=== PATIENT | male | born 1945 | race Caucasian/White ===

== ENCOUNTER 2017-01-09 11:28 | Inpatient (IN) | payer MEDICARE, OTHER ==
--- NOTE | 2017-01-09 12:08 | ED ---
General Adult HPI - General Chief complaint: Shortness of Breath Stated complaint: Diff Breathing Time Seen by Provider: 01/09/17 11:47 Source: patient, RN notes reviewed, old records reviewed Mode of arrival: ambulatory Limitations: no limitations - History of Present Illness Initial comments: 71-year-old male presents with a one-week history of cough and difficulty breathing. Patient states that he initially felt he had a cold, had nasal congestion and mildly productive cough. This is felt to improve. Patient does have history of breast pneumonia and congestive heart failure. Denies fever. Denies chest pain. Cough at this time is primarily dry. Patient does have worsening shortness of breath with activity. Denies lower extremity swelling. Denies any recent changes to his medication. He is currently taking Lasix. - Related Data Home Medications Medication Instructions Recorded Confirmed Aspirin 81 mg PO DAILY 01/04/16 01/09/17 Atorvastatin [Lipitor] 80 mg PO DAILY 01/04/16 01/09/17 Cholecalciferol [Vitamin D3] 2,000 unit PO DAILY 01/04/16 01/09/17 Desloratadine 5 mg PO DAILY 01/04/16 01/09/17 Dulaglutide [Trulicity] 1.5 mg SQ MO 01/04/16 01/09/17 Fenofibrate 160 mg PO AC-SUPPER 01/04/16 01/09/17 Ferrous Sulfate [Iron (65 MG 325 mg PO DAILY 01/04/16 01/09/17 Elemental)] Glimepiride [Amaryl] 0.5 mg PO AC-BRKFST 01/04/16 01/09/17 Krill Oil 500 mg PO DAILY 01/04/16 01/09/17 L.acidoph,Paracasei, B.lactis 1 cap PO DAILY 01/04/16 01/09/17 [Probiotic] Celecoxib [CeleBREX] 200 mg PO DAILY PRN 01/09/17 01/09/17 Insulin Lispro [humaLOG Kwikpen] 10 unit SQ AC-BID 01/09/17 01/09/17 Lisinopril [Zestril] 10 mg PO BID 01/09/17 01/09/17 Multivitamins, Thera [Multivitamin 1 tab PO DAILY 01/09/17 01/09/17 (formulary)] Previous Rx's Medication Instructions Recorded Metoprolol Tartrate [Lopressor] 25 mg PO BID #60 tab 01/07/16 Furosemide [Lasix] 20 mg PO DAILY #30 tab 01/08/16 Allergies Allergy/AdvReac Type Severity Reaction Status Date / Time No Known Allergies Allergy Verified 01/09/17 12:30 Review of Systems ROS Statement: Those systems with pertinent positive or pertinent negative responses have been documented in the HPI. ROS Other: All systems not noted in ROS Statement are negative. Past Medical History Past Medical History: Diabetes Mellitus, Eye Disorder, Hyperlipidemia, Hypertension, Osteoarthritis (OA), Pneumonia Additional Past Medical History / Comment(s): BEGINNINGS OF CATARACTS, HAYFEVER History of Any Multi-Drug Resistant Organisms: None Reported Past Surgical History: Adenoidectomy, Tonsillectomy Additional Past Surgical History / Comment(s): CARPAL TUNNEL, COLONOSCOPY Past Anesthesia/Blood Transfusion Reactions: No Reported Reaction Past Psychological History: No Psychological Hx Reported Smoking Status: Former smoker Past Alcohol Use History: Occasional Past Drug Use History: None Reported - Past Family History Father Family Medical History: Cancer, Diabetes Mellitus Additional Family Medical History / Comment(s): BLADDER CANCER Mother Family Medical History: Congestive Heart Failure (CHF) Additional Family Medical History / Comment(s): AT AGE 68 General Exam Limitations: no limitations Course Vital Signs 01/09/17 01/09/17 01/09/17 11:31 12:36 13:41 Temperature 97.1 F L Pulse Rate 81 71 68 Respiratory 22 20 20 Rate Blood Pressure 197/77 176/85 151/67 O2 Sat by Pulse 89 L 94 L 95 Oximetry EKG Findings - EKG Comments: EKG Findings:: EKG shows normal sinus rhythm, ventricular rate 75, [place] interval 208, QRS duration 96, QTC 464, no signs of ischemia Medical Decision Making - Medical Decision Making 71-year-old male presenting with worsening dyspnea. Patient does admit to orthopnea, sleeps in a reclining chair. Denies PND. On examination patient has bilateral fine rales. Signs of ischemia. Chest x-ray shows mild central venous congestion, right pleural effusion, cardiomegaly. Left from 1 year ago showed an ejection fraction 60%, there was left ventricular hypertrophy. Laboratory studies reveal elevated serum creatinine at 2.04, however this is a patient's baseline. Initial troponin is negative. BNP is 5780. Patient is given aspirin and Lasix in the emergency department. He will be admitted for further diuresis and cardiology evaluation. Diagnosis: Congestive heart failure exacerbation, chronic kidney disease - Lab Data Result diagrams: 01/09/17 12:06 01/09/17 12:06 Lab Results 01/09/17 01/09/17 01/09/17 Range/Units 12:06 12:06 12:06 WBC 6.9 (3.8-10.6) k/uL RBC 3.73 L (4.30-5.90) m/uL Hgb 11.3 L (13.0-17.5) gm/dL Hct 34.9 L (39.0-53.0) % MCV 93.6 (80.0-100.0) fL MCH 30.3 (25.0-35.0) pg MCHC 32.4 (31.0-37.0) g/dL RDW 13.9 (11.5-15.5) % Plt Count 184 (150-450) k/uL Neutrophils % 78 % Lymphocytes % 13 % Monocytes % 5 % Eosinophils % 3 % Basophils % 0 % Neutrophils # 5.4 (1.3-7.7) k/uL Lymphocytes # 0.9 L (1.0-4.8) k/uL Monocytes # 0.4 (0-1.0) k/uL Eosinophils # 0.2 (0-0.7) k/uL Basophils # 0.0 (0-0.2) k/uL PT (9.0-12.0) sec INR (<1.2) APTT (22.0-30.0) sec Sodium 143 (137-145) mmol/L Potassium 4.4 (3.5-5.1) mmol/L Chloride 105 (98-107) mmol/L Carbon Dioxide 24 (22-30) mmol/L Anion Gap 14 mmol/L BUN 47 H (9-20) mg/dL Creatinine 2.04 H (0.66-1.25) mg/dL Est GFR (MDRD) Af Amer 39 (>60 ml/min/1.73 sqM) Est GFR (MDRD) Non-Af 32 (>60 ml/min/1.73 sqM) Glucose 245 H (74-99) mg/dL Plasma Lactic Acid Guy (0.7-2.0) mmol/L Calcium 9.2 (8.4-10.2) mg/dL Magnesium 1.9 (1.6-2.3) mg/dL Total Bilirubin 1.0 (0.2-1.3) mg/dL AST 44 (17-59) U/L ALT 49 (21-72) U/L Alkaline Phosphatase 55 (38-126) U/L Total Creatine Kinase 59 (55-170) U/L CK-MB (CK-2) 1.2 (0.0-2.4) ng/mL CK-MB (CK-2) Rel Index 2.0 Troponin I 0.024 (0.000-0.034) ng/mL NT-Pro-B Natriuret Pep pg/mL Total Protein 7.0 (6.3-8.2) g/dL Albumin 4.0 (3.5-5.0) g/dL 01/09/17 01/09/17 01/09/17 Range/Units 12:06 12:06 12:06 WBC (3.8-10.6) k/uL RBC (4.30-5.90) m/uL Hgb (13.0-17.5) gm/dL Hct (39.0-53.0) % MCV (80.0-100.0) fL MCH (25.0-35.0) pg MCHC (31.0-37.0) g/dL RDW (11.5-15.5) % Plt Count (150-450) k/uL Neutrophils % % Lymphocytes % % Monocytes % % Eosinophils % % Basophils % % Neutrophils # (1.3-7.7) k/uL Lymphocytes # (1.0-4.8) k/uL Monocytes # (0-1.0) k/uL Eosinophils # (0-0.7) k/uL Basophils # (0-0.2) k/uL PT 11.8 (9.0-12.0) sec INR 1.2 H (<1.2) APTT 23.9 (22.0-30.0) sec Sodium (137-145) mmol/L Potassium (3.5-5.1) mmol/L Chloride (98-107) mmol/L Carbon Dioxide (22-30) mmol/L Anion Gap mmol/L BUN (9-20) mg/dL Creatinine (0.66-1.25) mg/dL Est GFR (MDRD) Af Amer (>60 ml/min/1.73 sqM) Est GFR (MDRD) Non-Af (>60 ml/min/1.73 sqM) Glucose (74-99) mg/dL Plasma Lactic Acid Guy 1.7 (0.7-2.0) mmol/L Calcium (8.4-10.2) mg/dL Magnesium (1.6-2.3) mg/dL Total Bilirubin (0.2-1.3) mg/dL AST (17-59) U/L ALT (21-72) U/L Alkaline Phosphatase (38-126) U/L Total Creatine Kinase (55-170) U/L CK-MB (CK-2) (0.0-2.4) ng/mL CK-MB (CK-2) Rel Index Troponin I (0.000-0.034) ng/mL NT-Pro-B Natriuret Pep 5780 pg/mL Total Protein (6.3-8.2) g/dL Albumin (3.5-5.0) g/dL Disposition Clinical Impression: Diastolic congestive heart failure Disposition: ADMITTED IP TO THIS [facility] Condition: Stable Referrals: Jordan Patel III, MD [Primary Care Provider] - 1-2 days Decision to Admit Reason: Admit from EC Decision Date: 01/09/17 Decision Time: 14:06
[2017-01-09 12:19] LABS: Basophils % (A) 0 %; CH 30.5; CHCM 32.8; Eosinophils # (A) 0.2 k/uL (0-0.7); Eosinophils % (A) 3 %; HCT 34.9 % (39.0-53.0); HDW 2.94; HGB 11.3 gm/dL (13.0-17.5); Luc # (Auto) 0.11; Luc % (Auto) 2; Lymphocytes # (A) 0.9 k/uL (1.0-4.8); Lymphocytes % (A) 13 %; MCH 30.3 pg (25.0-35.0); MCHC 32.4 g/dL (31.0-37.0); MCV 93.6 fL (80.0-100.0); Mean Platelet Volume 7.4; Monocytes # (A) 0.4 k/uL (0-1.0); Monocytes % (A) 5 %; Neutrophils # (A) 5.4 k/uL (1.3-7.7); Neutrophils % (A) 78 %; RBC 3.73 m/uL (4.30-5.90); RDW 13.9 % (11.5-15.5); WBC 6.9 k/uL (3.8-10.6); WBC (Perox) 6.97
[2017-01-09 12:35] LABS: INR 1.2 (<1.2); Partial Thromboplastin Time 23.9 sec (22.0-30.0); Prothrombin Time 11.8 sec (9.0-12.0)
[2017-01-09 12:39] LABS: Calcium 9.2 mg/dL (8.4-10.2); Magnesium 1.9 mg/dL (1.6-2.3); Potassium 4.4 mmol/L (3.5-5.1)
--- NOTE | 2017-01-09 12:55 | XR ---
EXAMINATION TYPE: XR chest 2V DATE OF EXAM: 01/09/2017 COMPARISON: 01/04/2016 TECHNIQUE: PA and lateral views submitted. HISTORY: Shortness of breath FINDINGS: Cardiomegaly and nodule in the right upper lobe are stable. Arthropathy of the shoulders. No pneumoth orax. Pleural thickening or tiny effusion suspected. Degenerative change of the spine. IMPRESSION: 1. Tiny right pleural effusion suspected with right upper lobe nodule and cardiomegaly stable in appe arance. There may be some calcification along the pericardium which can be associated with calcific p ericarditis. 2. Correlate for mild central venous congestion.
[2017-01-09 12:56] LABS: Creatine Kinase MB 1.2 ng/mL (0.0-2.4); Troponin I 0.024 ng/mL (0.000-0.034)
[2017-01-09] MEDS ORDERED: FUROSEMIDE 10 MG/ML 4 ML VIAL IV STA (13:09)
[2017-01-09] MEDS ORDERED: ASPIRIN 325 MG TAB PO STA (13:09)
[2017-01-09] MEDS ORDERED: NALOXONE 0.4 MG/ML 1 ML VIAL IV PRN (13:57)
[2017-01-09] MEDS ORDERED: ACETAMINOPHEN TAB 325 MG TAB PO PRN (13:57)
--- NOTE | 2017-01-09 17:07 | P.HPIM ---
History of Present Illness 71-year-old gentleman came in with complaints of short of breath going on about for about a week. Patient started having upper respiratory tract like symptoms since then patient the was having shortness of breath progressively worse for about a week. Patient denied any fever, chills does have cough only brings up minimal phlegm whitish in color, denied any significant orthopnea or paroxysmal nocturnal dyspnea. Although chest x-ray did not show any significant pneumonic process but did show changes consistent with pulmonary edema, patient had normal ejection fraction about any ago at that time I believe he was treated for diastolic dysfunction heart failure uses 40 mg of Lasix at home. He denied any increased swelling in the legs or recent weight gain. Patient denied any chest pain and palpitations. Patient is morbidly obese never tested for sleep apnea in the past Review of Systems REVIEW OF SYSTEMS: CONSTITUTIONAL: No fever, no malaise, no fatigue. HEENT: No recent visual problems or hearing problems. Denied any sore throat. CARDIOVASCULAR: No chest pain, orthopnea, PND, no palpitations, no syncope. PULMONARY: As mentioned in HPI GASTROINTESTINAL: No diarrhea, no nausea, no vomiting, no abdominal pain. Normoactive bowel sounds. NEUROLOGICAL: No headaches, no weakness, no numbness. HEMATOLOGICAL: Denies any bleeding or petechiae. GENITOURINARY: Denies any burning micturition, frequency, or urgency. MUSCULOSKELETAL/RHEUMATOLOGICAL: Denies any joint pain, swelling, or any muscle pain. ENDOCRINE: Denies any polyuria or polydipsia. The rest of the 14-point review of systems is negative. Past Medical History Past Medical History: Diabetes Mellitus, Eye Disorder, Hyperlipidemia, Hypertension, Osteoarthritis (OA), Pneumonia Additional Past Medical History / Comment(s): BEGINNINGS OF CATARACTS, HAYFEVER History of Any Multi-Drug Resistant Organisms: None Reported Past Surgical History: Adenoidectomy, Tonsillectomy Additional Past Surgical History / Comment(s): CARPAL TUNNEL, COLONOSCOPY, egd w /bx"neg" Past Anesthesia/Blood Transfusion Reactions: No Reported Reaction Smoking Status: Former smoker - Past Family History Father Family Medical History: Cancer, Diabetes Mellitus Additional Family Medical History / Comment(s): BLADDER CANCER Mother Family Medical History: Congestive Heart Failure (CHF) Additional Family Medical History / Comment(s): AT AGE 68 Medications and Allergies Home Medications Medication Instructions Recorded Confirmed Type Aspirin 81 mg PO DAILY 01/04/16 01/09/17 History Atorvastatin [Lipitor] 80 mg PO DAILY 01/04/16 01/09/17 History Cholecalciferol [Vitamin D3] 2,000 unit PO DAILY 01/04/16 01/09/17 History Desloratadine 5 mg PO DAILY 01/04/16 01/09/17 History Dulaglutide [Trulicity] 1.5 mg SQ MO 01/04/16 01/09/17 History Fenofibrate 160 mg PO AC-SUPPER 01/04/16 01/09/17 History Ferrous Sulfate [Iron (65 MG 325 mg PO DAILY 01/04/16 01/09/17 History Elemental)] Glimepiride [Amaryl] 0.5 mg PO AC-BRKFST 01/04/16 01/09/17 History Krill Oil 500 mg PO DAILY 01/04/16 01/09/17 History L.acidoph,Paracasei, B.lactis 1 cap PO DAILY 01/04/16 01/09/17 History [Probiotic] Metoprolol Tartrate [Lopressor] 25 mg PO BID #60 tab 01/07/16 01/09/17 Rx Furosemide [Lasix] 20 mg PO DAILY #30 tab 01/08/16 01/09/17 Rx Celecoxib [CeleBREX] 200 mg PO DAILY PRN 01/09/17 01/09/17 History Insulin Lispro [humaLOG Kwikpen] 10 unit SQ AC-BID 01/09/17 01/09/17 History Lisinopril [Zestril] 10 mg PO BID 01/09/17 01/09/17 History Multivitamins, Thera [Multivitamin 1 tab PO DAILY 01/09/17 01/09/17 History (formulary)] Allergies Allergy/AdvReac Type Severity Reaction Status Date / Time No Known Allergies Allergy Verified 01/09/17 12:30 Physical Exam Vitals: Vital Signs Temp Pulse Resp BP Pulse Ox 01/09/17 16:53 98.1 F 68 20 165/79 97 01/09/17 15:42 70 18 158/75 94 L 01/09/17 14:32 68 20 159/77 95 01/09/17 14:30 97.6 F 68 15 159/77 96 01/09/17 13:41 68 20 151/67 95 10/16/17 12:36 71 20 176/85 94 L 01/09/17 11:31 97.1 F L 81 22 197/77 89 L Intake and Output 01/09/17 01/09/17 01/09/17 06:59 14:59 22:59 Output Total 600 Balance -600 Output: Urine 600 Other: Weight 103.419 kg Patient Weight 01/10/17 06:59 Weight 103.419 kg PHYSICAL EXAMINATION: GENERAL: The patient is alert and oriented x3, not in any acute distress. Well developed, well nourished. HEENT: Pupils are round and equally reacting to light. EOMI. No scleral icterus. No conjunctival pallor. Normocephalic, atraumatic. No pharyngeal erythema. No thyromegaly. CARDIOVASCULAR: S1 and S2 present. No murmurs, rubs, or gallops. There may be an S3 arrest and S4 I did not appreciate any JVD although patient has the Contour and patient is sitting upright on the side of the bed PULMONARY: Rhonchorous breath sounds probable crackles bilaterally ABDOMEN: Soft, nontender, nondistended, normoactive bowel sounds. No palpable organomegaly. MUSCULOSKELETAL: No joint swelling or deformity. EXTREMITIES: No cyanosis, clubbing, or pedal edema. NEUROLOGICAL: Gross neurological examination did not reveal any focal deficits. SKIN: No rashes. Results CBC & Chem 7: 01/09/17 12:06 01/09/17 12:06 Labs: Abnormal Lab Results - Last 24 Hours (Table) 01/09/17 01/09/17 01/09/17 Range/Units 12:06 12:06 12:06 RBC 3.73 L (4.30-5.90) m/uL Hgb 11.3 L (13.0-17.5) gm/dL Hct 34.9 L (39.0-53.0) % Lymphocytes # 0.9 L (1.0-4.8) k/uL INR 1.2 H (<1.2) BUN 47 H (9-20) mg/dL Creatinine 2.04 H (0.66-1.25) mg/dL Glucose 245 H (74-99) mg/dL Assessment and Plan Plan: #1 acute hypoxic respiratory failure: Possibility of congestive heart failure exacerbation probably tonic diastolic dysfunction with acute exacerbation patient was started on IV Lasix which will be continued. Lisinopril will be continued as well as his kidney function appears to be chronic #2 chronic kidney disease stage III: Baseline creatinine is around 2 for about any year, patient may have a competent of acute renal dysfunction from can start failure exacerbation expected to improve with Lasix will need to monitor basic metabolic profile closely. Patient may have diabetic nephropathy. #3 type 2 diabetes mellitus: Uncontrolled blood sugars patient will be started on his home insulin regimen titrate depending on his sliding scale needs. #4 moderate obesity: Patient need to be tested for sleep apnea as an outpatient #5 hypertension #6 severe osteoarthritis For above-mentioned chronic medical problems appropriate home medications will be continued, close clinical monitoring repeat BMP tomorrow.
[2017-01-09 19:32] LABS: Creatine Kinase MB 1.2 ng/mL (0.0-2.4); Troponin I 0.034 ng/mL (0.000-0.034)
[2017-01-09] MEDS: FUROSEMIDE 10 MG/ML 4 ML VIAL IV SCH (20:53)
[2017-01-09] MEDS: METOPROLOL TARTRATE 25 MG TAB PO SCH (20:54)
[2017-01-09] MEDS: FENOFIBRATE 160 MG TAB PO SCH (20:54)
[2017-01-09] MEDS: LISINOPRIL 10 MG TAB PO SCH (20:54)
[2017-01-09 20:57] LABS: Glucose,Whole Blood 154 mg/dL (75-99)
[2017-01-09] MEDS: INSULIN LISPRO (humaLOG) 300 UNIT/3 ML VIAL SQ SCH (23:40)
[2017-01-10 00:22] LABS: Creatine Kinase MB 1.3 ng/mL (0.0-2.4); Troponin I 0.034 ng/mL (0.000-0.034)
[2017-01-10 06:10] LABS: Glucose,Whole Blood 125 mg/dL (75-99)
[2017-01-10 06:46] LABS: Basophils % (A) 1 %; CH 30.4; CHCM 32.6; Eosinophils # (A) 0.5 k/uL (0-0.7); Eosinophils % (A) 7 %; HCT 35.5 % (39.0-53.0); HDW 2.92; HGB 11.4 gm/dL (13.0-17.5); Luc % (Auto) 1; Lymphocytes # (A) 1.4 k/uL (1.0-4.8); Lymphocytes % (A) 19 %; MCH 30.2 pg (25.0-35.0); MCHC 32.2 g/dL (31.0-37.0); MCV 93.9 fL (80.0-100.0); Mean Platelet Volume 7.2; Monocytes # (A) 0.4 k/uL (0-1.0); Monocytes % (A) 6 %; Neutrophils # (A) 4.9 k/uL (1.3-7.7); Neutrophils % (A) 67 %; RBC 3.78 m/uL (4.30-5.90); WBC 7.3 k/uL (3.8-10.6); WBC (Perox) 7.25
[2017-01-10 07:08] LABS: Calcium 9.5 mg/dL (8.4-10.2); Potassium 4.1 mmol/L (3.5-5.1); Total Bilirubin 0.9 mg/dL (0.2-1.3); Total Protein 7.2 g/dL (6.3-8.2)
[2017-01-10] MEDS: ASPIRIN 81 MG PO SCH (08:06)
[2017-01-10] MEDS: METOPROLOL TARTRATE 25 MG TAB PO SCH ×2 (08:06→20:50)
[2017-01-10] MEDS: ATORVASTATIN 80 MG TAB PO SCH (08:06)
[2017-01-10] MEDS: LISINOPRIL 10 MG TAB PO SCH ×2 (08:06→20:50)
[2017-01-10] MEDS: FUROSEMIDE 10 MG/ML 4 ML VIAL IV SCH ×2 (08:07→17:02)
[2017-01-10] MEDS: INSULIN LISPRO (humaLOG) 300 UNIT/3 ML VIAL SQ SCH ×2 (08:07→17:02)
--- NOTE | 2017-01-10 10:57 | ECHOF ---
Referral Reason:CHF MEASUREMENTS -------- HEIGHT: 167.6 cm WEIGHT: 99.8 kg BP: 148/76 RVIDd: 3.7 cm (< 3.3) IVSd: 1.3 cm (0.6 - 1.1) LVIDd: 4.7 cm (3.9 - 5.3) LVPWd: 1.3 cm (0.6 - 1.1) IVSs: 2.0 cm LVIDs: 3.2 cm LVPWs: 1.9 cm LA Diam: 4.5 cm (2.7 - 3.8) LAESV Index (A-L): 62.79 ml/m Ao Diam: 3.2 cm (2.0 - 3.7) AV Cusp: 1.9 cm (1.5 - 2.6) MV E Hunter: 1.76 m/s MV DecT: 361 ms MV A Hunter: 1.20 m/s MV E/A Ratio: 1.47 AV maxP.27 mmHg AV meanP.73 mmHg AR PHT: 554 ms RAP: 5.00 mmHg RVSP: 72.43 mmHg FINDINGS -------- Sinus rhythm. This was a technically good study. The left ventricular size is normal. There is mild concentric left ventricular hypertrophy. Overall left ventricular systolic function is normal with, an EF between 55 - 60 %. The right ventricle is mildly enlarged. LA is severely dilated >40 ml/m2 The right atrium is normal in size. There is moderate aortic valve sclerosis. There is mild aortic regurgitation. There is mild aortic stenosis present. Peak/mean gradient across the Aortic Valve is 16.27mmHg / 7.73mmHg. The mitral valve leaflets are moderately thickened. Moderate mitral annular calcification present. Mild mitral regurgitation is present. The peak and mean MV gradients are 16.13mmHg 5.13mmHg as measured by doppler. Mild mitral stenosis. [id number] tricuspid regurgitation present. There is severe pulmonary hypertension. The right ventricular systolic pressure, as measured by Doppler, is 72.43mmHg. The pulmonic valve was not well visualized. The aortic root size is normal. IVC Not well visulized. There is no pericardial effusion. CONCLUSIONS -------- 1. Sinus rhythm. 2. There is mild aortic regurgitation. 3. There is mild aortic stenosis present. 4. Peak/mean gradient across the Aortic Valve is 16.27mmHg / 7.73mmHg. 5. The mitral valve leaflets are moderately thickened. 6. Moderate mitral annular calcification present. 7. Mild mitral regurgitation is present. 8. The peak and mean MV gradients are 16.13mmHg 5.13mmHg as measured by doppler. 9. Mild mitral stenosis. 10. [id number] tricuspid regurgitation present. 11. There is severe pulmonary hypertension. 12. This was a technically good study. 13. The right ventricular systolic pressure, as measured by Doppler, is 72.43mmHg. 14. The pulmonic valve was not well visualized. 15. The aortic root size is normal. 16. IVC Not well visulized. 17. There is no pericardial effusion. 18. The left ventricular size is normal. 19. There is mild concentric left ventricular hypertrophy. 20. Overall left ventricular systolic function is normal with, an EF between 55 - 60 %. 21. The right ventricle is mildly enlarged. 22. LA is severely dilated >40 ml/m2 23. The right atrium is normal in size. 24. There is moderate aortic valve sclerosis. BLANCHARD GRINDER OPERATOR: Vivian Sims RDCS
--- NOTE | 2017-01-10 11:19 | P.CRDCN ---
History of Present Illness Consult date: 01/10/17 Requesting physician: Candido Do Consult reason: congestive heart failure Chief complaint: Shortness of breath History of present illness: This is a 71-year-old gentleman who follows with Dr. Deng in the office, he has a known history of hypertension, diabetes, hyperlipidemia, renal insufficiency, congestive heart failure, he presents to the hospital with symptoms of progressively worsening shortness of breath. Patient states that since last Monday, he initially felt as though he may be developing a pneumonia , he was short of breath and had a nonproductive cough similar to his presentation with pneumonia in the past. Symptoms progressively worsened, patient states he was sleeping in his lazy boy chair because he could not breathe when he would lie flat. He also states that walking out to his mailbox he would become extremely short of breath. He noticed increased swelling in his abdomen, not so much edema in his legs. Patient's last visit to the hospital was in December 2015 at which time he was seen in consultation by Dr. Deng an echocardiogram with Doppler study was performed on that visit which revealed an ejection fraction of 60-65%, moderate concentric LVH. Chest x-ray on admission here revealed mild central venous congestion, tiny right pleural effusion with suspected right upper lobe nodule, cardiomegaly. EKG shows a normal sinus rhythm with no acute changes. Echocardiogram with Doppler study performed here revealed an ejection fraction of 55-60%, Left atrium is severely dilated, mild to moderate tricuspid regurg, severe pulmonary hypertension. White blood cell count 7.3, hemoglobin 11.4, platelet count 223. Sodium 141, potassium 4.1, BUN 45, creatinine 2.1. Magnesium level I.9, troponins 0.024, 0.034, 0.034. BNP level 5780. Blood pressure on arrival here 197/77 with a heart rate in the 80s, 89% on room air. Blood pressure this morning 156/60 with a heart rate in the 60s, temperature 98.8, 94% on 2 L of oxygen. Past Medical History Past Medical History: Diabetes Mellitus, Eye Disorder, Hyperlipidemia, Hypertension, Osteoarthritis (OA), Pneumonia Additional Past Medical History / Comment(s): BEGINNINGS OF CATARACTS, HAYFEVER History of Any Multi-Drug Resistant Organisms: None Reported Past Surgical History: Adenoidectomy, Tonsillectomy Additional Past Surgical History / Comment(s): CARPAL TUNNEL, COLONOSCOPY, egd w /bx"neg" Past Anesthesia/Blood Transfusion Reactions: No Reported Reaction Smoking Status: Former smoker - Past Family History Father Family Medical History: Cancer, Diabetes Mellitus Additional Family Medical History / Comment(s): BLADDER CANCER Mother Family Medical History: Congestive Heart Failure (CHF) Additional Family Medical History / Comment(s): AT AGE 68 Medications and Allergies Home Medications Medication Instructions Recorded Confirmed Type Aspirin 81 mg PO DAILY 01/04/16 01/09/17 History Atorvastatin [Lipitor] 80 mg PO DAILY 01/04/16 01/09/17 History Cholecalciferol [Vitamin D3] 2,000 unit PO DAILY 01/04/16 01/09/17 History Desloratadine 5 mg PO DAILY 01/04/16 01/09/17 History Dulaglutide [Trulicity] 1.5 mg SQ MO 01/04/16 01/09/17 History Fenofibrate 160 mg PO AC-SUPPER 01/04/16 01/09/17 History Ferrous Sulfate [Iron (65 MG 325 mg PO DAILY 01/04/16 01/09/17 History Elemental)] Glimepiride [Amaryl] 0.5 mg PO AC-BRKFST 01/04/16 01/09/17 History Krill Oil 500 mg PO DAILY 01/04/16 01/09/17 History L.acidoph,Paracasei, B.lactis 1 cap PO DAILY 01/04/16 01/09/17 History [Probiotic] Metoprolol Tartrate [Lopressor] 25 mg PO BID #60 tab 01/07/16 01/09/17 Rx Furosemide [Lasix] 20 mg PO DAILY #30 tab 01/08/16 01/09/17 Rx Celecoxib [CeleBREX] 200 mg PO DAILY PRN 01/09/17 01/09/17 History Insulin Lispro [humaLOG Kwikpen] 10 unit SQ AC-BID 01/09/17 01/09/17 History Lisinopril [Zestril] 10 mg PO BID 01/09/17 01/09/17 History Multivitamins, Thera [Multivitamin 1 tab PO DAILY 01/09/17 01/09/17 History (formulary)] Allergies Allergy/AdvReac Type Severity Reaction Status Date / Time No Known Allergies Allergy Verified 01/09/17 12:30 Physical Exam Vitals: Vital Signs Temp Pulse Pulse Pulse Resp BP BP 01/10/17 08:00 98.8 F 66 18 157/66 01/10/17 04:00 96.3 F L 67 18 148/76 01/10/17 00:00 96.9 F L 70 75 18 184/82 01/09/17 20:16 98.5 F 75 75 18 178/85 01/09/17 19:05 98.5 F 71 18 166/75 01/09/17 18:15 72 18 154/73 01/09/17 16:53 98.1 F 68 20 165/79 01/09/17 15:42 70 18 158/75 01/09/17 14:32 68 20 159/77 01/09/17 14:30 97.6 F 68 15 159/77 01/09/17 13:41 68 20 151/67 01/09/17 12:36 71 20 176/85 01/09/17 11:31 97.1 F L 81 22 197/77 Pulse Ox 01/10/17 08:00 94 L 01/10/17 04:00 92 L 01/10/17 00:00 96 01/09/17 20:16 95 01/09/17 19:05 96 01/09/17 18:15 95 01/09/17 16:53 97 01/09/17 15:42 94 L 01/09/17 14:32 95 01/09/17 14:30 96 01/09/17 13:41 95 01/09/17 12:36 94 L 01/09/17 11:31 89 L Intake and Output 01/09/17 01/10/17 01/10/17 22:59 06:59 14:59 Intake Total 200 Output Total 600 1650 Balance -600 -1650 200 Intake: Oral 200 Output: Urine 600 1650 Other: Voiding Method Urinal Urinal # Voids 1 1 Weight 100.1 kg PHYSICAL EXAMINATION: HEENT: Head is atraumatic, normocephalic. Pupils equal, round. Neck is supple. There is elevated jugular venous pressure. HEART EXAMINATION: Heart S1 and S2 systolic murmur is heard. CHEST EXAMINATION: Lungs reveal diminished air entry to bilateral bases ABDOMEN: Firm, mildly distended, . Bowel sounds are heard. No organomegaly noted. EXTREMITIES: 2+ peripheral pulses with trace evidence of peripheral edema and no calf tenderness noted. NEUROLOGIC patient is awake, alert and oriented -3. . Results 01/10/17 06:30 01/10/17 06:30 Cardiac Enzymes 01/09/17 01/09/17 01/09/17 Range/Units 12:06 12:06 18:19 AST 44 (17-59) U/L CK-MB (CK-2) 1.2 1.2 (0.0-2.4) ng/mL Troponin I 0.024 0.034 (0.000-0.034) ng/mL 01/09/17 01/10/17 Range/Units 23:27 06:30 AST 35 (17-59) U/L CK-MB (CK-2) 1.3 (0.0-2.4) ng/mL Troponin I 0.034 (0.000-0.034) ng/mL Coagulation 01/09/17 Range/Units 12:06 PT 11.8 (9.0-12.0) sec APTT 23.9 (22.0-30.0) sec CBC 01/09/17 01/10/17 Range/Units 12:06 06:30 WBC 6.9 7.3 (3.8-10.6) k/uL RBC 3.73 L 3.78 L (4.30-5.90) m/uL Hgb 11.3 L 11.4 L (13.0-17.5) gm/dL Hct 34.9 L 35.5 L (39.0-53.0) % Plt Count 184 223 (150-450) k/uL Comprehensive Metabolic Panel 01/09/17 01/10/17 Range/Units 12:06 06:30 Sodium 143 141 (137-145) mmol/L Potassium 4.4 4.1 (3.5-5.1) mmol/L Chloride 105 102 (98-107) mmol/L Carbon Dioxide 24 23 (22-30) mmol/L BUN 47 H 45 H (9-20) mg/dL Creatinine 2.04 H 2.13 H (0.66-1.25) mg/dL Glucose 245 H 122 H (74-99) mg/dL Calcium 9.2 9.5 (8.4-10.2) mg/dL AST 44 35 (17-59) U/L ALT 49 50 (21-72) U/L Alkaline Phosphatase 55 53 (38-126) U/L Total Protein 7.0 7.2 (6.3-8.2) g/dL Albumin 4.0 4.1 (3.5-5.0) g/dL Current Medications Generic Name Dose Route Start Last Admin Trade Name Freq PRN Reason Stop Dose Admin Acetaminophen 650 mg 01/09/17 13:57 Tylenol Tab PO Q6HR PRN Mild Pain or Fever > 100.5 Aspirin 81 mg 01/10/17 09:00 01/10/17 08:06 Aspirin PO 81 mg DAILY JAIME Administration Atorvastatin Calcium 80 mg 01/10/17 09:00 01/10/17 08:06 Lipitor PO 80 mg DAILY JAIME Administration Fenofibrate 160 mg 01/09/17 17:30 01/09/17 20:54 Lofibra PO 160 mg AC-SUPPER JAIME Administration Ferrous Sulfate 325 mg 01/10/17 12:00 Feosol PO 1200 JAIME Furosemide 40 mg 01/09/17 21:00 01/10/17 08:07 Lasix IV 40 mg Q12HR JAIME Administration Insulin Human Lispro 10 unit 01/09/17 17:30 01/10/17 08:07 Humalog SQ 10 unit AC-BID JAIME Administration Lisinopril 10 mg 01/09/17 21:00 01/10/17 08:06 Zestril PO 10 mg BID JAIME Administration Metoprolol Tartrate 25 mg 01/09/17 21:00 01/10/17 08:06 Lopressor PO 25 mg BID JAIME Administration Naloxone HCl 0.2 mg 01/09/17 13:57 Narcan IV Q2M PRN Opioid Reversal Non-Formulary Medication 1.5 mg 01/09/17 16:30 Dulaglutide [Trulicity] SQ MO JAIME Intake and Output 01/09/17 01/10/17 01/10/17 22:59 06:59 14:59 Intake Total 200 Output Total 600 1650 Balance -600 -1650 200 Intake: Oral 200 Output: Urine 600 1650 Other: Voiding Method Urinal Urinal # Voids 1 1 Weight 100.1 kg 01/10/17 06:30 01/10/17 06:30 EKG Interpretations (text) EKG shows a normal sinus rhythm with no acute changes. Assessment and Plan Plan: Assessment and plan #1 diastolic congestive heart failure acute on chronic, currently on IV Lasix #2 hypertension, blood pressure 150/70. #3 diabetes #4 hyperlipidemia #5 chronic kidney failure Plan Echocardiogram with Doppler study repeated here this admission shows mild to moderate tricuspid regurgitation, severe pulmonary hypertension, ejection fraction 55-60%. We will continue current dose of IV Lasix. Continue lisinopril and metoprolol tartrate. 10 you to monitor intake and output along with daily weights. Further recommendations to follow. DNP note has been reviewed, I agree with a documented findings and plan of care. Patient was seen and examined.
[2017-01-10] MEDS: FERROUS SULFATE 325 MG TAB PO SCH (11:30)
[2017-01-10 11:31] VITALS: BMI 35.6
[2017-01-10 12:01] LABS: Glucose,Whole Blood 83 mg/dL (75-99)
[2017-01-10] MEDS ORDERED: IPRATROPIUM-ALBUTEROL 3 ML NEB INHALATION PRN (14:22)
[2017-01-10 16:31] LABS: Glucose,Whole Blood 167 mg/dL (75-99)
[2017-01-10] MEDS ORDERED: FUROSEMIDE 40 MG TAB PO SCH (17:00)
[2017-01-10] MEDS: FENOFIBRATE 160 MG TAB PO SCH (17:02)
[2017-01-10 21:03] LABS: Glucose,Whole Blood 166 mg/dL (75-99)
--- NOTE | 2017-01-10 23:42 | P.PN ---
Subjective Progress Note Date: 01/10/17 Principal diagnosis: Acute CHF exacerbation 71-year-old gentleman came in with complaints of short of breath going on about for about a week. Patient started having upper respiratory tract like symptoms since then patient the was having shortness of breath progressively worse for about a week. Patient denied any fever, chills does have cough only brings up minimal phlegm whitish in color, denied any significant orthopnea or paroxysmal nocturnal dyspnea. Although chest x-ray did not show any significant pneumonic process but did show changes consistent with pulmonary edema, patient had normal ejection fraction about any ago at that time I believe he was treated for diastolic dysfunction heart failure uses 40 mg of Lasix at home. He denied any increased swelling in the legs or recent weight gain. Patient denied any chest pain and palpitations. Patient is morbidly obese never tested for sleep apnea in the past. 01/10/2017 Patient is being dosed with IV Lasix. Shortness of breath slightly improved. No complaints of chest pain today. No nausea vomiting or abdominal pain. No fever no chills. No acute overnight issues. 2-D echo showed normal ejection fraction and mild to moderate tricuspid regurgitation and severe pulmonary hypertension All other review of systems negative except the above Current medications reviewed Objective - Vital Signs Vital signs: Vital Signs Temp 97.8 F 01/10/17 11:35 Pulse 64 01/10/17 16:00 Resp 18 01/10/17 16:00 BP 141/65 01/10/17 16:00 Pulse Ox 97 01/10/17 16:00 Intake & Output 01/10/17 01/10/17 01/11/17 06:59 18:59 06:59 Intake Total 690 Output Total 1650 1925 900 Balance -1650 -1235 -900 Weight 100.1 kg 100.1 kg Intake: Oral 690 Output: Urine 1650 1925 900 Other: Voiding Method Urinal # Voids 1 1 1 - Exam PHYSICAL EXAMINATION: Patient is lying in the bed comfortably, no acute distress, awake alert and oriented.. HEENT: Normocephalic. Neck is supple. Pupils reactive. Nostrils clear. Oral cavity is moist. Ears reveal no drainage. Neck reveals no JVD, carotid bruits, or thyromegaly. CHEST EXAMINATION: Trachea is central. Symmetrical expansion. Bilateral rhonchi positive. Expiratory wheezing positive. CARDIAC: Normal S1, S2 with no gallops. No murmurs ABDOMEN: Soft. Bowel sounds normal. No organomegaly. No abdominal bruits. Extremities: reveal no edema. No clubbing or cyanosis Neurologically awake, alert, oriented x3 with well-coordinated movements. No focal deficits noted Skin: No rash or skin lesions. Psychiatric: Operative. Nonsuicidal Musculoskeletal: No joint swelling or deformity. Normal range of motion. - Labs CBC & Chem 7: 01/10/17 06:30 01/10/17 06:30 Labs: Abnormal Lab Results - Last 24 Hours (Table) 01/10/17 01/10/17 01/10/17 Range/Units 06:08 06:30 06:30 RBC 3.78 L (4.30-5.90) m/uL Hgb 11.4 L (13.0-17.5) gm/dL Hct 35.5 L (39.0-53.0) % BUN 45 H (9-20) mg/dL Creatinine 2.13 H (0.66-1.25) mg/dL Glucose 122 H (74-99) mg/dL POC Glucose (mg/dL) 125 H (75-99) mg/dL 01/10/17 01/10/17 Range/Units 16:24 21:02 RBC (4.30-5.90) m/uL Hgb (13.0-17.5) gm/dL Hct (39.0-53.0) % BUN (9-20) mg/dL Creatinine (0.66-1.25) mg/dL Glucose (74-99) mg/dL POC Glucose (mg/dL) 167 H 166 H (75-99) mg/dL Microbiology - Last 24 Hours (Table) 01/09/17 12:06 Blood Culture - Preliminary Blood No Growth after 24 hours Assessment and Plan Assessment: #1 acute hypoxic respiratory failure likely due to acute on chronic CHF with diastolic dysfunction. patient was started on IV Lasix which will be continued. #2 chronic kidney disease stage III: Baseline creatinine is around 2 for about any year, patient may have a competent of acute renal dysfunction from can start failure exacerbation expected to improve with Lasix will need to monitor basic metabolic profile closely. Patient may have diabetic nephropathy. #3 type 2 diabetes mellitus: Uncontrolled blood sugars patient will be started on his home insulin regimen titrate depending on his sliding scale needs. #4 moderate obesity: Patient need to be tested for sleep apnea as an outpatient #5 hypertension #6 severe osteoarthritis #7 Severe pulmonary hypertension #8 Mild to moderate tricuspid regurgitation Plan: Patient will be continued on IV diuresis and continue with DuoNeb for bronchospasm. Patient denied any history of COPD. Continue to follow renal function. Cardiology is on board. Further recommendations based on the clinical course. Time with Patient: Greater than 30
[2017-01-11 06:17] LABS: Glucose,Whole Blood 145 mg/dL (75-99)
[2017-01-11 06:41] LABS: Calcium 9.4 mg/dL (8.4-10.2); Potassium 4.5 mmol/L (3.5-5.1)
[2017-01-11] MEDS: INSULIN LISPRO (humaLOG) 300 UNIT/3 ML VIAL SQ SCH ×2 (07:11→17:47)
[2017-01-11] MEDS: ASPIRIN 81 MG PO SCH (09:01)
[2017-01-11] MEDS: ATORVASTATIN 80 MG TAB PO SCH (09:01)
[2017-01-11] MEDS: FUROSEMIDE 10 MG/ML 4 ML VIAL IV SCH ×2 (09:01→15:54)
[2017-01-11] MEDS: LISINOPRIL 10 MG TAB PO SCH ×2 (09:01→19:59)
[2017-01-11] MEDS: METOPROLOL TARTRATE 25 MG TAB PO SCH ×2 (09:01→19:59)
[2017-01-11] MEDS: FERROUS SULFATE 325 MG TAB PO SCH (09:04)
[2017-01-11] MEDS: LORATADINE 10 MG TAB PO SCH (13:39)
--- NOTE | 2017-01-11 16:20 | P.PN ---
Subjective Progress Note Date: 01/11/17 Principal diagnosis: This is a 71-year-old gentleman who follows with Dr. Deng in the office, he has a known history of hypertension, diabetes, hyperlipidemia, renal insufficiency, congestive heart failure, he presents to the hospital with symptoms of progressively worsening shortness of breath. Patient states that since last Monday, he initially felt as though he may be developing a pneumonia , he was short of breath and had a nonproductive cough similar to his presentation with pneumonia in the past. Symptoms progressively worsened, patient states he was sleeping in his lazy boy chair because he could not breathe when he would lie flat. He also states that walking out to his mailbox he would become extremely short of breath. He noticed increased swelling in his abdomen, not so much edema in his legs. Patient's last visit to the hospital was in December 2015 at which time he was seen in consultation by Dr. Deng an echocardiogram with Doppler study was performed on that visit which revealed an ejection fraction of 60-65%, moderate concentric LVH. Chest x-ray on admission here revealed mild central venous congestion, tiny right pleural effusion with suspected right upper lobe nodule, cardiomegaly. EKG shows a normal sinus rhythm with no acute changes. Echocardiogram with Doppler study performed here revealed an ejection fraction of 55-60%, Left atrium is severely dilated, mild to moderate tricuspid regurg, severe pulmonary hypertension. White blood cell count 7.3, hemoglobin 11.4, platelet count 223. Sodium 141, potassium 4.1, BUN 45, creatinine 2.1. Magnesium level I.9, troponins 0.024, 0.034, 0.034. BNP level 5780. Blood pressure on arrival here 197/77 with a heart rate in the 80s, 89% on room air. Blood pressure this morning 156/60 with a heart rate in the 60s, temperature 98.8, 94% on 2 L of oxygen. 01/11/2017 Patient seen and examined this morning, feeling much better overall. Sitting up in the chair at bedside. BUN 49, creatinine 2.2, potassium 4.5. Continues to be on IV Lasix. Objective - Vital Signs Vital signs: Vital Signs Temp 97.2 F L 01/11/17 15:45 Pulse 70 01/11/17 15:45 Resp 16 01/11/17 15:45 BP 127/63 01/11/17 15:45 Pulse Ox 99 01/11/17 15:45 Intake & Output 01/10/17 01/11/17 01/11/17 18:59 06:59 18:59 Intake Total 690 1200 Output Total 1925 2600 450 Balance -1235 -2600 750 Weight 100.1 kg 98.8 kg Intake: Oral 690 1200 Output: Urine 192 2600 450 Other: Voiding Method Urinal Urinal # Voids 1 1 3 - Exam PHYSICAL EXAMINATION: HEENT: Head is atraumatic, normocephalic. Pupils equal, round. Neck is supple. There is elevated jugular venous pressure. HEART EXAMINATION: Heart S1 and S2 systolic murmur is heard. CHEST EXAMINATION: Lungs reveal diminished air entry to bilateral bases ABDOMEN: Firm, mildly distended, . Bowel sounds are heard. No organomegaly noted. EXTREMITIES: 2+ peripheral pulses with trace evidence of peripheral edema and no calf tenderness noted. NEUROLOGIC patient is awake, alert and oriented -3. . - Labs CBC & Chem 7: 01/10/17 06:30 01/11/17 06:12 Labs: Abnormal Lab Results - Last 24 Hours (Table) 01/10/17 01/10/17 01/11/17 Range/Units 16:24 21:02 06:12 BUN 49 H (9-20) mg/dL Creatinine 2.23 H (0.66-1.25) mg/dL Glucose 147 H (74-99) mg/dL POC Glucose (mg/dL) 167 H 166 H (75-99) mg/dL 01/11/17 Range/Units 06:15 BUN (9-20) mg/dL Creatinine (0.66-1.25) mg/dL Glucose (74-99) mg/dL POC Glucose (mg/dL) 145 H (75-99) mg/dL Microbiology - Last 24 Hours (Table) 01/09/17 12:06 Blood Culture - Preliminary Blood No Growth after 48 hours Assessment and Plan Plan: Assessment and plan #1 diastolic congestive heart failure acute on chronic, currently on IV Lasix #2 hypertension, blood pressure 150/70. #3 diabetes #4 hyperlipidemia #5 chronic kidney failure Plan Echocardiogram with Doppler study repeated here this admission shows mild to moderate tricuspid regurgitation, severe pulmonary hypertension, ejection fraction 55-60%. We will continue current dose of IV Lasix. Continue lisinopril and metoprolol tartrate. Continue to monitor intake and output along with daily weights. Further recommendations to follow. DNP note has been reviewed, I agree with a documented findings and plan of care. Patient was seen and examined.
[2017-01-11 16:35] LABS: Glucose,Whole Blood 186 mg/dL (75-99)
[2017-01-11] MEDS: FENOFIBRATE 160 MG TAB PO SCH (17:47)
[2017-01-11 20:54] LABS: Glucose,Whole Blood 179 mg/dL (75-99)
--- NOTE | 2017-01-12 00:06 | P.PN ---
Subjective Progress Note Date: 01/11/17 Principal diagnosis: Acute CHF exacerbation 71-year-old gentleman came in with complaints of short of breath going on about for about a week. Patient started having upper respiratory tract like symptoms since then patient the was having shortness of breath progressively worse for about a week. Patient denied any fever, chills does have cough only brings up minimal phlegm whitish in color, denied any significant orthopnea or paroxysmal nocturnal dyspnea. Although chest x-ray did not show any significant pneumonic process but did show changes consistent with pulmonary edema, patient had normal ejection fraction about any ago at that time I believe he was treated for diastolic dysfunction heart failure uses 40 mg of Lasix at home. He denied any increased swelling in the legs or recent weight gain. Patient denied any chest pain and palpitations. Patient is morbidly obese never tested for sleep apnea in the past. 01/10/2017 Patient is being dosed with IV Lasix. Shortness of breath slightly improved. No complaints of chest pain today. No nausea vomiting or abdominal pain. No fever no chills. No acute overnight issues. 2-D echo showed normal ejection fraction and mild to moderate tricuspid regurgitation and severe pulmonary hypertension 01/11/2017 Patient says that his breathing is slightly improved compared to yesterday. Continues to be on IV Lasix. No nausea vomiting or abdominal pain. Tolerating oral diet. No acute overnight issues. All other review of systems negative except the above Current medications reviewed Objective - Vital Signs Vital signs: Vital Signs Temp 97.4 F L 01/11/17 20:00 Pulse 76 01/11/17 20:00 Resp 16 01/11/17 20:00 BP 116/55 01/11/17 20:00 Pulse Ox 100 01/11/17 20:00 Intake & Output 01/11/17 01/11/17 01/12/17 06:59 18:59 06:59 Intake Total 1200 Output Total 2600 450 600 Balance -2600 750 -600 Weight 98.8 kg Intake: Oral 1200 Output: Urine 2600 450 600 Other: Voiding Method Urinal Urinal Toilet Urinal # Voids 1 3 1 - Exam PHYSICAL EXAMINATION: Patient is lying in the bed comfortably, no acute distress, awake alert and oriented.. HEENT: Normocephalic. Neck is supple. Pupils reactive. Nostrils clear. Oral cavity is moist. Ears reveal no drainage. Neck reveals no JVD, carotid bruits, or thyromegaly. CHEST EXAMINATION: Trachea is central. Symmetrical expansion. Bilateral air entry improved. Decreased breath sounds basally. CARDIAC: Normal S1, S2 with no gallops. No murmurs ABDOMEN: Soft. Bowel sounds normal. No organomegaly. No abdominal bruits. Extremities: reveal no edema. No clubbing or cyanosis Neurologically awake, alert, oriented x3 with well-coordinated movements. No focal deficits noted Skin: No rash or skin lesions. Psychiatric: Operative. Nonsuicidal Musculoskeletal: No joint swelling or deformity. Normal range of motion. - Labs CBC & Chem 7: 01/10/17 06:30 01/11/17 06:12 Labs: Abnormal Lab Results - Last 24 Hours (Table) 01/11/17 01/11/17 01/11/17 Range/Units 06:12 06:15 16:21 BUN 49 H (9-20) mg/dL Creatinine 2.23 H (0.66-1.25) mg/dL Glucose 147 H (74-99) mg/dL POC Glucose (mg/dL) 145 H 186 H (75-99) mg/dL 01/11/17 Range/Units 20:52 BUN (9-20) mg/dL Creatinine (0.66-1.25) mg/dL Glucose (74-99) mg/dL POC Glucose (mg/dL) 179 H (75-99) mg/dL Microbiology - Last 24 Hours (Table) 01/09/17 12:06 Blood Culture - Preliminary Blood No Growth after 48 hours Assessment and Plan Assessment: #1 acute hypoxic respiratory failure likely due to acute on chronic CHF with diastolic dysfunction. patient was started on IV Lasix which will be continued. #2 chronic kidney disease stage III: Baseline creatinine is around 2 for about any year, patient may have a competent of acute renal dysfunction from can start failure exacerbation expected to improve with Lasix will need to monitor basic metabolic profile closely. Patient may have diabetic nephropathy. #3 type 2 diabetes mellitus: Uncontrolled blood sugars patient will be started on his home insulin regimen titrate depending on his sliding scale needs. #4 moderate obesity: Patient need to be tested for sleep apnea as an outpatient #5 hypertension #6 severe osteoarthritis #7 Severe pulmonary hypertension #8 Mild to moderate tricuspid regurgitation Plan: Patient will be continued on IV diuresis and continue with DuoNeb for bronchospasm. Patient denied any history of COPD. Continue to follow renal function. Cardiology is on board. Further recommendations based on the clinical course.
[2017-01-12 05:45] LABS: Glucose,Whole Blood 152 mg/dL (75-99)
[2017-01-12 06:37] LABS: Basophils # (A) 0.1 k/uL (0-0.2); Basophils % (A) 1 %; CH 30.3; CHCM 32.3; Eosinophils # (A) 0.6 k/uL (0-0.7); Eosinophils % (A) 8 %; HCT 38.8 % (39.0-53.0); HDW 2.92; HGB 12.4 gm/dL (13.0-17.5); Hypochromasia Slight; Luc # (Auto) 0.15; Luc % (Auto) 2; Lymphocytes # (A) 1.7 k/uL (1.0-4.8); Lymphocytes % (A) 25 %; MCH 30.1 pg (25.0-35.0); MCHC 31.9 g/dL (31.0-37.0); MCV 94.3 fL (80.0-100.0); Monocytes # (A) 0.6 k/uL (0-1.0); Monocytes % (A) 9 %; Neutrophils # (A) 3.8 k/uL (1.3-7.7); Neutrophils % (A) 55 %; RBC 4.12 m/uL (4.30-5.90); RDW 13.9 % (11.5-15.5); WBC 6.9 k/uL (3.8-10.6); WBC (Perox) 6.87
[2017-01-12] MEDS: INSULIN LISPRO (humaLOG) 300 UNIT/3 ML VIAL SQ SCH ×2 (06:56→17:21)
[2017-01-12 07:31] LABS: Calcium 8.9 mg/dL (8.4-10.2); Potassium 4.2 mmol/L (3.5-5.1)
[2017-01-12] MEDS: METOPROLOL TARTRATE 25 MG TAB PO SCH ×2 (09:06→22:02)
[2017-01-12] MEDS: ATORVASTATIN 80 MG TAB PO SCH (09:06)
[2017-01-12] MEDS: ASPIRIN 81 MG PO SCH (09:06)
[2017-01-12] MEDS: LORATADINE 10 MG TAB PO SCH (09:06)
[2017-01-12 11:52] LABS: Glucose,Whole Blood 75 mg/dL (75-99)
[2017-01-12 11:52] LABS: Glucose,Whole Blood 88 mg/dL (75-99)
[2017-01-12] MEDS: LISINOPRIL 10 MG TAB PO SCH (12:22)
[2017-01-12] MEDS: FUROSEMIDE 10 MG/ML 4 ML VIAL IV SCH (12:22)
[2017-01-12] MEDS: FERROUS SULFATE 325 MG TAB PO SCH (12:25)
--- NOTE | 2017-01-12 14:39 | XR ---
EXAMINATION TYPE: XR chest 2V DATE OF EXAM: 01/12/2017 COMPARISON: 01/09/[address] 01/05/2016. HISTORY: 71-year-old male follow-up CHF TECHNIQUE: Frontal and lateral views FINDINGS: Heart is upper limits of normal in size. There is mild residual interstitial appearance but improved from 01/09/2017. Pulmonary nodule in the peripheral right upper lobe is unchanged compatible with a c alcified pleural plaque seen on CT chest of 01/05/2016. No consolidation or pleural effusion. IMPRESSION: Interval resolution of patient's previous pulmonary vascular congestion. No acute cardiopulmonary pro cess.
--- NOTE | 2017-01-12 14:43 | P.PN ---
Subjective Progress Note Date: 01/12/17 Principal diagnosis: This is a 71-year-old gentleman who follows with Dr. Deng in the office, he has a known history of hypertension, diabetes, hyperlipidemia, renal insufficiency, congestive heart failure, he presents to the hospital with symptoms of progressively worsening shortness of breath. Patient states that since last Monday, he initially felt as though he may be developing a pneumonia , he was short of breath and had a nonproductive cough similar to his presentation with pneumonia in the past. Symptoms progressively worsened, patient states he was sleeping in his lazy boy chair because he could not breathe when he would lie flat. He also states that walking out to his mailbox he would become extremely short of breath. He noticed increased swelling in his abdomen, not so much edema in his legs. Patient's last visit to the hospital was in December 2015 at which time he was seen in consultation by Dr. Deng an echocardiogram with Doppler study was performed on that visit which revealed an ejection fraction of 60-65%, moderate concentric LVH. Chest x-ray on admission here revealed mild central venous congestion, tiny right pleural effusion with suspected right upper lobe nodule, cardiomegaly. EKG shows a normal sinus rhythm with no acute changes. Echocardiogram with Doppler study performed here revealed an ejection fraction of 55-60%, Left atrium is severely dilated, mild to moderate tricuspid regurg, severe pulmonary hypertension. White blood cell count 7.3, hemoglobin 11.4, platelet count 223. Sodium 141, potassium 4.1, BUN 45, creatinine 2.1. Magnesium level I.9, troponins 0.024, 0.034, 0.034. BNP level 5780. Blood pressure on arrival here 197/77 with a heart rate in the 80s, 89% on room air. Blood pressure this morning 156/60 with a heart rate in the 60s, temperature 98.8, 94% on 2 L of oxygen. 01/11/2017 Patient seen and examined this morning, feeling much better overall. Sitting up in the chair at bedside. BUN 49, creatinine 2.2, potassium 4.5. Continues to be on IV Lasix. 01/12/2017 Patient seen and examined this morning, breathing is overall stable. HGB 12.4, BUN 66, creatinine 2.6.we will hold his Lasix and lisinopril today, check lytes BUN and creatinine in the morning, perhaps resumed Lasix by mouth tomorrowdepending on his labs.. Objective - Vital Signs Vital signs: Vital Signs Temp 96.8 F L 01/12/17 08:54 Pulse 68 01/12/17 12:27 Resp 16 01/12/17 12:27 BP 124/58 01/12/17 12:27 Pulse Ox 96 01/12/17 12:27 Intake & Output 01/11/17 01/12/17 01/12/17 18:59 06:59 18:59 Intake Total 1200 240 Output Total 450 1450 600 Balance 750 -1450 -360 Weight 99.5 kg Intake: Oral 1200 240 Output: Urine 450 1450 600 Other: Voiding Method Urinal Toilet Toilet Urinal Urinal # Voids 3 1 0 # Bowel Movements 0 - Exam PHYSICAL EXAMINATION: HEENT: Head is atraumatic, normocephalic. Pupils equal, round. Neck is supple. There is elevated jugular venous pressure. HEART EXAMINATION: Heart S1 and S2 systolic murmur is heard. CHEST EXAMINATION: Lungs reveal diminished air entry to bilateral bases ABDOMEN: Firm, mildly distended, . Bowel sounds are heard. No organomegaly noted. EXTREMITIES: 2+ peripheral pulses with trace evidence of peripheral edema and no calf tenderness noted. NEUROLOGIC patient is awake, alert and oriented -3. . - Labs CBC & Chem 7: 01/12/17 06:02 01/12/17 06:02 Labs: Abnormal Lab Results - Last 24 Hours (Table) 01/11/17 01/11/17 01/12/17 Range/Units 16:21 20:52 05:44 RBC (4.30-5.90) m/uL Hgb (13.0-17.5) gm/dL Hct (39.0-53.0) % BUN (9-20) mg/dL Creatinine (0.66-1.25) mg/dL Glucose (74-99) mg/dL POC Glucose (mg/dL) 186 H 179 H 152 H (75-99) mg/dL 01/12/17 01/12/17 Range/Units 06:02 06:02 RBC 4.12 L (4.30-5.90) m/uL Hgb 12.4 L (13.0-17.5) gm/dL Hct 38.8 L (39.0-53.0) % BUN 66 H (9-20) mg/dL Creatinine 2.62 H (0.66-1.25) mg/dL Glucose 141 H (74-99) mg/dL POC Glucose (mg/dL) (75-99) mg/dL Microbiology - Last 24 Hours (Table) 01/09/17 12:06 Blood Culture - Preliminary Blood No Growth after 72 hours Assessment and Plan Plan: Assessment and plan #1 diastolic congestive heart failure acute on chronic, currently on IV Lasix #2 hypertension, blood pressure 150/70. #3 diabetes #4 hyperlipidemia #5 chronic kidney failure Plan Echocardiogram with Doppler study repeated here this admission shows mild to moderate tricuspid regurgitation, severe pulmonary hypertension, ejection fraction 55-60%. Because of the increased renal function, we will hold the patient's IV Lasix today as well as the DAYA inhibitor, we will check his labs in the morning and depending on the results of those we will resume oral Lasix. DNP note has been reviewed, I agree with a documented findings and plan of care. Patient was seen and examined.
[2017-01-12] MEDS: predniSONE 20 MG TAB PO SCH (15:54)
[2017-01-12 17:04] LABS: Glucose,Whole Blood 178 mg/dL (75-99)
[2017-01-12] MEDS: FENOFIBRATE 160 MG TAB PO SCH (17:21)
[2017-01-12 21:26] LABS: Glucose,Whole Blood 285 mg/dL (75-99)
--- NOTE | 2017-01-12 23:58 | P.PN ---
Subjective Progress Note Date: 01/12/17 Principal diagnosis: Acute CHF exacerbation 71-year-old gentleman came in with complaints of short of breath going on about for about a week. Patient started having upper respiratory tract like symptoms since then patient the was having shortness of breath progressively worse for about a week. Patient denied any fever, chills does have cough only brings up minimal phlegm whitish in color, denied any significant orthopnea or paroxysmal nocturnal dyspnea. Although chest x-ray did not show any significant pneumonic process but did show changes consistent with pulmonary edema, patient had normal ejection fraction about any ago at that time I believe he was treated for diastolic dysfunction heart failure uses 40 mg of Lasix at home. He denied any increased swelling in the legs or recent weight gain. Patient denied any chest pain and palpitations. Patient is morbidly obese never tested for sleep apnea in the past. 01/10/2017 Patient is being dosed with IV Lasix. Shortness of breath slightly improved. No complaints of chest pain today. No nausea vomiting or abdominal pain. No fever no chills. No acute overnight issues. 2-D echo showed normal ejection fraction and mild to moderate tricuspid regurgitation and severe pulmonary hypertension 01/11/2017 Patient says that his breathing is slightly improved compared to yesterday. Continues to be on IV Lasix. No nausea vomiting or abdominal pain. Tolerating oral diet. No acute overnight issues. 01/12/2017 Patient says that his breathing is better. Creatinine level increased to 2.6 today. Lasix will be held and possibly change to by mouth. Patient is complaining of sinusitis with continuous irritating postnasal drip and cough. Patient will be started on antibiotics for acute sinusitis. All other review of systems negative except the above Current medications reviewed Objective - Vital Signs Vital signs: Vital Signs Temp 97.1 F L 01/12/17 15:55 Pulse 68 01/12/17 15:55 Resp 16 01/12/17 15:55 BP 130/65 01/12/17 15:55 Pulse Ox 95 01/12/17 15:55 Intake & Output 01/12/17 01/12/17 01/13/17 06:59 18:59 06:59 Intake Total 480 Output Total 1450 800 Balance -1450 -320 Weight 99.5 kg Intake: Oral 480 Output: Urine 1450 800 Other: Voiding Method Toilet Toilet Urinal Urinal # Voids 1 0 # Bowel Movements 0 - Exam PHYSICAL EXAMINATION: Patient is lying in the bed comfortably, no acute distress, awake alert and oriented.. HEENT: Normocephalic. Neck is supple. Pupils reactive. Nostrils clear. Oral cavity is moist. Ears reveal no drainage. Neck reveals no JVD, carotid bruits, or thyromegaly. CHEST EXAMINATION: Trachea is central. Symmetrical expansion. Bilateral air entry improved. Minimal expiratory wheezing. CARDIAC: Normal S1, S2 with no gallops. No murmurs ABDOMEN: Soft. Bowel sounds normal. No organomegaly. No abdominal bruits. Extremities: reveal no edema. No clubbing or cyanosis Neurologically awake, alert, oriented x3 with well-coordinated movements. No focal deficits noted Skin: No rash or skin lesions. Psychiatric: Operative. Nonsuicidal Musculoskeletal: No joint swelling or deformity. Normal range of motion. - Labs CBC & Chem 7: 01/12/17 06:02 01/12/17 06:02 Labs: Abnormal Lab Results - Last 24 Hours (Table) 01/12/17 01/12/17 01/12/17 Range/Units 05:44 06:02 06:02 RBC 4.12 L (4.30-5.90) m/uL Hgb 12.4 L (13.0-17.5) gm/dL Hct 38.8 L (39.0-53.0) % BUN 66 H (9-20) mg/dL Creatinine 2.62 H (0.66-1.25) mg/dL Glucose 141 H (74-99) mg/dL POC Glucose (mg/dL) 152 H (75-99) mg/dL 01/12/17 01/12/17 Range/Units 16:44 21:20 RBC (4.30-5.90) m/uL Hgb (13.0-17.5) gm/dL Hct (39.0-53.0) % BUN (9-20) mg/dL Creatinine (0.66-1.25) mg/dL Glucose (74-99) mg/dL POC Glucose (mg/dL) 178 H 285 H (75-99) mg/dL Microbiology - Last 24 Hours (Table) 01/09/17 12:06 Blood Culture - Preliminary Blood No Growth after 72 hours Assessment and Plan Assessment: #1 acute hypoxic respiratory failure likely due to acute on chronic CHF with diastolic dysfunction. IV Lasix held due to worsening renal function that level II.6 #2 chronic kidney disease stage III: Baseline creatinine is around 2 for about any year, patient may have a competent of acute renal dysfunction from can start failure exacerbation expected to improve with Lasix will need to monitor basic metabolic profile closely. Patient may have diabetic nephropathy. #3 type 2 diabetes mellitus: Uncontrolled blood sugars patient will be started on his home insulin regimen titrate depending on his sliding scale needs. #4 moderate obesity: Patient need to be tested for sleep apnea as an outpatient #5 hypertension #6 severe osteoarthritis #7 Severe pulmonary hypertension #8 Mild to moderate tricuspid regurgitation Plan: Patient will be continued DuoNeb for bronchospasm. Will add prednisone and ceftriaxone for sinusitis. Patient denied any history of COPD. Continue to follow renal function. Cardiology is on board. Further recommendations based on the clinical course. Time with Patient: Greater than 30
[2017-01-13 06:43] LABS: Glucose,Whole Blood 173 mg/dL (75-99)
[2017-01-13 06:48] LABS: Calcium 9.3 mg/dL (8.4-10.2); Potassium 5.3 mmol/L (3.5-5.1)
[2017-01-13] MEDS: INSULIN LISPRO (humaLOG) 300 UNIT/3 ML VIAL SQ SCH (07:12)
[2017-01-13] MEDS: METOPROLOL TARTRATE 25 MG TAB PO SCH (08:54)
[2017-01-13] MEDS: predniSONE 20 MG TAB PO SCH (08:54)
[2017-01-13] MEDS: ATORVASTATIN 80 MG TAB PO SCH (08:54)
[2017-01-13] MEDS: LORATADINE 10 MG TAB PO SCH (08:55)
[2017-01-13] MEDS: ASPIRIN 81 MG PO SCH (08:55)
[2017-01-13] MEDS: LISINOPRIL 10 MG TAB PO SCH (09:05)
[2017-01-13 10:54] VITALS: RESP 18
[2017-01-13 11:50] LABS: Glucose,Whole Blood 197 mg/dL (75-99)
[2017-01-13] MEDS: FERROUS SULFATE 325 MG TAB PO SCH (12:10)
[2017-01-13] MEDS ORDERED: FUROSEMIDE 40 MG TAB PO SCH (12:15)
--- NOTE | 2017-01-13 13:21 | PN ---
PROGRESS NOTE This patient was admitted with acute respiratory distress. Possible acute bronchitis and congestive cardiac failure secondary to diastolic dysfunction. The patient is feeling better. His breathing is improved. He denies any significant cough. Patient remains afebrile. The patient's chest x-ray shows improvement in the congestive cardiac failure. Patient's creatinine is now down to 2.4. First and second heart sounds are normal. Lungs reveal bilateral scattered wheezes. We will recommend to continue the patient on breathing treatment. We will resume the patient on oral Lasix. MMODL / IJN: [id number] /
--- NOTE | 2017-01-13 14:07 | P.DS ---
Providers Date of admission: 01/09/17 13:57 Expected date of discharge: 01/13/17 Attending physician: Candido Do Consults: 01/09/17 13:58 Consult Physician Urgent Consulting Provider: Venus Hector Consult Reason/Comments: Congestive heart failure exacerbation Do you want consulting provider notified?: Yes Primary care physician: Jordan Wade Jorge [facility] Course: Final Diagnoses: #1 acute hypoxic respiratory failure likely due to acute on chronic CHF with diastolic dysfunction. IV Lasix held due to worsening renal function that level II.6 #2 chronic kidney disease stage III: Baseline creatinine is around 2 for about any year, patient may have a competent of acute renal dysfunction from can start failure exacerbation expected to improve with Lasix will need to monitor basic metabolic profile closely. Patient may have diabetic nephropathy. #3 type 2 diabetes mellitus: Uncontrolled blood sugars patient will be started on his home insulin regimen titrate depending on his sliding scale needs. #4 moderate obesity: Patient need to be tested for sleep apnea as an outpatient #5 hypertension #6 severe osteoarthritis #7 Severe pulmonary hypertension #8 Mild to moderate tricuspid regurgitation #9 acute sinusitis Hospital course: This is a 71-year-old gentleman came in with complaints of short of breath going on about for about a week, acute hypoxic respiratory failure, acute on chronic CHF, acute sinusitis and multiple other medical issues. chest x-ray did not show any significant pneumonic process but did show changes consistent with pulmonary edema. Echo reported normal LV function, mild to moderate tricuspid regurgitation and severe pulmonary hypertension Evaluated by cardiology. Diuresed on IV push Lasix. Maintained on nebulized bronchodilators. Treated with antibiotics for postnasal drip/sinusitis. Significant clinical improvement. Patient will be discharged home in a stable condition with guarded prognosis pending final DC recommendations and clearance from cardiology. The impression and plan of care has been dictated as directed. : I performed a history and examination of this patient, discussed the same with the dictator. I agree with the dictator's note ,documented as a scribe. Any additional findings or plans will be noted. Patient Condition at Discharge: Stable Plan - Discharge Summary New Discharge Prescriptions: New Amoxic-Pot Clav 875-125Mg [Augmentin 875-125] 1 tab PO Q12HR #10 tablet Albuterol Inhaler [Ventolin Hfa Inhaler] 2 puff INHALATION Q6HR PRN #1 inhaler PRN Reason: Shortness Of Breath Furosemide [Lasix] 40 mg PO DAILY #30 tab predniSONE 10 mg PO DIRECTED #30 tab Continue L.acidoph,Paracasei, B.lactis [Probiotic] 1 cap PO DAILY Dulaglutide [Trulicity] 1.5 mg SQ MO Desloratadine 5 mg PO DAILY Atorvastatin [Lipitor] 80 mg PO DAILY Aspirin 81 mg PO DAILY Krill Oil 500 mg PO DAILY Glimepiride [Amaryl] 0.5 mg PO AC-BRKFST Ferrous Sulfate [Iron (65 MG Elemental)] 325 mg PO DAILY Fenofibrate 160 mg PO AC-SUPPER Cholecalciferol [Vitamin D3] 2,000 unit PO DAILY Metoprolol Tartrate [Lopressor] 25 mg PO BID #60 tab Lisinopril [Zestril] 10 mg PO BID Insulin Lispro [humaLOG Kwikpen] 10 unit SQ AC-BID Multivitamins, Thera [Multivitamin (formulary)] 1 tab PO DAILY Celecoxib [CeleBREX] 200 mg PO DAILY PRN PRN Reason: Pain Discontinued Furosemide [Lasix] 20 mg PO DAILY #30 tab Discharge Medication List Aspirin 81 mg PO DAILY 01/04/16 [History] Atorvastatin [Lipitor] 80 mg PO DAILY 01/04/16 [History] Cholecalciferol [Vitamin D3] 2,000 unit PO DAILY 01/04/16 [History] Desloratadine 5 mg PO DAILY 01/04/16 [History] Dulaglutide [Trulicity] 1.5 mg SQ MO 01/04/16 [History] Fenofibrate 160 mg PO AC-SUPPER 01/04/16 [History] Ferrous Sulfate [Iron (65 MG Elemental)] 325 mg PO DAILY 01/04/16 [History] Glimepiride [Amaryl] 0.5 mg PO AC-BRKFST 01/04/16 [History] Krill Oil 500 mg PO DAILY 01/04/16 [History] L.acidoph,Paracasei, B.lactis [Probiotic] 1 cap PO DAILY 01/04/16 [History] Metoprolol Tartrate [Lopressor] 25 mg PO BID #60 tab 01/07/16 [Rx] Celecoxib [CeleBREX] 200 mg PO DAILY PRN 01/09/17 [History] Insulin Lispro [humaLOG Kwikpen] 10 unit SQ AC-BID 01/09/17 [History] Lisinopril [Zestril] 10 mg PO BID 01/09/17 [History] Multivitamins, Thera [Multivitamin (formulary)] 1 tab PO DAILY 01/09/17 [History ] Albuterol Inhaler [Ventolin Hfa Inhaler] 2 puff INHALATION Q6HR PRN #1 inhaler 01/13/17 [Rx] Amoxic-Pot Clav 875-125Mg [Augmentin 875-125] 1 tab PO Q12HR #10 tablet [Rx] Furosemide [Lasix] 40 mg PO DAILY #30 tab 01/13/17 [Rx] predniSONE 10 mg PO DIRECTED #30 tab 01/13/17 [Rx] Follow up Appointment(s)/Referral(s): Maxi Deng MD [STAFF PHYSICIAN] - 4 Weeks Jordan Patel III, MD [Primary Care Provider] - 3 Days Ambulatory/Diagnostic Orders: Complete Blood Count w/diff [LAB.AMB] Time Frame: 3 Days, Location: Determined By Patient Activity/Diet/Wound Care/Special Instructions: Final DC recommendations and clearance from cardiology. Diet: Cardiac,CHF,PERLA, RENAL, Activity: Limited until follow up
[2017-01-13 15:51] VITALS: BP 155/70; PULSE 73; TEMP 96.7
[2017-01-14] MEDS ORDERED: LISINOPRIL 10 MG TAB PO SCH (09:00)
[2017-01-16] MEDS ORDERED: Dulaglutide [Trulicity] 1.5 MG SQ SCH (12:00)
== END 2017-01-13 16:53 | disposition home or self-care (01) | DRG 291 ==
LOC: EC 11:28 → 6SEL 13:57
PROVIDERS: ADMIT Internal Medicine; ATTEND Internal Medicine
DX: I13.0 Hypertensive heart and chronic kidney disease with heart failure and stage 1 through stage 4 chronic kidney disease, or unspecified chronic kidney disease (principal); J96.01 Acute respiratory failure with hypoxia; E11.21 Type 2 diabetes mellitus with diabetic nephropathy; E11.65 Type 2 diabetes mellitus with hyperglycemia; E66.01 Morbid (severe) obesity due to excess calories; I27.20 Pulmonary hypertension, unspecified; I50.33 Acute on chronic diastolic (congestive) heart failure; I07.1 Rheumatic tricuspid insufficiency; E11.22 Type 2 diabetes mellitus with diabetic chronic kidney disease; N18.3 Chronic kidney disease, stage 3 (moderate); M19.90 Unspecified osteoarthritis, unspecified site; J01.90 Acute sinusitis, unspecified; E78.5 Hyperlipidemia, unspecified; Z79.899 Other long term (current) drug therapy; Z79.82 Long term (current) use of aspirin; Z83.3 Family history of diabetes mellitus; Z82.49 Family history of ischemic heart disease and other diseases of the circulatory system; Z87.01 Personal history of pneumonia (recurrent); Z79.4 Long term (current) use of insulin; Z80.52 Family history of malignant neoplasm of bladder; Z87.891 Personal history of nicotine dependence; Z86.69 Personal history of other diseases of the nervous system and sense organs; Z90.49 Acquired absence of other specified parts of digestive tract
CPT/HCPCS: 36415; 71020; 80048; 80053; 82550; 82553; 83605; 83735; 83880; 84484; 85025; 85610; 85730; 87040; 93005; 93306; 96374; 99285

== ENCOUNTER → 2018-07-23 | Day surgery (SDC) | payer MEDICARE, OTHER ==
[2018-07-17 14:40] VITALS: BMI 36.4
[~2018-07-23] MED LIST: BENZOCAINE SPRAY 1 CAN MUCOUS MEM ONE; SODIUM CHLORIDE 0.9% 1,000 ML IV SCH; SODIUM CHLORIDE 0.9% 500 ML 500 ML IV ONE; fentaNYL (PF) 50 MCG/ML 2 ML AMP IV ONE; fentaNYL (PF) 50 MCG/ML 2 ML AMP ONE
[2018-07-23 09:58] LABS: Glucose,Whole Blood 135 mg/dL (75-99)
[2018-07-23 09:59] VITALS: TEMP 96.4
[2018-07-23] MEDS: MIDAZOLAM (PF) 2 MG/2 ML VIAL IV ONE ×2 (10:46→10:56)
[2018-07-23 11:04] VITALS: RESP 14
--- NOTE | 2018-07-23 11:23 | P.TEE ---
Indications for Procedure(s): Assessment the mitral regurgitation Date of Procedure: 07/23/18 Preoperative Diagnosis: Nonrheumatic mitral regurgitation Postoperative Diagnosis: 3+ mitral regurgitation with suggestion of ruptured chordae. Description of Procedure(s): INDICATION: This is a 73-year-old gentleman with history of hypertension was been experiencing exertional shortness of breath. Transthoracic echo Cardec gram was suggestive of mitral regurgitation. A FAUSTINO examination is requested for further evaluation CONSENT:. Informed consent was obtained from patient PROCEDURE:, Patient was brought to the lab in a fasting state. He was prepped a nd draped in the usual fashion. The throat was sprayed with Cetacaine. A lubricated Omni probe was introduced into the oropharynx and was advanced into the esophagus and stomach. Multiple views were obtained. Selectivebubble injection was performed and a collar pulse and continuous-wave Doppler studies were done. Patient tolerated the procedure well. No immediate complications FINDINGS:. The aortic valve is tricuspid and function normally. Mitral valve shows some calcification and thickening. There is eccentric mitral regurgitation projecting anteriorly. The PISA value is measured is about 1.3. The regurgitant jet is hugging the interatrial septum. There appears to be ruptured chordae tendineae involving the posterior mitral leaflet. The left ankle function is preserved. The left atrium is enlarged. The left atrial appendage free of any clot. There is no evidence of PFO. No spontaneous shunt and no evidence of crossing of the bubbles across the interatrial septum, after saline bubble injection. The aorta showed mild to moderate plaque IMPRESSION: #1. 3-4+ eccentric mitral regurgitation with evidence of ruptured chordae tendineae involving the posterior mitral leaflet #2. Left atrial enlargement #3. No clot in the left atrial appendage #4. No PFO #5. Preserved LV function. #6. Mild to moderate plaque in the aorta PLAN:. Patient may be considered for cardiac catheterization and possible mitral valve repair.
[2018-07-23 12:19] LABS: Glucose,Whole Blood 111 mg/dL (75-99)
[2018-07-23 12:50] VITALS: PULSE 64
[2018-07-23 12:55] VITALS: BP 146/72
== END ==
LOC: CATHCVL 09:24
PROVIDERS: ATTEND Internal Medicine Cardiovascular Disease
DX: I34.0 Nonrheumatic mitral (valve) insufficiency (principal); I51.1 Rupture of chordae tendineae, not elsewhere classified; I70.0 Atherosclerosis of aorta; E11.9 Type 2 diabetes mellitus without complications; I27.21 Secondary pulmonary arterial hypertension; Z87.891 Personal history of nicotine dependence; R01.1 Cardiac murmur, unspecified; I13.0 Hypertensive heart and chronic kidney disease with heart failure and stage 1 through stage 4 chronic kidney disease, or unspecified chronic kidney disease; E11.22 Type 2 diabetes mellitus with diabetic chronic kidney disease; N18.9 Chronic kidney disease, unspecified; E66.9 Obesity, unspecified; Z68.36 Body mass index [BMI] 36.0-36.9, adult; I50.32 Chronic diastolic (congestive) heart failure; Z79.4 Long term (current) use of insulin; Z79.82 Long term (current) use of aspirin; Z79.899 Other long term (current) drug therapy
CPT/HCPCS: 93312; 93320; 93325; J3010; J2250

== ENCOUNTER → 2018-09-03 | Outpatient (CLI) | payer MEDICARE ==
[2018-09-03 12:43] LABS: HGB 13.8 gm/dL (13.0-17.5); MCH 29.9 pg (25.0-35.0); MCHC 32.2 g/dL (31.0-37.0); MCV 92.8 fL (80.0-100.0); Mean Platelet Volume 6.8; Platelet Count 189 k/uL (150-450); RBC 4.64 m/uL (4.30-5.90); RDW 13.6 % (11.5-15.5); WBC 6.5 k/uL (3.8-10.6)
[2018-09-03 13:01] LABS: Potassium 5.2 mmol/L (3.5-5.1)
== END | disposition home or self-care (01) ==
LOC: LABPAT 11:37
PROVIDERS: ATTEND Internal Medicine Cardiovascular Disease
DX: Z01.812 Encounter for preprocedural laboratory examination (principal); I34.0 Nonrheumatic mitral (valve) insufficiency
CPT/HCPCS: 36415; 80051; 82565; 84520; 85027

== ENCOUNTER → 2018-09-10 | Day surgery (SDC) | payer MEDICARE ==
[2018-09-04 13:58] VITALS: BMI 35.9
[~2018-09-10] MED LIST changes: -BENZOCAINE SPRAY 1 CAN MUCOUS MEM ONE; +HEPARIN SODIUM 1,000 UN/ML (10ML VL) ONE; +LIDOCAINE 1% INJ 10MG/ML (20 ML MDV) ONE; -SODIUM CHLORIDE 0.9% 500 ML 500 ML IV ONE; +VERAPAMIL 2.5 MG/ML 2 ML AMP ONE; -fentaNYL (PF) 50 MCG/ML 2 ML AMP IV ONE; -fentaNYL (PF) 50 MCG/ML 2 ML AMP ONE
== END ==
LOC: CATHCVL 08:59
PROVIDERS: ATTEND Internal Medicine Interventional Cardiology
DX: Z53.9 Procedure and treatment not carried out, unspecified reason (principal)

== ENCOUNTER 2018-09-24 05:48 | Day surgery (SDC) | payer MEDICARE ==
[2018-09-18 11:48] VITALS: BMI 35.9
[2018-09-24] MEDS ORDERED: ALPRAZolam 0.25 MG TAB PO PRN (06:02)
[2018-09-24] MEDS ORDERED: ALPRAZolam 0.5 MG TAB PO PRN (06:02)
[2018-09-24] MEDS ORDERED: NITROGLYCERIN SL TABS 0.4 MG TAB SUBLINGUAL PRN ×2 (06:02→08:31)
[2018-09-24] MEDS ORDERED: SODIUM CHLORIDE 0.9% 1,000 ML in EMPTY BAG 1 BAG IV ONE (06:02)
[2018-09-24] MEDS ORDERED: SODIUM CHLORIDE 0.9% 1,000 ML IV ONE (06:12)
[2018-09-24 06:27] VITALS: RESP 16
[2018-09-24 06:37] LABS: Basophils # (A) 0.1 k/uL (0-0.2); Basophils % (A) 1 %; Eosinophils # (A) 0.5 k/uL (0-0.7); Eosinophils % (A) 6 %; HCT 40.7 % (39.0-53.0); HGB 13.4 gm/dL (13.0-17.5); Lymphocytes # (A) 1.7 k/uL (1.0-4.8); Lymphocytes % (A) 21 %; MCH 29.9 pg (25.0-35.0); MCHC 32.9 g/dL (31.0-37.0); MCV 91.1 fL (80.0-100.0); Mean Platelet Volume 6.9; Monocytes # (A) 0.6 k/uL (0-1.0); Monocytes % (A) 8 %; Neutrophils # (A) 4.8 k/uL (1.3-7.7); Neutrophils % (A) 62 %; Platelet Count 210 k/uL (150-450); RBC 4.47 m/uL (4.30-5.90); RDW 14.5 % (11.5-15.5); WBC 7.8 k/uL (3.8-10.6)
[2018-09-24 06:42] LABS: Glucose,Whole Blood 115 mg/dL (75-99)
[2018-09-24 06:55] LABS: Calcium 9.6 mg/dL (8.4-10.2); Potassium 5.3 mmol/L (3.5-5.1)
[2018-09-24] MEDS ORDERED: ASPIRIN 325 MG TAB PO ONE (07:00)
[2018-09-24] MEDS ORDERED: ATORVASTATIN 80 MG TAB PO ONE (07:00)
[2018-09-24] MEDS ORDERED: LIDOCAINE 1% INJ 10MG/ML (20 ML MDV) SQ ONE (07:46)
[2018-09-24] MEDS ORDERED: MIDAZOLAM (PF) 2 MG/2 ML VIAL IV ONE (07:46)
[2018-09-24] MEDS ORDERED: BIVALIRUDIN BOLUS 250 MG/50 ML IV ONE (07:51)
[2018-09-24] MEDS ORDERED: BIVALIRUDIN 250 MG in SODIUM CHLORIDE 0.9% 35 ML IV ONE (07:51)
[2018-09-24] MEDS ORDERED: TICAGRELOR 90 MG TAB PO ONE (07:55)
[2018-09-24] MEDS ORDERED: IOPAMIDOL-370 125ML BTL INJ ONE (08:21)
[2018-09-24] MEDS ORDERED: RX INFO: IV CONTRAST WAS GIVEN 1 EACH MISC MISCELLANE PRN (08:31)
[2018-09-24] MEDS ORDERED: MAG HYDROX/AL HYDROX/SIMETH 30 ML CUP PO PRN (08:31)
[2018-09-24] MEDS ORDERED: ATROPINE SULFATE 0.1 MG/ML 10ML SYRINGE IV PRN (08:31)
[2018-09-24] MEDS ORDERED: ZOLPIDEM 5 MG TAB PO PRN (08:31)
[2018-09-24] MEDS ORDERED: SODIUM CHLORIDE 0.9% 1,000 ML IV SCH ×2 (08:45→09:00)
[2018-09-24] MEDS ORDERED: NON-FORMULARY DRUG (Zinc [Zinc] 50 MG) PO SCH (09:00)
[2018-09-24] MEDS ORDERED: NON-FORMULARY DRUG (Ubidecarenone [Co Q-10] 100 MG) PO SCH (09:00)
[2018-09-24] MEDS ORDERED: NON-FORMULARY DRUG (Krill Oil [Krill Oil] 500 MG) PO SCH (09:00)
--- NOTE | 2018-09-24 09:21 | PTCA ---
PERCUTANEOUSTRANS CORORONARY ANGIOGRAPHY DATE OF SERVICE: 09/24/2018 PERFORMING PHYSICIAN: Zachariah Galindo MD, Program Management Professional. PROCEDURE PERFORMED: Successful stenting of the proximal left anterior descending artery using 3.5 x 15 mm Xience drug-eluting stent which was post dilated using 3.75 mm noncompliant balloon with an excellent angiographic results with reduction of stenosis from 80% to 0%. INDICATION: This is a pleasant 73-year-old gentleman with diabetes, hypertension, dyslipidemia, who follows with Dr. Deng in the office. He underwent recently was experiencing exertional shortness of breath and chest pain and underwent a heart catheterization which revealed calcified lesion in one involving the proximal left anterior descending artery. Because of that, heart catheterization was advised. The heart catheterization revealed severe disease involving the proximal left anterior descending artery and he was brought today to undergo an intervention on the LAD. APPROACH: Right common femoral artery. COMPLICATION: None. LEVEL OF SEDATION: Moderate, sedation length of 37 minutes. PROCEDURE DESCRIPTION: After obtaining an informed consent, the patient was brought to the cardiac custodial laborer. The right common femoral artery was cannulated using micropuncture technique The micropuncture wire passed easily. Then I placed a 6-Barbadian sheath in the right common femoral artery. After that, anticoagulation was initiated using Angiomax. I did engage the left main using the . A run-through wire was used to wire the LAD. After that I did balloon angioplasty of the LAD using a 3.0 x 12 mm balloon. I attempted advancing the stent but the stent will not cross the lesion. I did balloon angioplasty again at the side using 3.0 x 12 mm NC balloon and in spite of that, I was unable to get the stent. At that point, I decided to use a GuideLiner. With a GuideLiner, I was able to get the stent. The proximal LAD with stent was positioned under fluoroscopy guidance and deployed under 16 atmospheres for 20 seconds. I post- dilated the stent with 3.75 x 8 mm and NC balloon, was inflated under 18 atmospheres for 5 seconds. The following angiogram showed excellent angiographic results and the procedure was completed without any complication. POSTPROCEDURE MANAGEMENT: 1. Dual anti-platelet therapy. 2. Risk factors modifications. 3. Close cholesterol control. 4. Follow up with the patient.. MMODL / IJN: [id number] /
[2018-09-24] MEDS: SODIUM CHLORIDE 0.9% 1,000 ML IV SCH ×2 (10:26→15:53)
[2018-09-24] MEDS ORDERED: MELOXICAM 7.5 MG TAB PO PRN (11:23)
[2018-09-24 11:26] LABS: Glucose,Whole Blood 115 mg/dL (75-99)
[2018-09-24] MEDS ORDERED: GLIMEPIRIDE 4 MG TAB PO ONE (11:30)
[2018-09-24] MEDS ORDERED: FUROSEMIDE 40 MG TAB PO ONE (11:30)
[2018-09-24] MEDS ORDERED: CHOLECALCIFEROL 1,000 UNIT TAB PO ONE (11:30)
[2018-09-24] MEDS ORDERED: LACTOBACILLUS ACIDOPH & BULGAR 1 EACH PACKET PO ONE (11:30)
[2018-09-24] MEDS: FERROUS SULFATE 325 MG TAB PO ONE ×2 (12:13→15:08)
[2018-09-24] MEDS: LORATADINE 10 MG TAB PO ONE ×2 (12:13→15:08)
[2018-09-24] MEDS: MULTIVITAMINS, THERA 1 EACH TAB PO ONE ×2 (12:13→15:08)
[2018-09-24] MEDS ORDERED: NON-FORMULARY DRUG (Dulaglutide [Trulicity] 1.5 MG) SQ SCH (14:00)
[2018-09-24 17:01] LABS: Glucose,Whole Blood 115 mg/dL (75-99)
[2018-09-24] MEDS: INSULIN ASPART (NovoLOG) 100 UNIT/ML VIAL SQ SCH ×2 (17:01→21:11)
[2018-09-24] MEDS ORDERED: INSULIN LISPRO 10 UNIT SQ PRN (17:30)
[2018-09-24] MEDS ORDERED: FENOFIBRATE 160 MG TAB PO SCH (17:30)
[2018-09-24] MEDS: METOPROLOL TARTRATE 25 MG TAB PO SCH (20:23)
[2018-09-24 21:02] LABS: Glucose,Whole Blood 116 mg/dL (75-99)
[2018-09-25] MEDS: SODIUM CHLORIDE 0.9% 1,000 ML IV SCH ×2 (00:30→08:07)
[2018-09-25 06:22] LABS: Glucose,Whole Blood 86 mg/dL (75-99)
[2018-09-25] MEDS: INSULIN ASPART (NovoLOG) 100 UNIT/ML VIAL SQ SCH (06:41)
[2018-09-25 07:17] LABS: Anisocytosis Slight; Basophils # (A) 0.1 k/uL (0-0.2); Basophils % (A) 1 %; Eosinophils # (A) 0.4 k/uL (0-0.7); Eosinophils % (A) 6 %; HCT 40.5 % (39.0-53.0); Lymphocytes # (A) 1.1 k/uL (1.0-4.8); Lymphocytes % (A) 18 %; MCH 29.7 pg (25.0-35.0); MCHC 32.1 g/dL (31.0-37.0); MCV 92.5 fL (80.0-100.0); Mean Platelet Volume 7.5; Monocytes # (A) 0.4 k/uL (0-1.0); Monocytes % (A) 7 %; Neutrophils # (A) 4.2 k/uL (1.3-7.7); Neutrophils % (A) 68 %; Platelet Count 188 k/uL (150-450); RBC 4.38 m/uL (4.30-5.90); RDW 16.2 % (11.5-15.5); WBC 6.3 k/uL (3.8-10.6)
[2018-09-25 07:25] LABS: Potassium 4.6 mmol/L (3.5-5.1)
[2018-09-25] MEDS ORDERED: GLIMEPIRIDE 4 MG TAB PO SCH (07:30)
[2018-09-25 07:39] VITALS: BP 156/69; PULSE 66; TEMP 98.2
[2018-09-25] MEDS: METOPROLOL TARTRATE 25 MG TAB PO SCH (08:10)
[2018-09-25] MEDS ORDERED: NON-FORMULARY DRUG (Celecoxib 200 MG) PO PRN (09:00)
[2018-09-25] MEDS ORDERED: FUROSEMIDE 40 MG TAB PO SCH (09:00)
[2018-09-25] MEDS ORDERED: CHOLECALCIFEROL 1,000 UNIT TAB PO SCH (09:00)
[2018-09-25] MEDS ORDERED: FERROUS SULFATE 325 MG TAB PO SCH (09:00)
[2018-09-25] MEDS ORDERED: TICAGRELOR 90 MG TAB PO SCH (09:00)
[2018-09-25] MEDS ORDERED: ASPIRIN 81 MG PO SCH (09:00)
[2018-09-25] MEDS ORDERED: LACTOBACILLUS ACIDOPH & BULGAR 1 EACH PACKET PO SCH (09:00)
[2018-09-25] MEDS ORDERED: MULTIVITAMINS, THERA 1 EACH TAB PO SCH (09:00)
[2018-09-25] MEDS ORDERED: LISINOPRIL 20 MG TAB PO SCH (09:00)
[2018-09-25] MEDS ORDERED: LORATADINE 10 MG TAB PO SCH (09:00)
[2018-09-25] MEDS ORDERED: ATORVASTATIN 80 MG TAB PO SCH (09:00)
--- NOTE | 2018-09-25 09:21 | DS ---
DISCHARGE SUMMARY DATE OF ADMISSION: 09/24/2018 DATE OF DISCHARGE: 09/25/2018 BRIEF HISTORY: This is a 73-year-old gentleman who underwent yesterday successful balloon angioplasty and stenting of the proximal left anterior descending artery with an excellent angiographic results and without any complication. The procedure was performed from the right groin approach. On follow up with him today, he is asymptomatic. The right groin is soft and nontender and without any bruises. The patient is going to be discharged today on dual antiplatelet therapy and he will follow up with Dr. Deng, his primary lumber estimator, in a week. MMODL / GORDYN: [id number] /
== END 2018-09-25 09:30 | disposition home or self-care (01) ==
LOC: CATHCVL 05:48 → 3SCARD 14:07 → CATHCVL 09-25 09:30
PROVIDERS: ATTEND Internal Medicine Interventional Cardiology
DX: I25.10 Atherosclerotic heart disease of native coronary artery without angina pectoris (principal); I25.84 Coronary atherosclerosis due to calcified coronary lesion; I13.0 Hypertensive heart and chronic kidney disease with heart failure and stage 1 through stage 4 chronic kidney disease, or unspecified chronic kidney disease; N18.9 Chronic kidney disease, unspecified; I50.32 Chronic diastolic (congestive) heart failure; E11.22 Type 2 diabetes mellitus with diabetic chronic kidney disease; Z72.0 Tobacco use; Z79.4 Long term (current) use of insulin; I70.0 Atherosclerosis of aorta; E78.5 Hyperlipidemia, unspecified; R01.1 Cardiac murmur, unspecified; E66.9 Obesity, unspecified; Z68.34 Body mass index [BMI] 34.0-34.9, adult; Z79.82 Long term (current) use of aspirin; Z79.899 Other long term (current) drug therapy
CPT/HCPCS: 80048 ×2; 85025 ×2; C9600; C1887 ×2; C1725 ×3; C1769 ×3; C1894; C1874; J2001; J0583; Q9967; J2250

== ENCOUNTER 2018-10-28 10:47 | Inpatient (IN) | payer MEDICARE ==
[2018-10-28] MEDS ORDERED: ACETAMINOPHEN TAB 325 MG TAB PO PRN (10:58)
[2018-10-28] MEDS ORDERED: MD COMMUNICATION TO PHARMACY 1 EACH MISC PO ONE (11:03)
[2018-10-28 11:43] LABS: Glucose,Whole Blood 106 mg/dL (75-99)
[2018-10-28 11:59] LABS: Basophils % (A) 1 %; Eosinophils # (A) 0.3 k/uL (0-0.7); Eosinophils % (A) 4 %; HCT 39.4 % (39.0-53.0); HGB 12.9 gm/dL (13.0-17.5); Lymphocytes # (A) 1.3 k/uL (1.0-4.8); Lymphocytes % (A) 18 %; MCH 30.5 pg (25.0-35.0); MCHC 32.6 g/dL (31.0-37.0); MCV 93.5 fL (80.0-100.0); Mean Platelet Volume 6.9; Monocytes # (A) 0.5 k/uL (0-1.0); Monocytes % (A) 7 %; Neutrophils # (A) 4.7 k/uL (1.3-7.7); Neutrophils % (A) 67 %; Platelet Count 199 k/uL (150-450); RBC 4.22 m/uL (4.30-5.90); RDW 14.7 % (11.5-15.5)
[2018-10-28] MEDS ORDERED: LORATADINE 10 MG TAB PO PRN (12:01)
[2018-10-28 12:02] LABS: Partial Thromboplastin Time 24.9 sec (22.0-30.0); Prothrombin Time 10.7 sec (9.0-12.0)
[2018-10-28 12:04] LABS: Albumin 4.4 g/dL (3.5-5.0); Calcium 10.1 mg/dL (8.4-10.2); Potassium 4.8 mmol/L (3.5-5.1); Total Bilirubin 0.6 mg/dL (0.2-1.3); Total Protein 7.3 g/dL (6.3-8.2)
[2018-10-28] MEDS ORDERED: TIROFIBAN BOLUS 12.5MG/250 ML BAG IV ONE (12:30)
--- NOTE | 2018-10-28 12:34 | P.CONS ---
History of Present Illness - Reason for Consult Type 2 diabetes mellitus, chronic diastolic dysfunction heart failure - History of Present Illness Patient is a pleasant gentleman is being admitted for mitral valve replacement patient is recent cardiac catheterizations and stenting in month of August patient is on dual antiplatelet therapy LP which is being transient to tirofiban IV so that the patient can receive valve replacement on Monday. 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 Does have type 2 diabetes mellitus as well. I do not have any basic labs available these are being ordered at this time and once medications are verified will resume those with educations whichever is appro priate patient does have severe pulmonary hypertension as well. Patient doesn't have any swelling or elevation of JVD at this time. Review of Systems REVIEW OF SYSTEMS: CONSTITUTIONAL: No fever, no malaise, no fatigue. HEENT: No recent visual problems or hearing problems. Denied any sore throat. CARDIOVASCULAR: No chest pain, orthopnea, PND, no palpitations, no syncope. PULMONARY: No shortness of breath, no cough, no hemoptysis. GASTROINTESTINAL: No diarrhea, no nausea, no vomiting, no abdominal pain. NEUROLOGICAL: No headaches, no weakness, no numbness. HEMATOLOGICAL: Denies any bleeding or petechiae. GENITOURINARY: Denies any burning micturition, frequency, or urgency. MUSCULOSKELETAL/RHEUMATOLOGICAL: Denies any joint pain, swelling, or any muscle pain. ENDOCRINE: Denies any polyuria or polydipsia. The rest of the 14-point review of systems is negative. Past Medical History Past Medical History: Diabetes Mellitus, Eye Disorder, Hyperlipidemia, Hypertension Additional Past Medical History / Comment(s): SOB w/exertion,CATARACTS History of Any Multi-Drug Resistant Organisms: None Reported Past Surgical History: Adenoidectomy, Heart Catheterization, Tonsillectomy Additional Past Surgical History / Comment(s): FAUSTINO,COLONOSCOPY, heart cath 09/11/18 Past Anesthesia/Blood Transfusion Reactions: No Reported Reaction Additional Past Anesthesia/Blood Transfusion Reaction / Comm: no hx blood transfusion Past Psychological History: No Psychological Hx Reported Smoking Status: Former smoker Past Alcohol Use History: Rare Additional Past Alcohol Use History / Comment(s): SMOKED FOR 50 YEARS, QUIT 2007 Past Drug Use History: None Reported - Past Family History Father Family Medical History: Cancer, Diabetes Mellitus Additional Family Medical History / Comment(s): BLADDER CANCER Mother Family Medical History: Congestive Heart Failure (CHF) Additional Family Medical History / Comment(s): AT AGE 68 Medications and Allergies Home Medications Medication Instructions Recorded Confirmed Type Aspirin 81 mg PO DAILY 01/04/16 10/28/18 History Atorvastatin [Lipitor] 80 mg PO DAILY 01/04/16 10/28/18 History Cholecalciferol [Vitamin D3 (25 2,000 unit PO DAILY 01/04/16 10/28/18 History Mcg = 1000 Iu)] Desloratadine 5 mg PO DAILY 01/04/16 10/28/18 History Dulaglutide [Trulicity] 1.5 mg SQ MO 01/04/16 10/28/18 History Fenofibrate 160 mg PO AC-SUPPER 01/04/16 10/28/18 History Ferrous Sulfate [Iron (65 MG 325 mg PO DAILY 01/04/16 10/28/18 History Elemental)] Krill Oil 500 mg PO DAILY 01/04/16 10/28/18 History L.acidoph,Paracasei, B.lactis 1 cap PO DAILY 01/04/16 10/28/18 History [Probiotic] Metoprolol Tartrate [Lopressor] 25 mg PO BID #60 tab 01/07/16 10/28/18 Rx Celecoxib [CeleBREX] 200 mg PO DAILY PRN 01/09/17 10/28/18 History Insulin Lispro [humaLOG Kwikpen] 10 unit SQ AC-BID@0800,1600 PRN 01/09/17 10/28/18 History Multivitamins, Thera [Multivitamin 1 tab PO DAILY 01/09/17 10/28/18 History (formulary)] Furosemide [Lasix] 40 mg PO DAILY #30 tab 01/13/17 10/28/18 Rx Lisinopril [Prinivil] 20 mg PO DAILY 07/17/18 10/28/18 History Zinc 50 mg PO DAILY 07/17/18 10/28/18 History Ubidecarenone [Co Q-10] 100 mg PO DAILY 09/18/18 10/28/18 History Glimepiride [Amaryl] 1 mg PO AC-BRKFST 10/28/18 10/28/18 History Allergies Allergy/AdvReac Type Severity Reaction Status Date / Time No Known Allergies Allergy Verified 10/28/18 12:13 Physical Exam Vitals: Intake and Output 10/27/18 10/28/18 10/28/18 22:59 06:59 14:59 Other: Weight 101.4 kg PHYSICAL EXAMINATION: GENERAL: The patient is alert and oriented x3, not in any acute distress. Well developed, well nourished. HEENT: Pupils are round and equally reacting to light. EOMI. No scleral icterus. No conjunctival pallor. Normocephalic, atraumatic. No pharyngeal erythema. No thyromegaly. CARDIOVASCULAR: S1 and S2 present. No murmurs, rubs, or gallops. PULMONARY: Chest is clear to auscultation, no wheezing or crackles. ABDOMEN: Soft, nontender, nondistended, normoactive bowel sounds. No palpable organomegaly. MUSCULOSKELETAL: No joint swelling or deformity. EXTREMITIES: No cyanosis, clubbing, or pedal edema. NEUROLOGICAL: Gross neurological examination did not reveal any focal deficits. SKIN: No rashes. Results CBC & Chem 7: 10/28/18 11:27 10/28/18 11:27 Labs: Abnormal Lab Results - Last 24 Hours (Table) 10/28/18 10/28/18 10/28/18 Range/Units 11:27 11:27 11:41 RBC 4.22 L (4.30-5.90) m/uL Hgb 12.9 L (13.0-17.5) gm/dL BUN 47 H (9-20) mg/dL Creatinine 2.11 H (0.66-1.25) mg/dL Glucose 100 H (74-99) mg/dL POC Glucose (mg/dL) 106 H (75-99) mg/dL Alkaline Phosphatase 35 L (38-126) U/L Triglycerides 208 H (<150) mg/dL HDL Cholesterol 27 L (40-60) mg/dL Assessment and Plan Plan: -Severe mitral regurgitation: Patient will undergo mitral valve replacement valve replacement on Monday Mini patient's antiplatelet therapy will be transitioned to tirofiban because of his recent stent. And this will be stopped shortly before surgery and antiplatelet therapy will be resumed after surgery. -Carotid disease with recent myocardial infarction and stenting -Severe pulmonary hypertension -Chronic diastolic dysfunction without any acute exacerbation patient is euvolemic will be resumed on his home dose of Lasix -Chronic kidney disease stage III creatinine at his baseline baseline is 2.11 -Hyperlipidemia -Gastroesophageal reflux disease -Type 2 diabetes mellitus with diabetic nephropathy: Patient will be resumed on home regimen titration of insulin and diabetic medications depending on his blood sugars here DVT prophylaxis: As per primary service
--- NOTE | 2018-10-28 12:43 | P.GSHP ---
History of Present Illness H&P Date: 10/28/18 Chief Complaint: Mitral valve regurgitation This is a 73-year-old gentleman who follows on an outpatient basis with Dr. Patel for primary care and Dr. Deng for cardiology. He has a previous medical history of nonrheumatic mitral valve regurgitation, coronary artery dise ase with recent drug-eluting stent placed to the LAD on 09/24/2018, chronic diastolic heart failure, hypertension, hyperlipidemia, type 2 diabetes mellitus with peripheral neuropathy, chronic kidney disease with creatinine around 2 for the last several years, obstructive sleep apnea without home CPAP use, pulmonary hypertension, obesity, osteoarthritis, and previous pipe tobacco use. He has been following with Dr. Deng for quite some time for chronic heart failure. He has experienced exertional dyspnea for a while, and recently it has been getting progressively worse. He denies any other symptoms of chest pain, orthopnea, paroxysmal nocturnal dyspnea, lightheadedness/dizziness, or any sick contacts. Earlier this year he had a transthoracic echocardiogram in the cardiology office which demonstrated significant mitral regurgitation. He was recommended to have a transesophageal echocardiogram which was completed 07/23/2018 which demonstrated preserved left ventricular function with left atrial enlargement, calcified mitral valve with an eccentric jet projecting anteriorly, questionable ruptured chordae involving the posterior leaflet, in 3- 4+ mitral regurgitation. Subsequently he was recommended to undergo heart catheterization which was completed 09/11/2018 demonstrating calcified right and left systems with 70% stenosis in the proximal left anterior descending coronary artery and noncritical stenosis in the proximal circumflex coronary artery 40- 50%. He was discharged to home to follow-up with Dr. Deng to further discuss his options. He returned to [facility] on 09/24/2018 to receive a drug-eluting stent to his left anterior descending artery, to be discharged on dual antiplatelet therapy. He continued to have exertional dyspnea and was referred to Dr. Lozada from cardiothoracic surgery by Dr. Deng for evaluation for surgical repair or replacement of his mitral valve. He was seen in the office by Dr. Lozada and was recommended to undergo mitral valve repair, possible replacement. The usual perioperative course was discussed in detail with the patient and his , risks and benefits were reviewed, all questions were answered, and the patient did consent to surgery. He did obtain dental clearance and was scheduled for surgery 10/31/2018. Due to his recent drug-eluting stent placement, stopping antiplatelet therapy could be detrimental to the patient, so Plavix was stopped 7 days prior to surgery and the patient is being admitted 72 hours prior to surgery for IV antiplatelet medication under the care of Dr. Lozada with consultations placed to cardiology and primary care. - Review of Systems Comment: Review of systems was completed and was negative except as noted. - EENT Ears, nose, mouth and throat: Reports post-nasal drip - Cardiovascular Cardiovascular: Reports dyspnea on exertion, Reports shortness of breath Past Medical History Past Medical History: Coronary Artery Disease (CAD), Diabetes Mellitus, Eye Disorder, Hyperlipidemia, Hypertension, Osteoarthritis (OA) Additional Past Medical History / Comment(s): SOB w/exertion,CATARACTS, sleep apnea without home CPAP use History of Any Multi-Drug Resistant Organisms: None Reported Past Surgical History: Adenoidectomy, Heart Catheterization, Heart Catheterization With Stent, Tonsillectomy Additional Past Surgical History / Comment(s): FAUSTINO,COLONOSCOPY, heart cath 09/11/18, heart catheterization 09/24/2018 with drug-eluting stent placed to the LAD Past Anesthesia/Blood Transfusion Reactions: No Reported Reaction Additional Past Anesthesia/Blood Transfusion Reaction / Comment(s): no hx blood transfusion Past Psychological History: No Psychological Hx Reported Smoking Status: Former smoker Past Alcohol Use History: Rare Additional Past Alcohol Use History / Comment(s): SMOKED FOR 50 YEARS, QUIT 2007 Past Drug Use History: None Reported - Past Family History Father Family Medical History: Cancer, Diabetes Mellitus Additional Family Medical History / Comment(s): BLADDER CANCER Mother Family Medical History: Congestive Heart Failure (CHF) Additional Family Medical History / Comment(s): AT AGE 68 Medications and Allergies Home Medications Medication Instructions Recorded Confirmed Type Aspirin 81 mg PO DAILY 01/04/16 09/24/18 History Atorvastatin [Lipitor] 80 mg PO DAILY 01/04/16 09/24/18 History Cholecalciferol [Vitamin D3 (25 2,000 unit PO DAILY 01/04/16 09/24/18 History Mcg = 1000 Iu)] Desloratadine 5 mg PO DAILY 01/04/16 09/24/18 History Dulaglutide [Trulicity] 1.5 mg SQ MO 01/04/16 09/24/18 History Fenofibrate 160 mg PO AC-SUPPER 01/04/16 09/24/18 History Ferrous Sulfate [Iron (65 MG 325 mg PO DAILY 01/04/16 09/24/18 History Elemental)] Krill Oil 500 mg PO DAILY 01/04/16 09/24/18 History L.acidoph,Paracasei, B.lactis 1 cap PO DAILY 01/04/16 09/24/18 History [Probiotic] Metoprolol Tartrate [Lopressor] 25 mg PO BID #60 tab 01/07/16 09/24/18 Rx Celecoxib [CeleBREX] 200 mg PO DAILY PRN 01/09/17 09/24/18 History Insulin Lispro [humaLOG Kwikpen] 10 unit SQ AC-BID PRN 01/09/17 09/24/18 History Multivitamins, Thera [Multivitamin 1 tab PO DAILY 01/09/17 09/24/18 History (formulary)] Furosemide [Lasix] 40 mg PO DAILY #30 tab 01/13/17 09/24/18 Rx Lisinopril [Prinivil] 20 mg PO DAILY 07/17/18 09/24/18 History Zinc 50 mg PO DAILY 07/17/18 09/24/18 History Ubidecarenone [Co Q-10] 100 mg PO DAILY 09/18/18 09/24/18 History Glimepiride [Amaryl] 1 mg PO AC-BRKFST 10/28/18 10/28/18 History Allergies Allergy/AdvReac Type Severity Reaction Status Date / Time No Known Allergies Allergy Verified 10/28/18 12:13 Surgical - Exam - General well developed, well nourished, no distress, no pain, obese - Eyes normal ocular movement - ENT no hearing loss, poor alf - Neck no masses, no bruits, trachea midline - Respiratory Lungs sounds essentially clear bilaterally. Respirations even, nonlabored. Currently on room air with oxygen saturation 93%. No chest wall deformities. No clubbing or cyanosis. - Cardiovascular S1, S2 present. Regular rate and rhythm, sinus rhythm on telemetry. Palpable peripheral pulses bilaterally. No edema present. No calf pain or tenderness noted. - Abdomen Abdomen: soft, non tender, bowel sounds - Genitourinary Deferred - Rectum Deferred - Integumentary no rash, no growths - Neurologic normal coordination, normal sensation - Musculoskeletal normal gait, normal posture - Psychiatric oriented to time, oriented to person, oriented to place, speech is normal, memory intact Results - Labs 10/28/18 11:27 10/28/18 11:27 Abnormal Lab Results - Last 24 Hours (Table) 10/28/18 10/28/18 10/28/18 Range/Units 11:27 11:27 11:41 RBC 4.22 L (4.30-5.90) m/uL Hgb 12.9 L (13.0-17.5) gm/dL BUN 47 H (9-20) mg/dL Creatinine 2.11 H (0.66-1.25) mg/dL Glucose 100 H (74-99) mg/dL POC Glucose (mg/dL) 106 H (75-99) mg/dL Alkaline Phosphatase 35 L (38-126) U/L Triglycerides 208 H (<150) mg/dL HDL Cholesterol 27 L (40-60) mg/dL Diabetes panel 10/28/18 Range/Units 11:27 Sodium 141 (137-145) mmol/L Potassium 4.8 (3.5-5.1) mmol/L Chloride 104 (98-107) mmol/L Carbon Dioxide 27 (22-30) mmol/L BUN 47 H (9-20) mg/dL Creatinine 2.11 H (0.66-1.25) mg/dL Glucose 100 H (74-99) mg/dL Calcium 10.1 (8.4-10.2) mg/dL AST 32 (17-59) U/L ALT 30 (21-72) U/L Alkaline Phosphatase 35 L (38-126) U/L Total Protein 7.3 (6.3-8.2) g/dL Albumin 4.4 (3.5-5.0) g/dL Triglycerides 208 H (<150) mg/dL HDL Cholesterol 27 L (40-60) mg/dL Calcium panel 10/28/18 Range/Units 11:27 Calcium 10.1 (8.4-10.2) mg/dL Albumin 4.4 (3.5-5.0) g/dL Pituitary panel 10/28/18 Range/Units 11:27 Sodium 141 (137-145) mmol/L Potassium 4.8 (3.5-5.1) mmol/L Chloride 104 (98-107) mmol/L Carbon Dioxide 27 (22-30) mmol/L BUN 47 H (9-20) mg/dL Creatinine 2.11 H (0.66-1.25) mg/dL Glucose 100 H (74-99) mg/dL Calcium 10.1 (8.4-10.2) mg/dL Adrenal panel 10/28/18 Range/Units 11:27 Sodium 141 (137-145) mmol/L Potassium 4.8 (3.5-5.1) mmol/L Chloride 104 (98-107) mmol/L Carbon Dioxide 27 (22-30) mmol/L BUN 47 H (9-20) mg/dL Creatinine 2.11 H (0.66-1.25) mg/dL Glucose 100 H (74-99) mg/dL Calcium 10.1 (8.4-10.2) mg/dL Total Bilirubin 0.6 (0.2-1.3) mg/dL AST 32 (17-59) U/L ALT 30 (21-72) U/L Alkaline Phosphatase 35 L (38-126) U/L Total Protein 7.3 (6.3-8.2) g/dL Albumin 4.4 (3.5-5.0) g/dL Assessment and Plan Assessment: 1. Severe nonrheumatic mitral valve regurgitation 2. Coronary artery disease with recent drug-eluting stent to the LAD on 09/24/2018 3. Chronic diastolic heart failure 4. Hypertension 5. Hyperlipidemia 6. Type 2 diabetes mellitus with peripheral neuropathy 7. Chronic kidney disease with creatinine baseline around 2 8. Obstructive sleep apnea without home CPAP use 9. Pulmonary hypertension 10. Obesity 11. Osteoarthritis 12. Previous pipe tobacco dependence Plan: The patient was seen and examined at the bedside. Previous chart reviewed. Heart catheterization films and echocardiogram films reviewed. Our plan is for mitral valve repair, possible replacement with ligation of the left atrial appendage and intraoperative transesophageal echocardiogram on 10/31/2018. We will begin IV Aggrastat for antiplatelet therapy to prevent in-stent stenosis of his recently placed drug-eluting stent, continue to hold Plavix. Continue to maximize medical therapy with aspirin, statin, beta sun therapy. Home medications reviewed with the patient and his and appropriately ordered. Consultations placed to primary care and cardiology. Will obtain preoperative testing and consulted pulmonology. Incentive spirometry was ordered and should be encouraged. Increase activity, encourage ambulation in the hallway. Will monitor labs and diagnostics. STS risk score will be calculated and discussed with the patient. More recommendations to follow based on patient's clinical course. Time with Patient: Greater than 30
[2018-10-28] MEDS: INSULIN ASPART (NovoLOG) 100 UNIT/ML VIAL SQ SCH ×3 (13:42→21:00)
--- NOTE | 2018-10-28 13:50 | XR ---
EXAMINATION TYPE: XR chest 2V DATE OF EXAM: 10/28/2018 HISTORY: PreOp Cardiac Surgery. REFERENCE: Previous study dated 01/12/2017. FINDINGS: The heart is enlarged. The lungs are clear. Pleural spaces are clear. IMPRESSION: CARDIOMEGALY.
[2018-10-28] MEDS: PENICILLIN V POTASSIUM 250 MG TAB PO SCH ×3 (14:36→22:05)
[2018-10-28] MEDS: FUROSEMIDE 40 MG TAB PO SCH (14:36)
[2018-10-28] MEDS: TIROFIBAN 12.5MG-250ML NS 250 ML IV SCH (14:39)
[2018-10-28 15:51] LABS: Appearance,Urine Clear (Clear); Bilirubin,Urine Negative (Negative); Blood,Urine Negative (Negative); Color,Urine Yellow; Glucose,Urine (UA) Negative (Negative); Ketones,Urine Negative (Negative); Leukocyte Esterase,Urine Negative (Negative); Nitrite,Urine Negative (Negative); Protein,Urine Negative (Negative); Specific Gravity,Urine 1.014 (1.001-1.035); Urobilinogen,Urine <2.0 mg/dL (<2.0)
[2018-10-28 16:44] LABS: Glucose,Whole Blood 109 mg/dL (75-99)
[2018-10-28] MEDS: FENOFIBRATE 160 MG TAB PO SCH (17:30)
[2018-10-28 20:31] LABS: Glucose,Whole Blood 227 mg/dL (75-99)
[2018-10-28] MEDS: METOPROLOL TARTRATE 25 MG TAB PO SCH (20:59)
[2018-10-28] MEDS: ATORVASTATIN 80 MG TAB PO SCH (20:59)
[2018-10-28] MEDS: MUPIROCIN 2% OINT 22 GM TUBE NASAL SCH (21:03)
--- NOTE | 2018-10-28 21:18 | P.CRDCN ---
History of Present Illness History of present illness: Patient interviewed and examined. Admitted and the CT surgery for mitral valve repair by Dr. Lozada Patient has been complaining of shortness of breath with average exertion despi te cautery stenting to the LAD in the recent months Is transesophageal echo showed severe mitral regurgitation which is eccentric I reviewed the FAUSTINO images with . The patient subsequently and recommended that he proceed with mitral valve surgery and bridging with Tirofiban No orthopnea no PND no chest discomfort upon my examination Shortness of breath with exertion Plavix stopped recently and being admitted [place] to 2 hours prior to surgery for Tirofiban therapy for bridging Past history of mitral valve regurgitation Cautery stenting to a 70% LAD recently Hypertension Central obesity Diabetes Dyslipidemia Sleep apnea refuses to use a CPAP mask Past history of smoking Medications reviewed and include aspirin and atorvastatin diabetes medications fenofibrate metoprolol insulin Lasix lisinopril No known drug allergies Review of systems No fever chills or rigors A cough from her expectoration No nausea vomiting or diarrhea No hematuria dysuria No strokes or seizures No skin lesions at this time Labs are reviewed potassium is 4.8 BUN 47 and creatinine 2.1 normal liver f unction, elevated triglycerides, HDL 27 hemoglobin 12.9, LDL 79 On examination blood pressure 136/72 me what his mercury afebrile 97.9F, pulse rate in the 70s normal respirations no orthopnea Breath sounds are clear no rhonchi no crackles Pansystolic murmur over the apex Abdomen soft nontender No lower extremity edema No JVD Impression Severe mitral valve regurgitation awaiting mitral valve surgery Single-vessel coronary artery disease, LAD, status post stenting Central obesity Chronic kidney disease creatinine 2.1 Septal sleep apnea not using CPAP mask Hypertension Type 2 diabetes Suggest Plavix is on hold. IV Tirofiban is being administered for the next 72 hours and then [place] surgery be performed. Following which Plavix will be resumed Continue other cardiac medications at this time Past Medical History Past Medical History: Coronary Artery Disease (CAD), Diabetes Mellitus, Eye Disorder, Hyperlipidemia, Hypertension, Osteoarthritis (OA) Additional Past Medical History / Comment(s): SOB w/exertion,CATARACTS, sleep apnea without home CPAP use History of Any Multi-Drug Resistant Organisms: None Reported Past Surgical History: Adenoidectomy, Heart Catheterization, Heart Catheterization With Stent, Tonsillectomy Additional Past Surgical History / Comment(s): FAUSTINO,COLONOSCOPY, heart cath 09/11/18, heart catheterization 09/24/2018 with drug-eluting stent placed to the LAD Past Anesthesia/Blood Transfusion Reactions: No Reported Reaction Additional Past Anesthesia/Blood Transfusion Reaction / Comment(s): no hx blood transfusion Date of Last Stent Placement:: September 2018 Past Psychological History: No Psychological Hx Reported Smoking Status: Former smoker Past Alcohol Use History: Rare Additional Past Alcohol Use History / Comment(s): SMOKED FOR 50 YEARS, QUIT 2007 Past Drug Use History: None Reported - Past Family History Father Family Medical History: Cancer, Diabetes Mellitus Additional Family Medical History / Comment(s): BLADDER CANCER Mother Family Medical History: Congestive Heart Failure (CHF) Additional Family Medical History / Comment(s): AT AGE 68 Medications and Allergies Home Medications Medication Instructions Recorded Confirmed Type Aspirin 81 mg PO DAILY 01/04/16 10/28/18 History Atorvastatin [Lipitor] 80 mg PO DAILY 01/04/16 10/28/18 History Cholecalciferol [Vitamin D3 (25 2,000 unit PO DAILY 01/04/16 10/28/18 History Mcg = 1000 Iu)] Desloratadine 5 mg PO DAILY 01/04/16 10/28/18 History Dulaglutide [Trulicity] 1.5 mg SQ MO 01/04/16 10/28/18 History Fenofibrate 160 mg PO AC-SUPPER 01/04/16 10/28/18 History Ferrous Sulfate [Iron (65 MG 325 mg PO DAILY 01/04/16 10/28/18 History Elemental)] Krill Oil 500 mg PO DAILY 01/04/16 10/28/18 History L.acidoph,Paracasei, B.lactis 1 cap PO DAILY 01/04/16 10/28/18 History [Probiotic] Metoprolol Tartrate [Lopressor] 25 mg PO BID #60 tab 01/07/16 10/28/18 Rx Celecoxib [CeleBREX] 200 mg PO DAILY PRN 01/09/17 10/28/18 History Insulin Lispro [humaLOG Kwikpen] 10 unit SQ AC-BID@0800,1600 PRN 01/09/17 10/28/18 History Multivitamins, Thera [Multivitamin 1 tab PO DAILY 01/09/17 10/28/18 History (formulary)] Furosemide [Lasix] 40 mg PO DAILY #30 tab 01/13/17 10/28/18 Rx Lisinopril [Prinivil] 20 mg PO DAILY 07/17/18 10/28/18 History Zinc 50 mg PO DAILY 07/17/18 10/28/18 History Ubidecarenone [Co Q-10] 100 mg PO DAILY 09/18/18 10/28/18 History Glimepiride [Amaryl] 1 mg PO AC-BRKFST 10/28/18 10/28/18 History Allergies Allergy/AdvReac Type Severity Reaction Status Date / Time No Known Allergies Allergy Verified 10/28/18 12:13 Physical Exam Vitals: Vital Signs Temp Pulse Resp BP Pulse Ox 10/28/18 15:55 98 F 66 18 151/76 92 L 10/28/18 12:00 97.9 F 71 18 136/72 93 L Intake and Output 10/28/18 10/28/18 10/28/18 06:59 14:59 22:59 Intake Total 240 Output Total 250 Balance 240 -250 Intake: Oral 240 Output: Urine 250 Other: Weight 101.4 kg Results 10/28/18 11:27 10/28/18 11:27 Cardiac Enzymes 10/28/18 Range/Units 11:27 AST 32 (17-59) U/L Coagulation 10/28/18 Range/Units 11:27 PT 10.7 (9.0-12.0) sec APTT 24.9 (22.0-30.0) sec Lipids 10/28/18 Range/Units 11:27 Triglycerides 208 H (<150) mg/dL Cholesterol 148 (<200) mg/dL HDL Cholesterol 27 L (40-60) mg/dL CBC 10/28/18 Range/Units 11:27 WBC 7.0 (3.8-10.6) k/uL RBC 4.22 L (4.30-5.90) m/uL Hgb 12.9 L (13.0-17.5) gm/dL Hct 39.4 (39.0-53.0) % Plt Count 199 (150-450) k/uL Comprehensive Metabolic Panel 10/28/18 Range/Units 11:27 Sodium 141 (137-145) mmol/L Potassium 4.8 (3.5-5.1) mmol/L Chloride 104 (98-107) mmol/L Carbon Dioxide 27 (22-30) mmol/L BUN 47 H (9-20) mg/dL Creatinine 2.11 H (0.66-1.25) mg/dL Glucose 100 H (74-99) mg/dL Calcium 10.1 (8.4-10.2) mg/dL AST 32 (17-59) U/L ALT 30 (21-72) U/L Alkaline Phosphatase 35 L (38-126) U/L Total Protein 7.3 (6.3-8.2) g/dL Albumin 4.4 (3.5-5.0) g/dL Current Medications Generic Name Dose Route Start Last Admin Trade Name Freq PRN Reason Stop Dose Admin Acetaminophen 650 mg 10/28/18 10:58 Tylenol Tab PO Q6HR PRN Mild Pain or Fever > 100.5 Aspirin 81 mg 10/29/18 09:00 Aspirin PO DAILY [facility] Atorvastatin Calcium 80 mg 10/28/18 21:00 10/28/18 20:59 Lipitor PO 80 mg HS JAIME Administration Cholecalciferol 2,000 unit 10/29/18 09:00 Vitamin D3 (25 Mcg = 1000 Iu) PO DAILY [facility] Fenofibrate 160 mg 10/28/18 17:30 10/28/18 17:30 Lofibra PO 160 mg AC-SUPPER JAIME Administration Ferrous Sulfate 325 mg 10/29/18 09:00 Feosol PO DAILY [facility] Furosemide 40 mg 10/28/18 12:15 10/28/18 14:36 Lasix PO 40 mg DAILY JAIME Administration Glimepiride 4 mg 10/29/18 07:30 Amaryl PO AC-BRKFST [facility] Tirofiban/Sodium Chloride 250 mls @ 9.126 mls/hr 10/28/18 12:30 10/28/18 14:39 Aggrastat 12.5 Mg/250 Ml Ns IV 10/30/18 20:00 9.126 mls/hr .Q24H JAIME Administration 0.075 MCG/KG/MIN Insulin Aspart 0 unit 10/28/18 12:30 10/28/18 21:00 Novolog SQ 3 unit ACHS JAIME Administration Protocol Lisinopril 20 mg 10/29/18 09:00 Zestril PO DAILY JAIME Loratadine 10 mg 10/28/18 12:01 Claritin PO DAILY PRN Allergy Symptoms Metoprolol Tartrate 25 mg 10/28/18 21:00 10/28/18 20:59 Lopressor PO 25 mg BID [facility] Administration Multivitamins 1 each 10/29/18 09:00 Theragran PO DAILY [facility] Mupirocin 1 applic 10/28/18 21:00 10/28/18 21:03 Bactroban Oint NASAL 11/02/18 21:01 1 applic BID [facility] Administration Pantoprazole Sodium 40 mg 10/29/18 07:30 Protonix PO AC-BRKFST [facility] Penicillin V Potassium 500 mg 10/28/18 13:00 10/28/18 17:30 Pen Vee K PO 500 mg QID [facility] Administration Sodium Chloride 10 ml 10/28/18 11:15 10/28/18 21:06 Saline Flush IV 10 ml BID [facility] Administration Intake and Output 10/28/18 10/28/18 10/28/18 06:59 14:59 22:59 Intake Total 240 Output Total 250 Balance 240 -250 Intake: Oral 240 Output: Urine 250 Other: Weight 101.4 kg Patient Weight 10/29/18 06:59 Weight 101.4 kg 10/28/18 11:27 10/28/18 11:27
[2018-10-29 06:20] LABS: Basophils # (A) 0.1 k/uL (0-0.2); Basophils % (A) 1 %; Eosinophils # (A) 0.3 k/uL (0-0.7); Eosinophils % (A) 5 %; HCT 40.6 % (39.0-53.0); HGB 13.2 gm/dL (13.0-17.5); Lymphocytes # (A) 1.4 k/uL (1.0-4.8); Lymphocytes % (A) 24 %; MCH 30.5 pg (25.0-35.0); MCHC 32.4 g/dL (31.0-37.0); MCV 93.9 fL (80.0-100.0); Mean Platelet Volume 6.8; Monocytes # (A) 0.6 k/uL (0-1.0); Monocytes % (A) 9 %; Neutrophils # (A) 3.6 k/uL (1.3-7.7); Neutrophils % (A) 58 %; Platelet Count 221 k/uL (150-450); RBC 4.33 m/uL (4.30-5.90); RDW 14.8 % (11.5-15.5); WBC 6.1 k/uL (3.8-10.6)
[2018-10-29 06:21] LABS: Glucose,Whole Blood 87 mg/dL (75-99)
[2018-10-29 06:26] LABS: Calcium 9.8 mg/dL (8.4-10.2); Potassium 4.7 mmol/L (3.5-5.1)
[2018-10-29] MEDS: PANTOPRAZOLE 40 MG TABLET PO SCH (06:42)
[2018-10-29] MEDS: GLIMEPIRIDE 4 MG TAB PO SCH (06:42)
[2018-10-29] MEDS: INSULIN ASPART (NovoLOG) 100 UNIT/ML VIAL SQ SCH ×4 (07:46→21:22)
--- NOTE | 2018-10-29 08:00 | P.PN ---
Subjective Progress Note Date: 10/29/18 Principal diagnosis: Severe mitral valve regurgitation. Previous medical history of coronary artery disease with recent drug-eluting stent placed to the LAD on 09/24/2018, chronic diastolic heart failure, hypertension, hyperlipidemia, type 2 diabetes mellitus with peripheral neuropathy, chronic kidney disease with baseline creatinine around 2, obstructive sleep apnea without home CPAP use, pulmonary hypertension, obesity, osteoarthritis, previous pipe tobacco use. Preoperative tooth abscess with extraction and antibiotic administration, cleared for surgery by dentist. The patient is currently sitting up in the recliner on the cardiac stepdown unit in no acute distress eating breakfast. Denies any chest pain or shortness of breath. Patient he has ambulated in the hallway. No new concerns at this time. Objective - Vital Signs Vital signs: Vital Signs Temp 98.2 F 10/29/18 04:00 Pulse 61 10/29/18 04:00 Resp 16 10/29/18 04:00 BP 151/69 10/29/18 04:00 Pulse Ox 96 10/29/18 04:00 Intake & Output 10/28/18 10/29/18 10/29/18 18:59 06:59 18:59 Intake Total 240 480 Output Total 250 250 Balance -10 230 Weight 101.4 kg 98.4 kg Intake: Oral 240 480 Output: Urine 250 250 Other: Voiding Method Toilet # Voids 200 # Bowel Movements 1 - Constitutional General appearance: Present: cooperative, no acute distress, obese - Respiratory Details: Lungs sounds essentially clear bilaterally. Respirations even, nonlabored. Currently on room air with oxygen saturation 96%. Only able to achieve 1000 mL on his incentive spirometry. Strong cough. - Cardiovascular Details: S1, S2 present but distant. Regular rate and rhythm, sinus rhythm on telemetry. Palpable peripheral pulses bilaterally. No edema present. No calf pain or tenderness noted. - Gastrointestinal Gastrointestinal Comment(s): Abdomen soft, nontender, nondistended. Active bowel sounds present 4 quadrants. Tolerating diet. Positive bowel movement this morning. - Genitourinary Genitourinary Comment(s): Continues to void clear, yellow urine per urinal. - Integumentary Integumentary Comment(s): Skin is warm and dry with evidence of good perfusion. - Neurologic Neurologic: Present: CNII-XII intact - Musculoskeletal Musculoskeletal: Present: gait normal, strength equal bilaterally - Psychiatric Psychiatric: Present: A&O x's 3, appropriate affect, intact judgment & insight - Allied health notes Allied health notes reviewed: nursing - Labs CBC & Chem 7: 10/29/18 06:01 10/29/18 06:01 Labs: Abnormal Lab Results - Last 24 Hours (Table) 10/28/18 10/28/18 10/28/18 Range/Units 11:27 11:27 11:41 RBC 4.22 L (4.30-5.90) m/uL Hgb 12.9 L (13.0-17.5) gm/dL BUN 47 H (9-20) mg/dL Creatinine 2.11 H (0.66-1.25) mg/dL Glucose 100 H (74-99) mg/dL POC Glucose (mg/dL) 106 H (75-99) mg/dL Alkaline Phosphatase 35 L (38-126) U/L Triglycerides 208 H (<150) mg/dL HDL Cholesterol 27 L (40-60) mg/dL 10/28/18 10/28/18 10/29/18 Range/Units 16:39 20:29 06:01 RBC (4.30-5.90) m/uL Hgb (13.0-17.5) gm/dL BUN 51 H (9-20) mg/dL Creatinine 2.17 H (0.66-1.25) mg/dL Glucose (74-99) mg/dL POC Glucose (mg/dL) 109 H 227 H (75-99) mg/dL Alkaline Phosphatase (38-126) U/L Triglycerides (<150) mg/dL HDL Cholesterol (40-60) mg/dL Microbiology - Last 24 Hours (Table) 10/28/18 15:30 Urine Culture - Preliminary Urine,Clean Catch 10/28/18 12:00 Nasal Screen MRSA/MSSA - Preliminary Nasal Swab - Imaging and Cardiology Chest x-ray: report reviewed, image reviewed Assessment and Plan Assessment: 1. Severe nonrheumatic mitral valve regurgitation 2. Coronary artery disease with recent drug-eluting stent to the LAD on 09/24/2018 3. Chronic diastolic heart failure 4. Hypertension 5. Hyperlipidemia 6. Type 2 diabetes mellitus with peripheral neuropathy 7. Chronic kidney disease with creatinine baseline around 2 8. Obstructive sleep apnea without home CPAP use 9. Pulmonary hypertension 10. Obesity 11. Osteoarthritis 12. Previous pipe tobacco dependence 13. Preoperative tooth abscess with extraction and antibiotics Plan: 1. Continue aspirin, statin, beta sun therapy. Will discontinue DAYA inhibitor 48 hours prior to surgery to prevent postoperative hypotension. 2. Continue IV Aggrastat for antiplatelet therapy to prevent in-stent stenosis of his recently placed drug-eluting stent. Will discontinue the night before surgery to allow clearance to reduce risk of bleeding intra and postoperatively. 3. Preoperative testing ordered including carotid dopplers and pulmonary function testing. 4. Encourage incentive spirometry use. 5. Increase activity, ambulate in hallway. 6. Will monitor daily labs. 7. STS risk score will be calculated once testing is completed and discussed with the patient. 8. Will meet with patient and family this morning to review preoperative teaching and answer any questions. 9. Our plan is for mitral valve repair, possible replacement with ligation of the left atrial appendage and intraoperative transesophageal echocardiogram on 10/31/[address] Lozada. 10. Appreciate consultants recommendations. 11. More recommendations to follow. Time with Patient: Greater than 30
[2018-10-29] MEDS ORDERED: NON FORMULARY DRUG (Zinc [Zinc] 50 MG) PO SCH (09:00)
[2018-10-29] MEDS ORDERED: LISINOPRIL 20 MG TAB PO SCH (09:00)
[2018-10-29] MEDS: METOPROLOL TARTRATE 25 MG TAB PO SCH ×2 (09:19→21:22)
[2018-10-29] MEDS: FUROSEMIDE 40 MG TAB PO SCH (09:19)
[2018-10-29] MEDS: PENICILLIN V POTASSIUM 250 MG TAB PO SCH ×4 (09:19→21:22)
[2018-10-29] MEDS: MUPIROCIN 2% OINT 22 GM TUBE NASAL SCH ×2 (09:19→21:22)
[2018-10-29] MEDS: MULTIVITAMINS, THERA 1 EACH TAB PO SCH (09:19)
[2018-10-29] MEDS: CHOLECALCIFEROL 1,000 UNIT TAB PO SCH (09:19)
[2018-10-29] MEDS: FERROUS SULFATE 325 MG TAB PO SCH (09:19)
[2018-10-29] MEDS: ASPIRIN 81 MG PO SCH (09:20)
--- NOTE | 2018-10-29 09:21 | P.PN ---
Subjective Progress Note Date: 10/29/18 Principal diagnosis: Severe mitral regurgitation This is a 73-year-old gentleman with CAD and prior stenting of the LAD, severe mitral regurgitation, was admitted to the hospital to undergo mitral valve repair in the next few days. On follow-up with her today, he is doing overall good. He denies any chest pain or chest discomfort or shortness of breath at this point. Objective - Vital Signs Vital signs: Vital Signs Temp 97.6 F 10/29/18 09:14 Pulse 62 10/29/18 09:14 Resp 18 10/29/18 09:14 BP 129/59 10/29/18 09:14 Pulse Ox 97 10/29/18 09:14 Intake & Output 10/28/18 10/29/18 10/29/18 18:59 06:59 18:59 Intake Total 240 480 360 Output Total 250 250 550 Balance -10 230 -190 Weight 101.4 kg 98.4 kg Intake: Oral 240 480 360 Output: Urine 250 250 550 Other: Voiding Method Toilet # Voids 200 # Bowel Movements 1 - Constitutional General appearance: Present: no acute distress - Respiratory Respiratory: bilateral: CTA - Cardiovascular Rhythm: regular Heart sounds: normal: S1, S2 Abnormal Heart Sounds: Present: systolic murmur - Labs CBC & Chem 7: 10/29/18 06:01 10/29/18 06:01 Labs: Abnormal Lab Results - Last 24 Hours (Table) 10/28/18 10/28/18 10/28/18 Range/Units 11:27 11:27 11:41 RBC 4.22 L (4.30-5.90) m/uL Hgb 12.9 L (13.0-17.5) gm/dL BUN 47 H (9-20) mg/dL Creatinine 2.11 H (0.66-1.25) mg/dL Glucose 100 H (74-99) mg/dL POC Glucose (mg/dL) 106 H (75-99) mg/dL Alkaline Phosphatase 35 L (38-126) U/L Triglycerides 208 H (<150) mg/dL HDL Cholesterol 27 L (40-60) mg/dL 10/28/18 10/28/18 10/29/18 Range/Units 16:39 20:29 06:01 RBC (4.30-5.90) m/uL Hgb (13.0-17.5) gm/dL BUN 51 H (9-20) mg/dL Creatinine 2.17 H (0.66-1.25) mg/dL Glucose (74-99) mg/dL POC Glucose (mg/dL) 109 H 227 H (75-99) mg/dL Alkaline Phosphatase (38-126) U/L Triglycerides (<150) mg/dL HDL Cholesterol (40-60) mg/dL Microbiology - Last 24 Hours (Table) 10/28/18 15:30 Urine Culture - Preliminary Urine,Clean Catch 10/28/18 12:00 Nasal Screen MRSA/MSSA - Preliminary Nasal Swab Assessment and Plan Assessment: Assessment #1 CAD and status post LAD stenting #2 severe mitral regurgitation #3 multiple comorbid conditions including hypertension and dyslipidemia Plan #1 continue the current medical regimen #2 the patient is going to undergo mitral valve repair in the next few days
--- NOTE | 2018-10-29 09:51 | US ---
EXAMINATION TYPE: US carotid duplex BILAT DATE OF EXAM: 10/29/2018 COMPARISON: CT chest January 05, 2016 CLINICAL HISTORY: preop open heart; CAD; diabetic, prior pipe smoker x 35 years EXAM MEASUREMENTS: RIGHT: Peak Systolic Velocity (PSV) cm/sec ----- Right CCA: 54.9 ----- Right ICA: 110.2 ----- Right ECA: 64.6 ICA/CCA ratio: 2.0 RIGHT: End Diastole cm/sec ----- Right CCA: 9.5 ----- Right ICA: 18.2 ----- Right ECA: 0.0 LEFT: Peak Systolic Velocity (PSV) cm/sec ----- Left CCA: 42.8 ----- Left ICA: 80.9 ----- Left ECA: 64.9 ICA/CCA ratio: 1.9 LEFT: End Diastole cm/sec ----- Left CCA: 8.7 ----- Left ICA: 21.9 ----- Left ECA: 0.0 VERTEBRALS (direction of flow): Right Vertebral: Antegrade Left Vertebral: Antegrade Rhythm: Normal Platt scale images show mild to moderate eccentric plaque bilaterally centered near bilateral carotid bulbs. Velocity measurements and ratios remain within normal limits bilaterally. IMPRESSION: Mild to moderate atherosclerotic changes without hemodynamically significant stenosis in either internal carotid artery. Criteria for Assigning % of Stenosis / Diameter reduction (Estimation based on the indirect measurements of the internal carotid artery velocities (ICA PSV). 1. Normal (no stenosis)=ICA PSV < 125 cm/s: ratio < 2.0: ICA EDV<40 cm/s. 2. Less than 50% stenosis=ICA PSV < 125 cm/s: ratio < 2.0: ICA EDV<40 cm/s. 3. 50 to 69% stenosis=ICA PSV of 125 to 230 cm/s: ration 2.0 ? 4.0: ICA EDV 40-100 cm/s. 4. Greater than 70% stenosis to near occlusion= ICA PSV > 230 cm/s: ratio > 4.0: ICA EDV > 100 cm/s. 5. Near occlusion= ICA PSV velocities may be low or undetectable: variable ratio and ICA EDV. 6. Total occlusion=unable to detect flow.
--- NOTE | 2018-10-29 11:32 | P.PN ---
Subjective Patient is admitted for mitral valve replacement patient is clinically doing well at this time patient is on the IV antiplatelet therapy with the tirofiban. His insight review of systems a progress note Constitutional: Denied any fatigue denied any fever. Cardio vascular: denied any chest pain, palpitations Gastrointestinal denied any nausea vomiting Pulmonary: Denied any shortness of breath cough Neurologic denied any new focal deficits All inpatient medications were reviewed and appropriate changes in these medications as dictated in the interval history and assessment and plan. Objective - Vital Signs Vital signs: Vital Signs Temp 97.7 F 10/29/18 11:08 Pulse 62 10/29/18 11:08 Resp 18 10/29/18 11:08 BP 119/67 10/29/18 11:08 Pulse Ox 98 10/29/18 11:08 Intake & Output 10/28/18 10/29/18 10/29/18 18:59 06:59 18:59 Intake Total 240 480 360 Output Total 250 250 550 Balance -10 230 -190 Weight 101.4 kg 98.4 kg Intake: Oral 240 480 360 Output: Urine 250 250 550 Other: Voiding Method Toilet # Voids 200 # Bowel Movements 1 - Exam PHYSICAL EXAMINATION: GENERAL: The patient is alert and oriented x3, not in any acute distress. Well developed, well nourished. HEENT: Pupils are round and equally reacting to light. EOMI. No scleral icterus. No conjunctival pallor. Normocephalic, atraumatic. No pharyngeal erythema. No thyromegaly. CARDIOVASCULAR: S1 and S2 present. No murmurs, rubs, or gallops. PULMONARY: Chest is clear to auscultation, no wheezing or crackles. ABDOMEN: Soft, nontender, nondistended, normoactive bowel sounds. No palpable organomegaly. MUSCULOSKELETAL: No joint swelling or deformity. EXTREMITIES: No cyanosis, clubbing, or pedal edema. NEUROLOGICAL: Gross neurological examination did not reveal any focal deficits. SKIN: No rashes. - Labs CBC & Chem 7: 10/29/18 06:01 10/29/18 06:01 Labs: Abnormal Lab Results - Last 24 Hours (Table) 10/28/18 10/28/18 10/28/18 Range/Units 11:27 11:27 11:27 RBC 4.22 L (4.30-5.90) m/uL Hgb 12.9 L (13.0-17.5) gm/dL BUN 47 H (9-20) mg/dL Creatinine 2.11 H (0.66-1.25) mg/dL Glucose 100 H (74-99) mg/dL POC Glucose (mg/dL) (75-99) mg/dL Hemoglobin A1c 7.0 H (4.0-6.0) % Alkaline Phosphatase 35 L (38-126) U/L Triglycerides 208 H (<150) mg/dL HDL Cholesterol 27 L (40-60) mg/dL 10/28/18 10/28/18 10/28/18 Range/Units 11:41 16:39 20:29 RBC (4.30-5.90) m/uL Hgb (13.0-17.5) gm/dL BUN (9-20) mg/dL Creatinine (0.66-1.25) mg/dL Glucose (74-99) mg/dL POC Glucose (mg/dL) 106 H 109 H 227 H (75-99) mg/dL Hemoglobin A1c (4.0-6.0) % Alkaline Phosphatase (38-126) U/L Triglycerides (<150) mg/dL HDL Cholesterol (40-60) mg/dL 10/29/18 Range/Units 06:01 RBC (4.30-5.90) m/uL Hgb (13.0-17.5) gm/dL BUN 51 H (9-20) mg/dL Creatinine 2.17 H (0.66-1.25) mg/dL Glucose (74-99) mg/dL POC Glucose (mg/dL) (75-99) mg/dL Hemoglobin A1c (4.0-6.0) % Alkaline Phosphatase (38-126) U/L Triglycerides (<150) mg/dL HDL Cholesterol (40-60) mg/dL Microbiology - Last 24 Hours (Table) 10/28/18 15:30 Urine Culture - Preliminary Urine,Clean Catch 10/28/18 12:00 Nasal Screen MRSA/MSSA - Preliminary Nasal Swab Assessment and Plan Plan: -Severe mitral regurgitation: Patient will undergo mitral valve replacement valve replacement on Monday , patient's antiplatelet therapy will be transitioned to tirofiban because of his recent stent. And this will be stopped shortly before surgery and antiplatelet therapy will be resumed after surgery. -Carotid disease with recent myocardial infarction and stenting -Severe pulmonary hypertension -Chronic diastolic dysfunction without any acute exacerbation patient is euvolemic will be resumed on his home dose of Lasix -Chronic kidney disease stage III creatinine at his baseline baseline is 2.11 -Hyperlipidemia -Gastroesophageal reflux disease -Type 2 diabetes mellitus with diabetic nephropathy: Patient will be resumed on home regimen titration of insulin and diabetic medications depending on his blood sugars here DVT prophylaxis: As per primary service
[2018-10-29 11:35] LABS: Hepatitis A Antibody IgM Non-Reactive (Non-Reactive); Hepatitis B Core IgM Non-Reactive (Non-Reactive); Hepatitis B Surface Antigen Non-Reactive (Non-Reactive); Hepatitis C IgG Antibody Non-Reactive (Non-Reactive)
[2018-10-29 11:50] LABS: Glucose,Whole Blood 101 mg/dL (75-99)
[2018-10-29] MEDS: TIROFIBAN 12.5MG-250ML NS 250 ML IV SCH (12:06)
--- NOTE | 2018-10-29 12:33 | CONS ---
CONSULTATION PULMONARY/CRITICAL CARE CONSULTATION: DATE OF CONSULTATION: October 29, 2018 This is a 73-year-old male who apparently is scheduled for either mitral valve repair or mitral valve replacement on Monday of this week. The patient was admitted to the hospital on the 28 of October. He apparently came in having had a cardiac catheterization and stenting in August. He apparently has been on dual antiplatelet therapy and the patient is going to get either valve repair or replacement on Monday of this week. The surgeon is Dr. Lozada. We were asked to see the patient in anticipation of the surgery and so that we could be aware of any potential pulmonary issues and determine whether not the patient's operative risk is excessive. It appears not to be the case. The patient did smoke a pipe for many years. Did not inhale. Did not smoke cigarettes. Does not use any oxygen at home. Does not take any breathing treatments at home. The patient does have a history of the mitral regurgitation, diabetes mellitus, hyperlipidemia, hypertension, and cataracts. Other medical problems are not noted. Currently, he is resting comfortably. His and daughter are in the room. He is not wearing any supplemental oxygen. Not getting any IV fluids. His primary care physician is Dr. Patel. His surgeon is Dr. Lozada. PAST MEDICAL HISTORY: Past medical history includes diabetes mellitus, cataracts, hypertension, hyperlipidemia, valvular heart disease. SURGICAL HISTORY: Surgical history includes adenoidectomy, heart catheterization, tonsillectomy. He does have a history of CAD and recently had a catheterization and stent placement. The patient has also had a transesophageal echocardiogram, colonoscopy and a recent heart catheterization September 11, 2018. SOCIAL HISTORY: Positive for previous tobacco use. He was a pipe smoker. Did not inhale. Denies any tobacco use in any other form. Denies any significant alcohol use. No illicit drug use. He quit smoking his pipe 11 years ago. FAMILY HISTORY: Family history is positive for diabetes mellitus, bladder cancer, congestive heart failure. HOME MEDICATIONS: Home medications included aspirin, Lipitor, vitamin D3, loratadine/desloratadine, Trulicity, fenofibrate, iron, Krill oil, Probiotic, metoprolol, Celebrex, insulin, multivitamins Lasix, Prinivil, Zinc, coenzyme Q, and Amaryl. ALLERGIES: Allergies are denied. REVIEW OF SYSTEMS: CONSTITUTIONAL: Negative. NEUROLOGIC: Negative. HEENT: Negative. CARDIOVASCULAR: Negative. PULMONARY: Negative. GI: Negative. : Negative. RHEUMATOLOGIC: Negative. IMMUNOLOGIC: Negative. ENDOCRINOLOGIC: Negative. DERMATOLOGIC: Negative. PHYSICAL EXAMINATION: VITAL SIGNS: Current vital signs I reviewed. Temperature 97.7, heart rate 62, respiratory rate 18, blood pressure 119/67, mean 84, room air saturation 98%. Appears in no acute distress. HEENT: Examination is grossly unremarkable. Mucous membranes are moist. No oral lesions. NECK: Supple. Full range of motion. No adenopathy or thyromegaly. Neck veins are flat. CARDIOVASCULAR: Examination reveals regular rhythm and rate. Soft murmur noted. No S3, S4. S1, S2 normal. Heart sounds are distant. LUNGS: Reveal clear breath sounds. No wheezes, rhonchi, or crackles. Breath sounds equal bilaterally. ABDOMEN: Obese. Bowel sounds are heard. EXTREMITIES: Are intact. No cyanosis, clubbing, or edema. SKIN: Without rash. NEUROLOGIC: Examination is nonfocal. LABS: Labs are reviewed. CBC is completely normal. Sodium 140, potassium 4.7, chloride 102, CO2 of 29. Anion gap is 9. BUN and creatinine were 51 and 2.17. Urine is negative. Nasal screen for Staph is currently pending. The bedside spirometry is pending. Chest x-ray looks relatively normal. Costophrenic angles are clean. The cardiac silhouette borderline enlarged. Lung horan look clear. The rest of the data is normal. MEDICATIONS: Medications are reviewed. ASSESSMENT: 1. Valvular heart disease in the form of mitral regurgitation, with anticipated mitral valve repair/replacement on October 31. 2. History of recent cardiac cath with stent placement in August of this year. 3. History of diabetes mellitus. 4. History of cataracts. 5. History of hyperlipidemia. 6. History of hypertension. 7. Pulmonary hypertension. PLAN: The patient looks pretty stable. We will go ahead and do bedside spirometry. I doubt that he has significant pulmonary disease. He did smoke a pipe for many years. Quit 11 years back. Never inhaled a pipe. Denies any other forms of tobacco. We will continue to follow. Prognosis is generally thought to be good. MMODL / IJN: [id number] /
[2018-10-29 17:18] LABS: Glucose,Whole Blood 156 mg/dL (75-99)
[2018-10-29] MEDS: FENOFIBRATE 160 MG TAB PO SCH (17:40)
[2018-10-29 20:41] LABS: Glucose,Whole Blood 171 mg/dL (75-99)
[2018-10-29] MEDS: ATORVASTATIN 80 MG TAB PO SCH (21:22)
[2018-10-30 05:50] LABS: Glucose,Whole Blood 75 mg/dL (75-99)
[2018-10-30 06:17] LABS: Glucose,Whole Blood 93 mg/dL (75-99)
[2018-10-30] MEDS: INSULIN ASPART (NovoLOG) 100 UNIT/ML VIAL SQ SCH ×4 (06:30→21:11)
[2018-10-30 06:36] LABS: HCT 42.1 % (39.0-53.0); HGB 13.7 gm/dL (13.0-17.5); MCH 30.5 pg (25.0-35.0); MCHC 32.6 g/dL (31.0-37.0); MCV 93.4 fL (80.0-100.0); Mean Platelet Volume 6.7; Platelet Count 246 k/uL (150-450); RBC 4.51 m/uL (4.30-5.90); RDW 14.6 % (11.5-15.5); WBC 6.2 k/uL (3.8-10.6)
[2018-10-30] MEDS: GLIMEPIRIDE 4 MG TAB PO SCH (06:38)
[2018-10-30] MEDS: PANTOPRAZOLE 40 MG TABLET PO SCH (06:38)
[2018-10-30 06:53] LABS: Calcium 9.6 mg/dL (8.4-10.2); Magnesium 2.2 mg/dL (1.6-2.3); Potassium 4.5 mmol/L (3.5-5.1)
--- NOTE | 2018-10-30 08:30 | P.PN ---
Subjective Progress Note Date: 10/30/18 Principal diagnosis: Severe mitral valve regurgitation. Previous medical history of coronary artery disease with recent drug-eluting stent placed to the LAD on 09/24/2018, chronic diastolic heart failure, hypertension, hyperlipidemia, type 2 diabetes mellitus with peripheral neuropathy and preoperative hemoglobin A1c 7%, chronic kidney disease with baseline creatinine around 2, moderate COPD with preoperative FEV1 54% of predicted, obstructive sleep apnea without home CPAP use, pulmonary hypertension, obesity, osteoarthritis, previous pipe tobacco use. Preoperative tooth abscess with extraction and antibiotic administration, cleared for surgery by dentist. The patient is currently sitting up in the recliner on the cardiac stepdown unit in no acute distress eating breakfast. Denies any chest pain or shortness of breath. Patient he has ambulated in the hallway. No new concerns at this time. Family meeting yesterday with patient, his , and one of his daughters to discuss the usual perioperative course of open heart surgery, risks and benefits were discussed, all questions were answered. Objective - Vital Signs Vital signs: Vital Signs Temp 98 F 10/30/18 04:00 Pulse 76 10/30/18 04:00 Resp 16 10/30/18 04:00 BP 151/77 10/30/18 04:00 Pulse Ox 96 10/30/18 04:00 Intake & Output 10/29/18 10/30/18 10/30/18 18:59 06:59 18:59 Intake Total 1440 720 Output Total 1300 1600 Balance 140 -880 Weight 97.3 kg Intake: Oral 1440 240 Other 480 Output: Urine 1300 1600 Other: Voiding Method Toilet - Constitutional General appearance: Present: cooperative, no acute distress, obese - Respiratory Details: Lungs sounds essentially clear bilaterally. Respirations even, nonlabored. Currently on room air with oxygen saturation 96%. Only able to achieve 1000 mL on his incentive spirometry. Strong cough. - Cardiovascular Details: S1, S2 present but distant. Regular rate and rhythm, sinus rhythm on telemetry. Palpable peripheral pulses bilaterally. No edema present. No calf pain or te nderness noted. - Gastrointestinal Gastrointestinal Comment(s): Abdomen soft, nontender, nondistended. Active bowel sounds present 4 quadrants. Tolerating diet. Positive bowel movement /. - Genitourinary Genitourinary Comment(s): Continues to void clear, yellow urine per urinal. - Integumentary Integumentary Comment(s): Skin is warm and dry with evidence of good perfusion. - Neurologic Neurologic: Present: CNII-XII intact - Musculoskeletal Musculoskeletal: Present: gait normal, strength equal bilaterally - Psychiatric Psychiatric: Present: A&O x's 3, appropriate affect, intact judgment & insight - Allied health notes Allied health notes reviewed: nursing - Labs CBC & Chem 7: 10/30/18 05:53 10/30/18 05:53 Labs: Abnormal Lab Results - Last 24 Hours (Table) 10/28/18 10/29/18 10/29/18 Range/Units 11:27 11:40 16:48 BUN (9-20) mg/dL Creatinine (0.66-1.25) mg/dL Glucose (74-99) mg/dL POC Glucose (mg/dL) 101 H 156 H (75-99) mg/dL Hemoglobin A1c 7.0 H (4.0-6.0) % 10/29/18 10/30/18 Range/Units 20:39 05:53 BUN 52 H (9-20) mg/dL Creatinine 2.05 H (0.66-1.25) mg/dL Glucose 72 L (74-99) mg/dL POC Glucose (mg/dL) 171 H (75-99) mg/dL Hemoglobin A1c (4.0-6.0) % Microbiology - Last 24 Hours (Table) 10/28/18 15:30 Urine Culture - Final Urine,Clean Catch 10/28/18 12:00 Nasal Screen MRSA/MSSA - Final Nasal Swab Assessment and Plan Assessment: 1. Severe nonrheumatic mitral valve regurgitation 2. Coronary artery disease with recent drug-eluting stent to the LAD on 2018 3. Chronic diastolic heart failure 4. Hypertension 5. Hyperlipidemia 6. Type 2 diabetes mellitus with peripheral neuropathy and hemoglobin A1c 7% 7. Chronic kidney disease with creatinine baseline around 2 8. Moderate COPD with preoperative FEV1 54% of predicted 9. Obstructive sleep apnea without home CPAP use 10. Pulmonary hypertension 11. Obesity 12. Osteoarthritis 13. Previous pipe tobacco dependence 14. Preoperative tooth abscess with extraction and antibiotics Plan: 1. Continue aspirin, statin, beta sun therapy. Discontinue DAYA inhibitor 4 8 hours prior to surgery to prevent postoperative hypotension. 2. Continue IV Aggrastat for antiplatelet therapy to prevent in-stent stenosis of his recently placed drug-eluting stent. Will discontinue the night before surgery to allow clearance to reduce risk of bleeding intra and postoperatively. 3. Encourage incentive spirometry use. 4. Increase activity, ambulate in hallway. 5. Will monitor daily labs. 6. STS risk score calculated and discussed with the patient. 7. Our plan is for mitral valve repair, possible replacement with ligation of the left atrial appendage and intraoperative transesophageal echocardiogram tomorrow by Dr. Lozada. 8. Appreciate consultants recommendations. 9. More recommendations to follow. Time with Patient: Greater than 30
[2018-10-30] MEDS: METOPROLOL TARTRATE 25 MG TAB PO SCH ×2 (08:33→21:13)
[2018-10-30] MEDS: ASPIRIN 81 MG PO SCH (08:33)
[2018-10-30] MEDS: MULTIVITAMINS, THERA 1 EACH TAB PO SCH (08:33)
[2018-10-30] MEDS: CHOLECALCIFEROL 1,000 UNIT TAB PO SCH (08:33)
[2018-10-30] MEDS: FERROUS SULFATE 325 MG TAB PO SCH (08:33)
[2018-10-30] MEDS: FUROSEMIDE 40 MG TAB PO SCH (08:33)
[2018-10-30] MEDS ORDERED: MD COMMUNICATION TO PHARMACY 1 EACH MISC PO ONE (08:34)
[2018-10-30] MEDS: MUPIROCIN 2% OINT 22 GM TUBE NASAL SCH ×2 (08:37→21:14)
[2018-10-30] MEDS: PENICILLIN V POTASSIUM 250 MG TAB PO SCH ×5 (08:37→23:14)
--- NOTE | 2018-10-30 10:42 | P.PN ---
Subjective Progress Note Date: 10/30/18 Principal diagnosis: Severe mitral regurgitation This is a 73-year-old gentleman with CAD and prior stenting of the LAD, severe mitral regurgitation, was admitted to the hospital to undergo mitral valve repair in the next few days. On follow-up with the patient today, 10/30/2018, he remains asymptomatic from a cardiovascular standpoint overview. The plan is to proceed with the mitral valve repair tomorrow. Objective - Vital Signs Vital signs: Vital Signs Temp 98 F 10/30/18 04:00 Pulse 65 10/30/18 08:00 Resp 16 10/30/18 08:00 BP 137/71 10/30/18 08:00 Pulse Ox 92 L 10/30/18 08:00 Intake & Output 10/29/18 10/30/18 10/30/18 18:59 06:59 18:59 Intake Total 1440 720 960 Output Total 1300 1600 Balance 140 -880 960 Weight 97.3 kg Intake: Oral 1440 240 960 Other 480 Output: Urine 1300 1600 Other: Voiding Method Toilet - Constitutional General appearance: Present: no acute distress - Respiratory Respiratory: bilateral: CTA - Cardiovascular Rhythm: regular Heart sounds: normal: S1, S2 Abnormal Heart Sounds: Present: systolic murmur - Labs CBC & Chem 7: 10/30/18 05:53 10/30/18 05:53 Labs: Abnormal Lab Results - Last 24 Hours (Table) 10/28/18 10/29/18 10/29/18 Range/Units 11:27 11:40 16:48 BUN (9-20) mg/dL Creatinine (0.66-1.25) mg/dL Glucose (74-99) mg/dL POC Glucose (mg/dL) 101 H 156 H (75-99) mg/dL Hemoglobin A1c 7.0 H (4.0-6.0) % Crossmatch 10/29/18 10/30/18 10/30/18 Range/Units 20:39 05:53 05:53 BUN 52 H (9-20) mg/dL Creatinine 2.05 H (0.66-1.25) mg/dL Glucose 72 L (74-99) mg/dL POC Glucose (mg/dL) 171 H (75-99) mg/dL Hemoglobin A1c (4.0-6.0) % Crossmatch See Detail Microbiology - Last 24 Hours (Table) 10/28/18 15:30 Urine Culture - Final Urine,Clean Catch 10/28/18 12:00 Nasal Screen MRSA/MSSA - Final Nasal Swab Assessment and Plan Assessment: Assessment #1 CAD and status post LAD stenting #2 severe mitral regurgitation #3 multiple comorbid conditions including hypertension and dyslipidemia Plan #1 continue the current medical regimen #2 the patient is going to undergo mitral valve repair in the next few days
--- NOTE | 2018-10-30 11:20 | P.PN ---
Subjective Progress Note Date: 10/30/18 Principal diagnosis: Coronary artery disease This a very pleasant 73-year-old gentleman who has a history of coronary artery disease with a recent stent placement to the LAD on 09/24/2018, chronic diastolic congestive heart failure, hypertension, hyperlipidemia, diabetes mellitus type 2 with peripheral neuropathy, chronic kidney disease, obstructive sleep apnea not utilizing CPAP in the outpatient setting, pulmonary hypertension, obesity, osteoarthritis, significant pipe smoking however denied any inhalation with the pipe. His FEV1 value is 54% of predicted. He was also found to have severe mitral valve regurgitation and has been seen by cardiothoracic surgery. The plan is for mitral valve repair/replacement to be performed on 10/31/[address] Lozada. He is seen again today in follow-up on the selective care unit. He is currently sitting up in a chair at the bedside. Awake and alert in no acute distress. No shortness of breath, cough or congestion. No chest pain or palpitations. Maintaining good O2 saturations in the 90s on room air. He's been afebrile. Hemodynamically stable. Urine culture reveals no growth. White count 6.2. Hemoglobin 13.7. Creatinine 2.05. He has been practicing with the incentive spirometer. Objective - Vital Signs Vital signs: Vital Signs Temp 98 F 10/30/18 04:00 Pulse 65 10/30/18 08:00 Resp 16 10/30/18 08:00 BP 137/71 10/30/18 08:00 Pulse Ox 92 L 10/30/18 08:00 Intake & Output 10/29/18 10/30/18 10/30/18 18:59 06:59 18:59 Intake Total 1440 720 960 Output Total 1300 1600 Balance 140 -880 960 Weight 97.3 kg Intake: Oral 1440 240 960 Other 480 Output: Urine 1300 1600 Other: Voiding Method Toilet - Exam GENERAL EXAM: Alert, active, comfortable in no apparent distress. On room air. HEAD: Normocephalic. EYES: Normal reaction of pupils, equal size. NOSE: Clear with pink turbinates. THROAT: No erythema or exudates. NECK: No masses, no JVD. CHEST: No chest wall deformity. LUNGS: Equal air entry with no crackles, wheeze, rhonchi or dullness. CVS: S1 and S2 normal with an audible murmur, regular rhythm. ABDOMEN: No hepatosplenomegaly, normal bowel sounds, no guarding or rigidity. SPINE: No scoliosis or deformity SKIN: No rashes CENTRAL NERVOUS SYSTEM: No focal deficits, tone is normal in all 4 extremities. EXTREMITIES: There is no peripheral edema. No clubbing, no cyanosis. Peripheral pulses are intact. - Labs CBC & Chem 7: 10/30/18 05:53 10/30/18 05:53 Labs: Abnormal Lab Results - Last 24 Hours (Table) 10/29/18 10/29/18 10/29/18 Range/Units 11:40 16:48 20:39 BUN (9-20) mg/dL Creatinine (0.66-1.25) mg/dL Glucose (74-99) mg/dL POC Glucose (mg/dL) 101 H 156 H 171 H (75-99) mg/dL Crossmatch 10/30/18 10/30/18 Range/Units 05:53 05:53 BUN 52 H (9-20) mg/dL Creatinine 2.05 H (0.66-1.25) mg/dL Glucose 72 L (74-99) mg/dL POC Glucose (mg/dL) (75-99) mg/dL Crossmatch See Detail Microbiology - Last 24 Hours (Table) 10/28/18 15:30 Urine Culture - Final Urine,Clean Catch 10/28/18 12:00 Nasal Screen MRSA/MSSA - Final Nasal Swab Assessment and Plan Assessment: Impression: #1 Severe mitral valve regurgitation with plan is for mitral valve repair/replacement on 10/31/2018. #2 Coronary artery disease with recent stent placement to the LAD on 09/24/2018 and placed on Plavix. His Plavix has been placed on hold and he is on IV Aggrastat. #3 Chronic diastolic congestive heart failure. #4 Diabetes mellitus, type II. #5 Diabetic peripheral neuropathy. #6 Obesity. #7 Obstructive sleep apnea not on home CPAP. #8 Pulmonary hypertension. #9 History of significant pipe smoking without inhalation. FEV1 value of 54% predicted. #10 Hypertension. #11 Hyperlipidemia. #12 Osteoarthritis. Plan: The patient was seen and evaluated by Dr. Celis. He is currently stable from the pulmonary standpoint. He is again educated regarding the importance of the use of the incentive spirometer and cough and deep breathing exercises. The plan is for mitral valve repair/replacement tomorrow. We'll follow him in the immediate postoperative setting and hope to extubate the patient within 6 hours. We'll continue to follow. I, the cosigning physician, performed a history & physical examination of the patient. Lungs sounds are clear. Maintaining good O2 saturations in the 90s on room air. I discussed the assessment and plan of care with my nurse practitioner, Valerie Kaur. I attest to the above note as dictated by her.
[2018-10-30 11:55] LABS: Glucose,Whole Blood 103 mg/dL (75-99)
--- NOTE | 2018-10-30 14:28 | P.PN ---
Subjective Progress Note Date: 10/30/18 Principal diagnosis: This is a 73-year-old male was admitted to have mitral valve replacement and is being closely monitored. Patient is sitting up in the recliner talking to family on the phone in no acute distress. Patient has been up and walking around the room with no difficulties. Cardiology is following. Patient is to undergo surgery in the morning. Patient is currently on IV Aggrastat. Patient denies any shortness of breath, chest pain, or palpitations at this time. Patient denies any nausea or vomiting. Patient is afebrile. Patient states he is just waiting for his heart surgery tomorrow. Guarded prognosis. Objective - Vital Signs Vital signs: Vital Signs Temp 98 F 10/30/18 04:00 Pulse 60 10/30/18 12:00 Resp 16 10/30/18 12:00 BP 126/57 10/30/18 12:00 Pulse Ox 94 L 10/30/18 12:00 Intake & Output 10/29/18 10/30/18 10/30/18 18:59 06:59 18:59 Intake Total 3477 381 7524 Output Total 1300 1600 800 Balance 140 -880 400 Weight 97.3 kg Intake: Oral 0590 595 0733 Other 480 Output: Urine 1300 1600 800 Other: Voiding Method Toilet - Exam Gen: This is a 73-year-old male sitting up in the chair in no acute distress talking on the phone. Vital signs are stable. Blood pressure is 137/71, pulse is 65, respirations are 16, temp is 98F, oxygen saturation is 92% on room air. HEENT: Head is atraumatic, normocephalic. Pupils equal, round. Sclerae is anicteric. NECK: Supple. No JVD. No lymphadenopathy. No thyromegaly. LUNGS: Clear to auscultation. No wheezes or rhonchi. No intercostal retractions. HEART: Regular rate and rhythm. No murmur. ABDOMEN: Soft. Bowel sounds are present. No masses. No tenderness. EXTREMITIES: No pedal edema. No calf tenderness. NEUROLOGICAL: Patient is awake, alert and oriented x3. Cranial nerves 2 through 12 are grossly intact. - Labs CBC & Chem 7: 10/30/18 05:53 10/30/18 05:53 Labs: Abnormal Lab Results - Last 24 Hours (Table) 10/29/18 10/29/18 10/30/18 Range/Units 16:48 20:39 05:53 BUN (9-20) mg/dL Creatinine (0.66-1.25) mg/dL Glucose (74-99) mg/dL POC Glucose (mg/dL) 156 H 171 H (75-99) mg/dL Crossmatch See Detail 10/30/18 10/30/18 Range/Units 05:53 11:34 BUN 52 H (9-20) mg/dL Creatinine 2.05 H (0.66-1.25) mg/dL Glucose 72 L (74-99) mg/dL POC Glucose (mg/dL) 103 H (75-99) mg/dL Crossmatch Microbiology - Last 24 Hours (Table) 10/28/18 15:30 Urine Culture - Final Urine,Clean Catch 10/28/18 12:00 Nasal Screen MRSA/MSSA - Final Nasal Swab Assessment and Plan Assessment: Severe mitral regurgitation: Patient is to undergo mitral valve replacement tomorrow morning. Patient is currently on IV Aggrastat for antiplatelet therapy due to recent stent placement in September 2018. Will be stopped this evening for surgery in the morning and resumed after surgery per cardiology recommendations. Carotid disease with recent myocardial infarction and stent placement Severe pulmonary hypertension Chronic diastolic dysfunction without any acute exacerbation. Patient is euvolemic and will continue on his oral dose of Lasix Chronic kidney disease stage III creatinine is baseline was 2.11. Current creatinine is 2.05. We'll continue to monitor closely Hyperlipidemia Gastroesophageal reflux disease Diabetes mellitus type 2 with diabetic nephropathy: Patient will be resumed on home medications. Will titrate insulin and diabetic medications depending on blood sugar readings DVT prophylaxis: As per primary service Recommendations and discussion Recommend continue current medication management and symptomatically treatment. Patient is to undergo mitral valve replacement in the morning. Cardiology is following closely. Will await report. Guarded prognosis. Further recommendations to follow.
[2018-10-30 16:58] LABS: Glucose,Whole Blood 180 mg/dL (75-99)
[2018-10-30] MEDS: FENOFIBRATE 160 MG TAB PO SCH (17:41)
[2018-10-30] MEDS ORDERED: LIDOCAINE 1% 20 ML VIAL (10MG/ML) FOR IV START INTRADERMA PRN (20:22)
[2018-10-30] MEDS ORDERED: MIDAZOLAM 2 MG/2 ML VIAL IV PRN (20:22)
[2018-10-30] MEDS ORDERED: LACTATED RINGERS 1,000 ML IV SCH (20:22)
[2018-10-30 20:53] LABS: Glucose,Whole Blood 95 mg/dL (75-99)
[2018-10-30] MEDS: ATORVASTATIN 80 MG TAB PO SCH (21:13)
[2018-10-31] MEDS ORDERED: PROPOFOL 1,000 MG in EMPTY BAG 1 BAG IV ONE (05:00)
[2018-10-31] MEDS ORDERED: TRANEXAMIC ACID 2,000 MG in SODIUM CHLORIDE 0.9% 80 ML IV ONE (05:00)
[2018-10-31] MEDS ORDERED: DEXTROSE 5% IN WATER 1,000 ML with POTASSIUM CHLORIDE 110 MEQ, MAGNESIUM SULFATE 16 MEQ... IV ONE ×5 (05:00)
[2018-10-31] MEDS ORDERED: INSULIN REGULAR 100 UNIT in SODIUM CHLORIDE 0.9% 100 ML IV ONE (05:00)
[2018-10-31] MEDS ORDERED: LACTATED RINGERS 1,000 ML IV ONE (05:00)
[2018-10-31] MEDS ORDERED: ALBUMIN HUMAN 5% 500 ML in EMPTY BAG 1 BAG IVPB ONE ×6 (05:00)
[2018-10-31] MEDS ORDERED: NITROGLYCERIN-D5W PMX 25 MG/250 ML BTL IV ONE (05:00)
[2018-10-31] MEDS ORDERED: HEPARIN SODIUM 1,000 UN/ML (10ML VL) IV ONE (05:00)
[2018-10-31] MEDS ORDERED: CALCIUM CHLORIDE 100 MG/ML 10 ML SYRINGE IVP ONE (05:00)
[2018-10-31] MEDS ORDERED: CLEVIDIPINE BUTYRATE 25 MG in EMPTY BAG 1 BAG IV ONE (05:00)
[2018-10-31] MEDS ORDERED: PHENYLEPHRINE 40 MG in SODIUM CHLORIDE 0.9% 250 ML IV ONE (05:00)
[2018-10-31] MEDS ORDERED: CHLORHEXIDINE GLUCONATE 15 ML CUP MUCOUS MEM ONE (05:00)
[2018-10-31] MEDS ORDERED: METOPROLOL TARTRATE 12.5 MG TAB PO ONE (05:00)
[2018-10-31] MEDS ORDERED: DEXTROSE 5% IN WATER 1,000 ML with POTASSIUM CHLORIDE 25 MEQ, SODIUM CHLORIDE 2.5MEQ/ML... IV ONE ×6 (05:00)
[2018-10-31] MEDS ORDERED: ceFAZolin 2 GM in SODIUM CHLORIDE 0.9% 30 ML IVPB ONE (05:00)
[2018-10-31] MEDS ORDERED: ALBUMIN HUMAN 25% 50 ML in EMPTY BAG 1 BAG IVPB ONE (05:00)
[2018-10-31] MEDS ORDERED: MAGNESIUM SULFATE SYG 4.06 MEQ/ML SYRINGE IV ONE (05:00)
[2018-10-31] MEDS ORDERED: PHENYLEPHRINE 10 MG/ML VIAL IV ONE (05:00)
[2018-10-31] MEDS ORDERED: PROTAMINE SULFATE 10 MG/ML 25 ML VIAL IV ONE ×2 (05:00→08:01)
[2018-10-31] MEDS ORDERED: MANNITOL 25% 12.5 GM/50 ML VIAL IV ONE ×2 (05:00)
[2018-10-31] MEDS ORDERED: SODIUM BICARB 8.4% 50 ML SYR (1 MEQ/ML) IV ONE (05:00)
[2018-10-31] MEDS ORDERED: NOREPINEPHRINE 4 MG in SODIUM CHLORIDE 0.9% 250 ML IV ONE (05:00)
[2018-10-31] MEDS ORDERED: ceFAZolin 2,000 MG in SODIUM CHLORIDE 0.9% 30 ML IVPB ONE (05:00)
[2018-10-31] MEDS ORDERED: HEPARIN SODIUM,PORCINE 5,000 UNIT in SODIUM CHLORIDE 0.9% 500 ML 500 ML IV ONE (05:00)
[2018-10-31] MEDS ORDERED: ASPIRIN 325 MG TAB PO ONE (05:00)
[2018-10-31] MEDS ORDERED: NITROGLYCERIN-D5W PMX 50 MG in DEXTROSE/WATER 1 250ML.BAG IV ONE (05:00)
[2018-10-31] MEDS ORDERED: PROTAMINE SULFATE 250 MG in EMPTY BAG 1 BAG IV ONE (05:00)
[2018-10-31] MEDS: ASPIRIN 81 MG PO SCH (05:41)
[2018-10-31 06:25] LABS: Glucose,Whole Blood 161 mg/dL (75-99)
[2018-10-31] MEDS ORDERED: MIDAZOLAM 2 MG/2 ML VIAL ONE (08:01)
[2018-10-31] MEDS ORDERED: SODIUM CHLORIDE 0.9% IRRIG 1,000 ML BTL IRRIGATION ONE (08:01)
[2018-10-31] MEDS ORDERED: ceFAZolin 1,000 MG VIAL ONE (08:01)
[2018-10-31] MEDS ORDERED: HEPARIN SODIUM,PORCINE 10,000 UNIT/ML 1 ML VIAL ONE (08:01)
[2018-10-31] MEDS ORDERED: ALBUMIN HUMAN 5% (25gm) 500 ML VIAL IVPB ONE (08:01)
[2018-10-31] MEDS ORDERED: MAGNESIUM SULFATE 4 MEQ/ML 10ML VIAL ONE (08:01)
[2018-10-31] MEDS ORDERED: fentaNYL (PF) 50 MCG/ML 2 ML AMP ONE (08:01)
[2018-10-31] MEDS ORDERED: VECURONIUM 10 MG VIAL IV ONE (08:01)
[2018-10-31] MEDS ORDERED: CALCIUM CHLORIDE 100 MG/ML 10 ML SYRINGE ONE (08:01)
[2018-10-31] MEDS ORDERED: MILRINONE 1 MG/ML 20 ML VIAL IV ONE (08:01)
[2018-10-31] MEDS ORDERED: fentaNYL (PF) 50 MCG/ML 50 ML VIAL ONE (08:01)
[2018-10-31] MEDS ORDERED: SODIUM CHLORIDE 0.9% 250 ML BAG ONE (08:01)
[2018-10-31] MEDS ORDERED: TRANEXAMIC ACID 1,000 MG/10 ML VIAL ONE (08:01)
[2018-10-31] MEDS ORDERED: LIDOCAINE 2% SYG (PF) 100 MG/5 ML ONE (08:01)
[2018-10-31] MEDS ORDERED: ePHEDrine SULFATE/0.9% NACL/PF 50 MG/5 ML SYRINGE IV ONE (08:01)
[2018-10-31] MEDS ORDERED: ELECTROLYTE-R (PH 7.4) 1,000 ML IV.SOLN IV ONE (08:01)
[2018-10-31] MEDS ORDERED: PROPOFOL 10 MG/ML 20 ML VIAL IV ONE (08:01)
[2018-10-31] MEDS ORDERED: SODIUM CHLORIDE 0.9% 500 ML 500 ML with HEPARIN SODIUM,PORCINE 5,000 UNIT IV ONE ×2 (09:40)
[2018-10-31 09:50] LABS: ABG Base Excess 0.9 mmol/L; ABG Glucose Whole Blood 99 mg/dL (75-99); ABG HCO3 25 mmol/L (21-25); ABG Hematocrit 34 % (34.0-46.0); ABG Ionized Calcium 4.4 mg/dL (4.5-5.3); ABG Lactic Acid Whole Blood 1.6 mmol/L (0.5-1.6); ABG PCO2 38 mmHg (35-45); ABG PH 7.43 (7.35-7.45); ABG PO2 196 mmHg (83-108); ABG Potassium Whole Blood 3.8 mmol/L (3.4-4.5); ABG Sodium Whole Blood 140 mmol/L (135-146); ABG TCO2 26 mmol/L (19-24)
[2018-10-31 10:18] LABS: ABG Base Excess -1.1 mmol/L; ABG Glucose Whole Blood 196 mg/dL (75-99); ABG HCO3 25 mmol/L (21-25); ABG Ionized Calcium 3.9 mg/dL (4.5-5.3); ABG Lactic Acid Whole Blood 1.4 mmol/L (0.5-1.6); ABG PCO2 44 mmHg (35-45); ABG PH 7.35 (7.35-7.45); ABG Potassium Whole Blood 4.7 mmol/L (3.4-4.5); ABG Sodium Whole Blood 135 mmol/L (135-146); ABG TCO2 26 mmol/L (19-24)
[2018-10-31 10:52] LABS: ABG Base Excess -0.4 mmol/L; ABG Glucose Whole Blood 196 mg/dL (75-99); ABG HCO3 26 mmol/L (21-25); ABG Hematocrit 25 % (34.0-46.0); ABG Lactic Acid Whole Blood 1.1 mmol/L (0.5-1.6); ABG PCO2 49 mmHg (35-45); ABG PH 7.33 (7.35-7.45); ABG PO2 260 mmHg (83-108); ABG Potassium Whole Blood 4.2 mmol/L (3.4-4.5); ABG Sodium Whole Blood 136 mmol/L (135-146); ABG TCO2 27 mmol/L (19-24)
[2018-10-31 11:28] LABS: ABG Base Excess -0.5 mmol/L; ABG Glucose Whole Blood 177 mg/dL (75-99); ABG HCO3 25 mmol/L (21-25); ABG Hematocrit 26 % (34.0-46.0); ABG Ionized Calcium 4.1 mg/dL (4.5-5.3); ABG Lactic Acid Whole Blood 1.4 mmol/L (0.5-1.6); ABG PCO2 46 mmHg (35-45); ABG PH 7.35 (7.35-7.45); ABG PO2 329 mmHg (83-108); ABG Sodium Whole Blood 138 mmol/L (135-146); ABG TCO2 27 mmol/L (19-24)
--- NOTE | 2018-10-31 11:58 | P.VSCSTY ---
Greater Saphenous Vein Mapping This is bilateral lower extremity greater saphenous vein mapping. 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 Vein size groin right : 8.7 x 7.5 groin left: 8.0 x 6.4 High thigh right: 3.9 x 3.6 high thigh left: 5.5 x 3.6 Mid thigh right: 3.4 x 3.1 mid thigh left: 3.8 x 2.8 Above-knee right: 3.4 x 3.1 above- knee left: 4.1 x 3.8 Below knee right: 2.5 x 2.3 below-knee left: 3.1 x 3.3 Mid calf right: 2.6 x 2.1 mid calf left: 2.5 x 1.6 Ankle right: 3.1 x 2.8 ankle left: 3.1 x 2.7 Impression: Usable bilateral greater saphenous vein. Caution: Watch for duplicate system mid calf and below on the right and high and mid thigh on the right.
[2018-10-31 13:28] LABS: ABG Hematocrit 24 % (34.0-46.0); ABG PO2 >420 mmHg (83-108)
[2018-10-31 13:34] LABS: ABG Base Excess 0.8 mmol/L; ABG Glucose Whole Blood 93 mg/dL (75-99); ABG HCO3 26 mmol/L (21-25); ABG Hematocrit 36 % (34.0-46.0); ABG Ionized Calcium 4.5 mg/dL (4.5-5.3); ABG Lactic Acid Whole Blood 1.4 mmol/L (0.5-1.6); ABG Oxygen Saturation 99.1 % (94-97); ABG PCO2 42 mmHg (35-45); ABG PO2 120 mmHg (83-108); ABG Sodium Whole Blood 141 mmol/L (135-146); ABG TCO2 27 mmol/L (19-24)
[2018-10-31 13:35] LABS: ABG Base Excess -0.7 mmol/L; ABG Glucose Whole Blood 154 mg/dL (75-99); ABG HCO3 24 mmol/L (21-25); ABG Hematocrit 30 % (34.0-46.0); ABG Ionized Calcium 4.1 mg/dL (4.5-5.3); ABG Lactic Acid Whole Blood 1.8 mmol/L (0.5-1.6); ABG Oxygen Saturation 99.8 % (94-97); ABG PCO2 41 mmHg (35-45); ABG PH 7.38 (7.35-7.45); ABG PO2 214 mmHg (83-108); ABG Potassium Whole Blood 3.8 mmol/L (3.4-4.5); ABG Sodium Whole Blood 139 mmol/L (135-146); ABG TCO2 26 mmol/L (19-24)
[2018-10-31 13:44] LABS: Glucose,Whole Blood 129 mg/dL (75-99)
[2018-10-31] MEDS ORDERED: Potassium Replacement Protocol 1 EACH MISC MISCELLANE PRN (13:49)
[2018-10-31] MEDS ORDERED: METOCLOPRAMIDE 5 MG/ML 2 ML VIAL IVP PRN (13:49)
[2018-10-31] MEDS ORDERED: DEXTROSE 5% IN WATER 100 ML with AMIODARONE 150 MG IV PRN (13:49)
[2018-10-31] MEDS ORDERED: CALCIUM GLUCONATE 2 GM in SODIUM CHLORIDE 0.9% 100 ML IVPB PRN (13:49)
[2018-10-31] MEDS ORDERED: AMIODARONE 300 MG in DEXTROSE 5% IN WATER 250 ML IV PRN ×2 (13:49)
[2018-10-31] MEDS ORDERED: PROPOFOL 1,000 MG in EMPTY BAG 1 BAG IV SCH (13:49)
[2018-10-31] MEDS ORDERED: CLEVIDIPINE BUTYRATE 25 MG in EMPTY BAG 1 BAG IV SCH (13:49)
[2018-10-31] MEDS ORDERED: ONDANSETRON 4 MG/2 ML VIAL IVP PRN (13:49)
[2018-10-31] MEDS ORDERED: Magnesium Replacement Protocol 1 EACH MISC MISCELLANE PRN (13:49)
[2018-10-31] MEDS ORDERED: BENZOCAINE/MENTHOL LOZENG 1 EACH LOZENGE MUCOUS MEM PRN (13:49)
[2018-10-31] MEDS ORDERED: Phosphorus Replacement Protoco 1 EACH MISC MISCELLANE PRN (13:49)
[2018-10-31] MEDS ORDERED: AMIODARONE 360 MG in DEXTROSE 5% IN WATER 200 ML IV PRN ×2 (13:49)
[2018-10-31] MEDS: MILRINONE-D5W PMX 20 MG in DEXTROSE/WATER 1 100ML.BAG IV SCH (14:00)
[2018-10-31] MEDS: ALBUMIN HUMAN 5% 250 ML in EMPTY BAG 1 BAG IVPB PRN ×2 (14:00→19:33)
--- NOTE | 2018-10-31 14:13 | XR ---
EXAMINATION TYPE: XR chest 1V portable DATE OF EXAM: 10/31/2018 COMPARISON: 10/28/2018 HISTORY: Status post cardiac surgery TECHNIQUE: Single frontal view of the chest is obtained. FINDINGS: Right internal jugular [place] catheter, mediastinal drain, left thoracostomy tube, ente richard tube, endotracheal tube and then inserted in the interim. Epicardial pacing leads are also seen. The fenestrated portion of the enteric tube is poorly visualized although the enteric tube appears in optimal position. Attention on follow-up exams. Left thoracostomy tube is stable in position with pleural reaction seen at the right lung apex but no sizable pneumothorax. Scattered bilateral subsegmental linear atelectasis. [place] catheter has it s distal tip in the right main pulmonary artery. Enteric tube terminates approximately 2.7 cm from th e tommy, appropriately placed. Median sternotomy wires are seen. IMPRESSION: Postsurgical changes with lines and tubes as detailed above.
[2018-10-31] MEDS ORDERED: NOREPINEPHRINE 4 MG in SODIUM CHLORIDE 0.9% 250 ML IV SCH (14:15)
[2018-10-31 14:16] LABS: Basophils % (A) 1 %; Eosinophils # (A) 0.1 k/uL (0-0.7); Eosinophils % (A) 1 %; HCT 27.8 % (39.0-53.0); Lymphocytes # (A) 0.9 k/uL (1.0-4.8); Lymphocytes % (A) 10 %; MCH 31.7 pg (25.0-35.0); MCHC 33.6 g/dL (31.0-37.0); MCV 94.4 fL (80.0-100.0); Mean Platelet Volume 7.8; Monocytes # (A) 0.6 k/uL (0-1.0); Monocytes % (A) 7 %; Neutrophils # (A) 7.3 k/uL (1.3-7.7); Neutrophils % (A) 81 %; Platelet Count 151 k/uL (150-450); RBC 2.94 m/uL (4.30-5.90); RDW 15.2 % (11.5-15.5); WBC 8.9 k/uL (3.8-10.6)
[2018-10-31 14:18] LABS: ABG Base Excess -0.6 mmol/L; ABG HCO3 26 mmol/L (21-25); ABG Oxygen Saturation 99.2 % (94-97); ABG PCO2 54 mmHg (35-45); ABG PH 7.29 (7.35-7.45); ABG PO2 163 mmHg (83-108); ABG TCO2 28 mmol/L (19-24)
[2018-10-31 14:19] LABS: Allen Test Performed? no
[2018-10-31 14:21] LABS: Ionized Calcium 4.5 mg/dL (4.5-5.3)
[2018-10-31 14:24] LABS: HGB 9.3 gm/dL (13.0-17.5)
[2018-10-31 14:28] LABS: INR 1.2 (<1.2); Partial Thromboplastin Time 26.2 sec (22.0-30.0); Prothrombin Time 12.2 sec (9.0-12.0)
[2018-10-31 14:29] LABS: ALT 27 U/L (21-72); AST 58 U/L (17-59); African American GFR (CKD) 43 (>60 ml/min/1.73 sqM); Albumin 3.4 g/dL (3.5-5.0); Alkaline Phosphatase <20 U/L (38-126); Anion Gap 10 mmol/L; Blood Urea Nitrogen 43 mg/dL (9-20); Calcium 7.7 mg/dL (8.4-10.2); Carbon Dioxide 25 mmol/L (22-30); Chloride 106 mmol/L (98-107); Glucose 122 mg/dL (74-99); Magnesium 2.8 mg/dL (1.6-2.3); Non-African American GFR(CKD) 37 (>60 ml/min/1.73 sqM); Sodium 141 mmol/L (137-145); Total Bilirubin 0.7 mg/dL (0.2-1.3); Total Protein 5.3 g/dL (6.3-8.2)
[2018-10-31 14:44] LABS: Potassium 3.9 mmol/L (3.5-5.1)
--- NOTE | 2018-10-31 14:50 | OP ---
OPERATIVE REPORT DATE OF THE OPERATION: 10/31/2018 ATTENDING SURGEON: Dr. Elgin Lozada. PHONE ENGINEER: Dr. Derek Darby PREOPERATIVE DIAGNOSIS: Severe eccentric mitral regurgitation, severely calcified mitral anulus. POSTOPERATIVE DIAGNOSIS: Torn chordae to P1 posterior leaflet. PROCEDURE: Complex mitral valve repair with resection of torn chordae to P1, posterior leaflet plication of P1 and P2, small resection P1-P2 leaflet, plication of both anterior mitral trigones, clip ligation of the left atrial appendage with a 35 mm AtriClip and intraoperative FAUSTINO. ANESTHESIA: General. BLOOD LOSS: 500 mL. SUMMARY: The patient brought to the operating room, placed in supine position. Following of a general endotracheal anesthetic placement via [place] catheter, arterial line, adequate IV access and a [place] catheter, patient carefully prepped and draped in normal sterile fashion using chlorhexidine paint and sterile towels. A midline incision in the chest made, sternum divided, pericardium was opened. Heart size was mildly enlarged. The aorta was soft. The patient was heparinized with an AST of greater than 40. The aorta and 2 single stage venous cannulas were placed, antegrade and retrograde cardioplegic catheters positioned in the ascending aorta and the coronary sinus. Patient was placed on bypass, cross-clamp, heart arrested with 1 L of antegrade followed by 500 mL of retrograde cardioplegia. Retrograde cardioplegia was delivered 3 to 500 mL at end of each 20 minute interval. Base of the left atrial appendage was measured. A #35 mm AtriClip was opened, secured at the base, officially obliterating the left atrial appendage. At this point, the left atrium was entered at the junction of the right superior pulmonary vein and once into the left atrium. A handheld retractor was placed. The mitral valve was identified. There was noted to be a small calcific mass on A3 of the anterior leaflet. This was carefully excised. Next, there was noted to be a torn chordae at the junction of P1 and P2 of the posterior leaflet. This torn chordae was excised and at this point, the plication was performed between P1 and P2 using 5-0 Prolene horizontal mattress sutures followed by a 5-0 Prolene running suture. At this point, due to the severe amount of mitral annular calcification, we were not able to do any type of a ring annuloplasty and therefore at this point, it was important to at least plicate the trigones using 4-0 Prolene pledgetted sutures. Both trigones were plicated. At this point, it was tested with a handle selene and tested reasonably well. Next, the atrium was closed in a double layered closure of 4 Prolene vertical mattress followed by an [id number] stitch on both sides. The patient was placed head down, complete de-airing maneuver was performed 3 times. One liter of warm blood retrograde cardioplegia was run. Cross-clamp was removed. Once beating out of sinus rhythm, patient was given a load of Primacor, Levophed and brought off bypass, came off bypass uneventfully with good hemodynamics, protamine delivered, patient decannulated, ventricular pacing wires were placed. Mediastinal left pleural chest tubes were placed. At this point, the sternum was closed with a combination of sternal wires and [place] cable closure devices as a [id number]. Skin and subcutaneous tissue fascia closed in 3 layers. No complications. Patient tolerated the procedure well. Postoperative FAUSTINO showed postoperative PA pressures were normal at 38/16 and they were approximately 70 systolic preoperatively. The CVP was 5 and the PE showed only mild trace to mild central MR, which was to be expected due to the inability to place a ring. The skin and subcutaneous tissue fascia closed in 3 layers. No complications. The patient tolerated the procedure well. Patient was taken to the cardiovascular intensive care unit in stable condition. LAWRENCE / AMARA: [id number] /
--- NOTE | 2018-10-31 15:16 | P.PN ---
Subjective Progress Note Date: 10/31/18 Principal diagnosis: Coronary artery disease This a very pleasant 73-year-old gentleman who has a history of coronary artery disease with a recent stent placement to the LAD on 09/24/2018, chronic diastolic congestive heart failure, hypertension, hyperlipidemia, diabetes mellitus type 2 with peripheral neuropathy, chronic kidney disease, obstructive sleep apnea not utilizing CPAP in the outpatient setting, pulmonary hypertension, obesity, osteoarthritis, significant pipe smoking however denied any inhalation with the pipe. His FEV1 value is 54% of predicted. He was also found to have severe mitral valve regurgitation and has been seen by cardiothoracic surgery. The plan is for mitral valve repair/replacement to be performed on 10/31/[address] Lozada. He is seen again today in follow-up on the selective care unit. He is currently sitting up in a chair at the bedside. Awake and alert in no acute distress. No shortness of breath, cough or congestion. No chest pain or palpitations. Maintaining good O2 saturations in the 90s on room air. He's been afebrile. Hemodynamically stable. Urine culture reveals no growth. White count 6.2. Hemoglobin 13.7. Creatinine 2.05. He has been practicing with the incentive spirometer. The patient is seen today 10/31/2018 in the intensive care unit. He has just returned from a complex mitral valve repair for severe eccentric mitral regurgitation and severely calcified mitral annulus. He is intubated on the m [place] ventilator. Currently on SIMV mode at a rate of 12, tidal volume 450, FiO2 100% pressure support of 5 and a PEEP of 5. Initial arterial blood gases revealed a PaO2 of 163, pCO2 of 54 and a pH of 7.29. White count 8.9. Hemoglobin 9.3. INR 1.2. Sodium 141. Potassium 3.9. BUN 43. Creatinine 1.78. Cardiac output 5.9. Cardiac index 2.9. He is on milrinone at 0.3, insulin at 2.5 units per hour, lactated Ringer's at 50 MLS per hour. Clevidipine 1 mg per hour. Current blood pressure 120/48, pulmonary artery pressures 46/24. Chest x-ray reveals scattered bilateral subsegmental linear atelectasis. Mediastinal and left chest tubes are in place. Endotracheal and gastric tubes in place. Epicardial pacing leads in place. Objective - Vital Signs Vital signs: Vital Signs Temp 97.1 F L 10/31/18 06:51 Pulse 66 10/31/18 06:51 Resp 18 10/31/18 06:51 BP 169/73 10/31/18 06:51 Pulse Ox 97 10/31/18 06:51 Intake & Output 10/30/18 10/31/18 10/31/18 18:59 06:59 18:59 Intake Total 1560 504 2 Output Total 1300 1400 900 Balance 260 -896 -898 Weight 97 kg Intake: IV 2 Intake, IV Titration 300 Amount Lactated Ringers 1,000 ml 300 @ 20 mls/hr IV .Q24H JAIME Rx#:[id number] Oral 1560 204 Output: Urine 1300 1400 400 Estimated Blood Loss 500 Other: Voiding Method Toilet # Voids 4 - Exam GENERAL EXAM: Intubated, on the mechanical ventilator appears comfortable in no apparent distress. HEAD: Normocephalic. EYES: Sluggish reaction of pupils, equal size. NOSE: Clear with pink turbinates. THROAT: Oral endotracheal and gastric tube secured in place. No erythema or exudates. NECK: No masses, no JVD. CHEST: Sternal dressing dry and intact. Mediastinal and left chest tubes in place. LUNGS: Equal air entry with no crackles, wheeze, rhonchi or dullness. CVS: S1 and S2 normal with no audible murmur, regular rhythm. ABDOMEN: No hepatosplenomegaly, normal bowel sounds, no guarding or rigidity. SPINE: No scoliosis or deformity SKIN: No rashes CENTRAL NERVOUS SYSTEM: No focal deficits, tone is normal in all 4 extremities. EXTREMITIES: Bilateral Zi wraps to the lower extremities. There is no peripheral edema. No clubbing, no cyanosis. Peripheral pulses are intact. - Labs CBC & Chem 7: 10/31/18 13:40 10/31/18 13:40 Labs: Abnormal Lab Results - Last 24 Hours (Table) 10/30/18 10/30/18 10/31/18 Range/Units 05:53 16:35 06:09 RBC (4.30-5.90) m/uL Hgb (13.0-17.5) gm/dL Hct (39.0-53.0) % Lymphocytes # (1.0-4.8) k/uL PT (9.0-12.0) sec INR (<1.2) ABG pH (7.35-7.45) ABG pCO2 (35-45) mmHg ABG pO2 (83-108) mmHg ABG HCO3 (21-25) mmol/L ABG Total CO2 (19-24) mmol/L ABG O2 Saturation (94-97) % ABG Hematocrit (34.0-46.0) % ABG Potassium (3.4-4.5) mmol/L ABG Ionized Calcium (4.5-5.3) mg/dL ABG Glucose (75-99) mg/dL ABG Lactic Acid (0.5-1.6) mmol/L Hemoglobin (13.0-17.5) gm/dL BUN (9-20) mg/dL Creatinine (0.66-1.25) mg/dL Glucose (74-99) mg/dL POC Glucose (mg/dL) 180 H 161 H (75-99) mg/dL Calcium (8.4-10.2) mg/dL Magnesium (1.6-2.3) mg/dL Alkaline Phosphatase (38-126) U/L Total Protein (6.3-8.2) g/dL Albumin (3.5-5.0) g/dL Arterial Blood Potassium (3.4-4.5) mmol/L Arterial Blood Glucose (75-99) mg/dL Crossmatch See Detail 10/31/18 10/31/18 10/31/18 Range/Units 09:15 09:52 10:20 RBC (4.30-5.90) m/uL Hgb (13.0-17.5) gm/dL Hct (39.0-53.0) % Lymphocytes # (1.0-4.8) k/uL PT (9.0-12.0) sec INR (<1.2) ABG pH (7.35-7.45) ABG pCO2 (35-45) mmHg ABG pO2 214 H 196 H >420 H (83-108) mmHg ABG HCO3 (21-25) mmol/L ABG Total CO2 26 H 26 H 26 H (19-24) mmol/L ABG O2 Saturation 99.8 H 100.0 H 100.0 H (94-97) % ABG Hematocrit 30 L 24 L (34.0-46.0) % ABG Potassium 4.7 H (3.4-4.5) mmol/L ABG Ionized Calcium 4.1 L 4.4 L 3.9 L (4.5-5.3) mg/dL ABG Glucose 154 H 196 H (75-99) mg/dL ABG Lactic Acid 1.8 H (0.5-1.6) mmol/L Hemoglobin 9.8 L 11.0 L 7.9 L (13.0-17.5) gm/dL BUN (9-20) mg/dL Creatinine (0.66-1.25) mg/dL Glucose (74-99) mg/dL POC Glucose (mg/dL) (75-99) mg/dL Calcium (8.4-10.2) mg/dL Magnesium (1.6-2.3) mg/dL Alkaline Phosphatase (38-126) U/L Total Protein (6.3-8.2) g/dL Albumin (3.5-5.0) g/dL Arterial Blood Potassium 4.7 H (3.4-4.5) mmol/L Arterial Blood Glucose 154 H 196 H (75-99) mg/dL Crossmatch 10/31/18 10/31/18 10/31/18 Range/Units 10:54 11:30 12:54 RBC (4.30-5.90) m/uL Hgb (13.0-17.5) gm/dL Hct (39.0-53.0) % Lymphocytes # (1.0-4.8) k/uL PT (9.0-12.0) sec INR (<1.2) ABG pH 7.33 L (7.35-7.45) ABG pCO2 49 H 46 H (35-45) mmHg ABG pO2 260 H 329 H 120 H (83-108) mmHg ABG HCO3 26 H 26 H (21-25) mmol/L ABG Total CO2 27 H 27 H 27 H (19-24) mmol/L ABG O2 Saturation 100.0 H 100.0 H 99.1 H (94-97) % ABG Hematocrit 25 L 26 L (34.0-46.0) % ABG Potassium (3.4-4.5) mmol/L ABG Ionized Calcium 4.0 L 4.1 L (4.5-5.3) mg/dL ABG Glucose 196 H 177 H (75-99) mg/dL ABG Lactic Acid (0.5-1.6) mmol/L Hemoglobin 8.3 L 8.5 L 11.7 L (13.0-17.5) gm/dL BUN (9-20) mg/dL Creatinine (0.66-1.25) mg/dL Glucose (74-99) mg/dL POC Glucose (mg/dL) (75-99) mg/dL Calcium (8.4-10.2) mg/dL Magnesium (1.6-2.3) mg/dL Alkaline Phosphatase (38-126) U/L Total Protein (6.3-8.2) g/dL Albumin (3.5-5.0) g/dL Arterial Blood Potassium (3.4-4.5) mmol/L Arterial Blood Glucose 196 H 177 H (75-99) mg/dL Crossmatch 10/31/18 10/31/18 10/31/18 Range/Units 13:40 13:40 13:40 RBC 2.94 L (4.30-5.90) m/uL Hgb 9.3 L D (13.0-17.5) gm/dL Hct 27.8 L (39.0-53.0) % Lymphocytes # 0.9 L (1.0-4.8) k/uL PT 12.2 H (9.0-12.0) sec INR 1.2 H (<1.2) ABG pH (7.35-7.45) ABG pCO2 (35-45) mmHg ABG pO2 (83-108) mmHg ABG HCO3 (21-25) mmol/L ABG Total CO2 (19-24) mmol/L ABG O2 Saturation (94-97) % ABG Hematocrit (34.0-46.0) % ABG Potassium (3.4-4.5) mmol/L ABG Ionized Calcium (4.5-5.3) mg/dL ABG Glucose (75-99) mg/dL ABG Lactic Acid (0.5-1.6) mmol/L Hemoglobin (13.0-17.5) gm/dL BUN 43 H (9-20) mg/dL Creatinine 1.78 H (0.66-1.25) mg/dL Glucose 122 H (74-99) mg/dL POC Glucose (mg/dL) (75-99) mg/dL Calcium 7.7 L (8.4-10.2) mg/dL Magnesium 2.8 H (1.6-2.3) mg/dL Alkaline Phosphatase <20 L (38-126) U/L Total Protein 5.3 L (6.3-8.2) g/dL Albumin 3.4 L (3.5-5.0) g/dL Arterial Blood Potassium (3.4-4.5) mmol/L Arterial Blood Glucose (75-99) mg/dL Crossmatch 10/31/18 10/31/18 Range/Units 13:43 14:16 RBC (4.30-5.90) m/uL Hgb (13.0-17.5) gm/dL Hct (39.0-53.0) % Lymphocytes # (1.0-4.8) k/uL PT (9.0-12.0) sec INR (<1.2) ABG pH 7.29 L (7.35-7.45) ABG pCO2 54 H (35-45) mmHg ABG pO2 163 H (83-108) mmHg ABG HCO3 26 H (21-25) mmol/L ABG Total CO2 28 H (19-24) mmol/L ABG O2 Saturation 99.2 H (94-97) % ABG Hematocrit (34.0-46.0) % ABG Potassium (3.4-4.5) mmol/L ABG Ionized Calcium (4.5-5.3) mg/dL ABG Glucose (75-99) mg/dL ABG Lactic Acid (0.5-1.6) mmol/L Hemoglobin (13.0-17.5) gm/dL BUN (9-20) mg/dL Creatinine (0.66-1.25) mg/dL Glucose (74-99) mg/dL POC Glucose (mg/dL) 129 H (75-99) mg/dL Calcium (8.4-10.2) mg/dL Magnesium (1.6-2.3) mg/dL Alkaline Phosphatase (38-126) U/L Total Protein (6.3-8.2) g/dL Albumin (3.5-5.0) g/dL Arterial Blood Potassium (3.4-4.5) mmol/L Arterial Blood Glucose (75-99) mg/dL Crossmatch Assessment and Plan Assessment: Impression: #1 Severe mitral valve regurgitation with severely calcified mitral annulus, torn chordae to P1 posterior leaflet. He is status post complex mitral valve repair with resection of torn chordae to P1, posterior leaflet plication of P1 and P2, small resection P1-P2 leaflet, plication of both anterior mitral trigones, clip ligation of left atrial appendage. Post operative day #0. #2 Coronary artery disease with recent stent placement to the LAD on 09/24/2018. His Plavix has been placed on hold, to be resumed tonight. #3 Chronic diastolic congestive heart failure. #4 Diabetes mellitus, type II. #5 Diabetic peripheral neuropathy. #6 Obesity. #7 Obstructive sleep apnea not on home CPAP. #8 Pulmonary hypertension. #9 History of significant pipe smoking without inhalation. FEV1 value of 54% predicted. #10 Hypertension. #11 Hyperlipidemia. #12 Osteoarthritis. Plan: The patient was seen and evaluated by Dr. Celis. Chest x-ray, ABGs and labs all reviewed. We'll change the vent to assist control mode and increase the rate to 16, decrease FiO2 to 60%. Plan to extubate the patient within 6 hours if doing well. We'll continue to follow and make further recommendations based on his clinical status. Critical care time 38 minutes. I, the cosigning physician, performed a history & physical examination of the patient. Lungs sounds are clear. Maintaining good O2 saturations in the 90s on 60% FiO2. I discussed the assessment and plan of care with my nurse practitioner, Valerie Kaur. I attest to the above note as dictated by her. Time with Patient: Greater than 30
[2018-10-31 15:26] LABS: Glucose,Whole Blood 129 mg/dL (75-99)
[2018-10-31] MEDS ORDERED: IPRATROPIUM-ALBUTEROL 3 ML NEB INHALATION SCH (16:00)
[2018-10-31 16:07] LABS: Glucose,Whole Blood 137 mg/dL (75-99)
[2018-10-31 16:53] LABS: Glucose,Whole Blood 156 mg/dL (75-99)
[2018-10-31 16:56] LABS: Basophils % (A) 0 %; Eosinophils % (A) 1 %; HCT 24.2 % (39.0-53.0); Lymphocytes # (A) 0.3 k/uL (1.0-4.8); Lymphocytes % (A) 5 %; MCH 28.9 pg (25.0-35.0); MCV 93.2 fL (80.0-100.0); Mean Platelet Volume 9.1; Monocytes # (A) 0.5 k/uL (0-1.0); Monocytes % (A) 8 %; Neutrophils # (A) 5.3 k/uL (1.3-7.7); Neutrophils % (A) 85 %; Platelet Count 124 k/uL (150-450); RDW 14.5 % (11.5-15.5); WBC 6.2 k/uL (3.8-10.6)
[2018-10-31 17:08] LABS: HGB 7.5 gm/dL (13.0-17.5)
[2018-10-31] MEDS: CHOLECALCIFEROL 1,000 UNIT TAB PO SCH (17:15)
[2018-10-31] MEDS: FERROUS SULFATE 325 MG TAB PO SCH (17:15)
[2018-10-31] MEDS: TIROFIBAN 12.5MG-250ML NS 250 ML IV SCH (17:15)
[2018-10-31] MEDS: MULTIVITAMINS, THERA 1 EACH TAB PO SCH (17:15)
[2018-10-31] MEDS: LACTATED RINGERS 1,000 ML IV SCH (17:16)
[2018-10-31] MEDS: NITROGLYCERIN-D5W PMX 50 MG in DEXTROSE/WATER 1 250ML.BAG IV SCH (17:17)
[2018-10-31] MEDS: ACETAMINOPHEN IV (For NPO) 1,000 MG in EMPTY BAG 1 BAG IVPB SCH ×2 (17:18→23:08)
[2018-10-31] MEDS: POTASSIUM CHLORIDE 10 MEQ in WATER FOR INJECTION 1 100ML.BAG IVPB SCH ×2 (17:34→19:29)
[2018-10-31] MEDS ORDERED: DEXMEDETOMIDINE/0.9% NACL(PMX) 400 MCG in EMPTY BAG 1 BAG IV SCH (18:00)
[2018-10-31 18:10] LABS: Glucose,Whole Blood 168 mg/dL (75-99)
[2018-10-31 18:57] LABS: Glucose,Whole Blood 153 mg/dL (75-99)
[2018-10-31] MEDS: IPRATROPIUM-ALBUTEROL 3 ML NEB INHALATION SCH ×2 (19:11→19:32)
[2018-10-31 19:41] LABS: Glucose,Whole Blood 159 mg/dL (75-99)
[2018-10-31 19:59] LABS: Basophils % (A) 0 %; Eosinophils # (A) 0.1 k/uL (0-0.7); Eosinophils % (A) 1 %; HCT 22.4 % (39.0-53.0); HGB 7.7 gm/dL (13.0-17.5); Lymphocytes # (A) 0.4 k/uL (1.0-4.8); Lymphocytes % (A) 5 %; MCHC 34.3 g/dL (31.0-37.0); MCV 93.4 fL (80.0-100.0); Mean Platelet Volume 7.9; Monocytes # (A) 0.6 k/uL (0-1.0); Monocytes % (A) 7 %; Neutrophils # (A) 7.1 k/uL (1.3-7.7); Neutrophils % (A) 87 %; Platelet Count 210 k/uL (150-450); RDW 14.7 % (11.5-15.5); WBC 8.2 k/uL (3.8-10.6)
[2018-10-31 20:33] LABS: ABG Base Excess -0.9 mmol/L; ABG HCO3 24 mmol/L (21-25); ABG Oxygen Saturation 97.6 % (94-97); ABG PCO2 41 mmHg (35-45); ABG PH 7.38 (7.35-7.45); ABG PO2 92 mmHg (83-108); ABG TCO2 25 mmol/L (19-24)
[2018-10-31 20:43] LABS: Allen Test Performed? no
[2018-10-31 21:24] LABS: Glucose,Whole Blood 175 mg/dL (75-99)
[2018-10-31] MEDS: INSULIN REGULAR 100 UNIT in SODIUM CHLORIDE 0.9% 100 ML IV SCH (21:25)
[2018-10-31] MEDS: CLOPIDOGREL 75 MG TAB PO SCH (21:35)
[2018-10-31] MEDS: HEPARIN SODIUM,PORCINE 5,000 UNIT/ML 1 ML VIAL SQ SCH (21:58)
[2018-10-31 22:43] LABS: Glucose,Whole Blood 199 mg/dL (75-99)
[2018-10-31 23:23] LABS: Glucose,Whole Blood 198 mg/dL (75-99)
--- NOTE | 2018-10-31 23:58 | PN ---
PROGRESS NOTE DATE OF SERVICE: 10/31/2018 This 73-year-old gentleman who was admitted with significant mitral regurgitation, underwent mitral valve repair with resection by Dr. Lozada. The patient is postop the patient mechanically ventilated as expected and the patient is also on insulin 6.5, with sugars in the 120s. Patient being closely monitored in ICU. EXAM: The patient is sedated. Pulse 85, blood pressure 130/50, respirations 20, temperature 97.5, pulse ox 94% on mechanical vent settings are noted. HEENT: Conjunctivae normal. NECK: No JVD. RESPIRATORY: Breath sounds diminished in the bases. A few rhonchi. Abdomen soft. Nervous system: The patient mechanically sedated. LABS: WBC 8.2, hemoglobin 7.7, ABGs noted. Accu-Cheks noted. ASSESSMENT: 1. Severe mitral regurgitation, status post mitral valve repair. 2. History of recent coronary artery disease/stent. 3. Severe pulmonary hypertension. 4. History of chronic diastolic dysfunction with congestive heart failure. 5. Chronic kidney disease stage 3. 6. Hyperlipidemia. 7. History of gastroesophageal reflux disease. 8. Diabetes mellitus type 2. RECOMMENDATIONS AND DISCUSSION: In this 73 -year-old gentleman who presented with multiple medical problems. At this time, I recommend to continue current management and continue mechanical ventilation. Otherwise continue with insulin drip. Monitor blood sugars closely. Rest of the recommendations per cardiothoracic surgery. Further recommendations to follow. MMKARLAL / AMARA: [id number] /
[2018-11-01 00:18] LABS: Glucose,Whole Blood 197 mg/dL (75-99)
[2018-11-01] MEDS ORDERED: HYDROcodone/APAP 5-325MG 1 EACH TAB PO PRN (01:00)
[2018-11-01] MEDS: MILRINONE-D5W PMX 20 MG in DEXTROSE/WATER 1 100ML.BAG IV SCH ×2 (01:12→11:08)
[2018-11-01 01:13] LABS: Glucose,Whole Blood 183 mg/dL (75-99)
[2018-11-01] MEDS: HYDROcodone/APAP 5-325MG 1 EACH TAB PO PRN ×2 (01:29→11:09)
[2018-11-01 02:40] LABS: Glucose,Whole Blood 165 mg/dL (75-99)
[2018-11-01 03:34] LABS: Glucose,Whole Blood 154 mg/dL (75-99)
[2018-11-01 04:04] LABS: ABG Base Excess -2.4 mmol/L; ABG HCO3 23 mmol/L (21-25); ABG Oxygen Saturation 85.6 % (94-97); ABG PCO2 42 mmHg (35-45); ABG PH 7.35 (7.35-7.45); ABG TCO2 24 mmol/L (19-24)
[2018-11-01 04:06] LABS: Glucose,Whole Blood 156 mg/dL (75-99)
[2018-11-01 04:08] LABS: ABG PO2 52 mmHg (83-108); Allen Test Performed? no
[2018-11-01] MEDS ORDERED: FUROSEMIDE 10 MG/ML 10 ML VIAL IV STA ×2 (04:11→16:21)
[2018-11-01 04:15] LABS: Basophils % (A) 0 %; Eosinophils % (A) 0 %; HCT 22.9 % (39.0-53.0); HGB 7.3 gm/dL (13.0-17.5); Lymphocytes # (A) 0.8 k/uL (1.0-4.8); Lymphocytes % (A) 7 %; MCH 29.7 pg (25.0-35.0); MCHC 31.6 g/dL (31.0-37.0); MCV 93.9 fL (80.0-100.0); Mean Platelet Volume 8.9; Monocytes # (A) 0.9 k/uL (0-1.0); Monocytes % (A) 8 %; Neutrophils # (A) 8.9 k/uL (1.3-7.7); Neutrophils % (A) 83 %; Platelet Count 193 k/uL (150-450); RBC 2.44 m/uL (4.30-5.90); RDW 14.8 % (11.5-15.5); WBC 10.8 k/uL (3.8-10.6)
--- NOTE | 2018-11-01 04:18 | XR ---
EXAM: XR Chest, 1 View CLINICAL HISTORY: SOB TECHNIQUE: Frontal view of the chest. COMPARISON: 10/31/2018 FINDINGS: Lungs: Left basilar atelectasis and/or infiltrates, more conspicuous on this study than the prior. Pleural space: No definitive pleural effusion. No pneumothorax. Heart: Cardiomegaly with findings suggestive of pulmonary vascular congestion/pulmonary edema, interval worsening since prior study, although this may be accentuated secondary to hypoventilation. Mediastinum: Widened mediastinum, more conspicuous on this study than the prior, likely representing pulmonary vascular congestion. Bones/joints: Sternotomy wires noted. Tubes, lines and devices: Interval extubation. Interval removal of NG tube. Remaining support devices are unchanged. IMPRESSION: 1. Interval extubation. Interval removal of NG tube. Remaining support devices are unchanged. 2. Cardiomegaly with findings suggestive of pulmonary vascular congestion/pulmonary edema, interval worsening since prior study, although this may be accentuated secondary to hypoventilation. 3. Left basilar atelectasis and/or infiltrates, more conspicuous on this study than the prior.
[2018-11-01 04:26] LABS: Ionized Calcium 4.6 mg/dL (4.5-5.3)
[2018-11-01 04:38] LABS: Albumin 3.7 g/dL (3.5-5.0); Calcium 8.2 mg/dL (8.4-10.2); Magnesium 2.6 mg/dL (1.6-2.3); Potassium 4.7 mmol/L (3.5-5.1); Total Bilirubin 0.4 mg/dL (0.2-1.3); Total Protein 5.6 g/dL (6.3-8.2)
[2018-11-01 04:48] LABS: Glucose,Whole Blood 170 mg/dL (75-99)
[2018-11-01 05:26] LABS: Glucose,Whole Blood 174 mg/dL (75-99)
[2018-11-01 06:20] LABS: Glucose,Whole Blood 171 mg/dL (75-99)
[2018-11-01] MEDS: IPRATROPIUM-ALBUTEROL 3 ML NEB INHALATION SCH ×4 (07:32→19:45)
--- NOTE | 2018-11-01 07:45 | PN ---
PROGRESS NOTE This is a pulmonary/critical care progress note. DATE OF SERVICE: November 01, 2018 This is a patient who is 73 years of age. He is postop day #1 status post mitral valve repair for mitral valve regurgitation. The patient was brought back from the operating room yesterday to the ICU. He was extubated beyond the 6-hour time limit. He was just not awake enough the time for extubation. Subsequent to that and shortly thereafter he was extubated successfully. The patient's surgery was done by Dr. Lozada. Early this morning, I was called because of low saturations and poor urine output. Chest x-ray apparently showed worsening pulmonary edema. Initially, he was trialed on high-flow oxygen and then a non-rebreather. Finally, I placed the patient on BiPAP at 12 and 5 and 100%. We were able to wean him down a bit to 50%. Dr. Lozada was called. Lasix 60 mg IV push was given. His initial blood gases on the non-rebreather were pO2 of 50, pCO2 of 42, pH 7.35. This is purely an oxygenation issue. He was on lactated Ringer's at 50 mL an hour, Primacor 0.3 mcg/kg per minute, nitroglycerin at 10 mcg/minute and insulin at 7.5 units an hour. Since placed on BiPAP, his saturations have been much more improved and he has been much more comfortable with a much lower respiratory rate. The patient's chest x-ray was evaluated. I did examine the patient this morning. PHYSICAL EXAMINATION: VITAL SIGNS: Current vital signs are reviewed. His temperature is 98 degrees, heart rate 75, respiratory rate between 19 and 22 breaths per minute, blood pressure 132/52, saturations are 97% on BiPAP. His PA pressure is 47/21. His central venous pressure is 12. Appears in no acute distress. Looks much more comfortable than what was mentioned to me over the phone. HEENT: Examination is grossly unremarkable. BiPAP mask in place. NECK: Supple. Full range of motion. No adenopathy or thyromegaly. Neck veins are flat. CARDIOVASCULAR: Examination reveals regular rhythm and rate. Heart rate mid 70s. Heart sounds are distant. No murmur noted. LUNGS: Reveal coarse rhonchi. No wheezes or crackles. ABDOMEN: Obese. Bowel sounds are heard. EXTREMITIES: Are intact. No significant edema. SKIN: Without rash. NEUROLOGIC: Examination is brief but nonfocal. LABS: Labs are reviewed. White count 10.8, hemoglobin 7.3, hematocrit 22.9, platelet count 193,000. No repeat blood gases were done. Sodium, potassium, chloride, CO2 all normal. Anion gap normal. BUN and creatinine were 45 and 2.29. Total protein 5.6. Alkaline phosphatase is 25. Chest x-ray shows a pattern of fluid overload and cardiomegaly with bilateral effusions and some infiltrate or atelectasis particularly in the left base. Microbiology studies are all negative. MEDICATIONS: Medications are reviewed. ASSESSMENT: 1. Postoperative day #1 status post mitral valve repair for severe mitral regurgitation. 2. Coronary artery disease with recent stent placement to the LAD on September 24. 3. Chronic diastolic congestive heart failure. 4. Diabetes mellitus, type 2. 5. Diabetic neuropathy. 6. Obesity. 7. Sleep apnea syndrome, not on home CPAP. 8. Pulmonary hypertension. 9. History of significant pipe smoking without inhalation. FEV1 54% of predicted. 10.Hypertension. 11.Hyperlipidemia. 12.Degenerative joint disease. PLAN: The patient is doing much better. Dr. Lozada has been informed. He has been placed on BiPAP at 12 and 5. He was initially started at 100%. It has been weaned down to 50%. Oxygenation is much improved. He remains on lactated Ringer's at 50 mL an hour. Primacor 0.3 mcg/kg per minute, nitroglycerin at 10 mcg/minute and insulin 7.5 units an hour. We will continue to watch very closely. Urine output has been disappointing. Hopefully with the BiPAP and preload reduction, the patient will do better in that regard. Additional recommendations and suggestions are forthcoming. Prognosis is guarded. CRITICAL CARE TIME is 34 minutes. MMODL / IJN: [id number] /
[2018-11-01 08:13] LABS: Glucose,Whole Blood 157 mg/dL (75-99)
[2018-11-01 08:13] LABS: Glucose,Whole Blood 153 mg/dL (75-99)
[2018-11-01] MEDS: PANTOPRAZOLE 40 MG/10 ML VIAL IVP SCH (08:21)
[2018-11-01] MEDS: CLOPIDOGREL 75 MG TAB PO SCH (08:22)
[2018-11-01] MEDS: HEPARIN SODIUM,PORCINE 5,000 UNIT/ML 1 ML VIAL SQ SCH ×2 (08:22→15:12)
[2018-11-01] MEDS: CHOLECALCIFEROL 1,000 UNIT TAB PO SCH (08:22)
[2018-11-01] MEDS: ASPIRIN 325 MG TAB PO SCH (08:22)
[2018-11-01] MEDS: METOPROLOL TARTRATE 12.5 MG TAB PO SCH ×2 (08:22→20:28)
[2018-11-01] MEDS: MULTIVITAMINS, THERA 1 EACH TAB PO SCH (08:22)
[2018-11-01] MEDS: FERROUS SULFATE 325 MG TAB PO SCH (08:23)
--- NOTE | 2018-11-01 08:41 | P.PN ---
Subjective Progress Note Date: 11/01/18 Principal diagnosis: Severe eccentric mitral valve regurgitation, severely calcified mitral annulus, torn chordae to P1 posterior leaflet, past medical history significant for radha nary artery disease with recent drug-eluting stent placed to his left anterior descending coronary artery on 09/24/2018, chronic diastolic heart failure, hypertension, hyperlipidemia, type 2 diabetes mellitus with peripheral neuropathy, chronic kidney disease with creatinine baseline around 2, obstr uctive sleep apnea without home CPAP use, pulmonary hypertension, obesity, osteoarthritis, remote history of tobacco dependence. POD #1 complex mitral valve repair with resection of torn chordae to P1, posterior leaflet plication of P1 and P2, small resection P1P2 leaflet, plication of both anterior mitral trigones, clip ligation of the left atrial appendage with a 35 mm Atriclip an intraoperative transesophageal echocardiogram. Postoperative acute blood loss anemia, an expected outcome due to cardiopulmonary bypass and hemodilution. The patient is currently laying in bed in the intensive care unit. He is in no acute distress. He currently denies any complaints of pain or shortness of breath. Around 4 AM this morning the patient did have some shortness of breath, the patient was placed on a nonrebreather oxygen support. ABGs were drawn which showed a pH of 7.35, pCO2 42, pO2 52, HCO3 23, oxygen saturation 85.6, and a base excess of -2.4. Subsequently the patient was placed on a BiPAP support with settings of 12/5, rate of 12, FiO2 50%. Currently his oxygen saturations are 97%. He is achieving 500 mL on his incentive spirometry. Right IJ Cordis and Jud-Laurel catheter remain in place, current cardiac output 5.1, cardiac index 2.5, PA pressures 44/20, CVP 10 mmHg. Mediastinal and left pleural chest tube remain in place to low continuous wall suction -20 cm H2O. No air leak is present. Draining thin serosanguineous drainage with 340 mL output in the last 8 hours. He is alert and oriented 3 and is moving all 4 extremities appropriately. Primacor drip remains infusing at 0.3 mcg/kg/m, nitroglycerin drip remains at 10 mcg/m. Objective - Vital Signs Vital signs: Vital Signs Temp 98.2 F 11/01/18 04:00 Pulse 76 11/01/18 07:36 Resp 20 11/01/18 07:00 BP 106/53 11/01/18 06:30 Pulse Ox 98 11/01/18 07:00 Intake & Output 10/31/18 11/01/18 11/01/18 18:59 06:59 18:59 Intake Total 1241 1413.330 51.323 Output Total 1715 1345 Balance -474 68.330 51.323 Weight 109.3 kg Intake: IV 597 1197 ACETAMINOPHEN IV (For NPO 100 100 ) 1,000 mg In Empty Bag 1 bag @ 400 mls/hr IVPB Q6HR [facility] Rx#:[id number] CO/CI 100 180 Lactated Ringers 1,000 ml 250 650 @ 50 mls/hr IV .Q20H [facility] Rx#:[id number] Potassium Chloride 10 meq 100 In Water For Injection 1 100ml.bag @ 100 mls/hr IVPB Q1H [facility] Rx#: [id number] ceFAZolin 2 gm In Sodium 150 Chloride 0.9% 50 ml @ 100 mls/hr IVPB Q8H [facility] Rx#: [id number] pressure bag 45 117 Intake, IV Titration 216.330 51.323 Amount Clevidipine Butyrate 25 13.067 mg In Empty Bag 1 bag @ 1 MG/HR 2 mls/hr IV .Q24H [facility] Rx#:[id number] Insulin Regular 100 unit 53.749 9.873 In Sodium Chloride 0.9% 100 ml @ Per Protocol IV .Q0M [facility] Rx#:[id number] Milrinone-D5w Pmx 20 mg 97.776 In Dextrose/Water 1 100ml .bag @ Per Protocol IV . Q0M [facility]IME Rx#:[id number] Nitroglycerin-D5w Pmx 50 41.45 mg In Dextrose/Water 1 250ml.bag @ 10 MCG/MIN 3 mls/hr IV .Q24H [facility] Rx#: [id number] Norepinephrine 4 mg In 51.738 Sodium Chloride 0.9% 250 ml @ 0.02 MCG/KG/MIN 7. 391 mls/hr IV .Q24H [facility]IME Rx#:[id number] Blood Product 644 Ffp 24 Pher Acda Unit 200 [id number] Ffp 24 Pher Acda Unit 208 [id number] Platelet Pheresis Acda2 236 Unit [id number] Output: Chest Tube Drainage 560 750 Chest Tube Left Pleural/ 560 750 Mediastinal Urine 655 595 Estimated Blood Loss 500 Other: Voiding Method Indwelling Catheter Indwelling Catheter ABP, PAP, CO, CI - Last Documented Arterial Blood Pressure 122/40 Pulmonary Artery Pressure 38/18 Cardiac Output 5.1 Cardiac Index 2.5 - Constitutional General appearance: Present: cooperative, no acute distress, obese - Respiratory Details: Lungs sounds essentially diminished throughout. Respirations are symmetrical and nonlabored with BiPAP support. Oxygen saturation currently 97% on current BiPAP settings. Achieving 500 mL on his incentive spirometry. Mediastinal and left pleural chest tubes remain in place to low continuous wall suction -20 cm H2O. No air leak is present. Draining thin serosanguineous drainage. 1.3 L output since surgery, 340 mL output in the last 8 hours. - Cardiovascular Details: Regular rhythm and rate. S1 and S2 present, negative for S3, gallop or murmur. Sternum is stable. Bedside telemetry showing normal sinus rhythm heart rate 73. Ventricular epicardial pacemaker wires in place and connected to back up to bedside pacemaker generator with a VVI 50. Heart hugger is in place and he is demonstrating appropriate use. Knee-high GUERRERO hose and sequential compression devices in place to his bilateral lower extremities. Right IJ Cordis in place with Jud-Laurel catheter. Left radial arterial line in place and functioning. - Gastrointestinal Gastrointestinal Comment(s): Abdomen is soft, nontender and nondistended. Hypoactive bowel sounds present in all 4 abdominal quadrants. No guarding or rigidity. No organomegaly appreciated. Tolerating oral intake. - Genitourinary Genitourinary Comment(s): Burrell catheter for accurate I&O. Draining clear yellow urine. 415 mL output in the last 8 hours. - Integumentary Integumentary Comment(s): Skin is warm and dry. No clubbing or cyanosis is present. Midline sternal incision is clean, dry and approximated. No drainage or redness is present. Exofin dressing is clean, dry and intact. Gauze dressing is clean, dry and intact. - Neurologic Neurologic: Present: CNII-XII intact - Musculoskeletal Musculoskeletal: Present: gait normal, generalized weakness, strength equal bilaterally - Psychiatric Psychiatric: Present: A&O x's 3, appropriate affect, intact judgment & insight - Allied health notes Allied health notes reviewed: nursing - Labs CBC & Chem 7: 11/01/18 03:58 11/01/18 03:58 Labs: Abnormal Lab Results - Last 24 Hours (Table) 10/30/18 10/31/18 10/31/18 Range/Units 05:53 09:15 09:52 WBC (3.8-10.6) k/uL RBC (4.30-5.90) m/uL Hgb (13.0-17.5) gm/dL Hct (39.0-53.0) % Plt Count (150-450) k/uL Neutrophils # (1.3-7.7) k/uL Lymphocytes # (1.0-4.8) k/uL PT (9.0-12.0) sec INR (<1.2) ABG pH (7.35-7.45) ABG pCO2 (35-45) mmHg ABG pO2 214 H 196 H (83-108) mmHg ABG HCO3 (21-25) mmol/L ABG Total CO2 26 H 26 H (19-24) mmol/L ABG O2 Saturation 99.8 H 100.0 H (94-97) % ABG Hematocrit 30 L (34.0-46.0) % ABG Potassium (3.4-4.5) mmol/L ABG Ionized Calcium 4.1 L 4.4 L (4.5-5.3) mg/dL ABG Glucose 154 H (75-99) mg/dL ABG Lactic Acid 1.8 H (0.5-1.6) mmol/L Hemoglobin 9.8 L 11.0 L (13.0-17.5) gm/dL BUN (9-20) mg/dL Creatinine (0.66-1.25) mg/dL Glucose (74-99) mg/dL POC Glucose (mg/dL) (75-99) mg/dL Calcium (8.4-10.2) mg/dL Magnesium (1.6-2.3) mg/dL AST (17-59) U/L Alkaline Phosphatase (38-126) U/L Total Protein (6.3-8.2) g/dL Albumin (3.5-5.0) g/dL Arterial Blood Potassium (3.4-4.5) mmol/L Arterial Blood Glucose 154 H (75-99) mg/dL Crossmatch See Detail 10/31/18 10/31/18 10/31/18 Range/Units 10:20 10:54 11:30 WBC (3.8-10.6) k/uL RBC (4.30-5.90) m/uL Hgb (13.0-17.5) gm/dL Hct (39.0-53.0) % Plt Count (150-450) k/uL Neutrophils # (1.3-7.7) k/uL Lymphocytes # (1.0-4.8) k/uL PT (9.0-12.0) sec INR (<1.2) ABG pH 7.33 L (7.35-7.45) ABG pCO2 49 H 46 H (35-45) mmHg ABG pO2 >420 H 260 H 329 H (83-108) mmHg ABG HCO3 26 H (21-25) mmol/L ABG Total CO2 26 H 27 H 27 H (19-24) mmol/L ABG O2 Saturation 100.0 H 100.0 H 100.0 H (94-97) % ABG Hematocrit 24 L 25 L 26 L (34.0-46.0) % ABG Potassium 4.7 H (3.4-4.5) mmol/L ABG Ionized Calcium 3.9 L 4.0 L 4.1 L (4.5-5.3) mg/dL ABG Glucose 196 H 196 H 177 H (75-99) mg/dL ABG Lactic Acid (0.5-1.6) mmol/L Hemoglobin 7.9 L 8.3 L 8.5 L (13.0-17.5) gm/dL BUN (9-20) mg/dL Creatinine (0.66-1.25) mg/dL Glucose (74-99) mg/dL POC Glucose (mg/dL) (75-99) mg/dL Calcium (8.4-10.2) mg/dL Magnesium (1.6-2.3) mg/dL AST (17-59) U/L Alkaline Phosphatase (38-126) U/L Total Protein (6.3-8.2) g/dL Albumin (3.5-5.0) g/dL Arterial Blood Potassium 4.7 H (3.4-4.5) mmol/L Arterial Blood Glucose 196 H 196 H 177 H (75-99) mg/dL Crossmatch 10/31/18 10/31/18 10/31/18 Range/Units 12:54 13:40 13:40 WBC (3.8-10.6) k/uL RBC 2.94 L (4.30-5.90) m/uL Hgb 9.3 L D (13.0-17.5) gm/dL Hct 27.8 L (39.0-53.0) % Plt Count (150-450) k/uL Neutrophils # (1.3-7.7) k/uL Lymphocytes # 0.9 L (1.0-4.8) k/uL PT (9.0-12.0) sec INR (<1.2) ABG pH (7.35-7.45) ABG pCO2 (35-45) mmHg ABG pO2 120 H (83-108) mmHg ABG HCO3 26 H (21-25) mmol/L ABG Total CO2 27 H (19-24) mmol/L ABG O2 Saturation 99.1 H (94-97) % ABG Hematocrit (34.0-46.0) % ABG Potassium (3.4-4.5) mmol/L ABG Ionized Calcium (4.5-5.3) mg/dL ABG Glucose (75-99) mg/dL ABG Lactic Acid (0.5-1.6) mmol/L Hemoglobin 11.7 L (13.0-17.5) gm/dL BUN 43 H (9-20) mg/dL Creatinine 1.78 H (0.66-1.25) mg/dL Glucose 122 H (74-99) mg/dL POC Glucose (mg/dL) (75-99) mg/dL Calcium 7.7 L (8.4-10.2) mg/dL Magnesium 2.8 H (1.6-2.3) mg/dL AST (17-59) U/L Alkaline Phosphatase <20 L (38-126) U/L Total Protein 5.3 L (6.3-8.2) g/dL Albumin 3.4 L (3.5-5.0) g/dL Arterial Blood Potassium (3.4-4.5) mmol/L Arterial Blood Glucose (75-99) mg/dL Crossmatch 10/31/18 10/31/18 10/31/18 Range/Units 13:40 13:43 14:16 WBC (3.8-10.6) k/uL RBC (4.30-5.90) m/uL Hgb (13.0-17.5) gm/dL Hct (39.0-53.0) % Plt Count (150-450) k/uL Neutrophils # (1.3-7.7) k/uL Lymphocytes # (1.0-4.8) k/uL PT 12.2 H (9.0-12.0) sec INR 1.2 H (<1.2) ABG pH 7.29 L (7.35-7.45) ABG pCO2 54 H (35-45) mmHg ABG pO2 163 H (83-108) mmHg ABG HCO3 26 H (21-25) mmol/L ABG Total CO2 28 H (19-24) mmol/L ABG O2 Saturation 99.2 H (94-97) % ABG Hematocrit (34.0-46.0) % ABG Potassium (3.4-4.5) mmol/L ABG Ionized Calcium (4.5-5.3) mg/dL ABG Glucose (75-99) mg/dL ABG Lactic Acid (0.5-1.6) mmol/L Hemoglobin (13.0-17.5) gm/dL BUN (9-20) mg/dL Creatinine (0.66-1.25) mg/dL Glucose (74-99) mg/dL POC Glucose (mg/dL) 129 H (75-99) mg/dL Calcium (8.4-10.2) mg/dL Magnesium (1.6-2.3) mg/dL AST (17-59) U/L Alkaline Phosphatase (38-126) U/L Total Protein (6.3-8.2) g/dL Albumin (3.5-5.0) g/dL Arterial Blood Potassium (3.4-4.5) mmol/L Arterial Blood Glucose (75-99) mg/dL Crossmatch 10/31/18 10/31/18 10/31/18 Range/Units 15:12 16:04 16:42 WBC (3.8-10.6) k/uL RBC 2.60 L (4.30-5.90) m/uL Hgb 7.5 L D (13.0-17.5) gm/dL Hct 24.2 L (39.0-53.0) % Plt Count 124 L (150-450) k/uL Neutrophils # (1.3-7.7) k/uL Lymphocytes # 0.3 L (1.0-4.8) k/uL PT (9.0-12.0) sec INR (<1.2) ABG pH (7.35-7.45) ABG pCO2 (35-45) mmHg ABG pO2 (83-108) mmHg ABG HCO3 (21-25) mmol/L ABG Total CO2 (19-24) mmol/L ABG O2 Saturation (94-97) % ABG Hematocrit (34.0-46.0) % ABG Potassium (3.4-4.5) mmol/L ABG Ionized Calcium (4.5-5.3) mg/dL ABG Glucose (75-99) mg/dL ABG Lactic Acid (0.5-1.6) mmol/L Hemoglobin (13.0-17.5) gm/dL BUN (9-20) mg/dL Creatinine (0.66-1.25) mg/dL Glucose (74-99) mg/dL POC Glucose (mg/dL) 129 H 137 H (75-99) mg/dL Calcium (8.4-10.2) mg/dL Magnesium (1.6-2.3) mg/dL AST (17-59) U/L Alkaline Phosphatase (38-126) U/L Total Protein (6.3-8.2) g/dL Albumin (3.5-5.0) g/dL Arterial Blood Potassium (3.4-4.5) mmol/L Arterial Blood Glucose (75-99) mg/dL Crossmatch 10/31/18 10/31/18 10/31/18 Range/Units 16:46 17:58 18:54 WBC (3.8-10.6) k/uL RBC (4.30-5.90) m/uL Hgb (13.0-17.5) gm/dL Hct (39.0-53.0) % Plt Count (150-450) k/uL Neutrophils # (1.3-7.7) k/uL Lymphocytes # (1.0-4.8) k/uL PT (9.0-12.0) sec INR (<1.2) ABG pH (7.35-7.45) ABG pCO2 (35-45) mmHg ABG pO2 (83-108) mmHg ABG HCO3 (21-25) mmol/L ABG Total CO2 (19-24) mmol/L ABG O2 Saturation (94-97) % ABG Hematocrit (34.0-46.0) % ABG Potassium (3.4-4.5) mmol/L ABG Ionized Calcium (4.5-5.3) mg/dL ABG Glucose (75-99) mg/dL ABG Lactic Acid (0.5-1.6) mmol/L Hemoglobin (13.0-17.5) gm/dL BUN (9-20) mg/dL Creatinine (0.66-1.25) mg/dL Glucose (74-99) mg/dL POC Glucose (mg/dL) 156 H 168 H 153 H (75-99) mg/dL Calcium (8.4-10.2) mg/dL Magnesium (1.6-2.3) mg/dL AST (17-59) U/L Alkaline Phosphatase (38-126) U/L Total Protein (6.3-8.2) g/dL Albumin (3.5-5.0) g/dL Arterial Blood Potassium (3.4-4.5) mmol/L Arterial Blood Glucose (75-99) mg/dL Crossmatch 10/31/18 10/31/18 10/31/18 Range/Units 19:39 19:40 20:33 WBC (3.8-10.6) k/uL RBC 2.40 L (4.30-5.90) m/uL Hgb 7.7 L (13.0-17.5) gm/dL Hct 22.4 L (39.0-53.0) % Plt Count (150-450) k/uL Neutrophils # (1.3-7.7) k/uL Lymphocytes # 0.4 L (1.0-4.8) k/uL PT (9.0-12.0) sec INR (<1.2) ABG pH (7.35-7.45) ABG pCO2 (35-45) mmHg ABG pO2 (83-108) mmHg ABG HCO3 (21-25) mmol/L ABG Total CO2 25 H (19-24) mmol/L ABG O2 Saturation 97.6 H (94-97) % ABG Hematocrit (34.0-46.0) % ABG Potassium (3.4-4.5) mmol/L ABG Ionized Calcium (4.5-5.3) mg/dL ABG Glucose (75-99) mg/dL ABG Lactic Acid (0.5-1.6) mmol/L Hemoglobin (13.0-17.5) gm/dL BUN (9-20) mg/dL Creatinine (0.66-1.25) mg/dL Glucose (74-99) mg/dL POC Glucose (mg/dL) 159 H (75-99) mg/dL Calcium (8.4-10.2) mg/dL Magnesium (1.6-2.3) mg/dL AST (17-59) U/L Alkaline Phosphatase (38-126) U/L Total Protein (6.3-8.2) g/dL Albumin (3.5-5.0) g/dL Arterial Blood Potassium (3.4-4.5) mmol/L Arterial Blood Glucose (75-99) mg/dL Crossmatch 10/31/18 10/31/18 10/31/18 Range/Units 21:21 22:39 23:21 WBC (3.8-10.6) k/uL RBC (4.30-5.90) m/uL Hgb (13.0-17.5) gm/dL Hct (39.0-53.0) % Plt Count (150-450) k/uL Neutrophils # (1.3-7.7) k/uL Lymphocytes # (1.0-4.8) k/uL PT (9.0-12.0) sec INR (<1.2) ABG pH (7.35-7.45) ABG pCO2 (35-45) mmHg ABG pO2 (83-108) mmHg ABG HCO3 (21-25) mmol/L ABG Total CO2 (19-24) mmol/L ABG O2 Saturation (94-97) % ABG Hematocrit (34.0-46.0) % ABG Potassium (3.4-4.5) mmol/L ABG Ionized Calcium (4.5-5.3) mg/dL ABG Glucose (75-99) mg/dL ABG Lactic Acid (0.5-1.6) mmol/L Hemoglobin (13.0-17.5) gm/dL BUN (9-20) mg/dL Creatinine (0.66-1.25) mg/dL Glucose (74-99) mg/dL POC Glucose (mg/dL) 175 H 199 H 198 H (75-99) mg/dL Calcium (8.4-10.2) mg/dL Magnesium (1.6-2.3) mg/dL AST (17-59) U/L Alkaline Phosphatase (38-126) U/L Total Protein (6.3-8.2) g/dL Albumin (3.5-5.0) g/dL Arterial Blood Potassium (3.4-4.5) mmol/L Arterial Blood Glucose (75-99) mg/dL Crossmatch 11/01/18 11/01/18 11/01/18 Range/Units 00:04 01:11 02:26 WBC (3.8-10.6) k/uL RBC (4.30-5.90) m/uL Hgb (13.0-17.5) gm/dL Hct (39.0-53.0) % Plt Count (150-450) k/uL Neutrophils # (1.3-7.7) k/uL Lymphocytes # (1.0-4.8) k/uL PT (9.0-12.0) sec INR (<1.2) ABG pH (7.35-7.45) ABG pCO2 (35-45) mmHg ABG pO2 (83-108) mmHg ABG HCO3 (21-25) mmol/L ABG Total CO2 (19-24) mmol/L ABG O2 Saturation (94-97) % ABG Hematocrit (34.0-46.0) % ABG Potassium (3.4-4.5) mmol/L ABG Ionized Calcium (4.5-5.3) mg/dL ABG Glucose (75-99) mg/dL ABG Lactic Acid (0.5-1.6) mmol/L Hemoglobin (13.0-17.5) gm/dL BUN (9-20) mg/dL Creatinine (0.66-1.25) mg/dL Glucose (74-99) mg/dL POC Glucose (mg/dL) 197 H 183 H 165 H (75-99) mg/dL Calcium (8.4-10.2) mg/dL Magnesium (1.6-2.3) mg/dL AST (17-59) U/L Alkaline Phosphatase (38-126) U/L Total Protein (6.3-8.2) g/dL Albumin (3.5-5.0) g/dL Arterial Blood Potassium (3.4-4.5) mmol/L Arterial Blood Glucose (75-99) mg/dL Crossmatch 11/01/18 11/01/18 11/01/18 Range/Units 03:20 03:51 03:58 WBC 10.8 H (3.8-10.6) k/uL RBC 2.44 L (4.30-5.90) m/uL Hgb 7.3 L (13.0-17.5) gm/dL Hct 22.9 L (39.0-53.0) % Plt Count (150-450) k/uL Neutrophils # 8.9 H (1.3-7.7) k/uL Lymphocytes # 0.8 L (1.0-4.8) k/uL PT (9.0-12.0) sec INR (<1.2) ABG pH (7.35-7.45) ABG pCO2 (35-45) mmHg ABG pO2 (83-108) mmHg ABG HCO3 (21-25) mmol/L ABG Total CO2 (19-24) mmol/L ABG O2 Saturation (94-97) % ABG Hematocrit (34.0-46.0) % ABG Potassium (3.4-4.5) mmol/L ABG Ionized Calcium (4.5-5.3) mg/dL ABG Glucose (75-99) mg/dL ABG Lactic Acid (0.5-1.6) mmol/L Hemoglobin (13.0-17.5) gm/dL BUN (9-20) mg/dL Creatinine (0.66-1.25) mg/dL Glucose (74-99) mg/dL POC Glucose (mg/dL) 154 H 156 H (75-99) mg/dL Calcium (8.4-10.2) mg/dL Magnesium (1.6-2.3) mg/dL AST (17-59) U/L Alkaline Phosphatase (38-126) U/L Total Protein (6.3-8.2) g/dL Albumin (3.5-5.0) g/dL Arterial Blood Potassium (3.4-4.5) mmol/L Arterial Blood Glucose (75-99) mg/dL Crossmatch 11/01/18 11/01/18 11/01/18 Range/Units 03:58 04:01 04:44 WBC (3.8-10.6) k/uL RBC (4.30-5.90) m/uL Hgb (13.0-17.5) gm/dL Hct (39.0-53.0) % Plt Count (150-450) k/uL Neutrophils # (1.3-7.7) k/uL Lymphocytes # (1.0-4.8) k/uL PT (9.0-12.0) sec INR (<1.2) ABG pH (7.35-7.45) ABG pCO2 (35-45) mmHg ABG pO2 52 L* (83-108) mmHg ABG HCO3 (21-25) mmol/L ABG Total CO2 (19-24) mmol/L ABG O2 Saturation 85.6 L (94-97) % ABG Hematocrit (34.0-46.0) % ABG Potassium (3.4-4.5) mmol/L ABG Ionized Calcium (4.5-5.3) mg/dL ABG Glucose (75-99) mg/dL ABG Lactic Acid (0.5-1.6) mmol/L Hemoglobin (13.0-17.5) gm/dL BUN 45 H (9-20) mg/dL Creatinine 2.29 H (0.66-1.25) mg/dL Glucose 144 H (74-99) mg/dL POC Glucose (mg/dL) 170 H (75-99) mg/dL Calcium 8.2 L (8.4-10.2) mg/dL Magnesium 2.6 H (1.6-2.3) mg/dL AST 91 H (17-59) U/L Alkaline Phosphatase 25 L (38-126) U/L Total Protein 5.6 L (6.3-8.2) g/dL Albumin (3.5-5.0) g/dL Arterial Blood Potassium (3.4-4.5) mmol/L Arterial Blood Glucose (75-99) mg/dL Crossmatch 11/01/18 11/01/18 Range/Units 05:12 06:19 WBC (3.8-10.6) k/uL RBC (4.30-5.90) m/uL Hgb (13.0-17.5) gm/dL Hct (39.0-53.0) % Plt Count (150-450) k/uL Neutrophils # (1.3-7.7) k/uL Lymphocytes # (1.0-4.8) k/uL PT (9.0-12.0) sec INR (<1.2) ABG pH (7.35-7.45) ABG pCO2 (35-45) mmHg ABG pO2 (83-108) mmHg ABG HCO3 (21-25) mmol/L ABG Total CO2 (19-24) mmol/L ABG O2 Saturation (94-97) % ABG Hematocrit (34.0-46.0) % ABG Potassium (3.4-4.5) mmol/L ABG Ionized Calcium (4.5-5.3) mg/dL ABG Glucose (75-99) mg/dL ABG Lactic Acid (0.5-1.6) mmol/L Hemoglobin (13.0-17.5) gm/dL BUN (9-20) mg/dL Creatinine (0.66-1.25) mg/dL Glucose (74-99) mg/dL POC Glucose (mg/dL) 174 H 171 H (75-99) mg/dL Calcium (8.4-10.2) mg/dL Magnesium (1.6-2.3) mg/dL AST (17-59) U/L Alkaline Phosphatase (38-126) U/L Total Protein (6.3-8.2) g/dL Albumin (3.5-5.0) g/dL Arterial Blood Potassium (3.4-4.5) mmol/L Arterial Blood Glucose (75-99) mg/dL Crossmatch - Imaging and Cardiology Chest x-ray: report reviewed, image reviewed Assessment and Plan Assessment: 1. Severe eccentric mitral valve regurgitation, severely calcified mitral annulus, performed chordee to P1 posterior leaflet, status post mitral valve repair 2. Coronary artery disease with recent drug-eluting stent to the LAD on 09/24/2018 3. Chronic diastolic heart failure 4. Hypertension 5. Hyperlipidemia 6. Type 2 diabetes mellitus with peripheral neuropathy 7. Chronic kidney disease with creatinine baseline around 2 8. Obstructive sleep apnea without home CPAP use 9. Pulmonary hypertension 10. Obesity 11. Osteoarthritis 12. Remote history of tobacco dependence Plan: 1. Continue aspirin, statin, Plavix, and beta sun. Will increase beta sun as tolerated. 2. Continue Primacor at 0.3 mcg/kg/m, keep nitroglycerin drip at 10 mcg/m. 3. Wean O2/BiPAP as tolerated. BiPAP management per Dr. Celis's recommendations. Encourage incentive spirometry use 10 times every hour while awake. 4. Increase activity, ambulate as tolerated. PT/OT/cardiac rehab consulted. 5. Will monitor daily labs and chest x-rays. Electrolyte replacement per protocol. No transfusion at this point. 6. Bronchodilators per pulmonology management. 7. Pain control with current medication regimen. Avoid Toradol due to his renal function. 8. Insulin management per primary care service. 9. Keep Jud-Laurel catheter in while on Primacor drip. 10. Continue chest tubes, left radial arterial line and Burrell catheter. 11. The patient's home dose of ferrous sulfate has been restarted. 13. Avoid nephrotoxic medications. 14. Encourage continue cessation of tobacco. 15. More recommendations to follow based on patient's clinical course. Time with Patient: Greater than 30
[2018-11-01 08:59] LABS: Glucose,Whole Blood 142 mg/dL (75-99)
[2018-11-01] MEDS ORDERED: ATORVASTATIN 40 MG TAB PO SCH (09:00)
[2018-11-01] MEDS ORDERED: BISACODYL 10 MG SUPP RECTAL PRN (09:00)
[2018-11-01] MEDS ORDERED: MAGNESIUM HYDROXIDE 2,400 MG/10 ML CUP PO PRN (09:00)
[2018-11-01] MEDS ORDERED: CLOPIDOGREL 75 MG TAB PO SCH (09:00)
--- NOTE | 2018-11-01 09:17 | P.PN ---
Subjective Progress Note Date: 11/01/18 Principal diagnosis: Severe mitral regurgitation This is a 73-year-old gentleman with CAD and prior stenting of the LAD, severe mitral regurgitation, underwent mitral valve repair yesterday. On follow-up with him today, he seems to be hemodynamically stable. He has been maintaining normal sinus mechanism. Apparently the repair was very complex. Objective - Vital Signs Vital signs: Vital Signs Temp 98 F 11/01/18 08:00 Pulse 83 11/01/18 08:30 Resp 24 11/01/18 08:30 BP 98/48 11/01/18 08:30 Pulse Ox 94 L 11/01/18 08:30 Intake & Output 10/31/18 11/01/18 11/01/18 18:59 06:59 18:59 Intake Total 1241 1413.330 214.752 Output Total 1715 1345 180 Balance -474 68.330 34.752 Weight 109.3 kg Intake: IV 597 1197 158 ACETAMINOPHEN IV (For NPO 100 100 ) 1,000 mg In Empty Bag 1 bag @ 400 mls/hr IVPB Q6HR [facility] Rx#:[id number] CO/CI 100 180 40 Lactated Ringers 1,000 ml 250 650 100 @ 20 mls/hr IV .Q24H [facility] Rx#:[id number] Potassium Chloride 10 meq 100 In Water For Injection 1 100ml.bag @ 100 mls/hr IVPB Q1H [facility] Rx#: [id number] ceFAZolin 2 gm In Sodium 150 Chloride 0.9% 50 ml @ 100 mls/hr IVPB Q8H [facility] Rx#: [id number] pressure bag 45 117 18 Intake, IV Titration 216.330 56.752 Amount Clevidipine Butyrate 25 13.067 mg In Empty Bag 1 bag @ 1 MG/HR 2 mls/hr IV .Q24H [facility] Rx#:[id number] Insulin Regular 100 unit 53.749 15.302 In Sodium Chloride 0.9% 100 ml @ Per Protocol IV .Q0M [facility] Rx#:[id number] Milrinone-D5w Pmx 20 mg 97.776 In Dextrose/Water 1 100ml .bag @ Per Protocol IV . Q0M [facility] Rx#:[id number] Nitroglycerin-D5w Pmx 50 41.45 mg In Dextrose/Water 1 250ml.bag @ 10 MCG/MIN 3 mls/hr IV .Q24H [facility] Rx#: [id number] Norepinephrine 4 mg In 51.738 Sodium Chloride 0.9% 250 ml @ 0.02 MCG/KG/MIN 7. 391 mls/hr IV .Q24H [facility] Rx#:[id number] Blood Product 644 Ffp 24 Pher Acda Unit 200 [id number] Ffp 24 Pher Acda Unit 208 [id number] Platelet Pheresis Acda2 236 Unit [id number] Output: Chest Tube Drainage 560 750 110 Chest Tube Left Pleural/ 560 750 110 Mediastinal Urine 655 595 70 Estimated Blood Loss 500 Other: Voiding Method Indwelling Catheter Indwelling Catheter Indwelling Catheter ABP, PAP, CO, CI - Last Documented Arterial Blood Pressure 117/42 Pulmonary Artery Pressure 49/19 Cardiac Output 9.2 Cardiac Index 4.5 - Labs CBC & Chem 7: 11/01/18 03:58 11/01/18 03:58 Labs: Abnormal Lab Results - Last 24 Hours (Table) 10/30/18 10/31/18 10/31/18 Range/Units 05:53 09:15 09:52 WBC (3.8-10.6) k/uL RBC (4.30-5.90) m/uL Hgb (13.0-17.5) gm/dL Hct (39.0-53.0) % Plt Count (150-450) k/uL Neutrophils # (1.3-7.7) k/uL Lymphocytes # (1.0-4.8) k/uL PT (9.0-12.0) sec INR (<1.2) ABG pH (7.35-7.45) ABG pCO2 (35-45) mmHg ABG pO2 214 H 196 H (83-108) mmHg ABG HCO3 (21-25) mmol/L ABG Total CO2 26 H 26 H (19-24) mmol/L ABG O2 Saturation 99.8 H 100.0 H (94-97) % ABG Hematocrit 30 L (34.0-46.0) % ABG Potassium (3.4-4.5) mmol/L ABG Ionized Calcium 4.1 L 4.4 L (4.5-5.3) mg/dL ABG Glucose 154 H (75-99) mg/dL ABG Lactic Acid 1.8 H (0.5-1.6) mmol/L Hemoglobin 9.8 L 11.0 L (13.0-17.5) gm/dL BUN (9-20) mg/dL Creatinine (0.66-1.25) mg/dL Glucose (74-99) mg/dL POC Glucose (mg/dL) (75-99) mg/dL Calcium (8.4-10.2) mg/dL Magnesium (1.6-2.3) mg/dL AST (17-59) U/L Alkaline Phosphatase (38-126) U/L Total Protein (6.3-8.2) g/dL Albumin (3.5-5.0) g/dL Arterial Blood Potassium (3.4-4.5) mmol/L Arterial Blood Glucose 154 H (75-99) mg/dL Crossmatch See Detail 10/31/18 10/31/18 10/31/18 Range/Units 10:20 10:54 11:30 WBC (3.8-10.6) k/uL RBC (4.30-5.90) m/uL Hgb (13.0-17.5) gm/dL Hct (39.0-53.0) % Plt Count (150-450) k/uL Neutrophils # (1.3-7.7) k/uL Lymphocytes # (1.0-4.8) k/uL PT (9.0-12.0) sec INR (<1.2) ABG pH 7.33 L (7.35-7.45) ABG pCO2 49 H 46 H (35-45) mmHg ABG pO2 >420 H 260 H 329 H (83-108) mmHg ABG HCO3 26 H (21-25) mmol/L ABG Total CO2 26 H 27 H 27 H (19-24) mmol/L ABG O2 Saturation 100.0 H 100.0 H 100.0 H (94-97) % ABG Hematocrit 24 L 25 L 26 L (34.0-46.0) % ABG Potassium 4.7 H (3.4-4.5) mmol/L ABG Ionized Calcium 3.9 L 4.0 L 4.1 L (4.5-5.3) mg/dL ABG Glucose 196 H 196 H 177 H (75-99) mg/dL ABG Lactic Acid (0.5-1.6) mmol/L Hemoglobin 7.9 L 8.3 L 8.5 L (13.0-17.5) gm/dL BUN (9-20) mg/dL Creatinine (0.66-1.25) mg/dL Glucose (74-99) mg/dL POC Glucose (mg/dL) (75-99) mg/dL Calcium (8.4-10.2) mg/dL Magnesium (1.6-2.3) mg/dL AST (17-59) U/L Alkaline Phosphatase (38-126) U/L Total Protein (6.3-8.2) g/dL Albumin (3.5-5.0) g/dL Arterial Blood Potassium 4.7 H (3.4-4.5) mmol/L Arterial Blood Glucose 196 H 196 H 177 H (75-99) mg/dL Crossmatch 10/31/18 10/31/18 10/31/18 Range/Units 12:54 13:40 13:40 WBC (3.8-10.6) k/uL RBC 2.94 L (4.30-5.90) m/uL Hgb 9.3 L D (13.0-17.5) gm/dL Hct 27.8 L (39.0-53.0) % Plt Count (150-450) k/uL Neutrophils # (1.3-7.7) k/uL Lymphocytes # 0.9 L (1.0-4.8) k/uL PT (9.0-12.0) sec INR (<1.2) ABG pH (7.35-7.45) ABG pCO2 (35-45) mmHg ABG pO2 120 H (83-108) mmHg ABG HCO3 26 H (21-25) mmol/L ABG Total CO2 27 H (19-24) mmol/L ABG O2 Saturation 99.1 H (94-97) % ABG Hematocrit (34.0-46.0) % ABG Potassium (3.4-4.5) mmol/L ABG Ionized Calcium (4.5-5.3) mg/dL ABG Glucose (75-99) mg/dL ABG Lactic Acid (0.5-1.6) mmol/L Hemoglobin 11.7 L (13.0-17.5) gm/dL BUN 43 H (9-20) mg/dL Creatinine 1.78 H (0.66-1.25) mg/dL Glucose 122 H (74-99) mg/dL POC Glucose (mg/dL) (75-99) mg/dL Calcium 7.7 L (8.4-10.2) mg/dL Magnesium 2.8 H (1.6-2.3) mg/dL AST (17-59) U/L Alkaline Phosphatase <20 L (38-126) U/L Total Protein 5.3 L (6.3-8.2) g/dL Albumin 3.4 L (3.5-5.0) g/dL Arterial Blood Potassium (3.4-4.5) mmol/L Arterial Blood Glucose (75-99) mg/dL Crossmatch 10/31/18 10/31/18 10/31/18 Range/Units 13:40 13:43 14:16 WBC (3.8-10.6) k/uL RBC (4.30-5.90) m/uL Hgb (13.0-17.5) gm/dL Hct (39.0-53.0) % Plt Count (150-450) k/uL Neutrophils # (1.3-7.7) k/uL Lymphocytes # (1.0-4.8) k/uL PT 12.2 H (9.0-12.0) sec INR 1.2 H (<1.2) ABG pH 7.29 L (7.35-7.45) ABG pCO2 54 H (35-45) mmHg ABG pO2 163 H (83-108) mmHg ABG HCO3 26 H (21-25) mmol/L ABG Total CO2 28 H (19-24) mmol/L ABG O2 Saturation 99.2 H (94-97) % ABG Hematocrit (34.0-46.0) % ABG Potassium (3.4-4.5) mmol/L ABG Ionized Calcium (4.5-5.3) mg/dL ABG Glucose (75-99) mg/dL ABG Lactic Acid (0.5-1.6) mmol/L Hemoglobin (13.0-17.5) gm/dL BUN (9-20) mg/dL Creatinine (0.66-1.25) mg/dL Glucose (74-99) mg/dL POC Glucose (mg/dL) 129 H (75-99) mg/dL Calcium (8.4-10.2) mg/dL Magnesium (1.6-2.3) mg/dL AST (17-59) U/L Alkaline Phosphatase (38-126) U/L Total Protein (6.3-8.2) g/dL Albumin (3.5-5.0) g/dL Arterial Blood Potassium (3.4-4.5) mmol/L Arterial Blood Glucose (75-99) mg/dL Crossmatch 10/31/18 10/31/18 10/31/18 Range/Units 15:12 16:04 16:42 WBC (3.8-10.6) k/uL RBC 2.60 L (4.30-5.90) m/uL Hgb 7.5 L D (13.0-17.5) gm/dL Hct 24.2 L (39.0-53.0) % Plt Count 124 L (150-450) k/uL Neutrophils # (1.3-7.7) k/uL Lymphocytes # 0.3 L (1.0-4.8) k/uL PT (9.0-12.0) sec INR (<1.2) ABG pH (7.35-7.45) ABG pCO2 (35-45) mmHg ABG pO2 (83-108) mmHg ABG HCO3 (21-25) mmol/L ABG Total CO2 (19-24) mmol/L ABG O2 Saturation (94-97) % ABG Hematocrit (34.0-46.0) % ABG Potassium (3.4-4.5) mmol/L ABG Ionized Calcium (4.5-5.3) mg/dL ABG Glucose (75-99) mg/dL ABG Lactic Acid (0.5-1.6) mmol/L Hemoglobin (13.0-17.5) gm/dL BUN (9-20) mg/dL Creatinine (0.66-1.25) mg/dL Glucose (74-99) mg/dL POC Glucose (mg/dL) 129 H 137 H (75-99) mg/dL Calcium (8.4-10.2) mg/dL Magnesium (1.6-2.3) mg/dL AST (17-59) U/L Alkaline Phosphatase (38-126) U/L Total Protein (6.3-8.2) g/dL Albumin (3.5-5.0) g/dL Arterial Blood Potassium (3.4-4.5) mmol/L Arterial Blood Glucose (75-99) mg/dL Crossmatch 10/31/18 10/31/18 10/31/18 Range/Units 16:46 17:58 18:54 WBC (3.8-10.6) k/uL RBC (4.30-5.90) m/uL Hgb (13.0-17.5) gm/dL Hct (39.0-53.0) % Plt Count (150-450) k/uL Neutrophils # (1.3-7.7) k/uL Lymphocytes # (1.0-4.8) k/uL PT (9.0-12.0) sec INR (<1.2) ABG pH (7.35-7.45) ABG pCO2 (35-45) mmHg ABG pO2 (83-108) mmHg ABG HCO3 (21-25) mmol/L ABG Total CO2 (19-24) mmol/L ABG O2 Saturation (94-97) % ABG Hematocrit (34.0-46.0) % ABG Potassium (3.4-4.5) mmol/L ABG Ionized Calcium (4.5-5.3) mg/dL ABG Glucose (75-99) mg/dL ABG Lactic Acid (0.5-1.6) mmol/L Hemoglobin (13.0-17.5) gm/dL BUN (9-20) mg/dL Creatinine (0.66-1.25) mg/dL Glucose (74-99) mg/dL POC Glucose (mg/dL) 156 H 168 H 153 H (75-99) mg/dL Calcium (8.4-10.2) mg/dL Magnesium (1.6-2.3) mg/dL AST (17-59) U/L Alkaline Phosphatase (38-126) U/L Total Protein (6.3-8.2) g/dL Albumin (3.5-5.0) g/dL Arterial Blood Potassium (3.4-4.5) mmol/L Arterial Blood Glucose (75-99) mg/dL Crossmatch 10/31/18 10/31/18 10/31/18 Range/Units 19:39 19:40 20:33 WBC (3.8-10.6) k/uL RBC 2.40 L (4.30-5.90) m/uL Hgb 7.7 L (13.0-17.5) gm/dL Hct 22.4 L (39.0-53.0) % Plt Count (150-450) k/uL Neutrophils # (1.3-7.7) k/uL Lymphocytes # 0.4 L (1.0-4.8) k/uL PT (9.0-12.0) sec INR (<1.2) ABG pH (7.35-7.45) ABG pCO2 (35-45) mmHg ABG pO2 (83-108) mmHg ABG HCO3 (21-25) mmol/L ABG Total CO2 25 H (19-24) mmol/L ABG O2 Saturation 97.6 H (94-97) % ABG Hematocrit (34.0-46.0) % ABG Potassium (3.4-4.5) mmol/L ABG Ionized Calcium (4.5-5.3) mg/dL ABG Glucose (75-99) mg/dL ABG Lactic Acid (0.5-1.6) mmol/L Hemoglobin (13.0-17.5) gm/dL BUN (9-20) mg/dL Creatinine (0.66-1.25) mg/dL Glucose (74-99) mg/dL POC Glucose (mg/dL) 159 H (75-99) mg/dL Calcium (8.4-10.2) mg/dL Magnesium (1.6-2.3) mg/dL AST (17-59) U/L Alkaline Phosphatase (38-126) U/L Total Protein (6.3-8.2) g/dL Albumin (3.5-5.0) g/dL Arterial Blood Potassium (3.4-4.5) mmol/L Arterial Blood Glucose (75-99) mg/dL Crossmatch 10/31/18 10/31/18 10/31/18 Range/Units 21:21 22:39 23:21 WBC (3.8-10.6) k/uL RBC (4.30-5.90) m/uL Hgb (13.0-17.5) gm/dL Hct (39.0-53.0) % Plt Count (150-450) k/uL Neutrophils # (1.3-7.7) k/uL Lymphocytes # (1.0-4.8) k/uL PT (9.0-12.0) sec INR (<1.2) ABG pH (7.35-7.45) ABG pCO2 (35-45) mmHg ABG pO2 (83-108) mmHg ABG HCO3 (21-25) mmol/L ABG Total CO2 (19-24) mmol/L ABG O2 Saturation (94-97) % ABG Hematocrit (34.0-46.0) % ABG Potassium (3.4-4.5) mmol/L ABG Ionized Calcium (4.5-5.3) mg/dL ABG Glucose (75-99) mg/dL ABG Lactic Acid (0.5-1.6) mmol/L Hemoglobin (13.0-17.5) gm/dL BUN (9-20) mg/dL Creatinine (0.66-1.25) mg/dL Glucose (74-99) mg/dL POC Glucose (mg/dL) 175 H 199 H 198 H (75-99) mg/dL Calcium (8.4-10.2) mg/dL Magnesium (1.6-2.3) mg/dL AST (17-59) U/L Alkaline Phosphatase (38-126) U/L Total Protein (6.3-8.2) g/dL Albumin (3.5-5.0) g/dL Arterial Blood Potassium (3.4-4.5) mmol/L Arterial Blood Glucose (75-99) mg/dL Crossmatch 11/01/18 11/01/18 11/01/18 Range/Units 00:04 01:11 02:26 WBC (3.8-10.6) k/uL RBC (4.30-5.90) m/uL Hgb (13.0-17.5) gm/dL Hct (39.0-53.0) % Plt Count (150-450) k/uL Neutrophils # (1.3-7.7) k/uL Lymphocytes # (1.0-4.8) k/uL PT (9.0-12.0) sec INR (<1.2) ABG pH (7.35-7.45) ABG pCO2 (35-45) mmHg ABG pO2 (83-108) mmHg ABG HCO3 (21-25) mmol/L ABG Total CO2 (19-24) mmol/L ABG O2 Saturation (94-97) % ABG Hematocrit (34.0-46.0) % ABG Potassium (3.4-4.5) mmol/L ABG Ionized Calcium (4.5-5.3) mg/dL ABG Glucose (75-99) mg/dL ABG Lactic Acid (0.5-1.6) mmol/L Hemoglobin (13.0-17.5) gm/dL BUN (9-20) mg/dL Creatinine (0.66-1.25) mg/dL Glucose (74-99) mg/dL POC Glucose (mg/dL) 197 H 183 H 165 H (75-99) mg/dL Calcium (8.4-10.2) mg/dL Magnesium (1.6-2.3) mg/dL AST (17-59) U/L Alkaline Phosphatase (38-126) U/L Total Protein (6.3-8.2) g/dL Albumin (3.5-5.0) g/dL Arterial Blood Potassium (3.4-4.5) mmol/L Arterial Blood Glucose (75-99) mg/dL Crossmatch 11/01/18 11/01/18 11/01/18 Range/Units 03:20 03:51 03:58 WBC 10.8 H (3.8-10.6) k/uL RBC 2.44 L (4.30-5.90) m/uL Hgb 7.3 L (13.0-17.5) gm/dL Hct 22.9 L (39.0-53.0) % Plt Count (150-450) k/uL Neutrophils # 8.9 H (1.3-7.7) k/uL Lymphocytes # 0.8 L (1.0-4.8) k/uL PT (9.0-12.0) sec INR (<1.2) ABG pH (7.35-7.45) ABG pCO2 (35-45) mmHg ABG pO2 (83-108) mmHg ABG HCO3 (21-25) mmol/L ABG Total CO2 (19-24) mmol/L ABG O2 Saturation (94-97) % ABG Hematocrit (34.0-46.0) % ABG Potassium (3.4-4.5) mmol/L ABG Ionized Calcium (4.5-5.3) mg/dL ABG Glucose (75-99) mg/dL ABG Lactic Acid (0.5-1.6) mmol/L Hemoglobin (13.0-17.5) gm/dL BUN (9-20) mg/dL Creatinine (0.66-1.25) mg/dL Glucose (74-99) mg/dL POC Glucose (mg/dL) 154 H 156 H (75-99) mg/dL Calcium (8.4-10.2) mg/dL Magnesium (1.6-2.3) mg/dL AST (17-59) U/L Alkaline Phosphatase (38-126) U/L Total Protein (6.3-8.2) g/dL Albumin (3.5-5.0) g/dL Arterial Blood Potassium (3.4-4.5) mmol/L Arterial Blood Glucose (75-99) mg/dL Crossmatch 11/01/18 11/01/18 11/01/18 Range/Units 03:58 04:01 04:44 WBC (3.8-10.6) k/uL RBC (4.30-5.90) m/uL Hgb (13.0-17.5) gm/dL Hct (39.0-53.0) % Plt Count (150-450) k/uL Neutrophils # (1.3-7.7) k/uL Lymphocytes # (1.0-4.8) k/uL PT (9.0-12.0) sec INR (<1.2) ABG pH (7.35-7.45) ABG pCO2 (35-45) mmHg ABG pO2 52 L* (83-108) mmHg ABG HCO3 (21-25) mmol/L ABG Total CO2 (19-24) mmol/L ABG O2 Saturation 85.6 L (94-97) % ABG Hematocrit (34.0-46.0) % ABG Potassium (3.4-4.5) mmol/L ABG Ionized Calcium (4.5-5.3) mg/dL ABG Glucose (75-99) mg/dL ABG Lactic Acid (0.5-1.6) mmol/L Hemoglobin (13.0-17.5) gm/dL BUN 45 H (9-20) mg/dL Creatinine 2.29 H (0.66-1.25) mg/dL Glucose 144 H (74-99) mg/dL POC Glucose (mg/dL) 170 H (75-99) mg/dL Calcium 8.2 L (8.4-10.2) mg/dL Magnesium 2.6 H (1.6-2.3) mg/dL AST 91 H (17-59) U/L Alkaline Phosphatase 25 L (38-126) U/L Total Protein 5.6 L (6.3-8.2) g/dL Albumin (3.5-5.0) g/dL Arterial Blood Potassium (3.4-4.5) mmol/L Arterial Blood Glucose (75-99) mg/dL Crossmatch 11/01/18 11/01/18 11/01/18 Range/Units 05:12 06:19 07:13 WBC (3.8-10.6) k/uL RBC (4.30-5.90) m/uL Hgb (13.0-17.5) gm/dL Hct (39.0-53.0) % Plt Count (150-450) k/uL Neutrophils # (1.3-7.7) k/uL Lymphocytes # (1.0-4.8) k/uL PT (9.0-12.0) sec INR (<1.2) ABG pH (7.35-7.45) ABG pCO2 (35-45) mmHg ABG pO2 (83-108) mmHg ABG HCO3 (21-25) mmol/L ABG Total CO2 (19-24) mmol/L ABG O2 Saturation (94-97) % ABG Hematocrit (34.0-46.0) % ABG Potassium (3.4-4.5) mmol/L ABG Ionized Calcium (4.5-5.3) mg/dL ABG Glucose (75-99) mg/dL ABG Lactic Acid (0.5-1.6) mmol/L Hemoglobin (13.0-17.5) gm/dL BUN (9-20) mg/dL Creatinine (0.66-1.25) mg/dL Glucose (74-99) mg/dL POC Glucose (mg/dL) 174 H 171 H 157 H (75-99) mg/dL Calcium (8.4-10.2) mg/dL Magnesium (1.6-2.3) mg/dL AST (17-59) U/L Alkaline Phosphatase (38-126) U/L Total Protein (6.3-8.2) g/dL Albumin (3.5-5.0) g/dL Arterial Blood Potassium (3.4-4.5) mmol/L Arterial Blood Glucose (75-99) mg/dL Crossmatch 11/01/18 11/01/18 Range/Units 08:11 08:57 WBC (3.8-10.6) k/uL RBC (4.30-5.90) m/uL Hgb (13.0-17.5) gm/dL Hct (39.0-53.0) % Plt Count (150-450) k/uL Neutrophils # (1.3-7.7) k/uL Lymphocytes # (1.0-4.8) k/uL PT (9.0-12.0) sec INR (<1.2) ABG pH (7.35-7.45) ABG pCO2 (35-45) mmHg ABG pO2 (83-108) mmHg ABG HCO3 (21-25) mmol/L ABG Total CO2 (19-24) mmol/L ABG O2 Saturation (94-97) % ABG Hematocrit (34.0-46.0) % ABG Potassium (3.4-4.5) mmol/L ABG Ionized Calcium (4.5-5.3) mg/dL ABG Glucose (75-99) mg/dL ABG Lactic Acid (0.5-1.6) mmol/L Hemoglobin (13.0-17.5) gm/dL BUN (9-20) mg/dL Creatinine (0.66-1.25) mg/dL Glucose (74-99) mg/dL POC Glucose (mg/dL) 153 H 142 H (75-99) mg/dL Calcium (8.4-10.2) mg/dL Magnesium (1.6-2.3) mg/dL AST (17-59) U/L Alkaline Phosphatase (38-126) U/L Total Protein (6.3-8.2) g/dL Albumin (3.5-5.0) g/dL Arterial Blood Potassium (3.4-4.5) mmol/L Arterial Blood Glucose (75-99) mg/dL Crossmatch Assessment and Plan Assessment: Assessment #1 CAD and status post LAD stenting #2 severe mitral regurgitation and status post repair #3 multiple comorbid conditions including hypertension and dyslipidemia Plan #1 continue the current medical regimen #2 follow-up with the patient
[2018-11-01 10:15] LABS: Glucose,Whole Blood 141 mg/dL (75-99)
[2018-11-01 11:31] LABS: Glucose,Whole Blood 149 mg/dL (75-99)
[2018-11-01] MEDS: ALBUMIN HUMAN 5% 250 ML in EMPTY BAG 1 BAG IVPB PRN ×2 (11:40→12:10)
[2018-11-01 13:15] LABS: Glucose,Whole Blood 159 mg/dL (75-99)
--- NOTE | 2018-11-01 13:43 | CDI ---
Documentation Clarification Form Date: 11/01/2018 1:11:09 PM From: Ute Gabriel RN CCDS Admit Date: 10/28/2018 10:47:00 AM Patient Name: Deep Anderson Visit Number: [id number] Discharge Date: ATTENTION: The Clinical Documentation Specialists (CDI) and [facility] Coding Staff appreciate your assistance in clarifying documentation. Please respond to the clarification below the line at the bottom and electronically sign. The CDI & [facility] Coding staff will review the response and follow-up if needed. Please note: Queries are made part of the Legal Health Record. If you have any questions, please contact the author of this message via ITS. Dr. Sergey Celis Per your Progress note 11/01/2018 Early this morning I was called because of low saturations and poor urine output. History/Risk Factors:73 year old male presents [facility] for elective Mitral Valve Repair. Medical History Sleep Apnea syndrome, not on home CPAP, FEV1 54% of predicted. Diastolic CHF, CAD, HTN, DM, OA Tobacco use: Pipe smoker quit 2007 Clinical Indicators: Per Progress Note 11/01/2018 This is purely an oxygenation issue. CXR pulmonary edema Vital signs: 133/66 81 16 99% on Bipap Pulse oximetry: 6L high flow oxygen resp 27, Spo2 94% - Non Rebreather 15L resp 25, Spo2 86% - Bipap fio2 100% rr 19 , Spo2 99% Lung/Breathing assessment: Coarse Rhonchi ABG/CBG: pH 7.35 pO2 52 pCO2 42 on Bipap Treatment: Lasix 60mg ivp High Flow oxygen, Non rebreather and Bipap In your professional opinion, can you please clarify if these findings signify one of the following conditions? * Acute Respiratory Failure (further specify (if known)): With hypercapnia? (pCO2 >50 and pH <7.35) With hypoxia? (pO2 <60 mm Hg or SpO2 <91% on room air) * Other Diagnosis, please specify * Unable to determine (Last Revision: June 2017) MTDD
[2018-11-01 14:00] LABS: Glucose,Whole Blood 147 mg/dL (75-99)
[2018-11-01] MEDS ORDERED: NOREPINEPHRINE 4 MG in SODIUM CHLORIDE 0.9% 250 ML IV SCH (14:00)
[2018-11-01 15:06] LABS: Glucose,Whole Blood 123 mg/dL (75-99)
[2018-11-01] MEDS: LACTATED RINGERS 1,000 ML IV SCH (15:07)
[2018-11-01] MEDS: INSULIN REGULAR 100 UNIT in SODIUM CHLORIDE 0.9% 100 ML IV SCH (15:08)
[2018-11-01] MEDS: NITROGLYCERIN-D5W PMX 50 MG in DEXTROSE/WATER 1 250ML.BAG IV SCH (15:10)
--- NOTE | 2018-11-01 15:32 | P.PN ---
Subjective Progress Note Date: 11/01/18 Principal diagnosis: This is a 73-year-old male was admitted to have mitral valve replacement and is being closely monitored. Patient is sitting up in the recliner talking to family on the phone in no acute distress. Patient has been up and walking around the room with no difficulties. Cardiology is following. Patient is to undergo surgery in the morning. Patient is currently on IV Aggrastat. Patient denies any shortness of breath, chest pain, or palpitations at this time. Patient denies any nausea or vomiting. Patient is afebrile. Patient states he is just waiting for his heart surgery tomorrow. Guarded prognosis. This is a 73-year-old male who is currently in the ICU on postop day #1 who underwent mitral valve repair with resection with Dr. Lozada. Patient was extubated and is currently on a BiPAP. Patient is tolerating well. Patient is being closely monitored. Family is at the bedside. Patient is currently still on an insulin drip at 7.5 units per hour and is being closely monitored. Patient still has a chest tube on the left side with a total of 210 mL output over the last 8 hours. Patient still has an indwelling Burrell catheter and monitoring output as well. Dr. Celis is following the patient closely. Objective - Vital Signs Vital signs: Vital Signs Temp 98.3 F 11/01/18 12:00 Pulse 70 11/01/18 14:30 Resp 16 11/01/18 14:30 BP 102/51 11/01/18 14:30 Pulse Ox 96 11/01/18 14:30 Intake & Output 10/31/18 11/01/18 11/01/18 18:59 06:59 18:59 Intake Total 1241 3562.810 8950.300 Output Total 1715 1345 388 Balance -474 68.330 1036.300 Weight 109.3 kg 109.3 kg Intake: IV 597 1197 1074 ACETAMINOPHEN IV (For NPO 100 100 ) 1,000 mg In Empty Bag 1 bag @ 400 mls/hr IVPB Q6HR JAIME Rx#:[id number] Albumin Human 5% 250 ml 500 In Empty Bag 1 bag @ 250 mls/hr IVPB Q1HR PRN Rx#: [id number] CO/CI 100 180 120 Lactated Ringers 1,000 ml 250 650 200 @ 20 mls/hr IV .Q24H JAIME Rx#:[id number] Potassium Chloride 10 meq 100 In Water For Injection 1 100ml.bag @ 100 mls/hr IVPB Q1H JAIME Rx#: [id number] ceFAZolin 2 gm In Sodium 150 200 Chloride 0.9% 50 ml @ 100 mls/hr IVPB Q8H JAIME Rx#: [id number] pressure bag 45 117 54 Intake, IV Titration 216.330 200.300 Amount Clevidipine Butyrate 25 13.067 mg In Empty Bag 1 bag @ 1 MG/HR 2 mls/hr IV .Q24H JAIME Rx#:[id number] Insulin Regular 100 unit 53.749 47.251 In Sodium Chloride 0.9% 100 ml @ Per Protocol IV .Q0M JAIME Rx#:[id number] Milrinone-D5w Pmx 20 mg 97.776 111.599 In Dextrose/Water 1 100ml .bag @ Per Protocol IV . Q0M JAIME Rx#:[id number] Nitroglycerin-D5w Pmx 50 41.45 mg In Dextrose/Water 1 250ml.bag @ 10 MCG/MIN 3 mls/hr IV .Q24H JAIME Rx#: [id number] Norepinephrine 4 mg In 51.738 Sodium Chloride 0.9% 250 ml @ 0.02 MCG/KG/MIN 7. 391 mls/hr IV .Q24H JAIME Rx#:[id number] Oral 150 Blood Product 644 Ffp 24 Pher Acda Unit 200 [id number] Ffp 24 Pher Acda Unit 208 [id number] Platelet Pheresis Acda2 236 Unit [id number] Output: Chest Tube Drainage 560 750 210 Chest Tube Left Pleural/ 560 750 210 Mediastinal Urine 655 595 178 Estimated Blood Loss 500 Other: Voiding Method Indwelling Catheter Indwelling Catheter Indwelling Catheter ABP, PAP, CO, CI - Last Documented Arterial Blood Pressure 126/45 Pulmonary Artery Pressure 51/22 Cardiac Output 7.6 Cardiac Index 3.7 - Exam Gen: This is a 73-year-old male sitting up in bed in no acute distress. Vital signs are stable. Blood pressure is 102/48, pulse is 82, respirations are 24, temp is 98F, oxygen saturation is 95% on BiPAP. HEENT: Head is atraumatic, normocephalic. Pupils equal, round. Sclerae is anict mike. Bipap mask noted NECK: Supple. No JVD. No lymphadenopathy. No thyromegaly. LUNGS: Lung sounds diminished at the bases with a few scattered rhonchi noted. No intercostal retractions. HEART: S1 and S2 are muffled ABDOMEN: Soft. Bowel sounds are present. No masses. No tenderness. EXTREMITIES: No pedal edema. No calf tenderness. NEUROLOGICAL: Patient is lethargic but awake, alert and oriented x3. Cranial nerves 2 through 12 are grossly intact. - Labs CBC & Chem 7: 11/01/18 03:58 11/01/18 03:58 Labs: Abnormal Lab Results - Last 24 Hours (Table) 10/30/18 10/31/18 10/31/18 Range/Units 05:53 15:12 16:04 WBC (3.8-10.6) k/uL RBC (4.30-5.90) m/uL Hgb (13.0-17.5) gm/dL Hct (39.0-53.0) % Plt Count (150-450) k/uL Neutrophils # (1.3-7.7) k/uL Lymphocytes # (1.0-4.8) k/uL ABG pO2 (83-108) mmHg ABG Total CO2 (19-24) mmol/L ABG O2 Saturation (94-97) % BUN (9-20) mg/dL Creatinine (0.66-1.25) mg/dL Glucose (74-99) mg/dL POC Glucose (mg/dL) 129 H 137 H (75-99) mg/dL Calcium (8.4-10.2) mg/dL Magnesium (1.6-2.3) mg/dL AST (17-59) U/L Alkaline Phosphatase (38-126) U/L Total Protein (6.3-8.2) g/dL Crossmatch See Detail 10/31/18 10/31/18 10/31/18 Range/Units 16:42 16:46 17:58 WBC (3.8-10.6) k/uL RBC 2.60 L (4.30-5.90) m/uL Hgb 7.5 L D (13.0-17.5) gm/dL Hct 24.2 L (39.0-53.0) % Plt Count 124 L (150-450) k/uL Neutrophils # (1.3-7.7) k/uL Lymphocytes # 0.3 L (1.0-4.8) k/uL ABG pO2 (83-108) mmHg ABG Total CO2 (19-24) mmol/L ABG O2 Saturation (94-97) % BUN (9-20) mg/dL Creatinine (0.66-1.25) mg/dL Glucose (74-99) mg/dL POC Glucose (mg/dL) 156 H 168 H (75-99) mg/dL Calcium (8.4-10.2) mg/dL Magnesium (1.6-2.3) mg/dL AST (17-59) U/L Alkaline Phosphatase (38-126) U/L Total Protein (6.3-8.2) g/dL Crossmatch 10/31/18 10/31/18 10/31/18 Range/Units 18:54 19:39 19:40 WBC (3.8-10.6) k/uL RBC 2.40 L (4.30-5.90) m/uL Hgb 7.7 L (13.0-17.5) gm/dL Hct 22.4 L (39.0-53.0) % Plt Count (150-450) k/uL Neutrophils # (1.3-7.7) k/uL Lymphocytes # 0.4 L (1.0-4.8) k/uL ABG pO2 (83-108) mmHg ABG Total CO2 (19-24) mmol/L ABG O2 Saturation (94-97) % BUN (9-20) mg/dL Creatinine (0.66-1.25) mg/dL Glucose (74-99) mg/dL POC Glucose (mg/dL) 153 H 159 H (75-99) mg/dL Calcium (8.4-10.2) mg/dL Magnesium (1.6-2.3) mg/dL AST (17-59) U/L Alkaline Phosphatase (38-126) U/L Total Protein (6.3-8.2) g/dL Crossmatch 10/31/18 10/31/18 10/31/18 Range/Units 20:33 21:21 22:39 WBC (3.8-10.6) k/uL RBC (4.30-5.90) m/uL Hgb (13.0-17.5) gm/dL Hct (39.0-53.0) % Plt Count (150-450) k/uL Neutrophils # (1.3-7.7) k/uL Lymphocytes # (1.0-4.8) k/uL ABG pO2 (83-108) mmHg ABG Total CO2 25 H (19-24) mmol/L ABG O2 Saturation 97.6 H (94-97) % BUN (9-20) mg/dL Creatinine (0.66-1.25) mg/dL Glucose (74-99) mg/dL POC Glucose (mg/dL) 175 H 199 H (75-99) mg/dL Calcium (8.4-10.2) mg/dL Magnesium (1.6-2.3) mg/dL AST (17-59) U/L Alkaline Phosphatase (38-126) U/L Total Protein (6.3-8.2) g/dL Crossmatch 10/31/18 11/01/18 11/01/18 Range/Units 23:21 00:04 01:11 WBC (3.8-10.6) k/uL RBC (4.30-5.90) m/uL Hgb (13.0-17.5) gm/dL Hct (39.0-53.0) % Plt Count (150-450) k/uL Neutrophils # (1.3-7.7) k/uL Lymphocytes # (1.0-4.8) k/uL ABG pO2 (83-108) mmHg ABG Total CO2 (19-24) mmol/L ABG O2 Saturation (94-97) % BUN (9-20) mg/dL Creatinine (0.66-1.25) mg/dL Glucose (74-99) mg/dL POC Glucose (mg/dL) 198 H 197 H 183 H (75-99) mg/dL Calcium (8.4-10.2) mg/dL Magnesium (1.6-2.3) mg/dL AST (17-59) U/L Alkaline Phosphatase (38-126) U/L Total Protein (6.3-8.2) g/dL Crossmatch 11/01/18 11/01/18 11/01/18 Range/Units 02:26 03:20 03:51 WBC (3.8-10.6) k/uL RBC (4.30-5.90) m/uL Hgb (13.0-17.5) gm/dL Hct (39.0-53.0) % Plt Count (150-450) k/uL Neutrophils # (1.3-7.7) k/uL Lymphocytes # (1.0-4.8) k/uL ABG pO2 (83-108) mmHg ABG Total CO2 (19-24) mmol/L ABG O2 Saturation (94-97) % BUN (9-20) mg/dL Creatinine (0.66-1.25) mg/dL Glucose (74-99) mg/dL POC Glucose (mg/dL) 165 H 154 H 156 H (75-99) mg/dL Calcium (8.4-10.2) mg/dL Magnesium (1.6-2.3) mg/dL AST (17-59) U/L Alkaline Phosphatase (38-126) U/L Total Protein (6.3-8.2) g/dL Crossmatch 11/01/18 11/01/18 11/01/18 Range/Units 03:58 03:58 04:01 WBC 10.8 H (3.8-10.6) k/uL RBC 2.44 L (4.30-5.90) m/uL Hgb 7.3 L (13.0-17.5) gm/dL Hct 22.9 L (39.0-53.0) % Plt Count (150-450) k/uL Neutrophils # 8.9 H (1.3-7.7) k/uL Lymphocytes # 0.8 L (1.0-4.8) k/uL ABG pO2 52 L* (83-108) mmHg ABG Total CO2 (19-24) mmol/L ABG O2 Saturation 85.6 L (94-97) % BUN 45 H (9-20) mg/dL Creatinine 2.29 H (0.66-1.25) mg/dL Glucose 144 H (74-99) mg/dL POC Glucose (mg/dL) (75-99) mg/dL Calcium 8.2 L (8.4-10.2) mg/dL Magnesium 2.6 H (1.6-2.3) mg/dL AST 91 H (17-59) U/L Alkaline Phosphatase 25 L (38-126) U/L Total Protein 5.6 L (6.3-8.2) g/dL Crossmatch 11/01/18 11/01/18 11/01/18 Range/Units 04:44 05:12 06:19 WBC (3.8-10.6) k/uL RBC (4.30-5.90) m/uL Hgb (13.0-17.5) gm/dL Hct (39.0-53.0) % Plt Count (150-450) k/uL Neutrophils # (1.3-7.7) k/uL Lymphocytes # (1.0-4.8) k/uL ABG pO2 (83-108) mmHg ABG Total CO2 (19-24) mmol/L ABG O2 Saturation (94-97) % BUN (9-20) mg/dL Creatinine (0.66-1.25) mg/dL Glucose (74-99) mg/dL POC Glucose (mg/dL) 170 H 174 H 171 H (75-99) mg/dL Calcium (8.4-10.2) mg/dL Magnesium (1.6-2.3) mg/dL AST (17-59) U/L Alkaline Phosphatase (38-126) U/L Total Protein (6.3-8.2) g/dL Crossmatch 11/01/18 11/01/18 11/01/18 Range/Units 07:13 08:11 08:57 WBC (3.8-10.6) k/uL RBC (4.30-5.90) m/uL Hgb (13.0-17.5) gm/dL Hct (39.0-53.0) % Plt Count (150-450) k/uL Neutrophils # (1.3-7.7) k/uL Lymphocytes # (1.0-4.8) k/uL ABG pO2 (83-108) mmHg ABG Total CO2 (19-24) mmol/L ABG O2 Saturation (94-97) % BUN (9-20) mg/dL Creatinine (0.66-1.25) mg/dL Glucose (74-99) mg/dL POC Glucose (mg/dL) 157 H 153 H 142 H (75-99) mg/dL Calcium (8.4-10.2) mg/dL Magnesium (1.6-2.3) mg/dL AST (17-59) U/L Alkaline Phosphatase (38-126) U/L Total Protein (6.3-8.2) g/dL Crossmatch 11/01/18 11/01/18 11/01/18 Range/Units 10:12 11:28 13:12 WBC (3.8-10.6) k/uL RBC (4.30-5.90) m/uL Hgb (13.0-17.5) gm/dL Hct (39.0-53.0) % Plt Count (150-450) k/uL Neutrophils # (1.3-7.7) k/uL Lymphocytes # (1.0-4.8) k/uL ABG pO2 (83-108) mmHg ABG Total CO2 (19-24) mmol/L ABG O2 Saturation (94-97) % BUN (9-20) mg/dL Creatinine (0.66-1.25) mg/dL Glucose (74-99) mg/dL POC Glucose (mg/dL) 141 H 149 H 159 H (75-99) mg/dL Calcium (8.4-10.2) mg/dL Magnesium (1.6-2.3) mg/dL AST (17-59) U/L Alkaline Phosphatase (38-126) U/L Total Protein (6.3-8.2) g/dL Crossmatch 11/01/18 Range/Units 13:58 WBC (3.8-10.6) k/uL RBC (4.30-5.90) m/uL Hgb (13.0-17.5) gm/dL Hct (39.0-53.0) % Plt Count (150-450) k/uL Neutrophils # (1.3-7.7) k/uL Lymphocytes # (1.0-4.8) k/uL ABG pO2 (83-108) mmHg ABG Total CO2 (19-24) mmol/L ABG O2 Saturation (94-97) % BUN (9-20) mg/dL Creatinine (0.66-1.25) mg/dL Glucose (74-99) mg/dL POC Glucose (mg/dL) 147 H (75-99) mg/dL Calcium (8.4-10.2) mg/dL Magnesium (1.6-2.3) mg/dL AST (17-59) U/L Alkaline Phosphatase (38-126) U/L Total Protein (6.3-8.2) g/dL Crossmatch Assessment and Plan Assessment: Severe mitral regurgitation: Patient underwent mitral valve replacement yesterday. Carotid disease with recent myocardial infarction and stent placement Severe pulmonary hypertension Chronic diastolic dysfunction without any acute exacerbation. Chronic kidney disease stage III creatinine is baseline was 2.11. Current creatinine is 1.78. We'll continue to monitor closely Hyperlipidemia Gastroesophageal reflux disease Diabetes mellitus type 2 with diabetic nephropathy: Patient will be resumed on home medications. Will titrate insulin and diabetic medications depending on blood sugar readings. Patient is currently on insulin drip at 7.5 mL/hour DVT prophylaxis: Patient is on heparin subq every 8 hours Recommendations and discussion Recommend continue current medication management and symptomatic treatment. Patient is currently still in the ICU. cardiothoracic surgery is following closely. Guarded prognosis. Further recommendations to follow.
[2018-11-01 16:03] LABS: Glucose,Whole Blood 123 mg/dL (75-99)
[2018-11-01] MEDS: FUROSEMIDE 100 MG in SODIUM CHLORIDE 0.9% 90 ML IV SCH ×2 (16:49→20:48)
[2018-11-01 17:14] LABS: Glucose,Whole Blood 124 mg/dL (75-99)
[2018-11-01 17:58] LABS: Glucose,Whole Blood 123 mg/dL (75-99)
--- NOTE | 2018-11-01 18:06 | PN ---
PROGRESS NOTE DATE OF SERVICE: 11/01/2018 This 73-year-old gentleman who was admitted with severe mild regurgitation underwent mitral valve repair. The patient extubated. Patient is on BiPAP at this time. Patient had some hypotension this morning. Patient is on Levophed. The most recent chest x- ray which was reviewed by me showed cardiomegaly and some atelectasis. The patient is on insulin drip also. Sugars again are between 149 and 147. PAST MEDICAL HISTORY: Reviewed. REVIEW OF SYSTEMS: CARDIOVASCULAR: No angina or palpitations. RESPIRATORY: As mentioned earlier. GASTROINTESTINAL: No nausea or vomiting. no dysuria. CURRENT MEDICATIONS: 1. Tylenol 1000 mg p.r.n. 2. Albumin. 3. DuoNeb q.i.d. and p.r.n. 4. Amiodarone drip. 5. Aspirin 320 mg p.o. daily. 6. Lipitor 40 mg p.o. daily. 7. Cepacol daily. 8. Dulcolax 10 mg p.r.n. 9. Calcium gluconate. 10.Plavix 75 mg p.o. daily. 11.Iron sulfate. 12.Heparin. 13.Lactated Ringer's. 14.Milk of Magnesia. 15.Lopressor. 16.Replacement protocol. PHYSICAL EXAM: Patient is alert, oriented x2. Pulse 70, blood pressure 102/51, respirations 16, temperature normal, pulse ox 96% on BiPAP 50% FiO2. HEENT: Conjunctivae normal. NECK: No JVD. CARDIOVASCULAR: S1, S2 muffled. RESPIRATORY: Breath sounds diminished in the bases. Bilateral scattered rhonchi and expiratory wheezing. ABDOMEN: Soft. Nontender. NERVOUS SYSTEM: No focal deficits. LAB STUDIES: WBC 10.8, hemoglobin 7.3. ABGs pH of 7.35, creatinine is 2.29. Hepatitis B is negative. ASSESSMENT: 1. Severe mitral regurgitation, status post mitral valve repair. 2. History of recent coronary artery disease/stent. 3. Severe pulmonary hypertension. 4. History of chronic diastolic dysfunction congestive heart failure. 5. Chronic kidney stage 3. 6. Hyperlipidemia. 7. History of gastroesophageal reflux disease. 8. Diabetes mellitus type 2. 9. Atelectasis. RECOMMENDATIONS AND DISCUSSION: In this 73-year-old gentleman who presented with multiple medical history, we will monitor the patient closely, continue the current medications, management and symptomatic treatment. Otherwise, I recommend continue with insulin drip and monitor blood sugars closely. Once the patient is p.o., three shot protocol may be the assumed. Otherwise we will recommend incentive spirometry. The rest of the medications, we will monitor fluid and electrolytes balance closely. Patient received Lasix. Closely follow with Cardiology, Cardiothoracic surgery and Pulmonology. Further recommendations to follow. MMODL / IJN: [id number] /
[2018-11-01 18:56] LABS: Glucose,Whole Blood 121 mg/dL (75-99)
[2018-11-01 20:16] LABS: Glucose,Whole Blood 105 mg/dL (75-99)
[2018-11-01] MEDS: SENNOSIDES-DOCUSATE SODIUM 1 EACH TAB PO SCH (20:29)
[2018-11-01 21:20] LABS: Glucose,Whole Blood 122 mg/dL (75-99)
[2018-11-01 22:07] LABS: Glucose,Whole Blood 126 mg/dL (75-99)
[2018-11-01 23:05] LABS: Glucose,Whole Blood 151 mg/dL (75-99)
[2018-11-01] MEDS: IPRATROPIUM-ALBUTEROL 3 ML NEB INHALATION PRN (23:22)
[2018-11-02 00:05] LABS: Glucose,Whole Blood 144 mg/dL (75-99)
[2018-11-02] MEDS: ACETAMINOPHEN TAB 500 MG TAB PO PRN (00:34)
[2018-11-02] MEDS: HEPARIN SODIUM,PORCINE 5,000 UNIT/ML 1 ML VIAL SQ SCH ×4 (00:34→23:18)
[2018-11-02] MEDS: FUROSEMIDE 100 MG in SODIUM CHLORIDE 0.9% 90 ML IV SCH ×5 (02:02→22:10)
[2018-11-02 02:14] LABS: Glucose,Whole Blood 137 mg/dL (75-99)
[2018-11-02] MEDS: IPRATROPIUM-ALBUTEROL 3 ML NEB INHALATION PRN ×2 (03:16→23:21)
--- NOTE | 2018-11-02 03:24 | XR ---
EXAM: XR Chest, 1 View CLINICAL HISTORY: ITS.REASON XR Reason: Post Operative Cardiac Surgery TECHNIQUE: Frontal view of the chest. COMPARISON: 11/01/18 IMPRESSION: Cardiomegaly. Bilateral pleural effusions. Bibasilar atelectasis. Unchanged lines and tubes.
[2018-11-02 03:27] LABS: Glucose,Whole Blood 111 mg/dL (75-99)
[2018-11-02 03:31] LABS: Ionized Calcium 4.5 mg/dL (4.5-5.3)
[2018-11-02 03:38] LABS: Albumin 3.6 g/dL (3.5-5.0); Calcium 8.1 mg/dL (8.4-10.2); Potassium 4.8 mmol/L (3.5-5.1); Total Bilirubin 0.7 mg/dL (0.2-1.3); Total Protein 5.6 g/dL (6.3-8.2)
[2018-11-02 03:47] LABS: Basophils % (A) 0 %; Eosinophils # (A) 0.1 k/uL (0-0.7); Eosinophils % (A) 1 %; Lymphocytes # (A) 0.7 k/uL (1.0-4.8); Lymphocytes % (A) 8 %; MCHC 32.9 g/dL (31.0-37.0); MCV 94.2 fL (80.0-100.0); Mean Platelet Volume 9.2; Monocytes # (A) 0.6 k/uL (0-1.0); Monocytes % (A) 7 %; Neutrophils # (A) 6.7 k/uL (1.3-7.7); Neutrophils % (A) 82 %; Platelet Count 144 k/uL (150-450); RBC 1.99 m/uL (4.30-5.90); RDW 15.7 % (11.5-15.5); WBC 8.1 k/uL (3.8-10.6)
[2018-11-02 03:50] LABS: HCT 18.8 % (39.0-53.0); HGB 6.2 gm/dL (13.0-17.5)
[2018-11-02 04:07] LABS: Glucose,Whole Blood 101 mg/dL (75-99)
[2018-11-02 06:04] LABS: Glucose,Whole Blood 139 mg/dL (75-99)
[2018-11-02 07:11] LABS: Glucose,Whole Blood 151 mg/dL (75-99)
--- NOTE | 2018-11-02 07:14 | CDI ---
Documentation Clarification Form Date: 11/01/2018 1:11:09 PM From: Ute Gabriel RN CCDS Admit Date: 10/28/2018 10:47:00 AM Patient Name: Deep Anderson Visit Number: [id number] Discharge Date: ATTENTION: The Clinical Documentation Specialists (CDI) and [facility] Coding Staff appreciate your assistance in clarifying documentation. Please respond to the clarification below the line at the bottom and electronically sign. The CDI & [facility] Coding staff will review the response and follow-up if needed. Please note: Queries are made part of the Legal Health Record. If you have any questions, please contact the author of this message via ITS. Dr. Sergey Celis Per your Progress note 11/01/2018 Early this morning I was called because of low saturations and poor urine output. History/Risk Factors:73 year old male presents [facility] for elective Mitral Valve Repair. Medical History Sleep Apnea syndrome, not on home CPAP, FEV1 54% of predicted. Diastolic CHF, CAD, HTN, DM, OA Tobacco use: Pipe smoker quit 2007 Clinical Indicators: Per Progress Note 11/01/2018 This is purely an oxygenation issue. CXR pulmonary edema Vital signs: 133/66 81 16 99% on Bipap Pulse oximetry: 6L high flow oxygen resp 27, Spo2 94% - Non Rebreather 15L resp 25, Spo2 86% - Bipap fio2 100% rr 19 , Spo2 99% Lung/Breathing assessment: Coarse Rhonchi ABG/CBG: pH 7.35 pO2 52 pCO2 42 on Bipap Treatment: Lasix 60mg ivp High Flow oxygen, Non rebreather and Bipap In your professional opinion, can you please clarify if these findings signify one of the following conditions? * Acute Respiratory Failure (further specify (if known)): With hypercapnia? (pCO2 >50 and pH <7.35) With hypoxia? (pO2 <60 mm Hg or SpO2 <91% on room air) * Other Diagnosis, please specify * Unable to determine (Last Revision: June 2017) MTDD
--- NOTE | 2018-11-02 07:40 | PN ---
PROGRESS NOTE This is a pulmonary/critical care progress note. DATE OF SERVICE: November 02, 2018 This is a 73-year-old male who is postop day #2, status post mitral valve repair for severe mitral regurgitation. He also has a history of CAD and had a recent stent placement to the LAD on September 24. In addition, he has a history of chronic diastolic heart failure, diabetes mellitus, type 2 with diabetic neuropathy, obesity, sleep apnea syndrome, pulmonary hypertension, obstructive lung disease, hypertension, and hyperlipidemia. He also has a history of DJD. Anyway, the patient is doing fair. He is currently on BiPAP at 12 and 5 and 35%. He is getting lactated Ringer's at 40 mL an hour. He is getting insulin at 1 unit an hour and Lasix drip of 20 mg an hour. His urine output has been about 60 mL/hour. This morning, chest x-ray does show fluid overload with cardiomegaly. It is basically unchanged in my opinion. The patient does complain of shortness of breath. To me, he looks about the same today as he did yesterday. His major complaint is that of shortness of breath. PHYSICAL EXAMINATION: VITAL SIGNS: His vital signs are reviewed. Temperature is 98.4, heart rate 73, respiratory rate mid 20s, blood pressure 118/59, mean 78, saturations are 97% on the BiPAP. Appears in mildly dyspneic. No acute distress. No audible wheezing. HEENT: Examination is grossly unremarkable. Mucous membranes are moist. He has got the BiPAP mask in place. NECK: Supple. Full range of motion. No adenopathy, thyromegaly or neck vein distention. CARDIOVASCULAR: Examination reveals distant heart sounds. Heart rate mid 70s. S1, S2 normal. No distinct murmur noted. LUNGS: Reveal coarse rhonchi throughout. Bibasilar crackles. Breath sounds are diminished. ABDOMEN: Soft. Bowel sounds are heard. EXTREMITIES: Are intact. Minimal edema. SKIN: Without rash. NEUROLOGIC: Examination is brief but nonfocal. LABORATORY DATA: Current laboratory data includes a white count of 8.1, hemoglobin 6.2, hematocrit 18.8, and platelet count 144,000. Sodium 140, potassium 4.8, chloride 108, CO2 is 25. Anion gap is 7. BUN and creatinine were 55 and 3.28. The rest of his labs are reviewed. X-RAY: Chest x-ray shows fluid overload and cardiomegaly. MICROBIOLOGIC STUDIES: Microbiologic studies are negative. MEDICATIONS: Medications are reviewed. ASSESSMENT: 1. Postoperative day #2, status post mitral valve repair for severe mitral regurgitation. 2. Ongoing respiratory difficulty because of fluid overload with worsening renal function and acute on chronic renal failure. 3. Coronary artery disease with recent stent placement to the LAD on September 24. 4. Chronic diastolic heart failure. 5. Diabetes mellitus, type 2. 6. Diabetic neuropathy. 7. Obesity. 8. Sleep apnea syndrome. 9. Pulmonary hypertension. 10.Obstructive lung disease. 11.Hypertension. 12.Hyperlipidemia. 13.Degenerative joint disease. PLAN: Overall, the patient remains about the same. He is currently on BiPAP at 12 and 5 and 35%. He is getting LR at 40 mL an hours, which I asked the nurses to turn down; insulin at 1 unit/hour and Lasix 20 mg an hour. Urine output has been 50 to 60 mL an hour. Chest x-ray shows cardiomegaly with fluid overload. Renal function is worsening. The patient may benefit from slow continuous ultrafiltration to remove fluid. Nephrology should be consulted if not already consulted. We will continue to follow closely. The nurses know to get a stat blood gas should his situation deteriorate. Currently, he is stable on BiPAP. Will continue to follow. MMODL / IJN: [id number] /
[2018-11-02] MEDS: IPRATROPIUM-ALBUTEROL 3 ML NEB INHALATION SCH ×4 (07:41→19:45)
[2018-11-02 08:22] LABS: Glucose,Whole Blood 124 mg/dL (75-99)
[2018-11-02] MEDS: INSULIN REGULAR 100 UNIT in SODIUM CHLORIDE 0.9% 100 ML IV SCH (08:30)
--- NOTE | 2018-11-02 08:31 | P.PN ---
Subjective Progress Note Date: 11/02/18 Principal diagnosis: Severe mitral regurgitation This is a 73-year-old gentleman with CAD and prior stenting of the LAD, severe mitral regurgitation, underwent mitral valve repair the day before yesterday. On follow-up with the patient today, November 022018, overall he is not doing well. All history he did not make urine throughout the night. He was given Lasix IV without any urine output subsequently he was started on Lasix drip. Beside that the hemoglobin is around 6 and he is in process of receiving one unit of packed RBC. Hemodynamically overall he seems to be stable. The chest x-ray showed findings consistent with CHF as well as bilateral pleural effusion. Objective - Vital Signs Vital signs: Vital Signs Temp 37.9 F L 11/02/18 08:00 Pulse 73 11/02/18 08:00 Resp 29 H 11/02/18 08:00 BP 120/50 11/02/18 08:00 Pulse Ox 94 L 11/02/18 08:00 Intake & Output 11/01/18 11/02/18 11/02/18 18:59 06:59 18:59 Intake Total 0215.638 5492.274 72.393 Output Total 619 880 225 Balance 1061.300 262.274 -152.607 Weight 109.3 kg 105.1 kg Intake: IV 1330 789 58 Albumin Human 5% 250 ml 500 In Empty Bag 1 bag @ 250 mls/hr IVPB Q1HR PRN Rx#: [id number] CO/CI 140 90 Furosemide 100 mg In 40 220 Sodium Chloride 0.9% 90 ml @ 20 MG/HR 20 mls/hr IV .Q5H JAIME Rx#:[id number] Lactated Ringers 1,000 ml 560 380 40 @ 20 mls/hr IV .Q24H JAIME Rx#:[id number] pressure bag 90 99 18 Intake, IV Titration 200.300 353.274 14.393 Amount Furosemide 100 mg In 266.667 Sodium Chloride 0.9% 90 ml @ 20 MG/HR 20 mls/hr IV .Q5H JAIME Rx#:[id number] Insulin Regular 100 unit 47.251 86.607 14.393 In Sodium Chloride 0.9% 100 ml @ Per Protocol IV .Q0M JAIME Rx#:[id number] Milrinone-D5w Pmx 20 mg 111.599 In Dextrose/Water 1 100ml .bag @ Per Protocol IV . Q0M JAIME Rx#:[id number] Nitroglycerin-D5w Pmx 50 41.45 mg In Dextrose/Water 1 250ml.bag @ 10 MCG/MIN 3 mls/hr IV .Q24H JAIME Rx#: [id number] Oral 150 Output: Chest Tube Drainage 285 130 25 Chest Tube Left Pleural/ 285 130 25 Mediastinal Urine 334 750 200 Other: Voiding Method Indwelling Catheter Indwelling Catheter ABP, PAP, CO, CI - Last Documented Arterial Blood Pressure 151/50 Pulmonary Artery Pressure 59/25 Cardiac Output 5.3 Cardiac Index 2.6 - Labs CBC & Chem 7: 11/02/18 03:31 11/02/18 03:13 Labs: Abnormal Lab Results - Last 24 Hours (Table) 11/01/18 11/01/18 11/01/18 Range/Units 08:57 10:12 11:28 RBC (4.30-5.90) m/uL Hgb (13.0-17.5) gm/dL Hct (39.0-53.0) % RDW (11.5-15.5) % Plt Count (150-450) k/uL Lymphocytes # (1.0-4.8) k/uL Chloride (98-107) mmol/L BUN (9-20) mg/dL Creatinine (0.66-1.25) mg/dL Glucose (74-99) mg/dL POC Glucose (mg/dL) 142 H 141 H 149 H (75-99) mg/dL Calcium (8.4-10.2) mg/dL AST (17-59) U/L ALT (21-72) U/L Alkaline Phosphatase (38-126) U/L Total Protein (6.3-8.2) g/dL 11/01/18 11/01/18 11/01/18 Range/Units 13:12 13:58 15:02 RBC (4.30-5.90) m/uL Hgb (13.0-17.5) gm/dL Hct (39.0-53.0) % RDW (11.5-15.5) % Plt Count (150-450) k/uL Lymphocytes # (1.0-4.8) k/uL Chloride (98-107) mmol/L BUN (9-20) mg/dL Creatinine (0.66-1.25) mg/dL Glucose (74-99) mg/dL POC Glucose (mg/dL) 159 H 147 H 123 H (75-99) mg/dL Calcium (8.4-10.2) mg/dL AST (17-59) U/L ALT (21-72) U/L Alkaline Phosphatase (38-126) U/L Total Protein (6.3-8.2) g/dL 11/01/18 11/01/18 11/01/18 Range/Units 15:59 17:10 17:55 RBC (4.30-5.90) m/uL Hgb (13.0-17.5) gm/dL Hct (39.0-53.0) % RDW (11.5-15.5) % Plt Count (150-450) k/uL Lymphocytes # (1.0-4.8) k/uL Chloride (98-107) mmol/L BUN (9-20) mg/dL Creatinine (0.66-1.25) mg/dL Glucose (74-99) mg/dL POC Glucose (mg/dL) 123 H 124 H 123 H (75-99) mg/dL Calcium (8.4-10.2) mg/dL AST (17-59) U/L ALT (21-72) U/L Alkaline Phosphatase (38-126) U/L Total Protein (6.3-8.2) g/dL 11/01/18 11/01/18 11/01/18 Range/Units 18:54 20:12 21:17 RBC (4.30-5.90) m/uL Hgb (13.0-17.5) gm/dL Hct (39.0-53.0) % RDW (11.5-15.5) % Plt Count (150-450) k/uL Lymphocytes # (1.0-4.8) k/uL Chloride (98-107) mmol/L BUN (9-20) mg/dL Creatinine (0.66-1.25) mg/dL Glucose (74-99) mg/dL POC Glucose (mg/dL) 121 H 105 H 122 H (75-99) mg/dL Calcium (8.4-10.2) mg/dL AST (17-59) U/L ALT (21-72) U/L Alkaline Phosphatase (38-126) U/L Total Protein (6.3-8.2) g/dL 11/01/18 11/01/18 11/02/18 Range/Units 22:03 23:01 00:01 RBC (4.30-5.90) m/uL Hgb (13.0-17.5) gm/dL Hct (39.0-53.0) % RDW (11.5-15.5) % Plt Count (150-450) k/uL Lymphocytes # (1.0-4.8) k/uL Chloride (98-107) mmol/L BUN (9-20) mg/dL Creatinine (0.66-1.25) mg/dL Glucose (74-99) mg/dL POC Glucose (mg/dL) 126 H 151 H 144 H (75-99) mg/dL Calcium (8.4-10.2) mg/dL AST (17-59) U/L ALT (21-72) U/L Alkaline Phosphatase (38-126) U/L Total Protein (6.3-8.2) g/dL 11/02/18 11/02/18 11/02/18 Range/Units 02:05 03:13 03:13 RBC (4.30-5.90) m/uL Hgb (13.0-17.5) gm/dL Hct (39.0-53.0) % RDW (11.5-15.5) % Plt Count (150-450) k/uL Lymphocytes # (1.0-4.8) k/uL Chloride 108 H (98-107) mmol/L BUN 55 H (9-20) mg/dL Creatinine 3.28 H (0.66-1.25) mg/dL Glucose 103 H (74-99) mg/dL POC Glucose (mg/dL) 137 H 111 H (75-99) mg/dL Calcium 8.1 L (8.4-10.2) mg/dL AST 630 H (17-59) U/L ALT 258 H (21-72) U/L Alkaline Phosphatase 24 L (38-126) U/L Total Protein 5.6 L (6.3-8.2) g/dL 11/02/18 11/02/18 11/02/18 Range/Units 03:31 03:52 06:01 RBC 1.99 L (4.30-5.90) m/uL Hgb 6.2 L* (13.0-17.5) gm/dL Hct 18.8 L* (39.0-53.0) % RDW 15.7 H (11.5-15.5) % Plt Count 144 L (150-450) k/uL Lymphocytes # 0.7 L (1.0-4.8) k/uL Chloride (98-107) mmol/L BUN (9-20) mg/dL Creatinine (0.66-1.25) mg/dL Glucose (74-99) mg/dL POC Glucose (mg/dL) 101 H 139 H (75-99) mg/dL Calcium (8.4-10.2) mg/dL AST (17-59) U/L ALT (21-72) U/L Alkaline Phosphatase (38-126) U/L Total Protein (6.3-8.2) g/dL 11/02/18 11/02/18 Range/Units 07:09 08:18 RBC (4.30-5.90) m/uL Hgb (13.0-17.5) gm/dL Hct (39.0-53.0) % RDW (11.5-15.5) % Plt Count (150-450) k/uL Lymphocytes # (1.0-4.8) k/uL Chloride (98-107) mmol/L BUN (9-20) mg/dL Creatinine (0.66-1.25) mg/dL Glucose (74-99) mg/dL POC Glucose (mg/dL) 151 H 124 H (75-99) mg/dL Calcium (8.4-10.2) mg/dL AST (17-59) U/L ALT (21-72) U/L Alkaline Phosphatase (38-126) U/L Total Protein (6.3-8.2) g/dL Assessment and Plan Assessment: Assessment #1 CAD and status post LAD stenting #2 severe mitral regurgitation and status post repair #3 multiple comorbid conditions including hypertension and dyslipidemia Plan #1 continue the current medical regimen #2 follow-up with the patient
[2018-11-02] MEDS: CLEVIDIPINE BUTYRATE 25 MG in EMPTY BAG 1 BAG IV SCH ×5 (08:56→22:09)
--- NOTE | 2018-11-02 09:25 | P.PN ---
Subjective Progress Note Date: 11/02/18 Principal diagnosis: Severe eccentric mitral valve regurgitation, severely calcified mitral annulus, torn chordae to P1 posterior leaflet, past medical history significant for radha nary artery disease with recent drug-eluting stent placed to his left anterior descending coronary artery on 09/24/2018, chronic diastolic heart congestive failure, hypertension, hyperlipidemia, type 2 diabetes mellitus with peripheral neuropathy, chronic kidney disease with creatinine baseline around 2, obstructive sleep apnea without home CPAP use, pulmonary hypertension, obesity, osteoarthritis, remote history of tobacco dependence. POD #2 complex mitral valve repair with resection of torn chordae to P1, posterior leaflet plication of P1 and P2, small resection P1P2 leaflet, plication of both anterior mitral trigones, clip ligation of the left atrial appendage with a 35 mm Atriclip an intraoperative transesophageal echocardiogram. Postoperative acute blood loss anemia, an expected outcome due to cardiopulmonary bypass and hemodilution. Postoperative transaminitis with elevation of his AST and ALT, an unexpected outcome. The patient is currently laying in bed in the intensive care unit. He is in no acute distress. He currently denies any complaints of pain or shortness of br eath. The patient seems more alert this morning. He remains afebrile, hemodynamically stable and is currently on no inotropic or pressor support. Cleviprex remains at 4 mg per hour due to some hypertension. His hemoglobin this morning is 6.2 and will be transfused 1 unit of packed red blood cells. Lasix drip is at 20 mg per hour and his output has been 50-100 mL per hour. He is complaining of generalized weakness, although is moving all 4 extremities appropriately. Right IJ cordis and [place] catheter remain in place with current cardiac output 5.3, cardiac index 2.6, PA pressures 58/31, CVP 21 mmHg. Oxygen saturation are 93% on BiPAP support. Current BiPAP settings are 12/5, rate 12, 50% FiO2. He is giving a poor effort on his incentive spirometry and is only achieving about 200-250 mL. Objective - Vital Signs Vital signs: Vital Signs Temp 37.9 F L 11/02/18 08:00 Pulse 73 11/02/18 08:00 Resp 29 H 11/02/18 08:00 BP 120/50 11/02/18 08:00 Pulse Ox 94 L 11/02/18 08:00 Intake & Output 11/01/18 11/02/18 11/02/18 18:59 06:59 18:59 Intake Total 8298.612 5108.274 72.393 Output Total 619 880 225 Balance 1061.300 262.274 -152.607 Weight 109.3 kg 105.1 kg Intake: IV 1330 789 58 Albumin Human 5% 250 ml 500 In Empty Bag 1 bag @ 250 mls/hr IVPB Q1HR PRN Rx#: [id number] CO/CI 140 90 Furosemide 100 mg In 40 220 Sodium Chloride 0.9% 90 ml @ 20 MG/HR 20 mls/hr IV .Q5H [facility]IME Rx#:[id number] Lactated Ringers 1,000 ml 560 380 40 @ 20 mls/hr IV .Q24H JAIME Rx#:[id number] pressure bag 90 99 18 Intake, IV Titration 200.300 353.274 14.393 Amount Furosemide 100 mg In 266.667 Sodium Chloride 0.9% 90 ml @ 20 MG/HR 20 mls/hr IV .Q5H [facility]IME Rx#:[id number] Insulin Regular 100 unit 47.251 86.607 14.393 In Sodium Chloride 0.9% 100 ml @ Per Protocol IV .Q0M [facility]IME Rx#:[id number] Milrinone-D5w Pmx 20 mg 111.599 In Dextrose/Water 1 100ml .bag @ Per Protocol IV . Q0M JAIME Rx#:[id number] Nitroglycerin-D5w Pmx 50 41.45 mg In Dextrose/Water 1 250ml.bag @ 10 MCG/MIN 3 mls/hr IV .Q24H JAIME Rx#: [id number] Oral 150 Output: Chest Tube Drainage 285 130 25 Chest Tube Left Pleural/ 285 130 25 Mediastinal Urine 334 750 200 Other: Voiding Method Indwelling Catheter Indwelling Catheter ABP, PAP, CO, CI - Last Documented Arterial Blood Pressure 151/50 Pulmonary Artery Pressure 59/25 Cardiac Output 7.5 Cardiac Index 3.6 - Constitutional General appearance: Present: cooperative, no acute distress, obese - Respiratory Details: Lung sounds diminished throughout, scattered crackles to his bilateral bases. Respirations are symmetrical and nonlabored with BiPAP support. Oxygen saturation is 93% on current BiPAP settings. Mediastinal and left pleural chest tube remain in place to low continuous wall suction -20 cm H2O. No air leak is present. Draining thin serosanguineous drainage. 90 mL output in the last 8 hours, 450 mL output in the last 24 hours. Achieving 200-250 mL on his incentive spirometry. - Cardiovascular Details: Regular rhythm and rate. S1 and S2 present, negative for S3, gallop or murmur. Sternum is stable. Bedside telemetry showing normal sinus rhythm heart rate 71. Right IJ Cordis with [place] catheter in place. Left radial arterial line in place and functioning. Knee-high GUERRERO hose and sequential compression devices in place was bilateral lower extremities. +1 generalized edema. Heart hugger is in place and is showing appropriate use. Ventricular epicardial pacemaker wire in place and connected to a backup pacemaker generator with a VVI 50. - Gastrointestinal Gastrointestinal Comment(s): Abdomen is soft, nontender and nondistended. Hypoactive bowel sounds present in all 4 abdominal quadrants. No guarding or rigidity. No organomegaly appreciated. Tolerating oral intake. - Genitourinary Genitourinary Comment(s): Burrell catheter for accurate I&O. Draining clear yellow urine. 555 mL output in the last 8 hours. Lasix drip remains at 20 mg per hour. - Integumentary Integumentary Comment(s): Warm and dry. No clubbing or cyanosis is present. Midline sternal incision is clean, dry and approximated. No drainage or redness is present. Exofin dressing is clean, dry and intact. Gauze dressing is clean and dry. - Neurologic Neurologic: Present: CNII-XII intact - Musculoskeletal Musculoskeletal: Present: gait normal, generalized weakness, strength equal bilaterally - Psychiatric Psychiatric Comment(s): Flat affect Psychiatric: Present: A&O x's 3, intact judgment & insight - Allied health notes Allied health notes reviewed: nursing - Labs CBC & Chem 7: 11/02/18 03:31 11/02/18 03:13 Labs: Abnormal Lab Results - Last 24 Hours (Table) 11/01/18 11/01/18 11/01/18 Range/Units 10:12 11:28 13:12 RBC (4.30-5.90) m/uL Hgb (13.0-17.5) gm/dL Hct (39.0-53.0) % RDW (11.5-15.5) % Plt Count (150-450) k/uL Lymphocytes # (1.0-4.8) k/uL Chloride (98-107) mmol/L BUN (9-20) mg/dL Creatinine (0.66-1.25) mg/dL Glucose (74-99) mg/dL POC Glucose (mg/dL) 141 H 149 H 159 H (75-99) mg/dL Calcium (8.4-10.2) mg/dL AST (17-59) U/L ALT (21-72) U/L Alkaline Phosphatase (38-126) U/L Total Protein (6.3-8.2) g/dL 11/01/18 11/01/18 11/01/18 Range/Units 13:58 15:02 15:59 RBC (4.30-5.90) m/uL Hgb (13.0-17.5) gm/dL Hct (39.0-53.0) % RDW (11.5-15.5) % Plt Count (150-450) k/uL Lymphocytes # (1.0-4.8) k/uL Chloride (98-107) mmol/L BUN (9-20) mg/dL Creatinine (0.66-1.25) mg/dL Glucose (74-99) mg/dL POC Glucose (mg/dL) 147 H 123 H 123 H (75-99) mg/dL Calcium (8.4-10.2) mg/dL AST (17-59) U/L ALT (21-72) U/L Alkaline Phosphatase (38-126) U/L Total Protein (6.3-8.2) g/dL 11/01/18 11/01/18 11/01/18 Range/Units 17:10 17:55 18:54 RBC (4.30-5.90) m/uL Hgb (13.0-17.5) gm/dL Hct (39.0-53.0) % RDW (11.5-15.5) % Plt Count (150-450) k/uL Lymphocytes # (1.0-4.8) k/uL Chloride (98-107) mmol/L BUN (9-20) mg/dL Creatinine (0.66-1.25) mg/dL Glucose (74-99) mg/dL POC Glucose (mg/dL) 124 H 123 H 121 H (75-99) mg/dL Calcium (8.4-10.2) mg/dL AST (17-59) U/L ALT (21-72) U/L Alkaline Phosphatase (38-126) U/L Total Protein (6.3-8.2) g/dL 11/01/18 11/01/18 11/01/18 Range/Units 20:12 21:17 22:03 RBC (4.30-5.90) m/uL Hgb (13.0-17.5) gm/dL Hct (39.0-53.0) % RDW (11.5-15.5) % Plt Count (150-450) k/uL Lymphocytes # (1.0-4.8) k/uL Chloride (98-107) mmol/L BUN (9-20) mg/dL Creatinine (0.66-1.25) mg/dL Glucose (74-99) mg/dL POC Glucose (mg/dL) 105 H 122 H 126 H (75-99) mg/dL Calcium (8.4-10.2) mg/dL AST (17-59) U/L ALT (21-72) U/L Alkaline Phosphatase (38-126) U/L Total Protein (6.3-8.2) g/dL 11/01/18 11/02/18 11/02/18 Range/Units 23:01 00:01 02:05 RBC (4.30-5.90) m/uL Hgb (13.0-17.5) gm/dL Hct (39.0-53.0) % RDW (11.5-15.5) % Plt Count (150-450) k/uL Lymphocytes # (1.0-4.8) k/uL Chloride (98-107) mmol/L BUN (9-20) mg/dL Creatinine (0.66-1.25) mg/dL Glucose (74-99) mg/dL POC Glucose (mg/dL) 151 H 144 H 137 H (75-99) mg/dL Calcium (8.4-10.2) mg/dL AST (17-59) U/L ALT (21-72) U/L Alkaline Phosphatase (38-126) U/L Total Protein (6.3-8.2) g/dL 11/02/18 11/02/18 11/02/18 Range/Units 03:13 03:13 03:31 RBC 1.99 L (4.30-5.90) m/uL Hgb 6.2 L* (13.0-17.5) gm/dL Hct 18.8 L* (39.0-53.0) % RDW 15.7 H (11.5-15.5) % Plt Count 144 L (150-450) k/uL Lymphocytes # 0.7 L (1.0-4.8) k/uL Chloride 108 H (98-107) mmol/L BUN 55 H (9-20) mg/dL Creatinine 3.28 H (0.66-1.25) mg/dL Glucose 103 H (74-99) mg/dL POC Glucose (mg/dL) 111 H (75-99) mg/dL Calcium 8.1 L (8.4-10.2) mg/dL AST 630 H (17-59) U/L ALT 258 H (21-72) U/L Alkaline Phosphatase 24 L (38-126) U/L Total Protein 5.6 L (6.3-8.2) g/dL 11/02/18 11/02/18 11/02/18 Range/Units 03:52 06:01 07:09 RBC (4.30-5.90) m/uL Hgb (13.0-17.5) gm/dL Hct (39.0-53.0) % RDW (11.5-15.5) % Plt Count (150-450) k/uL Lymphocytes # (1.0-4.8) k/uL Chloride (98-107) mmol/L BUN (9-20) mg/dL Creatinine (0.66-1.25) mg/dL Glucose (74-99) mg/dL POC Glucose (mg/dL) 101 H 139 H 151 H (75-99) mg/dL Calcium (8.4-10.2) mg/dL AST (17-59) U/L ALT (21-72) U/L Alkaline Phosphatase (38-126) U/L Total Protein (6.3-8.2) g/dL 11/02/18 Range/Units 08:18 RBC (4.30-5.90) m/uL Hgb (13.0-17.5) gm/dL Hct (39.0-53.0) % RDW (11.5-15.5) % Plt Count (150-450) k/uL Lymphocytes # (1.0-4.8) k/uL Chloride (98-107) mmol/L BUN (9-20) mg/dL Creatinine (0.66-1.25) mg/dL Glucose (74-99) mg/dL POC Glucose (mg/dL) 124 H (75-99) mg/dL Calcium (8.4-10.2) mg/dL AST (17-59) U/L ALT (21-72) U/L Alkaline Phosphatase (38-126) U/L Total Protein (6.3-8.2) g/dL - Imaging and Cardiology Chest x-ray: report reviewed, image reviewed Assessment and Plan Assessment: 1. Severe eccentric mitral valve regurgitation, severely calcified mitral annulus, performed chordee to P1 posterior leaflet, status post mitral valve repair 2. Coronary artery disease with recent drug-eluting stent to the LAD on 09/24/2018 3. Chronic diastolic heart failure 4. Hypertension 5. Hyperlipidemia 6. Type 2 diabetes mellitus with peripheral neuropathy 7. Chronic kidney disease with creatinine baseline around 2 8. Obstructive sleep apnea without home CPAP use 9. Pulmonary hypertension 10. Obesity 11. Osteoarthritis 12. Remote history of tobacco dependence 13. Postoperative acute blood loss anemia, an expected outcome 14. Postoperative transaminitis with elevation of his AST and ALT, an unexpected outcome Plan: 1. Continue aspirin, Plavix, and beta sun. Will increase his metoprolol tartrate 25 mg by mouth twice a day. 2. Primacor, nitroglycerin, and norepinephrine drips have been discontinued. 3. Wean O2/BiPAP as tolerated. BiPAP management per Dr. Celis's recommendations. Encourage incentive spirometry use 10 times every hour while awake. 4. Increase activity, ambulate as tolerated. PT/OT/cardiac rehab following. 5. Will monitor daily labs and chest x-rays. Electrolyte replacement per protocol. Transfuse 1 unit of packed red blood cells today for hemoglobin of 6.2. 6. Bronchodilators per pulmonology management. 7. Pain control with current medication regimen. Avoid Toradol due to his renal function. 8. Insulin management per primary care service. 9. Discontinue [place] catheter, keep right IJ Cordis in place to continuous CVP monitoring. 10. Continue chest tubes, left radial arterial line and Burrell catheter. 11. Continue Lasix drip at 20 mg per hour, we will also add Zaroxolyn 5 mg by mouth daily. 13. Avoid nephrotoxic medications. 14. Encourage continued cessation of tobacco. 15. Discontinue Lipitor due to his elevation of his AST and ALT, start the Lipitor once his liver enzymes have normalized. 16. Continue Cleviprex drip and keep his systolic pressure in between 130 and 1 40 mmHg systolic pressure. 17. More recommendations to follow based on patient's clinical course. Time with Patient: Greater than 30
[2018-11-02] MEDS: PANTOPRAZOLE 40 MG/10 ML VIAL IVP SCH (09:32)
[2018-11-02] MEDS: ASPIRIN 325 MG TAB PO SCH (09:32)
[2018-11-02] MEDS: CLOPIDOGREL 75 MG TAB PO SCH (09:32)
[2018-11-02] MEDS: METOLAZONE 5 MG TAB PO SCH (09:33)
[2018-11-02] MEDS: FERROUS SULFATE 325 MG TAB PO SCH (09:33)
[2018-11-02] MEDS: METOPROLOL TARTRATE 25 MG TAB PO SCH ×2 (09:33→22:11)
[2018-11-02] MEDS: MULTIVITAMINS, THERA 1 EACH TAB PO SCH (09:34)
[2018-11-02] MEDS: CHOLECALCIFEROL 1,000 UNIT TAB PO SCH (09:34)
[2018-11-02] MEDS: LACTATED RINGERS 1,000 ML IV SCH (09:40)
[2018-11-02 09:45] LABS: Glucose,Whole Blood 101 mg/dL (75-99)
[2018-11-02 10:32] LABS: Glucose,Whole Blood 109 mg/dL (75-99)
[2018-11-02 11:04] LABS: Glucose,Whole Blood 120 mg/dL (75-99)
[2018-11-02 12:12] LABS: Glucose,Whole Blood 154 mg/dL (75-99)
[2018-11-02 13:20] LABS: ABG Base Excess -2.5 mmol/L; ABG HCO3 21 mmol/L (21-25); ABG Oxygen Saturation 97.8 % (94-97); ABG PCO2 31 mmHg (35-45); ABG PH 7.46 (7.35-7.45); ABG PO2 90 mmHg (83-108); ABG TCO2 22 mmol/L (19-24); Allen Test Performed? Yes
[2018-11-02 13:39] LABS: Glucose,Whole Blood 168 mg/dL (75-99)
[2018-11-02 14:32] LABS: Glucose,Whole Blood 149 mg/dL (75-99)
[2018-11-02 16:07] LABS: Glucose,Whole Blood 107 mg/dL (75-99)
[2018-11-02 18:13] LABS: Glucose,Whole Blood 115 mg/dL (75-99)
[2018-11-02 18:13] LABS: Glucose,Whole Blood 100 mg/dL (75-99)
[2018-11-02 18:13] LABS: Glucose,Whole Blood 129 mg/dL (75-99)
[2018-11-02 18:34] LABS: HCT 22.8 % (39.0-53.0); MCH 31.4 pg (25.0-35.0); MCV 92.2 fL (80.0-100.0); Platelet Count 158 k/uL (150-450); Poikilocytosis Slight; RBC 2.48 m/uL (4.30-5.90); RDW 15.7 % (11.5-15.5); WBC 9.4 k/uL (3.8-10.6)
[2018-11-02 18:53] LABS: HGB 7.8 gm/dL (13.0-17.5)
[2018-11-02 19:24] LABS: Glucose,Whole Blood 104 mg/dL (75-99)
[2018-11-02 20:17] LABS: Glucose,Whole Blood 133 mg/dL (75-99)
[2018-11-02 21:00] LABS: Glucose,Whole Blood 152 mg/dL (75-99)
[2018-11-02] MEDS: SENNOSIDES-DOCUSATE SODIUM 1 EACH TAB PO SCH (22:11)
[2018-11-02 22:28] LABS: Glucose,Whole Blood 166 mg/dL (75-99)
[2018-11-02 23:05] LABS: Glucose,Whole Blood 170 mg/dL (75-99)
--- NOTE | 2018-11-02 23:37 | P.PN ---
Subjective Progress Note Date: 11/02/18 Principal diagnosis: This is a 73-year-old male was admitted to have mitral valve replacement and is being closely monitored. Patient is sitting up in the recliner talking to family on the phone in no acute distress. Patient has been up and walking around the room with no difficulties. Cardiology is following. Patient is to undergo surgery in the morning. Patient is currently on IV Aggrastat. Patient denies any shortness of breath, chest pain, or palpitations at this time. Patient denies any nausea or vomiting. Patient is afebrile. Patient states he is just waiting for his heart surgery tomorrow. Guarded prognosis. This is a 73-year-old male who is currently in the ICU on postop day #1 who underwent mitral valve repair with resection with Dr. Lozada. Patient was extubated and is currently on a BiPAP. Patient is tolerating well. Patient is being closely monitored. Family is at the bedside. Patient is currently still on an insulin drip at 7.5 units per hour and is being closely monitored. Patient still has a chest tube on the left side with a total of 210 mL output over the last 8 hours. Patient still has an indwelling Burrell catheter and monitoring output as well. Dr. Celis is following the patient closely. 11/02/2018 Today patient is still currently in the ICU and post op day #2 for the mitral valve repair with resection and is being closely monitored. Patient is currently still on a Bipap with settings of 12/5, 50% Fi02. Patient is hemodynamically stable after receiving 1 unit of PRBC earlier this morning. Patient denies any new shortness of breath, chest pain, or palpitations. Patient is tolerating the Bipap. Patient has poor incentive spirometer use and achieving 200. Patient is very lethargic but easily arousable. Patient will be working with PT/OT once respiratory status has stabilized. Patient is currently on a lasix drip and u rine output has slightly improved. Patient is also on Cleviprex for blood pressure control. Prognosis is extremely guarded. Will continue to monitor closely. Objective - Vital Signs Vital signs: Vital Signs Temp 99.3 F 11/02/18 16:00 Pulse 71 11/02/18 19:57 Resp 25 H 11/02/18 19:00 BP 101/60 11/02/18 16:00 Pulse Ox 94 L 11/02/18 19:00 Intake & Output 11/02/18 11/02/18 11/03/18 06:59 18:59 06:59 Intake Total 2306.452 1467.599 207.852 Output Total 880 1230 120 Balance 262.274 -193.401 87.852 Weight 105.1 kg Intake: IV 789 366 23 CO/CI 90 30 Furosemide 100 mg In 220 Sodium Chloride 0.9% 90 ml @ 20 MG/HR 20 mls/hr IV .Q5H [facility] Rx#:[id number] Lactated Ringers 1,000 ml 380 240 20 @ 20 mls/hr IV .Q24H [facility] Rx#:[id number] pressure bag 99 96 3 Intake, IV Titration 353.274 360.599 184.852 Amount Clevidipine Butyrate 25 100.000 83.0 mg In Empty Bag 1 bag @ 1 MG/HR 2 mls/hr IV .Q24H [facility] Rx#:[id number] Furosemide 100 mg In 266.667 200 100 Sodium Chloride 0.9% 90 ml @ 20 MG/HR 20 mls/hr IV .Q5H [facility] Rx#:[id number] Insulin Regular 100 unit 86.607 60.599 1.852 In Sodium Chloride 0.9% 100 ml @ Per Protocol IV .Q0M [facility] Rx#:[id number] Blood Product 310 Rc As-1 Unit 310 [id number] Output: Chest Tube Drainage 130 110 10 Chest Tube Left Pleural/ 130 110 10 Mediastinal Urine 750 1120 110 Other: Voiding Method Indwelling Catheter Indwelling Catheter ABP, PAP, CO, CI - Last Documented Arterial Blood Pressure 139/46 Pulmonary Artery Pressure 52/22 Cardiac Output 7.5 Cardiac Index 3.6 - Exam Gen: This is a 73-year-old male sitting up in bed in no acute distress. Vital signs are stable. Blood pressure is 104/87, pulse is 75, respirations are 20, oxygen saturation is 95% on BiPAP. HEENT: Head is atraumatic, normocephalic. Pupils equal, round. Sclerae is anicteric. Bipap mask noted NECK: Supple. No JVD. No lymphadenopathy. No thyromegaly. LUNGS: Lung sounds diminished at the bases with a few scattered rhonchi noted. No intercostal retractions. HEART: S1 and S2 are muffled ABDOMEN: Soft. Bowel sounds are present. No masses. No tenderness. EXTREMITIES: No pedal edema. No calf tenderness. NEUROLOGICAL: Patient is lethargic but awake, alert and oriented x3. Cranial ner ves 2 through 12 are grossly intact. - Labs CBC & Chem 7: 11/02/18 18:22 11/02/18 03:13 Labs: Abnormal Lab Results - Last 24 Hours (Table) 11/01/18 11/02/18 11/02/18 Range/Units 23:01 00:01 02:05 RBC (4.30-5.90) m/uL Hgb (13.0-17.5) gm/dL Hct (39.0-53.0) % RDW (11.5-15.5) % Plt Count (150-450) k/uL Lymphocytes # (1.0-4.8) k/uL ABG pH (7.35-7.45) ABG pCO2 (35-45) mmHg ABG O2 Saturation (94-97) % Chloride (98-107) mmol/L BUN (9-20) mg/dL Creatinine (0.66-1.25) mg/dL Glucose (74-99) mg/dL POC Glucose (mg/dL) 151 H 144 H 137 H (75-99) mg/dL Calcium (8.4-10.2) mg/dL AST (17-59) U/L ALT (21-72) U/L Alkaline Phosphatase (38-126) U/L Total Protein (6.3-8.2) g/dL Crossmatch 11/02/18 11/02/18 11/02/18 Range/Units 03:13 03:13 03:31 RBC 1.99 L (4.30-5.90) m/uL Hgb 6.2 L* (13.0-17.5) gm/dL Hct 18.8 L* (39.0-53.0) % RDW 15.7 H (11.5-15.5) % Plt Count 144 L (150-450) k/uL Lymphocytes # 0.7 L (1.0-4.8) k/uL ABG pH (7.35-7.45) ABG pCO2 (35-45) mmHg ABG O2 Saturation (94-97) % Chloride 108 H (98-107) mmol/L BUN 55 H (9-20) mg/dL Creatinine 3.28 H (0.66-1.25) mg/dL Glucose 103 H (74-99) mg/dL POC Glucose (mg/dL) 111 H (75-99) mg/dL Calcium 8.1 L (8.4-10.2) mg/dL AST 630 H (17-59) U/L ALT 258 H (21-72) U/L Alkaline Phosphatase 24 L (38-126) U/L Total Protein 5.6 L (6.3-8.2) g/dL Crossmatch 11/02/18 11/02/18 11/02/18 Range/Units 03:52 06:01 07:09 RBC (4.30-5.90) m/uL Hgb (13.0-17.5) gm/dL Hct (39.0-53.0) % RDW (11.5-15.5) % Plt Count (150-450) k/uL Lymphocytes # (1.0-4.8) k/uL ABG pH (7.35-7.45) ABG pCO2 (35-45) mmHg ABG O2 Saturation (94-97) % Chloride (98-107) mmol/L BUN (9-20) mg/dL Creatinine (0.66-1.25) mg/dL Glucose (74-99) mg/dL POC Glucose (mg/dL) 101 H 139 H 151 H (75-99) mg/dL Calcium (8.4-10.2) mg/dL AST (17-59) U/L ALT (21-72) U/L Alkaline Phosphatase (38-126) U/L Total Protein (6.3-8.2) g/dL Crossmatch 11/02/18 11/02/18 11/02/18 Range/Units 08:15 08:18 09:18 RBC (4.30-5.90) m/uL Hgb (13.0-17.5) gm/dL Hct (39.0-53.0) % RDW (11.5-15.5) % Plt Count (150-450) k/uL Lymphocytes # (1.0-4.8) k/uL ABG pH (7.35-7.45) ABG pCO2 (35-45) mmHg ABG O2 Saturation (94-97) % Chloride (98-107) mmol/L BUN (9-20) mg/dL Creatinine (0.66-1.25) mg/dL Glucose (74-99) mg/dL POC Glucose (mg/dL) 124 H 101 H (75-99) mg/dL Calcium (8.4-10.2) mg/dL AST (17-59) U/L ALT (21-72) U/L Alkaline Phosphatase (38-126) U/L Total Protein (6.3-8.2) g/dL Crossmatch See Detail 11/02/18 11/02/18 11/02/18 Range/Units 10:30 11:01 12:10 RBC (4.30-5.90) m/uL Hgb (13.0-17.5) gm/dL Hct (39.0-53.0) % RDW (11.5-15.5) % Plt Count (150-450) k/uL Lymphocytes # (1.0-4.8) k/uL ABG pH (7.35-7.45) ABG pCO2 (35-45) mmHg ABG O2 Saturation (94-97) % Chloride (98-107) mmol/L BUN (9-20) mg/dL Creatinine (0.66-1.25) mg/dL Glucose (74-99) mg/dL POC Glucose (mg/dL) 109 H 120 H 154 H (75-99) mg/dL Calcium (8.4-10.2) mg/dL AST (17-59) U/L ALT (21-72) U/L Alkaline Phosphatase (38-126) U/L Total Protein (6.3-8.2) g/dL Crossmatch 11/02/18 11/02/18 11/02/18 Range/Units 13:12 13:17 14:26 RBC (4.30-5.90) m/uL Hgb (13.0-17.5) gm/dL Hct (39.0-53.0) % RDW (11.5-15.5) % Plt Count (150-450) k/uL Lymphocytes # (1.0-4.8) k/uL ABG pH 7.46 H (7.35-7.45) ABG pCO2 31 L (35-45) mmHg ABG O2 Saturation 97.8 H (94-97) % Chloride (98-107) mmol/L BUN (9-20) mg/dL Creatinine (0.66-1.25) mg/dL Glucose (74-99) mg/dL POC Glucose (mg/dL) 168 H 149 H (75-99) mg/dL Calcium (8.4-10.2) mg/dL AST (17-59) U/L ALT (21-72) U/L Alkaline Phosphatase (38-126) U/L Total Protein (6.3-8.2) g/dL Crossmatch 11/02/18 11/02/18 11/02/18 Range/Units 16:02 17:23 17:37 RBC (4.30-5.90) m/uL Hgb (13.0-17.5) gm/dL Hct (39.0-53.0) % RDW (11.5-15.5) % Plt Count (150-450) k/uL Lymphocytes # (1.0-4.8) k/uL ABG pH (7.35-7.45) ABG pCO2 (35-45) mmHg ABG O2 Saturation (94-97) % Chloride (98-107) mmol/L BUN (9-20) mg/dL Creatinine (0.66-1.25) mg/dL Glucose (74-99) mg/dL POC Glucose (mg/dL) 107 H 129 H 115 H (75-99) mg/dL Calcium (8.4-10.2) mg/dL AST (17-59) U/L ALT (21-72) U/L Alkaline Phosphatase (38-126) U/L Total Protein (6.3-8.2) g/dL Crossmatch 11/02/18 11/02/18 11/02/18 Range/Units 18:10 18:22 19:09 RBC 2.48 L (4.30-5.90) m/uL Hgb 7.8 L D (13.0-17.5) gm/dL Hct 22.8 L (39.0-53.0) % RDW 15.7 H (11.5-15.5) % Plt Count (150-450) k/uL Lymphocytes # (1.0-4.8) k/uL ABG pH (7.35-7.45) ABG pCO2 (35-45) mmHg ABG O2 Saturation (94-97) % Chloride (98-107) mmol/L BUN (9-20) mg/dL Creatinine (0.66-1.25) mg/dL Glucose (74-99) mg/dL POC Glucose (mg/dL) 100 H 104 H (75-99) mg/dL Calcium (8.4-10.2) mg/dL AST (17-59) U/L ALT (21-72) U/L Alkaline Phosphatase (38-126) U/L Total Protein (6.3-8.2) g/dL Crossmatch 11/02/18 11/02/18 11/02/18 Range/Units 20:13 20:57 22:01 RBC (4.30-5.90) m/uL Hgb (13.0-17.5) gm/dL Hct (39.0-53.0) % RDW (11.5-15.5) % Plt Count (150-450) k/uL Lymphocytes # (1.0-4.8) k/uL ABG pH (7.35-7.45) ABG pCO2 (35-45) mmHg ABG O2 Saturation (94-97) % Chloride (98-107) mmol/L BUN (9-20) mg/dL Creatinine (0.66-1.25) mg/dL Glucose (74-99) mg/dL POC Glucose (mg/dL) 133 H 152 H 166 H (75-99) mg/dL Calcium (8.4-10.2) mg/dL AST (17-59) U/L ALT (21-72) U/L Alkaline Phosphatase (38-126) U/L Total Protein (6.3-8.2) g/dL Crossmatch Assessment and Plan Assessment: Severe mitral regurgitation: Patient underwent mitral valve replacement. Carotid disease with recent myocardial infarction and stent placement Severe pulmonary hypertension Chronic diastolic dysfunction without any acute exacerbation. Chronic kidney disease stage III creatinine is baseline was 2.11. We'll continue to monitor closely Hyperlipidemia Gastroesophageal reflux disease Diabetes mellitus type 2 with diabetic nephropathy: Patient will be resumed on home medications. Will titrate insulin and diabetic medications depending on blood sugar readings. Patient is currently on insulin drip at 5 mL/hour DVT prophylaxis: Patient is on heparin subq every 8 hours Recommendations and discussion Recommend continue current medication management and symptomatic treatment. Patient is currently still in the ICU. Will continue to monitor labs and vital signs closely. Cardiology, pulmonary, and cardiothoracic surgery are following closely. Continue to encourage incentive spirometer use every hour while awake. Guarded prognosis. Further recommendations to follow.
[2018-11-03 00:02] LABS: Glucose,Whole Blood 167 mg/dL (75-99)
[2018-11-03] MEDS: CLEVIDIPINE BUTYRATE 25 MG in EMPTY BAG 1 BAG IV SCH ×4 (00:57→10:28)
[2018-11-03 01:54] LABS: Glucose,Whole Blood 165 mg/dL (75-99)
[2018-11-03 02:06] LABS: Glucose,Whole Blood 158 mg/dL (75-99)
[2018-11-03] MEDS: FUROSEMIDE 100 MG in SODIUM CHLORIDE 0.9% 90 ML IV SCH ×4 (03:15→21:12)
[2018-11-03] MEDS: IPRATROPIUM-ALBUTEROL 3 ML NEB INHALATION PRN (03:17)
[2018-11-03 04:23] LABS: Anisocytosis Slight; Basophils % (A) 0 %; Eosinophils # (A) 0.1 k/uL (0-0.7); Eosinophils % (A) 1 %; HCT 23.5 % (39.0-53.0); Lymphocytes # (A) 0.9 k/uL (1.0-4.8); Lymphocytes % (A) 9 %; MCH 31.2 pg (25.0-35.0); MCHC 34.1 g/dL (31.0-37.0); MCV 91.3 fL (80.0-100.0); Monocytes # (A) 0.4 k/uL (0-1.0); Monocytes % (A) 4 %; Neutrophils # (A) 7.8 k/uL (1.3-7.7); Neutrophils % (A) 85 %; Platelet Count 165 k/uL (150-450); Poikilocytosis Slight; RBC 2.58 m/uL (4.30-5.90); RDW 16.6 % (11.5-15.5); WBC 9.2 k/uL (3.8-10.6)
[2018-11-03 04:33] LABS: Albumin 3.7 g/dL (3.5-5.0); Calcium 8.3 mg/dL (8.4-10.2); Potassium 3.8 mmol/L (3.5-5.1); Total Bilirubin 1.1 mg/dL (0.2-1.3); Total Protein 5.9 g/dL (6.3-8.2)
[2018-11-03] MEDS: INSULIN REGULAR 100 UNIT in SODIUM CHLORIDE 0.9% 100 ML IV SCH (04:45)
[2018-11-03 04:48] LABS: Glucose,Whole Blood 140 mg/dL (75-99)
[2018-11-03 05:25] LABS: Glucose,Whole Blood 137 mg/dL (75-99)
[2018-11-03 06:07] LABS: Glucose,Whole Blood 127 mg/dL (75-99)
[2018-11-03 06:59] LABS: Glucose,Whole Blood 117 mg/dL (75-99)
[2018-11-03] MEDS: IPRATROPIUM-ALBUTEROL 3 ML NEB INHALATION SCH ×4 (07:23→19:09)
--- NOTE | 2018-11-03 07:37 | P.PN ---
Subjective Progress Note Date: 11/03/18 Principal diagnosis: Severe mitral regurgitation This is a 73-year-old gentleman with CAD and prior stenting of the LAD, severe mitral regurgitation, underwent mitral valve repair. On follow-up with the patient today, 11/03/2018, overall the patient clinically seems to be better. The chest x-ray seems to be slightly better. He still on Lasix drip but unfortunately the creatinine has been trending up. I suggested a nephrology consult to see the patient. The blood pressure still elevated and we are going to start the patient on hydralazine at 10 mg by mouth 3 times a day. He has been maintaining normal sinus mechanism. Objective - Vital Signs Vital signs: Vital Signs Temp 99.2 F 11/03/18 00:00 Pulse 78 11/03/18 07:24 Resp 20 11/03/18 07:00 BP 101/60 11/02/18 16:00 Pulse Ox 96 11/03/18 07:00 Intake & Output 11/02/18 11/03/18 11/03/18 18:59 06:59 18:59 Intake Total 1036.599 755.548 29.574 Output Total 1230 2306 183 Balance -193.401 -1550.452 -153.426 Weight 102 kg Intake: IV 366 276 23 CO/CI 30 Lactated Ringers 1,000 ml 240 240 20 @ 20 mls/hr IV .Q24H [facility] Rx#:[id number] pressure bag 96 36 3 Intake, IV Titration 360.599 479.548 6.574 Amount Clevidipine Butyrate 25 100.000 227.633 4.133 mg In Empty Bag 1 bag @ 1 MG/HR 2 mls/hr IV .Q24H [facility] Rx#:[id number] Furosemide 100 mg In 200 200 Sodium Chloride 0.9% 90 ml @ 20 MG/HR 20 mls/hr IV .Q5H [facility] Rx#:[id number] Insulin Regular 100 unit 60.599 51.915 2.441 In Sodium Chloride 0.9% 100 ml @ Per Protocol IV .Q0M [facility] Rx#:[id number] Blood Product 310 Rc As-1 Unit 310 [id number] Output: Chest Tube Drainage 110 96 8 Chest Tube Left Pleural/ 110 96 8 Mediastinal Urine 1120 2210 175 Other: Voiding Method Indwelling Catheter Indwelling Catheter ABP, PAP, CO, CI - Last Documented Arterial Blood Pressure 153/54 Pulmonary Artery Pressure 52/22 Cardiac Output 7.5 Cardiac Index 3.6 - Constitutional General appearance: Present: no acute distress - Respiratory Respiratory: bilateral: diminished - Cardiovascular Rhythm: regular Heart sounds: normal: S1, S2 - Labs CBC & Chem 7: 11/03/18 04:08 11/03/18 04:08 Labs: Abnormal Lab Results - Last 24 Hours (Table) 11/02/18 11/02/18 11/02/18 Range/Units 08:15 08:18 09:18 RBC (4.30-5.90) m/uL Hgb (13.0-17.5) gm/dL Hct (39.0-53.0) % RDW (11.5-15.5) % Neutrophils # (1.3-7.7) k/uL Lymphocytes # (1.0-4.8) k/uL ABG pH (7.35-7.45) ABG pCO2 (35-45) mmHg ABG O2 Saturation (94-97) % BUN (9-20) mg/dL Creatinine (0.66-1.25) mg/dL Glucose (74-99) mg/dL POC Glucose (mg/dL) 124 H 101 H (75-99) mg/dL Calcium (8.4-10.2) mg/dL AST (17-59) U/L ALT (21-72) U/L Alkaline Phosphatase (38-126) U/L Total Protein (6.3-8.2) g/dL Crossmatch See Detail 11/02/18 11/02/18 11/02/18 Range/Units 10:30 11:01 12:10 RBC (4.30-5.90) m/uL Hgb (13.0-17.5) gm/dL Hct (39.0-53.0) % RDW (11.5-15.5) % Neutrophils # (1.3-7.7) k/uL Lymphocytes # (1.0-4.8) k/uL ABG pH (7.35-7.45) ABG pCO2 (35-45) mmHg ABG O2 Saturation (94-97) % BUN (9-20) mg/dL Creatinine (0.66-1.25) mg/dL Glucose (74-99) mg/dL POC Glucose (mg/dL) 109 H 120 H 154 H (75-99) mg/dL Calcium (8.4-10.2) mg/dL AST (17-59) U/L ALT (21-72) U/L Alkaline Phosphatase (38-126) U/L Total Protein (6.3-8.2) g/dL Crossmatch 11/02/18 11/02/18 11/02/18 Range/Units 13:12 13:17 14:26 RBC (4.30-5.90) m/uL Hgb (13.0-17.5) gm/dL Hct (39.0-53.0) % RDW (11.5-15.5) % Neutrophils # (1.3-7.7) k/uL Lymphocytes # (1.0-4.8) k/uL ABG pH 7.46 H (7.35-7.45) ABG pCO2 31 L (35-45) mmHg ABG O2 Saturation 97.8 H (94-97) % BUN (9-20) mg/dL Creatinine (0.66-1.25) mg/dL Glucose (74-99) mg/dL POC Glucose (mg/dL) 168 H 149 H (75-99) mg/dL Calcium (8.4-10.2) mg/dL AST (17-59) U/L ALT (21-72) U/L Alkaline Phosphatase (38-126) U/L Total Protein (6.3-8.2) g/dL Crossmatch 11/02/18 11/02/18 11/02/18 Range/Units 16:02 17:23 17:37 RBC (4.30-5.90) m/uL Hgb (13.0-17.5) gm/dL Hct (39.0-53.0) % RDW (11.5-15.5) % Neutrophils # (1.3-7.7) k/uL Lymphocytes # (1.0-4.8) k/uL ABG pH (7.35-7.45) ABG pCO2 (35-45) mmHg ABG O2 Saturation (94-97) % BUN (9-20) mg/dL Creatinine (0.66-1.25) mg/dL Glucose (74-99) mg/dL POC Glucose (mg/dL) 107 H 129 H 115 H (75-99) mg/dL Calcium (8.4-10.2) mg/dL AST (17-59) U/L ALT (21-72) U/L Alkaline Phosphatase (38-126) U/L Total Protein (6.3-8.2) g/dL Crossmatch 11/02/18 11/02/18 11/02/18 Range/Units 18:10 18:22 19:09 RBC 2.48 L (4.30-5.90) m/uL Hgb 7.8 L D (13.0-17.5) gm/dL Hct 22.8 L (39.0-53.0) % RDW 15.7 H (11.5-15.5) % Neutrophils # (1.3-7.7) k/uL Lymphocytes # (1.0-4.8) k/uL ABG pH (7.35-7.45) ABG pCO2 (35-45) mmHg ABG O2 Saturation (94-97) % BUN (9-20) mg/dL Creatinine (0.66-1.25) mg/dL Glucose (74-99) mg/dL POC Glucose (mg/dL) 100 H 104 H (75-99) mg/dL Calcium (8.4-10.2) mg/dL AST (17-59) U/L ALT (21-72) U/L Alkaline Phosphatase (38-126) U/L Total Protein (6.3-8.2) g/dL Crossmatch 11/02/18 11/02/18 11/02/18 Range/Units 20:13 20:57 22:01 RBC (4.30-5.90) m/uL Hgb (13.0-17.5) gm/dL Hct (39.0-53.0) % RDW (11.5-15.5) % Neutrophils # (1.3-7.7) k/uL Lymphocytes # (1.0-4.8) k/uL ABG pH (7.35-7.45) ABG pCO2 (35-45) mmHg ABG O2 Saturation (94-97) % BUN (9-20) mg/dL Creatinine (0.66-1.25) mg/dL Glucose (74-99) mg/dL POC Glucose (mg/dL) 133 H 152 H 166 H (75-99) mg/dL Calcium (8.4-10.2) mg/dL AST (17-59) U/L ALT (21-72) U/L Alkaline Phosphatase (38-126) U/L Total Protein (6.3-8.2) g/dL Crossmatch 11/02/18 11/02/18 11/03/18 Range/Units 23:02 23:58 01:04 RBC (4.30-5.90) m/uL Hgb (13.0-17.5) gm/dL Hct (39.0-53.0) % RDW (11.5-15.5) % Neutrophils # (1.3-7.7) k/uL Lymphocytes # (1.0-4.8) k/uL ABG pH (7.35-7.45) ABG pCO2 (35-45) mmHg ABG O2 Saturation (94-97) % BUN (9-20) mg/dL Creatinine (0.66-1.25) mg/dL Glucose (74-99) mg/dL POC Glucose (mg/dL) 170 H 167 H 165 H (75-99) mg/dL Calcium (8.4-10.2) mg/dL AST (17-59) U/L ALT (21-72) U/L Alkaline Phosphatase (38-126) U/L Total Protein (6.3-8.2) g/dL Crossmatch 11/03/18 11/03/18 11/03/18 Range/Units 02:01 03:58 04:08 RBC 2.58 L (4.30-5.90) m/uL Hgb 8.0 L (13.0-17.5) gm/dL Hct 23.5 L (39.0-53.0) % RDW 16.6 H (11.5-15.5) % Neutrophils # 7.8 H (1.3-7.7) k/uL Lymphocytes # 0.9 L (1.0-4.8) k/uL ABG pH (7.35-7.45) ABG pCO2 (35-45) mmHg ABG O2 Saturation (94-97) % BUN (9-20) mg/dL Creatinine (0.66-1.25) mg/dL Glucose (74-99) mg/dL POC Glucose (mg/dL) 158 H 140 H (75-99) mg/dL Calcium (8.4-10.2) mg/dL AST (17-59) U/L ALT (21-72) U/L Alkaline Phosphatase (38-126) U/L Total Protein (6.3-8.2) g/dL Crossmatch 11/03/18 11/03/18 11/03/18 Range/Units 04:08 04:59 06:04 RBC (4.30-5.90) m/uL Hgb (13.0-17.5) gm/dL Hct (39.0-53.0) % RDW (11.5-15.5) % Neutrophils # (1.3-7.7) k/uL Lymphocytes # (1.0-4.8) k/uL ABG pH (7.35-7.45) ABG pCO2 (35-45) mmHg ABG O2 Saturation (94-97) % BUN 76 H (9-20) mg/dL Creatinine 3.60 H (0.66-1.25) mg/dL Glucose 132 H (74-99) mg/dL POC Glucose (mg/dL) 137 H 127 H (75-99) mg/dL Calcium 8.3 L (8.4-10.2) mg/dL AST 3549 H (17-59) U/L ALT 1277 H (21-72) U/L Alkaline Phosphatase 37 L (38-126) U/L Total Protein 5.9 L (6.3-8.2) g/dL Crossmatch 11/03/18 Range/Units 06:56 RBC (4.30-5.90) m/uL Hgb (13.0-17.5) gm/dL Hct (39.0-53.0) % RDW (11.5-15.5) % Neutrophils # (1.3-7.7) k/uL Lymphocytes # (1.0-4.8) k/uL ABG pH (7.35-7.45) ABG pCO2 (35-45) mmHg ABG O2 Saturation (94-97) % BUN (9-20) mg/dL Creatinine (0.66-1.25) mg/dL Glucose (74-99) mg/dL POC Glucose (mg/dL) 117 H (75-99) mg/dL Calcium (8.4-10.2) mg/dL AST (17-59) U/L ALT (21-72) U/L Alkaline Phosphatase (38-126) U/L Total Protein (6.3-8.2) g/dL Crossmatch Assessment and Plan Assessment: Assessment #1 CAD and status post LAD stenting #2 severe mitral regurgitation and status post repair #3 multiple comorbid conditions including hypertension and dyslipidemia Plan #1 monitor the liver function test #2 start the patient on hydralazine at 10 mg by mouth 3 times a day #3 monitor the kidney function and electrolytes #4 follow-up with the patient
--- NOTE | 2018-11-03 07:43 | P.PN ---
Subjective Progress Note Date: 11/03/18 Principal diagnosis: Coronary artery disease This a very pleasant 73-year-old gentleman who has a history of coronary artery disease with a recent stent placement to the LAD on 09/24/2018, chronic diastolic congestive heart failure, hypertension, hyperlipidemia, diabetes mellitus type 2 with peripheral neuropathy, chronic kidney disease, obstructive sleep apnea not utilizing CPAP in the outpatient setting, pulmonary hypertension, obesity, osteoarthritis, significant pipe smoking however denied any inhalation with the pipe. His FEV1 value is 54% of predicted. He was also found to have severe mitral valve regurgitation and has been seen by cardiothoracic surgery. The plan is for mitral valve repair/replacement to be performed on 10/31/[address] Lozada. He is seen again today in follow-up on the selective care unit. He is currently sitting up in a chair at the bedside. Awake and alert in no acute distress. No shortness of breath, cough or congestion. No chest pain or palpitations. Maintaining good O2 saturations in the 90s on room air. He's been afebrile. Hemodynamically stable. Urine culture reveals no growth. White count 6.2. Hemoglobin 13.7. Creatinine 2.05. He has been practicing with the incentive spirometer. The patient is seen today 11/03/2017 in follow-up in the intensive care unit. He is postoperative day #3 for mitral valve repair. He has had ongoing issues with hypoxemia. He is currently on BiPAP 12/5 and 50% FiO2. He is on a Lasix drip at 20 mg per hour, lactated Ringer's at 20 ML's per hour, clevidipine at 4 mg per hour and a insulin drip at 5 units per hour. Chest x-ray shows cardiomegaly some mild improvement in the bilateral pleural effusions and bibasilar atelectasis. White count 9.2. Hemoglobin 8.0. Creatinine 3.60. AST 3549, ALT 1277, alk phos 37. Objective - Vital Signs Vital signs: Vital Signs Temp 99.2 F 11/03/18 00:00 Pulse 78 11/03/18 07:24 Resp 20 11/03/18 07:00 BP 101/60 11/02/18 16:00 Pulse Ox 96 11/03/18 07:00 Intake & Output 11/02/18 11/03/18 11/03/18 18:59 06:59 18:59 Intake Total 1036.599 755.548 29.574 Output Total 1230 2306 183 Balance -193.401 -1550.452 -153.426 Weight 102 kg Intake: IV 366 276 23 CO/CI 30 Lactated Ringers 1,000 ml 240 240 20 @ 20 mls/hr IV .Q24H [facility] Rx#:[id number] pressure bag 96 36 3 Intake, IV Titration 360.599 479.548 6.574 Amount Clevidipine Butyrate 25 100.000 227.633 4.133 mg In Empty Bag 1 bag @ 1 MG/HR 2 mls/hr IV .Q24H [facility] Rx#:[id number] Furosemide 100 mg In 200 200 Sodium Chloride 0.9% 90 ml @ 20 MG/HR 20 mls/hr IV .Q5H [facility] Rx#:[id number] Insulin Regular 100 unit 60.599 51.915 2.441 In Sodium Chloride 0.9% 100 ml @ Per Protocol IV .Q0M [facility] Rx#:[id number] Blood Product 310 Rc As-1 Unit 310 [id number] Output: Chest Tube Drainage 110 96 8 Chest Tube Left Pleural/ 110 96 8 Mediastinal Urine 1120 2210 175 Other: Voiding Method Indwelling Catheter Indwelling Catheter ABP, PAP, CO, CI - Last Documented Arterial Blood Pressure 153/54 Pulmonary Artery Pressure 52/22 Cardiac Output 7.5 Cardiac Index 3.6 - Exam GENERAL EXAM: Pleasant 73-year-old gentleman. Remains on BiPAP 12/5 and 50% FiO2. Currently comfortable in no apparent distress. HEAD: Normocephalic. EYES: Sluggish reaction of pupils, equal size. NOSE: Clear with pink turbinates. THROAT: Oral endotracheal and gastric tube secured in place. No erythema or exudates. NECK: No masses, no JVD. CHEST: Sternal dressing dry and intact. Mediastinal and left chest tubes in place. LUNGS: Equal air entry with crackles in the posterior bases. CVS: S1 and S2 normal with no audible murmur, regular rhythm. ABDOMEN: No hepatosplenomegaly, normal bowel sounds, no guarding or rigidity. SPINE: No scoliosis or deformity SKIN: No rashes CENTRAL NERVOUS SYSTEM: No focal deficits, tone is normal in all 4 extremities. EXTREMITIES: Sequential compression devices in place. There is trace peripheral edema. No clubbing, no cyanosis. Peripheral pulses are intact. - Labs CBC & Chem 7: 11/03/18 04:08 11/03/18 04:08 Labs: Abnormal Lab Results - Last 24 Hours (Table) 11/02/18 11/02/18 11/02/18 Range/Units 08:15 08:18 09:18 RBC (4.30-5.90) m/uL Hgb (13.0-17.5) gm/dL Hct (39.0-53.0) % RDW (11.5-15.5) % Neutrophils # (1.3-7.7) k/uL Lymphocytes # (1.0-4.8) k/uL ABG pH (7.35-7.45) ABG pCO2 (35-45) mmHg ABG O2 Saturation (94-97) % BUN (9-20) mg/dL Creatinine (0.66-1.25) mg/dL Glucose (74-99) mg/dL POC Glucose (mg/dL) 124 H 101 H (75-99) mg/dL Calcium (8.4-10.2) mg/dL AST (17-59) U/L ALT (21-72) U/L Alkaline Phosphatase (38-126) U/L Total Protein (6.3-8.2) g/dL Crossmatch See Detail 11/02/18 11/02/18 11/02/18 Range/Units 10:30 11:01 12:10 RBC (4.30-5.90) m/uL Hgb (13.0-17.5) gm/dL Hct (39.0-53.0) % RDW (11.5-15.5) % Neutrophils # (1.3-7.7) k/uL Lymphocytes # (1.0-4.8) k/uL ABG pH (7.35-7.45) ABG pCO2 (35-45) mmHg ABG O2 Saturation (94-97) % BUN (9-20) mg/dL Creatinine (0.66-1.25) mg/dL Glucose (74-99) mg/dL POC Glucose (mg/dL) 109 H 120 H 154 H (75-99) mg/dL Calcium (8.4-10.2) mg/dL AST (17-59) U/L ALT (21-72) U/L Alkaline Phosphatase (38-126) U/L Total Protein (6.3-8.2) g/dL Crossmatch 11/02/18 11/02/18 11/02/18 Range/Units 13:12 13:17 14:26 RBC (4.30-5.90) m/uL Hgb (13.0-17.5) gm/dL Hct (39.0-53.0) % RDW (11.5-15.5) % Neutrophils # (1.3-7.7) k/uL Lymphocytes # (1.0-4.8) k/uL ABG pH 7.46 H (7.35-7.45) ABG pCO2 31 L (35-45) mmHg ABG O2 Saturation 97.8 H (94-97) % BUN (9-20) mg/dL Creatinine (0.66-1.25) mg/dL Glucose (74-99) mg/dL POC Glucose (mg/dL) 168 H 149 H (75-99) mg/dL Calcium (8.4-10.2) mg/dL AST (17-59) U/L ALT (21-72) U/L Alkaline Phosphatase (38-126) U/L Total Protein (6.3-8.2) g/dL Crossmatch 11/02/18 11/02/18 11/02/18 Range/Units 16:02 17:23 17:37 RBC (4.30-5.90) m/uL Hgb (13.0-17.5) gm/dL Hct (39.0-53.0) % RDW (11.5-15.5) % Neutrophils # (1.3-7.7) k/uL Lymphocytes # (1.0-4.8) k/uL ABG pH (7.35-7.45) ABG pCO2 (35-45) mmHg ABG O2 Saturation (94-97) % BUN (9-20) mg/dL Creatinine (0.66-1.25) mg/dL Glucose (74-99) mg/dL POC Glucose (mg/dL) 107 H 129 H 115 H (75-99) mg/dL Calcium (8.4-10.2) mg/dL AST (17-59) U/L ALT (21-72) U/L Alkaline Phosphatase (38-126) U/L Total Protein (6.3-8.2) g/dL Crossmatch 11/02/18 11/02/18 11/02/18 Range/Units 18:10 18:22 19:09 RBC 2.48 L (4.30-5.90) m/uL Hgb 7.8 L D (13.0-17.5) gm/dL Hct 22.8 L (39.0-53.0) % RDW 15.7 H (11.5-15.5) % Neutrophils # (1.3-7.7) k/uL Lymphocytes # (1.0-4.8) k/uL ABG pH (7.35-7.45) ABG pCO2 (35-45) mmHg ABG O2 Saturation (94-97) % BUN (9-20) mg/dL Creatinine (0.66-1.25) mg/dL Glucose (74-99) mg/dL POC Glucose (mg/dL) 100 H 104 H (75-99) mg/dL Calcium (8.4-10.2) mg/dL AST (17-59) U/L ALT (21-72) U/L Alkaline Phosphatase (38-126) U/L Total Protein (6.3-8.2) g/dL Crossmatch 11/02/18 11/02/18 11/02/18 Range/Units 20:13 20:57 22:01 RBC (4.30-5.90) m/uL Hgb (13.0-17.5) gm/dL Hct (39.0-53.0) % RDW (11.5-15.5) % Neutrophils # (1.3-7.7) k/uL Lymphocytes # (1.0-4.8) k/uL ABG pH (7.35-7.45) ABG pCO2 (35-45) mmHg ABG O2 Saturation (94-97) % BUN (9-20) mg/dL Creatinine (0.66-1.25) mg/dL Glucose (74-99) mg/dL POC Glucose (mg/dL) 133 H 152 H 166 H (75-99) mg/dL Calcium (8.4-10.2) mg/dL AST (17-59) U/L ALT (21-72) U/L Alkaline Phosphatase (38-126) U/L Total Protein (6.3-8.2) g/dL Crossmatch 11/02/18 11/02/18 11/03/18 Range/Units 23:02 23:58 01:04 RBC (4.30-5.90) m/uL Hgb (13.0-17.5) gm/dL Hct (39.0-53.0) % RDW (11.5-15.5) % Neutrophils # (1.3-7.7) k/uL Lymphocytes # (1.0-4.8) k/uL ABG pH (7.35-7.45) ABG pCO2 (35-45) mmHg ABG O2 Saturation (94-97) % BUN (9-20) mg/dL Creatinine (0.66-1.25) mg/dL Glucose (74-99) mg/dL POC Glucose (mg/dL) 170 H 167 H 165 H (75-99) mg/dL Calcium (8.4-10.2) mg/dL AST (17-59) U/L ALT (21-72) U/L Alkaline Phosphatase (38-126) U/L Total Protein (6.3-8.2) g/dL Crossmatch 11/03/18 11/03/18 11/03/18 Range/Units 02:01 03:58 04:08 RBC 2.58 L (4.30-5.90) m/uL Hgb 8.0 L (13.0-17.5) gm/dL Hct 23.5 L (39.0-53.0) % RDW 16.6 H (11.5-15.5) % Neutrophils # 7.8 H (1.3-7.7) k/uL Lymphocytes # 0.9 L (1.0-4.8) k/uL ABG pH (7.35-7.45) ABG pCO2 (35-45) mmHg ABG O2 Saturation (94-97) % BUN (9-20) mg/dL Creatinine (0.66-1.25) mg/dL Glucose (74-99) mg/dL POC Glucose (mg/dL) 158 H 140 H (75-99) mg/dL Calcium (8.4-10.2) mg/dL AST (17-59) U/L ALT (21-72) U/L Alkaline Phosphatase (38-126) U/L Total Protein (6.3-8.2) g/dL Crossmatch 11/03/18 11/03/18 11/03/18 Range/Units 04:08 04:59 06:04 RBC (4.30-5.90) m/uL Hgb (13.0-17.5) gm/dL Hct (39.0-53.0) % RDW (11.5-15.5) % Neutrophils # (1.3-7.7) k/uL Lymphocytes # (1.0-4.8) k/uL ABG pH (7.35-7.45) ABG pCO2 (35-45) mmHg ABG O2 Saturation (94-97) % BUN 76 H (9-20) mg/dL Creatinine 3.60 H (0.66-1.25) mg/dL Glucose 132 H (74-99) mg/dL POC Glucose (mg/dL) 137 H 127 H (75-99) mg/dL Calcium 8.3 L (8.4-10.2) mg/dL AST 3549 H (17-59) U/L ALT 1277 H (21-72) U/L Alkaline Phosphatase 37 L (38-126) U/L Total Protein 5.9 L (6.3-8.2) g/dL Crossmatch 11/03/18 Range/Units 06:56 RBC (4.30-5.90) m/uL Hgb (13.0-17.5) gm/dL Hct (39.0-53.0) % RDW (11.5-15.5) % Neutrophils # (1.3-7.7) k/uL Lymphocytes # (1.0-4.8) k/uL ABG pH (7.35-7.45) ABG pCO2 (35-45) mmHg ABG O2 Saturation (94-97) % BUN (9-20) mg/dL Creatinine (0.66-1.25) mg/dL Glucose (74-99) mg/dL POC Glucose (mg/dL) 117 H (75-99) mg/dL Calcium (8.4-10.2) mg/dL AST (17-59) U/L ALT (21-72) U/L Alkaline Phosphatase (38-126) U/L Total Protein (6.3-8.2) g/dL Crossmatch Assessment and Plan Assessment: Impression: #1 Severe mitral valve regurgitation with severely calcified mitral annulus, torn chordae to P1 posterior leaflet. He is status post complex mitral valve repair with resection of torn chordae to P1, posterior leaflet plication of P1 and P2, small resection P1-P2 leaflet, plication of both anterior mitral trigones, clip ligation of left atrial appendage. Post operative day #3. #2 Coronary artery disease with recent stent placement to the LAD on 09/24/2018. #3 Acute hypoxic respiratory failure secondary to an acute exacerbation of chronic diastolic congestive heart failure. And a Lasix drip at 20 mg per hour. #4 Diabetes mellitus, type II. #5 Diabetic peripheral neuropathy. #6 Obesity. #7 Obstructive sleep apnea not on home CPAP. #8 Pulmonary hypertension. #9 History of significant pipe smoking without inhalation. FEV1 value of 54% predicted. #10 Hypertension. #11 Hyperlipidemia. #12 Osteoarthritis. #13 Elevated liver function testing. #14 Acute renal failure current creatinine 3.60. Plan: The patient was seen and evaluated by Dr. Celis. Chest x-ray, labs all reviewed. Continue current medications. Continue to utilize BiPAP as needed. Increase his activity as tolerated. Increase the use of the incentive spirometer and cough and deep breathing exercises. Continue bronchodilators. We'll continue to follow and make further recommendations based on his clinical status. Critical care time 35 minutes. I, the cosigning physician, performed a history & physical examination of the patient. Lungs sounds crackles in the posterior bases. Maintaining good O2 saturations in the 90s on 50% FiO2 and BiPAP 12/5. I discussed the assessment and plan of care with my nurse practitioner, Valerie Kaur. I attest to the above note as dictated by her. Time with Patient: Greater than 30
--- NOTE | 2018-11-03 07:48 | XR ---
EXAMINATION TYPE: XR chest 1V portable DATE OF EXAM: 11/03/2018 COMPARISON: 11/02/2018 HISTORY: Postoperative TECHNIQUE: Single frontal view of the chest is obtained. FINDINGS: Heart is enlarged and is postsurgical changes. Bilateral subsegmental consolidation. Sizab le pneumothorax. IMPRESSION: 1. Postsurgical changes with improving bilateral infiltrate or atelectasis and small effusion. Improv ing interstitium suggestive reducing venous congestion
[2018-11-03 08:01] LABS: Glucose,Whole Blood 119 mg/dL (75-99)
[2018-11-03] MEDS: ASPIRIN 325 MG TAB PO SCH (09:00)
[2018-11-03] MEDS: HEPARIN SODIUM,PORCINE 5,000 UNIT/ML 1 ML VIAL SQ SCH ×3 (09:00→23:24)
[2018-11-03] MEDS: hydrALAZINE HCL 10 MG TAB PO SCH ×3 (09:00→22:14)
[2018-11-03] MEDS: PANTOPRAZOLE 40 MG TABLET PO SCH (09:01)
[2018-11-03] MEDS: CHOLECALCIFEROL 1,000 UNIT TAB PO SCH (09:01)
[2018-11-03] MEDS: CLOPIDOGREL 75 MG TAB PO SCH (09:01)
[2018-11-03] MEDS: METOPROLOL TARTRATE 25 MG TAB PO SCH ×2 (09:01→20:31)
[2018-11-03] MEDS: MULTIVITAMINS, THERA 1 EACH TAB PO SCH (09:01)
[2018-11-03] MEDS: FERROUS SULFATE 325 MG TAB PO SCH (09:02)
[2018-11-03] MEDS: METOLAZONE 5 MG TAB PO SCH (09:02)
[2018-11-03] MEDS: SODIUM CHLORIDE 0.9% 500 ML 500 ML IV SCH (09:02)
[2018-11-03 09:15] LABS: Glucose,Whole Blood 149 mg/dL (75-99)
[2018-11-03 10:15] LABS: Glucose,Whole Blood 175 mg/dL (75-99)
--- NOTE | 2018-11-03 10:42 | P.PN ---
Subjective Progress Note Date: 11/03/18 Principal diagnosis: Severe eccentric mitral valve regurgitation, severely calcified mitral annulus, torn chordae to P1 posterior leaflet, past medical history significant for radha nary artery disease with recent drug-eluting stent placed to his left anterior descending coronary artery on 09/24/2018, chronic diastolic heart congestive failure, hypertension, hyperlipidemia, type 2 diabetes mellitus with peripheral neuropathy, chronic kidney disease with creatinine baseline around 2, obstructive sleep apnea without home CPAP use, pulmonary hypertension, obesity, osteoarthritis, remote history of tobacco dependence. POD #3 complex mitral valve repair with resection of torn chordae to P1, posterior leaflet plication of P1 and P2, small resection P1P2 leaflet, plication of both anterior mitral trigones, clip ligation of the left atrial appendage with a 35 mm Atriclip an intraoperative transesophageal echocardiogram. Postoperative acute blood loss anemia, an expected outcome due to cardiopulmonary bypass and hemodilution. Postoperative transaminitis with elevation of his AST and ALT, an unexpected outcome. The patient is currently laying in bed in the intensive care unit. He is in no acute distress. He currently denies any complaints of pain or shortness of br eath. The patient seems more alert this morning and is oriented 3. He remains afebrile, hemodynamically stable and is currently on no inotropic or pressor support. Cleviprex is at 2 mg per hour due to some hypertension. His hemoglobin this morning is 8.0 and was transfused 1 unit of packed red blood cells yesterday. Lasix drip remains at 20 mg per hour and his output has been 1.4 L in the last 8 hours. He is complaining of generalized weakness, and is moving all 4 extremities appropriately. Right IJ cordis remain in place with continuous CVP monitoring, current CVP pressures 14. Oxygen saturation are 97% on 10 L high flow nasal cannula oxygen. He is giving a good effort on his chago ntive spirometry and is achieving about 500 mL. mediastinal and left pleural chest tubes remain in place to low continuous wall suction -20 cm H2O draining thin serosanguineous drainage and no air leak is present. His chest tubes drained 50 mL output in the last 8 hours, 200 mL output in the last 24 hours. Objective - Vital Signs Vital signs: Vital Signs Temp 99.4 F 11/03/18 08:00 Pulse 68 11/03/18 10:00 Resp 22 11/03/18 10:00 BP 135/64 11/03/18 09:00 Pulse Ox 96 11/03/18 10:00 Intake & Output 11/02/18 11/03/18 11/03/18 18:59 06:59 18:59 Intake Total 1036.599 755.548 214.201 Output Total 1230 2306 1108 Balance -193.401 -1550.452 -893.799 Weight 102 kg Intake: IV 366 276 92 CO/CI 30 Lactated Ringers 1,000 ml 240 240 80 @ 20 mls/hr IV .Q24H JAIME Rx#:[id number] pressure bag 96 36 12 Intake, IV Titration 360.599 479.548 122.201 Amount Clevidipine Butyrate 25 100.000 227.633 17.266 mg In Empty Bag 1 bag @ 1 MG/HR 2 mls/hr IV .Q24H JAIME Rx#:[id number] Furosemide 100 mg In 200 200 94.667 Sodium Chloride 0.9% 90 ml @ 20 MG/HR 20 mls/hr IV .Q5H JAIME Rx#:[id number] Insulin Regular 100 unit 60.599 51.915 10.268 In Sodium Chloride 0.9% 100 ml @ Per Protocol IV .Q0M JAIME Rx#:[id number] Blood Product 310 Rc As-1 Unit 310 [id number] Output: Chest Tube Drainage 110 96 13 Chest Tube Left Pleural/ 110 96 13 Mediastinal Urine 1120 2210 1095 Other: Voiding Method Indwelling Catheter Indwelling Catheter Indwelling Catheter ABP, PAP, CO, CI - Last Documented Arterial Blood Pressure 121/46 Pulmonary Artery Pressure 52/22 Cardiac Output 7.5 Cardiac Index 3.6 - Constitutional General appearance: Present: cooperative, no acute distress, obese - Respiratory Details: Lung sounds with few scattered crackles to his bilateral bases, lung sounds are also diminished to his bilateral bases. Respirations are symmetrical and nonlabored. Oxygen saturation are 97% on 10 L high flow nasal cannula. The tubing 500 mL on his incentive spirometry. Left pleural and mediastinal chest tubes in place to low continuous wall suction -20 cm H2O. No air leak is present. Draining thin so sinus drainage. - Cardiovascular Details: Regular rhythm and rate. S1 and S2 present, negative for S3, gallop or murmur. Sternum is stable. Bedside telemetry showing normal sinus rhythm heart rate 74. Ventricular epicardial pacemaker wires in place and grounded. Heart hugger is in place and he is demonstrating appropriate use. Knee-high GUERRERO hose and sequential compression devices are in place to his bilateral lower extremities. +1 generalized edema. Lasix drip remains at 20 mg per hour. - Gastrointestinal Gastrointestinal Comment(s): Abdomen is soft, nontender and nondistended. Active bowel sounds present in all 4 abdominal quadrants. No guarding or rigidity. No megaly appreciated. Tolerating minimal oral intake. - Genitourinary Genitourinary Comment(s): Burrell catheter for accurate I&O. Draining clear yellow urine. 1.4 L output in the last 8 hours. Lasix drip remains at 20 mg per hour. - Integumentary Integumentary Comment(s): Skin is warm and dry. No clubbing or cyanosis is present. Midline sternal in cision is clean, dry and approximated. No drainage or redness is present. Gauze dressing is clean, dry and intact. No rash or abnormal pigmentation is present. - Neurologic Neurologic Comment(s): No focal deficits. Neurologic: Present: CNII-XII intact - Psychiatric Psychiatric Comment(s): Intermittent episodes of confusion. Psychiatric: Present: A&O x's 3, appropriate affect, intact judgment & insight - Allied health notes Allied health notes reviewed: nursing - Labs CBC & Chem 7: 11/03/18 04:08 11/03/18 04:08 Labs: Abnormal Lab Results - Last 24 Hours (Table) 11/02/18 11/02/18 11/02/18 Range/Units 08:15 10:30 11:01 RBC (4.30-5.90) m/uL Hgb (13.0-17.5) gm/dL Hct (39.0-53.0) % RDW (11.5-15.5) % Neutrophils # (1.3-7.7) k/uL Lymphocytes # (1.0-4.8) k/uL ABG pH (7.35-7.45) ABG pCO2 (35-45) mmHg ABG O2 Saturation (94-97) % BUN (9-20) mg/dL Creatinine (0.66-1.25) mg/dL Glucose (74-99) mg/dL POC Glucose (mg/dL) 109 H 120 H (75-99) mg/dL Calcium (8.4-10.2) mg/dL AST (17-59) U/L ALT (21-72) U/L Alkaline Phosphatase (38-126) U/L Total Protein (6.3-8.2) g/dL Crossmatch See Detail 11/02/18 11/02/18 11/02/18 Range/Units 12:10 13:12 13:17 RBC (4.30-5.90) m/uL Hgb (13.0-17.5) gm/dL Hct (39.0-53.0) % RDW (11.5-15.5) % Neutrophils # (1.3-7.7) k/uL Lymphocytes # (1.0-4.8) k/uL ABG pH 7.46 H (7.35-7.45) ABG pCO2 31 L (35-45) mmHg ABG O2 Saturation 97.8 H (94-97) % BUN (9-20) mg/dL Creatinine (0.66-1.25) mg/dL Glucose (74-99) mg/dL POC Glucose (mg/dL) 154 H 168 H (75-99) mg/dL Calcium (8.4-10.2) mg/dL AST (17-59) U/L ALT (21-72) U/L Alkaline Phosphatase (38-126) U/L Total Protein (6.3-8.2) g/dL Crossmatch 11/02/18 11/02/18 11/02/18 Range/Units 14:26 16:02 17:23 RBC (4.30-5.90) m/uL Hgb (13.0-17.5) gm/dL Hct (39.0-53.0) % RDW (11.5-15.5) % Neutrophils # (1.3-7.7) k/uL Lymphocytes # (1.0-4.8) k/uL ABG pH (7.35-7.45) ABG pCO2 (35-45) mmHg ABG O2 Saturation (94-97) % BUN (9-20) mg/dL Creatinine (0.66-1.25) mg/dL Glucose (74-99) mg/dL POC Glucose (mg/dL) 149 H 107 H 129 H (75-99) mg/dL Calcium (8.4-10.2) mg/dL AST (17-59) U/L ALT (21-72) U/L Alkaline Phosphatase (38-126) U/L Total Protein (6.3-8.2) g/dL Crossmatch 11/02/18 11/02/18 11/02/18 Range/Units 17:37 18:10 18:22 RBC 2.48 L (4.30-5.90) m/uL Hgb 7.8 L D (13.0-17.5) gm/dL Hct 22.8 L (39.0-53.0) % RDW 15.7 H (11.5-15.5) % Neutrophils # (1.3-7.7) k/uL Lymphocytes # (1.0-4.8) k/uL ABG pH (7.35-7.45) ABG pCO2 (35-45) mmHg ABG O2 Saturation (94-97) % BUN (9-20) mg/dL Creatinine (0.66-1.25) mg/dL Glucose (74-99) mg/dL POC Glucose (mg/dL) 115 H 100 H (75-99) mg/dL Calcium (8.4-10.2) mg/dL AST (17-59) U/L ALT (21-72) U/L Alkaline Phosphatase (38-126) U/L Total Protein (6.3-8.2) g/dL Crossmatch 11/02/18 11/02/18 11/02/18 Range/Units 19:09 20:13 20:57 RBC (4.30-5.90) m/uL Hgb (13.0-17.5) gm/dL Hct (39.0-53.0) % RDW (11.5-15.5) % Neutrophils # (1.3-7.7) k/uL Lymphocytes # (1.0-4.8) k/uL ABG pH (7.35-7.45) ABG pCO2 (35-45) mmHg ABG O2 Saturation (94-97) % BUN (9-20) mg/dL Creatinine (0.66-1.25) mg/dL Glucose (74-99) mg/dL POC Glucose (mg/dL) 104 H 133 H 152 H (75-99) mg/dL Calcium (8.4-10.2) mg/dL AST (17-59) U/L ALT (21-72) U/L Alkaline Phosphatase (38-126) U/L Total Protein (6.3-8.2) g/dL Crossmatch 11/02/18 11/02/18 11/02/18 Range/Units 22:01 23:02 23:58 RBC (4.30-5.90) m/uL Hgb (13.0-17.5) gm/dL Hct (39.0-53.0) % RDW (11.5-15.5) % Neutrophils # (1.3-7.7) k/uL Lymphocytes # (1.0-4.8) k/uL ABG pH (7.35-7.45) ABG pCO2 (35-45) mmHg ABG O2 Saturation (94-97) % BUN (9-20) mg/dL Creatinine (0.66-1.25) mg/dL Glucose (74-99) mg/dL POC Glucose (mg/dL) 166 H 170 H 167 H (75-99) mg/dL Calcium (8.4-10.2) mg/dL AST (17-59) U/L ALT (21-72) U/L Alkaline Phosphatase (38-126) U/L Total Protein (6.3-8.2) g/dL Crossmatch 11/03/18 11/03/18 11/03/18 Range/Units 01:04 02:01 03:58 RBC (4.30-5.90) m/uL Hgb (13.0-17.5) gm/dL Hct (39.0-53.0) % RDW (11.5-15.5) % Neutrophils # (1.3-7.7) k/uL Lymphocytes # (1.0-4.8) k/uL ABG pH (7.35-7.45) ABG pCO2 (35-45) mmHg ABG O2 Saturation (94-97) % BUN (9-20) mg/dL Creatinine (0.66-1.25) mg/dL Glucose (74-99) mg/dL POC Glucose (mg/dL) 165 H 158 H 140 H (75-99) mg/dL Calcium (8.4-10.2) mg/dL AST (17-59) U/L ALT (21-72) U/L Alkaline Phosphatase (38-126) U/L Total Protein (6.3-8.2) g/dL Crossmatch 11/03/18 11/03/18 11/03/18 Range/Units 04:08 04:08 04:59 RBC 2.58 L (4.30-5.90) m/uL Hgb 8.0 L (13.0-17.5) gm/dL Hct 23.5 L (39.0-53.0) % RDW 16.6 H (11.5-15.5) % Neutrophils # 7.8 H (1.3-7.7) k/uL Lymphocytes # 0.9 L (1.0-4.8) k/uL ABG pH (7.35-7.45) ABG pCO2 (35-45) mmHg ABG O2 Saturation (94-97) % BUN 76 H (9-20) mg/dL Creatinine 3.60 H (0.66-1.25) mg/dL Glucose 132 H (74-99) mg/dL POC Glucose (mg/dL) 137 H (75-99) mg/dL Calcium 8.3 L (8.4-10.2) mg/dL AST 3549 H (17-59) U/L ALT 1277 H (21-72) U/L Alkaline Phosphatase 37 L (38-126) U/L Total Protein 5.9 L (6.3-8.2) g/dL Crossmatch 11/03/18 11/03/18 11/03/18 Range/Units 06:04 06:56 07:57 RBC (4.30-5.90) m/uL Hgb (13.0-17.5) gm/dL Hct (39.0-53.0) % RDW (11.5-15.5) % Neutrophils # (1.3-7.7) k/uL Lymphocytes # (1.0-4.8) k/uL ABG pH (7.35-7.45) ABG pCO2 (35-45) mmHg ABG O2 Saturation (94-97) % BUN (9-20) mg/dL Creatinine (0.66-1.25) mg/dL Glucose (74-99) mg/dL POC Glucose (mg/dL) 127 H 117 H 119 H (75-99) mg/dL Calcium (8.4-10.2) mg/dL AST (17-59) U/L ALT (21-72) U/L Alkaline Phosphatase (38-126) U/L Total Protein (6.3-8.2) g/dL Crossmatch 11/03/18 11/03/18 Range/Units 09:12 10:10 RBC (4.30-5.90) m/uL Hgb (13.0-17.5) gm/dL Hct (39.0-53.0) % RDW (11.5-15.5) % Neutrophils # (1.3-7.7) k/uL Lymphocytes # (1.0-4.8) k/uL ABG pH (7.35-7.45) ABG pCO2 (35-45) mmHg ABG O2 Saturation (94-97) % BUN (9-20) mg/dL Creatinine (0.66-1.25) mg/dL Glucose (74-99) mg/dL POC Glucose (mg/dL) 149 H 175 H (75-99) mg/dL Calcium (8.4-10.2) mg/dL AST (17-59) U/L ALT (21-72) U/L Alkaline Phosphatase (38-126) U/L Total Protein (6.3-8.2) g/dL Crossmatch - Imaging and Cardiology Chest x-ray: report reviewed, image reviewed Assessment and Plan Assessment: 1. Severe eccentric mitral valve regurgitation, severely calcified mitral annulus, performed chordee to P1 posterior leaflet, status post mitral valve repair 2. Coronary artery disease with recent drug-eluting stent to the LAD on 09/24/2018 3. Chronic diastolic heart failure 4. Hypertension 5. Hyperlipidemia 6. Type 2 diabetes mellitus with peripheral neuropathy 7. Chronic kidney disease with creatinine baseline around 2 8. Obstructive sleep apnea without home CPAP use 9. Pulmonary hypertension 10. Obesity 11. Osteoarthritis 12. Remote history of tobacco dependence 13. Postoperative acute blood loss anemia, an expected outcome 14. Postoperative transaminitis with elevation of his AST and ALT, an unexpected outcome Plan: 1. Continue aspirin, Plavix, and beta sun. Will increase his beta sun as tolerated.. 2. We will start the patient on hydralazine 10 mg by mouth 3 times a day, wean Cleviprex drip as tolerated. 3. Wean O2/BiPAP as tolerated. BiPAP management per Dr. Celis's recomm endations. Encourage incentive spirometry use 10 times every hour while awake. 4. Increase activity, ambulate as tolerated. PT/OT/cardiac rehab following. 5. Will monitor daily labs and chest x-rays. Electrolyte replacement per protocol. 6. Bronchodilators per pulmonology management. 7. Pain control with current medication regimen. Avoid Toradol due to his renal function. 8. Insulin management per primary care service. 9. Discontinue mediastinal and left pleural chest tubes. 10. Continue left radial arterial line and Burrell catheter. 11. Continue Lasix drip at 20 mg per hour, and Zaroxolyn 5 mg by mouth daily. 13. Avoid nephrotoxic medications. 14. Encourage continued cessation of tobacco. 15. Continue to hold Lipitor due to his elevation of his AST and ALT, start the Lipitor once his liver enzymes have normalized. 16. Remove ventricular epicardial pacemaker wires, bedrest for 1 hour post pacemaker wire removal. 17. More recommendations to follow based on patient's clinical course. Epicardial pacemaker wires removed without incident at 8:15 AM today. He will be on bedrest for 1 hour post pacemaker wire removal. Mediastinal left pleural chest tubes removed without incident at 10:20 AM. 4 x 4 gauze and impregnated Vaseline gauze to cover and secured with tape. Time with Patient: Greater than 30
[2018-11-03 11:23] LABS: Glucose,Whole Blood 148 mg/dL (75-99)
[2018-11-03 12:21] LABS: Glucose,Whole Blood 129 mg/dL (75-99)
[2018-11-03 13:22] LABS: Glucose,Whole Blood 107 mg/dL (75-99)
[2018-11-03 14:12] LABS: Glucose,Whole Blood 76 mg/dL (75-99)
[2018-11-03 14:12] LABS: Glucose,Whole Blood 74 mg/dL (75-99)
[2018-11-03] MEDS: ASCORBIC ACID 500 MG TAB PO SCH (14:16)
[2018-11-03 15:10] LABS: Glucose,Whole Blood 117 mg/dL (75-99)
[2018-11-03 15:39] LABS: Calcium 8.4 mg/dL (8.4-10.2); Potassium 4.2 mmol/L (3.5-5.1)
[2018-11-03 16:40] LABS: Glucose,Whole Blood 130 mg/dL (75-99)
[2018-11-03 17:13] LABS: Glucose,Whole Blood 150 mg/dL (75-99)
[2018-11-03 18:24] LABS: Glucose,Whole Blood 135 mg/dL (75-99)
[2018-11-03 19:15] LABS: Glucose,Whole Blood 167 mg/dL (75-99)
--- NOTE | 2018-11-03 20:23 | PN ---
PROGRESS NOTE DATE OF SERVICE: 11/03/2018. This 73-year-old gentleman who was admitted after mitral valve replacement is being closely monitored. No chest pain. No palpitations. No fever. EXAM: Alert and oriented times three. Pulse is 69, blood pressure 119/49, respiration 14, temperature normal, pulse ox 98% on room air. HEENT: Conjunctivae normal. NECK: No JVD. CARDIOVASCULAR: S1, S2 muffled. RESPIRATIONS: Breath sounds diminished in the bases. A few scattered rhonchi and crackles. ABDOMEN are soft. NERVOUS SYSTEM: No focal deficits. LABS: Creatinine is 3.45. The previous creatinine was 3.28. PAST MEDICAL HISTORY: Reviewed. REVIEW OF SYSTEMS: CARDIOVASCULAR: No angina or palpitations. RESPIRATORY: As mentioned earlier. no dysuria. NERVOUS SYSTEM: No numbness or weakness. CURRENT MEDICATIONS: Reviewed and include: 1. Tylenol 1000 mg q.6h p.r.n. 2. DuoNeb q.i.d. and p.r.n. 3. Amiodarone drip. 4. Vitamin C. 5. Aspirin. 6. Cepacol. 7. Dulcolax. 8. Calcium gluconate. 9. Plavix. 10.Clevidipine. 11.Lasix. 12.Milk of magnesia. 13.Zaroxolyn. 14.Lopressor. 15.P.r.n. medications reviewed and dose also reviewed. ASSESSMENT: 1. Status post mitral valve repair for severe mitral regurgitation. 2. History of recent coronary artery disease/stent. 3. Severe pulmonary hypertension. 4. Acute on chronic renal failure. 5. Chronic renal failure stage 3 baseline. 6. History of chronic diastolic dysfunction, congestive heart failure. 7. Hyperlipidemia. 8. History of gastroesophageal reflux disease. 9. Diabetes type 2. 10.Atelectasis. RECOMMENDATIONS AND DISCUSSION: Recommend to continue current medications, continue to monitor. Symptomatic treatment. Otherwise, the patient is also on amiodarone drip at this time. We will continue with Lasix. Monitor fluid and electrolytes balance closely. The most recent chest x-ray done today which was reviewed by me showed postsurgical changes. We will continue to monitor the renal function. Avoid nephrotoxic medications. If renal function continues to worsen, I would also recommend nephrology evaluation also. Continue to monitor. MMODL / IJN: [id number] /
[2018-11-03] MEDS: SENNOSIDES-DOCUSATE SODIUM 1 EACH TAB PO SCH (20:31)
[2018-11-03 20:38] LABS: Glucose,Whole Blood 172 mg/dL (75-99)
[2018-11-03] MEDS: INSULIN ASPART (NovoLOG) 100 UNIT/ML VIAL SQ SCH (20:41)
[2018-11-03] MEDS: INSULIN DETEMIR (LEVEMIR) 100 UNIT/ML SYR SQ SCH (22:00)
[2018-11-03 23:55] LABS: Glucose,Whole Blood 139 mg/dL (75-99)
[2018-11-04 02:00] LABS: Glucose,Whole Blood 128 mg/dL (75-99)
[2018-11-04] MEDS: INSULIN ASPART (NovoLOG) 100 UNIT/ML VIAL SQ SCH ×8 (02:47→20:17)
[2018-11-04 03:03] LABS: HCT 24.9 % (39.0-53.0); HGB 8.4 gm/dL (13.0-17.5); MCHC 33.7 g/dL (31.0-37.0); MCV 92.1 fL (80.0-100.0); Mean Platelet Volume 8.4; Platelet Count 178 k/uL (150-450); RBC 2.71 m/uL (4.30-5.90); RDW 15.4 % (11.5-15.5); WBC 9.2 k/uL (3.8-10.6)
[2018-11-04 03:26] LABS: Albumin 3.6 g/dL (3.5-5.0); Calcium 8.6 mg/dL (8.4-10.2); Potassium 4.2 mmol/L (3.5-5.1); Total Bilirubin 1.2 mg/dL (0.2-1.3)
[2018-11-04] MEDS: FUROSEMIDE 100 MG in SODIUM CHLORIDE 0.9% 90 ML IV SCH (06:28)
[2018-11-04 06:51] LABS: Glucose,Whole Blood 179 mg/dL (75-99)
[2018-11-04] MEDS: IPRATROPIUM-ALBUTEROL 3 ML NEB INHALATION SCH ×4 (07:29→19:58)
--- NOTE | 2018-11-04 07:43 | XR ---
EXAMINATION TYPE: XR chest 1V portable DATE OF EXAM: 11/04/2018 COMPARISON: 11/03/2018 INDICATION: Postoperative mitral valve repair TECHNIQUE: Single frontal view of the chest is obtained. FINDINGS: The heart size is enlarged. The pulmonary vasculature is normal. Mild infiltrate is on the left. No pneumothorax is evident. Sternotomy wires are present from cardiac valve surgery Left-sided chest tube is been removed. IMPRESSION: 1. Moderate cardiomegaly. 2. Mild scattered infiltrates, likely atelectasis, on the left.
--- NOTE | 2018-11-04 07:44 | P.PN ---
Subjective Progress Note Date: 11/04/18 Principal diagnosis: Coronary artery disease This a very pleasant 73-year-old gentleman who has a history of coronary artery disease with a recent stent placement to the LAD on 09/24/2018, chronic diastolic congestive heart failure, hypertension, hyperlipidemia, diabetes mellitus type 2 with peripheral neuropathy, chronic kidney disease, obstructive sleep apnea not utilizing CPAP in the outpatient setting, pulmonary hypertension, obesity, osteoarthritis, significant pipe smoking however denied any inhalation with the pipe. His FEV1 value is 54% of predicted. He was also found to have severe mitral valve regurgitation and has been seen by cardiothoracic surgery. The plan is for mitral valve repair/replacement to be performed on 10/31/[address] Lozada. He is seen again today in follow-up on the selective care unit. He is currently sitting up in a chair at the bedside. Awake and alert in no acute distress. No shortness of breath, cough or congestion. No chest pain or palpitations. Maintaining good O2 saturations in the 90s on room air. He's been afebrile. Hemodynamically stable. Urine culture reveals no growth. White count 6.2. Hemoglobin 13.7. Creatinine 2.05. He has been practicing with the incentive spirometer. The patient is seen today 11/03/2017 in follow-up in the intensive care unit. He is postoperative day #3 for mitral valve repair. He has had ongoing issues with hypoxemia. He is currently on BiPAP 12/5 and 50% FiO2. He is on a Lasix drip at 20 mg per hour, lactated Ringer's at 20 ML's per hour, clevidipine at 4 mg per hour and a insulin drip at 5 units per hour. Chest x-ray shows cardiomegaly some mild improvement in the bilateral pleural effusions and bibasilar atelectasis. White count 9.2. Hemoglobin 8.0. Creatinine 3.60. AST 3549, ALT 1277, alk phos 37. The patient is seen today 11/04/2018 in follow-up in the intensive care unit. He is postoperative day #4 for mitral valve repair. He is currently sitting up at the bedside. Awake and alert in no acute distress. He did not utilize the BiPAP last night. He is currently on 2 L high flow nasal cannula to maintain O2 saturations in the 90s. He is 0.9 normal saline at 20 ML's per hour. He remains on a Lasix drip at 10 mg per hour. He remains on amiodarone at 1 mg/m. His rate is well controlled. White count 9.2. Hemoglobin 8.4. Creatinine 3.03. AST 1270. ALT 1022. He is working with the incentive spirometer. Remains on bronchodilators. Currently on a insulin drip at 9 units per hour. Glucose 179. Objective - Vital Signs Vital signs: Vital Signs Temp 98.8 F 11/04/18 04:00 Pulse 72 11/04/18 07:00 Resp 16 11/04/18 07:00 BP 113/60 11/03/18 13:00 Pulse Ox 97 11/04/18 07:00 Intake & Output 11/03/18 11/04/18 11/04/18 18:59 06:59 18:59 Intake Total 709.252 465.941 Output Total 2608 1905 Balance -1898.748 -1439.059 Weight 102.2 kg Intake: IV 232 279 Lactated Ringers 1,000 ml 190 @ 20 mls/hr IV .Q24H [facility]IME Rx#:[id number] Sodium Chloride 0.9% 500 240 ml 500 ml @ 20 mls/hr IV .Q24H [facility]IME Rx#:[id number] pressure bag 42 39 Intake, IV Titration 327.252 186.941 Amount Clevidipine Butyrate 25 45.466 mg In Empty Bag 1 bag @ 1 MG/HR 2 mls/hr IV .Q24H [facility]IME Rx#:[id number] Furosemide 100 mg In 189.334 162.000 Sodium Chloride 0.9% 90 ml @ 10 MG/HR 10 mls/hr IV .Q10H [facility]IME Rx#: [id number] Insulin Regular 100 unit 52.452 4.941 In Sodium Chloride 0.9% 100 ml @ Per Protocol IV .Q0M [facility]IME Rx#:[id number] Sodium Chloride 0.9% 500 40 20 ml 500 ml @ 20 mls/hr IV .Q24H [facility]IME Rx#:[id number] Oral 150 Output: Chest Tube Drainage 13 Chest Tube Left Pleural/ 13 Mediastinal Urine 2595 1905 Other: Voiding Method Indwelling Catheter Indwelling Catheter ABP, PAP, CO, CI - Last Documented Arterial Blood Pressure 136/51 Pulmonary Artery Pressure 52/22 Cardiac Output 7.5 Cardiac Index 3.6 - Exam GENERAL EXAM: Pleasant 73-year-old gentleman. Improving. On 2 L high flow nasal cannula. Currently comfortable in no apparent distress. HEAD: Normocephalic. EYES: Normal reaction of pupils, equal size. NOSE: Clear with pink turbinates. THROAT: No erythema or exudates. NECK: No masses, no JVD. CHEST: Sternal dressing dry and intact. LUNGS: Equal air entry with crackles in the posterior bases. CVS: S1 and S2 normal with no audible murmur, regular rhythm. ABDOMEN: No hepatosplenomegaly, normal bowel sounds, no guarding or rigidity. SPINE: No scoliosis or deformity SKIN: No rashes CENTRAL NERVOUS SYSTEM: No focal deficits, tone is normal in all 4 extremities. EXTREMITIES: Sequential compression devices in place. There is trace peripheral edema. No clubbing, no cyanosis. Peripheral pulses are intact. - Labs CBC & Chem 7: 11/04/18 02:50 11/04/18 02:50 Labs: Abnormal Lab Results - Last 24 Hours (Table) 11/03/18 11/03/18 11/03/18 Range/Units 07:57 09:12 10:10 RBC (4.30-5.90) m/uL Hgb (13.0-17.5) gm/dL Hct (39.0-53.0) % Chloride (98-107) mmol/L Carbon Dioxide (22-30) mmol/L BUN (9-20) mg/dL Creatinine (0.66-1.25) mg/dL Glucose (74-99) mg/dL POC Glucose (mg/dL) 119 H 149 H 175 H (75-99) mg/dL AST (17-59) U/L ALT (21-72) U/L Total Protein (6.3-8.2) g/dL 11/03/18 11/03/18 11/03/18 Range/Units 11:08 12:06 12:56 RBC (4.30-5.90) m/uL Hgb (13.0-17.5) gm/dL Hct (39.0-53.0) % Chloride (98-107) mmol/L Carbon Dioxide (22-30) mmol/L BUN (9-20) mg/dL Creatinine (0.66-1.25) mg/dL Glucose (74-99) mg/dL POC Glucose (mg/dL) 148 H 129 H 107 H (75-99) mg/dL AST (17-59) U/L ALT (21-72) U/L Total Protein (6.3-8.2) g/dL 11/03/18 11/03/18 11/03/18 Range/Units 14:08 15:07 15:16 RBC (4.30-5.90) m/uL Hgb (13.0-17.5) gm/dL Hct (39.0-53.0) % Chloride (98-107) mmol/L Carbon Dioxide 31 H (22-30) mmol/L BUN 84 H (9-20) mg/dL Creatinine 3.45 H (0.66-1.25) mg/dL Glucose 116 H (74-99) mg/dL POC Glucose (mg/dL) 74 L 117 H (75-99) mg/dL AST (17-59) U/L ALT (21-72) U/L Total Protein (6.3-8.2) g/dL 11/03/18 11/03/18 11/03/18 Range/Units 16:25 17:10 18:19 RBC (4.30-5.90) m/uL Hgb (13.0-17.5) gm/dL Hct (39.0-53.0) % Chloride (98-107) mmol/L Carbon Dioxide (22-30) mmol/L BUN (9-20) mg/dL Creatinine (0.66-1.25) mg/dL Glucose (74-99) mg/dL POC Glucose (mg/dL) 130 H 150 H 135 H (75-99) mg/dL AST (17-59) U/L ALT (21-72) U/L Total Protein (6.3-8.2) g/dL 11/03/18 11/03/18 11/03/18 Range/Units 19:00 20:35 23:29 RBC (4.30-5.90) m/uL Hgb (13.0-17.5) gm/dL Hct (39.0-53.0) % Chloride (98-107) mmol/L Carbon Dioxide (22-30) mmol/L BUN (9-20) mg/dL Creatinine (0.66-1.25) mg/dL Glucose (74-99) mg/dL POC Glucose (mg/dL) 167 H 172 H 139 H (75-99) mg/dL AST (17-59) U/L ALT (21-72) U/L Total Protein (6.3-8.2) g/dL 11/04/18 11/04/18 11/04/18 Range/Units 01:56 02:50 02:50 RBC 2.71 L (4.30-5.90) m/uL Hgb 8.4 L (13.0-17.5) gm/dL Hct 24.9 L (39.0-53.0) % Chloride 94 L (98-107) mmol/L Carbon Dioxide 35 H (22-30) mmol/L BUN 94 H (9-20) mg/dL Creatinine 3.03 H (0.66-1.25) mg/dL Glucose 155 H (74-99) mg/dL POC Glucose (mg/dL) 128 H (75-99) mg/dL AST 1270 H (17-59) U/L ALT 1022 H (21-72) U/L Total Protein 6.0 L (6.3-8.2) g/dL 11/04/18 Range/Units 06:48 RBC (4.30-5.90) m/uL Hgb (13.0-17.5) gm/dL Hct (39.0-53.0) % Chloride (98-107) mmol/L Carbon Dioxide (22-30) mmol/L BUN (9-20) mg/dL Creatinine (0.66-1.25) mg/dL Glucose (74-99) mg/dL POC Glucose (mg/dL) 179 H (75-99) mg/dL AST (17-59) U/L ALT (21-72) U/L Total Protein (6.3-8.2) g/dL Assessment and Plan Assessment: Impression: #1 Severe mitral valve regurgitation with severely calcified mitral annulus, torn chordae to P1 posterior leaflet. He is status post complex mitral valve repair with resection of torn chordae to P1, posterior leaflet plication of P1 a nd P2, small resection P1-P2 leaflet, plication of both anterior mitral trigones, clip ligation of left atrial appendage. Post operative day #4. #2 Coronary artery disease with recent stent placement to the LAD on 09/24/2018. #3 Acute hypoxic respiratory failure secondary to an acute exacerbation of chronic diastolic congestive heart failure. On a Lasix drip at 10 mg per hour. #4 Diabetes mellitus, type II. #5 Diabetic peripheral neuropathy. #6 Obesity. #7 Obstructive sleep apnea not on home CPAP. #8 Pulmonary hypertension. #9 History of significant pipe smoking without inhalation. FEV1 value of 54% predicted. #10 Hypertension. #11 Hyperlipidemia. #12 Osteoarthritis. #13 Elevated liver function testing. #14 Acute renal failure current creatinine 3.60. Plan: The patient was seen and evaluated by Dr. Celis. Chest x-ray, labs all reviewed. Increase his activity as tolerated. Increase the use of the incentive spirometer and cough and deep breathing exercises. Continue bronchodilators. We'll continue to follow and make further recommendations based on his clinical status. Critical care time 36 minutes. I, the cosigning physician, performed a history & physical examination of the patient. Lungs sounds crackles in the posterior bases. Maintaining good O2 saturations in the 90s on 2 L high flow nasal cannula. I discussed the assessment and plan of care with my nurse practitioner, Valerie Kaur. I attest to the above note as dictated by her.
--- NOTE | 2018-11-04 08:07 | P.PN ---
Subjective Progress Note Date: 11/04/18 Principal diagnosis: Severe mitral regurgitation This is a 73-year-old gentleman with CAD and prior stenting of the LAD, severe mitral regurgitation, underwent mitral valve repair. On follow-up with the patient today, November 042018, the patient seems to be clinically better. Beside that the liver function test and renal function are better. He did have an episode of atrial fibrillation yesterday and he was started on amiodarone. The chest x-ray is looking better as well. Beside that he is on dual antiplatelet therapy. Objective - Vital Signs Vital signs: Vital Signs Temp 98.8 F 11/04/18 04:00 Pulse 72 11/04/18 07:41 Resp 16 11/04/18 07:00 BP 113/60 11/03/18 13:00 Pulse Ox 94 L 11/04/18 07:30 Intake & Output 11/03/18 11/04/18 11/04/18 18:59 06:59 18:59 Intake Total 709.252 465.941 Output Total 2608 1905 Balance -1898.748 -1439.059 Weight 102.2 kg Intake: IV 232 279 Lactated Ringers 1,000 ml 190 @ 20 mls/hr IV .Q24H [facility] Rx#:[id number] Sodium Chloride 0.9% 500 240 ml 500 ml @ 20 mls/hr IV .Q24H [facility] Rx#:[id number] pressure bag 42 39 Intake, IV Titration 327.252 186.941 Amount Clevidipine Butyrate 25 45.466 mg In Empty Bag 1 bag @ 1 MG/HR 2 mls/hr IV .Q24H [facility] Rx#:[id number] Furosemide 100 mg In 189.334 162.000 Sodium Chloride 0.9% 90 ml @ 10 MG/HR 10 mls/hr IV .Q10H [facility] Rx#: [id number] Insulin Regular 100 unit 52.452 4.941 In Sodium Chloride 0.9% 100 ml @ Per Protocol IV .Q0M [facility] Rx#:[id number] Sodium Chloride 0.9% 500 40 20 ml 500 ml @ 20 mls/hr IV .Q24H [facility] Rx#:[id number] Oral 150 Output: Chest Tube Drainage 13 Chest Tube Left Pleural/ 13 Mediastinal Urine 2595 1905 Other: Voiding Method Indwelling Catheter Indwelling Catheter ABP, PAP, CO, CI - Last Documented Arterial Blood Pressure 136/51 Pulmonary Artery Pressure 52/22 Cardiac Output 7.5 Cardiac Index 3.6 - Constitutional General appearance: Present: no acute distress - Labs CBC & Chem 7: 11/04/18 02:50 11/04/18 02:50 Labs: Abnormal Lab Results - Last 24 Hours (Table) 11/03/18 11/03/18 11/03/18 Range/Units 09:12 10:10 11:08 RBC (4.30-5.90) m/uL Hgb (13.0-17.5) gm/dL Hct (39.0-53.0) % Chloride (98-107) mmol/L Carbon Dioxide (22-30) mmol/L BUN (9-20) mg/dL Creatinine (0.66-1.25) mg/dL Glucose (74-99) mg/dL POC Glucose (mg/dL) 149 H 175 H 148 H (75-99) mg/dL AST (17-59) U/L ALT (21-72) U/L Total Protein (6.3-8.2) g/dL 11/03/18 11/03/18 11/03/18 Range/Units 12:06 12:56 14:08 RBC (4.30-5.90) m/uL Hgb (13.0-17.5) gm/dL Hct (39.0-53.0) % Chloride (98-107) mmol/L Carbon Dioxide (22-30) mmol/L BUN (9-20) mg/dL Creatinine (0.66-1.25) mg/dL Glucose (74-99) mg/dL POC Glucose (mg/dL) 129 H 107 H 74 L (75-99) mg/dL AST (17-59) U/L ALT (21-72) U/L Total Protein (6.3-8.2) g/dL 11/03/18 11/03/18 11/03/18 Range/Units 15:07 15:16 16:25 RBC (4.30-5.90) m/uL Hgb (13.0-17.5) gm/dL Hct (39.0-53.0) % Chloride (98-107) mmol/L Carbon Dioxide 31 H (22-30) mmol/L BUN 84 H (9-20) mg/dL Creatinine 3.45 H (0.66-1.25) mg/dL Glucose 116 H (74-99) mg/dL POC Glucose (mg/dL) 117 H 130 H (75-99) mg/dL AST (17-59) U/L ALT (21-72) U/L Total Protein (6.3-8.2) g/dL 11/03/18 11/03/18 11/03/18 Range/Units 17:10 18:19 19:00 RBC (4.30-5.90) m/uL Hgb (13.0-17.5) gm/dL Hct (39.0-53.0) % Chloride (98-107) mmol/L Carbon Dioxide (22-30) mmol/L BUN (9-20) mg/dL Creatinine (0.66-1.25) mg/dL Glucose (74-99) mg/dL POC Glucose (mg/dL) 150 H 135 H 167 H (75-99) mg/dL AST (17-59) U/L ALT (21-72) U/L Total Protein (6.3-8.2) g/dL 11/03/18 11/03/18 11/04/18 Range/Units 20:35 23:29 01:56 RBC (4.30-5.90) m/uL Hgb (13.0-17.5) gm/dL Hct (39.0-53.0) % Chloride (98-107) mmol/L Carbon Dioxide (22-30) mmol/L BUN (9-20) mg/dL Creatinine (0.66-1.25) mg/dL Glucose (74-99) mg/dL POC Glucose (mg/dL) 172 H 139 H 128 H (75-99) mg/dL AST (17-59) U/L ALT (21-72) U/L Total Protein (6.3-8.2) g/dL 11/04/18 11/04/18 11/04/18 Range/Units 02:50 02:50 06:48 RBC 2.71 L (4.30-5.90) m/uL Hgb 8.4 L (13.0-17.5) gm/dL Hct 24.9 L (39.0-53.0) % Chloride 94 L (98-107) mmol/L Carbon Dioxide 35 H (22-30) mmol/L BUN 94 H (9-20) mg/dL Creatinine 3.03 H (0.66-1.25) mg/dL Glucose 155 H (74-99) mg/dL POC Glucose (mg/dL) 179 H (75-99) mg/dL AST 1270 H (17-59) U/L ALT 1022 H (21-72) U/L Total Protein 6.0 L (6.3-8.2) g/dL Assessment and Plan Assessment: Assessment #1 CAD and status post LAD stenting #2 severe mitral regurgitation and status post repair #3 multiple comorbid conditions including hypertension and dyslipidemia Plan #1 continue the current medical regimen #2 continue monitor the kidney function and liver function #3 follow-up with the patient
[2018-11-04] MEDS: FUROSEMIDE 10 MG/ML 4 ML VIAL IV SCH ×2 (08:50→20:15)
[2018-11-04] MEDS: PANTOPRAZOLE 40 MG TABLET PO SCH (08:50)
[2018-11-04] MEDS: ASPIRIN 325 MG TAB PO SCH (08:50)
[2018-11-04] MEDS: CLOPIDOGREL 75 MG TAB PO SCH (08:50)
[2018-11-04] MEDS: METOPROLOL TARTRATE 25 MG TAB PO SCH ×2 (08:50→20:15)
[2018-11-04] MEDS: AMIODARONE 200 MG TAB PO SCH ×2 (08:50→20:13)
[2018-11-04] MEDS: MULTIVITAMINS, THERA 1 EACH TAB PO SCH (08:50)
[2018-11-04] MEDS: HEPARIN SODIUM,PORCINE 5,000 UNIT/ML 1 ML VIAL SQ SCH ×2 (08:50→17:18)
[2018-11-04] MEDS: hydrALAZINE HCL 10 MG TAB PO SCH ×3 (08:51→22:30)
[2018-11-04] MEDS: FERROUS SULFATE 325 MG TAB PO SCH (08:51)
[2018-11-04] MEDS ORDERED: METOLAZONE 2.5 MG TAB PO SCH (09:00)
--- NOTE | 2018-11-04 09:08 | P.PN ---
Subjective Progress Note Date: 11/04/18 Principal diagnosis: Severe eccentric mitral valve regurgitation, severely calcified mitral annulus, torn chordae to P1 posterior leaflet, past medical history significant for radha nary artery disease with recent drug-eluting stent placed to his left anterior descending coronary artery on 09/24/2018, chronic diastolic heart congestive failure, hypertension, hyperlipidemia, type 2 diabetes mellitus with peripheral neuropathy, chronic kidney disease with creatinine baseline around 2, obstructive sleep apnea without home CPAP use, pulmonary hypertension, obesity, osteoarthritis, remote history of tobacco dependence. POD #4 complex mitral valve repair with resection of torn chordae to P1, posterior leaflet plication of P1 and P2, small resection P1P2 leaflet, plication of both anterior mitral trigones, clip ligation of the left atrial appendage with a 35 mm Atriclip an intraoperative transesophageal echocardiogram. Postoperative acute blood loss anemia, an expected outcome due to cardiopulmonary bypass and hemodilution. Postoperative transaminitis with elevation of his AST and ALT, an unexpected outcome. The patient is currently sitting in a bedside chair in the intensive care unit. He is in no acute distress. He currently denies any complaints of pain or sh ortness of breath. The patient is much more alert this morning and is oriented 3. He remains afebrile, hemodynamically stable and is currently on no inotropic or pressor support. Cleviprex drip has been discontinued. The patient went into atrial fibrillation early this morning and was started on an amiodarone drip per protocol and is currently in normal sinus rhythm heart rate [address] elevation. Lasix drip was decreased to 10 mg per hour yesterday and he has had 1.3 L urine output in the last 8 hours. He remains with generalized weakness, and is moving all 4 extremities appropriately. Oxygen saturation are 96% on 2 L nasal cannula oxygen. He is giving a good effort on his incentive spirometry and is achieving about 500 mL. Mediastinal and left pleural chest tubes were discontinued yesterday along with his ventricular epicardial pacemaker wires. Clinically the patient looks much better today. His AST and ALT are trending down. Objective - Vital Signs Vital signs: Vital Signs Temp 98.5 F 11/04/18 08:00 Pulse 75 11/04/18 08:00 Resp 18 11/04/18 08:00 BP 113/60 11/03/18 13:00 Pulse Ox 93 L 08/11/19 08:00 Intake & Output 11/03/18 11/04/18 11/04/18 18:59 06:59 18:59 Intake Total 709.252 465.941 45.833 Output Total 2608 1905 75 Balance -1898.748 -1439.059 -29.167 Weight 102.2 kg Intake: IV 232 279 23 Lactated Ringers 1,000 ml 190 @ 20 mls/hr IV .Q24H [facility] Rx#:[id number] Sodium Chloride 0.9% 500 240 20 ml 500 ml @ 20 mls/hr IV .Q24H [facility] Rx#:[id number] pressure bag 42 39 3 Intake, IV Titration 327.252 186.941 22.833 Amount Clevidipine Butyrate 25 45.466 mg In Empty Bag 1 bag @ 1 MG/HR 2 mls/hr IV .Q24H [facility] Rx#:[id number] Furosemide 100 mg In 189.334 162.000 22.833 Sodium Chloride 0.9% 90 ml @ 10 MG/HR 10 mls/hr IV .Q10H [facility] Rx#: [id number] Insulin Regular 100 unit 52.452 4.941 In Sodium Chloride 0.9% 100 ml @ Per Protocol IV .Q0M [facility] Rx#:[id number] Sodium Chloride 0.9% 500 40 20 ml 500 ml @ 20 mls/hr IV .Q24H [facility] Rx#:[id number] Oral 150 Output: Chest Tube Drainage 13 Chest Tube Left Pleural/ 13 Mediastinal Urine 2595 1905 75 Other: Voiding Method Indwelling Catheter Indwelling Catheter ABP, PAP, CO, CI - Last Documented Arterial Blood Pressure 128/41 Pulmonary Artery Pressure 52/22 Cardiac Output 7.5 Cardiac Index 3.6 - Constitutional General appearance: Present: cooperative, morbidly obese, no acute distress - Respiratory Details: Lung sounds essentially clear to his bilateral upper lobes, few scattered crackles to his bilateral bases. Respirations are symmetrical and nonlabored. Oxygen saturation is 96% on 2 L nasal cannula. Achieving 500 mL on his incentive spirometry. - Cardiovascular Details: Regular rhythm and rate. S1 and S2 present, negative for S3, gallop or murmur. Sternum is stable. Bedside telemetry showing normal sinus rhythm with global ST elevation heart rate 72. Heart hugger is in place and he is demonstrating appropriate use with instruction. Knee-high GUERRERO hose and sequential compression devices in place to his bilateral lower extremities. +1 generalized edema. - Gastrointestinal Gastrointestinal Comment(s): Abdomen is soft, nontender and nondistended. Active bowel sounds present in all 4 abdominal quadrants. Passing flatus. No guarding or rigidity. No organomeg jean pierre appreciated. Tolerating oral intake. - Genitourinary Genitourinary Comment(s): Burrell catheter for accurate I&O. Draining clear yellow urine. 1.3 L output in the last 8 hours. - Integumentary Integumentary Comment(s): Skin is warm and dry. No clubbing or cyanosis is present. Midline sternal incision is clean, dry and approximated. No drainage redness is present. Exofin dressing is clean, dry and in place. No rash or abnormal pigmentation is present. - Neurologic Neurologic Comment(s): No focal deficits. Neurologic: Present: CNII-XII intact - Musculoskeletal Musculoskeletal: Present: gait normal, generalized weakness, strength equal bilaterally - Psychiatric Psychiatric: Present: A&O x's 3, appropriate affect, intact judgment & insight - Allied health notes Allied health notes reviewed: nursing - Labs CBC & Chem 7: 11/04/18 02:50 11/04/18 02:50 Labs: Abnormal Lab Results - Last 24 Hours (Table) 11/03/18 11/03/18 11/03/18 Range/Units 09:12 10:10 11:08 RBC (4.30-5.90) m/uL Hgb (13.0-17.5) gm/dL Hct (39.0-53.0) % Chloride (98-107) mmol/L Carbon Dioxide (22-30) mmol/L BUN (9-20) mg/dL Creatinine (0.66-1.25) mg/dL Glucose (74-99) mg/dL POC Glucose (mg/dL) 149 H 175 H 148 H (75-99) mg/dL AST (17-59) U/L ALT (21-72) U/L Total Protein (6.3-8.2) g/dL 11/03/18 11/03/18 11/03/18 Range/Units 12:06 12:56 14:08 RBC (4.30-5.90) m/uL Hgb (13.0-17.5) gm/dL Hct (39.0-53.0) % Chloride (98-107) mmol/L Carbon Dioxide (22-30) mmol/L BUN (9-20) mg/dL Creatinine (0.66-1.25) mg/dL Glucose (74-99) mg/dL POC Glucose (mg/dL) 129 H 107 H 74 L (75-99) mg/dL AST (17-59) U/L ALT (21-72) U/L Total Protein (6.3-8.2) g/dL 11/03/18 11/03/18 11/03/18 Range/Units 15:07 15:16 16:25 RBC (4.30-5.90) m/uL Hgb (13.0-17.5) gm/dL Hct (39.0-53.0) % Chloride (98-107) mmol/L Carbon Dioxide 31 H (22-30) mmol/L BUN 84 H (9-20) mg/dL Creatinine 3.45 H (0.66-1.25) mg/dL Glucose 116 H (74-99) mg/dL POC Glucose (mg/dL) 117 H 130 H (75-99) mg/dL AST (17-59) U/L ALT (21-72) U/L Total Protein (6.3-8.2) g/dL 11/03/18 11/03/18 11/03/18 Range/Units 17:10 18:19 19:00 RBC (4.30-5.90) m/uL Hgb (13.0-17.5) gm/dL Hct (39.0-53.0) % Chloride (98-107) mmol/L Carbon Dioxide (22-30) mmol/L BUN (9-20) mg/dL Creatinine (0.66-1.25) mg/dL Glucose (74-99) mg/dL POC Glucose (mg/dL) 150 H 135 H 167 H (75-99) mg/dL AST (17-59) U/L ALT (21-72) U/L Total Protein (6.3-8.2) g/dL 11/03/18 11/03/18 11/04/18 Range/Units 20:35 23:29 01:56 RBC (4.30-5.90) m/uL Hgb (13.0-17.5) gm/dL Hct (39.0-53.0) % Chloride (98-107) mmol/L Carbon Dioxide (22-30) mmol/L BUN (9-20) mg/dL Creatinine (0.66-1.25) mg/dL Glucose (74-99) mg/dL POC Glucose (mg/dL) 172 H 139 H 128 H (75-99) mg/dL AST (17-59) U/L ALT (21-72) U/L Total Protein (6.3-8.2) g/dL 11/04/18 11/04/18 11/04/18 Range/Units 02:50 02:50 06:48 RBC 2.71 L (4.30-5.90) m/uL Hgb 8.4 L (13.0-17.5) gm/dL Hct 24.9 L (39.0-53.0) % Chloride 94 L (98-107) mmol/L Carbon Dioxide 35 H (22-30) mmol/L BUN 94 H (9-20) mg/dL Creatinine 3.03 H (0.66-1.25) mg/dL Glucose 155 H (74-99) mg/dL POC Glucose (mg/dL) 179 H (75-99) mg/dL AST 1270 H (17-59) U/L ALT 1022 H (21-72) U/L Total Protein 6.0 L (6.3-8.2) g/dL - Imaging and Cardiology Chest x-ray: report reviewed, image reviewed Assessment and Plan Assessment: 1. Severe eccentric mitral valve regurgitation, severely calcified mitral annulus, performed chordee to P1 posterior leaflet, status post mitral valve repair 2. Coronary artery disease with recent drug-eluting stent to the LAD on 09/24/2018 3. Chronic diastolic heart failure 4. Hypertension 5. Hyperlipidemia 6. Type 2 diabetes mellitus with peripheral neuropathy 7. Chronic kidney disease with creatinine baseline around 2 8. Obstructive sleep apnea without home CPAP use 9. Pulmonary hypertension 10. Obesity 11. Osteoarthritis 12. Remote history of tobacco dependence 13. Postoperative acute blood loss anemia, an expected outcome 14. Postoperative transaminitis with elevation of his AST and ALT, an unexpected outcome Plan: 1. Continue aspirin, Plavix, and beta sun. Will increase his beta sun as tolerated.. 2. Continue hydralazine 10 mg by mouth 3 times a day for afterload reduction. 3. Wean O2/BiPAP as tolerated. Encourage incentive spirometry use 10 times every hour while awake. 4. Increase activity, ambulate as tolerated. PT/OT/cardiac rehab following. 5. Will monitor daily labs and chest x-rays. Electrolyte replacement per daniel col. 6. Bronchodilators per pulmonology management. 7. Pain control with current medication regimen. Avoid Toradol due to his renal function. 8. Insulin management per primary care service. 9. Discontinue right IJ Cordis and left radial arterial line. 10. Continue Burrell catheter for accurate I&O. 11. Discontinue Lasix drip and start the patient on Lasix 40 mg IV every 12 hours and decrease Zaroxolyn to 2.5 mg by mouth daily. 13. Avoid nephrotoxic medications. 14. Encourage continued cessation of tobacco. 15. Continue to hold Lipitor due to his elevation of his AST and ALT, start the Lipitor once his liver enzymes have normalized. 16. Discontinue the amiodarone drip and start amiodarone 400 mg by mouth twice a day for atrial fibrillation prophylaxis. 17. More recommendations to follow based on patient's clinical course. Time with Patient: Greater than 30
[2018-11-04] MEDS: SODIUM CHLORIDE 0.9% 500 ML 500 ML IV SCH (09:09)
[2018-11-04] MEDS: CHOLECALCIFEROL 1,000 UNIT TAB PO SCH (09:09)
[2018-11-04] MEDS: ASCORBIC ACID 500 MG TAB PO SCH (11:51)
[2018-11-04 12:10] LABS: Glucose,Whole Blood 291 mg/dL (75-99)
[2018-11-04 12:10] LABS: Glucose,Whole Blood 327 mg/dL (75-99)
[2018-11-04 16:53] LABS: Glucose,Whole Blood 181 mg/dL (75-99)
[2018-11-04 20:09] LABS: Glucose,Whole Blood 185 mg/dL (75-99)
[2018-11-04] MEDS: SENNOSIDES-DOCUSATE SODIUM 1 EACH TAB PO SCH (20:14)
[2018-11-04] MEDS: INSULIN DETEMIR (LEVEMIR) 100 UNIT/ML SYR SQ SCH (20:32)
--- NOTE | 2018-11-04 20:35 | PN ---
PROGRESS NOTE DATE OF SERVICE: 11/04/2018. This 73-year-old gentleman who was admitted after mitral valve replacement is being closely monitored at this time. The blood sugar has been elevated. The patient is taking 10 units regular at home. The sugar has been 291 at this time. AST and ALT were also elevated. Creatinine is 3.03, which shows slight improvement yesterday from 3.45. The patient is closely monitored at this time. The p.o. intake appears to be poor. The patient is on clear liquids. The patient closely monitored in ICU. PAST MEDICAL HISTORY: Reviewed. REVIEW OF SYSTEMS: CARDIOVASCULAR SYSTEM: No angina. RESPIRATORY: As mentioned earlier. GI: As mentioned earlier. : No dysuria. NERVOUS SYSTEM: No numbness or weakness. CURRENT MEDICATIONS: Reviewed and include: 1. Tylenol 1000 mg q.6h p.r.n. 2. DuoNeb q.i.d. and p.r.n. 3. Cordarone 400 mg p.o. b.i.d. 4. Vitamin C 500 mg daily. 5. Aspirin 325 mg. 6. Dulcolax 10 mg p.r.n. 7. Calcium 2 g. 8. Plavix 75 mg daily. 9. Iron sulfate 320 mg daily. 10.Lasix 40 mg p.o. b.i.d. 11.Heparin subcu q.8h. 12.Apresoline 10 mg p.o. daily. 13.Levemir 5 units subcu q.h.s. 14.Zaroxolyn 2.5 mg daily. 15.Lopressor 25 mg p.o. b.i.d. 16.Replacement protocol. 17.Multivitamins. 18.Zofran 4 mg q.6 p.r.n. 19.Protonix 40 mg. 20.Senna 2 tabs q.h.s. PHYSICAL EXAM: Patient is alert, oriented x3. The pulse is 67, blood pressure 109/61, respiration 23, temperature normal, pulse ox 98% on 2 L. HEENT: Conjunctivae normal. Oral mucosa moist. NECK: No jugular venous distention. No carotid bruit. No lymph node enlargement. CARDIOVASCULAR SYSTEM: S1, S2. RESPIRATORY: Breath sounds diminished in the bases. A few scattered rhonchi and crackles. Expiratory wheezing also present. ABDOMEN: Soft, nontender. No mass palpable. LEGS: No edema. NERVOUS SYSTEM: Minimal facial puffiness. Neck is nontender. No focal deficits. LAB STUDIES: WBC 9.2, hemoglobin is 8.4, otherwise creatinine 3.03. ASSESSMENT: 1. Status post mitral valve repair for severe mitral regurgitation. 2. History of recent coronary artery disease, stent. 3. Severe pulmonary hypertension. 4. Acute on chronic renal failure. 5. Elevated LFTs, possibly drug induced. 6. Chronic renal failure stage III baseline. 7. History of chronic diastolic dysfunction, congestive heart failure. 8. Hyperlipidemia. 9. History of gastroesophageal reflux disease. 10.Diabetes mellitus type 2. 11.Atelectasis. RECOMMENDATIONS: Continue current management, monitoring and symptomatic treatment. I recommended 10 units of regular insulin. I would also recommend 10 units with meals and 10 units a.c. and at bedtime, hold if Accu-Cheks less than 120. Otherwise, avoid nephrotoxic medications. Monitor LFTs closely. Most recent chest x-ray done today, which was personally reviewed by me, showed rather stable findings with some atelectasis and cardiomegaly. Other labs are noted. We will continue to monitor. Further recommendations to follow. See orders for details. MMODL / IJN: [id number] /
[2018-11-05] MEDS: HEPARIN SODIUM,PORCINE 5,000 UNIT/ML 1 ML VIAL SQ SCH ×4 (00:16→23:39)
[2018-11-05] MEDS: ACETAMINOPHEN TAB 500 MG TAB PO PRN ×2 (00:21→09:21)
[2018-11-05 02:06] LABS: Glucose,Whole Blood 64 mg/dL (75-99)
[2018-11-05 02:41] LABS: Glucose,Whole Blood 110 mg/dL (75-99)
[2018-11-05] MEDS: INSULIN ASPART (NovoLOG) 100 UNIT/ML VIAL SQ SCH ×8 (04:57→21:20)
[2018-11-05 05:01] LABS: Albumin 3.6 g/dL (3.5-5.0); Calcium 8.7 mg/dL (8.4-10.2); Potassium 3.7 mmol/L (3.5-5.1); Total Protein 6.1 g/dL (6.3-8.2)
[2018-11-05 05:05] LABS: HGB 8.7 gm/dL (13.0-17.5); MCH 30.9 pg (25.0-35.0); MCHC 33.5 g/dL (31.0-37.0); MCV 92.2 fL (80.0-100.0); Mean Platelet Volume 7.3; Platelet Count 224 k/uL (150-450); RBC 2.82 m/uL (4.30-5.90); WBC 9.2 k/uL (3.8-10.6)
--- NOTE | 2018-11-05 07:08 | XR ---
EXAMINATION TYPE: XR chest 2V DATE OF EXAM: 11/05/2018 COMPARISON: November 04, 2018 HISTORY: Shortness of breath TECHNIQUE: Frontal and lateral views of the chest are obtained. FINDINGS: Scattered senescent parenchymal changes noted. Hyperinflation compatible with COPD. Continued atelectasis or infiltrate left lower lobe improving aeration noted. Continued cardiomegaly without overt failure. Mediastinal structures are stable and grossly unremarkable. No evidence for hilar prominence. Degenerative changes dorsal spine. IMPRESSION: 1. Continued atelectasis or infiltrate left lower lobe improving aeration noted. Continued cardiomegaly without overt failure.
[2018-11-05 07:13] LABS: Glucose,Whole Blood 110 mg/dL (75-99)
--- NOTE | 2018-11-05 07:23 | P.PN ---
Subjective Progress Note Date: 11/05/18 Principal diagnosis: Severe mitral regurgitation This is a 73-year-old gentleman with CAD and prior stenting of the LAD, severe mitral regurgitation, underwent mitral valve repair. On follow-up with the patient today, 11/05/2018, the patient is doing overall better. Hemodynamically he is stable. He has been maintaining normal sinus mechanism. The liver function tests has been trending down. The hemoglobin is stable. The creatinine is trending down as well. He is on dual antiplatelet therapy. We are holding the statin at this point in view of the abnormal liver function tests. The chest x-ray was reviewed and seems to be better as well. Objective - Vital Signs Vital signs: Vital Signs Temp 98 F 11/05/18 04:00 Pulse 66 11/05/18 05:00 Resp 12 11/05/18 05:00 BP 114/54 11/05/18 05:00 Pulse Ox 95 11/05/18 05:00 Intake & Output 11/04/18 11/05/18 11/05/18 18:59 06:59 18:59 Intake Total 137.833 465 Output Total 1805 1325 Balance -1667.167 -860 Weight 98.7 kg Intake: IV 115 Sodium Chloride 0.9% 500 100 ml 500 ml @ 20 mls/hr IV .Q24H JAIME Rx#:[id number] pressure bag 15 Intake, IV Titration 22.833 Amount Furosemide 100 mg In 22.833 Sodium Chloride 0.9% 90 ml @ 10 MG/HR 10 mls/hr IV .Q10H JAIME Rx#: [id number] Oral 465 Output: Urine 1805 1325 Other: Voiding Method Indwelling Catheter Indwelling Catheter ABP, PAP, CO, CI - Last Documented Arterial Blood Pressure 144/49 Pulmonary Artery Pressure 52/22 Cardiac Output 7.5 Cardiac Index 3.6 - Constitutional General appearance: Present: no acute distress - Respiratory Respiratory: bilateral: diminished - Cardiovascular Rhythm: regular Heart sounds: normal: S1, S2 - Labs CBC & Chem 7: 11/05/18 04:21 11/05/18 04:21 Labs: Abnormal Lab Results - Last 24 Hours (Table) 11/04/18 11/04/18 11/04/18 Range/Units 02:50 12:06 12:07 RBC (4.30-5.90) m/uL Hgb (13.0-17.5) gm/dL Hct (39.0-53.0) % Chloride (98-107) mmol/L Carbon Dioxide (22-30) mmol/L BUN (9-20) mg/dL Creatinine (0.66-1.25) mg/dL POC Glucose (mg/dL) 327 H 291 H (75-99) mg/dL Magnesium 2.6 H (1.6-2.3) mg/dL AST (17-59) U/L ALT (21-72) U/L Total Protein (6.3-8.2) g/dL 11/04/18 11/04/18 11/05/18 Range/Units 16:49 20:05 02:01 RBC (4.30-5.90) m/uL Hgb (13.0-17.5) gm/dL Hct (39.0-53.0) % Chloride (98-107) mmol/L Carbon Dioxide (22-30) mmol/L BUN (9-20) mg/dL Creatinine (0.66-1.25) mg/dL POC Glucose (mg/dL) 181 H 185 H 64 L (75-99) mg/dL Magnesium (1.6-2.3) mg/dL AST (17-59) U/L ALT (21-72) U/L Total Protein (6.3-8.2) g/dL 11/05/18 11/05/18 11/05/18 Range/Units 02:38 04:21 04:21 RBC 2.82 L (4.30-5.90) m/uL Hgb 8.7 L (13.0-17.5) gm/dL Hct 26.0 L (39.0-53.0) % Chloride 89 L (98-107) mmol/L Carbon Dioxide 40 H (22-30) mmol/L BUN 116 H* (9-20) mg/dL Creatinine 2.75 H (0.66-1.25) mg/dL POC Glucose (mg/dL) 110 H (75-99) mg/dL Magnesium (1.6-2.3) mg/dL AST 602 H (17-59) U/L ALT 795 H (21-72) U/L Total Protein 6.1 L (6.3-8.2) g/dL 11/05/18 Range/Units 07:00 RBC (4.30-5.90) m/uL Hgb (13.0-17.5) gm/dL Hct (39.0-53.0) % Chloride (98-107) mmol/L Carbon Dioxide (22-30) mmol/L BUN (9-20) mg/dL Creatinine (0.66-1.25) mg/dL POC Glucose (mg/dL) 110 H (75-99) mg/dL Magnesium (1.6-2.3) mg/dL AST (17-59) U/L ALT (21-72) U/L Total Protein (6.3-8.2) g/dL Assessment and Plan Assessment: Assessment #1 CAD and status post LAD stenting #2 severe mitral regurgitation and status post repair #3 multiple comorbid conditions including hypertension and dyslipidemia Plan #1 continue the current medical regimen #2 continue monitor the kidney function and liver function #3 follow-up with the patient
[2018-11-05] MEDS: IPRATROPIUM-ALBUTEROL 3 ML NEB INHALATION SCH ×4 (07:29→21:16)
[2018-11-05] MEDS ORDERED: POTASSIUM CHLORIDE ER 20 MEQ TAB.ER PO STA (07:45)
[2018-11-05] MEDS: AMIODARONE 200 MG TAB PO SCH ×2 (07:56→20:32)
[2018-11-05] MEDS: CLOPIDOGREL 75 MG TAB PO SCH (07:59)
[2018-11-05] MEDS: ASPIRIN 325 MG TAB PO SCH (07:59)
[2018-11-05] MEDS: CHOLECALCIFEROL 1,000 UNIT TAB PO SCH (07:59)
[2018-11-05] MEDS ORDERED: BISACODYL 10 MG SUPP RECTAL STA (08:00)
[2018-11-05] MEDS: FERROUS SULFATE 325 MG TAB PO SCH (08:00)
[2018-11-05] MEDS ORDERED: DEXTROSE 5% IN WATER 100 ML with AMIODARONE 150 MG IV ONE (08:15)
[2018-11-05] MEDS: METOPROLOL TARTRATE 50 MG TAB PO SCH ×2 (08:24→20:32)
[2018-11-05] MEDS: PANTOPRAZOLE 40 MG TABLET PO SCH (08:24)
[2018-11-05] MEDS: MULTIVITAMINS, THERA 1 EACH TAB PO SCH (08:24)
--- NOTE | 2018-11-05 11:01 | P.CONS ---
History of Present Illness - Chief Complaint Cardiac debility - History of Present Illness I had the opportunity to see patient for inpatient rehab consultation with regard to cardiac debility. He was admitted to [facility] on October 28 with mitral valve regurg. On October 31 under went mitral valve replacement with amputation left atrial appendage. Seen in ICU by Ernestina Blas. Chest x-rays followed and note cardiomegaly. PT and OT prescribed. Previous functional history: 73-year-old right-handed white male who is lives and 2 floor home with . Both retired. They share the cooking, laundry, driving. does most of the driving. Independent with standing shower and gait without device. Denies tobacco and very rare drink. Dr. Mcgovern is regular doctor. Family history mother with CHF and father with cancer. Review of Systems Review of systems: ENT: Denies sneezes or discharge. Eyes: Denies discharge or photophobia. Cardiac: Sternal discomfort. Pulmonary: Moderate shortness of breath. Gastrointestinal: Denies nausea, emesis, constipation, diarrhea. Genitourinary: Denies discharge or frequency. Musculoskeletal: Denies muscle or bone aches. Neurologic: At least moderate generalized weakness. Endocrine: Denies shakes or sweats. Oncology: Denies cancers. Dermatologic: Denies rash, itching, pruritus. ALLERGY/immunology: Denies sneezes, rashes. Past Medical History Past Medical History: Coronary Artery Disease (CAD), Diabetes Mellitus, Eye Disorder, Hyperlipidemia, Hypertension, Osteoarthritis (OA) Additional Past Medical History / Comment(s): SOB w/exertion,CATARACTS, sleep apnea without home CPAP use History of Any Multi-Drug Resistant Organisms: None Reported Past Surgical History: Adenoidectomy, Heart Catheterization, Heart Catheterization With Stent, Tonsillectomy Additional Past Surgical History / Comment(s): FAUSTINO,COLONOSCOPY, heart cath 09/11/18, heart catheterization 09/24/2018 with drug-eluting stent placed to the LAD Past Anesthesia/Blood Transfusion Reactions: No Reported Reaction Additional Past Anesthesia/Blood Transfusion Reaction / Comm: no hx blood transfusion Date of Last Stent Placement:: September 2018 Past Psychological History: No Psychological Hx Reported Smoking Status: Former smoker Past Alcohol Use History: Rare Additional Past Alcohol Use History / Comment(s): SMOKED FOR 50 YEARS, QUIT 2007 Past Drug Use History: None Reported - Past Family History Father Family Medical History: Cancer, Diabetes Mellitus Additional Family Medical History / Comment(s): BLADDER CANCER Mother Family Medical History: Congestive Heart Failure (CHF) Additional Family Medical History / Comment(s): AT AGE 68 Medications and Allergies Home Medications Medication Instructions Recorded Confirmed Type Aspirin 81 mg PO DAILY 01/04/16 10/28/18 History Atorvastatin [Lipitor] 80 mg PO DAILY 01/04/16 10/28/18 History Cholecalciferol [Vitamin D3 (25 2,000 unit PO DAILY 01/04/16 10/28/18 History Mcg = 1000 Iu)] Desloratadine 5 mg PO DAILY 01/04/16 10/28/18 History Dulaglutide [Trulicity] 1.5 mg SQ MO 01/04/16 10/28/18 History Fenofibrate 160 mg PO AC-SUPPER 01/04/16 10/28/18 History Ferrous Sulfate [Iron (65 MG 325 mg PO DAILY 01/04/16 10/28/18 History Elemental)] Krill Oil 500 mg PO DAILY 01/04/16 10/28/18 History L.acidoph,Paracasei, B.lactis 1 cap PO DAILY 01/04/16 10/28/18 History [Probiotic] Metoprolol Tartrate [Lopressor] 25 mg PO BID #60 tab 01/07/16 10/28/18 Rx Celecoxib [CeleBREX] 200 mg PO DAILY PRN 01/09/17 10/28/18 History Insulin Lispro [humaLOG Kwikpen] 10 unit SQ AC-BID@0800,1600 PRN 01/09/17 10/28/18 History Multivitamins, Thera [Multivitamin 1 tab PO DAILY 01/09/17 10/28/18 History (formulary)] Furosemide [Lasix] 40 mg PO DAILY #30 tab 01/13/17 10/28/18 Rx Lisinopril [Prinivil] 20 mg PO DAILY 07/17/18 10/28/18 History Zinc 50 mg PO DAILY 07/17/18 10/28/18 History Ubidecarenone [Co Q-10] 100 mg PO DAILY 09/18/18 10/28/18 History Glimepiride [Amaryl] 1 mg PO AC-BRKFST 10/28/18 10/28/18 History Allergies Allergy/AdvReac Type Severity Reaction Status Date / Time No Known Allergies Allergy Verified 10/28/18 12:13 Physical Exam Vitals: Vital Signs Temp Pulse Pulse Resp BP BP Pulse Ox 11/05/18 10:00 62 20 91/54 98 11/05/18 09:30 96 22 115/65 97 11/05/18 09:00 109 H 21 115/65 96 11/05/18 08:30 104 H 21 111/80 94 L 11/05/18 08:00 97.9 F 106 H 22 111/80 96 11/05/18 07:45 98 120/72 11/05/18 07:42 110 H 11/05/18 07:27 105 H 98 11/05/18 07:00 71 13 124/64 95 11/05/18 06:00 65 15 119/63 98 11/05/18 05:00 66 12 114/54 95 11/05/18 04:00 98 F 64 16 119/62 98 11/05/18 03:00 67 8 L 115/63 97 11/05/18 02:00 66 17 112/60 99 11/05/18 01:01 68 17 122/57 96 11/05/18 00:00 97.7 F 68 22 119/57 98 11/04/18 23:08 67 17 98 11/04/18 23:00 67 24 125/62 94 L 11/04/18 22:00 66 16 134/65 96 11/04/18 21:00 74 18 126/66 97 11/04/18 20:13 73 11/04/18 20:00 98.5 F 71 22 115/60 98 11/04/18 19:58 71 11/04/18 19:00 69 16 115/60 97 11/04/18 18:00 71 13 125/67 96 11/04/18 17:00 69 17 107/60 99 11/04/18 16:00 69 17 119/62 97 11/04/18 15:42 68 11/04/18 15:28 67 11/04/18 15:00 67 23 109/61 98 11/04/18 14:00 66 18 109/61 11/04/18 13:00 65 21 122/62 99 11/04/18 12:00 99.1 F 66 21 111/56 97 08/11/19 11:18 68 11/04/18 11:05 65 11/04/18 11:00 64 20 106/55 99 Intake and Output 11/04/18 11/05/18 11/05/18 22:59 06:59 14:59 Intake Total 200 265 100 Output Total 1275 925 350 Balance -1075 -660 -250 Intake: Intake, IV Titration 100 Amount Dextrose 5% in Water 100 100 ml @ 618 mls/hr IV .Q10M ONE with Amiodarone 150 mg Rx#:[id number] Oral 200 265 Output: Urine 1275 925 350 Other: Voiding Method Indwelling Catheter Indwelling Catheter Weight 98.7 kg ABP, PAP, CO, CI - Last 8 Hours Cardiac Output 7.5 Cardiac Output 7.5 Cardiac Output 7.5 Cardiac Output 7.5 Cardiac Output 7.5 Cardiac Output 7.5 Cardiac Output 7.5 Cardiac Output 7.5 Cardiac Index 3.6 Cardiac Index 3.6 Cardiac Index 3.6 Cardiac Index 3.6 Cardiac Index 3.6 Cardiac Index 3.6 Cardiac Index 3.6 Cardiac Index 3.6 Skin: Mildly atrophic, intact. General: Obese build and comfortable appearance. Head: Normocephalic, atraumatic. Eyes: Symmetric. Pupils equal round. Ears: Symmetric. Hearing within normal limits. Mouth: Clear. Neck: Supple. Carotid without bruit. Cardiac: Regular rate and rhythm, distant. Sternal dressing. Wearing harness. Lungs: Clear anteriorly and posteriorly. Abdomen: Soft active nontender. Overweight. Extremities: Normal tone. Neurological: Mental status: Alert, cooperative, pleasant. Fatigued affect. Cranial nerves: Symmetric facial tone and trapezius. Motor: Normal strength and isolation all 4 limbs but at best antigravity. Sensation: Intact throughout. DTRs: Symmetric and equal throughout. Mobility: Appears would require two-person assistance for transfer currently. Results CBC & Chem 7: 11/05/18 04:21 11/05/18 04:21 Labs: Abnormal Lab Results - Last 24 Hours (Table) 11/04/18 11/04/18 11/04/18 Range/Units 12:06 12:07 16:49 RBC (4.30-5.90) m/uL Hgb (13.0-17.5) gm/dL Hct (39.0-53.0) % Chloride (98-107) mmol/L Carbon Dioxide (22-30) mmol/L BUN (9-20) mg/dL Creatinine (0.66-1.25) mg/dL POC Glucose (mg/dL) 327 H 291 H 181 H (75-99) mg/dL AST (17-59) U/L ALT (21-72) U/L Total Protein (6.3-8.2) g/dL 11/04/18 11/05/18 11/05/18 Range/Units 20:05 02:01 02:38 RBC (4.30-5.90) m/uL Hgb (13.0-17.5) gm/dL Hct (39.0-53.0) % Chloride (98-107) mmol/L Carbon Dioxide (22-30) mmol/L BUN (9-20) mg/dL Creatinine (0.66-1.25) mg/dL POC Glucose (mg/dL) 185 H 64 L 110 H (75-99) mg/dL AST (17-59) U/L ALT (21-72) U/L Total Protein (6.3-8.2) g/dL 11/05/18 11/05/18 11/05/18 Range/Units 04:21 04:21 07:00 RBC 2.82 L (4.30-5.90) m/uL Hgb 8.7 L (13.0-17.5) gm/dL Hct 26.0 L (39.0-53.0) % Chloride 89 L (98-107) mmol/L Carbon Dioxide 40 H (22-30) mmol/L BUN 116 H* (9-20) mg/dL Creatinine 2.75 H (0.66-1.25) mg/dL POC Glucose (mg/dL) 110 H (75-99) mg/dL AST 602 H (17-59) U/L ALT 795 H (21-72) U/L Total Protein 6.1 L (6.3-8.2) g/dL Assessment and Plan (1) Mitral valve insufficiency Current Visit: Yes Status: Acute Code(s): I34.0 - NONRHEUMATIC MITRAL (VALVE) INSUFFICIENCY SNOMED Code(s): 86669273 (2) Diastolic CHF, acute on chronic Current Visit: No Status: Acute Code(s): I50.33 - ACUTE ON CHRONIC DIASTOLIC (CONGESTIVE) HEART FAILURE SNOMED Code(s): 648929722 Plan: Impression: 1. Cardiac debility. 2. Status post MVR. 3. Acute on chronic CHF. 4. Hypertension. 5. Coronary disease. 6. Osteoarthritis. 7. Diabetes. 8. Morbid obesity. Constant plan: At this time PT and OT prescribed. Endurance appears to be quite limited currently. We'll continue to follow with yourself though.
[2018-11-05] MEDS: hydrALAZINE HCL 10 MG TAB PO SCH ×3 (11:22→20:33)
[2018-11-05 11:52] LABS: Glucose,Whole Blood 197 mg/dL (75-99)
[2018-11-05] MEDS: ASCORBIC ACID 500 MG TAB PO SCH (12:10)
--- NOTE | 2018-11-05 14:52 | P.PN ---
Subjective Progress Note Date: 11/05/18 This a very pleasant 73-year-old gentleman who has a history of coronary artery disease with a recent stent placement to the LAD on 09/24/2018, chronic diastolic congestive heart failure, hypertension, hyperlipidemia, diabetes mellitus type 2 with peripheral neuropathy, chronic kidney disease, obstructive sleep apnea not utilizing CPAP in the outpatient setting, pulmonary hypertension, obesity, osteoarthritis, significant pipe smoking however denied any inhalation with the pipe. His FEV1 value is 54% of predicted. He was also found to have severe mitral valve regurgitation and has been seen by c ardiothoracic surgery. The plan is for mitral valve repair/replacement to be performed on 10/31/[address] Lozada. He is seen again today in follow-up on the selective care unit. He is currently sitting up in a chair at the bedside. Awake and alert in no acute distress. No shortness of breath, cough or congestion. No chest pain or palpitations. Maintaining good O2 saturations in the 90s on room air. He's been afebrile. Hemodynamically stable. Urine culture reveals no growth. White count 6.2. Hemoglobin 13.7. Creatinine 2.05. He has been practicing with the incentive spirometer. The patient is seen today 11/03/2017 in follow-up in the intensive care unit. He is postoperative day #3 for mitral valve repair. He has had ongoing issues with hypoxemia. He is currently on BiPAP 12/5 and 50% FiO2. He is on a Lasix drip at 20 mg per hour, lactated Ringer's at 20 ML's per hour, clevidipine at 4 mg per hour and a insulin drip at 5 units per hour. Chest x-ray shows cardiomegaly some mild improvement in the bilateral pleural effusions and bibasilar atelectasis. White count 9.2. Hemoglobin 8.0. Creatinine 3.60. AST 3549, ALT 1277, alk phos 37. The patient is seen today 11/04/2018 in follow-up in the intensive care unit. He is postoperative day #4 for mitral valve repair. He is currently sitting up at the bedside. Awake and alert in no acute distress. He did not utilize the BiPAP last night. He is currently on 2 L high flow nasal cannula to maintain O2 saturations in the 90s. He is 0.9 normal saline at 20 ML's per hour. He remains on a Lasix drip at 10 mg per hour. He remains on amiodarone at 1 mg/m. His rate is well controlled. White count 9.2. Hemoglobin 8.4. Creatinine 3.03. AST 1270. ALT 1022. He is working with the incentive spirometer. Remains on bronchodilators. Currently on a insulin drip at 9 units per hour. Glucose 179. On 11/05/2018 I'm seeing this patient for a follow-up. The patient is postop day #5. The patient underwent a mitral valve repair. The patient is doing extremely well. Postop he had to be placed on Lasix if and the patient has been diuresed aggressively. Postop he also went into atrial fibrillation and he was treated with amiodarone and he was also on metoprolol 50 mg by mouth twice a day. His current rhythm is back to sinus. No anticoagulation is being utilized for now. He remains on subcu heparin for DVT prophylaxis. Overall is doing well. Sternum stable clean and intact. He is still pulling on a 500 mL on incentive spirometer. Pain is improved. The patient had a chest x-ray earlier today and the patient was found to have cardiomegaly. Some limited atelectatic changes are present in the lung bases bilaterally. No fever. No chills. No nausea or vomiting. He is weak. He has done minimal amount of activity. He was able to walk probably 15-20 feet with assistance. ICU. Morbidly done today. He is IV Lasix has been discontinued as there has been steady increase in the BUN and the creatinine. The VNA is up to 116 and the creatinine is up to 2.7. The liver function tests also continued to improve. AST is 602 and the ALT is down to 795. Oral intake is still suboptimal. The patient is receiving normal saline at the rate of 20 mL an hour. He was dynamically stable. Adequate urine output. Her net fluid balance was negative of 2.6 L over the past 24 hours. Objective - Vital Signs Vital signs: Vital Signs Temp 97.9 F 11/05/18 08:00 Pulse 62 11/05/18 13:00 Resp 17 11/05/18 13:00 BP 96/57 11/05/18 13:00 Pulse Ox 97 11/05/18 13:00 Intake & Output 11/04/18 11/05/18 11/05/18 18:59 06:59 18:59 Intake Total 137.833 465 100 Output Total 1805 1475 350 Balance -1667.167 -1010 -250 Weight 98.7 kg Intake: IV 115 0 Sodium Chloride 0.9% 500 100 ml 500 ml @ 20 mls/hr IV .Q24H [facility] Rx#:[id number] pressure bag 15 0 Intake, IV Titration 22.833 100 Amount Dextrose 5% in Water 100 100 ml @ 618 mls/hr IV .Q10M ONE with Amiodarone 150 mg Rx#:[id number] Furosemide 100 mg In 22.833 Sodium Chloride 0.9% 90 ml @ 10 MG/HR 10 mls/hr IV .Q10H [facility] Rx#: [id number] Oral 465 Output: Urine 1805 1475 350 Other: Voiding Method Indwelling Catheter Indwelling Catheter Indwelling Catheter ABP, PAP, CO, CI - Last Documented Arterial Blood Pressure 144/49 Pulmonary Artery Pressure 52/22 Cardiac Output 7.5 Cardiac Index 3.6 - Exam GENERAL EXAM: Pleasant 73-year-old gentleman. Improving. On 2 L high flow nasal cannula. Currently comfortable in no apparent distress. HEAD: Normocephalic. EYES: Normal reaction of pupils, equal size. NOSE: Clear with pink turbinates. THROAT: No erythema or exudates. NECK: No masses, no JVD. CHEST: Sternal dressing dry and intact. LUNGS: Equal air entry with crackles in the posterior bases. CVS: S1 and S2 normal with no audible murmur, regular rhythm. ABDOMEN: No hepatosplenomegaly, normal bowel sounds, no guarding or rigidity. SPINE: No scoliosis or deformity SKIN: No rashes CENTRAL NERVOUS SYSTEM: No focal deficits, tone is normal in all 4 extremities. EXTREMITIES: Sequential compression devices in place. There is trace peripheral edema. No clubbing, no cyanosis. Peripheral pulses are intact. - Labs CBC & Chem 7: 11/05/18 04:21 11/05/18 12:33 Labs: Abnormal Lab Results - Last 24 Hours (Table) 11/04/18 11/04/18 11/05/18 Range/Units 16:49 20:05 02:01 RBC (4.30-5.90) m/uL Hgb (13.0-17.5) gm/dL Hct (39.0-53.0) % Chloride (98-107) mmol/L Carbon Dioxide (22-30) mmol/L BUN (9-20) mg/dL Creatinine (0.66-1.25) mg/dL POC Glucose (mg/dL) 181 H 185 H 64 L (75-99) mg/dL AST (17-59) U/L ALT (21-72) U/L Total Protein (6.3-8.2) g/dL 11/05/18 11/05/18 11/05/18 Range/Units 02:38 04:21 04:21 RBC 2.82 L (4.30-5.90) m/uL Hgb 8.7 L (13.0-17.5) gm/dL Hct 26.0 L (39.0-53.0) % Chloride 89 L (98-107) mmol/L Carbon Dioxide 40 H (22-30) mmol/L BUN 116 H* (9-20) mg/dL Creatinine 2.75 H (0.66-1.25) mg/dL POC Glucose (mg/dL) 110 H (75-99) mg/dL AST 602 H (17-59) U/L ALT 795 H (21-72) U/L Total Protein 6.1 L (6.3-8.2) g/dL 11/05/18 11/05/18 Range/Units 07:00 11:48 RBC (4.30-5.90) m/uL Hgb (13.0-17.5) gm/dL Hct (39.0-53.0) % Chloride (98-107) mmol/L Carbon Dioxide (22-30) mmol/L BUN (9-20) mg/dL Creatinine (0.66-1.25) mg/dL POC Glucose (mg/dL) 110 H 197 H (75-99) mg/dL AST (17-59) U/L ALT (21-72) U/L Total Protein (6.3-8.2) g/dL Assessment and Plan Plan: #1 Severe mitral valve regurgitation with severely calcified mitral annulus, torn chordae to P1 posterior leaflet. He is status post complex mitral valve repair with resection of torn chordae to P1, posterior leaflet plication of P1 and P2, small resection P1-P2 leaflet, plication of both anterior mitral trigones, clip ligation of left atrial appendage. Post operative day #5. #2 Coronary artery disease with recent stent placement to the LAD on 09/24/2018. #3 Acute hypoxic respiratory failure secondary to an acute exacerbation of chronic diastolic congestive heart failure. The patient was given BiPAP support and later on high flow oxygen and currently is down to 2 L of oxygen by nasal cannula. Chest x-ray showing some limited atelectatic changes in lung bases. No significant respiratory distress. The patient is quite debilitated and weak. He is using incentive spirometer. Sternum stable clean and intact. All chest tubes have been removed. #4 Diabetes mellitus, type II. #5 Diabetic peripheral neuropathy. #6 Obesity. #7 Obstructive sleep apnea not on home CPAP. #8 Pulmonary hypertension. #9 History of significant pipe smoking without inhalation. FEV1 value of 54% predicted. #10 Hypertension. #11 Hyperlipidemia. #12 Osteoarthritis. #13 Elevated liver function testing, , likely secondary to shock liver and the patient's LFTs are also improving #14 Acute renal failure , , improving and the patient's creatinine is down to 2.7 Plan Agree on withholding Lasix for now. Monitor creatinine. Monitor LFTs. Continue using incentive spirometer. Asked the patient to ambulate in the hallway today. Sternum stable clean and intact. He continues to CPAP/BiPAP overnight. No need to use this morning. Avoid nephrotoxic agents. Continue amiodarone. Cardiac rhythm is sinus. We'll continue to follow.
[2018-11-05] MEDS: SODIUM CHLORIDE 0.9% 500 ML 500 ML IV SCH (15:01)
--- NOTE | 2018-11-05 16:08 | P.PN ---
Subjective Progress Note Date: 11/05/18 Principal diagnosis: This is a 73-year-old male was admitted to have mitral valve replacement and is being closely monitored. Patient is sitting up in the recliner talking to family on the phone in no acute distress. Patient has been up and walking around the room with no difficulties. Cardiology is following. Patient is to undergo surgery in the morning. Patient is currently on IV Aggrastat. Patient denies any shortness of breath, chest pain, or palpitations at this time. Patient denies any nausea or vomiting. Patient is afebrile. Patient states he is just waiting for his heart surgery tomorrow. Guarded prognosis. This is a 73-year-old male who is currently in the ICU on postop day #1 who underwent mitral valve repair with resection with Dr. Lozada. Patient was extubated and is currently on a BiPAP. Patient is tolerating well. Patient is being closely monitored. Family is at the bedside. Patient is currently still on an insulin drip at 7.5 units per hour and is being closely monitored. Patient still has a chest tube on the left side with a total of 210 mL output over the last 8 hours. Patient still has an indwelling Burrell catheter and monitoring output as well. Dr. Celis is following the patient closely. 11/02/2018 Today patient is still currently in the ICU and post op day #2 for the mitral valve repair with resection and is being closely monitored. Patient is currently still on a Bipap with settings of 12/5, 50% Fi02. Patient is hemodynamically stable after receiving 1 unit of PRBC earlier this morning. Patient denies any new shortness of breath, chest pain, or palpitations. Patient is tolerating the Bipap. Patient has poor incentive spirometer use and achieving 200. Patient is very lethargic but easily arousable. Patient will be working with PT/OT once respiratory status has stabilized. Patient is currently on a lasix drip and u rine output has slightly improved. Patient is also on Cleviprex for blood pressure control. Prognosis is extremely guarded. Will continue to monitor closely. 11/05/2018 Patient is currently sitting up in the recliner eating lunch in no acute distress. Patient is currently still in the ICU postop day #5 and is being closely monitored status post mitral valve replacement. Patient is off the BiPA P and currently on 2 L via nasal cannula and oxygenating well. Patient has a poor response with his incentive spirometer of approximately 4-500 Max. Discussed with the patient at length about attempting incentive spirometer at least 10 times per hour while awake. at the bedside. Patient is a poor oral intake stating that he doesn't have much of an appetite. Patient is attempting to eat with each meal. Blood sugars are being monitored closely and we'll continue to treat accordingly. Patient denies any chest pain, palpitations and states that his shortness of breath has improved but still gets winded while walking. Patient walked to the hallway and back as well as to the bathroom with PT/OT. Patient denies any nausea or vomiting at this time. Patient is afebrile. Patient's liver functions were elevated but are trending down. Creatinine is slowly improving as well. Current creatinine is 2.75 down from 3.03. IV Lasix drip was discontinued. Patient is urinating well with good output. Patient states he has not had a bowel movement yet but was given a laxative. Patient denies any abdominal discomfort at this time. Guarded prognosis. Objective - Vital Signs Vital signs: Vital Signs Temp 97.9 F 11/05/18 08:00 Pulse 62 11/05/18 15:00 Resp 15 11/05/18 15:00 BP 119/62 11/05/18 15:00 Pulse Ox 98 11/05/18 15:00 Intake & Output 11/04/18 11/05/18 11/05/18 18:59 06:59 18:59 Intake Total 137.833 465 100 Output Total 1805 1475 350 Balance -1667.167 -1010 -250 Weight 98.7 kg Intake: IV 115 0 Sodium Chloride 0.9% 500 100 0 ml 500 ml @ 20 mls/hr IV .Q24H [facility] Rx#:[id number] pressure bag 15 0 Intake, IV Titration 22.833 100 Amount Dextrose 5% in Water 100 100 ml @ 618 mls/hr IV .Q10M ONE with Amiodarone 150 mg Rx#:[id number] Furosemide 100 mg In 22.833 Sodium Chloride 0.9% 90 ml @ 10 MG/HR 10 mls/hr IV .Q10H [facility] Rx#: [id number] Oral 465 Output: Urine 1805 1475 350 Other: Voiding Method Indwelling Catheter Indwelling Catheter Indwelling Catheter ABP, PAP, CO, CI - Last Documented Arterial Blood Pressure 144/49 Pulmonary Artery Pressure 52/22 Cardiac Output 7.5 Cardiac Index 3.6 - Exam Gen: This is a 73-year-old male sitting up in recliner in no acute distress. Vital signs are stable. Blood pressure is 111/80, pulse is 104, respirations are 21, oxygen saturation is 94% on 2 L via nasal cannula. Temp is 97.9F. HEENT: Head is atraumatic, normocephalic. Pupils equal, round. Sclerae is anicteric. Mild facial puffiness noted but has improved from postop day #1 NECK: Supple. No JVD. No lymphadenopathy. No thyromegaly. LUNGS: Lung sounds diminished at the bases with a few scattered rhonchi and crackles noted. Mild expiratory wheezing noted. No intercostal retractions. HEART: S1 and S2 are muffled ABDOMEN: Soft. Bowel sounds are present. No masses. No tenderness. EXTREMITIES: No pedal edema. No calf tenderness. NEUROLOGICAL: Patient is awake, alert and oriented x3. Cranial nerves 2 through 12 are grossly intact. - Labs CBC & Chem 7: 11/05/18 04:21 11/05/18 12:33 Labs: Abnormal Lab Results - Last 24 Hours (Table) 11/04/18 11/04/18 11/05/18 Range/Units 16:49 20:05 02:01 RBC (4.30-5.90) m/uL Hgb (13.0-17.5) gm/dL Hct (39.0-53.0) % Chloride (98-107) mmol/L Carbon Dioxide (22-30) mmol/L BUN (9-20) mg/dL Creatinine (0.66-1.25) mg/dL POC Glucose (mg/dL) 181 H 185 H 64 L (75-99) mg/dL AST (17-59) U/L ALT (21-72) U/L Total Protein (6.3-8.2) g/dL 11/05/18 11/05/18 11/05/18 Range/Units 02:38 04:21 04:21 RBC 2.82 L (4.30-5.90) m/uL Hgb 8.7 L (13.0-17.5) gm/dL Hct 26.0 L (39.0-53.0) % Chloride 89 L (98-107) mmol/L Carbon Dioxide 40 H (22-30) mmol/L BUN 116 H* (9-20) mg/dL Creatinine 2.75 H (0.66-1.25) mg/dL POC Glucose (mg/dL) 110 H (75-99) mg/dL AST 602 H (17-59) U/L ALT 795 H (21-72) U/L Total Protein 6.1 L (6.3-8.2) g/dL 11/05/18 11/05/18 Range/Units 07:00 11:48 RBC (4.30-5.90) m/uL Hgb (13.0-17.5) gm/dL Hct (39.0-53.0) % Chloride (98-107) mmol/L Carbon Dioxide (22-30) mmol/L BUN (9-20) mg/dL Creatinine (0.66-1.25) mg/dL POC Glucose (mg/dL) 110 H 197 H (75-99) mg/dL AST (17-59) U/L ALT (21-72) U/L Total Protein (6.3-8.2) g/dL Assessment and Plan Assessment: Severe mitral regurgitation: Patient underwent mitral valve replacement. Postop day #5 Carotid disease with recent myocardial infarction and stent placement Severe pulmonary hypertension Chronic diastolic dysfunction, congestive heart failure Chronic kidney disease stage III creatinine is baseline was 2.11. We'll continue to monitor closely Acute on chronic renal failure Elevated LFTs, possibly drug-induced Hyperlipidemia Gastroesophageal reflux disease Diabetes mellitus type 2 with diabetic nephropathy: Patient will be resumed on home medications. Will titrate insulin and diabetic medications depending on blood sugar readings. DVT prophylaxis: Patient is on heparin subq every 8 hours Atelectasis Recommendations and discussion Recommend continue current medications, management, and symptomatic treatment. Patient is currently still in the ICU. Will continue to monitor labs and vital signs closely. Cardiology, pulmonary, and cardiothoracic surgery are following closely. PT/OT/cardiac rehab following the patient. Will continue to monitor blood sugars closely and treat accordingly. Patient will receive 10 units of regular insulin with meals and will hold 10 units at bedtime. Continue before meals at bedtime glucose monitoring and treat accordingly. Continue to encourage incentive spirometer use every hour while awake. Guarded prognosis. Further recommendations to follow.
[2018-11-05 17:05] LABS: Glucose,Whole Blood 114 mg/dL (75-99)
[2018-11-05] MEDS: SENNOSIDES-DOCUSATE SODIUM 1 EACH TAB PO SCH (20:33)
[2018-11-05 21:17] LABS: Glucose,Whole Blood 252 mg/dL (75-99)
[2018-11-05] MEDS: INSULIN DETEMIR (LEVEMIR) 100 UNIT/ML SYR SQ SCH (21:31)
[2018-11-06 02:50] LABS: Glucose,Whole Blood 137 mg/dL (75-99)
[2018-11-06 05:43] LABS: HCT 27.3 % (39.0-53.0); HGB 9.1 gm/dL (13.0-17.5); MCHC 33.3 g/dL (31.0-37.0); MCV 93.2 fL (80.0-100.0); Mean Platelet Volume 7.3; Platelet Count 292 k/uL (150-450); RBC 2.93 m/uL (4.30-5.90); RDW 14.9 % (11.5-15.5); WBC 10.1 k/uL (3.8-10.6)
[2018-11-06] MEDS: INSULIN ASPART (NovoLOG) 100 UNIT/ML VIAL SQ SCH ×8 (05:56→20:35)
[2018-11-06 05:57] LABS: Albumin 3.9 g/dL (3.5-5.0); Potassium 4.2 mmol/L (3.5-5.1); Total Bilirubin 1.1 mg/dL (0.2-1.3); Total Protein 6.6 g/dL (6.3-8.2)
--- NOTE | 2018-11-06 07:30 | P.PN ---
Subjective Progress Note Date: 11/06/18 Principal diagnosis: Severe mitral regurgitation This is a 73-year-old gentleman with CAD and prior stenting of the LAD, severe mitral regurgitation, underwent mitral valve repair. On follow-up with the patient today, November [id number], this is postoperative day #3. Overall, the patient is doing better clinically. He has been hemodynamics are stable. He has been maintaining normal sinus mechanism. The liver function tests have been trending down. The hemoglobin is stable. The creatinine this morning is 2.44 which is almost his baseline. He continues to be on dual antiplatelet therapy along with metoprolol. We are holding statin in view of the abnormal liver function tests. Beside that he continues to be on amiodarone by mouth. Objective - Vital Signs Vital signs: Vital Signs Temp 97.9 F 11/06/18 04:00 Pulse 67 11/06/18 06:00 Resp 19 11/06/18 06:00 BP 134/65 11/06/18 06:00 Pulse Ox 97 11/06/18 06:00 Intake & Output 11/05/18 11/06/18 11/06/18 18:59 06:59 18:59 Intake Total 100 0 Output Total 600 1050 0 Balance -500 -1050 0 Weight 96 kg Intake: IV 0 0 Sodium Chloride 0.9% 500 0 ml 500 ml @ 20 mls/hr IV .Q24H [facility] Rx#:[id number] pressure bag 0 0 Intake, IV Titration 100 Amount Dextrose 5% in Water 100 100 ml @ 618 mls/hr IV .Q10M ONE with Amiodarone 150 mg Rx#:[id number] Output: Urine 600 1050 0 Other: Voiding Method Indwelling Catheter Urinal # Bowel Movements 1 ABP, PAP, CO, CI - Last Documented Arterial Blood Pressure 144/49 Pulmonary Artery Pressure 52/22 Cardiac Output 7.5 Cardiac Index 3.6 - Constitutional General appearance: Present: no acute distress - Labs CBC & Chem 7: 11/06/18 04:41 11/06/18 04:41 Labs: Abnormal Lab Results - Last 24 Hours (Table) 11/05/18 11/05/18 11/05/18 Range/Units 11:48 17:03 20:50 RBC (4.30-5.90) m/uL Hgb (13.0-17.5) gm/dL Hct (39.0-53.0) % Chloride (98-107) mmol/L Carbon Dioxide (22-30) mmol/L BUN (9-20) mg/dL Creatinine (0.66-1.25) mg/dL Glucose (74-99) mg/dL POC Glucose (mg/dL) 197 H 114 H 252 H (75-99) mg/dL AST (17-59) U/L ALT (21-72) U/L 11/06/18 11/06/18 11/06/18 Range/Units 02:13 04:41 04:41 RBC 2.93 L (4.30-5.90) m/uL Hgb 9.1 L (13.0-17.5) gm/dL Hct 27.3 L (39.0-53.0) % Chloride 90 L (98-107) mmol/L Carbon Dioxide 40 H (22-30) mmol/L BUN 119 H* (9-20) mg/dL Creatinine 2.44 H (0.66-1.25) mg/dL Glucose 100 H (74-99) mg/dL POC Glucose (mg/dL) 137 H (75-99) mg/dL AST 272 H (17-59) U/L ALT 627 H (21-72) U/L Assessment and Plan Assessment: Assessment #1 CAD and status post LAD stenting #2 severe mitral regurgitation and status post repair #3 multiple comorbid conditions including hypertension and dyslipidemia Plan #1 continue the current medical regimen #2 continue monitor the kidney function and liver function #3 follow-up with the patient #4 the patient to be able to be transferred out of the ICU.
[2018-11-06 07:31] LABS: Glucose,Whole Blood 135 mg/dL (75-99)
[2018-11-06] MEDS: IPRATROPIUM-ALBUTEROL 3 ML NEB INHALATION SCH ×4 (07:57→19:50)
--- NOTE | 2018-11-06 08:29 | P.PN ---
Subjective Progress Note Date: 11/06/18 This a very pleasant 73-year-old gentleman who has a history of coronary artery disease with a recent stent placement to the LAD on 09/24/2018, chronic diastolic congestive heart failure, hypertension, hyperlipidemia, diabetes mellitus type 2 with peripheral neuropathy, chronic kidney disease, obstructive sleep apnea not utilizing CPAP in the outpatient setting, pulmonary hypertension, obesity, osteoarthritis, significant pipe smoking however denied any inhalation with the pipe. His FEV1 value is 54% of predicted. He was also found to have severe mitral valve regurgitation and has been seen by c ardiothoracic surgery. The plan is for mitral valve repair/replacement to be performed on 10/31/[address] Lozada. He is seen again today in follow-up on the selective care unit. He is currently sitting up in a chair at the bedside. Awake and alert in no acute distress. No shortness of breath, cough or congestion. No chest pain or palpitations. Maintaining good O2 saturations in the 90s on room air. He's been afebrile. Hemodynamically stable. Urine culture reveals no growth. White count 6.2. Hemoglobin 13.7. Creatinine 2.05. He has been practicing with the incentive spirometer. The patient is seen today 11/03/2017 in follow-up in the intensive care unit. He is postoperative day #3 for mitral valve repair. He has had ongoing issues with hypoxemia. He is currently on BiPAP 12/5 and 50% FiO2. He is on a Lasix drip at 20 mg per hour, lactated Ringer's at 20 ML's per hour, clevidipine at 4 mg per hour and a insulin drip at 5 units per hour. Chest x-ray shows cardiomegaly some mild improvement in the bilateral pleural effusions and bibasilar atelectasis. White count 9.2. Hemoglobin 8.0. Creatinine 3.60. AST 3549, ALT 1277, alk phos 37. The patient is seen today 11/04/2018 in follow-up in the intensive care unit. He is postoperative day #4 for mitral valve repair. He is currently sitting up at the bedside. Awake and alert in no acute distress. He did not utilize the BiPAP last night. He is currently on 2 L high flow nasal cannula to maintain O2 saturations in the 90s. He is 0.9 normal saline at 20 ML's per hour. He remains on a Lasix drip at 10 mg per hour. He remains on amiodarone at 1 mg/m. His rate is well controlled. White count 9.2. Hemoglobin 8.4. Creatinine 3.03. AST 1270. ALT 1022. He is working with the incentive spirometer. Remains on bronchodilators. Currently on a insulin drip at 9 units per hour. Glucose 179. On 11/05/2018 I'm seeing this patient for a follow-up. The patient is postop day #5. The patient underwent a mitral valve repair. The patient is doing extremely well. Postop he had to be placed on Lasix if and the patient has been diuresed aggressively. Postop he also went into atrial fibrillation and he was treated with amiodarone and he was also on metoprolol 50 mg by mouth twice a day. His current rhythm is back to sinus. No anticoagulation is being utilized for now. He remains on subcu heparin for DVT prophylaxis. Overall is doing well. Sternum stable clean and intact. He is still pulling on a 500 mL on incentive spirometer. Pain is improved. The patient had a chest x-ray earlier today and the patient was found to have cardiomegaly. Some limited atelectatic changes are present in the lung bases bilaterally. No fever. No chills. No nausea or vomiting. He is weak. He has done minimal amount of activity. He was able to walk probably 15-20 feet with assistance. ICU. Morbidly done today. He is IV Lasix has been discontinued as there has been steady increase in the BUN and the creatinine. The VNA is up to 116 and the creatinine is up to 2.7. The liver function tests also continued to improve. AST is 602 and the ALT is down to 795. Oral intake is still suboptimal. The patient is receiving normal saline at the rate of 20 mL an hour. He was dynamically stable. Adequate urine output. Her net fluid balance was negative of 2.6 L over the past 24 hours. On 11/06/2018, the patient is doing well and the patient is postop day #6. Chest x-ray from today shows some atelectatic changes in the left lung base along with some elevation of left hemidiaphragm. Otherwise there is some background cardiomegaly. The patient is doing well. His been in a negative f luid balance in the net fluid balance over the past 24 hours has been -1.5 L. The patient has been taken off the diuretics. Today's creatinine is down to 2.4 with a BUN of 119. Serum bicarb is at 40. No significant hyperkalemia. The liver function tests are also improving. The patient is on 2 L of oxygen by nasal cannula and the pulse ox is 97%. He is using incentive spirometer. Sternum stable clean and intact. He has been no other significant events overnight. He remains on a dual antiplatelet therapy. He is also on metoprolol for rate control. His hemoglobin is stable. Objective - Vital Signs Vital signs: Vital Signs Temp 97.9 F 11/06/18 04:00 Pulse 78 11/06/18 08:10 Resp 18 11/06/18 07:00 BP 142/68 11/06/18 07:00 Pulse Ox 97 11/06/18 07:58 Intake & Output 11/05/18 11/06/18 11/06/18 18:59 06:59 18:59 Intake Total 100 0 Output Total 600 1050 0 Balance -500 -1050 0 Weight 96 kg Intake: IV 0 0 Sodium Chloride 0.9% 500 0 ml 500 ml @ 20 mls/hr IV .Q24H [facility] Rx#:[id number] pressure bag 0 0 Intake, IV Titration 100 Amount Dextrose 5% in Water 100 100 ml @ 618 mls/hr IV .Q10M ONE with Amiodarone 150 mg Rx#:[id number] Output: Urine 600 1050 0 Other: Voiding Method Indwelling Catheter Urinal # Bowel Movements 1 ABP, PAP, CO, CI - Last Documented Arterial Blood Pressure 144/49 Pulmonary Artery Pressure 52/22 Cardiac Output 7.5 Cardiac Index 3.6 - Exam GENERAL EXAM: Pleasant 73-year-old gentleman. Improving. On 2 L high flow nasal cannula. Currently comfortable in no apparent distress. HEAD: Normocephalic. EYES: Normal reaction of pupils, equal size. NOSE: Clear with pink turbinates. THROAT: No erythema or exudates. NECK: No masses, no JVD. CHEST: Sternal dressing dry and intact. LUNGS: Equal air entry with crackles in the posterior bases. CVS: S1 and S2 normal with no audible murmur, regular rhythm. ABDOMEN: No hepatosplenomegaly, normal bowel sounds, no guarding or rigidity. SPINE: No scoliosis or deformity SKIN: No rashes CENTRAL NERVOUS SYSTEM: No focal deficits, tone is normal in all 4 extremities. EXTREMITIES: Sequential compression devices in place. There is trace peripheral edema. No clubbing, no cyanosis. Peripheral pulses are intact. - Labs CBC & Chem 7: 11/06/18 04:41 11/06/18 04:41 Labs: Abnormal Lab Results - Last 24 Hours (Table) 11/05/18 11/05/18 11/05/18 Range/Units 11:48 17:03 20:50 RBC (4.30-5.90) m/uL Hgb (13.0-17.5) gm/dL Hct (39.0-53.0) % Chloride (98-107) mmol/L Carbon Dioxide (22-30) mmol/L BUN (9-20) mg/dL Creatinine (0.66-1.25) mg/dL Glucose (74-99) mg/dL POC Glucose (mg/dL) 197 H 114 H 252 H (75-99) mg/dL AST (17-59) U/L ALT (21-72) U/L 11/06/18 11/06/18 11/06/18 Range/Units 02:13 04:41 04:41 RBC 2.93 L (4.30-5.90) m/uL Hgb 9.1 L (13.0-17.5) gm/dL Hct 27.3 L (39.0-53.0) % Chloride 90 L (98-107) mmol/L Carbon Dioxide 40 H (22-30) mmol/L BUN 119 H* (9-20) mg/dL Creatinine 2.44 H (0.66-1.25) mg/dL Glucose 100 H (74-99) mg/dL POC Glucose (mg/dL) 137 H (75-99) mg/dL AST 272 H (17-59) U/L ALT 627 H (21-72) U/L 11/06/18 Range/Units 07:06 RBC (4.30-5.90) m/uL Hgb (13.0-17.5) gm/dL Hct (39.0-53.0) % Chloride (98-107) mmol/L Carbon Dioxide (22-30) mmol/L BUN (9-20) mg/dL Creatinine (0.66-1.25) mg/dL Glucose (74-99) mg/dL POC Glucose (mg/dL) 135 H (75-99) mg/dL AST (17-59) U/L ALT (21-72) U/L Assessment and Plan Plan: #1 Severe mitral valve regurgitation with severely calcified mitral annulus, torn chordae to P1 posterior leaflet. He is status post complex mitral valve repair with resection of torn chordae to P1, posterior leaflet plication of P1 and P2, small resection P1-P2 leaflet, plication of both anterior mitral trigones, clip ligation of left atrial appendage. Post operative day #6. #2 Coronary artery disease with recent stent placement to the LAD on 09/24/2018. #3 Acute hypoxic respiratory failure secondary to an acute exacerbation of chronic diastolic congestive heart failure. The patient was given BiPAP support and later on high flow oxygen and currently is down to 2 L of oxygen by nasal cannula. Chest x-ray showing some limited atelectatic changes in lung bases. No significant respiratory distress. The patient is quite debilitated and weak. He is using incentive spirometer. Sternum stable clean and intact. All chest tubes have been removed. #4 Diabetes mellitus, type II. #5 Diabetic peripheral neuropathy. #6 Obesity. #7 Obstructive sleep apnea not on home CPAP. #8 Pulmonary hypertension. #9 History of significant pipe smoking without inhalation. FEV1 value of 54% predicted. #10 Hypertension. #11 Hyperlipidemia. #12 Osteoarthritis. #13 Elevated liver function testing, , likely secondary to shock liver and the patient's LFTs are also improving and the patient remains on oral amiodarone and liver functions continued to improve. #14 Acute renal failure , , improving and the patient's creatinine is down to 2.4, the patient is currently off diuretics and the patient is producing adequate amount of urine output. Plan Keep Lasix on hold. Monitor LFTs. Encourage ambulation. Incentive spirometer. Chest x-ray was reviewed. Keep the oxygen at 2 L. May transfer out of the intensive care unit at a later stage. These to work on his incentive spirometer more aggressively. He has not reached 1000 on his IS yet.
[2018-11-06] MEDS: HEPARIN SODIUM,PORCINE 5,000 UNIT/ML 1 ML VIAL SQ SCH ×3 (08:42→23:33)
[2018-11-06] MEDS: METOPROLOL TARTRATE 50 MG TAB PO SCH ×2 (08:42→20:35)
[2018-11-06] MEDS: CLOPIDOGREL 75 MG TAB PO SCH (08:43)
[2018-11-06] MEDS: MULTIVITAMINS, THERA 1 EACH TAB PO SCH (08:43)
[2018-11-06] MEDS: FERROUS SULFATE 325 MG TAB PO SCH (08:43)
[2018-11-06] MEDS: ASPIRIN 325 MG TAB PO SCH (08:43)
[2018-11-06] MEDS: PANTOPRAZOLE 40 MG TABLET PO SCH (08:43)
[2018-11-06] MEDS: CHOLECALCIFEROL 1,000 UNIT TAB PO SCH (08:43)
[2018-11-06] MEDS: AMIODARONE 200 MG TAB PO SCH ×2 (08:43→20:35)
[2018-11-06] MEDS: hydrALAZINE HCL 10 MG TAB PO SCH ×3 (08:44→21:44)
[2018-11-06] MEDS: SODIUM CHLORIDE 0.9% 500 ML 500 ML IV SCH (08:44)
--- NOTE | 2018-11-06 09:47 | P.PN ---
Subjective Progress Note Date: 11/06/18 Principal diagnosis: Severe eccentric mitral valve regurgitation, severely calcified mitral annulus, torn chordae to P1 posterior leaflet, past medical history significant for radha nary artery disease with recent drug-eluting stent placed to his left anterior descending coronary artery on 09/24/2018, chronic diastolic heart congestive failure, hypertension, hyperlipidemia, type 2 diabetes mellitus with peripheral neuropathy, chronic kidney disease with creatinine baseline around 2, obstructive sleep apnea without home CPAP use, pulmonary hypertension, obesity, osteoarthritis, remote history of tobacco dependence. POD #6 complex mitral valve repair with resection of torn chordae to P1, posterior leaflet plication of P1 and P2, small resection P1P2 leaflet, plication of both anterior mitral trigones, clip ligation of the left atrial appendage with a 35 mm Atriclip an intraoperative transesophageal echocardiogram. Postoperative acute blood loss anemia, an expected outcome due to cardiopulmonary bypass and hemodilution. Postoperative transaminitis with elevation of his AST and ALT, an unexpected outcome. The patient is currently sitting in a bedside chair in the intensive care unit. He is in no acute distress. He denies any complaints of pain or shortness of breath. The patient continues to be much more alert. He hemodynamically stable is currently on no inotropic or pressor support. Bedside telemetry is currently showing normal sinus rhythm heart rate [address] elevation, no further episodes of atrial fibrillation. He remains with generalized weakness, and is moving all 4 extremities appropriately. Oxygen saturation are 97% on 2 L nasal c annula oxygen. He is giving a good effort on his incentive spirometry and is achieving about 750 mL. Clinically the patient looks much better each day. His AST and ALT continue to trend down and this mornings AST is 272, and the ALT is 627. The patient has been ambulating in the intensive care unit hallway with minimal assistance from nursing staff and is walking the length of the ICU hallway. Dr. Martinez was consulted yesterday for possible inpatient rehab upon discharge. Objective - Vital Signs Vital signs: Vital Signs Temp 97.9 F 11/06/18 04:00 Pulse 73 11/06/18 09:00 Resp 14 11/06/18 09:00 BP 124/63 11/06/18 09:00 Pulse Ox 96 11/06/18 09:00 Intake & Output 11/05/18 11/06/18 11/06/18 18:59 06:59 18:59 Intake Total 100 0 Output Total 600 1050 275 Balance -500 -1050 -275 Weight 96 kg Intake: IV 0 0 Sodium Chloride 0.9% 500 0 ml 500 ml @ 20 mls/hr IV .Q24H [facility] Rx#:[id number] pressure bag 0 0 Intake, IV Titration 100 Amount Dextrose 5% in Water 100 100 ml @ 618 mls/hr IV .Q10M ONE with Amiodarone 150 mg Rx#:[id number] Output: Urine 600 1050 275 Other: Voiding Method Indwelling Catheter Urinal # Bowel Movements 1 ABP, PAP, CO, CI - Last Documented Arterial Blood Pressure 144/49 Pulmonary Artery Pressure 52/22 Cardiac Output 7.5 Cardiac Index 3.6 - Constitutional General appearance: Present: cooperative, no acute distress, obese - Respiratory Details: Lungs sounds essentially clear to his bilateral upper lobes, diminished bilateral bases. Respirations are symmetrical and nonlabored. Oxygen saturation is 97% on 2 L nasal cannula. Achieving 750 mL on his incentive spirometry. - Cardiovascular Details: Regular rhythm and rate. S1 and S2 present, negative for S3, gallop or murmur. Bedside telemetry showing normal sinus rhythm heart rate [address] elevation. Sternum is stable. Heart hugger is in place and he is demonstrating appropriate use. Knee-high GUERRERO hose and sequential compression devices in place to his bilateral lower extremities. No edema present. - Gastrointestinal Gastrointestinal Comment(s): Abdomen is soft, nontender and nondistended. Active bowel sounds present all 4 abdominal quadrants. No guarding or rigidity. No organomegaly appreciated. Bowel movement yesterday 11/05/2017. - Genitourinary Genitourinary Comment(s): Voiding clear yellow urine. - Integumentary Integumentary Comment(s): Skin is warm and dry. No clubbing or cyanosis is present. No rash or abnormal pigmentation is present. Midline sternal incision is clean, dry and approximated. No drainage or redness at present. Exofin dressing is clean, dry and in place. - Neurologic Neurologic Comment(s): No focal deficits. Neurologic: Present: CNII-XII intact - Musculoskeletal Musculoskeletal: Present: gait normal, generalized weakness, strength equal bilaterally - Psychiatric Psychiatric Comment(s): Flat affect Psychiatric: Present: A&O x's 3, intact judgment & insight - Allied health notes Allied health notes reviewed: nursing - Labs CBC & Chem 7: 11/06/18 04:41 11/06/18 04:41 Labs: Abnormal Lab Results - Last 24 Hours (Table) 11/05/18 11/05/18 11/05/18 Range/Units 11:48 17:03 20:50 RBC (4.30-5.90) m/uL Hgb (13.0-17.5) gm/dL Hct (39.0-53.0) % Chloride (98-107) mmol/L Carbon Dioxide (22-30) mmol/L BUN (9-20) mg/dL Creatinine (0.66-1.25) mg/dL Glucose (74-99) mg/dL POC Glucose (mg/dL) 197 H 114 H 252 H (75-99) mg/dL AST (17-59) U/L ALT (21-72) U/L 11/06/18 11/06/18 11/06/18 Range/Units 02:13 04:41 04:41 RBC 2.93 L (4.30-5.90) m/uL Hgb 9.1 L (13.0-17.5) gm/dL Hct 27.3 L (39.0-53.0) % Chloride 90 L (98-107) mmol/L Carbon Dioxide 40 H (22-30) mmol/L BUN 119 H* (9-20) mg/dL Creatinine 2.44 H (0.66-1.25) mg/dL Glucose 100 H (74-99) mg/dL POC Glucose (mg/dL) 137 H (75-99) mg/dL AST 272 H (17-59) U/L ALT 627 H (21-72) U/L 11/06/18 Range/Units 07:06 RBC (4.30-5.90) m/uL Hgb (13.0-17.5) gm/dL Hct (39.0-53.0) % Chloride (98-107) mmol/L Carbon Dioxide (22-30) mmol/L BUN (9-20) mg/dL Creatinine (0.66-1.25) mg/dL Glucose (74-99) mg/dL POC Glucose (mg/dL) 135 H (75-99) mg/dL AST (17-59) U/L ALT (21-72) U/L - Imaging and Cardiology Chest x-ray: report reviewed, image reviewed Assessment and Plan Assessment: 1. Severe eccentric mitral valve regurgitation, severely calcified mitral annulus, performed chordee to P1 posterior leaflet, status post mitral valve repair 2. Coronary artery disease with recent drug-eluting stent to the LAD on 09/24/2018 3. Chronic diastolic heart failure 4. Hypertension 5. Hyperlipidemia 6. Type 2 diabetes mellitus with peripheral neuropathy 7. Chronic kidney disease with creatinine baseline around 2 8. Obstructive sleep apnea without home CPAP use 9. Pulmonary hypertension 10. Obesity 11. Osteoarthritis 12. Remote history of tobacco dependence 13. Postoperative acute blood loss anemia, an expected outcome 14. Postoperative transaminitis with elevation of his AST and ALT, an unexpected outcome Plan: 1. Continue aspirin, Plavix, and beta sun. Will increase his beta sun as tolerated. 2. Continue hydralazine 10 mg by mouth 3 times a day for afterload reduction. 3. Wean O2 as tolerated. Encourage incentive spirometry use 10 times every hour while awake. 4. Increase activity, ambulate as tolerated. PT/OT/cardiac rehab following. 5. Will monitor daily labs and chest x-rays. Electrolyte replacement per protocol. 6. Bronchodilators per pulmonology management. 7. Pain control with current medication regimen. Avoid Toradol due to his renal function. 8. Insulin management per primary care service. 9. Continue accurate I&O and daily weights . 10. Dr. Martinez's consult noted and appreciated. Anticipate the need for inpatient rehab upon discharge. 11. Avoid nephrotoxic medications. 12. Encourage continued cessation of tobacco. 13. Continue to hold Lipitor due to his elevation of his AST and ALT, start the Lipitor once his liver enzymes have normalized. liver enzymes trending down. 14. Continue amiodarone 400 mg by mouth twice a day for atrial fibrillation prophylaxis. 15. Transferred to 3 S. cardiac stepdown unit today for further rehabilitation needs. 16. More recommendations to follow based on patient's clinical course. Time with Patient: Greater than 30
--- NOTE | 2018-11-06 09:50 | XR ---
EXAMINATION TYPE: XR chest 2V DATE OF EXAM: 11/06/2018 COMPARISON: 11/05/2018 HISTORY: Postop TECHNIQUE: Frontal and lateral views of the chest are obtained. FINDINGS: Sternotomy wires and surgical clips overlying mediastinum. Postsurgical changes of mini ma ze procedure. Redemonstration of cardiomegaly. Pulmonary vasculature appears within normal limits. Pe rsistent strandy opacities at the left lung base. No pneumothorax. Trace pleural effusion. Osseous st ructures are grossly intact. IMPRESSION: Similar left basilar atelectasis or infiltrate.
[2018-11-06 12:03] LABS: Glucose,Whole Blood 257 mg/dL (75-99)
[2018-11-06] MEDS: ASCORBIC ACID 500 MG TAB PO SCH (12:11)
[2018-11-06 16:02] LABS: Glucose,Whole Blood 176 mg/dL (75-99)
[2018-11-06 20:27] LABS: Glucose,Whole Blood 161 mg/dL (75-99)
[2018-11-06] MEDS: SENNOSIDES-DOCUSATE SODIUM 1 EACH TAB PO SCH (20:35)
[2018-11-06] MEDS: INSULIN DETEMIR (LEVEMIR) 100 UNIT/ML SYR SQ SCH (20:36)
--- NOTE | 2018-11-06 22:08 | P.PN ---
Subjective Progress Note Date: 11/06/18 Principal diagnosis: This is a 73-year-old male was admitted to have mitral valve replacement and is being closely monitored. Patient is sitting up in the recliner talking to family on the phone in no acute distress. Patient has been up and walking around the room with no difficulties. Cardiology is following. Patient is to undergo surgery in the morning. Patient is currently on IV Aggrastat. Patient denies any shortness of breath, chest pain, or palpitations at this time. Patient denies any nausea or vomiting. Patient is afebrile. Patient states he is just waiting for his heart surgery tomorrow. Guarded prognosis. This is a 73-year-old male who is currently in the ICU on postop day #1 who underwent mitral valve repair with resection with Dr. Lozada. Patient was extubated and is currently on a BiPAP. Patient is tolerating well. Patient is being closely monitored. Family is at the bedside. Patient is currently still on an insulin drip at 7.5 units per hour and is being closely monitored. Patient still has a chest tube on the left side with a total of 210 mL output over the last 8 hours. Patient still has an indwelling Burrell catheter and monitoring output as well. Dr. Celis is following the patient closely. 11/02/2018 Today patient is still currently in the ICU and post op day #2 for the mitral valve repair with resection and is being closely monitored. Patient is currently still on a Bipap with settings of 12/5, 50% Fi02. Patient is hemodynamically stable after receiving 1 unit of PRBC earlier this morning. Patient denies any new shortness of breath, chest pain, or palpitations. Patient is tolerating the Bipap. Patient has poor incentive spirometer use and achieving 200. Patient is very lethargic but easily arousable. Patient will be working with PT/OT once respiratory status has stabilized. Patient is currently on a lasix drip and u rine output has slightly improved. Patient is also on Cleviprex for blood pressure control. Prognosis is extremely guarded. Will continue to monitor closely. 11/05/2018 Patient is currently sitting up in the recliner eating lunch in no acute distress. Patient is currently still in the ICU postop day #5 and is being closely monitored status post mitral valve replacement. Patient is off the BiPA P and currently on 2 L via nasal cannula and oxygenating well. Patient has a poor response with his incentive spirometer of approximately 4-500 Max. Discussed with the patient at length about attempting incentive spirometer at least 10 times per hour while awake. at the bedside. Patient is a poor oral intake stating that he doesn't have much of an appetite. Patient is attempting to eat with each meal. Blood sugars are being monitored closely and we'll continue to treat accordingly. Patient denies any chest pain, palpitations and states that his shortness of breath has improved but still gets winded while walking. Patient walked to the hallway and back as well as to the bathroom with PT/OT. Patient denies any nausea or vomiting at this time. Patient is afebrile. Patient's liver functions were elevated but are trending down. Creatinine is slowly improving as well. Current creatinine is 2.75 down from 3.03. IV Lasix drip was discontinued. Patient is urinating well with good output. Patient states he has not had a bowel movement yet but was given a laxative. Patient denies any abdominal discomfort at this time. Guarded prognosis. 11/06/2018 Patient remains in the ICU this morning and is sitting up in the recliner in no acute distress. Patient is overall looking and feeling much better. Patient states that he has been working on his incentive spirometer when prompted and is achieving 750 at times. Patient states that his shortness of breath has improved. Patient still states that he gets a little fatigued with walking but is improving. PT/OT/cardiac rehab are following. Patient is being closely monitored by pulmonary, cardiothoracic, and cardiology. Patient states that he is eating more and denies any nausea or vomiting. Patient had a bowel movement yesterday. Patient denies any abdominal pain at this time. Patient's blood sugars have been monitored closely and treated accordingly. Patient is able to move out of the ICU at this time. Patient remains afebrile. Current creatinine is 2.4 and trending down. Patient is still off lasix drip at this time. Guarded prognosis. Objective - Vital Signs Vital signs: Vital Signs Temp 98.4 F 11/06/18 20:00 Pulse 68 11/06/18 21:00 Resp 17 11/06/18 21:00 BP 138/73 11/06/18 21:00 Pulse Ox 99 11/06/18 21:00 Intake & Output 11/06/18 11/06/18 11/07/18 06:59 18:59 06:59 Intake Total 0 0 0 Output Total 4553 037 121 Balance -1892 -949 -997 Weight 96 kg Intake: IV 0 0 0 pressure bag 0 0 0 Output: Urine 2188 895 546 Other: Voiding Method Urinal Urinal # Bowel Movements 1 ABP, PAP, CO, CI - Last Documented Arterial Blood Pressure 144/49 Pulmonary Artery Pressure 52/22 Cardiac Output 7.5 Cardiac Index 3.6 - Exam Gen: This is a 73-year-old male sitting up in recliner in no acute distress. Vital signs are stable. Blood pressure is 124/63, pulse is 73, respirations are 14, oxygen saturation is 96% on 2 L via nasal cannula. Temp is 97.9F. HEENT: Head is atraumatic, normocephalic. Pupils equal, round. Sclerae is anicteric. NECK: Supple. No JVD. No lymphadenopathy. No thyromegaly. LUNGS: Lung sounds diminished at the bases with a few scattered rhonchi and crackles noted. Mild expiratory wheezing noted. No intercostal retractions. HEART: S1 and S2 are muffled ABDOMEN: Soft. Bowel sounds are present. No masses. No tenderness. EXTREMITIES: No pedal edema. No calf tenderness. NEUROLOGICAL: Patient is awake, alert and oriented x3. Cranial nerves 2 through 12 are grossly intact. - Labs CBC & Chem 7: 11/06/18 04:41 11/06/18 04:41 Labs: Abnormal Lab Results - Last 24 Hours (Table) 11/06/18 11/06/18 11/06/18 Range/Units 02:13 04:41 04:41 RBC 2.93 L (4.30-5.90) m/uL Hgb 9.1 L (13.0-17.5) gm/dL Hct 27.3 L (39.0-53.0) % Chloride 90 L (98-107) mmol/L Carbon Dioxide 40 H (22-30) mmol/L BUN 119 H* (9-20) mg/dL Creatinine 2.44 H (0.66-1.25) mg/dL Glucose 100 H (74-99) mg/dL POC Glucose (mg/dL) 137 H (75-99) mg/dL AST 272 H (17-59) U/L ALT 627 H (21-72) U/L 11/06/18 11/06/18 11/06/18 Range/Units 07:06 11:59 15:58 RBC (4.30-5.90) m/uL Hgb (13.0-17.5) gm/dL Hct (39.0-53.0) % Chloride (98-107) mmol/L Carbon Dioxide (22-30) mmol/L BUN (9-20) mg/dL Creatinine (0.66-1.25) mg/dL Glucose (74-99) mg/dL POC Glucose (mg/dL) 135 H 257 H 176 H (75-99) mg/dL AST (17-59) U/L ALT (21-72) U/L 11/06/18 Range/Units 20:24 RBC (4.30-5.90) m/uL Hgb (13.0-17.5) gm/dL Hct (39.0-53.0) % Chloride (98-107) mmol/L Carbon Dioxide (22-30) mmol/L BUN (9-20) mg/dL Creatinine (0.66-1.25) mg/dL Glucose (74-99) mg/dL POC Glucose (mg/dL) 161 H (75-99) mg/dL AST (17-59) U/L ALT (21-72) U/L Assessment and Plan Assessment: Severe mitral regurgitation: Patient underwent mitral valve replacement. Carotid disease with recent myocardial infarction and stent placement Severe pulmonary hypertension Chronic diastolic dysfunction, congestive heart failure Chronic kidney disease stage III creatinine is baseline was 2.11. We'll continue to monitor closely Acute on chronic renal failure Elevated LFTs, possibly drug-induced; trending down Hyperlipidemia Gastroesophageal reflux disease Diabetes mellitus type 2 with diabetic nephropathy: Patient will be resumed on home medications. Will titrate insulin and diabetic medications depending on blood sugar readings. DVT prophylaxis: Patient is on heparin subq every 8 hours Atelectasis Recommendations and discussion Recommend continue current medications, management, and symptomatic treatment. Patient is currently still in the ICU but stable for transfer per cardiothoracic surgery to [address] [place] [id number]. Will continue to monitor labs and vital signs closely. Cardiology, pulmonary, and cardiothoracic surgery are following closely. PT/OT/cardiac rehab following the patient. Will continue to monitor blood sugars closely and treat accordingly. Continue to encourage incentive spirometer use every hour while awake. Guarded prognosis. Further recommendations to follow.
[2018-11-07] MEDS: INSULIN ASPART (NovoLOG) 100 UNIT/ML VIAL SQ SCH ×8 (02:24→21:01)
[2018-11-07 02:31] LABS: Glucose,Whole Blood 134 mg/dL (75-99)
[2018-11-07 05:07] LABS: Anisocytosis Slight; HCT 27.5 % (39.0-53.0); HGB 8.9 gm/dL (13.0-17.5); Hypochromasia Slight; MCH 30.7 pg (25.0-35.0); MCHC 32.3 g/dL (31.0-37.0); MCV 94.8 fL (80.0-100.0); Mean Platelet Volume 7.5; Platelet Count 323 k/uL (150-450); RDW 16.3 % (11.5-15.5); WBC 12.7 k/uL (3.8-10.6)
[2018-11-07 05:19] LABS: Albumin 3.8 g/dL (3.5-5.0); Calcium 8.8 mg/dL (8.4-10.2); Potassium 4.5 mmol/L (3.5-5.1); Total Bilirubin 1.1 mg/dL (0.2-1.3); Total Protein 6.8 g/dL (6.3-8.2)
--- NOTE | 2018-11-07 07:27 | P.PN ---
Subjective Progress Note Date: 11/07/18 Principal diagnosis: Severe mitral regurgitation This is a 73-year-old gentleman with CAD and prior stenting of the LAD, severe mitral regurgitation, underwent mitral valve repair. On follow-up with the patient today, 11/07/2018, the patient is doing good from a perivascular standpoint overview. Clinically is looking good. Hemodynamically he is stable as well. Urine output is good. Chest x-ray seems to be the same as before. He continues to be on dual antiplatelet therapy. Beside that the liver function tests has been trending down. The creatinine is better as well. The hemoglobin continues to be stable. Objective - Vital Signs Vital signs: Vital Signs Temp 97.8 F 11/07/18 04:00 Pulse 68 11/07/18 06:00 Resp 18 11/07/18 06:00 BP 135/69 11/07/18 06:00 Pulse Ox 98 11/07/18 06:00 Intake & Output 11/06/18 11/07/18 11/07/18 18:59 06:59 18:59 Intake Total 0 0 Output Total 625 825 150 Balance -625 -825 -150 Weight 95.8 kg Intake: IV 0 0 pressure bag 0 0 Output: Urine 625 825 150 Other: Voiding Method Urinal Urinal # Bowel Movements 1 ABP, PAP, CO, CI - Last Documented Arterial Blood Pressure 144/49 Pulmonary Artery Pressure 52/22 Cardiac Output 7.5 Cardiac Index 3.6 - Constitutional General appearance: Present: no acute distress - Respiratory Respiratory: bilateral: CTA - Cardiovascular Rhythm: regular - Labs CBC & Chem 7: 11/07/18 04:14 11/07/18 04:14 Labs: Abnormal Lab Results - Last 24 Hours (Table) 11/06/18 11/06/18 11/06/18 Range/Units 07:06 11:59 15:58 WBC (3.8-10.6) k/uL RBC (4.30-5.90) m/uL Hgb (13.0-17.5) gm/dL Hct (39.0-53.0) % RDW (11.5-15.5) % Sodium (137-145) mmol/L Chloride (98-107) mmol/L Carbon Dioxide (22-30) mmol/L BUN (9-20) mg/dL Creatinine (0.66-1.25) mg/dL Glucose (74-99) mg/dL POC Glucose (mg/dL) 135 H 257 H 176 H (75-99) mg/dL AST (17-59) U/L ALT (21-72) U/L 11/06/18 11/07/18 11/07/18 Range/Units 20:24 02:17 04:14 WBC 12.7 H (3.8-10.6) k/uL RBC 2.90 L (4.30-5.90) m/uL Hgb 8.9 L (13.0-17.5) gm/dL Hct 27.5 L (39.0-53.0) % RDW 16.3 H (11.5-15.5) % Sodium (137-145) mmol/L Chloride (98-107) mmol/L Carbon Dioxide (22-30) mmol/L BUN (9-20) mg/dL Creatinine (0.66-1.25) mg/dL Glucose (74-99) mg/dL POC Glucose (mg/dL) 161 H 134 H (75-99) mg/dL AST (17-59) U/L ALT (21-72) U/L 11/07/18 Range/Units 04:14 WBC (3.8-10.6) k/uL RBC (4.30-5.90) m/uL Hgb (13.0-17.5) gm/dL Hct (39.0-53.0) % RDW (11.5-15.5) % Sodium 136 L (137-145) mmol/L Chloride 92 L (98-107) mmol/L Carbon Dioxide 39 H (22-30) mmol/L BUN 112 H* (9-20) mg/dL Creatinine 2.13 H (0.66-1.25) mg/dL Glucose 122 H (74-99) mg/dL POC Glucose (mg/dL) (75-99) mg/dL AST 149 H (17-59) U/L ALT 456 H (21-72) U/L Assessment and Plan Assessment: Assessment #1 CAD and status post LAD stenting #2 severe mitral regurgitation and status post repair #3 multiple comorbid conditions including hypertension and dyslipidemia Plan #1 continue the current medical regimen #2 continue monitor the kidney function and liver function #3 follow-up with the patient #4 the patient to be able to be transferred out of the ICU.
[2018-11-07 07:36] LABS: Glucose,Whole Blood 132 mg/dL (75-99)
--- NOTE | 2018-11-07 08:03 | P.PN ---
Subjective Progress Note Date: 11/07/18 Principal diagnosis: Severe eccentric mitral valve regurgitation, severely calcified mitral annulus, torn chordae to P1 posterior leaflet. Previous medical history of coronary art marcel disease with recent drug-eluting stent placed to the LAD on 09/24/2018, chronic diastolic heart failure, hypertension, hyperlipidemia, type 2 diabetes mellitus with peripheral neuropathy and preoperative hemoglobin A1c 7%, chronic kidney disease with baseline creatinine around 2, moderate COPD with preoperative FEV1 54% of predicted, obstructive sleep apnea without home CPAP use, pulmonary hypertension, obesity, osteoarthritis, previous pipe tobacco use. Preoperative tooth abscess with extraction and antibiotic administration, cleared for surgery by dentist. POD #7 complex mitral valve repair with resection of torn chordae to P1, posterior leaflet plication of P1 and P2, small resection P1P2 leaflet, plication of both anterior mitral trigones, clip ligation of the left atrial appendage with a 35 mm AtriClip and intraoperative transesophageal echocardiogram. Postoperative acute blood loss anemia, expected outcome secondary to cardiopulmonary bypass and hemodilution Postoperative transaminitis, unexpected Postoperative atrial fibrillation, unexpected The patient is currently sitting up in the recliner eating breakfast in the intensive care unit in no acute distress. Does complain of post surgical type pain with deep breathing and coughing, denies shortness of breath. Normal sinus rhythm and hemodynamically stable. He has been able to ambulate in the hallway with assistance. Liver enzymes are trending down, kidney function is improving. Transfer orders were placed yesterday for 3 S. cardiac stepdown unit, no bed availability. Patient will need rehabilitation at discharge, and Dr. Martinez was consulted. Objective - Vital Signs Vital signs: Vital Signs Temp 97.8 F 11/07/18 04:00 Pulse 68 11/07/18 06:00 Resp 18 11/07/18 06:00 BP 135/69 11/07/18 06:00 Pulse Ox 98 11/07/18 06:00 Intake & Output 11/06/18 11/07/18 11/07/18 18:59 06:59 18:59 Intake Total 0 0 Output Total 625 825 150 Balance -507 -820 -150 Weight 95.8 kg Intake: IV 0 0 pressure bag 0 0 Output: Urine 625 825 150 Other: Voiding Method Urinal Urinal # Bowel Movements 1 ABP, PAP, CO, CI - Last Documented Arterial Blood Pressure 144/49 Pulmonary Artery Pressure 52/22 Cardiac Output 7.5 Cardiac Index 3.6 - Constitutional General appearance: Present: cooperative, no acute distress, obese - Respiratory Details: Lungs sounds diminished bilaterally with coarse breath sounds in the bases. Respirations even, nonlabored. Currently on 2 L nasal cannula with oxygen saturation 98%. Able to achieve 500-750 mL on his incentive spirometry. Strong nonproductive cough. - Cardiovascular Details: S1, S2 present. Regular rate and rhythm, sinus rhythm on telemetry. Sternum stable. Palpable peripheral pulses bilaterally. No edema present. No calf pain or tenderness noted. Heart hugger in place with patient demonstrating appropriate use. Antiembolism stockings, SCDs present. - Gastrointestinal Gastrointestinal Comment(s): Abdomen soft, nontender, nondistended, obese. Active bowel sounds present 4 quadrants. Tolerating diet. Positive bowel movement yesterday. - Genitourinary Genitourinary Comment(s): Continues to void clear, yellow urine. - Integumentary Integumentary Comment(s): Skin is warm and dry with evidence of good perfusion. Anterior chest incision well approximated and covered with dry intact dressing. - Neurologic Neurologic: Present: CNII-XII intact - Musculoskeletal Musculoskeletal: Present: gait normal, generalized weakness, strength equal bilaterally - Psychiatric Psychiatric: Present: A&O x's 3, appropriate affect, intact judgment & insight - Allied health notes Allied health notes reviewed: nursing - Labs CBC & Chem 7: 11/07/18 04:14 11/07/18 04:14 Labs: Abnormal Lab Results - Last 24 Hours (Table) 11/06/18 11/06/18 11/06/18 Range/Units 11:59 15:58 20:24 WBC (3.8-10.6) k/uL RBC (4.30-5.90) m/uL Hgb (13.0-17.5) gm/dL Hct (39.0-53.0) % RDW (11.5-15.5) % Sodium (137-145) mmol/L Chloride (98-107) mmol/L Carbon Dioxide (22-30) mmol/L BUN (9-20) mg/dL Creatinine (0.66-1.25) mg/dL Glucose (74-99) mg/dL POC Glucose (mg/dL) 257 H 176 H 161 H (75-99) mg/dL AST (17-59) U/L ALT (21-72) U/L 11/07/18 11/07/18 11/07/18 Range/Units 02:17 04:14 04:14 WBC 12.7 H (3.8-10.6) k/uL RBC 2.90 L (4.30-5.90) m/uL Hgb 8.9 L (13.0-17.5) gm/dL Hct 27.5 L (39.0-53.0) % RDW 16.3 H (11.5-15.5) % Sodium 136 L (137-145) mmol/L Chloride 92 L (98-107) mmol/L Carbon Dioxide 39 H (22-30) mmol/L BUN 112 H* (9-20) mg/dL Creatinine 2.13 H (0.66-1.25) mg/dL Glucose 122 H (74-99) mg/dL POC Glucose (mg/dL) 134 H (75-99) mg/dL AST 149 H (17-59) U/L ALT 456 H (21-72) U/L 11/07/18 Range/Units 06:46 WBC (3.8-10.6) k/uL RBC (4.30-5.90) m/uL Hgb (13.0-17.5) gm/dL Hct (39.0-53.0) % RDW (11.5-15.5) % Sodium (137-145) mmol/L Chloride (98-107) mmol/L Carbon Dioxide (22-30) mmol/L BUN (9-20) mg/dL Creatinine (0.66-1.25) mg/dL Glucose (74-99) mg/dL POC Glucose (mg/dL) 132 H (75-99) mg/dL AST (17-59) U/L ALT (21-72) U/L - Imaging and Cardiology Chest x-ray: image reviewed Assessment and Plan Assessment: 1. Severe eccentric mitral valve regurgitation with severely calcified mitral annulus and torn chordae to P1 posterior leaflet, status post complex mitral valve repair 2. Coronary artery disease with recent drug-eluting stent to the LAD on 09/24/2018 3. Chronic diastolic heart failure 4. Hypertension 5. Hyperlipidemia 6. Type 2 diabetes mellitus with peripheral neuropathy and hemoglobin A1c 7% 7. Chronic kidney disease with creatinine baseline around 2 8. Moderate COPD with preoperative FEV1 54% of predicted 9. Obstructive sleep apnea without home CPAP use 10. Pulmonary hypertension 11. Obesity 12. Osteoarthritis 13. Previous pipe tobacco dependence 14. Preoperative tooth abscess with extraction and antibiotics 15. Postoperative acute blood loss anemia 16. Postoperative transaminitis 17. Postoperative atrial fibrillation Plan: 1. Continue aspirin, Plavix, beta sun therapy. Will increase beta sun therapy as tolerated. Continue to hold statin is secondary to transaminitis, we will reinitiate once liver enzymes have normalized. 2. Continue amiodarone for A. fib prophylaxis. No anticoagulation at this point. 3. Continue hydralazine for afterload reduction. 4. Will monitor daily labs, chest x-rays. No transfusion. Electrolyte replacement per protocol. 5. Pain control with current medication regimen. No Toradol secondary to kidney function. 6. Wean O2 as tolerated. Encourage incentive spirometry use 10 times every hour while awake. Bronchodilators per pulmonology. 7. Insulin/diabetic management per primary care service. 8. Increase activity, ambulate in hallway. PT/OT/cardiac rehab following. 9. Transfer orders placed yesterday for 3 S. cardiac stepdown unit. May transfer when bed available. 10. Discharge planning in progress. Anticipate discharge to inpatient rehab in the next 24-48 hours. 11. More recommendations to follow. Time with Patient: Greater than 30
[2018-11-07] MEDS: IPRATROPIUM-ALBUTEROL 3 ML NEB INHALATION SCH ×4 (08:18→19:18)
[2018-11-07] MEDS: PANTOPRAZOLE 40 MG TABLET PO SCH (08:37)
[2018-11-07] MEDS: CHOLECALCIFEROL 1,000 UNIT TAB PO SCH (08:38)
[2018-11-07] MEDS: HEPARIN SODIUM,PORCINE 5,000 UNIT/ML 1 ML VIAL SQ SCH ×3 (08:38→23:34)
[2018-11-07] MEDS: CLOPIDOGREL 75 MG TAB PO SCH (08:40)
[2018-11-07] MEDS: ASPIRIN 325 MG TAB PO SCH (08:40)
[2018-11-07] MEDS: AMIODARONE 200 MG TAB PO SCH ×2 (08:40→21:01)
[2018-11-07] MEDS: SODIUM CHLORIDE 0.9% 500 ML 500 ML IV SCH (08:40)
[2018-11-07] MEDS: MULTIVITAMINS, THERA 1 EACH TAB PO SCH (08:41)
[2018-11-07] MEDS: hydrALAZINE HCL 10 MG TAB PO SCH ×3 (08:41→23:24)
[2018-11-07] MEDS: METOPROLOL TARTRATE 50 MG TAB PO SCH ×2 (08:41→21:01)
[2018-11-07] MEDS: FERROUS SULFATE 325 MG TAB PO SCH (08:41)
--- NOTE | 2018-11-07 08:55 | XR ---
EXAMINATION TYPE: XR chest 1V portable DATE OF EXAM: 11/07/2018 COMPARISON: 11/06/2018 HISTORY: Postoperative mitral valve repair. TECHNIQUE: Single frontal view of the chest is obtained. FINDINGS: Sternotomy wires and surgical clips overlying the mediastinum. Post surgical changes of mi ni maze procedure. Redemonstration of cardiomegaly. Pulmonary vasculature appears within normal limit s. Right lung is clear. No pneumothorax. Persistent strandy opacities at the left lung base, similar to prior. Osseous structures are grossly intact. IMPRESSION: Overall, no significant change when compared to prior exam. Stable left basilar atelecta sis/scarring or infiltrate.
[2018-11-07 11:47] LABS: Glucose,Whole Blood 294 mg/dL (75-99)
[2018-11-07] MEDS: ASCORBIC ACID 500 MG TAB PO SCH (12:17)
[2018-11-07 15:49] LABS: Glucose,Whole Blood 117 mg/dL (75-99)
--- NOTE | 2018-11-07 16:18 | P.PN ---
Subjective Progress Note Date: 11/07/18 Principal diagnosis: This is a 73-year-old male was admitted to have mitral valve replacement and is being closely monitored. Patient is sitting up in the recliner talking to family on the phone in no acute distress. Patient has been up and walking around the room with no difficulties. Cardiology is following. Patient is to undergo surgery in the morning. Patient is currently on IV Aggrastat. Patient denies any shortness of breath, chest pain, or palpitations at this time. Patient denies any nausea or vomiting. Patient is afebrile. Patient states he is just waiting for his heart surgery tomorrow. Guarded prognosis. This is a 73-year-old male who is currently in the ICU on postop day #1 who underwent mitral valve repair with resection with Dr. Lozada. Patient was extubated and is currently on a BiPAP. Patient is tolerating well. Patient is being closely monitored. Family is at the bedside. Patient is currently still on an insulin drip at 7.5 units per hour and is being closely monitored. Patient still has a chest tube on the left side with a total of 210 mL output over the last 8 hours. Patient still has an indwelling Burrell catheter and monitoring output as well. Dr. Celis is following the patient closely. 11/02/2018 Today patient is still currently in the ICU and post op day #2 for the mitral valve repair with resection and is being closely monitored. Patient is currently still on a Bipap with settings of 12/5, 50% Fi02. Patient is hemodynamically stable after receiving 1 unit of PRBC earlier this morning. Patient denies any new shortness of breath, chest pain, or palpitations. Patient is tolerating the Bipap. Patient has poor incentive spirometer use and achieving 200. Patient is very lethargic but easily arousable. Patient will be working with PT/OT once respiratory status has stabilized. Patient is currently on a lasix drip and u rine output has slightly improved. Patient is also on Cleviprex for blood pressure control. Prognosis is extremely guarded. Will continue to monitor closely. 11/05/2018 Patient is currently sitting up in the recliner eating lunch in no acute distress. Patient is currently still in the ICU postop day #5 and is being closely monitored status post mitral valve replacement. Patient is off the BiPA P and currently on 2 L via nasal cannula and oxygenating well. Patient has a poor response with his incentive spirometer of approximately 4-500 Max. Discussed with the patient at length about attempting incentive spirometer at least 10 times per hour while awake. at the bedside. Patient is a poor oral intake stating that he doesn't have much of an appetite. Patient is attempting to eat with each meal. Blood sugars are being monitored closely and we'll continue to treat accordingly. Patient denies any chest pain, palpitations and states that his shortness of breath has improved but still gets winded while walking. Patient walked to the hallway and back as well as to the bathroom with PT/OT. Patient denies any nausea or vomiting at this time. Patient is afebrile. Patient's liver functions were elevated but are trending down. Creatinine is slowly improving as well. Current creatinine is 2.75 down from 3.03. IV Lasix drip was discontinued. Patient is urinating well with good output. Patient states he has not had a bowel movement yet but was given a laxative. Patient denies any abdominal discomfort at this time. Guarded prognosis. 11/06/2018 Patient remains in the ICU this morning and is sitting up in the recliner in no acute distress. Patient is overall looking and feeling much better. Patient states that he has been working on his incentive spirometer when prompted and is achieving 750 at times. Patient states that his shortness of breath has improved. Patient still states that he gets a little fatigued with walking but is improving. PT/OT/cardiac rehab are following. Patient is being closely monitored by pulmonary, cardiothoracic, and cardiology. Patient states that he is eating more and denies any nausea or vomiting. Patient had a bowel movement yesterday. Patient denies any abdominal pain at this time. Patient's blood sugars have been monitored closely and treated accordingly. Patient is able to move out of the ICU at this time. Patient remains afebrile. Current creatinine is 2.4 and trending down. Patient is still off lasix drip at this time. Guarded prognosis. 11/07/2018 Patient is sitting up in the recliner still currently in the ICU awaiting a bed assignment on 3 S. in no acute distress. Patient denies any chest pain, shortness of breath, or palpitations at this time. Patient does have some minor chest discomfort due to surgery but is manageable. Patient has a working on his incentive spirometer. Patient denies any nausea or vomiting and is tolerating diet. Patient is urinating well. SCDs are present. Patient does have some mild pedal edema that is improving. Patient remains afebrile. Patient is tentatively going to [facility] in the morning for inpatient rehab. LFTs are trending down. Creatinine today is 2.13. Blood sugars are being monitored closely. Guarded prognosis. Objective - Vital Signs Vital signs: Vital Signs Temp 97.8 F 11/07/18 04:00 Pulse 62 11/07/18 15:46 Resp 21 11/07/18 15:00 BP 128/57 11/07/18 15:00 Pulse Ox 97 11/07/18 15:00 Intake & Output 11/06/18 11/07/18 11/07/18 18:59 06:59 18:59 Intake Total 0 0 240 Output Total 625 825 550 Balance -625 -825 -310 Weight 95.8 kg 95.8 kg Intake: IV 0 0 pressure bag 0 0 Oral 240 Output: Urine 625 825 550 Other: Voiding Method Urinal Urinal Urinal # Bowel Movements 1 ABP, PAP, CO, CI - Last Documented Arterial Blood Pressure 144/49 Pulmonary Artery Pressure 52/22 Cardiac Output 7.5 Cardiac Index 3.6 - Exam Gen: This is a 73-year-old male sitting up in recliner in no acute distress. Vital signs are stable. HEENT: Head is atraumatic, normocephalic. Pupils equal, round. Sclerae is anicteric. NECK: Supple. No JVD. No lymphadenopathy. No thyromegaly. LUNGS: Lung sounds diminished at the bases with a few scattered rhonchi and crackles noted. Mild expiratory wheezing noted. No intercostal retractions. HEART: S1 and S2 are muffled ABDOMEN: Soft. Bowel sounds are present. No masses. No tenderness. EXTREMITIES: Mild pedal edema. No calf tenderness. NEUROLOGICAL: Patient is awake, alert and oriented x3. Cranial nerves 2 through 12 are grossly intact. Patient has been walking with PT/OT and tolerating well. - Labs CBC & Chem 7: 11/07/18 04:14 11/07/18 04:14 Labs: Abnormal Lab Results - Last 24 Hours (Table) 11/06/18 11/07/18 11/07/18 Range/Units 20:24 02:17 04:14 WBC 12.7 H (3.8-10.6) k/uL RBC 2.90 L (4.30-5.90) m/uL Hgb 8.9 L (13.0-17.5) gm/dL Hct 27.5 L (39.0-53.0) % RDW 16.3 H (11.5-15.5) % Sodium (137-145) mmol/L Chloride (98-107) mmol/L Carbon Dioxide (22-30) mmol/L BUN (9-20) mg/dL Creatinine (0.66-1.25) mg/dL Glucose (74-99) mg/dL POC Glucose (mg/dL) 161 H 134 H (75-99) mg/dL AST (17-59) U/L ALT (21-72) U/L 11/07/18 11/07/18 11/07/18 Range/Units 04:14 06:46 11:43 WBC (3.8-10.6) k/uL RBC (4.30-5.90) m/uL Hgb (13.0-17.5) gm/dL Hct (39.0-53.0) % RDW (11.5-15.5) % Sodium 136 L (137-145) mmol/L Chloride 92 L (98-107) mmol/L Carbon Dioxide 39 H (22-30) mmol/L BUN 112 H* (9-20) mg/dL Creatinine 2.13 H (0.66-1.25) mg/dL Glucose 122 H (74-99) mg/dL POC Glucose (mg/dL) 132 H 294 H (75-99) mg/dL AST 149 H (17-59) U/L ALT 456 H (21-72) U/L 11/07/18 Range/Units 14:47 WBC (3.8-10.6) k/uL RBC (4.30-5.90) m/uL Hgb (13.0-17.5) gm/dL Hct (39.0-53.0) % RDW (11.5-15.5) % Sodium (137-145) mmol/L Chloride (98-107) mmol/L Carbon Dioxide (22-30) mmol/L BUN (9-20) mg/dL Creatinine (0.66-1.25) mg/dL Glucose (74-99) mg/dL POC Glucose (mg/dL) 117 H (75-99) mg/dL AST (17-59) U/L ALT (21-72) U/L Assessment and Plan Assessment: Severe mitral regurgitation: Patient underwent mitral valve replacement. Carotid disease with recent myocardial infarction and stent placement Severe pulmonary hypertension Chronic diastolic dysfunction, congestive heart failure Chronic kidney disease stage III creatinine is baseline was 2.11. We'll continue to monitor closely creatinine today is 2.13 Acute on chronic renal failure Elevated LFTs, possibly drug-induced; trending down Hyperlipidemia Gastroesophageal reflux disease Diabetes mellitus type 2 with diabetic nephropathy: Patient will be resumed on home medications. Will titrate insulin and diabetic medications depending on blood sugar readings. DVT prophylaxis: Patient is on heparin subq every 8 hours Atelectasis Recommendations and discussion Recommend continue current medications, management, and symptomatic treatment. Patient is currently still in the ICU but stable for transfer per cardiothoracic surgery to [address] [place] [id number]. There was no bed available at the time on [address] [place] [id number]. Patient will tentatively be going to [facility] in the morning for inpatient rehab. Will continue to monitor labs and vital signs closely. Cardiology, pulmonary, and cardiothoracic surgery are following closely. PT/OT/cardiac rehab following the patient. Will continue to monitor blood sugars closely and treat accordingly. Continue to encourage incentive spirometer use every hour while awake. Guarded prognosis. Further recommendations to follow. Possible discharge to inpatient rehab in the a.m.
--- NOTE | 2018-11-07 16:29 | P.PN ---
Subjective Progress Note Date: 11/07/18 This a very pleasant 73-year-old gentleman who has a history of coronary artery disease with a recent stent placement to the LAD on 09/24/2018, chronic diastolic congestive heart failure, hypertension, hyperlipidemia, diabetes mellitus type 2 with peripheral neuropathy, chronic kidney disease, obstructive sleep apnea not utilizing CPAP in the outpatient setting, pulmonary hypertension, obesity, osteoarthritis, significant pipe smoking however denied any inhalation with the pipe. His FEV1 value is 54% of predicted. He was also found to have severe mitral valve regurgitation and has been seen by c ardiothoracic surgery. The plan is for mitral valve repair/replacement to be performed on 10/31/[address] Lozada. He is seen again today in follow-up on the selective care unit. He is currently sitting up in a chair at the bedside. Awake and alert in no acute distress. No shortness of breath, cough or congestion. No chest pain or palpitations. Maintaining good O2 saturations in the 90s on room air. He's been afebrile. Hemodynamically stable. Urine culture reveals no growth. White count 6.2. Hemoglobin 13.7. Creatinine 2.05. He has been practicing with the incentive spirometer. The patient is seen today 11/03/2017 in follow-up in the intensive care unit. He is postoperative day #3 for mitral valve repair. He has had ongoing issues with hypoxemia. He is currently on BiPAP 12/5 and 50% FiO2. He is on a Lasix drip at 20 mg per hour, lactated Ringer's at 20 ML's per hour, clevidipine at 4 mg per hour and a insulin drip at 5 units per hour. Chest x-ray shows cardiomegaly some mild improvement in the bilateral pleural effusions and bibasilar atelectasis. White count 9.2. Hemoglobin 8.0. Creatinine 3.60. AST 3549, ALT 1277, alk phos 37. The patient is seen today 11/04/2018 in follow-up in the intensive care unit. He is postoperative day #4 for mitral valve repair. He is currently sitting up at the bedside. Awake and alert in no acute distress. He did not utilize the BiPAP last night. He is currently on 2 L high flow nasal cannula to maintain O2 saturations in the 90s. He is 0.9 normal saline at 20 ML's per hour. He remains on a Lasix drip at 10 mg per hour. He remains on amiodarone at 1 mg/m. His rate is well controlled. White count 9.2. Hemoglobin 8.4. Creatinine 3.03. AST 1270. ALT 1022. He is working with the incentive spirometer. Remains on bronchodilators. Currently on a insulin drip at 9 units per hour. Glucose 179. On 11/05/2018 I'm seeing this patient for a follow-up. The patient is postop day #5. The patient underwent a mitral valve repair. The patient is doing extremely well. Postop he had to be placed on Lasix if and the patient has been diuresed aggressively. Postop he also went into atrial fibrillation and he was treated with amiodarone and he was also on metoprolol 50 mg by mouth twice a day. His current rhythm is back to sinus. No anticoagulation is being utilized for now. He remains on subcu heparin for DVT prophylaxis. Overall is doing well. Sternum stable clean and intact. He is still pulling on a 500 mL on incentive spirometer. Pain is improved. The patient had a chest x-ray earlier today and the patient was found to have cardiomegaly. Some limited atelectatic changes are present in the lung bases bilaterally. No fever. No chills. No nausea or vomiting. He is weak. He has done minimal amount of activity. He was able to walk probably 15-20 feet with assistance. ICU. Morbidly done today. He is IV Lasix has been discontinued as there has been steady increase in the BUN and the creatinine. The VNA is up to 116 and the creatinine is up to 2.7. The liver function tests also continued to improve. AST is 602 and the ALT is down to 795. Oral intake is still suboptimal. The patient is receiving normal saline at the rate of 20 mL an hour. He was dynamically stable. Adequate urine output. Her net fluid balance was negative of 2.6 L over the past 24 hours. On 11/06/2018, the patient is doing well and the patient is postop day #6. Chest x-ray from today shows some atelectatic changes in the left lung base along with some elevation of left hemidiaphragm. Otherwise there is some background cardiomegaly. The patient is doing well. His been in a negative f luid balance in the net fluid balance over the past 24 hours has been -1.5 L. The patient has been taken off the diuretics. Today's creatinine is down to 2.4 with a BUN of 119. Serum bicarb is at 40. No significant hyperkalemia. The liver function tests are also improving. The patient is on 2 L of oxygen by nasal cannula and the pulse ox is 97%. He is using incentive spirometer. Sternum stable clean and intact. He has been no other significant events overnight. He remains on a dual antiplatelet therapy. He is also on metoprolol for rate control. His hemoglobin is stable. On 11/07/2018 patient is postop day #7. Chest x-ray shows improvement in aeration of the left lung base. The patient is still on oxygen at 2 L per minute nasal cannula. No chest pain. Sternum stable clean and intact. There is ongoing improvement in liver function tests and the renal function. LFTs continued to improve. Creatinine is down to 2.1Patient is producing adequate amount of urine output and the patient is emanating. Cardiac rhythm is still sinus. No other significant events overnight. No hemodynamic instability. The patient ate breakfast today. The patient is being very constantly. We're looking for rehabilitation discharged on this patient within next 24-48 hours. Objective - Vital Signs Vital signs: Vital Signs Temp 97.8 F 11/07/18 04:00 Pulse 62 11/07/18 15:46 Resp 21 11/07/18 15:00 BP 128/57 11/07/18 15:00 Pulse Ox 97 11/07/18 15:00 Intake & Output 11/06/18 11/07/18 11/07/18 18:59 06:59 18:59 Intake Total 0 0 240 Output Total 625 825 550 Balance -625 -825 -310 Weight 95.8 kg 95.8 kg Intake: IV 0 0 pressure bag 0 0 Oral 240 Output: Urine 625 825 550 Other: Voiding Method Urinal Urinal Urinal # Bowel Movements 1 ABP, PAP, CO, CI - Last Documented Arterial Blood Pressure 144/49 Pulmonary Artery Pressure 52/22 Cardiac Output 7.5 Cardiac Index 3.6 - Exam GENERAL EXAM: Pleasant 73-year-old gentleman. Improving. On 2 L high flow nasal cannula. Currently comfortable in no apparent distress. HEAD: Normocephalic. EYES: Normal reaction of pupils, equal size. NOSE: Clear with pink turbinates. THROAT: No erythema or exudates. NECK: No masses, no JVD. CHEST: Sternal dressing dry and intact. LUNGS: Equal air entry with crackles in the posterior bases. CVS: S1 and S2 normal with no audible murmur, regular rhythm. ABDOMEN: No hepatosplenomegaly, normal bowel sounds, no guarding or rigidity. SPINE: No scoliosis or deformity SKIN: No rashes CENTRAL NERVOUS SYSTEM: No focal deficits, tone is normal in all 4 extremities. EXTREMITIES: Sequential compression devices in place. There is trace peripheral edema. No clubbing, no cyanosis. Peripheral pulses are intact. - Labs CBC & Chem 7: 11/07/18 04:14 11/07/18 04:14 Labs: Abnormal Lab Results - Last 24 Hours (Table) 11/06/18 11/07/18 11/07/18 Range/Units 20:24 02:17 04:14 WBC 12.7 H (3.8-10.6) k/uL RBC 2.90 L (4.30-5.90) m/uL Hgb 8.9 L (13.0-17.5) gm/dL Hct 27.5 L (39.0-53.0) % RDW 16.3 H (11.5-15.5) % Sodium (137-145) mmol/L Chloride (98-107) mmol/L Carbon Dioxide (22-30) mmol/L BUN (9-20) mg/dL Creatinine (0.66-1.25) mg/dL Glucose (74-99) mg/dL POC Glucose (mg/dL) 161 H 134 H (75-99) mg/dL AST (17-59) U/L ALT (21-72) U/L 11/07/18 11/07/18 11/07/18 Range/Units 04:14 06:46 11:43 WBC (3.8-10.6) k/uL RBC (4.30-5.90) m/uL Hgb (13.0-17.5) gm/dL Hct (39.0-53.0) % RDW (11.5-15.5) % Sodium 136 L (137-145) mmol/L Chloride 92 L (98-107) mmol/L Carbon Dioxide 39 H (22-30) mmol/L BUN 112 H* (9-20) mg/dL Creatinine 2.13 H (0.66-1.25) mg/dL Glucose 122 H (74-99) mg/dL POC Glucose (mg/dL) 132 H 294 H (75-99) mg/dL AST 149 H (17-59) U/L ALT 456 H (21-72) U/L 11/07/18 Range/Units 14:47 WBC (3.8-10.6) k/uL RBC (4.30-5.90) m/uL Hgb (13.0-17.5) gm/dL Hct (39.0-53.0) % RDW (11.5-15.5) % Sodium (137-145) mmol/L Chloride (98-107) mmol/L Carbon Dioxide (22-30) mmol/L BUN (9-20) mg/dL Creatinine (0.66-1.25) mg/dL Glucose (74-99) mg/dL POC Glucose (mg/dL) 117 H (75-99) mg/dL AST (17-59) U/L ALT (21-72) U/L Assessment and Plan Plan: #1 Severe mitral valve regurgitation with severely calcified mitral annulus, torn chordae to P1 posterior leaflet. He is status post complex mitral valve repair with resection of torn chordae to P1, posterior leaflet plication of P1 and P2, small resection P1-P2 leaflet, plication of both anterior mitral trigones, clip ligation of left atrial appendage. Post operative day #7. #2 Coronary artery disease with recent stent placement to the LAD on 09/24/2018. #3 Acute hypoxic respiratory failure secondary to an acute exacerbation of chronic diastolic congestive heart failure. The patient was given BiPAP support and later on high flow oxygen and currently is down to 2 L of oxygen by nasal cannula. Chest x-ray showing some limited atelectatic changes in lung bases. No significant respiratory distress. The patient is quite debilitated and weak. He is using incentive spirometer. Sternum stable clean and intact. All chest tubes have been removed. #4 Diabetes mellitus, type II. #5 Diabetic peripheral neuropathy. #6 Obesity. #7 Obstructive sleep apnea not on home CPAP. #8 Pulmonary hypertension. #9 History of significant pipe smoking without inhalation. FEV1 value of 54% predicted. #10 Hypertension. #11 Hyperlipidemia. #12 Osteoarthritis. #13 Elevated liver function testing, , likely secondary to shock liver and the patient's LFTs are also improving and the patient remains on oral amiodarone and liver functions continued to improve. #14 Acute renal failure , improving and the creatinine is down to 2.1 Plan The patient is a senior well. Continue same management. Renal function contin ues to improve. LFTs continued to improve. He is ambulating. He will need rehabilitation. Is postop day #7. He will likely go to rehab at [facility].
[2018-11-07 17:03] LABS: Glucose,Whole Blood 82 mg/dL (75-99)
[2018-11-07 20:39] LABS: Glucose,Whole Blood 246 mg/dL (75-99)
[2018-11-07] MEDS: INSULIN DETEMIR (LEVEMIR) 100 UNIT/ML SYR SQ SCH (21:01)
[2018-11-07] MEDS: SENNOSIDES-DOCUSATE SODIUM 1 EACH TAB PO SCH (21:01)
[2018-11-07] MEDS: ACETAMINOPHEN TAB 500 MG TAB PO PRN (23:23)
[2018-11-08 02:05] LABS: Glucose,Whole Blood 248 mg/dL (75-99)
[2018-11-08] MEDS: INSULIN ASPART (NovoLOG) 100 UNIT/ML VIAL SQ SCH ×8 (02:24→21:55)
[2018-11-08] MEDS: ACETAMINOPHEN TAB 500 MG TAB PO PRN ×4 (05:31→22:16)
[2018-11-08 06:01] LABS: Anisocytosis Slight; HCT 26.6 % (39.0-53.0); HGB 8.7 gm/dL (13.0-17.5); Hypochromasia Slight; MCH 30.9 pg (25.0-35.0); MCHC 32.6 g/dL (31.0-37.0); MCV 94.7 fL (80.0-100.0); Mean Platelet Volume 7.6; Platelet Count 285 k/uL (150-450); RBC 2.81 m/uL (4.30-5.90); RDW 16.5 % (11.5-15.5); WBC 10.4 k/uL (3.8-10.6)
[2018-11-08 06:08] LABS: Albumin 3.7 g/dL (3.5-5.0); Calcium 8.9 mg/dL (8.4-10.2); Potassium 4.6 mmol/L (3.5-5.1); Total Bilirubin 0.8 mg/dL (0.2-1.3); Total Protein 6.7 g/dL (6.3-8.2)
--- NOTE | 2018-11-08 06:57 | P.PN ---
Subjective Progress Note Date: 11/08/18 Principal diagnosis: Severe mitral regurgitation This is a 73-year-old gentleman with CAD and prior stenting of the LAD, severe mitral regurgitation, underwent mitral valve repair. On follow-up with the patient today, November 082018, the patient is doing good from a cardiovascular standpoint of view. He is stable clinically. Hemodynamically he is stable. He is on the bradycardic side. I would suggest decrease the dose of amiodarone to 200 mg by mouth twice a day. He is on metoprolol as well. He might be going to be discharged into a rehab facility later on today. Objective - Vital Signs Vital signs: Vital Signs Temp 97.4 F L 11/08/18 04:00 Pulse 59 L 11/08/18 04:00 Resp 22 11/08/18 04:00 BP 135/68 11/08/18 04:00 Pulse Ox 97 11/08/18 04:00 Intake & Output 11/07/18 11/07/18 11/08/18 06:59 18:59 06:59 Intake Total 0 240 Output Total 825 550 350 Balance -825 -310 -350 Weight 95.8 kg 95.8 kg 95.7 kg Intake: IV 0 pressure bag 0 Oral 240 Output: Urine 825 550 350 Other: Voiding Method Urinal Urinal Urinal ABP, PAP, CO, CI - Last Documented Arterial Blood Pressure 144/49 Pulmonary Artery Pressure 52/22 Cardiac Output 7.5 Cardiac Index 3.6 - Constitutional General appearance: Present: no acute distress - Respiratory Respiratory: bilateral: CTA - Cardiovascular Rhythm: regular Heart sounds: normal: S1, S2 - Labs CBC & Chem 7: 11/08/18 05:34 11/08/18 05:34 Labs: Abnormal Lab Results - Last 24 Hours (Table) 11/07/18 11/07/18 11/07/18 Range/Units 06:46 11:43 14:47 RBC (4.30-5.90) m/uL Hgb (13.0-17.5) gm/dL Hct (39.0-53.0) % RDW (11.5-15.5) % Sodium (137-145) mmol/L Chloride (98-107) mmol/L Carbon Dioxide (22-30) mmol/L BUN (9-20) mg/dL Creatinine (0.66-1.25) mg/dL Glucose (74-99) mg/dL POC Glucose (mg/dL) 132 H 294 H 117 H (75-99) mg/dL AST (17-59) U/L ALT (21-72) U/L 11/07/18 11/08/18 11/08/18 Range/Units 20:35 02:03 05:34 RBC 2.81 L (4.30-5.90) m/uL Hgb 8.7 L (13.0-17.5) gm/dL Hct 26.6 L (39.0-53.0) % RDW 16.5 H (11.5-15.5) % Sodium (137-145) mmol/L Chloride (98-107) mmol/L Carbon Dioxide (22-30) mmol/L BUN (9-20) mg/dL Creatinine (0.66-1.25) mg/dL Glucose (74-99) mg/dL POC Glucose (mg/dL) 246 H 248 H (75-99) mg/dL AST (17-59) U/L ALT (21-72) U/L 11/08/18 Range/Units 05:34 RBC (4.30-5.90) m/uL Hgb (13.0-17.5) gm/dL Hct (39.0-53.0) % RDW (11.5-15.5) % Sodium 136 L (137-145) mmol/L Chloride 94 L (98-107) mmol/L Carbon Dioxide 37 H (22-30) mmol/L BUN 108 H* (9-20) mg/dL Creatinine 2.15 H (0.66-1.25) mg/dL Glucose 147 H (74-99) mg/dL POC Glucose (mg/dL) (75-99) mg/dL AST 99 H (17-59) U/L ALT 329 H (21-72) U/L Assessment and Plan Assessment: Assessment #1 CAD and status post LAD stenting #2 severe mitral regurgitation and status post repair #3 multiple comorbid conditions including hypertension and dyslipidemia Plan #1 continue the current medical regimen #2 I will suggest decrease the dose of amiodarone in view of the bradycardia
[2018-11-08 07:05] LABS: Glucose,Whole Blood 145 mg/dL (75-99)
[2018-11-08] MEDS: IPRATROPIUM-ALBUTEROL 3 ML NEB INHALATION SCH ×4 (07:08→19:15)
--- NOTE | 2018-11-08 08:07 | XR ---
EXAMINATION TYPE: XR chest 2V DATE OF EXAM: 11/08/2018 COMPARISON: 11/07/2018 HISTORY: Postcardiac surgery TECHNIQUE: Frontal and lateral views of the chest are obtained. FINDINGS: Sternotomy wires and surgical clips overlying mediastinum. Postsurgical changes in the kne es procedure. Redemonstration of cardiomegaly. Pulmonary vessels which are appears within normal limi ts. Right lung is clear. Improving aeration in left basilar strandy opacities. No pneumothorax. IMPRESSION: Improving aeration in left basilar linear opacities.
--- NOTE | 2018-11-08 09:17 | P.PN ---
Subjective Progress Note Date: 11/08/18 Principal diagnosis: Severe eccentric mitral valve regurgitation, severely calcified mitral annulus, torn chordae to P1 posterior leaflet. Previous medical history of coronary art marcel disease with recent drug-eluting stent placed to the LAD on 09/24/2018, chronic diastolic heart failure, hypertension, hyperlipidemia, type 2 diabetes mellitus with peripheral neuropathy and preoperative hemoglobin A1c 7%, chronic kidney disease with baseline creatinine around 2, moderate COPD with preoperative FEV1 54% of predicted, obstructive sleep apnea without home CPAP use, pulmonary hypertension, obesity, osteoarthritis, previous pipe tobacco use. Preoperative tooth abscess with extraction and antibiotic administration, cleared for surgery by dentist. POD #8 complex mitral valve repair with resection of torn chordae to P1, posterior leaflet plication of P1 and P2, small resection P1P2 leaflet, plication of both anterior mitral trigones, clip ligation of the left atrial appendage with a 35 mm AtriClip and intraoperative transesophageal echocardiogram. Postoperative acute blood loss anemia, expected outcome secondary to cardiopulmonary bypass and hemodilution Postoperative transaminitis, unexpected Postoperative atrial fibrillation, unexpected The patient is currently sitting up in the recliner eating breakfast in the intensive care unit in no acute distress. Continues to complain of minimal post surgical type pain which is controlled on current medication regimen, denies shortness of breath. Normal sinus rhythm to sinus bradycardia and hemodynamically stable. He has been able to ambulate in the hallway with assistance. Had first shower yesterday. Liver enzymes are trending down, kidney function is improving. Transfer orders were placed for 3 S. cardiac stepdown unit, no bed availability. Patient will need rehabilitation at discharge, and Dr. Martinez was consulted. Objective - Vital Signs Vital signs: Vital Signs Temp 97.4 F L 11/08/18 04:00 Pulse 62 11/08/18 07:18 Resp 22 11/08/18 04:00 BP 135/68 11/08/18 04:00 Pulse Ox 97 11/08/18 04:00 Intake & Output 11/07/18 11/08/18 11/08/18 18:59 06:59 18:59 Intake Total 240 Output Total 550 350 300 Balance -310 -350 -300 Weight 95.8 kg 95.7 kg Intake: Oral 240 Output: Urine 550 350 300 Other: Voiding Method Urinal Urinal ABP, PAP, CO, CI - Last Documented Arterial Blood Pressure 144/49 Pulmonary Artery Pressure 52/22 Cardiac Output 7.5 Cardiac Index 3.6 - Constitutional General appearance: Present: cooperative, obese - Respiratory Details: Lungs sounds diminished bilaterally. Respirations even, nonlabored. Currently on room air with oxygen saturation 92%, was on 2 L nasal cannula with oxygen saturation in the high 90s overnight. Able to achieve 750 mL on his incentive spirometry. Strong nonproductive cough. - Cardiovascular Details: S1, S2 present. Regular rate and rhythm, sinus rhythm on telemetry. Sternum stable. Palpable peripheral pulses bilaterally. No edema present. No calf pain or tenderness noted. Heart hugger in place with patient demonstrating appropriate use. Antiembolism stockings, SCDs present. - Gastrointestinal Gastrointestinal Comment(s): Abdomen soft, nontender, nondistended, obese. Active bowel sounds present 4 quadrants. Tolerating diet. Positive bowel movement 11/06. - Genitourinary Genitourinary Comment(s): Continues to void clear, yellow urine. - Integumentary Integumentary Comment(s): Skin is warm and dry with evidence of good perfusion. Anterior chest incision well approximated and covered with dry intact dressing. - Neurologic Neurologic: Present: CNII-XII intact - Musculoskeletal Musculoskeletal: Present: gait normal, generalized weakness, strength equal bilaterally - Psychiatric Psychiatric: Present: A&O x's 3, appropriate affect, intact judgment & insight - Allied health notes Allied health notes reviewed: nursing - Labs CBC & Chem 7: 11/08/18 05:34 11/08/18 05:34 Labs: Abnormal Lab Results - Last 24 Hours (Table) 11/07/18 11/07/18 11/07/18 Range/Units 11:43 14:47 20:35 RBC (4.30-5.90) m/uL Hgb (13.0-17.5) gm/dL Hct (39.0-53.0) % RDW (11.5-15.5) % Sodium (137-145) mmol/L Chloride (98-107) mmol/L Carbon Dioxide (22-30) mmol/L BUN (9-20) mg/dL Creatinine (0.66-1.25) mg/dL Glucose (74-99) mg/dL POC Glucose (mg/dL) 294 H 117 H 246 H (75-99) mg/dL AST (17-59) U/L ALT (21-72) U/L 11/08/18 11/08/18 11/08/18 Range/Units 02:03 05:34 05:34 RBC 2.81 L (4.30-5.90) m/uL Hgb 8.7 L (13.0-17.5) gm/dL Hct 26.6 L (39.0-53.0) % RDW 16.5 H (11.5-15.5) % Sodium 136 L (137-145) mmol/L Chloride 94 L (98-107) mmol/L Carbon Dioxide 37 H (22-30) mmol/L BUN 108 H* (9-20) mg/dL Creatinine 2.15 H (0.66-1.25) mg/dL Glucose 147 H (74-99) mg/dL POC Glucose (mg/dL) 248 H (75-99) mg/dL AST 99 H (17-59) U/L ALT 329 H (21-72) U/L 11/08/18 Range/Units 07:01 RBC (4.30-5.90) m/uL Hgb (13.0-17.5) gm/dL Hct (39.0-53.0) % RDW (11.5-15.5) % Sodium (137-145) mmol/L Chloride (98-107) mmol/L Carbon Dioxide (22-30) mmol/L BUN (9-20) mg/dL Creatinine (0.66-1.25) mg/dL Glucose (74-99) mg/dL POC Glucose (mg/dL) 145 H (75-99) mg/dL AST (17-59) U/L ALT (21-72) U/L - Imaging and Cardiology Chest x-ray: report reviewed, image reviewed Assessment and Plan Assessment: 1. Severe eccentric mitral valve regurgitation with severely calcified mitral annulus and torn chordae to P1 posterior leaflet, status post complex mitral valve repair 2. Coronary artery disease with recent drug-eluting stent to the LAD on 09/24/2018 3. Chronic diastolic heart failure 4. Hypertension 5. Hyperlipidemia 6. Type 2 diabetes mellitus with peripheral neuropathy and hemoglobin A1c 7% 7. Chronic kidney disease with creatinine baseline around 2 8. Moderate COPD with preoperative FEV1 54% of predicted 9. Obstructive sleep apnea without home CPAP use 10. Pulmonary hypertension 11. Obesity 12. Osteoarthritis 13. Previous pipe tobacco dependence 14. Preoperative tooth abscess with extraction and antibiotics 15. Postoperative acute blood loss anemia 16. Postoperative transaminitis 17. Postoperative atrial fibrillation Plan: 1. Continue aspirin, Plavix, beta sun therapy. Will increase beta sun therapy as tolerated. Continue to hold statin is secondary to transaminitis, we will reinitiate once liver enzymes have normalized. 2. Continue amiodarone for A. fib prophylaxis, decrease to 200 mg twice daily. No anticoagulation at this point. 3. Continue hydralazine for afterload reduction. 4. Will monitor daily labs, chest x-rays. No transfusion. Electrolyte replacement per protocol. 5. Pain control with current medication regimen. No Toradol secondary to kidney function. 6. Encourage incentive spirometry use 10 times every hour while awake. Bronchodilators per pulmonology. 7. Insulin/diabetic management per primary care service. 8. Increase activity, ambulate in hallway. PT/OT/cardiac rehab following. 9. Transfer orders placed for 3 S. cardiac stepdown unit. May transfer when bed available. 10. Discharge planning in progress. Anticipate discharge to inpatient rehab in the next 24-48 hours, waiting on insurance authorization. 11. More recommendations to follow. Time with Patient: Greater than 30
[2018-11-08] MEDS: HEPARIN SODIUM,PORCINE 5,000 UNIT/ML 1 ML VIAL SQ SCH ×3 (09:24→22:44)
[2018-11-08] MEDS: CHOLECALCIFEROL 1,000 UNIT TAB PO SCH (09:25)
[2018-11-08] MEDS: AMIODARONE 200 MG TAB PO SCH ×2 (09:25→20:05)
[2018-11-08] MEDS: CLOPIDOGREL 75 MG TAB PO SCH (09:25)
[2018-11-08] MEDS: ASPIRIN 325 MG TAB PO SCH (09:25)
[2018-11-08] MEDS: FERROUS SULFATE 325 MG TAB PO SCH (09:26)
[2018-11-08] MEDS: METOPROLOL TARTRATE 50 MG TAB PO SCH ×2 (09:26→20:05)
[2018-11-08] MEDS: PANTOPRAZOLE 40 MG TABLET PO SCH (09:26)
[2018-11-08] MEDS: MULTIVITAMINS, THERA 1 EACH TAB PO SCH (09:26)
[2018-11-08] MEDS: hydrALAZINE HCL 10 MG TAB PO SCH ×3 (09:26→22:16)
--- NOTE | 2018-11-08 10:57 | P.PN ---
Subjective Progress Note Date: 11/08/18 Principal diagnosis: Coronary artery disease The patient is seen today 11/08/2018 in follow-up in the intensive care unit. He is postoperative day #8 for a complex mitral valve repair. He is currently sitting up in a chair at the bedside. He is on room air. Chest x-ray reveals improved aeration in the left basilar linear opacities. No pneumothorax. Continues to work well with the incentive spirometer. He's been up ambulating with assistance. He's been hemodynamically stable. White count 10.4. Hemoglobin 8.7. Creatinine 2.15. AST 99. ALT 329. Objective - Vital Signs Vital signs: Vital Signs Temp 97.8 F 11/08/18 08:00 Pulse 62 11/08/18 08:00 Resp 16 11/08/18 08:00 BP 126/63 11/08/18 08:00 Pulse Ox 96 11/08/18 08:00 Intake & Output 11/07/18 11/08/18 11/08/18 18:59 06:59 18:59 Intake Total 240 Output Total 550 350 300 Balance -310 -350 -300 Weight 95.8 kg 95.7 kg Intake: Oral 240 Output: Urine 550 350 300 Other: Voiding Method Urinal Urinal Urinal ABP, PAP, CO, CI - Last Documented Arterial Blood Pressure 144/49 Pulmonary Artery Pressure 52/22 Cardiac Output 7.5 Cardiac Index 3.6 - Exam GENERAL EXAM: Pleasant 73-year-old gentleman. Currently comfortable in no apparent distress. On room air. HEAD: Normocephalic. EYES: Normal reaction of pupils, equal size. NOSE: Clear with pink turbinates. THROAT: No erythema or exudates. NECK: No masses, no JVD. CHEST: Sternal dressing dry and intact. Heart Hugger in place. LUNGS: Equal air entry with crackles in the posterior bases. CVS: S1 and S2 normal with no audible murmur, regular rhythm. ABDOMEN: No hepatosplenomegaly, normal bowel sounds, no guarding or rigidity. SPINE: No scoliosis or deformity SKIN: No rashes CENTRAL NERVOUS SYSTEM: No focal deficits, tone is normal in all 4 extremities. EXTREMITIES: There is trace peripheral edema. No clubbing, no cyanosis. Peripheral pulses are intact. - Labs CBC & Chem 7: 11/08/18 05:34 11/08/18 05:34 Labs: Abnormal Lab Results - Last 24 Hours (Table) 11/07/18 11/07/18 11/07/18 Range/Units 11:43 14:47 20:35 RBC (4.30-5.90) m/uL Hgb (13.0-17.5) gm/dL Hct (39.0-53.0) % RDW (11.5-15.5) % Sodium (137-145) mmol/L Chloride (98-107) mmol/L Carbon Dioxide (22-30) mmol/L BUN (9-20) mg/dL Creatinine (0.66-1.25) mg/dL Glucose (74-99) mg/dL POC Glucose (mg/dL) 294 H 117 H 246 H (75-99) mg/dL AST (17-59) U/L ALT (21-72) U/L 11/08/18 11/08/18 11/08/18 Range/Units 02:03 05:34 05:34 RBC 2.81 L (4.30-5.90) m/uL Hgb 8.7 L (13.0-17.5) gm/dL Hct 26.6 L (39.0-53.0) % RDW 16.5 H (11.5-15.5) % Sodium 136 L (137-145) mmol/L Chloride 94 L (98-107) mmol/L Carbon Dioxide 37 H (22-30) mmol/L BUN 108 H* (9-20) mg/dL Creatinine 2.15 H (0.66-1.25) mg/dL Glucose 147 H (74-99) mg/dL POC Glucose (mg/dL) 248 H (75-99) mg/dL AST 99 H (17-59) U/L ALT 329 H (21-72) U/L 11/08/18 Range/Units 07:01 RBC (4.30-5.90) m/uL Hgb (13.0-17.5) gm/dL Hct (39.0-53.0) % RDW (11.5-15.5) % Sodium (137-145) mmol/L Chloride (98-107) mmol/L Carbon Dioxide (22-30) mmol/L BUN (9-20) mg/dL Creatinine (0.66-1.25) mg/dL Glucose (74-99) mg/dL POC Glucose (mg/dL) 145 H (75-99) mg/dL AST (17-59) U/L ALT (21-72) U/L Assessment and Plan Assessment: Impression: #1 Severe mitral valve regurgitation with severely calcified mitral annulus, torn chordae to P1 posterior leaflet. He is status post complex mitral valve repair with resection of torn chordae to P1, posterior leaflet plication of P1 and P2, small resection P1-P2 leaflet, plication of both anterior mitral trigones, clip ligation of left atrial appendage. Post operative day #8. #2 Coronary artery disease with recent stent placement to the LAD on 09/24/2018. #3 Acute hypoxic respiratory failure secondary to an acute exacerbation of trust officer alexander diastolic congestive heart failure. Covered chest x-ray shows improvement. #4 Diabetes mellitus, type II. #5 Diabetic peripheral neuropathy. #6 Obesity. #7 Obstructive sleep apnea not on home CPAP. #8 Pulmonary hypertension. #9 History of significant pipe smoking without inhalation. FEV1 value of 54% predicted. #10 Hypertension. #11 Hyperlipidemia. #12 Osteoarthritis. #13 Elevated liver function testing. #14 Acute renal failure current creatinine 2.15. Plan: The patient was seen and evaluated by Dr. Howard. Chest x-ray, labs all reviewed. He is doing very well from the pulmonary critical care standpoint. To be transferred out today and possible plan for inpatient rehabilitation by tomorrow. Increase the use of the incentive spirometer and cough and deep breathing exercises. Continue bronchodilators. Increase his activity as tolerated. We'll continue to follow and make further recommendations based on his clinical status. I, the cosigning physician, performed a history & physical examination of the patient. Lungs sounds crackles in the posterior bases. Maintaining good O2 saturations in the 90s on room air. I discussed the assessment and plan of care with my nurse practitioner, Valerie Kaur. I attest to the above note as dictated by her.
[2018-11-08 12:06] LABS: Glucose,Whole Blood 199 mg/dL (75-99)
[2018-11-08] MEDS: ASCORBIC ACID 500 MG TAB PO SCH (13:07)
--- NOTE | 2018-11-08 14:26 | P.PN ---
Subjective Progress Note Date: 11/08/18 Principal diagnosis: This is a 73-year-old male was admitted to have mitral valve replacement and is being closely monitored. Patient is sitting up in the recliner talking to family on the phone in no acute distress. Patient has been up and walking around the room with no difficulties. Cardiology is following. Patient is to undergo surgery in the morning. Patient is currently on IV Aggrastat. Patient denies any shortness of breath, chest pain, or palpitations at this time. Patient denies any nausea or vomiting. Patient is afebrile. Patient states he is just waiting for his heart surgery tomorrow. Guarded prognosis. This is a 73-year-old male who is currently in the ICU on postop day #1 who underwent mitral valve repair with resection with Dr. Lozada. Patient was extubated and is currently on a BiPAP. Patient is tolerating well. Patient is being closely monitored. Family is at the bedside. Patient is currently still on an insulin drip at 7.5 units per hour and is being closely monitored. Patient still has a chest tube on the left side with a total of 210 mL output over the last 8 hours. Patient still has an indwelling Burrell catheter and monitoring output as well. Dr. Celis is following the patient closely. 11/02/2018 Today patient is still currently in the ICU and post op day #2 for the mitral valve repair with resection and is being closely monitored. Patient is currently still on a Bipap with settings of 12/5, 50% Fi02. Patient is hemodynamically stable after receiving 1 unit of PRBC earlier this morning. Patient denies any new shortness of breath, chest pain, or palpitations. Patient is tolerating the Bipap. Patient has poor incentive spirometer use and achieving 200. Patient is very lethargic but easily arousable. Patient will be working with PT/OT once respiratory status has stabilized. Patient is currently on a lasix drip and u rine output has slightly improved. Patient is also on Cleviprex for blood pressure control. Prognosis is extremely guarded. Will continue to monitor closely. 11/05/2018 Patient is currently sitting up in the recliner eating lunch in no acute distress. Patient is currently still in the ICU postop day #5 and is being closely monitored status post mitral valve replacement. Patient is off the BiPA P and currently on 2 L via nasal cannula and oxygenating well. Patient has a poor response with his incentive spirometer of approximately 4-500 Max. Discussed with the patient at length about attempting incentive spirometer at least 10 times per hour while awake. at the bedside. Patient is a poor oral intake stating that he doesn't have much of an appetite. Patient is attempting to eat with each meal. Blood sugars are being monitored closely and we'll continue to treat accordingly. Patient denies any chest pain, palpitations and states that his shortness of breath has improved but still gets winded while walking. Patient walked to the hallway and back as well as to the bathroom with PT/OT. Patient denies any nausea or vomiting at this time. Patient is afebrile. Patient's liver functions were elevated but are trending down. Creatinine is slowly improving as well. Current creatinine is 2.75 down from 3.03. IV Lasix drip was discontinued. Patient is urinating well with good output. Patient states he has not had a bowel movement yet but was given a laxative. Patient denies any abdominal discomfort at this time. Guarded prognosis. 11/06/2018 Patient remains in the ICU this morning and is sitting up in the recliner in no acute distress. Patient is overall looking and feeling much better. Patient states that he has been working on his incentive spirometer when prompted and is achieving 750 at times. Patient states that his shortness of breath has improved. Patient still states that he gets a little fatigued with walking but is improving. PT/OT/cardiac rehab are following. Patient is being closely monitored by pulmonary, cardiothoracic, and cardiology. Patient states that he is eating more and denies any nausea or vomiting. Patient had a bowel movement yesterday. Patient denies any abdominal pain at this time. Patient's blood sugars have been monitored closely and treated accordingly. Patient is able to move out of the ICU at this time. Patient remains afebrile. Current creatinine is 2.4 and trending down. Patient is still off lasix drip at this time. Guarded prognosis. 11/07/2018 Patient is sitting up in the recliner still currently in the ICU awaiting a bed assignment on 3 S. in no acute distress. Patient denies any chest pain, shortness of breath, or palpitations at this time. Patient does have some minor chest discomfort due to surgery but is manageable. Patient has a working on his incentive spirometer. Patient denies any nausea or vomiting and is tolerating diet. Patient is urinating well. SCDs are present. Patient does have some mild pedal edema that is improving. Patient remains afebrile. Patient is tentatively going to [facility] in the morning for inpatient rehab. LFTs are trending down. Creatinine today is 2.13. Blood sugars are being monitored closely. Guarded prognosis. 11/08/2018 Patient is sitting up in recliner and moving to 3 S. as there is a bed there now while awaiting insurance authorization for inpatient rehab at [facility]. Patient denies any chest pain or palpitations at this time. Patient has been continuing to use his incentive spirometer and is achieving 750 at this time. Patient is on room air and states that he has some mild shortness of breath but only with exertion. Patient's creatinine is 2.15 today and trending down. His liver functions are improving as well. Will continue to monitor labs and vital signs closely. Cardio vascular surgery, pulmonary, and cardiology are following closely. Patient's amiodarone was decreased to 200 mg twice daily. Blood sugars have been slightly elevated today and we will increase the Levemir to 10 units twice daily and continue to monitor. Patient denies any nausea or vomiting and has been tolerating diet. Patient is afebrile. Guarded prognosis Objective - Vital Signs Vital signs: Vital Signs Temp 98 F 11/08/18 11:45 Pulse 60 11/08/18 13:41 Resp 16 11/08/18 12:00 BP 124/62 11/08/18 11:45 Pulse Ox 94 L 11/08/18 11:45 Intake & Output 11/07/18 11/08/18 11/08/18 18:59 06:59 18:59 Intake Total 240 Output Total 550 350 300 Balance -310 -350 -300 Weight 95.8 kg 95.7 kg Intake: Oral 240 Output: Urine 550 350 300 Other: Voiding Method Urinal Urinal Urinal ABP, PAP, CO, CI - Last Documented Arterial Blood Pressure 144/49 Pulmonary Artery Pressure 52/22 Cardiac Output 7.5 Cardiac Index 3.6 - Exam Gen: This is a 73-year-old male sitting up in recliner in no acute distress. Vital signs are stable. Oxygen saturation is 94% on room air. HEENT: Head is atraumatic, normocephalic. Pupils equal, round. Sclerae is anicteric. NECK: Supple. No JVD. No lymphadenopathy. No thyromegaly. LUNGS: Lung sounds diminished at the bases with a few scattered crackles noted. minimal expiratory wheezing noted. No intercostal retractions. HEART: S1 and S2 are muffled ABDOMEN: Soft. Bowel sounds are present. No masses. No tenderness. EXTREMITIES: Mild pedal edema. No calf tenderness. NEUROLOGICAL: Patient is awake, alert and oriented x3. Cranial nerves 2 through 12 are grossly intact. Patient has been walking with PT/OT and tolerating well. - Labs CBC & Chem 7: 11/08/18 05:34 11/08/18 05:34 Labs: Abnormal Lab Results - Last 24 Hours (Table) 11/07/18 11/07/18 11/08/18 Range/Units 14:47 20:35 02:03 RBC (4.30-5.90) m/uL Hgb (13.0-17.5) gm/dL Hct (39.0-53.0) % RDW (11.5-15.5) % Sodium (137-145) mmol/L Chloride (98-107) mmol/L Carbon Dioxide (22-30) mmol/L BUN (9-20) mg/dL Creatinine (0.66-1.25) mg/dL Glucose (74-99) mg/dL POC Glucose (mg/dL) 117 H 246 H 248 H (75-99) mg/dL AST (17-59) U/L ALT (21-72) U/L 11/08/18 11/08/18 11/08/18 Range/Units 05:34 05:34 07:01 RBC 2.81 L (4.30-5.90) m/uL Hgb 8.7 L (13.0-17.5) gm/dL Hct 26.6 L (39.0-53.0) % RDW 16.5 H (11.5-15.5) % Sodium 136 L (137-145) mmol/L Chloride 94 L (98-107) mmol/L Carbon Dioxide 37 H (22-30) mmol/L BUN 108 H* (9-20) mg/dL Creatinine 2.15 H (0.66-1.25) mg/dL Glucose 147 H (74-99) mg/dL POC Glucose (mg/dL) 145 H (75-99) mg/dL AST 99 H (17-59) U/L ALT 329 H (21-72) U/L 11/08/18 Range/Units 11:38 RBC (4.30-5.90) m/uL Hgb (13.0-17.5) gm/dL Hct (39.0-53.0) % RDW (11.5-15.5) % Sodium (137-145) mmol/L Chloride (98-107) mmol/L Carbon Dioxide (22-30) mmol/L BUN (9-20) mg/dL Creatinine (0.66-1.25) mg/dL Glucose (74-99) mg/dL POC Glucose (mg/dL) 199 H (75-99) mg/dL AST (17-59) U/L ALT (21-72) U/L Assessment and Plan Assessment: Severe mitral regurgitation: Patient underwent mitral valve replacement. Carotid disease with recent myocardial infarction and stent placement Severe pulmonary hypertension Chronic diastolic dysfunction, congestive heart failure Chronic kidney disease stage III creatinine is baseline was 2.11. We'll continue to monitor closely creatinine today is 2.15 Acute on chronic renal failure Elevated LFTs, possibly drug-induced; trending down Hyperlipidemia Gastroesophageal reflux disease Diabetes mellitus type 2 with diabetic nephropathy: Patient will be resumed on home medications. Will titrate insulin and diabetic medications depending on blood sugar readings. Blood sugar readings have been slightly elevated today. Will increase Levemir to 10 units twice daily and continue to monitor. DVT prophylaxis: Patient is on heparin subq every 8 hours Atelectasis Recommendations and discussion Recommend continue current medications, management, and symptomatic treatment. Patient is being transferred to [facility] today awaiting prior authorization from his insurance for inpatient rehab at [facility]. Will continue to monitor labs and vital signs closely. Cardiology, pulmonary, and cardiothoracic surgery are following closely. PT/OT/cardiac rehab following the patient. Will continue to monitor blood sugars closely and treat accordingly. Continue to encourage incentive spirometer use every hour while awake. Guarded prognosis. Further recommendations to follow. Possible discharge to inpatient rehab in 24- 48 hours.
[2018-11-08 16:06] LABS: Glucose,Whole Blood 189 mg/dL (75-99)
[2018-11-08 17:03] LABS: Glucose,Whole Blood 179 mg/dL (75-99)
[2018-11-08] MEDS: SENNOSIDES-DOCUSATE SODIUM 1 EACH TAB PO SCH (20:05)
[2018-11-08 21:23] LABS: Glucose,Whole Blood 107 mg/dL (75-99)
[2018-11-08] MEDS: INSULIN DETEMIR (LEVEMIR) 100 UNIT/ML SYR SQ SCH (22:47)
[2018-11-09 02:19] LABS: Glucose,Whole Blood 148 mg/dL (75-99)
[2018-11-09] MEDS: INSULIN ASPART (NovoLOG) 100 UNIT/ML VIAL SQ SCH ×8 (02:47→20:53)
[2018-11-09] MEDS: ACETAMINOPHEN TAB 500 MG TAB PO PRN ×3 (04:51→22:04)
[2018-11-09 06:59] LABS: Glucose,Whole Blood 215 mg/dL (75-99)
[2018-11-09] MEDS: MULTIVITAMINS, THERA 1 EACH TAB PO SCH (08:03)
[2018-11-09] MEDS: CLOPIDOGREL 75 MG TAB PO SCH (08:03)
[2018-11-09] MEDS: CHOLECALCIFEROL 1,000 UNIT TAB PO SCH (08:03)
[2018-11-09] MEDS: ASPIRIN 325 MG TAB PO SCH (08:03)
[2018-11-09] MEDS: hydrALAZINE HCL 10 MG TAB PO SCH ×2 (08:03→20:37)
[2018-11-09] MEDS: PANTOPRAZOLE 40 MG TABLET PO SCH (08:03)
[2018-11-09] MEDS: FERROUS SULFATE 325 MG TAB PO SCH (08:03)
[2018-11-09] MEDS: METOPROLOL TARTRATE 50 MG TAB PO SCH ×2 (08:03→20:37)
[2018-11-09] MEDS: AMIODARONE 200 MG TAB PO SCH ×2 (08:03→20:37)
[2018-11-09] MEDS: HEPARIN SODIUM,PORCINE 5,000 UNIT/ML 1 ML VIAL SQ SCH ×2 (08:04→16:52)
[2018-11-09] MEDS: IPRATROPIUM-ALBUTEROL 3 ML NEB INHALATION SCH ×4 (08:50→20:06)
[2018-11-09] MEDS ORDERED: FUROSEMIDE 10 MG/ML 2 ML VIAL IV STA (09:19)
--- NOTE | 2018-11-09 09:34 | XR ---
EXAMINATION TYPE: XR chest 2V DATE OF EXAM: 11/09/2018 COMPARISON: 11/08/2018 HISTORY: Postcardiac surgery. TECHNIQUE: Frontal and lateral views of the chest are obtained. FINDINGS: Sternotomy wires and surgical clips overlying the mediastinum. Postsurgical changes of min i maze procedure. Redemonstration of left basilar opacities, similar to prior. Right lung is clear. U pper lungs are clear. No pneumothorax. Cardiac silhouette stable in size. Osseous structures are philly sly intact. IMPRESSION: Overall, no significant change when compared to prior exam.
--- NOTE | 2018-11-09 09:36 | P.PN ---
Subjective Progress Note Date: 11/09/18 Principal diagnosis: Severe eccentric mitral valve regurgitation, severely calcified mitral annulus, torn chordae to P1 posterior leaflet. Previous medical history of coronary art marcel disease with recent drug-eluting stent placed to the LAD on 09/24/2018, chronic diastolic heart failure, hypertension, hyperlipidemia, type 2 diabetes mellitus with peripheral neuropathy and preoperative hemoglobin A1c 7%, chronic kidney disease with baseline creatinine around 2, moderate COPD with preoperative FEV1 54% of predicted, obstructive sleep apnea without home CPAP use, pulmonary hypertension, obesity, osteoarthritis, previous pipe tobacco use. Preoperative tooth abscess with extraction and antibiotic administration, cleared for surgery by dentist. POD #9 complex mitral valve repair with resection of torn chordae to P1, posterior leaflet plication of P1 and P2, small resection P1P2 leaflet, plication of both anterior mitral trigones, clip ligation of the left atrial appendage with a 35 mm AtriClip and intraoperative transesophageal echocardiogram. Postoperative acute blood loss anemia, expected outcome secondary to cardiopulmonary bypass and hemodilution Postoperative transaminitis, unexpected Postoperative atrial fibrillation, unexpected The patient is currently sitting up in the recliner eating breakfast on the cardiac stepdown unit in no acute distress. Continues to complain of minimal post surgical type pain which is controlled on current medication regimen, complains of shortness of breath with activity, only walked in the hallway twice yesterday, refusing to walk in the hallway with nursing staff. Normal sinus rhythm and hemodynamically stable. Liver enzymes continue to trend down, kidney function continues to improve. Patient will need rehabilitation at discharge, inpatient rehab will not have a bed until next Monday and patient may not qu alify for aggressive physical therapy if he continues to refuse to ambulate in the hallway, insurance authorization started for subacute rehab. Objective - Vital Signs Vital signs: Vital Signs Temp 97.5 F L 11/09/18 08:00 Pulse 64 11/09/18 09:02 Resp 18 11/09/18 08:00 BP 130/84 11/09/18 08:00 Pulse Ox 97 11/09/18 08:00 Intake & Output 11/08/18 11/09/18 11/09/18 18:59 06:59 18:59 Intake Total 240 Output Total 500 550 Balance -260 -550 Weight 94.5 kg Intake: Oral 240 Output: Urine 500 550 Other: Voiding Method Urinal Urinal # Voids 1 ABP, PAP, CO, CI - Last Documented Arterial Blood Pressure 144/49 Pulmonary Artery Pressure 52/22 Cardiac Output 7.5 Cardiac Index 3.6 - Constitutional General appearance: Present: no acute distress, obese - Respiratory Details: Lungs sounds diminished bilaterally. Respirations even, nonlabored. Currently on room air with oxygen saturation 96%. Still only able to achieve 750 mL on his incentive spirometry. Strong nonproductive cough. - Cardiovascular Details: S1, S2 present. Regular rate and rhythm, sinus rhythm on telemetry. Sternum stable. Palpable peripheral pulses bilaterally. No edema present. No calf pain or tenderness noted. Heart hugger in place with patient demonstrating appropriate use. Antiembolism stockings, SCDs present. - Gastrointestinal Gastrointestinal Comment(s): Abdomen soft, nontender, nondistended, obese. Active bowel sounds present 4 quadrants. Tolerating diet. Positive bowel movement. - Genitourinary Genitourinary Comment(s): Continues to void clear, yellow urine. - Integumentary Integumentary Comment(s): Skin is warm and dry with evidence of good perfusion. Anterior chest incision well approximated and covered with dry intact dressing. - Neurologic Neurologic: Present: CNII-XII intact - Musculoskeletal Musculoskeletal: Present: gait normal, strength equal bilaterally - Psychiatric Psychiatric: Present: A&O x's 3, appropriate affect - Allied health notes Allied health notes reviewed: nursing - Labs CBC & Chem 7: 11/08/18 05:34 11/08/18 05:34 Labs: Abnormal Lab Results - Last 24 Hours (Table) 11/08/18 11/08/18 11/08/18 Range/Units 11:38 15:57 16:51 POC Glucose (mg/dL) 199 H 189 H 179 H (75-99) mg/dL 11/08/18 11/09/18 11/09/18 Range/Units 21:22 02:18 06:57 POC Glucose (mg/dL) 107 H 148 H 215 H (75-99) mg/dL - Imaging and Cardiology Chest x-ray: image reviewed Assessment and Plan Assessment: 1. Severe eccentric mitral valve regurgitation with severely calcified mitral annulus and torn chordae to P1 posterior leaflet, status post complex mitral valve repair 2. Coronary artery disease with recent drug-eluting stent to the LAD on 09/24/2018 3. Chronic diastolic heart failure 4. Hypertension 5. Hyperlipidemia 6. Type 2 diabetes mellitus with peripheral neuropathy and hemoglobin A1c 7% 7. Chronic kidney disease with creatinine baseline around 2 8. Moderate COPD with preoperative FEV1 54% of predicted 9. Obstructive sleep apnea without home CPAP use 10. Pulmonary hypertension 11. Obesity 12. Osteoarthritis 13. Previous pipe tobacco dependence 14. Preoperative tooth abscess with extraction and antibiotics 15. Postoperative acute blood loss anemia 16. Postoperative transaminitis 17. Postoperative atrial fibrillation Plan: 1. Continue aspirin, Plavix, beta sun therapy. Will increase beta sun therapy as tolerated. Continue to hold statin is secondary to transaminitis, we will reinitiate once liver enzymes have normalized. 2. Continue amiodarone for A. fib prophylaxis, 200 mg twice daily, decrease to 200 mg daily 11/15/2018. No anticoagulation. 3. Continue hydralazine for afterload reduction. Increased to 20 mg twice daily today 4. Will monitor daily labs, chest x-rays. No transfusion. Electrolyte replacement per protocol. 5. Pain control with current medication regimen. No Toradol secondary to kidney function. 6. Encourage incentive spirometry use 10 times every hour while awake. Bronchodilators per pulmonology. 7. Insulin/diabetic management per primary care service. 8. Increase activity, ambulate in hallway. PT/OT/cardiac rehab following. Patient needs much encouragement for ambulation. 9. Discharge planning in progress. Anticipate discharge to subacute rehab today, waiting on insurance authorization. 10. More recommendations to follow. Time with Patient: Greater than 30
[2018-11-09 09:45] LABS: Anisocytosis Slight; Hypochromasia Slight; MCH 30.8 pg (25.0-35.0); MCV 96.2 fL (80.0-100.0); Macrocytosis Slight; Mean Platelet Volume 7.9; Platelet Count 294 k/uL (150-450); Poikilocytosis Slight; RBC 2.91 m/uL (4.30-5.90); RDW 16.8 % (11.5-15.5); WBC 10.2 k/uL (3.8-10.6)
[2018-11-09 09:56] LABS: Albumin 3.9 g/dL (3.5-5.0); Calcium 8.8 mg/dL (8.4-10.2); Potassium 4.7 mmol/L (3.5-5.1); Total Bilirubin 1.1 mg/dL (0.2-1.3)
[2018-11-09] MEDS: ASCORBIC ACID 500 MG TAB PO SCH (11:21)
[2018-11-09] MEDS ORDERED: FUROSEMIDE 40 MG TAB PO STA (11:25)
[2018-11-09 11:38] LABS: Glucose,Whole Blood 204 mg/dL (75-99)
--- NOTE | 2018-11-09 13:22 | P.PN ---
Subjective Progress Note Date: 11/09/18 Principal diagnosis: Severe mitral regurgitation This is a 73-year-old gentleman with CAD and prior stenting of the LAD, severe mitral regurgitation, underwent mitral valve repair. On follow-up with the patient today, November 092018, the patient is doing good from a cardiovascular standpoint of view. He is stable clinically. Hemodynamically he is stable. Objective - Vital Signs Vital signs: Vital Signs Temp 98 F 11/09/18 11:36 Pulse 64 11/09/18 12:22 Resp 18 11/09/18 11:36 BP 117/53 11/09/18 11:36 Pulse Ox 94 L 11/09/18 11:36 Intake & Output 11/08/18 11/09/18 11/09/18 18:59 06:59 18:59 Intake Total 240 Output Total 500 550 Balance -260 -550 Weight 94.5 kg Intake: Oral 240 Output: Urine 500 550 Other: Voiding Method Urinal Urinal Urinal # Voids 1 ABP, PAP, CO, CI - Last Documented Arterial Blood Pressure 144/49 Pulmonary Artery Pressure 52/22 Cardiac Output 7.5 Cardiac Index 3.6 - Constitutional General appearance: Present: no acute distress - Respiratory Respiratory: bilateral: diminished - Cardiovascular Rhythm: regular - Labs CBC & Chem 7: 11/09/18 09:12 11/09/18 09:12 Labs: Abnormal Lab Results - Last 24 Hours (Table) 11/08/18 11/08/18 11/08/18 Range/Units 15:57 16:51 21:22 RBC (4.30-5.90) m/uL Hgb (13.0-17.5) gm/dL Hct (39.0-53.0) % RDW (11.5-15.5) % Sodium (137-145) mmol/L Chloride (98-107) mmol/L Carbon Dioxide (22-30) mmol/L BUN (9-20) mg/dL Creatinine (0.66-1.25) mg/dL Glucose (74-99) mg/dL POC Glucose (mg/dL) 189 H 179 H 107 H (75-99) mg/dL AST (17-59) U/L ALT (21-72) U/L 11/09/18 11/09/18 11/09/18 Range/Units 02:18 06:57 09:12 RBC 2.91 L (4.30-5.90) m/uL Hgb 9.0 L (13.0-17.5) gm/dL Hct 28.0 L (39.0-53.0) % RDW 16.8 H (11.5-15.5) % Sodium (137-145) mmol/L Chloride (98-107) mmol/L Carbon Dioxide (22-30) mmol/L BUN (9-20) mg/dL Creatinine (0.66-1.25) mg/dL Glucose (74-99) mg/dL POC Glucose (mg/dL) 148 H 215 H (75-99) mg/dL AST (17-59) U/L ALT (21-72) U/L 11/09/18 11/09/18 Range/Units 09:12 11:37 RBC (4.30-5.90) m/uL Hgb (13.0-17.5) gm/dL Hct (39.0-53.0) % RDW (11.5-15.5) % Sodium 135 L (137-145) mmol/L Chloride 95 L (98-107) mmol/L Carbon Dioxide 33 H (22-30) mmol/L BUN 101 H* (9-20) mg/dL Creatinine 2.27 H (0.66-1.25) mg/dL Glucose 260 H (74-99) mg/dL POC Glucose (mg/dL) 204 H (75-99) mg/dL AST 81 H (17-59) U/L ALT 265 H (21-72) U/L Assessment and Plan Assessment: Assessment #1 CAD and status post LAD stenting #2 severe mitral regurgitation and status post repair #3 multiple comorbid conditions including hypertension and dyslipidemia Plan #1 continue the current medical regimen #2 discharged to rehab facility in the next 24 hours
[2018-11-09 13:23] VITALS: BMI 33.6
--- NOTE | 2018-11-09 15:36 | P.PN ---
Subjective Progress Note Date: 11/09/18 Principal diagnosis: Coronary artery disease The patient is seen today 11/09/2017 in follow-up on the selective care unit. He is currently sitting up in a chair at the bedside. Awake and alert in no acute distress. Maintaining good O2 saturations in the 90s on room air. He s till needs increased encouragement regarding activity and the continued use with the incentive spirometer. His x-ray shows some continued left basilar opacities similar to previous. Right lung is clear. No pneumothorax. White count 10.2. Hemoglobin 9.0. Sodium 135. Potassium 4.7. BUN 11. Creatinine 2.27. AST 81. ALT 265. Objective - Vital Signs Vital signs: Vital Signs Temp 98 F 11/09/18 11:36 Pulse 64 11/09/18 12:22 Resp 18 11/09/18 11:36 BP 117/53 11/09/18 11:36 Pulse Ox 94 L 11/09/18 11:36 Intake & Output 11/08/18 11/09/18 11/09/18 18:59 06:59 18:59 Intake Total 240 Output Total 500 550 575 Balance -260 -550 -575 Weight 94.5 kg 94.5 kg Intake: Oral 240 Output: Urine 500 550 575 Other: Voiding Method Urinal Urinal Urinal # Voids 1 ABP, PAP, CO, CI - Last Documented Arterial Blood Pressure 144/49 Pulmonary Artery Pressure 52/22 Cardiac Output 7.5 Cardiac Index 3.6 - Exam GENERAL EXAM: Pleasant 73-year-old gentleman. Up in a chair at the bedside. In no apparent distress. On room air. HEAD: Normocephalic. EYES: Normal reaction of pupils, equal size. NOSE: Clear with pink turbinates. THROAT: No erythema or exudates. NECK: No masses, no JVD. CHEST: Sternal dressing dry and intact. Heart Hugger in place. LUNGS: Equal air entry with crackles in the left posterior base. CVS: S1 and S2 normal with no audible murmur, regular rhythm. ABDOMEN: No hepatosplenomegaly, normal bowel sounds, no guarding or rigidity. SPINE: No scoliosis or deformity SKIN: No rashes CENTRAL NERVOUS SYSTEM: No focal deficits, tone is normal in all 4 extremities. EXTREMITIES: There is trace peripheral edema. No clubbing, no cyanosis. Peripheral pulses are intact. - Labs CBC & Chem 7: 11/09/18 09:12 11/09/18 09:12 Labs: Abnormal Lab Results - Last 24 Hours (Table) 11/08/18 11/08/18 11/08/18 Range/Units 15:57 16:51 21:22 RBC (4.30-5.90) m/uL Hgb (13.0-17.5) gm/dL Hct (39.0-53.0) % RDW (11.5-15.5) % Sodium (137-145) mmol/L Chloride (98-107) mmol/L Carbon Dioxide (22-30) mmol/L BUN (9-20) mg/dL Creatinine (0.66-1.25) mg/dL Glucose (74-99) mg/dL POC Glucose (mg/dL) 189 H 179 H 107 H (75-99) mg/dL AST (17-59) U/L ALT (21-72) U/L 11/09/18 11/09/18 11/09/18 Range/Units 02:18 06:57 09:12 RBC 2.91 L (4.30-5.90) m/uL Hgb 9.0 L (13.0-17.5) gm/dL Hct 28.0 L (39.0-53.0) % RDW 16.8 H (11.5-15.5) % Sodium (137-145) mmol/L Chloride (98-107) mmol/L Carbon Dioxide (22-30) mmol/L BUN (9-20) mg/dL Creatinine (0.66-1.25) mg/dL Glucose (74-99) mg/dL POC Glucose (mg/dL) 148 H 215 H (75-99) mg/dL AST (17-59) U/L ALT (21-72) U/L 11/09/18 11/09/18 Range/Units 09:12 11:37 RBC (4.30-5.90) m/uL Hgb (13.0-17.5) gm/dL Hct (39.0-53.0) % RDW (11.5-15.5) % Sodium 135 L (137-145) mmol/L Chloride 95 L (98-107) mmol/L Carbon Dioxide 33 H (22-30) mmol/L BUN 101 H* (9-20) mg/dL Creatinine 2.27 H (0.66-1.25) mg/dL Glucose 260 H (74-99) mg/dL POC Glucose (mg/dL) 204 H (75-99) mg/dL AST 81 H (17-59) U/L ALT 265 H (21-72) U/L Assessment and Plan Assessment: Impression: #1 Severe mitral valve regurgitation with severely calcified mitral annulus, torn chordae to P1 posterior leaflet. He is status post complex mitral valve repair with resection of torn chordae to P1, posterior leaflet plication of P1 and P2, small resection P1-P2 leaflet, plication of both anterior mitral trigones, clip ligation of left atrial appendage. #2 Coronary artery disease with recent stent placement to the LAD on 09/24/2018. #3 Acute hypoxic respiratory failure secondary to an acute exacerbation of chronic diastolic congestive heart failure. Covered chest x-ray shows improvement. #4 Diabetes mellitus, type II. #5 Diabetic peripheral neuropathy. #6 Obesity. #7 Obstructive sleep apnea not on home CPAP. #8 Pulmonary hypertension. #9 History of significant pipe smoking without inhalation. FEV1 value of 54% predicted. #10 Hypertension. #11 Hyperlipidemia. #12 Osteoarthritis. #13 Elevated liver function testing. #14 Acute renal failure current creatinine 2.15. Plan: The patient was seen and evaluated by Dr. Howard. Chest x-ray, labs all reviewed. Increase the use of the incentive spirometer and cough and deep breathing exercises. Continue bronchodilators. Increase his activity as to lerated. The plan is for possible transfer to subacute rehabilitation today. I, the cosigning physician, performed a history & physical examination of the patient. Lungs sounds crackles in the left posterior base. Maintaining good O2 saturations in the 90s on room air. I discussed the assessment and plan of care with my nurse practitioner, Valerie Kaur. I attest to the above note as dictated by her.
--- NOTE | 2018-11-09 16:41 | P.PN ---
Subjective Progress Note Date: 11/09/18 Principal diagnosis: This is a 73-year-old male was admitted to have mitral valve replacement and is being closely monitored. Patient is sitting up in the recliner talking to family on the phone in no acute distress. Patient has been up and walking around the room with no difficulties. Cardiology is following. Patient is to undergo surgery in the morning. Patient is currently on IV Aggrastat. Patient denies any shortness of breath, chest pain, or palpitations at this time. Patient denies any nausea or vomiting. Patient is afebrile. Patient states he is just waiting for his heart surgery tomorrow. Guarded prognosis. This is a 73-year-old male who is currently in the ICU on postop day #1 who underwent mitral valve repair with resection with Dr. Lozada. Patient was extubated and is currently on a BiPAP. Patient is tolerating well. Patient is being closely monitored. Family is at the bedside. Patient is currently still on an insulin drip at 7.5 units per hour and is being closely monitored. Patient still has a chest tube on the left side with a total of 210 mL output over the last 8 hours. Patient still has an indwelling Burrell catheter and monitoring output as well. Dr. Celis is following the patient closely. 11/02/2018 Today patient is still currently in the ICU and post op day #2 for the mitral valve repair with resection and is being closely monitored. Patient is currently still on a Bipap with settings of 12/5, 50% Fi02. Patient is hemodynamically stable after receiving 1 unit of PRBC earlier this morning. Patient denies any new shortness of breath, chest pain, or palpitations. Patient is tolerating the Bipap. Patient has poor incentive spirometer use and achieving 200. Patient is very lethargic but easily arousable. Patient will be working with PT/OT once respiratory status has stabilized. Patient is currently on a lasix drip and u rine output has slightly improved. Patient is also on Cleviprex for blood pressure control. Prognosis is extremely guarded. Will continue to monitor closely. 11/05/2018 Patient is currently sitting up in the recliner eating lunch in no acute distress. Patient is currently still in the ICU postop day #5 and is being closely monitored status post mitral valve replacement. Patient is off the BiPA P and currently on 2 L via nasal cannula and oxygenating well. Patient has a poor response with his incentive spirometer of approximately 4-500 Max. Discussed with the patient at length about attempting incentive spirometer at least 10 times per hour while awake. at the bedside. Patient is a poor oral intake stating that he doesn't have much of an appetite. Patient is attempting to eat with each meal. Blood sugars are being monitored closely and we'll continue to treat accordingly. Patient denies any chest pain, palpitations and states that his shortness of breath has improved but still gets winded while walking. Patient walked to the hallway and back as well as to the bathroom with PT/OT. Patient denies any nausea or vomiting at this time. Patient is afebrile. Patient's liver functions were elevated but are trending down. Creatinine is slowly improving as well. Current creatinine is 2.75 down from 3.03. IV Lasix drip was discontinued. Patient is urinating well with good output. Patient states he has not had a bowel movement yet but was given a laxative. Patient denies any abdominal discomfort at this time. Guarded prognosis. 11/06/2018 Patient remains in the ICU this morning and is sitting up in the recliner in no acute distress. Patient is overall looking and feeling much better. Patient states that he has been working on his incentive spirometer when prompted and is achieving 750 at times. Patient states that his shortness of breath has improved. Patient still states that he gets a little fatigued with walking but is improving. PT/OT/cardiac rehab are following. Patient is being closely monitored by pulmonary, cardiothoracic, and cardiology. Patient states that he is eating more and denies any nausea or vomiting. Patient had a bowel movement yesterday. Patient denies any abdominal pain at this time. Patient's blood sugars have been monitored closely and treated accordingly. Patient is able to move out of the ICU at this time. Patient remains afebrile. Current creatinine is 2.4 and trending down. Patient is still off lasix drip at this time. Guarded prognosis. 11/07/2018 Patient is sitting up in the recliner still currently in the ICU awaiting a bed assignment on 3 S. in no acute distress. Patient denies any chest pain, shortness of breath, or palpitations at this time. Patient does have some minor chest discomfort due to surgery but is manageable. Patient has a working on his incentive spirometer. Patient denies any nausea or vomiting and is tolerating diet. Patient is urinating well. SCDs are present. Patient does have some mild pedal edema that is improving. Patient remains afebrile. Patient is tentatively going to [facility] in the morning for inpatient rehab. LFTs are trending down. Creatinine today is 2.13. Blood sugars are being monitored closely. Guarded prognosis. 11/08/2018 Patient is sitting up in recliner and moving to 3 S. as there is a bed there now while awaiting insurance authorization for inpatient rehab at [facility]. Patient denies any chest pain or palpitations at this time. Patient has been continuing to use his incentive spirometer and is achieving 750 at this time. Patient is on room air and states that he has some mild shortness of breath but only with exertion. Patient's creatinine is 2.15 today and trending down. His liver functions are improving as well. Will continue to monitor labs and vital signs closely. Cardio vascular surgery, pulmonary, and cardiology are following closely. Patient's amiodarone was decreased to 200 mg twice daily. Blood sugars have been slightly elevated today and we will increase the Levemir to 10 units twice daily and continue to monitor. Patient denies any nausea or vomiting and has been tolerating diet. Patient is afebrile. Guarded prognosis 11/09/2018 Patient is sitting up in bed in no acute distress. Patient is currently awaiting authorization from his insurance for inpatient rehab. Per social work [facility] may not have authorization until Monday of next week. Social work and case management are working on placement at the medical [facility] [place]. Patient is still using his incentive spirometer more so when prompted to. Patient also needs encouragement with walking. Patient states that he just wants to go home but understands that rehab is needed. Patient is afebrile. Patient denies any chest pain, shortness of breath, or palpitations. Patient states that he is tired today. Patient's LFTs continued to trend down. Current creatinine is 2.27. We will continue to monitor. Blood sugars have been fluctuating as well. Will monitor closely. Guarded prognosis. Objective - Vital Signs Vital signs: Vital Signs Temp 98 F 11/09/18 16:00 Pulse 62 11/09/18 16:00 Resp 18 11/09/18 16:00 BP 109/57 11/09/18 16:00 Pulse Ox 96 11/09/18 16:00 Intake & Output 11/08/18 11/09/18 11/09/18 18:59 06:59 18:59 Intake Total 240 Output Total 500 550 575 Balance -260 -550 -575 Weight 94.5 kg 94.5 kg Intake: Oral 240 Output: Urine 500 550 575 Other: Voiding Method Urinal Urinal Urinal # Voids 1 ABP, PAP, CO, CI - Last Documented Arterial Blood Pressure 144/49 Pulmonary Artery Pressure 52/22 Cardiac Output 7.5 Cardiac Index 3.6 - Exam Gen: This is a 73-year-old male sitting up in recliner in no acute distress. Vital signs are stable. Oxygen saturation is 96% on room air. HEENT: Head is atraumatic, normocephalic. Pupils equal, round. Sclerae is anicteric. NECK: Supple. No JVD. No lymphadenopathy. No thyromegaly. LUNGS: Lung sounds diminished at the bases with a few scattered crackles noted. minimal expiratory wheezing noted. No intercostal retractions. HEART: S1 and S2 are muffled ABDOMEN: Soft. Bowel sounds are present. No masses. No tenderness. EXTREMITIES: Mild pedal edema with improvement since yesterday. No calf tenderness. NEUROLOGICAL: Patient is awake, alert and oriented x3. Cranial nerves 2 through 12 are grossly intact. Patient has been walking with PT/OT and tolerating well. - Labs CBC & Chem 7: 11/09/18 09:12 11/09/18 09:12 Labs: Abnormal Lab Results - Last 24 Hours (Table) 11/08/18 11/08/18 11/09/18 Range/Units 16:51 21:22 02:18 RBC (4.30-5.90) m/uL Hgb (13.0-17.5) gm/dL Hct (39.0-53.0) % RDW (11.5-15.5) % Sodium (137-145) mmol/L Chloride (98-107) mmol/L Carbon Dioxide (22-30) mmol/L BUN (9-20) mg/dL Creatinine (0.66-1.25) mg/dL Glucose (74-99) mg/dL POC Glucose (mg/dL) 179 H 107 H 148 H (75-99) mg/dL AST (17-59) U/L ALT (21-72) U/L 11/09/18 11/09/18 11/09/18 Range/Units 06:57 09:12 09:12 RBC 2.91 L (4.30-5.90) m/uL Hgb 9.0 L (13.0-17.5) gm/dL Hct 28.0 L (39.0-53.0) % RDW 16.8 H (11.5-15.5) % Sodium 135 L (137-145) mmol/L Chloride 95 L (98-107) mmol/L Carbon Dioxide 33 H (22-30) mmol/L BUN 101 H* (9-20) mg/dL Creatinine 2.27 H (0.66-1.25) mg/dL Glucose 260 H (74-99) mg/dL POC Glucose (mg/dL) 215 H (75-99) mg/dL AST 81 H (17-59) U/L ALT 265 H (21-72) U/L 11/09/18 Range/Units 11:37 RBC (4.30-5.90) m/uL Hgb (13.0-17.5) gm/dL Hct (39.0-53.0) % RDW (11.5-15.5) % Sodium (137-145) mmol/L Chloride (98-107) mmol/L Carbon Dioxide (22-30) mmol/L BUN (9-20) mg/dL Creatinine (0.66-1.25) mg/dL Glucose (74-99) mg/dL POC Glucose (mg/dL) 204 H (75-99) mg/dL AST (17-59) U/L ALT (21-72) U/L Assessment and Plan Assessment: Severe mitral regurgitation: Patient underwent mitral valve replacement. Carotid disease with recent myocardial infarction and stent placement Severe pulmonary hypertension Chronic diastolic dysfunction, congestive heart failure Chronic kidney disease stage III creatinine is baseline was 2.11. We'll continue to monitor closely creatinine today is 2.15 Acute on chronic renal failure Elevated LFTs, possibly drug-induced; trending down Hyperlipidemia Gastroesophageal reflux disease Diabetes mellitus type 2 with diabetic nephropathy: Patient will be resumed on home medications. Will titrate insulin and diabetic medications depending on blood sugar readings. Blood sugar readings have been slightly elevated today. Will increase Levemir to 10 units twice daily and continue to monitor. DVT prophylaxis: Patient is on heparin subq every 8 hours Atelectasis Recommendations and discussion Recommend continue current medications, management, and symptomatic treatment. Patient is currently still waiting on authorization from insurance to [facility] [place] as [facility] may not be available until Monday of next week. Will continue to monitor labs and vital signs closely. Cardiology, pulmonary, and cardiothoracic surgery are following closely. PT/OT/cardiac rehab following the patient. Will continue to monitor blood sugars closely and treat accordingly. Continue to encourage incentive spirometer use every hour while awake. Continue to encourage walking. Guarded prognosis. Further recommendations to follow. Possible discharge to [facility] of in 24- 48 hours.
[2018-11-09 17:14] LABS: Glucose,Whole Blood 88 mg/dL (75-99)
[2018-11-09 20:37] LABS: Glucose,Whole Blood 258 mg/dL (75-99)
[2018-11-09] MEDS: SENNOSIDES-DOCUSATE SODIUM 1 EACH TAB PO SCH (20:37)
[2018-11-09] MEDS: INSULIN DETEMIR (LEVEMIR) 100 UNIT/ML SYR SQ SCH (20:53)
[2018-11-10] MEDS: HEPARIN SODIUM,PORCINE 5,000 UNIT/ML 1 ML VIAL SQ SCH ×2 (00:58→08:52)
[2018-11-10 02:54] LABS: Glucose,Whole Blood 171 mg/dL (75-99)
[2018-11-10] MEDS: INSULIN ASPART (NovoLOG) 100 UNIT/ML VIAL SQ SCH ×5 (03:06→12:41)
[2018-11-10 06:19] LABS: Glucose,Whole Blood 219 mg/dL (75-99)
--- NOTE | 2018-11-10 07:03 | XR ---
EXAMINATION TYPE: XR chest 2V DATE OF EXAM: 11/10/2018 HISTORY: post cardiac surgery. REFERENCE: Previous study dated 11/09/2018. FINDINGS: There has been a midline sternotomy. The heart is enlarged. There is minimal left basilar airspace disease. The right lung is clear. Pleur al spaces are clear. IMPRESSION: MINIMAL RESIDUAL LEFT BASILAR ATELECTASIS.
[2018-11-10] MEDS ORDERED: FUROSEMIDE 40 MG TAB PO STA (08:20)
[2018-11-10] MEDS: IPRATROPIUM-ALBUTEROL 3 ML NEB INHALATION SCH ×2 (08:30→11:57)
--- NOTE | 2018-11-10 08:31 | P.DS ---
Providers Date of admission: 10/28/18 10:47 Expected date of discharge: 11/10/18 Attending physician: Elgin Loazda Consults: 10/28/18 11:01 Consult Physician Routine Consulting Provider: Maxi Deng Consult Reason/Comments: cardiology managment Do you want consulting provider notified?: Yes Consult Physician Routine Consulting Provider: Reshma Merrill Consult Reason/Comments: medical managment, Jorge patient Do you want consulting provider notified?: Yes 10/29/18 06:13 Consult Physician Routine Consulting Provider: Sergey Celis Consult Reason/Comments: preop cardiac surgery Do you want consulting provider notified?: Yes, Notify in am 10/30/18 08:35 Consult to Anesthesia Routine Consulting Provider: Anesthesia,Services Consult Reason/Comments: Cardiac Surgery Pre-Op 11/05/18 10:11 Consult Physician Routine Consulting Provider: Eddi Martinez Consult Reason/Comments: Assess for inpatient rehab Do you want consulting provider notified?: Yes Primary care physician: Jordan Patel Hospital Course: FINAL DIAGNOSIS: 1. Severe eccentric mitral valve regurgitation, severely calcified mitral annulus, torn chordae to P1 posterior leaflet 2. History of coronary artery disease with recent drug-eluting stent placed to the LAD on 09/24/2018 3. Chronic diastolic heart failure 4. Hypertension 5. Hyperlipidemia 6. Type 2 diabetes mellitus with peripheral neuropathy and preoperative hemoglobin A1c 7% 7. Chronic kidney disease with baseline creatinine around 2 8. Moderate COPD with preoperative FEV1 54% of predicted 9. Obstructive sleep apnea without home CPAP use 10. Pulmonary hypertension 11. Obesity 12. Osteoarthritis 13. Previous pipe tobacco use 14. Postoperative acute blood loss anemia 15. Postoperative transaminitis 16. Postoperative atrial fibrillation PRINCIPAL PROCEDURE: 1. Complex mitral valve repair with resection of torn chordae to P1, posterior leaflet plication of P1 and P2, small resection of P1P2 leaflet, plication of both anterior mitral trigones 2. Clip ligation of the left atrial appendage with a 35 mm AtriClip 3. Intraoperative transesophageal echocardiogram HISTORY OF PRESENT ILLNESS: This is a 73-year-old gentleman who follows on an outpatient basis with Dr. Patel for primary care and Dr. Deng for cardiology. He had been experiencing exertional dyspnea for quite a while, and had had been getting progressively worse. He denied any other symptoms of chest pain, orthopnea, paroxysmal nocturnal dyspnea, or lightheadedness/dizziness. Earlier this year he had a transthoracic echocardiogram in the cardiology office which demonstrated significant mitral regurgitation. He was recommended to have a transesophageal echocardiogram which was completed 07/23/2018 and which de monstrated preserved left ventricular function with left atrial enlargement, calcified mitral valve with an eccentric jet projecting anteriorly, questionable ruptured chordae involving the posterior leaflet, and 3-4+ mitral regurgitation. Subsequently he was recommended to undergo heart catheterization, which was completed in August 2018 demonstrating calcified right and left systems with 70% stenosis in the proximal left anterior descending coronary artery and noncritical stenosis in the proximal circumflex coronary artery of 40-50%. He was discharged to home to follow-up with Dr. Deng to further discuss his options. He returned to [facility] labou[facility] on 09/24/2018 and received a drug-eluting stent to his left anterior descending artery, to be discharged home on dual antiplatelet therapy. He continued to have exertional dyspnea and was referred to Dr. Lozada from cardiovascular surgery by Dr. Deng for evaluation for surgical repair or replacement of his mitral valve. He was seen in the office by Dr. Lozada was recommended to undergo mitral valve repair with possible replacement. The usual perioperative course was discussed in detail with the patient and his family, all risks and benefits were explained, all questions were answered, and consent was obtained to proceed with surgery. He did obtain dental clearance and was scheduled for surgery 10/31/2018. Due to his recent drug-eluting stent, stopping antiplatelet therapy altogether would have been detrimental, so Plavix was stopped 7 days prior to surgery and the patient was admitted for IV antiplatelet medication 72 hours prior to surgery. HOSPITAL COURSE: The patient was taken to the preoperative area on 10/31/2018, prepared in the usual fashion, and subsequently taken to the operating room where Dr. Lozada performed complex mitral valve repair with resection of torn chordae to P1, posterior leaflet plication of P1 and P2, small resection of P1P2 leaflet, plication of both anterior mitral trigones, clip ligation of the left atrial appendage with a 35 mm AtriClip, and intraoperative transesophageal echocardiogram. Upon completion of surgery the patient was transferred to the cardiovascular intensive care unit where he was recovered, monitored hemodynamically, and where he progressed to cardiac rehabilitation phase 1. He was extubated, and all lines, tubes, and drips were discontinued when appropriate. He did develop acute blood loss anemia and was treated with blood transfusion. In addition he developed transaminitis which continues to resolve, as well as postoperative atrial fibrillation which was successfully treated with amiodarone therapy. He was transferred to 3 S. cardiac stepdown unit for further monitoring and rehabilitation once a bed became available. His oxygen w as titrated down, he continued to work with physical and occupational therapy, he was tolerating oral diet, his pain was controlled, and he was ready to be discharged to rehab on postoperative day #8, however he needed to wait for insurance authorization, so he remained in the hospital until authorization was obtained. He received written and verbal instruction regarding his medications, activity restrictions, signs and symptoms requiring physician notification, and follow-up appointments. Statins were not prescribed on discharge and were contraindicated secondary to transaminitis, they should be restarted once patient's liver enzymes normalize. COMPLICATIONS: The patient experienced postoperative complications of acute blood loss anemia, transaminitis, and atrial fibrillation, all of which were treated accordingly. Patient Condition at Discharge: Stable Plan - Discharge Summary Discharge Rx Participant: Yes New Discharge Prescriptions: New hydrALAZINE HCL [Apresoline] 20 mg PO BID tab Aspirin 325 mg PO DAILY tab Amiodarone [Cordarone] 200 mg PO BID tab Ipratropium-Albuterol Nebulize [Duoneb 0.5 mg-3 mg/3 ml Soln] 3 ml INHALATION RT-QID ampul.neb Ipratropium-Albuterol Nebulize [Duoneb 0.5 mg-3 mg/3 ml Soln] 3 ml INHALATION RT-Q2H PRN ampul.neb PRN Reason: Shortness Of Breath Or Wheezing Heparin Sodium,Porcine [Heparin Sodium] 5,000 unit SQ Q8HR vial Insulin Detemir (Levemir) [Levemir] 10 unit SQ HS syr Metoprolol Tartrate [Lopressor] 50 mg PO BID tab INSULIN ASPART (NovoLOG) [NovoLOG (formulary)] 10 unit SQ AC-TID vial INSULIN ASPART (NovoLOG) [NovoLOG (formulary)] 0 unit SQ [id number] vial Clopidogrel [Plavix] 75 mg PO DAILY tab Pantoprazole [Protonix] 40 mg PO DAILY tablet. Sennosidetracey-Docusate Sodium [Senokot-S] 2 each PO HS PRN tab PRN Reason: Constipation Acetaminophen Tab [Tylenol] 1,000 mg PO Q6HR PRN tab PRN Reason: Fever And/ Or Pain Ascorbic Acid [Vitamin C] 500 mg PO DAILY@1200 tab Continue Mini,Poppyi, B.lactis [Probiotic] 1 cap PO DAILY Ferrous Sulfate [Iron (65 MG Elemental)] 325 mg PO DAILY Cholecalciferol [Vitamin D3 (25 Mcg = 1000 Iu)] 2,000 unit PO DAILY Multivitamins, Thera [Multivitamin (formulary)] 1 tab PO DAILY Furosemide [Lasix] 40 mg PO DAILY #30 tab Zinc 50 mg PO DAILY Discontinued Dulaglutide [Trulicity] 1.5 mg SQ MO Desloratadine 5 mg PO DAILY Atorvastatin [Lipitor] 80 mg PO DAILY Aspirin 81 mg PO DAILY Krill Oil 500 mg PO DAILY Fenofibrate 160 mg PO AC-SUPPER Metoprolol Tartrate [Lopressor] 25 mg PO BID #60 tab Insulin Lispro [humaLOG Kwikpen] 10 unit SQ AC-BID@0800,1600 PRN PRN Reason: Blood Sugar - High Celecoxib [CeleBREX] 200 mg PO DAILY PRN PRN Reason: Pain Lisinopril [Prinivil] 20 mg PO DAILY Ubidecarenone [Co Q-10] 100 mg PO DAILY Glimepiride [Amaryl] 1 mg PO AC-BRKFST Discharge Medication List Cholecalciferol [Vitamin D3 (25 Mcg = 1000 Iu)] 2,000 unit PO DAILY 01/04/16 [History] Ferrous Sulfate [Iron (65 MG Elemental)] 325 mg PO DAILY 01/04/16 [History] Mini,Paracasei, B.lactis [Probiotic] 1 cap PO DAILY 01/04/16 [History] Multivitamins, Thera [Multivitamin (formulary)] 1 tab PO DAILY 01/09/17 [History] Furosemide [Lasix] 40 mg PO DAILY #30 tab 01/13/17 [Rx] Zinc 50 mg PO DAILY 07/17/18 [History] Acetaminophen Tab [Tylenol] 1,000 mg PO Q6HR PRN tab 11/10/18 [Rx] Amiodarone [Cordarone] 200 mg PO BID tab 11/10/18 [Rx] Ascorbic Acid [Vitamin C] 500 mg PO DAILY@1200 tab 11/10/18 [Rx] Aspirin 325 mg PO DAILY tab 11/10/18 [Rx] Clopidogrel [Plavix] 75 mg PO DAILY tab 11/10/18 [Rx] Heparin Sodium,Porcine [Heparin Sodium] 5,000 unit SQ Q8HR vial 11/10/18 [Rx] INSULIN ASPART (NovoLOG) [NovoLOG (formulary)] 0 unit SQ [id number] vial 11/10/18 [Rx] INSULIN ASPART (NovoLOG) [NovoLOG (formulary)] 10 unit SQ AC-TID vial 11/10/18 [Rx] Insulin Detemir (Levemir) [Levemir] 10 unit SQ HS syr 11/10/18 [Rx] Ipratropium-Albuterol Nebulize [Duoneb 0.5 mg-3 mg/3 ml Soln] 3 ml INHALATION RT-Q2H PRN ampul.neb 11/10/18 [Rx] Ipratropium-Albuterol Nebulize [Duoneb 0.5 mg-3 mg/3 ml Soln] 3 ml INHALATION RT-QID ampul.neb 11/10/18 [Rx] Metoprolol Tartrate [Lopressor] 50 mg PO BID tab 11/10/18 [Rx] Pantoprazole [Protonix] 40 mg PO DAILY tablet. 11/10/18 [Rx] Sennosides-Docusate Sodium [Senokot-S] 2 each PO HS PRN tab 11/10/18 [Rx] hydrALAZINE HCL [Apresoline] 20 mg PO BID tab 11/10/18 [Rx] Follow up Appointment(s)/Referral(s): Elgin Lozada MD [STAFF PHYSICIAN] - 11/28/18 3:15 pm Maxi Deng MD [STAFF PHYSICIAN] - 1 Week (Follow-up Dr. Deng/Marlen Zepeda/Cary Cummings once discharged from rehab) Jordan Patel III, MD [Primary Care Provider] - 1 Week (please make follow up appointment upon discharge from rehab) Sergey Celis DO [Doctor of Osteopathic Medicine] - 1 Week (please make follow up upon discharge from rehab) Activity/Diet/Wound Care/Special Instructions: DISCHARGE INSTRUCTIONS: 1. No driving for 4 weeks, or until physician gives their ok. 2. The patient should sleep in their own bed, no medical bed needed. 3. Stairs are not an issue. If the bedroom is upstairs, it is advised that the patient go up at night and down in the morning for the first week. Go slowly, using handrail and take 1 step at a time. 4. GUERRERO hose are to be worn for 30 days or until physician discontinues. 5. Heart hugger is to be worn 100% of the time until physician discontinues.(except when showering) 6. No lifting, pushing, or pulling more than 10 pounds for 12 weeks. The physician will advise of any restriction changes. 7. The patient is expected to continue the prescribed walking program. 8. Continue pain control per as needed orders. 9. Continue with incentive spirometry and splinting/heart hugger until otherwise directed by the physician. 10. Must shower daily using liquid antibacterial soap and a separate white washcloth for each individual incision. 11. Routine sternal incision care. No powders, lotions, ointments on incisions. 12. Please call surgeon/STOKER INSTALLER for temp greater than 101 F or purulent drainage from incisions. 13. All prescriptions given by surgeon for 30 days. Refills need to be filled through [facility]/primary care physician. 14. A Red armband has been placed on the patient. It should be worn for 30 days post surgery and will be removed by the cardiac surgeons. If an ER visit is necessary, please make sure the number on the Red armband is called. REHAB/HOME HEALTH SERVICES TO PROVIDE: RN SKILLED HOME CARE SERVICES FOR POST-OP SURGICAL PATIENTS WITH THE FOLLOWING: Coronary Artery Bypass Surgery (CABG), Mitral Valve Replacement/Repair ( MVR), Aortic Valve Replacement/Repair (AVR) RN TO CONTINUE EDUCATION FROM ``ROAD TO A HEALTH HEART PATIENT EDUCATION MANUAL (GIVEN TO PATIENT IN THE HOSPITAL) MEDICATION RECONCILIATION WITH EDUCATION NEEDED ON FIRST HOME VISIT EMPHASIZE IMPORTANCE OF WEARING BREAST SUPPORT/HEART HUGGER ENCOURAGE USE OF INCENTIVE SPIROMETER 10 X EVERY HOUR WHILE AWAKE ENCOURAGE UTILIZATION OF LOWER EXTREMITY COMPRESSION STOCKINGS/GUERRERO HOSE and ELEVATE LEGS ABOVE LEVEL OF HEART WHILE AT REST. ENCOURAGE AMBULATION 3-5x/day INCREASING TOLERATES, WHILE AVOID EXTREMES IN TEMPERATURE FREQUENCY: RN TO OPEN THE PATIENT WITHIN 24 HOURS OF DISCHARGE FROM REHAB WITH TELEHEALTH INSTALLED AT [facility] [place], RN TO VISIT 2-3 X A WEEK FOR 4 WEEKS ESTABLISHED BY PATIENT NEEDS. LABORATORY: CBC, CMP TO BE DRAWN PER REHAB PROTOCOL, (RAN STAT) FAX RESULTS TO [phone]. TELEHEALTH PARAMETERS: WEIGHT: NOTIFY MD OF WEIGHT GAIN OF 2 LBS IN 24 HOURS OR 5 LBS IN ONE WEEK HR: NOTIFY MD OF HR <55 BPM OR HR>100 BPM BP: NOTIFY MD IF BP <90/55 OR BP>140/100 O2 SAT: NOTIFY MD IF PO2<93% ON ROOM AIR SEND TELEHEALTH REPORT TO CORPORATE STRATEGIST AND CARDIOVASCULAR SURGEON THE FIRST WEEK OF CARE AND THEN BI-WEEKLY. PLEASE ADDITIONALLY COMMUNICATE ANY ABNORMALS AND NEW FINDINGS TO THE SURGEONS OFFICE.
[2018-11-10 08:33] VITALS: RESP 20
[2018-11-10 08:42] VITALS: PULSE 62
[2018-11-10] MEDS: ACETAMINOPHEN TAB 500 MG TAB PO PRN (08:48)
[2018-11-10] MEDS: MULTIVITAMINS, THERA 1 EACH TAB PO SCH (08:49)
[2018-11-10] MEDS: PANTOPRAZOLE 40 MG TABLET PO SCH (08:49)
[2018-11-10] MEDS: AMIODARONE 200 MG TAB PO SCH (08:49)
[2018-11-10] MEDS: METOPROLOL TARTRATE 50 MG TAB PO SCH (08:49)
[2018-11-10] MEDS: CHOLECALCIFEROL 1,000 UNIT TAB PO SCH (08:49)
[2018-11-10] MEDS: ASPIRIN 325 MG TAB PO SCH (08:49)
[2018-11-10] MEDS: ASCORBIC ACID 500 MG TAB PO SCH (08:53)
[2018-11-10] MEDS: FERROUS SULFATE 325 MG TAB PO SCH (08:55)
[2018-11-10] MEDS: CLOPIDOGREL 75 MG TAB PO SCH (08:55)
--- NOTE | 2018-11-10 10:55 | P.PN ---
Subjective 73-year-old male was admitted to have mitral valve replacement and is being closely monitored. Patient is sitting up in the recliner talking to family on the phone in no acute distress. Patient has been up and walking around the room with no difficulties. Cardiology is following. Patient is to undergo surgery in the morning. Patient is currently on IV Aggrastat. Patient denies any shortness of breath, chest pain, or palpitations at this time. Patient denies any nausea or vomiting. Patient is afebrile. Patient states he is just waiting for his heart surgery tomorrow. Guarded prognosis. This is a 73-year-old male who is currently in the ICU on postop day #1 who underwent mitral valve repair with resection with Dr. Lozada. Patient was extubated and is currently on a BiPAP. Patient is tolerating well. Patient is being closely monitored. Family is at the bedside. Patient is currently still on an insulin drip at 7.5 units per hour and is being closely monitored. Patient still has a chest tube on the left side with a total of 210 mL output over the last 8 hours. Patient still has an indwelling Burrell catheter and monitoring output as well. Dr. Celis is following the patient closely. 11/02/2018 Today patient is still currently in the ICU and post op day #2 for the mitral valve repair with resection and is being closely monitored. Patient is currently still on a Bipap with settings of 12/5, 50% Fi02. Patient is hemodynamically stable after receiving 1 unit of PRBC earlier this morning. Patient denies any new shortness of breath, chest pain, or palpitations. Patient is tolerating the Bipap. Patient has poor incentive spirometer use and achieving 200. Patient is very lethargic but easily arousable. Patient will be working with PT/OT once respiratory status has stabilized. Patient is currently on a lasix drip and urine output has slightly improved. Patient is also on Cleviprex for blood pressure control. Prognosis is extremely guarded. Will continue to monitor closely. 11/05/2018 Patient is currently sitting up in the recliner eating lunch in no acute distress. Patient is currently still in the ICU postop day #5 and is being closely monitored status post mitral valve replacement. Patient is off the Bi PAP and currently on 2 L via nasal cannula and oxygenating well. Patient has a poor response with his incentive spirometer of approximately 4-500 Max. Discussed with the patient at length about attempting incentive spirometer at least 10 times per hour while awake. at the bedside. Patient is a poor oral intake stating that he doesn't have much of an appetite. Patient is attempting to eat with each meal. Blood sugars are being monitored closely and we'll continue to treat accordingly. Patient denies any chest pain, palpitations and states that his shortness of breath has improved but still gets winded while walking. Patient walked to the hallway and back as well as to the bathroom with PT/OT. Patient denies any nausea or vomiting at this time. Patient is afebrile. Patient's liver functions were elevated but are trending down. Creatinine is slowly improving as well. Current creatinine is 2.75 down from 3.03. IV Lasix drip was discontinued. Patient is urinating well with good output. Patient states he has not had a bowel movement yet but was given a laxative. Patient denies any abdominal discomfort at this time. Guarded prognosis. 11/06/2018 Patient remains in the ICU this morning and is sitting up in the recliner in no acute distress. Patient is overall looking and feeling much better. Patient states that he has been working on his incentive spirometer when prompted and is achieving 750 at times. Patient states that his shortness of breath has improved. Patient still states that he gets a little fatigued with walking but is improving. PT/OT/cardiac rehab are following. Patient is being closely monitored by pulmonary, cardiothoracic, and cardiology. Patient states that he is eating more and denies any nausea or vomiting. Patient had a bowel movement yesterday. Patient denies any abdominal pain at this time. Patient's blood sugars have been monitored closely and treated accordingly. Patient is able to move out of the ICU at this time. Patient remains afebrile. Current creatinine is 2.4 and trending down. Patient is still off lasix drip at this time. Guarded prognosis. 11/07/2018 Patient is sitting up in the recliner still currently in the ICU awaiting a bed assignment on 3 S. in no acute distress. Patient denies any chest pain, shortness of breath, or palpitations at this time. Patient does have some minor chest discomfort due to surgery but is manageable. Patient has a working on his incentive spirometer. Patient denies any nausea or vomiting and is tolerating diet. Patient is urinating well. SCDs are present. Patient does have some mild pedal edema that is improving. Patient remains afebrile. Patient is tentatively going to [facility] in the morning for inpatient rehab. LFTs are trending down. Creatinine today is 2.13. Blood sugars are being monitored closely. Guarded prognosis. 11/08/2018 Patient is sitting up in recliner and moving to 3 S. as there is a bed there now while awaiting insurance authorization for inpatient rehab at [facility]. Patient denies any chest pain or palpitations at this time. Patient has been continuing to use his incentive spirometer and is achieving 750 at this time. Patient is on room air and states that he has some mild shortness of breath but only with exertion. Patient's creatinine is 2.15 today and trending down. His liver functions are improving as well. Will continue to monitor labs and vital signs closely. Cardio vascular surgery, pulmonary, and cardiology are following closely. Patient's amiodarone was decreased to 200 mg twice daily. Blood sugars have been slightly elevated today and we will increase the Levemir to 10 units twice daily and continue to monitor. Patient denies any nausea or vomiting and has been tolerating diet. Patient is afebrile. Guarded prognosis 11/09/2018 Patient is sitting up in bed in no acute distress. Patient is currently awaiting authorization from his insurance for inpatient rehab. Per social work [facility] may not have authorization until Monday of next week. Social work and case management are working on placement at the medical [facility]. Patient is still using his incentive spirometer more so when prompted to. Patient also needs encouragement with walking. Patient states that he just wants to go home but understands that rehab is needed. Patient is afebrile. Patient denies any chest pain, shortness of breath, or palpitations. Patient states that he is tired today. Patient's LFTs continued to trend down. Current creatinine is 2.27. We will continue to monitor. Blood sugars have been fluctuating as well. Will monitor closely. Guarded prognosis. 11/10/2018 Patient is being discharged today to subacute rehabilitation Constitutional: Denied any fatigue denied any fever. Cardio vascular: denied any chest pain, palpitations Gastrointestinal denied any nausea vomiting Pulmonary: Denied any shortness of breath cough Neurologic denied any new focal deficits All inpatient medications were reviewed and appropriate changes in these medicat ions as dictated in the interval history and assessment and plan. Objective - Vital Signs Vital signs: Vital Signs Temp 98.2 F 11/10/18 08:00 Pulse 62 11/10/18 08:41 Resp 20 11/10/18 08:00 BP 128/59 11/10/18 08:00 Pulse Ox 99 11/10/18 08:00 Intake & Output 11/09/18 11/10/18 11/10/18 18:59 06:59 18:59 Output Total 575 750 Balance -575 -750 Weight 94.5 kg 95 kg Output: Urine 575 750 Other: Voiding Method Urinal Urinal # Voids 2 ABP, PAP, CO, CI - Last Documented Arterial Blood Pressure 144/49 Pulmonary Artery Pressure 52/22 Cardiac Output 7.5 Cardiac Index 3.6 - Exam Gen: This is a 73-year-old male sitting up in recliner in no acute distress. Vital signs are stable. Oxygen saturation is 96% on room air. HEENT: Head is atraumatic, normocephalic. Pupils equal, round. Sclerae is anicteric. NECK: Supple. No JVD. No lymphadenopathy. No thyromegaly. LUNGS: Lung sounds diminished at the bases with a few scattered crackles noted. minimal expiratory wheezing noted. No intercostal retractions. HEART: S1 and S2 are muffled ABDOMEN: Soft. Bowel sounds are present. No masses. No tenderness. EXTREMITIES: Mild pedal edema with improvement since yesterday. No calf tenderness. NEUROLOGICAL: Patient is awake, alert and oriented x3. Cranial nerves 2 through 12 are grossly intact. Patient has been walking with PT/OT and tolerating well. - Labs CBC & Chem 7: 11/09/18 09:12 11/09/18 09:12 Labs: Abnormal Lab Results - Last 24 Hours (Table) 11/02/18 11/09/18 11/09/18 Range/Units 08:15 09:12 11:37 Sodium 135 L (137-145) mmol/L Chloride 95 L (98-107) mmol/L Carbon Dioxide 33 H (22-30) mmol/L BUN 101 H* (9-20) mg/dL Creatinine 2.27 H (0.66-1.25) mg/dL Glucose 260 H (74-99) mg/dL POC Glucose (mg/dL) 204 H (75-99) mg/dL AST 81 H (17-59) U/L ALT 265 H (21-72) U/L Crossmatch See Detail 11/09/18 11/10/18 11/10/18 Range/Units 20:36 02:52 06:18 Sodium (137-145) mmol/L Chloride (98-107) mmol/L Carbon Dioxide (22-30) mmol/L BUN (9-20) mg/dL Creatinine (0.66-1.25) mg/dL Glucose (74-99) mg/dL POC Glucose (mg/dL) 258 H 171 H 219 H (75-99) mg/dL AST (17-59) U/L ALT (21-72) U/L Crossmatch Assessment and Plan Plan: Severe mitral regurgitation: Patient underwent mitral valve replacement. Carotid disease with recent myocardial infarction and stent placement Severe pulmonary hypertension Chronic diastolic dysfunction, congestive heart failure Chronic kidney disease stage III creatinine is baseline was 2.11. We'll continue to monitor closely creatinine today is 2.15 Acute on chronic renal failure Elevated LFTs, possibly drug-induced; trending down Hyperlipidemia Gastroesophageal reflux disease Diabetes mellitus type 2 with diabetic nephropathy: DVT prophylaxis: Patient is on heparin subq every 8 hours AtelectasisO stop related to incentive spirometry and patient will be discharge d.
[2018-11-10 11:24] VITALS: BP 110/66; TEMP 97.8
[2018-11-10] MEDS: hydrALAZINE HCL 10 MG TAB PO SCH (11:38)
--- NOTE | 2018-11-10 12:26 | P.PN ---
Subjective Progress Note Date: 11/10/18 This a very pleasant 73-year-old gentleman who has a history of coronary artery disease with a recent stent placement to the LAD on 09/24/2018, chronic diastolic congestive heart failure, hypertension, hyperlipidemia, diabetes mellitus type 2 with peripheral neuropathy, chronic kidney disease, obstructive sleep apnea not utilizing CPAP in the outpatient setting, pulmonary hypertension, obesity, osteoarthritis, significant pipe smoking however denied any inhalation with the pipe. His FEV1 value is 54% of predicted. He was also found to have severe mitral valve regurgitation and has been seen by c ardiothoracic surgery. The underwent mitral valve repair to be performed on 10/31/[address] Lozada. On 11/10/2018 the patient is postop day #9. He is on room air oxygen. He is ambulating. Incentive spirometer still being utilized although the numbers are still low at 1000. He is weak. He is in need for rehabilitation. Cardiac rhythm is sinus. LFTs improved. No nausea. No vomiting. No abdominal pain. Chest tubes have been removed. No other significant events overnight. The pat ient will be taken to rehab today. Objective - Vital Signs Vital signs: Vital Signs Temp 97.8 F 11/10/18 11:23 Pulse 62 11/10/18 11:23 Resp 20 11/10/18 11:23 BP 110/66 11/10/18 11:23 Pulse Ox 98 11/10/18 11:23 Intake & Output 11/09/18 11/10/18 11/10/18 18:59 06:59 18:59 Output Total 575 750 200 Balance -575 -750 -200 Weight 94.5 kg 95 kg Output: Urine 575 750 200 Other: Voiding Method Urinal Urinal # Voids 2 ABP, PAP, CO, CI - Last Documented Arterial Blood Pressure 144/49 Pulmonary Artery Pressure 52/22 Cardiac Output 7.5 Cardiac Index 3.6 - Exam GENERAL EXAM: Pleasant 73-year-old gentleman. Up in a chair at the bedside. In no apparent distress. On room air. HEAD: Normocephalic. EYES: Normal reaction of pupils, equal size. NOSE: Clear with pink turbinates. THROAT: No erythema or exudates. NECK: No masses, no JVD. CHEST: Sternal dressing dry and intact. Heart Hugger in place. LUNGS: Equal air entry with crackles in the left posterior base. CVS: S1 and S2 normal with no audible murmur, regular rhythm. ABDOMEN: No hepatosplenomegaly, normal bowel sounds, no guarding or rigidity. SPINE: No scoliosis or deformity SKIN: No rashes CENTRAL NERVOUS SYSTEM: No focal deficits, tone is normal in all 4 extremities. EXTREMITIES: There is trace peripheral edema. No clubbing, no cyanosis. Periph eral pulses are intact. - Labs CBC & Chem 7: 11/09/18 09:12 11/09/18 09:12 Labs: Abnormal Lab Results - Last 24 Hours (Table) 11/02/18 11/09/18 11/10/18 Range/Units 08:15 20:36 02:52 POC Glucose (mg/dL) 258 H 171 H (75-99) mg/dL Crossmatch See Detail 11/10/18 Range/Units 06:18 POC Glucose (mg/dL) 219 H (75-99) mg/dL Crossmatch Assessment and Plan Plan: #1 Severe mitral valve regurgitation with severely calcified mitral annulus, torn chordae to P1 posterior leaflet. He is status post complex mitral valve repair with resection of torn chordae to P1, posterior leaflet plication of P1 and P2, small resection P1-P2 leaflet, plication of both anterior mitral trigones, clip ligation of left atrial appendage. The patient is postop day #9 #2 Coronary artery disease with recent stent placement to the LAD on 09/24/2018. #3 Acute hypoxic respiratory failure secondary to an acute exacerbation of chronic diastolic congestive heart failure. Covered chest x-ray shows improvement. #4 Diabetes mellitus, type II. #5 Diabetic peripheral neuropathy. #6 Obesity. #7 Obstructive sleep apnea not on home CPAP. #8 Pulmonary hypertension. #9 History of significant pipe smoking without inhalation. FEV1 value of 54% predicted. #10 Hypertension. #11 Hyperlipidemia. #12 Osteoarthritis. #13 Elevated liver function testing. The LFTs have been constantly improving #14 Acute renal failure current creatinine being stable at 2.2 and a BUN is improving Plan We'll going to discharge this patient to rehabilitation. He is going to use incentive spirometer. 40 mg of Lasix. He will be on aspirin. He will be on metoprolol 25 mg by mouth twice a day for blood sugar control with a combination of Amaryl and lispro insulin and trulicity
[2018-11-10 12:36] LABS: Glucose,Whole Blood 196 mg/dL (75-99)
--- NOTE | 2018-11-13 10:38 | CDI ---
Documentation Clarification Form Date: 11/13/2018 10:36:00 AM From: Akiko Bass Phone: If you have a question regarding this query, please contact Kat Read at [phone] between 8am and 5pm. Admit Date: 10/28/2018 10:47:00 AM Patient Name: Deep Anderson Visit Number: [id number] Discharge Date: 11/10/2018 1:07:00 PM ATTENTION: The Clinical Documentation Specialists (CDI) and [facility] Coding Staff appreciate your assistance in clarifying documentation. Please respond to the clarification below the line at the bottom and electronically sign. The CDI & [facility] Coding staff will review the response and follow-up if needed. Please note: Queries are made part of the Legal Health Record. If you have any questions, please contact the author of this message via ITS. Dr. Pk Leon Postoperative atrial Fibrillation is documented in the discharge summary and in your progress notes from 11/07 - 11/09 History/Risk Factors: Mitral valve regurgitation with repair, hypertension, CAD and diastolic CHF. Clinical Indicators: Short of breath with activity Telemetry: 11/06 A-fib, 11/07 1st degree heart block, ST segment elevation Treatment: IV amiodarone In your professional opinion, can you please clarify the type of Atrial Fibrillation, if known? Chronic/Permanent Paroxysmal Persistent Other, please specify Unable to determine parox ysmal MTDD
== END 2018-11-10 13:07 | disposition home health service (06) | DRG 219 ==
LOC: 3SCARD 10:47 → 2SICU 10-31 08:09 → 3SCARD 11-08 11:09
PROVIDERS: ADMIT Thoracic Surgery (Cardiothoracic Vascular Surgery); ATTEND Thoracic Surgery (Cardiothoracic Vascular Surgery)
PROC: B54DZZZ Ultrasonography of Bilateral Lower Extremity Veins (ICD-10-PCS; 2018-10-29)
PROC: 02L70CK Occlusion of Left Atrial Appendage with Extraluminal Device, Open Approach (ICD-10-PCS; 2018-10-31)
PROC: B24BZZ4 Ultrasonography of Heart with Aorta, Transesophageal (ICD-10-PCS; 2018-10-31)
PROC: 30233K1 Transfusion of Nonautologous Frozen Plasma into Peripheral Vein, Percutaneous Approach (ICD-10-PCS; 2018-10-31)
PROC: 02QG0ZZ Repair Mitral Valve, Open Approach (ICD-10-PCS; principal; 2018-10-31 08:30)
PROC: 5A1221Z Performance of Cardiac Output, Continuous (ICD-10-PCS; 2018-10-31 08:30)
PROC: 30233N1 Transfusion of Nonautologous Red Blood Cells into Peripheral Vein, Percutaneous Approach (ICD-10-PCS; 2018-11-02)
DX: I34.0 Nonrheumatic mitral (valve) insufficiency (principal); I50.33 Acute on chronic diastolic (congestive) heart failure; I51.1 Rupture of chordae tendineae, not elsewhere classified; J96.01 Acute respiratory failure with hypoxia; I13.0 Hypertensive heart and chronic kidney disease with heart failure and stage 1 through stage 4 chronic kidney disease, or unspecified chronic kidney disease; J98.11 Atelectasis; N17.9 Acute kidney failure, unspecified; I48.1 Persistent atrial fibrillation; D62 Acute posthemorrhagic anemia; I95.9 Hypotension, unspecified; E11.22 Type 2 diabetes mellitus with diabetic chronic kidney disease; E11.42 Type 2 diabetes mellitus with diabetic polyneuropathy; I27.20 Pulmonary hypertension, unspecified; J44.9 Chronic obstructive pulmonary disease, unspecified; E66.01 Morbid (severe) obesity due to excess calories; N18.3 Chronic kidney disease, stage 3 (moderate); R00.1 Bradycardia, unspecified; E78.5 Hyperlipidemia, unspecified; G47.33 Obstructive sleep apnea (adult) (pediatric); R74.0 Nonspecific elevation of levels of transaminase and lactic acid dehydrogenase [LDH]; I25.10 Atherosclerotic heart disease of native coronary artery without angina pectoris; I25.2 Old myocardial infarction; K21.9 Gastro-esophageal reflux disease without esophagitis; M19.90 Unspecified osteoarthritis, unspecified site; R94.5 Abnormal results of liver function studies; H26.9 Unspecified cataract; T50.995A Adverse effect of other drugs, medicaments and biological substances, initial encounter; Z79.1 Long term (current) use of non-steroidal anti-inflammatories (NSAID); Z79.4 Long term (current) use of insulin; Z79.82 Long term (current) use of aspirin; Z79.899 Other long term (current) drug therapy; Z95.5 Presence of coronary angioplasty implant and graft; Z68.33 Body mass index [BMI] 33.0-33.9, adult; Z87.891 Personal history of nicotine dependence; Z80.52 Family history of malignant neoplasm of bladder; Z82.49 Family history of ischemic heart disease and other diseases of the circulatory system; Z83.3 Family history of diabetes mellitus
CPT/HCPCS: 71045; 71046; 80048; 80053; 80061; 80074; 81003; 82330; 82805; 83036; 83735; 84132; 84443; 85025; 85027; 85520; 85610; 85730; 86850; 86891; 86900; 86901; 86920; 87070; 87086; 88305; 88311; 93880; 93970; 94002; 94150; 94640; 94660; 94760

== ENCOUNTER 2018-11-15 10:28 | Inpatient (IN) | payer MEDICARE ==
--- NOTE | 2018-11-15 11:02 | ED ---
Recheck HPI - General Chief Complaint: Recheck/Abnormal Lab/Rx Stated Complaint: Abnormal labs Time Seen by Provider: 11/15/18 10:35 Source: patient, EMS Mode of arrival: EMS Limitations: no limitations - History of Present Illness Initial Comments: 73yo male with extensive past medical history with recent mitral valve replacement performed 10/31/2018 presents to emergency department as sent from home for abnormal laboratory studies. Patient states he had outpatient laboratory studies drawn yesterday by his home care nurse. The patient states that today he received a phone call stating his kidney function was decreasing and he was to present to the emergency department. Patient has no current complaints he states he has had the same pain since the surgery. Denies any new chest pain denies any new shortness of breath. Patient denies fevers. Patient does leg swelling or calf pain. Patient was in a subacute rehab for 1 day however then was transferred home care due to personal preferences. Family however is now concerned that patient is not safe at home that be placed in a rehab facility. Surgeon is aware of patient presenting to ER. I spoke with homecare nurse. - Related Data Home Medications Medication Instructions Recorded Confirmed Cholecalciferol [Vitamin D3 (25 2,000 unit PO DAILY 01/04/16 11/15/18 Mcg = 1000 Iu)] Ferrous Sulfate [Iron (65 MG 325 mg PO DAILY 01/04/16 11/15/18 Elemental)] L.acidoph,Paracasei, B.lactis 1 cap PO DAILY 01/04/16 11/15/18 [Probiotic] Multivitamins, Thera [Multivitamin 1 tab PO DAILY 01/09/17 11/15/18 (formulary)] Zinc 50 mg PO DAILY 07/17/18 11/15/18 Previous Rx's Medication Instructions Recorded Acetaminophen Tab [Tylenol Tab] 1,000 mg PO Q6HR #120 tablet 11/11/18 Albuterol Inhaler [Ventolin Hfa 1 - 2 puff INHALATION RT-Q6H PRN 11/11/18 Inhaler] #1 inhaler Amiodarone [Cordarone] 200 mg PO DAILY #15 tab 11/11/18 Aspirin 325 mg PO DAILY #30 tab 11/11/18 Clopidogrel [Plavix] 75 mg PO DAILY #30 tablet 11/11/18 Furosemide [Lasix] 40 mg PO DAILY #30 tab 11/11/18 Insulin Detemir [Levemir Flextouch] 10 units SQ HS 30 Days #3 pen 11/11/18 Insulin Lispro [humaLOG Kwikpen] 10 unit SQ AC-TID 30 Days #3 11/11/18 insuln.pen Metoprolol Tartrate [Lopressor] 50 mg PO BID #60 tab 11/11/18 Pantoprazole Sodium [Protonix] 40 mg PO DAILY #30 tablet. 11/11/18 Sennosides-Docusate Sodium 2 tab PO HS PRN #14 tablet 11/11/18 [Senokot-S] Allergies Allergy/AdvReac Type Severity Reaction Status Date / Time No Known Allergies Allergy Verified 11/15/18 11:05 Review of Systems ROS Statement: Those systems with pertinent positive or pertinent negative responses have been documented in the HPI. ROS Other: All systems not noted in ROS Statement are negative. Past Medical History Past Medical History: Coronary Artery Disease (CAD), Diabetes Mellitus, Eye Disorder, Hyperlipidemia, Hypertension, Osteoarthritis (OA) Additional Past Medical History / Comment(s): SOB w/exertion,CATARACTS, sleep apnea without home CPAP use History of Any Multi-Drug Resistant Organisms: None Reported Past Surgical History: Adenoidectomy, Heart Catheterization, Heart Cathet erization With Stent, Tonsillectomy Additional Past Surgical History / Comment(s): FAUSTINO,COLONOSCOPY, heart cath 09/11/18, heart catheterization 09/24/2018 with drug-eluting stent placed to the LAD Past Anesthesia/Blood Transfusion Reactions: No Reported Reaction Additional Past Anesthesia/Blood Transfusion Reaction / Comment(s): no hx blood transfusion Date of Last Stent Placement:: September 2018 Past Psychological History: No Psychological Hx Reported Smoking Status: Former smoker Past Alcohol Use History: Rare Past Drug Use History: None Reported - Past Family History Father Family Medical History: Cancer, Diabetes Mellitus Additional Family Medical History / Comment(s): BLADDER CANCER Mother Family Medical History: Congestive Heart Failure (CHF) Additional Family Medical History / Comment(s): AT AGE 68 General Exam - General Exam Comments Initial Comments: General: The patient is awake and alert, brace in place over anterior chest Eye: +3 mm pupils are equal, round and reactive to light, extra-ocular movements are intact. No nystagmus. There is normal conjunctiva bilaterally. No signs of icterus. Ears, nose, mouth and throat: There are moist mucous membranes and no oral lesions. Neck: The neck is supple, there is no tenderness or JVD. Cardiovascular: There is a regular rate and rhythm. No murmur, rub or gallop is appreciated. Respiratory: Lungs are clear to auscultation, respirations are non-labored, breath sounds are equal. No wheezes, stridor, rales, or rhonchi. Gastrointestinal: Soft, non-distended, non-tender abdomen without masses or organomegaly noted. There is no rebound or guarding present. Bowel sounds are unremarkable. Bruising over abdomen noted. Musculoskeletal: Normal ROM, no tenderness. Strength 5/5. Sensation intact. Radial and DP Pulses equal bilaterally 2+. Neurological: A&O x 3. CN II-XII intact grossly, There are no obvious motor or sensory deficits. Coordination appears grossly intact. Speech is normal. Skin: Skin is warm and dry and no rashes or lesions are noted. No calf pain to palpation, compression hose in place b/l. Psychiatric: Cooperative, appropriate mood & affect, normal judgment. Limitations: no limitations Course Vital Signs 11/15/18 11/15/18 10:32 12:29 Temperature 97.8 F Pulse Rate 67 Respiratory 20 Rate Blood Pressure 109/60 112/62 O2 Sat by Pulse 94 L Oximetry Medical Decision Making - Medical Decision Making 73-year-old male presenting for abnormal lab value. Patient states she has been urinating. Patient has struggled with chronic kidney disease the past. Patient's surgeon was contacted with a critical creatinine value after lab draw yesterday. Concern for acute kidney injury and patient was transferred to emergency department for evaluation. I spoke with Dr. Lozada's COREY-Deep, who states that patient is ready for admission, with basic labs and nephrology on consult. No further orders, patient has no focal complaints. Patient case was discussed with my attending Dr. Marrero, who is agreeable with admission, no further orders/instruction. - Lab Data Result diagrams: 11/15/18 12:10 11/15/18 12:10 Lab Results 11/15/18 11/15/18 Range/Units 12:10 12:10 WBC 10.3 (3.8-10.6) k/uL RBC 2.84 L (4.30-5.90) m/uL Hgb 8.5 L (13.0-17.5) gm/dL Hct 27.2 L (39.0-53.0) % MCV 95.7 (80.0-100.0) fL MCH 29.8 (25.0-35.0) pg MCHC 31.2 (31.0-37.0) g/dL RDW 16.9 H (11.5-15.5) % Plt Count 360 (150-450) k/uL Neutrophils % 80 % Lymphocytes % 9 % Monocytes % 6 % Eosinophils % 3 % Basophils % 0 % Neutrophils # 8.2 H (1.3-7.7) k/uL Lymphocytes # 0.9 L (1.0-4.8) k/uL Monocytes # 0.6 (0-1.0) k/uL Eosinophils # 0.3 (0-0.7) k/uL Basophils # 0.0 (0-0.2) k/uL Hypochromasia Moderate Anisocytosis Slight Macrocytosis Slight Sodium 135 L (137-145) mmol/L Potassium 4.7 (3.5-5.1) mmol/L Chloride 102 (98-107) mmol/L Carbon Dioxide 21 L (22-30) mmol/L Anion Gap 12 mmol/L BUN 163 H* (9-20) mg/dL Creatinine 4.04 H (0.66-1.25) mg/dL Est GFR (CKD-EPI)AfAm 16 (>60 ml/min/1.73 sqM) Est GFR (CKD-EPI)NonAf 14 (>60 ml/min/1.73 sqM) Glucose 165 H (74-99) mg/dL Calcium 9.0 (8.4-10.2) mg/dL Total Bilirubin 0.7 (0.2-1.3) mg/dL AST 42 (17-59) U/L ALT 106 H (21-72) U/L Alkaline Phosphatase 70 (38-126) U/L Total Protein 6.5 (6.3-8.2) g/dL Albumin 3.5 (3.5-5.0) g/dL Disposition Clinical Impression: MIGUEL ANGEL (acute kidney injury), Post-operative state, Elevated BUN, Elevated serum creatinine Disposition: ADMITTED IP TO THIS HOSP Condition: Serious Is patient prescribed a controlled substance at d/c from ED?: No Time of Disposition: 11:56 Decision to Admit Reason: Admit from EC Decision Date: 11/15/18 Decision Time: 11:56
[2018-11-15] MEDS ORDERED: MORPHINE SULFATE 4 MG/ML SYRINGE IV PRN (11:53)
[2018-11-15] MEDS ORDERED: NALOXONE 0.4 MG/ML 1 ML VIAL IV PRN (11:53)
[2018-11-15 12:23] LABS: Anisocytosis Slight; Basophils % (A) 0 %; Eosinophils # (A) 0.3 k/uL (0-0.7); Eosinophils % (A) 3 %; HCT 27.2 % (39.0-53.0); HGB 8.5 gm/dL (13.0-17.5); Hypochromasia Moderate; Lymphocytes # (A) 0.9 k/uL (1.0-4.8); Lymphocytes % (A) 9 %; MCH 29.8 pg (25.0-35.0); MCHC 31.2 g/dL (31.0-37.0); MCV 95.7 fL (80.0-100.0); Macrocytosis Slight; Mean Platelet Volume 7.3; Monocytes # (A) 0.6 k/uL (0-1.0); Monocytes % (A) 6 %; Neutrophils # (A) 8.2 k/uL (1.3-7.7); Neutrophils % (A) 80 %; Platelet Count 360 k/uL (150-450); RBC 2.84 m/uL (4.30-5.90); RDW 16.9 % (11.5-15.5); WBC 10.3 k/uL (3.8-10.6)
[2018-11-15] MEDS: SODIUM CHLORIDE 0.9% 1,000 ML IV SCH ×2 (12:25→23:52)
[2018-11-15 12:31] LABS: Albumin 3.5 g/dL (3.5-5.0); Potassium 4.7 mmol/L (3.5-5.1); Total Bilirubin 0.7 mg/dL (0.2-1.3); Total Protein 6.5 g/dL (6.3-8.2)
[2018-11-15] MEDS ORDERED: SENNOSIDES-DOCUSATE SODIUM 1 EACH TAB PO PRN (13:15)
--- NOTE | 2018-11-15 13:47 | XR ---
EXAMINATION TYPE: XR chest 2V DATE OF EXAM: 11/15/2018 COMPARISON: Chest x-ray from 5 days ago. HISTORY: CHF and shortness of breath. TECHNIQUE: Frontal and lateral views of the chest are obtained. FINDINGS: Overlying sternal wires with cardiac closure device are redemonstrated. There is persistent cardiomegaly. Right lung remains clear. There is persistent patchy left basilar opacity silhouetting left hemidiaphragm. Osseous structures are intact. IMPRESSION: Cardiomegaly with left basilar acute infiltrate and atelectasis and small left pleural effusion. Some progression in findings from most recent chest x-ray noted.
--- NOTE | 2018-11-15 14:15 | P.HPIM ---
History of Present Illness Patient is a pleasant 73-year-old male had a recent mitral 1 repair of the seventh on October 31 does have chronic diastolic dysfunction was on Lasix at home and chronic kidney disease stage IV with baseline creatinine around 2.5. Julia goncalves had lab work up done as an outpatient which showed highly elevated BUN/creatinine creatinine going up to 4.500 and be in up to 1 ET patient has some symptoms of shortness of breath since his discharge which is exertional without any cough or sputum production patient doesn't have leukocytosis no fever no other symptoms. His Rezulin being admitted for acute renal failure. Patient was started on IV fluids. Nephrology will be canceled it. Review of Systems REVIEW OF SYSTEMS: CONSTITUTIONAL: No fever, no malaise, no fatigue. HEENT: No recent visual problems or hearing problems. Denied any sore throat. CARDIOVASCULAR: No chest pain, orthopnea, PND, no palpitations, no syncope. PULMONARY: no cough, no hemoptysis. GASTROINTESTINAL: No diarrhea, no nausea, no vomiting, no abdominal pain. NEUROLOGICAL: No headaches, no weakness, no numbness. HEMATOLOGICAL: Denies any bleeding or petechiae. GENITOURINARY: Denies any burning micturition, frequency, or urgency. MUSCULOSKELETAL/RHEUMATOLOGICAL: Denies any joint pain, swelling, or any muscle pain. ENDOCRINE: Denies any polyuria or polydipsia. The rest of the 14-point review of systems is negative. Past Medical History Past Medical History: Coronary Artery Disease (CAD), Diabetes Mellitus, Eye Disorder, Hyperlipidemia, Hypertension, Osteoarthritis (OA) Additional Past Medical History / Comment(s): SOB w/exertion,CATARACTS, sleep apnea without home CPAP use History of Any Multi-Drug Resistant Organisms: None Reported Past Surgical History: Adenoidectomy, Heart Catheterization, Heart Catheterization With Stent, Tonsillectomy Additional Past Surgical History / Comment(s): FAUSTINO,COLONOSCOPY, heart cath 09/11/18, heart catheterization 09/24/2018 with drug-eluting stent placed to the LAD Past Anesthesia/Blood Transfusion Reactions: No Reported Reaction Additional Past Anesthesia/Blood Transfusion Reaction / Comment(s): no hx blood transfusion Date of Last Stent Placement:: September 2018 Past Psychological History: No Psychological Hx Reported Smoking Status: Former smoker Past Alcohol Use History: Rare Past Drug Use History: None Reported - Past Family History Father Family Medical History: Cancer, Diabetes Mellitus Additional Family Medical History / Comment(s): BLADDER CANCER Mother Family Medical History: Congestive Heart Failure (CHF) Additional Family Medical History / Comment(s): AT AGE 68 Medications and Allergies Home Medications Medication Instructions Recorded Confirmed Type Cholecalciferol [Vitamin D3 (25 2,000 unit PO DAILY 01/04/16 11/15/18 History Mcg = 1000 Iu)] Ferrous Sulfate [Iron (65 MG 325 mg PO DAILY 01/04/16 11/15/18 History Elemental)] L.acidoph,Paracasei, B.lactis 1 cap PO DAILY 01/04/16 11/15/18 History [Probiotic] Multivitamins, Thera [Multivitamin 1 tab PO DAILY 01/09/17 11/15/18 History (formulary)] Zinc 50 mg PO DAILY 07/17/18 11/15/18 History Acetaminophen Tab [Tylenol Tab] 1,000 mg PO Q6HR #120 tablet 11/11/18 11/15/18 Rx Albuterol Inhaler [Ventolin Hfa 1 - 2 puff INHALATION RT-Q6H PRN 11/11/18 Rx Inhaler] #1 inhaler Amiodarone [Cordarone] 200 mg PO DAILY #15 tab 11/11/18 11/15/18 Rx Aspirin 325 mg PO DAILY #30 tab 11/11/18 11/15/18 Rx Clopidogrel [Plavix] 75 mg PO DAILY #30 tablet 11/11/18 11/15/18 Rx Furosemide [Lasix] 40 mg PO DAILY #30 tab 11/11/18 11/15/18 Rx Insulin Detemir [Levemir Flextouch] 10 units SQ HS 30 Days #3 pen 11/11/18 11/15/18 Rx Insulin Lispro [humaLOG Kwikpen] 10 unit SQ AC-TID 30 Days #3 11/11/18 11/15/18 Rx insuln.pen Metoprolol Tartrate [Lopressor] 50 mg PO BID #60 tab 11/11/18 11/15/18 Rx Pantoprazole Sodium [Protonix] 40 mg PO DAILY #30 tablet. 11/11/18 11/15/18 Rx Sennosides-Docusate Sodium 2 tab PO HS PRN #14 tablet 11/11/18 11/15/18 Rx [Senokot-S] Allergies Allergy/AdvReac Type Severity Reaction Status Date / Time No Known Allergies Allergy Verified 11/15/18 11:05 Physical Exam Vitals: Vital Signs Temp Pulse Resp BP Pulse Ox 11/15/18 13:04 65 18 102/50 96 11/15/18 12:29 112/62 11/15/18 10:32 97.8 F 67 20 109/60 94 L Intake and Output 11/14/18 11/15/18 11/15/18 22:59 06:59 14:59 Other: Weight 93.44 kg PHYSICAL EXAMINATION: GENERAL: The patient is alert and oriented x3, not in any acute distress. Well developed, well nourished. HEENT: Pupils are round and equally reacting to light. EOMI. No scleral icterus. No conjunctival pallor. Normocephalic, atraumatic. No pharyngeal erythema. No thyromegaly. CARDIOVASCULAR: S1 and S2 present. No murmurs, rubs, or gallops. PULMONARY: Chest is clear to auscultation, no wheezing or crackles. ABDOMEN: Soft, nontender, nondistended, normoactive bowel sounds. No palpable organomegaly. MUSCULOSKELETAL: No joint swelling or deformity. EXTREMITIES: No cyanosis, clubbing, or pedal edema. NEUROLOGICAL: Gross neurological examination did not reveal any focal deficits. SKIN: No rashes. Results CBC & Chem 7: 11/15/18 12:10 11/15/18 12:10 Labs: Abnormal Lab Results - Last 24 Hours (Table) 11/15/18 11/15/18 Range/Units 12:10 12:10 RBC 2.84 L (4.30-5.90) m/uL Hgb 8.5 L (13.0-17.5) gm/dL Hct 27.2 L (39.0-53.0) % RDW 16.9 H (11.5-15.5) % Neutrophils # 8.2 H (1.3-7.7) k/uL Lymphocytes # 0.9 L (1.0-4.8) k/uL Sodium 135 L (137-145) mmol/L Carbon Dioxide 21 L (22-30) mmol/L BUN 163 H* (9-20) mg/dL Creatinine 4.04 H (0.66-1.25) mg/dL Glucose 165 H (74-99) mg/dL ALT 106 H (21-72) U/L Thrombosis Risk Factor Assmnt - Choose All That Apply Any of the Below Risk Factors Present?: Yes Each Factor Represents 1 point: Obesity (BMI >25) Other Risk Factors: Yes Each Risk Factor Represents 2 Points: Age 61-74 years Other congenital or acquired thrombophilia - If yes, enter type in comment: No Thrombosis Risk Factor Assessment Total Risk Factor Score: 3 Thrombosis Risk Factor Assessment Level: Moderate Risk Assessment and Plan Plan: -Acute renal failure: Probably due to excessive diuretic therapy which will be held and patient was started on IV fluids and consult neurology. We'll also obtain urine and exudative urine random creatinine. -Shortness of breath and secondary to mild left-sided pleural effusion and atelectasis no evidence of and pneumonia clinically will not require any antibiotics. Left-sided effusion is probably postoperative changes from his recent carotid thoracic surgery -, Mitral valve regurgitation with recent mitral valve. -Carotid disease with recent stent placement LAD and patient is a 9 dual antiplatelet therapy which will be continued -Type 2 diabetes mellitus patient will be resumed on her his home regimen and the titrate insulin 8 depending on his blood sugars -Diabetic peripheral neuropathy -Obesity -Obstructive sleep apnea uses CPAP machine -Pulmonary hypertension -Hypertension: Patient is presently hypotensive -Hyperlipidemia -Chronic kidney disease stage IV baseline creatinine around 2.2. Secondary to diabetic nephropathy
[2018-11-15 17:00] LABS: Glucose,Whole Blood 213 mg/dL (75-99)
--- NOTE | 2018-11-15 17:50 | P.GSCN ---
History of Present Illness Consult date: 11/15/18 Reason for Consult: Known to cardiothoracic surgery service, recent mitral valve repair Requesting physician: Candido oD History of present illness: This is a 73-year-old gentleman who is followed by Dr. Patel on an outpatient basis. The patient has a past medical history significant for severe eccentric mitral valve regurgitation with severely calcified mitral annulus status post complex mitral valve repair on 10/31/2018, coronary artery disease with recent drug-eluting stent placed to the left anterior descending coronary artery in September 2018, chronic diastolic heart failure, hypertension, hyperlipidemia, type 2 diabetes mellitus with peripheral neuropathy and a preoperative hemoglobin A1c of 7%, chronic kidney disease with a baseline creatinine around 2, moderate chronic obstructive pulmonary disease with a preoperative FEV1 of 54% of predicted value, obstructive sleep apnea without home CPAP use, pulmonary hypertension, obesity, previous tobacco dependence and postoperative transaminitis and paroxysmal atrial fibrillation. On 11/10/2018 the patient was discharged to [facility] on for further rehabilitation needs and was subsequently discharged home on 11/11/2018 due to the patient's personal preference. The patient reports that he has been having increased shortness of breath since his discharge, increased swelling to his bilateral lower extremities and complaints of generalized weakness. He denies any fever, chills, nausea, vomiting, constipation or diarrhea. Yesterday the patient had labs drawn by the home care nurse, upon review of his laboratory results this sho piña is a BUN was 157 and creatinine was 4.1. After review of his labs he was encouraged to come to the emergency department at [facility] for further evaluation and treatment. Review of Systems A 14 point review of systems was completed and was negative except as mentioned in the HPI. Past Medical History Past Medical History: Atrial Fibrillation, Coronary Artery Disease (CAD), Heart Failure (S nice lady), COPD, Diabetes Mellitus, Eye Disorder, Hyperlipidemia, Hypertension, Osteoarthritis (OA), Renal Disease, Sleep Apnea/CPAP/BIPAP Additional Past Medical History / Comment(s): SOB w/exertion,CATARACTS, sleep apnea without home CPAP use History of Any Multi-Drug Resistant Organisms: None Reported Past Surgical History: Adenoidectomy, Heart Catheterization, Heart Catheterization With Stent, Tonsillectomy Additional Past Surgical History / Comment(s): FAUSTINO,COLONOSCOPY, heart cath 09/11/18, heart catheterization 09/24/2018 with drug-eluting stent placed to the LAD mitral valve repair on 10/31/2018. Past Anesthesia/Blood Transfusion Reactions: No Reported Reaction Additional Past Anesthesia/Blood Transfusion Reaction / Comm: no hx blood transfusion Date of Last Stent Placement:: September 2018 Past Psychological History: No Psychological Hx Reported Smoking Status: Former smoker Past Alcohol Use History: Rare Past Drug Use History: None Reported - Past Family History Father Family Medical History: Cancer, Diabetes Mellitus Additional Family Medical History / Comment(s): BLADDER CANCER Mother Family Medical History: Congestive Heart Failure (CHF) Additional Family Medical History / Comment(s): AT AGE 68 Medications and Allergies Home Medications Medication Instructions Recorded Confirmed Type Cholecalciferol [Vitamin D3 (25 2,000 unit PO DAILY 01/04/16 11/15/18 History Mcg = 1000 Iu)] Ferrous Sulfate [Iron (65 MG 325 mg PO DAILY 01/04/16 11/15/18 History Elemental)] L.acidoph,Paracasei, B.lactis 1 cap PO DAILY 01/04/16 11/15/18 History [Probiotic] Multivitamins, Thera [Multivitamin 1 tab PO DAILY 01/09/17 11/15/18 History (formulary)] Zinc 50 mg PO DAILY 07/17/18 11/15/18 History Acetaminophen Tab [Tylenol Tab] 1,000 mg PO Q6HR #120 tablet 11/11/18 11/15/18 Rx Albuterol Inhaler [Ventolin Hfa 1 - 2 puff INHALATION RT-Q6H PRN 11/11/18 11/15/18 Rx Inhaler] #1 inhaler Amiodarone [Cordarone] 200 mg PO DAILY #15 tab 11/11/18 11/15/18 Rx Aspirin 325 mg PO DAILY #30 tab 11/11/18 11/15/18 Rx Clopidogrel [Plavix] 75 mg PO DAILY #30 tablet 11/11/18 11/15/18 Rx Furosemide [Lasix] 40 mg PO DAILY #30 tab 11/11/18 11/15/18 Rx Insulin Detemir [Levemir Flextouch] 10 units SQ HS 30 Days #3 pen 11/11/18 11/15/18 Rx Insulin Lispro [humaLOG Kwikpen] 10 unit SQ AC-TID 30 Days #3 11/11/18 11/15/18 Rx insuln.pen Metoprolol Tartrate [Lopressor] 50 mg PO BID #60 tab 11/11/18 11/15/18 Rx Pantoprazole Sodium [Protonix] 40 mg PO DAILY #30 tablet. 11/11/18 11/15/18 Rx Sennosides-Docusate Sodium 2 tab PO HS PRN #14 tablet 11/11/18 11/15/18 Rx [Senokot-S] Allergies Allergy/AdvReac Type Severity Reaction Status Date / Time No Known Allergies Allergy Verified 11/15/18 11:05 Surgical - Exam Vital Signs Temp Pulse Resp BP Pulse Ox 97.8 F 67 20 109/60 94 L 11/15/18 10:32 11/15/18 10:32 11/15/18 10:32 11/15/18 10:32 11/15/18 10:32 - General well developed, well nourished, no distress, no pain, chronically ill, obese - Eyes PERRL, normal ocular movement - ENT normal pinna, normal nares, normal mucosa, no hearing loss, no congestion - Neck Neck is supple, no lymphadenopathy. no masses, no bruits, trachea midline, no venous distension - Respiratory Lung sounds with few scattered crackles to his bilateral bases left greater than right. Respirations are symmetrical and nonlabored. - Cardiovascular Regular rhythm and rate. S1 and S2 present, negative for S3, gallop or murmur. +2 edema to his bilateral lower extremities. Knee-high sequential compression devices in place to his bilateral lower extremities. - Abdomen Abdomen is soft, nontender and nondistended. Hypoactive bowel sounds present on for abdominal quadrants. No guarding or rigidity. No organomegaly. - Genitourinary Deferred - Rectum Deferred - Integumentary Skin is warm and dry. No clubbing or cyanosis is present. Midline sternal incision is clean, dry and approximated. No drainage or redness present. Exofin dressing is clean, dry and in place. no rash, no growths, no abnormal pigmentation - Neurologic normal coordination, normal sensation - Musculoskeletal Generalized weakness. normal gait, normal posture - Psychiatric oriented to time, oriented to person, oriented to place, speech is normal, memory intact Results - Labs 11/15/18 12:10 11/15/18 12:10 Abnormal Lab Results - Last 24 Hours (Table) 11/15/18 11/15/18 11/15/18 Range/Units 12:10 12:10 16:43 RBC 2.84 L (4.30-5.90) m/uL Hgb 8.5 L (13.0-17.5) gm/dL Hct 27.2 L (39.0-53.0) % RDW 16.9 H (11.5-15.5) % Neutrophils # 8.2 H (1.3-7.7) k/uL Lymphocytes # 0.9 L (1.0-4.8) k/uL Sodium 135 L (137-145) mmol/L Carbon Dioxide 21 L (22-30) mmol/L BUN 163 H* (9-20) mg/dL Creatinine 4.04 H (0.66-1.25) mg/dL Glucose 165 H (74-99) mg/dL POC Glucose (mg/dL) 213 H (75-99) mg/dL ALT 106 H (21-72) U/L Diabetes panel 11/15/18 Range/Units 12:10 Sodium 135 L (137-145) mmol/L Potassium 4.7 (3.5-5.1) mmol/L Chloride 102 (98-107) mmol/L Carbon Dioxide 21 L (22-30) mmol/L BUN 163 H* (9-20) mg/dL Creatinine 4.04 H (0.66-1.25) mg/dL Glucose 165 H (74-99) mg/dL Calcium 9.0 (8.4-10.2) mg/dL AST 42 (17-59) U/L ALT 106 H (21-72) U/L Alkaline Phosphatase 70 (38-126) U/L Total Protein 6.5 (6.3-8.2) g/dL Albumin 3.5 (3.5-5.0) g/dL Calcium panel 11/15/18 Range/Units 12:10 Calcium 9.0 (8.4-10.2) mg/dL Albumin 3.5 (3.5-5.0) g/dL Pituitary panel 11/15/18 Range/Units 12:10 Sodium 135 L (137-145) mmol/L Potassium 4.7 (3.5-5.1) mmol/L Chloride 102 (98-107) mmol/L Carbon Dioxide 21 L (22-30) mmol/L BUN 163 H* (9-20) mg/dL Creatinine 4.04 H (0.66-1.25) mg/dL Glucose 165 H (74-99) mg/dL Calcium 9.0 (8.4-10.2) mg/dL Adrenal panel 11/15/18 Range/Units 12:10 Sodium 135 L (137-145) mmol/L Potassium 4.7 (3.5-5.1) mmol/L Chloride 102 (98-107) mmol/L Carbon Dioxide 21 L (22-30) mmol/L BUN 163 H* (9-20) mg/dL Creatinine 4.04 H (0.66-1.25) mg/dL Glucose 165 H (74-99) mg/dL Calcium 9.0 (8.4-10.2) mg/dL Total Bilirubin 0.7 (0.2-1.3) mg/dL AST 42 (17-59) U/L ALT 106 H (21-72) U/L Alkaline Phosphatase 70 (38-126) U/L Total Protein 6.5 (6.3-8.2) g/dL Albumin 3.5 (3.5-5.0) g/dL - Imaging Chest x-ray: report reviewed, image reviewed Assessment and Plan Assessment: 1. Acute renal failure with an admission creatinine of 4.04, BUN 163 2. Shortness of breath 3. History of severe eccentric mitral valve regurgitation, severely calcified mitral annulus, torn chordae to the P1 posterior leaflet, status post complex mitral valve repair on 10/31/2018 3. History of coronary artery disease with recent drug-eluting stent placed to his left anterior descending coronary artery on 09/24/2018 4. Chronic diastolic heart failure 5. Hypertension 6. Hyperlipidemia 7. Diabetes mellitus type 2, with peripheral neuropathy and a recent hemoglobin A1c of 7% 8. Chronic kidney disease with a baseline creatinine of around 2 9. Moderate chronic obstructive pulmonary disease with a recent FEV1 54% of predicted value 10. Obstructive sleep apnea without home CPAP use 11. Pulmonary hypertension 12. Obesity 13. Osteoarthritis 14. History of tobacco dependence, previous pipe 15. History of paroxysmal atrial fibrillation 16. History of transaminitis Plan: The patient was seen and examined in the emergency department by Dr. Derek Darby. Discharge diagnostics were reviewed. Recommendations for nephrology would be consulted for his elevated BUN and creatinine. Consult drug abuse social worker for anticipation for subacute rehab or inpatient rehab upon discharge. GI and DVT prophylaxis. Encourage use of his incentive spirometry every hour while awake. Routine incision care and reinforce postoperative discharge instructions for open heart care. Consult physical and occupational therapy as well as cardiac rehab. Shower daily. Strict I's and O's. Encourage use of his heart hugger, and maintain no lifting pushing or pulling anything greater than 10 pounds or jug about for 12 full weeks. Out of bed for all meals. Thank you Dr. Do for this consult and we look forward to working with you in the care of this patient. Time with Patient: Greater than 30
[2018-11-15] MEDS: INSULIN ASPART (NovoLOG) 100 UNIT/ML VIAL SQ SCH (18:08)
[2018-11-15 20:11] LABS: Glucose,Whole Blood 242 mg/dL (75-99)
[2018-11-15] MEDS: INSULIN DETEMIR (LEVEMIR) 100 UNIT/ML SYR SQ SCH (20:22)
[2018-11-15] MEDS: METOPROLOL TARTRATE 50 MG TAB PO SCH (20:22)
[2018-11-16 01:51] LABS: Appearance,Urine Clear (Clear); Bilirubin,Urine Negative (Negative); Blood,Urine Negative (Negative); Color,Urine Yellow; Glucose,Urine (UA) Negative (Negative); Ketones,Urine Negative (Negative); Leukocyte Esterase,Urine Negative (Negative); Nitrite,Urine Negative (Negative); Protein,Urine Negative (Negative); Specific Gravity,Urine 1.016 (1.001-1.035); Urobilinogen,Urine <2.0 mg/dL (<2.0)
[2018-11-16] MEDS: ACETAMINOPHEN TAB 500 MG TAB PO PRN (03:21)
[2018-11-16 07:22] LABS: Glucose,Whole Blood 180 mg/dL (75-99)
[2018-11-16 07:42] LABS: Anisocytosis Slight; Basophils % (A) 0 %; Eosinophils # (A) 0.4 k/uL (0-0.7); Eosinophils % (A) 5 %; HCT 24.2 % (39.0-53.0); Hypochromasia Slight; Lymphocytes # (A) 0.6 k/uL (1.0-4.8); Lymphocytes % (A) 8 %; MCH 30.9 pg (25.0-35.0); MCV 93.7 fL (80.0-100.0); Macrocytosis Slight; Monocytes # (A) 0.5 k/uL (0-1.0); Monocytes % (A) 6 %; Neutrophils # (A) 6.3 k/uL (1.3-7.7); Neutrophils % (A) 80 %; Platelet Count 377 k/uL (150-450); Poikilocytosis Slight; RBC 2.59 m/uL (4.30-5.90); RDW 18.1 % (11.5-15.5); WBC 7.9 k/uL (3.8-10.6)
--- NOTE | 2018-11-16 08:33 | XR ---
EXAMINATION TYPE: XR chest 2V DATE OF EXAM: 11/16/2018 COMPARISON: November 15, 2018 HISTORY: Shortness of breath TECHNIQUE: Frontal and lateral views of the chest are obtained. FINDINGS: Scattered senescent parenchymal changes noted. Hyperinflation compatible with COPD. Strandy density left lower lobe may reflect atelectasis. Continued cardiomegaly. Sternotomy wires med iastinal clips noted. Mediastinal structures are stable and grossly unremarkable. No evidence for hilar prominence. Degenerative changes dorsal spine. IMPRESSION: 1. Strandy density left lower lobe may reflect atelectasis. Continued cardiomegaly. Sternotomy wires mediastinal clips noted.
[2018-11-16 08:50] LABS: Albumin 3.4 g/dL (3.5-5.0); Total Bilirubin 0.7 mg/dL (0.2-1.3); Total Protein 6.4 g/dL (6.3-8.2)
[2018-11-16] MEDS: ALBUTEROL NEBULIZED 2.5 MG/3 ML INHALATION PRN ×3 (08:50→21:02)
[2018-11-16] MEDS: CLOPIDOGREL 75 MG TAB PO SCH (09:00)
[2018-11-16] MEDS ORDERED: ASPIRIN 325 MG TAB PO SCH (09:00)
[2018-11-16] MEDS: METOPROLOL TARTRATE 50 MG TAB PO SCH ×2 (09:00→20:08)
[2018-11-16] MEDS: CHOLECALCIFEROL 1,000 UNIT TAB PO SCH (09:00)
[2018-11-16] MEDS: ASPIRIN 81 MG PO SCH (09:00)
[2018-11-16] MEDS: INSULIN ASPART (NovoLOG) 100 UNIT/ML VIAL SQ SCH ×3 (09:00→17:37)
[2018-11-16] MEDS: AMIODARONE 200 MG TAB PO SCH (09:00)
[2018-11-16] MEDS: FERROUS SULFATE 325 MG TAB PO SCH (09:00)
[2018-11-16] MEDS: LACTOBACILLUS ACIDOPH & BULGAR 1 EACH PACKET PO SCH (09:00)
[2018-11-16] MEDS ORDERED: INSULIN REGULAR 100 UNIT/ML VIAL IV ONE (12:02)
[2018-11-16] MEDS ORDERED: DEXTROSE 50% SYRINGE 50 ML IVP STA (12:02)
[2018-11-16] MEDS ORDERED: SODIUM BICARB 8.4% 50 ML SYR (1 MEQ/ML) IV STA (12:02)
--- NOTE | 2018-11-16 12:06 | P.NPCON ---
History of Present Illness - Reason for Consult acute renal failure, chronic renal failure - History of Present Illness Reason for consultation: Acute kidney injury on chronic kidney disease History of present illness: Patient is a 73-year-old male seen in renal consultation for acute kidney injury on chronic kidney disease. Patient has chronic kidney disease stage III with baseline creatinine in the range of 1.8-2.2. Creatinine was 4.04 on admission and is 3.18 today. He is maintained on IV fluids. Admits to good urine output. No hematuria or dysuria. No vomiting or diarrhea. He did take a couple of doses of Aleve but hasn't taken any the last few days. Patient's potassium level is 6.0 this morning. He's been working with physical therapy. Oral intake has been fair. Patient has history of severe mitral valve regurgitation and underwent mitral valve repair on 10/31/2018. He also has history of coronary artery disease with a stent to the LAD. Patient had blood work an outpatient and was placed about the hospital due to worsening renal failure. He is also been feeling progressively weaker. Patient was taking Lasix at home. Patient has history of diabetes mellitus. Blood sugars are controlled. He is acidotic with a bicarbonate level of 19. Blood pressures controlled. No significant hypotension. No melena or hematochezia. He is not on any IV steroids. Vital signs are stable. General: The patient appeared well nourished and normally developed. HEENT: Head exam is unremarkable. Neck is without jugular venous distension. LUNGS: Lungs are clear to auscultation and percussion. Breath sounds decreased. HEART: Rate and Rhythm are regular. First and second heart sounds normal. No murmurs, rubs or gallops. ABDOMEN: Abdominal exam reveals normal bowel sounds. Non-tender and non- distended. No evidence of peritonitis. EXTREMITITES: No clubbing, cyanosis, or edema. Past Medical History Past Medical History: Atrial Fibrillation, Coronary Artery Disease (CAD), Heart Failure (S nice lady), COPD, Diabetes Mellitus, Eye Disorder, Hyperlipidemia, Hypertension, Osteoarthritis (OA), Renal Disease, Sleep Apnea/CPAP/BIPAP Additional Past Medical History / Comment(s): SOB w/exertion,CATARACTS, sleep apnea without home CPAP use History of Any Multi-Drug Resistant Organisms: None Reported Past Surgical History: Adenoidectomy, Heart Catheterization, Heart Catheterization With Stent, Tonsillectomy Additional Past Surgical History / Comment(s): FAUSTINO,COLONOSCOPY, heart cath 09/11/18, heart catheterization 09/24/2018 with drug-eluting stent placed to the LAD mitral valve repair on 10/31/2018. Past Anesthesia/Blood Transfusion Reactions: No Reported Reaction Additional Past Anesthesia/Blood Transfusion Reaction / Comment(s): no hx blood transfusion Date of Last Stent Placement:: September 2018 Past Psychological History: No Psychological Hx Reported Smoking Status: Former smoker Past Alcohol Use History: Rare Past Drug Use History: None Reported - Past Family History Father Family Medical History: Cancer, Diabetes Mellitus Additional Family Medical History / Comment(s): BLADDER CANCER Mother Family Medical History: Congestive Heart Failure (CHF) Additional Family Medical History / Comment(s): AT AGE 68 Medications and Allergies Home Medications Medication Instructions Recorded Confirmed Type Cholecalciferol [Vitamin D3 (25 2,000 unit PO DAILY 01/04/16 11/15/18 History Mcg = 1000 Iu)] Ferrous Sulfate [Iron (65 MG 325 mg PO DAILY 01/04/16 11/15/18 History Elemental)] L.acidoph,Paracasei, B.lactis 1 cap PO DAILY 01/04/16 11/15/18 History [Probiotic] Multivitamins, Thera [Multivitamin 1 tab PO DAILY 01/09/17 11/15/18 History (formulary)] Zinc 50 mg PO DAILY 07/17/18 11/15/18 History Acetaminophen Tab [Tylenol Tab] 1,000 mg PO Q6HR #120 tablet 11/11/18 11/15/18 Rx Albuterol Inhaler [Ventolin Hfa 1 - 2 puff INHALATION RT-Q6H PRN 11/11/18 11/15/18 Rx Inhaler] #1 inhaler Amiodarone [Cordarone] 200 mg PO DAILY #15 tab 11/11/18 11/15/18 Rx Aspirin 325 mg PO DAILY #30 tab 11/11/18 11/15/18 Rx Clopidogrel [Plavix] 75 mg PO DAILY #30 tablet 11/11/18 11/15/18 Rx Furosemide [Lasix] 40 mg PO DAILY #30 tab 11/11/18 11/15/18 Rx Insulin Detemir [Levemir Flextouch] 10 units SQ HS 30 Days #3 pen 11/11/18 11/15/18 Rx Insulin Lispro [humaLOG Kwikpen] 10 unit SQ AC-TID 30 Days #3 11/11/18 11/15/18 Rx insuln.pen Metoprolol Tartrate [Lopressor] 50 mg PO BID #60 tab 11/11/18 11/15/18 Rx Pantoprazole Sodium [Protonix] 40 mg PO DAILY #30 tablet. 11/11/18 11/15/18 Rx Sennosides-Docusate Sodium 2 tab PO HS PRN #14 tablet 11/11/18 11/15/18 Rx [Senokot-S] Allergies Allergy/AdvReac Type Severity Reaction Status Date / Time No Known Allergies Allergy Verified 11/15/18 11:05 Physical Exam Vitals: Vital Signs Temp Pulse Pulse Resp BP BP Pulse Ox 11/16/18 11:20 65 16 110/57 97 11/16/18 09:02 76 11/16/18 08:50 72 11/16/18 08:05 97.5 F L 55 L 18 110/63 97 11/16/18 04:00 68 18 11/16/18 03:54 97.2 F L 68 18 120/59 98 11/15/18 23:51 70 18 11/15/18 23:48 97.5 F L 70 18 127/81 100 11/15/18 20:00 97.7 F 70 18 138/63 99 11/15/18 14:40 98.2 F 60 16 118/57 99 11/15/18 13:04 65 18 102/50 96 11/15/18 12:29 112/62 Intake and Output 11/15/18 11/16/18 11/16/18 22:59 06:59 14:59 Intake Total 240 240 Output Total 500 Balance -260 240 Intake: Oral 240 240 Output: Urine 500 Other: Voiding Method Urinal Urinal Urinal Diaper Diaper Diaper # Voids 2 1 Weight 98.6 kg Results - Lab Results Most recent lab results Calcium 9.0 mg/dL (8.4-10.2) 11/16/18 07:23 11/16/18 07:25 11/16/18 07:23 Assessment and Plan Plan: Assessment: 1. Acute kidney injury mostly prerenal secondary to intravascular volume depletion secondary to diuretics and poor oral intake. Creatinine was 4.04 on admission and is 3.18 today. UA is benign. Rule out urinary retention. 2. Chronic kidney disease stage III secondary to nephrosclerosis with baseline creatinine in the range of 1.8-2.2. 3. Severe mitral regurgitation status post mitral valve repair on 10/31/2018. 4. Hyperkalemia secondary to acute kidney injury and metabolic acidosis. 5. Insulin-dependent diabetes mellitus. 6. Anemia of chronic disease. Rule out iron deficiency. Plan: Low potassium diet. 10 units of IV insulin with an amp of D50 now. 2 A of sodium bicarbonate IV push. Add oral sodium bicarbonate. Check bladder scan to make sure no underlying urinary retention. Check renal ultrasound. Maintain normal saline at 75 mL an hour. Check potassium level at 3 PM. Avoid nephrotoxins. No urgent need for renal replacement therapy at this time. Check iron studies. Thank you for the consultation. I will continue to follow the patient with you during his hospital stay.
[2018-11-16 12:07] LABS: Glucose,Whole Blood 191 mg/dL (75-99)
[2018-11-16] MEDS ORDERED: DEXTROSE 10 % IN WATER 250 ML IV STA (12:12)
--- NOTE | 2018-11-16 13:00 | ECHOF ---
Referral Reason:Limited echo to rule out pericardial effusion MEASUREMENTS -------- HEIGHT: 167.6 cm WEIGHT: 98.4 kg BP: 110/63 RAP: 5.00 mmHg RVSP: 26.68 mmHg FINDINGS -------- Sinus rhythm. This was a technically adequate study. Limited Study Overall left ventricular systolic function is normal with, an EF between 60 - 65 %. Mild tricuspid regurgitation present. Right ventricular systolic pressure is normal at < 35 mmHg. There is a small pericardial effusion located near the left ventricle. CONCLUSIONS -------- 1. Sinus rhythm. 2. This was a technically adequate study. 3. Limited Study 4. Overall left ventricular systolic function is normal with, an EF between 60 - 65 %. 5. Mild tricuspid regurgitation present. 6. Right ventricular systolic pressure is normal at < 35 mmHg. 7. There is a small pericardial effusion located near the left ventricle. CUSTOMER SECURITY CLERK: Vivian Sims RDCS
[2018-11-16] MEDS: SODIUM BICARBONATE TAB 650 MG TAB PO SCH ×2 (13:33→21:34)
--- NOTE | 2018-11-16 13:37 | US ---
EXAMINATION TYPE: US kidneys/renal and bladder DATE OF EXAM: 11/16/2018 COMPARISON: NONE CLINICAL HISTORY: lissette. lissette, patient had open heart, sitting in recliner for exam EXAM MEASUREMENTS: Right Kidney: 9.1 x 4.7 x 7.1 cm Left Kidney: 10.0 x 4.2 x 5.1 cm Right Kidney: No hydronephrosis or masses seen Left Kidney: No hydronephrosis or masses seen Bladder: not distention There is no evidence for hydronephrosis at this point in time. No nephrolithiasis is seen. No mikhail s are identified. The urinary bladder is anechoic. Bilateral ureteral jets are seen. IMPRESSION: Negative study
--- NOTE | 2018-11-16 15:51 | P.PN ---
Subjective Progress Note Date: 11/16/18 Principal diagnosis: History of severe concentric mitral valve regurgitation with severely calcified mitral annulus status post complex mitral valve repair on 10/31/[address] Lozada, coronary artery disease with recent drug-eluting stent placed to the left anterior descending coronary artery in September 2018, chronic diastolic heart failure, hypertension, hyperlipidemia, type 2 diabetes mellitus with peripheral neuropathy and a preoperative hemoglobin A1c of 7%, chronic kidney disease with a baseline creatinine around 2, moderate chronic obstructive pulmonary disease with a preoperative FEV1 of 54% of predicted value, obstructive sleep apnea without home CPAP use, pulmonary hypertension, obesity, previous tobacco dependence and postoperative transaminitis and paroxysmal atrial fibrillation. The patient is sitting up to the bedside chair on the 3 S. cardiac stepdown unit. He is in no acute distress. The patient reports he feels somewhat improved today although states that his shortness of breath he feels is about the same as when he was admitted. He remains hemodynamically stable and is afebrile. Tolerating oral intake. 0.9% normal saline infusing at 75 mL an hour for gentle hydration. Laboratory results this morning showed a BUN of 153 and creatinine of 3.18 which is trending down. The patient underwent a limited 2-D echocardiogram today which showed an overall left ventricular systolic function to be normal with an ejection fraction between 60 and 65% with a small pericardial effusion located near the left ventricle. Objective - Vital Signs Vital signs: Vital Signs Temp 96.7 F L 11/16/18 14:21 Pulse 64 11/16/18 14:21 Resp 18 11/16/18 14:21 BP 136/67 11/16/18 14:21 Pulse Ox 93 L 11/16/18 15:36 Intake & Output 11/15/18 11/16/18 11/16/18 18:59 06:59 18:59 Intake Total 480 240 Output Total 500 Balance -20 240 Weight 93.44 kg 98.6 kg 98.6 kg Intake: Oral 480 240 Output: Urine 500 Other: Voiding Method Urinal Urinal Urinal Diaper Diaper Diaper # Voids 2 1 - Constitutional General appearance: Present: cooperative, morbidly obese, no acute distress - Respiratory Details: Lung sounds are clear to auscultation, diminished to his bilateral bases. Respirations are symmetrical and nonlabored. - Cardiovascular Details: Regular rhythm and rate. S1 and S2 present, negative for S3, gallop or murmur. +1 edema to his bilateral lower extremities. Knee-high GUERRERO hose and sequential compression devices in place to his bilateral lower extremities. Heart hugger is in place and he is demonstrating appropriate use. Sternum is stable. - Gastrointestinal Gastrointestinal Comment(s): Abdomen soft, nontender and nondistended. No guarding or rigidity. Active bowel sounds present all 4 abdominal quadrants. Bowel movement yesterday 11/15/2017. - Genitourinary Genitourinary Comment(s): Voiding clear shona urine. - Integumentary Integumentary Comment(s): Skin is warm and dry. No clubbing or cyanosis is present. Midline sternal incision is clean, dry and approximated. No drainage or redness is present. Dressing is clean, dry and intact. - Neurologic Neurologic Comment(s): No focal deficit. Neurologic: Present: CNII-XII intact - Musculoskeletal Musculoskeletal: Present: gait normal, generalized weakness, strength equal bilaterally - Psychiatric Psychiatric: Present: A&O x's 3, appropriate affect, intact judgment & insight - Allied health notes Allied health notes reviewed: nursing - Labs CBC & Chem 7: 11/16/18 07:25 11/16/18 14:37 Labs: Abnormal Lab Results - Last 24 Hours (Table) 11/15/18 11/15/18 11/16/18 Range/Units 16:43 20:10 06:55 RBC (4.30-5.90) m/uL Hgb (13.0-17.5) gm/dL Hct (39.0-53.0) % RDW (11.5-15.5) % Lymphocytes # (1.0-4.8) k/uL Potassium (3.5-5.1) mmol/L Chloride (98-107) mmol/L Carbon Dioxide (22-30) mmol/L BUN (9-20) mg/dL Creatinine (0.66-1.25) mg/dL Glucose (74-99) mg/dL POC Glucose (mg/dL) 213 H 242 H 180 H (75-99) mg/dL ALT (21-72) U/L Albumin (3.5-5.0) g/dL 11/16/18 11/16/18 11/16/18 Range/Units 07:23 07:25 12:01 RBC 2.59 L (4.30-5.90) m/uL Hgb 8.0 L (13.0-17.5) gm/dL Hct 24.2 L (39.0-53.0) % RDW 18.1 H (11.5-15.5) % Lymphocytes # 0.6 L (1.0-4.8) k/uL Potassium 6.0 H (3.5-5.1) mmol/L Chloride 109 H (98-107) mmol/L Carbon Dioxide 19 L (22-30) mmol/L BUN 153 H* (9-20) mg/dL Creatinine 3.18 H (0.66-1.25) mg/dL Glucose 168 H (74-99) mg/dL POC Glucose (mg/dL) 191 H (75-99) mg/dL ALT 141 H (21-72) U/L Albumin 3.4 L (3.5-5.0) g/dL 11/16/18 Range/Units 14:37 RBC (4.30-5.90) m/uL Hgb (13.0-17.5) gm/dL Hct (39.0-53.0) % RDW (11.5-15.5) % Lymphocytes # (1.0-4.8) k/uL Potassium 5.3 H (3.5-5.1) mmol/L Chloride (98-107) mmol/L Carbon Dioxide (22-30) mmol/L BUN (9-20) mg/dL Creatinine (0.66-1.25) mg/dL Glucose (74-99) mg/dL POC Glucose (mg/dL) (75-99) mg/dL ALT (21-72) U/L Albumin (3.5-5.0) g/dL - Imaging and Cardiology Chest x-ray: report reviewed, image reviewed US - abdomen: report reviewed 2-D echocardiogram results reviewed. Assessment and Plan Assessment: 1. Acute kidney injury with an admission creatinine of 4.04, BUN 163 2. Shortness of breath 3. History of severe eccentric mitral valve regurgitation, severely calcified mitral annulus, torn chordae to the P1 posterior leaflet, status post complex mitral valve repair on 10/31/2018 3. History of coronary artery disease with recent drug-eluting stent placed to his left anterior descending coronary artery on 09/24/2018 4. Chronic diastolic heart failure 5. Hypertension 6. Hyperlipidemia 7. Diabetes mellitus type 2, with peripheral neuropathy and a recent hemoglobin A1c of 7% 8. Chronic kidney disease stage III with a baseline creatinine of around 2 9. Moderate chronic obstructive pulmonary disease with a recent FEV1 54% of predicted value 10. Obstructive sleep apnea without home CPAP use 11. Pulmonary hypertension 12. Obesity 13. Osteoarthritis 14. History of tobacco dependence, previous pipe 15. History of paroxysmal atrial fibrillation 16. History of transaminitis Plan: 1. Continue to optimize with medical management, continue aspirin, Plavix, and beta sun. The patient will be started on a statin once his liver enzymes have normalized. 2. Avoid nephrotoxic agents. 3. We will order a limited 2-D echocardiogram to rule out pericardial effusion. 4. Increase activity as tolerated. PT/OT and cardiac rehab following patient. 5. BUN and creatinine management per nephrology recommendations. Dr. Teixeira's consult noted appreciated. 6. Encourage use of his incentive spirometry every hour while awake. 7. Continue to reinforce open heart discharge instructions. Shower daily, no lifting pushing and pulling anything greater than 10 pounds or jug of milk for 12 weeks. Continue to encourage use of his heart hugger. 8. workers compensation examiner has been consulted, anticipate need for inpatient or subacute rehab upon discharge. 9. GI and DVT prophylaxis. 10. More recommendations to follow based on patient's clinical course. Time with Patient: Greater than 30
[2018-11-16 17:05] LABS: Glucose,Whole Blood 143 mg/dL (75-99)
[2018-11-16 17:13] LABS: Iron Saturation 15.46 (15.00-50.00)
[2018-11-16] MEDS: SODIUM CHLORIDE 0.9% 1,000 ML IV SCH (17:37)
[2018-11-16 21:16] LABS: Glucose,Whole Blood 125 mg/dL (75-99)
[2018-11-16] MEDS: INSULIN DETEMIR (LEVEMIR) 100 UNIT/ML SYR SQ SCH (21:31)
[2018-11-17] MEDS: ACETAMINOPHEN TAB 500 MG TAB PO PRN ×2 (00:26→23:44)
[2018-11-17 06:21] LABS: Glucose,Whole Blood 153 mg/dL (75-99)
[2018-11-17] MEDS: INSULIN ASPART (NovoLOG) 100 UNIT/ML VIAL SQ SCH ×5 (06:58→21:50)
[2018-11-17 07:28] LABS: Calcium 9.1 mg/dL (8.4-10.2); Magnesium 2.6 mg/dL (1.6-2.3); Potassium 5.5 mmol/L (3.5-5.1)
[2018-11-17] MEDS ORDERED: INSULIN REGULAR 100 UNIT/ML VIAL IV ONE (09:11)
[2018-11-17] MEDS ORDERED: DEXTROSE 50% SYRINGE 50 ML IVP STA (09:11)
--- NOTE | 2018-11-17 09:13 | P.PN ---
Subjective Patient is seen in follow-up for acute kidney injury on chronic kidney disease. Patient has chronic kidney disease stage III. Baseline creatinine in the range of 1.8-2.2. Creatinine was 4.04 on admission and is down to 2.06 today. Potassium level is 5.5 today. Admits to good urine output. No vomiting or diarrhea. Vital signs are stable. General: The patient appeared well nourished and normally developed. HEENT: Head exam is unremarkable. Neck is without jugular venous distension. LUNGS: Lungs are clear to auscultation and percussion. Breath sounds decreased. HEART: Rate and Rhythm are regular. First and second heart sounds normal. No murmurs, rubs or gallops. ABDOMEN: Abdominal exam reveals normal bowel sounds. Non-tender and non- distended. No evidence of peritonitis. EXTREMITITES: No clubbing, cyanosis, or edema. Objective - Vital Signs Vital signs: Vital Signs Temp 97 F L 11/17/18 04:00 Pulse 60 11/17/18 04:00 Resp 16 11/17/18 04:00 BP 135/65 11/17/18 04:00 Pulse Ox 97 11/17/18 04:00 Intake & Output 11/16/18 11/17/18 11/17/18 18:59 06:59 18:59 Intake Total 240 260 Output Total 1325 400 Balance 240 -1325 -140 Weight 98.6 kg 96.6 kg Intake: Oral 240 260 Output: Urine 1325 400 Other: Voiding Method Urinal Diaper # Voids 1 # Bowel Movements 1 - Labs CBC & Chem 7: 11/16/18 07:25 11/17/18 05:56 Labs: Abnormal Lab Results - Last 24 Hours (Table) 11/15/18 11/16/18 11/16/18 Range/Units 12:10 12:01 14:37 Potassium 5.3 H (3.5-5.1) mmol/L Chloride (98-107) mmol/L BUN (9-20) mg/dL Creatinine (0.66-1.25) mg/dL Glucose (74-99) mg/dL POC Glucose (mg/dL) 191 H (75-99) mg/dL Magnesium (1.6-2.3) mg/dL Iron 47 L (65-175) ug/dL Ferritin 739.1 H (22.0-322.0) ng/mL 11/16/18 11/16/18 11/17/18 Range/Units 16:52 21:14 05:56 Potassium 5.5 H (3.5-5.1) mmol/L Chloride 111 H (98-107) mmol/L BUN 117 H* (9-20) mg/dL Creatinine 2.06 H (0.66-1.25) mg/dL Glucose 149 H (74-99) mg/dL POC Glucose (mg/dL) 143 H 125 H (75-99) mg/dL Magnesium 2.6 H (1.6-2.3) mg/dL Iron (65-175) ug/dL Ferritin (22.0-322.0) ng/mL 11/17/18 Range/Units 06:20 Potassium (3.5-5.1) mmol/L Chloride (98-107) mmol/L BUN (9-20) mg/dL Creatinine (0.66-1.25) mg/dL Glucose (74-99) mg/dL POC Glucose (mg/dL) 153 H (75-99) mg/dL Magnesium (1.6-2.3) mg/dL Iron (65-175) ug/dL Ferritin (22.0-322.0) ng/mL Assessment and Plan Plan: Assessment: 1. Acute kidney injury mostly prerenal secondary to intravascular volume depletion secondary to diuretics and poor oral intake. Creatinine was 4.04 on a dmission and is 2.06 today. UA is benign. No evidence of urinary retention. No evidence of hydronephrosis and kidney ultrasound. 2. Chronic kidney disease stage III secondary to nephrosclerosis with baseline creatinine in the range of 1.8-2.2. 3. Severe mitral regurgitation status post mitral valve repair on 10/31/2018. 4. Hyperkalemia secondary to acute kidney injury and metabolic acidosis. Improved with medical management. 5. Insulin-dependent diabetes mellitus. 6. Anemia of chronic disease. Iron deficiency noted. 7. Metabolic acidosis secondary to acute kidney injury. Maintained on oral sodium bicarbonate. Better. 8. History of coronary artery disease. Plan: Maintain normal saline at 75 mL an hour. Low potassium diet. 10 units of IV insulin with an amp of D50 now. Repeat electrolytes in the morning.
[2018-11-17] MEDS ORDERED: DEXTROSE 10 % IN WATER 250 ML IV ONE (09:14)
[2018-11-17] MEDS: CHOLECALCIFEROL 1,000 UNIT TAB PO SCH (09:22)
[2018-11-17] MEDS: SODIUM BICARBONATE TAB 650 MG TAB PO SCH ×2 (09:22→21:45)
[2018-11-17] MEDS: AMIODARONE 200 MG TAB PO SCH (09:22)
[2018-11-17] MEDS: ALBUTEROL NEBULIZED 2.5 MG/3 ML INHALATION PRN ×2 (09:22→13:52)
--- NOTE | 2018-11-17 09:22 | XR ---
EXAMINATION TYPE: XR chest 1V portable DATE OF EXAM: 11/17/2018 COMPARISON: 11/16/2018 INDICATION: Postoperative mitral valve repair TECHNIQUE: Single frontal view of the chest is obtained. FINDINGS: The heart size is moderately prominent. The pulmonary vasculature is normal. Left lower lobe infiltrate may be present. There is poor visualization left diaphragm. Sternotomy wir es are present from cardiac valve surgery. IMPRESSION: 1. There may be a developing left lower lobe infiltrate. Continued follow-up is recommended. 2. Moderate cardiomegaly.
[2018-11-17] MEDS: ASPIRIN 81 MG PO SCH (09:23)
[2018-11-17] MEDS: LACTOBACILLUS ACIDOPH & BULGAR 1 EACH PACKET PO SCH (09:23)
[2018-11-17] MEDS: FERROUS SULFATE 325 MG TAB PO SCH (09:23)
[2018-11-17] MEDS: CLOPIDOGREL 75 MG TAB PO SCH (09:23)
[2018-11-17] MEDS: METOPROLOL TARTRATE 50 MG TAB PO SCH ×2 (09:23→21:45)
[2018-11-17] MEDS: SODIUM CHLORIDE 0.9% 1,000 ML IV SCH ×2 (09:25→18:15)
--- NOTE | 2018-11-17 10:37 | P.PN ---
Subjective Progress Note Date: 11/17/18 Principal diagnosis: History of severe concentric mitral valve regurgitation with severely calcified mitral annulus status post complex mitral valve repair on 10/31/[address] Lozada, coronary artery disease with recent drug-eluting stent placed to the left anterior descending coronary artery in September 2018, chronic diastolic heart failure, hypertension, hyperlipidemia, type 2 diabetes mellitus with peripheral neuropathy and a preoperative hemoglobin A1c of 7%, chronic kidney disease with a baseline creatinine around 2, moderate chronic obstructive pulmonary disease with a preoperative FEV1 of 54% of predicted value, obstructive sleep apnea without home CPAP use, pulmonary hypertension, obesity, previous tobacco dependence and postoperative transaminitis and paroxysmal atrial fibrillation. The patient is sitting up to the bedside chair on the 3 S. cardiac stepdown unit. He is in no acute distress. The patient denies any complaints of pain although reports that he is having some episodes of shortness of breath with activity. He remains hemodynamically stable and is afebrile. Tolerating oral intake. 0.9% normal saline infusing at 75 mL an hour for gentle hydration. Laboratory results this morning showed a BUN of 117 and creatinine of 2.06 which is trending down. The patient underwent a limited 2-D ecyesterdayhich showed an overall left ventricular systolic function to be normal with an ejection fraction between 60 and 65% with a small pericardial effusion located near the left ventricle. the patient reports that he ambulated in the unit hallway yesterday 2-3 times with minimal assistance from nursing staff and physical therapy. Objective - Vital Signs Vital signs: Vital Signs Temp 97.6 F 11/17/18 08:00 Pulse 74 11/17/18 09:36 Resp 16 11/17/18 08:00 BP 133/60 11/17/18 08:00 Pulse Ox 95 11/17/18 09:23 Intake & Output 11/16/18 11/17/18 11/17/18 18:59 06:59 18:59 Intake Total 240 260 Output Total 1325 400 Balance 240 -1325 -140 Weight 98.6 kg 96.6 kg Intake: Oral 240 260 Output: Urine 1325 400 Other: Voiding Method Urinal Diaper # Voids 1 # Bowel Movements 1 - Constitutional General appearance: Present: cooperative, no acute distress, obese - Respiratory Details: Lung sounds with few scattered crackles to his bilateral bases. Respirations are symmetrical and nonlabored. Oxygen saturation is are 95% on 2 L nasal cannula. Achieving 750 mL on his incentive spirometry. - Cardiovascular Details: Regular rhythm and rate. S1 and S2 present, negative for S3, gallop or murmur. Sternum is stable. Heart hugger is in place and he is demonstrating appropriate use. Knee-high GUERRERO hose and sequential compression devices in place to his bilateral lower extremities. Remote telemetry showing normal sinus rhythm heart rate 63. +1 edema to his bilateral lower extremities. - Gastrointestinal Gastrointestinal Comment(s): Abdomen is soft, nontender and nondistended. Active bowel sounds present in all 4 abdominal quadrants. NO GUARDING OR RIGIDITY. NO ORGANOMEGALY. TOLERATING ORAL INTAKE. - Genitourinary Genitourinary Comment(s): Voiding clear yellow urine. - Integumentary Integumentary Comment(s): Skin is warm and dry. No clubbing or cyanosis is present. No rash or abnormal pigmentation is present. Midline sternal incision is clean, dry and approximated. No drainage or redness is present. - Neurologic Neurologic Comment(s): No focal deficits. Neurologic: Present: CNII-XII intact - Musculoskeletal Musculoskeletal: Present: gait normal, generalized weakness, strength equal bilaterally - Psychiatric Psychiatric: Present: A&O x's 3, appropriate affect, intact judgment & insight - Allied health notes Allied health notes reviewed: nursing - Labs CBC & Chem 7: 11/16/18 07:25 11/17/18 05:56 Labs: Abnormal Lab Results - Last 24 Hours (Table) 11/15/18 11/16/18 11/16/18 Range/Units 12:10 12:01 14:37 Potassium 5.3 H (3.5-5.1) mmol/L Chloride (98-107) mmol/L BUN (9-20) mg/dL Creatinine (0.66-1.25) mg/dL Glucose (74-99) mg/dL POC Glucose (mg/dL) 191 H (75-99) mg/dL Magnesium (1.6-2.3) mg/dL Iron 47 L (65-175) ug/dL Ferritin 739.1 H (22.0-322.0) ng/mL 11/16/18 11/16/18 11/17/18 Range/Units 16:52 21:14 05:56 Potassium 5.5 H (3.5-5.1) mmol/L Chloride 111 H (98-107) mmol/L BUN 117 H* (9-20) mg/dL Creatinine 2.06 H (0.66-1.25) mg/dL Glucose 149 H (74-99) mg/dL POC Glucose (mg/dL) 143 H 125 H (75-99) mg/dL Magnesium 2.6 H (1.6-2.3) mg/dL Iron (65-175) ug/dL Ferritin (22.0-322.0) ng/mL 11/17/18 Range/Units 06:20 Potassium (3.5-5.1) mmol/L Chloride (98-107) mmol/L BUN (9-20) mg/dL Creatinine (0.66-1.25) mg/dL Glucose (74-99) mg/dL POC Glucose (mg/dL) 153 H (75-99) mg/dL Magnesium (1.6-2.3) mg/dL Iron (65-175) ug/dL Ferritin (22.0-322.0) ng/mL - Imaging and Cardiology Chest x-ray: report reviewed, image reviewed Assessment and Plan Assessment: 1. Acute kidney injury with an admission creatinine of 4.04, BUN 163 2. Shortness of breath 3. History of severe eccentric mitral valve regurgitation, severely calcified mitral annulus, torn chordae to the P1 posterior leaflet, status post complex mitral valve repair on 10/31/2018 3. History of coronary artery disease with recent drug-eluting stent placed to his left anterior descending coronary artery on 09/24/2018 4. Chronic diastolic heart failure 5. Hypertension 6. Hyperlipidemia 7. Diabetes mellitus type 2, with peripheral neuropathy and a recent hemoglobin A1c of 7% 8. Chronic kidney disease stage III with a baseline creatinine of around 2 9. Moderate chronic obstructive pulmonary disease with a recent FEV1 54% of predicted value 10. Obstructive sleep apnea without home CPAP use 11. Pulmonary hypertension 12. Obesity 13. Osteoarthritis 14. History of tobacco dependence, previous pipe 15. History of paroxysmal atrial fibrillation 16. History of transaminitis Plan: 1. Continue to optimize with medical management, continue aspirin, Plavix, and beta sun. The patient will be started on a statin once his liver enzymes have normalized. 2. Avoid nephrotoxic agents. 3. Continue 0.9% normal saline at 75 mL per hour per nephrology's recommendations. 4. Increase activity as tolerated. PT/OT and cardiac rehab following. 5. BUN and creatinine management per nephrology recommendations. 6. Encourage use of his incentive spirometry every hour while awake. 7. Continue to reinforce open heart discharge instructions. Shower daily, no lifting pushing and pulling anything greater than 10 pounds or jug of milk for 12 weeks. Continue to encourage use of his heart hugger. 8. cardroom worker is following, anticipate need for inpatient or subacute rehab upon discharge. Dr. Martinez has been consulted for possible placement inpatient rehab. 9. GI and DVT prophylaxis. 10. More recommendations to follow based on patient's clinical course. Time with Patient: Greater than 30
[2018-11-17 11:39] LABS: Glucose,Whole Blood 336 mg/dL (75-99)
[2018-11-17 17:01] LABS: Glucose,Whole Blood 80 mg/dL (75-99)
[2018-11-17 21:03] LABS: Glucose,Whole Blood 145 mg/dL (75-99)
[2018-11-17] MEDS: INSULIN DETEMIR (LEVEMIR) 100 UNIT/ML SYR SQ SCH (21:46)
[2018-11-18] MEDS: SODIUM CHLORIDE 0.9% 1,000 ML IV SCH (04:38)
[2018-11-18 06:41] LABS: Anisocytosis Slight; HCT 27.3 % (39.0-53.0); HGB 8.4 gm/dL (13.0-17.5); Hypochromasia Marked; MCH 30.1 pg (25.0-35.0); MCHC 30.6 g/dL (31.0-37.0); MCV 98.3 fL (80.0-100.0); Macrocytosis Slight; Mean Platelet Volume 7.1; Platelet Count 329 k/uL (150-450); RBC 2.78 m/uL (4.30-5.90); RDW 17.5 % (11.5-15.5)
[2018-11-18] MEDS: INSULIN ASPART (NovoLOG) 100 UNIT/ML VIAL SQ SCH ×7 (06:46→21:48)
[2018-11-18 06:50] LABS: Glucose,Whole Blood 129 mg/dL (75-99)
--- NOTE | 2018-11-18 07:05 | XR ---
EXAMINATION TYPE: XR chest 1V portable DATE OF EXAM: 11/18/2018 CLINICAL HISTORY: Difficulty breathing progress study. TECHNIQUE: Single AP portable frontal view of the chest is obtained. COMPARISON: Chest x-ray from one day earlier FINDINGS: Overlying sternal wires and mediastinal clips with cardiac closure device are all redemons trated. There is persistent cardiomegaly. There is persistent retrocardiac opacity silhouetting left hemidiaphragm. Right lung remains clear. Osseous structures are intact. IMPRESSION: Overall stable findings, cardiomegaly with persistent left basilar acute infiltrate and/ or atelectasis are all redemonstrated.
[2018-11-18 07:15] LABS: Calcium 8.9 mg/dL (8.4-10.2); Magnesium 2.3 mg/dL (1.6-2.3); Potassium 5.6 mmol/L (3.5-5.1)
[2018-11-18] MEDS: ALBUTEROL NEBULIZED 2.5 MG/3 ML INHALATION PRN ×2 (07:52→15:05)
[2018-11-18] MEDS: AMIODARONE 200 MG TAB PO SCH (08:58)
[2018-11-18] MEDS: CHOLECALCIFEROL 1,000 UNIT TAB PO SCH (08:58)
[2018-11-18] MEDS: CLOPIDOGREL 75 MG TAB PO SCH (08:58)
[2018-11-18] MEDS: METOPROLOL TARTRATE 50 MG TAB PO SCH ×2 (08:58→21:48)
[2018-11-18] MEDS: SODIUM BICARBONATE TAB 650 MG TAB PO SCH ×2 (08:58→21:48)
[2018-11-18] MEDS: ASPIRIN 81 MG PO SCH (08:58)
[2018-11-18] MEDS: LACTOBACILLUS ACIDOPH & BULGAR 1 EACH PACKET PO SCH (08:58)
[2018-11-18] MEDS: FERROUS SULFATE 325 MG TAB PO SCH (08:58)
[2018-11-18] MEDS ORDERED: FUROSEMIDE 10 MG/ML 4 ML VIAL IV STA (09:56)
--- NOTE | 2018-11-18 10:30 | P.PN ---
Subjective Patient is seen in follow-up for acute kidney injury on chronic kidney disease. Patient has chronic kidney disease stage III with baseline creatinine in the range of 1.8-2.2. Creatinine was 4.04 on admission and is down to 1.68 today. Potassium level is 5.6 today. Admits to good urine output. No vomiting or diarrhea. Does have edema in lower extremities. Vital signs are stable. General: The patient appeared well nourished and normally developed. HEENT: Head exam is unremarkable. Neck is without jugular venous distension. LUNGS: Lungs are clear to auscultation and percussion. Breath sounds decreased. HEART: Rate and Rhythm are regular. First and second heart sounds normal. No murmurs, rubs or gallops. ABDOMEN: Abdominal exam reveals normal bowel sounds. Non-tender and non- distended. No evidence of peritonitis. EXTREMITITES: 1+ edema. Objective - Vital Signs Vital signs: Vital Signs Temp 98.1 F 11/18/18 08:00 Pulse 66 11/18/18 08:05 Resp 16 11/18/18 08:00 BP 132/62 11/18/18 08:00 Pulse Ox 98 11/18/18 08:00 Intake & Output 11/17/18 11/18/18 11/18/18 18:59 06:59 18:59 Intake Total 626 875 240 Output Total 1650 700 400 Balance -1024 175 -160 Weight 99.6 kg Intake: Intake, IV Titration 375 Amount Sodium Chloride 0.9% 1, 375 000 ml @ 75 mls/hr IV . [id number] JAIME Rx#:[id number] Oral 626 500 240 Output: Urine 1650 700 400 Other: # Bowel Movements 1 - Labs CBC & Chem 7: 11/18/18 06:10 11/18/18 06:10 Labs: Abnormal Lab Results - Last 24 Hours (Table) 11/17/18 11/17/18 11/18/18 Range/Units 11:37 21:02 06:10 RBC (4.30-5.90) m/uL Hgb (13.0-17.5) gm/dL Hct (39.0-53.0) % MCHC (31.0-37.0) g/dL RDW (11.5-15.5) % Potassium 5.6 H (3.5-5.1) mmol/L Chloride 112 H (98-107) mmol/L BUN 84 H (9-20) mg/dL Creatinine 1.68 H (0.66-1.25) mg/dL Glucose 120 H (74-99) mg/dL POC Glucose (mg/dL) 336 H 145 H (75-99) mg/dL AST 64 H (17-59) U/L ALT 99 H (21-72) U/L 11/18/18 11/18/18 Range/Units 06:10 06:45 RBC 2.78 L (4.30-5.90) m/uL Hgb 8.4 L (13.0-17.5) gm/dL Hct 27.3 L (39.0-53.0) % MCHC 30.6 L (31.0-37.0) g/dL RDW 17.5 H (11.5-15.5) % Potassium (3.5-5.1) mmol/L Chloride (98-107) mmol/L BUN (9-20) mg/dL Creatinine (0.66-1.25) mg/dL Glucose (74-99) mg/dL POC Glucose (mg/dL) 129 H (75-99) mg/dL AST (17-59) U/L ALT (21-72) U/L Assessment and Plan Plan: Assessment: 1. Acute kidney injury mostly prerenal secondary to intravascular volume depletion secondary to diuretics and poor oral intake. Creatinine was 4.04 on admission and is 1.68 today. UA is benign. No evidence of urinary retention. No evidence of hydronephrosis and kidney ultrasound. 2. Chronic kidney disease stage III secondary to nephrosclerosis with baseline creatinine in the range of 1.8-2.2. 3. Severe mitral regurgitation status post mitral valve repair on 10/31/2018. 4. Hyperkalemia secondary to acute kidney injury and metabolic acidosis. 5. Insulin-dependent diabetes mellitus. 6. Anemia of chronic disease. Iron deficiency noted. 7. Metabolic acidosis secondary to acute kidney injury. Maintained on oral sodium bicarbonate. Better. 8. History of coronary artery disease. 9. Lower extremity edema. Plan: Hep-Lock IV fluids. Lasix 40 mg IV once today. Low potassium diet. IV iron 3 doses. First dose today. Check potassium level this evening.
[2018-11-18] MEDS: SODIUM FERRIC GLUCONAT-SUCROSE 125 MG in SODIUM CHLORIDE 0.9% 100 ML IVPB SCH (11:00)
[2018-11-18 11:43] LABS: Glucose,Whole Blood 223 mg/dL (75-99)
[2018-11-18] MEDS: ACETAMINOPHEN TAB 500 MG TAB PO PRN ×2 (12:03→19:03)
--- NOTE | 2018-11-18 12:03 | P.PN ---
Subjective Progress Note Date: 11/16/18 Principal diagnosis: Acute kidney injury possible ATN Patient is a pleasant 73-year-old male had a recent mitral 1 repair of the seventh on October 31 does have chronic diastolic dysfunction was on Lasix at home and chronic kidney disease stage IV with baseline creatinine around 2.5. Patient had lab work up done as an outpatient which showed highly elevated BUN/creatinine creatinine going up to 4.500 and be in up to 1 ET patient has some symptoms of shortness of breath since his discharge which is exertional without any cough or sputum production patient doesn't have leukocytosis no fever no other symptoms. His Rezulin being admitted for acute renal failure. Patient was started on IV fluids. Nephrology will be canceled it. 11/16/2018 Patient currently denied any complaints of chest pain or worsening shortness of breath. Patient is able to sit in a chair comfortably. Tolerating oral diet. Laboratory data showed BUN 153 and creatinine 3.18 which is trending down. 2-D echo cardiac exam showed normal ejection fraction at 60-60% with small pericardial effusion located near the left ventricle. Nephrology has seen the patient. No intervention for renal replacement therapy needed this time. Patient has been afebrile. Current medications reviewed. Objective - Vital Signs Vital signs: Vital Signs Temp 97.5 F L 11/16/18 08:05 Pulse 65 11/16/18 11:20 Resp 16 11/16/18 11:20 BP 110/57 11/16/18 11:20 Pulse Ox 97 11/16/18 11:20 Intake & Output 11/15/18 11/16/18 11/16/18 18:59 06:59 18:59 Intake Total 480 240 Output Total 500 Balance -20 240 Weight 93.44 kg 98.6 kg Intake: Oral 480 240 Output: Urine 500 Other: Voiding Method Urinal Urinal Urinal Diaper Diaper Diaper # Voids 2 1 - Exam PHYSICAL EXAMINATION: GENERAL: The patient is alert and oriented x3, not in any acute distress. Well developed, well nourished. HEENT: Pupils are round and equally reacting to light. EOMI. No scleral icterus. No conjunctival pallor. Normocephalic, atraumatic. No pharyngeal erythema. No thyromegaly. CARDIOVASCULAR: S1 and S2 present. No murmurs, rubs, or gallops. PULMONARY: Chest is clear to auscultation, no wheezing or crackles. ABDOMEN: Soft, nontender, nondistended, normoactive bowel sounds. No palpable organomegaly. MUSCULOSKELETAL: No joint swelling or deformity. EXTREMITIES: No cyanosis, clubbing, pedal edema. NEUROLOGICAL: Gross neurological examination did not reveal any focal deficits. SKIN: No rashes. - Labs CBC & Chem 7: 11/18/18 06:10 11/18/18 06:10 Labs: Abnormal Lab Results - Last 24 Hours (Table) 11/15/18 11/15/18 11/16/18 Range/Units 16:43 20:10 06:55 RBC (4.30-5.90) m/uL Hgb (13.0-17.5) gm/dL Hct (39.0-53.0) % RDW (11.5-15.5) % Lymphocytes # (1.0-4.8) k/uL Potassium (3.5-5.1) mmol/L Chloride (98-107) mmol/L Carbon Dioxide (22-30) mmol/L BUN (9-20) mg/dL Creatinine (0.66-1.25) mg/dL Glucose (74-99) mg/dL POC Glucose (mg/dL) 213 H 242 H 180 H (75-99) mg/dL ALT (21-72) U/L Albumin (3.5-5.0) g/dL 11/16/18 11/16/18 11/16/18 Range/Units 07:23 07:25 12:01 RBC 2.59 L (4.30-5.90) m/uL Hgb 8.0 L (13.0-17.5) gm/dL Hct 24.2 L (39.0-53.0) % RDW 18.1 H (11.5-15.5) % Lymphocytes # 0.6 L (1.0-4.8) k/uL Potassium 6.0 H (3.5-5.1) mmol/L Chloride 109 H (98-107) mmol/L Carbon Dioxide 19 L (22-30) mmol/L BUN 153 H* (9-20) mg/dL Creatinine 3.18 H (0.66-1.25) mg/dL Glucose 168 H (74-99) mg/dL POC Glucose (mg/dL) 191 H (75-99) mg/dL ALT 141 H (21-72) U/L Albumin 3.4 L (3.5-5.0) g/dL Assessment and Plan Assessment: -Acute renal failure: Possible ATN. Probably due to excessive diuretic therapy which will be held and patient was started on IV fluids. Nephrology is following. -Shortness of breath and secondary to mild left-sided pleural effusion and atelectasis no evidence of and pneumonia clinically will not require any antibiotics. Left-sided effusion is probably postoperative changes from his recent carotid thoracic surgery -, Mitral valve regurgitation with recent mitral valve repair. -Carotid disease with recent stent placement LAD and patient is a 9 dual antiplatelet therapy which will be continued -Type 2 diabetes mellitus patient will be resumed on her his home regimen and the titrate insulin 8 depending on his blood sugars -Diabetic peripheral neuropathy -Obesity -Obstructive sleep apnea uses CPAP machine -Pulmonary hypertension -Hypertension: Patient is presently hypotensive -Hyperlipidemia -Chronic kidney disease stage IV baseline creatinine around 2.2. Secondary to diabetic nephropathy Time with Patient: Greater than 30
--- NOTE | 2018-11-18 12:05 | P.PN ---
Subjective Progress Note Date: 11/17/18 Principal diagnosis: Acute kidney injury possible ATN Patient is a pleasant 73-year-old male had a recent mitral 1 repair of the seventh on October 31 does have chronic diastolic dysfunction was on Lasix at home and chronic kidney disease stage IV with baseline creatinine around 2.5. Patient had lab work up done as an outpatient which showed highly elevated BUN/creatinine creatinine going up to 4.500 and be in up to 1 ET patient has some symptoms of shortness of breath since his discharge which is exertional without any cough or sputum production patient doesn't have leukocytosis no fever no other symptoms. His Rezulin being admitted for acute renal failure. Patient was started on IV fluids. Nephrology will be canceled it. 11/16/2018 Patient currently denied any complaints of chest pain or worsening shortness of breath. Patient is able to sit in a chair comfortably. Tolerating oral diet. Laboratory data showed BUN 153 and creatinine 3.18 which is trending down. 2-D echo cardiac exam showed normal ejection fraction at 60-60% with small pericardial effusion located near the left ventricle. Nephrology has seen the patient. No intervention for renal replacement therapy needed this time. Patient has been afebrile. 11/17/2018 Patient is currently sitting in a chair comfortably. No complaints of chest pain or shortness of breath. No nausea vomiting or abdominal pain. Tolerating oral diet. Creatinine level improved to 2.06 from 4.04 on admission. Potassium 5.5 today. Denied any complains of nausea vomiting or diarrhea. Patient will be continued on PT OT. Nephrology and CT surgery is on board. Current medications reviewed. Objective - Vital Signs Vital signs: Vital Signs Temp 98.4 F 11/17/18 12:00 Pulse 58 L 11/17/18 12:00 Resp 18 11/17/18 12:00 BP 129/63 11/17/18 12:00 Pulse Ox 96 11/17/18 12:00 Intake & Output 11/16/18 11/17/18 11/17/18 18:59 06:59 18:59 Intake Total 240 260 Output Total 1325 400 Balance 240 -1325 -140 Weight 98.6 kg 96.6 kg Intake: Oral 240 260 Output: Urine 1325 400 Other: Voiding Method Urinal Diaper # Voids 1 # Bowel Movements 1 - Exam PHYSICAL EXAMINATION: GENERAL: The patient is alert and oriented x3, not in any acute distress. Well developed, well nourished. HEENT: Pupils are round and equally reacting to light. EOMI. No scleral icterus. No conjunctival pallor. Normocephalic, atraumatic. No pharyngeal erythema. No thyromegaly. CARDIOVASCULAR: S1 and S2 present. No murmurs, rubs, or gallops. PULMONARY: Chest is clear to auscultation, no wheezing or crackles. ABDOMEN: Soft, nontender, nondistended, normoactive bowel sounds. No palpable organomegaly. MUSCULOSKELETAL: No joint swelling or deformity. EXTREMITIES: No cyanosis, clubbing, pedal edema. NEUROLOGICAL: Gross neurological examination did not reveal any focal deficits. SKIN: No rashes. - Labs CBC & Chem 7: 11/18/18 06:10 11/18/18 06:10 Labs: Abnormal Lab Results - Last 24 Hours (Table) 11/15/18 11/16/18 11/16/18 Range/Units 12:10 14:37 16:52 Potassium 5.3 H (3.5-5.1) mmol/L Chloride (98-107) mmol/L BUN (9-20) mg/dL Creatinine (0.66-1.25) mg/dL Glucose (74-99) mg/dL POC Glucose (mg/dL) 143 H (75-99) mg/dL Magnesium (1.6-2.3) mg/dL Iron 47 L (65-175) ug/dL Ferritin 739.1 H (22.0-322.0) ng/mL 11/16/18 11/17/18 11/17/18 Range/Units 21:14 05:56 06:20 Potassium 5.5 H (3.5-5.1) mmol/L Chloride 111 H (98-107) mmol/L BUN 117 H* (9-20) mg/dL Creatinine 2.06 H (0.66-1.25) mg/dL Glucose 149 H (74-99) mg/dL POC Glucose (mg/dL) 125 H 153 H (75-99) mg/dL Magnesium 2.6 H (1.6-2.3) mg/dL Iron (65-175) ug/dL Ferritin (22.0-322.0) ng/mL 11/17/18 Range/Units 11:37 Potassium (3.5-5.1) mmol/L Chloride (98-107) mmol/L BUN (9-20) mg/dL Creatinine (0.66-1.25) mg/dL Glucose (74-99) mg/dL POC Glucose (mg/dL) 336 H (75-99) mg/dL Magnesium (1.6-2.3) mg/dL Iron (65-175) ug/dL Ferritin (22.0-322.0) ng/mL Assessment and Plan Assessment: -Acute renal failure: Probably due to excessive diuretic therapy which will be held and patient was started on IV fluids and consult neurology. We'll also obtain urine and exudative urine random creatinine. -Shortness of breath and secondary to mild left-sided pleural effusion and atelectasis no evidence of and pneumonia clinically will not require any antibiotics. Left-sided effusion is probably postoperative changes from his recent carotid thoracic surgery -, Mitral valve regurgitation with recent mitral valve. -Carotid disease with recent stent placement LAD and patient is a 9 dual antiplatelet therapy which will be continued -Type 2 diabetes mellitus patient will be resumed on her his home regimen and the titrate insulin 8 depending on his blood sugars -Diabetic peripheral neuropathy -Obesity -Obstructive sleep apnea uses CPAP machine -Pulmonary hypertension -Hypertension: Patient is presently hypotensive -Hyperlipidemia -Chronic kidney disease stage IV baseline creatinine around 2.2. Secondary to diabetic nephropathy 1. Acute kidney injury mostly prerenal secondary to intravascular volume depletion secondary to diuretics and poor oral intake. Creatinine was 4.04 on admission and is 2.06 today. UA is benign. No evidence of urinary retention. No evidence of hydronephrosis and kidney ultrasound. 2. Chronic kidney disease stage III secondary to nephrosclerosis with baseline creatinine in the range of 1.8-2.2. 3. Severe mitral regurgitation status post mitral valve repair on 10/31/2018. 4. Hyperkalemia secondary to acute kidney injury and metabolic acidosis. Improved with medical management. 5. Insulin-dependent diabetes mellitus. 6. Anemia of chronic disease. Iron deficiency noted. 7. Metabolic acidosis secondary to acute kidney injury. Maintained on oral sodium bicarbonate. Better. 8. History of coronary artery disease. Plan: Maintain normal saline at 75 mL an hour. Low potassium diet. 10 units of IV insulin with an amp of D50 now. Repeat electrolytes in the morning. Time with Patient: Greater than 30
--- NOTE | 2018-11-18 12:29 | P.PN ---
Subjective Progress Note Date: 11/18/18 Principal diagnosis: History of severe concentric mitral valve regurgitation with severely calcified mitral annulus status post complex mitral valve repair on 10/31/[address] Lozada, coronary artery disease with recent drug-eluting stent placed to the left anterior descending coronary artery in September 2018, chronic diastolic heart failure, hypertension, hyperlipidemia, type 2 diabetes mellitus with peripheral neuropathy and a preoperative hemoglobin A1c of 7%, chronic kidney disease with a baseline creatinine around 2, moderate chronic obstructive pulmonary disease with a preoperative FEV1 of 54% of predicted value, obstructive sleep apnea without home CPAP use, pulmonary hypertension, obesity, previous tobacco dependence and postoperative transaminitis and paroxysmal atrial fibrillation. The patient is sitting up to the bedside chair on the 3 S. cardiac stepdown unit. He is in no acute distress. The patient denies any complaints of pain or shortness of breath. He reports that he feels much better today and feels like he is ambulating father in the hallway when walking. 0.9% normal saline infusing at 75 mL an hour for gentle hydration infusing. Laboratory results this morning showed a BUN of 84 and creatinine of 1.68 which continues to down. Oxygen saturation is 98% on room air and he is achieving 1000 mL on his incentive spirometry. Objective - Vital Signs Vital signs: Vital Signs Temp 98.1 F 11/18/18 11:07 Pulse 60 11/18/18 11:07 Resp 16 11/18/18 11:07 BP 140/67 11/18/18 11:07 Pulse Ox 98 11/18/18 11:07 Intake & Output 11/17/18 11/18/18 11/18/18 18:59 06:59 18:59 Intake Total 626 875 240 Output Total 1650 700 400 Balance -1024 175 -160 Weight 99.6 kg Intake: Intake, IV Titration 375 Amount Sodium Chloride 0.9% 1, 375 000 ml @ 75 mls/hr IV . [id number] JAIME Rx#:[id number] Oral 626 500 240 Output: Urine 1650 700 400 Other: # Bowel Movements 1 - Constitutional General appearance: Present: cooperative, no acute distress, obese - Respiratory Details: Lungs sounds essentially clear throughout, diminished bilateral bases. Respirations are symmetrical and nonlabored. Oxygen saturation 98% on room air. Achieving 1000 mL on his incentive spirometry. - Cardiovascular Details: Regular rhythm and rate. S1 and S2 present, negative for S3, gallop or murmur. Remote telemetry showing normal sinus rhythm heart rate 66. Heart hugger is in place and he is demonstrating appropriate use. Knee-high GUERRERO hose and sequential compression devices in place to his bilateral lower extremities. - Gastrointestinal Gastrointestinal Comment(s): Abdomen is soft, nontender and nondistended. Active bowel sounds present also abdominal quadrants. No guarding or rigidity. No organomegaly. - Genitourinary Genitourinary Comment(s): Voiding clear shona urine. - Integumentary Integumentary Comment(s): Skin is warm and dry. No clubbing or cyanosis is present. No rash or abnormal pigmentation is present. Midline sternal incision is clean, dry and approximated. No drainage or redness is present. Gauze dressing is clean, dry and intact. - Neurologic Neurologic: Present: CNII-XII intact - Musculoskeletal Musculoskeletal: Present: gait normal, generalized weakness, strength equal bilaterally - Psychiatric Psychiatric: Present: A&O x's 3, appropriate affect, intact judgment & insight - Allied health notes Allied health notes reviewed: nursing - Labs CBC & Chem 7: 11/18/18 06:10 11/18/18 06:10 Labs: Abnormal Lab Results - Last 24 Hours (Table) 11/17/18 11/18/18 11/18/18 Range/Units 21:02 06:10 06:10 RBC 2.78 L (4.30-5.90) m/uL Hgb 8.4 L (13.0-17.5) gm/dL Hct 27.3 L (39.0-53.0) % MCHC 30.6 L (31.0-37.0) g/dL RDW 17.5 H (11.5-15.5) % Potassium 5.6 H (3.5-5.1) mmol/L Chloride 112 H (98-107) mmol/L BUN 84 H (9-20) mg/dL Creatinine 1.68 H (0.66-1.25) mg/dL Glucose 120 H (74-99) mg/dL POC Glucose (mg/dL) 145 H (75-99) mg/dL AST 64 H (17-59) U/L ALT 99 H (21-72) U/L 11/18/18 11/18/18 Range/Units 06:45 11:41 RBC (4.30-5.90) m/uL Hgb (13.0-17.5) gm/dL Hct (39.0-53.0) % MCHC (31.0-37.0) g/dL RDW (11.5-15.5) % Potassium (3.5-5.1) mmol/L Chloride (98-107) mmol/L BUN (9-20) mg/dL Creatinine (0.66-1.25) mg/dL Glucose (74-99) mg/dL POC Glucose (mg/dL) 129 H 223 H (75-99) mg/dL AST (17-59) U/L ALT (21-72) U/L - Imaging and Cardiology Chest x-ray: report reviewed, image reviewed Assessment and Plan Assessment: 1. Acute kidney injury with an admission creatinine of 4.04, BUN 163 2. Shortness of breath 3. History of severe eccentric mitral valve regurgitation, severely calcified mitral annulus, torn chordae to the P1 posterior leaflet, status post complex mitral valve repair on 10/31/2018 3. History of coronary artery disease with recent drug-eluting stent placed to his left anterior descending coronary artery on 09/24/2018 4. Chronic diastolic heart failure 5. Hypertension 6. Hyperlipidemia 7. Diabetes mellitus type 2, with peripheral neuropathy and a recent hemoglobin A1c of 7% 8. Chronic kidney disease stage III with a baseline creatinine of around 2 9. Moderate chronic obstructive pulmonary disease with a recent FEV1 54% of predicted value 10. Obstructive sleep apnea without home CPAP use 11. Pulmonary hypertension 12. Obesity 13. Osteoarthritis 14. History of tobacco dependence, previous pipe 15. History of paroxysmal atrial fibrillation 16. History of transaminitis Plan: 1. Continue to optimize with medical management, continue aspirin, Plavix, and beta sun. The patient will be started on a statin once his liver enzymes have normalized. 2. Avoid nephrotoxic agents. 3. Discontinue 0.9% normal saline per nephrology's recommendations. 4. Increase activity as tolerated. PT/OT and cardiac rehab following. 5. BUN and creatinine management per nephrology recommendations. 6. Encourage use of his incentive spirometry every hour while awake. 7. Continue to reinforce open heart discharge instructions. Shower daily, no lifting pushing and pulling anything greater than 10 pounds or jug of milk for 12 weeks. Continue to encourage use of his heart hugger. 8. tie up worker is following, anticipate need for inpatient or subacute rehab upon discharge. Dr. Martinez has been consulted for possible placement inpatient rehab. 9. GI and DVT prophylaxis. 10. Lasix 40 mg IV 1 now. 11. More recommendations to follow based on patient's clinical course. Time with Patient: Greater than 30
[2018-11-18 17:01] LABS: Glucose,Whole Blood 162 mg/dL (75-99)
[2018-11-18] MEDS ORDERED: INSULIN REGULAR 100 UNIT/ML VIAL IV ONE (19:32)
[2018-11-18] MEDS ORDERED: DEXTROSE 50% SYRINGE 50 ML IVP STA (19:32)
[2018-11-18] MEDS ORDERED: DEXTROSE 10 % IN WATER 250 ML IV ONE (19:39)
[2018-11-18 20:48] LABS: Glucose,Whole Blood 194 mg/dL (75-99)
[2018-11-18] MEDS: INSULIN DETEMIR (LEVEMIR) 100 UNIT/ML SYR SQ SCH (21:47)
[2018-11-19 02:12] LABS: Glucose,Whole Blood 98 mg/dL (75-99)
[2018-11-19 06:39] LABS: Glucose,Whole Blood 133 mg/dL (75-99)
--- NOTE | 2018-11-19 06:43 | P.CONS ---
History of Present Illness - Chief Complaint Cardiac debility - History of Present Illness I had the opportunity to see patient for inpatient rehab consultation with regard to cardiac debility. He is known to me from recent stay, MVR. Admitted this time November 15 with acute on chronic renal failure for which is seen by Dr. Teixeira. Chest x-rays followed note cardiomegaly and left base atelectasis. PT reports minimal assistance for transfers and gait 104 feet. OT reports minimal assistance for upper dressing, maximal assistance for lower dressing, bathing, toileting and two-person assistance functional mobility and transfers. Previous functional history as elicited from patient: 73-year-old right-handed white male who is [facility] to floor home with . Retired. Describes independent manner share the cooking, laundry, driving. Patient has been with standing shower and gait without device. Dr. Patel his regular doctor. Denies tobacco or alcohol. Review of Systems Review of systems: ENT: Denies sneezes or discharge. Eyes: Denies discharge or photophobia. Cardiac: Denies chest pain or palpitation. Pulmonary: Mild shortness of breath. Gastrointestinal: Denies nausea, emesis, constipation, diarrhea. Genitourinary: Denies discharge or frequency. Musculoskeletal: Denies muscle or bone aches. Neurologic: At least mild generalized weakness. Endocrine: Denies shakes or sweats. Oncology: Denies cancers. Dermatologic: Denies rash, itching, pruritus. ALLERGY/immunology: Denies sneezes, rashes. Past Medical History Past Medical History: Atrial Fibrillation, Coronary Artery Disease (CAD), Heart Failure (S nice lady), COPD, Diabetes Mellitus, Eye Disorder, Hyperlipidemia, Hypertension, Osteoarthritis (OA), Renal Disease, Sleep Apnea/CPAP/BIPAP Additional Past Medical History / Comment(s): SOB w/exertion,CATARACTS, sleep apnea without home CPAP use History of Any Multi-Drug Resistant Organisms: None Reported Past Surgical History: Adenoidectomy, Heart Catheterization, Heart Catheterization With Stent, Tonsillectomy Additional Past Surgical History / Comment(s): FAUSTINO,COLONOSCOPY, heart cath 09/11/18, heart catheterization 09/24/2018 with drug-eluting stent placed to the LAD mitral valve repair on 10/31/2018. Past Anesthesia/Blood Transfusion Reactions: No Reported Reaction Additional Past Anesthesia/Blood Transfusion Reaction / Comm: no hx blood tr ansfusion Date of Last Stent Placement:: September 2018 Past Psychological History: No Psychological Hx Reported Smoking Status: Former smoker Past Alcohol Use History: Rare Past Drug Use History: None Reported - Past Family History Father Family Medical History: Cancer, Diabetes Mellitus Additional Family Medical History / Comment(s): BLADDER CANCER Mother Family Medical History: Congestive Heart Failure (CHF) Additional Family Medical History / Comment(s): AT AGE 68 Medications and Allergies Home Medications Medication Instructions Recorded Confirmed Type Cholecalciferol [Vitamin D3 (25 2,000 unit PO DAILY 01/04/16 11/15/18 History Mcg = 1000 Iu)] Ferrous Sulfate [Iron (65 MG 325 mg PO DAILY 01/04/16 11/15/18 History Elemental)] L.acidoph,Paracasei, B.lactis 1 cap PO DAILY 01/04/16 11/15/18 History [Probiotic] Multivitamins, Thera [Multivitamin 1 tab PO DAILY 01/09/17 11/15/18 History (formulary)] Zinc 50 mg PO DAILY 07/17/18 11/15/18 History Acetaminophen Tab [Tylenol Tab] 1,000 mg PO Q6HR #120 tablet 11/11/18 11/15/18 Rx Albuterol Inhaler [Ventolin Hfa 1 - 2 puff INHALATION RT-Q6H PRN 11/11/18 11/15/18 Rx Inhaler] #1 inhaler Amiodarone [Cordarone] 200 mg PO DAILY #15 tab 11/11/18 11/15/18 Rx Aspirin 325 mg PO DAILY #30 tab 11/11/18 11/15/18 Rx Clopidogrel [Plavix] 75 mg PO DAILY #30 tablet 11/11/18 11/15/18 Rx Furosemide [Lasix] 40 mg PO DAILY #30 tab 11/11/18 11/15/18 Rx Insulin Detemir [Levemir Flextouch] 10 units SQ HS 30 Days #3 pen 11/11/18 11/15/18 Rx Insulin Lispro [humaLOG Kwikpen] 10 unit SQ AC-TID 30 Days #3 11/11/18 11/15/18 Rx insuln.pen Metoprolol Tartrate [Lopressor] 50 mg PO BID #60 tab 11/11/18 11/15/18 Rx Pantoprazole Sodium [Protonix] 40 mg PO DAILY #30 tablet. 11/11/18 11/15/18 Rx Sennosides-Docusate Sodium 2 tab PO HS PRN #14 tablet 11/11/18 11/15/18 Rx [Senokot-S] Allergies Allergy/AdvReac Type Severity Reaction Status Date / Time No Known Allergies Allergy Verified 11/15/18 11:05 Physical Exam Vitals: Vital Signs Temp Pulse Pulse Resp BP Pulse Ox 11/18/18 20:00 98.5 F 63 19 145/68 95 11/18/18 16:00 97.8 F 94 18 130/64 96 11/18/18 15:18 65 11/18/18 15:05 60 11/18/18 11:07 98.1 F 60 16 140/67 98 11/18/18 08:05 66 11/18/18 08:00 98.1 F 70 16 132/62 98 11/18/18 07:52 62 94 L Intake and Output 11/18/18 11/18/18 11/19/18 14:59 22:59 06:59 Intake Total 240 260 Output Total 400 200 250 Balance -160 60 -250 Intake: Oral 240 260 Output: Urine 400 200 250 Other: Voiding Method Urinal Diaper # Voids 1 # Bowel Movements 1 Weight 100.2 kg Skin: Good color, texture, turgor. General: Overweight build and comfortable appearance. Head: Normocephalic, atraumatic. Eyes: Symmetric. Pupils equal round. Ears: Symmetric. Hearing within normal limits. Mouth: Clear. Neck: Supple. Carotid without bruit. Cardiac: Regular rate and rhythm. Lungs: Clear anteriorly and posteriorly. Abdomen: Soft active nontender, overweight. Extremities: Normal tone. Neurological: Mental status: Alert, cooperative, pleasant. Cranial nerves: Symmetric facial tone and trapezius. Motor: Normal strength and isolation all 4 limbs. Sensation: Intact throughout. DTRs: Symmetric and equal throughout. Mobility: Sits with physical assistance. Results CBC & Chem 7: 11/18/18 06:10 11/18/18 15:57 Labs: Abnormal Lab Results - Last 24 Hours (Table) 11/18/18 11/18/18 11/18/18 Range/Units 06:10 06:10 06:45 RBC 2.78 L (4.30-5.90) m/uL Hgb 8.4 L (13.0-17.5) gm/dL Hct 27.3 L (39.0-53.0) % MCHC 30.6 L (31.0-37.0) g/dL RDW 17.5 H (11.5-15.5) % Potassium 5.6 H (3.5-5.1) mmol/L Chloride 112 H (98-107) mmol/L BUN 84 H (9-20) mg/dL Creatinine 1.68 H (0.66-1.25) mg/dL Glucose 120 H (74-99) mg/dL POC Glucose (mg/dL) 129 H (75-99) mg/dL AST 64 H (17-59) U/L ALT 99 H (21-72) U/L 11/18/18 11/18/18 11/18/18 Range/Units 11:41 15:57 17:00 RBC (4.30-5.90) m/uL Hgb (13.0-17.5) gm/dL Hct (39.0-53.0) % MCHC (31.0-37.0) g/dL RDW (11.5-15.5) % Potassium 5.6 H (3.5-5.1) mmol/L Chloride (98-107) mmol/L BUN (9-20) mg/dL Creatinine (0.66-1.25) mg/dL Glucose (74-99) mg/dL POC Glucose (mg/dL) 223 H 162 H (75-99) mg/dL AST (17-59) U/L ALT (21-72) U/L 11/18/18 Range/Units 20:42 RBC (4.30-5.90) m/uL Hgb (13.0-17.5) gm/dL Hct (39.0-53.0) % MCHC (31.0-37.0) g/dL RDW (11.5-15.5) % Potassium (3.5-5.1) mmol/L Chloride (98-107) mmol/L BUN (9-20) mg/dL Creatinine (0.66-1.25) mg/dL Glucose (74-99) mg/dL POC Glucose (mg/dL) 194 H (75-99) mg/dL AST (17-59) U/L ALT (21-72) U/L Assessment and Plan (1) MIGUEL ANGEL (acute kidney injury) Current Visit: Yes Status: Acute Code(s): N17.9 - ACUTE KIDNEY FAILURE, UNSPECIFIED SNOMED Code(s): 03748064 (2) Diastolic CHF, acute on chronic Current Visit: No Status: Acute Code(s): I50.33 - ACUTE ON CHRONIC DIASTOLIC (CONGESTIVE) HEART FAILURE SNOMED Code(s): 757613481 Plan: Impression: 1. Medical debility. 2. Acute on chronic renal failure. 3. Acute on chronic CHF. 4. Recent MVR, postoperative phase. 5. Overweight. 6. Diabetes. 7. Hypertension. 8. Sleep apnea. 9. Coronary disease. 10. Active fibrillation. Comments and plan: PT and OT are ongoing. Safety concerns noted. We'll review my notes for recent referral. Have again discussed possible inpatient rehab.
[2018-11-19] MEDS: ACETAMINOPHEN TAB 500 MG TAB PO PRN ×2 (06:57→21:21)
[2018-11-19] MEDS: INSULIN ASPART (NovoLOG) 100 UNIT/ML VIAL SQ SCH ×7 (06:58→21:09)
[2018-11-19 07:35] LABS: Anisocytosis Slight; HCT 29.6 % (39.0-53.0); HGB 8.9 gm/dL (13.0-17.5); Hypochromasia Marked; MCHC 29.9 g/dL (31.0-37.0); MCV 100.3 fL (80.0-100.0); Macrocytosis Slight; Platelet Count 354 k/uL (150-450); RBC 2.95 m/uL (4.30-5.90); RDW 16.9 % (11.5-15.5); WBC 7.4 k/uL (3.8-10.6)
[2018-11-19 07:37] LABS: Calcium 9.5 mg/dL (8.4-10.2); Potassium 5.5 mmol/L (3.5-5.1)
--- NOTE | 2018-11-19 08:21 | XR ---
EXAMINATION TYPE: XR chest 2V DATE OF EXAM: 11/19/2018 COMPARISON: 11/18/2018 HISTORY: Postop mitral valve repair TECHNIQUE: Two-view chest FINDINGS: Heart size is moderately prominent, stable. Pulmonary vasculature is normal. A left lower l obe infiltrate is resolving. Small left pleural effusion may remain present. Sternotomy wires are pre sent from prior cardiac valve surgery. IMPRESSION: 1. Moderate cardiomegaly. 2. Resolving left lower lobe infiltrate. 3. Small residual left pleural effusion.
[2018-11-19] MEDS: ASPIRIN 81 MG PO SCH (08:31)
[2018-11-19] MEDS: CHOLECALCIFEROL 1,000 UNIT TAB PO SCH (08:31)
[2018-11-19] MEDS: AMIODARONE 200 MG TAB PO SCH (08:32)
[2018-11-19] MEDS: CLOPIDOGREL 75 MG TAB PO SCH (08:32)
[2018-11-19] MEDS: SODIUM BICARBONATE TAB 650 MG TAB PO SCH ×2 (08:32→21:21)
[2018-11-19] MEDS: LACTOBACILLUS ACIDOPH & BULGAR 1 EACH PACKET PO SCH (08:32)
[2018-11-19] MEDS: FERROUS SULFATE 325 MG TAB PO SCH (08:32)
[2018-11-19] MEDS: METOPROLOL TARTRATE 50 MG TAB PO SCH ×2 (08:32→21:21)
[2018-11-19] MEDS ORDERED: FUROSEMIDE 10 MG/ML 4 ML VIAL IV STA (08:46)
[2018-11-19] MEDS: SODIUM FERRIC GLUCONAT-SUCROSE 125 MG in SODIUM CHLORIDE 0.9% 100 ML IVPB SCH (08:55)
[2018-11-19 12:01] LABS: Glucose,Whole Blood 88 mg/dL (75-99)
--- NOTE | 2018-11-19 12:10 | PN ---
PROGRESS NOTE The patient is seen for followup for acute kidney injury. His renal function has improved with creatinine down to about 1.5 from 4.0 mg/dL. The patient also have evidence of volume overload. He did get a dose of Lasix yesterday. He will be getting another dose today. His potassium remains on the higher side staying at 5.5 to 5.6 mEq/L. Blood sugar is not significantly elevated. Patient is not on any other medications to potentiate hyperkalemia. Continue with the sodium bicarb as well. There are plans for possible discharge to rehab today. PHYSICAL EXAMINATION: On examination, blood pressure this morning was 152/64, heart rate 70 per minute. Patient is afebrile. EXAMINATION OF THE HEART: S1, S2. EXAMINATION OF THE LUNGS: Bilateral breath sounds are heard. Decreased breath sounds at bases. Abdomen is soft, obese. Examination of the lower extremities shows edema 2+ bilaterally. PRINTER MAINTAINER exam is grossly intact. LABS: Labs show sodium 142, potassium 5.5, chloride 111, BUN 63, serum creatinine 1.5, hemoglobin 8.9 g/dL. ASSESSMENT: 1. Acute kidney injury, nonoliguric, currently improved. Component of volume depletion initially. Currently patient is hypervolemic and he is being gently diuresed. 2. Chronic kidney disease stage 3 secondary to nephrosclerosis with baseline creatinine 1.5 to 1.8 mg/dL. 3. Severe mitral regurgitation, status post mitral valve repair on 10/31/2018. 4. Hyperkalemia associated with underlying renal failure as well as metabolic acidosis. Maintained on sodium bicarb control. Controlled blood sugars and I will also maintain the patient on loop diuretics which will help with the hyperkalemia. No evidence of ongoing gastrointestinal bleed. Continue off of DAYA inhibitors and nonsteroidal anti-inflammatory agents and maintain patient on low-potassium diet. 5. Status post mitral valve repair. PLAN: IV Lasix x1 and then maintain patient on 40 p.o. daily, which can be increased to b.i.d. depending on volume status and renal function in the rehab. Continue with low- potassium diet and repeat labs in a.m. We will continue to follow the patient in rehab once he is discharged. MMODL / IJN: [id number] /
--- NOTE | 2018-11-19 13:27 | P.PN ---
Subjective Progress Note Date: 11/19/18 Principal diagnosis: History of severe concentric mitral valve regurgitation with severely calcified mitral annulus status post complex mitral valve repair on 10/31/[address] Lozada, coronary artery disease with recent drug-eluting stent placed to the left anterior descending coronary artery in September 2018, chronic diastolic heart failure, hypertension, hyperlipidemia, type 2 diabetes mellitus with peripheral neuropathy and a preoperative hemoglobin A1c of 7%, chronic kidney disease with a baseline creatinine around 2, moderate chronic obstructive pulmonary disease with a preoperative FEV1 of 54% of predicted value, obstructive sleep apnea without home CPAP use, pulmonary hypertension, obesity, previous tobacco dependence and postoperative transaminitis and paroxysmal atrial fibrillation. The patient is sitting up to the bedside chair on the 3 S. cardiac stepdown unit. He is in no acute distress. The patient denies any complaints of pain and reports that he does have some shortness of breath with activity. He reports that he feels much better each day. BUN and creatinine are back to his baseline. Oxygen saturation is 98% on room air and he is achieving 1938-8070 mL on his incentive spirometry. The patient states that Dr. Martinez evaluated him this morning for possible admission to inpatient rehab. Objective - Vital Signs Vital signs: Vital Signs Temp 98.5 F 11/19/18 04:00 Pulse 61 11/19/18 04:00 Resp 18 11/19/18 04:00 BP 145/60 11/19/18 04:00 Pulse Ox 98 11/19/18 04:00 Intake & Output 11/18/18 11/19/18 11/19/18 18:59 06:59 18:59 Intake Total 500 Output Total 400 800 Balance 100 -800 Weight 100.2 kg Intake: Oral 500 Output: Urine 400 800 Other: Voiding Method Urinal Diaper # Voids 3 1 # Bowel Movements 1 - Constitutional General appearance: Present: cooperative, no acute distress, obese - Respiratory Details: Lung sounds essentially clear to his bilateral upper lobes, few scattered crac kles to bilateral bases. Respirations are symmetrical and nonlabored. Oxygen saturation is 98% on room air. Achieving 7320-3345 mL on his incentive spirometry. - Cardiovascular Details: Regular rhythm and rate. S1 and S2 present, negative for S3, gallop or murmur. Remote telemetry showing normal sinus rhythm heart rate 78. +1 edema to his bilateral lower extremities. - Gastrointestinal Gastrointestinal Comment(s): Abdomen is soft, nontender nondistended. Obese. No guarding or rigidity. Active bowel sounds present all 4 abdominal quadrants. No organomegaly appreciated. Tolerating oral intake. - Genitourinary Genitourinary Comment(s): Voiding clear shona urine. - Integumentary Integumentary Comment(s): Skin is warm and dry. No clubbing or cyanosis is present. Midline sternal incision is clean, dry and approximated. No drainage or redness is present. No rash or abnormal pigmentation is present. - Neurologic Neurologic Comment(s): No focal deficits. Neurologic: Present: CNII-XII intact - Musculoskeletal Musculoskeletal: Present: gait normal, generalized weakness, strength equal bilaterally - Psychiatric Psychiatric: Present: A&O x's 3, appropriate affect, intact judgment & insight - Allied health notes Allied health notes reviewed: nursing - Labs CBC & Chem 7: 11/19/18 06:05 11/19/18 06:05 Labs: Abnormal Lab Results - Last 24 Hours (Table) 11/18/18 11/18/18 11/18/18 Range/Units 11:41 15:57 17:00 RBC (4.30-5.90) m/uL Hgb (13.0-17.5) gm/dL Hct (39.0-53.0) % MCV (80.0-100.0) fL MCHC (31.0-37.0) g/dL RDW (11.5-15.5) % Potassium 5.6 H (3.5-5.1) mmol/L Chloride (98-107) mmol/L BUN (9-20) mg/dL Creatinine (0.66-1.25) mg/dL POC Glucose (mg/dL) 223 H 162 H (75-99) mg/dL 11/18/18 11/19/18 11/19/18 Range/Units 20:42 06:05 06:05 RBC 2.95 L (4.30-5.90) m/uL Hgb 8.9 L (13.0-17.5) gm/dL Hct 29.6 L (39.0-53.0) % MCV 100.3 H (80.0-100.0) fL MCHC 29.9 L (31.0-37.0) g/dL RDW 16.9 H (11.5-15.5) % Potassium 5.5 H (3.5-5.1) mmol/L Chloride 111 H (98-107) mmol/L BUN 63 H (9-20) mg/dL Creatinine 1.50 H (0.66-1.25) mg/dL POC Glucose (mg/dL) 194 H (75-99) mg/dL 11/19/18 Range/Units 06:37 RBC (4.30-5.90) m/uL Hgb (13.0-17.5) gm/dL Hct (39.0-53.0) % MCV (80.0-100.0) fL MCHC (31.0-37.0) g/dL RDW (11.5-15.5) % Potassium (3.5-5.1) mmol/L Chloride (98-107) mmol/L BUN (9-20) mg/dL Creatinine (0.66-1.25) mg/dL POC Glucose (mg/dL) 133 H (75-99) mg/dL - Imaging and Cardiology Chest x-ray: report reviewed, image reviewed Assessment and Plan Assessment: 1. Acute kidney injury with an admission creatinine of 4.04, BUN 163 2. Shortness of breath 3. History of severe eccentric mitral valve regurgitation, severely calcified mitral annulus, torn chordae to the P1 posterior leaflet, status post complex mitral valve repair on 10/31/2018 3. History of coronary artery disease with recent drug-eluting stent placed to his left anterior descending coronary artery on 09/24/2018 4. Chronic diastolic heart failure 5. Hypertension 6. Hyperlipidemia 7. Diabetes mellitus type 2, with peripheral neuropathy and a recent hemoglobin A1c of 7% 8. Chronic kidney disease stage III with a baseline creatinine of around 2 9. Moderate chronic obstructive pulmonary disease with a recent FEV1 54% of predicted value 10. Obstructive sleep apnea without home CPAP use 11. Pulmonary hypertension 12. Obesity 13. Osteoarthritis 14. History of tobacco dependence, previous pipe 15. History of paroxysmal atrial fibrillation 16. History of transaminitis Plan: 1. Continue to optimize with medical management, continue aspirin, Plavix, and beta sun. The patient will be started on a statin once his liver enzymes have normalized. 2. Avoid nephrotoxic agents. 3. Lasix 40 mg IV 1 now. 4. Increase activity as tolerated. PT/OT and cardiac rehab following. 5. BUN and creatinine management per nephrology recommendations. BUN 63 and creatinine 1.50 which more of his baseline. 6. Encourage use of his incentive spirometry every hour while awake. 7. Continue to reinforce open heart discharge instructions. Shower daily, no lifting pushing and pulling anything greater than 10 pounds or jug of milk for 12 weeks. Continue to encourage use of his heart hugger. 8. tool worker is following, anticipate need for inpatient or subacute rehab upon discharge. Dr. Martinez has been consulted for possible placement inpatient rehab. May discharge when okay with primary care service. 9. GI and DVT prophylaxis. 10. More recommendations to follow based on patient's clinical course. Time with Patient: Greater than 30
[2018-11-19 16:55] LABS: Glucose,Whole Blood 82 mg/dL (75-99)
[2018-11-19 21:01] LABS: Glucose,Whole Blood 100 mg/dL (75-99)
[2018-11-19] MEDS: INSULIN DETEMIR (LEVEMIR) 100 UNIT/ML SYR SQ SCH (21:21)
--- NOTE | 2018-11-19 22:01 | P.PN ---
Subjective Progress Note Date: 11/18/18 Principal diagnosis: Acute kidney injury possible ATN Patient is a pleasant 73-year-old male had a recent mitral 1 repair of the seventh on October 31 does have chronic diastolic dysfunction was on Lasix at home and chronic kidney disease stage IV with baseline creatinine around 2.5. Patient had lab work up done as an outpatient which showed highly elevated BUN/creatinine creatinine going up to 4.500 and be in up to 1 ET patient has some symptoms of shortness of breath since his discharge which is exertional without any cough or sputum production patient doesn't have leukocytosis no fever no other symptoms. His Rezulin being admitted for acute renal failure. Patient was started on IV fluids. Nephrology will be canceled it. 11/16/2018 Patient currently denied any complaints of chest pain or worsening shortness of breath. Patient is able to sit in a chair comfortably. Tolerating oral diet. Laboratory data showed BUN 153 and creatinine 3.18 which is trending down. 2-D echo cardiac exam showed normal ejection fraction at 60-60% with small pericardial effusion located near the left ventricle. Nephrology has seen the patient. No intervention for renal replacement therapy needed this time. Patient has been afebrile. 11/17/2018 Patient is currently sitting in a chair comfortably. No complaints of chest pain or shortness of breath. No nausea vomiting or abdominal pain. Tolerating oral diet. Creatinine level improved to 2.06 from 4.04 on admission. Potassium 5.5 today. Denied any complains of nausea vomiting or diarrhea. Patient will be continued on PT OT. Nephrology and CT surgery is on board. 11/18/2018 Patient says that his breathing is better. Still feels weak and shortness of breath. Renal function improved with creatinine level I.68 today. Potassium 5.6 Denied any complaints of chest pain. No nausea vomiting or diarrhea. Still having significant bilateral lower extremities edema but improved. CT surgery and nephrology is following. Current medications reviewed. Objective - Vital Signs Vital signs: Vital Signs Temp 98.1 F 11/18/18 11:07 Pulse 60 11/18/18 11:07 Resp 16 11/18/18 11:07 BP 140/67 11/18/18 11:07 Pulse Ox 98 11/18/18 11:07 Intake & Output 11/17/18 11/18/18 11/18/18 18:59 06:59 18:59 Intake Total 626 875 240 Output Total 1650 700 400 Balance -1024 175 -160 Weight 99.6 kg Intake: Intake, IV Titration 375 Amount Sodium Chloride 0.9% 1, 375 000 ml @ 75 mls/hr IV . [id number] [facility] Rx#:[id number] Oral 626 500 240 Output: Urine 1650 700 400 Other: # Bowel Movements 1 - Exam PHYSICAL EXAMINATION: GENERAL: The patient is alert and oriented x3, not in any acute distress. Well developed, well nourished. HEENT: Pupils are round and equally reacting to light. EOMI. No scleral icterus. No conjunctival pallor. Normocephalic, atraumatic. No pharyngeal erythema. No thyromegaly. CARDIOVASCULAR: S1 and S2 present. No murmurs, rubs, or gallops. PULMONARY: Chest is clear to auscultation, no wheezing or crackles. ABDOMEN: Soft, nontender, nondistended, normoactive bowel sounds. No palpable organomegaly. MUSCULOSKELETAL: No joint swelling or deformity. EXTREMITIES: No cyanosis, clubbing, pedal edema. NEUROLOGICAL: Gross neurological examination did not reveal any focal deficits. SKIN: No rashes. - Labs CBC & Chem 7: 11/19/18 06:05 11/19/18 06:05 Labs: Abnormal Lab Results - Last 24 Hours (Table) 11/17/18 11/18/18 11/18/18 Range/Units 21:02 06:10 06:10 RBC 2.78 L (4.30-5.90) m/uL Hgb 8.4 L (13.0-17.5) gm/dL Hct 27.3 L (39.0-53.0) % MCHC 30.6 L (31.0-37.0) g/dL RDW 17.5 H (11.5-15.5) % Potassium 5.6 H (3.5-5.1) mmol/L Chloride 112 H (98-107) mmol/L BUN 84 H (9-20) mg/dL Creatinine 1.68 H (0.66-1.25) mg/dL Glucose 120 H (74-99) mg/dL POC Glucose (mg/dL) 145 H (75-99) mg/dL AST 64 H (17-59) U/L ALT 99 H (21-72) U/L 11/18/18 11/18/18 Range/Units 06:45 11:41 RBC (4.30-5.90) m/uL Hgb (13.0-17.5) gm/dL Hct (39.0-53.0) % MCHC (31.0-37.0) g/dL RDW (11.5-15.5) % Potassium (3.5-5.1) mmol/L Chloride (98-107) mmol/L BUN (9-20) mg/dL Creatinine (0.66-1.25) mg/dL Glucose (74-99) mg/dL POC Glucose (mg/dL) 129 H 223 H (75-99) mg/dL AST (17-59) U/L ALT (21-72) U/L Assessment and Plan Assessment: -Acute renal failure: Probably due to excessive diuretic therapy which will be held and patient was started on IV fluids and consult neurology. We'll also obtain urine and exudative urine random creatinine. -Shortness of breath and secondary to mild left-sided pleural effusion and atelectasis no evidence of and pneumonia clinically will not require any antibiotics. Left-sided effusion is probably postoperative changes from his recent carotid thoracic surgery -, Mitral valve regurgitation with recent mitral valve. -Carotid disease with recent stent placement LAD and patient is a 9 dual an tiplatelet therapy which will be continued -Type 2 diabetes mellitus patient will be resumed on her his home regimen and the titrate insulin 8 depending on his blood sugars -Diabetic peripheral neuropathy -Obesity -Obstructive sleep apnea uses CPAP machine -Pulmonary hypertension -Hypertension: Patient is presently hypotensive -Hyperlipidemia -Chronic kidney disease stage IV baseline creatinine around 2.2. Secondary to diabetic nephropathy Time with Patient: Greater than 30
--- NOTE | 2018-11-19 22:02 | P.PN ---
Subjective Progress Note Date: 11/19/18 Principal diagnosis: Acute kidney injury possible ATN Patient is a pleasant 73-year-old male had a recent mitral 1 repair of the seventh on October 31 does have chronic diastolic dysfunction was on Lasix at home and chronic kidney disease stage IV with baseline creatinine around 2.5. Patient had lab work up done as an outpatient which showed highly elevated BUN/creatinine creatinine going up to 4.500 and be in up to 1 ET patient has some symptoms of shortness of breath since his discharge which is exertional without any cough or sputum production patient doesn't have leukocytosis no fever no other symptoms. His Rezulin being admitted for acute renal failure. Patient was started on IV fluids. Nephrology will be canceled it. 11/16/2018 Patient currently denied any complaints of chest pain or worsening shortness of breath. Patient is able to sit in a chair comfortably. Tolerating oral diet. Laboratory data showed BUN 153 and creatinine 3.18 which is trending down. 2-D echo cardiac exam showed normal ejection fraction at 60-60% with small pericardial effusion located near the left ventricle. Nephrology has seen the patient. No intervention for renal replacement therapy needed this time. Patient has been afebrile. 11/17/2018 Patient is currently sitting in a chair comfortably. No complaints of chest pain or shortness of breath. No nausea vomiting or abdominal pain. Tolerating oral diet. Creatinine level improved to 2.06 from 4.04 on admission. Potassium 5.5 today. Denied any complains of nausea vomiting or diarrhea. Patient will be continued on PT OT. Nephrology and CT surgery is on board. 11/18/2018 Patient says that his breathing is better. Still feels weak and shortness of breath. Renal function improved with creatinine level I.68 today. Potassium 5.6 Denied any complaints of chest pain. No nausea vomiting or diarrhea. Still having significant bilateral lower extremities edema but improved. CT surgery and nephrology is following. 11/19/2018 Patient denied any complaints of chest pain or worsening shortness of breath. Shortness of breath actually improved today. Renal function improved with creatinine 1.5. Patient says that he feels better today. Currently being evaluated for rehab transfer. Patient has been afebrile. No chest pain. No other acute overnight issues. Current medications reviewed. Objective - Vital Signs Vital signs: Vital Signs Temp 97.9 F 11/19/18 16:00 Pulse 65 11/19/18 16:00 Resp 20 11/19/18 16:00 BP 154/70 11/19/18 16:00 Pulse Ox 98 11/19/18 16:00 Intake & Output 11/19/18 11/19/18 11/20/18 06:59 18:59 06:59 Intake Total 922 Output Total 800 575 Balance -800 347 Weight 100.2 kg Intake: Intake, IV Titration 100 Amount Sodium Ferric Gluconat- 100 Sucrose 125 mg In Sodium Chloride 0.9% 100 ml @ 100 mls/hr IVPB DAILY [facility] Rx#:[id number] Oral 822 Output: Urine 800 575 Other: Voiding Method Urinal Diaper # Voids 1 # Bowel Movements 1 - Exam PHYSICAL EXAMINATION: GENERAL: The patient is alert and oriented x3, not in any acute distress. Well developed, well nourished. HEENT: Pupils are round and equally reacting to light. EOMI. No scleral icterus. No conjunctival pallor. Normocephalic, atraumatic. No pharyngeal erythema. No thyromegaly. CARDIOVASCULAR: S1 and S2 present. No murmurs, rubs, or gallops. PULMONARY: Chest is clear to auscultation, no wheezing or crackles. ABDOMEN: Soft, nontender, nondistended, normoactive bowel sounds. No palpable organomegaly. MUSCULOSKELETAL: No joint swelling or deformity. EXTREMITIES: No cyanosis, clubbing, pedal edema. NEUROLOGICAL: Gross neurological examination did not reveal any focal deficits. SKIN: No rashes. - Labs CBC & Chem 7: 11/19/18 06:05 11/19/18 06:05 Labs: Abnormal Lab Results - Last 24 Hours (Table) 11/19/18 11/19/18 11/19/18 Range/Units 06:05 06:05 06:37 RBC 2.95 L (4.30-5.90) m/uL Hgb 8.9 L (13.0-17.5) gm/dL Hct 29.6 L (39.0-53.0) % MCV 100.3 H (80.0-100.0) fL MCHC 29.9 L (31.0-37.0) g/dL RDW 16.9 H (11.5-15.5) % Potassium 5.5 H (3.5-5.1) mmol/L Chloride 111 H (98-107) mmol/L BUN 63 H (9-20) mg/dL Creatinine 1.50 H (0.66-1.25) mg/dL POC Glucose (mg/dL) 133 H (75-99) mg/dL 11/19/18 Range/Units 21:00 RBC (4.30-5.90) m/uL Hgb (13.0-17.5) gm/dL Hct (39.0-53.0) % MCV (80.0-100.0) fL MCHC (31.0-37.0) g/dL RDW (11.5-15.5) % Potassium (3.5-5.1) mmol/L Chloride (98-107) mmol/L BUN (9-20) mg/dL Creatinine (0.66-1.25) mg/dL POC Glucose (mg/dL) 100 H (75-99) mg/dL Assessment and Plan Assessment: -Acute renal failure: Probably due to excessive diuretic therapy which will be held and patient was started on IV fluids and nephrology is following. -Shortness of breath and secondary to mild left-sided pleural effusion and atelectasis no evidence of and pneumonia clinically will not require any antibiotics. Left-sided effusion is probably postoperative changes from his recent carotid thoracic surgery -, Mitral valve regurgitation with recent mitral valve. -Carotid disease with recent stent placement LAD and patient is a 9 dual antiplatelet therapy which will be continued -Type 2 diabetes mellitus patient will be resumed on her his home regimen and the titrate insulin 8 depending on his blood sugars -Diabetic peripheral neuropathy -Obesity -Obstructive sleep apnea uses CPAP machine -Pulmonary hypertension -Hypertension: Patient is presently hypotensive -Hyperlipidemia -Chronic kidney disease stage IV baseline creatinine around 2.2. Secondary to diabetic nephropathy Time with Patient: Greater than 30
[2018-11-20 01:27] LABS: Glucose,Whole Blood 115 mg/dL (75-99)
[2018-11-20] MEDS: ACETAMINOPHEN TAB 500 MG TAB PO PRN ×2 (05:16→19:58)
[2018-11-20 06:46] LABS: Glucose,Whole Blood 121 mg/dL (75-99)
[2018-11-20] MEDS: ALBUTEROL NEBULIZED 2.5 MG/3 ML INHALATION PRN (06:59)
[2018-11-20] MEDS: INSULIN ASPART (NovoLOG) 100 UNIT/ML VIAL SQ SCH ×7 (07:01→22:22)
--- NOTE | 2018-11-20 08:18 | XR ---
EXAMINATION TYPE: XR chest 1V portable DATE OF EXAM: 11/20/2018 CLINICAL HISTORY: Difficulty breathing progress study. Postoperative mitral valve repair. TECHNIQUE: Single AP portable upright view of the chest is obtained. COMPARISON: Chest x-ray from one day earlier and older studies. FINDINGS: Overlying sternal wires and cardiac closure device are redemonstrated. Overlying EKG leads are again seen. There is persistent cardiomegaly with increasing central vascular congestion and per sistent left basilar opacity silhouetting left hemidiaphragm. No pneumothorax is evident bilaterally. Osseous structures are intact. IMPRESSION: Findings suggest worsening CHF exacerbation fluid overload status there is cardiomegaly w ith increasing central vascular congestion bilaterally. There is persistent left basilar acute infilt rate and/or atelectasis noted.
[2018-11-20] MEDS: LACTOBACILLUS ACIDOPH & BULGAR 1 EACH PACKET PO SCH (09:15)
[2018-11-20] MEDS: SODIUM BICARBONATE TAB 650 MG TAB PO SCH ×2 (09:17→22:21)
[2018-11-20] MEDS: AMIODARONE 200 MG TAB PO SCH (09:17)
[2018-11-20] MEDS: METOPROLOL TARTRATE 50 MG TAB PO SCH ×2 (09:17→22:21)
[2018-11-20] MEDS: CHOLECALCIFEROL 1,000 UNIT TAB PO SCH (09:17)
[2018-11-20] MEDS: CLOPIDOGREL 75 MG TAB PO SCH (09:17)
[2018-11-20 09:18] LABS: Anisocytosis Slight; HCT 26.7 % (39.0-53.0); HGB 8.5 gm/dL (13.0-17.5); Hypochromasia Moderate; MCV 96.9 fL (80.0-100.0); Macrocytosis Slight; Platelet Count 268 k/uL (150-450); Poikilocytosis Slight; RBC 2.76 m/uL (4.30-5.90); RDW 18.2 % (11.5-15.5); WBC 6.2 k/uL (3.8-10.6)
[2018-11-20] MEDS: ASPIRIN 81 MG PO SCH (09:18)
[2018-11-20] MEDS: FERROUS SULFATE 325 MG TAB PO SCH (09:18)
[2018-11-20] MEDS: SODIUM FERRIC GLUCONAT-SUCROSE 125 MG in SODIUM CHLORIDE 0.9% 100 ML IVPB SCH (09:18)
[2018-11-20 09:28] LABS: Albumin 3.3 g/dL (3.5-5.0); Calcium 8.9 mg/dL (8.4-10.2); Total Bilirubin 1.2 mg/dL (0.2-1.3); Total Protein 6.5 g/dL (6.3-8.2)
[2018-11-20 09:38] LABS: Potassium 5.3 mmol/L (3.5-5.1)
[2018-11-20] MEDS ORDERED: FUROSEMIDE 10 MG/ML 4 ML VIAL IV STA (10:10)
[2018-11-20 10:58] VITALS: BMI 35.6
--- NOTE | 2018-11-20 11:39 | P.PN ---
Subjective Progress Note Date: 11/20/18 Principal diagnosis: History of severe concentric mitral valve regurgitation with severely calcified mitral annulus status post complex mitral valve repair on 10/31/[address] Lozada, coronary artery disease with recent drug-eluting stent placed to the left anterior descending coronary artery in September 2018, chronic diastolic heart failure, hypertension, hyperlipidemia, type 2 diabetes mellitus with peripheral neuropathy and a preoperative hemoglobin A1c of 7%, chronic kidney disease with a baseline creatinine around 2, moderate chronic obstructive pulmonary disease with a preoperative FEV1 of 54% of predicted value, obstructive sleep apnea without home CPAP use, pulmonary hypertension, obesity, previous tobacco dependence and postoperative transaminitis and paroxysmal atrial fibrillation. The patient is sitting up to the bedside chair on the 3 S. cardiac stepdown unit. He is in no acute distress. The patient denies any complaints of pain and reports that he continues to have some shortness of breath with activity. He ambulated in the cardiac stepdown hallway with minimal assistance this morning around 100 feet. He is tolerating oral intake. He was given Lasix 40 mg IV 1 yesterday and responded well. IV fluids have been discontinued per nephrology's recommendations. The patient is waiting a bed at either subacute or inpatient rehab. He is achieving 1250 mL on his incentive spirometry and his oxygen saturations are 98% on room air. Labs this morning show a BUN of 55 and creatinine of 1.40. Objective - Vital Signs Vital signs: Vital Signs Temp 97.7 F 11/20/18 08:35 Pulse 67 11/20/18 08:35 Resp 18 11/20/18 08:35 BP 115/56 11/20/18 08:35 Pulse Ox 98 11/20/18 08:35 Intake & Output 11/19/18 11/20/18 11/20/18 18:59 06:59 18:59 Intake Total 922 Output Total 575 500 Balance 347 -500 Weight 100.3 kg 100.3 kg Intake: Intake, IV Titration 100 Amount Sodium Ferric Gluconat- 100 Sucrose 125 mg In Sodium Chloride 0.9% 100 ml @ 100 mls/hr IVPB DAILY [facility] Rx#:[id number] Oral 822 Output: Urine 575 500 Other: Voiding Method Urinal Diaper # Voids 4 - Constitutional General appearance: Present: cooperative, no acute distress, obese - Respiratory Details: Lung sounds essentially clear to his bilateral upper lobes, few scattered crackles to bilateral bases. Respirations are symmetrical and nonlabored. Oxygen saturation is 98% on room air. Achieving 1250 mL on his incentive spirometry. - Cardiovascular Details: Regular rhythm and rate. S1 and S2 present, negative for S3, gallop or murmur. Remote telemetry showing normal sinus rhythm heart rate 68. +1 edema to his bilateral lower extremities. Thigh high sequential compression devices in place was bilateral lower extremities. - Gastrointestinal Gastrointestinal Comment(s): Abdomen is soft, nontender and nondistended. Active bowel sounds present all 4 abdominal quadrants. No guarding or rigidity. No organomegaly. Tolerating oral intake. - Genitourinary Genitourinary Comment(s): Voiding clear shona urine. - Integumentary Integumentary Comment(s): Skin is warm and dry. No clubbing or cyanosis is present. Midline sternal incision is clean, dry and approximated. No drainage or redness is present. No rash or abnormal pigmentation is present. - Neurologic Neurologic Comment(s): No focal deficits. Neurologic: Present: CNII-XII intact - Musculoskeletal Musculoskeletal: Present: gait normal, generalized weakness, strength equal bilaterally - Psychiatric Psychiatric: Present: A&O x's 3, appropriate affect, intact judgment & insight - Allied health notes Allied health notes reviewed: nursing - Labs CBC & Chem 7: 11/20/18 08:27 11/20/18 08:27 Labs: Abnormal Lab Results - Last 24 Hours (Table) 11/19/18 11/20/18 11/20/18 Range/Units 21:00 01:18 06:14 RBC (4.30-5.90) m/uL Hgb (13.0-17.5) gm/dL Hct (39.0-53.0) % RDW (11.5-15.5) % Potassium (3.5-5.1) mmol/L Chloride (98-107) mmol/L Carbon Dioxide (22-30) mmol/L BUN (9-20) mg/dL Creatinine (0.66-1.25) mg/dL Glucose (74-99) mg/dL POC Glucose (mg/dL) 100 H 115 H 121 H (75-99) mg/dL AST (17-59) U/L ALT (21-72) U/L Albumin (3.5-5.0) g/dL 11/20/18 11/20/18 Range/Units 08:27 08:27 RBC 2.76 L (4.30-5.90) m/uL Hgb 8.5 L (13.0-17.5) gm/dL Hct 26.7 L (39.0-53.0) % RDW 18.2 H (11.5-15.5) % Potassium 5.3 H (3.5-5.1) mmol/L Chloride 111 H (98-107) mmol/L Carbon Dioxide 19 L (22-30) mmol/L BUN 55 H (9-20) mg/dL Creatinine 1.40 H (0.66-1.25) mg/dL Glucose 175 H (74-99) mg/dL POC Glucose (mg/dL) (75-99) mg/dL AST 76 H (17-59) U/L ALT 83 H (21-72) U/L Albumin 3.3 L (3.5-5.0) g/dL - Imaging and Cardiology Chest x-ray: report reviewed, image reviewed Assessment and Plan Assessment: 1. Acute kidney injury with an admission creatinine of 4.04, BUN 163 2. Shortness of breath 3. History of severe eccentric mitral valve regurgitation, severely calcified mitral annulus, torn chordae to the P1 posterior leaflet, status post complex mitral valve repair on 10/31/2018 3. History of coronary artery disease with recent drug-eluting stent placed to his left anterior descending coronary artery on 09/24/2018 4. Chronic diastolic heart failure 5. Hypertension 6. Hyperlipidemia 7. Diabetes mellitus type 2, with peripheral neuropathy and a recent hemoglobin A1c of 7% 8. Chronic kidney disease stage III with a baseline creatinine of around 2 9. Moderate chronic obstructive pulmonary disease with a recent FEV1 54% of predicted value 10. Obstructive sleep apnea without home CPAP use 11. Pulmonary hypertension 12. Obesity 13. Osteoarthritis 14. History of tobacco dependence, previous pipe 15. History of paroxysmal atrial fibrillation 16. History of transaminitis Plan: 1. Continue to optimize with medical management, continue aspirin, Plavix, and beta sun. The patient will be started on a statin once his liver enzymes have normalized. 2. Avoid nephrotoxic agents. 3. Lasix 40 mg IV [address] Garcia's recommendations. 4. Increase activity as tolerated. PT/OT and cardiac rehab following. Out of bed for all meals. 5. BUN and creatinine management per nephrology recommendations. BUN 55 and creatinine 1.40 today. 6. Encourage use of his incentive spirometry every hour while awake. 7. Continue to reinforce open heart discharge instructions. Shower daily, no lifting pushing and pulling anything greater than 10 pounds or jug of milk for 12 weeks. Continue to encourage use of his heart hugger. 8. [employer] is following, anticipate need for inpatient or subacute rehab upon discharge. Awaiting on insurance authorization. 9. GI and DVT prophylaxis. 10. More recommendations to follow based on patient's clinical course. Time with Patient: Greater than 30
[2018-11-20 12:26] LABS: Glucose,Whole Blood 192 mg/dL (75-99)
[2018-11-20 17:05] LABS: Glucose,Whole Blood 105 mg/dL (75-99)
--- NOTE | 2018-11-20 17:51 | PN ---
PROGRESS NOTE Patient is seen for followup for acute kidney injury and volume overload. He has been receiving IV Lasix for the past 3 days. Volume status has improved somewhat. Lower extremity edema is slightly better. The patient is being considered for discharge to rehab. PHYSICAL EXAMINATION: This morning blood pressure was 117/57, heart rate 60 per minute patient is afebrile. Examination of the heart S1, S2. Examination of the lungs, bilateral breath sounds are heard. Abdomen is soft, nontender, nondistended. Examination lower extremities shows edema 2+ bilaterally. [employer] exam grossly intact. LABS: Show sodium 139, potassium 5.3, chloride 111, CO2 is 19, BUN 55, serum creatinine 1.4, hemoglobin 8.5 g/dL. ASSESSMENT: 1. Acute kidney injury, acute tubular necrosis, currently improved. 2. Hyperkalemia associated with renal failure, currently improved. The patient is maintained on loop diuretics and we will continue with the Lasix. 3. Volume overload, slowly improving. 4. Chronic kidney disease stage 3 secondary to nephrosclerosis. Baseline creatinine about 1.5 mg/dL. 5. Severe mitral regurg status post mitral valve repair. PLAN: Continue with IV Lasix as long as patient is in the hospital. He will be discharged on p.o. diuretics. MMODL / IJN: [id number] /
[2018-11-20 20:41] LABS: Glucose,Whole Blood 137 mg/dL (75-99)
[2018-11-20] MEDS: INSULIN DETEMIR (LEVEMIR) 100 UNIT/ML SYR SQ SCH (22:25)
--- NOTE | 2018-11-20 23:19 | P.PN ---
Subjective Progress Note Date: 11/20/18 Principal diagnosis: Acute kidney injury possible ATN Patient is a pleasant 73-year-old male had a recent mitral 1 repair of the seventh on October 31 does have chronic diastolic dysfunction was on Lasix at home and chronic kidney disease stage IV with baseline creatinine around 2.5. Patient had lab work up done as an outpatient which showed highly elevated BUN/creatinine creatinine going up to 4.500 and be in up to 1 ET patient has some symptoms of shortness of breath since his discharge which is exertional without any cough or sputum production patient doesn't have leukocytosis no fever no other symptoms. His Rezulin being admitted for acute renal failure. Patient was started on IV fluids. Nephrology will be canceled it. 11/16/2018 Patient currently denied any complaints of chest pain or worsening shortness of breath. Patient is able to sit in a chair comfortably. Tolerating oral diet. Laboratory data showed BUN 153 and creatinine 3.18 which is trending down. 2-D echo cardiac exam showed normal ejection fraction at 60-60% with small pericardial effusion located near the left ventricle. Nephrology has seen the patient. No intervention for renal replacement therapy needed this time. Patient has been afebrile. 11/17/2018 Patient is currently sitting in a chair comfortably. No complaints of chest pain or shortness of breath. No nausea vomiting or abdominal pain. Tolerating oral diet. Creatinine level improved to 2.06 from 4.04 on admission. Potassium 5.5 today. Denied any complains of nausea vomiting or diarrhea. Patient will be continued on PT OT. Nephrology and CT surgery is on board. 11/18/2018 Patient says that his breathing is better. Still feels weak and shortness of breath. Renal function improved with creatinine level I.68 today. Potassium 5.6 Denied any complaints of chest pain. No nausea vomiting or diarrhea. Still having significant bilateral lower extremities edema but improved. CT surgery and nephrology is following. 11/19/2018 Patient denied any complaints of chest pain or worsening shortness of breath. Shortness of breath actually improved today. Renal function improved with creatinine 1.5. Patient says that he feels better today. Currently being evaluated for rehab transfer. Patient has been afebrile. No chest pain. No other acute overnight issues. 11/20/2018 Patient denied any complains of chest pain or worsening shortness of breath. Leg swelling is still present. Patient was given extra dose of IV Lasix. Otherwise renal function is stable. Nephrology is on board. Continued on PT OT and awaiting for rehab transfer. Tolerating oral diet. No nausea vomiting or abdominal pain or diarrhea. All other review of systems negative except level. Current medications reviewed. Objective - Vital Signs Vital signs: Vital Signs Temp 98.0 F 11/20/18 20:00 Pulse 64 11/20/18 20:00 Resp 19 11/20/18 20:00 BP 149/70 11/20/18 20:00 Pulse Ox 95 11/20/18 20:00 Intake & Output 11/20/18 11/20/18 11/21/18 06:59 18:59 06:59 Intake Total 960 Output Total 500 Balance -500 960 Weight 100.3 kg 100.3 kg Intake: Oral 960 Output: Urine 500 Other: Voiding Method Urinal Urinal Diaper Diaper # Voids 4 2 1 - Exam PHYSICAL EXAMINATION: GENERAL: The patient is alert and oriented x3, not in any acute distress. Well developed, well nourished. HEENT: Pupils are round and equally reacting to light. EOMI. No scleral icterus. No conjunctival pallor. Normocephalic, atraumatic. No pharyngeal erythema. No thyromegaly. CARDIOVASCULAR: S1 and S2 present. No murmurs, rubs, or gallops. PULMONARY: Chest is clear to auscultation, no wheezing or crackles. ABDOMEN: Soft, nontender, nondistended, normoactive bowel sounds. No palpable organomegaly. MUSCULOSKELETAL: No joint swelling or deformity. EXTREMITIES: No cyanosis, clubbing, pedal edema. NEUROLOGICAL: Gross neurological examination did not reveal any focal deficits. SKIN: No rashes. - Labs CBC & Chem 7: 11/20/18 08:27 11/20/18 08:27 Labs: Abnormal Lab Results - Last 24 Hours (Table) 11/20/18 11/20/18 11/20/18 Range/Units 01:18 06:14 08:27 RBC 2.76 L (4.30-5.90) m/uL Hgb 8.5 L (13.0-17.5) gm/dL Hct 26.7 L (39.0-53.0) % RDW 18.2 H (11.5-15.5) % Potassium (3.5-5.1) mmol/L Chloride (98-107) mmol/L Carbon Dioxide (22-30) mmol/L BUN (9-20) mg/dL Creatinine (0.66-1.25) mg/dL Glucose (74-99) mg/dL POC Glucose (mg/dL) 115 H 121 H (75-99) mg/dL AST (17-59) U/L ALT (21-72) U/L Albumin (3.5-5.0) g/dL 11/20/18 11/20/18 11/20/18 Range/Units 08: 11:53 16:55 RBC (4.30-5.90) m/uL Hgb (13.0-17.5) gm/dL Hct (39.0-53.0) % RDW (11.5-15.5) % Potassium 5.3 H (3.5-5.1) mmol/L Chloride 111 H (98-107) mmol/L Carbon Dioxide 19 L (22-30) mmol/L BUN 55 H (9-20) mg/dL Creatinine 1.40 H (0.66-1.25) mg/dL Glucose 175 H (74-99) mg/dL POC Glucose (mg/dL) 192 H 105 H (75-99) mg/dL AST 76 H (17-59) U/L ALT 83 H (21-72) U/L Albumin 3.3 L (3.5-5.0) g/dL 11/20/18 Range/Units 20:39 RBC (4.30-5.90) m/uL Hgb (13.0-17.5) gm/dL Hct (39.0-53.0) % RDW (11.5-15.5) % Potassium (3.5-5.1) mmol/L Chloride (98-107) mmol/L Carbon Dioxide (22-30) mmol/L BUN (9-20) mg/dL Creatinine (0.66-1.25) mg/dL Glucose (74-99) mg/dL POC Glucose (mg/dL) 137 H (75-99) mg/dL AST (17-59) U/L ALT (21-72) U/L Albumin (3.5-5.0) g/dL Assessment and Plan Assessment: -Acute renal failure: Probably due to excessive diuretic therapy which will be held and patient was started on IV fluids. DC'd IV fluids. Currently tolerating oral diet. and nephrology is following. Renal function is back to baseline. Patient was given 1 dose of IV Lasix. -Shortness of breath and secondary to mild left-sided pleural effusion and atelectasis no evidence of and pneumonia clinically will not require any antibiotics. Left-sided effusion is probably postoperative changes from his recent carotid thoracic surgery -, Mitral valve regurgitation with recent mitral valve. -Carotid disease with recent stent placement LAD and patient is on dual antiplatelet therapy which will be continued -Type 2 diabetes mellitus patient will be resumed on her his home regimen and the titrate insulin 8 depending on his blood sugars -Diabetic peripheral neuropathy -Obesity -Obstructive sleep apnea uses CPAP machine -Pulmonary hypertension -Hypertension: Patient is presently hypotensive -Hyperlipidemia -Chronic kidney disease stage IV baseline creatinine around 2.2. Secondary to diabetic nephropathy Time with Patient: Greater than 30
[2018-11-21] MEDS: ACETAMINOPHEN TAB 500 MG TAB PO PRN ×2 (06:00→12:03)
[2018-11-21 06:27] LABS: Glucose,Whole Blood 122 mg/dL (75-99)
[2018-11-21] MEDS: INSULIN ASPART (NovoLOG) 100 UNIT/ML VIAL SQ SCH ×4 (06:56→12:29)
[2018-11-21 07:31] LABS: Anisocytosis Slight; HCT 29.2 % (39.0-53.0); HGB 9.2 gm/dL (13.0-17.5); Hypochromasia Marked; MCH 30.8 pg (25.0-35.0); MCHC 31.3 g/dL (31.0-37.0); MCV 98.3 fL (80.0-100.0); Macrocytosis Slight; Mean Platelet Volume 7.2; Platelet Count 340 k/uL (150-450); Poikilocytosis Slight; RBC 2.98 m/uL (4.30-5.90); RDW 18.7 % (11.5-15.5); WBC 6.7 k/uL (3.8-10.6)
[2018-11-21 07:46] LABS: Albumin 3.5 g/dL (3.5-5.0); Calcium 9.2 mg/dL (8.4-10.2); Potassium 5.1 mmol/L (3.5-5.1); Total Protein 6.7 g/dL (6.3-8.2)
--- NOTE | 2018-11-21 08:16 | XR ---
EXAMINATION TYPE: XR chest 1V portable DATE OF EXAM: 11/21/2018 Comparison: 11/20/2018 Clinical History: 73-year-old male Postoperative mitral valve repair Findings: Median sternotomy wires. Heart remains moderately enlarged. Diffuse interstitial prominence shows imp rovement from prior. Residual patchy retrocardiac density. Impression: Stable moderate cardiomegaly. Improving pulmonary vascular congestion. Residual patchy retrocardiac o pacity.
[2018-11-21 08:31] VITALS: PULSE 65; RESP 18
[2018-11-21] MEDS: ASPIRIN 81 MG PO SCH (09:09)
[2018-11-21] MEDS: FERROUS SULFATE 325 MG TAB PO SCH (09:09)
[2018-11-21] MEDS: LACTOBACILLUS ACIDOPH & BULGAR 1 EACH PACKET PO SCH (09:09)
[2018-11-21] MEDS: SODIUM BICARBONATE TAB 650 MG TAB PO SCH (09:09)
[2018-11-21] MEDS: SODIUM FERRIC GLUCONAT-SUCROSE 125 MG in SODIUM CHLORIDE 0.9% 100 ML IVPB SCH (09:09)
[2018-11-21] MEDS: METOPROLOL TARTRATE 50 MG TAB PO SCH (09:10)
[2018-11-21] MEDS: AMIODARONE 200 MG TAB PO SCH (09:10)
[2018-11-21] MEDS: CHOLECALCIFEROL 1,000 UNIT TAB PO SCH (09:10)
[2018-11-21] MEDS: CLOPIDOGREL 75 MG TAB PO SCH (09:10)
--- NOTE | 2018-11-21 09:16 | P.PN ---
Subjective Progress Note Date: 11/21/18 Principal diagnosis: Acute kidney injury. Previous medical history of severe concentric mitral valve regurgitation with severely calcified mitral annulus status post complex mitral valve repair on 10/31/2018 with postoperative transaminitis and paroxysmal atrial fibrillation, coronary artery disease with recent drug-eluting stent to the left anterior descending coronary artery in September 2018, chronic diastolic heart failure, hypertension, hyperlipidemia, type 2 diabetes mellitus with peripheral neuropathy and hemoglobin A1c of 7%, chronic kidney disease with a baseline creatinine around 2, moderate chronic obstructive pulmonary disease with FEV1 of 54% of predicted, obstructive sleep apnea without home CPAP use, pulmonary hypertension, obesity, and previous tobacco dependence. The patient is currently sitting up in a recliner eating breakfast in no acute distress on the cardiac stepdown unit. He denies pain. Does still complain of mild shortness of breath with activity. He has ambulated in the hallway. Insurance denied approval for inpatient rehab despite [id number] phone call, they did authorize subacute rehab and discharge planning is in progress. The patient is currently in normal sinus rhythm with stable vital signs. No new concerns. Objective - Vital Signs Vital signs: Vital Signs Temp 97.4 F L 11/21/18 07:35 Pulse 65 11/21/18 07:35 Resp 18 11/21/18 07:35 BP 142/95 11/21/18 07:35 Pulse Ox 99 11/21/18 07:35 Intake & Output 11/20/18 11/21/18 11/21/18 18:59 06:59 18:59 Intake Total 960 600 Output Total 1100 Balance 960 -1100 600 Weight 100.3 kg 100.3 kg Intake: Oral 960 600 Output: Urine 1100 Other: Voiding Method Urinal Diaper # Voids 2 3 - Constitutional General appearance: Present: cooperative, no acute distress, obese - Respiratory Details: Lungs sounds diminished bilaterally. Respirations even, nonlabored. Currently on room air with oxygen saturation 99%. Able to achieve 1000 mL on his chago ntive spirometry. Strong cough. - Cardiovascular Details: S1, S2 present. Regular rate and rhythm, sinus rhythm on telemetry. Sternum stable. Palpable peripheral pulses bilaterally. Bilateral lower extremity 2+ pitting edema present. No calf pain or tenderness noted. Antiembolism stockings present. Heart hugger in place with patient demonstrating appropriate use. - Gastrointestinal Gastrointestinal Comment(s): Abdomen soft, nontender, nondistended. Active bowel sounds present 4 quadrants. Tolerating diet. - Genitourinary Genitourinary Comment(s): Continues to void clear, yellow urine. - Integumentary Integumentary Comment(s): Skin is warm and dry with evidence of good perfusion. Anterior chest incision well approximated and covered with Dermabond dressing. No drainage present. - Neurologic Neurologic: Present: CNII-XII intact - Musculoskeletal Musculoskeletal: Present: gait normal, generalized weakness, strength equal bilaterally - Psychiatric Psychiatric: Present: A&O x's 3, appropriate affect - Allied health notes Allied health notes reviewed: nursing - Labs CBC & Chem 7: 11/21/18 07:06 11/21/18 07:06 Labs: Abnormal Lab Results - Last 24 Hours (Table) 11/20/18 11/20/18 11/20/18 Range/Units 08:27 08:27 11:53 RBC 2.76 L (4.30-5.90) m/uL Hgb 8.5 L (13.0-17.5) gm/dL Hct 26.7 L (39.0-53.0) % RDW 18.2 H (11.5-15.5) % Potassium 5.3 H (3.5-5.1) mmol/L Chloride 111 H (98-107) mmol/L Carbon Dioxide 19 L (22-30) mmol/L BUN 55 H (9-20) mg/dL Creatinine 1.40 H (0.66-1.25) mg/dL Glucose 175 H (74-99) mg/dL POC Glucose (mg/dL) 192 H (75-99) mg/dL AST 76 H (17-59) U/L ALT 83 H (21-72) U/L Albumin 3.3 L (3.5-5.0) g/dL 11/20/18 11/20/18 11/21/18 Range/Units 16:55 20:39 06:21 RBC (4.30-5.90) m/uL Hgb (13.0-17.5) gm/dL Hct (39.0-53.0) % RDW (11.5-15.5) % Potassium (3.5-5.1) mmol/L Chloride (98-107) mmol/L Carbon Dioxide (22-30) mmol/L BUN (9-20) mg/dL Creatinine (0.66-1.25) mg/dL Glucose (74-99) mg/dL POC Glucose (mg/dL) 105 H 137 H 122 H (75-99) mg/dL AST (17-59) U/L ALT (21-72) U/L Albumin (3.5-5.0) g/dL 11/21/18 11/21/18 Range/Units 07:06 07:06 RBC 2.98 L (4.30-5.90) m/uL Hgb 9.2 L (13.0-17.5) gm/dL Hct 29.2 L (39.0-53.0) % RDW 18.7 H (11.5-15.5) % Potassium (3.5-5.1) mmol/L Chloride 108 H (98-107) mmol/L Carbon Dioxide (22-30) mmol/L BUN 49 H (9-20) mg/dL Creatinine 1.54 H (0.66-1.25) mg/dL Glucose 111 H (74-99) mg/dL POC Glucose (mg/dL) (75-99) mg/dL AST 63 H (17-59) U/L ALT 85 H (21-72) U/L Albumin (3.5-5.0) g/dL - Imaging and Cardiology Chest x-ray: report reviewed, image reviewed Assessment and Plan Assessment: 1. Acute on chronic kidney disease. 2. History of severe mitral valve regurgitation with severely calcified mitral annulus, status post complex mitral valve repair 10/31/2018 3. Postoperative transaminitis 4. Postoperative paroxysmal atrial fibrillation, currently in sinus rhythm 5. Coronary artery disease with drug-eluting stent to the LAD in September 2018 6. Chronic diastolic heart failure 7. Hypertension 8. Hyperlipidemia 9. Type 2 diabetes mellitus with peripheral neuropathy, hemoglobin A1c 7% 10. Moderate COPD with FEV1 of 54% of predicted 11. Obstructive sleep apnea without home CPAP use 12. Pulmonary hypertension 13. Previous tobacco dependence Plan: 1. Continue aspirin, Plavix, and beta sun. The patient should be re- started on statin once liver enzymes have normalized. 2. Continue amiodarone for A. fib prophylaxis. 3. Avoid nephrotoxic agents, Lasix per Dr. Garcia's recommendations. 4. Increase activity as tolerated. PT/OT/cardiac rehab following. Out of bed for all meals. 5. Encourage use of his incentive spirometry every hour while awake. 6. Continue to reinforce open heart discharge instructions. Shower daily, no lifting pushing and pulling anything greater than 10 pounds for 12 weeks. Continue to encourage use of his heart hugger. 7. GI and DVT prophylaxis. 8. Discharge planning in progress. Anticipate discharge to subacute rehab today. Cardiac surgery discharge instructions placed on discharge plan as well as follow-up appointments. 9. More recommendations to follow. Time with Patient: Greater than 30
[2018-11-21 11:47] VITALS: BP 131/60; TEMP 97.9
[2018-11-21 12:19] LABS: Glucose,Whole Blood 309 mg/dL (75-99)
--- NOTE | 2018-11-21 15:16 | P.DS ---
Providers Date of admission: 11/17/18 13:29 Expected date of discharge: 11/21/18 Attending physician: Bakari Murphy MD Consults: 11/15/18 11:53 Consult Physician Routine Consulting Provider: Robson Teixeira Consult Reason/Comments: MIGUEL ANGEL, request per surgery Do you want consulting provider notified?: Yes Consult Physician Stat Consulting Provider: Elgin Lozada Consult Reason/Comments: MIGUEL ANGEL in post operative patient Do you want consulting provider notified?: Already Contacted 11/17/18 10:37 Consult Physician Routine Consulting Provider: Eddi Martinez Consult Reason/Comments: Evaluate for placement to inpatient rehab Do you want consulting provider notified?: Yes Primary care physician: Jordan Patel Hospital Course: Discharge diagnosis -Acute renal failure: Probably due to excessive diuretic therapy . patient was started on IV fluids. DC'd IV fluids. Currently tolerating oral diet. and nephrology is following. Renal function is back to baseline. Patient was given 1 dose of IV Lasix. Pulmonary congestion is improving.. Patient will be continued on her Lasix upon discharge. - Metabolic acidosis secondary to acute kidney injury. Improved now. -Shortness of breath and secondary to mild left-sided pleural effusion and atelectasis no evidence of and pneumonia clinically will not require any antibiotics. Left-sided effusion is probably postoperative changes from his recent carotid thoracic surgery -, Mitral valve regurgitation with recent mitral valve. -Carotid disease with recent stent placement LAD and patient is on dual antiplatelet therapy which will be continued -Type 2 diabetes mellitus patient will be resumed on her his home regimen and the titrate insulin 8 depending on his blood sugars -Diabetic peripheral neuropathy -Obesity -Obstructive sleep apnea uses CPAP machine -Pulmonary hypertension -Hypertension: Patient is presently hypotensive -Hyperlipidemia -Chronic kidney disease stage IV baseline creatinine around1.5. Secondary to diabetic nephropathy Hospital course Patient is a pleasant 73-year-old male had a recent mitral 1 repair of the seventh on October 31 does have chronic diastolic dysfunction was on Lasix at home and chronic kidney disease stage IV with baseline creatinine around 2.5. Patient had lab work up done as an outpatient which showed highly elevated BUN/creatinine creatinine going up to 4.500 and be in up to 1 ET patient has some symptoms of shortness of breath since his discharge which is exertional without any cough or sputum production patient doesn't have leukocytosis no fever no other symptoms. His Rezulin being admitted for acute renal failure. Patient was started on IV fluids. Nephrology will be canceled it. 11/16/2018 Patient currently denied any complaints of chest pain or worsening shortness of breath. Patient is able to sit in a chair comfortably. Tolerating oral diet. Laboratory data showed BUN 153 and creatinine 3.18 which is trending down. 2-D echo cardiac exam showed normal ejection fraction at 60-60% with small pericardial effusion located near the left ventricle. Nephrology has seen the patient. No intervention for renal replacement therapy needed this time. Patient has been afebrile. 11/17/2018 Patient is currently sitting in a chair comfortably. No complaints of chest pain or shortness of breath. No nausea vomiting or abdominal pain. Tolerating oral diet. Creatinine level improved to 2.06 from 4.04 on admission. Potassium 5.5 today. Denied any complains of nausea vomiting or diarrhea. Patient will be continued on PT OT. Nephrology and CT surgery is on board. 11/18/2018 Patient says that his breathing is better. Still feels weak and shortness of breath. Renal function improved with creatinine level I.68 today. Potassium 5.6 Denied any complaints of chest pain. No nausea vomiting or diarrhea. Still having significant bilateral lower extremities edema but improved. CT surgery and nephrology is following. 11/19/2018 Patient denied any complaints of chest pain or worsening shortness of breath. Shortness of breath actually improved today. Renal function improved with creatinine 1.5. Patient says that he feels better today. Currently being evaluated for rehab transfer. Patient has been afebrile. No chest pain. No other acute overnight issues. 11/20/2018 Patient denied any complains of chest pain or worsening shortness of breath. Leg swelling is still present. Patient was given extra dose of IV Lasix. Otherwise renal function is stable. Nephrology is on board. Continued on PT OT and awaiting for rehab transfer. Tolerating oral diet. No nausea vomiting or abdominal pain or diarrhea. 11/21/2018 Patient says that his breathing is better today. No complaints of chest pain. Leg swelling is improving. No nausea vomiting or diarrhea. Nephrology is following. Creatinine level came down to 1.54 today. Patient is being discharged to rehab. Continue with oral Lasix and monitor renal function closely. Vital Signs 11/21/18 11/21/18 11/21/18 07:35 08:48 11:45 Temperature 97.4 F L 97.9 F Pulse Rate [ 65 65 65 Board Operator ] Respiratory 18 18 18 Rate Blood Pressure 142/95 131/60 [Left Arm] O2 Sat by Pulse 99 97 Oximetry PHYSICAL EXAMINATION: Patient is lying in the bed comfortably, no acute distress, awake alert and oriented.. HEENT: Normocephalic. Neck is supple. Pupils reactive. Nostrils clear. Oral cavity is moist. Ears reveal no drainage. Neck reveals no JVD, carotid bruits, or thyromegaly. CHEST EXAMINATION: Trachea is central. Surgical site wound healing well. Symmetrical expansion. Lung horan clear to auscultation and percussion. CARDIAC: Normal S1, S2 with no gallops. No murmurs ABDOMEN: Soft. Bowel sounds normal. No organomegaly. No abdominal bruits. Extremities: Bilateral lower extremities 2+ edema. Legs are wrapped for now. No clubbing or cyanosis Neurologically awake, alert, oriented x3 with well-coordinated movements. No focal deficits noted Skin: No rash or skin lesions. Psychiatric: Coperative. Nonsuicidal Musculoskeletal: No joint swelling or deformity. Normal range of motion. Patient Condition at Discharge: Serious Plan - Discharge Summary Discharge Rx Participant: No New Discharge Prescriptions: New Aspirin 81 mg PO DAILY chew Continue L.acidoph,Paracasei, B.lactis [Probiotic] 1 cap PO DAILY Ferrous Sulfate [Iron (65 MG Elemental)] 325 mg PO DAILY Cholecalciferol [Vitamin D3 (25 Mcg = 1000 Iu)] 2,000 unit PO DAILY Multivitamins, Thera [Multivitamin (formulary)] 1 tab PO DAILY Zinc 50 mg PO DAILY Albuterol Inhaler [Ventolin Hfa Inhaler] 1 - 2 puff INHALATION RT-Q6H PRN #1 inhaler PRN Reason: Shortness Of Breath Or Wheezing Furosemide [Lasix] 40 mg PO DAILY #30 tab Amiodarone [Cordarone] 200 mg PO DAILY #15 tab Insulin Lispro [humaLOG Kwikpen] 10 unit SQ AC-TID 30 Days #3 insuln.pen Insulin Detemir [Levemir Flextouch] 10 units SQ HS 30 Days #3 pen Metoprolol Tartrate [Lopressor] 50 mg PO BID #60 tab Clopidogrel [Plavix] 75 mg PO DAILY #30 tablet Sennosides-Docusate Sodium [Senokot-S] 2 tab PO HS PRN #14 tablet PRN Reason: Constipation Acetaminophen Tab [Tylenol] 1,000 mg PO Q6HR #120 tablet Discontinued Aspirin 325 mg PO DAILY #30 tab Pantoprazole Sodium [Protonix] 40 mg PO DAILY #30 tablet.dr Discharge Medication List Cholecalciferol [Vitamin D3 (25 Mcg = 1000 Iu)] 2,000 unit PO DAILY 01/04/16 [History] Ferrous Sulfate [Iron (65 MG Elemental)] 325 mg PO DAILY 01/04/16 [History] L.acidoph,Paracasei, B.lactis [Probiotic] 1 cap PO DAILY 01/04/16 [History] Multivitamins, Thera [Multivitamin (formulary)] 1 tab PO DAILY 01/09/17 [History] Zinc 50 mg PO DAILY 07/17/18 [History] Acetaminophen Tab [Tylenol] 1,000 mg PO Q6HR #120 tablet 11/11/18 [Rx] Albuterol Inhaler [Ventolin Hfa Inhaler] 1 - 2 puff INHALATION RT-Q6H PRN #1 inhaler 11/11/18 [Rx] Amiodarone [Cordarone] 200 mg PO DAILY #15 tab 11/11/18 [Rx] Clopidogrel [Plavix] 75 mg PO DAILY #30 tablet 11/11/18 [Rx] Furosemide [Lasix] 40 mg PO DAILY #30 tab 11/11/18 [Rx] Insulin Detemir [Levemir Flextouch] 10 units SQ HS 30 Days #3 pen 11/11/18 [Rx] Insulin Lispro [humaLOG Kwikpen] 10 unit SQ AC-TID 30 Days #3 insuln.pen 11/11/18 [Rx] Metoprolol Tartrate [Lopressor] 50 mg PO BID #60 tab 11/11/18 [Rx] Sennosides-Docusate Sodium [Senokot-S] 2 tab PO HS PRN #14 tablet 11/11/18 [Rx] Aspirin 81 mg PO DAILY chew 11/21/18 [Rx] Follow up Appointment(s)/Referral(s): Maxi Deng MD [STAFF PHYSICIAN] - 11/30/18 3:30 pm (Follow-up is with Marlen Zepeda NP) Jordan Patel III, MD [Primary Care Provider] - 1-2 days Sergey Celis DO [Doctor of Osteopathic Medicine] - 11/30/18 2:00 pm Elgin Lozada MD [STAFF PHYSICIAN] - 11/28/18 3:15 pm Activity/Diet/Wound Care/Special Instructions: CARDIAC SURGERY DISCHARGE INSTRUCTIONS: 1. No driving for 4 weeks, or until physician gives their ok. 2. The patient should sleep in their own bed, no medical bed needed. 3. Stairs are not an issue. If the bedroom is upstairs, it is advised that the patient go up at night and down in the morning for the first week. Go slowly, using handrail and take 1 step at a time. 4. GUERRERO hose are to be worn for 30 days or until physician discontinues. 5. Heart hugger is to be worn 100% of the time until physician discontinues .(except when showering) 6. No lifting, pushing, or pulling more than 10 pounds for 12 weeks. The physician will advise of any restriction changes. 7. The patient is expected to continue the prescribed walking program. 8. Continue pain control per as needed orders. 9. Continue with incentive spirometry and splinting/heart hugger until otherwise directed by the physician. 10. Must shower daily using liquid antibacterial soap and a separate white washcloth for each individual incision. 11. Routine sternal incision care. No powders, lotions, ointments on incisions. 12. Please call surgeon/RAILWAY SWITCH OPERATOR for temp greater than 101 F or purulent drainage from incisions. 13. All prescriptions given by surgeon for 30 days. Refills need to be filled through order entry specialist/primary care physician. 14. A Red armband has been placed on the patient. It should be worn for 30 days post surgery and will be removed by the cardiac surgeons. If an ER visit is necessary, please make sure the number on the Red armband is called. REHAB/HOME HEALTH SERVICES TO PROVIDE: RN SKILLED HOME CARE SERVICES FOR POST-OP SURGICAL PATIENTS WITH THE FOLLOWING: Coronary Artery Bypass Surgery (CABG), Mitral Valve Replacement/Repair ( MVR), Aortic Valve Replacement/Repair (AVR) RN TO CONTINUE EDUCATION FROM ``ROAD TO A HEALTH HEART PATIENT EDUCATION MANUAL (GIVEN TO PATIENT IN THE HOSPITAL) MEDICATION RECONCILIATION WITH EDUCATION NEEDED ON FIRST HOME VISIT EMPHASIZE IMPORTANCE OF WEARING BREAST SUPPORT/HEART HUGGER ENCOURAGE USE OF INCENTIVE SPIROMETER 10 X EVERY HOUR WHILE AWAKE ENCOURAGE UTILIZATION OF LOWER EXTREMITY COMPRESSION STOCKINGS/GUERRERO HOSE and ELEVATE LEGS ABOVE LEVEL OF HEART WHILE AT REST. ENCOURAGE AMBULATION 3-5x/day INCREASING TOLERATES, WHILE AVOID EXTREMES IN TEMPERATURE FREQUENCY: RN TO OPEN THE PATIENT WITHIN 24 HOURS OF DISCHARGE FROM REHAB WITH TELEHEALTH INSTALLED AT [facility] – [place], [place], RN TO VISIT 2-3 X A WEEK FOR 4 WEEKS ESTABLISHED BY PATIENT NEEDS. LABORATORY: CBC, CMP TO BE DRAWN PER REHAB PROTOCOL, (RAN STAT) FAX RESULTS TO [phone]. TELEHEALTH PARAMETERS: WEIGHT: NOTIFY MD OF WEIGHT GAIN OF 2 LBS IN 24 HOURS OR 5 LBS IN ONE WEEK HR: NOTIFY MD OF HR <55 BPM OR HR>100 BPM BP: NOTIFY MD IF BP <90/55 OR BP>140/100 O2 SAT: NOTIFY MD IF PO2<93% ON ROOM AIR SEND TELEHEALTH REPORT TO ASSOCIATE CHEMIST AND CARDIOVASCULAR SURGEON THE FIRST WEEK OF CARE AND THEN BI-WEEKLY. PLEASE ADDITIONALLY COMMUNICATE ANY ABNORMALS AND NEW FINDINGS TO THE SURGEONS OFFICE. Discharge Disposition: TRANSFER TO SNF/ECF
== END 2018-11-21 16:20 | DRG 682 ==
LOC: EC 10:28 → 3SCARD 12:25 → OBSVTOIN 11-17 13:29
PROVIDERS: ADMIT Internal Medicine; ATTEND Internal Medicine
DX: N17.0 Acute kidney failure with tubular necrosis (principal); I50.33 Acute on chronic diastolic (congestive) heart failure; E87.2 Acidosis; I13.0 Hypertensive heart and chronic kidney disease with heart failure and stage 1 through stage 4 chronic kidney disease, or unspecified chronic kidney disease; I31.3 Pericardial effusion (noninflammatory); J98.11 Atelectasis; T50.2X5A Adverse effect of carbonic-anhydrase inhibitors, benzothiadiazides and other diuretics, initial encounter; D63.8 Anemia in other chronic diseases classified elsewhere; E11.22 Type 2 diabetes mellitus with diabetic chronic kidney disease; E11.42 Type 2 diabetes mellitus with diabetic polyneuropathy; E61.1 Iron deficiency; E66.9 Obesity, unspecified; Z68.35 Body mass index [BMI] 35.0-35.9, adult; E78.5 Hyperlipidemia, unspecified; E86.9 Volume depletion, unspecified; E87.5 Hyperkalemia; G47.33 Obstructive sleep apnea (adult) (pediatric); Z99.89 Dependence on other enabling machines and devices; I25.10 Atherosclerotic heart disease of native coronary artery without angina pectoris; I27.20 Pulmonary hypertension, unspecified; I34.0 Nonrheumatic mitral (valve) insufficiency; I48.0 Paroxysmal atrial fibrillation; J44.9 Chronic obstructive pulmonary disease, unspecified; M19.90 Unspecified osteoarthritis, unspecified site; N18.4 Chronic kidney disease, stage 4 (severe); Z79.02 Long term (current) use of antithrombotics/antiplatelets; Z79.4 Long term (current) use of insulin; Z79.82 Long term (current) use of aspirin; Z79.899 Other long term (current) drug therapy; Z80.52 Family history of malignant neoplasm of bladder; Z82.49 Family history of ischemic heart disease and other diseases of the circulatory system; Z83.3 Family history of diabetes mellitus; Z87.891 Personal history of nicotine dependence; Z95.5 Presence of coronary angioplasty implant and graft; I95.9 Hypotension, unspecified; H26.9 Unspecified cataract
CPT/HCPCS: 36415; 71045; 71046; 76770; 80048; 80053; 81003; 82570; 82728; 83540; 83550; 83735; 84132; 84300; 84450; 84460; 85025; 85027; 87205; 93308; 94640; 94760; 96374; 99284

== ENCOUNTER 2018-11-29 12:51 | Inpatient (IN) | payer MEDICARE ==
[2018-11-29] MEDS ORDERED: ACETAMINOPHEN TAB 500 MG TAB PO STA (13:45)
--- NOTE | 2018-11-29 14:05 | ED ---
Weakness HPI - General Chief complaint: Weakness Stated complaint: Leg swelling, Weakness, fever Time Seen by Provider: 11/29/18 13:28 Source: patient, family Mode of arrival: wheelchair Limitations: no limitations - History of Present Illness Initial comments: The patient is a 73-year-old male with an extensive past medical history who presents to the emergency department from Dr. Teixeira's office. The patient recently had a mitral valve replacement done on October [address] Lozada. He has had a complicated course since his surgery was performed. He was discharged from the hospital on the and has been residing at [facility]. Reports that at home he has had increasing lower extremity edema. His lower extremities have been open and weeping. He denies any pustular drainage. He had an appointment today to see Dr. Teixeira in office. When the patient presented they found him to be weak with a fever. Because of the symptoms, the patient was transported to the emergency room for further evaluation. He denies a cough or shortness of breath. He does admit to increased frequency of urination. Denies any abdominal pain. No back or flank pain. No diarrhea, constipation, melanotic stools or hematochezia. He denies headaches. There are no other alleviating, precipitating or modifying factors - Related Data Home Medications Medication Instructions Recorded Confirmed Cholecalciferol [Vitamin D3 (25 2,000 unit PO DAILY@169901/04/16 11/29/18 Mcg = 1000 Iu)] Ferrous Sulfate [Iron (65 MG 325 mg PO DAILY@169901/04/16 11/29/18 Elemental)] L.acidoph,Paracasei, B.lactis 1 cap PO DAILY@169901/04/16 11/29/18 [Probiotic] Multivitamins, Thera [Multivitamin 1 tab PO DAILY@169901/09/17 11/29/18 (formulary)] Zinc 50 mg PO DAILY@169907/17/18 11/29/18 Acetaminophen-Codeine 300-30mg 1 - 2 tab PO Q6H PRN 11/29/18 11/29/18 [Tylenol w/codeine #3] Aspirin 81 mg PO DAILY@0 11/29/18 11/29/18 Bisacodyl [Dulcolax] 10 mg RECTAL DAILY PRN 11/29/18 11/29/18 Furosemide [Lasix] 40 mg PO BID@0600,1700 11/29/18 11/29/18 Magnesium Hydroxide [Milk of 2,400 mg PO DAILY PRN 11/29/18 11/29/18 Magnesia] Metoprolol Tartrate [Lopressor] 50 mg PO BID@0800,1700 11/29/18 11/29/18 Na Phos,M-B/Na Phos,Di-Ba [Fleet 133 ml RECTAL DAILY PRN 11/29/18 11/29/18 Adult] Previous Rx's Medication Instructions Recorded Acetaminophen Tab [Tylenol] 1,000 mg PO Q6HR #120 tablet 11/11/18 Albuterol Inhaler [Ventolin Hfa 1 - 2 puff INHALATION RT-Q6H PRN 11/11/18 Inhaler] #1 inhaler Amiodarone [Cordarone] 200 mg PO DAILY #15 tab 11/11/18 Clopidogrel [Plavix] 75 mg PO DAILY #30 tablet 11/11/18 Insulin Detemir [Levemir Flextouch] 10 units SQ HS 30 Days #3 pen 11/11/18 Insulin Lispro [humaLOG Kwikpen] 10 unit SQ AC-TID 30 Days #3 11/11/18 insuln.pen Sennosides-Docusate Sodium 2 tab PO HS PRN #14 tablet 11/11/18 [Senokot-S] Allergies Allergy/AdvReac Type Severity Reaction Status Date / Time No Known Allergies Allergy Verified 11/29/18 15:04 Review of Systems ROS Statement: Those systems with pertinent positive or pertinent negative responses have been documented in the HPI. ROS Other: All systems not noted in ROS Statement are negative. Past Medical History Past Medical History: Atrial Fibrillation, Coronary Artery Disease (CAD), Heart Failure, COPD, Diabetes Mellitus, Eye Disorder, Hyperlipidemia, Hypertension, Osteoarthritis (OA), Renal Disease, Sleep Apnea/CPAP/BIPAP Additional Past Medical History / Comment(s): SOB w/exertion,CATARACTS, sleep apnea without home CPAP use History of Any Multi-Drug Resistant Organisms: None Reported Past Surgical History: Adenoidectomy, Heart Catheterization, Heart Catheterization With Stent, Tonsillectomy Additional Past Surgical History / Comment(s): FAUSTINO,COLONOSCOPY, heart cath 09/11/18, heart catheterization 09/24/2018 with drug-eluting stent placed to the LAD mitral valve repair on 10/31/2018. Past Anesthesia/Blood Transfusion Reactions: No Reported Reaction Additional Past Anesthesia/Blood Transfusion Reaction / Comment(s): no hx blood transfusion Date of Last Stent Placement:: September 2018 Past Psychological History: No Psychological Hx Reported Smoking Status: Former smoker Past Alcohol Use History: Rare Past Drug Use History: None Reported - Past Family History Father Family Medical History: Cancer, Diabetes Mellitus Additional Family Medical History / Comment(s): BLADDER CANCER Mother Family Medical History: Congestive Heart Failure (CHF) Additional Family Medical History / Comment(s): AT AGE 68 General Exam Limitations: no limitations General appearance: alert, in no apparent distress Head exam: Present: atraumatic, normocephalic, normal inspection Eye exam: Present: normal appearance, PERRL, EOMI. Absent: scleral icterus, conjunctival injection, periorbital swelling ENT exam: Present: normal exam, mucous membranes moist Neck exam: Present: normal inspection. Absent: tenderness, meningismus, lymphadenopathy Respiratory exam: Present: wheezes (bilateral lung bases). Absent: respiratory distress, rales, rhonchi, stridor Cardiovascular Exam: Present: regular rate, normal rhythm, normal heart sounds. Absent: systolic murmur, diastolic murmur, rubs, gallop, clicks GI/Abdominal exam: Present: soft, normal bowel sounds. Absent: distended, tenderness, guarding, rebound, rigid Extremities exam: Present: full ROM, normal capillary refill, pedal edema (weeping bilateral lower extremities. marked pedal edema. warmth and erythema present. 2+ DP and PT pulses). Absent: tenderness, joint swelling, calf tenderness Back exam: Present: normal inspection Neurological exam: Present: alert, oriented X3, CN II-XII intact Psychiatric exam: Present: normal affect, normal mood Skin exam: Present: warm, dry, intact, normal color. Absent: rash Course Vital Signs 11/29/18 11/29/18 11/29/18 12:53 16:31 20:00 Temperature 102.8 F H 99.2 F Pulse Rate 77 64 Pulse Rate [ 72 Pulse Oximetery ] Respiratory 20 18 16 Rate Blood Pressure 120/55 125/60 Blood Pressure [Left Arm] O2 Sat by Pulse 92 L 97 Oximetry 11/29/18 11/30/18 21:09 00:00 Temperature 101.2 F H 98.5 F Pulse Rate Pulse Rate [ 72 72 Pulse Oximetery ] Respiratory 16 16 Rate Blood Pressure Blood Pressure 145/75 130/61 [Left Arm] O2 Sat by Pulse 98 98 Oximetry EKG Findings - EKG Comments: EKG Findings:: EKG demonstrates a sinus rhythm with a ventricular rate of 74. There is a first-degree AV block. CT interval of 238. QRS 102. QTC of 401. His Q-wave present in lead 3. There is inverted T-wave in 1, aVL, V5 and V6. This is compared to patient's previous EKG from November 07. Q-wave is present however T-wave inversions are new. Medical Decision Making - Medical Decision Making Upon arrival the patient is placed into room 6. He is hooked up to continuous pulse ox and cardiac monitoring. Vitals are obtained and the patient is febrile with a 102.8 temperature. The patient is given antipyretics for fever control. We did obtain IV access. Laboratory studies were conducted. He also has a chest x-ray performed. Laboratory studies were conducted. White blood cell count is 11.7. Hemoglobin of 8.2 which is at the patient's baseline. Patient's creatinine is 1.9. Lactic acid of 2.1. AST and ALTs are elevated at 117 and 90. Troponin is 0.040. BNP 11,500 C-reactive protein is 327. A chest x-ray was performed which demonstrates a new left basilar opacity which may represent atelectasis or confluent pulmonary edema. Pneumonia less likely. Mild pulmonary vascular congestion enlarged cardiac mediastinal silhouette suggesting decompensated congestive heart failure. venous duplex of the patient's bilateral lower extremities reveals no evidence of DVT. I did inform the patient of the findings. I did recommend admission to the hospital for which he did agree. I did call discuss the case with Dr. whyte who accepted admission of the patient. I will place Dr. Lozada, Dr. Teixeira and Dr. Burrlel on consult. Patient was given and Vanco for antibiotic coverage. He did remain in stable condition is awaiting a bed on the floor - Lab Data Result diagrams: 12/03/18 04:28 12/03/18 04:28 Lab Results 11/29/18 11/29/18 11/29/18 Range/Units 13:55 13:55 13:55 WBC 11.7 H (3.8-10.6) k/uL RBC 2.64 L (4.30-5.90) m/uL Hgb 8.2 L (13.0-17.5) gm/dL Hct 26.3 L (39.0-53.0) % MCV 99.7 (80.0-100.0) fL MCH 31.1 (25.0-35.0) pg MCHC 31.2 (31.0-37.0) g/dL RDW 18.5 H (11.5-15.5) % Plt Count 192 (150-450) k/uL Neutrophils % 89 % Lymphocytes % 4 % Monocytes % 5 % Eosinophils % 1 % Basophils % 0 % Neutrophils # 10.4 H (1.3-7.7) k/uL Lymphocytes # 0.5 L (1.0-4.8) k/uL Monocytes # 0.6 (0-1.0) k/uL Eosinophils # 0.1 (0-0.7) k/uL Basophils # 0.0 (0-0.2) k/uL Hypochromasia Moderate Anisocytosis Slight Macrocytosis Moderate PT (9.0-12.0) sec INR (<1.2) APTT (22.0-30.0) sec Sodium 135 L (137-145) mmol/L Potassium 5.1 (3.5-5.1) mmol/L Chloride 102 (98-107) mmol/L Carbon Dioxide 26 (22-30) mmol/L Anion Gap 7 mmol/L BUN 44 H (9-20) mg/dL Creatinine 1.91 H (0.66-1.25) mg/dL Est GFR (CKD-EPI)AfAm 39 (>60 ml/min/1.73 sqM) Est GFR (CKD-EPI)NonAf 34 (>60 ml/min/1.73 sqM) Glucose 164 H (74-99) mg/dL Lactic Ac Sepsis Rflx Plasma Lactic Acid Guy 2.1 H* (0.7-2.0) mmol/L Calcium 8.9 (8.4-10.2) mg/dL Magnesium 1.7 (1.6-2.3) mg/dL Iron (65-175) ug/dL TIBC (228-460) ug/dL Iron Saturation (15.00-50.00) Ferritin (22.0-322.0) ng/mL Total Bilirubin 1.1 (0.2-1.3) mg/dL AST 117 H (17-59) U/L ALT 90 H (21-72) U/L Alkaline Phosphatase 150 H (38-126) U/L Creatine Kinase 51 L (55-170) U/L Troponin I (0.000-0.034) ng/mL C-Reactive Protein 327.4 H (<10.0) mg/L NT-Pro-B Natriuret Pep pg/mL Total Protein 6.5 (6.3-8.2) g/dL Albumin 3.6 (3.5-5.0) g/dL TSH 3.960 (0.465-4.680) mIU/L Urine Color Urine Appearance (Clear) Urine pH (5.0-8.0) Ur Specific Rutledge (1.001-1.035) Urine Protein (Negative) Urine Glucose (UA) (Negative) Urine Ketones (Negative) Urine Blood (Negative) Urine Nitrite (Negative) Urine Bilirubin (Negative) Urine Urobilinogen (<2.0) mg/dL Ur Leukocyte Esterase (Negative) 11/29/18 11/29/18 11/29/18 Range/Units 13:55 13:55 13:55 WBC (3.8-10.6) k/uL RBC (4.30-5.90) m/uL Hgb (13.0-17.5) gm/dL Hct (39.0-53.0) % MCV (80.0-100.0) fL MCH (25.0-35.0) pg MCHC (31.0-37.0) g/dL RDW (11.5-15.5) % Plt Count (150-450) k/uL Neutrophils % % Lymphocytes % % Monocytes % % Eosinophils % % Basophils % % Neutrophils # (1.3-7.7) k/uL Lymphocytes # (1.0-4.8) k/uL Monocytes # (0-1.0) k/uL Eosinophils # (0-0.7) k/uL Basophils # (0-0.2) k/uL Hypochromasia Anisocytosis Macrocytosis PT 12.2 H (9.0-12.0) sec INR 1.2 H (<1.2) APTT 26.7 (22.0-30.0) sec Sodium (137-145) mmol/L Potassium (3.5-5.1) mmol/L Chloride (98-107) mmol/L Carbon Dioxide (22-30) mmol/L Anion Gap mmol/L BUN (9-20) mg/dL Creatinine (0.66-1.25) mg/dL Est GFR (CKD-EPI)AfAm (>60 ml/min/1.73 sqM) Est GFR (CKD-EPI)NonAf (>60 ml/min/1.73 sqM) Glucose (74-99) mg/dL Lactic Ac Sepsis Rflx Plasma Lactic Acid Guy (0.7-2.0) mmol/L Calcium (8.4-10.2) mg/dL Magnesium (1.6-2.3) mg/dL Iron (65-175) ug/dL TIBC (228-460) ug/dL Iron Saturation (15.00-50.00) Ferritin (22.0-322.0) ng/mL Total Bilirubin (0.2-1.3) mg/dL AST (17-59) U/L ALT (21-72) U/L Alkaline Phosphatase (38-126) U/L Creatine Kinase (55-170) U/L Troponin I 0.040 H* (0.000-0.034) ng/mL C-Reactive Protein (<10.0) mg/L NT-Pro-B Natriuret Pep 13703 pg/mL Total Protein (6.3-8.2) g/dL Albumin (3.5-5.0) g/dL TSH (0.465-4.680) mIU/L Urine Color Urine Appearance (Clear) Urine pH (5.0-8.0) Ur Specific Rutledge (1.001-1.035) Urine Protein (Negative) Urine Glucose (UA) (Negative) Urine Ketones (Negative) Urine Blood (Negative) Urine Nitrite (Negative) Urine Bilirubin (Negative) Urine Urobilinogen (<2.0) mg/dL Ur Leukocyte Esterase (Negative) 11/29/18 11/29/18 11/29/18 Range/Units 13:55 14:05 14:30 WBC (3.8-10.6) k/uL RBC (4.30-5.90) m/uL Hgb (13.0-17.5) gm/dL Hct (39.0-53.0) % MCV (80.0-100.0) fL MCH (25.0-35.0) pg MCHC (31.0-37.0) g/dL RDW (11.5-15.5) % Plt Count (150-450) k/uL Neutrophils % % Lymphocytes % % Monocytes % % Eosinophils % % Basophils % % Neutrophils # (1.3-7.7) k/uL Lymphocytes # (1.0-4.8) k/uL Monocytes # (0-1.0) k/uL Eosinophils # (0-0.7) k/uL Basophils # (0-0.2) k/uL Hypochromasia Anisocytosis Macrocytosis PT (9.0-12.0) sec INR (<1.2) APTT (22.0-30.0) sec Sodium (137-145) mmol/L Potassium (3.5-5.1) mmol/L Chloride (98-107) mmol/L Carbon Dioxide (22-30) mmol/L Anion Gap mmol/L BUN (9-20) mg/dL Creatinine (0.66-1.25) mg/dL Est GFR (CKD-EPI)AfAm (>60 ml/min/1.73 sqM) Est GFR (CKD-EPI)NonAf (>60 ml/min/1.73 sqM) Glucose (74-99) mg/dL Lactic Ac Sepsis Rflx Y Plasma Lactic Acid Guy (0.7-2.0) mmol/L Calcium (8.4-10.2) mg/dL Magnesium (1.6-2.3) mg/dL Iron 18 L (65-175) ug/dL TIBC 298 (228-460) ug/dL Iron Saturation 6.04 L (15.00-50.00) Ferritin 1042.1 H (22.0-322.0) ng/mL Total Bilirubin (0.2-1.3) mg/dL AST (17-59) U/L ALT (21-72) U/L Alkaline Phosphatase (38-126) U/L Creatine Kinase (55-170) U/L Troponin I (0.000-0.034) ng/mL C-Reactive Protein (<10.0) mg/L NT-Pro-B Natriuret Pep pg/mL Total Protein (6.3-8.2) g/dL Albumin (3.5-5.0) g/dL TSH (0.465-4.680) mIU/L Urine Color Yellow Urine Appearance Clear (Clear) Urine pH 5.0 (5.0-8.0) Ur Specific [place]ledge 1.018 (1.001-1.035) Urine Protein Trace H (Negative) Urine Glucose (UA) Negative (Negative) Urine Ketones Negative (Negative) Urine Blood Negative (Negative) Urine Nitrite Negative (Negative) Urine Bilirubin Negative (Negative) Urine Urobilinogen <2.0 (<2.0) mg/dL Ur Leukocyte Esterase Negative (Negative) Disposition Clinical Impression: Congestive heart failure, Post-operative state, Elevated serum creatinine, Fever, Bilateral lower leg cellulitis Disposition: ADMITTED IP TO THIS [facility] Condition: Serious Is patient prescribed a controlled substance at d/c from ED?: No Decision to Admit Reason: Admit from EC Decision Date: 11/29/18 Decision Time: 16:44
[2018-11-29 14:13] LABS: Anisocytosis Slight; Basophils % (A) 0 %; Eosinophils # (A) 0.1 k/uL (0-0.7); Eosinophils % (A) 1 %; HCT 26.3 % (39.0-53.0); HGB 8.2 gm/dL (13.0-17.5); Hypochromasia Moderate; Lymphocytes # (A) 0.5 k/uL (1.0-4.8); Lymphocytes % (A) 4 %; MCH 31.1 pg (25.0-35.0); MCHC 31.2 g/dL (31.0-37.0); MCV 99.7 fL (80.0-100.0); Macrocytosis Moderate; Mean Platelet Volume 7.8; Monocytes # (A) 0.6 k/uL (0-1.0); Monocytes % (A) 5 %; Neutrophils # (A) 10.4 k/uL (1.3-7.7); Neutrophils % (A) 89 %; Platelet Count 192 k/uL (150-450); RBC 2.64 m/uL (4.30-5.90); RDW 18.5 % (11.5-15.5); WBC 11.7 k/uL (3.8-10.6)
[2018-11-29 14:24] LABS: Appearance,Urine Clear (Clear); Bilirubin,Urine Negative (Negative); Blood,Urine Negative (Negative); Color,Urine Yellow; Glucose,Urine (UA) Negative (Negative); Ketones,Urine Negative (Negative); Leukocyte Esterase,Urine Negative (Negative); Nitrite,Urine Negative (Negative); Protein,Urine Trace (Negative); Specific Gravity,Urine 1.018 (1.001-1.035); Urobilinogen,Urine <2.0 mg/dL (<2.0)
--- NOTE | 2018-11-29 14:27 | XR ---
EXAMINATION TYPE: XR chest 2V DATE OF EXAM: 11/29/2018 COMPARISON: 11/21/2018 HISTORY: Lower extremity swelling and chest pain TECHNIQUE: Frontal and lateral views of the chest are obtained. FINDINGS: There is an enlarged cardiac mediastinal silhouette. Very mild pulmonary vascular congesti on and left basilar airspace disease. No sizable pneumothorax or pleural effusion. Cardiomediastinal silhouette displays post CABG changes. No acute osseous pathology. IMPRESSION: New left basilar opacity may represent atelectasis or confluent pulmonary edema. Pneumon ia is less likely. Mild pulmonary vascular congestion and enlarged cardiomediastinal silhouette sugge st decompensated congestive heart failure.
[2018-11-29 14:31] LABS: INR 1.2 (<1.2); Partial Thromboplastin Time 26.7 sec (22.0-30.0); Prothrombin Time 12.2 sec (9.0-12.0)
[2018-11-29 14:32] LABS: Albumin 3.6 g/dL (3.5-5.0); Calcium 8.9 mg/dL (8.4-10.2); Magnesium 1.7 mg/dL (1.6-2.3); Potassium 5.1 mmol/L (3.5-5.1); Total Bilirubin 1.1 mg/dL (0.2-1.3); Total Protein 6.5 g/dL (6.3-8.2)
[2018-11-29 15:52] LABS: C Reactive Protein 327.4 mg/L (<10.0)
[2018-11-29] MEDS ORDERED: VANCOMYCIN 1,000 MG in SODIUM CHLORIDE 0.9% 250 ML IVPB STA (16:35)
[2018-11-29] MEDS ORDERED: VANCOMYCIN IV PER PHARMACY 1 EACH MISC MISCELLANE PRN (16:39)
[2018-11-29] MEDS ORDERED: PIPERACILLIN-TAZOBACTAM 3.375 GM in SODIUM CHLORIDE 0.9% 100 ML IVPB STA (16:40)
[2018-11-29] MEDS ORDERED: NALOXONE 0.4 MG/ML 1 ML VIAL IV PRN (16:44)
[2018-11-29] MEDS ORDERED: IBUPROFEN 400 MG TAB PO PRN (16:44)
[2018-11-29] MEDS ORDERED: VANCOMYCIN 2,000 MG in SODIUM CHLORIDE 0.9% 500 ML 500 ML IVPB ONE (16:45)
[2018-11-29] MEDS: METOPROLOL TARTRATE 50 MG TAB PO SCH (17:47)
[2018-11-29] MEDS: INSULIN ASPART (NovoLOG) 100 UNIT/ML VIAL SQ SCH (17:48)
--- NOTE | 2018-11-29 17:48 | US ---
EXAMINATION TYPE: US venous doppler duplex LE DATE OF EXAM: 11/29/2018 5:29 PM COMPARISON: NONE CLINICAL HISTORY: Pain. Open heart on October 31 2018. No hx of blood clots. Swelling. SIDE PERFORMED: Bilateral TECHNIQUE: The lower extremity deep venous system is examined utilizing real time linear array sonog maurilio with graded compression, doppler sonography and color-flow sonography. VESSELS IMAGED: External Iliac Vein (EIV) Common Femoral Vein Deep Femoral Vein Greater Saphenous Vein * Femoral Vein Popliteal Vein Small Saphenous Vein * Proximal Calf Veins (* superficial vessels) Suboptimal visualization due to edema and patient position Right Leg: Negative for DVT Left Leg: Negative for DVT IMPRESSION: No evidence of deep venous thrombosis in both legs.
[2018-11-29] MEDS: ACETAMINOPHEN TAB 325 MG TAB PO PRN (20:51)
[2018-11-29 20:58] LABS: Glucose,Whole Blood 164 mg/dL (75-99)
[2018-11-29] MEDS ORDERED: SENNOSIDES-DOCUSATE SODIUM 1 EACH TAB PO PRN (21:45)
[2018-11-29] MEDS: INSULIN DETEMIR (LEVEMIR) 100 UNIT/ML SYR SQ SCH (22:07)
[2018-11-29] MEDS: FUROSEMIDE 10 MG/ML 4 ML VIAL IV SCH (22:07)
--- NOTE | 2018-11-29 22:52 | CT ---
EXAM: CT Head Without Intravenous Contrast CLINICAL HISTORY: weakness TECHNIQUE: Axial computed tomography images of the head/brain without intravenous contrast. CTDI is 49.1 mGy and DLP is 1168.4 mGy-cm. This CT exam was performed using one or more of the following dose reduction techniques: automated exposure control, adjustment of the mA and/or kV according to patient size, and/or use of iterative reconstruction technique. COMPARISON: No relevant prior studies available. FINDINGS: No intracranial hemorrhage, abnormal intra- or extra-axial collections or parenchymal lesions are seen. There are involutional changes with prominence of the sulci, basal cisterns and ventricles. Scattered white matter hypoattenuations are present, likely from small vessel disease. The bautista-white differentiation is preserved. No evidence of mass effect, midline shift, or edema. The osseous structures are unremarkable. The visualized portions of the paranasal sinuses are clear. IMPRESSION: 1. No acute intracranial process. 2. Involutional changes with small vessel disease.
--- NOTE | 2018-11-30 00:33 | HP ---
HISTORY AND PHYSICAL DATE OF SERVICE: 11/29/2018 CHIEF COMPLAINT: Weakness, fever, oozing from the legs. HISTORY OF PRESENT ILLNESS: This 73-year-old gentleman with a past medical history of multiple medical problems including recent cardiac surgery including mitral valve replacement, history of recent myocardial infarction, stent placement, pulmonary hypertension, history of chronic CHF, history of chronic kidney disease, hyperlipidemia, GERD, being followed by Dr. Patel in the outpatient setting was being managed in [facility] at this time because of significant weakness. The patient was apparently doing good but for the last couple of days patient developed increasing swelling and as well as blistering of the leg associated with fever. The patient also developed significant weakness as well as increasing patient unable to move the legs and the patient came to [facility] and was admitted for further evaluation and treatment. There is no history of headache, loss of consciousness, chest pain, palpitations, hematochezia or melena at this time. PAST MEDICAL HISTORY: History of past medical history of atrial fibrillation, history of CAD, history of CHF, COPD, diabetes type 2, hypertension, hyperlipidemia, history of DJD, sleep apnea, history of CAD/stent. MEDICATIONS: Prior to admission include home medications are: 1. Singular 50 mg p.o. daily. 2. Senokot-S 2 tablets p.o. q.h.s. p.r.n. 3. Fleets 133 daily p.r.n. 4. Multivitamins. 5. Lopressor 50 mg p.o. b.i.d. 6. Milk of magnesia 2.4 p.o. daily. 7. Probiotic 1 capsule p.o. daily. 8. Humalog 10 units subcu a.c. t.i.d. 9. Levemir 10 units subcu q.h.s. 10.Lasix 40 mg p.o. b.i.d. 11.Iron 320 mg p.o. daily. 12.Plavix 75 mg p.o. daily. 13.Vitamin D3 2000 daily. 14.Dulcolax 10 mg daily p.r.n. 15.Aspirin 81 mg p.o. daily. 16.Cordarone 200 mg p.o. daily. 17.Ventolin HFA 1-2 puffs q.6h p.r.n. 18.Tylenol No.3 1-2 q.6h p.r.n. 19.Tylenol 1000 mg q.6h p.r.n. ALLERGIES: None. FAMILY HISTORY: History of diabetes mellitus, bladder cancer. SOCIAL HISTORY: Previous history of smoking. No history of alcohol intake. REVIEW OF SYSTEMS: ENT diminished vision. No diminished hearing. CARDIOVASCULAR system as mentioned earlier. GASTROINTESTINAL: As mentioned earlier. : No dysuria or hematuria. CENTRAL NERVOUS SYSTEM: No numbness or weakness. ALLERGY/IMMUNOLOGY: No asthma or hayfever. MUSCULOSKELETAL as mentioned earlier. HEMATOLOGY/ONCOLOGY: No history of anemia. ENDOCRINE: As mentioned earlier. CONSTITUTIONAL: As mentioned earlier. DERMATOLOGY as mentioned earlier. RHEUMATOLOGY: Negative. PSYCHIATRY as mentioned. PHYSICAL EXAMINATION: Alert and oriented x2. Pulse 72. Blood pressure is 140/70, respiration 16, temperature 101.2, pulse ox 98% on 2 L. HEENT: Conjunctivae normal. Oral mucosa moist. NECK is no jugular venous distention. No carotid bruit. No lymph node enlargement. Facial puffiness present. CARDIOVASCULAR SYSTEM: Ejection systolic murmur. No S3, no S4. RESPIRATION: Breath sounds diminished in the bases. A few scattered rhonchi and crackles. ABDOMEN: Soft, obese. Abdominal wall edema present. LEGS: Bilateral leg edema. Significant blisters weeping also present. NERVOUS SYSTEM: Higher functions as mentioned earlier. Moves all four limbs. Diffuse weakness present, especially in the lower limbs grade 4/5. SKIN as mentioned earlier. JOINTS: No active deforming arthropathy. Lymphatics: No lymph nodes palpable in the neck, axillae or groin. LABS: WBC 7.2, hemoglobin is 8.2 and sodium 135. Troponin 0.0040. AST and ALT noted. Plasma lactic acid 2.1. ASSESSMENT: 1. Acute bilateral leg cellulitis with sepsis present on admission. 2. Diffuse generalized weakness with possible myopathy. 3. Increased WBC. 4. Anemia of chronic disease. 5. Hyponatremia. 6. Increased creatinine with chronic kidney disease stage III. 7. Elevated AST/ALT possibly hepatitis. 8. Troponin 0.043, indeterminate. 9. Congestive heart failure with chronic diastolic dysfunction, recent mitral valve replacement for mitral regurgitation. 10.History of coronary artery disease/stent. 11.History of pulmonary hypertension. 12.Hyperlipidemia. 13.History of gastroesophageal reflux disease. 14.Diabetes mellitus type 2 with diabetic nephropathy. 15.Gait dysfunction. 16.Change in mental status, acute metabolic encephalopathy multifactorial. 17.History of sleep apnea. 18.History of degenerative joint disease. RECOMMENDATIONS AND DISCUSSION: In this 73-year-old gentleman who presented with multiple complex medical issues, at this time, I recommend to continue the current medications, management and symptomatic treatment. We will obtain cultures and also we will initiate broad-spectrum IV antibiotics. Infectious Disease and Nephrology will be consulted. Other than that, symptomatic treatment will be provided. PT/OT evaluation. Monitor blood sugars closely. Resume the home medications. Overall prognosis extremely guarded because of multiple complex medical issues. Further recommendations to follow. We will also provide diuretics also. Cardiology also will be consulted. Further recommendations to follow. A copy of this dictation being forwarded to Dr. Patel who is the primary physician. LAWRENCE / AMARA: [id number] /
[2018-11-30] MEDS: PIPERACILLIN-TAZOBACTAM 3.375 GM in SODIUM CHLORIDE 0.9% 100 ML IVPB SCH ×3 (02:00→16:15)
[2018-11-30 03:31] LABS: Anisocytosis Slight; Basophils # (A) 0.1 k/uL (0-0.2); Basophils % (A) 1 %; Eosinophils # (A) 0.2 k/uL (0-0.7); Eosinophils % (A) 2 %; HCT 23.8 % (39.0-53.0); HGB 7.6 gm/dL (13.0-17.5); Hypochromasia Slight; Lymphocytes # (A) 0.5 k/uL (1.0-4.8); Lymphocytes % (A) 5 %; MCH 31.4 pg (25.0-35.0); MCHC 31.9 g/dL (31.0-37.0); MCV 98.3 fL (80.0-100.0); Macrocytosis Slight; Mean Platelet Volume 8.1; Monocytes # (A) 0.5 k/uL (0-1.0); Monocytes % (A) 5 %; Neutrophils # (A) 9.3 k/uL (1.3-7.7); Neutrophils % (A) 86 %; Platelet Count 172 k/uL (150-450); RBC 2.42 m/uL (4.30-5.90); RDW 18.2 % (11.5-15.5); WBC 10.8 k/uL (3.8-10.6)
[2018-11-30 03:34] LABS: Calcium 8.6 mg/dL (8.4-10.2); Potassium 5.1 mmol/L (3.5-5.1)
[2018-11-30] MEDS: FUROSEMIDE 10 MG/ML 4 ML VIAL IV SCH (06:13)
[2018-11-30 06:47] LABS: Glucose,Whole Blood 183 mg/dL (75-99)
[2018-11-30] MEDS: INSULIN ASPART (NovoLOG) 100 UNIT/ML VIAL SQ SCH ×3 (07:00→17:46)
[2018-11-30] MEDS ORDERED: MAGNESIUM HYDROXIDE 2,400 MG/10 ML CUP PO PRN (09:00)
[2018-11-30] MEDS: Acetaminophen-Codeine 300-30mg TAB PO PRN ×2 (09:03→20:58)
[2018-11-30] MEDS: AMIODARONE 200 MG TAB PO SCH (09:03)
[2018-11-30] MEDS: METOPROLOL TARTRATE 50 MG TAB PO SCH (09:03)
[2018-11-30] MEDS: CLOPIDOGREL 75 MG TAB PO SCH (09:03)
--- NOTE | 2018-11-30 10:33 | P.CRDCN ---
History of Present Illness Consult date: 11/30/18 Requesting physician: Bakari E Sheet Consult reason: congestive heart failure Chief complaint: Bilateral leg swelling, ulcerations, fever History of present illness: This is a 73-year-old gentleman with history of severe concentric mitral valve regurgitation with severely calcified mitral annulus, status post mitral valve repair on October 31 with postoperative transaminitis and paroxysmal atrial fibrillation, he has known history of coronary artery disease with prior stenting of the LAD in September, chronic diastolic congestive heart failure, hypertension, hyperlipidemia, diabetes, peripheral neuropathy, chronic kidney disease, COPD, sleep apnea, pulmonary hypertension, and prior nicotine dependence. He was discharged to rehab at [facility], has noticed increase in swelling in his bilateral lower extremities with associated open ulcerated areas which were weeping. He also noticed himself to be getting more short of breath than his usual and quite weak. He did go to see cardiothoracic surgery who recommended that he see Dr. Teixeira, that appointment was made for yesterday. After being seen and evaluated by Dr. Teixeira he was referred to come to the hospital for admission. Chest x-ray showed new left basilar [place] which may represent atelectasis or pulmonary edema. Pneumonia is less likely. Mild pulmonary vascular congestion and enlarged cardiomediastinal silhouette. EKG shows normal sinus rhythm with first-degree AV block and nonspecific ST-T wave changes. Venous duplex study does not reveal evidence of a DVT in either leg. CAT scan of the brain was performed which did not reveal any acute intracranial process. Blood pressure on arrival here 120/50 with a heart rate in the 70s, temperature on arrival 102.8, 92% on room air. Blood cultures are pending, wound culture pending, urine culture pending. Operatory data, white blood cell count 11.7, hemoglobin 8.2, 7.6 this morning, platelet count 172, sodium 136, potassium 5.1, BUN 47, creatinine 1.8. Lactic acid 2.1, AST 117, ALT 90, alk phos 150, BNP 11,500, troponins 0.040, 0.035, 0.029. Patient was seen and examined this morning sitting up in the chair at bedside, he does state that he is starting to feel better than his presentation here, but continues to feel significantly weak. Still complains of some shortness of breath. He has bilateral leg wraps on, according to the daughter his swelling is significantly less although the patient continues to have at least 3+ bilateral pitting edema this morning. Past Medical History Past Medical History: Atrial Fibrillation, Coronary Artery Disease (CAD), Heart Failure, COPD, Diabetes Mellitus, Eye Disorder, Hyperlipidemia, Hypertension, Osteoarthritis (OA), Renal Disease, Sleep Apnea/CPAP/BIPAP Additional Past Medical History / Comment(s): SOB w/exertion,CATARACTS, sleep ap [place] without home CPAP use History of Any Multi-Drug Resistant Organisms: None Reported Past Surgical History: Adenoidectomy, Heart Catheterization, Heart Catheterization With Stent, Tonsillectomy Additional Past Surgical History / Comment(s): FAUSTINO,COLONOSCOPY, heart cath 09/11/18, heart catheterization 09/24/2018 with drug-eluting stent placed to the LAD mitral valve repair on 10/31/2018. Past Anesthesia/Blood Transfusion Reactions: No Reported Reaction Additional Past Anesthesia/Blood Transfusion Reaction / Comment(s): no hx blood transfusion Date of Last Stent Placement:: September 2018 Past Psychological History: No Psychological Hx Reported Smoking Status: Former smoker Past Alcohol Use History: Rare Past Drug Use History: None Reported - Past Family History Father Family Medical History: Cancer, Diabetes Mellitus Additional Family Medical History / Comment(s): BLADDER CANCER Mother Family Medical History: Congestive Heart Failure (CHF) Additional Family Medical History / Comment(s): AT AGE 68 Medications and Allergies Home Medications Medication Instructions Recorded Confirmed Type Cholecalciferol [Vitamin D3 (25 2,000 unit PO DAILY@169901/04/16 11/29/18 History Mcg = 1000 Iu)] Ferrous Sulfate [Iron (65 MG 325 mg PO DAILY@169901/04/16 11/29/18 History Elemental)] L.acidoph,Paracasei, B.lactis 1 cap PO DAILY@0 01/04/16 11/29/18 History [Probiotic] Multivitamins, Thera [Multivitamin 1 tab PO DAILY@169901/09/17 11/29/18 History (formulary)] Zinc 50 mg PO DAILY@1700 07/17/18 11/29/18 History Acetaminophen Tab [Tylenol] 1,000 mg PO Q6HR #120 tablet 11/11/18 11/29/18 Rx Albuterol Inhaler [Ventolin Hfa 1 - 2 puff INHALATION RT-Q6H PRN 11/11/18 11/29/18 Rx Inhaler] #1 inhaler Amiodarone [Cordarone] 200 mg PO DAILY #15 tab 11/11/18 11/29/18 Rx Clopidogrel [Plavix] 75 mg PO DAILY #30 tablet 11/11/18 11/29/18 Rx Insulin Detemir [Levemir Flextouch] 10 units SQ HS 30 Days #3 pen 11/11/18 Rx Insulin Lispro [humaLOG Kwikpen] 10 unit SQ AC-TID 30 Days #3 11/11/18 11/29/18 Rx insuln.pen Sennosides-Docusate Sodium 2 tab PO HS PRN #14 tablet 11/11/18 11/29/18 Rx [Senokot-S] Acetaminophen-Codeine 300-30mg 1 - 2 tab PO Q6H PRN 11/29/18 11/29/18 History [Tylenol w/codeine #3] Aspirin 81 mg PO DAILY@1700 11/29/18 11/29/18 History Bisacodyl [Dulcolax] 10 mg RECTAL DAILY PRN 11/29/18 11/29/18 History Furosemide [Lasix] 40 mg PO BID@0600,1700 11/29/18 11/29/18 History Magnesium Hydroxide [Milk of 2,400 mg PO DAILY PRN 11/29/18 11/29/18 History Magnesia] Metoprolol Tartrate [Lopressor] 50 mg PO BID@0800,1700 11/29/18 11/29/18 History Na Phos,M-B/Na Phos,Di-Ba [Fleet 133 ml RECTAL DAILY PRN 11/29/18 11/29/18 History Adult] Allergies Allergy/AdvReac Type Severity Reaction Status Date / Time No Known Allergies Allergy Verified 11/29/18 15:04 Physical Exam Vitals: Vital Signs Temp Pulse Pulse Resp BP BP BP 11/30/18 08:01 98.7 F 66 14 112/53 11/30/18 05:16 97.7 F 11/30/18 04:00 99 F 76 18 109/57 11/30/18 00:00 98.5 F 72 16 130/61 11/29/18 21:09 101.2 F H 72 16 145/75 11/29/18 20:00 72 16 11/29/18 16:31 99.2 F 64 18 125/60 11/29/18 12:53 102.8 F H 77 20 120/55 Pulse Ox 11/30/18 08:01 99 11/30/18 05:16 11/30/18 04:00 96 11/30/18 00:00 98 11/29/18 21:09 98 11/29/18 20:00 11/29/18 16:31 97 11/29/18 12:53 92 L Intake and Output 11/29/18 11/30/18 11/30/18 22:59 06:59 14:59 Intake Total 150 120 Balance 150 120 Intake: Oral 150 120 Other: Voiding Method Urinal Urinal Diaper Diaper # Voids 1 Weight 105 kg PHYSICAL EXAMINATION: GENERAL: 73-year-old gentleman in no acute distress at the time of my examination HEENT: Head is atraumatic, normocephalic. Pupils equal, round. Sclera anicteric. Conjunctiva are clear. Mucous membranes of the mouth are moist. Neck is supple. There is no elevated jugular venous pressure. No carotid bruit is heard. HEART EXAMINATION: Heart S1 and S2 systolic murmur is heard CHEST EXAMINATION: Lungs reveal rales bilaterally with diminished air entry to the bases ABDOMEN: Soft, obese nontender. Bowel sounds are heard. No organomegaly noted. EXTREMITIES: 2+ peripheral pulses with 2-3+ evidence of peripheral edema, bilateral Zi wraps in place. NEUROLOGIC patient is awake, alert and oriented 3 . . Results 11/30/18 03:01 11/30/18 03:01 Cardiac Enzymes 11/29/18 11/29/18 11/29/18 Range/Units 13:55 13:55 20:58 AST 117 H (17-59) U/L Troponin I 0.040 H* 0.035 H* (0.000-0.034) ng/mL 11/30/18 Range/Units 03:01 AST (17-59) U/L Troponin I 0.029 (0.000-0.034) ng/mL Coagulation 11/29/18 Range/Units 13:55 PT 12.2 H (9.0-12.0) sec APTT 26.7 (22.0-30.0) sec CBC 11/29/18 11/30/18 Range/Units 13:55 03:01 WBC 11.7 H 10.8 H (3.8-10.6) k/uL RBC 2.64 L 2.42 L (4.30-5.90) m/uL Hgb 8.2 L 7.6 L (13.0-17.5) gm/dL Hct 26.3 L 23.8 L (39.0-53.0) % Plt Count 192 172 (150-450) k/uL Comprehensive Metabolic Panel 11/29/18 11/30/18 Range/Units 13:55 03:01 Sodium 135 L 136 L (137-145) mmol/L Potassium 5.1 5.1 (3.5-5.1) mmol/L Chloride 102 104 (98-107) mmol/L Carbon Dioxide 26 23 (22-30) mmol/L BUN 44 H 47 H (9-20) mg/dL Creatinine 1.91 H 1.80 H (0.66-1.25) mg/dL Glucose 164 H 197 H (74-99) mg/dL Calcium 8.9 8.6 (8.4-10.2) mg/dL AST 117 H (17-59) U/L ALT 90 H (21-72) U/L Alkaline Phosphatase 150 H (38-126) U/L Total Protein 6.5 (6.3-8.2) g/dL Albumin 3.6 (3.5-5.0) g/dL Current Medications Generic Name Dose Route Start Last Admin Trade Name Freq PRN Reason Stop Dose Admin Acetaminophen 650 mg 11/29/18 16:44 11/29/18 20:51 Tylenol Tab PO 650 mg Q6HR PRN Administration Mild Pain or Fever > 100.5 Acetaminophen/Codeine Phosphate 1 - 2 each 11/29/18 21:45 11/30/18 09:03 Tylenol #3 PO 2 each Q6H PRN Administration Pain Albuterol Sulfate 2.5 mg 11/29/18 21:45 Ventolin Nebulized INHALATION RT-Q6H PRN Shortness Of Breath Or Wheezing Amiodarone HCl 200 mg 11/30/18 09:00 11/30/18 09:03 Cordarone PO 200 mg DAILY JAIME Administration Lipase/Protease/Amylase 1 each 11/30/18 17:00 Fabricio Palafox 5,000 Unit Capsule PO DAILY@1700 [facility] Aspirin 81 mg 11/30/18 17:00 Aspirin PO DAILY@1700 [facility] Bisacodyl 10 mg 11/29/18 21:45 Dulcolax RECTAL DAILY PRN Constipation Cholecalciferol 2,000 unit 11/30/18 17:00 Vitamin D3 (25 Mcg = 1000 Iu) PO DAILY@1700 [facility] Clopidogrel Bisulfate 75 mg 11/30/18 09:00 11/30/18 09:03 Plavix PO 75 mg DAILY [facility] Administration Ferrous Sulfate 325 mg 11/30/18 17:00 Feosol PO DAILY@1700 [facility] Furosemide 40 mg 11/29/18 22:00 11/30/18 06:13 Lasix IV 40 mg Q8H [facility] Administration Piperacillin Sod/Tazobactam 100 mls @ 25 mls/hr 11/30/18 00:00 11/30/18 09:02 Sod 3.375 gm/ Sodium Chloride IVPB 25 mls/hr Q8HR [facility] Administration Vancomycin HCl 1,750 mg/ 500 mls @ 167 mls/hr 11/30/18 18:00 Sodium Chloride IVPB Q24H [facility] Ibuprofen 400 mg 11/29/18 16:44 11/30/18 02:01 Motrin PO 400 mg Q6HR PRN Administration Mild Pain or Fever > 100.5 Insulin Aspart 10 unit 11/29/18 17:30 11/30/18 07:00 Novolog SQ 10 unit AC-TID [facility] Administration Insulin Detemir 10 unit 11/29/18 21:00 11/29/18 22:07 Levemir SQ 10 unit HS [facility] Administration Magnesium Hydroxide 2,400 mg 11/30/18 09:00 Milk Of Magnesia PO DAILY PRN Constipation Metoprolol Tartrate 50 mg 11/29/18 17:00 11/30/18 09:03 Lopressor PO 50 mg BID@0800,1700 [facility] Administration Multivitamins 1 each 11/30/18 17:00 Theragran PO DAILY@1700 [facility] Naloxone HCl 0.2 mg 11/29/18 16:44 Narcan IV Q2M PRN Opioid Reversal Senna/Docusate Sodium 2 each 11/29/18 21:45 Senokot-S PO HS PRN Constipation Silver Sulfadiazine 1 applic 11/30/18 09:00 11/30/18 09:11 Silvadene Cream TOPICAL Not Given DAILY JAIME Intake and Output 11/29/18 11/30/18 11/30/18 22:59 06:59 14:59 Intake Total 150 120 Balance 150 120 Intake: Oral 150 120 Other: Voiding Method Urinal Urinal Diaper Diaper # Voids 1 Weight 105 kg 11/30/18 03:01 11/30/18 03:01 EKG Interpretations (text) EKG shows a sinus rhythm with first-degree AV block and nonspecific ST-T wave changes Assessment and Plan Plan: Assessment and plan #1 acute bilateral leg swelling with associated cellulitis and sepsis, fever, elevated white blood cell count, elevated lactic acid #2 diastolic congestive heart failure acute on chronic #3 generalized weakness #4 coronary artery disease with recent stenting in September of this year #5 anemia #6 elevated liver enzymes, likely secondary To congestion #7 acute on chronic kidney disease #8 hyperlipidemia #9 diabetes #10 sleep apnea #11 abnormal troponin with no significant rise and fall pattern, likely secondary to abnormal renal function and sepsis. Plan We will request a repeat echocardiogram with Doppler study be performed. Contin ue IV Lasix, continue beta sun, amiodarone, baby aspirin, Plavix, discontinue Motrin, patient is currently not on an ZI inhibitor because of abnormal renal function. The monitor the intake and output along with daily weights and daily lytes BUN and creatinine. Blood cultures urine cultures and wound cultures are pending, patient has been initiated on antibiotics. DNP note has been reviewed, I agree with a documented findings and plan of care. Patient was seen and examined.
[2018-11-30 11:46] LABS: Glucose,Whole Blood 165 mg/dL (75-99)
--- NOTE | 2018-11-30 11:51 | P.NPCON ---
History of Present Illness - Reason for Consult acute renal failure, chronic renal failure - History of Present Illness Reason for consultation: Acute kidney injury on chronic kidney disease. History of present illness: Patient is a 73-year-old male seen in renal consultation for acute kidney injury on chronic kidney disease. Patient had a stent placed to the LAD on 09/24/2018. He then underwent mitral valve repair on 10/31/2018. During that admission he had developed acute blood loss anemia and required blood transfusions. During that admission his creatinine was in the range of 1.8-2.2. He was then admitted on 11/15/2018 due to acute kidney injury with creatinine of 4.1. Renal function had improved with IV hydration. On 11/19/2018 his creatinine was 1.5. Patient was discharged tomorrow. Yesterday he was seen in the office and was noted to be extremely weak and also had a temperature of 102F. He was subsequently sent to the hospital. He is noted to have severe edema and is currently maintained on IV Lasix. Urine output is good. No hematuria or dysuria. Denies vomiting. Oral intake is poor. Ultrasound from last month revealed normal-sized kidneys without any evidence of hydronephrosis. UA has been benign. Vital signs are stable. General: The patient appeared well nourished and normally developed. HEENT: Head exam is unremarkable. Neck is without jugular venous distension. LUNGS: Lungs are clear to auscultation and percussion. Breath sounds decreased. HEART: Rate and Rhythm are regular. First and second heart sounds normal. No murmurs, rubs or gallops. ABDOMEN: Abdominal exam reveals normal bowel sounds. Non-tender and non- distended. EXTREMITITES: 2+ edema. Graft. No obvious drainage. Past Medical History Past Medical History: Atrial Fibrillation, Coronary Artery Disease (CAD), Heart Failure, COPD, Diabetes Mellitus, Eye Disorder, Hyperlipidemia, Hypertension, Osteoarthritis (OA), Renal Disease, Sleep Apnea/CPAP/BIPAP Additional Past Medical History / Comment(s): SOB w/exertion,CATARACTS, sleep apnea without home CPAP use History of Any Multi-Drug Resistant Organisms: None Reported Past Surgical History: Adenoidectomy, Heart Catheterization, Heart Catheterization With Stent, Tonsillectomy Additional Past Surgical History / Comment(s): FAUSTINO,COLONOSCOPY, heart cath 09/11/18, heart catheterization 09/24/2018 with drug-eluting stent placed to the LAD mitral valve repair on 10/31/2018. Past Anesthesia/Blood Transfusion Reactions: No Reported Reaction Additional Past Anesthesia/Blood Transfusion Reaction / Comment(s): no hx blood transfusion Date of Last Stent Placement:: September 2018 Past Psychological History: No Psychological Hx Reported Smoking Status: Former smoker Past Alcohol Use History: Rare Past Drug Use History: None Reported - Past Family History Father Family Medical History: Cancer, Diabetes Mellitus Additional Family Medical History / Comment(s): BLADDER CANCER Mother Family Medical History: Congestive Heart Failure (CHF) Additional Family Medical History / Comment(s): AT AGE 68 Medications and Allergies Home Medications Medication Instructions Recorded Confirmed Type Cholecalciferol [Vitamin D3 (25 2,000 unit PO DAILY@1700 01/04/16 11/29/18 History Mcg = 1000 Iu)] Ferrous Sulfate [Iron (65 MG 325 mg PO DAILY@1700 01/04/16 11/29/18 History Elemental)] L.acidoph,Paracasei, B.lactis 1 cap PO DAILY@1700 01/04/16 11/29/18 History [Probiotic] Multivitamins, Thera [Multivitamin 1 tab PO DAILY@1700 01/09/17 11/29/18 History (formulary)] Zinc 50 mg PO DAILY@1700 07/17/18 11/29/18 History Acetaminophen Tab [Tylenol] 1,000 mg PO Q6HR #120 tablet 11/11/18 11/29/18 Rx Albuterol Inhaler [Ventolin Hfa 1 - 2 puff INHALATION RT-Q6H PRN 11/11/18 11/29/18 Rx Inhaler] #1 inhaler Amiodarone [Cordarone] 200 mg PO DAILY #15 tab 11/11/18 11/29/18 Rx Clopidogrel [Plavix] 75 mg PO DAILY #30 tablet 11/11/18 11/29/18 Rx Insulin Detemir [Levemir Flextouch] 10 units SQ HS 30 Days #3 pen 11/11/18 11/29/18 Rx Insulin Lispro [humaLOG Kwikpen] 10 unit SQ AC-TID 30 Days #3 11/11/18 11/29/18 Rx insuln.pen Sennosides-Docusate Sodium 2 tab PO HS PRN #14 tablet 11/11/18 11/29/18 Rx [Senokot-S] Acetaminophen-Codeine 300-30mg 1 - 2 tab PO Q6H PRN 11/29/18 11/29/18 History [Tylenol w/codeine #3] Aspirin 81 mg PO DAILY@1700 11/29/18 11/29/18 History Bisacodyl [Dulcolax] 10 mg RECTAL DAILY PRN 11/29/18 11/29/18 History Furosemide [Lasix] 40 mg PO BID@0600,1700 11/29/18 11/29/18 History Magnesium Hydroxide [Milk of 2,400 mg PO DAILY PRN 11/29/18 11/29/18 History Magnesia] Metoprolol Tartrate [Lopressor] 50 mg PO BID@0800,1700 11/29/18 11/29/18 History Na Phos,M-B/Na Phos,Di-Ba [Fleet 133 ml RECTAL DAILY PRN 11/29/18 11/29/18 History Adult] Allergies Allergy/AdvReac Type Severity Reaction Status Date / Time No Known Allergies Allergy Verified 11/29/18 15:04 Physical Exam Vitals: Vital Signs Temp Pulse Pulse Resp BP BP BP 11/30/18 08:01 98.7 F 66 14 112/53 11/30/18 05:16 97.7 F 11/30/18 04:00 99 F 76 18 109/57 11/30/18 00:00 98.5 F 72 16 130/61 11/29/18 21:09 101.2 F H 72 16 145/75 11/29/18 20:00 72 16 11/29/18 16:31 99.2 F 64 18 125/60 11/29/18 12:53 102.8 F H 77 20 120/55 Pulse Ox 11/30/18 08:01 99 11/30/18 05:16 11/30/18 04:00 96 11/30/18 00:00 98 11/29/18 21:09 98 11/29/18 20:00 11/29/18 16:31 97 11/29/18 12:53 92 L Intake and Output 11/29/18 11/30/18 11/30/18 22:59 06:59 14:59 Intake Total 150 120 Balance 150 120 Intake: Oral 150 120 Other: Voiding Method Urinal Urinal Diaper Diaper # Voids 1 Weight 105 kg 105 kg Results - Lab Results Most recent lab results Calcium 8.6 mg/dL (8.4-10.2) 11/30/18 03:01 Magnesium 1.7 mg/dL (1.6-2.3) 11/29/18 13:55 11/30/18 03:01 11/30/18 03:01 Assessment and Plan Plan: Assessment: 1. Acute kidney injury mostly prerenal secondary to cardiorenal syndrome. Creatinine was 1.9 on admission and is 1.8 today. UA is quite benign. No evidence of hydronephrosis on ultrasound from last month. 2. Chronic kidney disease stage III. Baseline creatinine near 1.5. 3. Volume overload. 4. Coronary artery disease status post stenting. 5. 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 6. Insulin-dependent diabetes mellitus. 7. Lower extremity cellulitis maintained on IV antibiotics. 8. Anemia of chronic kidney disease. Rule out iron deficiency. Plan: Maintain Lasix 40 mg IV 3 times daily. Follow-up cultures. Check iron studies. Add Aranesp. Repeat electrolytes in the morning. Thank you for the consultation. I will continue to follow the patient with you during his hospital stay.
[2018-11-30] MEDS ORDERED: SODIUM CHLORIDE 0.9% 500 ML 500 ML IV ONE (12:41)
--- NOTE | 2018-11-30 12:42 | ECHOF ---
Referral Reason:chf MEASUREMENTS -------- HEIGHT: 167.6 cm WEIGHT: 104.8 kg BP: 112/53 IVSd: 1.2 cm (0.6 - 1.1) LVIDd: 5.3 cm (3.9 - 5.3) LVPWd: 1.4 cm (0.6 - 1.1) IVSs: 2.2 cm LVIDs: 3.2 cm LVPWs: 2.0 cm Ao Diam: 2.9 cm (2.0 - 3.7) AV Cusp: 1.7 cm (1.5 - 2.6) LA Diam: 5.2 cm (2.7 - 3.8) MV E Hunter: 1.65 m/s MV DecT: 355 ms MV A Hunter: 0.91 m/s MV E/A Ratio: 1.81 RAP: 5.00 mmHg RVSP: 52.41 mmHg FINDINGS -------- Resting bradycardia (HR<60bpm). This was a technically adequate study. limited study due to patient sitting up The left ventricular size is normal. There is mild concentric left ventricular hypertrophy. Overa ll left ventricular systolic function is low-normal with, an EF between 50 - 55 %. There is mild aortic valve sclerosis without stenosis. Severe mitral annular calcification present. Moderate mitral regurgitation is present. Mild-to-mo derate mitral stenosis , with a MVA of 2.1cm (by PHT) MV repair Moderate tricuspid regurgitation present. There is moderate to severe pulmonary hypertension. The right ventricular systolic pressure, as measured by Doppler, is 52.41mmHg. CONCLUSIONS -------- 1. Resting bradycardia (HR<60bpm). 2. This was a technically adequate study. 3. limited study due to patient sitting up 4. The left ventricular size is normal. 5. There is mild concentric left ventricular hypertrophy. 6. Overall left ventricular systolic function is low-normal with, an EF between 50 - 55 %. 7. There is mild aortic valve sclerosis without stenosis. 8. Severe mitral annular calcification present. 9. Moderate mitral regurgitation is present. 10. [id number] mitral stenosis. 11. , with a MVA of 2.1cm (by PHT) 12. MV repair 13. Moderate tricuspid regurgitation present. 14. There is moderate to severe pulmonary hypertension. 15. The right ventricular systolic pressure, as measured by Doppler, is 52.41mmHg. HEALTHCARE SCIENCE SPECIALIST: Regla Floyd RDCS
[2018-11-30 14:17] LABS: Glucose,Whole Blood 113 mg/dL (75-99)
[2018-11-30] MEDS: MULTIVITAMINS, THERA 1 EACH TAB PO SCH ×2 (16:05→17:53)
[2018-11-30] MEDS: LIPASE 5,000/PROTEASE 17,000/AMYLASE 24,000 PO SCH ×2 (16:05→17:53)
[2018-11-30] MEDS: FERROUS SULFATE 325 MG TAB PO SCH ×2 (16:05→17:53)
[2018-11-30] MEDS: ASPIRIN 81 MG PO SCH ×2 (16:05→17:53)
[2018-11-30] MEDS: CHOLECALCIFEROL 1,000 UNIT TAB PO SCH ×2 (16:05→17:53)
[2018-11-30] MEDS: DARBEPOETIN ALFA 40 MCG/0.4 ML SYRINGE SQ SCH (16:15)
--- NOTE | 2018-11-30 16:21 | P.PN ---
Subjective Progress Note Date: 11/30/18 Principal diagnosis: This is a 73-year-old male with a past medical history of multiple medical problems with recent cardiac surgery including mitral valve replacement, stent placement, myocardial infarction, pulmonary hypertension and was recently admitted for an increase in weakness with swelling and blistering of the lower legs with fever and is being closely monitored. Patient is sitting up in the chair with legs elevated sleeping but easily arousable. Family is at the bedside. Bilateral lower extremities are wrapped with Zi wraps and elevated at this time. Extremely guarded prognosis REVIEW OF SYSTEMS: ENT: diminished vision, denies diminished hearing. CARDIOVASCULAR: denies chest pain or palpitations RESPIRATORY: denies labored breathing, GI: No nausea, vomiting or diarrhea. : No dysuria or retention. NERVOUS SYSTEM: No numbness, reports weakness. CONSTITUTIONAL: reports lethargy and weakness DERMATOLOGY: reports swelling and drainage of the lower extremities Active Medications Acetaminophen (Tylenol Tab) 650 mg PO Q6HR PRN PRN Reason: Mild Pain or Fever > 100.5 Last Admin: 11/29/18 20:51 Dose: 650 mg Documented by: Acetaminophen/Codeine Phosphate (Tylenol #3) 1 - 2 each PO Q6H PRN PRN Reason: Pain Last Admin: 11/30/18 09:03 Dose: 2 each Documented by: Albuterol Sulfate (Ventolin Nebulized) 2.5 mg INHALATION RT-Q6H PRN PRN Reason: Shortness Of Breath Or Wheezing Amiodarone HCl (Cordarone) 200 mg PO DAILY [facility] Last Admin: 11/30/18 09:03 Dose: 200 mg Documented by: Lipase/Protease/Amylase (Zenpep Dr 5,000 Unit Capsule) 1 each PO DAILY@1700 [facility] Last Admin: 11/30/18 16:05 Dose: Not Given Documented by: Aspirin (Aspirin) 81 mg PO DAILY@1700 [facility] Last Admin: 11/30/18 16:05 Dose: Not Given Documented by: Bisacodyl (Dulcolax) 10 mg RECTAL DAILY PRN PRN Reason: Constipation Cholecalciferol (Vitamin D3 (25 Mcg = 1000 Iu)) 2,000 unit PO DAILY@1700 [facility] Last Admin: 11/30/18 16:05 Dose: Not Given Documented by: Clopidogrel Bisulfate (Plavix) 75 mg PO DAILY [facility] Last Admin: 11/30/18 09:03 Dose: 75 mg Documented by: Darbepoetin Ruddy (Aranesp) 40 mcg SQ Q7D [facility] Ferrous Sulfate (Feosol) 325 mg PO DAILY@1700 [facility] Last Admin: 11/30/18 16:05 Dose: Not Given Documented by: Piperacillin Sod/Tazobactam (Sod 3.375 gm/ Sodium Chloride) 100 mls @ 25 mls/hr IVPB Q8HR [facility] Last Admin: 11/30/18 09:02 Dose: 25 mls/hr Documented by: Vancomycin HCl 1,750 mg/ (Sodium Chloride) 500 mls @ 167 mls/hr IVPB Q24H [facility] Insulin Aspart (Novolog) 10 unit SQ AC-TID [facility] Last Admin: 11/30/18 11:49 Dose: 10 unit Documented by: Insulin Detemir (Levemir) 10 unit SQ HS [facility] Last Admin: 11/29/18 22:07 Dose: 10 unit Documented by: Magnesium Hydroxide (Milk Of Magnesia) 2,400 mg PO DAILY PRN PRN Reason: Constipation Multivitamins (Theragran) 1 each PO DAILY@1700 [facility] Last Admin: 11/30/18 16:05 Dose: Not Given Documented by: Naloxone HCl (Narcan) 0.2 mg IV Q2M PRN PRN Reason: Opioid Reversal Senna/Docusate Sodium (Senokot-S) 2 each PO HS PRN PRN Reason: Constipation Silver Sulfadiazine (Silvadene Cream) 1 applic TOPICAL DAILY [facility] Last Admin: 11/30/18 09:11 Dose: Not Given Documented by: Objective - Vital Signs Vital signs: Vital Signs Temp 97.2 F L 11/30/18 14:10 Pulse 59 L 11/30/18 15:45 Resp 16 11/30/18 15:45 BP 102/53 11/30/18 15:45 Pulse Ox 95 11/30/18 15:45 Intake & Output 11/29/18 11/30/18 11/30/18 18:59 06:59 18:59 Intake Total 150 145 Output Total 750 Balance 150 -605 Weight 102.058 kg 105 kg 105 kg Intake: IV 25 0.9 25 Oral 150 120 Output: Urine 750 Other: Voiding Method Urinal Indwelling Catheter Diaper # Voids 1 - Exam Gen: This is a 73-year-old male sitting up in the chair with legs elevated in no acute distress. Patient is sleeping but arousable. Vital signs are stable. Temp is 98.7 oral, pulse is 66, respirations are 14, blood pressure is 112/53, oxygen saturation is 99% on 2 L nasal cannula HEENT: Head is atraumatic, normocephalic. Pupils equal, round. Sclerae is anicteric. NECK: Supple. No JVD. No lymphadenopathy. No thyromegaly. LUNGS: Diminished breath sounds at the bases. No wheezes or rhonchi. No intercostal retractions. HEART: S1 and S2 are muffled ABDOMEN: Soft. Bowel sounds are present. No masses. No tenderness. EXTREMITIES: Mild pedal edema. Bilateral lower extremity swelling with oozing noted of the left lower region. Zi wrap is intact. No calf tenderness. NEUROLOGICAL: Patient is sleeping but arousable, alert and oriented x3. Cranial nerves 2 through 12 are grossly intact. - Labs CBC & Chem 7: 11/30/18 03:01 11/30/18 03:01 Labs: Abnormal Lab Results - Last 24 Hours (Table) 11/29/18 11/29/18 11/29/18 Range/Units 13:55 20:57 20:58 WBC (3.8-10.6) k/uL RBC (4.30-5.90) m/uL Hgb (13.0-17.5) gm/dL Hct (39.0-53.0) % RDW (11.5-15.5) % Neutrophils # (1.3-7.7) k/uL Lymphocytes # (1.0-4.8) k/uL Sodium (137-145) mmol/L BUN (9-20) mg/dL Creatinine (0.66-1.25) mg/dL Glucose (74-99) mg/dL POC Glucose (mg/dL) 164 H (75-99) mg/dL Troponin I 0.035 H* (0.000-0.034) ng/mL C-Reactive Protein 327.4 H (<10.0) mg/L 11/30/18 11/30/18 11/30/18 Range/Units 03:01 03:01 06:45 WBC 10.8 H (3.8-10.6) k/uL RBC 2.42 L (4.30-5.90) m/uL Hgb 7.6 L (13.0-17.5) gm/dL Hct 23.8 L (39.0-53.0) % RDW 18.2 H (11.5-15.5) % Neutrophils # 9.3 H (1.3-7.7) k/uL Lymphocytes # 0.5 L (1.0-4.8) k/uL Sodium 136 L (137-145) mmol/L BUN 47 H (9-20) mg/dL Creatinine 1.80 H (0.66-1.25) mg/dL Glucose 197 H (74-99) mg/dL POC Glucose (mg/dL) 183 H (75-99) mg/dL Troponin I (0.000-0.034) ng/mL C-Reactive Protein (<10.0) mg/L 11/30/18 11/30/18 Range/Units 11:44 14:15 WBC (3.8-10.6) k/uL RBC (4.30-5.90) m/uL Hgb (13.0-17.5) gm/dL Hct (39.0-53.0) % RDW (11.5-15.5) % Neutrophils # (1.3-7.7) k/uL Lymphocytes # (1.0-4.8) k/uL Sodium (137-145) mmol/L BUN (9-20) mg/dL Creatinine (0.66-1.25) mg/dL Glucose (74-99) mg/dL POC Glucose (mg/dL) 165 H 113 H (75-99) mg/dL Troponin I (0.000-0.034) ng/mL C-Reactive Protein (<10.0) mg/L Microbiology - Last 24 Hours (Table) 11/29/18 22:30 Gram Stain - Preliminary Ankle - Left Wound Culture - Preliminary 11/29/18 22:30 Urine Culture - Preliminary Urine,Clean Catch Assessment and Plan Assessment: Acute bilateral leg cellulitis with sepsis, present on admission Diffuse generalized weakness with possible myopathy Increased WBC Anemia of chronic disease Hyponatremia Increased creatinine with chronic kidney disease stage III Elevated AST, ALT, possibly hepatitis Troponin 0.043, indeterminate Congestive heart failure with chronic diastolic dysfunction, recent mitral valve replacement for mitral regurgitation History of coronary artery disease/stent History pulmonary hypertension Hyperlipidemia History of gastroesophageal reflux disease Diabetes mellitus type 2 with diabetic nephropathy Gait dysfunction Change in mental status, acute metabolic encephalopathy, multi-factorial History of sleep apnea history of degenerative joint disease Full code Recommendations and discussion: Recommend to continue current medications, management, and symptomatically treatment. Will continue to monitor vital signs and labs closely Patient will continue on broad-spectrum IV antibiotics and infectious diseases consulted. Nephrology is following. PT/OT is following. Cardiology was consulted. After talking with nursing staff this morning patient will be moved to the ICU for patel se monitoring due to repeated low blood pressure readings. Due to multiple complex medical issues overall prognosis is extremely guarded. Further recommendations to follow.
[2018-11-30 17:16] LABS: Glucose,Whole Blood 104 mg/dL (75-99)
--- NOTE | 2018-11-30 17:24 | P.GSCN ---
History of Present Illness Consult date: 11/30/18 Reason for Consult: Known to cardiothoracic surgery service, recent mitral valve repair. Requesting physician: Alba Steele History of present illness: This is a 73-year-old gentleman who is followed by Dr. Patel on an outpatient basis. His past medical history significant for severe eccentric mitral valve regurgitation with severely calcified mitral valve annulus, status post complex mitral valve repair on 10/31/2018, coronary artery disease with recent drug- eluting stent placed to the left anterior descending coronary artery September 2018, chronic diastolic heart failure, hypertension, hyperlipidemia, type 2 diabetes mellitus with peripheral neuropathy, chronic kidney disease with a baseline creatinine around 2.0, moderate chronic obstructive pulmonary disease, obstructive sleep apnea without home CPAP use, hypertension, obesity, previous tobacco dependence and postoperative transaminitis and paroxysmal atrial fibrillation. Recently, the patient has been at [facility] for further rehabilitation needs due to significant weakness postoperative mitral valve repair. The patient reports that he has been doing quite well at rehab until the last couple of days, as he developed significant weakness to his bilateral lower extremities and +2 to +3 edema to his bilateral lower extremities with blistering and a fever. He denies any complaints of cough, shortness of breath, headache, constipation, or diarrhea. Due to the above-mentioned symptoms the patient presented to the emergency department here at [facility] for further evaluation and treatment. A consult was placed to Dr. Lozada from cardiothoracic surgery as the patient is known to our service due to his recent mitral valve repair surgery. Review of Systems A 14 point review of systems was completed and was negative except as mentioned in the HPI. Past Medical History Past Medical History: Atrial Fibrillation, Coronary Artery Disease (CAD), Heart Failure, COPD, Diabetes Mellitus, Eye Disorder, Hyperlipidemia, Hypertension, Liver Disease (Elevation in his AST and ALT), Osteoarthritis (OA), Renal Disease, Sleep Apnea/CPAP/BIPAP Additional Past Medical History / Comment(s): SOB w/exertion,CATARACTS, sleep apnea without home CPAP use History of Any Multi-Drug Resistant Organisms: None Reported Past Surgical History: Adenoidectomy, Heart Catheterization, Heart Catheteri zation With Stent, Tonsillectomy Additional Past Surgical History / Comment(s): FAUSTINO,COLONOSCOPY, heart cath 09/11/18, heart catheterization 09/24/2018 with drug-eluting stent placed to the LAD, mitral valve repair on 10/31/2018. Past Anesthesia/Blood Transfusion Reactions: No Reported Reaction Additional Past Anesthesia/Blood Transfusion Reaction / Comm: no hx blood transfusion Date of Last Stent Placement:: September 2018 Past Psychological History: No Psychological Hx Reported Smoking Status: Former smoker Past Alcohol Use History: None Reported, Rare Past Drug Use History: None Reported - Past Family History Father Family Medical History: Cancer, Diabetes Mellitus Additional Family Medical History / Comment(s): BLADDER CANCER Mother Family Medical History: Congestive Heart Failure (CHF) Additional Family Medical History / Comment(s): AT AGE 68 Medications and Allergies Home Medications Medication Instructions Recorded Confirmed Type Cholecalciferol [Vitamin D3 (25 2,000 unit PO DAILY@1700 01/04/16 11/29/18 History Mcg = 1000 Iu)] Ferrous Sulfate [Iron (65 MG 325 mg PO DAILY@1700 01/04/16 11/29/18 History Elemental)] L.acidoph,Paracasei, B.lactis 1 cap PO DAILY@1700 01/04/16 11/29/18 History [Probiotic] Multivitamins, Thera [Multivitamin 1 tab PO DAILY@1700 01/09/17 11/29/18 History (formulary)] Zinc 50 mg PO DAILY@1700 07/17/18 11/29/18 History Acetaminophen Tab [Tylenol] 1,000 mg PO Q6HR #120 tablet 11/11/18 11/29/18 Rx Albuterol Inhaler [Ventolin Hfa 1 - 2 puff INHALATION RT-Q6H PRN 11/11/18 11/29/18 Rx Inhaler] #1 inhaler Amiodarone [Cordarone] 200 mg PO DAILY #15 tab 11/11/18 11/29/18 Rx Clopidogrel [Plavix] 75 mg PO DAILY #30 tablet 11/11/18 11/29/18 Rx Insulin Detemir [Levemir Flextouch] 10 units SQ HS 30 Days #3 pen 11/11/1811/29 Rx Insulin Lispro [humaLOG Kwikpen] 10 unit SQ AC-TID 30 Days #3 11/11/18 11/29/18 Rx insuln.pen Sennosides-Docusate Sodium 2 tab PO HS PRN #14 tablet 11/11/18 11/29/18 Rx [Senokot-S] Acetaminophen-Codeine 300-30mg 1 - 2 tab PO Q6H PRN 11/29/18 11/29/18 History [Tylenol w/codeine #3] Aspirin 81 mg PO DAILY@1700 11/29/18 11/29/18 History Bisacodyl [Dulcolax] 10 mg RECTAL DAILY PRN 11/29/18 11/29/18 History Furosemide [Lasix] 40 mg PO BID@0600,1700 11/29/18 11/29/18 History Magnesium Hydroxide [Milk of 2,400 mg PO DAILY PRN 11/29/18 11/29/18 History Magnesia] Metoprolol Tartrate [Lopressor] 50 mg PO BID@0800,1700 11/29/18 11/29/18 History Na Phos,M-B/Na Phos,Di-Ba [Fleet 133 ml RECTAL DAILY PRN 11/29/18 11/29/18 History Adult] Allergies Allergy/AdvReac Type Severity Reaction Status Date / Time No Known Allergies Allergy Verified 11/29/18 15:04 Surgical - Exam Vital Signs Temp Pulse Resp BP Pulse Ox 102.8 F H 77 20 120/55 92 L 11/29/18 12:53 11/29/18 12:53 11/29/18 12:53 11/29/18 12:53 11/29/18 12:53 - General well developed, well nourished, no distress, obese - Eyes PERRL, normal ocular movement - ENT normal pinna, normal nares, normal mucosa, no hearing loss, no congestion - Neck Neck is supple, no lymphadenopathy. no masses, no bruits, trachea midline, no venous distension - Respiratory Lungs sounds essentially clear throughout, diminished to his bilateral bases left greater than right. Respirations are symmetrical and nonlabored. No wheezes, rhonchi or crackles. - Cardiovascular Regular rhythm and rate. S1 and S2 present, negative for S3, gallop or murmur. Sternum is stable. Heart hugger is in place and he is demonstrating appropriate use. - Abdomen Abdomen is soft, nontender and nondistended. Active bowel sounds present all 4 abdominal quadrants. No guarding or rigidity. No organomegaly appreciated. - Genitourinary Deferred - Rectum Deferred - Integumentary Skin is warm and dry. No clubbing or cyanosis is present. +2 edema to his bilateral lower extremities with scattered blistered areas. Midline sternal incision is clean, dry and approximated. No drainage or redness is present. - Neurologic normal coordination, normal sensation - Musculoskeletal Generalized weakness normal gait, normal posture - Psychiatric oriented to time, oriented to person, oriented to place, speech is normal, memory intact Results - Labs 11/30/18 03:01 11/30/18 03:01 Abnormal Lab Results - Last 24 Hours (Table) 11/29/18 11/29/18 11/29/18 Range/Units 13:55 13:55 13:55 WBC 11.7 H (3.8-10.6) k/uL RBC 2.64 L (4.30-5.90) m/uL Hgb 8.2 L (13.0-17.5) gm/dL Hct 26.3 L (39.0-53.0) % RDW 18.5 H (11.5-15.5) % Neutrophils # 10.4 H (1.3-7.7) k/uL Lymphocytes # 0.5 L (1.0-4.8) k/uL PT (9.0-12.0) sec INR (<1.2) Sodium 135 L (137-145) mmol/L BUN 44 H (9-20) mg/dL Creatinine 1.91 H (0.66-1.25) mg/dL Glucose 164 H (74-99) mg/dL POC Glucose (mg/dL) (75-99) mg/dL Plasma Lactic Acid Guy 2.1 H* (0.7-2.0) mmol/L AST 117 H (17-59) U/L ALT 90 H (21-72) U/L Alkaline Phosphatase 150 H (38-126) U/L Creatine Kinase 51 L (55-170) U/L Troponin I (0.000-0.034) ng/mL C-Reactive Protein 327.4 H (<10.0) mg/L Urine Protein (Negative) 11/29/18 11/29/18 11/29/18 Range/Units 13:55 13:55 14:05 WBC (3.8-10.6) k/uL RBC (4.30-5.90) m/uL Hgb (13.0-17.5) gm/dL Hct (39.0-53.0) % RDW (11.5-15.5) % Neutrophils # (1.3-7.7) k/uL Lymphocytes # (1.0-4.8) k/uL PT 12.2 H (9.0-12.0) sec INR 1.2 H (<1.2) Sodium (137-145) mmol/L BUN (9-20) mg/dL Creatinine (0.66-1.25) mg/dL Glucose (74-99) mg/dL POC Glucose (mg/dL) (75-99) mg/dL Plasma Lactic Acid Guy (0.7-2.0) mmol/L AST (17-59) U/L ALT (21-72) U/L Alkaline Phosphatase (38-126) U/L Creatine Kinase (55-170) U/L Troponin I 0.040 H* (0.000-0.034) ng/mL C-Reactive Protein (<10.0) mg/L Urine Protein Trace H (Negative) 11/29/18 11/29/18 11/30/18 Range/Units 20:57 20:58 03:01 WBC 10.8 H (3.8-10.6) k/uL RBC 2.42 L (4.30-5.90) m/uL Hgb 7.6 L (13.0-17.5) gm/dL Hct 23.8 L (39.0-53.0) % RDW 18.2 H (11.5-15.5) % Neutrophils # 9.3 H (1.3-7.7) k/uL Lymphocytes # 0.5 L (1.0-4.8) k/uL PT (9.0-12.0) sec INR (<1.2) Sodium (137-145) mmol/L BUN (9-20) mg/dL Creatinine (0.66-1.25) mg/dL Glucose (74-99) mg/dL POC Glucose (mg/dL) 164 H (75-99) mg/dL Plasma Lactic Acid Guy (0.7-2.0) mmol/L AST (17-59) U/L ALT (21-72) U/L Alkaline Phosphatase (38-126) U/L Creatine Kinase (55-170) U/L Troponin I 0.035 H* (0.000-0.034) ng/mL C-Reactive Protein (<10.0) mg/L Urine Protein (Negative) 11/30/18 11/30/18 Range/Units 03:01 06:45 WBC (3.8-10.6) k/uL RBC (4.30-5.90) m/uL Hgb (13.0-17.5) gm/dL Hct (39.0-53.0) % RDW (11.5-15.5) % Neutrophils # (1.3-7.7) k/uL Lymphocytes # (1.0-4.8) k/uL PT (9.0-12.0) sec INR (<1.2) Sodium 136 L (137-145) mmol/L BUN 47 H (9-20) mg/dL Creatinine 1.80 H (0.66-1.25) mg/dL Glucose 197 H (74-99) mg/dL POC Glucose (mg/dL) 183 H (75-99) mg/dL Plasma Lactic Acid Guy (0.7-2.0) mmol/L AST (17-59) U/L ALT (21-72) U/L Alkaline Phosphatase (38-126) U/L Creatine Kinase (55-170) U/L Troponin I (0.000-0.034) ng/mL C-Reactive Protein (<10.0) mg/L Urine Protein (Negative) Microbiology - Last 24 Hours (Table) 11/29/18 22:30 Urine Culture - Preliminary Urine,Clean Catch 11/29/18 22:30 Wound Culture - Preliminary Ankle - Left Diabetes panel 11/29/18 11/30/18 Range/Units 13:55 03:01 Sodium 135 L 136 L (137-145) mmol/L Potassium 5.1 5.1 (3.5-5.1) mmol/L Chloride 102 104 (98-107) mmol/L Carbon Dioxide 26 23 (22-30) mmol/L BUN 44 H 47 H (9-20) mg/dL Creatinine 1.91 H 1.80 H (0.66-1.25) mg/dL Glucose 164 H 197 H (74-99) mg/dL Calcium 8.9 8.6 (8.4-10.2) mg/dL AST 117 H (17-59) U/L ALT 90 H (21-72) U/L Alkaline Phosphatase 150 H (38-126) U/L Total Protein 6.5 (6.3-8.2) g/dL Albumin 3.6 (3.5-5.0) g/dL Thyroid panel 11/29/18 Range/Units 13:55 TSH 3.960 (0.465-4.680) mIU/L Calcium panel 11/29/18 11/30/18 Range/Units 13:55 03:01 Calcium 8.9 8.6 (8.4-10.2) mg/dL Albumin 3.6 (3.5-5.0) g/dL Pituitary panel 11/29/18 11/30/18 Range/Units 13:55 03:01 Sodium 135 L 136 L (137-145) mmol/L Potassium 5.1 5.1 (3.5-5.1) mmol/L Chloride 102 104 (98-107) mmol/L Carbon Dioxide 26 23 (22-30) mmol/L BUN 44 H 47 H (9-20) mg/dL Creatinine 1.91 H 1.80 H (0.66-1.25) mg/dL Glucose 164 H 197 H (74-99) mg/dL Calcium 8.9 8.6 (8.4-10.2) mg/dL TSH 3.960 (0.465-4.680) mIU/L Adrenal panel 11/29/18 11/30/18 Range/Units 13:55 03:01 Sodium 135 L 136 L (137-145) mmol/L Potassium 5.1 5.1 (3.5-5.1) mmol/L Chloride 102 104 (98-107) mmol/L Carbon Dioxide 26 23 (22-30) mmol/L BUN 44 H 47 H (9-20) mg/dL Creatinine 1.91 H 1.80 H (0.66-1.25) mg/dL Glucose 164 H 197 H (74-99) mg/dL Calcium 8.9 8.6 (8.4-10.2) mg/dL Total Bilirubin 1.1 (0.2-1.3) mg/dL AST 117 H (17-59) U/L ALT 90 H (21-72) U/L Alkaline Phosphatase 150 H (38-126) U/L Total Protein 6.5 (6.3-8.2) g/dL Albumin 3.6 (3.5-5.0) g/dL - Imaging Chest x-ray: report reviewed, image reviewed Assessment and Plan Assessment: 1. Chronic kidney disease stage III with a baseline creatinine of 1.5-2.0 2. Acute lower extremity cellulitis, fever, elevated WBC cell count. 3. History of severe eccentric mitral valve regurgitation, severely calcified mitral annulus, torn chordae to the P1 posterior leaflet, status post complex mitral valve repair on 10/31/2018 3. History of coronary artery disease with recent drug-eluting stent placed to his left anterior descending coronary artery on 09/24/2018 4. Chronic diastolic heart failure 5. Hypertension 6. Hyperlipidemia 7. Diabetes mellitus type 2, with peripheral neuropathy 8. Anemia of chronic kidney disease 9. Moderate chronic obstructive pulmonary disease 10. Obstructive sleep apnea without home CPAP use 11. Pulmonary hypertension 12. Obesity 13. Osteoarthritis 14. History of tobacco dependence, previous pipe 15. History of paroxysmal atrial fibrillation 16. History of transaminitis Plan: The patient was seen and examined. His chart diagnostics reviewed. Patient was also seen and examined by Dr. González Gaytan from cardiothoracic surgery. Continue aggressive diuresis managed by nephrology. Currently on Lasix 40 mg IV every 8 hours. Antibiotic management per infectious disease recommendations. Wound care apply Silvadene to his blistered areas to his bilateral lower extremities daily and when necessary. Wrap his bilateral lower extremities from toes to just below the knee daily and when necessary. When the patient is not ambulating or sitting up for meals he should have his legs elevated 6 to 8 inches higher than the level of his heart. Continue GI and DVT prophylaxis. Consult physical and occupational therapy for further rehabilitation needs. Continue with postoperative open heart discharge orders with no lifting pushing or pulling anything greater than 10 pounds or jug about for 12 full weeks. Continue to shower daily. Continue to encourage use of his incentive spirometry every hour while awake. More recommendations to follow based on patient's clinical course. Avoid nephrotoxic agents. Thank you for this consult and we look forward to working with you in the care of this patient. Time with Patient: Greater than 30
[2018-11-30] MEDS: VANCOMYCIN 1,750 MG in SODIUM CHLORIDE 0.9% 500 ML 500 ML IVPB SCH (17:46)
[2018-11-30] MEDS: SODIUM CHLORIDE 0.9% 1,000 ML IV SCH (17:54)
[2018-11-30] MEDS ORDERED: VANCOMYCIN 1,750 MG in SODIUM CHLORIDE 0.9% 500 ML 500 ML IVPB SCH (18:00)
--- NOTE | 2018-11-30 19:10 | P.CNPUL ---
History of Present Illness Consult date: 11/30/18 Chief complaint: Lower extremity edema, hypotension History of present illness: 73-year-old male patient with previous history of mitral valve repair with a very slow recovery and ultimately was discharged to rehabilitation. Posterior the patient was admitted for an acute kidney injury from which she recovered and the kidney function went back to its baseline. The patient was discharged back to [facility] where he underwent further rehabilitation and ultimately was discharged home where he states 2 days and he came back to the hospital because of worsening lower extremities edema and ulceration and fever. The patient was initially was admitted to the medical floor he was given diuretics. He was having significant amount of pitting edema lower extremities bilaterally. Troponins were minimally elevated. His hemoglobin was at 8.2. His creatinine was at 1.8. The patient subsequently became hypotensive. He had a transient hypotension and got moved to the intensive care unit. Currently he is afebrile although on admission had a temperature of 102.8. He was seen by infectious disease. Lower extremity edema and ulceration was noted. He was placed on a combination of antibiotics. He was given a bolus of 500 mL and currently his blood pressure is normalized without the use of any pressors. No altered mentation. No significant cough or sputum production. No chest pain. He is known to have coronary artery disease with previous stenting of the LAD, diastolic heart failure, hypertension and hyperlipidemia and diabetes mellitus and peripheral neuropathy. He also suffers from staged 3 chronic kidney disease, COPD and obstructive sleep apnea and he has a component of secondary pulmonary hypertension related to his valvular heart disease. Currently is on a combination of vancomycin and Zosyn. Diuretics have been discontinued. He is also receiving normal saline at rate of 25 mL an hour. Tolerating his diet. Review of Systems Constitutional: Reports fatigue, Reports poor appetite, Reports weakness, Reports weight gain Eyes: denies as per HPI, denies blurred vision, denies bulging eye, denies decreased vision, denies diplopia, denies discharge, denies dry eye, denies irritation, denies itching, denies pain, denies photophobia, denies loss of peripheral vision, denies loss of vision, denies tunnel vision/blind spots Ears: deny: decreased hearing, ear discharge, earache, tinnitus Ears, nose, mouth and throat: Denies headache, Denies sore throat Cardiovascular: Reports decreased exercise tolerance, Reports dyspnea on exertion, Reports leg edema, Reports shortness of breath Respiratory: Reports dyspnea, Reports home oxygen, Reports snoring Gastrointestinal: Reports as per HPI Genitourinary: Reports as per HPI Musculoskeletal: Reports muscle weakness Musculoskeletal: bilateral: ankle swelling, absent: ankle pain, ankle stiffness Integumentary: Reports wounds, Denies pruritus, Denies rash Neurological: Reports weakness Psychiatric: Reports as per HPI Endocrine: Reports as per HPI Hematologic/Lymphatic: Reports as per HPI Allergic/Immunologic: Reports as per HPI Past Medical History Past Medical History: Atrial Fibrillation, Coronary Artery Disease (CAD), Cancer, Heart Failure, COPD, Diabetes Mellitus, Eye Disorder, Hyperlipidemia, Hy pertension, Osteoarthritis (OA), Renal Disease, Sleep Apnea/CPAP/BIPAP Additional Past Medical History / Comment(s): Severe mitral valve regurgitation post mitral valve repair, paroxysmal atrial fibrillation, coronary artery disease with previous stenting of the LAD, diastolic heart failure, hypertension, hyperlipidemia, diabetes mellitus, peripheral neuropathy, chronic stage III kidney disease, COPD, obstructive sleep apnea, secondary pulmonary hypertension, cataracts, osteoarthritis and history of bladder cancer History of Any Multi-Drug Resistant Organisms: None Reported Past Surgical History: Adenoidectomy, Heart Catheterization, Heart Catheterization With Stent, Tonsillectomy Additional Past Surgical History / Comment(s): FAUSTINO,COLONOSCOPY, heart cath 09/11/18, heart catheterization 09/24/2018 with drug-eluting stent placed to the LAD, mitral valve repair on 10/31/2018. Past Anesthesia/Blood Transfusion Reactions: No Reported Reaction Additional Past Anesthesia/Blood Transfusion Reaction / Comment(s): no hx blood transfusion Date of Last Stent Placement:: September 2018 Past Psychological History: No Psychological Hx Reported Smoking Status: Former smoker Past Alcohol Use History: None Reported, Rare Past Drug Use History: None Reported - Past Family History Father Family Medical History: Cancer, Diabetes Mellitus Additional Family Medical History / Comment(s): BLADDER CANCER Mother Family Medical History: Congestive Heart Failure (CHF) Additional Family Medical History / Comment(s): AT AGE 68 Medications and Allergies Home Medications Medication Instructions Recorded Confirmed Type Cholecalciferol [Vitamin D3 (25 2,000 unit PO DAILY@169901/04/16 11/29/18 History Mcg = 1000 Iu)] Ferrous Sulfate [Iron (65 MG 325 mg PO DAILY@169901/04/16 11/29/18 History Elemental)] L.acidoph,Paracasei, B.lactis 1 cap PO DAILY@1700 01/04/16 11/29/18 History [Probiotic] Multivitamins, Thera [Multivitamin 1 tab PO DAILY@1700 01/09/17 11/29/18 History (formulary)] Zinc 50 mg PO DAILY@1700 07/17/18 11/29/18 History Acetaminophen Tab [Tylenol] 1,000 mg PO Q6HR #120 tablet 11/11/18 11/29/18 Rx Albuterol Inhaler [Ventolin Hfa 1 - 2 puff INHALATION RT-Q6H PRN 11/11/18 11/29/18 Rx Inhaler] #1 inhaler Amiodarone [Cordarone] 200 mg PO DAILY #15 tab 11/11/18 11/29/18 Rx Clopidogrel [Plavix] 75 mg PO DAILY #30 tablet 11/11/18 11/29/18 Rx Insulin Detemir [Levemir Flextouch] 10 units SQ HS 30 Days #3 pen 11/11/18 11/29/18 Rx Insulin Lispro [humaLOG Kwikpen] 10 unit SQ AC-TID 30 Days #3 11/11/18 11/29/18 Rx insuln.pen Sennosides-Docusate Sodium 2 tab PO HS PRN #14 tablet 11/11/18 11/29/18 Rx [Senokot-S] Acetaminophen-Codeine 300-30mg 1 - 2 tab PO Q6H PRN 11/29/18 11/29/18 History [Tylenol w/codeine #3] Aspirin 81 mg PO DAILY@1700 11/29/18 11/29/18 History Bisacodyl [Dulcolax] 10 mg RECTAL DAILY PRN 11/29/18 11/29/18 History Furosemide [Lasix] 40 mg PO BID@0600,1700 11/29/18 11/29/18 History Magnesium Hydroxide [Milk of 2,400 mg PO DAILY PRN 11/29/18 11/29/18 History Magnesia] Metoprolol Tartrate [Lopressor] 50 mg PO BID@0800,1700 11/29/18 11/29/18 History Na Phos,M-B/Na Phos,Di-Ba [Fleet 133 ml RECTAL DAILY PRN 11/29/18 11/29/18 History Adult] Allergies Allergy/AdvReac Type Severity Reaction Status Date / Time No Known Allergies Allergy Verified 11/29/18 15:04 Physical Exam Vitals: Vital Signs Temp Pulse Pulse Resp BP BP BP 11/30/18 18:30 65 14 107/59 11/30/18 18:00 61 16 95/55 11/30/18 17:30 61 23 102/55 11/30/18 17:00 59 L 20 103/59 11/30/18 16:45 58 L 19 99/53 11/30/18 16:30 59 L 18 105/61 11/30/18 16:15 60 14 88/55 11/30/18 16:00 97.4 F L 59 L 15 97/55 11/30/18 15:45 59 L 16 102/53 11/30/18 15:30 60 11 L 98/53 11/30/18 15:15 59 L 12 90/57 11/30/18 15:00 56 L 18 97/54 11/30/18 14:45 55 L 18 97/57 11/30/18 14:30 55 L 18 95/56 11/30/18 14:10 97.2 F L 56 L 26 H 95/56 11/30/18 13:03 91/56 11/30/18 12:48 98.7 F 54 L 14 83/42 11/30/18 12:45 78/46 11/30/18 08:20 66 14 11/30/18 08:01 98.7 F 66 14 112/53 11/30/18 05:16 97.7 F 11/30/18 04:00 99 F 76 18 109/57 11/30/18 00:00 98.5 F 72 16 130/61 11/29/18 21:09 101.2 F H 72 16 145/75 11/29/18 20:00 72 16 Pulse Ox 11/30/18 18:30 98 11/30/18 18:00 98 11/30/18 17:30 98 11/30/18 17:00 99 11/30/18 16:45 98 11/30/18 16:30 100 11/30/18 16:15 99 11/30/18 16:00 93 L 11/30/18 15:45 95 09/06/19 15:30 97 11/30/18 15:15 95 11/30/18 15:00 97 11/30/18 14:45 98 11/30/18 14:30 99 11/30/18 14:10 96 11/30/18 13:03 11/30/18 12:48 100 11/30/18 12:45 11/30/18 08:20 11/30/18 08:01 99 11/30/18 05:16 11/30/18 04:00 96 11/30/18 00:00 98 11/29/18 21:09 98 11/29/18 20:00 Intake and Output 11/30/18 11/30/18 11/30/18 06:59 14:59 22:59 Intake Total 145 50 Output Total 750 115 Balance -605 -65 Intake: IV 25 50 0.9 25 50 Oral 120 Output: Urine 750 115 Other: Voiding Method Urinal Urinal Indwelling Catheter Diaper Diaper # Voids 1 Weight 105 kg 105 kg Obese, comfortable likely distress BMI of 37.4 Head exam was generally normal. There was no scleral icterus or corneal arcus. Mucous membranes were moist. Neck was supple and without jugular venous distension, thyromegaly, or carotid bruits. Carotids were easily palpable bilaterally. There was no adenopathy. Lungs sounds are diminished bilaterally especially lung bases. Sternal stable clean and intact. Cardiac exam revealed the PMI to be normally situated and sized. The rhythm was regular and no extrasystoles were noted during several minutes of auscultation. The first and second heart sounds were normal and physiologic splitting of the second heart sound was noted. There were no murmurs, rubs, clicks, or gallops. Abdominal exam revealed normal bowel sounds. The abdomen was soft, non-tender, and without masses, organomegaly, or appreciable enlargement of the abdominal aorta. Extremities are currently wrapped. Pictures taken earlier and photos were reviewed regarding the ulceration lower extremities. Patient also has +1-2 pitting edema Neurologically awake and alert and there is no focal neurological deficit of the cranial nerves are intact. Results - Laboratory Findings CBC and BMP: 11/30/18 03:01 11/30/18 03:01 PT/INR, D-dimer PT 12.2 sec (9.0-12.0) H 11/29/18 13:55 INR 1.2 (<1.2) H 11/29/18 13:55 Abnormal lab findings: Abnormal Labs 11/29/18 11/29/18 11/29/18 13:55 13:55 13:55 WBC 11.7 H RBC 2.64 L Hgb 8.2 L Hct 26.3 L RDW 18.5 H Neutrophils # 10.4 H Lymphocytes # 0.5 L PT INR Sodium 135 L BUN 44 H Creatinine 1.91 H Glucose 164 H POC Glucose (mg/dL) Plasma Lactic Acid Guy 2.1 H* AST 117 H ALT 90 H Alkaline Phosphatase 150 H Creatine Kinase 51 L Troponin I C-Reactive Protein 327.4 H Urine Protein 11/29/18 11/29/18 11/29/18 13:55 13:55 14:05 WBC RBC Hgb Hct RDW Neutrophils # Lymphocytes # PT 12.2 H INR 1.2 H Sodium BUN Creatinine Glucose POC Glucose (mg/dL) Plasma Lactic Acid Guy AST ALT Alkaline Phosphatase Creatine Kinase Troponin I 0.040 H* C-Reactive Protein Urine Protein Trace H 11/29/18 11/29/18 11/30/18 20:57 20:58 03:01 WBC 10.8 H RBC 2.42 L Hgb 7.6 L Hct 23.8 L RDW 18.2 H Neutrophils # 9.3 H Lymphocytes # 0.5 L PT INR Sodium BUN Creatinine Glucose POC Glucose (mg/dL) 164 H Plasma Lactic Acid Guy AST ALT Alkaline Phosphatase Creatine Kinase Troponin I 0.035 H* C-Reactive Protein Urine Protein 11/30/18 11/30/18 11/30/18 03:01 06:45 11:44 WBC RBC Hgb Hct RDW Neutrophils # Lymphocytes # PT INR Sodium 136 L BUN 47 H Creatinine 1.80 H Glucose 197 H POC Glucose (mg/dL) 183 H 165 H Plasma Lactic Acid Guy AST ALT Alkaline Phosphatase Creatine Kinase Troponin I C-Reactive Protein Urine Protein 11/30/18 11/30/18 14:15 17:14 WBC RBC Hgb Hct RDW Neutrophils # Lymphocytes # PT INR Sodium BUN Creatinine Glucose POC Glucose (mg/dL) 113 H 104 H Plasma Lactic Acid Guy AST ALT Alkaline Phosphatase Creatine Kinase Troponin I C-Reactive Protein Urine Protein - Diagnostic Findings Chest x-ray: image reviewed Assessment and Plan Plan: 1 lower extremity edema with some limited ulceration without clear indication of infection/cellulitis. Currently on accommodation Zosyn and vancomycin. The patient was diuresed also with improvement of the lower extremity edema and currently the legs are wraps 2 hypotension recovered and the patient was given a bolus of 500 mL of normal saline. This is likely secondary to medications/diuresis 3 Severe mitral valve regurgitation with severely calcified mitral annulus, torn chordae to P1 posterior leaflet. He is status post complex mitral valve repair with resection of torn chordae to P1, posterior leaflet plication of P1 and P2, small resection P1-P2 leaflet, plication of both anterior mitral trigones, clip ligation of left atrial appendage. 4 chronic diastolic heart failure 5 Coronary artery disease with recent stent placement to the LAD on 09/24/2018. 6 chronic kidney disease stage III 7 hypertension 8 hyperlipidemia 9 diabetes mellitus 10 obstructive sleep apnea. 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 FEV1 value of 54% predicted. Plan Agree on the current management. We will monitor the blood pressure in the ICU for 24 hours. Continue antibiotics. Local wound care. Outpatient indication be resumed. We'll continue to follow.
[2018-11-30 19:39] LABS: Iron Saturation 6.04 (15.00-50.00)
[2018-11-30 20:39] LABS: Glucose,Whole Blood 180 mg/dL (75-99)
[2018-11-30] MEDS: INSULIN DETEMIR (LEVEMIR) 100 UNIT/ML SYR SQ SCH (20:44)
--- NOTE | 2018-11-30 23:24 | P.CONS ---
History of Present Illness - Reason for Consult Consult date: 11/30/18 - Chief Complaint Lower extremity edema - History of Present Illness 73-year-old male presents to Hospital from the [facility] care facility where he has been recovering status post his extensive mitral valve repair for his mitral stenosis. There was also repair of the ruptured chordae tendon 9. Prior to the finding of severe mitral stenosis he did have coronary disease and a percutaneous intervention occurred with stenting of a drug-eluting type. Afterward the open heart procedure occurred. Due to his weakness has been recovering at the [facility] care [facility] when it was noticed that he had the rapid worsening of the lower extremities with the increasing amount of edema the tissue started to blister he developed a fever and was transferred to our facility. Due to the lower actually wounds and concerns to infection especially in the face of his recent surgical interventions. Consultation was requested. Patient is feeling slightly better he has identities less short of breath the lower extremities are feeling somewhat better they are less uncomfortable Review of Systems HEENT:Denies headache or acute visual change. Denies sinus or mouth discomforts. Denies neck stiffness or pain. Denies significant oral cavity pain. Denies difficulty on swallowing. Lungs: Denies shortness of breath is not having cough production or hemoptysis Cardiovascular: He is wearing his Heart Hugger is not having much discomfort with his chest with deep cough he does have some minimal discomfort he is not having much dyspnea. Gastrointestinal:Denies nausea, vomiting, diarrhea, constipation, hematemesis, melena, hematochezia. No no significant change of bowel habit noticed. Musculoskeletal: As per the HPI the significant lower extremity edema and blistering Skin: Blistering lower extremities Neuro: Denies headache or visual change. Denies any new onset weakness or difficulty with ambulation. Denies falls or seizures. Psychiatric:Denies anxiety or depression. Endocrine: Fatigue and weight gain has occurred Past Medical History Past Medical History: Atrial Fibrillation, Coronary Artery Disease (CAD), Cancer, Heart Failure, COPD, Diabetes Mellitus, Eye Disorder, Hyperlipidemia, Hypertension, Osteoarthritis (OA), Renal Disease, Sleep Apnea/CPAP/BIPAP Additional Past Medical History / Comment(s): Severe mitral valve regurgitation post mitral valve repair, paroxysmal atrial fibrillation, coronary artery disease with previous stenting of the LAD, diastolic heart failure, hypertension, hyperlipidemia, diabetes mellitus, peripheral neuropathy, chronic stage III kidney disease, COPD, obstructive sleep apnea, secondary pulmonary hypertension, cataracts, osteoarthritis and history of bladder cancer History of Any Multi-Drug Resistant Organisms: None Reported Past Surgical History: Adenoidectomy, Heart Catheterization, Heart Catheterization With Stent, Tonsillectomy Additional Past Surgical History / Comment(s): FAUSTINO,COLONOSCOPY, heart cath 09/11/18, heart catheterization 09/24/2018 with drug-eluting stent placed to the LAD, mitral valve repair on 10/31/2018. Past Anesthesia/Blood Transfusion Reactions: No Reported Reaction Additional Past Anesthesia/Blood Transfusion Reaction / Comm: no hx blood transfusion Date of Last Stent Placement:: September 2018 Past Psychological History: No Psychological Hx Reported Smoking Status: Former smoker Past Alcohol Use History: None Reported, Rare Past Drug Use History: None Reported - Past Family History Father Family Medical History: Cancer, Diabetes Mellitus Additional Family Medical History / Comment(s): BLADDER CANCER Mother Family Medical History: Congestive Heart Failure (CHF) Additional Family Medical History / Comment(s): AT AGE 68 Medications and Allergies Home Medications and Allergies Comment(s): Current Medications Acetaminophen (Tylenol Tab) 650 mg PO Q6HR PRN PRN Reason: Mild Pain or Fever > 100.5 Last Admin: 11/29/18 20:51 Dose: 650 mg Documented by: Acetaminophen/Codeine Phosphate (Tylenol #3) 1 - 2 each PO Q6H PRN PRN Reason: Pain Last Admin: 11/30/18 20:58 Dose: 2 each Documented by: Albuterol Sulfate (Ventolin Nebulized) 2.5 mg INHALATION RT-Q6H PRN PRN Reason: Shortness Of Breath Or Wheezing Amiodarone HCl (Cordarone) 200 mg PO DAILY [facility] Last Admin: 11/30/18 09:03 Dose: 200 mg Documented by: Lipase/Protease/Amylase (Zenpep Dr 5,000 Unit Capsule) 1 each PO DAILY@1700 [facility] Last Admin: 11/30/18 17:53 Dose: 1 each Documented by: Aspirin (Aspirin) 81 mg PO DAILY@1700 [facility] Last Admin: 11/30/18 17:53 Dose: 81 mg Documented by: Bisacodyl (Dulcolax) 10 mg RECTAL DAILY PRN PRN Reason: Constipation Cholecalciferol (Vitamin D3 (25 Mcg = 1000 Iu)) 2,000 unit PO DAILY@1700 [facility] Last Admin: 11/30/18 17:53 Dose: 2,000 unit Documented by: Clopidogrel Bisulfate (Plavix) 75 mg PO DAILY [facility] Last Admin: 11/30/18 09:03 Dose: 75 mg Documented by: Darbepoetin Ruddy (Aranesp) 40 mcg SQ Q7D [facility] Last Admin: 11/30/18 16:15 Dose: 40 mcg Documented by: Ferrous Sulfate (Feosol) 325 mg PO DAILY@1700 [facility] Last Admin: 11/30/18 17:53 Dose: 325 mg Documented by: Piperacillin Sod/Tazobactam (Sod 3.375 gm/ Sodium Chloride) 100 mls @ 25 mls/hr IVPB Q8HR [facility] Last Admin: 11/30/18 16:15 Dose: 25 mls/hr Documented by: Vancomycin HCl 1,750 mg/ (Sodium Chloride) 500 mls @ 167 mls/hr IVPB Q24H [facility] Last Admin: 11/30/18 17:46 Dose: 167 mls/hr Documented by: Sodium Chloride (Saline 0.9%) 1,000 mls @ 25 mls/hr IV .Q24H [facility] Last Admin: 11/30/18 17:54 Dose: 25 mls/hr Documented by: Insulin Aspart (Novolog) 10 unit SQ AC-TID [facility] Last Admin: 11/30/18 17:46 Dose: Not Given Documented by: Insulin Detemir (Levemir) 10 unit SQ HS [facility] Last Admin: 11/30/18 20:44 Dose: 10 unit Documented by: Magnesium Hydroxide (Milk Of Magnesia) 2,400 mg PO DAILY PRN PRN Reason: Constipation Multivitamins (Theragran) 1 each PO DAILY@1700 [facility] Last Admin: 11/30/18 17:53 Dose: 1 each Documented by: Naloxone HCl (Narcan) 0.2 mg IV Q2M PRN PRN Reason: Opioid Reversal Pantoprazole Sodium (Protonix) 40 mg PO AC-BRKFST [facility] Senna/Docusate Sodium (Senokot-S) 2 each PO HS PRN PRN Reason: Constipation Silver Sulfadiazine (Silvadene Cream) 1 applic TOPICAL DAILY [facility] Last Admin: 11/30/18 09:11 Dose: Not Given Documented by: Home Medications Medication Instructions Recorded Confirmed Type Cholecalciferol [Vitamin D3 (25 2,000 unit PO DAILY@1700 01/04/16 09/05/19 History Mcg = 1000 Iu)] Ferrous Sulfate [Iron (65 MG 325 mg PO DAILY@169901/04/16 11/29/18 History Elemental)] L.acidoph,Paracasei, B.lactis 1 cap PO DAILY@169901/04/16 11/29/18 History [Probiotic] Multivitamins, Thera [Multivitamin 1 tab PO DAILY@169901/09/17 11/29/18 History (formulary)] Zinc 50 mg PO DAILY@169907/17/18 11/29/18 History Acetaminophen Tab [Tylenol] 1,000 mg PO Q6HR #120 tablet 11/11/18 11/29/18 Rx Albuterol Inhaler [Ventolin Hfa 1 - 2 puff INHALATION RT-Q6H PRN 11/11/18 11/29/18 Rx Inhaler] #1 inhaler Amiodarone [Cordarone] 200 mg PO DAILY #15 tab 11/11/18 11/29/18 Rx Clopidogrel [Plavix] 75 mg PO DAILY #30 tablet 11/11/18 11/29/18 Rx Insulin Detemir [Levemir Flextouch] 10 units SQ HS 30 Days #3 pen 11/11/18 11/29/18 Rx Insulin Lispro [humaLOG Kwikpen] 10 unit SQ AC-TID 30 Days #3 11/11/18 11/29/18 Rx insuln.pen Sennosides-Docusate Sodium 2 tab PO HS PRN #14 tablet 11/11/18 11/29/18 Rx [Senokot-S] Acetaminophen-Codeine 300-30mg 1 - 2 tab PO Q6H PRN 11/29/18 11/29/18 History [Tylenol w/codeine #3] Aspirin 81 mg PO DAILY@169911/29/18 11/29/18 History Bisacodyl [Dulcolax] 10 mg RECTAL DAILY PRN 11/29/18 11/29/18 History Furosemide [Lasix] 40 mg PO BID@0600,1700 11/29/18 11/29/18 History Magnesium Hydroxide [Milk of 2,400 mg PO DAILY PRN 11/29/18 11/29/18 History Magnesia] Metoprolol Tartrate [Lopressor] 50 mg PO BID@0800,1700 11/29/18 11/29/18 History Na Phos,M-B/Na Phos,Di-Ba [Fleet 133 ml RECTAL DAILY PRN 11/29/18 11/29/18 History Adult] Allergies Allergy/AdvReac Type Severity Reaction Status Date / Time No Known Allergies Allergy Verified 11/29/18 15:04 Physical Exam Vitals: Vital Signs Temp Pulse Pulse Resp BP BP BP 11/30/18 20:30 98.0 F 63 12 106/53 11/30/18 20:00 64 26 H 112/52 11/30/18 19:00 64 16 116/59 11/30/18 18:30 65 14 107/59 11/30/18 18:00 61 16 95/55 11/30/18 17:30 61 23 102/55 11/30/18 17:00 59 L 20 103/59 11/30/18 16:45 58 L 19 99/53 11/30/18 16:30 59 L 18 105/61 11/30/18 16:15 60 14 88/55 11/30/18 16:00 97.4 F L 59 L 15 97/55 11/30/18 15:45 59 L 16 102/53 11/30/18 15:30 60 11 L 98/53 11/30/18 15:15 59 L 12 90/57 11/30/18 15:00 56 L 18 97/54 11/30/18 14:45 55 L 18 97/57 11/30/18 14:30 55 L 18 95/56 11/30/18 14:10 97.2 F L 56 L 26 H 95/56 11/30/18 13:03 91/56 11/30/18 12:48 98.7 F 54 L 14 83/42 11/30/18 12:45 78/46 11/30/18 08:20 66 14 11/30/18 08:01 98.7 F 66 14 112/53 11/30/18 05:16 97.7 F 11/30/18 04:00 99 F 76 18 109/57 11/30/18 00:00 98.5 F 72 16 130/61 Pulse Ox 11/30/18 20:30 99 11/30/18 20:00 99 11/30/18 19:00 96 11/30/18 18:30 98 11/30/18 18:00 98 11/30/18 17:30 98 11/30/18 17:00 99 11/30/18 16:45 98 11/30/18 16:30 100 11/30/18 16:15 99 11/30/18 16:00 93 L 11/30/18 15:45 95 11/30/18 15:30 97 11/30/18 15:15 95 11/30/18 15:00 97 11/30/18 14:45 98 11/30/18 14:30 99 11/30/18 14:10 96 11/30/18 13:03 11/30/18 12:48 100 11/30/18 12:45 11/30/18 08:20 11/30/18 08:01 99 11/30/18 05:16 11/30/18 04:00 96 11/30/18 00:00 98 Intake and Output 11/30/18 11/30/18 12/01/18 14:59 22:59 06:59 Intake Total 145 810 Output Total 750 335 Balance -605 475 Intake: IV 25 750 0.9 25 50 Piperacillin-Tazobactam 3 100 .375 gm In Sodium Chloride 0.9% 100 ml @ 25 mls/hr IVPB Q8HR [facility] Rx# :[id number] Sodium Chloride 0.9% 1, 100 000 ml @ 25 mls/hr IV . Q24H [facility] Rx#:[id number] Vancomycin 1,750 mg In 500 Sodium Chloride 0.9% 500 ml 500 ml @ 167 mls/hr IVPB Q36H [facility] Rx#: [id number] Oral 120 60 Output: Urine 750 335 Other: Voiding Method Urinal Indwelling Catheter Diaper Weight 105 kg HEENT: Anicteric conjunctiva are pink and moist nasal mucosa grossly intact without significant lesions, there is no thrush. Poor dentition Neck: The neck is supple without significant lymphadenopathy or thyromegaly. Lungs: Symmetrical bilateral air entry basilar crackles are heard. Extremities no bronchial sounds Heart: Irregular audible S1 and S2 2/6 systolic murmur left sternal border PMI nondisplaced Abdomen: Positive bowel sounds soft and nontender without palpable masses or organomegaly. There was no guarding or rebound. Extremities: The upper extremities have excellent pulses they are symmetric, no significant petechiae or telangiectasia. No splinter hemorrhages were noted. The lower extremities revealed to the bilateral significant lower extremity edema is more evidence of blistering to the left leg into the right. There is evidence of the erythema the left leg is also mildly tender there is no purulent drainage at this time. Neuro: Awake alert oriented to person place and time. There are no acute new gross focal sensory motor deficits. Results CBC & Chem 7: 11/30/18 03:01 11/30/18 03:01 Labs: Abnormal Lab Results - Last 24 Hours (Table) 11/29/18 11/30/18 11/30/18 Range/Units 13:55 03:01 03:01 WBC 10.8 H (3.8-10.6) k/uL RBC 2.42 L (4.30-5.90) m/uL Hgb 7.6 L (13.0-17.5) gm/dL Hct 23.8 L (39.0-53.0) % RDW 18.2 H (11.5-15.5) % Neutrophils # 9.3 H (1.3-7.7) k/uL Lymphocytes # 0.5 L (1.0-4.8) k/uL Sodium 136 L (137-145) mmol/L BUN 47 H (9-20) mg/dL Creatinine 1.80 H (0.66-1.25) mg/dL Glucose 197 H (74-99) mg/dL POC Glucose (mg/dL) (75-99) mg/dL Iron 18 L (65-175) ug/dL Iron Saturation 6.04 L (15.00-50.00) Ferritin 1042.1 H (22.0-322.0) ng/mL 11/30/18 11/30/18 11/30/18 Range/Units 06:45 11:44 14:15 WBC (3.8-10.6) k/uL RBC (4.30-5.90) m/uL Hgb (13.0-17.5) gm/dL Hct (39.0-53.0) % RDW (11.5-15.5) % Neutrophils # (1.3-7.7) k/uL Lymphocytes # (1.0-4.8) k/uL Sodium (137-145) mmol/L BUN (9-20) mg/dL Creatinine (0.66-1.25) mg/dL Glucose (74-99) mg/dL POC Glucose (mg/dL) 183 H 165 H 113 H (75-99) mg/dL Iron (65-175) ug/dL Iron Saturation (15.00-50.00) Ferritin (22.0-322.0) ng/mL 11/30/18 11/30/18 Range/Units 17:14 20:37 WBC (3.8-10.6) k/uL RBC (4.30-5.90) m/uL Hgb (13.0-17.5) gm/dL Hct (39.0-53.0) % RDW (11.5-15.5) % Neutrophils # (1.3-7.7) k/uL Lymphocytes # (1.0-4.8) k/uL Sodium (137-145) mmol/L BUN (9-20) mg/dL Creatinine (0.66-1.25) mg/dL Glucose (74-99) mg/dL POC Glucose (mg/dL) 104 H 180 H (75-99) mg/dL Iron (65-175) ug/dL Iron Saturation (15.00-50.00) Ferritin (22.0-322.0) ng/mL Microbiology - Last 24 Hours (Table) 11/29/18 22:30 Gram Stain - Preliminary Ankle - Left Wound Culture - Preliminary Gram Neg Bacilli Gram Neg Bacilli#2 11/29/18 13:55 Blood Culture - Preliminary Blood No Growth after 24 hours 11/29/18 22:30 Urine Culture - Preliminary Urine,Clean Catch Laboratory Results WBC 10.8 k/uL (3.8-10.6) H 11/30/18 03:01 RBC 2.42 m/uL (4.30-5.90) L 11/30/18 03:01 Hgb 7.6 gm/dL (13.0-17.5) L 11/30/18 03:01 Hct 23.8 % (39.0-53.0) L 11/30/18 03:01 MCV 98.3 fL (80.0-100.0) 11/30/18 03:01 MCH 31.4 pg (25.0-35.0) 11/30/18 03:01 MCHC 31.9 g/dL (31.0-37.0) 11/30/18 03:01 RDW 18.2 % (11.5-15.5) H 11/30/18 03:01 Plt Count 172 k/uL (150-450) 11/30/18 03:01 Neutrophils % 86 % 11/30/18 03:01 Lymphocytes % 5 % 11/30/18 03:01 Monocytes % 5 % 11/30/18 03:01 Eosinophils % 2 % 11/30/18 03:01 Basophils % 1 % 11/30/18 03:01 Neutrophils # 9.3 k/uL (1.3-7.7) H 11/30/18 03:01 Lymphocytes # 0.5 k/uL (1.0-4.8) L 11/30/18 03:01 Monocytes # 0.5 k/uL (0-1.0) 11/30/18 03:01 Eosinophils # 0.2 k/uL (0-0.7) 11/30/18 03:01 Basophils # 0.1 k/uL (0-0.2) 11/30/18 03:01 Hypochromasia Slight 11/30/18 03:01 Anisocytosis Slight 11/30/18 03:01 Macrocytosis Slight 11/30/18 03:01 PT 12.2 sec (9.0-12.0) H 11/29/18 13:55 INR 1.2 (<1.2) H 11/29/18 13:55 APTT 26.7 sec (22.0-30.0) 11/29/18 13:55 Sodium 136 mmol/L (137-145) L 11/30/18 03:01 Potassium 5.1 mmol/L (3.5-5.1) 11/30/18 03:01 Chloride 104 mmol/L (98-107) 11/30/18 03:01 Carbon Dioxide 23 mmol/L (22-30) 11/30/18 03:01 Anion Gap 9 mmol/L 11/30/18 03:01 BUN 47 mg/dL (9-20) H 11/30/18 03:01 Creatinine 1.80 mg/dL (0.66-1.25) H 11/30/18 03:01 Est GFR (CKD-EPI)AfAm 42 (>60 ml/min/1.73 sqM) 11/30/18 03:01 Est GFR (CKD-EPI)NonAf 36 (>60 ml/min/1.73 sqM) 11/30/18 03:01 Glucose 197 mg/dL (74-99) H 11/30/18 03:01 POC Glucose (mg/dL) 180 mg/dL (75-99) H 11/30/18 20:37 POC Glu [place] ID Spencer Clement 11/30/18 20:37 Lactic Ac Sepsis Rflx Y 11/29/18 14:30 Plasma Lactic Acid Guy 1.7 mmol/L (0.7-2.0) 11/30/18 14:15 Calcium 8.6 mg/dL (8.4-10.2) 11/30/18 03:01 Magnesium 1.7 mg/dL (1.6-2.3) 11/29/18 13:55 Iron 18 ug/dL (65-175) L 11/29/18 13:55 TIBC 298 ug/dL (228-460) 11/29/18 13:55 Iron Saturation 6.04 (15.00-50.00) L 11/29/18 13:55 Ferritin 1042.1 ng/mL (22.0-322.0) H 11/29/18 13:55 Total Bilirubin 1.1 mg/dL (0.2-1.3) 11/29/18 13:55 AST 117 U/L (17-59) H 11/29/18 13:55 ALT 90 U/L (21-72) H 11/29/18 13:55 Alkaline Phosphatase 150 U/L (38-126) H 11/29/18 13:55 Creatine Kinase 51 U/L (55-170) L 11/29/18 13:55 Troponin I 0.029 ng/mL (0.000-0.034) 11/30/18 03:01 C-Reactive Protein 327.4 mg/L (<10.0) H 11/29/18 13:55 NT-Pro-B Natriuret Pep 41105 pg/mL 11/29/18 13:55 Total Protein 6.5 g/dL (6.3-8.2) 11/29/18 13:55 Albumin 3.6 g/dL (3.5-5.0) 11/29/18 13:55 TSH 3.960 mIU/L (0.465-4.680) 11/29/18 13:55 Urine Color Yellow 11/29/18 14:05 Urine Appearance Clear (Clear) 11/29/18 14:05 Urine pH 5.0 (5.0-8.0) 11/29/18 14:05 Ur Specific [place] 1.018 (1.001-1.035) 11/29/18 14:05 Urine Protein Trace (Negative) H 11/29/18 14:05 Urine Glucose (UA) Negative (Negative) 11/29/18 14:05 Urine Ketones Negative (Negative) 11/29/18 14:05 Urine Blood Negative (Negative) 11/29/18 14:05 Urine Nitrite Negative (Negative) 11/29/18 14:05 Urine Bilirubin Negative (Negative) 11/29/18 14:05 Urine Urobilinogen <2.0 mg/dL (<2.0) 11/29/18 14:05 Ur Leukocyte Esterase Negative (Negative) 11/29/18 14:05 Microbiology 11/29/18 22:30 Ankle - Left Gram Stain - Preliminary 11/29/18 22:30 Ankle - Left Wound Culture - Preliminary Gram Neg Bacilli Gram Neg Bacilli#2 11/29/18 13:55 Blood Blood Culture - Preliminary No Growth after 24 hours 11/29/18 22:30 Urine,Clean Catch Urine Culture - Preliminary Assessment and Plan (1) Fever Current Visit: Yes Status: Acute Code(s): R50.9 - FEVER, UNSPECIFIED SNOMED Code(s): 981706537 (2) MIGUEL ANGEL (acute kidney injury) Current Visit: No Status: Acute Code(s): N17.9 - ACUTE KIDNEY FAILURE, UNSPECIFIED SNOMED Code(s): 82280900 (3) CAD (coronary artery disease) Current Visit: Yes Status: Acute Code(s): I25.10 - ATHSCL HEART DISEASE OF [place] CORONARY ARTERY W/O ANG PCTRS SNOMED Code(s): 64464593 (4) Cellulitis of both lower extremities Narrative/Plan: 73-year-old male presents to Hospital from the [facility] care facility where he is receiving care after his open heart procedure for repair of his severe mitral valve stenosis which was done by the mitral valve repair as well as cordite and any repair. In September he had undergone his percutaneous intervention with stenting in drug-eluting stents. The patient had the significant increasing amount of edema to the lower extremity such that he developed multiple blisters left greater than right. Silvadene and wraps are applied to help with the edema and help with the tissue. Antibiotic therapy with Zosyn and vancomycin has been initiated given his significant level of illness at the time of his presentation. Cultures are process and will de-escalate antibiotics as cultures become available. Elevation of the limbs well at rest is very important in conjunction with the current wraps her be applied. Is 100 and 2. a fever has resolved. His acute renal failure seems to be improving and his leukocytosis will be monitored. Current Visit: Yes Status: Acute Code(s): L03.115 - CELLULITIS OF RIGHT LOWER LIMB; L03.116 - CELLULITIS OF LEFT LOWER LIMB SNOMED Code(s): 015012276
[2018-12-01] MEDS: PIPERACILLIN-TAZOBACTAM 3.375 GM in SODIUM CHLORIDE 0.9% 100 ML IVPB SCH ×3 (01:48→16:06)
[2018-12-01 06:17] LABS: Anisocytosis Slight; Basophils % (A) 0 %; Eosinophils # (A) 0.4 k/uL (0-0.7); Eosinophils % (A) 5 %; HCT 23.9 % (39.0-53.0); HGB 7.5 gm/dL (13.0-17.5); Hypochromasia Marked; Lymphocytes # (A) 0.5 k/uL (1.0-4.8); Lymphocytes % (A) 6 %; MCH 31.1 pg (25.0-35.0); MCHC 31.2 g/dL (31.0-37.0); MCV 99.6 fL (80.0-100.0); Macrocytosis Slight; Mean Platelet Volume 7.2; Monocytes # (A) 0.4 k/uL (0-1.0); Monocytes % (A) 5 %; Neutrophils # (A) 6.4 k/uL (1.3-7.7); Neutrophils % (A) 82 %; Platelet Count 169 k/uL (150-450); RDW 17.3 % (11.5-15.5); WBC 7.7 k/uL (3.8-10.6)
[2018-12-01 06:22] LABS: Calcium 8.4 mg/dL (8.4-10.2); Potassium 4.7 mmol/L (3.5-5.1)
[2018-12-01 06:53] LABS: Glucose,Whole Blood 107 mg/dL (75-99)
[2018-12-01] MEDS: INSULIN ASPART (NovoLOG) 100 UNIT/ML VIAL SQ SCH ×3 (08:24→17:06)
[2018-12-01] MEDS: PANTOPRAZOLE 40 MG TABLET PO SCH (08:25)
[2018-12-01] MEDS: CLOPIDOGREL 75 MG TAB PO SCH (08:25)
[2018-12-01] MEDS: AMIODARONE 200 MG TAB PO SCH (08:25)
--- NOTE | 2018-12-01 09:06 | P.PN ---
Subjective Patient is seen in follow-up for acute kidney injury on chronic kidney disease. Patient has chronic kidney disease stage III with baseline creatinine near 1.5. Renal function is stable. Patient became hypotensive yesterday and was transferred to the intensive care unit. He received 2 L of normal saline bolus. Diuretics are held. No active chest pain or shortness of breath. He is nonoliguric. Vital signs are stable. General: The patient appeared well nourished and normally developed. HEENT: Head exam is unremarkable. Neck is without jugular venous distension. LUNGS: Lungs are clear to auscultation and percussion. Breath sounds decreased. HEART: Rate and Rhythm are regular. First and second heart sounds normal. No murmurs, rubs or gallops. ABDOMEN: Abdominal exam reveals normal bowel sounds. Non-tender and non- distended. No evidence of peritonitis. EXTREMITITES: 1+ edema. Wrapped. No obvious drainage. Objective - Vital Signs Vital signs: Vital Signs Temp 98.1 F 12/01/18 08:00 Pulse 80 12/01/18 08:30 Resp 23 12/01/18 08:30 BP 136/68 12/01/18 08:30 Pulse Ox 97 12/01/18 08:30 Intake & Output 11/30/18 12/01/18 12/01/18 18:59 06:59 18:59 Intake Total 220 885 100 Output Total 905 880 210 Balance -685 5 -110 Weight 105 kg Intake: IV 100 825 0.9 75 Piperacillin-Tazobactam 3 200 .375 gm In Sodium Chloride 0.9% 100 ml @ 25 mls/hr IVPB Q8HR [facility] Rx# :[id number] Sodium Chloride 0.9% 1, 25 125 000 ml @ 25 mls/hr IV . Q24H [facility] Rx#:[id number] Vancomycin 1,750 mg In 500 Sodium Chloride 0.9% 500 ml 500 ml @ 167 mls/hr IVPB Q36H [facility] Rx#: [id number] Intake, IV Titration 100 Amount Piperacillin-Tazobactam 3 100 .375 gm In Sodium Chloride 0.9% 100 ml @ 25 mls/hr IVPB Q8HR [facility] Rx# :[id number] Oral 120 60 Output: Urine 905 880 210 Other: Voiding Method Indwelling Catheter Indwelling Catheter - Labs CBC & Chem 7: 12/01/18 05:31 12/01/18 05:31 Labs: Abnormal Lab Results - Last 24 Hours (Table) 11/29/18 11/30/18 11/30/18 Range/Units 13:55 11:44 14:15 RBC (4.30-5.90) m/uL Hgb (13.0-17.5) gm/dL Hct (39.0-53.0) % RDW (11.5-15.5) % Lymphocytes # (1.0-4.8) k/uL BUN (9-20) mg/dL Creatinine (0.66-1.25) mg/dL Glucose (74-99) mg/dL POC Glucose (mg/dL) 165 H 113 H (75-99) mg/dL Iron 18 L (65-175) ug/dL Iron Saturation 6.04 L (15.00-50.00) Ferritin 1042.1 H (22.0-322.0) ng/mL 11/30/18 11/30/18 12/01/18 Range/Units 17:14 20:37 05:31 RBC 2.40 L (4.30-5.90) m/uL Hgb 7.5 L (13.0-17.5) gm/dL Hct 23.9 L (39.0-53.0) % RDW 17.3 H (11.5-15.5) % Lymphocytes # 0.5 L (1.0-4.8) k/uL BUN (9-20) mg/dL Creatinine (0.66-1.25) mg/dL Glucose (74-99) mg/dL POC Glucose (mg/dL) 104 H 180 H (75-99) mg/dL Iron (65-175) ug/dL Iron Saturation (15.00-50.00) Ferritin (22.0-322.0) ng/mL 12/01/18 12/01/18 Range/Units 05:31 06:51 RBC (4.30-5.90) m/uL Hgb (13.0-17.5) gm/dL Hct (39.0-53.0) % RDW (11.5-15.5) % Lymphocytes # (1.0-4.8) k/uL BUN 57 H (9-20) mg/dL Creatinine 1.82 H (0.66-1.25) mg/dL Glucose 112 H (74-99) mg/dL POC Glucose (mg/dL) 107 H (75-99) mg/dL Iron (65-175) ug/dL Iron Saturation (15.00-50.00) Ferritin (22.0-322.0) ng/mL Microbiology - Last 24 Hours (Table) 11/29/18 22:30 Urine Culture - Final Urine,Clean Catch 11/29/18 22:30 Gram Stain - Preliminary Ankle - Left Wound Culture - Preliminary Gram Neg Bacilli Gram Neg Bacilli#2 11/29/18 13:55 Blood Culture - Preliminary Blood No Growth after 24 hours Assessment and Plan Plan: Assessment: 1. Acute kidney injury mostly prerenal secondary to cardiorenal syndrome. Creatinine was 1.9 on admission and is stable at 1.82 today. UA is quite benign. No evidence of hydronephrosis on ultrasound from last month. 2. Chronic kidney disease stage III. Baseline creatinine near 1.5. 3. Volume overload. 4. Coronary artery disease status post stenting. 5. 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 6. Insulin-dependent diabetes mellitus. 7. Lower extremity cellulitis maintained on IV antibiotics. Wound culture positive for gram-negative bacilli. 8. Anemia of chronic kidney disease. Iron deficiency noted. Maintained on Aranesp. Plan: Resume Lasix 40 mg IV once daily. IV iron 3 doses. First dose today. Follow-up morning chest x-ray. Continue to monitor renal function and urine output.
[2018-12-01] MEDS: FUROSEMIDE 10 MG/ML 4 ML VIAL IV SCH (09:26)
[2018-12-01] MEDS: ACETAMINOPHEN TAB 325 MG TAB PO PRN (09:26)
[2018-12-01] MEDS: SODIUM FERRIC GLUCONAT-SUCROSE 125 MG in SODIUM CHLORIDE 0.9% 100 ML IVPB SCH (10:11)
--- NOTE | 2018-12-01 10:20 | XR ---
EXAMINATION TYPE: XR chest 1V DATE OF EXAM: 12/01/2018 COMPARISON: 11/29/2018 INDICATION: CHF TECHNIQUE: Single frontal view of the chest is obtained. FINDINGS: The heart size is moderately prominent grade sternotomy wires are present from prior CABG. The pulmonary vasculature is normal. The lungs are clear. IMPRESSION: 1. No acute pulmonary process. To moderate cardiomegaly
[2018-12-01 11:45] LABS: Glucose,Whole Blood 235 mg/dL (75-99)
--- NOTE | 2018-12-01 13:08 | P.PN ---
Subjective Progress Note Date: 12/01/18 73-year-old male patient with previous history of mitral valve repair with a very slow recovery and ultimately was discharged to rehabilitation. Posterior the patient was admitted for an acute kidney injury from which she recovered and the kidney function went back to its baseline. The patient was discharged back to [facility] where he underwent further rehabilitation and ultimately was discharged home where he states 2 days and he came back to the hospital because of worsening lower extremities edema and ulceration and fever. The patient was initially was admitted to the medical floor he was given diuretics. He was having significant amount of pitting edema lower extremities bilaterally. Tr oponins were minimally elevated. His hemoglobin was at 8.2. His creatinine was at 1.8. The patient subsequently became hypotensive. He had a transient hypotension and got moved to the intensive care unit. Currently he is afebrile although on admission had a temperature of 102.8. He was seen by infectious disease. Lower extremity edema and ulceration was noted. He was placed on a combination of antibiotics. He was given a bolus of 500 mL and currently his blood pressure is normalized without the use of any pressors. No altered mentation. No significant cough or sputum production. No chest pain. He is known to have coronary artery disease with previous stenting of the LAD, diastol ic heart failure, hypertension and hyperlipidemia and diabetes mellitus and peripheral neuropathy. He also suffers from staged 3 chronic kidney disease, COPD and obstructive sleep apnea and he has a component of secondary pulmonary hypertension related to his valvular heart disease. Currently is on a combination of vancomycin and Zosyn. Diuretics have been discontinued. He is also receiving normal saline at rate of 25 mL an hour. Tolerating his diet. On today's evaluation of 12/01/2018, I'm seeing this patient for a follow-up. The patient doing better than yesterday. No issues with blood pressure. The patient did not require any pressors. After being given a bolus of 500 mL, the blood pressure normalizes. The patient has ulceration of the lower extremities bilaterally. Cultures showed gram-negative bacillus and final cultures are still pending for now. Meanwhile he is covered with a combination of Zosyn and vancomycin. He is using incentive spirometer. Sternum stable clean and intact. Cardiac rhythm is sinus. No nausea. No vomiting. No emesis. He does have some increased swelling lower extremities bilaterally. He has chronic stage III kidney disease in the patient's creatinine has remained stable at 1.8. His repeat echocardiogram showed moderate degree of mitral regurgitation with pulmonary hypertension. No other significant events otherwise for now. He is awake and alert and following commands and answering questions appropriately. He is receiving daily Lasix 40 mg IV push every 24 hours. Objective - Vital Signs Vital signs: Vital Signs Temp 97.9 F 12/01/18 12:00 Pulse 78 12/01/18 12:00 Resp 14 12/01/18 12:00 BP 133/60 12/01/18 12:00 Pulse Ox 95 12/01/18 12:00 Intake & Output 11/30/18 12/01/18 12/01/18 18:59 06:59 18:59 Intake Total 220 885 200 Output Total 463 585 4857 Balance -685 5 -860 Weight 105 kg 118.7 kg Intake: IV 100 825 0.9 75 Piperacillin-Tazobactam 3 200 .375 gm In Sodium Chloride 0.9% 100 ml @ 25 mls/hr IVPB Q8HR [facility] Rx# :[id number] Sodium Chloride 0.9% 1, 25 125 000 ml @ 25 mls/hr IV . Q24H [facility] Rx#:[id number] Vancomycin 1,750 mg In 500 Sodium Chloride 0.9% 500 ml 500 ml @ 167 mls/hr IVPB Q36H [facility]IME Rx#: [id number] Intake, IV Titration 200 Amount Piperacillin-Tazobactam 3 100 .375 gm In Sodium Chloride 0.9% 100 ml @ 25 mls/hr IVPB Q8HR [facility]IME Rx# :[id number] Sodium Ferric Gluconat- 100 Sucrose 125 mg In Sodium Chloride 0.9% 100 ml @ 100 mls/hr IVPB DAILY JAIME Rx#:[id number] Oral 120 60 Output: Urine 752 [id number] Other: Voiding Method Indwelling Catheter Indwelling Catheter Indwelling Catheter - Exam Obese, comfortable likely distress BMI of 37.4 Head exam was generally normal. There was no scleral icterus or corneal arcus. Mucous membranes were moist. Neck was supple and without jugular venous distension, thyromegaly, or carotid bruits. Carotids were easily palpable bilaterally. There was no adenopathy. Lungs sounds are diminished bilaterally especially lung bases. Sternal stable clean and intact. Cardiac exam revealed the PMI to be normally situated and sized. The rhythm was regular and no extrasystoles were noted during several minutes of auscultation. The first and second heart sounds were normal and physiologic splitting of the second heart sound was noted. There were no murmurs, rubs, clicks, or gallops. Abdominal exam revealed normal bowel sounds. The abdomen was soft, non-tender, and without masses, organomegaly, or appreciable enlargement of the abdominal aorta. Extremities are currently wrapped. Pictures taken earlier and photos were reviewed regarding the ulceration lower extremities. Patient also has +1-2 pitting edema Neurologically awake and alert and there is no focal neurological deficit of the cranial nerves are intact. - Labs CBC & Chem 7: 12/01/18 05:31 12/01/18 05:31 Labs: Abnormal Lab Results - Last 24 Hours (Table) 11/29/18 11/30/18 11/30/18 Range/Units 13:55 14:15 17:14 RBC (4.30-5.90) m/uL Hgb (13.0-17.5) gm/dL Hct (39.0-53.0) % RDW (11.5-15.5) % Lymphocytes # (1.0-4.8) k/uL BUN (9-20) mg/dL Creatinine (0.66-1.25) mg/dL Glucose (74-99) mg/dL POC Glucose (mg/dL) 113 H 104 H (75-99) mg/dL Iron 18 L (65-175) ug/dL Iron Saturation 6.04 L (15.00-50.00) Ferritin 1042.1 H (22.0-322.0) ng/mL 11/30/18 12/01/18 12/01/18 Range/Units 20:37 05:31 05:31 RBC 2.40 L (4.30-5.90) m/uL Hgb 7.5 L (13.0-17.5) gm/dL Hct 23.9 L (39.0-53.0) % RDW 17.3 H (11.5-15.5) % Lymphocytes # 0.5 L (1.0-4.8) k/uL BUN 57 H (9-20) mg/dL Creatinine 1.82 H (0.66-1.25) mg/dL Glucose 112 H (74-99) mg/dL POC Glucose (mg/dL) 180 H (75-99) mg/dL Iron (65-175) ug/dL Iron Saturation (15.00-50.00) Ferritin (22.0-322.0) ng/mL 12/01/18 12/01/18 Range/Units 06:51 11:44 RBC (4.30-5.90) m/uL Hgb (13.0-17.5) gm/dL Hct (39.0-53.0) % RDW (11.5-15.5) % Lymphocytes # (1.0-4.8) k/uL BUN (9-20) mg/dL Creatinine (0.66-1.25) mg/dL Glucose (74-99) mg/dL POC Glucose (mg/dL) 107 H 235 H (75-99) mg/dL Iron (65-175) ug/dL Iron Saturation (15.00-50.00) Ferritin (22.0-322.0) ng/mL Microbiology - Last 24 Hours (Table) 11/29/18 22:30 Urine Culture - Final Urine,Clean Catch 11/29/18 22:30 Gram Stain - Preliminary Ankle - Left Wound Culture - Preliminary Gram Neg Bacilli Gram Neg Bacilli#2 11/29/18 13:55 Blood Culture - Preliminary Blood No Growth after 24 hours Assessment and Plan Plan: 1 lower extremity edema with some limited ulceration without clear indication of infection/cellulitis. Currently on accommodation Zosyn and vancomycin. The patient was diuresed also with improvement of the lower extremity edema and currently the legs are wraps. The preliminary cultures from the wound showing gram-negative bacillus. He is still on accommodation Zosyn and vancomycin. ID is on the case. Legs of still wrapped 2 hypotension recovered and the patient was given a bolus of 500 mL of normal saline. This is likely secondary to medications/diuresis monitor the patient's blood pressures been stable without any patient with blood pressure over the past 12 hours. 3 Severe mitral valve regurgitation with severely calcified mitral annulus, torn chordae to P1 posterior leaflet. He is status post complex mitral valve repair with resection of torn chordae to P1, posterior leaflet plication of P1 and P2, small resection P1-P2 leaflet, plication of both anterior mitral trigones, clip ligation of left atrial appendage. The most recent echocardiogram during this current hospitalization showed moderate degree of regurgitation with secondary pulmonary hypertension. The patient is currently on Lasix 40 mg IV push 24 hours. 4 chronic diastolic heart failure 5 Coronary artery disease with recent stent placement to the LAD on 09/24/2018. 6 chronic kidney disease stage III, creatinine is stable 7 hypertension 8 hyperlipidemia 9 diabetes mellitus 10 obstructive sleep apnea. 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 FEV1 value of 54% p redicted. Plan Agree on the current management. Continue same treatment. Continue gentle diuresis. The patient is hemodynamically stable. Awaiting final cultures from the lower extremity wounds. Local wound care. Cardiology is on the case. We'll continue to follow.
--- NOTE | 2018-12-01 13:31 | PN ---
PROGRESS NOTE This patient was admitted to the hospital with bilateral leg swelling and possible cellulitis. The patient became hypotensive, but he improved with the fluid challenge. He is feeling better. His vital signs remained stable. Blood pressure is 133/60 mmHg. Patient is afebrile. First and second heart sounds are heard. Lungs are clinically clear to auscultation and percussion. Wound culture is growing gram-negative bacilli. The patient continues to have some leg swelling. Chest x-ray does not show any evidence of significant failure. Patient's creatinine is now 1.82 and urine output is improved. We will continue the current medications. MMODL / IJN: [id number] /
--- NOTE | 2018-12-01 15:36 | P.PN ---
Subjective Progress Note Date: 12/01/18 Principal diagnosis: Cellulitis of both lower extremities, fever, acute kidney injury. History of severe concentric mitral valve regurgitation with severely calcified mitral annulus status post complex mitral valve repair on 10/31/[address] Lozada, coronary artery disease with recent drug-eluting stent placed to the left anterior descending coronary artery in September 2018, chronic diastolic heart failure, hypertension, hyperlipidemia, type 2 diabetes mellitus with peripheral neuropathy and a preoperative hemoglobin A1c of 7%, chronic kidney disease with a baseline creatinine around 2, moderate chronic obstructive pulmonary disease with a preoperative FEV1 of 54% of predicted value, obstructive sleep apnea without home CPAP use, pulmonary hypertension, obesity, previous tobacco dependence and postoperative transaminitis and paroxysmal atrial fibrillation. The patient is laying in bed in the intensive care unit. He is in no acute distress. He currently denies any complaints of pain and reports that his shortness of breath has improved since yesterday. The patient was transferred to the intensive care unit yesterday after experiencing some hypotension after receiving a dose of Lasix. He was fluid resuscitated and his Lasix was discontinued. The patient did not require any pressor support. He remains afebrile within the last 24 hours and his T-max temperature is 98.2F. He continues on Zosyn and vancomycin being managed by infectious disease. He does have some swelling to his bilateral lower extremities which has improved in the last 24 hours. He remains with Zi wraps in place from toes to just below the knee to his bilateral lower extremities. Bedside telemetry is showing normal sinus rhythm heart rate 75. His current blood pressure is 136/68. He had a repeat limited 2-D echocardiogram completed yesterday which showed an overall left ventricular systolic function to be low normal with an ejection fraction between 50 and 55% and moderate mitral valve regurgitation. He remains on 2 L nasal cannula with oxygen saturation is 95%. Objective - Vital Signs Vital signs: Vital Signs Temp 97.9 F 12/01/18 12:00 Pulse 75 12/01/18 15:00 Resp 23 12/01/18 15:00 BP 132/61 12/01/18 15:00 Pulse Ox 94 L 12/01/18 15:00 Intake & Output 11/30/18 12/01/18 12/01/18 18:59 06:59 18:59 Intake Total 220 885 200 Output Total 120 443 6115 Balance -685 5 -1640 Weight 105 kg 118.7 kg Intake: IV 100 825 0.9 75 Piperacillin-Tazobactam 3 200 .375 gm In Sodium Chloride 0.9% 100 ml @ 25 mls/hr IVPB Q8HR [facility] Rx# :[id number] Sodium Chloride 0.9% 1, 25 125 000 ml @ 25 mls/hr IV . Q24H [facility] Rx#:[id number] Vancomycin 1,750 mg In 500 Sodium Chloride 0.9% 500 ml 500 ml @ 167 mls/hr IVPB Q36H [facility] Rx#: [id number] Intake, IV Titration 200 Amount Piperacillin-Tazobactam 3 100 .375 gm In Sodium Chloride 0.9% 100 ml @ 25 mls/hr IVPB Q8HR [facility] Rx# :[id number] Sodium Ferric Gluconat- 100 Sucrose 125 mg In Sodium Chloride 0.9% 100 ml @ 100 mls/hr IVPB DAILY [facility] Rx#:[id number] Oral 120 60 Output: Urine 336 [id number] [id number] Other: Voiding Method Indwelling Catheter Indwelling Catheter Indwelling Catheter - Constitutional General appearance: Present: cooperative, no acute distress, obese - Respiratory Details: lungs sounds essentially clear to his bilateral upper lobes, diminished to his bilateral bases. Respirations are symmetrical and nonlabored. - Cardiovascular Details: Regular rhythm and rate. S1 and S2 present, negative for S3, gallop or murmur. Sternum is stable. Heart hugger is in place and he is demonstrating appropriate use. Zi wraps are in place to his bilateral lower extremities from toes to just below the knee. - Gastrointestinal Gastrointestinal Comment(s): Abdomen soft, nontender and nondistended. Active bowel sounds present in all 4 abdominal quadrants. No guarding or rigidity. No organomegaly appreciated. - Genitourinary Genitourinary Comment(s): Urine output is adequate. - Integumentary Integumentary Comment(s): Skin is warm and dry. No clubbing or cyanosis is present. +2 edema to his bilateral lower extremities. Midline sternal incision is clean, dry and approximated. No drainage or redness is present. - Neurologic Neurologic: Present: CNII-XII intact - Musculoskeletal Musculoskeletal: Present: gait normal, generalized weakness, strength equal b ilaterally - Psychiatric Psychiatric: Present: A&O x's 3, appropriate affect, intact judgment & insight - Allied health notes Allied health notes reviewed: nursing - Labs CBC & Chem 7: 12/01/18 05:31 12/01/18 05:31 Labs: Abnormal Lab Results - Last 24 Hours (Table) 11/29/18 11/30/18 11/30/18 Range/Units 13:55 17:14 20:37 RBC (4.30-5.90) m/uL Hgb (13.0-17.5) gm/dL Hct (39.0-53.0) % RDW (11.5-15.5) % Lymphocytes # (1.0-4.8) k/uL BUN (9-20) mg/dL Creatinine (0.66-1.25) mg/dL Glucose (74-99) mg/dL POC Glucose (mg/dL) 104 H 180 H (75-99) mg/dL Iron 18 L (65-175) ug/dL Iron Saturation 6.04 L (15.00-50.00) Ferritin 1042.1 H (22.0-322.0) ng/mL 12/01/18 12/01/18 12/01/18 Range/Units 05:31 05:31 06:51 RBC 2.40 L (4.30-5.90) m/uL Hgb 7.5 L (13.0-17.5) gm/dL Hct 23.9 L (39.0-53.0) % RDW 17.3 H (11.5-15.5) % Lymphocytes # 0.5 L (1.0-4.8) k/uL BUN 57 H (9-20) mg/dL Creatinine 1.82 H (0.66-1.25) mg/dL Glucose 112 H (74-99) mg/dL POC Glucose (mg/dL) 107 H (75-99) mg/dL Iron (65-175) ug/dL Iron Saturation (15.00-50.00) Ferritin (22.0-322.0) ng/mL 12/01/18 Range/Units 11:44 RBC (4.30-5.90) m/uL Hgb (13.0-17.5) gm/dL Hct (39.0-53.0) % RDW (11.5-15.5) % Lymphocytes # (1.0-4.8) k/uL BUN (9-20) mg/dL Creatinine (0.66-1.25) mg/dL Glucose (74-99) mg/dL POC Glucose (mg/dL) 235 H (75-99) mg/dL Iron (65-175) ug/dL Iron Saturation (15.00-50.00) Ferritin (22.0-322.0) ng/mL Microbiology - Last 24 Hours (Table) 11/29/18 22:30 Urine Culture - Final Urine,Clean Catch 11/29/18 22:30 Gram Stain - Preliminary Ankle - Left Wound Culture - Preliminary Gram Neg Bacilli Gram Neg Bacilli#2 11/29/18 13:55 Blood Culture - Preliminary Blood No Growth after 24 hours - Imaging and Cardiology Chest x-ray: report reviewed, image reviewed Assessment and Plan Assessment: 1. Chronic kidney disease stage III with a baseline creatinine of 1.5-2.0 2. Acute lower extremity cellulitis, fever, elevated WBC cell count. 3. History of severe eccentric mitral valve regurgitation, severely calcified mitral annulus, torn chordae to the P1 posterior leaflet, status post complex mitral valve repair on 10/31/2018 3. History of coronary artery disease with recent drug-eluting stent placed to his left anterior descending coronary artery on 09/24/2018 4. Chronic diastolic heart failure 5. Hypertension 6. Hyperlipidemia 7. Diabetes mellitus type 2, with peripheral neuropathy 8. Anemia of chronic kidney disease 9. Moderate chronic obstructive pulmonary disease 10. Obstructive sleep apnea without home CPAP use 11. Pulmonary hypertension 12. Obesity 13. Osteoarthritis 14. History of tobacco dependence, previous pipe 15. History of paroxysmal atrial fibrillation 16. History of transaminitis Plan: 1. Continue to optimize with medical management, continue aspirin, Plavix, and beta sun. The patient will be started on a statin once his liver enzymes have normalized. 2. Avoid nephrotoxic agents. 3. Diuresis management per nephrology. 4. Increase activity as tolerated. PT/OT and cardiac rehab following. 5. Antibiotic management per infectious disease. Wound care recommendations per infectious disease. 6. Encourage use of his incentive spirometry every hour while awake. 7. Continue to reinforce open heart discharge instructions. Shower daily, no lifting pushing and pulling anything greater than 10 pounds or jug of milk for 12 weeks. Continue to encourage use of his heart hugger. 8. May transfer back to cardiac stepdown unit when bed available per the cardiothoracic surgery standpoint. 9. GI and DVT prophylaxis. 10. When the patient is not ambulating or sitting up for meals he is to have his legs elevated higher than the level of his heart 6-8 inches. 11. More recommendations follow based on patient's clinical course. Time with Patient: Greater than 30
[2018-12-01] MEDS: ASPIRIN 81 MG PO SCH (16:14)
[2018-12-01] MEDS: LIPASE 5,000/PROTEASE 17,000/AMYLASE 24,000 PO SCH (16:14)
[2018-12-01] MEDS: FERROUS SULFATE 325 MG TAB PO SCH (16:14)
[2018-12-01] MEDS: MULTIVITAMINS, THERA 1 EACH TAB PO SCH (16:15)
[2018-12-01] MEDS: CHOLECALCIFEROL 1,000 UNIT TAB PO SCH (16:17)
[2018-12-01 16:41] LABS: Glucose,Whole Blood 113 mg/dL (75-99)
[2018-12-01] MEDS: VANCOMYCIN 1,750 MG in SODIUM CHLORIDE 0.9% 500 ML 500 ML IVPB SCH (17:37)
[2018-12-01] MEDS: SODIUM CHLORIDE 0.9% 1,000 ML IV SCH (17:38)
[2018-12-01] MEDS: Acetaminophen-Codeine 300-30mg TAB PO PRN ×2 (18:43→18:45)
--- NOTE | 2018-12-01 20:33 | PN ---
PROGRESS NOTE DATE OF SERVICE: 12/01/2018 This 73-year-old gentleman with a past medical history of multiple medical problems admitted with acute bilateral leg cellulitis possible sepsis. Patient also had diffuse generalized weakness also with possible myopathy. Yesterday, the patient developed hypotension which is improved with IV normal saline, possibly secondary to hypovolemia. The patient also had severe mitral regurgitation and recently had a surgery also. Patient has being closely monitored in ICU at this time. The most recent chest x-ray which was personally reviewed by me showed cardiomegaly and some atelectasis also. PAST MEDICAL HISTORY: Reviewed. REVIEW OF SYSTEMS: Cardiovascular as mentioned. Respiratory as mentioned earlier. GI no nausea or vomiting. : No dysuria. CENTRAL NERVOUS SYSTEM: No numbness or weakness. CURRENT MEDICATIONS: Reviewed and include: 1. Tylenol 650 q.6h p.r.n. 2. Tylenol #3. 3. Ventolin 2.5 q.6h. 4. Cordarone 200 mg p.o. daily. 5. Zenpep daily. 6. Aspirin 81 mg p.o. daily. 7. Dulcolax 10 mg p.r.n. 8. Vitamin D3. 9. Plavix 75 mg p.o. daily. 11.Iron sulfate. 12.Lasix 40 mg IV daily. 13.NovoLog scale. 14.Levemir 10 units subcu q.h.s. 15.Multivitamins. 16.Narcan. 17.Protonix 40 mg. 18.Zosyn 3.375 IV q.8. 19.Senokot-S. 20.Silvadene cream. 21.Vancomycin 1.75 mg q.24 hours. PHYSICAL EXAM: Patient is alert, oriented x2. Pulse 75. Blood pressure 132/61, respiration 22, temperature normal, pulse ox 94% on 2 L. HEENT: Conjunctivae normal. Oral mucosa moist. NECK is no jugular venous distention. No carotid bruit. No lymph node enlargement. CARDIOVASCULAR SYSTEM: Normal S1, S2. RESPIRATORY: Breath sounds diminished in the bases. Bilateral scattered rhonchi and crackles. Expiratory wheezing also present. ABDOMEN: Soft, obese, nontender. No mass palpable. LEGS: Bilateral leg edema. NERVOUS SYSTEM: Higher functions as mentioned earlier. Moves all 4 limbs. No focal motor or sensory deficits. LYMPHATICS: No lymph nodes palpable in the neck, axilla or groin. SKIN: No ulcers, rashes or bleeding. JOINTS: No active deforming arthropathy. LABS: WBC 7.7, hemoglobin 7.5, sodium 137, potassium 4.7, creatinine is 1.82, glucose 107, 235. ASSESSMENT: 1. Acute bilateral leg cellulitis with sepsis, present on admission. 2. Diffuse generalized weakness, possible myopathy, present on admission. 3. Hypotension, possibly secondary to hypovolemia. 4. Increased WBC. 5. Anemia of chronic disease. 6. Change in mental status, metabolic encephalopathy, acute, multifactorial. 7. Hyponatremia. 8. Increased creatinine with chronic kidney disease stage III. 9. Elevated AST and ALT with possible hepatitis. 10.Troponin 0.043, indeterminate. 11.Congestive heart failure with chronic diastolic dysfunction. 12.Recent mitral replacement for mitral regurgitation. 13.History of coronary artery disease stent. 14.History of pulmonary hypertension. 15.Dyslipidemia. 16.History of gastroesophageal reflux disease. 17.Diabetes mellitus type 2 with diabetic nephropathy. 18.Gait dysfunction. 19.Change in mental status, acute metabolic encephalopathy, multifactorial. 20.History of obstructive sleep apnea. 21.History of degenerative joint disease. 22.FULL CODE. RECOMMENDATIONS AND DISCUSSION: In this 73-year-old gentleman who presented with multiple complex medical issues, we will monitor the patient closely. Continue the current medications, management and symptomatic treatment. Otherwise, at this time, continue the broad-spectrum IV antibiotics. Creatinine is 1.82 at this time. We will continue with a small dose of diuretics. Otherwise, chest x-ray reviewed as mentioned earlier. Guarded prognosis because of multiple complex medical issues. Further recommendations to follow. The creatinine was 1.8 today, which is rather stable. Hemoglobin 7.5. We will continue to monitor. Repeat labs will be ordered. Otherwise, CRP is still elevated as mentioned earlier. We will continue to monitor with empiric antibiotics. Further recommendations to follow. MMODL / IJN: [id number] / [facility]
[2018-12-01 20:37] LABS: Glucose,Whole Blood 160 mg/dL (75-99)
[2018-12-01] MEDS: INSULIN DETEMIR (LEVEMIR) 100 UNIT/ML SYR SQ SCH (22:42)
[2018-12-02] MEDS: PIPERACILLIN-TAZOBACTAM 3.375 GM in SODIUM CHLORIDE 0.9% 100 ML IVPB SCH ×3 (00:58→17:21)
[2018-12-02] MEDS: Acetaminophen-Codeine 300-30mg TAB PO PRN ×2 (01:05→08:24)
[2018-12-02 06:13] LABS: Anisocytosis Slight; Basophils # (A) 0.1 k/uL (0-0.2); Basophils % (A) 2 %; Eosinophils # (A) 0.3 k/uL (0-0.7); Eosinophils % (A) 3 %; HCT 22.5 % (39.0-53.0); Hypochromasia Marked; Lymphocytes # (A) 0.4 k/uL (1.0-4.8); Lymphocytes % (A) 6 %; MCH 30.2 pg (25.0-35.0); MCHC 30.9 g/dL (31.0-37.0); MCV 97.8 fL (80.0-100.0); Macrocytosis Slight; Mean Platelet Volume 7.5; Monocytes # (A) 0.6 k/uL (0-1.0); Monocytes % (A) 7 %; Neutrophils # (A) 6.2 k/uL (1.3-7.7); Neutrophils % (A) 81 %; Platelet Count 192 k/uL (150-450); RDW 17.3 % (11.5-15.5); WBC 7.6 k/uL (3.8-10.6)
[2018-12-02 06:26] LABS: Calcium 8.3 mg/dL (8.4-10.2); Potassium 4.3 mmol/L (3.5-5.1)
[2018-12-02 06:54] LABS: Glucose,Whole Blood 129 mg/dL (75-99)
[2018-12-02] MEDS: INSULIN ASPART (NovoLOG) 100 UNIT/ML VIAL SQ SCH ×3 (06:57→18:20)
[2018-12-02] MEDS: PANTOPRAZOLE 40 MG TABLET PO SCH (06:57)
[2018-12-02] MEDS: FUROSEMIDE 10 MG/ML 4 ML VIAL IV SCH ×3 (07:30→21:08)
--- NOTE | 2018-12-02 07:32 | XR ---
EXAMINATION TYPE: XR chest 1V portable DATE OF EXAM: 12/02/2018 COMPARISON: 12/01/2018 HISTORY: Congestive heart failure TECHNIQUE: Single frontal view of the chest is obtained. FINDINGS: There is a large cardiomediastinal silhouette with retrocardiac airspace disease with at l east small left pleural effusion. Left midlung airspace disease is also seen. Post CABG changes the c hest are noted. Diffuse osseous demineralization. Degenerative changes of the spine and shoulders are mild. Pulmonary vessels are prominent. No discrete interstitial edema. IMPRESSION: Retrocardiac airspace disease with at least a small left pleural effusion. Additional at electasis or pneumonia are considerations. Minimal pulmonary vascular prominence without discrete int erstitial edema.
[2018-12-02] MEDS: ALBUTEROL NEBULIZED 2.5 MG/3 ML INHALATION PRN (07:49)
[2018-12-02] MEDS: CLOPIDOGREL 75 MG TAB PO SCH (08:24)
[2018-12-02] MEDS: AMIODARONE 200 MG TAB PO SCH (08:24)
[2018-12-02] MEDS: METOPROLOL TARTRATE 50 MG TAB PO SCH ×2 (08:24→21:08)
[2018-12-02] MEDS ORDERED: MORPHINE SULFATE 2 MG/ML SYRINGE IVP PRN (09:41)
--- NOTE | 2018-12-02 09:57 | P.PN ---
Subjective Patient is seen in follow-up for acute kidney injury on chronic kidney disease. Patient has chronic kidney disease stage III with baseline creatinine near 1.5. Renal function is improved. Hypotension has resolved. On lasix 40 mg IV bid. Vital signs are stable. General: The patient appeared well nourished and normally developed. HEENT: Head exam is unremarkable. Neck is without jugular venous distension. LUNGS: Lungs are clear to auscultation and percussion. Breath sounds decreased. HEART: Rate and Rhythm are regular. First and second heart sounds normal. No murmurs, rubs or gallops. ABDOMEN: Abdominal exam reveals normal bowel sounds. Non-tender and non- distended. No evidence of peritonitis. EXTREMITITES: 1+ edema. Erythema noted. No obvious drainage. Objective - Vital Signs Vital signs: Vital Signs Temp 98.1 F 12/02/18 08:00 Pulse 91 12/02/18 08:05 Resp 17 12/02/18 08:00 BP 162/77 12/02/18 08:00 Pulse Ox 97 12/02/18 08:00 Intake & Output 12/01/18 12/02/18 12/02/18 18:59 06:59 18:59 Intake Total 800 340 222 Output Total 2295 1285 Balance -1495 -945 222 Weight 108 kg Intake: IV 100 160 Piperacillin-Tazobactam 3 100 100 .375 gm In Sodium Chloride 0.9% 100 ml @ 25 mls/hr IVPB Q8HR [facility] Rx# :[id number] Sodium Chloride 0.9% 1, 60 000 ml @ 25 mls/hr IV . Q24H [facility] Rx#:[id number] Intake, IV Titration 700 Amount Piperacillin-Tazobactam 3 100 .375 gm In Sodium Chloride 0.9% 100 ml @ 25 mls/hr IVPB Q8HR [facility] Rx# :[id number] Sodium Ferric Gluconat- 100 Sucrose 125 mg In Sodium Chloride 0.9% 100 ml @ 100 mls/hr IVPB DAILY [facility] Rx#:[id number] Vancomycin 1,750 mg In 500 Sodium Chloride 0.9% 500 ml 500 ml @ 167 mls/hr IVPB Q24H [facility] Rx#: [id number] Oral 180 222 Output: Urine 2295 1285 Other: Voiding Method Indwelling Catheter Indwelling Catheter - Labs CBC & Chem 7: 12/02/18 05:06 12/02/18 05:06 Labs: Abnormal Lab Results - Last 24 Hours (Table) 12/01/18 12/01/18 12/01/18 Range/Units 11:44 16:39 20:36 RBC (4.30-5.90) m/uL Hgb (13.0-17.5) gm/dL Hct (39.0-53.0) % MCHC (31.0-37.0) g/dL RDW (11.5-15.5) % Lymphocytes # (1.0-4.8) k/uL Sodium (137-145) mmol/L BUN (9-20) mg/dL Creatinine (0.66-1.25) mg/dL Glucose (74-99) mg/dL POC Glucose (mg/dL) 235 H 113 H 160 H (75-99) mg/dL Calcium (8.4-10.2) mg/dL 12/02/18 12/02/18 12/02/18 Range/Units 05:06 05:06 06:53 RBC 2.30 L (4.30-5.90) m/uL Hgb 7.0 L (13.0-17.5) gm/dL Hct 22.5 L (39.0-53.0) % MCHC 30.9 L (31.0-37.0) g/dL RDW 17.3 H (11.5-15.5) % Lymphocytes # 0.4 L (1.0-4.8) k/uL Sodium 136 L (137-145) mmol/L BUN 52 H (9-20) mg/dL Creatinine 1.47 H (0.66-1.25) mg/dL Glucose 108 H (74-99) mg/dL POC Glucose (mg/dL) 129 H (75-99) mg/dL Calcium 8.3 L (8.4-10.2) mg/dL Microbiology - Last 24 Hours (Table) 11/29/18 22:30 Gram Stain - Preliminary Ankle - Left Wound Culture - Preliminary Pseudomonas aeruginosa Gram Neg Bacilli 11/29/18 13:55 Blood Culture - Preliminary Blood No Growth after 48 hours Assessment and Plan Plan: Assessment: 1. Acute kidney injury mostly prerenal secondary to cardiorenal syndrome. Renal function is better. Creatinine 1.47 today. UA is quite benign. No evidence of hydronephrosis on ultrasound from last month. 2. Chronic kidney disease stage III. Baseline creatinine near 1.5. 3. Volume overload. Currently on IV Lasix. 4. Coronary artery disease status post stenting. 5. 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 6. Insulin-dependent diabetes mellitus. 7. Lower extremity cellulitis maintained on IV antibiotics. Wound culture positive for Pseudomonas. 8. Anemia of chronic kidney disease. Iron deficiency noted. Maintained on Ar anesp. Plan: Maintain IV Lasix 40 mg twice daily. IV iron 3 doses. Second dose today. Continue to monitor renal function and urine output.
[2018-12-02] MEDS: SODIUM FERRIC GLUCONAT-SUCROSE 125 MG in SODIUM CHLORIDE 0.9% 100 ML IVPB SCH (11:28)
--- NOTE | 2018-12-02 11:49 | P.PN ---
Subjective Progress Note Date: 12/02/18 73-year-old male patient with previous history of mitral valve repair with a very slow recovery and ultimately was discharged to rehabilitation. Posterior the patient was admitted for an acute kidney injury from which she recovered and the kidney function went back to its baseline. The patient was discharged back to [facility] where he underwent further rehabilitation and ultimately was discharged home where he states 2 days and he came back to the hospital because of worsening lower extremities edema and ulceration and fever. The patient was initially was admitted to the medical floor he was given diuretics. He was having significant amount of pitting edema lower extremities bilaterally. Tr oponins were minimally elevated. His hemoglobin was at 8.2. His creatinine was at 1.8. The patient subsequently became hypotensive. He had a transient hypotension and got moved to the intensive care unit. Currently he is afebrile although on admission had a temperature of 102.8. He was seen by infectious disease. Lower extremity edema and ulceration was noted. He was placed on a combination of antibiotics. He was given a bolus of 500 mL and currently his blood pressure is normalized without the use of any pressors. No altered mentation. No significant cough or sputum production. No chest pain. He is known to have coronary artery disease with previous stenting of the LAD, diastol ic heart failure, hypertension and hyperlipidemia and diabetes mellitus and peripheral neuropathy. He also suffers from staged 3 chronic kidney disease, COPD and obstructive sleep apnea and he has a component of secondary pulmonary hypertension related to his valvular heart disease. Currently is on a combination of vancomycin and Zosyn. Diuretics have been discontinued. He is also receiving normal saline at rate of 25 mL an hour. Tolerating his diet. On today's evaluation of 12/01/2018, I'm seeing this patient for a follow-up. The patient doing better than yesterday. No issues with blood pressure. The patient did not require any pressors. After being given a bolus of 500 mL, the blood pressure normalizes. The patient has ulceration of the lower extremities bilaterally. Cultures showed gram-negative bacillus and final cultures are still pending for now. Meanwhile he is covered with a combination of Zosyn and vancomycin. He is using incentive spirometer. Sternum stable clean and intact. Cardiac rhythm is sinus. No nausea. No vomiting. No emesis. He does have some increased swelling lower extremities bilaterally. He has chronic stage III kidney disease in the patient's creatinine has remained stable at 1.8. His repeat echocardiogram showed moderate degree of mitral regurgitation with pulmonary hypertension. No other significant events otherwise for now. He is awake and alert and following commands and answering questions appropriately. He is receiving daily Lasix 40 mg IV push every 24 hours. On 12/02/2018, the patient is hemodynamic is stable. In fact his blood pressure has normalized and it's higher on today's evaluation. His lower extremity edema is improved. The wounds were noted. The patient has vesicle formations due to lower extremity edema and there was large vesicle on the lateral aspect of the left ankle. There is another ulcer over the anterior aspect of the left lower extremity chest some purulent base. Cultures from that is showing gram- negative/pseudomonas. Currently on Zosyn. Vancomycin is also on board. He is receiving Lasix once a day. His chest x-ray today is showing edema and cardiomegaly. No fever. No chills. Still on oxygen at 4 L per minute nasal cannula. Denies having any chest pain. Sternum stable clean and intact. Is complaining of chronic pain and neuropathy and lower extremity and his mobility is limited. No cough no sputum production. No hemoptysis. No other complaints otherwise for now. Objective - Vital Signs Vital signs: Vital Signs Temp 98.1 F 12/02/18 08:00 Pulse 64 12/02/18 11:00 Resp 16 12/02/18 11:00 BP 112/52 12/02/18 11:00 Pulse Ox 97 12/02/18 11:00 Intake & Output 12/01/18 12/02/18 12/02/18 18:59 06:59 18:59 Intake Total 800 340 322 Output Total 3134 6806 700 Balance -1495 -945 -378 Weight 108 kg Intake: IV 100 160 100 Piperacillin-Tazobactam 3 100 100 100 .375 gm In Sodium Chloride 0.9% 100 ml @ 25 mls/hr IVPB Q8HR [facility] Rx# :[id number] Sodium Chloride 0.9% 1, 60 000 ml @ 25 mls/hr IV . Q24H [facility] Rx#:[id number] Intake, IV Titration 700 Amount Piperacillin-Tazobactam 3 100 .375 gm In Sodium Chloride 0.9% 100 ml @ 25 mls/hr IVPB Q8HR [facility] Rx# :[id number] Sodium Ferric Gluconat- 100 Sucrose 125 mg In Sodium Chloride 0.9% 100 ml @ 100 mls/hr IVPB DAILY [facility] Rx#:[id number] Vancomycin 1,750 mg In 500 Sodium Chloride 0.9% 500 ml 500 ml @ 167 mls/hr IVPB Q24H [facility] Rx#: [id number] Oral 180 222 Output: Urine 2295 1285 700 Other: Voiding Method Indwelling Catheter Indwelling Catheter Indwelling Catheter - Exam Obese, comfortable likely distress BMI of 37.4 Head exam was generally normal. There was no scleral icterus or corneal arcus. Mucous membranes were moist. Neck was supple and without jugular venous distension, thyromegaly, or carotid bruits. Carotids were easily palpable bilaterally. There was no adenopathy. Lungs sounds are diminished bilaterally especially lung bases. Sternal stable clean and intact. Cardiac exam revealed the PMI to be normally situated and sized. The rhythm was regular and no extrasystoles were noted during several minutes of auscultation. The first and second heart sounds were normal and physiologic splitting of the second heart sound was noted. There were no murmurs, rubs, clicks, or gallops. Abdominal exam revealed normal bowel sounds. The abdomen was soft, non-tender, and without masses, organomegaly, or appreciable enlargement of the abdominal aorta. Extremities are currently wrapped. Pictures taken earlier and photos were reviewed regarding the ulceration lower extremities. Patient also has +1-2 pitting edema Neurologically awake and alert and there is no focal neurological deficit of the cranial nerves are intact. - Labs CBC & Chem 7: 12/02/18 05:06 12/02/18 05:06 Labs: Abnormal Lab Results - Last 24 Hours (Table) 12/01/18 12/01/18 12/02/18 Range/Units 16:39 20:36 05:06 RBC 2.30 L (4.30-5.90) m/uL Hgb 7.0 L (13.0-17.5) gm/dL Hct 22.5 L (39.0-53.0) % MCHC 30.9 L (31.0-37.0) g/dL RDW 17.3 H (11.5-15.5) % Lymphocytes # 0.4 L (1.0-4.8) k/uL Sodium (137-145) mmol/L BUN (9-20) mg/dL Creatinine (0.66-1.25) mg/dL Glucose (74-99) mg/dL POC Glucose (mg/dL) 113 H 160 H (75-99) mg/dL Calcium (8.4-10.2) mg/dL 12/02/18 12/02/18 Range/Units 05:06 06:53 RBC (4.30-5.90) m/uL Hgb (13.0-17.5) gm/dL Hct (39.0-53.0) % MCHC (31.0-37.0) g/dL RDW (11.5-15.5) % Lymphocytes # (1.0-4.8) k/uL Sodium 136 L (137-145) mmol/L BUN 52 H (9-20) mg/dL Creatinine 1.47 H (0.66-1.25) mg/dL Glucose 108 H (74-99) mg/dL POC Glucose (mg/dL) 129 H (75-99) mg/dL Calcium 8.3 L (8.4-10.2) mg/dL Microbiology - Last 24 Hours (Table) 11/29/18 22:30 Gram Stain - Preliminary Ankle - Left Wound Culture - Preliminary Pseudomonas aeruginosa Gram Neg Bacilli 11/29/18 13:55 Blood Culture - Preliminary Blood No Growth after 48 hours Assessment and Plan Plan: 1 lower extremity edema with some limited ulceration without clear indication of infection/cellulitis. There may be an infection with gram-negative/pseudomonal infection and the patient is currently on IV Zosyn. Vancomycin will be discontinued. The patient is having Silvadene applies to the lower extremities. The legs are wrapped and the patient is being diuresed with adequate response in lower oximetry edema. He is on Lasix 40 mg by IV 2 hypotension recovered, and the patient is hypertensive on today's evaluation 3 Severe mitral valve regurgitation with severely calcified mitral annulus, torn chordae to P1 posterior leaflet. He is status post complex mitral valve repair with resection of torn chordae to P1, posterior leaflet plication of P1 and P2, small resection P1-P2 leaflet, plication of both anterior mitral trigones, clip ligation of left atrial appendage. The most recent echocardiogram during this current hospitalization showed moderate degree of regurgitation with secondary pulmonary hypertension. The patient is currently on Lasix 40 mg IV push 24 hours. 4 chronic diastolic heart failure 5 Coronary artery disease with recent stent placement to the LAD on 09/24/2018. 6 chronic kidney disease stage III, creatinine is stable 7 hypertension 8 hyperlipidemia 9 diabetes mellitus 10 obstructive sleep apnea. 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 FEV1 value of 54% predicted. 16 iron deficiency anemia Plan Please related to 40 mg every 12 hours. Discontinue the vancomycin. Continue IV Zosyn. Local wound care. Increased mobility. Physical therapy. Sitting IV iron regarding his iron deficiency anemia with a hemoglobin of 7. We'll continue to follow.
--- NOTE | 2018-12-02 11:52 | P.PN ---
Subjective Progress Note Date: 12/02/18 Principal diagnosis: Cellulitis of both lower extremities with positive wound culture showing Pseudomonas aeruginosa and gram-negative bacilli, fever, acute kidney injury. History of severe concentric mitral valve regurgitation with severely calcified mitral annulus status post complex mitral valve repair on 10/31/[address] Lozada, coronary artery disease with recent drug-eluting stent placed to the left anterior descending coronary artery in September 2018, chronic diastolic heart failure, hypertension, hyperlipidemia, type 2 diabetes mellitus with peripheral neuropathy and a preoperative hemoglobin A1c of 7%, chronic kidney disease with a baseline creatinine around 2, moderate chronic obstructive pulmonary disease with a preoperative FEV1 of 54% of predicted value, obstructive sleep apnea without home CPAP use, pulmonary hypertension, obesity, previous tobacco dependence and postoperative transaminitis and paroxysmal atrial fibrillation. The patient is laying in bed in the intensive care unit. He is in no acute distress. He is complaining of pain to his bilateral lower extremities and reports he is having episodes of shortness of breath. The edema to his bilateral lower extremities has improved. Reinforced with the patient the importance of keeping his legs elevated higher than the level of his heart when not ambulating or sitting up for meals. He remains hemodynamically stable and is currently on no inotropic or pressor support. He remains afebrile within the last 24 hours and his T-max temperature is 98.5F. He continues on Zosyn and his vancomycin has been discontinued. He remains with Zi wraps in place from toes to just below the knee to his bilateral lower extremities. Bedside telemetry is showing normal sinus rhythm heart rate 96. He remains on 2 L nasal cannula with oxygen saturation is 94%. The patient is also complaining about a nosebleed. Objective - Vital Signs Vital signs: Vital Signs Temp 98.1 F 12/02/18 08:00 Pulse 64 12/02/18 11:00 Resp 16 12/02/18 11:00 BP 112/52 12/02/18 11:00 Pulse Ox 97 12/02/18 11:00 Intake & Output 12/01/18 12/02/18 12/02/18 18:59 06:59 18:59 Intake Total 800 340 322 Output Total 3489 7514 700 Balance -1495 -945 -378 Weight 108 kg Intake: IV 100 160 100 Piperacillin-Tazobactam 3 100 100 100 .375 gm In Sodium Chloride 0.9% 100 ml @ 25 mls/hr IVPB Q8HR [facility] Rx# :[id number] Sodium Chloride 0.9% 1, 60 000 ml @ 25 mls/hr IV . Q24H [facility] Rx#:[id number] Intake, IV Titration 700 Amount Piperacillin-Tazobactam 3 100 .375 gm In Sodium Chloride 0.9% 100 ml @ 25 mls/hr IVPB Q8HR [facility] Rx# :[id number] Sodium Ferric Gluconat- 100 Sucrose 125 mg In Sodium Chloride 0.9% 100 ml @ 100 mls/hr IVPB DAILY [facility] Rx#:[id number] Vancomycin 1,750 mg In 500 Sodium Chloride 0.9% 500 ml 500 ml @ 167 mls/hr IVPB Q24H [facility] Rx#: [id number] Oral 180 222 Output: Urine 2295 1285 700 Other: Voiding Method Indwelling Catheter Indwelling Catheter Indwelling Catheter - Constitutional General appearance: Present: cooperative, no acute distress, obese - Respiratory Details: Lungs sounds essentially clear to his bilateral upper lobes, diminished to his bilateral bases. No wheezes, rhonchi or crackles present. Respirations are symmetrical and nonlabored. Oxygen saturation 94% on 2 L nasal cannula. - Cardiovascular Details: Regular rhythm and rate. S1 and S2 present, negative for S3, gallop or murmur. +1 edema to his bilateral feet. - Gastrointestinal Gastrointestinal Comment(s): Abdomen is soft, nontender and nondistended. Active bowel sounds present in all 4 abdominal quadrants. No guarding or rigidity. No organomegaly appreciated. - Genitourinary Genitourinary Comment(s): Burrell catheter for accurate I&O. Draining clear yellow urine. - Integumentary Integumentary Comment(s): Skin is warm and dry. No clubbing or cyanosis is present. Scattered blistering to his bilateral lower extremities. Some scattered erythema to his bilateral lower extremities. Scant serous drainage from his blister to his left foot. - Neurologic Neurologic: Present: CNII-XII intact - Musculoskeletal Musculoskeletal: Present: gait normal, generalized weakness, strength equal bilaterally - Psychiatric Psychiatric: Present: A&O x's 3, appropriate affect, intact judgment & insight - Allied health notes Allied health notes reviewed: nursing - Labs CBC & Chem 7: 12/02/18 05:06 12/02/18 05:06 Labs: Abnormal Lab Results - Last 24 Hours (Table) 12/01/18 12/01/18 12/01/18 Range/Units 11:44 16:39 20:36 RBC (4.30-5.90) m/uL Hgb (13.0-17.5) gm/dL Hct (39.0-53.0) % MCHC (31.0-37.0) g/dL RDW (11.5-15.5) % Lymphocytes # (1.0-4.8) k/uL Sodium (137-145) mmol/L BUN (9-20) mg/dL Creatinine (0.66-1.25) mg/dL Glucose (74-99) mg/dL POC Glucose (mg/dL) 235 H 113 H 160 H (75-99) mg/dL Calcium (8.4-10.2) mg/dL 12/02/18 12/02/18 12/02/18 Range/Units 05:06 05:06 06:53 RBC 2.30 L (4.30-5.90) m/uL Hgb 7.0 L (13.0-17.5) gm/dL Hct 22.5 L (39.0-53.0) % MCHC 30.9 L (31.0-37.0) g/dL RDW 17.3 H (11.5-15.5) % Lymphocytes # 0.4 L (1.0-4.8) k/uL Sodium 136 L (137-145) mmol/L BUN 52 H (9-20) mg/dL Creatinine 1.47 H (0.66-1.25) mg/dL Glucose 108 H (74-99) mg/dL POC Glucose (mg/dL) 129 H (75-99) mg/dL Calcium 8.3 L (8.4-10.2) mg/dL Microbiology - Last 24 Hours (Table) 11/29/18 22:30 Gram Stain - Preliminary Ankle - Left Wound Culture - Preliminary Pseudomonas aeruginosa Gram Neg Bacilli 11/29/18 13:55 Blood Culture - Preliminary Blood No Growth after 48 hours - Imaging and Cardiology Chest x-ray: report reviewed, image reviewed Assessment and Plan Assessment: 1. Chronic kidney disease stage III with a baseline creatinine of 1.5-2.0 2. Acute lower extremity cellulitis, fever, elevated WBC cell count, wound culture positive for pseudomonas aeruginosa and gram-negative bacilli 3. History of severe eccentric mitral valve regurgitation, severely calcified mitral annulus, torn chordae to the P1 posterior leaflet, status post complex mitral valve repair on 10/31/2018 3. History of coronary artery disease with recent drug-eluting stent placed to his left anterior descending coronary artery on 09/24/2018 4. Chronic diastolic heart failure 5. Hypertension 6. Hyperlipidemia 7. Diabetes mellitus type 2, with peripheral neuropathy 8. Anemia of chronic kidney disease 9. Moderate chronic obstructive pulmonary disease 10. Obstructive sleep apnea without home CPAP use 11. Pulmonary hypertension 12. Obesity 13. Osteoarthritis 14. History of tobacco dependence, previous pipe 15. History of paroxysmal atrial fibrillation 16. History of transaminitis Plan: 1. Continue to optimize with medical management, continue aspirin, Plavix, and beta sun. His metoprolol tartrate 50 mg by mouth twice a day was restarted today. The patient will be started on a statin once his liver enzymes have normalized. 2. Avoid nephrotoxic agents. 3. Diuresis management per nephrology. Lasix was increased to 40 mg IV every 12 hours. 4. Increase activity as tolerated. PT/OT following. 5. Antibiotic management per infectious disease. Wound care recommendations per infectious disease. 6. Encourage use of his incentive spirometry every hour while awake. 7. Continue to reinforce open heart discharge instructions. Shower daily, no lifting pushing and pulling anything greater than 10 pounds or jug of milk for 12 weeks. Continue to encourage use of his heart hugger. 8. May transfer back to cardiac stepdown unit when bed available per the cardiothoracic surgery standpoint. 9. GI and DVT prophylaxis. 10. When the patient is not ambulating or sitting up for meals he is to have his legs elevated higher than the level of his heart 6-8 inches. 11. More recommendations follow based on patient's clinical course. Time with Patient: Greater than 30
[2018-12-02 11:59] LABS: Glucose,Whole Blood 142 mg/dL (75-99)
--- NOTE | 2018-12-02 14:54 | PN ---
PROGRESS NOTE This patient is admitted with bilateral leg edema and cellulitis. Patient is status post mitral valve replacement. The patient remains hemodynamically stable. Heart rate is 65 per minute, blood pressure is 124/68 mmHg. First and second heart sounds are normal. Lungs are fairly clear to auscultation and percussion. Patient's creatinine is 1.47. A chest x-ray does not show any significant failure. Patient will be continued on the current IV Lasix. He still continues to have a 2+ edema. If the patient's renal functions remain stable we can add Aldactone 25 mg daily from tomorrow. MMODL / IJN: [id number] /
[2018-12-02] MEDS: HYDROmorphone 1 MG/ML 1 ML SYRINGE IVP PRN (14:56)
[2018-12-02 17:06] LABS: Glucose,Whole Blood 91 mg/dL (75-99)
[2018-12-02] MEDS: ASPIRIN 81 MG PO SCH (17:22)
[2018-12-02] MEDS: ACETAMINOPHEN TAB 325 MG TAB PO PRN (17:22)
[2018-12-02] MEDS: LIPASE 5,000/PROTEASE 17,000/AMYLASE 24,000 PO SCH (17:22)
[2018-12-02] MEDS: CHOLECALCIFEROL 1,000 UNIT TAB PO SCH (17:22)
[2018-12-02] MEDS: MULTIVITAMINS, THERA 1 EACH TAB PO SCH (17:22)
[2018-12-02] MEDS: FERROUS SULFATE 325 MG TAB PO SCH (17:22)
[2018-12-02] MEDS: SODIUM CHLORIDE 0.9% 1,000 ML IV SCH (17:27)
[2018-12-02 21:10] LABS: Glucose,Whole Blood 178 mg/dL (75-99)
[2018-12-02] MEDS: INSULIN DETEMIR (LEVEMIR) 100 UNIT/ML SYR SQ SCH (21:53)
--- NOTE | 2018-12-03 00:03 | PN ---
PROGRESS NOTE DATE OF SERVICE: 12/02/2018. This 73-year-old gentleman was admitted to the hospital with acute bilateral leg cellulitis and sepsis also complaining of generalized weakness and myopathy. Patient also hypotensive. Patient also had some fluid overload also. Patient being closely monitored at this time. The multiple consultants are following the patient closely. The patient being closely monitored in ICU. Please note patient recently had a mitral valve replacement. PAST MEDICAL HISTORY: Reviewed. REVIEW OF SYSTEMS: Cardiovascular system: As mentioned earlier. RESPIRATORY: As mentioned earlier. GI no nausea or vomiting. no dysuria. NERVOUS SYSTEM: No numbness or weakness. CURRENT MEDICATIONS: Reviewed and include: 1. Tylenol 650 q.6h. 2. Tylenol #3. 3. Ventolin. 4. Cordarone 200 mg p.o. daily. 5. Zenpep. 6. Aspirin 81 mg. 7. Dulcolax 10 mg daily p.r.n. 8. Vitamin D3. 9. Plavix 75 mg p.o. 10.Iron supplement. 11.Iron sulfate. 12.Lasix 40 mg IV b.i.d. 13.Dilaudid. 14.NovoLog. 15.Levemir. 16.Milk of magnesia. 17.Lopressor. 18.Multivitamins. 19.Narcan. 20.Protonix. 21.Zosyn 3.375 IV q.8h. 22.Senokot-S. PHYSICAL EXAMINATION: Alert and oriented times three. Pulse 68, blood pressure is 140/52, respiration 13, temperature 100.2. Pulse ox 100 percent on 2 L. HEENT is conjunctivae normal. NECK: No jugular venous distention. CARDIOVASCULAR: S1, S2 muffled. RESPIRATIONS: Breath sounds diminished in the bases. Bilateral scattered rhonchi and crackles. ABDOMEN is soft, nontender. LEGS: Bilateral leg edema. No swelling. NERVOUS SYSTEM: No focal deficits. LAB STUDIES: WBC 7.7, hemoglobin 7, sodium 136. ASSESSMENT: 1. Pseudomonas aeruginosa as well as gram-negative bacilli. 2. Acute bilateral leg cellulitis with sepsis present on admission. 3. Diffuse generalized weakness, possible myopathy, present on admission. 4. Hypotension possibly secondary to hypovolemia. 5. Increased WBC. 6. Anemia of chronic disease. 7. Change in mental status, acute metabolic encephalopathy, multifactorial. 8. Hyponatremia. 9. Increased creatinine with chronic kidney stage III. 10.Elevated AST/ALT with possible hepatitis. 11.Troponin 0.043, indeterminate. 12.Congestive heart failure with chronic diastolic dysfunction. 13.Recent mitral valve replacement for mitral regurgitation. 14.History of coronary artery disease/stent. 15.History of pulmonary hypertension. 16.Dyslipidemia. 17.History of gastroesophageal reflux disease. 18.Diabetes mellitus type 2 with diabetic nephropathy. 19.Gait dysfunction. 20.Change in mental status acute metabolic encephalopathy, multifactorial. 21.History of obstructive sleep apnea. 22.History of degenerative joint disease. 23.FULL CODE. 24. RECOMMENDATIONS AND DISCUSSION: Recommend to continue current medications, continue to monitor, symptomatic treatment. Otherwise, at this time, I recommend continue with antibiotics. Cultures are showing wound culture showing Pseudomonas aeruginosa, gram-negative bacilli. The patient is on IV Zosyn currently. We will continue to monitor closely. Follow with Infectious Disease and multiple consultants. Further recommendations to follow. MMKARLAL / GORDYN: [id number] /
[2018-12-03] MEDS: PIPERACILLIN-TAZOBACTAM 3.375 GM in SODIUM CHLORIDE 0.9% 100 ML IVPB SCH ×3 (00:08→17:07)
[2018-12-03] MEDS: HYDROmorphone 1 MG/ML 1 ML SYRINGE IVP PRN ×4 (04:23→22:36)
[2018-12-03 05:37] LABS: Anisocytosis Slight; Basophils # (A) 0.3 k/uL (0-0.2); Basophils % (A) 2 %; Eosinophils # (A) 0.2 k/uL (0-0.7); Eosinophils % (A) 1 %; HCT 25.3 % (39.0-53.0); HGB 7.7 gm/dL (13.0-17.5); Hypochromasia Marked; Lymphocytes # (A) 0.3 k/uL (1.0-4.8); Lymphocytes % (A) 2 %; MCH 30.5 pg (25.0-35.0); MCHC 30.6 g/dL (31.0-37.0); MCV 99.8 fL (80.0-100.0); Macrocytosis Slight; Mean Platelet Volume 7.7; Monocytes # (A) 0.9 k/uL (0-1.0); Monocytes % (A) 8 %; Neutrophils # (A) 9.5 k/uL (1.3-7.7); Neutrophils % (A) 85 %; Platelet Count 242 k/uL (150-450); RBC 2.54 m/uL (4.30-5.90); RDW 17.9 % (11.5-15.5); WBC 11.2 k/uL (3.8-10.6)
[2018-12-03 05:55] LABS: Calcium 8.6 mg/dL (8.4-10.2); Potassium 4.7 mmol/L (3.5-5.1)
[2018-12-03 07:01] LABS: Glucose,Whole Blood 163 mg/dL (75-99)
[2018-12-03] MEDS: PANTOPRAZOLE 40 MG TABLET PO SCH (07:11)
[2018-12-03 07:56] LABS: Glucose,Whole Blood 193 mg/dL (75-99)
[2018-12-03] MEDS: Acetaminophen-Codeine 300-30mg TAB PO PRN ×2 (08:00→20:09)
[2018-12-03] MEDS: INSULIN ASPART (NovoLOG) 100 UNIT/ML VIAL SQ SCH ×3 (08:01→20:47)
[2018-12-03] MEDS: FUROSEMIDE 10 MG/ML 4 ML VIAL IV SCH ×2 (08:01→20:09)
[2018-12-03] MEDS: AMIODARONE 200 MG TAB PO SCH (08:02)
[2018-12-03] MEDS: METOPROLOL TARTRATE 50 MG TAB PO SCH ×2 (08:02→20:09)
[2018-12-03] MEDS: CLOPIDOGREL 75 MG TAB PO SCH (08:02)
[2018-12-03] MEDS: ALBUTEROL NEBULIZED 2.5 MG/3 ML INHALATION PRN (08:48)
--- NOTE | 2018-12-03 08:50 | XR ---
EXAMINATION TYPE: XR chest 1V portable DATE OF EXAM: 12/03/2018 HISTORY: Shortness of breath. COMPARISON: December 02, 2018 TECHNIQUE: Single view of the chest is submitted. FINDINGS: Demonstrated are scattered senescent parenchymal change. There is a pulmonary venous congestion and small left-sided pleural effusion. Median sternotomy chavira es are noted. Mitral valve replacement changes identified. The heart continues to be enlarged. Hilar and mediastinal structures are within normal limits. Degenerative changes are seen of the dorsal spine. IMPRESSION: 1. Stable chest
--- NOTE | 2018-12-03 09:31 | P.PN ---
Subjective Progress Note Date: 12/03/18 Principal diagnosis: Cellulitis of both lower extremities with positive wound culture showing Pseudomonas aeruginosa and gram-negative bacilli, fever, acute kidney injury. History of severe concentric mitral valve regurgitation with severely calcified mitral annulus status post complex mitral valve repair on 10/31/[address] Lozada, coronary artery disease with recent drug-eluting stent placed to the left anterior descending coronary artery in September 2018, chronic diastolic heart failure, hypertension, hyperlipidemia, type 2 diabetes mellitus with peripheral neuropathy and a preoperative hemoglobin A1c of 7%, chronic kidney disease with a baseline creatinine around 2, moderate chronic obstructive pulmonary disease with a preoperative FEV1 of 54% of predicted value, obstructive sleep apnea without home CPAP use, pulmonary hypertension, obesity, previous tobacco dependence and postoperative transaminitis and paroxysmal atrial fibrillation. The patient is sitting up to the bedside chair in intensive care unit. He is in no acute distress. He is complaining of pain to his bilateral lower extremities and reports he is having episodes of shortness of breath with activity. The edema to his bilateral lower extremities is +2 this morning, Zi wraps from toes to just below the knee remain in place to his bilateral lower extremities. Reinforced with the patient the importance of keeping his legs elevated higher than the level of his heart when not ambulating or sitting up for meals. He remains hemodynamically stable and is currently on no inotropic or pressor support. T-max temperature is 100.3F in the last 24 hours. He continues on Zosyn as his wound culture from his left ankle showed positive for pseudomonas aeruginosa and Enterobacter Cloacae. Bedside telemetry is showing normal sinus rhythm heart rate 78, he was restarted on his metoprolol tartrate 50 mg by mouth twice a day yesterday. He remains on 2 L nasal cannula with oxygen saturation is 94%. Objective - Vital Signs Vital signs: Vital Signs Temp 98.9 F 12/03/18 04:00 Pulse 78 12/03/18 07:00 Resp 16 12/03/18 07:00 BP 131/66 12/03/18 07:00 Pulse Ox 94 L 12/03/18 07:00 Intake & Output 12/02/18 12/03/18 12/03/18 18:59 06:59 18:59 Intake Total 522 Output Total 1540 1280 Balance -1018 -1280 Weight 105.5 kg Intake: IV 200 Piperacillin-Tazobactam 3 200 .375 gm In Sodium Chloride 0.9% 100 ml @ 25 mls/hr IVPB Q8HR [facility] Rx# :[id number] Intake, IV Titration 100 Amount Sodium Ferric Gluconat- 100 Sucrose 125 mg In Sodium Chloride 0.9% 100 ml @ 100 mls/hr IVPB DAILY [facility] Rx#:[id number] Oral 222 Output: Urine 1540 1280 Other: Voiding Method Indwelling Catheter Indwelling Catheter - Constitutional General appearance: Present: cooperative, no acute distress, obese - Respiratory Details: Lung sounds with few scattered crackles to his bilateral bases left greater than right. Respirations are symmetrical and nonlabored. Oxygen saturation are 94% on 2 L nasal cannula. No wheezes or rhonchi. - Cardiovascular Details: Regular rhythm and rate. S1 and S2 present, negative for S3, gallop or murmur. Sternum is stable. Bedside telemetry showing normal sinus rhythm heart rate 78. - Gastrointestinal Gastrointestinal Comment(s): Abdomen is soft, nontender and nondistended. Active bowel sounds present in all 4 abdominal quadrants. No guarding or rigidity. No organomegaly present. - Genitourinary Genitourinary Comment(s): Burrell catheter for accurate I&O. Draining clear yellow urine. - Integumentary Integumentary Comment(s): Skin is warm and dry. No clubbing or cyanosis is present. No rash present. Scattered blistering to his lateral lower extremities. Scattered erythema to h is bilateral lower extremities. Bilateral lower extremities from his toes to just below his knees. +2 edema to his bilateral lower extremities. - Neurologic Neurologic: Present: CNII-XII intact - Musculoskeletal Musculoskeletal: Present: generalized weakness, strength equal bilaterally - Psychiatric Psychiatric Comment(s): Flat affect. Psychiatric: Present: A&O x's 3, intact judgment & insight - Allied health notes Allied health notes reviewed: nursing - Labs CBC & Chem 7: 12/03/18 04:28 12/03/18 04:28 Labs: Abnormal Lab Results - Last 24 Hours (Table) 12/02/18 12/02/18 12/03/18 Range/Units 11:46 21:07 04:28 WBC 11.2 H (3.8-10.6) k/uL RBC 2.54 L (4.30-5.90) m/uL Hgb 7.7 L (13.0-17.5) gm/dL Hct 25.3 L (39.0-53.0) % MCHC 30.6 L (31.0-37.0) g/dL RDW 17.9 H (11.5-15.5) % Neutrophils # 9.5 H (1.3-7.7) k/uL Lymphocytes # 0.3 L (1.0-4.8) k/uL Basophils # 0.3 H (0-0.2) k/uL Sodium (137-145) mmol/L BUN (9-20) mg/dL Creatinine (0.66-1.25) mg/dL Glucose (74-99) mg/dL POC Glucose (mg/dL) 142 H 178 H (75-99) mg/dL 12/03/18 12/03/18 12/03/18 Range/Units 04:28 06:59 07:54 WBC (3.8-10.6) k/uL RBC (4.30-5.90) m/uL Hgb (13.0-17.5) gm/dL Hct (39.0-53.0) % MCHC (31.0-37.0) g/dL RDW (11.5-15.5) % Neutrophils # (1.3-7.7) k/uL Lymphocytes # (1.0-4.8) k/uL Basophils # (0-0.2) k/uL Sodium 135 L (137-145) mmol/L BUN 64 H (9-20) mg/dL Creatinine 1.46 H (0.66-1.25) mg/dL Glucose 140 H (74-99) mg/dL POC Glucose (mg/dL) 163 H 193 H (75-99) mg/dL Microbiology - Last 24 Hours (Table) 11/29/18 22:30 Gram Stain - Final Ankle - Left Wound Culture - Final Pseudomonas aeruginosa Enterobacter cloacae 11/29/18 13:55 Blood Culture - Preliminary Blood No Growth after 72 hours - Imaging and Cardiology Chest x-ray: report reviewed, image reviewed Assessment and Plan Assessment: 1. Chronic kidney disease stage III with a baseline creatinine of 1.5-2.0 2. Acute lower extremity cellulitis, fever, elevated WBC cell count, wound culture positive for pseudomonas aeruginosa and Enterobacter cloacae 3. History of severe eccentric mitral valve regurgitation, severely calcified mitral annulus, torn chordae to the P1 posterior leaflet, status post complex mitral valve repair on 10/31/2018 3. History of coronary artery disease with recent drug-eluting stent placed to his left anterior descending coronary artery on 09/24/2018 4. Chronic diastolic heart failure 5. Hypertension 6. Hyperlipidemia 7. Diabetes mellitus type 2, with peripheral neuropathy 8. Anemia of chronic kidney disease 9. Moderate chronic obstructive pulmonary disease 10. Obstructive sleep apnea without home CPAP use 11. Pulmonary hypertension 12. Obesity 13. Osteoarthritis 14. History of tobacco dependence, previous pipe 15. History of paroxysmal atrial fibrillation 16. History of transaminitis Plan: 1. Continue to optimize with medical management, continue aspirin, Plavix, and beta sun. 2. Avoid nephrotoxic agents. 3. Diuresis management per nephrology. Lasix was increased to 40 mg IV every 12 hours yeasterday. 4. Increase activity as tolerated. PT/OT following. 5. Antibiotic management per infectious disease. Wound care recommendations per infectious disease. Vancomycin was discontinued yesterday. 6. Encourage use of his incentive spirometry every hour while awake. 7. Continue to reinforce open heart discharge instructions. Shower daily, no lifting pushing and pulling anything greater than 10 pounds or jug of milk for 12 weeks. Continue to encourage use of his heart hugger. 8. May transfer back to cardiac stepdown unit when bed available per the cardiothoracic surgery standpoint. 9. GI and DVT prophylaxis. 10. When the patient is not ambulating or sitting up for meals he is to have his legs elevated higher than the level of his heart 6-8 inches. 11. More recommendations follow based on patient's clinical course. Time with Patient: Greater than 30
[2018-12-03] MEDS: SODIUM FERRIC GLUCONAT-SUCROSE 125 MG in SODIUM CHLORIDE 0.9% 100 ML IVPB SCH (09:46)
--- NOTE | 2018-12-03 11:48 | P.PN ---
Subjective Progress Note Date: 12/03/18 Principal diagnosis: Cellulitis of both lower extremities secondary to pseudomonas aeruginosa and acute kidney injury. 73-year-old male patient with previous history of mitral valve repair with a very slow recovery and ultimately was discharged to rehabilitation. Posterior the patient was admitted for an acute kidney injury from which she recovered and the kidney function went back to its baseline. The patient was discharged back to [facility] where he underwent further rehabilitation and ultimately was discharged home where he states 2 days and he came back to the hospital because of worsening lower extremities edema and ulceration and fever. The patient was initially was admitted to the medical floor he was given diuretics. He was having significant amount of pitting edema lower extremities bilaterally. Troponins were minimally elevated. His hemoglobin was at 8.2. His creatinine was at 1.8. The patient subsequently became hypotensive. He had a transient hypotension and got moved to the intensive care unit. Currently he is afebrile although on admission had a temperature of 102.8. He was seen by infectious disease. Lower extremity edema and ulceration was noted. He was placed on a combination of antibiotics. He was given a bolus of 500 mL and currently his blood pressure is normalized without the use of any pressors. No altered mentation. No significant cough or sputum production. No chest pain. He is known to have coronary artery disease with previous stenting of the LAD, diastolic heart failure, hypertension and hyperlipidemia and diabetes mellitus and peripheral neuropathy. He also suffers from staged 3 chronic kidney disease, COPD and obstructive sleep apnea and he has a component of secondary pulmonary hypertension related to his valvular heart disease. Currently is on a combination of vancomycin and Zosyn. Diuretics have been discontinued. He is also receiving normal saline at rate of 25 mL an hour. Tolerating his diet. On today's evaluation of 12/01/2018, I'm seeing this patient for a follow-up. The patient doing better than yesterday. No issues with blood pressure. The patient did not require any pressors. After being given a bolus of 500 mL, the blood pressure normalizes. The patient has ulceration of the lower extremities bilaterally. Cultures showed gram-negative bacillus and final cultures are still pending for now. Meanwhile he is covered with a combination of Zosyn and vancomycin. He is using incentive spirometer. Sternum stable clean and intact. Cardiac rhythm is sinus. No nausea. No vomiting. No emesis. He does have some increased swelling lower extremities bilaterally. He has chronic stage III kidney disease in the patient's creatinine has remained stable at 1.8. His repe at echocardiogram showed moderate degree of mitral regurgitation with pulmonary hypertension. No other significant events otherwise for now. He is awake and alert and following commands and answering questions appropriately. He is receiving daily Lasix 40 mg IV push every 24 hours. On 12/02/2018, the patient is hemodynamic is stable. In fact his blood pressure has normalized and it's higher on today's evaluation. His lower extremity edema is improved. The wounds were noted. The patient has vesicle formations due to lower extremity edema and there was large vesicle on the lateral aspect of the left ankle. There is another ulcer over the anterior aspect of the left lower extremity chest some purulent base. Cultures from that is showing gram- negative/pseudomonas. Currently on Zosyn. Vancomycin is also on board. He is receiving Lasix once a day. His chest x-ray today is showing edema and cardiomegaly. No fever. No chills. Still on oxygen at 4 L per minute nasal cannula. Denies having any chest pain. Sternum stable clean and intact. Is complaining of chronic pain and neuropathy and lower extremity and his mobility is limited. No cough no sputum production. No hemoptysis. No other complaints otherwise for now. Patient was reevaluated today on 12/03/2018, remains in the intensive care unit, he is hemodynamically stable, responding fairly well to antibiotics for his ongoing cellulitis. He is hemodynamically stable, his lower extremity edema is improved. Both lower extremities are wrapped with Zi wrapping and sterile dressing. Being followed by infectious disease on the case. Microbiology from left ankle is showing pseudomonas aeruginosa and Enterobacter cloacae. Labs were reviewed relatively normal electrolytes, normal CBC hemoglobin is 7.7 BUN is 64 creatinine is 1.46. Improving, his creatinine was 1.91 on admission. Objective - Vital Signs Vital signs: Vital Signs Temp 99.1 F 12/03/18 08:00 Pulse 80 12/03/18 08:53 Resp 19 12/03/18 08:00 BP 169/94 12/03/18 08:00 Pulse Ox 94 L 12/03/18 08:00 Intake & Output 12/02/18 12/03/18 12/03/18 18:59 06:59 18:59 Intake Total 522 200 Output Total 1540 1280 150 Balance -1018 -1280 50 Weight 105.5 kg 105.5 kg Intake: IV 200 200 Piperacillin-Tazobactam 3 200 100 .375 gm In Sodium Chloride 0.9% 100 ml @ 25 mls/hr IVPB Q8HR [facility] Rx# :[id number] Sodium Ferric Gluconat- 100 Sucrose 125 mg In Sodium Chloride 0.9% 100 ml @ 100 mls/hr IVPB DAILY [facility] Rx#:[id number] Intake, IV Titration 100 Amount Sodium Ferric Gluconat- 100 Sucrose 125 mg In Sodium Chloride 0.9% 100 ml @ 100 mls/hr IVPB DAILY [facility] Rx#:[id number] Oral 222 Output: Urine 1540 1280 150 Other: Voiding Method Indwelling Catheter Indwelling Catheter Indwelling Catheter - Exam Physical Exam: Revealed 73-year-old white male in no distress. Head: Atraumatic, normocephalic. HEENT:[Neck is supple.] [No neck masses.] [No thyromegaly.] [No JVD.] Chest: [Clear throughout, no crackles, no rhonchi, no wheezes.] Cardiac Exam: [Normal S1 and S2, no S3 gallop, no murmur.] Abdomen: [Soft, nontender, no megaly, no rebound, no guarding, normal bowel sounds.] Extremities: Lower extremities are currently wrapped, being closely followed by Dr. Burrell..] Neurological Exam: Alert and oriented 3. [No focal neurologic deficit.] Psychiatric: Normal mood, affect and normal mental status examination. Lymphatics: No palpable adenopathy noted. - Labs CBC & Chem 7: 12/03/18 04:28 12/03/18 04:28 Labs: Abnormal Lab Results - Last 24 Hours (Table) 12/02/18 12/02/18 12/03/18 Range/Units 11:46 21:07 04:28 WBC 11.2 H (3.8-10.6) k/uL RBC 2.54 L (4.30-5.90) m/uL Hgb 7.7 L (13.0-17.5) gm/dL Hct 25.3 L (39.0-53.0) % MCHC 30.6 L (31.0-37.0) g/dL RDW 17.9 H (11.5-15.5) % Neutrophils # 9.5 H (1.3-7.7) k/uL Lymphocytes # 0.3 L (1.0-4.8) k/uL Basophils # 0.3 H (0-0.2) k/uL Sodium (137-145) mmol/L BUN (9-20) mg/dL Creatinine (0.66-1.25) mg/dL Glucose (74-99) mg/dL POC Glucose (mg/dL) 142 H 178 H (75-99) mg/dL 12/03/18 12/03/18 12/03/18 Range/Units 04:28 06:59 07:54 WBC (3.8-10.6) k/uL RBC (4.30-5.90) m/uL Hgb (13.0-17.5) gm/dL Hct (39.0-53.0) % MCHC (31.0-37.0) g/dL RDW (11.5-15.5) % Neutrophils # (1.3-7.7) k/uL Lymphocytes # (1.0-4.8) k/uL Basophils # (0-0.2) k/uL Sodium 135 L (137-145) mmol/L BUN 64 H (9-20) mg/dL Creatinine 1.46 H (0.66-1.25) mg/dL Glucose 140 H (74-99) mg/dL POC Glucose (mg/dL) 163 H 193 H (75-99) mg/dL Microbiology - Last 24 Hours (Table) 11/29/18 22:30 Gram Stain - Final Ankle - Left Wound Culture - Final Pseudomonas aeruginosa Enterobacter cloacae 11/29/18 13:55 Blood Culture - Preliminary Blood No Growth after 72 hours Assessment and Plan Assessment: Impression: 1 acute cellulitis of lower extremities secondary to Pseudomonas and En terobacter cloaca. 2 hypotension secondary to sepsis, resolved. 3 chronic diastolic congestive heart failure 4 coronary artery disease with recent stent placement to LAD on 09/24/2018 5 acute on chronic kidney disease, improving over the last 5 days. Patient has chronic kidney disease stage III. 6 multiple comorbidities including hypertension, diabetes, hyperlipidemia, obstructive sleep apnea syndrome, paroxysmal atrial fibrillation, diabetic peripheral neuropathy, secondary pulmonary hypertension secondary to valvular heart disease, degenerative joint disease, iron deficiency anemia, and severe COPD FEV1 is in the range of 54%. 7Severe mitral valve regurgitation with severely calcified mitral annulus, torn chordae to P1 posterior leaflet. He is status post complex mitral valve repair with resection of torn chordae to P1, posterior leaflet plication of P1 and P2, small resection P1-P2 leaflet, plication of both anterior mitral trigones, clip ligation of left atrial appendage. On 10/31/2018. Recommendation: Continue antibiotics as per infectious disease, avoid nephrotoxic agents, Continue to optimize medical management including aspirin and Plavix beta blockers, continue diuretics Lasix 40 mg every 12 hours, increase activity as tolerated, encourage incentive spirometry, transfer patient out of the ICU to a monitor bed on selective, continue GI and DVT prophylaxis, will follow. Time with Patient: Less than 30
[2018-12-03 11:56] LABS: Glucose,Whole Blood 201 mg/dL (75-99)
[2018-12-03 16:39] LABS: Glucose,Whole Blood 86 mg/dL (75-99)
[2018-12-03] MEDS: FERROUS SULFATE 325 MG TAB PO SCH (17:07)
[2018-12-03] MEDS: ASPIRIN 81 MG PO SCH (17:07)
[2018-12-03] MEDS: CHOLECALCIFEROL 1,000 UNIT TAB PO SCH (17:07)
[2018-12-03] MEDS: LIPASE 5,000/PROTEASE 17,000/AMYLASE 24,000 PO SCH (17:07)
[2018-12-03] MEDS: MULTIVITAMINS, THERA 1 EACH TAB PO SCH (17:07)
[2018-12-03 20:27] LABS: Glucose,Whole Blood 182 mg/dL (75-99)
--- NOTE | 2018-12-03 20:40 | PN ---
PROGRESS NOTE This patient was admitted with bilateral leg edema and cellulitis, status post mitral valve repair. Patient's condition remains essentially unchanged. He remains hemodynamically stable. Patient is receiving antibiotics for cellulitis. The patient's blood pressure is 169/94 mmHg, heart rate 80 per minute. First and second heart sounds are heard. Lungs are clinically clear to auscultation and percussion. Patient's creatinine is 1.46, BUN is 64, and hemoglobin is 7.7. Patient remains stable cardiac- car. We will continue the current medications. MMODL / IJN: [id number] /
[2018-12-03] MEDS: ESCITALOPRAM 10 MG TAB PO SCH (21:23)
[2018-12-03] MEDS: INSULIN DETEMIR (LEVEMIR) 100 UNIT/ML SYR SQ SCH (21:23)
--- NOTE | 2018-12-03 21:57 | P.PN ---
Subjective Progress Note Date: 12/03/18 73-year-old male presents to Hospital from the extended care facility where he has been recovering status post his extensive mitral valve repair for his mitral stenosis. There was also repair of the ruptured chordae tendon 9. Prior to the finding of severe mitral stenosis he did have coronary disease and a percutaneous intervention occurred with stenting of a drug-eluting type. Afterward the open heart procedure occurred. Due to his weakness has been recovering at the extended care facility when it was noticed that he had the rapid worsening of the lower extremities with the increasing amount of edema the tissue started to blister he developed a fever and was transferred to our facil ity. Due to the lower actually wounds and concerns to infection especially in the face of his recent surgical interventions. Consultation was requested. Patient is feeling slightly better he has identities less short of breath the lower extremities are feeling somewhat better they are less uncomfortable 12/03/2018 the patient is feeling somewhat better. Cultures of the leg cultures have been finalized and Pseudomonas and Enterobacter isolated. Patient will likely be going to rehabilitation and does have IV access. Objective - Vital Signs Vital signs: Vital Signs Temp 98.4 F 12/03/18 16:00 Pulse 93 12/03/18 19:23 Resp 16 12/03/18 16:00 BP 144/62 12/03/18 16:00 Pulse Ox 98 12/03/18 16:00 Intake & Output 12/03/18 12/03/18 12/04/18 06:59 18:59 06:59 Intake Total 200 Output Total 1280 1550 Balance -1280 -1350 Weight 105.5 kg 105.5 kg Intake: IV 200 Piperacillin-Tazobactam 3 100 .375 gm In Sodium Chloride 0.9% 100 ml @ 25 mls/hr IVPB Q8HR [facility] Rx# :[id number] Sodium Ferric Gluconat- 100 Sucrose 125 mg In Sodium Chloride 0.9% 100 ml @ 100 mls/hr IVPB DAILY [facility] Rx#:[id number] Output: Urine 1280 1550 Other: Voiding Method Indwelling Catheter Indwelling Catheter - Exam HEENT: Anicteric conjunctiva are pink and moist nasal mucosa grossly intact without significant lesions, there is no thrush. Poor dentition Neck: The neck is supple without significant lymphadenopathy or thyromegaly. Lungs: Symmetrical bilateral air entry basilar crackles are heard. Extremities no bronchial sounds Heart: Irregular audible S1 and S2 2/6 systolic murmur left sternal border PMI nondisplaced Abdomen: Positive bowel sounds soft and nontender without palpable masses or organomegaly. There was no guarding or rebound. Extremities: The upper extremities have excellent pulses they are symmetric, no significant petechiae or telangiectasia. No splinter hemorrhages were noted. The lower extremities the improved bilateral lower extremity edema is more evidence of blistering to the left leg into the right. There is evidence of the improved erythema the left leg is also mildly tender there is no purulent drainage at this time. Neuro: Awake alert oriented to person place and time. There are no acute new gross focal sensory motor deficits. - Labs CBC & Chem 7: 12/03/18 04:28 12/03/18 04:28 Labs: Abnormal Lab Results - Last 24 Hours (Table) 12/03/18 12/03/18 12/03/18 Range/Units 04:28 04:28 06:59 WBC 11.2 H (3.8-10.6) k/uL RBC 2.54 L (4.30-5.90) m/uL Hgb 7.7 L (13.0-17.5) gm/dL Hct 25.3 L (39.0-53.0) % MCHC 30.6 L (31.0-37.0) g/dL RDW 17.9 H (11.5-15.5) % Neutrophils # 9.5 H (1.3-7.7) k/uL Lymphocytes # 0.3 L (1.0-4.8) k/uL Basophils # 0.3 H (0-0.2) k/uL Sodium 135 L (137-145) mmol/L BUN 64 H (9-20) mg/dL Creatinine 1.46 H (0.66-1.25) mg/dL Glucose 140 H (74-99) mg/dL POC Glucose (mg/dL) 163 H (75-99) mg/dL 12/03/18 12/03/18 12/03/18 Range/Units 07:54 11:52 20:24 WBC (3.8-10.6) k/uL RBC (4.30-5.90) m/uL Hgb (13.0-17.5) gm/dL Hct (39.0-53.0) % MCHC (31.0-37.0) g/dL RDW (11.5-15.5) % Neutrophils # (1.3-7.7) k/uL Lymphocytes # (1.0-4.8) k/uL Basophils # (0-0.2) k/uL Sodium (137-145) mmol/L BUN (9-20) mg/dL Creatinine (0.66-1.25) mg/dL Glucose (74-99) mg/dL POC Glucose (mg/dL) 193 H 201 H 182 H (75-99) mg/dL Microbiology - Last 24 Hours (Table) 11/29/18 13:55 Blood Culture - Preliminary Blood No Growth after 96 hours 11/29/18 22:30 Gram Stain - Final Ankle - Left Wound Culture - Final Pseudomonas aeruginosa Enterobacter cloacae Laboratory Results WBC 11.2 k/uL (3.8-10.6) H 12/03/18 04:28 RBC 2.54 m/uL (4.30-5.90) L 12/03/18 04:28 Hgb 7.7 gm/dL (13.0-17.5) L 12/03/18 04:28 Hct 25.3 % (39.0-53.0) L 12/03/18 04:28 MCV 99.8 fL (80.0-100.0) 12/03/18 04:28 MCH 30.5 pg (25.0-35.0) 12/03/18 04:28 MCHC 30.6 g/dL (31.0-37.0) L 12/03/18 04:28 RDW 17.9 % (11.5-15.5) H 12/03/18 04:28 Plt Count 242 k/uL (150-450) 12/03/18 04:28 Neutrophils % 85 % 12/03/18 04:28 Lymphocytes % 2 % 12/03/18 04:28 Monocytes % 8 % 12/03/18 04:28 Eosinophils % 1 % 12/03/18 04:28 Basophils % 2 % 12/03/18 04:28 Neutrophils # 9.5 k/uL (1.3-7.7) H 12/03/18 04:28 Lymphocytes # 0.3 k/uL (1.0-4.8) L 12/03/18 04:28 Monocytes # 0.9 k/uL (0-1.0) 12/03/18 04:28 Eosinophils # 0.2 k/uL (0-0.7) 12/03/18 04:28 Basophils # 0.3 k/uL (0-0.2) H 12/03/18 04:28 Hypochromasia Marked 12/03/18 04:28 Anisocytosis Slight 12/03/18 04:28 Macrocytosis Slight 12/03/18 04:28 PT 12.2 sec (9.0-12.0) H 11/29/18 13:55 INR 1.2 (<1.2) H 11/29/18 13:55 APTT 26.7 sec (22.0-30.0) 11/29/18 13:55 Sodium 135 mmol/L (137-145) L 12/03/18 04:28 Potassium 4.7 mmol/L (3.5-5.1) 12/03/18 04:28 Chloride 99 mmol/L (98-107) 12/03/18 04:28 Carbon Dioxide 28 mmol/L (22-30) 12/03/18 04:28 Anion Gap 8 mmol/L 12/03/18 04:28 BUN 64 mg/dL (9-20) H 12/03/18 04:28 Creatinine 1.46 mg/dL (0.66-1.25) H 12/03/18 04:28 Est GFR (CKD-EPI)AfAm 54 (>60 ml/min/1.73 sqM) 12/03/18 04:28 Est GFR (CKD-EPI)NonAf 47 (>60 ml/min/1.73 sqM) 12/03/18 04:28 Glucose 140 mg/dL (74-99) H 12/03/18 04:28 POC Glucose (mg/dL) 182 mg/dL (75-99) H 12/03/18 20:24 POC Glu P 3 [employer] ID Grisel Ramirez 12/03/18 20:24 Lactic Ac Sepsis Rflx Y 11/29/18 14:30 Plasma Lactic Acid Guy 1.7 mmol/L (0.7-2.0) 11/30/18 14:15 Calcium 8.6 mg/dL (8.4-10.2) 12/03/18 04:28 Magnesium 2.0 mg/dL (1.6-2.3) 12/01/18 05:31 Iron 18 ug/dL (65-175) L 11/29/18 13:55 TIBC 298 ug/dL (228-460) 11/29/18 13:55 Iron Saturation 6.04 (15.00-50.00) L 11/29/18 13:55 Ferritin 1042.1 ng/mL (22.0-322.0) H 11/29/18 13:55 Total Bilirubin 1.1 mg/dL (0.2-1.3) 11/29/18 13:55 AST 117 U/L (17-59) H 11/29/18 13:55 ALT 90 U/L (21-72) H 11/29/18 13:55 Alkaline Phosphatase 150 U/L (38-126) H 11/29/18 13:55 Creatine Kinase 51 U/L (55-170) L 11/29/18 13:55 Troponin I 0.029 ng/mL (0.000-0.034) 11/30/18 03:01 C-Reactive Protein 327.4 mg/L (<10.0) H 11/29/18 13:55 NT-Pro-B Natriuret Pep 08846 pg/mL 11/29/18 13:55 Total Protein 6.5 g/dL (6.3-8.2) 11/29/18 13:55 Albumin 3.6 g/dL (3.5-5.0) 11/29/18 13:55 TSH 3.960 mIU/L (0.465-4.680) 11/29/18 13:55 Urine Color Yellow 11/29/18 14:05 Urine Appearance Clear (Clear) 11/29/18 14:05 Urine pH 5.0 (5.0-8.0) 11/29/18 14:05 Ur Specific [place] 1.018 (1.001-1.035) 11/29/18 14:05 Urine Protein Trace (Negative) H 11/29/18 14:05 Urine Glucose (UA) Negative (Negative) 11/29/18 14:05 Urine Ketones Negative (Negative) 11/29/18 14:05 Urine Blood Negative (Negative) 11/29/18 14:05 Urine Nitrite Negative (Negative) 11/29/18 14:05 Urine Bilirubin Negative (Negative) 11/29/18 14:05 Urine Urobilinogen <2.0 mg/dL (<2.0) 11/29/18 14:05 Ur Leukocyte Esterase Negative (Negative) 11/29/18 14:05 Microbiology 11/29/18 13:55 Blood Blood Culture - Preliminary No Growth after 96 hours 11/29/18 22:30 Ankle - Left Gram Stain - Final 11/29/18 22:30 Ankle - Left Wound Culture - Final Pseudomonas aeruginosa Enterobacter cloacae 11/29/18 22:30 Urine,Clean Catch Urine Culture - Final Assessment and Plan (1) Fever Current Visit: Yes Status: Acute Code(s): R50.9 - FEVER, UNSPECIFIED SNOMED Code(s): 738216276 (2) MIGUEL ANGEL (acute kidney injury) Current Visit: No Status: Acute Code(s): N17.9 - ACUTE KIDNEY FAILURE, UNSPECIFIED SNOMED Code(s): 55412460 (3) CAD (coronary artery disease) Current Visit: Yes Status: Acute Code(s): I25.10 - ATHSCL HEART DISEASE OF [place] CORONARY ARTERY W/O ANG PCTRS SNOMED Code(s): 52079304 (4) Cellulitis of both lower extremities Narrative/Plan: 73-year-old male presents to Hospital from the [facility] where he is receiving care after his open heart procedure for repair of his severe mitral valve stenosis which was done by the mitral valve repair as well as cordite and any repair. In September he had undergone his percutaneous intervention with stenting in drug-eluting stents. The patient had the significant increasing amount of edema to the lower extremity such that he developed multiple blisters left greater than right. Silvadene and wraps are applied to help with the edema and help with the tissue. Antibiotic therapy with Zosyn and vancomycin has been initiated given his significant level of illness at the time of his presentation. Cultures are process and will de-escalate antibiotics as cultures become available. Elevation of the limbs well at rest is very important in conjunction with the current wraps her be applied. The temperature maximum was 100.2 now the fever has resolved. His acute renal failure seems to be improving and his leukocytosis will be monitored. 12/03/2018 patient is feeling better has eaten his meal today without great difficulties. His appetite somewhat poor. Wound culture is finalized pseudomonas as well as Enterobacter although they are susceptible to fluoroquinolones the patient is on amiodarone which does not allow the utilization of quinolone therapy. We'll be able to streamline antibiotic therapy to cefepime 2 gm IVPB q12 hours when transferring to [facility] Current Visit: Yes Status: Acute Code(s): L03.115 - CELLULITIS OF RIGHT LOWER LIMB; L03.116 - CELLULITIS OF LEFT LOWER LIMB SNOMED Code(s): 233576676
--- NOTE | 2018-12-03 23:39 | P.PN ---
Subjective Progress Note Date: 12/03/18 Principal diagnosis: This is a 73-year-old male with a past medical history of multiple medical problems with recent cardiac surgery including mitral valve replacement, stent placement, myocardial infarction, pulmonary hypertension and was recently admitted for an increase in weakness with swelling and blistering of the lower legs with fever and is being closely monitored. Patient is sitting up in the chair with legs elevated sleeping but easily arousable. Family is at the bedside. Bilateral lower extremities are wrapped with Zi wraps and elevated at this time. Extremely guarded prognosis 12/03/2018 Patient is sitting up in the chair sleeping but arousable. Patient states that he is very lethargic and continues to nod off while talking. Patient is currently in the ICU and is being closely monitored. Patient lower extremities are down and not currently being elevated. Patient states that he does when he is lying in bed. Zi wraps dry and intact with obvious swelling of the bilateral lower extremities. Heart hugger is in place. patient denies any chest pain or palpitations but does state that he is short of breath with just about any movement to or from the chair. Patient has poor appetite but denies any nausea or vomiting. Patient has a low grade temp this morning of 99.1F and is being closely monitored. ID is following as well as many other consultants. Prognosis is guarded. REVIEW OF SYSTEMS: ENT: diminished vision, denies diminished hearing. CARDIOVASCULAR: denies chest pain or palpitations RESPIRATORY: denies labored breathing, reports shortness of breath with exertion GI: No nausea, vomiting or diarrhea. reports poor appetite : No dysuria or retention. NERVOUS SYSTEM: No numbness, reports weakness, reports inability to get up and walk CONSTITUTIONAL: reports lethargy and weakness DERMATOLOGY: reports swelling and drainage of the lower extremities with discomfort Active Medications Acetaminophen (Tylenol Tab) 650 mg PO Q6HR PRN PRN Reason: Mild Pain or Fever > 100.5 Last Admin: 12/02/18 17:22 Dose: 650 mg Documented by: Acetaminophen/Codeine Phosphate (Tylenol #3) 1 - 2 each PO Q6H PRN PRN Reason: Pain Last Admin: 12/03/18 20:09 Dose: 2 each Documented by: Albuterol Sulfate (Ventolin Nebulized) 2.5 mg INHALATION RT-Q6H PRN PRN Reason: Shortness Of Breath Or Wheezing Last Admin: 12/03/18 08:48 Dose: 2.5 mg Documented by: Amiodarone HCl (Cordarone) 200 mg PO DAILY [facility] Last Admin: 12/03/18 08:02 Dose: 200 mg Documented by: Lipase/Protease/Amylase (Zenpep Dr 5,000 Unit Capsule) 1 each PO DAILY@1700 [facility] Last Admin: 12/03/18 17:07 Dose: 1 each Documented by: Aspirin (Aspirin) 81 mg PO DAILY@1700 [facility] Last Admin: 12/03/18 17:07 Dose: 81 mg Documented by: Bisacodyl (Dulcolax) 10 mg RECTAL DAILY PRN PRN Reason: Constipation Cholecalciferol (Vitamin D3 (25 Mcg = 1000 Iu)) 2,000 unit PO DAILY@1700 [facility] Last Admin: 12/03/18 17:07 Dose: 2,000 unit Documented by: Clopidogrel Bisulfate (Plavix) 75 mg PO DAILY [facility] Last Admin: 12/03/18 08:02 Dose: 75 mg Documented by: Darbepoetin Ruddy (Aranesp) 40 mcg SQ Q7D [facility] Last Admin: 11/30/18 16:15 Dose: 40 mcg Documented by: Escitalopram Oxalate (Lexapro) 10 mg PO HS [facility] Last Admin: 12/03/18 21:23 Dose: 10 mg Documented by: Ferrous Sulfate (Feosol) 325 mg PO DAILY@1700 [facility] Last Admin: 12/03/18 17:07 Dose: 325 mg Documented by: Furosemide (Lasix) 40 mg IV Q12HR [facility] Last Admin: 12/03/18 20:09 Dose: 40 mg Documented by: Hydromorphone HCl (Dilaudid) 0.125 mg IVP Q6HR PRN PRN Reason: Moderate to Severe Pain Last Admin: 12/03/18 16:47 Dose: 0.125 mg Documented by: Piperacillin Sod/Tazobactam (Sod 3.375 gm/ Sodium Chloride) 100 mls @ 25 mls/hr IVPB Q8HR [facility] Last Admin: 12/03/18 17:07 Dose: 25 mls/hr Documented by: Ferric Sodium Gluconate 125 mg (/ Sodium Chloride) 110 mls @ 100 mls/hr IVPB DAILY [facility] Stop: 12/04/18 10:01 Last Admin: 12/03/18 09:46 Dose: 100 mls/hr Documented by: Insulin Aspart (Novolog) 0 unit SQ ACHS [facility]; Protocol Last Admin: 12/03/18 20:47 Dose: 3 unit Documented by: Insulin Detemir (Levemir) 10 unit SQ HS [facility] Last Admin: 12/03/18 21:23 Dose: 10 unit Documented by: Magnesium Hydroxide (Milk Of Magnesia) 2,400 mg PO DAILY PRN PRN Reason: Constipation Metoprolol Tartrate (Lopressor) 50 mg PO BID [facility] Last Admin: 12/03/18 20:09 Dose: 50 mg Documented by: Morphine Sulfate (Morphine Sulfate (Inj)) 1 mg IVP ONCE PRN PRN Reason: Pain Scale 9 To 10 Last Admin: 12/02/18 10:07 Dose: 1 mg Documented by: Multivitamins (Theragran) 1 each PO DAILY@1700 [facility] Last Admin: 12/03/18 17:07 Dose: 1 each Documented by: Naloxone HCl (Narcan) 0.2 mg IV Q2M PRN PRN Reason: Opioid Reversal Pantoprazole Sodium (Protonix) 40 mg PO AC-BRKFST [facility] Last Admin: 12/03/18 07:11 Dose: 40 mg Documented by: Senna/Docusate Sodium (Senokot-S) 2 each PO HS PRN PRN Reason: Constipation Silver Sulfadiazine (Silvadene Cream) 1 applic TOPICAL DAILY [facility] Last Admin: 12/03/18 12:43 Dose: 1 applic Documented by: Objective - Vital Signs Vital signs: Vital Signs Temp 98 F 12/03/18 20:00 Pulse 68 12/03/18 21:00 Resp 16 12/03/18 21:00 BP 136/65 12/03/18 21:00 Pulse Ox 94 L 12/03/18 20:00 Intake & Output 12/03/18 12/03/18 12/04/18 06:59 18:59 06:59 Intake Total 200 Output Total 1280 1550 Balance -1280 -1350 Weight 105.5 kg 105.5 kg Intake: IV 200 Piperacillin-Tazobactam 3 100 .375 gm In Sodium Chloride 0.9% 100 ml @ 25 mls/hr IVPB Q8HR [facility] Rx# :[id number] Sodium Ferric Gluconat- 100 Sucrose 125 mg In Sodium Chloride 0.9% 100 ml @ 100 mls/hr IVPB DAILY [facility] Rx#:[id number] Output: Urine 1280 1550 Other: Voiding Method Indwelling Catheter Indwelling Catheter Indwelling Catheter - Exam Gen: This is a 73-year-old male sitting up in the chair in no acute distress. Patient is sleeping but arousable. Vital signs are stable. Temp is 99.1F oral, pulse is 82, respirations are 19, blood pressure is 169/94, oxygen satur ation is 94% on 4 L nasal cannula HEENT: Head is atraumatic, normocephalic. Pupils equal, round. Sclerae is anicteric. NECK: Supple. No JVD. No lymphadenopathy. No thyromegaly. LUNGS: Diminished breath sounds at the bases. No wheezes or rhonchi. No intercostal retractions. HEART: S1 and S2 are muffled ABDOMEN: Soft. Obese. Bowel sounds are present. No masses. No tenderness. EXTREMITIES: Mild pedal edema. Bilateral lower extremity swelling. Zi wrap is intact. No calf tenderness. NEUROLOGICAL: Patient is sleeping but arousable, alert and oriented x3. Cranial nerves 2 through 12 are grossly intact. - Labs CBC & Chem 7: 12/03/18 04:28 12/03/18 04:28 Labs: Abnormal Lab Results - Last 24 Hours (Table) 12/03/18 12/03/18 12/03/18 Range/Units 04:28 04:28 06:59 WBC 11.2 H (3.8-10.6) k/uL RBC 2.54 L (4.30-5.90) m/uL Hgb 7.7 L (13.0-17.5) gm/dL Hct 25.3 L (39.0-53.0) % MCHC 30.6 L (31.0-37.0) g/dL RDW 17.9 H (11.5-15.5) % Neutrophils # 9.5 H (1.3-7.7) k/uL Lymphocytes # 0.3 L (1.0-4.8) k/uL Basophils # 0.3 H (0-0.2) k/uL Sodium 135 L (137-145) mmol/L BUN 64 H (9-20) mg/dL Creatinine 1.46 H (0.66-1.25) mg/dL Glucose 140 H (74-99) mg/dL POC Glucose (mg/dL) 163 H (75-99) mg/dL 12/03/18 12/03/18 12/03/18 Range/Units 07:54 11:52 20:24 WBC (3.8-10.6) k/uL RBC (4.30-5.90) m/uL Hgb (13.0-17.5) gm/dL Hct (39.0-53.0) % MCHC (31.0-37.0) g/dL RDW (11.5-15.5) % Neutrophils # (1.3-7.7) k/uL Lymphocytes # (1.0-4.8) k/uL Basophils # (0-0.2) k/uL Sodium (137-145) mmol/L BUN (9-20) mg/dL Creatinine (0.66-1.25) mg/dL Glucose (74-99) mg/dL POC Glucose (mg/dL) 193 H 201 H 182 H (75-99) mg/dL Microbiology - Last 24 Hours (Table) 11/29/18 13:55 Blood Culture - Preliminary Blood No Growth after 96 hours Assessment and Plan Assessment: Acute bilateral leg cellulitis with sepsis, present on admission pseudomonas aeruginosa as well as gram-negative bacilli; infectious disease if following. Diffuse generalized weakness with possible myopathy, present on admission hypotension possible secondary to hypovolemia Increased WBC Anemia of chronic disease Hyponatremia Change in mental status, acute metabolic encephalopathy, multifactorial Increased creatinine with chronic kidney disease stage III Elevated AST, ALT, possibly hepatitis Troponin 0.043, indeterminate Congestive heart failure with chronic diastolic dysfunction, recent mitral valve replacement for mitral regurgitation History of coronary artery disease/stent History pulmonary hypertension Hyperlipidemia History of gastroesophageal reflux disease Diabetes mellitus type 2 with diabetic nephropathy Gait dysfunction History of obstructive sleep apnea history of degenerative joint disease Full code Recommendations and discussion: Recommend to continue current medications, management, and symptomatically treatment. Will continue to monitor vital signs and labs closely Patient will continue on broad-spectrum IV antibiotics and infectious disease is following. Nephrology is following. PT/OT is following. Cardiology following. Due to multiple complex medical issues overall prognosis is extremely guarded. Further recommendations to follow.
[2018-12-04] MEDS: PIPERACILLIN-TAZOBACTAM 3.375 GM in SODIUM CHLORIDE 0.9% 100 ML IVPB SCH (00:04)
[2018-12-04 04:42] LABS: Anisocytosis Slight; Basophils # (A) 0.1 k/uL (0-0.2); Basophils % (A) 1 %; Eosinophils # (A) 0.2 k/uL (0-0.7); Eosinophils % (A) 2 %; HCT 23.6 % (39.0-53.0); HGB 7.2 gm/dL (13.0-17.5); Hypochromasia Marked; Lymphocytes # (A) 0.5 k/uL (1.0-4.8); Lymphocytes % (A) 5 %; MCH 29.7 pg (25.0-35.0); MCHC 30.6 g/dL (31.0-37.0); Macrocytosis Slight; Mean Platelet Volume 6.9; Monocytes # (A) 0.9 k/uL (0-1.0); Monocytes % (A) 8 %; Neutrophils # (A) 9.5 k/uL (1.3-7.7); Neutrophils % (A) 84 %; Platelet Count 277 k/uL (150-450); RBC 2.44 m/uL (4.30-5.90); RDW 17.7 % (11.5-15.5); WBC 11.4 k/uL (3.8-10.6)
[2018-12-04 04:56] LABS: Calcium 8.7 mg/dL (8.4-10.2); Potassium 4.3 mmol/L (3.5-5.1)
[2018-12-04] MEDS: Acetaminophen-Codeine 300-30mg TAB PO PRN ×3 (05:34→18:56)
[2018-12-04 06:52] LABS: Glucose,Whole Blood 153 mg/dL (75-99)
[2018-12-04] MEDS: INSULIN ASPART (NovoLOG) 100 UNIT/ML VIAL SQ SCH ×4 (06:54→20:47)
[2018-12-04] MEDS: PANTOPRAZOLE 40 MG TABLET PO SCH (06:54)
--- NOTE | 2018-12-04 08:09 | XR ---
EXAMINATION TYPE: XR chest 1V portable DATE OF EXAM: 12/04/2018 CLINICAL HISTORY: Difficulty breathing progress study. TECHNIQUE: Single AP portable upright view of the chest is obtained. COMPARISON: Chest x-ray from one day earlier and older studies. FINDINGS: Overlying sternal wires as well as superior cardiac closure device are redemonstrated. The re is persistent cardiomegaly. There is chronic parenchymal change with persistent left basilar opaci ty. Right lung remains clear. Osseous structures are intact. IMPRESSION: Overall stable findings, cardiomegaly and chronic parenchymal changes with small left p leural effusion and associated left basilar atelectasis and/or infiltrate all are redemonstrated.
[2018-12-04] MEDS: SODIUM FERRIC GLUCONAT-SUCROSE 125 MG in SODIUM CHLORIDE 0.9% 100 ML IVPB SCH (08:37)
[2018-12-04] MEDS: AMIODARONE 200 MG TAB PO SCH (08:46)
[2018-12-04] MEDS: CLOPIDOGREL 75 MG TAB PO SCH (08:46)
[2018-12-04] MEDS: FUROSEMIDE 10 MG/ML 4 ML VIAL IV SCH ×2 (08:46→20:48)
[2018-12-04] MEDS ORDERED: CEFEPIME 2 GM in SODIUM CHLORIDE 0.9% 100 ML IVPB SCH (09:15)
--- NOTE | 2018-12-04 10:10 | P.PN ---
Subjective Progress Note Date: 12/04/18 Principal diagnosis: Cellulitis of both lower extremities with positive wound culture showing Pseudomonas aeruginosa and gram-negative bacilli, fever, acute kidney injury. History of severe concentric mitral valve regurgitation with severely calcified mitral annulus status post complex mitral valve repair on 10/31/[address] Lozada, coronary artery disease with recent drug-eluting stent placed to the left anterior descending coronary artery in September 2018, chronic diastolic heart failure, hypertension, hyperlipidemia, type 2 diabetes mellitus with peripheral neuropathy and a preoperative hemoglobin A1c of 7%, chronic kidney disease with a baseline creatinine around 2, moderate chronic obstructive pulmonary disease with a preoperative FEV1 of 54% of predicted value, obstructive sleep apnea without home CPAP use, pulmonary hypertension, obesity, previous tobacco dependence and postoperative transaminitis and paroxysmal atrial fibrillation. The patient is sitting up to the bedside chair in intensive care unit with his bilateral lower extrmities elevated. He is in no acute distress. He continues to complain of pain to his bilateral lower extremities and reports he is having episodes of shortness of breath with activity. His edema to his bilateral lower extremities has improved in the last 24 hours and he remains with Zi wraps in place to his bilateral lower extremities from his toes to just below his knees. Reinforced with the patient the importance of keeping his legs elevated higher than the level of his heart when not ambulating or sitting up for meals. The dressings were removed from his bilateral lower extremities and he continues to have a large blister to his medial malleolus measuring 6.0 x 5.0 cm and it is fluid-filled. He also has a fluid-filled blister to his right medial malleolus measuring 3 x 3 cm. He remains hemodynamically stable and is currently on no inotropic or pressor support. He remains afebrile in the last 24 hours. He continues on Zosyn as his wound culture from his left ankle showed positive for pseudomonas aeruginosa and Enterobacter Cloacae. Bedside telemetry is showing normal sinus rhythm heart rate 60. Oxygen saturation is 96% on 2 L nasal cannula. Objective - Vital Signs Vital signs: Vital Signs Temp 98.0 F 12/04/18 08:00 Pulse 60 12/04/18 09:00 Resp 19 12/04/18 09:00 BP 107/54 12/04/18 09:00 Pulse Ox 96 12/04/18 09:00 Intake & Output 12/03/18 12/04/1819 18:59 06:59 18:59 Intake Total 200 100 225 Output Total 1550 1150 150 Balance -1350 -1050 75 Weight 105.5 kg 104.5 kg Intake: IV 200 100 100 Piperacillin-Tazobactam 3 100 100 .375 gm In Sodium Chloride 0.9% 100 ml @ 25 mls/hr IVPB Q8HR [facility] Rx# :[id number] Sodium Ferric Gluconat- 100 100 Sucrose 125 mg In Sodium Chloride 0.9% 100 ml @ 100 mls/hr IVPB DAILY [facility] Rx#:[id number] Oral 125 Output: Urine 1550 1150 150 Other: Voiding Method Indwelling Catheter Indwelling Catheter - Constitutional General appearance: Present: cooperative, no acute distress, obese - Respiratory Details: Lungs sounds essentially clear throughout, diminished to his bilateral bases. Respirations are symmetrical and nonlabored. No crackles, rhonchi or wheezes oxygen saturation is 96% on 2 L nasal cannula.. - Cardiovascular Details: Regular rhythm and rate. S1 and S2 present, negative for S3, gallop or murmur. Sternum is stable. - Gastrointestinal Gastrointestinal Comment(s): Abdomen is soft, nontender and nondistended. Active bowel sounds present in all 4 abdominal quadrants. No guarding or rigidity. No organomegaly appreciated. - Genitourinary Genitourinary Comment(s): Burrell catheter for accurate I&O. Draining clear yellow urine. - Integumentary Integumentary Comment(s): Skin is warm and dry. No clubbing or cyanosis is present. Scattered blistered areas to his bilateral lower extremities. Scattered erythema to his bilateral lower extremities. Blistered areas are weeping serous drainage. - Neurologic Neurologic Comment(s): No focal deficits. Neurologic: Present: CNII-XII intact - Musculoskeletal Musculoskeletal: Present: gait normal, generalized weakness, strength equal bilaterally - Psychiatric Psychiatric Comment(s): Flat affect Psychiatric: Present: A&O x's 3, intact judgment & insight - Allied health notes Allied health notes reviewed: nursing - Labs CBC & Chem 7: 12/04/18 04:15 12/04/18 04:15 Labs: Abnormal Lab Results - Last 24 Hours (Table) 12/03/18 12/03/18 12/04/18 Range/Units 11:52 20:24 04:15 WBC 11.4 H (3.8-10.6) k/uL RBC 2.44 L (4.30-5.90) m/uL Hgb 7.2 L (13.0-17.5) gm/dL Hct 23.6 L (39.0-53.0) % MCHC 30.6 L (31.0-37.0) g/dL RDW 17.7 H (11.5-15.5) % Neutrophils # 9.5 H (1.3-7.7) k/uL Lymphocytes # 0.5 L (1.0-4.8) k/uL Sodium (137-145) mmol/L BUN (9-20) mg/dL Creatinine (0.66-1.25) mg/dL Glucose (74-99) mg/dL POC Glucose (mg/dL) 201 H 182 H (75-99) mg/dL 12/04/18 12/04/18 Range/Units 04:15 06:49 WBC (3.8-10.6) k/uL RBC (4.30-5.90) m/uL Hgb (13.0-17.5) gm/dL Hct (39.0-53.0) % MCHC (31.0-37.0) g/dL RDW (11.5-15.5) % Neutrophils # (1.3-7.7) k/uL Lymphocytes # (1.0-4.8) k/uL Sodium 134 L (137-145) mmol/L BUN 71 H (9-20) mg/dL Creatinine 1.48 H (0.66-1.25) mg/dL Glucose 130 H (74-99) mg/dL POC Glucose (mg/dL) 153 H (75-99) mg/dL Microbiology - Last 24 Hours (Table) 11/29/18 13:55 Blood Culture - Preliminary Blood No Growth after 96 hours - Imaging and Cardiology Chest x-ray: report reviewed, image reviewed Assessment and Plan Assessment: 1. Chronic kidney disease stage III with a baseline creatinine of 1.5-2.0 2. Acute lower extremity cellulitis, fever, elevated WBC cell count, wound culture positive for pseudomonas aeruginosa and Enterobacter cloacae 3. History of severe eccentric mitral valve regurgitation, severely calcified mitral annulus, torn chordae to the P1 posterior leaflet, status post complex mitral valve repair on 10/31/2018 3. History of coronary artery disease with recent drug-eluting stent placed to his left anterior descending coronary artery on 09/24/2018 4. Chronic diastolic heart failure 5. Hypertension 6. Hyperlipidemia 7. Diabetes mellitus type 2, with peripheral neuropathy 8. Anemia of chronic kidney disease 9. Moderate chronic obstructive pulmonary disease 10. Obstructive sleep apnea without home CPAP use 11. Pulmonary hypertension 12. Obesity 13. Osteoarthritis 14. History of tobacco dependence, previous pipe 15. History of paroxysmal atrial fibrillation 16. History of transaminitis Plan: 1. Continue to optimize with medical management, continue aspirin, Plavix, and beta sun. 2. Avoid nephrotoxic agents. 3. Diuresis management per nephrology. Currently on Lasix 40 mg IV every 12 hours . 4. Increase activity as tolerated. PT/OT following. 5. Antibiotic management per infectious disease. Wound care recommendations per infectious disease. 6. Encourage use of his incentive spirometry every hour while awake. 7. Continue to reinforce open heart discharge instructions. Shower daily, no lifting pushing and pulling anything greater than 10 pounds or jug of milk for 12 weeks. Continue to encourage use of his heart hugger. 8. May transfer back to cardiac stepdown unit when bed available per the cardiothoracic surgery standpoint. 9. GI and DVT prophylaxis. 10. When the patient is not ambulating or sitting up for meals he is to have his legs elevated higher than the level of his heart 6-8 inches. 11. More recommendations follow based on patient's clinical course. Time with Patient: Greater than 30
[2018-12-04] MEDS: HYDROmorphone 1 MG/ML 1 ML SYRINGE IVP PRN (10:17)
[2018-12-04] MEDS: METOPROLOL TARTRATE 50 MG TAB PO SCH ×2 (11:34→20:48)
--- NOTE | 2018-12-04 11:56 | P.PN ---
Subjective Progress Note Date: 12/04/18 Principal diagnosis: Cellulitis of both lower extremities secondary to pseudomonas aeruginosa and acute kidney injury. 73-year-old male patient with previous history of mitral valve repair with a very slow recovery and ultimately was discharged to rehabilitation. Posterior the patient was admitted for an acute kidney injury from which she recovered and the kidney function went back to its baseline. The patient was discharged back to [facility] where he underwent further rehabilitation and ultimately was discharged home where he states 2 days and he came back to the hospital because of worsening lower extremities edema and ulceration and fever. The patient was initially was admitted to the medical floor he was given diuretics. He was having significant amount of pitting edema lower extremities bilaterally. Troponins were minimally elevated. His hemoglobin was at 8.2. His creatinine was at 1.8. The patient subsequently became hypotensive. He had a transient hypotension and got moved to the intensive care unit. Currently he is afebrile although on admission had a temperature of 102.8. He was seen by infectious disease. Lower extremity edema and ulceration was noted. He was placed on a combination of antibiotics. He was given a bolus of 500 mL and currently his blood pressure is normalized without the use of any pressors. No altered mentation. No significant cough or sputum production. No chest pain. He is known to have coronary artery disease with previous stenting of the LAD, diastolic heart failure, hypertension and hyperlipidemia and diabetes mellitus and peripheral neuropathy. He also suffers from staged 3 chronic kidney disease, COPD and obstructive sleep apnea and he has a component of secondary pulmonary hypertension related to his valvular heart disease. Currently is on a combination of vancomycin and Zosyn. Diuretics have been discontinued. He is also receiving normal saline at rate of 25 mL an hour. Tolerating his diet. On today's evaluation of 12/01/2018, I'm seeing this patient for a follow-up. The patient doing better than yesterday. No issues with blood pressure. The patient did not require any pressors. After being given a bolus of 500 mL, the blood pressure normalizes. The patient has ulceration of the lower extremities bilaterally. Cultures showed gram-negative bacillus and final cultures are still pending for now. Meanwhile he is covered with a combination of Zosyn and vancomycin. He is using incentive spirometer. Sternum stable clean and intact. Cardiac rhythm is sinus. No nausea. No vomiting. No emesis. He does have some increased swelling lower extremities bilaterally. He has chronic stage III kidney disease in the patient's creatinine has remained stable at 1.8. His repe at echocardiogram showed moderate degree of mitral regurgitation with pulmonary hypertension. No other significant events otherwise for now. He is awake and alert and following commands and answering questions appropriately. He is receiving daily Lasix 40 mg IV push every 24 hours. On 12/02/2018, the patient is hemodynamic is stable. In fact his blood pressure has normalized and it's higher on today's evaluation. His lower extremity edema is improved. The wounds were noted. The patient has vesicle formations due to lower extremity edema and there was large vesicle on the lateral aspect of the left ankle. There is another ulcer over the anterior aspect of the left lower extremity chest some purulent base. Cultures from that is showing gram- negative/pseudomonas. Currently on Zosyn. Vancomycin is also on board. He is receiving Lasix once a day. His chest x-ray today is showing edema and cardiomegaly. No fever. No chills. Still on oxygen at 4 L per minute nasal cannula. Denies having any chest pain. Sternum stable clean and intact. Is complaining of chronic pain and neuropathy and lower extremity and his mobility is limited. No cough no sputum production. No hemoptysis. No other complaints otherwise for now. Patient was reevaluated today on 12/03/2018, remains in the intensive care unit, he is hemodynamically stable, responding fairly well to antibiotics for his ongoing cellulitis. He is hemodynamically stable, his lower extremity edema is improved. Both lower extremities are wrapped with Zi wrapping and sterile dressing. Being followed by infectious disease on the case. Microbiology from left ankle is showing pseudomonas aeruginosa and Enterobacter cloacae. Labs were reviewed relatively normal electrolytes, normal CBC hemoglobin is 7.7 BUN is 64 creatinine is 1.46. Improving, his creatinine was 1.91 on admission. Reevaluated today on 12/04/2018, patient remains in the intensive care unit, remains on antibiotics, and he is hemodynamically stable. Denies presently any shortness of breath, the swelling in his lower extremities has significantly improved. Legs are being elevated most of the day. Continues to have large blisters to the medial malleolus and it is fluid-filled. He also had fluid- filled blister to the right medial malleolus. Patient remains on antibiotics in the form of Zosyn his cultures were positive for Pseudomonas and Enterobacter. Oxygen-car the patient is on 2 L nasal cannula. Objective - Vital Signs Vital signs: Vital Signs Temp 98.0 F 12/04/18 08:00 Pulse 60 12/04/18 09:00 Resp 19 12/04/18 09:00 BP 107/54 12/04/18 09:00 Pulse Ox 96 12/04/18 09:00 Intake & Output 12/03/18 12/04/18 12/04/18 18:59 06:59 18:59 Intake Total 200 100 325 Output Total 1550 1150 475 Balance -1350 -1050 -150 Weight 105.5 kg 104.5 kg Intake: IV 200 100 100 Piperacillin-Tazobactam 3 100 100 .375 gm In Sodium Chloride 0.9% 100 ml @ 25 mls/hr IVPB Q8HR [facility] Rx# :[id number] Sodium Ferric Gluconat- 100 100 Sucrose 125 mg In Sodium Chloride 0.9% 100 ml @ 100 mls/hr IVPB DAILY [facility] Rx#:[id number] Intake, IV Titration 100 Amount Cefepime 2 gm In Sodium 100 Chloride 0.9% 100 ml @ 200 mls/hr IVPB Q12HR [facility] Rx#:[id number] Oral 125 Output: Urine 1550 1150 475 Other: Voiding Method Indwelling Catheter Indwelling Catheter Indwelling Catheter - Exam Physical Exam: Revealed 73-year-old white male in no distress. Head: Atraumatic, normocephalic. HEENT:[Neck is supple.] [No neck masses.] [No thyromegaly.] [No JVD.] Chest: [Clear throughout, no crackles, no rhonchi, no wheezes.] Cardiac Exam: [Normal S1 and S2, no S3 gallop, no murmur.] Abdomen: [Soft, nontender, no megaly, no rebound, no guarding, normal bowel sounds.] Extremities: Ulcerations and blisters noted in both lower extremities, 1+ bipedal edema. Neurological Exam: Alert and oriented 3. [No focal neurologic deficit.] Psychiatric: Normal mood, blunt affect and normal mental status examination. Lymphatics: No palpable adenopathy noted. - Labs CBC & Chem 7: 12/04/18 04:15 12/04/18 04:15 Labs: Abnormal Lab Results - Last 24 Hours (Table) 12/03/18 12/03/18 12/04/18 Range/Units 11:52 20:24 04:15 WBC 11.4 H (3.8-10.6) k/uL RBC 2.44 L (4.30-5.90) m/uL Hgb 7.2 L (13.0-17.5) gm/dL Hct 23.6 L (39.0-53.0) % MCHC 30.6 L (31.0-37.0) g/dL RDW 17.7 H (11.5-15.5) % Neutrophils # 9.5 H (1.3-7.7) k/uL Lymphocytes # 0.5 L (1.0-4.8) k/uL Sodium (137-145) mmol/L BUN (9-20) mg/dL Creatinine (0.66-1.25) mg/dL Glucose (74-99) mg/dL POC Glucose (mg/dL) 201 H 182 H (75-99) mg/dL 12/04/18 12/04/18 Range/Units 04:15 06:49 WBC (3.8-10.6) k/uL RBC (4.30-5.90) m/uL Hgb (13.0-17.5) gm/dL Hct (39.0-53.0) % MCHC (31.0-37.0) g/dL RDW (11.5-15.5) % Neutrophils # (1.3-7.7) k/uL Lymphocytes # (1.0-4.8) k/uL Sodium 134 L (137-145) mmol/L BUN 71 H (9-20) mg/dL Creatinine 1.48 H (0.66-1.25) mg/dL Glucose 130 H (74-99) mg/dL POC Glucose (mg/dL) 153 H (75-99) mg/dL Microbiology - Last 24 Hours (Table) 11/29/18 13:55 Blood Culture - Preliminary Blood No Growth after 96 hours Assessment and Plan Assessment: Impression: 1 acute cellulitis of lower extremities secondary to Pseudomonas and Enterobacter cloaca. 2 hypotension secondary to sepsis, resolved. 3 chronic diastolic congestive heart failure 4 coronary artery disease with recent stent placement to LAD on 09/24/2018 5 acute on chronic kidney disease, improving over the last 5 days. Patient has chronic kidney disease stage III. 6 multiple comorbidities including hypertension, diabetes, hyperlipidemia, obstructive sleep apnea syndrome, paroxysmal atrial fibrillation, diabetic peripheral neuropathy, secondary pulmonary hypertension secondary to valvular heart disease, degenerative joint disease, iron deficiency anemia, and severe COPD FEV1 is in the range of 54%. 7Severe mitral valve regurgitation with severely calcified mitral annulus, torn chordae to P1 posterior leaflet. He is status post complex mitral valve repair with resection of torn chordae to P1, posterior leaflet plication of P1 and P2, small resection P1-P2 leaflet, plication of both anterior mitral trigones, clip ligation of left atrial appendage. On 10/31/2018. Recommendation: Continue antibiotics and present supportive care measures, patient is presently an overflow in the ICU, will transfer to a monitor bed as soon as a bed becomes available. Continue to optimize medical management including aspirin and Plavix beta blockers, continue diuretics Lasix 40 mg every 12 hours, increase activity as tolerated, encourage incentive spirometRY. continue GI and DVT prophylaxis, will follow. Time with Patient: Less than 30
[2018-12-04 12:23] LABS: Glucose,Whole Blood 223 mg/dL (75-99)
[2018-12-04] MEDS: HYDROmorphone 0.5 MG/0.5 ML SYRINGE IVP PRN ×2 (13:34→18:57)
[2018-12-04] MEDS: GABAPENTIN 100 MG CAP PO SCH ×2 (14:40→20:48)
--- NOTE | 2018-12-04 16:49 | P.PN ---
Subjective Progress Note Date: 12/04/18 Principal diagnosis: This is a 73-year-old male with a past medical history of multiple medical problems with recent cardiac surgery including mitral valve replacement, stent placement, myocardial infarction, pulmonary hypertension and was recently admitted for an increase in weakness with swelling and blistering of the lower legs with fever and is being closely monitored. Patient is sitting up in the chair with legs elevated sleeping but easily arousable. Family is at the bedside. Bilateral lower extremities are wrapped with Zi wraps and elevated at this time. Extremely guarded prognosis 12/03/2018 Patient is sitting up in the chair sleeping but arousable. Patient states that he is very lethargic and continues to nod off while talking. Patient is currently in the ICU and is being closely monitored. Patient lower extremities are down and not currently being elevated. Patient states that he does when he is lying in bed. Zi wraps dry and intact with obvious swelling of the bilateral lower extremities. Heart hugger is in place. patient denies any chest pain or palpitations but does state that he is short of breath with just about any movement to or from the chair. Patient has poor appetite but denies any nausea or vomiting. Patient has a low grade temp this morning of 99.1F and is being closely monitored. ID is following as well as many other consultants. Prognosis is guarded. 12/04/2018 Patient is sitting up in the chair with bilateral legs elevated in no acute distress. Patient states that he is having worsening discomfort in the bilateral lower extremities especially his feet. Discussed with the patient in detail about keeping the legs elevated to help minimize the swelling and discomfort. Zi wraps along with Silvadene cream were being applied by nursing staff at the time of the visit. Multiple ulcerations lower extremities bilaterally are present with slight improvement to the ulcerations of the shins with some scabbing noted. Infectious disease is following closely for antibiotic coverage as well as wound care therapy. Patient states he is not eating much but has been attempting to eat more to build up his strength. Patient states that he still having some shortness of breath with exertion. Discussed with the patient at length about the importance of using incentive spirometer at the bedside at least 10 times per hour while awake. Patient denies any chest pain or palpitations at this time. Patient states that he sti ll very fatigued and feels exhausted. Multiple medical consultations are following closely. Guarded prognosis. REVIEW OF SYSTEMS: ENT: diminished vision, denies diminished hearing. CARDIOVASCULAR: denies chest pain or palpitations RESPIRATORY: denies labored breathing, reports shortness of breath with exertion GI: No nausea, vomiting or diarrhea. reports poor appetite : No dysuria or retention. NERVOUS SYSTEM: No numbness, reports weakness, reports inability to get up and walk CONSTITUTIONAL: reports lethargy and weakness DERMATOLOGY: reports swelling and drainage of the lower extremities with pain of bilateral feet Active Medications Acetaminophen (Tylenol Tab) 650 mg PO Q6HR PRN PRN Reason: Mild Pain or Fever > 100.5 Last Admin: 12/02/18 17:22 Dose: 650 mg Documented by: Acetaminophen/Codeine Phosphate (Tylenol #3) 1 - 2 each PO Q6H PRN PRN Reason: Pain Last Admin: 12/04/18 11:25 Dose: 2 each Documented by: Albuterol Sulfate (Ventolin Nebulized) 2.5 mg INHALATION RT-Q6H PRN PRN Reason: Shortness Of Breath Or Wheezing Last Admin: 12/03/18 08:48 Dose: 2.5 mg Documented by: Amiodarone HCl (Cordarone) 200 mg PO DAILY [facility] Last Admin: 12/04/18 08:46 Dose: 200 mg Documented by: Lipase/Protease/Amylase (Zenpep Dr 5,000 Unit Capsule) 1 each PO DAILY@1700 [facility] Last Admin: 12/03/18 17:07 Dose: 1 each Documented by: Aspirin (Aspirin) 81 mg PO DAILY@1700 [facility] Last Admin: 12/03/18 17:07 Dose: 81 mg Documented by: Bisacodyl (Dulcolax) 10 mg RECTAL DAILY PRN PRN Reason: Constipation Cholecalciferol (Vitamin D3 (25 Mcg = 1000 Iu)) 2,000 unit PO DAILY@1700 [facility] Last Admin: 12/03/18 17:07 Dose: 2,000 unit Documented by: Clopidogrel Bisulfate (Plavix) 75 mg PO DAILY [facility] Last Admin: 12/04/18 08:46 Dose: 75 mg Documented by: Darbepoetin Ruddy (Aranesp) 40 mcg SQ Q7D [facility] Last Admin: 11/30/18 16:15 Dose: 40 mcg Documented by: Escitalopram Oxalate (Lexapro) 10 mg PO HS [facility] Last Admin: 12/03/18 21:23 Dose: 10 mg Documented by: Ferrous Sulfate (Feosol) 325 mg PO DAILY@1700 [facility] Last Admin: 12/03/18 17:07 Dose: 325 mg Documented by: Furosemide (Lasix) 40 mg IV Q12HR [facility] Last Admin: 12/04/18 08:46 Dose: 40 mg Documented by: Gabapentin (Neurontin) 100 mg PO BID [facility] Last Admin: 12/04/18 14:40 Dose: 100 mg Documented by: Hydromorphone HCl (Dilaudid) 0.125 mg IVP Q4H PRN PRN Reason: Moderate to Severe Pain Last Admin: 12/04/18 13:34 Dose: 0.125 mg Documented by: Cefepime HCl 2 gm/ Sodium (Chloride) 100 mls @ 200 mls/hr IVPB Q24HR [facility] Insulin Aspart (Novolog) 0 unit SQ [facility]; Protocol Last Admin: 12/04/18 12:26 Dose: 4 unit Documented by: Insulin Detemir (Levemir) 10 unit SQ [facility] Last Admin: 12/03/18 21:23 Dose: 10 unit Documented by: Magnesium Hydroxide (Milk Of Magnesia) 2,400 mg PO DAILY PRN PRN Reason: Constipation Metoprolol Tartrate (Lopressor) 50 mg PO BID [facility] Last Admin: 12/04/18 11:34 Dose: 50 mg Documented by: Morphine Sulfate (Morphine Sulfate (Inj)) 1 mg IVP ONCE PRN PRN Reason: Pain Scale 9 To 10 Last Admin: 12/02/18 10:07 Dose: 1 mg Documented by: Multivitamins (Theragran) 1 each PO DAILY@1700 [facility] Last Admin: 12/03/18 17:07 Dose: 1 each Documented by: Naloxone HCl (Narcan) 0.2 mg IV Q2M PRN PRN Reason: Opioid Reversal Pantoprazole Sodium (Protonix) 40 mg PO AC-BRKFST [facility] Last Admin: 12/04/18 06:54 Dose: 40 mg Documented by: Senna/Docusate Sodium (Senokot-S) 2 each PO HS PRN PRN Reason: Constipation Silver Sulfadiazine (Silvadene Cream) 1 applic TOPICAL DAILY [facility] Last Admin: 12/04/18 10:02 Dose: 1 applic Documented by: Objective - Vital Signs Vital signs: Vital Signs Temp 97.9 F 12/04/18 12:00 Pulse 57 L 12/04/18 16:00 Resp 13 12/04/18 16:00 BP 117/56 12/04/18 16:00 Pulse Ox 97 12/04/18 16:00 Intake & Output 12/03/18 12/04/18 12/04/18 18:59 06:59 18:59 Intake Total 200 100 325 Output Total 1550 1150 595 Balance -1350 -1050 -270 Weight 105.5 kg 104.5 kg Intake: IV 200 100 100 Piperacillin-Tazobactam 3 100 100 .375 gm In Sodium Chloride 0.9% 100 ml @ 25 mls/hr IVPB Q8HR [facility] Rx# :[id number] Sodium Ferric Gluconat- 100 100 Sucrose 125 mg In Sodium Chloride 0.9% 100 ml @ 100 mls/hr IVPB DAILY [facility] Rx#:[id number] Intake, IV Titration 100 Amount Cefepime 2 gm In Sodium 100 Chloride 0.9% 100 ml @ 200 mls/hr IVPB Q12HR [facility] Rx#:[id number] Oral 125 Output: Urine 1550 1150 595 Other: Voiding Method Indwelling Catheter Indwelling Catheter Indwelling Catheter - Exam Gen: This is a 73-year-old male sitting up in the chair in no acute distress. Vital signs are stable. Temp is 98.0 F oral, pulse is 58, respirations are 12, blood pressure is 121/58, oxygen saturation is 96 % on 2 L nasal cannula HEENT: Head is atraumatic, normocephalic. Pupils equal, round. Sclerae is anicteric. NECK: Supple. No JVD. No lymphadenopathy. No thyromegaly. LUNGS: Diminished breath sounds at the bases. No wheezes or rhonchi. No intercostal retractions. HEART: S1 and S2 are muffled ABDOMEN: Soft. Obese. Bowel sounds are present. No masses. No tenderness. EXTREMITIES: Mild pedal edema. Bilateral lower extremity swelling. Zi wrap is intact. No calf tenderness. NEUROLOGICAL: Patient is awake and lethargic, alert and oriented x3. Cranial nerves 2 through 12 are grossly intact. - Labs CBC & Chem 7: 12/04/18 04:15 12/04/18 04:15 Labs: Abnormal Lab Results - Last 24 Hours (Table) 09/12/1312/04/18 12/04/18 Range/Units 20:24 04:15 04:15 WBC 11.4 H (3.8-10.6) k/uL RBC 2.44 L (4.30-5.90) m/uL Hgb 7.2 L (13.0-17.5) gm/dL Hct 23.6 L (39.0-53.0) % MCHC 30.6 L (31.0-37.0) g/dL RDW 17.7 H (11.5-15.5) % Neutrophils # 9.5 H (1.3-7.7) k/uL Lymphocytes # 0.5 L (1.0-4.8) k/uL Sodium 134 L (137-145) mmol/L BUN 71 H (9-20) mg/dL Creatinine 1.48 H (0.66-1.25) mg/dL Glucose 130 H (74-99) mg/dL POC Glucose (mg/dL) 182 H (75-99) mg/dL 12/04/18 12/04/18 Range/Units 06:49 11:57 WBC (3.8-10.6) k/uL RBC (4.30-5.90) m/uL Hgb (13.0-17.5) gm/dL Hct (39.0-53.0) % MCHC (31.0-37.0) g/dL RDW (11.5-15.5) % Neutrophils # (1.3-7.7) k/uL Lymphocytes # (1.0-4.8) k/uL Sodium (137-145) mmol/L BUN (9-20) mg/dL Creatinine (0.66-1.25) mg/dL Glucose (74-99) mg/dL POC Glucose (mg/dL) 153 H 223 H (75-99) mg/dL Microbiology - Last 24 Hours (Table) 11/29/18 13:55 Blood Culture - Preliminary Blood No Growth after 120 hours Assessment and Plan Assessment: Acute bilateral leg cellulitis with sepsis, present on admission pseudomonas aeruginosa as well as gram-negative bacilli; infectious disease if following. Diffuse generalized weakness with possible myopathy, present on admission hypotension possible secondary to hypovolemia Increased WBC Anemia of chronic disease Hyponatremia Change in mental status, acute metabolic encephalopathy, multifactorial Increased creatinine with chronic kidney disease stage III Elevated AST, ALT, possibly hepatitis Troponin 0.043, indeterminate Congestive heart failure with chronic diastolic dysfunction, recent mitral valve replacement for mitral regurgitation History of coronary artery disease/stent History pulmonary hypertension Hyperlipidemia History of gastroesophageal reflux disease Diabetes mellitus type 2 with diabetic nephropathy Gait dysfunction History of obstructive sleep apnea history of degenerative joint disease Full code Recommendations and discussion: Recommend to continue current medications, management, and symptomatically treatment. Patient is awaiting a bed on [facility] to be transferred from the ICU at this time. Encouraged patient to use the incentive spirometer at least 10 times every hour while awake. Discussed with the patient and family about pain management and patient states that he has used Neurontin in the past with some relief. Will order gabapentin 100 mg twice a day and monitor closely. Will continue to monitor vital signs and labs closely Patient will continue on broad-spectrum IV antibiotics and infectious disease is following. Nephrology is following. PT/OT is following. Cardiology following. Due to multiple c omplex medical issues overall prognosis is extremely guarded. Further recommendations to follow.
[2018-12-04] MEDS: CHOLECALCIFEROL 1,000 UNIT TAB PO SCH (17:18)
[2018-12-04] MEDS: FERROUS SULFATE 325 MG TAB PO SCH (17:18)
[2018-12-04] MEDS: ASPIRIN 81 MG PO SCH (17:18)
[2018-12-04] MEDS: MULTIVITAMINS, THERA 1 EACH TAB PO SCH (17:18)
[2018-12-04 17:19] LABS: Glucose,Whole Blood 194 mg/dL (75-99)
[2018-12-04] MEDS: LIPASE 5,000/PROTEASE 17,000/AMYLASE 24,000 PO SCH (17:20)
[2018-12-04 20:45] LABS: Glucose,Whole Blood 221 mg/dL (75-99)
[2018-12-04] MEDS: INSULIN DETEMIR (LEVEMIR) 100 UNIT/ML SYR SQ SCH (20:47)
[2018-12-04] MEDS: ESCITALOPRAM 10 MG TAB PO SCH (20:49)
--- NOTE | 2018-12-04 21:07 | PN ---
PROGRESS NOTE This patient is admitted with acute infection and cellulitis in both the legs. The patient cardiac-car remains stable. He continues to have some pain in the legs. Heart rate is 60 per minute, blood pressure is 125/63 mmHg. First and second heart sounds are heard. Lungs are clinically clear to auscultation and percussion. We will continue the current medications. We will now follow the patient p.r.n. whenever services are needed. MMODL / IJN: [id number] /
--- NOTE | 2018-12-04 22:22 | P.PN ---
Subjective Progress Note Date: 12/04/18 73-year-old male presents to Hospital from the extended care facility where he has been recovering status post his extensive mitral valve repair for his mitral stenosis. There was also repair of the ruptured chordae tendon 9. Prior to the finding of severe mitral stenosis he did have coronary disease and a percutaneous intervention occurred with stenting of a drug-eluting type. Afterward the open heart procedure occurred. Due to his weakness has been recovering at the extended care facility when it was noticed that he had the rapid worsening of the lower extremities with the increasing amount of edema the tissue started to blister he developed a fever and was transferred to our facil ity. Due to the lower actually wounds and concerns to infection especially in the face of his recent surgical interventions. Consultation was requested. Patient is feeling slightly better he has identities less short of breath the lower extremities are feeling somewhat better they are less uncomfortable 12/03/2018 the patient is feeling somewhat better. Cultures of the leg cultures have been finalized and Pseudomonas and Enterobacter isolated. Patient will likely be going to rehabilitation and does have IV access. December 04 2018 patient still very weak being evaluated for rehab, patient is short of breath and does not feel well. Objective - Vital Signs Vital signs: Vital Signs Temp 98.2 F 12/04/18 20:00 Pulse 55 L 12/04/18 20:00 Resp 12 12/04/18 20:00 BP 117/56 12/04/18 20:00 Pulse Ox 98 12/04/18 20:00 Intake & Output 12/04/18 12/04/18 12/05/18 06:59 18:59 06:59 Intake Total 100 325 Output Total 1150 595 Balance -1050 -270 Weight 104.5 kg Intake: IV 100 100 Piperacillin-Tazobactam 3 100 .375 gm In Sodium Chloride 0.9% 100 ml @ 25 mls/hr IVPB Q8HR [facility] Rx# :[id number] Sodium Ferric Gluconat- 100 Sucrose 125 mg In Sodium Chloride 0.9% 100 ml @ 100 mls/hr IVPB DAILY [facility] Rx#:[id number] Intake, IV Titration 100 Amount Cefepime 2 gm In Sodium 100 Chloride 0.9% 100 ml @ 200 mls/hr IVPB Q12HR [facility] Rx#:[id number] Oral 125 Output: Urine 1150 595 Other: Voiding Method Indwelling Catheter Indwelling Catheter Indwelling Catheter - Exam HEENT: Anicteric conjunctiva are pink and moist nasal mucosa grossly intact without significant lesions, there is no thrush. Poor dentition Neck: The neck is supple without significant lymphadenopathy or thyromegaly. Lungs: Symmetrical bilateral air entry basilar crackles are heard. Extremities no bronchial sounds Heart: Irregular audible S1 and S2 2/6 systolic murmur left sternal border PMI nondisplaced Abdomen: Positive bowel sounds soft and nontender without palpable masses or organomegaly. There was no guarding or rebound. Extremities: The upper extremities have excellent pulses they are symmetric, no significant petechiae or telangiectasia. No splinter hemorrhages were noted. The lower extremities the improved bilateral lower extremity edema is more evidence of blistering to the left leg into the right. There is evidence of the improved erythema the left leg is also mildly tender there is no purulent drainage at this time. Neuro: Awake alert oriented to person place and time. There are no acute new gross focal sensory motor deficits. - Labs CBC & Chem 7: 12/04/18 04:15 12/04/18 04:15 Labs: Abnormal Lab Results - Last 24 Hours (Table) 12/04/18 12/04/18 12/04/18 Range/Units 04:15 04:15 06:49 WBC 11.4 H (3.8-10.6) k/uL RBC 2.44 L (4.30-5.90) m/uL Hgb 7.2 L (13.0-17.5) gm/dL Hct 23.6 L (39.0-53.0) % MCHC 30.6 L (31.0-37.0) g/dL RDW 17.7 H (11.5-15.5) % Neutrophils # 9.5 H (1.3-7.7) k/uL Lymphocytes # 0.5 L (1.0-4.8) k/uL Sodium 134 L (137-145) mmol/L BUN 71 H (9-20) mg/dL Creatinine 1.48 H (0.66-1.25) mg/dL Glucose 130 H (74-99) mg/dL POC Glucose (mg/dL) 153 H (75-99) mg/dL 12/04/18 12/04/18 12/04/18 Range/Units 11:57 17:16 20:42 WBC (3.8-10.6) k/uL RBC (4.30-5.90) m/uL Hgb (13.0-17.5) gm/dL Hct (39.0-53.0) % MCHC (31.0-37.0) g/dL RDW (11.5-15.5) % Neutrophils # (1.3-7.7) k/uL Lymphocytes # (1.0-4.8) k/uL Sodium (137-145) mmol/L BUN (9-20) mg/dL Creatinine (0.66-1.25) mg/dL Glucose (74-99) mg/dL POC Glucose (mg/dL) 223 H 194 H 221 H (75-99) mg/dL Microbiology - Last 24 Hours (Table) 11/29/18 13:55 Blood Culture - Preliminary Blood No Growth after 120 hours Laboratory Results WBC 11.4 k/uL (3.8-10.6) H 12/04/18 04:15 RBC 2.44 m/uL (4.30-5.90) L 12/04/18 04:15 Hgb 7.2 gm/dL (13.0-17.5) L 12/04/18 04:15 Hct 23.6 % (39.0-53.0) L 12/04/18 04:15 MCV 97.0 fL (80.0-100.0) 12/04/18 04:15 MCH 29.7 pg (25.0-35.0) 12/04/18 04:15 MCHC 30.6 g/dL (31.0-37.0) L 12/04/18 04:15 RDW 17.7 % (11.5-15.5) H 12/04/18 04:15 Plt Count 277 k/uL (150-450) 12/04/18 04:15 Neutrophils % 84 % 12/04/18 04:15 Lymphocytes % 5 % 12/04/18 04:15 Monocytes % 8 % 12/04/18 04:15 Eosinophils % 2 % 12/04/18 04:15 Basophils % 1 % 12/04/18 04:15 Neutrophils # 9.5 k/uL (1.3-7.7) H 12/04/18 04:15 Lymphocytes # 0.5 k/uL (1.0-4.8) L 12/04/18 04:15 Monocytes # 0.9 k/uL (0-1.0) 12/04/18 04:15 Eosinophils # 0.2 k/uL (0-0.7) 12/04/18 04:15 Basophils # 0.1 k/uL (0-0.2) 12/04/18 04:15 Hypochromasia Marked 12/04/18 04:15 Anisocytosis Slight 12/04/18 04:15 Macrocytosis Slight 12/04/18 04:15 PT 12.2 sec (9.0-12.0) H 11/29/18 13:55 INR 1.2 (<1.2) H 11/29/18 13:55 APTT 26.7 sec (22.0-30.0) 11/29/18 13:55 Sodium 134 mmol/L (137-145) L 12/04/18 04:15 Potassium 4.3 mmol/L (3.5-5.1) 12/04/18 04:15 Chloride 98 mmol/L (98-107) 12/04/18 04:15 Carbon Dioxide 28 mmol/L (22-30) 12/04/18 04:15 Anion Gap 8 mmol/L 12/04/18 04:15 BUN 71 mg/dL (9-20) H 12/04/18 04:15 Creatinine 1.48 mg/dL (0.66-1.25) H 12/04/18 04:15 Est GFR (CKD-EPI)AfAm 53 (>60 ml/min/1.73 sqM) 12/04/18 04:15 Est GFR (CKD-EPI)NonAf 46 (>60 ml/min/1.73 sqM) 12/04/18 04:15 Glucose 130 mg/dL (74-99) H 12/04/18 04:15 POC Glucose (mg/dL) 221 mg/dL (75-99) H 12/04/18 20:42 POC Glu Ham Stripper ID Grisel Ramirez 12/04/18 20:42 Lactic Ac Sepsis Rflx Y 11/29/18 14:30 Plasma Lactic Acid Guy 1.7 mmol/L (0.7-2.0) 11/30/18 14:15 Calcium 8.7 mg/dL (8.4-10.2) 12/04/18 04:15 Magnesium 2.0 mg/dL (1.6-2.3) 12/01/18 05:31 Iron 18 ug/dL (65-175) L 11/29/18 13:55 TIBC 298 ug/dL (228-460) 11/29/18 13:55 Iron Saturation 6.04 (15.00-50.00) L 11/29/18 13:55 Ferritin 1042.1 ng/mL (22.0-322.0) H 11/29/18 13:55 Total Bilirubin 1.1 mg/dL (0.2-1.3) 11/29/18 13:55 AST 117 U/L (17-59) H 11/29/18 13:55 ALT 90 U/L (21-72) H 11/29/18 13:55 Alkaline Phosphatase 150 U/L (38-126) H 11/29/18 13:55 Creatine Kinase 51 U/L (55-170) L 11/29/18 13:55 Troponin I 0.029 ng/mL (0.000-0.034) 11/30/18 03:01 C-Reactive Protein 327.4 mg/L (<10.0) H 11/29/18 13:55 NT-Pro-B Natriuret Pep 36025 pg/mL 11/29/18 13:55 Total Protein 6.5 g/dL (6.3-8.2) 11/29/18 13:55 Albumin 3.6 g/dL (3.5-5.0) 11/29/18 13:55 TSH 3.960 mIU/L (0.465-4.680) 11/29/18 13:55 Urine Color Yellow 11/29/18 14:05 Urine Appearance Clear (Clear) 11/29/18 14:05 Urine pH 5.0 (5.0-8.0) 11/29/18 14:05 Ur Specific [place] 1.018 (1.001-1.035) 11/29/18 14:05 Urine Protein Trace (Negative) H 11/29/18 14:05 Urine Glucose (UA) Negative (Negative) 11/29/18 14:05 Urine Ketones Negative (Negative) 11/29/18 14:05 Urine Blood Negative (Negative) 11/29/18 14:05 Urine Nitrite Negative (Negative) 11/29/18 14:05 Urine Bilirubin Negative (Negative) 11/29/18 14:05 Urine Urobilinogen <2.0 mg/dL (<2.0) 11/29/18 14:05 Ur Leukocyte Esterase Negative (Negative) 11/29/18 14:05 Microbiology 11/29/18 13:55 Blood Blood Culture - Preliminary No Growth after 120 hours 11/29/18 22:30 Ankle - Left Gram Stain - Final 11/29/18 22:30 Ankle - Left Wound Culture - Final Pseudomonas aeruginosa Enterobacter cloacae 11/29/18 22:30 Urine,Clean Catch Urine Culture - Final Assessment and Plan (1) Fever Current Visit: Yes Status: Acute Code(s): R50.9 - FEVER, UNSPECIFIED SNOMED Code(s): 882714279 (2) MIGUEL ANGEL (acute kidney injury) Current Visit: No Status: Acute Code(s): N17.9 - ACUTE KIDNEY FAILURE, UNSPECIFIED SNOMED Code(s): 25754892 (3) CAD (coronary artery disease) Current Visit: Yes Status: Acute Code(s): I25.10 - ATHSCL HEART DISEASE OF [place] CORONARY ARTERY W/O ANG PCTRS SNOMED Code(s): 93458157 (4) Cellulitis of both lower extremities Narrative/Plan: 73-year-old male presents to Hospital from the [facility] care facility where he is receiving care after his open heart procedure for repair of his severe mitral valve stenosis which was done by the mitral valve repair as well as cordite and any repair. In September he had undergone his percutaneous intervention with stenting in drug-eluting stents. The patient had the significant increasing amount of edema to the lower extremity such that he developed multiple blisters left greater than right. Silvadene and wraps are applied to help with the edema and help with the tissue. Antibiotic therapy with Zosyn and vancomycin has been initiated given his significant level of illness at the time of his presentation. Cultures are process and will de-escalate antibiotics as cultures become available. Elevation of the limbs well at rest is very important in conjunction with the current wraps her be applied. The temperature maximum was 100.2 now the fever has resolved. His acute renal failure seems to be improving and his leukocytosis will be monitored. 12/03/2018 patient is feeling better has eaten his meal today without great difficulties. His appetite somewhat poor. Wound culture is finalized pseudomonas as well as Enterobacter although they are susceptible to fluoroquinolones the patient is on amiodarone which does not allow the utili zation of quinolone therapy. We'll be able to streamline antibiotic therapy to cefepime 2 gm IVPB q12 hours when transferring to [facility] 12/04/2018 patient week and is really quite miserable. Physical therapy is working with him to try to improve his status. We transferred to rehab. He can receive his intravenous antibiotic therapy of cefepime there. Continue with the local wraps and elevation to the lower extremities which has allowed some improvement of the edema blistering is starting to improve. Current Visit: Yes Status: Acute Code(s): L03.115 - CELLULITIS OF RIGHT LOWER LIMB; L03.116 - CELLULITIS OF LEFT LOWER LIMB SNOMED Code(s): 052296725
[2018-12-05] MEDS: HYDROmorphone 0.5 MG/0.5 ML SYRINGE IVP PRN ×4 (02:27→17:21)
[2018-12-05] MEDS: Acetaminophen-Codeine 300-30mg TAB PO PRN ×3 (02:28→21:08)
[2018-12-05 05:12] LABS: Anisocytosis Slight; Basophils # (A) 0.2 k/uL (0-0.2); Basophils % (A) 2 %; Eosinophils # (A) 0.3 k/uL (0-0.7); Eosinophils % (A) 3 %; HCT 23.5 % (39.0-53.0); Hypochromasia Marked; Lymphocytes # (A) 0.6 k/uL (1.0-4.8); Lymphocytes % (A) 6 %; MCH 29.6 pg (25.0-35.0); MCHC 29.9 g/dL (31.0-37.0); MCV 98.7 fL (80.0-100.0); Macrocytosis Slight; Mean Platelet Volume 6.9; Monocytes # (A) 0.5 k/uL (0-1.0); Monocytes % (A) 5 %; Neutrophils # (A) 8.2 k/uL (1.3-7.7); Neutrophils % (A) 82 %; Platelet Count 312 k/uL (150-450); RBC 2.38 m/uL (4.30-5.90); WBC 9.9 k/uL (3.8-10.6)
[2018-12-05 05:23] LABS: Calcium 8.9 mg/dL (8.4-10.2); Potassium 4.3 mmol/L (3.5-5.1)
[2018-12-05] MEDS: INSULIN ASPART (NovoLOG) 100 UNIT/ML VIAL SQ SCH ×4 (06:49→20:58)
[2018-12-05 06:51] LABS: Glucose,Whole Blood 116 mg/dL (75-99)
[2018-12-05] MEDS: PANTOPRAZOLE 40 MG TABLET PO SCH (07:03)
[2018-12-05] MEDS: ALBUTEROL NEBULIZED 2.5 MG/3 ML INHALATION PRN (07:59)
[2018-12-05] MEDS: AMIODARONE 200 MG TAB PO SCH (08:53)
[2018-12-05] MEDS: GABAPENTIN 100 MG CAP PO SCH ×2 (08:53→20:57)
[2018-12-05] MEDS: FUROSEMIDE 10 MG/ML 4 ML VIAL IV SCH (08:53)
[2018-12-05] MEDS: CLOPIDOGREL 75 MG TAB PO SCH (08:53)
[2018-12-05] MEDS: HEPARIN SODIUM,PORCINE 5,000 UNIT/ML 1 ML VIAL SQ SCH ×3 (08:53→23:29)
[2018-12-05] MEDS: CEFEPIME 2 GM in SODIUM CHLORIDE 0.9% 100 ML IVPB SCH (08:53)
[2018-12-05] MEDS: METOPROLOL TARTRATE 50 MG TAB PO SCH ×2 (08:55→20:58)
--- NOTE | 2018-12-05 10:52 | P.PN ---
Subjective Progress Note Date: 12/05/18 Principal diagnosis: Cellulitis of both lower extremities with positive wound culture showing Pseudomonas aeruginosa and Enterobacter cloacae, fever, acute kidney injury. Previous medical history of severe concentric mitral valve regurgitation with severely calcified mitral annulus status post complex mitral valve repair on 10/31/[address] Lozada, coronary artery disease with recent drug- eluting stent placed to the left anterior descending coronary artery in September 2018, chronic diastolic heart failure, hypertension, hyperlipidemia, type 2 diabetes mellitus with peripheral neuropathy and a preoperative hemoglobin A1c of 7%, chronic kidney disease with a baseline creatinine around 2, moderate chronic obstructive pulmonary disease with FEV1 of 54% of predicted value, obstructive sleep apnea without home CPAP use, pulmonary hypertension, obesity, previous tobacco dependence and postoperative transaminitis and paroxysmal atrial fibrillation. The patient is currently sitting up in a recliner in the intensive care unit in no acute distress. Continues to complain of pain to his bilateral lower extremities as well as shortness of breath with activity, however he does state he has not been ambulating very much due to the pain in his legs. Bilateral lower extremity edema still present but decreasing daily with compression wraps. Remains in normal sinus rhythm, hemodynamically stable, excellent urine output with IV Lasix. Remains on cefepime per infectious disease. No new concerns. Objective - Vital Signs Vital signs: Vital Signs Temp 98 F 12/05/18 04:00 Pulse 56 L 12/05/18 08:10 Resp 12 12/05/18 04:00 BP 111/70 12/05/18 04:00 Pulse Ox 94 L 12/05/18 04:00 Intake & Output 12/04/18 12/05/18 12/05/18 18:59 06:59 18:59 Intake Total 325 Output Total 595 745 Balance -270 -745 Intake: IV 100 Sodium Ferric Gluconat- 100 Sucrose 125 mg In Sodium Chloride 0.9% 100 ml @ 100 mls/hr IVPB DAILY JAIME Rx#:[id number] Intake, IV Titration 100 Amount Cefepime 2 gm In Sodium 100 Chloride 0.9% 100 ml @ 200 mls/hr IVPB Q12HR JAIME Rx#:[id number] Oral 125 Output: Urine 595 745 Other: Voiding Method Indwelling Catheter Indwelling Catheter - Constitutional General appearance: Present: cooperative, no acute distress, obese - Respiratory Details: Lungs sounds diminished bilaterally, coarse breath sounds left base. Respirations even, nonlabored. Currently on 2 L nasal cannula with oxygen saturation 95%. Only able to achieve 750 mL on his incentive spirometry. - Cardiovascular Details: S1, S2 present. Slow but regular rate and rhythm, sinus bradycardia with heart rate in the high 50s on telemetry. Sternum stable. Palpable peripheral pulses bilaterally. 2+ pitting edema to bilateral lower extremities. Zi wraps present to bilateral lower extremities. Bilateral lower extremity SCDs present, not currently on the patient. - Gastrointestinal Gastrointestinal Comment(s): Abdomen soft, nontender, nondistended. Active bowel sounds 4 quadrants. Tolerating diet. - Genitourinary Genitourinary Comment(s): Burrell present to dependent drainage, output 745 mL overnight. - Integumentary Integumentary Comment(s): Skin is warm and dry. Anterior chest incision well healed. Scattered blistered areas to his bilateral lower extremities. Scattered erythema to his bilateral lower extremities. Blistered areas are weeping serous drainage. - Neurologic Neurologic: Present: CNII-XII intact - Musculoskeletal Musculoskeletal: Present: generalized weakness, strength equal bilaterally - Psychiatric Psychiatric: Present: A&O x's 3 - Allied health notes Allied health notes reviewed: nursing - Labs CBC & Chem 7: 12/05/18 04:40 12/05/18 04:40 Labs: Abnormal Lab Results - Last 24 Hours (Table) 12/04/18 12/04/18 12/04/18 Range/Units 11:57 17:16 20:42 RBC (4.30-5.90) m/uL Hgb (13.0-17.5) gm/dL Hct (39.0-53.0) % MCHC (31.0-37.0) g/dL RDW (11.5-15.5) % Neutrophils # (1.3-7.7) k/uL Lymphocytes # (1.0-4.8) k/uL Sodium (137-145) mmol/L BUN (9-20) mg/dL Creatinine (0.66-1.25) mg/dL Glucose (74-99) mg/dL POC Glucose (mg/dL) 223 H 194 H 221 H (75-99) mg/dL 12/05/18 12/05/18 12/05/18 Range/Units 04:40 04:40 06:48 RBC 2.38 L (4.30-5.90) m/uL Hgb 7.0 L (13.0-17.5) gm/dL Hct 23.5 L (39.0-53.0) % MCHC 29.9 L (31.0-37.0) g/dL RDW 18.0 H (11.5-15.5) % Neutrophils # 8.2 H (1.3-7.7) k/uL Lymphocytes # 0.6 L (1.0-4.8) k/uL Sodium 134 L (137-145) mmol/L BUN 84 H (9-20) mg/dL Creatinine 1.45 H (0.66-1.25) mg/dL Glucose 105 H (74-99) mg/dL POC Glucose (mg/dL) 116 H (75-99) mg/dL Microbiology - Last 24 Hours (Table) 11/29/18 13:55 Blood Culture - Preliminary Blood No Growth after 120 hours Assessment and Plan Assessment: 1. Acute lower extremity cellulitis, fever, elevated WBC cell count, wound culture positive for pseudomonas aeruginosa and Enterobacter cloacae 2. History of severe eccentric mitral valve regurgitation, severely calcified mitral annulus, torn chordae to the P1 posterior leaflet, status post complex mitral valve repair on 10/31/2018 3. History of coronary artery disease with recent drug-eluting stent placed to his left anterior descending coronary artery on 09/24/2018 4. Chronic diastolic heart failure 5. Hypertension 6. Hyperlipidemia 7. Chronic kidney disease stage III with a baseline creatinine of 1.5-2.0 8. Diabetes mellitus type 2, with peripheral neuropathy 9. Anemia of chronic kidney disease 10. Moderate chronic obstructive pulmonary disease 11. Obstructive sleep apnea without home CPAP use 12. Pulmonary hypertension 13. Obesity 14. Osteoarthritis 15. History of tobacco dependence, previous pipe 16. History of paroxysmal atrial fibrillation 17. History of transaminitis Plan: 1. Continue to optimize with medical therapy with aspirin, Plavix, and beta sun. Continue amiodarone per cardiology. 2. Avoid nephrotoxic agents. 3. Diuresis management per nephrology. Currently on Lasix 40 mg IV every 12 hours yeasterday. 4. Increase activity as tolerated. PT/OT following. 5. Antibiotic management per infectious disease. Wound care recommendations per infectious disease. 6. Encourage use of his incentive spirometry every hour while awake. 7. Continue to reinforce open heart discharge instructions. Shower daily, no lifting pushing and pulling anything greater than 10 pounds or jug of milk for 12 weeks. Continue to encourage use of his heart hugger. 8. May transfer to cardiac stepdown unit when bed available from our standpoint. 9. GI, DVT prophylaxis. 10. When the patient is not ambulating or sitting up for meals he is to have his legs elevated higher than the level of his heart 6-8 inches. 11. More recommendations follow based on patient's clinical course. Time with Patient: Greater than 30
[2018-12-05 11:21] LABS: Glucose,Whole Blood 187 mg/dL (75-99)
--- NOTE | 2018-12-05 11:44 | P.PN ---
Subjective Progress Note Date: 12/05/18 Principal diagnosis: Cellulitis of both lower extremities secondary to pseudomonas aeruginosa and acute kidney injury. 73-year-old male patient with previous history of mitral valve repair with a very slow recovery and ultimately was discharged to rehabilitation. Posterior the patient was admitted for an acute kidney injury from which she recovered and the kidney function went back to its baseline. The patient was discharged back to [facility] where he underwent further rehabilitation and ultimately was discharged home where he states 2 days and he came back to the hospital because of worsening lower extremities edema and ulceration and fever. The patient was initially was admitted to the medical floor he was given diuretics. He was having significant amount of pitting edema lower extremities bilaterally. Troponins were minimally elevated. His hemoglobin was at 8.2. His creatinine was at 1.8. The patient subsequently became hypotensive. He had a transient hypotension and got moved to the intensive care unit. Currently he is afebrile although on admission had a temperature of 102.8. He was seen by infectious disease. Lower extremity edema and ulceration was noted. He was placed on a combination of antibiotics. He was given a bolus of 500 mL and currently his blood pressure is normalized without the use of any pressors. No altered mentation. No significant cough or sputum production. No chest pain. He is known to have coronary artery disease with previous stenting of the LAD, diastolic heart failure, hypertension and hyperlipidemia and diabetes mellitus and peripheral neuropathy. He also suffers from staged 3 chronic kidney disease, COPD and obstructive sleep apnea and he has a component of secondary pulmonary hypertension related to his valvular heart disease. Currently is on a combination of vancomycin and Zosyn. Diuretics have been discontinued. He is also receiving normal saline at rate of 25 mL an hour. Tolerating his diet. On today's evaluation of 12/01/2018, I'm seeing this patient for a follow-up. The patient doing better than yesterday. No issues with blood pressure. The patient did not require any pressors. After being given a bolus of 500 mL, the blood pressure normalizes. The patient has ulceration of the lower extremities bilaterally. Cultures showed gram-negative bacillus and final cultures are still pending for now. Meanwhile he is covered with a combination of Zosyn and vancomycin. He is using incentive spirometer. Sternum stable clean and intact. Cardiac rhythm is sinus. No nausea. No vomiting. No emesis. He does have some increased swelling lower extremities bilaterally. He has chronic stage III kidney disease in the patient's creatinine has remained stable at 1.8. His repe at echocardiogram showed moderate degree of mitral regurgitation with pulmonary hypertension. No other significant events otherwise for now. He is awake and alert and following commands and answering questions appropriately. He is receiving daily Lasix 40 mg IV push every 24 hours. On 12/02/2018, the patient is hemodynamic is stable. In fact his blood pressure has normalized and it's higher on today's evaluation. His lower extremity edema is improved. The wounds were noted. The patient has vesicle formations due to lower extremity edema and there was large vesicle on the lateral aspect of the left ankle. There is another ulcer over the anterior aspect of the left lower extremity chest some purulent base. Cultures from that is showing gram- negative/pseudomonas. Currently on Zosyn. Vancomycin is also on board. He is receiving Lasix once a day. His chest x-ray today is showing edema and cardiomegaly. No fever. No chills. Still on oxygen at 4 L per minute nasal cannula. Denies having any chest pain. Sternum stable clean and intact. Is complaining of chronic pain and neuropathy and lower extremity and his mobility is limited. No cough no sputum production. No hemoptysis. No other complaints otherwise for now. Patient was reevaluated today on 12/03/2018, remains in the intensive care unit, he is hemodynamically stable, responding fairly well to antibiotics for his ongoing cellulitis. He is hemodynamically stable, his lower extremity edema is improved. Both lower extremities are wrapped with Zi wrapping and sterile dressing. Being followed by infectious disease on the case. Microbiology from left ankle is showing pseudomonas aeruginosa and Enterobacter cloacae. Labs were reviewed relatively normal electrolytes, normal CBC hemoglobin is 7.7 BUN is 64 creatinine is 1.46. Improving, his creatinine was 1.91 on admission. Reevaluated today on 12/04/2018, patient remains in the intensive care unit, remains on antibiotics, and he is hemodynamically stable. Denies presently any shortness of breath, the swelling in his lower extremities has significantly improved. Legs are being elevated most of the day. Continues to have large blisters to the medial malleolus and it is fluid-filled. He also had fluid- filled blister to the right medial malleolus. Patient remains on antibiotics in the form of Zosyn his cultures were positive for Pseudomonas and Enterobacter. Oxygen-car the patient is on 2 L nasal cannula. Reevaluated today on 12/05/2018, patient remains in the ICU, antibiotics, diuretics, his cellulitis is being addressed by infectious disease on the case, patient continues to have pain and lower extremities. Pulmonary-car is doing okay, on few liters nasal cannula, does not have any shortness of breath, hence I plan to transfer the patient to a regular medical floor with remote telemetry. Labs were reviewed CBC is normal hemoglobin is 7 however elects lites are normal BUN is 84 creatinine 1.45. Hence will cut down the Lasix to 40 mg daily instead of twice a day. Objective - Vital Signs Vital signs: Vital Signs Temp 98.2 F 12/05/18 08:00 Pulse 56 L 12/05/18 08:10 Resp 12 12/05/18 08:00 BP 114/60 12/05/18 08:00 Pulse Ox 95 12/05/18 08:00 Intake & Output 12/04/18 12/05/18 12/05/18 18:59 06:59 18:59 Intake Total 325 Output Total 595 745 Balance -270 -745 Intake: IV 100 Sodium Ferric Gluconat- 100 Sucrose 125 mg In Sodium Chloride 0.9% 100 ml @ 100 mls/hr IVPB DAILY JAIME Rx#:[id number] Intake, IV Titration 100 Amount Cefepime 2 gm In Sodium 100 Chloride 0.9% 100 ml @ 200 mls/hr IVPB Q12HR JAIME Rx#:[id number] Oral 125 Output: Urine 595 745 Other: Voiding Method Indwelling Catheter Indwelling Catheter Indwelling Catheter - Exam Physical Exam: Revealed 73-year-old white male in no distress. Head: Atraumatic, normocephalic. HEENT:[Neck is supple.] [No neck masses.] [No thyromegaly.] [No JVD.] Chest: [Clear throughout, no crackles, no rhonchi, no wheezes.] Cardiac Exam: [Normal S1 and S2, no S3 gallop, no murmur.] Abdomen: [Soft, nontender, no megaly, no rebound, no guarding, normal bowel sounds.] Extremities: Lower extremities are wrapped with Zi bandage in sterile dressing, not examined today.. Neurological Exam: Alert and oriented 3. [No focal neurologic deficit.] Psychiatric: Normal mood, blunt affect and normal mental status examination. Lymphatics: No palpable adenopathy noted. - Labs CBC & Chem 7: 12/05/18 04:40 12/05/18 04:40 Labs: Abnormal Lab Results - Last 24 Hours (Table) 12/04/18 12/04/18 12/04/18 Range/Units 11:57 17:16 20:42 RBC (4.30-5.90) m/uL Hgb (13.0-17.5) gm/dL Hct (39.0-53.0) % MCHC (31.0-37.0) g/dL RDW (11.5-15.5) % Neutrophils # (1.3-7.7) k/uL Lymphocytes # (1.0-4.8) k/uL Sodium (137-145) mmol/L BUN (9-20) mg/dL Creatinine (0.66-1.25) mg/dL Glucose (74-99) mg/dL POC Glucose (mg/dL) 223 H 194 H 221 H (75-99) mg/dL 12/05/18 12/05/18 12/05/18 Range/Units 04:40 04:40 06:48 RBC 2.38 L (4.30-5.90) m/uL Hgb 7.0 L (13.0-17.5) gm/dL Hct 23.5 L (39.0-53.0) % MCHC 29.9 L (31.0-37.0) g/dL RDW 18.0 H (11.5-15.5) % Neutrophils # 8.2 H (1.3-7.7) k/uL Lymphocytes # 0.6 L (1.0-4.8) k/uL Sodium 134 L (137-145) mmol/L BUN 84 H (9-20) mg/dL Creatinine 1.45 H (0.66-1.25) mg/dL Glucose 105 H (74-99) mg/dL POC Glucose (mg/dL) 116 H (75-99) mg/dL 12/05/18 Range/Units 11:17 RBC (4.30-5.90) m/uL Hgb (13.0-17.5) gm/dL Hct (39.0-53.0) % MCHC (31.0-37.0) g/dL RDW (11.5-15.5) % Neutrophils # (1.3-7.7) k/uL Lymphocytes # (1.0-4.8) k/uL Sodium (137-145) mmol/L BUN (9-20) mg/dL Creatinine (0.66-1.25) mg/dL Glucose (74-99) mg/dL POC Glucose (mg/dL) 187 H (75-99) mg/dL Microbiology - Last 24 Hours (Table) 11/29/18 13:55 Blood Culture - Preliminary Blood No Growth after 120 hours Assessment and Plan Assessment: Impression: 1 acute cellulitis of lower extremities secondary to Pseudomonas and Enterobacter cloaca. 2 hypotension secondary to sepsis, resolved. 3 chronic diastolic congestive heart failure 4 coronary artery disease with recent stent placement to LAD on 09/24/2018 5 acute on chronic kidney disease, improving over the last 5 days. Patient has chronic kidney disease stage III. 6 multiple comorbidities including hypertension, diabetes, hyperlipidemia, obstructive sleep apnea syndrome, paroxysmal atrial fibrillation, diabetic peripheral neuropathy, secondary pulmonary hypertension secondary to valvular heart disease, degenerative joint disease, iron deficiency anemia, and severe COPD FEV1 is in the range of 54%. 7Severe mitral valve regurgitation with severely calcified mitral annulus, torn chordae to P1 posterior leaflet. He is status post complex mitral valve repair with resection of torn chordae to P1, posterior leaflet plication of P1 and P2, small resection P1-P2 leaflet, plication of both anterior mitral trigones, clip ligation of left atrial appendage. On 10/31/2018. Recommendation: Continue antibiotics and present supportive care measures, transfer the patient to a regular medical floor with remote telemetry, cut down Lasix to 40 mg daily instead of twice a day. Continue to optimize medical management including aspirin and Plavix beta blockers, continue diuretics Lasix 40 mg daily instead of twice a day, continue incentive spirometry, continue GI and DVT prophylaxis. Time with Patient: Less than 30
--- NOTE | 2018-12-05 14:32 | P.PN ---
Subjective Progress Note Date: 12/05/18 Principal diagnosis: This is a 73-year-old male with a past medical history of multiple medical problems with recent cardiac surgery including mitral valve replacement, stent placement, myocardial infarction, pulmonary hypertension and was recently admitted for an increase in weakness with swelling and blistering of the lower legs with fever and is being closely monitored. Patient is sitting up in the chair with legs elevated sleeping but easily arousable. Family is at the bedside. Bilateral lower extremities are wrapped with Zi wraps and elevated at this time. Extremely guarded prognosis 12/03/2018 Patient is sitting up in the chair sleeping but arousable. Patient states that he is very lethargic and continues to nod off while talking. Patient is currently in the ICU and is being closely monitored. Patient lower extremities are down and not currently being elevated. Patient states that he does when he is lying in bed. Zi wraps dry and intact with obvious swelling of the bilateral lower extremities. Heart hugger is in place. patient denies any chest pain or palpitations but does state that he is short of breath with just about any movement to or from the chair. Patient has poor appetite but denies any nausea or vomiting. Patient has a low grade temp this morning of 99.1F and is being closely monitored. ID is following as well as many other consultants. Prognosis is guarded. 12/04/2018 Patient is sitting up in the chair with bilateral legs elevated in no acute distress. Patient states that he is having worsening discomfort in the bilateral lower extremities especially his feet. Discussed with the patient in detail about keeping the legs elevated to help minimize the swelling and discomfort. Zi wraps along with Silvadene cream were being applied by nursing staff at the time of the visit. Multiple ulcerations lower extremities bilaterally are present with slight improvement to the ulcerations of the shins with some scabbing noted. Infectious disease is following closely for antibiotic coverage as well as wound care therapy. Patient states he is not eating much but has been attempting to eat more to build up his strength. Patient states that he still having some shortness of breath with exertion. Discussed with the patient at length about the importance of using incentive spirometer at the bedside at least 10 times per hour while awake. Patient denies any chest pain or palpitations at this time. Patient states that he sti ll very fatigued and feels exhausted. Multiple medical consultations are following closely. Guarded prognosis. 12/05/2018 Patient is sitting up in the chair in no acute distress with bilateral legs elevated with daughter at the bedside. Patient denies any shortness of breath, chest pain, or palpitations at this time. Patient denies any nausea or vomiting and is tolerating foods. Patient is a very picky eater and family at the bedside is bringing in protein shakes along with yogurts and other foods to encourage his increase in oral intake. Patient continues to have bilateral lower extremity pain along with bilateral foot pain that he states is not al lowing him to be able to get up and walk and is frustrated. A change in pain medications has been addressed. Discussed with the patient about avoiding sleepiness due to pain medication usage but attempting to find the right dose to help with pain control. Discussed with the patient at length about using the incentive spirometer at least 10 times per hour while awake especially due to the inability to get up and walk at this time. Spoke to the daughter about encouraging him to stay awake during the day by opening the window shades and staying out of bed. Patient has been afebrile. Patient is awaiting a transfer out of the ICU when a bed becomes available. Guarded prognosis. REVIEW OF SYSTEMS: ENT: diminished vision, denies diminished hearing. CARDIOVASCULAR: denies chest pain or palpitations RESPIRATORY: denies labored breathing, reports shortness of breath with exertion but has improved GI: No nausea, vomiting or diarrhea. reports poor appetite : No dysuria or retention. NERVOUS SYSTEM: No numbness, reports weakness, reports inability to get up and walk due to bilateral feet pain CONSTITUTIONAL: reports lethargy and weakness, reports slight improvement DERMATOLOGY: reports swelling and drainage of the lower extremities with pain of bilateral feet Active Medications Acetaminophen (Tylenol Tab) 650 mg PO Q6HR PRN PRN Reason: Mild Pain or Fever > 100.5 Last Admin: 12/02/18 17:22 Dose: 650 mg Documented by: Acetaminophen/Codeine Phosphate (Tylenol #3) 1 - 2 each PO Q6H PRN PRN Reason: Pain Last Admin: 12/05/18 08:54 Dose: 2 each Documented by: Hydrocodone Bitart/Acetaminophen (Melcher [place] 5-325) 0.5 each PO Q6HR PRN PRN Reason: Pain Albuterol Sulfate (Ventolin Nebulized) 2.5 mg INHALATION RT-Q6H PRN PRN Reason: Shortness Of Breath Or Wheezing Last Admin: 12/05/18 07:59 Dose: 2.5 mg Documented by: Amiodarone HCl (Cordarone) 200 mg PO DAILY [facility] Last Admin: 12/05/18 08:53 Dose: 200 mg Documented by: Lipase/Protease/Amylase (Fabricio Dr 5,000 Unit Capsule) 1 each PO DAILY@1700 [facility] [place] Last Admin: 12/04/18 17:20 Dose: 1 each Documented by: Aspirin (Aspirin) 81 mg PO DAILY@1700 [facility] [place] Last Admin: 12/04/18 17:18 Dose: 81 mg Documented by: Bisacodyl (Dulcolax) 10 mg RECTAL DAILY PRN PRN Reason: Constipation Cholecalciferol (Vitamin D3 (25 Mcg = 1000 Iu)) 2,000 unit PO DAILY@1700 [facility] [place] Last Admin: 12/04/18 17:18 Dose: 2,000 unit Documented by: Clopidogrel Bisulfate (Plavix) 75 mg PO DAILY [facility] [place] Last Admin: 12/05/18 08:53 Dose: 75 mg Documented by: Darbepoetin Ruddy (Aranesp) 40 mcg SQ Q7D [facility] [place] Last Admin: 11/30/18 16:15 Dose: 40 mcg Documented by: Escitalopram Oxalate (Lexapro) 10 mg PO HS [facility] [place] Last Admin: 12/04/18 20:49 Dose: 10 mg Documented by: Ferrous Sulfate (Feosol) 325 mg PO DAILY@1700 [facility] [place] Last Admin: 12/04/18 17:18 Dose: 325 mg Documented by: Furosemide (Lasix) 40 mg IV DAILY [facility] Gabapentin (Neurontin) 100 mg PO BID [facility] [place] Last Admin: 12/05/18 08:53 Dose: 100 mg Documented by: Heparin Sodium (Porcine) (Heparin) 5,000 unit SQ Q8HR [facility] Last Admin: 12/05/18 08:53 Dose: 5,000 unit Documented by: Hydromorphone HCl (Dilaudid) 0.125 mg IVP Q4H PRN PRN Reason: Moderate to Severe Pain Last Admin: 12/05/18 10:56 Dose: 0.125 mg Documented by: Cefepime HCl 2 gm/ Sodium (Chloride) 100 mls @ 200 mls/hr IVPB Q24HR [facility] [place] Last Admin: 12/05/18 08:53 Dose: 200 mls/hr Documented by: Insulin Aspart (Novolog) 0 unit SQ [facility]; Protocol Last Admin: 12/05/18 11:58 Dose: 3 unit Documented by: Insulin Detemir (Levemir) 10 unit SQ [facility] Last Admin: 12/04/18 20:47 Dose: 10 unit Documented by: Magnesium Hydroxide (Milk Of Magnesia) 2,400 mg PO DAILY PRN PRN Reason: Constipation Metoprolol Tartrate (Lopressor) 50 mg PO BID [facility] Last Admin: 12/05/18 08:55 Dose: 50 mg Documented by: Morphine Sulfate (Morphine Sulfate (Inj)) 1 mg IVP ONCE PRN PRN Reason: Pain Scale 9 To 10 Last Admin: 12/02/18 10:07 Dose: 1 mg Documented by: Multivitamins (Theragran) 1 each PO DAILY@1700 [facility] Last Admin: 12/04/18 17:18 Dose: 1 each Documented by: Naloxone HCl (Narcan) 0.2 mg IV Q2M PRN PRN Reason: Opioid Reversal Pantoprazole Sodium (Protonix) 40 mg PO AC-BRKFST [facility] [place] Last Admin: 12/05/18 07:03 Dose: 40 mg Documented by: Senna/Docusate Sodium (Senokot-S) 2 each PO [facility] Silver Sulfadiazine (Silvadene Cream) 1 applic TOPICAL DAILY [facility] [place] Last Admin: 12/04/18 10:02 Dose: 1 applic Documented by: Objective - Vital Signs Vital signs: Vital Signs Temp 98.2 F 12/05/18 08:00 Pulse 56 L 12/05/18 08:10 Resp 12 12/05/18 08:00 BP 114/60 12/05/18 08:00 Pulse Ox 95 12/05/18 08:00 Intake & Output 12/04/18 12/05/18 12/05/18 18:59 06:59 18:59 Intake Total 325 350 Output Total 571 344 870 Balance -126 -054 -405 Intake: IV 100 Sodium Ferric Gluconat- 100 Sucrose 125 mg In Sodium Chloride 0.9% 100 ml @ 100 mls/hr IVPB DAILY [facility] [place] Rx#:[id number] Intake, IV Titration 100 100 Amount Cefepime 2 gm In Sodium 100 Chloride 0.9% 100 ml @ 200 mls/hr IVPB Q12HR [facility] Rx#:[id number] Cefepime 2 gm In Sodium 100 Chloride 0.9% 100 ml @ 200 mls/hr IVPB Q24HR [facility] Rx#:[id number] Oral 125 250 Output: Urine 595 745 870 Other: Voiding Method Indwelling Catheter Indwelling Catheter Indwelling Catheter - Exam Gen: This is a 73-year-old male sitting up in the chair in no acute distress. Vital signs are stable. Temp is 98.2 F oral, pulse is 57, respirations are 12, blood pressure is 114/60, oxygen saturation is 95 % on 2 L nasal cannula HEENT: Head is atraumatic, normocephalic. Pupils equal, round. Sclerae is anicteric. NECK: Supple. No JVD. No lymphadenopathy. No thyromegaly. LUNGS: Diminished breath sounds at the bases. No wheezes or rhonchi. No intercostal retractions. HEART: S1 and S2 are muffled ABDOMEN: Soft. Obese. Bowel sounds are present. No masses. No tenderness. EXTREMITIES: Mild pedal edema. Slightly improved. Bilateral lower extremity swelling. Zi wrap is intact. No calf tenderness. NEUROLOGICAL: Patient is awake, alert and oriented x3. Cranial nerves 2 through 12 are grossly intact. - Labs CBC & Chem 7: 12/05/18 04:40 12/05/18 04:40 Labs: Abnormal Lab Results - Last 24 Hours (Table) 12/04/18 12/04/18 12/05/18 Range/Units 17:16 20:42 04:40 RBC 2.38 L (4.30-5.90) m/uL Hgb 7.0 L (13.0-17.5) gm/dL Hct 23.5 L (39.0-53.0) % MCHC 29.9 L (31.0-37.0) g/dL RDW 18.0 H (11.5-15.5) % Neutrophils # 8.2 H (1.3-7.7) k/uL Lymphocytes # 0.6 L (1.0-4.8) k/uL Sodium (137-145) mmol/L BUN (9-20) mg/dL Creatinine (0.66-1.25) mg/dL Glucose (74-99) mg/dL POC Glucose (mg/dL) 194 H 221 H (75-99) mg/dL 12/05/18 12/05/18 12/05/18 Range/Units 04:40 06:48 11:17 RBC (4.30-5.90) m/uL Hgb (13.0-17.5) gm/dL Hct (39.0-53.0) % MCHC (31.0-37.0) g/dL RDW (11.5-15.5) % Neutrophils # (1.3-7.7) k/uL Lymphocytes # (1.0-4.8) k/uL Sodium 134 L (137-145) mmol/L BUN 84 H (9-20) mg/dL Creatinine 1.45 H (0.66-1.25) mg/dL Glucose 105 H (74-99) mg/dL POC Glucose (mg/dL) 116 H 187 H (75-99) mg/dL Microbiology - Last 24 Hours (Table) 11/29/18 13:55 Blood Culture - Preliminary Blood No Growth after 120 hours Assessment and Plan Assessment: Acute bilateral leg cellulitis with sepsis, present on admission pseudomonas aeruginosa as well as gram-negative bacilli; infectious disease if following. Diffuse generalized weakness with possible myopathy, present on admission hypotension possible secondary to hypovolemia Increased WBC Anemia of chronic disease Hyponatremia Change in mental status, acute metabolic encephalopathy, multifactorial Increased creatinine with chronic kidney disease stage III Elevated AST, ALT, possibly hepatitis Troponin 0.043, indeterminate Congestive heart failure with chronic diastolic dysfunction, recent mitral valve replacement for mitral regurgitation History of coronary artery disease/stent History pulmonary hypertension Hyperlipidemia History of gastroesophageal reflux disease Diabetes mellitus type 2 with diabetic nephropathy Gait dysfunction History of obstructive sleep apnea history of degenerative joint disease Full code Recommendations and discussion: Recommend to continue current medications, management, and symptomatic treatment. Patient is awaiting a bed on selective to be transferred from the ICU at this time. Continue to encourage the patient to use the incentive spirometer at least 10 times every hour while awake. Discussed with the patient and family about pain management and a small dose of Melcher [place] has been added as needed. Will continue to monitor vital signs and labs closely Patient will continue on broad-spectrum IV antibiotics in the form of cefepime and infectious disease is following. Nephrology is following. PT/OT is following. Cardiology following. Due to multiple complex medical issues overall prognosis is extremely guarded. Further recommendations to follow.
[2018-12-05] MEDS: HYDROcodone/APAP 5-325MG 1 EACH TAB PO PRN (16:08)
[2018-12-05] MEDS: FERROUS SULFATE 325 MG TAB PO SCH (17:14)
[2018-12-05] MEDS: ASPIRIN 81 MG PO SCH (17:14)
[2018-12-05] MEDS: CHOLECALCIFEROL 1,000 UNIT TAB PO SCH (17:14)
[2018-12-05 17:18] LABS: Glucose,Whole Blood 178 mg/dL (75-99)
[2018-12-05] MEDS: LIPASE 5,000/PROTEASE 17,000/AMYLASE 24,000 PO SCH (18:00)
[2018-12-05] MEDS: MULTIVITAMINS, THERA 1 EACH TAB PO SCH (18:01)
[2018-12-05 20:42] LABS: Glucose,Whole Blood 224 mg/dL (75-99)
[2018-12-05] MEDS: INSULIN DETEMIR (LEVEMIR) 100 UNIT/ML SYR SQ SCH (20:58)
[2018-12-05] MEDS: SENNOSIDES-DOCUSATE SODIUM 1 EACH TAB PO SCH (20:58)
[2018-12-05] MEDS: ESCITALOPRAM 10 MG TAB PO SCH (20:58)
--- NOTE | 2018-12-05 22:10 | PN ---
PROGRESS NOTE Patient is seen for followup for acute kidney injury and severe volume overload. He is currently maintained on IV Lasix once a day. Patient continues to have significant pain in his lower extremities. He continues to have edema, and his legs are wrapped. On examination today, blood pressure was 114/60, heart rate 57 per minute. Patient is afebrile. EXAMINATION OF THE HEART: S1 and S2. EXAMINATION OF LUNGS: Bilateral breath sounds are heard. ABDOMEN: Soft, non-tender. Examination of lower extremities shows bilateral extremities to be wrapped. They are edematous and tender. BIOLOGY TEACHER exam is grossly intact. Labs show hemoglobin 7.0 g/dL, sodium 134, BUN 84, serum creatinine 1.45. ASSESSMENT: 1. Acute kidney injury; renal function is currently stable; mainly secondary to cardiorenal syndrome. 2. Chronic kidney disease, stage III, baseline creatinine around 1.5. Renal function is at baseline. 3. Severe volume overload, maintained on IV Lasix. 4. Coronary artery disease, status post coronary stenting. 5. Status post mitral valve repair. 6. Lower extremity cellulitis, maintained on IV antibiotics. 7. Anemia of chronic disease with iron deficiency, maintained on Aranesp, status post IV iron. PLAN: Continue with IV Lasix. I will increase it again to b.i.d. Patient continues to have significant edema, and as his renal function is stable, he will benefit from continued diuresis. MMODL / IJN: [id number] /
[2018-12-06] MEDS: PIPERACILLIN-TAZOBACTAM 3.375 GM in SODIUM CHLORIDE 0.9% 100 ML IVPB SCH (07:18)
[2018-12-06] MEDS: INSULIN ASPART (NovoLOG) 100 UNIT/ML VIAL SQ SCH ×5 (07:19→20:58)
[2018-12-06] MEDS: FUROSEMIDE 10 MG/ML 4 ML VIAL IV SCH (07:27)
[2018-12-06] MEDS: AMIODARONE 200 MG TAB PO SCH (07:27)
[2018-12-06] MEDS: CLOPIDOGREL 75 MG TAB PO SCH (07:27)
[2018-12-06] MEDS: GABAPENTIN 100 MG CAP PO SCH ×2 (07:27→20:57)
[2018-12-06] MEDS: METOPROLOL TARTRATE 50 MG TAB PO SCH ×2 (07:27→20:57)
[2018-12-06] MEDS: PANTOPRAZOLE 40 MG TABLET PO SCH (07:27)
[2018-12-06 07:28] LABS: Glucose,Whole Blood 173 mg/dL (75-99)
[2018-12-06] MEDS: HEPARIN SODIUM,PORCINE 5,000 UNIT/ML 1 ML VIAL SQ SCH ×3 (07:28→23:18)
[2018-12-06 08:09] LABS: Anisocytosis Slight; HCT 22.6 % (39.0-53.0); HGB 7.2 gm/dL (13.0-17.5); Hypochromasia Marked; MCH 30.7 pg (25.0-35.0); MCHC 31.8 g/dL (31.0-37.0); MCV 96.7 fL (80.0-100.0); Macrocytosis Slight; Mean Platelet Volume 7.2; Platelet Count 344 k/uL (150-450); RBC 2.34 m/uL (4.30-5.90); RDW 18.3 % (11.5-15.5); WBC 13.5 k/uL (3.8-10.6)
--- NOTE | 2018-12-06 08:28 | P.PN ---
Subjective Progress Note Date: 12/06/18 Principal diagnosis: Cellulitis of both lower extremities with positive wound culture showing Pseudomonas aeruginosa and Enterobacter cloacae, fever, acute kidney injury. Previous medical history of severe concentric mitral valve regurgitation with severely calcified mitral annulus status post complex mitral valve repair on 10/31/[address] Lozada, coronary artery disease with recent drug- eluting stent placed to the left anterior descending coronary artery in September 2018, chronic diastolic heart failure, hypertension, hyperlipidemia, type 2 diabetes mellitus with peripheral neuropathy and a preoperative hemoglobin A1c of 7%, chronic kidney disease with a baseline creatinine around 2, moderate chronic obstructive pulmonary disease with FEV1 of 54% of predicted value, obstructive sleep apnea without home CPAP use, pulmonary hypertension, obesity, previous tobacco dependence and postoperative transaminitis and paroxysmal atrial fibrillation. The patient is currently sitting up in a recliner in no acute distress. Was transferred to yesterday. Continues to complain of pain to his bilateral lower extremities as well as shortness of breath with activity, he is refusing to walk or even get into a wheelchair to go down for 2V CXR. Bilateral lower extremity edema still present but significantly decreased since admission. Remains in normal sinus rhythm, hemodynamically stable, excellent urine output with IV Lasix. Remains on cefepime per infectious disease. No new concerns. Objective - Vital Signs Vital signs: Vital Signs Temp 98.1 F 12/06/18 07:00 Pulse 54 L 12/06/18 07:00 Resp 14 12/06/18 07:00 BP 153/73 12/06/18 07:00 Pulse Ox 99 12/06/18 07:00 Intake & Output 12/05/18 12/06/18 12/06/18 18:59 06:59 18:59 Intake Total 350 600 Output Total 870 650 Balance -520 -50 Intake: Intake, IV Titration 100 Amount Cefepime 2 gm In Sodium 100 Chloride 0.9% 100 ml @ 200 mls/hr IVPB Q24HR [facility] Rx#:[id number] Oral 250 600 Output: Urine 870 650 Other: Voiding Method Indwelling Catheter Indwelling Catheter - Constitutional Constitutional Comment(s): Uncooperative with care General appearance: Present: no acute distress, obese - Respiratory Details: Lungs sounds diminished bilaterally. Respirations even, nonlabored. Currently on 2 L nasal cannula with oxygen saturation 98%. Only able to achieve 750 mL on his incentive spirometry. - Cardiovascular Details: S1, S2 present. Slow but regular rate and rhythm, sinus bradycardia with heart rate in the high 50s on telemetry. Sternum stable. Palpable peripheral pulses bilaterally. 2+ pitting edema to bilateral lower extremities. Zi wraps present to bilateral lower extremities. Bilateral lower extremity SCDs present. - Gastrointestinal Gastrointestinal Comment(s): Abdomen soft, nontender, nondistended. Active bowel sounds 4 quadrants. Tolerating diet minimally.No bowel movement since admission. - Genitourinary Genitourinary Comment(s): Burrell present draining clear yellow urine, output 650 mL overnight. - Integumentary Integumentary Comment(s): Skin is warm and dry. Anterior chest incision well healed. Scattered blistered areas to his bilateral lower extremities with scabbing. Scattered erythema to his bilateral lower extremities. Lateral malleolus with large fluid filled blister which was drained of serous fluid yesterday with dressing change. - Neurologic Neurologic: Present: CNII-XII intact - Musculoskeletal Musculoskeletal: Present: generalized weakness, strength equal bilaterally - Psychiatric Psychiatric: Present: A&O x's 3 - Allied health notes Allied health notes reviewed: nursing - Labs CBC & Chem 7: 12/05/18 04:40 12/05/18 04:40 Labs: Abnormal Lab Results - Last 24 Hours (Table) 12/05/18 12/05/18 12/05/18 Range/Units 11:17 17:04 20:30 POC Glucose (mg/dL) 187 H 178 H 224 H (75-99) mg/dL 12/06/18 Range/Units 07:17 POC Glucose (mg/dL) 173 H (75-99) mg/dL Microbiology - Last 24 Hours (Table) 11/29/18 13:55 Blood Culture - Final Blood No Growth after 144 hours - Imaging and Cardiology Chest x-ray: pending Assessment and Plan Assessment: 1. Acute lower extremity cellulitis, fever, elevated WBC cell count, wound cult ure positive for pseudomonas aeruginosa and Enterobacter cloacae 2. History of severe eccentric mitral valve regurgitation, severely calcified mitral annulus, torn chordae to the P1 posterior leaflet, status post complex mitral valve repair on 10/31/2018 3. History of coronary artery disease with recent drug-eluting stent placed to his left anterior descending coronary artery on 09/24/2018 4. Chronic diastolic heart failure 5. Hypertension 6. Hyperlipidemia 7. Chronic kidney disease stage III with a baseline creatinine of 1.5-2.0 8. Diabetes mellitus type 2, with peripheral neuropathy 9. Anemia of chronic kidney disease 10. Moderate chronic obstructive pulmonary disease 11. Obstructive sleep apnea without home CPAP use 12. Pulmonary hypertension 13. Obesity 14. Osteoarthritis 15. History of tobacco dependence, previous pipe 16. History of paroxysmal atrial fibrillation 17. History of transaminitis Plan: 1. Continue to optimize with medical therapy with aspirin, Plavix, and beta sun. Continue amiodarone per cardiology. Will restart statin once liver enzymes return to normal 2. Avoid nephrotoxic agents. 3. Diuresis management per nephrology. Currently on Lasix 40 mg IV daily. 4. Increase activity as tolerated. PT/OT following. Patient needs maximum encouragement. 5. Antibiotic management per infectious disease. Wound care recommendations per infectious disease. 6. Wean O2 as tolerated. Encourage use of his incentive spirometry every hour while awake. 7. Continue to reinforce open heart discharge instructions. Shower daily, no lifting pushing and pulling anything greater than 10 pounds or jug of milk for 12 weeks. Continue to encourage use of his heart hugger. 8. Pain control per primary care services. 9. GI, DVT prophylaxis. 10. When the patient is not ambulating or sitting up for meals he is to have his legs elevated higher than the level of his heart 6-8 inches. 11. More recommendations follow based on patient's clinical course. Time with Patient: Greater than 30
[2018-12-06 08:35] LABS: Albumin 2.9 g/dL (3.5-5.0); Magnesium 2.4 mg/dL (1.6-2.3); Potassium 4.7 mmol/L (3.5-5.1); Total Protein 5.9 g/dL (6.3-8.2)
[2018-12-06] MEDS: CEFEPIME 2 GM in SODIUM CHLORIDE 0.9% 100 ML IVPB SCH (09:16)
[2018-12-06] MEDS: Acetaminophen-Codeine 300-30mg TAB PO PRN ×2 (09:17→21:03)
[2018-12-06] MEDS: HYDROcodone/APAP 5-325MG 1 EACH TAB PO PRN (10:08)
[2018-12-06 12:14] LABS: Glucose,Whole Blood 201 mg/dL (75-99)
--- NOTE | 2018-12-06 13:08 | P.PN ---
Subjective Progress Note Date: 12/06/18 Principal diagnosis: This is a 73-year-old male with a past medical history of multiple medical problems with recent cardiac surgery including mitral valve replacement, stent placement, myocardial infarction, pulmonary hypertension and was recently admitted for an increase in weakness with swelling and blistering of the lower legs with fever and is being closely monitored. Patient is sitting up in the chair with legs elevated sleeping but easily arousable. Family is at the bedside. Bilateral lower extremities are wrapped with Zi wraps and elevated at this time. Extremely guarded prognosis 12/03/2018 Patient is sitting up in the chair sleeping but arousable. Patient states that he is very lethargic and continues to nod off while talking. Patient is currently in the ICU and is being closely monitored. Patient lower extremities are down and not currently being elevated. Patient states that he does when he is lying in bed. Zi wraps dry and intact with obvious swelling of the bilateral lower extremities. Heart hugger is in place. patient denies any chest pain or palpitations but does state that he is short of breath with just about any movement to or from the chair. Patient has poor appetite but denies any nausea or vomiting. Patient has a low grade temp this morning of 99.1F and is being closely monitored. ID is following as well as many other consultants. Prognosis is guarded. 12/04/2018 Patient is sitting up in the chair with bilateral legs elevated in no acute distress. Patient states that he is having worsening discomfort in the bilateral lower extremities especially his feet. Discussed with the patient in detail about keeping the legs elevated to help minimize the swelling and discomfort. Zi wraps along with Silvadene cream were being applied by nursing staff at the time of the visit. Multiple ulcerations lower extremities bilaterally are present with slight improvement to the ulcerations of the shins with some scabbing noted. Infectious disease is following closely for antibiotic coverage as well as wound care therapy. Patient states he is not eating much but has been attempting to eat more to build up his strength. Patient states that he still having some shortness of breath with exertion. Discussed with the patient at length about the importance of using incentive spirometer at the bedside at least 10 times per hour while awake. Patient denies any chest pain or palpitations at this time. Patient states that he sti ll very fatigued and feels exhausted. Multiple medical consultations are following closely. Guarded prognosis. 12/05/2018 Patient is sitting up in the chair in no acute distress with bilateral legs elevated with daughter at the bedside. Patient denies any shortness of breath, chest pain, or palpitations at this time. Patient denies any nausea or vomiting and is tolerating foods. Patient is a very picky eater and family at the bedside is bringing in protein shakes along with yogurts and other foods to encourage his increase in oral intake. Patient continues to have bilateral lower extremity pain along with bilateral foot pain that he states is not al lowing him to be able to get up and walk and is frustrated. A change in pain medications has been addressed. Discussed with the patient about avoiding sleepiness due to pain medication usage but attempting to find the right dose to help with pain control. Discussed with the patient at length about using the incentive spirometer at least 10 times per hour while awake especially due to the inability to get up and walk at this time. Spoke to the daughter about encouraging him to stay awake during the day by opening the window shades and staying out of bed. Patient has been afebrile. Patient is awaiting a transfer out of the ICU when a bed becomes available. Guarded prognosis. 12/06/2018 Patient is sitting up in the chair in no acute distress and continues to state that he is having a lot of pain and discomfort in his bilateral lower extremities especially his feet. Patient was moved out of the ICU and is being monitored closely. Per nursing staff the patient has been sitting in his chair all night and most of the day and nods off and on all day out of sleep. Patient was refusing to work with PT/OT due to the discomfort of lower extremities. Discussed with the patient at length today about getting up and working with PT OT as this is a very important part of his treatment plan and overall prognosis. Patient does have pain medications ordered and is taking. Spoke with nursing staff today about cautiously giving narcotics as he continues to be quite lethargic all day. No family is at the bedside today. Discussed with the patient at length today about continuing to use his incentive spirometer and patient stated that he is using the incentive spirometer when he can reach it as it was on the other side of the table this morning. Maximum was 750 today on the incentive spirometer. Patient continues to need intense encouragement to do much of anything. Guarded prognosis. Objective - Vital Signs Vital signs: Vital Signs Temp 98.1 F 12/06/18 07:00 Pulse 54 L 12/06/18 07:00 Resp 14 12/06/18 07:00 BP 153/73 12/06/18 07:00 Pulse Ox 99 12/06/18 07:00 Intake & Output 12/05/18 12/06/18 12/06/18 18:59 06:59 18:59 Intake Total 350 600 Output Total 870 650 Balance -520 -50 Intake: Intake, IV Titration 100 Amount Cefepime 2 gm In Sodium 100 Chloride 0.9% 100 ml @ 200 mls/hr IVPB Q24HR [facility] Rx#:[id number] Oral 250 600 Output: Urine 870 650 Other: Voiding Method Indwelling Catheter Indwelling Catheter Indwelling Catheter - Exam Gen: This is a 73-year-old male sitting up in the chair in no acute distress. Vital signs are stable. Temp is 98.1 F oral, pulse is 54, respirations are 14, blood pressure is 153/73, oxygen saturation is 99 % on 2 L nasal cannula HEENT: Head is atraumatic, normocephalic. Pupils equal, round. Sclerae is anict mike. NECK: Supple. No JVD. No lymphadenopathy. No thyromegaly. LUNGS: Diminished breath sounds at the bases. No wheezes or rhonchi. No intercostal retractions. HEART: S1 and S2 are muffled ABDOMEN: Soft. Obese. Bowel sounds are present. No masses. No tenderness. EXTREMITIES: Mild pedal edema. Slightly improved. Bilateral lower extremity swelling. Zi wrap is intact. No calf tenderness. Bilateral lower extremity tenderness upon palpation. NEUROLOGICAL: Patient is awake, alert and oriented x3. Cranial nerves 2 through 12 are grossly intact. SKIN: Blistering and ulcers noted to bilateral lower extremities and bilateral feet with redness and swelling noted of the surrounding tissue - Labs CBC & Chem 7: 12/06/18 07:32 12/06/18 07:32 Labs: Abnormal Lab Results - Last 24 Hours (Table) 12/05/18 12/05/18 12/06/18 Range/Units 17:04 20:30 07:17 WBC (3.8-10.6) k/uL RBC (4.30-5.90) m/uL Hgb (13.0-17.5) gm/dL Hct (39.0-53.0) % RDW (11.5-15.5) % Sodium (137-145) mmol/L Chloride (98-107) mmol/L Carbon Dioxide (22-30) mmol/L BUN (9-20) mg/dL Creatinine (0.66-1.25) mg/dL Glucose (74-99) mg/dL POC Glucose (mg/dL) 178 H 224 H 173 H (75-99) mg/dL Magnesium (1.6-2.3) mg/dL Alkaline Phosphatase (38-126) U/L Total Protein (6.3-8.2) g/dL Albumin (3.5-5.0) g/dL 12/06/18 12/06/18 12/06/18 Range/Units 07:32 07:32 12:01 WBC 13.5 H (3.8-10.6) k/uL RBC 2.34 L (4.30-5.90) m/uL Hgb 7.2 L (13.0-17.5) gm/dL Hct 22.6 L (39.0-53.0) % RDW 18.3 H (11.5-15.5) % Sodium 135 L (137-145) mmol/L Chloride 97 L (98-107) mmol/L Carbon Dioxide 32 H (22-30) mmol/L BUN 86 H (9-20) mg/dL Creatinine 1.27 H (0.66-1.25) mg/dL Glucose 162 H (74-99) mg/dL POC Glucose (mg/dL) 201 H (75-99) mg/dL Magnesium 2.4 H (1.6-2.3) mg/dL Alkaline Phosphatase 183 H (38-126) U/L Total Protein 5.9 L (6.3-8.2) g/dL Albumin 2.9 L (3.5-5.0) g/dL Microbiology - Last 24 Hours (Table) 11/29/18 13:55 Blood Culture - Final Blood No Growth after 144 hours Assessment and Plan Assessment: Acute bilateral leg cellulitis with sepsis, present on admission pseudomonas aeruginosa as well as gram-negative bacilli; infectious disease if following. Patient is currently on IV cefepime Diffuse generalized weakness with possible myopathy, present on admission hypotension possible secondary to hypovolemia Increased WBC Anemia of chronic disease Hyponatremia Change in mental status, acute metabolic encephalopathy, multifactorial Increased creatinine with chronic kidney disease stage III; current creatinine is 1.27 Elevated AST, ALT, possibly hepatitis, improved Troponin 0.043, indeterminate Congestive heart failure with chronic diastolic dysfunction, recent mitral valve replacement for mitral regurgitation History of coronary artery disease/stent History pulmonary hypertension Hyperlipidemia History of gastroesophageal reflux disease Diabetes mellitus type 2 with diabetic nephropathy Gait dysfunction History of obstructive sleep apnea history of degenerative joint disease Full code Recommendations and discussion: Recommend to continue current medications, management, and symptomatic treatment. Continue to encourage the patient to use the incentive spirometer at least 10 times every hour while awake. Discussed with the patient about PT/OT and encouraged patient to continue to work with them for strength and mobility. Will continue to monitor vital signs and labs closely Patient will continue on broad-spectrum IV antibiotics in the form of cefepime and infectious disease is following. Nephrology is following. IV Lasix was increased to twice daily per nephrology recommendations. PT/OT is following. Cardiology following. Once stabilized patient will be returning to [facility]. Due to multiple complex medical issues overall prognosis is extremely guarded. Further recommendations to follow.
--- NOTE | 2018-12-06 13:48 | CDI ---
Documentation Clarification Form Date: 12/06/2018 1:25:09 PM From: Ute Gabriel RN CCDS Admit Date: 11/29/2018 4:45:00 PM Patient Name: Deep Anderson Visit Number: [id number] Discharge Date: ATTENTION: The Clinical Documentation Specialists (CDI) and [facility] Coding Staff appreciate your assistance in clarifying documentation. Please respond to the clarification below the line at the bottom and electronically sign. The CDI & [facility] Coding staff will review the response and follow-up if needed. Please note: Queries are made part of the Legal Health Record. If you have any questions, please contact the author of this message via ITS. Dr. Reshma Merrill Conflicting documentation has been found in the medical record: Cardiology consult Diastolic congestive heart failure acute on chronic Your Progress Notes Congestive Heart Failure with chronic diastolic dysfunction History/Risk Factors: 73 year old male presents to the ED for increasing swelling and blistering of the leg with a fever. Medical history recent Cardiac surgery including mitral valve replacement Clinical Indicators: [place] bnp [id number], Per Cardiology Consult We will request repeat Echocardiogram with Doppler study be performed. Echo 11/30/2018 Overall left ventricular systolic function is low normal with , an EF between 50-55% Treatment: Amiodarone Hcl, Lasix iv 40mg tid , changed to bid and now daily. Lopressor In your opinion, what is the most clinically appropriate diagnosis for this patient? * Acute on Chronic Diastolic CHF * Chronic Diastolic CHF * Other explanation of clinical findings * Unable to determine (no explanation for clinical findings) (Last Revision: June 2017) Acute on Chronic Diastolic CHF MTDD
--- NOTE | 2018-12-06 14:18 | XR ---
EXAMINATION TYPE: XR chest 1V portable DATE OF EXAM: 12/06/2018 HISTORY: Shortness of breath. COMPARISON: 12/04/2018 TECHNIQUE: Single view of the chest is submitted. FINDINGS: Demonstrated are scattered senescent parenchymal change. There is no evidence for focal infiltrate. Persistent cardiomegaly with small left-sided pleural effusion with probable underlying atelectasis. Improved pulmonary venous congestion. Hilar and mediastinal structures are within normal limits. Degenerative changes are seen of the dorsal spine. IMPRESSION: 1. Persistent cardiomegaly with small left-sided pleural effusion with probable underlying atelectas is. Improved pulmonary venous congestion.
[2018-12-06 16:53] LABS: Glucose,Whole Blood 207 mg/dL (75-99)
[2018-12-06] MEDS: ASPIRIN 81 MG PO SCH (17:01)
[2018-12-06] MEDS: CHOLECALCIFEROL 1,000 UNIT TAB PO SCH (17:01)
[2018-12-06] MEDS: MULTIVITAMINS, THERA 1 EACH TAB PO SCH (17:01)
[2018-12-06] MEDS: FERROUS SULFATE 325 MG TAB PO SCH (17:01)
[2018-12-06] MEDS: LIPASE 5,000/PROTEASE 17,000/AMYLASE 24,000 PO SCH (17:01)
[2018-12-06] MEDS: ALBUTEROL NEBULIZED 2.5 MG/3 ML INHALATION PRN (19:07)
[2018-12-06] MEDS: INSULIN DETEMIR (LEVEMIR) 100 UNIT/ML SYR SQ SCH (20:57)
[2018-12-06] MEDS: SENNOSIDES-DOCUSATE SODIUM 1 EACH TAB PO SCH (20:57)
[2018-12-06] MEDS: ESCITALOPRAM 10 MG TAB PO SCH (20:57)
[2018-12-06] MEDS: ATORVASTATIN 40 MG TAB PO SCH (20:57)
[2018-12-06 20:58] LABS: Glucose,Whole Blood 235 mg/dL (75-99)
[2018-12-07] MEDS: Acetaminophen-Codeine 300-30mg TAB PO PRN (04:28)
[2018-12-07 07:06] LABS: Glucose,Whole Blood 192 mg/dL (75-99)
[2018-12-07] MEDS: INSULIN ASPART (NovoLOG) 100 UNIT/ML VIAL SQ SCH ×4 (07:53→22:04)
[2018-12-07] MEDS: CLOPIDOGREL 75 MG TAB PO SCH (08:00)
[2018-12-07] MEDS: GABAPENTIN 100 MG CAP PO SCH ×2 (08:00→22:07)
[2018-12-07] MEDS: PANTOPRAZOLE 40 MG TABLET PO SCH (08:00)
[2018-12-07] MEDS: CEFEPIME 2 GM in SODIUM CHLORIDE 0.9% 100 ML IVPB SCH (08:01)
[2018-12-07] MEDS: HEPARIN SODIUM,PORCINE 5,000 UNIT/ML 1 ML VIAL SQ SCH ×3 (08:01→23:14)
[2018-12-07 08:12] LABS: Anisocytosis Slight; HCT 23.8 % (39.0-53.0); HGB 7.4 gm/dL (13.0-17.5); Hypochromasia Marked; MCH 30.1 pg (25.0-35.0); MCV 97.2 fL (80.0-100.0); Macrocytosis Slight; Mean Platelet Volume 6.8; Platelet Count 368 k/uL (150-450); RBC 2.45 m/uL (4.30-5.90); RDW 18.6 % (11.5-15.5); WBC 15.9 k/uL (3.8-10.6)
[2018-12-07 08:26] LABS: Calcium 8.8 mg/dL (8.4-10.2); Potassium 4.8 mmol/L (3.5-5.1)
--- NOTE | 2018-12-07 09:43 | P.PN ---
Subjective Progress Note Date: 12/07/18 Principal diagnosis: Cellulitis of both lower extremities with positive wound culture showing Pseudomonas aeruginosa and Enterobacter cloacae, fever, acute kidney injury. Previous medical history of severe concentric mitral valve regurgitation with severely calcified mitral annulus status post complex mitral valve repair on 10/31/[address] Lozada, coronary artery disease with recent drug- eluting stent placed to the left anterior descending coronary artery in September 2018, chronic diastolic heart failure, hypertension, hyperlipidemia, type 2 diabetes mellitus with peripheral neuropathy and a preoperative hemoglobin A1c of 7%, chronic kidney disease with a baseline creatinine around 2, moderate chronic obstructive pulmonary disease with FEV1 of 54% of predicted value, obstructive sleep apnea without home CPAP use, pulmonary hypertension, obesity, previous tobacco dependence and postoperative transaminitis and paroxysmal atrial fibrillation. The patient is currently sitting up in a recliner in no acute distress. Continues to complain of pain to his bilateral lower extremities as well as shortness of breath with activity, he is refusing to walk/stand, participate with physical or occupational therapy. He was sleeping upon assessment, continued to complain of pain to his lower extremities throughout dressing change, and fell back asleep once dressing change was completed. Trace bilateral lower extremity edema still present, zi wraps working well for compression. Remains in normal sinus rhythm, hemodynamically stable, excellent urine output with IV Lasix. Remains on cefepime per infectious disease. Patient also complained yesterday of hallucinations, and today that his legs feel like they are jumping on the inside. Objective - Vital Signs Vital signs: Vital Signs Temp 98.0 F 12/07/18 07:00 Pulse 57 L 12/07/18 07:00 Resp 18 12/07/18 07:00 BP 135/78 12/07/18 07:00 Pulse Ox 97 12/07/18 07:00 Intake & Output 12/06/18 12/07/18 12/07/18 18:59 06:59 18:59 Intake Total 300 300 600 Output Total 1000 Balance 300 -700 600 Intake: Intake, IV Titration 100 Amount Cefepime 2 gm In Sodium 100 Chloride 0.9% 100 ml @ 200 mls/hr IVPB Q24HR [facility] Rx#:[id number] Oral 200 300 600 Output: Urine 1000 Other: Voiding Method Indwelling Catheter Indwelling Catheter - Constitutional Constitutional Comment(s): Uncooperative with care General appearance: Present: no acute distress, obese - Respiratory Details: Lungs sounds diminished bilaterally. Respirations even, nonlabored. Currently on 2 L nasal cannula with oxygen saturation 99%. Only able to achieve 750 mL on his incentive spirometry. - Cardiovascular Details: S1, S2 present. Slow but regular rate and rhythm, sinus bradycardia with heart rate in the high 50s on telemetry. Sternum stable. Palpable peripheral pulses bilaterally. Trace edema to bilateral lower extremities. Zi wraps present to bilateral lower extremities. Bilateral lower extremity SCDs present. - Gastrointestinal Gastrointestinal Comment(s): Abdomen soft, nontender, nondistended. Active bowel sounds 4 quadrants. Tolerating diet minimally. No bowel movement since admission. - Genitourinary Genitourinary Comment(s): Burrell present draining clear yellow urine, output 1000 mL overnight. - Integumentary Integumentary Comment(s): Skin is warm and dry. Anterior chest incision well healed. Scattered blistered areas to his bilateral lower extremities with scabbing, healing well. Lateral malleolus blister healing, no drainage this morning. - Neurologic Neurologic: Present: CNII-XII intact - Musculoskeletal Musculoskeletal: Present: generalized weakness, strength equal bilaterally - Psychiatric Psychiatric: Present: A&O x's 3 - Allied health notes Allied health notes reviewed: nursing - Labs CBC & Chem 7: 12/07/18 07:11 12/07/18 07:11 Labs: Abnormal Lab Results - Last 24 Hours (Table) 12/06/18 12/06/18 12/06/18 Range/Units 12:01 16:40 20:47 WBC (3.8-10.6) k/uL RBC (4.30-5.90) m/uL Hgb (13.0-17.5) gm/dL Hct (39.0-53.0) % RDW (11.5-15.5) % Sodium (137-145) mmol/L Chloride (98-107) mmol/L Carbon Dioxide (22-30) mmol/L BUN (9-20) mg/dL Glucose (74-99) mg/dL POC Glucose (mg/dL) 201 H 207 H 235 H (75-99) mg/dL 12/07/18 12/07/18 12/07/18 Range/Units 06:54 07:11 07:11 WBC 15.9 H (3.8-10.6) k/uL RBC 2.45 L (4.30-5.90) m/uL Hgb 7.4 L (13.0-17.5) gm/dL Hct 23.8 L (39.0-53.0) % RDW 18.6 H (11.5-15.5) % Sodium 135 L (137-145) mmol/L Chloride 97 L (98-107) mmol/L Carbon Dioxide 34 H (22-30) mmol/L BUN 84 H (9-20) mg/dL Glucose 165 H (74-99) mg/dL POC Glucose (mg/dL) 192 H (75-99) mg/dL Assessment and Plan Assessment: 1. Acute lower extremity cellulitis, fever, leukocytosis, wound culture positive for pseudomonas aeruginosa and Enterobacter cloacae 2. History of severe eccentric mitral valve regurgitation, severely calcified mitral annulus, torn chordae to the P1 posterior leaflet, status post complex mitral valve repair on 10/31/2018 3. History of coronary artery disease with recent drug-eluting stent placed to his left anterior descending coronary artery on 09/24/2018 4. Chronic diastolic heart failure 5. Hypertension 6. Hyperlipidemia 7. Chronic kidney disease stage III with a baseline creatinine of 1.5-2.0 8. Diabetes mellitus type 2, with peripheral neuropathy 9. Anemia of chronic kidney disease 10. Moderate chronic obstructive pulmonary disease 11. Obstructive sleep apnea without home CPAP use 12. Pulmonary hypertension 13. Obesity 14. Osteoarthritis 15. History of tobacco dependence, previous pipe 16. History of paroxysmal atrial fibrillation, remains in sinus rhythm 17. History of transaminitis, resolved Plan: 1. Continue to optimize with medical therapy with aspirin, Plavix, and beta sun. Continue amiodarone per cardiology. Statin restarted yesterday 2. Avoid nephrotoxic agents. 3. Diuresis management per nephrology. Currently on Lasix 40 mg IV daily. 4. Increase activity as tolerated. PT/OT following. Patient needs maximum encouragement, need to increase activity discussed again with patient, he continues to state his leg pain isn't controlled enough to stand although he falls asleep easily during conversation. 5. Antibiotic management per infectious disease. Wound care recommendations per infectious disease. 6. Wean O2 as tolerated. Encourage use of his incentive spirometry every hour while awake. 7. Continue to reinforce open heart discharge instructions. Shower daily, no lifting pushing and pulling anything greater than 10 pounds or jug of milk for 12 weeks. Continue to encourage use of his heart hugger. 8. Pain control per primary care services. 9. GI, DVT prophylaxis. 10. When the patient is not ambulating or sitting up for meals he is to have his legs elevated higher than the level of his heart 6-8 inches. 11. Medical management per primary care service. May discharge back to [facility] from cardiothoracic standpoint when OK with other services, may need train starter care if patient continues to refuse to participate with PT/OT Time with Patient: Greater than 30
[2018-12-07] MEDS: METOPROLOL TARTRATE 50 MG TAB PO SCH ×2 (10:48→22:07)
[2018-12-07] MEDS: AMIODARONE 200 MG TAB PO SCH (10:48)
[2018-12-07] MEDS: FUROSEMIDE 10 MG/ML 4 ML VIAL IV SCH (10:49)
[2018-12-07 11:59] LABS: Glucose,Whole Blood 202 mg/dL (75-99)
[2018-12-07] MEDS: ACETAMINOPHEN TAB 325 MG TAB PO PRN (15:44)
[2018-12-07] MEDS: DARBEPOETIN ALFA 40 MCG/0.4 ML SYRINGE SQ SCH (15:49)
--- NOTE | 2018-12-07 16:07 | P.PN ---
Subjective Progress Note Date: 12/07/18 Principal diagnosis: This is a 73-year-old male with a past medical history of multiple medical problems with recent cardiac surgery including mitral valve replacement, stent placement, myocardial infarction, pulmonary hypertension and was recently admitted for an increase in weakness with swelling and blistering of the lower legs with fever and is being closely monitored. Patient is sitting up in the chair with legs elevated sleeping but easily arousable. Family is at the bedside. Bilateral lower extremities are wrapped with Zi wraps and elevated at this time. Extremely guarded prognosis 12/03/2018 Patient is sitting up in the chair sleeping but arousable. Patient states that he is very lethargic and continues to nod off while talking. Patient is currently in the ICU and is being closely monitored. Patient lower extremities are down and not currently being elevated. Patient states that he does when he is lying in bed. Zi wraps dry and intact with obvious swelling of the bilateral lower extremities. Heart hugger is in place. patient denies any chest pain or palpitations but does state that he is short of breath with just about any movement to or from the chair. Patient has poor appetite but denies any nausea or vomiting. Patient has a low grade temp this morning of 99.1F and is being closely monitored. ID is following as well as many other consultants. Prognosis is guarded. 12/04/2018 Patient is sitting up in the chair with bilateral legs elevated in no acute distress. Patient states that he is having worsening discomfort in the bilateral lower extremities especially his feet. Discussed with the patient in detail about keeping the legs elevated to help minimize the swelling and discomfort. Zi wraps along with Silvadene cream were being applied by nursing staff at the time of the visit. Multiple ulcerations lower extremities bilaterally are present with slight improvement to the ulcerations of the shins with some scabbing noted. Infectious disease is following closely for antibiotic coverage as well as wound care therapy. Patient states he is not eating much but has been attempting to eat more to build up his strength. Patient states that he still having some shortness of breath with exertion. Discussed with the patient at length about the importance of using incentive spirometer at the bedside at least 10 times per hour while awake. Patient denies any chest pain or palpitations at this time. Patient states that he sti ll very fatigued and feels exhausted. Multiple medical consultations are following closely. Guarded prognosis. 12/05/2018 Patient is sitting up in the chair in no acute distress with bilateral legs elevated with daughter at the bedside. Patient denies any shortness of breath, chest pain, or palpitations at this time. Patient denies any nausea or vomiting and is tolerating foods. Patient is a very picky eater and family at the bedside is bringing in protein shakes along with yogurts and other foods to encourage his increase in oral intake. Patient continues to have bilateral lower extremity pain along with bilateral foot pain that he states is not al lowing him to be able to get up and walk and is frustrated. A change in pain medications has been addressed. Discussed with the patient about avoiding sleepiness due to pain medication usage but attempting to find the right dose to help with pain control. Discussed with the patient at length about using the incentive spirometer at least 10 times per hour while awake especially due to the inability to get up and walk at this time. Spoke to the daughter about encouraging him to stay awake during the day by opening the window shades and staying out of bed. Patient has been afebrile. Patient is awaiting a transfer out of the ICU when a bed becomes available. Guarded prognosis. 12/06/2018 Patient is sitting up in the chair in no acute distress and continues to state that he is having a lot of pain and discomfort in his bilateral lower extremities especially his feet. Patient was moved out of the ICU and is being monitored closely. Per nursing staff the patient has been sitting in his chair all night and most of the day and nods off and on all day out of sleep. Patient was refusing to work with PT/OT due to the discomfort of lower extremities. Discussed with the patient at length today about getting up and working with PT OT as this is a very important part of his treatment plan and overall prognosis. Patient does have pain medications ordered and is taking. Spoke with nursing staff today about cautiously giving narcotics as he continues to be quite lethargic all day. No family is at the bedside today. Discussed with the patient at length today about continuing to use his incentive spirometer and patient stated that he is using the incentive spirometer when he can reach it as it was on the other side of the table this morning. Maximum was 750 today on the incentive spirometer. Patient continues to need intense encouragement to do much of anything. Guarded prognosis. 12/07/2018 Patient is lying in bed with bilateral legs elevated up on pillows, SCDs present along with Zi wraps to minimize swelling. Patient continues to state that he has a lot of pain and discomfort in his legs and feet. Patient remains lethargic but easily arousable. Per nursing staff and the patient, patient was up today with physical therapy from the chair to the bed. Continued encouragement of physical therapy as well as incentive spirometer use. Chest x- ray yesterday shows improved pulmonary venous congestion with persistent cardiomegaly with small left-sided pleural effusion with probable underlying atelectasis. Spoke with the nursing staff about continuing to encourage incentive spirometer use and getting up with physical therapy. Multiple medical consultations are following. Guarded prognosis. Objective - Vital Signs Vital signs: Vital Signs Temp 98.0 F 12/07/18 14:37 Pulse 58 L 12/07/18 14:37 Resp 16 12/07/18 14:37 BP 155/68 12/07/18 14:37 Pulse Ox 98 12/07/18 14:37 Intake & Output 12/06/18 12/07/18 12/07/18 18:59 06:59 18:59 Intake Total 300 300 837 Output Total 1000 1600 Balance 300 700 -763 Intake: Intake, IV Titration 100 Amount Cefepime 2 gm In Sodium 100 Chloride 0.9% 100 ml @ 200 mls/hr IVPB Q24HR [facility] Rx#:[id number] Oral 200 300 837 Output: Urine 1000 1600 Other: Voiding Method Indwelling Catheter Indwelling Catheter Indwelling Catheter - Exam Gen: This is a 73-year-old male sitting up in the chair in no acute distress. Vital signs are stable. Temp is 98.0 F oral, pulse is 58, respirations are 16, blood pressure is 155/68, oxygen saturation is 98 % on 2 L nasal cannula HEENT: Head is atraumatic, normocephalic. Pupils equal, round. Sclerae is anicteric. NECK: Supple. No JVD. No lymphadenopathy. No thyromegaly. LUNGS: Diminished breath sounds at the bases. No wheezes or rhonchi. No intercostal retractions. HEART: S1 and S2 are muffled ABDOMEN: Soft. Obese. Bowel sounds are present. No masses. No tenderness. EXTREMITIES: Mild pedal edema. Slightly improved. Bilateral lower extremity swelling. Zi wrap is intact. No calf tenderness. Bilateral lower extremity tenderness upon palpation. NEUROLOGICAL: Patient is lethargic but arousable, alert and oriented x3. Cranial nerves 2 through 12 are grossly intact. SKIN: Blistering and ulcers noted to bilateral lower extremities and bilateral feet with redness and swelling noted of the surrounding tissue, swelling has improved slightly - Labs CBC & Chem 7: 12/07/18 07:11 12/07/18 07:11 Labs: Abnormal Lab Results - Last 24 Hours (Table) 12/06/18 12/06/18 12/07/18 Range/Units 16:40 20:47 06:54 WBC (3.8-10.6) k/uL RBC (4.30-5.90) m/uL Hgb (13.0-17.5) gm/dL Hct (39.0-53.0) % RDW (11.5-15.5) % Sodium (137-145) mmol/L Chloride (98-107) mmol/L Carbon Dioxide (22-30) mmol/L BUN (9-20) mg/dL Glucose (74-99) mg/dL POC Glucose (mg/dL) 207 H 235 H 192 H (75-99) mg/dL 12/07/18 12/07/18 12/07/18 Range/Units 07:11 07:11 11:47 WBC 15.9 H (3.8-10.6) k/uL RBC 2.45 L (4.30-5.90) m/uL Hgb 7.4 L (13.0-17.5) gm/dL Hct 23.8 L (39.0-53.0) % RDW 18.6 H (11.5-15.5) % Sodium 135 L (137-145) mmol/L Chloride 97 L (98-107) mmol/L Carbon Dioxide 34 H (22-30) mmol/L BUN 84 H (9-20) mg/dL Glucose 165 H (74-99) mg/dL POC Glucose (mg/dL) 202 H (75-99) mg/dL Assessment and Plan Assessment: Acute bilateral leg cellulitis with sepsis, present on admission pseudomonas aeruginosa as well as gram-negative bacilli; infectious disease if following. Patient is currently on IV cefepime Diffuse generalized weakness with possible myopathy, present on admission hypotension possible secondary to hypovolemia Increased WBC Anemia of chronic disease Hyponatremia Change in mental status, acute metabolic encephalopathy, multifactorial Increased creatinine with chronic kidney disease stage III; current creatinine is 1.13 Elevated AST, ALT, possibly hepatitis, improved Troponin 0.043, indeterminate Congestive heart failure with acute on chronic diastolic dysfunction, recent mitral valve replacement for mitral regurgitation History of coronary artery disease/stent History pulmonary hypertension Hyperlipidemia History of gastroesophageal reflux disease Diabetes mellitus type 2 with diabetic nephropathy Gait dysfunction History of obstructive sleep apnea history of degenerative joint disease Full code Recommendations and discussion: Recommend to continue current medications, management, and symptomatic treatment. Continue to encourage the patient to use the incentive spirometer at least 10 times every hour while awake. Discussed with the patient about PT/OT and encouraged patient to continue to work with them for strength and mobility. Will continue to monitor vital signs and labs closely. Once stabilized patient will be returning to [facility]. Due to multiple complex medical issues overall prognosis is extremely guarded. Further recommendations to follow.
[2018-12-07 17:03] LABS: Glucose,Whole Blood 129 mg/dL (75-99)
[2018-12-07] MEDS: FERROUS SULFATE 325 MG TAB PO SCH (17:42)
[2018-12-07] MEDS: ASPIRIN 81 MG PO SCH (17:42)
[2018-12-07] MEDS: MULTIVITAMINS, THERA 1 EACH TAB PO SCH (17:42)
[2018-12-07] MEDS: LIPASE 5,000/PROTEASE 17,000/AMYLASE 24,000 PO SCH (17:42)
[2018-12-07] MEDS: CHOLECALCIFEROL 1,000 UNIT TAB PO SCH (17:46)
--- NOTE | 2018-12-07 18:56 | PN ---
PROGRESS NOTE Patient is seen for followup for acute kidney injury and chronic kidney disease. His renal function continues to improve. Patient is maintained on IV Lasix. He was severely volume-overloaded and is being treated for bilateral lower extremity cellulitis. Lasix is currently at 40 mg IV daily. On examination today, blood pressure was 135/78 this morning. Heart rate of 61 per minute. Patient is afebrile. EXAMINATION OF THE HEART: S1 and S2. EXAMINATION OF LUNGS: Bilateral breath sounds are heard. Decreased breath sounds at bases. ABDOMEN: Soft, obese, non-tender. Examination of lower extremities shows bilateral extremities to be wrapped. Apparently the edema has significantly improved and his ulcers on his legs are also healing. CELL SUPPORT OPERATOR exam is grossly intact. Labs show sodium 135, potassium 4.8, BUN 84, serum creatinine 1.13. ASSESSMENT: 1. Acute kidney injury, cardiorenal and secondary to cellulitis, currently improved. Patient has good urine output. Creatinine is down to 1.13. Continue with the current dose of Lasix until patient is discharged. Then he can be switched over to 40 mg b.i.d. for few days, then 40 mg daily following that. 2. Bilateral lower extremity cellulitis, maintained on antibiotics, currently improving. 3. Status post mitral valve repair. 4. Coronary artery disease, status post coronary stenting. 5. Chronic kidney disease, stage III, with previous creatinine around 1.5. However, his creatinine has improved further down to 1.13 now. PLAN: Continue with the IV Lasix until discharge. MMODL / IJN: [id number] /
[2018-12-07 21:22] LABS: Glucose,Whole Blood 221 mg/dL (75-99)
[2018-12-07] MEDS: INSULIN DETEMIR (LEVEMIR) 100 UNIT/ML SYR SQ SCH (22:06)
[2018-12-07] MEDS: ATORVASTATIN 40 MG TAB PO SCH (22:07)
[2018-12-07] MEDS: SENNOSIDES-DOCUSATE SODIUM 1 EACH TAB PO SCH (22:07)
[2018-12-07] MEDS: ESCITALOPRAM 10 MG TAB PO SCH (22:08)
--- NOTE | 2018-12-07 22:43 | P.PN ---
Subjective Progress Note Date: 12/07/18 73-year-old male presents to Hospital from the extended care facility where he has been recovering status post his extensive mitral valve repair for his mitral stenosis. There was also repair of the ruptured chordae tendon 9. Prior to the finding of severe mitral stenosis he did have coronary disease and a percutaneous intervention occurred with stenting of a drug-eluting type. Afterward the open heart procedure occurred. Due to his weakness has been recovering at the extended care facility when it was noticed that he had the rapid worsening of the lower extremities with the increasing amount of edema the tissue started to blister he developed a fever and was transferred to our facil ity. Due to the lower actually wounds and concerns to infection especially in the face of his recent surgical interventions. Consultation was requested. Patient is feeling slightly better he has identities less short of breath the lower extremities are feeling somewhat better they are less uncomfortable 12/03/2018 the patient is feeling somewhat better. Cultures of the leg cultures have been finalized and Pseudomonas and Enterobacter isolated. Patient will likely be going to rehabilitation and does have IV access. December 04 2018 patient still very weak being evaluated for rehab, patient is short of breath and does not feel well. 12/07/2018 feeling better less SOB legs improved with wraps. Objective - Vital Signs Vital signs: Vital Signs Temp 98.7 F 12/07/18 20:09 Pulse 64 12/07/18 20:09 Resp 20 12/07/18 20:09 BP 150/73 12/07/18 20:09 Pulse Ox 96 12/07/18 20:09 Intake & Output 12/07/18 12/07/18 12/08/18 06:59 18:59 06:59 Intake Total 300 1277 Output Total 1000 1600 Balance -700 -323 Weight 104.5 kg Intake: Oral 300 1277 Output: Urine 1000 1600 Other: Voiding Method Indwelling Catheter Indwelling Catheter - Exam HEENT: Anicteric conjunctiva are pink and moist nasal mucosa grossly intact without significant lesions, there is no thrush. Poor dentition Neck: The neck is supple without significant lymphadenopathy or thyromegaly. Lungs: Symmetrical bilateral air entry basilar crackles are heard. Extremities no bronchial sounds Heart: Irregular audible S1 and S2 2/6 systolic murmur left sternal border PMI nondisplaced Abdomen: Positive bowel sounds soft and nontender without palpable masses or organomegaly. There was no guarding or rebound. Extremities: The upper extremities have excellent pulses they are symmetric, no significant petechiae or telangiectasia. No splinter hemorrhages were noted. The lower extremities the improved bilateral lower extremity edema is more evidence of blistering to the left leg into the right. There is evidence of the improved erythema the left leg is also mildly tender there is no purulent drainage at this time. Neuro: Awake alert oriented to person place and time. There are no acute new gross focal sensory motor deficits. - Labs CBC & Chem 7: 12/07/18 07:11 12/07/18 07:11 Labs: Abnormal Lab Results - Last 24 Hours (Table) 12/07/18 12/07/18 12/07/18 Range/Units 06:54 07:11 07:11 WBC 15.9 H (3.8-10.6) k/uL RBC 2.45 L (4.30-5.90) m/uL Hgb 7.4 L (13.0-17.5) gm/dL Hct 23.8 L (39.0-53.0) % RDW 18.6 H (11.5-15.5) % Sodium 135 L (137-145) mmol/L Chloride 97 L (98-107) mmol/L Carbon Dioxide 34 H (22-30) mmol/L BUN 84 H (9-20) mg/dL Glucose 165 H (74-99) mg/dL POC Glucose (mg/dL) 192 H (75-99) mg/dL 12/07/18 12/07/18 12/07/18 Range/Units 11:47 16:50 21:11 WBC (3.8-10.6) k/uL RBC (4.30-5.90) m/uL Hgb (13.0-17.5) gm/dL Hct (39.0-53.0) % RDW (11.5-15.5) % Sodium (137-145) mmol/L Chloride (98-107) mmol/L Carbon Dioxide (22-30) mmol/L BUN (9-20) mg/dL Glucose (74-99) mg/dL POC Glucose (mg/dL) 202 H 129 H 221 H (75-99) mg/dL Laboratory Results WBC 15.9 k/uL (3.8-10.6) H 12/07/18 07:11 RBC 2.45 m/uL (4.30-5.90) L 12/07/18 07:11 Hgb 7.4 gm/dL (13.0-17.5) L 12/07/18 07:11 Hct 23.8 % (39.0-53.0) L 12/07/18 07:11 MCV 97.2 fL (80.0-100.0) 12/07/18 07:11 MCH 30.1 pg (25.0-35.0) 12/07/18 07:11 MCHC 31.0 g/dL (31.0-37.0) 12/07/18 07:11 RDW 18.6 % (11.5-15.5) H 12/07/18 07:11 Plt Count 368 k/uL (150-450) 12/07/18 07:11 Neutrophils % 82 % 12/05/18 04:40 Lymphocytes % 6 % 12/05/18 04:40 Monocytes % 5 % 12/05/18 04:40 Eosinophils % 3 % 12/05/18 04:40 Basophils % 2 % 12/05/18 04:40 Neutrophils # 8.2 k/uL (1.3-7.7) H 12/05/18 04:40 Lymphocytes # 0.6 k/uL (1.0-4.8) L 12/05/18 04:40 Monocytes # 0.5 k/uL (0-1.0) 12/05/18 04:40 Eosinophils # 0.3 k/uL (0-0.7) 12/05/18 04:40 Basophils # 0.2 k/uL (0-0.2) 12/05/18 04:40 Hypochromasia Marked 12/07/18 07:11 Anisocytosis Slight 12/07/18 07:11 Macrocytosis Slight 12/07/18 07:11 PT 12.2 sec (9.0-12.0) H 11/29/18 13:55 INR 1.2 (<1.2) H 11/29/18 13:55 APTT 26.7 sec (22.0-30.0) 11/29/18 13:55 Sodium 135 mmol/L (137-145) L 12/07/18 07:11 Potassium 4.8 mmol/L (3.5-5.1) 12/07/18 07:11 Chloride 97 mmol/L (98-107) L 12/07/18 07:11 Carbon Dioxide 34 mmol/L (22-30) H 12/07/18 07:11 Anion Gap 4 mmol/L 12/07/18 07:11 BUN 84 mg/dL (9-20) H 12/07/18 07:11 Creatinine 1.13 mg/dL (0.66-1.25) 12/07/18 07:11 Est GFR (CKD-EPI)AfAm 74 (>60 ml/min/1.73 sqM) 12/07/18 07:11 Est GFR (CKD-EPI)NonAf 64 (>60 ml/min/1.73 sqM) 12/07/18 07:11 Glucose 165 mg/dL (74-99) H 12/07/18 07:11 POC Glucose (mg/dL) 221 mg/dL (75-99) H 12/07/18 21:11 POC Glu Draw Frame Tender ID Osman, Kacy 12/07/18 21:11 Lactic Ac Sepsis Rflx Y 11/29/18 14:30 Plasma Lactic Acid Guy 1.7 mmol/L (0.7-2.0) 11/30/18 14:15 Calcium 8.8 mg/dL (8.4-10.2) 12/07/18 07:11 Magnesium 2.4 mg/dL (1.6-2.3) H 12/06/18 07:32 Iron 18 ug/dL (65-175) L 11/29/18 13:55 TIBC 298 ug/dL (228-460) 11/29/18 13:55 Iron Saturation 6.04 (15.00-50.00) L 11/29/18 13:55 Ferritin 1042.1 ng/mL (22.0-322.0) H 11/29/18 13:55 Total Bilirubin 1.0 mg/dL (0.2-1.3) 12/06/18 07:32 AST 43 U/L (17-59) 12/06/18 07:32 ALT 49 U/L (21-72) 12/06/18 07:32 Alkaline Phosphatase 183 U/L (38-126) H 12/06/18 07:32 Creatine Kinase 51 U/L (55-170) L 11/29/18 13:55 Troponin I 0.029 ng/mL (0.000-0.034) 11/30/18 03:01 C-Reactive Protein 327.4 mg/L (<10.0) H 11/29/18 13:55 NT-Pro-B Natriuret Pep 61021 pg/mL 11/29/18 13:55 Total Protein 5.9 g/dL (6.3-8.2) L 12/06/18 07:32 Albumin 2.9 g/dL (3.5-5.0) L 12/06/18 07:32 TSH 3.960 mIU/L (0.465-4.680) 11/29/18 13:55 Urine Color Yellow 11/29/18 14:05 Urine Appearance Clear (Clear) 11/29/18 14:05 Urine pH 5.0 (5.0-8.0) 11/29/18 14:05 Ur Specific Counce 1.018 (1.001-1.035) 11/29/18 14:05 Urine Protein Trace (Negative) H 11/29/18 14:05 Urine Glucose (UA) Negative (Negative) 11/29/18 14:05 Urine Ketones Negative (Negative) 11/29/18 14:05 Urine Blood Negative (Negative) 11/29/18 14:05 Urine Nitrite Negative (Negative) 11/29/18 14:05 Urine Bilirubin Negative (Negative) 11/29/18 14:05 Urine Urobilinogen <2.0 mg/dL (<2.0) 11/29/18 14:05 Ur Leukocyte Esterase Negative (Negative) 11/29/18 14:05 Microbiology 11/29/18 13:55 Blood Blood Culture - Final No Growth after 144 hours 11/29/18 22:30 Ankle - Left Gram Stain - Final 11/29/18 22:30 Ankle - Left Wound Culture - Final Pseudomonas aeruginosa Enterobacter cloacae 11/29/18 22:30 Urine,Clean Catch Urine Culture - Final Assessment and Plan (1) Fever Current Visit: Yes Status: Acute Code(s): R50.9 - FEVER, UNSPECIFIED SNOMED Code(s): 219584400 (2) MIGUEL ANGEL (acute kidney injury) Current Visit: No Status: Acute Code(s): N17.9 - ACUTE KIDNEY FAILURE, UNSPECIFIED SNOMED Code(s): 43954443 (3) CAD (coronary artery disease) Current Visit: Yes Status: Acute Code(s): I25.10 - ATHSCL HEART DISEASE OF [place] CORONARY ARTERY W/O ANG PCTRS SNOMED Code(s): 27806953 (4) Cellulitis of both lower extremities Narrative/Plan: 73-year-old male presents to Hospital from the [facility] care facility where he is receiving care after his open heart procedure for repair of his severe mitral valve stenosis which was done by the mitral valve repair as well as cordite and any repair. In September he had undergone his percutaneous intervention with stenting in drug-eluting stents. The patient had the significant increasing amount of edema to the lower extremity such that he developed multiple blisters left greater than right. Silvadene and wraps are applied to help with the edema and help with the tissue. Antibiotic therapy with Zosyn and vancomycin has been initiated given his significant level of illness at the time of his presentation. Cultures are process and will de-escalate antibiotics as cultures become available. Elevation of the limbs well at rest is very important in conjunction with the current wraps her be applied. The temperature maximum was 100.2 now the fever has resolved. His acute renal failure seems to be improving and his leukocytosis will be monitored. 12/03/2018 patient is feeling better has eaten his meal today without great difficulties. His appetite somewhat poor. Wound culture is finalized pseudomonas as well as Enterobacter although they are susceptible to fluoroquinolones the patient is on amiodarone which does not allow the utilization of quinolone therapy. We'll be able to streamline antibiotic therapy to cefepime 2 gm IVPB q12 hours when transferring to [facility] 12/04/2018 patient week and is really quite miserable. Physical therapy is working with him to try to improve his status. We transferred to rehab. He can receive his intravenous antibiotic therapy of cefepime there. Continue with the local wraps and elevation to the lower extremities which has allowed some impr ovement of the edema blistering is starting to improve. 12/07/2108 some improvement noted doing well with cefepime will continue for a few more days Current Visit: Yes Status: Acute Code(s): L03.115 - CELLULITIS OF RIGHT LOWER LIMB; L03.116 - CELLULITIS OF LEFT LOWER LIMB SNOMED Code(s): 244392692
[2018-12-08 07:21] LABS: Glucose,Whole Blood 199 mg/dL (75-99)
[2018-12-08] MEDS: INSULIN ASPART (NovoLOG) 100 UNIT/ML VIAL SQ SCH ×4 (08:39→21:13)
[2018-12-08] MEDS: FUROSEMIDE 10 MG/ML 4 ML VIAL IV SCH ×2 (08:45→08:46)
[2018-12-08] MEDS: HEPARIN SODIUM,PORCINE 5,000 UNIT/ML 1 ML VIAL SQ SCH ×2 (08:50→17:42)
[2018-12-08] MEDS: GABAPENTIN 100 MG CAP PO SCH ×2 (08:51→21:13)
[2018-12-08] MEDS: AMIODARONE 200 MG TAB PO SCH (08:51)
[2018-12-08] MEDS: CEFEPIME 2 GM in SODIUM CHLORIDE 0.9% 100 ML IVPB SCH (08:51)
[2018-12-08] MEDS: METOPROLOL TARTRATE 50 MG TAB PO SCH ×2 (08:51→21:13)
[2018-12-08] MEDS: PANTOPRAZOLE 40 MG TABLET PO SCH (08:51)
[2018-12-08] MEDS: CLOPIDOGREL 75 MG TAB PO SCH (08:51)
--- NOTE | 2018-12-08 09:11 | P.PN ---
Subjective Progress Note Date: 12/08/18 Principal diagnosis: Cellulitis of both lower extremities with positive wound culture showing Pseudomonas aeruginosa and Enterobacter cloacae, fever, acute kidney injury. Previous medical history of severe concentric mitral valve regurgitation with severely calcified mitral annulus status post complex mitral valve repair on 10/31/[address] Lozada, coronary artery disease with recent drug- eluting stent placed to the left anterior descending coronary artery in September 2018, chronic diastolic heart failure, hypertension, hyperlipidemia, type 2 diabetes mellitus with peripheral neuropathy and a preoperative hemoglobin A1c of 7%, chronic kidney disease with a baseline creatinine around 2, moderate chronic obstructive pulmonary disease with FEV1 of 54% of predicted value, obstructive sleep apnea without home CPAP use, pulmonary hypertension, obesity, previous tobacco dependence and postoperative transaminitis and paroxysmal atrial fibrillation. The patient is currently laying in bed in no acute distress. Continues to complain of pain to his bilateral lower extremities as well as shortness of breath with activity, he is refusing to walk/stand, participate with physical or occupational therapy, although he did allow therapy to put him back in bed yesterday, required 4 people as patient didn't assist at all. He was sleeping upon assessment, continued to complain of pain to his lower extremities throughout dressing change, was slightly confused thinking it was nighttime, and fell back asleep once dressing change was completed. Trace bilateral lower ext remity edema still present, zi wraps working well for compression. Remains in normal sinus rhythm, hemodynamically stable, excellent urine output with IV Lasix. Remains on cefepime per infectious disease. Objective - Vital Signs Vital signs: Vital Signs Temp 99.5 F 12/08/18 07:00 Pulse 70 12/08/18 07:00 Resp 12 12/08/18 07:00 BP 184/78 12/08/18 07:00 Pulse Ox 95 12/08/18 07:00 Intake & Output 12/07/18 12/08/18 12/08/18 18:59 06:59 18:59 Intake Total 1277 Output Total 1600 1200 Balance -323 -1200 Weight 104.5 kg 103.5 kg Intake: Oral 1277 Output: Urine 1600 1200 Other: Voiding Method Indwelling Catheter Indwelling Catheter - Constitutional General appearance: Present: no acute distress, obese - Respiratory Details: Lungs sounds diminished bilaterally. Respirations even, nonlabored. Currently on 2 L nasal cannula with oxygen saturation 96%. Only able to achieve 500-750 mL on his incentive spirometry. - Cardiovascular Details: S1, S2 present. Slow but regular rate and rhythm, sinus bradycardia on telemetry. Sternum stable. Palpable peripheral pulses bilaterally. Trace edema to bilateral lower extremities. Zi wraps present to bilateral lower extremities. Bilateral lower extremity SCDs present. - Gastrointestinal Gastrointestinal Comment(s): Abdomen soft, nontender, nondistended. Active bowel sounds 4 quadrants. Tolerating diet minimally. Positive bowel movement this morning. - Genitourinary Genitourinary Comment(s): Burrell present draining clear yellow urine, output 1200 mL overnight. - Integumentary Integumentary Comment(s): Skin is warm and dry. Anterior chest incision well healed. Scattered blistered areas to his bilateral lower extremities with scabbing, healing well. Lateral malleolus blister healing, no drainage this morning. - Neurologic Neurologic: Present: CNII-XII intact - Musculoskeletal Musculoskeletal: Present: generalized weakness, strength equal bilaterally - Psychiatric Psychiatric Comment(s): Sleepy but does arouse and carry on a conversation, was confused as to time of day this morning. Appears somewhat depressed. - Allied health notes Allied health notes reviewed: nursing - Labs CBC & Chem 7: 12/07/18 07:11 12/07/18 07:11 Labs: Abnormal Lab Results - Last 24 Hours (Table) 12/07/18 12/07/18 12/07/18 Range/Units 11:47 16:50 21:11 POC Glucose (mg/dL) 202 H 129 H 221 H (75-99) mg/dL 12/08/18 Range/Units 07:09 POC Glucose (mg/dL) 199 H (75-99) mg/dL Assessment and Plan Assessment: 1. Acute lower extremity cellulitis, fever, leukocytosis, wound culture positive for pseudomonas aeruginosa and Enterobacter cloacae 2. History of severe eccentric mitral valve regurgitation, severely calcified mitral annulus, torn chordae to the P1 posterior leaflet, status post complex mitral valve repair on 10/31/2018 3. History of coronary artery disease with recent drug-eluting stent placed to his left anterior descending coronary artery on 09/24/2018 4. Chronic diastolic heart failure 5. Hypertension 6. Hyperlipidemia 7. Chronic kidney disease stage III with a baseline creatinine of 1.5-2.0 8. Diabetes mellitus type 2, with peripheral neuropathy 9. Anemia of chronic kidney disease 10. Moderate chronic obstructive pulmonary disease 11. Obstructive sleep apnea without home CPAP use 12. Pulmonary hypertension 13. Obesity 14. Osteoarthritis 15. History of tobacco dependence, previous pipe 16. History of paroxysmal atrial fibrillation, remains in sinus rhythm 17. History of transaminitis, resolved Plan: 1. Continue to optimize with medical therapy with aspirin, Plavix, statin, and beta sun. Continue amiodarone per cardiology. 2. Avoid nephrotoxic agents. 3. Diuresis management per nephrology. Currently on Lasix 40 mg IV daily. Per nephrology, patient should be discharged on oral lasix twice daily for a few days then decreased to daily. 4. Increase activity as tolerated. PT/OT following. Patient needs maximum encouragement, need to increase activity discussed again with patient, he continues to state his leg pain isn't controlled enough to stand although he falls asleep easily during conversation. 5. Antibiotic management per infectious disease. Wound care recommendations per infectious disease. 6. Wean O2 as tolerated. Encourage use of his incentive spirometry every hour while awake. 7. Continue to reinforce open heart discharge instructions. Shower daily, no lifting pushing and pulling anything greater than 10 pounds or jug of milk for 12 weeks. 8. Pain control per primary care services. 9. GI/DVT prophylaxis. 10. When the patient is not ambulating or sitting up for meals he is to have his legs elevated higher than the level of his heart 6-8 inches. 11. Medical management per primary care service. May discharge back to [facility] from cardiothoracic standpoint when OK with other services, may need skilled nursing care if patient continues to refuse to participate with PT/OT Time with Patient: Greater than 30
[2018-12-08 11:27] LABS: Glucose,Whole Blood 280 mg/dL (75-99)
[2018-12-08] MEDS ORDERED: hydrALAZINE HCL 20 MG/ML 1 ML VIAL IVP STA (11:30)
[2018-12-08] MEDS: ACETAMINOPHEN TAB 325 MG TAB PO PRN (11:44)
[2018-12-08 12:25] LABS: Anisocytosis Slight; Basophils # (A) 0.1 k/uL (0-0.2); Basophils % (A) 1 %; Eosinophils # (A) 0.1 k/uL (0-0.7); Eosinophils % (A) 1 %; HCT 24.8 % (39.0-53.0); HGB 7.6 gm/dL (13.0-17.5); Hypochromasia Marked; Lymphocytes # (A) 0.5 k/uL (1.0-4.8); Lymphocytes % (A) 2 %; MCH 30.1 pg (25.0-35.0); MCHC 30.7 g/dL (31.0-37.0); Macrocytosis Slight; Mean Platelet Volume 7.1; Monocytes # (A) 0.5 k/uL (0-1.0); Monocytes % (A) 2 %; Neutrophils # (A) 17.9 k/uL (1.3-7.7); Neutrophils % (A) 94 %; Platelet Count 394 k/uL (150-450); Poikilocytosis Slight; RBC 2.53 m/uL (4.30-5.90); RDW 18.8 % (11.5-15.5); WBC 19.1 k/uL (3.8-10.6)
[2018-12-08 12:31] LABS: Calcium 8.7 mg/dL (8.4-10.2); Potassium 4.6 mmol/L (3.5-5.1)
--- NOTE | 2018-12-08 16:34 | PN ---
PROGRESS NOTE DATE OF SERVICE: 12/08/2018. This 73-year-old gentleman who was admitted with acute bilateral leg cellulitis and sepsis also had Pseudomonas aeruginosa as well as Enterobacter cloacae grown from the culture. The patient is on IV antibiotics. Patient is complaining of severe pain. Also the patient is mildly confused. Patient is on multiple medications. Multiple consultants are following the patient closely. PAST MEDICAL HISTORY: Reviewed. REVIEW OF SYSTEMS: CARDIOVASCULAR SYSTEM: No angina. RESPIRATORY SYSTEM: As mentioned earlier. GI: As mentioned earlier. : No dysuria. NERVOUS SYSTEM: No numbness or weakness. CURRENT MEDICATIONS: Current medications are reviewed and include: 1. Tylenol 650 q.6 p.r.n. 2. Tylenol No. 3. 3. Ventolin 2.5 q.6. 4. Cordarone 200 mg p.o. daily. 5. Zenpep. 6. Aspirin 81 mg. 7. Lipitor 40 mg. 8. Cefepime 2 grams IV daily. 9. Vitamin D3. 10.Plavix 75 mg p.o. daily. 11.Lexapro 10 mg q.h.s. 12.Iron sulfate 325 mg p.o. daily. 13.Lasix 40 mg IV daily. 14.Neurontin 100 mg p.o. b.i.d. 15.Heparin 5000 subcu q.i.d. 16.Dilaudid p.r.n. 17.Levemir 10 units subcu q.h.s. 18.Milk of magnesia. 19.Lopressor 50 mg p.o. b.i.d. 20.Multivitamins. 21.Narcan. 22.Protonix. 23.Senokot-S. 24.Silvadene cream. PHYSICAL EXAM: Patient is alert and oriented x3. Pulse 73, blood pressure 185/76, respiration 15, temperature 100.1, pulse ox 96% on 2 L. HEENT: Conjunctivae normal. Oral mucosa moist. NECK is no jugular venous distention. No carotid bruit. No lymph node enlargement. CARDIOVASCULAR: S1, S2 muffled. RESPIRATORY: Breath sounds diminished in the bases. A few scattered rhonchi. No crackles. ABDOMEN: Soft, nontender. LEGS: Bilateral leg cellulitis and edema present improving. NERVOUS SYSTEM: Diffusely weak. LABS: WBC 19.1, hemoglobin 7.6, sodium 135. ASSESSMENT: 1. Acute bilateral leg cellulitis with sepsis present on admission with Pseudomonas aeruginosa as well as Enterobacter cloacae. 2. Change in mental status, acute metabolic encephalopathy multifactorial acute on chronic. 3. Diffuse generalized weakness, possible myopathy, present on admission. 4. Hypotension possibly secondary to hypovolemia, present on admission. 5. Increased WBC. 6. Anemia of chronic disease. 7. Hyponatremia. 8. Increased creatinine, chronic kidney disease stage 3. 9. Elevated AST, ALT possibly acute hepatitis, improved. 10.Troponin 0.043, indeterminate. 11.Congestive heart failure with chronic diastolic dysfunction. 12.Recent mitral replacement for mitral regurgitation. 13.History of coronary artery disease, stent. 14.History of pulmonary hypertension. 15.Hyperlipidemia. 16.History of gastroesophageal reflux disease. 17.Diabetes mellitus type 2 with diabetic nephropathy. 18.Gait dysfunction. 19.History of sleep apnea. 20.History of degenerative joint disease. 21.FULL CODE. RECOMMENDATIONS AND DISCUSSION: Recommend to continue current medications, continue with monitoring and symptomatic treatment. Continue with antibiotics. Otherwise, closely follow with Infectious Disease. Currently patient is on cefepime. Otherwise we will continue to monitor. Prognosis guarded. Further recommendations to follow. Blood cultures negative so far. Prognosis guarded. Will discuss with the family. MMODL / IJN: [id number] /
[2018-12-08 17:10] LABS: Glucose,Whole Blood 313 mg/dL (75-99)
[2018-12-08] MEDS: FERROUS SULFATE 325 MG TAB PO SCH (17:43)
[2018-12-08] MEDS: ASPIRIN 81 MG PO SCH (17:43)
[2018-12-08] MEDS: LIPASE 5,000/PROTEASE 17,000/AMYLASE 24,000 PO SCH (17:43)
[2018-12-08] MEDS: MULTIVITAMINS, THERA 1 EACH TAB PO SCH (17:43)
[2018-12-08] MEDS: CHOLECALCIFEROL 1,000 UNIT TAB PO SCH (17:43)
[2018-12-08] MEDS: Acetaminophen-Codeine 300-30mg TAB PO PRN (18:26)
[2018-12-08 21:02] LABS: Glucose,Whole Blood 303 mg/dL (75-99)
[2018-12-08] MEDS: ATORVASTATIN 40 MG TAB PO SCH (21:12)
[2018-12-08] MEDS: ESCITALOPRAM 10 MG TAB PO SCH (21:12)
[2018-12-08] MEDS: INSULIN DETEMIR (LEVEMIR) 100 UNIT/ML SYR SQ SCH (21:13)
[2018-12-08] MEDS: SENNOSIDES-DOCUSATE SODIUM 1 EACH TAB PO SCH (21:14)
[2018-12-09] MEDS: HEPARIN SODIUM,PORCINE 5,000 UNIT/ML 1 ML VIAL SQ SCH ×4 (01:07→23:00)
--- NOTE | 2018-12-09 06:59 | XR ---
EXAMINATION TYPE: XR chest 1V portable DATE OF EXAM: 12/09/2018 HISTORY: effusion. REFERENCE: Previous study dated 12/06/2018. FINDINGS: There has been a midline sternotomy. The heart is enlarged. There is blunting of the left CP angle. I could not exclude a small effusion. There is mild vascular congestion without ramon interstitial change. IMPRESSION: 1. CARDIOMEGALY. 2. PERSISTENT LEFT PLEURAL EFFUSION.
[2018-12-09 07:04] LABS: Glucose,Whole Blood 137 mg/dL (75-99)
[2018-12-09 07:51] LABS: Anisocytosis Slight; HCT 23.3 % (39.0-53.0); HGB 7.2 gm/dL (13.0-17.5); Hypochromasia Moderate; MCHC 31.1 g/dL (31.0-37.0); MCV 96.3 fL (80.0-100.0); Macrocytosis Slight; Mean Platelet Volume 7.3; Platelet Count 386 k/uL (150-450); Poikilocytosis Slight; RBC 2.42 m/uL (4.30-5.90); RDW 18.8 % (11.5-15.5); WBC 15.8 k/uL (3.8-10.6)
[2018-12-09] MEDS: ALBUTEROL NEBULIZED 2.5 MG/3 ML INHALATION PRN (08:06)
[2018-12-09 08:17] LABS: Calcium 8.9 mg/dL (8.4-10.2); Potassium 4.5 mmol/L (3.5-5.1)
[2018-12-09] MEDS: INSULIN ASPART (NovoLOG) 100 UNIT/ML VIAL SQ SCH ×4 (08:48→22:58)
[2018-12-09] MEDS: Acetaminophen-Codeine 300-30mg TAB PO PRN ×2 (09:00→18:34)
[2018-12-09] MEDS: CEFEPIME 2 GM in SODIUM CHLORIDE 0.9% 100 ML IVPB SCH (09:00)
[2018-12-09] MEDS: CLOPIDOGREL 75 MG TAB PO SCH (09:01)
[2018-12-09] MEDS: AMIODARONE 200 MG TAB PO SCH (09:01)
[2018-12-09] MEDS: METOPROLOL TARTRATE 50 MG TAB PO SCH ×2 (09:01→22:55)
[2018-12-09] MEDS: PANTOPRAZOLE 40 MG TABLET PO SCH (09:01)
[2018-12-09] MEDS: GABAPENTIN 100 MG CAP PO SCH ×2 (09:01→22:56)
--- NOTE | 2018-12-09 09:03 | P.PN ---
Subjective Progress Note Date: 12/09/18 Principal diagnosis: Cellulitis of both lower extremities with positive wound culture showing Pseudomonas aeruginosa and Enterobacter cloacae, fever, acute kidney injury. Previous medical history of severe concentric mitral valve regurgitation with severely calcified mitral annulus status post complex mitral valve repair on 10/31/[address] Lozada, coronary artery disease with recent drug- eluting stent placed to the left anterior descending coronary artery in September 2018, chronic diastolic heart failure, hypertension, hyperlipidemia, type 2 diabetes mellitus with peripheral neuropathy and a preoperative hemoglobin A1c of 7%, chronic kidney disease with a baseline creatinine around 2, moderate chronic obstructive pulmonary disease with FEV1 of 54% of predicted value, obstructive sleep apnea without home CPAP use, pulmonary hypertension, obesity, previous tobacco dependence and postoperative transaminitis and paroxysmal atrial fibrillation. The patient is currently laying in bed in no acute distress. More alert and oriented today, only had 2 doses of pain medication yesterday. Continues to complain of pain to his bilateral lower extremities as well as shortness of breath with activity, he is refusing to walk/stand, participate with physical or occupational therapy. No lower extremity edema present, zi wraps working well for compression, sores healing nicely. Remains in normal sinus rhythm, hemodynamically stable, excellent urine output with IV Lasix. Remains on cefepime per infectious disease. Objective - Vital Signs Vital signs: Vital Signs Temp 98.1 F 12/09/18 00:52 Pulse 100 12/09/18 08:14 Resp 16 12/09/18 00:52 BP 145/76 12/09/18 00:52 Pulse Ox 98 12/09/18 08:06 Intake & Output 12/08/18 12/09/18 12/09/18 18:59 06:59 18:59 Intake Total 480 Output Total 1300 1600 Balance -820 -1600 Intake: Oral 480 Output: Urine 1300 1600 Other: Voiding Method Indwelling Catheter Indwelling Catheter # Bowel Movements 1 - Constitutional General appearance: Present: no acute distress, obese - Respiratory Details: Lungs sounds diminished bilaterally. Respirations even, nonlabored. Currently on 4 L nasal cannula with oxygen saturation 98%. Only able to achieve 500-750 mL on his incentive spirometry with poor effort. - Cardiovascular Details: S1, S2 present. Regular rate and rhythm, sinus rhythm on telemetry. Sternum stable. Palpable peripheral pulses bilaterally. No lower extremity edema present. Zi wraps present to bilateral lower extremities. Bilateral lower extremity SCDs present. - Gastrointestinal Gastrointestinal Comment(s): Abdomen soft, nontender, nondistended. Active bowel sounds 4 quadrants. Tolerating diet minimally. Positive bowel movement yesterday. - Genitourinary Genitourinary Comment(s): Burrell present draining clear yellow urine, output 1600 mL overnight. - Integumentary Integumentary Comment(s): Skin is warm and dry. Anterior chest incision well healed. Scattered blistered areas to his bilateral lower extremities with scabbing, healing well. Lateral malleolus blister healing, no drainage this morning. - Neurologic Neurologic: Present: CNII-XII intact - Musculoskeletal Musculoskeletal Comment(s): Attempting to elevate legs. Musculoskeletal: Present: generalized weakness, strength equal bilaterally - Psychiatric Psychiatric Comment(s): More alert and cooperative today. Psychiatric: Present: A&O x's 3 - Allied health notes Allied health notes reviewed: nursing - Labs CBC & Chem 7: 12/09/18 07:02 12/09/18 07:02 Labs: Abnormal Lab Results - Last 24 Hours (Table) 12/08/18 12/08/18 12/08/18 Range/Units 11:15 11:55 11:55 WBC 19.1 H (3.8-10.6) k/uL RBC 2.53 L (4.30-5.90) m/uL Hgb 7.6 L (13.0-17.5) gm/dL Hct 24.8 L (39.0-53.0) % MCHC 30.7 L (31.0-37.0) g/dL RDW 18.8 H (11.5-15.5) % Neutrophils # 17.9 H (1.3-7.7) k/uL Lymphocytes # 0.5 L (1.0-4.8) k/uL Sodium 135 L (137-145) mmol/L Chloride 97 L (98-107) mmol/L Carbon Dioxide 32 H (22-30) mmol/L BUN 81 H (9-20) mg/dL Glucose 281 H (74-99) mg/dL POC Glucose (mg/dL) 280 H (75-99) mg/dL 12/08/18 12/08/18 12/09/18 Range/Units 16:58 20:49 06:52 WBC (3.8-10.6) k/uL RBC (4.30-5.90) m/uL Hgb (13.0-17.5) gm/dL Hct (39.0-53.0) % MCHC (31.0-37.0) g/dL RDW (11.5-15.5) % Neutrophils # (1.3-7.7) k/uL Lymphocytes # (1.0-4.8) k/uL Sodium (137-145) mmol/L Chloride (98-107) mmol/L Carbon Dioxide (22-30) mmol/L BUN (9-20) mg/dL Glucose (74-99) mg/dL POC Glucose (mg/dL) 313 H 303 H 137 H (75-99) mg/dL 12/09/18 12/09/18 Range/Units 07:02 07:02 WBC 15.8 H (3.8-10.6) k/uL RBC 2.42 L (4.30-5.90) m/uL Hgb 7.2 L (13.0-17.5) gm/dL Hct 23.3 L (39.0-53.0) % MCHC (31.0-37.0) g/dL RDW 18.8 H (11.5-15.5) % Neutrophils # (1.3-7.7) k/uL Lymphocytes # (1.0-4.8) k/uL Sodium (137-145) mmol/L Chloride (98-107) mmol/L Carbon Dioxide 38 H (22-30) mmol/L BUN 69 H (9-20) mg/dL Glucose 127 H (74-99) mg/dL POC Glucose (mg/dL) (75-99) mg/dL - Imaging and Cardiology Chest x-ray: report reviewed, image reviewed Assessment and Plan Assessment: 1. Acute lower extremity cellulitis, fever, leukocytosis, wound culture positive for pseudomonas aeruginosa and Enterobacter cloacae 2. History of severe eccentric mitral valve regurgitation, severely calcified mitral annulus, torn chordae to the P1 posterior leaflet, status post complex mitral valve repair on 10/31/2018 3. History of coronary artery disease with recent drug-eluting stent placed to his left anterior descending coronary artery on 09/24/2018 4. Chronic diastolic heart failure 5. Hypertension 6. Hyperlipidemia 7. Chronic kidney disease stage III with a baseline creatinine of 1.5-2.0 8. Diabetes mellitus type 2, with peripheral neuropathy 9. Anemia of chronic kidney disease 10. Moderate chronic obstructive pulmonary disease 11. Obstructive sleep apnea without home CPAP use 12. Pulmonary hypertension 13. Obesity 14. Osteoarthritis 15. History of tobacco dependence, previous pipe 16. History of paroxysmal atrial fibrillation, remains in sinus rhythm 17. History of transaminitis, resolved Plan: 1. Continue to optimize with medical therapy with aspirin, Plavix, statin, and beta sun. Amiodarone per cardiology. 2. Avoid nephrotoxic agents. 3. Diuresis management per nephrology. Currently on Lasix 40 mg IV daily. Per nephrology, patient should be discharged on oral lasix twice daily for a few days then decreased to daily. 4. Increase activity as tolerated. PT/OT following. Patient needs maximum encouragement, need to increase activity discussed again with patient, he continues to state his leg pain isn't controlled enough to stand although he falls asleep easily during conversation. 5. Antibiotic management per infectious disease. Wound care recommendations p er infectious disease. 6. Wean O2 as tolerated. Encourage use of his incentive spirometry every hour while awake. 7. Continue to reinforce open heart discharge instructions. Shower daily, no lifting pushing and pulling anything greater than 10 pounds or jug of milk for 12 weeks. 8. Pain control per primary care services. Recommend increasing Neurontin as pain appears neuropathic. Diabetes needs better control, blood sugars still climbing into the 200-300s. 9. GI/DVT prophylaxis. 10. When the patient is not ambulating or sitting up for meals he is to have his legs elevated higher than the level of his heart 6-8 inches. 11. Medical management per primary care service. May discharge back to [facility] from cardiothoracic standpoint when OK with other services, may need care home care if patient continues to refuse to participate with PT/OT Time with Patient: Greater than 30
[2018-12-09] MEDS: FUROSEMIDE 10 MG/ML 4 ML VIAL IV SCH (09:08)
--- NOTE | 2018-12-09 09:14 | P.PN ---
Subjective Progress Note Date: 12/09/18 Principal diagnosis: This is a 73-year-old male is seen with cardiorenal syndrome, acute kidney injury, significant edema and on Lasix. This morning he continues to feel worse, says his shortness of breath is worse. He seems to be depressed , although the nursing staff tells me he is eating fair amounts. Patient is known with COPD, check to see. On CPAP retention history of remote smoking and paroxysmal atrial fibrillation He has significant edema Objective - Vital Signs Vital signs: Vital Signs Temp 98.5 F 12/09/18 09:05 Pulse 70 12/09/18 09:05 Resp 18 12/09/18 09:05 BP 156/76 12/09/18 09:05 Pulse Ox 97 12/09/18 09:05 Intake & Output 12/08/18 12/09/18 12/09/18 18:59 06:59 18:59 Intake Total 480 480 Output Total 1300 1600 Balance -820 -1600 480 Intake: Oral 480 480 Output: Urine 1300 1600 Other: Voiding Method Indwelling Catheter Indwelling Catheter # Bowel Movements 1 On examination is awake alert but somewhat difficult to communicate with HEENT exam no JVP neck is supple no facial asymmetry Lungs are to auscultation, although there air entry is less than optimal no crackles or wheezing was heard Heart sounds are unremarkable seen to be normal sinus rhythm Abdomen soft nontender slightly protuberant but extreme exam was 1-2+ edema Neurologically difficult to communicate with. He answers with monosyllables. - Labs CBC & Chem 7: 12/09/18 07:02 12/09/18 07:02 Labs: Abnormal Lab Results - Last 24 Hours (Table) 12/08/18 12/08/18 12/08/18 Range/Units 11:15 11:55 11:55 WBC 19.1 H (3.8-10.6) k/uL RBC 2.53 L (4.30-5.90) m/uL Hgb 7.6 L (13.0-17.5) gm/dL Hct 24.8 L (39.0-53.0) % MCHC 30.7 L (31.0-37.0) g/dL RDW 18.8 H (11.5-15.5) % Neutrophils # 17.9 H (1.3-7.7) k/uL Lymphocytes # 0.5 L (1.0-4.8) k/uL Sodium 135 L (137-145) mmol/L Chloride 97 L (98-107) mmol/L Carbon Dioxide 32 H (22-30) mmol/L BUN 81 H (9-20) mg/dL Glucose 281 H (74-99) mg/dL POC Glucose (mg/dL) 280 H (75-99) mg/dL 12/08/18 12/08/18 12/09/18 Range/Units 16:58 20:49 06:52 WBC (3.8-10.6) k/uL RBC (4.30-5.90) m/uL Hgb (13.0-17.5) gm/dL Hct (39.0-53.0) % MCHC (31.0-37.0) g/dL RDW (11.5-15.5) % Neutrophils # (1.3-7.7) k/uL Lymphocytes # (1.0-4.8) k/uL Sodium (137-145) mmol/L Chloride (98-107) mmol/L Carbon Dioxide (22-30) mmol/L BUN (9-20) mg/dL Glucose (74-99) mg/dL POC Glucose (mg/dL) 313 H 303 H 137 H (75-99) mg/dL 12/09/18 12/09/18 Range/Units 07:02 07:02 WBC 15.8 H (3.8-10.6) k/uL RBC 2.42 L (4.30-5.90) m/uL Hgb 7.2 L (13.0-17.5) gm/dL Hct 23.3 L (39.0-53.0) % MCHC (31.0-37.0) g/dL RDW 18.8 H (11.5-15.5) % Neutrophils # (1.3-7.7) k/uL Lymphocytes # (1.0-4.8) k/uL Sodium (137-145) mmol/L Chloride (98-107) mmol/L Carbon Dioxide 38 H (22-30) mmol/L BUN 69 H (9-20) mg/dL Glucose 127 H (74-99) mg/dL POC Glucose (mg/dL) (75-99) mg/dL Assessment and Plan Assessment: Impression 1. Metabolic alkalosis from diuretics. On Lasix 40 mg IV daily, he had 2900 mL of urine output. 2. Acute kidney injury creatinine is down to normal. Creatinine down to 1.03 this morning 3. Significant edema improving. 4. Diabetes mellitus type 2 5. ASHD,with recent drug-eluting stent placed to his left anterior descending coronary artery on 09/24/2018 6. Paroxysmal atrial fibrillation Recommendation 1. Added Diamox 250 3 times a day for 3 days and then reassess
[2018-12-09 11:19] LABS: Glucose,Whole Blood 213 mg/dL (75-99)
[2018-12-09 17:21] LABS: Glucose,Whole Blood 203 mg/dL (75-99)
[2018-12-09] MEDS: MULTIVITAMINS, THERA 1 EACH TAB PO SCH (18:20)
[2018-12-09] MEDS: CHOLECALCIFEROL 1,000 UNIT TAB PO SCH (18:20)
[2018-12-09] MEDS: FERROUS SULFATE 325 MG TAB PO SCH (18:20)
[2018-12-09] MEDS: ASPIRIN 81 MG PO SCH (18:20)
[2018-12-09] MEDS: LIPASE 5,000/PROTEASE 17,000/AMYLASE 24,000 PO SCH (18:20)
[2018-12-09] MEDS: acetaZOLAMIDE 250 MG TAB PO SCH ×2 (18:25→23:09)
--- NOTE | 2018-12-09 20:34 | PN ---
PROGRESS NOTE DATE OF SERVICE: 12/09/2018 This 73-year-old gentleman who was admitted with multiple medical problems including bilateral leg cellulitis with sepsis, also had Pseudomonas aeruginosa, Enterobacter plaque grown from the culture. The patient is on IV antibiotics. Patient also complaining of severe pain. Patient also had change in mental status, metabolic encephalopathy. Sensorium is fluctuating at this time. Patient also had renal failure. The patient also had bilateral shadows and evidence of CHF also. Blood sugar is also being monitored. White count is elevated to 15.8. Hemoglobin 7.2. Multiple consultants are following the patient closely. PAST MEDICAL HISTORY: Reviewed. REVIEW OF SYSTEMS: CARDIOVASCULAR SYSTEM: No angina or palpitations. RESPIRATIONS: As mentioned earlier. GASTROINTESTINAL: As mentioned earlier. no dysuria. NERVOUS SYSTEM: No numbness or weakness. CURRENT MEDICATIONS: Reviewed and include: 1. Tylenol 650 q.6h p.r.n. 2. Tylenol No.3. 3. [place] 5 mg q.6h p.r.n. 4. Diamox 250 mg t.i.d. 5. Ventolin. 6. Cordarone 200 mg. 7. Zenpep. 8. Aspirin 81 mg. 9. Lipitor 40 mg q.h.s. 10.Dulcolax. 11.Cefepime 2 g. 12.Plavix. 13.Iron supplements. 14.Iron sulfate. 15.Lasix 40 mg IV daily. 16.Neurontin. 17.Heparin. 18.Milk of magnesia. 19.Narcan. 20.Protonix. 21.Senokot-S. 22.Silvadene cream. PHYSICAL EXAM: Patient is alert, oriented x2. Pulse 63, blood pressure 160/70, respiration 20, temperature 97.8, pulse ox 98% on room air. HEENT: Conjunctivae normal. Oral mucosa moist. NECK is no jugular venous distention. No carotid bruit. No lymph node enlargement. Cardiovascular system: S1, S2 muffled. Ejection systolic murmur. RESPIRATORY: Breath sounds diminished in the bases. Bilateral scattered rhonchi and crackles. Expiratory wheezing also present. ABDOMEN: Soft, nontender. No mass palpable. LEGS: No edema. No swelling. NERVOUS SYSTEM: Higher functions as mentioned earlier. Moves all four limbs. No focal motor or sensory deficits. LYMPHATICS: No lymph nodes palpable in the neck, axillae or groin. SKIN as mentioned earlier. JOINTS: No active deforming arthropathy. LABS: WBC 15.8, hemoglobin 7.2, sodium 138, potassium 4.5. Other labs are noted. ASSESSMENT: 1. Acute bilateral leg cellulitis with sepsis present on admission with Pseudomonas aeruginosa as well as Enterobacter cloacae. 2. Change in mental status with acute metabolic encephalopathy with multifactorial acute on chronic. 3. Diffuse generalized weakness, possible myopathy, present on admission. 4. Hypotension, possibly secondary to hypovolemia, present on admission. 5. Increased WBC. 6. Anemia of chronic disease. 7. Hyponatremia. 8. Increased creatinine with chronic kidney disease stage III. 9. Elevated AST, ALT, possibly acute hepatitis, improved. 10.Troponin 0.043, indeterminate. 11.Congestive heart failure with acute on chronic diastolic dysfunction. 12.History of mitral repair for mitral regurgitation. 13.History of coronary artery disease/ stent. 14.History of pulmonary hypertension. 15.Hyperlipidemia. 16.History of gastroesophageal reflux disease. 17.Diabetes mellitus type 2 with diabetic nephropathy. 18.Gait dysfunction. 19.History of sleep apnea. 20.History of degenerative joint disease. 21.FULL CODE. RECOMMENDATIONS AND DISCUSSION: Recommend to continue current medications. Continue to monitor. Symptomatic treatment. Otherwise, at this time, I recommend continue with cautious diuresis. Pain management. PT/OT evaluation. Increase ambulation. Had a detailed discussion with the family. The patient is currently NO CODE. Further recommendations to follow. MMODL / IJN: [id number] /
[2018-12-09 21:15] LABS: Glucose,Whole Blood 208 mg/dL (75-99)
[2018-12-09] MEDS: ATORVASTATIN 40 MG TAB PO SCH (22:54)
[2018-12-09] MEDS: ESCITALOPRAM 10 MG TAB PO SCH (22:55)
[2018-12-09] MEDS: SENNOSIDES-DOCUSATE SODIUM 1 EACH TAB PO SCH (22:56)
[2018-12-09] MEDS: INSULIN DETEMIR (LEVEMIR) 100 UNIT/ML SYR SQ SCH (22:57)
[2018-12-09 23:00] LABS: Glucose,Whole Blood 243 mg/dL (75-99)
[2018-12-10] MEDS: Acetaminophen-Codeine 300-30mg TAB PO PRN ×3 (01:06→16:09)
[2018-12-10 07:26] LABS: Glucose,Whole Blood 149 mg/dL (75-99)
[2018-12-10] MEDS: ALBUTEROL NEBULIZED 2.5 MG/3 ML INHALATION PRN ×2 (08:00→13:24)
[2018-12-10] MEDS: INSULIN ASPART (NovoLOG) 100 UNIT/ML VIAL SQ SCH ×4 (09:04→20:59)
[2018-12-10] MEDS: CEFEPIME 2 GM in SODIUM CHLORIDE 0.9% 100 ML IVPB SCH (09:04)
[2018-12-10] MEDS: HEPARIN SODIUM,PORCINE 5,000 UNIT/ML 1 ML VIAL SQ SCH ×2 (09:05→16:11)
[2018-12-10] MEDS: FUROSEMIDE 10 MG/ML 4 ML VIAL IV SCH (09:05)
[2018-12-10] MEDS: AMIODARONE 200 MG TAB PO SCH (09:11)
[2018-12-10] MEDS: acetaZOLAMIDE 250 MG TAB PO SCH ×3 (09:11→21:03)
[2018-12-10] MEDS: PANTOPRAZOLE 40 MG TABLET PO SCH (09:11)
[2018-12-10] MEDS: CLOPIDOGREL 75 MG TAB PO SCH (09:11)
[2018-12-10] MEDS: METOPROLOL TARTRATE 50 MG TAB PO SCH ×2 (09:11→21:00)
[2018-12-10] MEDS: GABAPENTIN 100 MG CAP PO SCH ×2 (09:11→20:59)
--- NOTE | 2018-12-10 09:34 | P.PN ---
Subjective Progress Note Date: 12/10/18 Principal diagnosis: Cellulitis of both lower extremities with positive wound culture showing Pseudomonas aeruginosa and Enterobacter cloacae, fever, acute kidney injury. Previous medical history of severe concentric mitral valve regurgitation with severely calcified mitral annulus status post complex mitral valve repair on 10/31/[address] Lozada, coronary artery disease with recent drug- eluting stent placed to the left anterior descending coronary artery in September 2018, chronic diastolic heart failure, hypertension, hyperlipidemia, type 2 diabetes mellitus with peripheral neuropathy and a preoperative hemoglobin A1c of 7%, chronic kidney disease with a baseline creatinine around 2, moderate chronic obstructive pulmonary disease with FEV1 of 54% of predicted value, obstructive sleep apnea without home CPAP use, pulmonary hypertension, obesity, previous tobacco dependence and postoperative transaminitis and paroxysmal atrial fibrillation. The patient is currently laying in bed in no acute distress. Alert and oriented today. Does state that pain to his bilateral lower extremities is slightly better. Still complains of shortness of breath with activity. No lower extremity edema present, zi wraps working well for compression, sores healing nicely. Remains in normal sinus rhythm, hemodynamically stable, excellent urine output with IV Lasix. Remains on cefepime per infectious disease. Patient is more participatory in his care, assisted with dressing changes by lifting his own legs. Objective - Vital Signs Vital signs: Vital Signs Temp 98.1 F 12/10/18 07:35 Pulse 58 L 12/10/18 07:35 Resp 20 12/10/18 07:35 BP 147/77 12/10/18 07:35 Pulse Ox 99 12/10/18 07:35 Intake & Output 12/09/18 12/10/18 12/10/18 18:59 06:59 18:59 Intake Total 480 358 Output Total 1300 1600 Balance -820 -1242 Intake: Oral 480 358 Output: Urine 1300 1600 Uretheral (Burrell) 475 Other: Voiding Method Indwelling Catheter - Constitutional General appearance: Present: no acute distress, obese - Respiratory Details: Lungs sounds diminished bilaterally. Respirations even, nonlabored. Currently on 2 L nasal cannula with oxygen saturation 99%. Only able to achieve 500-750 mL on his incentive spirometry with poor effort. - Cardiovascular Details: S1, S2 present. Regular rate and rhythm, sinus rhythm on telemetry. Sternum stable. Palpable peripheral pulses bilaterally. No lower extremity edema present. Zi wraps present to bilateral lower extremities. Bilateral lower extremity SCDs present. - Gastrointestinal Gastrointestinal Comment(s): Abdomen soft, nontender, nondistended. Active bowel sounds 4 quadrants. Tolerating diet minimally. Positive bowel movement 12/09. - Genitourinary Genitourinary Comment(s): Burrell present draining clear yellow urine, output 975 mL overnight. - Integumentary Integumentary Comment(s): Skin is warm and dry. Anterior chest incision well healed. Scattered blistered areas to his bilateral lower extremities with scabbing, healing well. Lateral malleolus blister healing, no drainage this morning. - Neurologic Neurologic: Present: CNII-XII intact - Musculoskeletal Musculoskeletal: Present: generalized weakness, strength equal bilaterally - Psychiatric Psychiatric Comment(s): Cooperative with treatment today. Psychiatric: Present: A&O x's 3 - Allied health notes Allied health notes reviewed: nursing - Labs CBC & Chem 7: 12/09/18 07:02 12/09/18 07:02 Labs: Abnormal Lab Results - Last 24 Hours (Table) 12/09/18 12/09/18 12/09/18 Range/Units 07:02 11:08 17:10 Carbon Dioxide 38 H (22-30) mmol/L BUN 69 H (9-20) mg/dL Glucose 127 H (74-99) mg/dL POC Glucose (mg/dL) 213 H 203 H (75-99) mg/dL 12/09/18 12/09/18 12/10/18 Range/Units 21:03 22:48 07:13 Carbon Dioxide (22-30) mmol/L BUN (9-20) mg/dL Glucose (74-99) mg/dL POC Glucose (mg/dL) 208 H 243 H 149 H (75-99) mg/dL Microbiology - Last 24 Hours (Table) 12/08/18 11:55 Blood Culture - Preliminary Blood No Growth after 24 hours Assessment and Plan Assessment: 1. Acute lower extremity cellulitis, fever, leukocytosis, wound culture positive for pseudomonas aeruginosa and Enterobacter cloacae 2. History of severe eccentric mitral valve regurgitation, severely calcified mitral annulus, torn chordae to the P1 posterior leaflet, status post complex mitral valve repair on 10/31/2018 3. History of coronary artery disease with recent drug-eluting stent placed to his left anterior descending coronary artery on 09/24/2018 4. Chronic diastolic heart failure 5. Hypertension 6. Hyperlipidemia 7. Chronic kidney disease stage III with a baseline creatinine of 1.5-2.0 8. Diabetes mellitus type 2, with peripheral neuropathy 9. Anemia of chronic kidney disease 10. Moderate chronic obstructive pulmonary disease 11. Obstructive sleep apnea without home CPAP use 12. Pulmonary hypertension 13. Obesity 14. Osteoarthritis 15. History of tobacco dependence, previous pipe 16. History of paroxysmal atrial fibrillation, remains in sinus rhythm 17. History of transaminitis, resolved Plan: 1. Continue to optimize with medical therapy with aspirin, Plavix, statin, and beta sun. Amiodarone per cardiology. 2. Avoid nephrotoxic agents. 3. Diuresis management per nephrology. Currently on Lasix 40 mg IV daily. Per nephrology, patient should be discharged on oral lasix twice daily for a few days then decreased to daily. Diamox initiated yesterday by nephrology. 4. Increase activity as tolerated. PT/OT following. Patient needs maximum encouragement, need to increase activity, discussed again with patient, en courage the patient is lifting his legs for dressing changes. 5. Antibiotic management per infectious disease. Wound care recommendations per infectious disease. 6. Wean O2 as tolerated. Encourage use of his incentive spirometry every hour while awake. 7. Continue to reinforce open heart discharge instructions. Shower daily, no lifting pushing and pulling anything greater than 10 pounds or jug of milk for 12 weeks. 8. Pain control per primary care services. Recommend increasing Neurontin as pain appears neuropathic. Diabetes needs better control, blood sugars still climbing into the 200s. 9. GI/DVT prophylaxis. 10. When the patient is not ambulating or sitting up for meals he is to have his legs elevated higher than the level of his heart 6-8 inches. 11. Medical management per primary care service. May discharge back to [facility] from cardiothoracic standpoint when OK with other services, may need assisted care. Time with Patient: Greater than 30
[2018-12-10 12:39] LABS: Glucose,Whole Blood 182 mg/dL (75-99)
[2018-12-10 13:00] VITALS: BMI 36.8
--- NOTE | 2018-12-10 13:12 | P.PN ---
Subjective Patient is seen in follow-up for acute kidney injury on chronic kidney disease. Patient has chronic kidney disease stage III with baseline creatinine near 1.1- 1.5. Renal function is improved. Hypotension has resolved. On lasix 40 mg IV once daily. Nonoliguric. Vital signs are stable. General: The patient appeared well nourished and normally developed. HEENT: Head exam is unremarkable. Neck is without jugular venous distension. LUNGS: Lungs are clear to auscultation and percussion. Breath sounds decreased. HEART: Rate and Rhythm are regular. First and second heart sounds normal. No murmurs, rubs or gallops. ABDOMEN: Abdominal exam reveals normal bowel sounds. Non-tender and non- distended. No evidence of peritonitis. EXTREMITITES: 1+ edema. No obvious drainage. Objective - Vital Signs Vital signs: Vital Signs Temp 98.1 F 12/10/18 07:35 Pulse 65 12/10/18 09:03 Resp 18 12/10/18 09:32 BP 147/77 12/10/18 07:35 Pulse Ox 96 12/10/18 09:32 Intake & Output 12/09/18 12/10/18 12/10/18 18:59 06:59 18:59 Intake Total 480 358 325 Output Total 1300 1600 1320 Balance -820 -1242 -995 Weight 103.5 kg Intake: Oral 480 358 325 Output: Urine 1300 1600 1320 Uretheral (Burrell) 475 1320 Other: Voiding Method Indwelling Catheter Indwelling Catheter - Labs CBC & Chem 7: 12/09/18 07:02 12/09/18 07:02 Labs: Abnormal Lab Results - Last 24 Hours (Table) 12/09/18 12/09/18 12/09/18 Range/Units 17:10 21:03 22:48 POC Glucose (mg/dL) 203 H 208 H 243 H (75-99) mg/dL 12/10/18 12/10/18 Range/Units 07:13 12:27 POC Glucose (mg/dL) 149 H 182 H (75-99) mg/dL Microbiology - Last 24 Hours (Table) 12/08/18 11:55 Blood Culture - Preliminary Blood No Growth after 24 hours Assessment and Plan Plan: Assessment: 1. Acute kidney injury mostly prerenal secondary to cardiorenal syndrome. Renal function is better. Creatinine 1.03 today. UA is quite benign. No evidence of hydronephrosis on ultrasound from last month. 2. Chronic kidney disease stage III. Baseline creatinine near 1.1-1.5. 3. Volume overload. Currently on IV Lasix. Proofed. 4. Coronary artery disease status post stenting. 5. 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 6. Insulin-dependent diabetes mellitus. 7. Lower extremity cellulitis maintained on IV antibiotics. Wound culture positive for Pseudomonas and Enterobacter. 8. Anemia of chronic kidney disease. Iron deficiency noted. Maintained on Aranesp. His posterior doses of IV iron. 9. Metabolic alkalosis secondary to diuresis. Maintained on Diamox right now. Plan: Maintain IV Lasix 40 mg daily along with Diamox. Continue to monitor renal function and urine output. Repeat electrolytes in the morning.
--- NOTE | 2018-12-10 15:54 | P.PN ---
Subjective Progress Note Date: 12/10/18 Principal diagnosis: This is a 73-year-old male with a past medical history of multiple medical problems with recent cardiac surgery including mitral valve replacement, stent placement, myocardial infarction, pulmonary hypertension and was recently admitted for an increase in weakness with swelling and blistering of the lower legs with fever and is being closely monitored. Patient is sitting up in the chair with legs elevated sleeping but easily arousable. Family is at the bedside. Bilateral lower extremities are wrapped with Zi wraps and elevated at this time. Extremely guarded prognosis 12/03/2018 Patient is sitting up in the chair sleeping but arousable. Patient states that he is very lethargic and continues to nod off while talking. Patient is currently in the ICU and is being closely monitored. Patient lower extremities are down and not currently being elevated. Patient states that he does when he is lying in bed. Zi wraps dry and intact with obvious swelling of the bilateral lower extremities. Heart hugger is in place. patient denies any chest pain or palpitations but does state that he is short of breath with just about any movement to or from the chair. Patient has poor appetite but denies any nausea or vomiting. Patient has a low grade temp this morning of 99.1F and is being closely monitored. ID is following as well as many other consultants. Prognosis is guarded. 12/04/2018 Patient is sitting up in the chair with bilateral legs elevated in no acute distress. Patient states that he is having worsening discomfort in the bilateral lower extremities especially his feet. Discussed with the patient in detail about keeping the legs elevated to help minimize the swelling and discomfort. Zi wraps along with Silvadene cream were being applied by nursing staff at the time of the visit. Multiple ulcerations lower extremities bilaterally are present with slight improvement to the ulcerations of the shins with some scabbing noted. Infectious disease is following closely for antibiotic coverage as well as wound care therapy. Patient states he is not eating much but has been attempting to eat more to build up his strength. Patient states that he still having some shortness of breath with exertion. Discussed with the patient at length about the importance of using incentive spirometer at the bedside at least 10 times per hour while awake. Patient denies any chest pain or palpitations at this time. Patient states that he sti ll very fatigued and feels exhausted. Multiple medical consultations are following closely. Guarded prognosis. 12/05/2018 Patient is sitting up in the chair in no acute distress with bilateral legs elevated with daughter at the bedside. Patient denies any shortness of breath, chest pain, or palpitations at this time. Patient denies any nausea or vomiting and is tolerating foods. Patient is a very picky eater and family at the bedside is bringing in protein shakes along with yogurts and other foods to encourage his increase in oral intake. Patient continues to have bilateral lower extremity pain along with bilateral foot pain that he states is not al lowing him to be able to get up and walk and is frustrated. A change in pain medications has been addressed. Discussed with the patient about avoiding sleepiness due to pain medication usage but attempting to find the right dose to help with pain control. Discussed with the patient at length about using the incentive spirometer at least 10 times per hour while awake especially due to the inability to get up and walk at this time. Spoke to the daughter about encouraging him to stay awake during the day by opening the window shades and staying out of bed. Patient has been afebrile. Patient is awaiting a transfer out of the ICU when a bed becomes available. Guarded prognosis. 12/06/2018 Patient is sitting up in the chair in no acute distress and continues to state that he is having a lot of pain and discomfort in his bilateral lower extremities especially his feet. Patient was moved out of the ICU and is being monitored closely. Per nursing staff the patient has been sitting in his chair all night and most of the day and nods off and on all day out of sleep. Patient was refusing to work with PT/OT due to the discomfort of lower extremities. Discussed with the patient at length today about getting up and working with PT OT as this is a very important part of his treatment plan and overall prognosis. Patient does have pain medications ordered and is taking. Spoke with nursing staff today about cautiously giving narcotics as he continues to be quite lethargic all day. No family is at the bedside today. Discussed with the patient at length today about continuing to use his incentive spirometer and patient stated that he is using the incentive spirometer when he can reach it as it was on the other side of the table this morning. Maximum was 750 today on the incentive spirometer. Patient continues to need intense encouragement to do much of anything. Guarded prognosis. 12/07/2018 Patient is lying in bed with bilateral legs elevated up on pillows, SCDs present along with Zi wraps to minimize swelling. Patient continues to state that he has a lot of pain and discomfort in his legs and feet. Patient remains lethargic but easily arousable. Per nursing staff and the patient, patient was up today with physical therapy from the chair to the bed. Continued encouragement of physical therapy as well as incentive spirometer use. Chest x- ray yesterday shows improved pulmonary venous congestion with persistent cardiomegaly with small left-sided pleural effusion with probable underlying atelectasis. Spoke with the nursing staff about continuing to encourage incentive spirometer use and getting up with physical therapy. Multiple medical consultations are following. Guarded prognosis. 12/10/2018 Patient is sitting up in bed in no acute distress. Daughter at the bedside. Discussed with the patient at length today about working with PT/OT as he has been refusing due to lower extremity swelling and pain. Per the patient he will work with them today as his daughter continues to stress the importance of building up strength. Patient is still having increased amounts of pain and is upset because he feels he isn't getting enough pain medications. Discussed with the patient about his increase lethargy and fatigue when taking narcotics. P atient denies any chest pain or palpitations at this time. Patient is afebrile. Patient states he does have some periods of shortness of breath and is still requiring oxygen at 2 L via nasal cannula. Discussed with the patient about the importance of incentive spirometer use as well. Objective - Vital Signs Vital signs: Vital Signs Temp 98.1 F 12/10/18 07:35 Pulse 68 12/10/18 13:39 Resp 18 12/10/18 09:32 BP 147/77 12/10/18 07:35 Pulse Ox 96 12/10/18 09:32 Intake & Output 12/09/18 12/10/18 12/10/18 18:59 06:59 18:59 Intake Total 480 358 325 Output Total 1300 1600 1320 Balance -820 -1242 -995 Weight 103.5 kg Intake: Oral 480 358 325 Output: Urine 1300 1600 1320 Uretheral (Burrell) 475 1320 Other: Voiding Method Indwelling Catheter Indwelling Catheter - Exam Gen: This is a 73-year-old male sitting up in bed in no acute distress. Vital signs are stable. Temp is 98.1 F oral, pulse is 58, respirations are 20, blood pressure is 147/77, oxygen saturation is 99 % on 3 L nasal cannula HEENT: Head is atraumatic, normocephalic. Pupils equal, round. Sclerae is anicteric. NECK: Supple. No JVD. No lymphadenopathy. No thyromegaly. LUNGS: Diminished breath sounds at the bases. Bilateral scattered rhonchi noted. No intercostal retractions. HEART: S1 and S2 are muffled , ejection systolic murmur ABDOMEN: Soft. Obese. Bowel sounds are present. No masses. No tenderness. EXTREMITIES: Mild pedal edema. Slightly improved. Bilateral lower extremity swelling. Zi wrap is intact. No calf tenderness. Bilateral lower extremity tenderness upon palpation. NEUROLOGICAL: Patient is awake at this time, alert and oriented x3. Cranial nerves 2 through 12 are grossly intact. SKIN: Blistering and ulcers noted to bilateral lower extremities and bilateral feet with redness and swelling noted of the surrounding tissue, swelling has improved slightly - Labs CBC & Chem 7: 12/09/18 07:02 12/09/18 07:02 Labs: Abnormal Lab Results - Last 24 Hours (Table) 12/09/18 12/09/18 12/09/18 Range/Units 17:10 21:03 22:48 POC Glucose (mg/dL) 203 H 208 H 243 H (75-99) mg/dL 12/10/18 12/10/18 Range/Units 07:13 12:27 POC Glucose (mg/dL) 149 H 182 H (75-99) mg/dL Microbiology - Last 24 Hours (Table) 12/08/18 11:55 Blood Culture - Preliminary Blood No Growth after 48 hours Assessment and Plan Assessment: Acute bilateral leg cellulitis with sepsis, present on admission pseudomonas aeruginosa as well as gram-negative bacilli; infectious disease if following. Patient is currently on IV cefepime Diffuse generalized weakness with possible myopathy, present on admission hypotension possible secondary to hypovolemia Increased WBC Anemia of chronic disease Hyponatremia Change in mental status, acute metabolic encephalopathy, multifactorial acute on chronic Increased creatinine with chronic kidney disease stage III; current creatinine is 1.13 Elevated AST, ALT, possibly hepatitis, improved Troponin 0.043, indeterminate Congestive heart failure with acute on chronic diastolic dysfunction, recent mitral valve replacement for mitral regurgitation History of coronary artery disease/stent History pulmonary hypertension Hyperlipidemia History of gastroesophageal reflux disease Diabetes mellitus type 2 with diabetic nephropathy Gait dysfunction History of obstructive sleep apnea history of degenerative joint disease Full code Recommendations and discussion: Recommend to continue current medications, management, and symptomatic treatment. Multiple medical consultations are following. Continue to encourage the patient to use the incentive spirometer at least 10 times every hour while awake. Discussed with the patient about PT/OT and encouraged patient to continue to work with them for strength and mobility. Daughter is at the bedside encouraging as well. Will continue to monitor vital signs and labs clos [place]. Once stabilized patient will be returning to [facility]. Due to multiple complex medical issues overall prognosis is extremely guarded. Further recommendations to follow.
[2018-12-10] MEDS: LIPASE 5,000/PROTEASE 17,000/AMYLASE 24,000 PO SCH (16:10)
[2018-12-10] MEDS: ASPIRIN 81 MG PO SCH (16:11)
[2018-12-10] MEDS: FERROUS SULFATE 325 MG TAB PO SCH (16:11)
[2018-12-10] MEDS: CHOLECALCIFEROL 1,000 UNIT TAB PO SCH (16:11)
[2018-12-10 18:23] LABS: Glucose,Whole Blood 154 mg/dL (75-99)
[2018-12-10] MEDS: MULTIVITAMINS, THERA 1 EACH TAB PO SCH (18:37)
[2018-12-10] MEDS: ESCITALOPRAM 10 MG TAB PO SCH (20:59)
[2018-12-10 21:00] LABS: Glucose,Whole Blood 200 mg/dL (75-99)
[2018-12-10] MEDS: ATORVASTATIN 40 MG TAB PO SCH (21:00)
[2018-12-10] MEDS: INSULIN DETEMIR (LEVEMIR) 100 UNIT/ML SYR SQ SCH (21:00)
[2018-12-10] MEDS: SENNOSIDES-DOCUSATE SODIUM 1 EACH TAB PO SCH (21:02)
[2018-12-10] MEDS ORDERED: traMADol 50 MG TAB PO PRN (23:08)
--- NOTE | 2018-12-10 23:08 | P.PN ---
Subjective Progress Note Date: 12/10/18 73-year-old male presents to Hospital from the extended care facility where he has been recovering status post his extensive mitral valve repair for his mitral stenosis. There was also repair of the ruptured chordae tendon 9. Prior to the finding of severe mitral stenosis he did have coronary disease and a percutaneous intervention occurred with stenting of a drug-eluting type. Afterward the open heart procedure occurred. Due to his weakness has been recovering at the extended care facility when it was noticed that he had the rapid worsening of the lower extremities with the increasing amount of edema the tissue started to blister he developed a fever and was transferred to our facil ity. Due to the lower actually wounds and concerns to infection especially in the face of his recent surgical interventions. Consultation was requested. Patient is feeling slightly better he has identities less short of breath the lower extremities are feeling somewhat better they are less uncomfortable 12/03/2018 the patient is feeling somewhat better. Cultures of the leg cultures have been finalized and Pseudomonas and Enterobacter isolated. Patient will likely be going to rehabilitation and does have IV access. December 04 2018 patient still very weak being evaluated for rehab, patient is short of breath and does not feel well. 12/07/2018 feeling better less SOB legs improved with wraps 12/10/2018 patient has been a bit more cooperative today. Was able to raise his legs to have his legs wrapped. Still very weak plans for transfer to rehab. Objective - Vital Signs Vital signs: Vital Signs Temp 97.7 F 12/10/18 20:58 Pulse 68 12/10/18 20:58 Resp 15 12/10/18 20:58 BP 130/70 12/10/18 20:58 Pulse Ox 100 12/10/18 20:58 Intake & Output 12/10/18 12/10/18 12/11/18 06:59 18:59 06:59 Intake Total 358 725 100 Output Total 1600 1320 720 Balance -7762 -423 -306 Weight 103.5 kg Intake: Oral 358 725 100 Output: Urine 1600 1320 720 Uretheral (Burrell) 475 1320 720 Other: Voiding Method Indwelling Catheter Indwelling Catheter Indwelling Catheter - Exam HEENT: Anicteric conjunctiva are pink and moist nasal mucosa grossly intact without significant lesions, there is no thrush. Poor dentition Neck: The neck is supple without significant lymphadenopathy or thyromegaly. Lungs: Symmetrical bilateral air entry basilar crackles are heard. Extremities no bronchial sounds Heart: Irregular audible S1 and S2 2/6 systolic murmur left sternal border PMI nondisplaced Abdomen: Positive bowel sounds soft and nontender without palpable masses or organomegaly. There was no guarding or rebound. Extremities: The upper extremities have excellent pulses they are symmetric, no significant petechiae or telangiectasia. No splinter hemorrhages were noted. The lower extremities the improved bilateral lower extremity edema is more evidence of blistering to the left leg into the right. There is evidence of the improved erythema the left leg is also mildly tender there is no purulent drainage at this time. Neuro: Awake alert oriented to person place and time. There are no acute new gross focal sensory motor deficits. - Labs CBC & Chem 7: 12/09/18 07:02 12/09/18 07:02 Labs: Abnormal Lab Results - Last 24 Hours (Table) 12/10/18 12/10/18 12/10/18 Range/Units 07:13 12:27 18:11 POC Glucose (mg/dL) 149 H 182 H 154 H (75-99) mg/dL 12/10/18 Range/Units 20:49 POC Glucose (mg/dL) 200 H (75-99) mg/dL Microbiology - Last 24 Hours (Table) 12/08/18 11:55 Blood Culture - Preliminary Blood No Growth after 48 hours Laboratory Results WBC 15.8 k/uL (3.8-10.6) H 12/09/18 07:02 RBC 2.42 m/uL (4.30-5.90) L 12/09/18 07:02 Hgb 7.2 gm/dL (13.0-17.5) L 12/09/18 07:02 Hct 23.3 % (39.0-53.0) L 12/09/18 07:02 MCV 96.3 fL (80.0-100.0) 12/09/18 07:02 MCH 30.0 pg (25.0-35.0) 12/09/18 07:02 MCHC 31.1 g/dL (31.0-37.0) 12/09/18 07:02 RDW 18.8 % (11.5-15.5) H 12/09/18 07:02 Plt Count 386 k/uL (150-450) 12/09/18 07:02 Neutrophils % 94 % 12/08/18 11:55 Lymphocytes % 2 % 12/08/18 11:55 Monocytes % 2 % 12/08/18 11:55 Eosinophils % 1 % 12/08/18 11:55 Basophils % 1 % 12/08/18 11:55 Neutrophils # 17.9 k/uL (1.3-7.7) H 12/08/18 11:55 Lymphocytes # 0.5 k/uL (1.0-4.8) L 12/08/18 11:55 Monocytes # 0.5 k/uL (0-1.0) 12/08/18 11:55 Eosinophils # 0.1 k/uL (0-0.7) 12/08/18 11:55 Basophils # 0.1 k/uL (0-0.2) 12/08/18 11:55 Hypochromasia Moderate 12/09/18 07:02 Poikilocytosis Slight 12/09/18 07:02 Anisocytosis Slight 12/09/18 07:02 Macrocytosis Slight 12/09/18 07:02 PT 12.2 sec (9.0-12.0) H 11/29/18 13:55 INR 1.2 (<1.2) H 11/29/18 13:55 APTT 26.7 sec (22.0-30.0) 11/29/18 13:55 Sodium 138 mmol/L (137-145) 12/09/18 07:02 Potassium 4.5 mmol/L (3.5-5.1) 12/09/18 07:02 Chloride 100 mmol/L (98-107) 12/09/18 07:02 Carbon Dioxide 38 mmol/L (22-30) H 12/09/18 07:02 Anion Gap 0 mmol/L 12/09/18 07:02 BUN 69 mg/dL (9-20) H 12/09/18 07:02 Creatinine 1.03 mg/dL (0.66-1.25) 12/09/18 07:02 Est GFR (CKD-EPI)AfAm 83 (>60 ml/min/1.73 sqM) 12/09/18 07:02 Est GFR (CKD-EPI)NonAf 72 (>60 ml/min/1.73 sqM) 12/09/18 07:02 Glucose 127 mg/dL (74-99) H 12/09/18 07:02 POC Glucose (mg/dL) 200 mg/dL (75-99) H 12/10/18 20:49 POC Glu Pedigree Tracer Kacy Morris 12/10/18 20:49 Lactic Ac Sepsis Rflx Y 11/29/18 14:30 Plasma Lactic Acid Guy 1.5 mmol/L (0.7-2.0) 12/08/18 11:55 Calcium 8.9 mg/dL (8.4-10.2) 12/09/18 07:02 Magnesium 2.4 mg/dL (1.6-2.3) H 12/06/18 07:32 Iron 18 ug/dL (65-175) L 11/29/18 13:55 TIBC 298 ug/dL (228-460) 11/29/18 13:55 Iron Saturation 6.04 (15.00-50.00) L 11/29/18 13:55 Ferritin 1042.1 ng/mL (22.0-322.0) H 11/29/18 13:55 Total Bilirubin 1.0 mg/dL (0.2-1.3) 12/06/18 07:32 AST 43 U/L (17-59) 12/06/18 07:32 ALT 49 U/L (21-72) 12/06/18 07:32 Alkaline Phosphatase 183 U/L (38-126) H 12/06/18 07:32 Creatine Kinase 51 U/L (55-170) L 11/29/18 13:55 Troponin I 0.029 ng/mL (0.000-0.034) 11/30/18 03:01 C-Reactive Protein 327.4 mg/L (<10.0) H 11/29/18 13:55 NT-Pro-B Natriuret Pep 18286 pg/mL 11/29/18 13:55 Total Protein 5.9 g/dL (6.3-8.2) L 12/06/18 07:32 Albumin 2.9 g/dL (3.5-5.0) L 12/06/18 07:32 TSH 3.960 mIU/L (0.465-4.680) 11/29/18 13:55 Urine Color Yellow 11/29/18 14:05 Urine Appearance Clear (Clear) 11/29/18 14:05 Urine pH 5.0 (5.0-8.0) 11/29/18 14:05 Ur Specific [place] 1.018 (1.001-1.035) 11/29/18 14:05 Urine Protein Trace (Negative) H 11/29/18 14:05 Urine Glucose (UA) Negative (Negative) 11/29/18 14:05 Urine Ketones Negative (Negative) 11/29/18 14:05 Urine Blood Negative (Negative) 11/29/18 14:05 Urine Nitrite Negative (Negative) 11/29/18 14:05 Urine Bilirubin Negative (Negative) 11/29/18 14:05 Urine Urobilinogen <2.0 mg/dL (<2.0) 11/29/18 14:05 Ur Leukocyte Esterase Negative (Negative) 11/29/18 14:05 Microbiology 12/08/18 11:55 Blood Blood Culture - Preliminary No Growth after 48 hours 11/29/18 13:55 Blood Blood Culture - Final No Growth after 144 hours 11/29/18 22:30 Ankle - Left Gram Stain - Final 11/29/18 22:30 Ankle - Left Wound Culture - Final Pseudomonas aeruginosa Enterobacter cloacae 11/29/18 22:30 Urine,Clean Catch Urine Culture - Final Assessment and Plan (1) Fever Current Visit: Yes Status: Acute Code(s): R50.9 - FEVER, UNSPECIFIED SNOMED Code(s): 391377215 (2) MIGUEL ANGEL (acute kidney injury) Current Visit: No Status: Acute Code(s): N17.9 - ACUTE KIDNEY FAILURE, UNSPECIFIED SNOMED Code(s): 26929555 (3) CAD (coronary artery disease) Current Visit: Yes Status: Acute Code(s): I25.10 - ATHSCL HEART DISEASE OF [place] CORONARY ARTERY W/O ANG PCTRS SNOMED Code(s): 57764493 (4) Cellulitis of both lower extremities Narrative/Plan: 73-year-old male presents to Hospital from the [facility] care facility where he is receiving care after his open heart procedure for repair of his severe mitral valve stenosis which was done by the mitral valve repair as well as cordite and any repair. In September he had undergone his percutaneous intervention with stenting in drug-eluting stents. The patient had the significant increasing amount of edema to the lower extremity such that he developed multiple blisters left greater than right. Silvadene and wraps are applied to help with the edema and help with the tissue. Antibiotic therapy with Zosyn and vancomycin has been initiated given his significant level of illness at the time of his presentation. Cultures are process and will de-escalate antibiotics as cultures become available. Elevation of the limbs well at rest is very important in conjunction with the current wraps her be applied. The temperature maximum was 100.2 now the fever has resolved. His acute renal failure seems to be improving and his leukocytosis will be monitored. 12/03/2018 patient is feeling better has eaten his meal today without great di fficulties. His appetite somewhat poor. Wound culture is finalized pseudomonas as well as Enterobacter although they are susceptible to fluoroquinolones the patient is on amiodarone which does not allow the utilization of quinolone therapy. We'll be able to streamline antibiotic therapy to cefepime 2 gm IVPB q12 hours when transferring to [facility] 12/04/2018 patient week and is really quite miserable. Physical therapy is working with him to try to improve his status. We transferred to rehab. He can receive his intravenous antibiotic therapy of cefepime there. Continue with the local wraps and elevation to the lower extremities which has allowed some improvement of the edema blistering is starting to improve. 12/07/2108 some improvement noted doing well with cefepime will continue for a few more days 12/10/2018 is having some further improvement. Still having some pain. Working with the neighborhood planner as to antibiotics at the extended care facility. We'll inquire of tramadol can be added for some further pain control. Current Visit: Yes Status: Acute Code(s): L03.115 - CELLULITIS OF RIGHT LOWER LIMB; L03.116 - CELLULITIS OF LEFT LOWER LIMB SNOMED Code(s): 825435742
[2018-12-11] MEDS: HEPARIN SODIUM,PORCINE 5,000 UNIT/ML 1 ML VIAL SQ SCH ×4 (00:17→23:41)
[2018-12-11] MEDS: Acetaminophen-Codeine 300-30mg TAB PO PRN ×2 (00:18→11:00)
[2018-12-11 07:09] LABS: Calcium 8.8 mg/dL (8.4-10.2); Potassium 4.8 mmol/L (3.5-5.1)
[2018-12-11 07:11] LABS: Glucose,Whole Blood 170 mg/dL (75-99)
[2018-12-11] MEDS: ALBUTEROL NEBULIZED 2.5 MG/3 ML INHALATION PRN ×2 (07:26→11:03)
[2018-12-11] MEDS: CLOPIDOGREL 75 MG TAB PO SCH (07:36)
[2018-12-11] MEDS: AMIODARONE 200 MG TAB PO SCH (07:36)
[2018-12-11] MEDS: PANTOPRAZOLE 40 MG TABLET PO SCH (07:36)
[2018-12-11] MEDS: GABAPENTIN 100 MG CAP PO SCH ×2 (07:36→21:03)
[2018-12-11] MEDS: METOPROLOL TARTRATE 50 MG TAB PO SCH ×2 (07:37→21:03)
[2018-12-11] MEDS: INSULIN ASPART (NovoLOG) 100 UNIT/ML VIAL SQ SCH ×4 (07:38→21:02)
[2018-12-11] MEDS: CEFEPIME 2 GM in SODIUM CHLORIDE 0.9% 100 ML IVPB SCH (07:38)
[2018-12-11] MEDS: FUROSEMIDE 10 MG/ML 4 ML VIAL IV SCH (07:38)
[2018-12-11] MEDS: acetaZOLAMIDE 250 MG TAB PO SCH ×2 (07:38→21:04)
--- NOTE | 2018-12-11 09:25 | P.PN ---
Subjective Progress Note Date: 12/11/18 Principal diagnosis: Cellulitis of both lower extremities with positive wound culture showing Pseudomonas aeruginosa and Enterobacter cloacae, fever, acute kidney injury. Previous medical history of severe concentric mitral valve regurgitation with severely calcified mitral annulus status post complex mitral valve repair on 10/31/[address] Lozada, coronary artery disease with recent drug- eluting stent placed to the left anterior descending coronary artery in September 2018, chronic diastolic heart failure, hypertension, hyperlipidemia, type 2 diabetes mellitus with peripheral neuropathy and a preoperative hemoglobin A1c of 7%, chronic kidney disease with a baseline creatinine around 2, moderate chronic obstructive pulmonary disease with FEV1 of 54% of predicted value, obstructive sleep apnea without home CPAP use, pulmonary hypertension, obesity, previous tobacco dependence and postoperative transaminitis and paroxysmal atrial fibrillation. The patient is currently laying in bed in no acute distress. Alert and oriented today. Does state that pain to his bilateral lower extremities is slightly better. Still complains of shortness of breath with activity. Bilateral foot edema present without leg edema, zi wraps working well for compression, sores healing nicely. Remains in normal sinus rhythm, hemodynamically stable, excellent urine output with IV Lasix. Remains on cefepime per infectious disease. Patient is more participatory in his care, assisted with dressing changes by lifting his own legs, participated with PT/OT yesterday and sat at t he side of the bed. Objective - Vital Signs Vital signs: Vital Signs Temp 97.9 F 12/11/18 07:33 Pulse 62 12/11/18 07:38 Resp 16 12/11/18 07:33 BP 138/67 12/11/18 07:33 Pulse Ox 100 12/11/18 07:33 Intake & Output 12/10/18 12/11/18 12/11/18 18:59 06:59 18:59 Intake Total 725 200 Output Total 1320 720 Balance -595 -520 Weight 103.5 kg 102.5 kg Intake: Oral 725 200 Output: Urine 1320 720 Uretheral (Burrell) 1320 720 Other: Voiding Method Indwelling Catheter Indwelling Catheter - Constitutional General appearance: Present: cooperative, no acute distress, obese - Respiratory Details: Lungs sounds diminished bilaterally. Respirations even, nonlabored. Currently on 2 L nasal cannula with oxygen saturation 99%. Only able to achieve 500 mL on his incentive spirometry with poor effort. - Cardiovascular Details: S1, S2 present. Regular rate and rhythm, sinus rhythm on telemetry. Sternum stable. Palpable peripheral pulses bilaterally. Bilateral foot edema present without leg edema. Zi wraps present to bilateral lower extremities. Bilateral lower extremity SCDs present. - Gastrointestinal Gastrointestinal Comment(s): Abdomen soft, nontender, nondistended. Active bowel sounds 4 quadrants. Tolerating diet minimally. Positive bowel movement 12/09. - Genitourinary Genitourinary Comment(s): Burrell present draining clear yellow urine, output 975 mL overnight. - Integumentary Integumentary Comment(s): Skin is warm and dry. Anterior chest incision well healed. Scattered blistered areas to his bilateral lower extremities with scabbing, healing well. Lateral malleolus blister healing, no drainage this morning. - Neurologic Neurologic: Present: CNII-XII intact - Musculoskeletal Musculoskeletal: Present: generalized weakness, strength equal bilaterally - Psychiatric Psychiatric Comment(s): Cooperative with treatment today. Appears depressed. Psychiatric: Present: A&O x's 3 - Allied health notes Allied health notes reviewed: nursing - Labs CBC & Chem 7: 12/09/18 07:02 12/11/18 06:23 Labs: Abnormal Lab Results - Last 24 Hours (Table) 12/10/18 12/10/18 12/10/18 Range/Units 12:27 18:11 20:49 Sodium (137-145) mmol/L Chloride (98-107) mmol/L Carbon Dioxide (22-30) mmol/L BUN (9-20) mg/dL Glucose (74-99) mg/dL POC Glucose (mg/dL) 182 H 154 H 200 H (75-99) mg/dL 12/11/18 12/11/18 Range/Units 06:23 06:59 Sodium 135 L (137-145) mmol/L Chloride 97 L (98-107) mmol/L Carbon Dioxide 35 H (22-30) mmol/L BUN 54 H (9-20) mg/dL Glucose 122 H (74-99) mg/dL POC Glucose (mg/dL) 170 H (75-99) mg/dL Microbiology - Last 24 Hours (Table) 12/08/18 11:55 Blood Culture - Preliminary Blood No Growth after 48 hours Assessment and Plan Assessment: 1. Acute lower extremity cellulitis, fever, leukocytosis, wound culture positive for pseudomonas aeruginosa and Enterobacter cloacae 2. History of severe eccentric mitral valve regurgitation, severely calcified mitral annulus, torn chordae to the P1 posterior leaflet, status post complex mitral valve repair on 10/31/2018 3. History of coronary artery disease with recent drug-eluting stent placed to his left anterior descending coronary artery on 09/24/2018 4. Chronic diastolic heart failure 5. Hypertension 6. Hyperlipidemia 7. Chronic kidney disease stage III with a baseline creatinine of 1.5-2.0 8. Diabetes mellitus type 2, with peripheral neuropathy 9. Anemia of chronic kidney disease 10. Moderate chronic obstructive pulmonary disease 11. Obstructive sleep apnea without home CPAP use 12. Pulmonary hypertension 13. Obesity 14. Osteoarthritis 15. History of tobacco dependence, previous pipe 16. History of paroxysmal atrial fibrillation, remains in sinus rhythm 17. History of transaminitis, resolved Plan: 1. Continue to optimize with medical therapy with aspirin, Plavix, statin, and beta sun. Amiodarone per cardiology. 2. Avoid nephrotoxic agents. 3. Diuresis management per nephrology. Currently on Lasix 40 mg IV daily. Per nephrology, patient should be discharged on oral lasix twice daily for a few days then decreased to daily. Diamox initiated by nephrology for 3 days. 4. Increase activity as tolerated. PT/OT following. Patient needs maximum encouragement, patient is lifting his legs for dressing changes and did participate with PT/OT yesterday. 5. Antibiotic management per infectious disease. Wound care recommendations per infectious disease. 6. Wean O2 as tolerated. Encourage use of his incentive spirometry every hour while awake. 7. Continue to reinforce open heart discharge instructions. Shower daily, no lifting pushing and pulling anything greater than 10 pounds or jug of milk for 12 weeks. 8. Pain control per primary care services. Recommend increasing Neurontin as pain appears neuropathic. 9. GI/DVT prophylaxis. 10. When the patient is not ambulating or sitting up for meals he is to have his legs elevated higher than the level of his heart 6-8 inches. 11. Medical management per primary care service. May discharge back to [facility] from cardiothoracic standpoint when OK with other services, may need assisted care. Time with Patient: Greater than 30
[2018-12-11 10:51] LABS: Anisocytosis Slight; Basophils # (A) 0.2 k/uL (0-0.2); Basophils % (A) 2 %; Eosinophils # (A) 0.5 k/uL (0-0.7); Eosinophils % (A) 5 %; HCT 25.3 % (39.0-53.0); HGB 7.6 gm/dL (13.0-17.5); Hypochromasia Marked; Lymphocytes # (A) 0.5 k/uL (1.0-4.8); Lymphocytes % (A) 5 %; MCV 100.2 fL (80.0-100.0); Macrocytosis Moderate; Monocytes # (A) 0.4 k/uL (0-1.0); Monocytes % (A) 4 %; Neutrophils % (A) 82 %; Platelet Count 367 k/uL (150-450); Poikilocytosis Slight; RBC 2.52 m/uL (4.30-5.90); RDW 18.2 % (11.5-15.5); WBC 9.7 k/uL (3.8-10.6)
[2018-12-11 12:03] LABS: Glucose,Whole Blood 181 mg/dL (75-99)
--- NOTE | 2018-12-11 14:06 | P.PN ---
Subjective Patient is seen in follow-up for acute kidney injury on chronic kidney disease. Patient has chronic kidney disease stage III with baseline creatinine near 1.1- 1.5. Renal function is improved since admission. Hypotension has resolved. On lasix 40 mg IV once daily. Nonoliguric. No chest pain or shortness of breath. Feels weak. Vital signs are stable. General: The patient appeared well nourished and normally developed. HEENT: Head exam is unremarkable. Neck is without jugular venous distension. LUNGS: Lungs are clear to auscultation and percussion. Breath sounds decreased. HEART: Rate and Rhythm are regular. First and second heart sounds normal. No murmurs, rubs or gallops. ABDOMEN: Abdominal exam reveals normal bowel sounds. Non-tender and non- distended. No evidence of peritonitis. EXTREMITITES: 1+ edema. No obvious drainage. Objective - Vital Signs Vital signs: Vital Signs Temp 97.9 F 12/11/18 07:33 Pulse 64 12/11/18 11:18 Resp 16 12/11/18 07:33 BP 138/67 12/11/18 07:33 Pulse Ox 100 12/11/18 07:33 Intake & Output 12/10/18 12/11/18 12/11/18 18:59 06:59 18:59 Intake Total 725 200 200 Output Total 1320 720 Balance -595 -520 200 Weight 103.5 kg 102.5 kg Intake: Oral 725 200 200 Output: Urine 1320 720 Uretheral (Burrell) 1320 720 Other: Voiding Method Indwelling Catheter Indwelling Catheter Indwelling Catheter - Labs CBC & Chem 7: 12/11/18 06:23 12/11/18 06:23 Labs: Abnormal Lab Results - Last 24 Hours (Table) 12/10/18 12/10/18 12/11/18 Range/Units 18:11 20:49 06:23 RBC (4.30-5.90) m/uL Hgb (13.0-17.5) gm/dL Hct (39.0-53.0) % MCV (80.0-100.0) fL MCHC (31.0-37.0) g/dL RDW (11.5-15.5) % Neutrophils # (1.3-7.7) k/uL Lymphocytes # (1.0-4.8) k/uL Sodium 135 L (137-145) mmol/L Chloride 97 L (98-107) mmol/L Carbon Dioxide 35 H (22-30) mmol/L BUN 54 H (9-20) mg/dL Glucose 122 H (74-99) mg/dL POC Glucose (mg/dL) 154 H 200 H (75-99) mg/dL 12/11/18 12/11/18 12/11/18 Range/Units 06:23 06:59 11:52 RBC 2.52 L (4.30-5.90) m/uL Hgb 7.6 L (13.0-17.5) gm/dL Hct 25.3 L (39.0-53.0) % MCV 100.2 H (80.0-100.0) fL MCHC 30.0 L (31.0-37.0) g/dL RDW 18.2 H (11.5-15.5) % Neutrophils # 8.0 H (1.3-7.7) k/uL Lymphocytes # 0.5 L (1.0-4.8) k/uL Sodium (137-145) mmol/L Chloride (98-107) mmol/L Carbon Dioxide (22-30) mmol/L BUN (9-20) mg/dL Glucose (74-99) mg/dL POC Glucose (mg/dL) 170 H 181 H (75-99) mg/dL Microbiology - Last 24 Hours (Table) 12/08/18 11:55 Blood Culture - Preliminary Blood No Growth after 48 hours Assessment and Plan Plan: Assessment: 1. Acute kidney injury mostly prerenal secondary to cardiorenal syndrome. Renal function has improved since admission. Creatinine 1.19 today. UA is quite benign. No evidence of hydronephrosis on ultrasound from last month. 2. Chronic kidney disease stage III. Baseline creatinine near 1.1-1.5. 3. Volume overload. Currently on IV Lasix. Improved. 4. Coronary artery disease status post stenting. 5. 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 6. Insulin-dependent diabetes mellitus. 7. Lower extremity cellulitis maintained on IV antibiotics. Wound culture positive for Pseudomonas and Enterobacter. 8. Anemia of chronic kidney disease. Iron deficiency noted. Maintained on Aranesp. S/p 3 doses of IV iron. 9. Metabolic alkalosis secondary to diuresis. Maintained on Diamox right now. Plan: Maintain IV Lasix 40 mg daily. I will decrease dose of Diamox to twice daily. Continue to monitor renal function and urine output. Repeat electrolytes in the morning. Patient is refusing to remove Burrell catheter at this time.
--- NOTE | 2018-12-11 16:41 | P.PN ---
Subjective Progress Note Date: 12/11/18 Principal diagnosis: This is a 73-year-old male with a past medical history of multiple medical problems with recent cardiac surgery including mitral valve replacement, stent placement, myocardial infarction, pulmonary hypertension and was recently admitted for an increase in weakness with swelling and blistering of the lower legs with fever and is being closely monitored. Patient is sitting up in the chair with legs elevated sleeping but easily arousable. Family is at the bedside. Bilateral lower extremities are wrapped with Zi wraps and elevated at this time. Extremely guarded prognosis 12/03/2018 Patient is sitting up in the chair sleeping but arousable. Patient states that he is very lethargic and continues to nod off while talking. Patient is currently in the ICU and is being closely monitored. Patient lower extremities are down and not currently being elevated. Patient states that he does when he is lying in bed. Zi wraps dry and intact with obvious swelling of the bilateral lower extremities. Heart hugger is in place. patient denies any chest pain or palpitations but does state that he is short of breath with just about any movement to or from the chair. Patient has poor appetite but denies any nausea or vomiting. Patient has a low grade temp this morning of 99.1F and is being closely monitored. ID is following as well as many other consultants. Prognosis is guarded. 12/04/2018 Patient is sitting up in the chair with bilateral legs elevated in no acute distress. Patient states that he is having worsening discomfort in the bilateral lower extremities especially his feet. Discussed with the patient in detail about keeping the legs elevated to help minimize the swelling and discomfort. Zi wraps along with Silvadene cream were being applied by nursing staff at the time of the visit. Multiple ulcerations lower extremities bilaterally are present with slight improvement to the ulcerations of the shins with some scabbing noted. Infectious disease is following closely for antibiotic coverage as well as wound care therapy. Patient states he is not eating much but has been attempting to eat more to build up his strength. Patient states that he still having some shortness of breath with exertion. Discussed with the patient at length about the importance of using incentive spirometer at the bedside at least 10 times per hour while awake. Patient denies any chest pain or palpitations at this time. Patient states that he sti ll very fatigued and feels exhausted. Multiple medical consultations are following closely. Guarded prognosis. 12/05/2018 Patient is sitting up in the chair in no acute distress with bilateral legs elevated with daughter at the bedside. Patient denies any shortness of breath, chest pain, or palpitations at this time. Patient denies any nausea or vomiting and is tolerating foods. Patient is a very picky eater and family at the bedside is bringing in protein shakes along with yogurts and other foods to encourage his increase in oral intake. Patient continues to have bilateral lower extremity pain along with bilateral foot pain that he states is not al lowing him to be able to get up and walk and is frustrated. A change in pain medications has been addressed. Discussed with the patient about avoiding sleepiness due to pain medication usage but attempting to find the right dose to help with pain control. Discussed with the patient at length about using the incentive spirometer at least 10 times per hour while awake especially due to the inability to get up and walk at this time. Spoke to the daughter about encouraging him to stay awake during the day by opening the window shades and staying out of bed. Patient has been afebrile. Patient is awaiting a transfer out of the ICU when a bed becomes available. Guarded prognosis. 12/06/2018 Patient is sitting up in the chair in no acute distress and continues to state that he is having a lot of pain and discomfort in his bilateral lower extremities especially his feet. Patient was moved out of the ICU and is being monitored closely. Per nursing staff the patient has been sitting in his chair all night and most of the day and nods off and on all day out of sleep. Patient was refusing to work with PT/OT due to the discomfort of lower extremities. Discussed with the patient at length today about getting up and working with PT OT as this is a very important part of his treatment plan and overall prognosis. Patient does have pain medications ordered and is taking. Spoke with nursing staff today about cautiously giving narcotics as he continues to be quite lethargic all day. No family is at the bedside today. Discussed with the patient at length today about continuing to use his incentive spirometer and patient stated that he is using the incentive spirometer when he can reach it as it was on the other side of the table this morning. Maximum was 750 today on the incentive spirometer. Patient continues to need intense encouragement to do much of anything. Guarded prognosis. 12/07/2018 Patient is lying in bed with bilateral legs elevated up on pillows, SCDs present along with Zi wraps to minimize swelling. Patient continues to state that he has a lot of pain and discomfort in his legs and feet. Patient remains lethargic but easily arousable. Per nursing staff and the patient, patient was up today with physical therapy from the chair to the bed. Continued encouragement of physical therapy as well as incentive spirometer use. Chest x- ray yesterday shows improved pulmonary venous congestion with persistent cardiomegaly with small left-sided pleural effusion with probable underlying atelectasis. Spoke with the nursing staff about continuing to encourage incentive spirometer use and getting up with physical therapy. Multiple medical consultations are following. Guarded prognosis. 12/10/2018 Patient is sitting up in bed in no acute distress. Daughter at the bedside. Discussed with the patient at length today about working with PT/OT as he has been refusing due to lower extremity swelling and pain. Per the patient he will work with them today as his daughter continues to stress the importance of building up strength. Patient is still having increased amounts of pain and is upset because he feels he isn't getting enough pain medications. Discussed with the patient about his increase lethargy and fatigue when taking narcotics. P atient denies any chest pain or palpitations at this time. Patient is afebrile. Patient states he does have some periods of shortness of breath and is still requiring oxygen at 2 L via nasal cannula. Discussed with the patient about the importance of incentive spirometer use as well. 12/11/2018 Patient is sitting up in bed sleeping but arousable. is at the bedside. states that PT/OT have not been in to work with the patient today. Patient continues to be lethargic but arousable. Patient continues to complain about leg pain and falls asleep easily after making these comments. When discussing with the today about possible discharge plans she stated they would like to discuss with case management and social work about options as the family has decided they did not want to return to [facility] at this time. Infectious disease is following closely. Patient will continue on IV antibiotics at this time in the form of cefepime and may transition to oral antibiotics per infectious disease recommendations. Will continue to monitor closely. Encourage the patient to continue using incentive spirometer at least 10 times per hour while awake and also mentioned to the about the importance of continuing to use incentive spirometer and working with PT/OT daily. Objective - Vital Signs Vital signs: Vital Signs Temp 97.9 F 12/11/18 07:33 Pulse 64 12/11/18 11:18 Resp 16 12/11/18 07:33 BP 138/67 12/11/18 07:33 Pulse Ox 100 12/11/18 07:33 Intake & Output 12/10/18 12/11/18 12/11/18 18:59 06:59 18:59 Intake Total 725 200 200 Output Total 1320 720 Balance -595 -520 200 Weight 103.5 kg 102.5 kg Intake: Oral 725 200 200 Output: Urine 1320 720 Uretheral (Burrell) 1320 720 Other: Voiding Method Indwelling Catheter Indwelling Catheter Indwelling Catheter - Exam Gen: This is a 73-year-old male sitting up in bed in no acute distress. Vital signs are stable. Temp is 97.9 F oral, pulse is 86, respirations are 16, blood pressure is 138/67, oxygen saturation is 100 % on 2 L nasal cannula HEENT: Head is atraumatic, normocephalic. Pupils equal, round. Sclerae is anicteric. NECK: Supple. No JVD. No lymphadenopathy. No thyromegaly. LUNGS: Diminished breath sounds at the bases. Bilateral scattered rhonchi noted. No intercostal retractions. HEART: S1 and S2 are muffled , ejection systolic murmur ABDOMEN: Soft. Obese. Bowel sounds are present. No masses. No tenderness. EXTREMITIES: Mild pedal edema. Slightly improved. Bilateral lower extremity swelling. Zi wrap is intact. No calf tenderness. Bilateral lower extremity tenderness upon palpation. Bilateral lower extremities are elevated on pillows NEUROLOGICAL: Patient is asleep but arousable, alert and oriented x3. Cranial nerves 2 through 12 are grossly intact. SKIN: Blistering and ulcers noted to bilateral lower extremities and bilateral feet with redness and swelling noted of the surrounding tissue, swelling has improved. Also noted the left great toe ulcer with a scab and has improved - Labs CBC & Chem 7: 12/11/18 06:23 12/11/18 06:23 Labs: Abnormal Lab Results - Last 24 Hours (Table) 12/10/18 12/10/18 12/11/18 Range/Units 18:11 20:49 06:23 RBC (4.30-5.90) m/uL Hgb (13.0-17.5) gm/dL Hct (39.0-53.0) % MCV (80.0-100.0) fL MCHC (31.0-37.0) g/dL RDW (11.5-15.5) % Neutrophils # (1.3-7.7) k/uL Lymphocytes # (1.0-4.8) k/uL Sodium 135 L (137-145) mmol/L Chloride 97 L (98-107) mmol/L Carbon Dioxide 35 H (22-30) mmol/L BUN 54 H (9-20) mg/dL Glucose 122 H (74-99) mg/dL POC Glucose (mg/dL) 154 H 200 H (75-99) mg/dL 12/11/18 12/11/18 12/11/18 Range/Units 06:23 06:59 11:52 RBC 2.52 L (4.30-5.90) m/uL Hgb 7.6 L (13.0-17.5) gm/dL Hct 25.3 L (39.0-53.0) % MCV 100.2 H (80.0-100.0) fL MCHC 30.0 L (31.0-37.0) g/dL RDW 18.2 H (11.5-15.5) % Neutrophils # 8.0 H (1.3-7.7) k/uL Lymphocytes # 0.5 L (1.0-4.8) k/uL Sodium (137-145) mmol/L Chloride (98-107) mmol/L Carbon Dioxide (22-30) mmol/L BUN (9-20) mg/dL Glucose (74-99) mg/dL POC Glucose (mg/dL) 170 H 181 H (75-99) mg/dL Microbiology - Last 24 Hours (Table) 12/08/18 11:55 Blood Culture - Preliminary Blood No Growth after 72 hours Assessment and Plan Assessment: Acute bilateral leg cellulitis with sepsis, present on admission pseudomonas aeruginosa as well as gram-negative bacilli; infectious disease if following. Patient is currently on IV cefepime Diffuse generalized weakness with possible myopathy, present on admission hypotension possible secondary to hypovolemia Increased WBC Anemia of chronic disease Hyponatremia Change in mental status, acute metabolic encephalopathy, multifactorial acute on chronic Increased creatinine with chronic kidney disease stage III; current creatinine is 1.19 Elevated AST, ALT, possibly hepatitis, improved Troponin 0.043, indeterminate Congestive heart failure with acute on chronic diastolic dysfunction, recent mitral valve replacement for mitral regurgitation History of coronary artery disease/stent History pulmonary hypertension Hyperlipidemia History of gastroesophageal reflux disease Diabetes mellitus type 2 with diabetic nephropathy Gait dysfunction History of obstructive sleep apnea history of degenerative joint disease Full code Recommendations and discussion: Recommend to continue current medications, management, and symptomatic treatment. Multiple medical consultations are following. Continue to encourage the patient to use the incentive spirometer at least 10 times every hour while awake. Discussed with the patient about PT/OT and encouraged patient to continue to work with them for strength and mobility. at the bedside states that PT/OT have not been in yet today. Case management and [employer] social worker following closely as the states that family has decided they do not want to return to [facility] and would like to review other options. Will continue to monitor vital signs and labs closely. Due to multiple complex medical issues overall prognosis is extremely guarded. Further recommendations to follow.
[2018-12-11 17:00] LABS: Glucose,Whole Blood 264 mg/dL (75-99)
[2018-12-11] MEDS: CHOLECALCIFEROL 1,000 UNIT TAB PO SCH (17:24)
[2018-12-11] MEDS: FERROUS SULFATE 325 MG TAB PO SCH (17:24)
[2018-12-11] MEDS: ASPIRIN 81 MG PO SCH (17:24)
[2018-12-11] MEDS: MULTIVITAMINS, THERA 1 EACH TAB PO SCH (17:24)
[2018-12-11] MEDS: LIPASE 5,000/PROTEASE 17,000/AMYLASE 24,000 PO SCH (17:25)
[2018-12-11 20:35] LABS: Glucose,Whole Blood 276 mg/dL (75-99)
[2018-12-11] MEDS: INSULIN DETEMIR (LEVEMIR) 100 UNIT/ML SYR SQ SCH (21:01)
[2018-12-11] MEDS: SENNOSIDES-DOCUSATE SODIUM 1 EACH TAB PO SCH (21:03)
[2018-12-11] MEDS: ESCITALOPRAM 10 MG TAB PO SCH (21:03)
[2018-12-11] MEDS: ATORVASTATIN 40 MG TAB PO SCH (21:03)
--- NOTE | 2018-12-11 23:15 | P.PN ---
Subjective Progress Note Date: 12/11/18 73-year-old male presents to Hospital from the extended care facility where he has been recovering status post his extensive mitral valve repair for his mitral stenosis. There was also repair of the ruptured chordae tendon 9. Prior to the finding of severe mitral stenosis he did have coronary disease and a percutaneous intervention occurred with stenting of a drug-eluting type. Afterward the open heart procedure occurred. Due to his weakness has been recovering at the extended care facility when it was noticed that he had the rapid worsening of the lower extremities with the increasing amount of edema the tissue started to blister he developed a fever and was transferred to our facil ity. Due to the lower actually wounds and concerns to infection especially in the face of his recent surgical interventions. Consultation was requested. Patient is feeling slightly better he has identities less short of breath the lower extremities are feeling somewhat better they are less uncomfortable 12/03/2018 the patient is feeling somewhat better. Cultures of the leg cultures have been finalized and Pseudomonas and Enterobacter isolated. Patient will likely be going to rehabilitation and does have IV access. December 04 2018 patient still very weak being evaluated for rehab, patient is short of breath and does not feel well. 12/07/2018 feeling better less SOB legs improved with wraps 12/10/2018 patient has been a bit more cooperative today. Was able to raise his legs to have his legs wrapped. Still very weak plans for transfer to rehab. 12/11/2018 the patient today was certainly more cooperative. Some assistance is able to stand at the bedside into events. His legs may be problematic but is improving. We're working with the discharge team determine the best plan for his discharge. Objective - Vital Signs Vital signs: Vital Signs Temp 98.1 F 12/11/18 15:00 Pulse 58 L 12/11/18 15:00 Resp 15 12/11/18 15:00 BP 129/67 12/11/18 15:00 Pulse Ox 99 12/11/18 15:00 Intake & Output 12/11/18 12/11/18 12/12/18 06:59 18:59 06:59 Intake Total 200 200 Output Total 720 900 Balance -520 -700 Weight 102.5 kg Intake: Oral 200 200 Output: Urine 720 900 Uretheral (Burrell) 720 Other: Voiding Method Indwelling Catheter Indwelling Catheter - Exam HEENT: Anicteric conjunctiva are pink and moist nasal mucosa grossly intact without significant lesions, there is no thrush. Poor dentition Neck: The neck is supple without significant lymphadenopathy or thyromegaly. Lungs: Symmetrical bilateral air entry basilar crackles are heard. Extremities no bronchial sounds Heart: Irregular audible S1 and S2 2/6 systolic murmur left sternal border PMI nondisplaced Abdomen: Positive bowel sounds soft and nontender without palpable masses or organomegaly. There was no guarding or rebound. Extremities: The upper extremities have excellent pulses they are symmetric, no significant petechiae or telangiectasia. No splinter hemorrhages were noted. The lower extremities the improved bilateral lower extremity edema is more evidence of blistering to the left leg into the right. There is evidence of the improved erythema the left leg is also mildly tender there is no purulent drainage at this time. Neuro: Awake alert oriented to person place and time. There are no acute new gross focal sensory motor deficits. - Labs CBC & Chem 7: 12/11/18 06:23 12/11/18 06:23 Labs: Abnormal Lab Results - Last 24 Hours (Table) 12/11/18 12/11/18 12/11/18 Range/Units 06:23 06:23 06:59 RBC 2.52 L (4.30-5.90) m/uL Hgb 7.6 L (13.0-17.5) gm/dL Hct 25.3 L (39.0-53.0) % MCV 100.2 H (80.0-100.0) fL MCHC 30.0 L (31.0-37.0) g/dL RDW 18.2 H (11.5-15.5) % Neutrophils # 8.0 H (1.3-7.7) k/uL Lymphocytes # 0.5 L (1.0-4.8) k/uL Sodium 135 L (137-145) mmol/L Chloride 97 L (98-107) mmol/L Carbon Dioxide 35 H (22-30) mmol/L BUN 54 H (9-20) mg/dL Glucose 122 H (74-99) mg/dL POC Glucose (mg/dL) 170 H (75-99) mg/dL 12/11/18 12/11/18 12/11/18 Range/Units 11:52 16:48 20:24 RBC (4.30-5.90) m/uL Hgb (13.0-17.5) gm/dL Hct (39.0-53.0) % MCV (80.0-100.0) fL MCHC (31.0-37.0) g/dL RDW (11.5-15.5) % Neutrophils # (1.3-7.7) k/uL Lymphocytes # (1.0-4.8) k/uL Sodium (137-145) mmol/L Chloride (98-107) mmol/L Carbon Dioxide (22-30) mmol/L BUN (9-20) mg/dL Glucose (74-99) mg/dL POC Glucose (mg/dL) 181 H 264 H 276 H (75-99) mg/dL Microbiology - Last 24 Hours (Table) 12/08/18 11:55 Blood Culture - Preliminary Blood No Growth after 72 hours Laboratory Results WBC 9.7 k/uL (3.8-10.6) 12/11/18 06:23 RBC 2.52 m/uL (4.30-5.90) L 12/11/18 06:23 Hgb 7.6 gm/dL (13.0-17.5) L 12/11/18 06:23 Hct 25.3 % (39.0-53.0) L 12/11/18 06:23 MCV 100.2 fL (80.0-100.0) H 12/11/18 06:23 MCH 30.0 pg (25.0-35.0) 12/11/18 06:23 MCHC 30.0 g/dL (31.0-37.0) L 12/11/18 06:23 RDW 18.2 % (11.5-15.5) H 12/11/18 06:23 Plt Count 367 k/uL (150-450) 12/11/18 06:23 Neutrophils % 82 % 12/11/18 06:23 Lymphocytes % 5 % 12/11/18 06:23 Monocytes % 4 % 12/11/18 06:23 Eosinophils % 5 % 12/11/18 06:23 Basophils % 2 % 12/11/18 06:23 Neutrophils # 8.0 k/uL (1.3-7.7) H 12/11/18 06:23 Lymphocytes # 0.5 k/uL (1.0-4.8) L 12/11/18 06:23 Monocytes # 0.4 k/uL (0-1.0) 12/11/18 06:23 Eosinophils # 0.5 k/uL (0-0.7) 12/11/18 06:23 Basophils # 0.2 k/uL (0-0.2) 12/11/18 06:23 Hypochromasia Marked 12/11/18 06:23 Poikilocytosis Slight 12/11/18 06:23 Anisocytosis Slight 12/11/18 06:23 Macrocytosis Moderate 12/11/18 06:23 PT 12.2 sec (9.0-12.0) H 11/29/18 13:55 INR 1.2 (<1.2) H 11/29/18 13:55 APTT 26.7 sec (22.0-30.0) 11/29/18 13:55 Sodium 135 mmol/L (137-145) L 12/11/18 06:23 Potassium 4.8 mmol/L (3.5-5.1) 12/11/18 06:23 Chloride 97 mmol/L (98-107) L 12/11/18 06:23 Carbon Dioxide 35 mmol/L (22-30) H 12/11/18 06:23 Anion Gap 3 mmol/L 12/11/18 06:23 BUN 54 mg/dL (9-20) H 12/11/18 06:23 Creatinine 1.19 mg/dL (0.66-1.25) 12/11/18 06:23 Est GFR (CKD-EPI)AfAm 69 (>60 ml/min/1.73 sqM) 12/11/18 06:23 Est GFR (CKD-EPI)NonAf 60 (>60 ml/min/1.73 sqM) 12/11/18 06:23 Glucose 122 mg/dL (74-99) H 12/11/18 06:23 POC Glucose (mg/dL) 276 mg/dL (75-99) H 12/11/18 20:24 POC Glu Night Stocker ID Maddie Enrique 12/11/18 20:24 Lactic Ac Sepsis Rflx Y 11/29/18 14:30 Plasma Lactic Acid Guy 1.5 mmol/L (0.7-2.0) 12/08/18 11:55 Calcium 8.8 mg/dL (8.4-10.2) 12/11/18 06:23 Magnesium 2.4 mg/dL (1.6-2.3) H 12/06/18 07:32 Iron 18 ug/dL (65-175) L 11/29/18 13:55 TIBC 298 ug/dL (228-460) 11/29/18 13:55 Iron Saturation 6.04 (15.00-50.00) L 11/29/18 13:55 Ferritin 1042.1 ng/mL (22.0-322.0) H 11/29/18 13:55 Total Bilirubin 1.0 mg/dL (0.2-1.3) 12/06/18 07:32 AST 43 U/L (17-59) 12/06/18 07:32 ALT 49 U/L (21-72) 12/06/18 07:32 Alkaline Phosphatase 183 U/L (38-126) H 12/06/18 07:32 Creatine Kinase 51 U/L (55-170) L 11/29/18 13:55 Troponin I 0.029 ng/mL (0.000-0.034) 11/30/18 03:01 C-Reactive Protein 327.4 mg/L (<10.0) H 11/29/18 13:55 NT-Pro-B Natriuret Pep 86727 pg/mL 11/29/18 13:55 Total Protein 5.9 g/dL (6.3-8.2) L 12/06/18 07:32 Albumin 2.9 g/dL (3.5-5.0) L 12/06/18 07:32 TSH 3.960 mIU/L (0.465-4.680) 11/29/18 13:55 Urine Color Yellow 11/29/18 14:05 Urine Appearance Clear (Clear) 11/29/18 14:05 Urine pH 5.0 (5.0-8.0) 11/29/18 14:05 Ur Specific [place] 1.018 (1.001-1.035) 11/29/18 14:05 Urine Protein Trace (Negative) H 11/29/18 14:05 Urine Glucose (UA) Negative (Negative) 11/29/18 14:05 Urine Ketones Negative (Negative) 11/29/18 14:05 Urine Blood Negative (Negative) 11/29/18 14:05 Urine Nitrite Negative (Negative) 11/29/18 14:05 Urine Bilirubin Negative (Negative) 11/29/18 14:05 Urine Urobilinogen <2.0 mg/dL (<2.0) 11/29/18 14:05 Ur Leukocyte Esterase Negative (Negative) 11/29/18 14:05 Microbiology 12/08/18 11:55 Blood Blood Culture - Preliminary No Growth after 72 hours 11/29/18 13:55 Blood Blood Culture - Final No Growth after 144 hours 11/29/18 22:30 Ankle - Left Gram Stain - Final 11/29/18 22:30 Ankle - Left Wound Culture - Final Pseudomonas aeruginosa Enterobacter cloacae 11/29/18 22:30 Urine,Clean Catch Urine Culture - Final Assessment and Plan (1) Fever Current Visit: Yes Status: Acute Code(s): R50.9 - FEVER, UNSPECIFIED SNOMED Code(s): 879670486 (2) MIGUEL ANGEL (acute kidney injury) Current Visit: No Status: Acute Code(s): N17.9 - ACUTE KIDNEY FAILURE, UNSPECIFIED SNOMED Code(s): 37854140 (3) CAD (coronary artery disease) Current Visit: Yes Status: Acute Code(s): I25.10 - ATHSCL HEART DISEASE OF [place] CORONARY ARTERY W/O ANG PCTRS SNOMED Code(s): 21939925 (4) Cellulitis of both lower extremities Narrative/Plan: 73-year-old male presents to Hospital from the extended care facility where he is receiving care after his open heart procedure for repair of his severe mitral valve stenosis which was done by the mitral valve repair as well as cordite and any repair. In September he had undergone his percutaneous intervention with stenting in drug-eluting stents. The patient had the significant increasing amount of edema to the lower extremity such that he developed multiple blisters left greater than right. Silvadene and wraps are applied to help with the edema and help with the tissue. Antibiotic therapy with Zosyn and vancomycin has been initiated given his significant level of illness at the time of his presentation. Cultures are process and will de-escalate antibiotics as cultures become available. Elevation of the limbs well at rest is very important in conjunction with the current wraps her be applied. The temperature maximum was 100.2 now the fever has resolved. His acute renal failure seems to be improving and his leukocytosis will be monitored. 12/03/2018 patient is feeling better has eaten his meal today without great difficulties. His appetite somewhat poor. Wound culture is finalized pseudomonas as well as Enterobacter although they are susceptible to fluoroquinolones the patient is on amiodarone which does not allow the utilization of quinolone therapy. We'll be able to streamline antibiotic therapy to cefepime 2 gm IVPB q12 hours when transferring to [facility] 12/04/2018 patient week and is really quite miserable. Physical therapy is working with him to try to improve his status. We transferred to rehab. He can receive his intravenous antibiotic therapy of cefepime there. Continue with the local wraps and elevation to the lower extremities which has allowed some improvement of the edema blistering is starting to improve. 12/07/2108 some improvement noted doing well with cefepime will continue for a few more days 12/10/2018 is having some further improvement. Still having some pain. Working with the tool planner as to antibiotics at the extended care facility. We'll inquire of tramadol can be added for some further pain control. 12/01/2018 the patient is showing some improvement. With assistance is able to stand at the bedside. Evaluations have occurred and should be transferred to the rehab facility in the near future. The family is trying to determine where their primary facility will be. Is tolerating the antibiotic therapy of cefepime well, cannot have ciprofloxacin due to the fact he is on amiodarone. Local wound care continues with some improvement limbs. Current Visit: Yes Status: Acute Code(s): L03.115 - CELLULITIS OF RIGHT LOWER LIMB; L03.116 - CELLULITIS OF LEFT LOWER LIMB SNOMED Code(s): 641126943
[2018-12-12] MEDS: Acetaminophen-Codeine 300-30mg TAB PO PRN ×2 (04:59→19:34)
[2018-12-12 07:10] LABS: Glucose,Whole Blood 135 mg/dL (75-99)
[2018-12-12 07:26] LABS: Anisocytosis Slight; Basophils # (A) 0.1 k/uL (0-0.2); Basophils % (A) 2 %; Eosinophils # (A) 0.5 k/uL (0-0.7); Eosinophils % (A) 6 %; HCT 23.3 % (39.0-53.0); HGB 7.2 gm/dL (13.0-17.5); Hypochromasia Marked; Lymphocytes # (A) 0.5 k/uL (1.0-4.8); Lymphocytes % (A) 6 %; MCH 30.2 pg (25.0-35.0); MCV 97.5 fL (80.0-100.0); Macrocytosis Slight; Mean Platelet Volume 7.3; Monocytes # (A) 0.4 k/uL (0-1.0); Monocytes % (A) 5 %; Neutrophils # (A) 6.9 k/uL (1.3-7.7); Neutrophils % (A) 81 %; Platelet Count 340 k/uL (150-450); Poikilocytosis Slight; RBC 2.39 m/uL (4.30-5.90); RDW 18.4 % (11.5-15.5); WBC 8.5 k/uL (3.8-10.6)
[2018-12-12] MEDS: GABAPENTIN 100 MG CAP PO SCH ×2 (07:30→21:12)
[2018-12-12] MEDS: AMIODARONE 200 MG TAB PO SCH (07:30)
[2018-12-12] MEDS: CLOPIDOGREL 75 MG TAB PO SCH (07:30)
[2018-12-12] MEDS: HEPARIN SODIUM,PORCINE 5,000 UNIT/ML 1 ML VIAL SQ SCH ×3 (07:31→23:58)
[2018-12-12] MEDS: PANTOPRAZOLE 40 MG TABLET PO SCH (07:31)
[2018-12-12] MEDS: FUROSEMIDE 10 MG/ML 4 ML VIAL IV SCH (07:31)
[2018-12-12] MEDS: CEFEPIME 2 GM in SODIUM CHLORIDE 0.9% 100 ML IVPB SCH (07:31)
[2018-12-12] MEDS: INSULIN ASPART (NovoLOG) 100 UNIT/ML VIAL SQ SCH ×4 (07:32→21:11)
[2018-12-12] MEDS: acetaZOLAMIDE 250 MG TAB PO SCH (07:32)
[2018-12-12] MEDS: METOPROLOL TARTRATE 50 MG TAB PO SCH ×2 (07:33→21:12)
[2018-12-12 07:40] LABS: Calcium 8.6 mg/dL (8.4-10.2); Potassium 4.6 mmol/L (3.5-5.1)
[2018-12-12] MEDS: ALBUTEROL NEBULIZED 2.5 MG/3 ML INHALATION PRN ×2 (07:57→16:08)
[2018-12-12 12:00] LABS: Glucose,Whole Blood 191 mg/dL (75-99)
--- NOTE | 2018-12-12 12:26 | P.PN ---
Subjective Progress Note Date: 12/12/18 Principal diagnosis: Cellulitis of both lower extremities with positive wound culture showing Pseudomonas aeruginosa and Enterobacter cloacae, fever, acute kidney injury. Previous medical history of severe concentric mitral valve regurgitation with severely calcified mitral annulus status post complex mitral valve repair on 10/31/[address] Lozada, coronary artery disease with recent drug- eluting stent placed to the left anterior descending coronary artery in September 2018, chronic diastolic heart failure, hypertension, hyperlipidemia, type 2 diabetes mellitus with peripheral neuropathy and a preoperative hemoglobin A1c of 7%, chronic kidney disease with a baseline creatinine around 2, moderate chronic obstructive pulmonary disease with FEV1 of 54% of predicted value, obstructive sleep apnea without home CPAP use, pulmonary hypertension, obesity, previous tobacco dependence and postoperative transaminitis and paroxysmal atrial fibrillation. The patient is currently laying in bed in no acute distress. Alert and oriented today. Does state that pain to his bilateral lower extremities is slightly better. States breathing is better. Bilateral foot edema present without leg edema, zi wraps working well for compression, sores healing nicely. Remains in normal sinus rhythm, hemodynamically stable, excellent urine output with IV Lasix. Remains on cefepime per infectious disease. Patient is more participatory in his care, assisted with dressing changes by lifting his own legs, was standing at the bedside yesterday with PT/OT. Objective - Vital Signs Vital signs: Vital Signs Temp 97.6 F 12/12/18 07:00 Pulse 64 12/12/18 08:08 Resp 16 12/12/18 07:15 BP 148/70 12/12/18 07:00 Pulse Ox 99 12/12/18 07:00 Intake & Output 12/11/18 12/12/18 12/12/18 18:59 06:59 18:59 Intake Total 200 100 Output Total 900 1900 Balance -700 -1800 Weight 103.5 kg Intake: Oral 200 100 Output: Urine 900 1900 Other: Voiding Method Indwelling Catheter Toilet Toilet Indwelling Catheter Indwelling Catheter # Voids 1 - Constitutional General appearance: Present: cooperative, no acute distress, obese - Respiratory Details: Lungs sounds diminished bilaterally. Respirations even, nonlabored. Currently on 2 L nasal cannula with oxygen saturation 97%. Only able to achieve 500 mL on his incentive spirometry with poor effort. - Cardiovascular Details: S1, S2 present. Regular rate and rhythm, sinus rhythm on telemetry. Sternum stable. Palpable peripheral pulses bilaterally. Bilateral foot edema present without leg edema. Zi wraps present to bilateral lower extremities. Bilateral lower extremity SCDs present. - Gastrointestinal Gastrointestinal Comment(s): Abdomen soft, nontender, nondistended. Active bowel sounds 4 quadrants. Tolerating diet minimally. Positive bowel movement 12/09. - Genitourinary Genitourinary Comment(s): Burrell present draining clear yellow urine. - Integumentary Integumentary Comment(s): Skin is warm and dry. Anterior chest incision well healed. Scattered blistered areas to his bilateral lower extremities with scabbing, healing well. Lateral malleolus blister healing, no drainage this morning. - Neurologic Neurologic: Present: CNII-XII intact - Musculoskeletal Musculoskeletal Comment(s): Able to stand with 3 person assist. Musculoskeletal: Present: generalized weakness, strength equal bilaterally - Psychiatric Psychiatric: Present: A&O x's 3, appropriate affect, intact judgment & insight - Allied health notes Allied health notes reviewed: nursing - Labs CBC & Chem 7: 12/12/18 06:37 12/12/18 06:37 Labs: Abnormal Lab Results - Last 24 Hours (Table) 12/11/18 12/11/18 12/12/18 Range/Units 16:48 20:24 06:37 RBC 2.39 L (4.30-5.90) m/uL Hgb 7.2 L (13.0-17.5) gm/dL Hct 23.3 L (39.0-53.0) % RDW 18.4 H (11.5-15.5) % Lymphocytes # 0.5 L (1.0-4.8) k/uL Sodium (137-145) mmol/L Carbon Dioxide (22-30) mmol/L BUN (9-20) mg/dL Glucose (74-99) mg/dL POC Glucose (mg/dL) 264 H 276 H (75-99) mg/dL 12/12/18 12/12/18 12/12/18 Range/Units 06:37 07:08 11:58 RBC (4.30-5.90) m/uL Hgb (13.0-17.5) gm/dL Hct (39.0-53.0) % RDW (11.5-15.5) % Lymphocytes # (1.0-4.8) k/uL Sodium 136 L (137-145) mmol/L Carbon Dioxide 33 H (22-30) mmol/L BUN 46 H (9-20) mg/dL Glucose 123 H (74-99) mg/dL POC Glucose (mg/dL) 135 H 191 H (75-99) mg/dL Microbiology - Last 24 Hours (Table) 12/08/18 11:55 Blood Culture - Preliminary Blood No Growth after 72 hours Assessment and Plan Assessment: 1. Acute lower extremity cellulitis, fever, leukocytosis, wound culture positive for pseudomonas aeruginosa and Enterobacter cloacae 2. History of severe eccentric mitral valve regurgitation, severely calcified mitral annulus, torn chordae to the P1 posterior leaflet, status post complex mitral valve repair on 10/31/2018 3. History of coronary artery disease with recent drug-eluting stent placed to his left anterior descending coronary artery on 09/24/2018 4. Chronic diastolic heart failure 5. Hypertension 6. Hyperlipidemia 7. Chronic kidney disease stage III with a baseline creatinine of 1.5-2.0 8. Diabetes mellitus type 2, with peripheral neuropathy 9. Anemia of chronic kidney disease 10. Moderate chronic obstructive pulmonary disease 11. Obstructive sleep apnea without home CPAP use 12. Pulmonary hypertension 13. Obesity 14. Osteoarthritis 15. History of tobacco dependence, previous pipe 16. History of paroxysmal atrial fibrillation, remains in sinus rhythm 17. History of transaminitis, resolved Plan: 1. Continue to optimize with medical therapy with aspirin, Plavix, statin, and beta sun. Amiodarone per cardiology. 2. Avoid nephrotoxic agents. 3. Diuresis management per nephrology. 4. Increase activity as tolerated. PT/OT following. Patient needs maximum encouragement, patient is lifting his legs for dressing changes and did participate with PT/OT yesterday. 5. Antibiotic management per infectious disease. Wound care recommendations per infectious disease. 6. Wean O2 as tolerated. Encourage use of his incentive spirometry every hour while awake. 7. Continue to reinforce open heart discharge instructions. 8. Pain control per primary care services. 9. GI/DVT prophylaxis. 10. When the patient is not ambulating or sitting up for meals he is to have his legs elevated. 11. Medical management per primary care service. May discharge back to rehab from cardiothoracic standpoint when OK with other services. Discharge planning is in progress and patient will likely be discharged once family decides on a subacute rehab they will be happy with. 12. Will continue to see as needed. Time with Patient: Greater than 30
--- NOTE | 2018-12-12 14:26 | P.PN ---
Subjective Patient is seen in follow-up for acute kidney injury on chronic kidney disease. Patient has chronic kidney disease stage III with baseline creatinine near 1.1- 1.5. Renal function is improved since admission. Hypotension has resolved. On lasix 40 mg IV once daily. Nonoliguric. No chest pain or shortness of breath. Feels weak. Burrell catheter was removed this morning. Vital signs are stable. General: The patient appeared well nourished and normally developed. HEENT: Head exam is unremarkable. Neck is without jugular venous distension. LUNGS: Lungs are clear to auscultation and percussion. Breath sounds decreased. HEART: Rate and Rhythm are regular. First and second heart sounds normal. No murmurs, rubs or gallops. ABDOMEN: Abdominal exam reveals normal bowel sounds. Non-tender and non- distended. No evidence of peritonitis. EXTREMITITES: 1+ edema. No obvious drainage. Objective - Vital Signs Vital signs: Vital Signs Temp 97.6 F 12/12/18 07:00 Pulse 64 12/12/18 08:08 Resp 16 12/12/18 07:15 BP 148/70 12/12/18 07:00 Pulse Ox 99 12/12/18 07:00 Intake & Output 12/11/18 12/12/18 12/12/18 18:59 06:59 18:59 Intake Total 200 100 Output Total 900 1900 Balance -700 -1800 Weight 103.5 kg Intake: Oral 200 100 Output: Urine 900 1900 Other: Voiding Method Indwelling Catheter Toilet Toilet Indwelling Catheter Indwelling Catheter # Voids 1 - Labs CBC & Chem 7: 12/12/18 06:37 12/12/18 06:37 Labs: Abnormal Lab Results - Last 24 Hours (Table) 12/11/18 12/11/18 12/12/18 Range/Units 16:48 20:24 06:37 RBC 2.39 L (4.30-5.90) m/uL Hgb 7.2 L (13.0-17.5) gm/dL Hct 23.3 L (39.0-53.0) % RDW 18.4 H (11.5-15.5) % Lymphocytes # 0.5 L (1.0-4.8) k/uL Sodium (137-145) mmol/L Carbon Dioxide (22-30) mmol/L BUN (9-20) mg/dL Glucose (74-99) mg/dL POC Glucose (mg/dL) 264 H 276 H (75-99) mg/dL 12/12/18 12/12/18 12/12/18 Range/Units 06:37 07:08 11:58 RBC (4.30-5.90) m/uL Hgb (13.0-17.5) gm/dL Hct (39.0-53.0) % RDW (11.5-15.5) % Lymphocytes # (1.0-4.8) k/uL Sodium 136 L (137-145) mmol/L Carbon Dioxide 33 H (22-30) mmol/L BUN 46 H (9-20) mg/dL Glucose 123 H (74-99) mg/dL POC Glucose (mg/dL) 135 H 191 H (75-99) mg/dL Microbiology - Last 24 Hours (Table) 12/08/18 11:55 Blood Culture - Preliminary Blood No Growth after 96 hours Assessment and Plan Plan: Assessment: 1. Acute kidney injury mostly prerenal secondary to cardiorenal syndrome. Renal function has improved since admission. Creatinine 1.14 today. UA is quite benign. No evidence of hydronephrosis on ultrasound from last month. 2. Chronic kidney disease stage III. Baseline creatinine near 1.1-1.5. 3. Volume overload. Currently on IV Lasix. Improved. 4. Coronary artery disease status post stenting. 5. 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 6. Insulin-dependent diabetes mellitus. 7. Lower extremity cellulitis maintained on IV antibiotics. Wound culture positive for Pseudomonas and Enterobacter. 8. Anemia of chronic kidney disease. Iron deficiency noted. Maintained on Aranesp. S/p 3 doses of IV iron. 9. Metabolic alkalosis secondary to diuresis. Maintained on Diamox. Better. Plan: I will change Lasix to 40 mg orally once daily. Discontinue Diamox. Continue to monitor renal function and urine output. Repeat electrolytes in the morning. Burrell catheter removed this morning. Monitor serial postvoid residuals to make sure no underlying urinary retention.
--- NOTE | 2018-12-12 14:30 | P.PN ---
Subjective Progress Note Date: 12/12/18 Principal diagnosis: This is a 73-year-old male with a past medical history of multiple medical problems with recent cardiac surgery including mitral valve replacement, stent placement, myocardial infarction, pulmonary hypertension and was recently admitted for an increase in weakness with swelling and blistering of the lower legs with fever and is being closely monitored. Patient is sitting up in the chair with legs elevated sleeping but easily arousable. Family is at the bedside. Bilateral lower extremities are wrapped with Zi wraps and elevated at this time. Extremely guarded prognosis 12/03/2018 Patient is sitting up in the chair sleeping but arousable. Patient states that he is very lethargic and continues to nod off while talking. Patient is currently in the ICU and is being closely monitored. Patient lower extremities are down and not currently being elevated. Patient states that he does when he is lying in bed. Zi wraps dry and intact with obvious swelling of the bilateral lower extremities. Heart hugger is in place. patient denies any chest pain or palpitations but does state that he is short of breath with just about any movement to or from the chair. Patient has poor appetite but denies any nausea or vomiting. Patient has a low grade temp this morning of 99.1F and is being closely monitored. ID is following as well as many other consultants. Prognosis is guarded. 12/04/2018 Patient is sitting up in the chair with bilateral legs elevated in no acute distress. Patient states that he is having worsening discomfort in the bilateral lower extremities especially his feet. Discussed with the patient in detail about keeping the legs elevated to help minimize the swelling and discomfort. Zi wraps along with Silvadene cream were being applied by nursing staff at the time of the visit. Multiple ulcerations lower extremities bilaterally are present with slight improvement to the ulcerations of the shins with some scabbing noted. Infectious disease is following closely for antibiotic coverage as well as wound care therapy. Patient states he is not eating much but has been attempting to eat more to build up his strength. Patient states that he still having some shortness of breath with exertion. Discussed with the patient at length about the importance of using incentive spirometer at the bedside at least 10 times per hour while awake. Patient denies any chest pain or palpitations at this time. Patient states that he sti ll very fatigued and feels exhausted. Multiple medical consultations are following closely. Guarded prognosis. 12/05/2018 Patient is sitting up in the chair in no acute distress with bilateral legs elevated with daughter at the bedside. Patient denies any shortness of breath, chest pain, or palpitations at this time. Patient denies any nausea or vomiting and is tolerating foods. Patient is a very picky eater and family at the bedside is bringing in protein shakes along with yogurts and other foods to encourage his increase in oral intake. Patient continues to have bilateral lower extremity pain along with bilateral foot pain that he states is not al lowing him to be able to get up and walk and is frustrated. A change in pain medications has been addressed. Discussed with the patient about avoiding sleepiness due to pain medication usage but attempting to find the right dose to help with pain control. Discussed with the patient at length about using the incentive spirometer at least 10 times per hour while awake especially due to the inability to get up and walk at this time. Spoke to the daughter about encouraging him to stay awake during the day by opening the window shades and staying out of bed. Patient has been afebrile. Patient is awaiting a transfer out of the ICU when a bed becomes available. Guarded prognosis. 12/06/2018 Patient is sitting up in the chair in no acute distress and continues to state that he is having a lot of pain and discomfort in his bilateral lower extremities especially his feet. Patient was moved out of the ICU and is being monitored closely. Per nursing staff the patient has been sitting in his chair all night and most of the day and nods off and on all day out of sleep. Patient was refusing to work with PT/OT due to the discomfort of lower extremities. Discussed with the patient at length today about getting up and working with PT OT as this is a very important part of his treatment plan and overall prognosis. Patient does have pain medications ordered and is taking. Spoke with nursing staff today about cautiously giving narcotics as he continues to be quite lethargic all day. No family is at the bedside today. Discussed with the patient at length today about continuing to use his incentive spirometer and patient stated that he is using the incentive spirometer when he can reach it as it was on the other side of the table this morning. Maximum was 750 today on the incentive spirometer. Patient continues to need intense encouragement to do much of anything. Guarded prognosis. 12/07/2018 Patient is lying in bed with bilateral legs elevated up on pillows, SCDs present along with Zi wraps to minimize swelling. Patient continues to state that he has a lot of pain and discomfort in his legs and feet. Patient remains lethargic but easily arousable. Per nursing staff and the patient, patient was up today with physical therapy from the chair to the bed. Continued encouragement of physical therapy as well as incentive spirometer use. Chest x- ray yesterday shows improved pulmonary venous congestion with persistent cardiomegaly with small left-sided pleural effusion with probable underlying atelectasis. Spoke with the nursing staff about continuing to encourage incentive spirometer use and getting up with physical therapy. Multiple medical consultations are following. Guarded prognosis. 12/10/2018 Patient is sitting up in bed in no acute distress. Daughter at the bedside. Discussed with the patient at length today about working with PT/OT as he has been refusing due to lower extremity swelling and pain. Per the patient he will work with them today as his daughter continues to stress the importance of building up strength. Patient is still having increased amounts of pain and is upset because he feels he isn't getting enough pain medications. Discussed with the patient about his increase lethargy and fatigue when taking narcotics. P atient denies any chest pain or palpitations at this time. Patient is afebrile. Patient states he does have some periods of shortness of breath and is still requiring oxygen at 2 L via nasal cannula. Discussed with the patient about the importance of incentive spirometer use as well. 12/11/2018 Patient is sitting up in bed sleeping but arousable. is at the bedside. states that PT/OT have not been in to work with the patient today. Patient continues to be lethargic but arousable. Patient continues to complain about leg pain and falls asleep easily after making these comments. When discussing with the today about possible discharge plans she stated they would like to discuss with case management and social work about options as the family has decided they did not want to return to [facility] at this time. Infectious disease is following closely. Patient will continue on IV antibiotics at this time in the form of cefepime and may transition to oral antibiotics per infectious disease recommendations. Will continue to monitor closely. Encourage the patient to continue using incentive spirometer at least 10 times per hour while awake and also mentioned to the about the importance of continuing to use incentive spirometer and working with PT/OT daily. 12/12/2018 Patient is sitting up in the bed in no acute distress. Patient was able to work with PT/OT yesterday requiring max assist of 3 people initially and on a second attempt requiring moderate assistance of 2 people to standing and is more willing to work with physical therapy at this time. PT/OT will continue to follow. Currently working on placement as the family has requested that they do not want to return to [facility] at this time. Patient is currently on IV antibiotics and will continue while hospitalized per infectious disease recommendations. Bilateral lower extremity swelling has improved with mild swelling noted of the bilateral feet. Ulcerations of the feet are healing. Case management and social worker clinical following. Objective - Vital Signs Vital signs: Vital Signs Temp 97.6 F 12/12/18 07:00 Pulse 64 12/12/18 08:08 Resp 16 12/12/18 07:15 BP 148/70 12/12/18 07:00 Pulse Ox 99 12/12/18 07:00 Intake & Output 12/11/18 12/12/18 12/12/18 18:59 06:59 18:59 Intake Total 200 100 Output Total 900 1900 Balance -700 -1800 Weight 103.5 kg Intake: Oral 200 100 Output: Urine 900 1900 Other: Voiding Method Indwelling Catheter Toilet Toilet Indwelling Catheter Indwelling Catheter # Voids 1 - Exam Gen: This is a 73-year-old male sitting up in bed in no acute distress. Vital signs are stable. Temp is 97.6 F oral, pulse is 54, respirations are 16, blood pressure is 148/70, oxygen saturation is 99 % on 2 L nasal cannula HEENT: Head is atraumatic, normocephalic. Pupils equal, round. Sclerae is anicteric. NECK: Supple. No JVD. No lymphadenopathy. No thyromegaly. LUNGS: Diminished breath sounds at the bases. Bilateral scattered rhonchi noted. No intercostal retractions. HEART: S1 and S2 are muffled , ejection systolic murmur ABDOMEN: Soft. Obese. Bowel sounds are present. No masses. No tenderness. EXTREMITIES: Mild pedal edema. Slightly improved. Zi wrap is intact. No calf tenderness. Bilateral lower extremity tenderness upon palpation. Bilateral lower extremities are elevated on pillows and the swelling has improved. NEUROLOGICAL: Patient is awake and lethargic, alert and oriented x3. Cranial nerves 2 through 12 are grossly intact. SKIN: Blistering and ulcers noted to bilateral lower extremities and bilateral feet with swelling noted of the surrounding tissue, swelling has improved. Also noted the left great toe ulcer with a scab and has improved - Labs CBC & Chem 7: 12/12/18 06:37 12/12/18 06:37 Labs: Abnormal Lab Results - Last 24 Hours (Table) 12/11/18 12/11/18 12/12/18 Range/Units 16:48 20:24 06:37 RBC 2.39 L (4.30-5.90) m/uL Hgb 7.2 L (13.0-17.5) gm/dL Hct 23.3 L (39.0-53.0) % RDW 18.4 H (11.5-15.5) % Lymphocytes # 0.5 L (1.0-4.8) k/uL Sodium (137-145) mmol/L Carbon Dioxide (22-30) mmol/L BUN (9-20) mg/dL Glucose (74-99) mg/dL POC Glucose (mg/dL) 264 H 276 H (75-99) mg/dL 12/12/18 12/12/18 12/12/18 Range/Units 06:37 07:08 11:58 RBC (4.30-5.90) m/uL Hgb (13.0-17.5) gm/dL Hct (39.0-53.0) % RDW (11.5-15.5) % Lymphocytes # (1.0-4.8) k/uL Sodium 136 L (137-145) mmol/L Carbon Dioxide 33 H (22-30) mmol/L BUN 46 H (9-20) mg/dL Glucose 123 H (74-99) mg/dL POC Glucose (mg/dL) 135 H 191 H (75-99) mg/dL Microbiology - Last 24 Hours (Table) 12/08/18 11:55 Blood Culture - Preliminary Blood No Growth after 96 hours Assessment and Plan Assessment: Acute bilateral leg cellulitis with sepsis, present on admission pseudomonas aeruginosa as well as gram-negative bacilli; infectious disease if following. Patient is currently on IV cefepime Diffuse generalized weakness with possible myopathy, present on admission hypotension possible secondary to hypovolemia Increased WBC Anemia of chronic disease Hyponatremia Change in mental status, acute metabolic encephalopathy, multifactorial acute on chronic Increased creatinine with chronic kidney disease stage III; current creatinine is 1.19 Elevated AST, ALT, possibly hepatitis, improved Troponin 0.043, indeterminate Congestive heart failure with acute on chronic diastolic dysfunction, recent mitral valve replacement for mitral regurgitation History of coronary artery disease/stent History pulmonary hypertension Hyperlipidemia History of gastroesophageal reflux disease Diabetes mellitus type 2 with diabetic nephropathy Gait dysfunction History of obstructive sleep apnea history of degenerative joint disease Full code Recommendations and discussion: Recommend to continue current medications, management, and symptomatic treatment. Multiple medical consultations are following. Continue to encourage the patient to use the incentive spirometer at least 10 times every hour while awake. Discussed with the patient about PT/OT and encouraged patient to continue to work with them for strength and mobility. Patient was able to work with PT/OT yesterday and will continue. Case management and social worker clinical following closely for placement options as the patient and family would prefer not to return to [facility]. Will continue to monitor vital signs and labs closel y. Due to multiple complex medical issues overall prognosis is extremely guarded. Further recommendations to follow. Possible discharge in 24-48 hours.
[2018-12-12] MEDS: BISACODYL 10 MG SUPP RECTAL PRN (15:15)
[2018-12-12 16:59] LABS: Glucose,Whole Blood 278 mg/dL (75-99)
[2018-12-12] MEDS: ASPIRIN 81 MG PO SCH (17:17)
[2018-12-12] MEDS: LIPASE 5,000/PROTEASE 17,000/AMYLASE 24,000 PO SCH (17:17)
[2018-12-12] MEDS: MULTIVITAMINS, THERA 1 EACH TAB PO SCH (17:17)
[2018-12-12] MEDS: FERROUS SULFATE 325 MG TAB PO SCH (17:17)
[2018-12-12] MEDS: TAMSULOSIN 0.4 MG CAP.ER.24H PO SCH ×2 (17:18→17:21)
[2018-12-12] MEDS: CHOLECALCIFEROL 1,000 UNIT TAB PO SCH (17:18)
[2018-12-12 20:29] LABS: Glucose,Whole Blood 212 mg/dL (75-99)
[2018-12-12] MEDS: INSULIN DETEMIR (LEVEMIR) 100 UNIT/ML SYR SQ SCH (21:11)
[2018-12-12] MEDS: ESCITALOPRAM 10 MG TAB PO SCH (21:12)
[2018-12-12] MEDS: ATORVASTATIN 40 MG TAB PO SCH (21:12)
[2018-12-12] MEDS: SENNOSIDES-DOCUSATE SODIUM 1 EACH TAB PO SCH (21:12)
[2018-12-13 07:26] LABS: Glucose,Whole Blood 120 mg/dL (75-99)
[2018-12-13] MEDS: INSULIN ASPART (NovoLOG) 100 UNIT/ML VIAL SQ SCH ×2 (07:36→12:18)
[2018-12-13] MEDS: HEPARIN SODIUM,PORCINE 5,000 UNIT/ML 1 ML VIAL SQ SCH ×2 (08:06→15:49)
[2018-12-13] MEDS: PANTOPRAZOLE 40 MG TABLET PO SCH (08:06)
[2018-12-13 08:17] LABS: Anisocytosis Slight; Basophils # (A) 0.1 k/uL (0-0.2); Basophils % (A) 1 %; Eosinophils # (A) 0.3 k/uL (0-0.7); Eosinophils % (A) 4 %; HCT 25.1 % (39.0-53.0); HGB 7.6 gm/dL (13.0-17.5); Hypochromasia Marked; Lymphocytes # (A) 0.7 k/uL (1.0-4.8); Lymphocytes % (A) 8 %; MCH 29.5 pg (25.0-35.0); MCHC 30.3 g/dL (31.0-37.0); MCV 97.3 fL (80.0-100.0); Macrocytosis Slight; Mean Platelet Volume 7.4; Monocytes # (A) 0.4 k/uL (0-1.0); Monocytes % (A) 5 %; Neutrophils # (A) 6.6 k/uL (1.3-7.7); Neutrophils % (A) 81 %; Platelet Count 345 k/uL (150-450); Poikilocytosis Slight; RBC 2.58 m/uL (4.30-5.90); RDW 18.5 % (11.5-15.5); WBC 8.1 k/uL (3.8-10.6)
[2018-12-13 08:20] LABS: African American GFR (CKD) >90 (>60 ml/min/1.73 sqM); Anion Gap 1 mmol/L; Blood Urea Nitrogen 45 mg/dL (9-20); Calcium 8.7 mg/dL (8.4-10.2); Carbon Dioxide 34 mmol/L (22-30); Chloride 102 mmol/L (98-107); Glucose 108 mg/dL (74-99); Sodium 137 mmol/L (137-145)
[2018-12-13 08:27] VITALS: RESP 16
[2018-12-13] MEDS ORDERED: FUROSEMIDE 40 MG TAB PO SCH (09:00)
[2018-12-13] MEDS: BISACODYL 10 MG SUPP RECTAL PRN (09:11)
[2018-12-13] MEDS: GABAPENTIN 100 MG CAP PO SCH (09:11)
[2018-12-13] MEDS: AMIODARONE 200 MG TAB PO SCH (09:11)
[2018-12-13] MEDS: CLOPIDOGREL 75 MG TAB PO SCH (09:11)
[2018-12-13] MEDS: METOPROLOL TARTRATE 50 MG TAB PO SCH (09:11)
[2018-12-13] MEDS: CEFEPIME 2 GM in SODIUM CHLORIDE 0.9% 100 ML IVPB SCH (09:11)
[2018-12-13 11:46] LABS: Glucose,Whole Blood 203 mg/dL (75-99)
[2018-12-13 14:37] VITALS: BP 135/71; PULSE 60; TEMP 97.6
--- NOTE | 2018-12-13 14:43 | P.DS ---
Providers Date of admission: 11/29/18 16:45 Expected date of discharge: 12/13/18 Attending physician: Bakari Murphy MD Consults: 11/29/18 16:46 Consult Physician Urgent Consulting Provider: Elgin Lozada Consult Reason/Comments: s/p MVR Do you want consulting provider notified?: Yes Consult Physician Urgent Consulting Provider: Robson Teixeira Consult Reason/Comments: lissette/ckd Do you want consulting provider notified?: Yes 11/29/18 16:47 Consult Physician Urgent Consulting Provider: Cole Burrell Consult Reason/Comments: acute pyrexia, hx MVR, possible HCAP Do you want consulting provider notified?: Yes 11/29/18 21:44 Consult Physician Routine Consulting Provider: Adonis Austin Consult Reason/Comments: chf Do you want consulting provider notified?: Yes 11/30/18 12:53 Consult Physician Urgent Consulting Provider: Conrad Howard Consult Reason/Comments: svp marketing Do you want consulting provider notified?: Yes Primary care physician: Jordan Patel Hospital Course: Final diagnosis Acute bilateral leg cellulitis with sepsis, present on admission Pseudomonas aeruginosa as well as gram-negative bacilli Diffuse generalized weakness with possible myopathy, present on admission Hypotension possibly secondary to hypovolemia Anemia of chronic disease Increased WBC Hyponatremia Change in mental status, acute metabolic encephalopathy, multifactorial acute on chronic Increased creatinine with chronic kidney disease stage III Congestive heart failure with acute on chronic diastolic dysfunction, recent mitral valve replacement for mitral regurgitation History of coronary artery disease/stents Hyperlipidemia History of pulmonary hypertension History of gastroesophageal reflux disease diabetes mellitus type 2 with diabetic nephropathy Elevated ALP, AST, possibly hepatitis Troponin 0.043, indeterminate Gait dysfunction History of obstructive sleep apnea History of degenerative joint disease Full code Discharge disposition Patient is being discharged in a stable condition with guarded prognosis to [facility] for continued IV antibiotic therapy as well as continued PT/OT therapy. Antibiotics have been arranged for continued IV antibiotic therapy per infectious disease recommendations. Patient will follow-up with Dr. Patel upon discharge. Total time taken is 35 minutes. History of present illness This is a 73-year-old male with a past medical history of multiple complex medical issues and underwent recent cardiac surgery including mitral valve replacement, stent placement and was recently admitted for an increase in weakness with swelling and blistering to the bilateral lower extremities, cellulitis associated with sepsis present on admission and was being closely monitored. Multiple medical consultations were following closely. Infectious disease has arranged for IV antibiotic therapy and patient received a PICC line for continued therapy in the outpatient setting. Patient will be going to a detention facility for continued rehab and IV antibiotic therapy. During hospitalization patient continue to work with PT/OT requiring moderate to maximum assistance and was experiencing a lot of pain to the bilateral lower extremities especially bilateral feet due to blisters and ulcerations that were very painful. Infectious disease is following closely and will continue with wound care recommendations in the outpatient setting. Patient will continue with pain medications in the form of Tylenol 3 as well as Ultram as needed. Patient is to continue using incentive spirometer at least 10 times every hour while awake and this was discussed in detail with the patient. Patient is to continue elevating bilateral lower extremities while in bed and during rest. Currently patient's condition is stable with improvement and patient is ready for discharge today. On exam vital signs are stable. Temp is 97.7F, pulse is 57, respirations are 16, blood pressure is 148/71, oxygen saturation is 100% on 2 L via nasal cannula. Cardio S1, S2 are muffled. Respiratory system shows diminished breath sounds at the bases with a few scattered rhonchi noted. Abdomen is soft, obese, nontender. Nervous system shows no focal deficits with moderate diffuse weakness. Please refer to medication reconciliation sheet for a list of medications. Patient Condition at Discharge: Serious Plan - Discharge Summary Discharge Rx Participant: Yes New Discharge Prescriptions: New Cefepime HCl [Maxipime] 2 gm IV Q12H #20 vial Darbepoetin Ruddy [Aranesp] 40 mcg SQ Q7D syringe Tamsulosin [Flomax] 0.4 mg PO PC-SUPPER cap.er.24h Heparin Sodium,Porcine [Heparin Sodium] 5,000 unit SQ Q12HR vial Furosemide [Lasix] 40 mg PO DAILY tab Escitalopram [Lexapro] 10 mg PO HS tab Atorvastatin [Lipitor] 40 mg PO HS tab INSULIN ASPART (NovoLOG) [NovoLOG (formulary)] 0 unit SQ ACHS vial Pantoprazole [Protonix] 40 mg PO AC-BRKFST tablet. SILVER sulfADIAZINE CREAM [Silvadene Cream] 1 applic TOPICAL DAILY applic traMADol HCl [Ultram] 50 mg PO QID PRN #6 tab PRN Reason: Breakthrough Pain Continue L.acidoph,Paracasei, B.lactis [Probiotic] 1 cap PO DAILY@1700 Ferrous Sulfate [Iron (65 MG Elemental)] 325 mg PO DAILY@1700 Cholecalciferol [Vitamin D3 (25 Mcg = 1000 Iu)] 2,000 unit PO DAILY@1700 Multivitamins, Thera [Multivitamin (formulary)] 1 tab PO DAILY@1700 Zinc 50 mg PO DAILY@1700 Albuterol Inhaler [Ventolin Hfa Inhaler] 1 - 2 puff INHALATION RT-Q6H PRN #1 inhaler PRN Reason: Shortness Of Breath Or Wheezing Amiodarone [Cordarone] 200 mg PO DAILY #15 tab Insulin Lispro [humaLOG Kwikpen] 10 unit SQ AC-TID 30 Days #3 insuln.pen Insulin Detemir [Levemir Flextouch] 10 units SQ HS 30 Days #3 pen Clopidogrel [Plavix] 75 mg PO DAILY #30 tablet Sennosides-Docusate Sodium [Senokot-S] 2 tab PO HS PRN #14 tablet PRN Reason: Constipation Acetaminophen Tab [Tylenol] 1,000 mg PO Q6HR #120 tablet Aspirin 81 mg PO DAILY@1700 Bisacodyl [Dulcolax] 10 mg RECTAL DAILY PRN PRN Reason: Constipation Magnesium Hydroxide [Milk of Magnesia] 2,400 mg PO DAILY PRN PRN Reason: Constipation Metoprolol Tartrate [Lopressor] 50 mg PO BID@0800,1700 Na Phos,M-B/Na Phos,Di-Ba [Fleet Adult] 133 ml RECTAL DAILY PRN PRN Reason: Constipation Acetaminophen-Codeine 300-30mg [Tylenol w/codeine #3] 1 - 2 tab PO Q6H PRN #6 tab PRN Reason: Pain Discontinued Furosemide [Lasix] 40 mg PO BID@0600,1700 Discharge Medication List Cholecalciferol [Vitamin D3 (25 Mcg = 1000 Iu)] 2,000 unit PO DAILY@1700 01/04/16 [History] Ferrous Sulfate [Iron (65 MG Elemental)] 325 mg PO DAILY@1700 01/04/16 [History] L.acidoph,Paracasei, B.lactis [Probiotic] 1 cap PO DAILY@1700 01/04/16 [History] Multivitamins, Thera [Multivitamin (formulary)] 1 tab PO DAILY@1700 01/09/17 [History] Zinc 50 mg PO DAILY@1700 07/17/18 [History] Acetaminophen Tab [Tylenol] 1,000 mg PO Q6HR #120 tablet 11/11/18 [Rx] Albuterol Inhaler [Ventolin Hfa Inhaler] 1 - 2 puff INHALATION RT-Q6H PRN #1 inhaler 11/11/18 [Rx] Amiodarone [Cordarone] 200 mg PO DAILY #15 tab 11/11/18 [Rx] Clopidogrel [Plavix] 75 mg PO DAILY #30 tablet 11/11/18 [Rx] Insulin Detemir [Levemir Flextouch] 10 units SQ HS 30 Days #3 pen 11/11/18 [Rx] Insulin Lispro [humaLOG Kwikpen] 10 unit SQ AC-TID 30 Days #3 insuln.pen 11/11/18 [Rx] Sennosides-Docusate Sodium [Senokot-S] 2 tab PO HS PRN #14 tablet 11/11/18 [Rx] Aspirin 81 mg PO DAILY@1700 11/29/18 [History] Bisacodyl [Dulcolax] 10 mg RECTAL DAILY PRN 11/29/18 [History] Magnesium Hydroxide [Milk of Magnesia] 2,400 mg PO DAILY PRN 11/29/18 [History] Metoprolol Tartrate [Lopressor] 50 mg PO BID@0800,1700 11/29/18 [History] Na Phos,M-B/Na Phos,Di-Ba [Fleet Adult] 133 ml RECTAL DAILY PRN 11/29/18 [History] Acetaminophen-Codeine 300-30mg [Tylenol w/codeine #3] 1 - 2 tab PO Q6H PRN #6 tab 12/13/18 [Rx] Atorvastatin [Lipitor] 40 mg PO HS tab 12/13/18 [Rx] Cefepime HCl [Maxipime] 2 gm IV Q12H #20 vial 12/13/18 [Rx] Darbepoetin Ruddy [Aranesp] 40 mcg SQ Q7D syringe 12/13/18 [Rx] Escitalopram [Lexapro] 10 mg PO HS tab 12/13/18 [Rx] Furosemide [Lasix] 40 mg PO DAILY tab 12/13/18 [Rx] Heparin Sodium,Porcine [Heparin Sodium] 5,000 unit SQ Q12HR vial 12/13/18 [Rx] INSULIN ASPART (NovoLOG) [NovoLOG (formulary)] 0 unit SQ ACHS vial 12/13/18 [Rx] Pantoprazole [Protonix] 40 mg PO AC-BRKFST tablet. 12/13/18 [Rx] SILVER sulfADIAZINE CREAM [Silvadene Cream] 1 applic TOPICAL DAILY applic 12/13/18 [Rx] Tamsulosin [Flomax] 0.4 mg PO PC-SUPPER cap.er.24h 12/13/18 [Rx] traMADol HCl [Ultram] 50 mg PO QID PRN #6 tab 12/13/18 [Rx] Follow up Appointment(s)/Referral(s): Jordan Patel III, MD [Primary Care Provider] - 1-2 days Cloe Burrell MD [STAFF PHYSICIAN] - 2 Weeks Elgin Lozada MD [STAFF PHYSICIAN] - As Needed (office will call with appointment) Ambulatory/Diagnostic Orders: Basic Metabolic Panel [LAB.AMB] Location: None Selected Complete Blood Count w/diff [LAB.AMB] Location: None Selected Activity/Diet/Wound Care/Special Instructions: Patient is going to [facility] Continue with IV antibiotic therapy continue current diet repeat labs in 2-3 days continue working with PT/OT follow up with Cardiothoracic surgery as discussed upon discharge follow up with Dr. Burrell upon discharge follow up with primary care provider upon discharge Accuchecks AC/HS and use sliding scale for coverage continue using the incentive spirometer at least 10 times per hour while awake Wound care: Continue to apply Silvadene, Telfa pads, Kerlix, and Zi wraps from the toes to right below the knee daily to bilateral lower extremities per infectious disease recommendations. Continue using Actifoam gentle liquitrap to the sacral area Discharge Disposition: TRANSFER TO SNF/ECF
--- NOTE | 2018-12-13 16:29 | CDI ---
Documentation Clarification Form Date: 12/13/2018 3:12:17 PM From: Ute Gabriel RN CCDS Admit Date: 11/29/2018 4:45:00 PM Patient Name: Deep Anderson Visit Number: [id number] Discharge Date: ATTENTION: The Clinical Documentation Specialists (CDI) and [facility] Coding Staff appreciate your assistance in clarifying documentation. Please respond to the clarification below the line at the bottom and electronically sign. The CDI & [facility] Coding staff will review the response and follow-up if needed. Please note: Queries are made part of the Legal Health Record. If you have any questions, please contact the author of this message via ITS. Dr. Reshma Merrill Conflicting documentation has been found in the medical record: Date of admission Nov 29, 2018 Coccyx Pressure Ulcers December 09, 2018 Coccyx Pressure Ulcer Stage II November 30, 2018 Buttock Pressure Injury Stage II December 08, 2018 Buttock pressure Injury Stage II Hospital Acquired Discharge summary continue using Acitfoam gentle liquitrap to sacral area History/Risk Factors: 73-year-old male presents to ED from Rehab with increased swelling in bilateral lower extremities with ulceration and weeping. Medical history CHF, COPD, DM, CAD, HTN, Atrial Fibrillation Clinical Indicators: Treatment: Optifoam gentle liquitrap bordered, foam w/ border In your opinion, what is the most clinically appropriate diagnosis for this patient? * Coccyx Pressure Ulcer Stage II POA * Coccyx Pressure Ulcer evolved to Stage II * Buttock Pressure Injury Stage II POA * Buttock Pressure Injury evolved to Stage II * Other explanation of clinical findings * Unable to determine (no explanation for clinical findings) (Last Revision: December 2016) Coccyx Pressure Ulcer Stage II POA MTDD
--- NOTE | 2018-12-13 21:50 | P.PN ---
Subjective Progress Note Date: 12/13/18 73-year-old male presents to Hospital from the extended care facility where he has been recovering status post his extensive mitral valve repair for his mitral stenosis. There was also repair of the ruptured chordae tendon 9. Prior to the finding of severe mitral stenosis he did have coronary disease and a percutaneous intervention occurred with stenting of a drug-eluting type. Afterward the open heart procedure occurred. Due to his weakness has been recovering at the extended care facility when it was noticed that he had the rapid worsening of the lower extremities with the increasing amount of edema the tissue started to blister he developed a fever and was transferred to our facil ity. Due to the lower actually wounds and concerns to infection especially in the face of his recent surgical interventions. Consultation was requested. Patient is feeling slightly better he has identities less short of breath the lower extremities are feeling somewhat better they are less uncomfortable 12/03/2018 the patient is feeling somewhat better. Cultures of the leg cultures have been finalized and Pseudomonas and Enterobacter isolated. Patient will likely be going to rehabilitation and does have IV access. December 04 2018 patient still very weak being evaluated for rehab, patient is short of breath and does not feel well. 12/07/2018 feeling better less SOB legs improved with wraps 12/10/2018 patient has been a bit more cooperative today. Was able to raise his legs to have his legs wrapped. Still very weak plans for transfer to rehab. 12/11/2018 the patient today was certainly more cooperative. Some assistance is able to stand at the bedside into events. His legs may be problematic but is improving. We're working with the discharge team determine the best plan for his discharge. 12/13/18 to be transferred today to [facility]. Objective - Vital Signs Vital signs: Vital Signs Temp 97.6 F 12/13/18 14:37 Pulse 60 12/13/18 14:37 Resp 16 12/13/18 14:37 BP 135/71 12/13/18 14:37 Pulse Ox 98 12/13/18 14:37 Intake & Output 12/13/18 12/13/18 12/14/18 06:59 18:59 06:59 Intake Total 240 758 Output Total 350 750 Balance -110 8 Weight 135.5 kg Intake: Intake, IV Titration 100 Amount Cefepime 2 gm In Sodium 100 Chloride 0.9% 100 ml @ 200 mls/hr IVPB Q24HR [facility] Rx#:[id number] Oral 240 658 Output: Urine 350 750 Other: Voiding Method Diaper Diaper Incontinent Incontinent # Voids 1 2 # Bowel Movements 1 - Exam HEENT: Anicteric conjunctiva are pink and moist nasal mucosa grossly intact without significant lesions, there is no thrush. Poor dentition Neck: The neck is supple without significant lymphadenopathy or thyromegaly. Lungs: Symmetrical bilateral air entry basilar crackles are heard. Extremities no bronchial sounds Heart: Irregular audible S1 and S2 2/6 systolic murmur left sternal border PMI nondisplaced Abdomen: Positive bowel sounds soft and nontender without palpable masses or organomegaly. There was no guarding or rebound. Extremities: The upper extremities have excellent pulses they are symmetric, no significant petechiae or telangiectasia. No splinter hemorrhages were noted. The lower extremities the improved bilateral lower extremity edema is more evidence of blistering to the left leg into the right. There is evidence of the improved erythema the left leg is also mildly tender there is no purulent dr adrian at this time. Neuro: Awake alert oriented to person place and time. There are no acute new gross focal sensory motor deficits. - Labs CBC & Chem 7: 12/13/18 07:28 12/13/18 07:28 Labs: Abnormal Lab Results - Last 24 Hours (Table) 12/13/18 12/13/18 12/13/18 Range/Units 07:24 07:28 07:28 RBC 2.58 L (4.30-5.90) m/uL Hgb 7.6 L (13.0-17.5) gm/dL Hct 25.1 L (39.0-53.0) % MCHC 30.3 L (31.0-37.0) g/dL RDW 18.5 H (11.5-15.5) % Lymphocytes # 0.7 L (1.0-4.8) k/uL Carbon Dioxide 34 H (22-30) mmol/L BUN 45 H (9-20) mg/dL Glucose 108 H (74-99) mg/dL POC Glucose (mg/dL) 120 H (75-99) mg/dL 12/13/18 Range/Units 11:44 RBC (4.30-5.90) m/uL Hgb (13.0-17.5) gm/dL Hct (39.0-53.0) % MCHC (31.0-37.0) g/dL RDW (11.5-15.5) % Lymphocytes # (1.0-4.8) k/uL Carbon Dioxide (22-30) mmol/L BUN (9-20) mg/dL Glucose (74-99) mg/dL POC Glucose (mg/dL) 203 H (75-99) mg/dL Microbiology - Last 24 Hours (Table) 12/08/18 11:55 Blood Culture - Preliminary Blood No Growth after 120 hours Laboratory Results WBC 8.1 k/uL (3.8-10.6) 12/13/18 07:28 RBC 2.58 m/uL (4.30-5.90) L 12/13/18 07:28 Hgb 7.6 gm/dL (13.0-17.5) L 12/13/18 07:28 Hct 25.1 % (39.0-53.0) L 12/13/18 07:28 MCV 97.3 fL (80.0-100.0) 12/13/18 07:28 MCH 29.5 pg (25.0-35.0) 12/13/18 07:28 MCHC 30.3 g/dL (31.0-37.0) L 12/13/18 07:28 RDW 18.5 % (11.5-15.5) H 12/13/18 07:28 Plt Count 345 k/uL (150-450) 12/13/18 07:28 Neutrophils % 81 % 12/13/18 07:28 Lymphocytes % 8 % 12/13/18 07:28 Monocytes % 5 % 12/13/18 07:28 Eosinophils % 4 % 12/13/18 07:28 Basophils % 1 % 12/13/18 07:28 Neutrophils # 6.6 k/uL (1.3-7.7) 12/13/18 07:28 Lymphocytes # 0.7 k/uL (1.0-4.8) L 12/13/18 07:28 Monocytes # 0.4 k/uL (0-1.0) 12/13/18 07:28 Eosinophils # 0.3 k/uL (0-0.7) 12/13/18 07:28 Basophils # 0.1 k/uL (0-0.2) 12/13/18 07:28 Hypochromasia Marked 12/13/18 07:28 Poikilocytosis Slight 12/13/18 07:28 Anisocytosis Slight 12/13/18 07:28 Macrocytosis Slight 12/13/18 07:28 PT 12.2 sec (9.0-12.0) H 11/29/18 13:55 INR 1.2 (<1.2) H 11/29/18 13:55 APTT 26.7 sec (22.0-30.0) 11/29/18 13:55 Sodium 137 mmol/L (137-145) 12/13/18 07:28 Potassium 5.0 mmol/L (3.5-5.1) 12/13/18 07:28 Chloride 102 mmol/L (98-107) 12/13/18 07:28 Carbon Dioxide 34 mmol/L (22-30) H 12/13/18 07:28 Anion Gap 1 mmol/L 12/13/18 07:28 BUN 45 mg/dL (9-20) H 12/13/18 07:28 Creatinine 0.95 mg/dL (0.66-1.25) 12/13/18 07:28 Est GFR (CKD-EPI)AfAm >90 (>60 ml/min/1.73 sqM) 12/13/18 07:28 Est GFR (CKD-EPI)NonAf 79 (>60 ml/min/1.73 sqM) 12/13/18 07:28 Glucose 108 mg/dL (74-99) H 12/13/18 07:28 POC Glucose (mg/dL) 203 mg/dL (75-99) H 12/13/18 11:44 POC Glu Bench Examiner ID Nubia Anglin 12/13/18 11:44 Lactic Ac Sepsis Rflx Y 11/29/18 14:30 Plasma Lactic Acid Guy 1.5 mmol/L (0.7-2.0) 12/08/18 11:55 Calcium 8.7 mg/dL (8.4-10.2) 12/13/18 07:28 Magnesium 2.4 mg/dL (1.6-2.3) H 12/06/18 07:32 Iron 18 ug/dL (65-175) L 11/29/18 13:55 TIBC 298 ug/dL (228-460) 11/29/18 13:55 Iron Saturation 6.04 (15.00-50.00) L 11/29/18 13:55 Ferritin 1042.1 ng/mL (22.0-322.0) H 11/29/18 13:55 Total Bilirubin 1.0 mg/dL (0.2-1.3) 12/06/18 07:32 AST 43 U/L (17-59) 12/06/18 07:32 ALT 49 U/L (21-72) 12/06/18 07:32 Alkaline Phosphatase 183 U/L (38-126) H 12/06/18 07:32 Creatine Kinase 51 U/L (55-170) L 11/29/18 13:55 Troponin I 0.029 ng/mL (0.000-0.034) 11/30/18 03:01 C-Reactive Protein 327.4 mg/L (<10.0) H 11/29/18 13:55 NT-Pro-B Natriuret Pep 36261 pg/mL 11/29/18 13:55 Total Protein 5.9 g/dL (6.3-8.2) L 12/06/18 07:32 Albumin 2.9 g/dL (3.5-5.0) L 12/06/18 07:32 TSH 3.960 mIU/L (0.465-4.680) 11/29/18 13:55 Urine Color Yellow 11/29/18 14:05 Urine Appearance Clear (Clear) 11/29/18 14:05 Urine pH 5.0 (5.0-8.0) 11/29/18 14:05 Ur Specific [place] 1.018 (1.001-1.035) 11/29/18 14:05 Urine Protein Trace (Negative) H 11/29/18 14:05 Urine Glucose (UA) Negative (Negative) 11/29/18 14:05 Urine Ketones Negative (Negative) 11/29/18 14:05 Urine Blood Negative (Negative) 11/29/18 14:05 Urine Nitrite Negative (Negative) 11/29/18 14:05 Urine Bilirubin Negative (Negative) 11/29/18 14:05 Urine Urobilinogen <2.0 mg/dL (<2.0) 11/29/18 14:05 Ur Leukocyte Esterase Negative (Negative) 11/29/18 14:05 Microbiology 12/08/18 11:55 Blood Blood Culture - Preliminary No Growth after 120 hours 11/29/18 13:55 Blood Blood Culture - Final No Growth after 144 hours 11/29/18 22:30 Ankle - Left Gram Stain - Final 11/29/18 22:30 Ankle - Left Wound Culture - Final Pseudomonas aeruginosa Enterobacter cloacae 11/29/18 22:30 Urine,Clean Catch Urine Culture - Final Assessment and Plan (1) Fever Status: Acute Code(s): R50.9 - FEVER, UNSPECIFIED SNOMED Code(s): 203486216 (2) MIGUEL ANGEL (acute kidney injury) Status: Acute Code(s): N17.9 - ACUTE KIDNEY FAILURE, UNSPECIFIED SNOMED Code(s): 69040245 (3) CAD (coronary artery disease) Status: Acute Code(s): I25.10 - ATHSCL HEART DISEASE OF [place] CORONARY ARTERY W/O ANG PCTRS SNOMED Code(s): 84961358 (4) Cellulitis of both lower extremities Narrative/Plan: 73-year-old male presents to Hospital from the [facility] care facility where he is receiving care after his open heart procedure for repair of his severe mitral valve stenosis which was done by the mitral valve repair as well as cordite and any repair. In September he had undergone his percutaneous intervention with stenting in drug-eluting stents. The patient had the significant increasing amount of edema to the lower extremity such that he developed multiple blisters left greater than right. Silvadene and wraps are applied to help with the edema and help with the tissue. Antibiotic therapy with Zosyn and vancomycin has been initiated given his significant level of illness at the time of his presentation. Cultures are process and will de-escalate antibiotics as cultures become available. Elevation of the limbs well at rest is very important in conjunction with the current wraps her be applied. The temperature maximum was 100.2 now the fever has resolved. His acute renal failure seems to be improving and his leukocytosis will be monitored. 12/03/2018 patient is feeling better has eaten his meal today without great difficulties. His appetite somewhat poor. Wound culture is finalized pseudomonas as well as Enterobacter although they are susceptible to fluoroquinolones the patient is on amiodarone which does not allow the utilization of quinolone therapy. We'll be able to streamline antibiotic therapy to cefepime 2 gm IVPB q12 hours when transferring to [facility] 12/04/2018 patient week and is really quite miserable. Physical therapy is working with him to try to improve his status. We transferred to rehab. He can receive his intravenous antibiotic therapy of cefepime there. Continue with the local wraps and elevation to the lower extremities which has allowed some improvement of the edema blistering is starting to improve. 12/07/2108 some improvement noted doing well with cefepime will continue for a few more days 12/10/2018 is having some further improvement. Still having some pain. Working with the menu planner as to antibiotics at the extended care facility. We'll inquire of tramadol can be added for some further pain control. 12/11/2018 the patient is showing some improvement. With assistance is able to stand at the bedside. Evaluations have occurred and should be transferred to the rehab facility in the near future. The family is trying to determine where their primary facility will be. Is tolerating the antibiotic therapy of cefepim e well, cannot have ciprofloxacin due to the fact he is on amiodarone. Local wound care continues with some improvement limbs. 12/13/18 going to rehab today with IVABX cefepime for 2 weeks with wound care to the legs hopefully with the therapy he will regain strength to allow independence. Status: Acute Code(s): L03.115 - CELLULITIS OF RIGHT LOWER LIMB; L03.116 - CELLULITIS OF LEFT LOWER LIMB SNOMED Code(s): 173533963
== END 2018-12-13 16:05 | DRG 871 ==
LOC: EC 12:51 → 3SCARD 16:45 → 2SICU 11-30 13:54 → 4SSUR 12-05 18:57
PROVIDERS: ADMIT Internal Medicine; ATTEND Internal Medicine
PROC: 05HD33Z Insertion of Infusion Device into Right Cephalic Vein, Percutaneous Approach (ICD-10-PCS; principal; 2018-12-03 10:45)
DX: A41.59 Other Gram-negative sepsis (principal); G93.41 Metabolic encephalopathy; I50.33 Acute on chronic diastolic (congestive) heart failure; Z68.42 Body mass index [BMI] 45.0-49.9, adult; E87.1 Hypo-osmolality and hyponatremia; E87.3 Alkalosis; I13.0 Hypertensive heart and chronic kidney disease with heart failure and stage 1 through stage 4 chronic kidney disease, or unspecified chronic kidney disease; J98.11 Atelectasis; L03.115 Cellulitis of right lower limb; L03.116 Cellulitis of left lower limb; N17.9 Acute kidney failure, unspecified; B96.5 Pseudomonas (aeruginosa) (mallei) (pseudomallei) as the cause of diseases classified elsewhere; D50.9 Iron deficiency anemia, unspecified; D63.1 Anemia in chronic kidney disease; E11.21 Type 2 diabetes mellitus with diabetic nephropathy; E11.22 Type 2 diabetes mellitus with diabetic chronic kidney disease; E11.42 Type 2 diabetes mellitus with diabetic polyneuropathy; E66.9 Obesity, unspecified; E78.5 Hyperlipidemia, unspecified; G47.33 Obstructive sleep apnea (adult) (pediatric); G89.29 Other chronic pain; I25.10 Atherosclerotic heart disease of native coronary artery without angina pectoris; I25.2 Old myocardial infarction; I27.29 Other secondary pulmonary hypertension; I34.0 Nonrheumatic mitral (valve) insufficiency; I44.0 Atrioventricular block, first degree; I48.0 Paroxysmal atrial fibrillation; K21.9 Gastro-esophageal reflux disease without esophagitis; M19.90 Unspecified osteoarthritis, unspecified site; N18.3 Chronic kidney disease, stage 3 (moderate); R04.0 Epistaxis; T50.2X5A Adverse effect of carbonic-anhydrase inhibitors, benzothiadiazides and other diuretics, initial encounter; Z79.02 Long term (current) use of antithrombotics/antiplatelets; Z79.4 Long term (current) use of insulin; Z79.82 Long term (current) use of aspirin; Z79.899 Other long term (current) drug therapy; Z80.52 Family history of malignant neoplasm of bladder; Z82.49 Family history of ischemic heart disease and other diseases of the circulatory system; Z83.3 Family history of diabetes mellitus; Z85.51 Personal history of malignant neoplasm of bladder; Z87.891 Personal history of nicotine dependence; Z95.2 Presence of prosthetic heart valve; Z95.5 Presence of coronary angioplasty implant and graft; L89.152 Pressure ulcer of sacral region, stage 2; G72.9 Myopathy, unspecified; K75.9 Inflammatory liver disease, unspecified; J44.9 Chronic obstructive pulmonary disease, unspecified; I95.9 Hypotension, unspecified
CPT/HCPCS: 36410; 36415; 70450; 71045; 71046; 76937; 80048; 80053; 81003; 82550; 82728; 83540; 83550; 83605; 83735; 83880; 84443; 84484; 85025; 85027; 85610; 85730; 86140; 87040; 87070; 87077; 87086; 87186; 87205; 93005; 93308; 93970; 94640; 94760; 96365; 96366; 99285

== ENCOUNTER 2018-12-23 01:02 | Inpatient (IN) | payer MEDICARE ==
--- NOTE | 2018-12-23 01:32 | ED ---
General Adult HPI - General Chief complaint: Extremity Injury, Upper Stated complaint: Intervention Radiology Time Seen by Provider: 12/23/18 01:12 Source: patient, EMS Mode of arrival: EMS Limitations: no limitations - History of Present Illness Initial comments: This patient is 73-year-old man who presents to be evaluate for suspected broken PICC line. Patient states that his PICC line had been changed tonight, and then the nurse felt that a portion of the PICC line that was removed had broken off in the arm. They send the remains of the discontinued PICC line here and there does not appear to be adequate length to the catheter portion. The patient is denying any symptoms. No arm pain. No chest pain or dyspnea. No palpitations. No fever or chills noted. -: hour(s) Location: right, upper extremity Severity scale (1-10): 0 Improves with: none Worsens with: none - Related Data Home Medications Medication Instructions Recorded Confirmed Cholecalciferol [Vitamin D3 (25 2,000 unit PO DAILY@1700 01/04/16 12/23/18 Mcg = 1000 Iu)] Ferrous Sulfate [Iron (65 MG 325 mg PO DAILY@1700 01/04/16 12/23/18 Elemental)] L.acidoph,Paracasei, B.lactis 1 cap PO DAILY@1700 01/04/16 12/23/18 [Probiotic] Multivitamins, Thera [Multivitamin 1 tab PO DAILY@0 01/09/17 12/23/18 (formulary)] Zinc 50 mg PO DAILY@1700 07/17/18 12/23/18 Aspirin 81 mg PO DAILY@0 11/29/18 12/23/18 Bisacodyl [Dulcolax] 10 mg RECTAL DAILY PRN 11/29/18 12/23/18 Magnesium Hydroxide [Milk of 2,400 mg PO DAILY PRN 11/29/18 12/23/18 Magnesia] Metoprolol Tartrate [Lopressor] 50 mg PO BID@0900,2100 11/29/18 12/23/18 Na Phos,M-B/Na Phos,Di-Ba [Fleet 133 ml RECTAL DAILY PRN 11/29/18 12/23/18 Adult] Acetaminophen Tab [Tylenol Tab] 650 mg PO Q4H PRN 12/23/18 12/23/18 Antifungal Cream 1% 1 applic TOPICAL BID@0900,209912/23/18 12/23/18 Clopidogrel [Plavix] 75 mg PO DAILY@89912/23/18 12/23/18 Darbepoetin Ruddy [Aranesp] 40 mcg SQ MO 12/23/18 12/23/18 Ensure 1 can PO HS 12/23/18 12/23/18 Furosemide [Lasix] 40 mg PO BID@0900,209912/23/18 12/23/18 Gabapentin [Neurontin] 100 mg PO BID@0900,209912/23/18 12/23/18 Glucagon Emergency Kit 1 mg IM ONCE PRN 12/23/18 12/23/18 INSULIN ASPART (NovoLOG) [NovoLOG See Protocol SQ AC-TID 12/23/18 12/23/18 (formulary)] Lactulose [Cephulac] 13 gm PO HS 12/23/18 12/23/18 Potassium Chloride [Klor-Con 20] 20 meq PO HS 12/23/18 12/23/18 Sennosides-Docusate Sodium 2 tab PO HS 12/23/18 12/23/18 [Senokot-S] Sodium Chloride [Saline Nasal 2 spray EA NOSTRIL Q2H PRN 12/23/18 12/23/18 [place]] Tamsulosin [Flomax] 0.4 mg PO HS 12/23/18 12/23/18 traMADol HCL 50 mg PO Q6H PRN 12/23/18 12/23/18 Previous Rx's Medication Instructions Recorded Albuterol Inhaler [Ventolin Hfa 1 - 2 puff INHALATION RT-Q6H PRN 11/11/18 Inhaler] #1 inhaler Amiodarone [Cordarone] 200 mg PO DAILY #15 tab 11/11/18 Insulin Detemir [Levemir Flextouch] 10 units SQ HS 30 Days #3 pen 11/11/18 Acetaminophen-Codeine 300-30mg 1 - 2 tab PO Q6H PRN #6 tab 12/13/18 [Tylenol w/codeine #3] Atorvastatin [Lipitor] 40 mg PO HS tab 12/13/18 Cefepime HCl [Maxipime] 2 gm IV Q12H #20 vial 12/13/18 Escitalopram [Lexapro] 10 mg PO HS tab 12/13/18 Heparin Sodium,Porcine [Heparin 5,000 unit SQ Q12HR vial 12/13/18 Sodium] Pantoprazole [Protonix] 40 mg PO AC-BRKFST tablet. 12/13/18 Allergies Allergy/AdvReac Type Severity Reaction Status Date / Time No Known Allergies Allergy Verified 12/23/18 08:22 Review of Systems ROS Statement: Those systems with pertinent positive or pertinent negative responses have been documented in the HPI. ROS Other: All systems not noted in ROS Statement are negative. Constitutional: Denies: fever, chills Respiratory: Denies: cough, dyspnea Cardiovascular: Denies: chest pain, palpitations Past Medical History Past Medical History: Atrial Fibrillation, Coronary Artery Disease (CAD), Heart Failure, COPD, Diabetes Mellitus, Eye Disorder, Hyperlipidemia, Hypertension, Osteoarthritis (OA), Renal Disease, Sleep Apnea/CPAP/BIPAP Additional Past Medical History / Comment(s): SOB w/exertion,CATARACTS, sleep apnea without home CPAP use History of Any Multi-Drug Resistant Organisms: None Reported Past Surgical History: Adenoidectomy, Heart Catheterization, Heart Catheterization With Stent, Tonsillectomy Additional Past Surgical History / Comment(s): FAUSTINO,COLONOSCOPY, heart cath 09/11/18, heart catheterization 09/24/2018 with drug-eluting stent placed to the LAD mitral valve repair on 10/31/2018. Past Anesthesia/Blood Transfusion Reactions: No Reported Reaction Additional Past Anesthesia/Blood Transfusion Reaction / Comment(s): no hx blood transfusion Date of Last Stent Placement:: September 2018 Past Psychological History: No Psychological Hx Reported Smoking Status: Former smoker Past Alcohol Use History: Rare Past Drug Use History: None Reported - Past Family History Father Family Medical History: Cancer, Diabetes Mellitus Additional Family Medical History / Comment(s): BLADDER CANCER Mother Family Medical History: Congestive Heart Failure (CHF) Additional Family Medical History / Comment(s): AT AGE 68 General Exam Limitations: no limitations General appearance: alert, in no apparent distress Respiratory exam: Present: normal lung sounds bilaterally. Absent: respiratory distress, wheezes, rales, rhonchi, stridor Cardiovascular Exam: Present: regular rate, normal rhythm, normal heart sounds. Absent: systolic murmur, diastolic murmur, rubs, gallop Extremities exam: Present: normal inspection. Absent: tenderness Skin exam: Present: warm, dry, intact, normal color. Absent: rash Course Vital Signs 12/23/18 12/23/18 12/23/18 01:04 02:30 03:00 Temperature 98.1 F Pulse Rate 63 60 61 Pulse Rate [ Pulse Oximetery ] Respiratory 20 22 20 Rate Blood Pressure 122/80 126/52 128/63 Blood Pressure [Supine] O2 Sat by Pulse 94 L 96 97 Oximetry 12/23/18 12/23/18 12/23/18 04:00 04:30 05:00 Temperature Pulse Rate 61 59 L 60 Pulse Rate [ Pulse Oximetery ] Respiratory 18 13 15 Rate Blood Pressure 121/65 123/70 112/63 Blood Pressure [Supine] O2 Sat by Pulse 95 95 96 Oximetry 12/23/18 12/23/18 12/23/18 05:30 05:54 06:00 Temperature 96.9 F L Pulse Rate 60 63 Pulse Rate [ 60 Pulse Oximetery ] Respiratory 12 15 22 Rate Blood Pressure 130/59 116/61 Blood Pressure 151/70 [Supine] O2 Sat by Pulse 95 100 96 Oximetry Medical Decision Making - Medical Decision Making This patient is a 73-year-old man sent from his long-term care facility to investigate whether there is a retained portion of the midline catheter in his right arm. The patient had this removed earlier tonight and when they compared with a new one there appeared to be reportedly approximately 3/8 inch portion that appear to be missing. They did send the catheter and it does appear to have irregular and rather than the usual tapered catheter and. The patient has had films of the arm and CT of the chest not feeling foreign body, will admit to have interventional review whether additional imaging may help to delineate this question. I addition there is remarkable made of possible infiltrate patient will have Dr. Burrell who knows him see him as well. Disposition Clinical Impression: Complication of intravenous catheter site Disposition: ADMITTED IP TO THIS HOSP Condition: Good Is patient prescribed a controlled substance at d/c from ED?: No
--- NOTE | 2018-12-23 01:50 | XR ---
EXAMINATION TYPE: XR humerus RT DATE OF EXAM: 12/23/2018 COMPARISON: NONE HISTORY: Possible fractured PICC line catheter TECHNIQUE: 2 views FINDINGS: There is right-sided PICC line catheter noted over the medial aspect of the mid and proxima l humerus. Catheter appears continuous. I do not see a break. The distal end of the catheter is not i ncluded on the exam. IMPRESSION: No humerus fracture. I do not see a fracture of the catheter.
--- NOTE | 2018-12-23 02:29 | XR ---
EXAMINATION TYPE: XR chest 1V portable DATE OF EXAM: 12/23/2018 COMPARISON: 12/09/2018 HISTORY: Possible foreign body TECHNIQUE: Single frontal view of the chest is obtained. FINDINGS: There is a right-sided PICC line catheter in the tip is over the superior vena cava. There is mild pulmonary edema. There are sternal wires. There are chest leads. IMPRESSION: There is some pulmonary mild edema that is unchanged. PICC line catheter appears intact without evidence of a break.
--- NOTE | 2018-12-23 02:55 | CT ---
EXAMINATION TYPE: CT chest wo con DATE OF EXAM: 12/23/2018 COMPARISON: 1116 HISTORY: dyspnea broken PICC line catheter CT DLP: 557.1 mGycm. Automated Exposure Control for Dose Reduction was Utilized. TECHNIQUE: CT scan of the thorax is performed without IV contrast. FINDINGS: There is a right subclavian catheter with the tip in the superior vena cava. I do not see a break in the catheter. There is no mediastinal adenopathy. Heart is enlarged. There is moderate left pleural effusion. There is left lower lobe airspace infiltrate and atelectasis. There is dense calcification of the mitral a nnulus. There is apparent surgery at the aortic valve. There is no pericardial effusion. There is mil d pulmonary interstitial edema. The bony thorax appears intact. There are sternal wires. IMPRESSION: The PICC line catheter has tip in the lower superior vena cava. I do not see a break in t he catheter. Cardiomegaly. There is clearing of small right pleural effusion compared to old exam. There is new le ft pleural effusion and left lower lobe infiltrate and atelectasis.
[2018-12-23] MEDS ORDERED: NALOXONE 0.4 MG/ML 1 ML VIAL IV PRN (05:19)
[2018-12-23] MEDS ORDERED: SENNOSIDES-DOCUSATE SODIUM 1 EACH TAB PO PRN (05:24)
[2018-12-23] MEDS ORDERED: MAGNESIUM HYDROXIDE 2,400 MG/10 ML CUP PO PRN (05:24)
[2018-12-23] MEDS ORDERED: BISACODYL 10 MG SUPP RECTAL PRN (05:24)
[2018-12-23] MEDS ORDERED: NA PHOS,M-B/NA PHOS,DI-BA 133 ML ENEMA RECTAL PRN (05:24)
[2018-12-23] MEDS ORDERED: traMADol 50 MG TAB PO PRN (05:24)
[2018-12-23] MEDS ORDERED: ALBUTEROL NEBULIZED 2.5 MG/3 ML INHALATION PRN (05:24)
[2018-12-23] MEDS ORDERED: SODIUM CHLORIDE 0.9% 1,000 ML IV SCH (05:30)
[2018-12-23] MEDS ORDERED: NON FORMULARY DRUG (Cefepime Hcl [Maxipime] 2 GM) IV SCH (05:30)
[2018-12-23 06:37] VITALS: PULSE 60; BMI 36.9
[2018-12-23 07:02] LABS: Glucose,Whole Blood 148 mg/dL (75-99)
[2018-12-23 07:24] LABS: Glucose,Whole Blood 145 mg/dL (75-99)
[2018-12-23] MEDS ORDERED: INSULIN ASPART (NovoLOG) 100 UNIT/ML VIAL SQ SCH (07:30)
[2018-12-23] MEDS ORDERED: PANTOPRAZOLE 40 MG TABLET PO SCH (07:30)
[2018-12-23] MEDS ORDERED: METOPROLOL TARTRATE 50 MG TAB PO SCH (08:00)
[2018-12-23] MEDS ORDERED: FUROSEMIDE 40 MG TAB PO SCH (09:00)
[2018-12-23] MEDS ORDERED: HEPARIN SODIUM,PORCINE 5,000 UNIT/ML 1 ML VIAL SQ SCH (09:00)
[2018-12-23] MEDS ORDERED: AMIODARONE 200 MG TAB PO SCH (09:00)
[2018-12-23] MEDS ORDERED: CLOPIDOGREL 75 MG TAB PO SCH (09:00)
[2018-12-23] MEDS ORDERED: CEFEPIME 2 GM in SODIUM CHLORIDE 0.9% 100 ML IVPB SCH (09:00)
--- NOTE | 2018-12-23 09:06 | P.HPIM ---
History of Present Illness 73-year-old the male was sent in from a subacute rehabilitation because of a broken midline and further evaluation for that broken midline there was concerns about missing and broken line in the arm vasculature. Patient denied any other symptoms at this time patient will be discharged today. Patient had workup for that missing PICC line P is remaining piece was removed and patient received and other PICC line. The new PICC line is in appropriate position. The possible missing broken off PICC line is not found on the CAT scan in either the arm vasculature heart or pulmonary vasculature. Nothing much else can be done. Patient will be discharged back to subacute rehabilitation patient and any fever chills nausea vomiting abdominal pain chest pain. Do not have any lab data available. Patient will undergo his 1 weekly labs and subacute rehabilitation follow-up with infectious disease as an outpatient patient is on IV antibiotics from his recent hospitalization. Patient was treated for pseudomonal infection appears to be cellulitis of both extremities Review of Systems REVIEW OF SYSTEMS: CONSTITUTIONAL: No fever, no malaise, no fatigue. HEENT: No recent visual problems or hearing problems. Denied any sore throat. CARDIOVASCULAR: No chest pain, orthopnea, PND, no palpitations, no syncope. PULMONARY: No shortness of breath, no cough, no hemoptysis. GASTROINTESTINAL: No diarrhea, no nausea, no vomiting, no abdominal pain. NEUROLOGICAL: No headaches, no weakness, no numbness. HEMATOLOGICAL: Denies any bleeding or petechiae. GENITOURINARY: Denies any burning micturition, frequency, or urgency. MUSCULOSKELETAL/RHEUMATOLOGICAL: Denies any joint pain, swelling, or any muscle pain. ENDOCRINE: Denies any polyuria or polydipsia. The rest of the 14-point review of systems is negative. Past Medical History Past Medical History: Atrial Fibrillation, Coronary Artery Disease (CAD), Heart Failure, COPD, Diabetes Mellitus, Eye Disorder, Hyperlipidemia, Hypertension, Osteoarthritis (OA), Renal Disease, Sleep Apnea/CPAP/BIPAP Additional Past Medical History / Comment(s): SOB w/exertion,CATARACTS, sleep apnea without home CPAP use History of Any Multi-Drug Resistant Organisms: None Reported Past Surgical History: Adenoidectomy, Heart Catheterization, Heart Catheterization With Stent, Tonsillectomy Additional Past Surgical History / Comment(s): FAUSTINO,COLONOSCOPY, heart cath 09/11/18, heart catheterization 09/24/2018 with drug-eluting stent placed to the LAD mitral valve repair on 10/31/2018. Past Anesthesia/Blood Transfusion Reactions: No Reported Reaction Additional Past Anesthesia/Blood Transfusion Reaction / Comment(s): no hx blood transfusion Date of Last Stent Placement:: September 2018 Past Psychological History: No Psychological Hx Reported Smoking Status: Former smoker Past Alcohol Use History: Rare Past Drug Use History: None Reported - Past Family History Father Family Medical History: Cancer, Diabetes Mellitus Additional Family Medical History / Comment(s): BLADDER CANCER Mother Family Medical History: Congestive Heart Failure (CHF) Additional Family Medical History / Comment(s): AT AGE 68 Medications and Allergies Home Medications Medication Instructions Recorded Confirmed Type Cholecalciferol [Vitamin D3 (25 2,000 unit PO DAILY@1700 01/04/16 12/23/18 History Mcg = 1000 Iu)] Ferrous Sulfate [Iron (65 MG 325 mg PO DAILY@1700 01/04/16 12/23/18 History Elemental)] L.acidoph,Paracasei, B.lactis 1 cap PO DAILY@1700 01/04/16 12/23/18 History [Probiotic] Multivitamins, Thera [Multivitamin 1 tab PO DAILY@1700 01/09/17 12/23/18 History (formulary)] Zinc 50 mg PO DAILY@1700 07/17/18 12/23/18 History Albuterol Inhaler [Ventolin Hfa 1 - 2 puff INHALATION RT-Q6H PRN 11/11/18 12/23/18 Rx Inhaler] #1 inhaler Amiodarone [Cordarone] 200 mg PO DAILY #15 tab 11/11/18 12/23/18 Rx Insulin Detemir [Levemir Flextouch] 10 units SQ HS 30 Days #3 pen 11/11/18 12/23/18 Rx Aspirin 81 mg PO DAILY@1700 11/29/18 12/23/18 History Bisacodyl [Dulcolax] 10 mg RECTAL DAILY PRN 11/29/18 12/23/18 History Magnesium Hydroxide [Milk of 2,400 mg PO DAILY PRN 11/29/18 12/23/18 History Magnesia] Metoprolol Tartrate [Lopressor] 50 mg PO BID@0900,2100 11/29/18 12/23/18 History Na Phos,M-B/Na Phos,Di-Ba [Fleet 133 ml RECTAL DAILY PRN 11/29/18 12/23/18 History Adult] Acetaminophen-Codeine 300-30mg 1 - 2 tab PO Q6H PRN #6 tab 12/13/18 12/23/18 Rx [Tylenol w/codeine #3] Atorvastatin [Lipitor] 40 mg PO HS tab 12/13/18 12/23/18 Rx Cefepime HCl [Maxipime] 2 gm IV Q12H #20 vial 12/13/18 12/23/18 Rx Escitalopram [Lexapro] 10 mg PO HS tab 12/13/18 12/23/18 Rx Heparin Sodium,Porcine [Heparin 5,000 unit SQ Q12HR vial 12/13/18 12/23/18 Rx Sodium] Pantoprazole [Protonix] 40 mg PO AC-BRKFST tablet. 12/13/18 12/23/18 Rx Acetaminophen Tab [Tylenol Tab] 650 mg PO Q4H PRN 12/23/18 12/23/18 History Antifungal Cream 1% 1 applic TOPICAL BID@0900,209912/23/18 12/23/18 History Clopidogrel [Plavix] 75 mg PO DAILY@89912/23/18 12/23/18 History Darbepoetin Ruddy [Aranesp] 40 mcg SQ MO 12/23/18 12/23/18 History Ensure 1 can PO HS 12/23/18 12/23/18 History Furosemide [Lasix] 40 mg PO BID@0900,209912/23/18 12/23/18 History Gabapentin [Neurontin] 100 mg PO BID@0900,209912/23/18 12/23/18 History Glucagon Emergency Kit 1 mg IM ONCE PRN 12/23/18 12/23/18 History INSULIN ASPART (NovoLOG) [NovoLOG See Protocol SQ AC-TID 12/23/18 12/23/18 History (formulary)] Lactulose [Cephulac] 13 gm PO HS 12/23/18 12/23/18 History Potassium Chloride [Klor-Con 20] 20 meq PO HS 12/23/18 12/23/18 History Sennosides-Docusate Sodium 2 tab PO HS 12/23/18 12/23/18 History [Senokot-S] Sodium Chloride [Saline Nasal 2 spray EA NOSTRIL Q2H PRN 12/23/18 12/23/18 History [place]] Tamsulosin [Flomax] 0.4 mg PO HS 12/23/18 12/23/18 History traMADol HCL 50 mg PO Q6H PRN 12/23/18 12/23/18 History Allergies Allergy/AdvReac Type Severity Reaction Status Date / Time No Known Allergies Allergy Verified 12/23/18 08:22 Physical Exam Vitals: Vital Signs Temp Pulse Pulse Resp BP BP Pulse Ox 12/23/18 06:00 63 22 116/61 96 12/23/18 05:54 96.9 F L 60 15 151/70 100 12/23/18 05:30 60 12 130/59 95 12/23/18 05:00 60 15 112/63 96 12/23/18 04:30 59 L 13 123/70 95 12/23/18 04:00 61 18 121/65 95 12/23/18 03:00 61 20 128/63 97 12/23/18 02:30 60 22 126/52 96 12/23/18 01:04 98.1 F 63 20 122/80 94 L Intake and Output 12/22/18 12/23/18 12/23/18 22:59 06:59 14:59 Other: # Voids 0 Weight 103.918 kg PHYSICAL EXAMINATION: GENERAL: The patient is alert and oriented x3, not in any acute distress. Well developed, well nourished. HEENT: Pupils are round and equally reacting to light. EOMI. No scleral icterus. No conjunctival pallor. Normocephalic, atraumatic. No pharyngeal erythema. No thyromegaly. CARDIOVASCULAR: S1 and S2 present. No murmurs, rubs, or gallops. PULMONARY: Chest is clear to auscultation, no wheezing or crackles. ABDOMEN: Soft, nontender, nondistended, normoactive bowel sounds. No palpable organomegaly. MUSCULOSKELETAL: No joint swelling or deformity. Patient's new PICC line doesn't appear to be infected and is in appropriate location EXTREMITIES: No cyanosis, clubbing, or pedal edema. NEUROLOGICAL: Gross neurological examination did not reveal any focal deficits. SKIN: No rashes. Results Labs: Abnormal Lab Results - Last 24 Hours (Table) 12/23/18 12/23/18 Range/Units 07:01 07:20 POC Glucose (mg/dL) 148 H 145 H (75-99) mg/dL Thrombosis Risk Factor Assmnt - Choose All That Apply Any of the Below Risk Factors Present?: Yes Each Factor Represents 1 point: Obesity (BMI >25), Sepsis (< 1month), Serious lung disease incl. pneumonia (< 1month), Swollen legs (current) Other Risk Factors: Yes Each Risk Factor Represents 2 Points: Age 61-74 years Thrombosis Risk Factor Assessment Total Risk Factor Score: 6 Thrombosis Risk Factor Assessment Level: High Risk Assessment and Plan Plan: -Missing older midline catheter tip: Further anticoagulation as mentioned above no further intervention is necessary that no catheter is found in pulmonary vasculature or heart in the arm vasculature. Patient doesn't have any symptoms at this time. Patient will be discharged today -Infiltrate in the lungs: Patient doesn't have any pneumonic infiltrate patient doesn't have any symptoms of pneumonia at this time patient is already on cefepime will not need new antibiotics antibiotics, patient will be discharged today. History of atrial fibrillation rate controlled on anticoagulation which will be continued -coronary artery disease - COPD without any acute exacerbation -type 2 diabetes mellitus -hyperlipidemia - hypertension --Sleep apnea for which patient uses CPAP machine which will be continued.
--- NOTE | 2018-12-23 09:07 | P.DS ---
Providers Date of admission: 12/23/18 05:19 Attending physician: Bakari Murphy MD Consults: 12/23/18 05:21 Consult Physician Routine Consulting Provider: Cole Burrell Consult Reason/Comments: possible pneumonia Do you want consulting provider notified?: Yes Primary care physician: Jordan Wade [facility] Course: Refer to my HPI for further details of hospitalization Plan - Discharge Summary Discharge Rx Participant: No New Discharge Prescriptions: Continue L.acidoph,Paracasei, B.lactis [Probiotic] 1 cap PO DAILY@1700 Ferrous Sulfate [Iron (65 MG Elemental)] 325 mg PO DAILY@1700 Cholecalciferol [Vitamin D3 (25 Mcg = 1000 Iu)] 2,000 unit PO DAILY@1700 Multivitamins, Thera [Multivitamin (formulary)] 1 tab PO DAILY@1700 Zinc 50 mg PO DAILY@1700 Albuterol Inhaler [Ventolin Hfa Inhaler] 1 - 2 puff INHALATION RT-Q6H PRN #1 inhaler PRN Reason: Shortness Of Breath Or Wheezing Amiodarone [Cordarone] 200 mg PO DAILY #15 tab Insulin Detemir [Levemir Flextouch] 10 units SQ HS 30 Days #3 pen Aspirin 81 mg PO DAILY@1700 Bisacodyl [Dulcolax] 10 mg RECTAL DAILY PRN PRN Reason: Constipation Magnesium Hydroxide [Milk of Magnesia] 2,400 mg PO DAILY PRN PRN Reason: Constipation Metoprolol Tartrate [Lopressor] 50 mg PO BID@0900,2100 Na Phos,M-B/Na Phos,Di-Ba [Fleet Adult] 133 ml RECTAL DAILY PRN PRN Reason: Constipation Cefepime HCl [Maxipime] 2 gm IV Q12H #20 vial Heparin Sodium,Porcine [Heparin Sodium] 5,000 unit SQ Q12HR vial Escitalopram [Lexapro] 10 mg PO HS tab Atorvastatin [Lipitor] 40 mg PO HS tab Pantoprazole [Protonix] 40 mg PO AC-BRKFST tablet. Acetaminophen-Codeine 300-30mg [Tylenol w/codeine #3] 1 - 2 tab PO Q6H PRN #6 tab PRN Reason: Pain No Action Antifungal Cream 1% 1 applic TOPICAL BID@0900,2100 Acetaminophen Tab [Tylenol Tab] 650 mg PO Q4H PRN PRN Reason: Pain Clopidogrel [Plavix] 75 mg PO DAILY@0900 Darbepoetin Ruddy [Aranesp] 40 mcg SQ MO Ensure 1 can PO HS Furosemide [Lasix] 40 mg PO BID@899,2099 Gabapentin [Neurontin] 100 mg PO BID@899,2099 Glucagon Emergency Kit 1 mg IM ONCE PRN PRN Reason: Blood Sugar - Low INSULIN ASPART (NovoLOG) [NovoLOG (formulary)] See Protocol SQ AC-TID Lactulose [Cephulac] 13 gm PO HS Potassium Chloride [Klor-Con 20] 20 meq PO HS Sennosides-Docusate Sodium [Senokot-S] 2 tab PO HS Sodium Chloride [Saline Nasal [place]] 2 spray EA NOSTRIL Q2H PRN PRN Reason: DRY NOSE Tamsulosin [Flomax] 0.4 mg PO HS traMADol HCL 50 mg PO Q6H PRN PRN Reason: Pain Discharge Medication List Cholecalciferol [Vitamin D3 (25 Mcg = 1000 Iu)] 2,000 unit PO DAILY@169901/04/16 [History] Ferrous Sulfate [Iron (65 MG Elemental)] 325 mg PO DAILY@169901/04/16 [History] L.acidoph,Paracasei, B.lactis [Probiotic] 1 cap PO DAILY@169901/04/16 [History] Multivitamins, Thera [Multivitamin (formulary)] 1 tab PO DAILY@169901/09/17 [History] Zinc 50 mg PO DAILY@169907/17/18 [History] Albuterol Inhaler [Ventolin Hfa Inhaler] 1 - 2 puff INHALATION RT-Q6H PRN #1 inhaler 11/11/18 [Rx] Amiodarone [Cordarone] 200 mg PO DAILY #15 tab 11/11/18 [Rx] Insulin Detemir [Levemir Flextouch] 10 units SQ HS 30 Days #3 pen 11/11/18 [Rx] Aspirin 81 mg PO DAILY@169911/29/18 [History] Bisacodyl [Dulcolax] 10 mg RECTAL DAILY PRN 11/29/18 [History] Magnesium Hydroxide [Milk of Magnesia] 2,400 mg PO DAILY PRN 11/29/18 [History] Metoprolol Tartrate [Lopressor] 50 mg PO BID@0900,209911/29/18 [History] Na Phos,M-B/Na Phos,Di-Ba [Fleet Adult] 133 ml RECTAL DAILY PRN 11/29/18 [History] Acetaminophen-Codeine 300-30mg [Tylenol w/codeine #3] 1 - 2 tab PO Q6H PRN #6 tab 12/13/18 [Rx] Atorvastatin [Lipitor] 40 mg PO HS tab 12/13/18 [Rx] Cefepime HCl [Maxipime] 2 gm IV Q12H #20 vial 12/13/18 [Rx] Escitalopram [Lexapro] 10 mg PO HS tab 12/13/18 [Rx] Heparin Sodium,Porcine [Heparin Sodium] 5,000 unit SQ Q12HR vial 12/13/18 [Rx] Pantoprazole [Protonix] 40 mg PO AC-BRKFST tablet. 12/13/18 [Rx] Acetaminophen Tab [Tylenol Tab] 650 mg PO Q4H PRN 12/23/18 [History] Antifungal Cream 1% 1 applic TOPICAL BID@899,209912/23/18 [History] Clopidogrel [Plavix] 75 mg PO DAILY@89912/23/18 [History] Darbepoetin Ruddy [Aranesp] 40 mcg SQ MO 12/23/18 [History] Ensure 1 can PO HS 12/23/18 [History] Furosemide [Lasix] 40 mg PO BID@00,209912/23/18 [History] Gabapentin [Neurontin] 100 mg PO BID@00,209912/23/18 [History] Glucagon Emergency Kit 1 mg IM ONCE PRN 12/23/18 [History] INSULIN ASPART (NovoLOG) [NovoLOG (formulary)] See Protocol SQ AC-TID 12/23/18 [History] Lactulose [Cephulac] 13 gm PO HS 12/23/18 [History] Potassium Chloride [Klor-Con 20] 20 meq PO HS 12/23/18 [History] Sennosides-Docusate Sodium [Senokot-S] 2 tab PO HS 12/23/18 [History] Sodium Chloride [Saline Nasal [place]] 2 spray EA NOSTRIL Q2H PRN 12/23/18 [History] Tamsulosin [Flomax] 0.4 mg PO HS 12/23/18 [History] traMADol HCL 50 mg PO Q6H PRN 12/23/18 [History] Follow up Appointment(s)/Referral(s): Jordan Patel III, MD [Primary Care Provider] - 3 Days Discharge Disposition: TRANSFER TO SNF/ECF
[2018-12-23 09:47] VITALS: BP 141/75; RESP 18; TEMP 97.5
[2018-12-23] MEDS ORDERED: CHOLECALCIFEROL 1,000 UNIT TAB PO SCH (17:00)
[2018-12-23] MEDS ORDERED: MULTIVITAMINS, THERA 1 EACH TAB PO SCH (17:00)
[2018-12-23] MEDS ORDERED: FERROUS SULFATE 325 MG TAB PO SCH (17:00)
[2018-12-23] MEDS ORDERED: TAMSULOSIN 0.4 MG CAP.ER.24H PO SCH (18:30)
[2018-12-23] MEDS ORDERED: ATORVASTATIN 40 MG TAB PO SCH (21:00)
[2018-12-23] MEDS ORDERED: INSULIN DETEMIR (LEVEMIR) 100 UNIT/ML SYR SQ SCH (21:00)
== END 2018-12-23 11:53 | DRG 949 ==
LOC: EC 01:02 → 3SCARD 05:19
PROVIDERS: ADMIT Internal Medicine; ATTEND Internal Medicine
DX: Z45.2 Encounter for adjustment and management of vascular access device (principal); L03.116 Cellulitis of left lower limb; L03.115 Cellulitis of right lower limb; I11.0 Hypertensive heart disease with heart failure; I50.9 Heart failure, unspecified; E11.36 Type 2 diabetes mellitus with diabetic cataract; I48.91 Unspecified atrial fibrillation; J44.9 Chronic obstructive pulmonary disease, unspecified; H26.9 Unspecified cataract; I25.10 Atherosclerotic heart disease of native coronary artery without angina pectoris; E78.5 Hyperlipidemia, unspecified; G47.30 Sleep apnea, unspecified; Z79.82 Long term (current) use of aspirin; B96.5 Pseudomonas (aeruginosa) (mallei) (pseudomallei) as the cause of diseases classified elsewhere; M19.90 Unspecified osteoarthritis, unspecified site; Z79.4 Long term (current) use of insulin; Z79.02 Long term (current) use of antithrombotics/antiplatelets; Z79.899 Other long term (current) drug therapy; Z95.5 Presence of coronary angioplasty implant and graft; Z99.89 Dependence on other enabling machines and devices; Z95.2 Presence of prosthetic heart valve; Z87.891 Personal history of nicotine dependence; Z83.3 Family history of diabetes mellitus; Z80.52 Family history of malignant neoplasm of bladder; Z82.49 Family history of ischemic heart disease and other diseases of the circulatory system
CPT/HCPCS: 71045; 71250; 99285

== ENCOUNTER 2019-01-09 20:53 | Inpatient (IN) | payer MEDICARE ==
[2019-01-09] MEDS ORDERED: ACETAMINOPHEN TAB 500 MG TAB PO STA (21:22)
[2019-01-09] MEDS ORDERED: IPRATROPIUM-ALBUTEROL 3 ML NEB INHALATION STA (21:23)
--- NOTE | 2019-01-09 21:34 | ED ---
General Adult HPI - General Chief complaint: Fever Stated complaint: Weakness Time Seen by Provider: 01/09/19 21:06 Source: patient, EMS, RN notes reviewed Mode of arrival: EMS Limitations: no limitations - History of Present Illness Initial comments: Patient is a pleasant 73-year-old male presenting to the emergency Department with complaints of fatigue. Onset of symptoms was today. Patient feels more drowsy than normal. Patient has been sleeping more. Patient did not eat dinner tonight because he was too tired. Patient states he does feel short of breath. Patient was in the hospital with sepsis diagnosis last month with similar complaints. No confusion or isolated area of weakness. - Related Data Home Medications Medication Instructions Recorded Confirmed Cholecalciferol [Vitamin D3 (25 2,000 unit PO DAILY@1700 01/04/16 01/09/19 Mcg = 1000 Iu)] Ferrous Sulfate [Iron (65 MG 325 mg PO DAILY 01/04/16 01/09/19 Elemental)] L.acidoph,Paracasei, B.lactis 1 cap PO DAILY@0 01/04/16 01/09/19 [Probiotic] Multivitamins, Thera [Multivitamin 1 tab PO DAILY@1700 01/09/17 01/09/19 (formulary)] Zinc 50 mg PO DAILY@1700 07/17/18 01/09/19 Aspirin 81 mg PO DAILY@1700 11/29/18 01/09/19 Magnesium Hydroxide [Milk of 2,400 mg PO DAILY PRN 11/29/18 01/09/19 Magnesia] Metoprolol Tartrate [Lopressor] 50 mg PO BID@0900,209911/29/18 01/09/19 Na Phos,M-B/Na Phos,Di-Ba [Fleet 133 ml RECTAL DAILY PRN 11/29/18 01/09/19 Adult] Acetaminophen Tab [Tylenol Tab] 650 mg PO Q4H PRN 12/23/18 01/09/19 Clopidogrel [Plavix] 75 mg PO DAILY@0900 12/23/18 01/09/19 Darbepoetin Ruddy [Aranesp] 40 mcg SQ TU 12/23/18 01/09/19 Furosemide [Lasix] 40 mg PO BID@0900,209912/23/18 01/09/19 Gabapentin [Neurontin] 100 mg PO BID@0900,2100 12/23/18 01/09/19 INSULIN ASPART (NovoLOG) [NovoLOG See Protocol SQ ACHS 12/23/18 01/09/19 (formulary)] Potassium Chloride [Klor-Con 20] 20 meq PO DAILY 12/23/18 01/09/19 Sennosides-Docusate Sodium 2 tab PO BID 12/23/18 01/09/19 [Senokot-S] Tamsulosin [Flomax] 0.4 mg PO HS 12/23/18 01/09/19 traMADol HCL 50 mg PO Q6H PRN 12/23/18 01/09/19 Cetirizine HCl [Zyrtec] 10 mg PO DAILY 01/09/19 01/09/19 SILVER sulfADIAZINE Cream 1 applic TOPICAL HS 01/09/19 01/09/19 [Silvadene 1% Cream] Previous Rx's Medication Instructions Recorded Albuterol Inhaler [Ventolin Hfa 1 - 2 puff INHALATION RT-Q6H PRN 11/11/18 Inhaler] #1 inhaler Amiodarone [Cordarone] 200 mg PO DAILY #15 tab 11/11/18 Insulin Detemir [Levemir Flextouch] 10 units SQ HS 30 Days #3 pen 11/11/18 Acetaminophen-Codeine 300-30mg 1 - 2 tab PO Q6H PRN #6 tab 12/13/18 [Tylenol w/codeine #3] Atorvastatin [Lipitor] 40 mg PO HS tab 12/13/18 Escitalopram [Lexapro] 10 mg PO HS tab 12/13/18 Pantoprazole [Protonix] 40 mg PO AC-BRKFST tablet. 12/13/18 Allergies Allergy/AdvReac Type Severity Reaction Status Date / Time No Known Allergies Allergy Verified 01/09/19 21:16 Review of Systems ROS Statement: Those systems with pertinent positive or pertinent negative responses have been documented in the HPI. ROS Other: All systems not noted in ROS Statement are negative. Constitutional: Reports: fever (EMS states patient felt warm) Eyes: Denies: eye pain ENT: Denies: ear pain Respiratory: Reports: dyspnea. Denies: cough Cardiovascular: Denies: chest pain Endocrine: Reports: fatigue Gastrointestinal: Denies: abdominal pain Genitourinary: Denies: dysuria Musculoskeletal: Denies: back pain Skin: Denies: rash Neurological: Denies: weakness Past Medical History Past Medical History: Atrial Fibrillation, Coronary Artery Disease (CAD), Heart Failure, COPD, Diabetes Mellitus, Eye Disorder, Hyperlipidemia, Hypertension, Osteoarthritis (OA), Renal Disease, Sleep Apnea/CPAP/BIPAP Additional Past Medical History / Comment(s): SOB w/exertion,CATARACTS, sleep apnea without home CPAP use History of Any Multi-Drug Resistant Organisms: None Reported Past Surgical History: Adenoidectomy, Heart Catheterization, Heart Ca theterization With Stent, Tonsillectomy Additional Past Surgical History / Comment(s): FAUSTINO,COLONOSCOPY, heart cath 09/11/18, heart catheterization 09/24/2018 with drug-eluting stent placed to the LAD mitral valve repair on 10/31/2018. Past Anesthesia/Blood Transfusion Reactions: No Reported Reaction Additional Past Anesthesia/Blood Transfusion Reaction / Comment(s): no hx blood transfusion Date of Last Stent Placement:: September 2018 Past Psychological History: No Psychological Hx Reported Smoking Status: Former smoker Past Alcohol Use History: Rare Past Drug Use History: None Reported - Past Family History Father Family Medical History: Cancer, Diabetes Mellitus Additional Family Medical History / Comment(s): BLADDER CANCER Mother Family Medical History: Congestive Heart Failure (CHF) Additional Family Medical History / Comment(s): AT AGE 68 General Exam Limitations: no limitations General appearance: alert, in no apparent distress Head exam: Present: normocephalic Eye exam: Present: normal appearance ENT exam: Present: normal oropharynx Neck exam: Present: normal inspection Respiratory exam: Present: rhonchi Cardiovascular Exam: Present: regular rate, normal rhythm GI/Abdominal exam: Present: soft. Absent: tenderness Extremities exam: Present: pedal edema (+1 bilateral). Absent: calf tenderness Neurological exam: Present: alert. Absent: motor sensory deficit Psychiatric exam: Present: normal affect, normal mood Skin exam: Present: normal color Course Vital Signs 01/09/19 01/09/19 01/09/19 20:55 21:58 22:07 Temperature 100.9 F H Pulse Rate 71 70 70 Respiratory 24 Rate Blood Pressure 138/66 O2 Sat by Pulse 93 L Oximetry - Reevaluation(s) Reevaluation #1: 01/09/19 23:33 Patient does meet sepsis criteria diagnosed at 2330. Blood culture has been ordered. Lactic acid has been ordered. IV antibiotics will be ordered. EKG Findings - EKG Comments: EKG Findings:: Sinus rhythm at 69. For screening AV block TN 228. QRS 106. QT 438. QTC 469. Normal axis. First-degree AV block. Incomplete right bundle- branch block. No acute ST change. Medical Decision Making - Medical Decision Making Patient reevaluated and updated. Dr. Mace has been paged for admission, covering for Dr. Patel. - Lab Data Result diagrams: 01/09/19 21:51 01/09/19 21:51 Lab Results 01/09/19 01/09/19 01/09/19 Range/Units 21:40 21:51 21:51 WBC 11.4 H (3.8-10.6) k/uL RBC 2.67 L (4.30-5.90) m/uL Hgb 7.9 L (13.0-17.5) gm/dL Hct 27.2 L (39.0-53.0) % MCV 102.0 H (80.0-100.0) fL MCH 29.5 (25.0-35.0) pg MCHC 28.9 L (31.0-37.0) g/dL RDW 19.0 H (11.5-15.5) % Plt Count 218 (150-450) k/uL Neutrophils % 91 % Lymphocytes % 3 % Monocytes % 4 % Eosinophils % 1 % Basophils % 1 % Neutrophils # 10.4 H (1.3-7.7) k/uL Lymphocytes # 0.3 L (1.0-4.8) k/uL Monocytes # 0.5 (0-1.0) k/uL Eosinophils # 0.1 (0-0.7) k/uL Basophils # 0.1 (0-0.2) k/uL Hypochromasia Marked Anisocytosis Slight Macrocytosis Moderate PT (9.0-12.0) sec INR (<1.2) APTT (22.0-30.0) sec Sodium 138 (137-145) mmol/L Potassium 5.4 H (3.5-5.1) mmol/L Chloride 98 (98-107) mmol/L Carbon Dioxide 31 H (22-30) mmol/L Anion Gap 9 mmol/L BUN 91 H (9-20) mg/dL Creatinine 2.86 H (0.66-1.25) mg/dL Est GFR (CKD-EPI)AfAm 24 (>60 ml/min/1.73 sqM) Est GFR (CKD-EPI)NonAf 21 (>60 ml/min/1.73 sqM) Glucose 122 H (74-99) mg/dL Plasma Lactic Acid Guy (0.7-2.0) mmol/L Calcium 9.0 (8.4-10.2) mg/dL Total Bilirubin 0.7 (0.2-1.3) mg/dL AST 39 (17-59) U/L ALT 28 (21-72) U/L Alkaline Phosphatase 132 H (38-126) U/L Total Protein 7.2 (6.3-8.2) g/dL Albumin 3.6 (3.5-5.0) g/dL Influenza Type A RNA Not Detected (Not Detectd) Influenza Type B (PCR) Not Detected (Not Detectd) 01/09/19 01/09/19 Range/Units 21:51 22:54 WBC (3.8-10.6) k/uL RBC (4.30-5.90) m/uL Hgb (13.0-17.5) gm/dL Hct (39.0-53.0) % MCV (80.0-100.0) fL MCH (25.0-35.0) pg MCHC (31.0-37.0) g/dL RDW (11.5-15.5) % Plt Count (150-450) k/uL Neutrophils % % Lymphocytes % % Monocytes % % Eosinophils % % Basophils % % Neutrophils # (1.3-7.7) k/uL Lymphocytes # (1.0-4.8) k/uL Monocytes # (0-1.0) k/uL Eosinophils # (0-0.7) k/uL Basophils # (0-0.2) k/uL Hypochromasia Anisocytosis Macrocytosis PT 12.2 H (9.0-12.0) sec INR 1.2 H (<1.2) APTT 24.5 (22.0-30.0) sec Sodium (137-145) mmol/L Potassium (3.5-5.1) mmol/L Chloride (98-107) mmol/L Carbon Dioxide (22-30) mmol/L Anion Gap mmol/L BUN (9-20) mg/dL Creatinine (0.66-1.25) mg/dL Est GFR (CKD-EPI)AfAm (>60 ml/min/1.73 sqM) Est GFR (CKD-EPI)NonAf (>60 ml/min/1.73 sqM) Glucose (74-99) mg/dL Plasma Lactic Acid Guy 1.2 (0.7-2.0) mmol/L Calcium (8.4-10.2) mg/dL Total Bilirubin (0.2-1.3) mg/dL AST (17-59) U/L ALT (21-72) U/L Alkaline Phosphatase (38-126) U/L Total Protein (6.3-8.2) g/dL Albumin (3.5-5.0) g/dL Influenza Type A RNA (Not Detectd) Influenza Type B (PCR) (Not Detectd) - Radiology Data Radiology results: image reviewed (Chest x-ray shows cardiomegaly. Left effusion. Right lower lobe opacity.) Critical Care Time Critical Care Time: Yes Total Critical Care Time: 33 Disposition Clinical Impression: Pneumonia, Sepsis, Acute renal failure (ARF) Disposition: ADMITTED IP TO THIS HOSP Condition: Serious Is patient prescribed a controlled substance at d/c from ED?: No Referrals: Jordan Patel III, MD [Primary Care Provider] - 1-2 days Decision Time: 23:33
[2019-01-09 22:37] LABS: Anisocytosis Slight; Basophils # (A) 0.1 k/uL (0-0.2); Basophils % (A) 1 %; Eosinophils # (A) 0.1 k/uL (0-0.7); Eosinophils % (A) 1 %; HCT 27.2 % (39.0-53.0); HGB 7.9 gm/dL (13.0-17.5); Hypochromasia Marked; Lymphocytes # (A) 0.3 k/uL (1.0-4.8); Lymphocytes % (A) 3 %; MCH 29.5 pg (25.0-35.0); MCHC 28.9 g/dL (31.0-37.0); Macrocytosis Moderate; Mean Platelet Volume 7.1; Monocytes # (A) 0.5 k/uL (0-1.0); Monocytes % (A) 4 %; Neutrophils # (A) 10.4 k/uL (1.3-7.7); Neutrophils % (A) 91 %; Platelet Count 218 k/uL (150-450); RBC 2.67 m/uL (4.30-5.90); WBC 11.4 k/uL (3.8-10.6)
[2019-01-09 22:46] LABS: INR 1.2 (<1.2); Partial Thromboplastin Time 24.5 sec (22.0-30.0); Prothrombin Time 12.2 sec (9.0-12.0)
[2019-01-09 22:48] LABS: Albumin 3.6 g/dL (3.5-5.0); Potassium 5.4 mmol/L (3.5-5.1); Total Bilirubin 0.7 mg/dL (0.2-1.3); Total Protein 7.2 g/dL (6.3-8.2)
--- NOTE | 2019-01-09 23:25 | XR ---
EXAM: XR Chest, 2 Views CLINICAL HISTORY: Fever. TECHNIQUE: Frontal and lateral views of the chest. COMPARISON: 12/23/2018. FINDINGS: Lungs: Patchy airspace disease at the right lung base as well as in the left mid lower lung zones possibly on the basis of pulmonary edema. Mild prominence of central pulmonary vasculature. Pleural space: Moderate left pleural effusion. No pneumothorax. Heart: There is cardiomegaly. Mediastinum: Unremarkable. Bones/joints: Sternotomy wires are noted in place and are intact. Osteopenia. Other findings: There is hypoaeration. IMPRESSION: Cardiomegaly. Left pleural effusion. Probable areas of pulmonary edema. Findings are suggestive of congestive heart failure. Patchy airspace disease at the right lung base could also represent pneumonia however and clinical correlation is necessary.
[2019-01-09] MEDS ORDERED: SODIUM CHLORIDE 0.9% 1,000 ML IV STA (23:31)
[2019-01-09] MEDS ORDERED: PNEUMONIA PROTOCOL UTILIZED 1 EACH MISC PO PRN (23:43)
[2019-01-09] MEDS ORDERED: PIPERACILLIN-TAZOBACTAM 3.375 GM in SODIUM CHLORIDE 0.9% 100 ML IVPB STA (23:43)
[2019-01-09] MEDS ORDERED: LEVOFLOXACIN 750MG-D5W PMX 750 MG in DEXTROSE/WATER 1 150ML.BAG IVPB STA (23:43)
[2019-01-09] MEDS ORDERED: SODIUM CHLORIDE 0.9% 1,000 ML IV SCH (23:45)
[2019-01-10 00:46] LABS: Glucose,Whole Blood 143 mg/dL (75-99)
[2019-01-10 05:04] LABS: Amorphous Sediment,Urine Rare /hpf; Appearance,Urine Cloudy (Clear); Bilirubin,Urine Negative (Negative); Blood,Urine Moderate (Negative); Color,Urine Yellow; Glucose,Urine (UA) Negative (Negative); Hyaline Casts,Urine 2 /lpf (0-2); Ketones,Urine Negative (Negative); Leukocyte Esterase,Urine Negative (Negative); Mucus,Urine Rare /hpf; Nitrite,Urine Negative (Negative); Protein,Urine 1+ (Negative); RBC,Urine 5 /hpf (0-5); Specific Gravity,Urine 1.014 (1.001-1.035); Squamous Epithelial Cell,Urine 1 /hpf (0-4); Urobilinogen,Urine <2.0 mg/dL (<2.0)
[2019-01-10 07:15] LABS: Glucose,Whole Blood 194 mg/dL (75-99)
[2019-01-10] MEDS: INSULIN ASPART (NovoLOG) 100 UNIT/ML VIAL SQ SCH ×4 (08:03→21:00)
[2019-01-10] MEDS: IPRATROPIUM-ALBUTEROL 3 ML NEB INHALATION PRN ×2 (08:30→15:59)
[2019-01-10] MEDS ORDERED: PIPERACILLIN-TAZOBACTAM 3.375 GM in SODIUM CHLORIDE 0.9% 100 ML IVPB SCH (10:00)
[2019-01-10] MEDS ORDERED: NA PHOS,M-B/NA PHOS,DI-BA 133 ML ENEMA RECTAL PRN (10:14)
[2019-01-10] MEDS ORDERED: MAGNESIUM HYDROXIDE 2,400 MG/10 ML CUP PO PRN (10:14)
[2019-01-10] MEDS: METOPROLOL TARTRATE 50 MG TAB PO SCH ×2 (10:58→19:51)
[2019-01-10] MEDS: AMIODARONE 200 MG TAB PO SCH (10:58)
[2019-01-10] MEDS: CLOPIDOGREL 75 MG TAB PO SCH (10:58)
[2019-01-10 10:59] LABS: Calcium 8.7 mg/dL (8.4-10.2); Potassium 5.1 mmol/L (3.5-5.1)
[2019-01-10 11:01] LABS: Anisocytosis Slight; Basophils % (A) 1 %; Eosinophils # (A) 0.2 k/uL (0-0.7); Eosinophils % (A) 2 %; HCT 22.6 % (39.0-53.0); Hypochromasia Marked; Lymphocytes # (A) 0.4 k/uL (1.0-4.8); Lymphocytes % (A) 5 %; MCH 31.4 pg (25.0-35.0); MCHC 30.7 g/dL (31.0-37.0); MCV 102.3 fL (80.0-100.0); Macrocytosis Moderate; Mean Platelet Volume 6.3; Monocytes # (A) 0.4 k/uL (0-1.0); Monocytes % (A) 5 %; Neutrophils # (A) 7.2 k/uL (1.3-7.7); Neutrophils % (A) 86 %; Platelet Count 192 k/uL (150-450); RBC 2.21 m/uL (4.30-5.90); RDW 18.2 % (11.5-15.5); WBC 8.4 k/uL (3.8-10.6)
[2019-01-10 11:47] LABS: Glucose,Whole Blood 243 mg/dL (75-99)
--- NOTE | 2019-01-10 14:17 | XR ---
EXAMINATION TYPE: XR chest 2V DATE OF EXAM: 01/10/2019 COMPARISON: 01/09/2019 INDICATION: Pneumonia, fever TECHNIQUE: Frontal and lateral views of the chest are obtained. FINDINGS: The heart size is enlarged. The pulmonary vasculature is normal. There is a right lower lobe consolidation. Mild improving infiltrate at the left base may be present . IMPRESSION: 1. Cardiomegaly. 2. Right lower lobe consolidation. Correlate for pneumonia.
--- NOTE | 2019-01-10 14:33 | P.HPIM ---
History of Present Illness H&P Date: 01/10/19 Chief Complaint: Altered mentation Patient is a 73-year-old male with a known history of severe concentric mitral valve regurgitation with severely calcified mitral annulus, status post mitral valve repair on October 31 with postoperative transaminitis and paroxysmal atrial fibrillation, he has known history of coronary artery disease with prior stenting of the LAD in September, chronic diastolic congestive heart failure, hypertension, hyperlipidemia, diabetes, peripheral neuropathy, chronic kidney disease, COPD, sleep apnea, pulmonary hypertension, prior nicotine dependence and recent history of bilateral lower extremities cellulitis status post antibiotic course at rehab, who is currently staying at home came to ER with complaints of generalized weakness fatigue and sleepiness. Patient says that last night she could not stay awake and feels drowsy than normal. Patient did not eat dinner tonight because he was too tired. Patient states he does feel short of breath. Patient was in the hospital with sepsis diagnosis last month with similar complaints. No confusion or isolated area of weakness. Patient was found to T-max 100.9 on admission. Pelvis 11.4, hemoglobin 7.9, RDW 19.0 and platelets 218,000 Sodium 138potassium 5.4 BUN 91, creatinine 2.86 Influenza negative EKG showed normal sinus rhythm with first-degree AV block Chest x-ray showed left pleural effusion. Probable area of pulmonary edema. Findings are suggestive of congestive heart failure. Patchy is paced disease of the right lung base could also represent pneumonia however clinical correlation is necessary. Repeat chest x-ray today showed right lower lobe consolidation. Correlate for pneumonia. Patient was started on broad-spectrum antibiotics in the form of Levaquin and Zosyn in the ER. BNP 16,800 Patient is more awake and oriented today. Review of Systems Constitutional: Patient denies any fever or chills . Generalized weakness and fatigue and sleepiness. Abdomen: Patient denied nausea vomiting and diarrhea and abdominal pain. Cardiovascular: Patient denies any chest pain or short of breath no pa lpitations. Respiratory: patient denied any cough is from production. shortness of breath Neurologic: Patient denied any numbness or tingling headache. Musculoskeletal: Patient denies any complaints of joint swelling or deformity. Skin: Negative Psychiatric: Negative Endocrine: No heat or cold intolerance. No recent weight gain. Genitourinary: No dysuria or hematuria. All other 14 point ROS negative except the above Past Medical History Past Medical History: Atrial Fibrillation, Coronary Artery Disease (CAD), Heart Failure, COPD, Diabetes Mellitus, Eye Disorder, Hyperlipidemia, Hypertension, Osteoarthritis (OA), Renal Disease, Sleep Apnea/CPAP/BIPAP Additional Past Medical History / Comment(s): SOB w/exertion,CATARACTS, sleep apnea without home CPAP use History of Any Multi-Drug Resistant Organisms: None Reported Past Surgical History: Adenoidectomy, Heart Catheterization, Heart Catheterization With Stent, Tonsillectomy Additional Past Surgical History / Comment(s): FAUSTINO,COLONOSCOPY, heart cath 09/11/18, heart catheterization 09/24/2018 with drug-eluting stent placed to the LAD mitral valve repair on 10/31/2018. Past Anesthesia/Blood Transfusion Reactions: No Reported Reaction Additional Past Anesthesia/Blood Transfusion Reaction / Comment(s): no hx blood transfusion Date of Last Stent Placement:: September 2018 Past Psychological History: No Psychological Hx Reported Additional Psychological History / Comment(s): Pt resides with his spouse. He uses no assistive device. He has not been driving d/t recent surgery, spouse can drive. Pt is receiving home care thru [facility]-nurse and PT. Smoking Status: Former smoker Past Alcohol Use History: Rare Additional Past Alcohol Use History / Comment(s): Pt started smoking in 1958 and quit in 2007. He smoked pipe. Past Drug Use History: None Reported - Past Family History Father Family Medical History: Cancer, Diabetes Mellitus Additional Family Medical History / Comment(s): BLADDER CANCER Mother Family Medical History: Congestive Heart Failure (CHF) Additional Family Medical History / Comment(s): AT AGE 68 Medications and Allergies Home Medications Medication Instructions Recorded Confirmed Type Cholecalciferol [Vitamin D3 (25 2,000 unit PO DAILY@1700 01/04/16 01/09/19 History Mcg = 1000 Iu)] Ferrous Sulfate [Iron (65 MG 325 mg PO DAILY 01/04/16 01/09/19 History Elemental)] L.acidoph,Paracasei, B.lactis 1 cap PO DAILY@1700 01/04/16 01/09/19 History [Probiotic] Multivitamins, Thera [Multivitamin 1 tab PO DAILY@1700 01/09/17 01/09/19 History (formulary)] Zinc 50 mg PO DAILY@1700 07/17/18 01/09/19 History Albuterol Inhaler [Ventolin Hfa 1 - 2 puff INHALATION RT-Q6H PRN 11/11/18 01/09/19 Rx Inhaler] #1 inhaler Amiodarone [Cordarone] 200 mg PO DAILY #15 tab 11/11/18 01/09/19 Rx Insulin Detemir [Levemir Flextouch] 10 units SQ HS 30 Days #3 pen 11/11/18 01/09/19 Rx Aspirin 81 mg PO DAILY@1700 11/29/18 01/09/19 History Magnesium Hydroxide [Milk of 2,400 mg PO DAILY PRN 11/29/18 01/09/19 History Magnesia] Metoprolol Tartrate [Lopressor] 50 mg PO BID@899,209911/29/18 01/09/19 History Na Phos,M-B/Na Phos,Di-Ba [Fleet 133 ml RECTAL DAILY PRN 11/29/18 01/09/19 History Adult] Acetaminophen-Codeine 300-30mg 1 - 2 tab PO Q6H PRN #6 tab 12/13/18 01/09/19 Rx [Tylenol w/codeine #3] Atorvastatin [Lipitor] 40 mg PO HS tab 12/13/18 01/09/19 Rx Escitalopram [Lexapro] 10 mg PO HS tab 12/13/18 01/09/19 Rx Pantoprazole [Protonix] 40 mg PO AC-BRKFST tablet. 12/13/18 01/09/19 Rx Acetaminophen Tab [Tylenol Tab] 650 mg PO Q4H PRN 12/23/18 01/09/19 History Clopidogrel [Plavix] 75 mg PO DAILY@89912/23/18 01/09/19 History Darbepoetin Ruddy [Aranesp] 40 mcg SQ TU 12/23/18 01/09/19 History Furosemide [Lasix] 40 mg PO BID@899,209912/23/18 01/09/19 History Gabapentin [Neurontin] 100 mg PO BID@00,209912/23/18 01/09/19 History INSULIN ASPART (NovoLOG) [NovoLOG See Protocol SQ ACHS 12/23/18 01/09/19 History (formulary)] Potassium Chloride [Klor-Con 20] 20 meq PO DAILY 12/23/18 01/09/19 History Sennosides-Docusate Sodium 2 tab PO BID 12/23/18 01/09/19 History [Senokot-S] Tamsulosin [Flomax] 0.4 mg PO HS 12/23/18 01/09/19 History traMADol HCL 50 mg PO Q6H PRN 12/23/18 01/09/19 History Cetirizine HCl [Zyrtec] 10 mg PO DAILY 01/09/19 01/09/19 History SILVER sulfADIAZINE Cream 1 applic TOPICAL HS 01/09/19 01/09/19 History [Silvadene 1% Cream] Allergies Allergy/AdvReac Type Severity Reaction Status Date / Time No Known Allergies Allergy Verified 01/09/19 21:16 Physical Exam Vitals: Vital Signs Temp Pulse Pulse Resp BP BP Pulse Ox 01/10/19 08:39 72 01/10/19 08:32 76 01/10/19 04:50 97.9 F 63 20 146/70 100 01/10/19 01:55 97.9 F 64 18 120/67 98 01/10/19 00:45 98.9 F 66 20 145/85 98 01/10/19 00:30 65 12 143/75 99 01/10/19 00:00 66 12 127/72 99 01/09/19 23:35 98.9 F 67 20 128/70 99 01/09/19 23:30 67 12 128/70 99 01/09/19 23:00 69 22 121/67 01/09/19 22:30 70 8 L 98 01/09/19 22:07 70 01/09/19 22:00 68 18 146/75 01/09/19 21:58 70 01/09/19 21:30 71 24 138/66 92 L 01/09/19 21:11 71 20 138/66 92 L 01/09/19 20:55 100.9 F H 71 24 138/66 93 L Intake and Output 01/09/19 01/10/19 01/10/19 22:59 06:59 14:59 Intake Total 500 Balance 500 Intake: Amount of Fluid Infused ( 500 ml) Other: Voiding Method Urinal # Voids 1 Weight 99.79 kg PHYSICAL EXAMINATION: Patient is lying in the bed comfortably, no acute distress, awake alert and oriented.. HEENT: Normocephalic. Neck is supple. Pupils reactive. Nostrils clear. Oral cavity is moist. Ears reveal no drainage. Neck reveals no JVD, carotid bruits, or thyromegaly. CHEST EXAMINATION: Trachea is central. Symmetrical expansion. Bibasilar diminished air entry. Lung horan clear to auscultation and percussion. CARDIAC: Normal S1, S2 with no gallops. No murmurs ABDOMEN: Soft. Bowel sounds normal. No organomegaly. No abdominal bruits. Extremities: 1+ edema. No clubbing or cyanosis Neurologically awake, alert, oriented x3 with well-coordinated movements. No focal deficits noted Skin: No rash or skin lesions. Psychiatric: Coperative. Nonsuicidal Musculoskeletal: No joint swelling or deformity. Normal range of motion. Results CBC & Chem 7: 01/10/19 10:09 01/10/19 10:09 Labs: Abnormal Lab Results - Last 24 Hours (Table) 01/09/19 01/09/19 01/09/19 Range/Units 21:51 21:51 21:51 WBC 11.4 H (3.8-10.6) k/uL RBC 2.67 L (4.30-5.90) m/uL Hgb 7.9 L (13.0-17.5) gm/dL Hct 27.2 L (39.0-53.0) % MCV 102.0 H (80.0-100.0) fL MCHC 28.9 L (31.0-37.0) g/dL RDW 19.0 H (11.5-15.5) % Neutrophils # 10.4 H (1.3-7.7) k/uL Lymphocytes # 0.3 L (1.0-4.8) k/uL PT 12.2 H (9.0-12.0) sec INR 1.2 H (<1.2) Potassium 5.4 H (3.5-5.1) mmol/L Carbon Dioxide 31 H (22-30) mmol/L BUN 91 H (9-20) mg/dL Creatinine 2.86 H (0.66-1.25) mg/dL Glucose 122 H (74-99) mg/dL POC Glucose (mg/dL) (75-99) mg/dL Alkaline Phosphatase 132 H (38-126) U/L Urine Protein (Negative) Urine Blood (Negative) Amorphous Sediment (None) /hpf Urine Mucus (None) /hpf 01/10/19 01/10/19 01/10/19 Range/Units 00:43 03:24 07:12 WBC (3.8-10.6) k/uL RBC (4.30-5.90) m/uL Hgb (13.0-17.5) gm/dL Hct (39.0-53.0) % MCV (80.0-100.0) fL MCHC (31.0-37.0) g/dL RDW (11.5-15.5) % Neutrophils # (1.3-7.7) k/uL Lymphocytes # (1.0-4.8) k/uL PT (9.0-12.0) sec INR (<1.2) Potassium (3.5-5.1) mmol/L Carbon Dioxide (22-30) mmol/L BUN (9-20) mg/dL Creatinine (0.66-1.25) mg/dL Glucose (74-99) mg/dL POC Glucose (mg/dL) 143 H 194 H (75-99) mg/dL Alkaline Phosphatase (38-126) U/L Urine Protein 1+ H (Negative) Urine Blood Moderate H (Negative) Amorphous Sediment Rare H (None) /hpf Urine Mucus Rare H (None) /hpf Thrombosis Risk Factor Assmnt - DVT/VTE Prophylaxis DVT/VTE Prophylaxis: Pharmacologic Prophylaxis ordered - Choose All That Apply Each Factor Represents 1 point: Abnormal pulmonary function (COPD) Each Risk Factor Represents 2 Points: Age 61-74 years Thrombosis Risk Factor Assessment Total Risk Factor Score: 3 Thrombosis Risk Factor Assessment Level: Moderate Risk Assessment and Plan Assessment: Generalized weakness, lethargy and altered mental status likely due to metabolic encephalopathy. Improving now Acute on chronic kidney disease stage III. Baseline creatinine around 1.1. Creatinine 2.86 on admission Acute on chronic CHF with diastolic dysfunction. gentle diuresis. Mild hyperkalemia due to acute kidney injury and also potassium supplementation at home Recent history of bilateral lower extremities cellulitis Status post antibiotic course at rehab Chronic Anemia/anemia of chronic disease Possible right lower lobe pneumonia. Low suspicion. Patient does have T-max 100.9 and no leukocytosis. Currently patient is afebrile. Severe mitral regurgitation with severely calcified mitral annulus. 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 Patient was continued on gentle hydration. Repeat CBC and BMP was ordered. Continue the home medications and avoid hypotension. Avoid nephrotoxic medic ations. Nephrology service will be consulted. ID is on board. Follow-up renal function and potassium level. PTOT will be consulted. Prognosis is guarded with multiple medical problems and comorbid conditions. Time with Patient: Greater than 30
--- NOTE | 2019-01-10 15:24 | P.CNPUL ---
History of Present Illness Consult date: 01/10/19 Requesting physician: Meron Palma Reason for consult: cough, other Chief complaint: Fatigue, lethargy, shortness of breath History of present illness: This is a 73-year-old white male patient of Dr. Patel, with recent history of mitral valve repair for history of severe mitral valve regurgitation with severely calcified mitral valve annulus, status post complex mitral valve repair on 10/31/2018. Other medical history includes coronary artery disease with recent drug-eluting stent placement in the LAD in September 2018, chronic diastolic heart failure, hypertension, hyperlipidemia, type 2 diabetes mellitus with peripheral neuropathy, chronic kidney disease, moderately severe COPD, obstru ctive sleep apnea without home CPAP use, hypertension, obesity, previous tobacco dependence and paroxysmal atrial fibrillation. Following his surgery patient went to subacute rehab at [facility] for further rehabilitation related to significant weakness, and prolonged recovery postoperative mitral valve repair. Patient also had recent hospitalization in November for bilateral lower extremity cellulitis. Patient was treated with Zosyn and vancomycin, the swelling and the blistering have improved. On 01/09/2019 patient presents to the emergency department per EMS for evaluation of increasing lethargy and fatigue, patient states that she feels more drowsy than normal, he is sleeping more, he is not eating because he is too tired, mildly short of breath, no altered mentation, no fever or chills, no cough or congestion, no hemoptysis. Chest x-ray showed cardiomegaly and left pleural effusion, pulmonary edema. EKG showed sinus rhythm with first-degree AV block, anterior infarct of undetermined age. Labs showed a white blood cell count of 11.4, hemoglobin of 7.9, INR is 1.2, sodium is 138, potassium is 5.4, chloride was 98, CO2 was 31, BUN is 91, creatinine is 2.86, lactic acid is 1.2, proBNP was significantly elevated at 16,800, urinalysis showed 1+ protein, moderate blood, but no evidence of infection. Fluids a screen was negative. Did have low-grade fever of 100.9F on presentation, he has been afebrile since. He had 92% O2 saturation on 2 L of oxygen, hemodynamically stable. He was started on combination of Levaquin and Zosyn for possibility of pneumonia howeve r clinical presentation is more consistent with acute congestive heart failure, patient's echocardiogram from 11/30/2018 showed EF of 50-55%, severe mitral annular calcification, moderate mitral regurgitation, mild to moderate tricuspid regurgitation, moderate to severe pulmonary hypertension with PA systolic of 52 mmHg. Review of Systems All systems: negative Constitutional: Reports fatigue, Reports lethargy, Reports weakness, Denies chills, Denies fever Eyes: denies blurred vision, denies pain Ears, nose, mouth and throat: Denies headache, Denies sore throat Cardiovascular: Reports dyspnea on exertion, Reports edema, Denies chest pain, Denies shortness of breath Respiratory: Reports dyspnea, Denies cough Gastrointestinal: Denies abdominal pain, Denies diarrhea, Denies nausea, Denies vomiting Musculoskeletal: Denies myalgias Integumentary: Denies pruritus, Denies rash Neurological: Denies numbness, Denies weakness Psychiatric: Denies anxiety, Denies depression Endocrine: Denies fatigue, Denies weight change Past Medical History Past Medical History: Atrial Fibrillation, Coronary Artery Disease (CAD), Heart Failure, COPD, Diabetes Mellitus, Eye Disorder, Hyperlipidemia, Hypertension, Osteoarthritis (OA), Renal Disease, Sleep Apnea/CPAP/BIPAP Additional Past Medical History / Comment(s): SOB w/exertion,CATARACTS, sleep apnea without home CPAP use History of Any Multi-Drug Resistant Organisms: None Reported Past Surgical History: Adenoidectomy, Heart Catheterization, Heart Catheterization With Stent, Tonsillectomy Additional Past Surgical History / Comment(s): FAUSTINO,COLONOSCOPY, heart cath 09/11/18, heart catheterization 09/24/2018 with drug-eluting stent placed to the LAD mitral valve repair on 10/31/2018. Past Anesthesia/Blood Transfusion Reactions: No Reported Reaction Additional Past Anesthesia/Blood Transfusion Reaction / Comment(s): no hx blood transfusion Date of Last Stent Placement:: September 2018 Past Psychological History: No Psychological Hx Reported Additional Psychological History / Comment(s): Pt resides with his spouse. He uses no assistive device. He has not been driving d/t recent surgery, spouse can drive. Pt is receiving home care thru [facility]-nurse and PT. Smoking Status: Former smoker Past Alcohol Use History: Rare Additional Past Alcohol Use History / Comment(s): Pt started smoking in 1958 and quit in 2007. He smoked pipe. Past Drug Use History: None Reported - Past Family History Father Family Medical History: Cancer, Diabetes Mellitus Additional Family Medical History / Comment(s): BLADDER CANCER Mother Family Medical History: Congestive Heart Failure (CHF) Additional Family Medical History / Comment(s): AT AGE 68 Medications and Allergies Home Medications Medication Instructions Recorded Confirmed Type Cholecalciferol [Vitamin D3 (25 2,000 unit PO DAILY@1700 01/04/16 01/09/19 History Mcg = 1000 Iu)] Ferrous Sulfate [Iron (65 MG 325 mg PO DAILY 01/04/16 01/09/19 History Elemental)] L.acidoph,Paracasei, B.lactis 1 cap PO DAILY@1700 01/04/16 01/09/19 History [Probiotic] Multivitamins, Thera [Multivitamin 1 tab PO DAILY@1700 01/09/17 01/09/19 History (formulary)] Zinc 50 mg PO DAILY@1700 07/17/18 01/09/19 History Albuterol Inhaler [Ventolin Hfa 1 - 2 puff INHALATION RT-Q6H PRN 11/11/18 01/09/19 Rx Inhaler] #1 inhaler Amiodarone [Cordarone] 200 mg PO DAILY #15 tab 11/11/18 01/09/19 Rx Insulin Detemir [Levemir Flextouch] 10 units SQ HS 30 Days #3 pen 11/11/18 01/09/19 Rx Aspirin 81 mg PO DAILY@1700 11/29/18 01/09/19 History Magnesium Hydroxide [Milk of 2,400 mg PO DAILY PRN 11/29/18 01/09/19 History Magnesia] Metoprolol Tartrate [Lopressor] 50 mg PO BID@0900,2100 11/29/18 01/09/19 History Na Phos,M-B/Na Phos,Di-Ba [Fleet 133 ml RECTAL DAILY PRN 11/29/18 01/09/19 History Adult] Acetaminophen-Codeine 300-30mg 1 - 2 tab PO Q6H PRN #6 tab 12/13/18 01/09/19 Rx [Tylenol w/codeine #3] Atorvastatin [Lipitor] 40 mg PO HS tab 12/13/18 01/09/19 Rx Escitalopram [Lexapro] 10 mg PO HS tab 12/13/18 01/09/19 Rx Pantoprazole [Protonix] 40 mg PO AC-BRKFST tablet. 12/13/18 01/09/19 Rx Acetaminophen Tab [Tylenol Tab] 650 mg PO Q4H PRN 12/23/18 01/09/19 History Clopidogrel [Plavix] 75 mg PO DAILY@0900 12/23/18 01/09/19 History Darbepoetin Ruddy [Aranesp] 40 mcg SQ TU 12/23/18 01/09/19 History Furosemide [Lasix] 40 mg PO BID@09,209912/23/18 01/09/19 History Gabapentin [Neurontin] 100 mg PO BID@0900,209912/23/18 01/09/19 History INSULIN ASPART (NovoLOG) [NovoLOG See Protocol SQ ACHS 12/23/18 01/09/19 History (formulary)] Potassium Chloride [Klor-Con 20] 20 meq PO DAILY 12/23/18 01/09/19 History Sennosides-Docusate Sodium 2 tab PO BID 12/23/18 01/09/19 History [Senokot-S] Tamsulosin [Flomax] 0.4 mg PO HS 12/23/18 01/09/19 History traMADol HCL 50 mg PO Q6H PRN 12/23/18 01/09/19 History Cetirizine HCl [Zyrtec] 10 mg PO DAILY 01/09/19 01/09/19 History SILVER sulfADIAZINE Cream 1 applic TOPICAL HS 01/09/19 01/09/19 History [Silvadene 1% Cream] Allergies Allergy/AdvReac Type Severity Reaction Status Date / Time No Known Allergies Allergy Verified 01/09/19 21:16 Physical Exam Vitals: Vital Signs Temp Pulse Pulse Resp BP BP Pulse Ox 01/10/19 13:04 98 F 66 16 142/65 96 01/10/19 08:39 72 01/10/19 08:32 76 01/10/19 04:50 97.9 F 63 20 146/70 100 01/10/19 01:55 97.9 F 64 18 120/67 98 01/10/19 00:45 98.9 F 66 20 145/85 98 01/10/19 00:30 65 12 143/75 99 01/10/19 00:00 66 12 127/72 99 01/09/19 23:35 98.9 F 67 20 128/70 99 01/09/19 23:30 67 12 128/70 99 01/09/19 23:00 69 22 121/67 01/09/19 22:30 70 8 L 98 01/09/19 22:07 70 01/09/19 22:00 68 18 146/75 01/09/19 21:58 70 01/09/19 21:30 71 24 138/66 92 L 01/09/19 21:11 71 20 138/66 92 L 01/09/19 20:55 100.9 F H 71 24 138/66 93 L Intake and Output 01/10/19 01/10/19 01/10/19 06:59 14:59 22:59 Intake Total 500 Balance 500 Intake: Amount of Fluid Infused ( 500 ml) Other: Voiding Method Urinal # Voids 1 GENERAL EXAM: Alert, pleasant, 73-year-old white male, on 2 L of oxygen with a pulse ox of 96%, comfortable in no apparent distress. HEAD: Normocephalic/atraumatic. EYES: Normal reaction of pupils, equal size. Conjunctiva pink, sclera white. NOSE: Clear with pink turbinates. THROAT: No erythema or exudates. NECK: No masses, no JVD, no thyroid enlargement, no adenopathy. CHEST: No chest wall deformity. Symmetrical expansion. LUNGS: Equal air entry with no crackles, wheeze, rhonchi or dullness. CVS: Regular rate and rhythm, normal S1 and S2, no gallops, no murmurs, no rubs ABDOMEN: Soft, nontender. No hepatosplenomegaly, normal bowel sounds, no guarding or rigidity. EXTREMITIES: No clubbing, bilateral lower extremity edema, and small healing blisters on his anterior shins, and his bilateral feet with no significant surro unding erythema or warmth, no cyanosis, 2+ pulses and upper and lower extremities. Both lower extremities are Zi wrapped MUSCULOSKELETAL: Muscle strength and tone normal. SPINE: No scoliosis or deformity SKIN: No rashes CENTRAL NERVOUS SYSTEM: Alert and oriented -3. No focal deficits, tone is no rmal in all 4 extremities. PSYCHIATRIC: Alert and oriented -3. Appropriate affect. Intact judgment and insight. Results - Laboratory Findings CBC and BMP: 01/10/19 10:09 01/10/19 10:09 PT/INR, D-dimer PT 12.2 sec (9.0-12.0) H 01/09/19 21:51 INR 1.2 (<1.2) H 01/09/19 21:51 Abnormal lab findings: Abnormal Labs 01/09/19 01/09/19 01/09/19 21:51 21:51 21:51 WBC 11.4 H RBC 2.67 L Hgb 7.9 L Hct 27.2 L MCV 102.0 H MCHC 28.9 L RDW 19.0 H Neutrophils # 10.4 H Lymphocytes # 0.3 L PT 12.2 H INR 1.2 H Potassium 5.4 H Carbon Dioxide 31 H BUN 91 H Creatinine 2.86 H Glucose 122 H POC Glucose (mg/dL) Alkaline Phosphatase 132 H Urine Protein Urine Blood Amorphous Sediment Urine Mucus 01/10/19 01/10/19 01/10/19 00:43 03:24 07:12 WBC RBC Hgb Hct MCV MCHC RDW Neutrophils # Lymphocytes # PT INR Potassium Carbon Dioxide BUN Creatinine Glucose POC Glucose (mg/dL) 143 H 194 H Alkaline Phosphatase Urine Protein 1+ H Urine Blood Moderate H Amorphous Sediment Rare H Urine Mucus Rare H 01/10/19 01/10/19 01/10/19 10:09 10:09 11:45 WBC RBC 2.21 L Hgb 7.0 L Hct 22.6 L MCV 102.3 H MCHC 30.7 L RDW 18.2 H Neutrophils # Lymphocytes # 0.4 L PT INR Potassium Carbon Dioxide BUN 85 H Creatinine 2.74 H Glucose 213 H POC Glucose (mg/dL) 243 H Alkaline Phosphatase Urine Protein Urine Blood Amorphous Sediment Urine Mucus - Diagnostic Findings Chest x-ray: report reviewed, image reviewed Additional studies: EKG reviewed Assessment and Plan Plan: Assessment: #1. Acute exacerbation of systolic congestive heart failure, doubt possibility of pneumonia, chest x-ray showed pulmonary edema, proBNP was elevated at 16,800, no leukocytosis, no fever or chills, #2. Recent complex mitral valve repair in October 2018 for history of severe eccentric mitral valve regurgitation with severely calcified mitral valve annulus #3. Valvular heart disease, last echocardiogram showed systolic moderate mitral valve regurgitation, [id number] TR, and pulmonary hypertension with PA systolic of 52 mmHg #4. Acute kidney injury #5. Bilateral lower extremity cellulitis, and patient was recently hospitalized treated with IV antibiotics, and his lower extremities are improving, less swollen, and there is no redness or warmth #6. Severe chronic congestive heart failure with diastolic dysfunction, and his echocardiogram showed EF of 50-55% #7. Moderate to severe COPD #8. Obstructive sleep apnea not on home CPAP #9. Coronary artery disease with recent placement of a drug-eluting stent to the LAD in September 2018 #10. Hypertension #11. Hyperlipidemia #12. Diabetes mellitus type 2 with peripheral neuropathy #13. Previous history of smoking Plan: We'll start the patient on IV diuretics, at 40 mg every 8 hours, we'll stop the antibiotics, will obtain a repeat echocardiogram, will consult cardiology to reevaluate the mitral valve regurgitation. Accurate intake and output, daily weights. Monitor daily labs, and daily renal profile, and electrolytes. We'll continue to follow I performed a history & physical examination of the patient and discussed their management with my nurse practitioner, Lashon Jaimes. I reviewed the nurse practitioner's note and agree with the documented findings and plan of care. Lung sounds are positive for diminished with a few scattered crackles. The findings and the impression was discussed with the patient. I attest to the documentation by the nurse practitioner. Time with Patient: Greater than 30
[2019-01-10] MEDS: ASPIRIN 81 MG PO SCH (16:42)
[2019-01-10] MEDS: LACTOBACILLUS ACIDOPH & BULGAR 1 EACH PACKET PO SCH (16:42)
[2019-01-10] MEDS: MULTIVITAMINS, THERA 1 EACH TAB PO SCH (16:42)
[2019-01-10] MEDS: FUROSEMIDE 10 MG/ML 4 ML VIAL IV SCH ×2 (16:42→23:45)
[2019-01-10] MEDS: HEPARIN SODIUM,PORCINE 5,000 UNIT/ML 1 ML VIAL SQ SCH ×2 (16:42→23:44)
[2019-01-10] MEDS: CHOLECALCIFEROL 1,000 UNIT TAB PO SCH (16:42)
[2019-01-10 17:24] LABS: Glucose,Whole Blood 229 mg/dL (75-99)
[2019-01-10] MEDS: ZINC SULFATE 220 MG CAP PO SCH (17:46)
[2019-01-10] MEDS: ESCITALOPRAM 10 MG TAB PO SCH (19:51)
[2019-01-10] MEDS: ATORVASTATIN 40 MG TAB PO SCH (19:51)
[2019-01-10] MEDS: ACETAMINOPHEN TAB 325 MG TAB PO PRN (19:51)
[2019-01-10] MEDS: TAMSULOSIN 0.4 MG CAP.ER.24H PO SCH (19:51)
[2019-01-10] MEDS: SENNOSIDES-DOCUSATE SODIUM 1 EACH TAB PO SCH (19:51)
[2019-01-10 20:48] LABS: Glucose,Whole Blood 225 mg/dL (75-99)
[2019-01-10] MEDS: GABAPENTIN 100 MG CAP PO SCH (21:00)
[2019-01-10] MEDS ORDERED: FUROSEMIDE 40 MG TAB PO SCH (21:00)
[2019-01-10] MEDS: INSULIN DETEMIR (LEVEMIR) 100 UNIT/ML SYR SQ SCH (21:00)
--- NOTE | 2019-01-10 23:25 | CONS ---
CONSULTATION REASON FOR CONSULT: Renal failure. HISTORY OF PRESENT ILLNESS: Patient is a 73-year-old male who is status post cardiac catheterization, coronary stent placement and mitral valve repair on 10/31/2018. Patient's cardiac catheterization was in August of this year. He had a prolonged hospitalization with acute kidney injury, which had improved. He had significant volume overload with severe lower extremity edema, which eventually did improve. On this admission patient was admitted with the altered mentation. He had just come home from inpatient rehab and was complaining of increased weakness, fatigue. He was very drowsy. He could not eat. He felt short of breath as well. Serum creatinine was 2.86 mg/dL yesterday. It is down to 2.7 today. Previous creatinine on 12/13/2018 was 0.95. Patient denies use of nonsteroidal anti- inflammatory agents. I do not see DAYA inhibitors or NSAIDs on his med list. Blood pressure was not significantly low. Patient has been voiding in a urinal. Chest x-ray shows pulmonary vascular congestion, cardiomegaly, left pleural effusion. There is a possibility of pneumonia as well in the right lower lobe. Patient is currently maintained on antibiotics. He states he is feeling better. PAST MEDICAL HISTORY: Past medical history is also significant for: 1. Atrial fibrillation. 2. Coronary artery disease. 3. COPD. 4. Obstructive sleep apnea. 5. Pulmonary hypertension. 6. Osteoarthritis. PAST SURGICAL HISTORY: 1. Cataract surgery. 2. Cardiac catheterization. 3. Coronary stent placement. 4. Mitral valve repair. SOCIAL HISTORY: Negative for smoking. Patient is a former smoker. No history of drug abuse or alcohol abuse. MEDICATIONS: Medications at home prior to admission included: 1. Vitamin D. 2. Iron. 3. Zinc. 4. Aspirin. 5. Magnesium. 6. Metoprolol. 7. Lipitor. 8. Lexapro. 9. Protonix. 10.Plavix. 11.Neurontin. 12.Lasix. 13.Aranesp. 14.Insulin. 15.Tramadol. 16.Zyrtec. 17.Senokot. ALLERGIES: NONE. PHYSICAL EXAMINATION: Patient is currently comfortable, awake, not in any acute distress. Blood pressure was 146/70, heart rate 63 per minute. He is afebrile. EXAMINATION OF THE HEART: S1 and S2. EXAMINATION OF LUNGS: Bilateral breath sounds are heard. ABDOMEN: Soft, non-tender. Examination of lower extremities shows bilateral extremities to be wrapped. [employer]ATOR exam is grossly intact. LABS: Hemoglobin 7.0, sodium 140, potassium 5.1, BUN 85, creatinine 2.7. UA shows 1+ protein, moderate blood. ASSESSMENT: 1. Acute kidney injury, most likely prerenal versus acute tubular necrosis. Also need to rule out urine retention. We will check a postvoidal residual. Patient is not on any nephrotoxic medications. Continue to encourage increased oral intake. He is currently not on any IV fluids and I will hold off on fluids for now, as patient has adequate oral intake. Repeat labs in a.m. 2. Anemia. Rule out GI bleed. Check stool for occult blood. 3. Right lower lobe pneumonia, maintained on antibiotics. 4. Volume overload. Continue with the IV Lasix for now. PLAN: Check postvoidal residual. Continue IV Lasix. Check stool for occult blood. Continue Aranesp and repeat labs in a.m. Thank you for this consultation. Will continue to follow the patient with you during his hospitalization. MMODL / IJN: [id number] /
[2019-01-11] MEDS: INSULIN ASPART (NovoLOG) 100 UNIT/ML VIAL SQ SCH ×4 (08:30→21:17)
[2019-01-11] MEDS: AMIODARONE 200 MG TAB PO SCH (08:52)
[2019-01-11] MEDS: METOPROLOL TARTRATE 50 MG TAB PO SCH ×2 (08:52→21:37)
[2019-01-11] MEDS: CLOPIDOGREL 75 MG TAB PO SCH (08:52)
[2019-01-11] MEDS: FUROSEMIDE 10 MG/ML 4 ML VIAL IV SCH ×2 (08:52→17:04)
[2019-01-11] MEDS: PANTOPRAZOLE 40 MG TABLET PO SCH (08:52)
[2019-01-11] MEDS: SENNOSIDES-DOCUSATE SODIUM 1 EACH TAB PO SCH ×2 (08:52→21:37)
[2019-01-11] MEDS: GABAPENTIN 100 MG CAP PO SCH ×2 (08:52→21:37)
[2019-01-11] MEDS: HEPARIN SODIUM,PORCINE 5,000 UNIT/ML 1 ML VIAL SQ SCH ×2 (08:53→17:04)
[2019-01-11] MEDS: ACETAMINOPHEN TAB 325 MG TAB PO PRN (09:07)
[2019-01-11 09:14] LABS: Glucose,Whole Blood 143 mg/dL (75-99)
--- NOTE | 2019-01-11 11:26 | P.CRDCN ---
History of Present Illness History of present illness: This is a pleasant 73-year-old male past medical history significant for coronary artery disease status post stent placement to the LAD September 2018 maintained on dual anti-platelet threapy, chronic diastolic heart failure, mitral valve disease status post mitral valve repair 10/31/2018, COPD, obstructive sleep apnea, diabetes mellitus, chronic kidney disease, recent cellulitis causing sepsis 11/2018 and former nicotine dependence. He follows in the office with Dr. Deng. We've been asked to see him in consultation secondary to persistent shortness of breath, pulmonary edema and evaluation of the mitral valve. He is seen and examined sitting up in no acute distress. He complains of persistent shortness of breath and overall fatigue. He denies chest pain, dizziness or palpitations. He states his symptoms have actually worsened since his mitral valve repair. He is quite frustrated with multiple hospitalizations. On review of his labs his hemoglobin has been significantly decreased since October. Prior to October his hgb was 13.7. Today is 7 and has been consistently low despite rather stable renal failure since 2016. Nephrology is also following. Most recent echocardiogram 11/30/2018 revealed preserved LV systolic function with EF 50-55%, severe mitral annular calcification, moderate MR, mild-moderate mitral stenosis with valve area of 2.1 cm , moderate TR and m oderate pulmonary hypertension with RVSP 52 mmHg. EKG reveals sinus mechanism, first-degree AV block, incomplete right bundle branch block, poor R-wave progression heart rate of 69. 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 Repeat chest x-ray yesterday reveals a right lower lobe consolidation, correlate for pneumonia. Laboratory data reviewed, and T proBNP 16,800, hemoglobin 7, platelets 192, on admission white count was 11,000 down to 8000 today, sodium 140, potassium 5.1, creatinine 2.74. Current daily cardiac medications include Plavix 75 mg daily, Lopressor 50 mg twice a day, Lasix 40 mg twice a day, atorvastatin 40 mg daily, aspirin 81 mg daily and amiodarone 200 mg daily. At the time of my exam: CONSTITUTIONAL: Denies fever. Denies chills. EYES: Denies blurred vision. Denies vision changes. Denies eye pain. EARS, NOSE, MOUTH & THROAT: Denies headache. Denies sore throat. Denies ear pain. CARDIOVASCULAR: Denies chest pain. Complains of shortness of breath. Denies orthopnea. Denies PND. Denies palpitations. RESPIRATORY: Denies cough. GASTROINTESTINAL: Denies abdominal pain. Denies diarrhea. Denies constipation. Denies nausea. Denies vomiting. MUSCULOSKELETAL: Denies myalgias. INTEGUMENTARY: Denies pruitis. Denies rash. NEUROLOGIC: Denies numbness. Denies tingling. Denies weakness. PSYCHIATRIC: Denies anxiety. Denies depression. ENDOCRINE: Complains of fatigue. Denies weight change. Denies polydipsia. Denies polyurina. GENITOURINARY: Denies burning, hematuria or urgency with micturation. HEMATOLOGIC: Denies history of anemia. Denies bleeding. Blood pressure 143/74 heart rate 62 afebrile maintaining oxygen saturation on nasal cannula GENERAL: This is a 73-year-old male in no apparent distress at the time of my examination. HEENT: Head is atraumatic, normocephalic. Pupils are equal, round. Sclerae anicteric. Conjunctivae are clear. Mucous membranes of the mouth are moist. Neck is supple. There is no jugular venous distention. No carotid bruit is heard. LUNGS: Clear to auscultation no wheezes, rales or rhonchi. No chest wall tenderness is noted on palpation or with deep breathing. Diminished bilaterally. HEART: Regular rate and rhythm with murmur at the left sternal border, no rubs or gallops. S1 and S2 heard. ABDOMEN: Soft, nontender. Bowel sounds are heard. No organomegaly noted. EXTREMITIES: Bilateral lizbeth wraps in place. No calf tenderness noted. VASCULAR: Radial and dorsalis pedis pulses palpated, no evidence of clubbing. NEUROLOGIC: Patient is awake, alert and oriented x3. ASSESSMENT Febrile illness, temperature of 100.9F on admission Leukocytosis Acute on chronic diastolic heart failure History of valvular heart disease status post mitral valve repair Anemia of unknown etiology History of coronary artery disease status post recent stent placement to the LAD maintained on dual antiplatelet therapy Pneumonia Acute kidney injury COPD Pulmonary hypertension Hypertension Dyslipidemia Diabetes mellitus Former nicotine dependence PLAN Agree with IV diuresis, management by nephrology. Follow renal function and electrolytes in the morning. Check pro-calcitonin. Repeat echocardiogram to assess mitral valve. Initiate on hydralazine 25 mg BID for increase cardiac output. Evaluation of etiology for anemia, rule out underlying bleeding. Thank you kindly for this consultation. Nurse Practitioner note has been reviewed, I agree with a documented findings and plan of care. Patient was seen and examined. Past Medical History Past Medical History: Atrial Fibrillation, Coronary Artery Disease (CAD), Heart Failure, COPD, Diabetes Mellitus, Eye Disorder, Hyperlipidemia, Hypertension, O steoarthritis (OA), Renal Disease, Sleep Apnea/CPAP/BIPAP Additional Past Medical History / Comment(s): SOB w/exertion,CATARACTS, sleep apnea without home CPAP use History of Any Multi-Drug Resistant Organisms: None Reported Past Surgical History: Adenoidectomy, Heart Catheterization, Heart Catheterization With Stent, Tonsillectomy Additional Past Surgical History / Comment(s): FAUSTINO,COLONOSCOPY, heart cath 09/11/18, heart catheterization 09/24/2018 with drug-eluting stent placed to the LAD mitral valve repair on 10/31/2018. Past Anesthesia/Blood Transfusion Reactions: No Reported Reaction Additional Past Anesthesia/Blood Transfusion Reaction / Comment(s): no hx blood transfusion Date of Last Stent Placement:: September 2018 Past Psychological History: No Psychological Hx Reported Additional Psychological History / Comment(s): Pt resides with his spouse. He uses no assistive device. He has not been driving d/t recent surgery, spouse can drive. Pt is receiving home care thru [facility]-nurse and PT. Smoking Status: Former smoker Past Alcohol Use History: Rare Additional Past Alcohol Use History / Comment(s): Pt started smoking in 1958 and quit in 2007. He smoked pipe. Past Drug Use History: None Reported - Past Family History Father Family Medical History: Cancer, Diabetes Mellitus Additional Family Medical History / Comment(s): BLADDER CANCER Mother Family Medical History: Congestive Heart Failure (CHF) Additional Family Medical History / Comment(s): AT AGE 68 Medications and Allergies Home Medications Medication Instructions Recorded Confirmed Type Cholecalciferol [Vitamin D3 (25 2,000 unit PO DAILY@1700 01/04/16 01/09/19 History Mcg = 1000 Iu)] Ferrous Sulfate [Iron (65 MG 325 mg PO DAILY 01/04/16 01/09/19 History Elemental)] L.acidoph,Paracasei, B.lactis 1 cap PO DAILY@1700 01/04/16 01/09/19 History [Probiotic] Multivitamins, Thera [Multivitamin 1 tab PO DAILY@1700 01/09/17 01/09/19 History (formulary)] Zinc 50 mg PO DAILY@1700 07/17/18 01/09/19 History Albuterol Inhaler [Ventolin Hfa 1 - 2 puff INHALATION RT-Q6H PRN 11/11/18 01/09/19 Rx Inhaler] #1 inhaler Amiodarone [Cordarone] 200 mg PO DAILY #15 tab 11/11/18 01/09/19 Rx Insulin Detemir [Levemir Flextouch] 10 units SQ HS 30 Days #3 pen 11/11/18 01/09/19 Rx Aspirin 81 mg PO DAILY@1700 11/29/18 01/09/19 History Magnesium Hydroxide [Milk of 2,400 mg PO DAILY PRN 11/29/18 01/09/19 History Magnesia] Metoprolol Tartrate [Lopressor] 50 mg PO BID@0900,209911/29/18 01/09/19 History Na Phos,M-B/Na Phos,Di-Ba [Fleet 133 ml RECTAL DAILY PRN 11/29/18 01/09/19 History Adult] Acetaminophen-Codeine 300-30mg 1 - 2 tab PO Q6H PRN #6 tab 12/13/18 01/09/19 Rx [Tylenol w/codeine #3] Atorvastatin [Lipitor] 40 mg PO HS tab 12/13/18 01/09/19 Rx Escitalopram [Lexapro] 10 mg PO HS tab 12/13/18 01/09/19 Rx Pantoprazole [Protonix] 40 mg PO AC-BRKFST tablet. 12/13/18 01/09/19 Rx Acetaminophen Tab [Tylenol Tab] 650 mg PO Q4H PRN 12/23/18 01/09/19 History Clopidogrel [Plavix] 75 mg PO DAILY@00 12/23/18 01/09/19 History Darbepoetin Ruddy [Aranesp] 40 mcg SQ TU 12/23/18 01/09/19 History Furosemide [Lasix] 40 mg PO BID@0900,209912/23/18 01/09/19 History Gabapentin [Neurontin] 100 mg PO BID@0900,209912/23/18 01/09/19 History INSULIN ASPART (NovoLOG) [NovoLOG See Protocol SQ ACHS 12/23/18 01/09/19 History (formulary)] Potassium Chloride [Klor-Con 20] 20 meq PO DAILY 12/23/18 01/09/19 History Sennosides-Docusate Sodium 2 tab PO BID 12/23/18 01/09/19 History [Senokot-S] Tamsulosin [Flomax] 0.4 mg PO HS 12/23/18 01/09/19 History traMADol HCL 50 mg PO Q6H PRN 12/23/18 01/09/19 History Cetirizine HCl [Zyrtec] 10 mg PO DAILY 01/09/19 01/09/19 History SILVER sulfADIAZINE Cream 1 applic TOPICAL HS 01/09/19 01/09/19 History [Silvadene 1% Cream] Allergies Allergy/AdvReac Type Severity Reaction Status Date / Time No Known Allergies Allergy Verified 01/09/19 21:16 Physical Exam Vitals: Vital Signs Temp Pulse Pulse Resp BP Pulse Ox 01/11/19 05:23 97.8 F 62 16 143/74 94 L 01/10/19 20:59 98.3 F 66 16 151/77 93 L 01/10/19 16:11 68 01/10/19 15:59 66 01/10/19 13:04 98 F 66 16 142/65 96 Intake and Output 01/10/19 01/11/19 01/11/19 22:59 06:59 14:59 Output Total 200 380 200 Balance -200 -380 -200 Output: Urine 200 380 200 Results 01/10/19 10:09 01/10/19 10:09 CBC 01/10/19 Range/Units 10:09 WBC 8.4 (3.8-10.6) k/uL RBC 2.21 L (4.30-5.90) m/uL Hgb 7.0 L (13.0-17.5) gm/dL Hct 22.6 L (39.0-53.0) % Plt Count 192 (150-450) k/uL Comprehensive Metabolic Panel 01/10/19 Range/Units 10:09 Sodium 140 (137-145) mmol/L Potassium 5.1 (3.5-5.1) mmol/L Chloride 100 (98-107) mmol/L Carbon Dioxide 29 (22-30) mmol/L BUN 85 H (9-20) mg/dL Creatinine 2.74 H (0.66-1.25) mg/dL Glucose 213 H (74-99) mg/dL Calcium 8.7 (8.4-10.2) mg/dL Current Medications Generic Name Dose Route Start Last Admin Trade Name Freq PRN Reason Stop Dose Admin Acetaminophen 650 mg 01/10/19 10:13 01/11/19 09:07 Tylenol Tab PO 650 mg Q6H PRN Administration Mild Pain Albuterol/Ipratropium 3 ml 01/09/19 23:43 01/10/19 15:59 Duoneb 0.5 Mg-3 Mg/3 Ml Soln INHALATION 3 ml RT-Q4H PRN Administration shortness of breath Amiodarone HCl 200 mg 01/10/19 10:45 01/11/19 08:52 Cordarone PO 200 mg DAILY JAIME Administration Aspirin 81 mg 01/10/19 17:00 01/10/19 16:42 Aspirin PO 81 mg DAILY@1700 [facility] Administration Atorvastatin Calcium 40 mg 01/10/19 21:00 01/10/19 19:51 Lipitor PO 40 mg HS [facility] Administration Cholecalciferol 2,000 unit 01/10/19 17:00 01/10/19 16:42 Vitamin D3 (25 Mcg = 1000 Iu) PO 2,000 unit DAILY@1700 JAIME Administration Clopidogrel Bisulfate 75 mg 01/10/19 10:45 01/11/19 08:52 Plavix PO 75 mg DAILY@0900 JAIME Administration Darbepoetin Ruddy 40 mcg 01/15/19 09:00 Aranesp SQ [facility] Escitalopram Oxalate 10 mg 01/10/19 21:00 01/10/19 19:51 Lexapro PO 10 mg HS JAIME Administration Furosemide 40 mg 01/10/19 16:00 01/11/19 08:52 Lasix IV 40 mg Q8HR JAIME Administration Gabapentin 100 mg 01/10/19 21:00 01/11/19 08:52 Neurontin PO 100 mg BID@0900,2100 [facility] Administration Heparin Sodium (Porcine) 5,000 unit 01/10/19 16:00 01/11/19 08:53 Heparin SQ 5,000 unit Q8HR JAIME Administration Hydralazine HCl 25 mg 01/11/19 10:00 Apresoline PO BID JAIME Insulin Aspart 0 unit 01/10/19 07:30 01/11/19 08:30 Novolog SQ Not Given ACHS [facility] Protocol Insulin Detemir 10 unit 01/10/19 21:00 01/10/19 21:00 Levemir SQ 10 unit HS JAIME Administration Lactobacillus Acidoph/Bulgaricus 1 each 01/10/19 17:00 01/10/19 16:42 Lactinex PO 1 each DAILY@1700 [facility] Administration Magnesium Hydroxide 2,400 mg 01/10/19 10:14 Milk Of Magnesia PO DAILY PRN Constipation Metoprolol Tartrate 50 mg 01/10/19 10:45 01/11/19 08:52 Lopressor PO 50 mg BID@0900,2100 [facility] Administration Miscellaneous Information 1 each 01/09/19 23:43 Pneumonia Protocol Utilized PO ONCE PRN Per Protocol Multivitamins 1 each 01/10/19 17:00 01/10/19 16:42 Theragran PO 1 each DAILY@1700 [facility] Administration Pantoprazole Sodium 40 mg 01/11/19 07:30 01/11/19 08:52 Protonix PO 40 mg AC-BRKFST JAIME Administration Senna/Docusate Sodium 2 each 01/10/19 21:00 01/11/19 08:52 Senokot-S PO 2 each BID JAIME Administration Silver Sulfadiazine 1 applic 01/10/19 21:00 01/10/19 21:00 Silvadene Cream TOPICAL 1 applic HS JAIME Administration Sodium Biphosphate/Sodium Phosphate 133 ml 01/10/19 10:14 Fleet Adult RECTAL DAILY PRN Constipation Tamsulosin HCl 0.4 mg 01/10/19 21:00 01/10/19 19:51 Flomax PO 0.4 mg HS JAIME Administration Zinc Sulfate 220 mg 01/10/19 17:00 01/10/19 17:46 Orazinc PO 220 mg DAILY@1700 JAIME Administration Intake and Output 01/10/19 01/11/19 01/11/19 22:59 06:59 14:59 Output Total 200 380 200 Balance -200 -380 -200 Output: Urine 200 380 200 01/10/19 10:09 01/10/19 10:09
[2019-01-11] MEDS: IPRATROPIUM-ALBUTEROL 3 ML NEB INHALATION PRN (11:27)
[2019-01-11 11:30] LABS: Anisocytosis Slight; Basophils # (A) 0.1 k/uL (0-0.2); Basophils % (A) 1 %; Eosinophils # (A) 0.6 k/uL (0-0.7); Eosinophils % (A) 8 %; HCT 23.9 % (39.0-53.0); Hypochromasia Marked; Lymphocytes # (A) 0.5 k/uL (1.0-4.8); Lymphocytes % (A) 7 %; MCH 30.6 pg (25.0-35.0); MCHC 29.2 g/dL (31.0-37.0); Macrocytosis Marked; Mean Platelet Volume 7.2; Monocytes # (A) 0.3 k/uL (0-1.0); Monocytes % (A) 4 %; Neutrophils # (A) 5.9 k/uL (1.3-7.7); Neutrophils % (A) 79 %; Platelet Count 199 k/uL (150-450); RBC 2.28 m/uL (4.30-5.90); WBC 7.4 k/uL (3.8-10.6)
--- NOTE | 2019-01-11 11:34 | P.CONS ---
History of Present Illness - Reason for Consult Consult date: 01/11/19 Sepsis - History of Present Illness This is a 73-year-old male well-known to ID service as he was recently seen following his extensive mitral valve repair for his mitral stenosis and also repair of ruptured chordae tendon a. Prior to the finding of severe mitral stenosis he did have coronary disease and a percutaneous intervention occurred with stenting of a drug-eluting type. Afterward the open heart procedure occurred. Due to his weakness has been recovering at the extended care facility. Patient was discharged from [facility] on Monday and is currently living at home with his . Patient has developed increasing fatigue along with shortness of breath increased somnolence decreased appetite. Temperature max 100.9, initial white count 11.4 with repeated 8.4. Lactic acid 1.2 Patient presented with acute kidney injury from [facility] with BUN of 91 and creatinine 2.86, potassium 5.4. ProBNP 16,800, urinalysis cloudy with nitrate and leukoesterase negative. Influenza testing negative. Blood culture currently showing no growth at 24 hours. Chest x-ray confirmed a heart failure. According to his nurse, he has had more confusion this morning but did not sleep last night. He is followed by nephrology for acute kidney injury and [facility] and in [facility] for acute systolic heart failure. He is currently on IV Lasix 40 mg every 8 hours. He states his lower extremity edema is improved but note patient continues to have edema. He states he was urinating every hour during the night. Patient knowledge is that he hasn't some confusion and possible hallucinations during the night as well. There is a consult in place for cardiology regarding mitral valve repair and heart failure. Review of Systems Constitutional: Reports daytime sleepiness, Reports fatigue, Reports lethargy, Reports malaise, Reports poor appetite, Reports weakness, Denies chills, Denies fever Eyes: denies blurred vision, denies pain Ears, nose, mouth and throat: Denies dental pain, Denies nasal congestion, Denies nasal discharge, Denies sore throat, Denies vertigo Cardiovascular: Reports dyspnea on exertion, Reports edema, Reports leg edema, Denies chest pain, Denies lightheadedness, Denies shortness of breath, Denies syncope Respiratory: Reports dyspnea, Reports home oxygen, Denies cough, Denies excessive sputum, Denies hemoptysis, Denies respiratory infections Gastrointestinal: Reports loss of appetite, Denies abdominal pain, Denies diarrhea, Denies nausea, Denies vomiting Genitourinary: Reports urinary frequency, Denies dysuria Musculoskeletal: Reports muscle weakness, Denies frequent falls, Denies myalgias Integumentary: Reports color changes, Reports darkening of skin, Reports wounds, Denies pruritus, Denies rash Neurological: Reports change in mentation, Reports change in speech, Denies numbness, Denies seizures, Denies weakness Psychiatric: Denies anxiety, Denies depression Endocrine: Denies fatigue, Denies weight change Past Medical History Past Medical History: Atrial Fibrillation, Coronary Artery Disease (CAD), Heart Failure, COPD, Diabetes Mellitus, Eye Disorder, Hyperlipidemia, Hypertension, Osteoarthritis (OA), Renal Disease, Sleep Apnea/CPAP/BIPAP Additional Past Medical History / Comment(s): SOB w/exertion,CATARACTS, sleep apnea without home CPAP use History of Any Multi-Drug Resistant Organisms: None Reported Past Surgical History: Adenoidectomy, Heart Catheterization, Heart Catheterization With Stent, Tonsillectomy Additional Past Surgical History / Comment(s): FAUSTINO,COLONOSCOPY, heart cath 09/11/18, heart catheterization 09/24/2018 with drug-eluting stent placed to the LAD mitral valve repair on 10/31/2018. Past Anesthesia/Blood Transfusion Reactions: No Reported Reaction Additional Past Anesthesia/Blood Transfusion Reaction / Comm: no hx blood transfusion Date of Last Stent Placement:: September 2018 Past Psychological History: No Psychological Hx Reported Additional Psychological History / Comment(s): Pt resides with his spouse. He uses no assistive device. He has not been driving d/t recent surgery, spouse can drive. Pt is receiving home care thru [facility]-nurse and PT. Smoking Status: Former smoker Past Alcohol Use History: Rare Additional Past Alcohol Use History / Comment(s): Pt started smoking in 1958 and quit in 2007. He smoked pipe. Past Drug Use History: None Reported - Past Family History Father Family Medical History: Cancer, Diabetes Mellitus Additional Family Medical History / Comment(s): BLADDER CANCER Mother Family Medical History: Congestive Heart Failure (CHF) Additional Family Medical History / Comment(s): AT AGE 68 Medications and Allergies Home Medications Medication Instructions Recorded Confirmed Type Cholecalciferol [Vitamin D3 (25 2,000 unit PO DAILY@1700 01/04/16 01/09/19 History Mcg = 1000 Iu)] Ferrous Sulfate [Iron (65 MG 325 mg PO DAILY 01/04/16 01/09/19 History Elemental)] L.acidoph,Paracasei, B.lactis 1 cap PO DAILY@1700 01/04/16 01/09/19 History [Probiotic] Multivitamins, Thera [Multivitamin 1 tab PO DAILY@1700 01/09/17 01/09/19 History (formulary)] Zinc 50 mg PO DAILY@1700 07/17/18 01/09/19 History Albuterol Inhaler [Ventolin Hfa 1 - 2 puff INHALATION RT-Q6H PRN 11/11/18 01/09/19 Rx Inhaler] #1 inhaler Amiodarone [Cordarone] 200 mg PO DAILY #15 tab 11/11/18 01/09/19 Rx Insulin Detemir [Levemir Flextouch] 10 units SQ HS 30 Days #3 pen 11/11/18 01/09/19 Rx Aspirin 81 mg PO DAILY@1700 11/29/18 01/09/19 History Magnesium Hydroxide [Milk of 2,400 mg PO DAILY PRN 11/29/18 01/09/19 History Magnesia] Metoprolol Tartrate [Lopressor] 50 mg PO BID@0900,2100 11/29/18 01/09/19 History Na Phos,M-B/Na Phos,Di-Ba [Fleet 133 ml RECTAL DAILY PRN 11/29/18 01/09/19 History Adult] Acetaminophen-Codeine 300-30mg 1 - 2 tab PO Q6H PRN #6 tab 12/13/18 01/09/19 Rx [Tylenol w/codeine #3] Atorvastatin [Lipitor] 40 mg PO HS tab 12/13/18 01/09/19 Rx Escitalopram [Lexapro] 10 mg PO HS tab 12/13/18 01/09/19 Rx Pantoprazole [Protonix] 40 mg PO AC-BRKFST tablet. 12/13/18 01/09/19 Rx Acetaminophen Tab [Tylenol Tab] 650 mg PO Q4H PRN 12/23/18 01/09/19 History Clopidogrel [Plavix] 75 mg PO DAILY@0900 12/23/18 01/09/19 History Darbepoetin Ruddy [Aranesp] 40 mcg SQ TU 12/23/18 01/09/19 History Furosemide [Lasix] 40 mg PO BID@899,209912/23/18 01/09/19 History Gabapentin [Neurontin] 100 mg PO BID@0900,209912/23/18 01/09/19 History INSULIN ASPART (NovoLOG) [NovoLOG See Protocol SQ ACHS 12/23/18 01/09/19 History (formulary)] Potassium Chloride [Klor-Con 20] 20 meq PO DAILY 12/23/18 01/09/19 History Sennosides-Docusate Sodium 2 tab PO BID 12/23/18 01/09/19 History [Senokot-S] Tamsulosin [Flomax] 0.4 mg PO HS 12/23/18 01/09/19 History traMADol HCL 50 mg PO Q6H PRN 12/23/18 01/09/19 History Cetirizine HCl [Zyrtec] 10 mg PO DAILY 01/09/19 01/09/19 History SILVER sulfADIAZINE Cream 1 applic TOPICAL HS 01/09/19 01/09/19 History [Silvadene 1% Cream] Allergies Allergy/AdvReac Type Severity Reaction Status Date / Time No Known Allergies Allergy Verified 01/09/19 21:16 Physical Exam Vitals: Vital Signs Temp Pulse Pulse Resp BP Pulse Ox 01/11/19 05:23 97.8 F 62 16 143/74 94 L 01/10/19 20:59 98.3 F 66 16 151/77 93 L 01/10/19 16:11 68 01/10/19 15:59 66 01/10/19 13:04 98 F 66 16 142/65 96 Intake and Output 01/10/19 01/11/19 01/11/19 22:59 06:59 14:59 Output Total 200 380 200 Balance -200 -380 -200 Output: Urine 200 380 200 HEENT: Anicteric conjunctiva are pink and moist nasal mucosa grossly intact and dry without significant lesions, there is no thrush. Poor dentition Neck: The neck is supple without significant lymphadenopathy or thyromegaly. Lungs: Bibasilar crackles are heard. No wheezing. No intercostal retractions. Heart: Irregular audible S1 and S2 2/6 systolic murmur left sternal border PMI nondisplaced Abdomen: Positive bowel sounds soft and nontender without palpable masses or organomegaly. There was no guarding or rebound. Extremities: The upper extremities have excellent pulses they are symmetric, no significant petechiae or telangiectasia. No splinter hemorrhages were noted. The lower extremities are wrapped with a large dressing,Kerlix and Zi wraps with reported evidence of blistering to the left leg, bilateral erythema. Neuro: Awake alert oriented to person place and time. There are no acute new gross focal sensory motor deficits. Results Results: Laboratory Results WBC 8.4 k/uL (3.8-10.6) 01/10/19 10:09 RBC 2.21 m/uL (4.30-5.90) L 01/10/19 10:09 Hgb 7.0 gm/dL (13.0-17.5) L 01/10/19 10:09 Hct 22.6 % (39.0-53.0) L 01/10/19 10:09 MCV 102.3 fL (80.0-100.0) H 01/10/19 10:09 MCH 31.4 pg (25.0-35.0) 01/10/19 10:09 MCHC 30.7 g/dL (31.0-37.0) L 01/10/19 10:09 RDW 18.2 % (11.5-15.5) H 01/10/19 10:09 Plt Count 192 k/uL (150-450) 01/10/19 10:09 Neutrophils % 86 % 01/10/19 10:09 Lymphocytes % 5 % 01/10/19 10:09 Monocytes % 5 % 01/10/19 10:09 Eosinophils % 2 % 01/10/19 10:09 Basophils % 1 % 01/10/19 10:09 Neutrophils # 7.2 k/uL (1.3-7.7) 01/10/19 10:09 Lymphocytes # 0.4 k/uL (1.0-4.8) L 01/10/19 10:09 Monocytes # 0.4 k/uL (0-1.0) 01/10/19 10:09 Eosinophils # 0.2 k/uL (0-0.7) 01/10/19 10:09 Basophils # 0.0 k/uL (0-0.2) 01/10/19 10:09 Hypochromasia Marked 01/10/19 10:09 Anisocytosis Slight 01/10/19 10:09 Macrocytosis Moderate 01/10/19 10:09 PT 12.2 sec (9.0-12.0) H 01/09/19 21:51 INR 1.2 (<1.2) H 01/09/19 21:51 APTT 24.5 sec (22.0-30.0) 01/09/19 21:51 Sodium 140 mmol/L (137-145) 01/10/19 10:09 Potassium 5.1 mmol/L (3.5-5.1) 01/10/19 10:09 Chloride 100 mmol/L (98-107) 01/10/19 10:09 Carbon Dioxide 29 mmol/L (22-30) 01/10/19 10:09 Anion Gap 11 mmol/L 01/10/19 10:09 BUN 85 mg/dL (9-20) H 01/10/19 10:09 Creatinine 2.74 mg/dL (0.66-1.25) H 01/10/19 10:09 Est GFR (CKD-EPI)AfAm 25 (>60 ml/min/1.73 sqM) 01/10/19 10:09 Est GFR (CKD-EPI)NonAf 22 (>60 ml/min/1.73 sqM) 01/10/19 10:09 Glucose 213 mg/dL (74-99) H 01/10/19 10:09 POC Glucose (mg/dL) 143 mg/dL (75-99) H 01/11/19 09:01 POC Glu Clinical Fellow ID 01/11/19 09:01 Plasma Lactic Acid Guy 1.2 mmol/L (0.7-2.0) 01/09/19 22:54 Calcium 8.7 mg/dL (8.4-10.2) 01/10/19 10:09 Total Bilirubin 0.7 mg/dL (0.2-1.3) 01/09/19 21:51 AST 39 U/L (17-59) 01/09/19 21:51 ALT 28 U/L (21-72) 01/09/19 21:51 Alkaline Phosphatase 132 U/L (38-126) H 01/09/19 21:51 NT-Pro-B Natriuret Pep 23724 pg/mL 01/10/19 10:15 Total Protein 7.2 g/dL (6.3-8.2) 01/09/19 21:51 Albumin 3.6 g/dL (3.5-5.0) 01/09/19 21:51 Urine Color Yellow 01/10/19 03:24 Urine Appearance Cloudy (Clear) 01/10/19 03:24 Urine pH 5.0 (5.0-8.0) 01/10/19 03:24 Ur Specific [place] 1.014 (1.001-1.035) 01/10/19 03:24 Urine Protein 1+ (Negative) H 01/10/19 03:24 Urine Glucose (UA) Negative (Negative) 01/10/19 03:24 Urine Ketones Negative (Negative) 01/10/19 03:24 Urine Blood Moderate (Negative) H 01/10/19 03:24 Urine Nitrite Negative (Negative) 01/10/19 03:24 Urine Bilirubin Negative (Negative) 01/10/19 03:24 Urine Urobilinogen <2.0 mg/dL (<2.0) 01/10/19 03:24 Ur Leukocyte Esterase Negative (Negative) 01/10/19 03:24 Urine RBC 5 /hpf (0-5) 01/10/19 03:24 Urine WBC <1 /hpf (0-5) 01/10/19 03:24 Ur Squamous Epith Cells 1 /hpf (0-4) 01/10/19 03:24 Amorphous Sediment Rare /hpf (None) H 01/10/19 03:24 Hyaline Casts 2 /lpf (0-2) 01/10/19 03:24 Urine Mucus Rare /hpf (None) H 01/10/19 03:24 Stool Occult Blood Negative (Negative) 01/11/19 10:00 Influenza Type A RNA Not Detected (Not Detectd) 01/09/19 21:40 Influenza Type B (PCR) Not Detected (Not Detectd) 01/09/19 21:40 CBC & Chem 7: 01/10/19 10:09 01/10/19 10:09 Labs: Abnormal Lab Results - Last 24 Hours (Table) 01/10/19 01/10/19 01/10/19 Range/Units 11:45 17:21 20:46 POC Glucose (mg/dL) 243 H 229 H 225 H (75-99) mg/dL 01/11/19 Range/Units 09:01 POC Glucose (mg/dL) 143 H (75-99) mg/dL Microbiology - Last 24 Hours (Table) 01/09/19 21:51 Blood Culture - Preliminary Blood No Growth after 24 hours Assessment and Plan Plan: This is a 73-year-old male who presented to the hospital with generalized weakness fatigue, shortness of breath increased somnolence secondary to acute systolic heart failure and acute kidney injury with ATN. Pneumonia has been ruled out by pulmonary medicine. Patient also presents with lower extremity cellulitis. Wound care team consult will be added. Blood cultures currently no growth at 24 hours. Continue supportive care. Further recommendations as patient progresses. The above dictated assessment and findings were discussed with Dr. Burrell. The impression and plan of care have been directed as dictated. Ivis Adams nurse practitioner acting as scribe for Dr. Burrell.
[2019-01-11 11:43] LABS: Calcium 8.8 mg/dL (8.4-10.2)
[2019-01-11 11:48] LABS: Potassium 4.6 mmol/L (3.5-5.1)
[2019-01-11] MEDS ORDERED: Magnesium Replacement Protocol 1 EACH MISC MISCELLANE PRN (11:58)
[2019-01-11] MEDS: hydrALAZINE HCL 25 MG TAB PO SCH ×2 (12:21→21:37)
[2019-01-11] MEDS: MAGNESIUM SULFATE-D5W PMX 1 GM in DEXTROSE/WATER 1 100ML.BAG IVPB SCH ×3 (12:23→17:04)
[2019-01-11 12:24] LABS: Glucose,Whole Blood 119 mg/dL (75-99)
--- NOTE | 2019-01-11 12:38 | ECHOF ---
Referral Reason:sob MEASUREMENTS -------- HEIGHT: 167.6 cm WEIGHT: 99.8 kg BP: 143/74 RVIDd: 5.2 cm (< 3.3) IVSd: 1.5 cm (0.6 - 1.1) LVIDd: 4.7 cm (3.9 - 5.3) LVPWd: 1.6 cm (0.6 - 1.1) IVSs: 2.0 cm LVIDs: 3.2 cm LVPWs: 2.1 cm LA Diam: 5.0 cm (2.7 - 3.8) Ao Diam: 3.2 cm (2.0 - 3.7) AV Cusp: 1.4 cm (1.5 - 2.6) LA Diam: 5.0 cm (2.7 - 3.8) RAP: 5.00 mmHg RVSP: 69.54 mmHg FINDINGS -------- Resting bradycardia (HR<60bpm). This was a technically adequate study. The left ventricular size is normal. There is moderate concentric left ventricular hypertrophy. O verall left ventricular systolic function is low-normal with, an EF between 50 - 55 %. Septal wall motion is delayed and consistent with prior cardiac surgery. The right ventricle is severely enlarged. The left atrium is moderately dilated. The right atrium is mildly enlarged. Interatrial and interventricular septum intact. There is moderate aortic valve sclerosis. Trace to mild aortic regurgitation. There is no evidenc e of aortic stenosis. Mild mitral annular calcification present. Emwl-ly-cdwtkaci mitral regurgitation is present. The peak and mean MV gradients are 17.12mmHg 6.13mmHg as measured by doppler. Moderate mitral stenosis , with a MVA of 1.7cm (by PHT) MV Repair. Moderate tricuspid regurgitation present. There is severe pulmonary hypertension. The right ventr icular systolic pressure, as measured by Doppler, is 69.54mmHg. The pulmonic valve was not well visualized. There is no pulmonic regurgitation present. The aortic root size is normal. The inferior vena cava is mildly dilated. There is no pericardial effusion. CONCLUSIONS -------- 1. Resting bradycardia (HR<60bpm). 2. This was a technically adequate study. 3. The left ventricular size is normal. 4. There is moderate concentric left ventricular hypertrophy. 5. Overall left ventricular systolic function is low-normal with, an EF between 50 - 55 %. 6. Septal wall motion is delayed and consistent with prior cardiac surgery. 7. The right ventricle is severely enlarged. 8. The left atrium is moderately dilated. 9. The right atrium is mildly enlarged. 10. Interatrial and interventricular septum intact. 11. There is moderate aortic valve sclerosis. 12. Trace to mild aortic regurgitation. 13. There is no evidence of aortic stenosis. 14. Egrc-qe-homgnrdf mitral regurgitation is present. 15. The peak and mean MV gradients are 17.12mmHg 6.13mmHg as measured by doppler. 16. Moderate mitral stenosis. 17. , with a MVA of 1.7cm (by PHT) 18. MV Repair. 19. Moderate tricuspid regurgitation present. 20. There is severe pulmonary hypertension. 21. The right ventricular systolic pressure, as measured by Doppler, is 69.54mmHg. 22. The pulmonic valve was not well visualized. 23. There is no pulmonic regurgitation present. 24. The aortic root size is normal. 25. The inferior vena cava is mildly dilated. 26. There is no pericardial effusion. PROPRIETARY TRADER: Regla Floyd RDCS
[2019-01-11 13:59] LABS: Glucose,Whole Blood 220 mg/dL (75-99)
--- NOTE | 2019-01-11 14:17 | P.PN ---
Subjective Patient is seen in follow-up for acute kidney injury. Renal function is improving. Creatinine 2.4 today. No vomiting or diarrhea. Currently main tained on IV Lasix 40 mg 3 times daily. Urine output has been good. Denies active chest pain or shortness of breath. Vital signs are stable. General: The patient appeared well nourished and normally developed. HEENT: Head exam is unremarkable. Neck is without jugular venous distension. LUNGS: Breath sounds decreased. HEART: Rate and Rhythm are regular. First and second heart sounds normal. No murmurs, rubs or gallops. ABDOMEN: Abdominal exam reveals normal bowel sounds. Non-tender and non-d istended. EXTREMITITES: 1+ edema. Objective - Vital Signs Vital signs: Vital Signs Temp 97.5 F L 01/11/19 13:07 Pulse 62 01/11/19 13:07 Resp 18 01/11/19 13:07 BP 120/61 01/11/19 13:07 Pulse Ox 97 01/11/19 13:07 Intake & Output 01/10/19 01/11/19 01/11/19 18:59 06:59 18:59 Intake Total 50 Output Total 580 650 Balance 50 -580 -650 Intake: Intake, IV Titration 50 Amount Piperacillin-Tazobactam 3 50 .375 gm In Sodium Chloride 0.9% 100 ml @ 25 mls/hr IVPB Q8H [facility] Rx#: [id number] Output: Urine 580 650 Other: # Bowel Movements 1 - Labs CBC & Chem 7: 01/11/19 10:22 01/11/19 10:22 Labs: Abnormal Lab Results - Last 24 Hours (Table) 01/10/19 01/10/19 01/11/19 Range/Units 17:21 20:46 09:01 RBC (4.30-5.90) m/uL Hgb (13.0-17.5) gm/dL Hct (39.0-53.0) % MCV (80.0-100.0) fL MCHC (31.0-37.0) g/dL RDW (11.5-15.5) % Lymphocytes # (1.0-4.8) k/uL Macrocytosis BUN (9-20) mg/dL Creatinine (0.66-1.25) mg/dL Glucose (74-99) mg/dL POC Glucose (mg/dL) 229 H 225 H 143 H (75-99) mg/dL Magnesium (1.6-2.3) mg/dL 01/11/19 01/11/19 01/11/19 Range/Units 10:22 10:22 10:22 RBC 2.28 L (4.30-5.90) m/uL Hgb 7.0 L (13.0-17.5) gm/dL Hct 23.9 L (39.0-53.0) % MCV 105.0 H (80.0-100.0) fL MCHC 29.2 L (31.0-37.0) g/dL RDW 19.0 H (11.5-15.5) % Lymphocytes # 0.5 L (1.0-4.8) k/uL Macrocytosis Marked A BUN 87 H (9-20) mg/dL Creatinine 2.40 H (0.66-1.25) mg/dL Glucose 112 H (74-99) mg/dL POC Glucose (mg/dL) (75-99) mg/dL Magnesium 1.4 L (1.6-2.3) mg/dL 01/11/19 01/11/19 Range/Units 12:22 13:57 RBC (4.30-5.90) m/uL Hgb (13.0-17.5) gm/dL Hct (39.0-53.0) % MCV (80.0-100.0) fL MCHC (31.0-37.0) g/dL RDW (11.5-15.5) % Lymphocytes # (1.0-4.8) k/uL Macrocytosis BUN (9-20) mg/dL Creatinine (0.66-1.25) mg/dL Glucose (74-99) mg/dL POC Glucose (mg/dL) 119 H 220 H (75-99) mg/dL Magnesium (1.6-2.3) mg/dL Microbiology - Last 24 Hours (Table) 01/09/19 21:51 Blood Culture - Preliminary Blood No Growth after 24 hours Assessment and Plan Plan: Assessment: 1. Acute kidney injury mostly prerenal secondary to cardiorenal syndrome. Renal function improving. Creatinine 2.4 today. 2. 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 3. Volume overload. 4. Anemia. Stool for occult blood negative. Rule out iron deficiency. 5. Acute on chronic diastolic CHF with mild to moderate mitral regurgitation, moderate tricuspid regurgitation and severe pulmonary hypertension. 6. Hypomagnesemia secondary to diuresis. 7. Insulin-dependent diabetes mellitus. Plan: Maintain Lasix 40 mg IV 3 times daily. Check iron studies. Magnesium replacement. Avoid nephrotoxins. Discontinue Fleet enemas. Repeat electrolytes in the morning.
[2019-01-11] MEDS ORDERED: NALOXONE 0.4 MG/ML 1 ML VIAL IV PRN (14:42)
--- NOTE | 2019-01-11 15:22 | P.PN ---
Subjective Progress Note Date: 01/11/19 Principal diagnosis: Fatigue, lethargy, shortness of breath This is a 73-year-old white male patient of Dr. Patel, with recent history of mitral valve repair for history of severe mitral valve regurgitation with severely calcified mitral valve annulus, status post complex mitral valve repair on 10/31/2018. Other medical history includes coronary artery disease with recent drug-eluting stent placement in the LAD in September 2018, chronic diastolic heart failure, hypertension, hyperlipidemia, type 2 diabetes mellitus with peripheral neuropathy, chronic kidney disease, moderately severe COPD, obstructive sleep apnea without home CPAP use, hypertension, obesity, previous tobacco dependence and paroxysmal atrial fibrillation. Following his surgery patient went to subacute rehab at [facility] for further rehabilitation related to significant weakness, and prolonged recovery postoperative mitral valve repair. Patient also had recent hospitalization in November for bila teral lower extremity cellulitis. Patient was treated with Zosyn and vancomycin, the swelling and the blistering have improved. On 01/09/2019 patient presents to the emergency department per EMS for evaluation of increasing lethargy and fatigue, patient states that she feels more drowsy than normal, he is sleeping more, he is not eating because he is too tired, mildly short of breath, no altered mentation, no fever or chills, no cough or congestion, no hemoptysis. Chest x-ray showed cardiomegaly and left pleural effusion, pulmonary edema. EKG showed sinus rhythm with first-degree AV block, anterior infarct of undetermined age. Labs showed a white blood cell count of 11.4, hemoglobin of 7.9, INR is 1.2, sodium is 138, potassium is 5.4, chloride was 98, CO2 was 31, BUN is 91, creatinine is 2.86, lactic acid is 1.2, proBNP was significantly elevated at 16,800, urinalysis showed 1+ protein, moderate blood, but no evidence of infection. Fluids a screen was negative. Did have low-grade fever of 100.9F on presentation, he has been afebrile since. He had 92% O2 saturation on 2 L of oxygen, hemodynamically stable. He was started on combination of Levaquin and Zosyn for possibility of pneumonia however clinical presentation is more consistent with acute congestive heart failure, patient's echocardiogram from 11/30/2018 showed EF of 50-55%, severe mitral annular calcification, moderate mitral regurgitation, mild to moderate tricuspid regurgitation, moderate to severe pulmonary hypertension with PA systolic of 52 mmHg. On 01/11/2019 patient seen in follow-up on medical surgical floor. Patient is lethargic, more drowsy. Vital signs appear to be normal, she is on 2 L of o xygen with pulse ox of 97%, lung sounds are diminished, with scattered crackles throughout the lung horan, no fever or chills. We started the patient on IV Lasix 40 mg every 8 hours, weight trend is unknown, and patient has been incontinent of large amounts of urine. Lower extremity edema is improving, lower extremity is covered with Zi wrapped dressings. We consulted cardiology for reevaluation of his persistent mitral regurgitation and patient may require transesophageal echocardiogram. Today's labs have been reviewed, showing white blood cell count of 7.4, hemoglobin 7.0, electrolytes are within normal limits, renal profile stable BUN of 87, creatinine of 2.4, urine eosinophils was 0 influenza was negative. Echocardiogram was completed showed EF of 50-55%, mild aortic regurgitation, no evidence of aortic stenosis, [id number] mitral regurgitation is present, the peak and mean and the ingredients of her 17.1 mmHg and 6.13 mmHg, moderate mitral stenosis, and moderate tricuspid regurgitation and severe pulmonary hypertension with PA systolics of 69 mmHg. No vomiting or diarrhea, patient does get short of breath with exertion, otherwise in no acute distress. Objective - Vital Signs Vital signs: Vital Signs Temp 97.5 F L 01/11/19 13:07 Pulse 62 01/11/19 13:07 Resp 18 01/11/19 13:07 BP 120/61 01/11/19 13:07 Pulse Ox 97 01/11/19 13:07 Intake & Output 01/10/19 01/11/19 01/11/19 18:59 06:59 18:59 Intake Total 50 Output Total 580 650 Balance 50 -580 -650 Intake: Intake, IV Titration 50 Amount Piperacillin-Tazobactam 3 50 .375 gm In Sodium Chloride 0.9% 100 ml @ 25 mls/hr IVPB Q8H [facility] Rx#: [id number] Output: Urine 580 650 Other: # Bowel Movements 1 - Exam GENERAL EXAM: Alert, pleasant, 73-year-old white male, on 2 L of oxygen with a pulse ox of 96%, comfortable in no apparent distress. HEAD: Normocephalic/atraumatic. EYES: Normal reaction of pupils, equal size. Conjunctiva pink, sclera white. NOSE: Clear with pink turbinates. THROAT: No erythema or exudates. NECK: No masses, no JVD, no thyroid enlargement, no adenopathy. CHEST: No chest wall deformity. Symmetrical expansion. LUNGS: Equal air entry with diffuse crackles, but no wheeze, rhonchi or dullness. CVS: Regular rate and rhythm, normal S1 and S2, no gallops, no murmurs, no rubs ABDOMEN: Soft, nontender. No hepatosplenomegaly, normal bowel sounds, no guarding or rigidity. EXTREMITIES: No clubbing, bilateral lower extremity edema, and small healing blisters on his anterior shins, and his bilateral feet with no significant surrounding erythema or warmth, no cyanosis, 2+ pulses and upper and lower extremities. Both lower extremities are Zi wrapped MUSCULOSKELETAL: Muscle strength and tone normal. SPINE: No scoliosis or deformity SKIN: No rashes CENTRAL NERVOUS SYSTEM: Alert and oriented -3. No focal deficits, tone is normal in all 4 extremities. PSYCHIATRIC: Alert and oriented -3. Appropriate affect. Intact judgment and insight. - Labs CBC & Chem 7: 01/11/19 10:22 01/11/19 10:22 Labs: Abnormal Lab Results - Last 24 Hours (Table) 01/10/19 01/10/19 01/11/19 Range/Units 17:21 20:46 09:01 RBC (4.30-5.90) m/uL Hgb (13.0-17.5) gm/dL Hct (39.0-53.0) % MCV (80.0-100.0) fL MCHC (31.0-37.0) g/dL RDW (11.5-15.5) % Lymphocytes # (1.0-4.8) k/uL Macrocytosis BUN (9-20) mg/dL Creatinine (0.66-1.25) mg/dL Glucose (74-99) mg/dL POC Glucose (mg/dL) 229 H 225 H 143 H (75-99) mg/dL Magnesium (1.6-2.3) mg/dL 01/11/19 01/11/19 01/11/19 Range/Units 10:22 10:22 10:22 RBC 2.28 L (4.30-5.90) m/uL Hgb 7.0 L (13.0-17.5) gm/dL Hct 23.9 L (39.0-53.0) % MCV 105.0 H (80.0-100.0) fL MCHC 29.2 L (31.0-37.0) g/dL RDW 19.0 H (11.5-15.5) % Lymphocytes # 0.5 L (1.0-4.8) k/uL Macrocytosis Marked A BUN 87 H (9-20) mg/dL Creatinine 2.40 H (0.66-1.25) mg/dL Glucose 112 H (74-99) mg/dL POC Glucose (mg/dL) (75-99) mg/dL Magnesium 1.4 L (1.6-2.3) mg/dL 01/11/19 01/11/19 Range/Units 12:22 13:57 RBC (4.30-5.90) m/uL Hgb (13.0-17.5) gm/dL Hct (39.0-53.0) % MCV (80.0-100.0) fL MCHC (31.0-37.0) g/dL RDW (11.5-15.5) % Lymphocytes # (1.0-4.8) k/uL Macrocytosis BUN (9-20) mg/dL Creatinine (0.66-1.25) mg/dL Glucose (74-99) mg/dL POC Glucose (mg/dL) 119 H 220 H (75-99) mg/dL Magnesium (1.6-2.3) mg/dL Microbiology - Last 24 Hours (Table) 01/09/19 21:51 Blood Culture - Preliminary Blood No Growth after 24 hours Assessment and Plan Plan: Assessment: #1. Lethargy and weakness likely related to acute exacerbation of systolic congestive heart failure #2. Acute exacerbation of systolic congestive heart failure, doubt possibility of pneumonia, chest x-ray showed pulmonary edema, proBNP was elevated at 16,800, no leukocytosis, no fever or chills, #3. Recent complex mitral valve repair in October 2018 for history of severe eccentric mitral valve regurgitation with severely calcified mitral valve annulus #4. Valvular heart disease, last echocardiogram showed systolic moderate mitral valve regurgitation, [id number] TR, and pulmonary hypertension with PA systolic of 52 mmHg #5. Acute kidney injury #6. Bilateral lower extremity cellulitis, and patient was recently hospitalized treated with IV antibiotics, and his lower extremities are improving, less swollen, and there is no redness or warmth #7. Severe chronic congestive heart failure with diastolic dysfunction, and his echocardiogram showed EF of 50-55% #8. 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 Obstructive sleep apnea not on home CPAP #10. Coronary artery disease with recent placement of a drug-eluting stent to the LAD in September 2018 #11. Hypertension #12. Hyperlipidemia #13. Diabetes mellitus type 2 with peripheral neuropathy #14. Previous history of smoking Plan: We will transfer the patient to the intensive care unit for closer monitoring, echocardiogram results have been reviewed, and showed preserved EF of 50-55%, mild to moderate mitral regurgitation, and moderate mitral stenosis, and no FAUSTINO is planned at this time. Obtain a follow-up chest x-ray, renal profile is stable, nephrology is following. Acute intake and output, daily weights, daily labs and renal profile. Will continue current dose of diuretics. Local wound care to the lower extremities, we stopped the diuretics yesterday. I performed a history & physical examination of the patient and discussed their management with my nurse practitioner, Lashon Jaimes. I reviewed the nurse practitioner's note and agree with the documented findings and plan of care. Lung sounds are positive for diminished with a few scattered crackles. The findings and the impression was discussed with the patient. I attest to the documentation by the nurse practitioner. Time with Patient: Less than 30
--- NOTE | 2019-01-11 15:31 | XR ---
EXAMINATION TYPE: XR chest 1V portable DATE OF EXAM: 01/11/2019 CLINICAL HISTORY: Difficulty breathing progress study. TECHNIQUE: Single AP portable upright view of the chest is obtained. COMPARISON: Chest x-ray from one day earlier and older studies. CT chest December 23, 2018. FINDINGS: Cardiomegaly with cardiac closure device redemonstrated. Overlying sternal wires again see n. Low lung volumes redemonstrated. Moderate central vascular congestion with left greater than right bibasilar opacities remains present. Osseous structures are intact. IMPRESSION: Overall stable findings from chest x-ray one day earlier, low lung volumes and cardiomeg jean pierre with moderate central vascular congestion and suspected small left pleural effusion with associat ed bibasilar atelectasis and/or infiltrate noted.
[2019-01-11 16:58] LABS: Glucose,Whole Blood 227 mg/dL (75-99)
[2019-01-11] MEDS: LACTOBACILLUS ACIDOPH & BULGAR 1 EACH PACKET PO SCH (17:05)
[2019-01-11] MEDS: CHOLECALCIFEROL 1,000 UNIT TAB PO SCH (17:05)
[2019-01-11] MEDS: MULTIVITAMINS, THERA 1 EACH TAB PO SCH (17:05)
[2019-01-11] MEDS: ASPIRIN 81 MG PO SCH (17:05)
--- NOTE | 2019-01-11 17:12 | P.PN ---
Subjective Progress Note Date: 01/11/19 73-year-old white male patient of Dr. Patel, with recent history of mitral valve repair for history of severe mitral valve regurgitation with severely calcified mitral valve annulus, status post complex mitral valve repair on 10/31/2018. Other medical history includes coronary artery disease with recent drug-eluting stent placement in the LAD in September 2018, chronic diastolic heart failure, hypertension, hyperlipidemia, type 2 diabetes mellitus with peripheral neuropathy, chronic kidney disease, moderately severe COPD, obstructive sleep apnea without home CPAP use, hypertension, obesity, previous tobacco dependence and paroxysmal atrial fibrillation. Following his surgery patient went to subacute rehab at [facility] for further rehabilitation related to significant weakness, and prolonged recovery postoperative mitral valve repair. Patient also had recent hospitalization in November for bilateral lower extremity cellulitis. Patient was treated with Zosyn and vancomycin, the swelling and the blistering have improved. 01/11/2019 Patient is seen and evaluated in room at bedside; patient complaints of difficulty sleeping; no other complaints; per nursing staff patient has been complaining of hallucinating during the night; no such complaints anymore Vital signs are reviewed and remained stable with a temperature of 97.5, pulse 62, respiration 18 and blood pressure 120/61 and SpO2 of 97% on 2 L Laboratory review shows a white blood count of 7.4, hemoglobin 7 and platelet count of [birth year]14/1989; sodium 139 and potassium of 4.6; BUN/creatinine has been slowly trending down from 2.7 yesterday down to 2.4; magnesium of 1.4; patient is started on electrolyte protocol; patient remains on IV diuretics per cardiology for acute exacerbation CHF and hydralazine is admitted; pulmonary service recommending to stop antibiotics for pneumonia; ID to see patient for trace of antibiotics for cellulitis Objective - Vital Signs Vital signs: Vital Signs Temp 97.8 F 01/11/19 05:23 Pulse 72 01/11/19 11:27 Resp 16 01/11/19 05:23 BP 143/74 01/11/19 05:23 Pulse Ox 94 L 01/11/19 05:23 Intake & Output 01/10/19 01/11/19 01/11/19 18:59 06:59 18:59 Intake Total 50 Output Total 580 200 Balance 50 -580 -200 Intake: Intake, IV Titration 50 Amount Piperacillin-Tazobactam 3 50 .375 gm In Sodium Chloride 0.9% 100 ml @ 25 mls/hr IVPB Q8H [facility] Rx#: [id number] Output: Urine 580 200 - Exam HEAD: Normocephalic/atraumatic. EYES: Normal reaction of pupils, equal size. Conjunctiva pink, sclera white. NOSE: Clear with pink turbinates. THROAT: No erythema or exudates. NECK: No masses, no JVD, no thyroid enlargement, no adenopathy. CHEST: No chest wall deformity. Symmetrical expansion. LUNGS: Equal air entry with diffuse crackles, but no wheeze, rhonchi or dullness. CVS: Regular rate and rhythm, normal S1 and S2, no gallops, no murmurs, no rubs ABDOMEN: Soft, nontender. No hepatosplenomegaly, normal bowel sounds, no guarding or rigidity. EXTREMITIES: No clubbing, bilateral lower extremity edema, and small healing blisters on his anterior shins, and his bilateral feet with no significant surrounding erythema or warmth, no cyanosis, 2+ pulses and upper and lower extremities. Both lower extremities are Zi wrapped - Labs CBC & Chem 7: 01/11/19 10:22 01/11/19 10:22 Labs: Abnormal Lab Results - Last 24 Hours (Table) 01/10/19 01/10/19 01/10/19 Range/Units 11:45 17:21 20:46 RBC (4.30-5.90) m/uL Hgb (13.0-17.5) gm/dL Hct (39.0-53.0) % MCV (80.0-100.0) fL MCHC (31.0-37.0) g/dL RDW (11.5-15.5) % Lymphocytes # (1.0-4.8) k/uL Macrocytosis POC Glucose (mg/dL) 243 H 229 H 225 H (75-99) mg/dL 01/11/19 01/11/19 Range/Units 09:01 10:22 RBC 2.28 L (4.30-5.90) m/uL Hgb 7.0 L (13.0-17.5) gm/dL Hct 23.9 L (39.0-53.0) % MCV 105.0 H (80.0-100.0) fL MCHC 29.2 L (31.0-37.0) g/dL RDW 19.0 H (11.5-15.5) % Lymphocytes # 0.5 L (1.0-4.8) k/uL Macrocytosis Marked A POC Glucose (mg/dL) 143 H (75-99) mg/dL Microbiology - Last 24 Hours (Table) 01/09/19 21:51 Blood Culture - Preliminary Blood No Growth after 24 hours Assessment and Plan Assessment: Generalized weakness, lethargy and altered mental status likely due to metabolic encephalopathy. Improving now Acute on chronic kidney disease stage III. Baseline creatinine around 1.1. Creatinine 2.86 on admission Acute on chronic CHF with diastolic dysfunction. gentle diuresis. Mild hyperkalemia due to acute kidney injury and also potassium supplementation at home Recent history of bilateral lower extremities cellulitis Status post antibiotic course at rehab Chronic Anemia/anemia of chronic disease Possible right lower lobe pneumonia. Low suspicion. Patient does have T-max 100.9 and no leukocytosis. Currently patient is afebrile. Severe mitral regurgitation with severely calcified mitral annulus. 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 Patient was continued on gentle hydration. Repeat CBC and BMP was ordered. Continue the home medications and avoid hypotension. Avoid nephrotoxic medications. Nephrology service will be consulted. ID is on board. Follow-up renal function and potassium level. PTOT will be consulted. Prognosis is guarded with multiple medical problems and comorbid conditions. Time with Patient: Greater than 30
[2019-01-11] MEDS: ZINC SULFATE 220 MG CAP PO SCH (18:39)
[2019-01-11 20:50] LABS: Glucose,Whole Blood 230 mg/dL (75-99)
[2019-01-11] MEDS ORDERED: INSULIN ASPART (NovoLOG) 100 UNIT/ML VIAL SQ ONE ×2 (21:07→21:21)
--- NOTE | 2019-01-11 21:19 | P.CON ---
Consult Note - . Consult date: 01/11/19 Assessment/Plan:: This is a 73-year-old male well-known to ID service as he was recently seen following his extensive mitral valve repair for his mitral stenosis and also repair of ruptured chordae tendon a. Prior to the finding of severe mitral stenosis he did have coronary disease and a percutaneous intervention occurred with stenting of a drug-eluting type. Afterward the open heart procedure occurred. Due to his weakness has been recovering at the [facility] care facility. Patient was discharged from [facility] on Monday and is currently living at home with his . Patient has developed increasing fatigue along with shortness of breath increased somnolence decreased appetite. Temperature max 100.9, initial white count 11.4 with repeated 8.4. Lactic acid 1.2 Patient presented with acute kidney injury from [facility] with BUN of 91 and creatinine 2.86, potassium 5.4. ProBNP 16,800, urinalysis cloudy with nitrate and leukoesterase negative. Influenza testing negative. Blood culture currently showing no growth at 24 hours. Chest x-ray confirmed a heart failure. According to his nurse, he has had more confusion this morning but did not sleep last night. He is followed by nephrology for acute kidney injury and [facility] and in [facility] for acute systolic heart failure. He is currently on IV Lasix 40 mg every 8 hours. He states his lower extremity edema is improved but note patient continues to have edema. He states he was urinating every hour during the night. Patient knowledge is that he hasn't some confusion and possible hallucinations during the night as well. There is a consult in place for cardiology regarding mitral valve repair and heart failure. Please see the consult note as dictated by nurse practitioner Mrs. Orellanay Bryan. The patient was home from the [facility] relatively [facility] period time before he had increasing illness with altered mental status increasing weakness and consequently EMS was called and the patient was brought back to hospital. He was found evidence of acute renal failure, metabolic encephalopathy worsening congestive heart failure. The patient does have a history of the recent surgical intervention to repair his mitral valve. The case is discussed with 100 critical-care and we will ask cardiology if the FAUSTINO can be performed to further evaluate his cardiac function. His significant and worsening status is concerning. The renal failure appears to be part of a cardiorenal syndrome and maneuvers to improve his cardiac function will certainly be helpful. He is getting diuresed and watch carefully and then again he has acute renal failure. He doesn't have significant lactic acidosis and BNP was markedly elevated despite the acute renal failure. At this time no positive cultures are noted. Admission was concerns to pneumonia because of the changes on the chest x-ray and was given a dose of Levaquin. The patient's chronic bilateral lower from a ulcerations are looking well and do not appear to be grossly infected. The edema is under good control. The large open ulcerations almost completely healed. Local care with Silvadene wrap will continue. I agree with evaluation, assessment and plan as dictated by nurse practitioner Mrs. Ivis Adams.
[2019-01-11] MEDS: TAMSULOSIN 0.4 MG CAP.ER.24H PO SCH (21:37)
[2019-01-11] MEDS: ATORVASTATIN 40 MG TAB PO SCH (21:37)
[2019-01-11] MEDS: INSULIN DETEMIR (LEVEMIR) 100 UNIT/ML SYR SQ SCH (21:37)
[2019-01-11] MEDS ORDERED: LEVOFLOXACIN 750MG-D5W PMX 750 MG in DEXTROSE/WATER 1 150ML.BAG IVPB SCH (22:00)
[2019-01-12] MEDS: FUROSEMIDE 10 MG/ML 4 ML VIAL IV SCH ×3 (00:36→16:20)
[2019-01-12] MEDS: ESCITALOPRAM 10 MG TAB PO SCH ×2 (00:36→21:41)
[2019-01-12] MEDS: HEPARIN SODIUM,PORCINE 5,000 UNIT/ML 1 ML VIAL SQ SCH ×3 (00:37→16:21)
[2019-01-12 05:39] LABS: Anisocytosis Slight; Basophils # (A) 0.1 k/uL (0-0.2); Basophils % (A) 1 %; Eosinophils # (A) 0.6 k/uL (0-0.7); Eosinophils % (A) 9 %; HCT 22.1 % (39.0-53.0); HGB 7.1 gm/dL (13.0-17.5); Hypochromasia Moderate; Lymphocytes # (A) 0.5 k/uL (1.0-4.8); Lymphocytes % (A) 8 %; MCH 31.5 pg (25.0-35.0); MCHC 31.9 g/dL (31.0-37.0); Macrocytosis Slight; Mean Platelet Volume 6.4; Monocytes # (A) 0.4 k/uL (0-1.0); Monocytes % (A) 5 %; Neutrophils % (A) 76 %; Platelet Count 220 k/uL (150-450); RBC 2.24 m/uL (4.30-5.90); RDW 18.6 % (11.5-15.5); WBC 6.6 k/uL (3.8-10.6)
[2019-01-12 05:41] LABS: MCV 98.6 fL (80.0-100.0)
[2019-01-12] MEDS: ACETAMINOPHEN TAB 325 MG TAB PO PRN ×3 (05:43→21:44)
--- NOTE | 2019-01-12 06:17 | XR ---
EXAMINATION TYPE: XR chest 1V DATE OF EXAM: 01/12/2019 HISTORY: Shortness of Breath. REFERENCE: Previous study dated 01/11/2019. FINDINGS: There has been a midline sternotomy. The heart remains enlarged. Continues to be airspace d isease at the left lung base but this has improved. There is a left effusion. Pulmonary vasculature h as improved. There is some continuing right basilar airspace disease. IMPRESSION: OVERALL IMPROVED AERATION OF BOTH LUNGS.
[2019-01-12 06:23] LABS: Calcium 8.9 mg/dL (8.4-10.2); Magnesium 1.9 mg/dL (1.6-2.3); Phosphorus 5.1 mg/dL (2.5-4.5); Potassium 4.7 mmol/L (3.5-5.1)
[2019-01-12] MEDS: INSULIN ASPART (NovoLOG) 100 UNIT/ML VIAL SQ SCH ×4 (06:53→21:33)
[2019-01-12 06:54] LABS: Glucose,Whole Blood 81 mg/dL (75-99)
[2019-01-12] MEDS: PANTOPRAZOLE 40 MG TABLET PO SCH (06:56)
[2019-01-12] MEDS: MAGNESIUM SULFATE-D5W PMX 1 GM in DEXTROSE/WATER 1 100ML.BAG IVPB SCH ×2 (06:56→08:29)
[2019-01-12] MEDS: IPRATROPIUM-ALBUTEROL 3 ML NEB INHALATION PRN ×2 (08:15→15:58)
[2019-01-12] MEDS: CLOPIDOGREL 75 MG TAB PO SCH (08:34)
[2019-01-12] MEDS: SENNOSIDES-DOCUSATE SODIUM 1 EACH TAB PO SCH ×2 (08:34→21:41)
[2019-01-12] MEDS: GABAPENTIN 100 MG CAP PO SCH ×2 (08:35→21:42)
[2019-01-12] MEDS: METOPROLOL TARTRATE 50 MG TAB PO SCH ×2 (08:36→21:40)
[2019-01-12] MEDS: AMIODARONE 200 MG TAB PO SCH (08:36)
[2019-01-12] MEDS: hydrALAZINE HCL 25 MG TAB PO SCH ×2 (08:36→21:40)
--- NOTE | 2019-01-12 09:14 | P.PN ---
Subjective Progress Note Date: 01/12/19 Seen and examined for the follow-up of acute kidney injury. Good urine output. 3 L in the last 24 hours. On 2 L oxygen via nasal cannula. No nausea vomiting diarrhea. Objective - Vital Signs Vital signs: Vital Signs Temp 98 F 01/12/19 08:00 Pulse 61 01/12/19 08:25 Resp 19 01/12/19 08:00 BP 138/65 01/12/19 08:00 Pulse Ox 95 01/12/19 08:00 Intake & Output 01/11/19 01/12/19 01/12/19 18:59 06:59 18:59 Intake Total 300 360 100 Output Total 1375 2060 100 Balance -1075 -1700 0 Weight 104.7 kg Intake: IV 300 120 100 0.9 kvo 120 Magnesium Sulfate-D5w Pmx 300 100 1 gm In Dextrose/Water 1 100ml.bag @ 100 mls/hr IVPB Q1H [facility] Rx#: [id number] Oral 240 Output: Urine 1375 2060 100 Other: Voiding Method Indwelling Catheter Indwelling Catheter Indwelling Catheter # Bowel Movements 1 - Exam No acute distress. S1-S2 heard Decreased breath sounds Abdomen soft distended Edema. - Labs CBC & Chem 7: 01/12/19 05:09 01/12/19 05:09 Labs: Abnormal Lab Results - Last 24 Hours (Table) 01/11/19 01/11/19 01/11/19 Range/Units 09:01 10:22 10:22 RBC 2.28 L (4.30-5.90) m/uL Hgb 7.0 L (13.0-17.5) gm/dL Hct 23.9 L (39.0-53.0) % MCV 105.0 H (80.0-100.0) fL MCHC 29.2 L (31.0-37.0) g/dL RDW 19.0 H (11.5-15.5) % Lymphocytes # 0.5 L (1.0-4.8) k/uL Macrocytosis Marked A Carbon Dioxide (22-30) mmol/L BUN 87 H (9-20) mg/dL Creatinine 2.40 H (0.66-1.25) mg/dL Glucose 112 H (74-99) mg/dL POC Glucose (mg/dL) 143 H (75-99) mg/dL Phosphorus (2.5-4.5) mg/dL Magnesium (1.6-2.3) mg/dL Procalcitonin (0.02-0.09) ng/mL 01/11/19 01/11/19 01/11/19 Range/Units 10:22 10:22 12:22 RBC (4.30-5.90) m/uL Hgb (13.0-17.5) gm/dL Hct (39.0-53.0) % MCV (80.0-100.0) fL MCHC (31.0-37.0) g/dL RDW (11.5-15.5) % Lymphocytes # (1.0-4.8) k/uL Macrocytosis Carbon Dioxide (22-30) mmol/L BUN (9-20) mg/dL Creatinine (0.66-1.25) mg/dL Glucose (74-99) mg/dL POC Glucose (mg/dL) 119 H (75-99) mg/dL Phosphorus (2.5-4.5) mg/dL Magnesium 1.4 L (1.6-2.3) mg/dL Procalcitonin 1.05 H (0.02-0.09) ng/mL 01/11/19 01/11/19 01/11/19 Range/Units 13:57 16:56 20:49 RBC (4.30-5.90) m/uL Hgb (13.0-17.5) gm/dL Hct (39.0-53.0) % MCV (80.0-100.0) fL MCHC (31.0-37.0) g/dL RDW (11.5-15.5) % Lymphocytes # (1.0-4.8) k/uL Macrocytosis Carbon Dioxide (22-30) mmol/L BUN (9-20) mg/dL Creatinine (0.66-1.25) mg/dL Glucose (74-99) mg/dL POC Glucose (mg/dL) 220 H 227 H 230 H (75-99) mg/dL Phosphorus (2.5-4.5) mg/dL Magnesium (1.6-2.3) mg/dL Procalcitonin (0.02-0.09) ng/mL 01/12/19 01/12/19 Range/Units 05:09 05:09 RBC 2.24 L (4.30-5.90) m/uL Hgb 7.1 L (13.0-17.5) gm/dL Hct 22.1 L (39.0-53.0) % MCV (80.0-100.0) fL MCHC (31.0-37.0) g/dL RDW 18.6 H (11.5-15.5) % Lymphocytes # 0.5 L (1.0-4.8) k/uL Macrocytosis Carbon Dioxide 33 H (22-30) mmol/L BUN 81 H (9-20) mg/dL Creatinine 2.13 H (0.66-1.25) mg/dL Glucose 71 L (74-99) mg/dL POC Glucose (mg/dL) (75-99) mg/dL Phosphorus 5.1 H (2.5-4.5) mg/dL Magnesium (1.6-2.3) mg/dL Procalcitonin (0.02-0.09) ng/mL Microbiology - Last 24 Hours (Table) 01/09/19 21:51 Blood Culture - Preliminary Blood No Growth after 48 hours Assessment and Plan Assessment: #1 nonoliguric acute kidney injury secondary to type I cardiorenal syndrome. Baseline creatinine 0.9 MG per DL. #2 status post mitral valve repair in October 2018. #3 diastolic CHF. #4 anemia #5 essential hypertension currently controlled. #6 electrolyte abnormality secondary to diabetic use #7 diabetes on insulin. #8 COPD on home oxygen Plan: #1 renal function improving. Continue with Lasix 40 mg IV 3 times a day. #2 replace electrolytes. #3 daily weights. Goal net negative balance of 2 L daily. #4 avoid nephrotoxic agents and hypotensive episodes.
--- NOTE | 2019-01-12 09:51 | P.PN ---
Subjective Progress Note Date: 01/12/19 On today's evaluation of 01/12/2019 I'm seeing the patient for a follow-up. He got transferred to the intensive care unit yesterday as the patient was found to be lethargic and somewhat confused. In the intensive care unit he was kept on IV Lasix 40 mg every 8 hours. He made excellent urine output and his net fluid balance is been negative more than 2.5 L over the past 24 hours. Chest x-ray shows improvement in the aeration. There is underlying cardiomegaly. Echocardiogram was repeated and it showed evidence of severe pulmonary hypertension. PA pressures were as high as 69. LV function showed an ejection fraction of 50-55%. RV was severely dilated. RA was mild a dilated. There was mild aortic regurgitation. Mild to moderate mitral regurgitation. Moderate mitral stenosis. Evidence of mitral valve repair. Peak and mean mitral valve gradients were 17 and 6 mmHg by Doppler. Severe pulmonary hypertension was noted. Inferior vena cava was mildly dilated. His proBNP was significantly elevated and he responded to diuretics. He was probably cardiorenal syndrome and his kidney function is also improving and the creatinine is down to 2.1. He remains lethargic. I don't think is confused. He is moving all 4 extremities without any limitation. His cardiac rhythm as sinus rhythm with a first-degree AV block. Objective - Vital Signs Vital signs: Vital Signs Temp 98 F 01/12/19 08:00 Pulse 61 01/12/19 08:25 Resp 19 01/12/19 08:00 BP 138/65 01/12/19 08:00 Pulse Ox 95 01/12/19 08:00 Intake & Output 01/11/19 01/12/19 01/12/19 18:59 06:59 18:59 Intake Total 300 360 100 Output Total 1375 2060 100 Balance -1075 -1700 0 Weight 104.7 kg Intake: IV 300 120 100 0.9 kvo 120 Magnesium Sulfate-D5w Pmx 300 100 1 gm In Dextrose/Water 1 100ml.bag @ 100 mls/hr IVPB Q1H [facility] Rx#: [id number] Oral 240 Output: Urine 1375 2060 100 Other: Voiding Method Indwelling Catheter Indwelling Catheter Indwelling Catheter # Bowel Movements 1 - Exam GENERAL EXAM: Alert, pleasant, 73-year-old white male, on 2 L of oxygen with a pulse ox of 96%, comfortable in no apparent distress. HEAD: Normocephalic/atraumatic. EYES: Normal reaction of pupils, equal size. Conjunctiva pink, sclera white. NOSE: Clear with pink turbinates. THROAT: No erythema or exudates. NECK: No masses, no JVD, no thyroid enlargement, no adenopathy. CHEST: No chest wall deformity. Symmetrical expansion. LUNGS: Equal air entry with diffuse crackles, but no wheeze, rhonchi or dullness. CVS: Regular rate and rhythm, normal S1 and S2, no gallops, no murmurs, no rubs ABDOMEN: Soft, nontender. No hepatosplenomegaly, normal bowel sounds, no guarding or rigidity. EXTREMITIES: No clubbing, bilateral lower extremity edema, and small healing blisters on his anterior shins, and his bilateral feet with no significant surrounding erythema or warmth, no cyanosis, 2+ pulses and upper and lower extremities. Both lower extremities are Zi wrapped MUSCULOSKELETAL: Muscle strength and tone normal. SPINE: No scoliosis or deformity SKIN: No rashes CENTRAL NERVOUS SYSTEM: Alert and oriented -3. No focal deficits, tone is normal in all 4 extremities. PSYCHIATRIC: Alert and oriented -3. Appropriate affect. Intact judgment and insight. - Labs CBC & Chem 7: 01/12/19 05:09 01/12/19 05:09 Labs: Abnormal Lab Results - Last 24 Hours (Table) 01/11/19 01/11/19 01/11/19 Range/Units 10:22 10:22 10:22 RBC 2.28 L (4.30-5.90) m/uL Hgb 7.0 L (13.0-17.5) gm/dL Hct 23.9 L (39.0-53.0) % MCV 105.0 H (80.0-100.0) fL MCHC 29.2 L (31.0-37.0) g/dL RDW 19.0 H (11.5-15.5) % Lymphocytes # 0.5 L (1.0-4.8) k/uL Macrocytosis Marked A Carbon Dioxide (22-30) mmol/L BUN 87 H (9-20) mg/dL Creatinine 2.40 H (0.66-1.25) mg/dL Glucose 112 H (74-99) mg/dL POC Glucose (mg/dL) (75-99) mg/dL Phosphorus (2.5-4.5) mg/dL Magnesium 1.4 L (1.6-2.3) mg/dL Procalcitonin (0.02-0.09) ng/mL 01/11/19 01/11/19 01/11/19 Range/Units 10:22 12:22 13:57 RBC (4.30-5.90) m/uL Hgb (13.0-17.5) gm/dL Hct (39.0-53.0) % MCV (80.0-100.0) fL MCHC (31.0-37.0) g/dL RDW (11.5-15.5) % Lymphocytes # (1.0-4.8) k/uL Macrocytosis Carbon Dioxide (22-30) mmol/L BUN (9-20) mg/dL Creatinine (0.66-1.25) mg/dL Glucose (74-99) mg/dL POC Glucose (mg/dL) 119 H 220 H (75-99) mg/dL Phosphorus (2.5-4.5) mg/dL Magnesium (1.6-2.3) mg/dL Procalcitonin 1.05 H (0.02-0.09) ng/mL 01/11/19 01/11/19 01/12/19 Range/Units 16:56 20:49 05:09 RBC 2.24 L (4.30-5.90) m/uL Hgb 7.1 L (13.0-17.5) gm/dL Hct 22.1 L (39.0-53.0) % MCV (80.0-100.0) fL MCHC (31.0-37.0) g/dL RDW 18.6 H (11.5-15.5) % Lymphocytes # 0.5 L (1.0-4.8) k/uL Macrocytosis Carbon Dioxide (22-30) mmol/L BUN (9-20) mg/dL Creatinine (0.66-1.25) mg/dL Glucose (74-99) mg/dL POC Glucose (mg/dL) 227 H 230 H (75-99) mg/dL Phosphorus (2.5-4.5) mg/dL Magnesium (1.6-2.3) mg/dL Procalcitonin (0.02-0.09) ng/mL 01/12/19 Range/Units 05:09 RBC (4.30-5.90) m/uL Hgb (13.0-17.5) gm/dL Hct (39.0-53.0) % MCV (80.0-100.0) fL MCHC (31.0-37.0) g/dL RDW (11.5-15.5) % Lymphocytes # (1.0-4.8) k/uL Macrocytosis Carbon Dioxide 33 H (22-30) mmol/L BUN 81 H (9-20) mg/dL Creatinine 2.13 H (0.66-1.25) mg/dL Glucose 71 L (74-99) mg/dL POC Glucose (mg/dL) (75-99) mg/dL Phosphorus 5.1 H (2.5-4.5) mg/dL Magnesium (1.6-2.3) mg/dL Procalcitonin (0.02-0.09) ng/mL Microbiology - Last 24 Hours (Table) 01/09/19 21:51 Blood Culture - Preliminary Blood No Growth after 48 hours Assessment and Plan Plan: #1. Lethargy and weakness likely related to acute exacerbation of systolic congestive heart failure on no focal neurological deficit. Unlikely to be in the metabolic encephalopathy. He is awake and alert and is following commands on today's evaluation. #2. Acute exacerbation of systolic congestive heart failure, doubt possibility of pneumonia, chest x-ray showed pulmonary edema, proBNP was elevated at 16,800, no leukocytosis, no fever or chills, the echocardiogram showed evidence of se sal pulmonary hypertension and moderate mitral stenosis and mild regurgitation of the mitral valve post repair. RV was dilated. This is secondary pulmonary hypertension secondary to his valvular heart disease. I still that the patient has ongoing valvular heart disease contributing to his pulmonary hypertension and heart failure. He responded nicely to diuretics. #3. Recent complex mitral valve repair in October 2018 for history of severe eccentric mitral valve regurgitation with severely calcified mitral valve annulus #4. Valvular heart disease, please refer to the most recent echocardiogram #5. Acute kidney injury, related to cardiorenal factors, improving creatinine and patient's producing excellent urine output. #6. Bilateral lower extremity cellulitis, and patient was recently hospitalized treated with IV antibiotics, and his lower extremities are improving, less swollen, and there is no redness or warmth, and the lack cellulitis in the 17 recovered #7. Severe chronic congestive heart failure with diastolic dysfunction, and his echocardiogram showed EF of 50-55% #8. 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 Obstructive sleep apnea not on home CPAP #10. Coronary artery disease with recent placement of a drug-eluting stent to the LAD in September 2018 #11. Hypertension #12. Hyperlipidemia #13. Diabetes mellitus type 2 with peripheral neuropathy #14. Previous history of smoking MARVIN Continued IV Lasix. Monitor urine output. Monitor creatinine. Chest x-ray is improving. His currently on oxygen at 2 L. Monitor fever pattern. We'll continue to follow. I'm going to discuss with cardiology the possibility of undergoing a FAUSTINO to evaluate his cardiac status. His presentation is typical of CHF and cardiorenal factors contributing to his acute kidney injury. Antidepressants have been started. He is currently on Lexapro. We'll continue to follow.
[2019-01-12 12:06] LABS: Glucose,Whole Blood 217 mg/dL (75-99)
--- NOTE | 2019-01-12 13:42 | P.PN ---
Subjective Progress Note Date: 01/12/19 Principal diagnosis: Acute exacerbation systolic CHF Acute renal injury possibly cardiorenal Bilateral lower extremity cellulitis Encephalopathy 73-year-old white male patient of Dr. Patel, with recent history of mitral valve repair for history of severe mitral valve regurgitation with severely calcified mitral valve annulus, status post complex mitral valve repair on 10/31/2018. Other medical history includes coronary artery disease with recent drug-eluting stent placement in the LAD in September 2018, chronic diastolic heart failure, hypertension, hyperlipidemia, type 2 diabetes mellitus with peripheral neuropathy, chronic kidney disease, moderately severe COPD, obstructive sleep apnea without home CPAP use, hypertension, obesity, previous tobacco dependence and paroxysmal atrial fibrillation. Following his surgery patient went to subacute rehab at [facility] for further rehabilitation related to significant weakness, and prolonged recovery postoperative mitral valve repair. Patient also had recent hospitalization in November for bilateral lower extremity cellulitis. Patient was treated with Zosyn and vancomycin, the swelling and the blistering have improved. 01/11/2019 Patient is seen and evaluated in room at bedside; patient complaints of difficulty sleeping; no other complaints; per nursing staff patient has been complaining of hallucinating during the night; no such complaints anymore Vital signs are reviewed and remained stable with a temperature of 97.5, pulse 62, respiration 18 and blood pressure 120/61 and SpO2 of 97% on 2 L Laboratory review shows a white blood count of 7.4, hemoglobin 7 and platelet count of [birth year]14/1989; sodium 139 and potassium of 4.6; BUN/creatinine has been slowly trending down from 2.7 yesterday down to 2.4; magnesium of 1.4; patient is started on electrolyte protocol; patient remains on IV diuretics per cardiology for acute exacerbation CHF and hydralazine is admitted; pulmonary service recommending to stop antibiotics for pneumonia; ID to see patient for trace of antibiotics for cellulitis 01/12/2019 Patient transferred to ICU yesterday- found to be lethargic and somewhat confused; patient's is awake alert and oriented this morning. Patient remains on IV Lasix 40 mg every 8 hours. He made excellent urine output and his net fluid balance is been negative more than 2.5 L over the past 24 hours. Chest x-ray shows improvement in the aeration. There is underlying cardiomegaly. Echocardiogram was repeated and it showed evidence of severe pulmonary hypertension. PA pressures were as high as 69. LV function showed an ejection fraction of 50-55%. RV was severely dilated. RA was mild a dilated. There was mild aortic regurgitation. Mild to moderate mitral regurgitation. Moderate mitral stenosis. Evidence of mitral valve repair. Peak and mean mitral valve gradients were 17 and 6 mmHg by Doppler. Severe pulmonary hypertension was noted. Inferior vena cava was mildly dilated. His proBNP was significantly elevated and he responded to diuretics. He was probably cardiorenal syndrome and his kidney function is also improving and the creatinine is down to 2.1. Objective - Vital Signs Vital signs: Vital Signs Temp 98 F 01/12/19 08:00 Pulse 64 01/12/19 10:00 Resp 17 01/12/19 10:00 BP 128/65 01/12/19 10:00 Pulse Ox 94 L 01/12/19 10:00 Intake & Output 01/11/19 01/12/19 01/12/19 18:59 06:59 18:59 Intake Total 300 360 600 Output Total 1375 2060 375 Balance -1075 -1700 225 Weight 104.7 kg Intake: IV 300 120 100 0.9 kvo 120 Magnesium Sulfate-D5w Pmx 300 100 1 gm In Dextrose/Water 1 100ml.bag @ 100 mls/hr IVPB Q1H [facility] Rx#: [id number] Oral 240 500 Output: Urine 1375 2060 375 Other: Voiding Method Indwelling Catheter Indwelling Catheter Indwelling Catheter # Bowel Movements 1 - Exam HEAD: Normocephalic/atraumatic. EYES: Normal reaction of pupils, equal size. Conjunctiva pink, sclera white. NOSE: Clear with pink turbinates. THROAT: No erythema or exudates. NECK: No masses, no JVD, no thyroid enlargement, no adenopathy. CHEST: No chest wall deformity. Symmetrical expansion. LUNGS: Equal air entry with diffuse crackles, but no wheeze, rhonchi or dullness. CVS: Regular rate and rhythm, normal S1 and S2, no gallops, no murmurs, no rubs ABDOMEN: Soft, nontender. No hepatosplenomegaly, normal bowel sounds, no guarding or rigidity. EXTREMITIES: No clubbing, bilateral lower extremity edema, and small healing blisters on his anterior shins, and his bilateral feet with no significant surrounding erythema or warmth, no cyanosis, 2+ pulses and upper and lower extremities. Both lower extremities are Zi wrapped - Labs CBC & Chem 7: 01/12/19 05:09 01/12/19 05:09 Labs: Abnormal Lab Results - Last 24 Hours (Table) 01/11/19 01/11/19 01/11/19 Range/Units 10:22 10:22 10:22 RBC 2.28 L (4.30-5.90) m/uL Hgb 7.0 L (13.0-17.5) gm/dL Hct 23.9 L (39.0-53.0) % MCV 105.0 H (80.0-100.0) fL MCHC 29.2 L (31.0-37.0) g/dL RDW 19.0 H (11.5-15.5) % Lymphocytes # 0.5 L (1.0-4.8) k/uL Macrocytosis Marked A Carbon Dioxide (22-30) mmol/L BUN 87 H (9-20) mg/dL Creatinine 2.40 H (0.66-1.25) mg/dL Glucose 112 H (74-99) mg/dL POC Glucose (mg/dL) (75-99) mg/dL Phosphorus (2.5-4.5) mg/dL Magnesium 1.4 L (1.6-2.3) mg/dL Procalcitonin (0.02-0.09) ng/mL 01/11/19 01/11/19 01/11/19 Range/Units 10:22 12:22 13:57 RBC (4.30-5.90) m/uL Hgb (13.0-17.5) gm/dL Hct (39.0-53.0) % MCV (80.0-100.0) fL MCHC (31.0-37.0) g/dL RDW (11.5-15.5) % Lymphocytes # (1.0-4.8) k/uL Macrocytosis Carbon Dioxide (22-30) mmol/L BUN (9-20) mg/dL Creatinine (0.66-1.25) mg/dL Glucose (74-99) mg/dL POC Glucose (mg/dL) 119 H 220 H (75-99) mg/dL Phosphorus (2.5-4.5) mg/dL Magnesium (1.6-2.3) mg/dL Procalcitonin 1.05 H (0.02-0.09) ng/mL 01/11/19 01/11/19 01/12/19 Range/Units 16:56 20:49 05:09 RBC 2.24 L (4.30-5.90) m/uL Hgb 7.1 L (13.0-17.5) gm/dL Hct 22.1 L (39.0-53.0) % MCV (80.0-100.0) fL MCHC (31.0-37.0) g/dL RDW 18.6 H (11.5-15.5) % Lymphocytes # 0.5 L (1.0-4.8) k/uL Macrocytosis Carbon Dioxide (22-30) mmol/L BUN (9-20) mg/dL Creatinine (0.66-1.25) mg/dL Glucose (74-99) mg/dL POC Glucose (mg/dL) 227 H 230 H (75-99) mg/dL Phosphorus (2.5-4.5) mg/dL Magnesium (1.6-2.3) mg/dL Procalcitonin (0.02-0.09) ng/mL 01/12/19 Range/Units 05:09 RBC (4.30-5.90) m/uL Hgb (13.0-17.5) gm/dL Hct (39.0-53.0) % MCV (80.0-100.0) fL MCHC (31.0-37.0) g/dL RDW (11.5-15.5) % Lymphocytes # (1.0-4.8) k/uL Macrocytosis Carbon Dioxide 33 H (22-30) mmol/L BUN 81 H (9-20) mg/dL Creatinine 2.13 H (0.66-1.25) mg/dL Glucose 71 L (74-99) mg/dL POC Glucose (mg/dL) (75-99) mg/dL Phosphorus 5.1 H (2.5-4.5) mg/dL Magnesium (1.6-2.3) mg/dL Procalcitonin (0.02-0.09) ng/mL Microbiology - Last 24 Hours (Table) 01/09/19 21:51 Blood Culture - Preliminary Blood No Growth after 48 hours Assessment and Plan Assessment: Generalized weakness, lethargy and altered mental status likely due to metabolic encephalopathy. Improving now Acute on chronic kidney disease stage III. Baseline creatinine around 1.1. Creatinine 2.86 on admission Acute on chronic CHF with diastolic dysfunction. gentle diuresis. Mild hyperkalemia due to acute kidney injury and also potassium supplementation at home Recent history of bilateral lower extremities cellulitis Status post antibiotic course at rehab Chronic Anemia/anemia of chronic disease Possible right lower lobe pneumonia. Low suspicion. Patient does have T-max 100.9 and no leukocytosis. Currently patient is afebrile. Severe mitral regurgitation with severely calcified mitral annulus. 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 Patient was continued on gentle hydration. Repeat CBC and BMP was ordered. Continue the home medications and avoid hypotension. Avoid nephrotoxic medications. Nephrology service will be consulted. ID is on board. Follow-up renal function and potassium level. PTOT will be consulted. Prognosis is guarded with multiple medical problems and comorbid conditions. Time with Patient: Greater than 30
--- NOTE | 2019-01-12 16:26 | P.PN ---
Subjective This is Natalie Cummings PA-C dictating a progress note on this patient The patient was interviewed and examined by me as well as by Dr. Deng Case discussed with Dr. Deng and he agrees with the plan of care IMPRESSION / ASSESSMENT: Acute on chronic combined systolic and diastolic heart failure, most recent echo showing EF 50-55% History of valvular heart disease status post mitral valve replacement, echocardiogram showing mild to moderate MR and moderate MS following mitral valve repair CAD status post recent stent placement MIGUEL ANGEL on CKD, creatinine improving, nephrology following COPD Anemia Severe pulmonary hypertension Hypertension Dyslipidemia Diabetes Former smoker PLAN: Continue IV Lasix per nephrology Decrease amiodarone and consider stopping it completely, we will discuss with CT surgery team consider right heart cath to assess PA pressures after adequate diuresis and he is able to lie supine HPI/interval history Patient is a 73-year-old male with a past medical history significant for CAD status post stenting, COPD, chronic diastolic heart failure, mitral valve disease status post mitral valve repair, COPD, HENRY, diabetes and CKD who presented with complaints of shortness of breath. He was admitted for treatment of CHF exacerbation and was started on IV Lasix. Yesterday he had to be transferred to the ICU secondary to confusion and lethargy. Echocardiogram shows EF low normal, 50-55%, mild to moderate MR, moderate MS, severe pulmonary hypertension RVSP 69.54. Patient has been diuresing well. Patient seen and examined sitting up in bed. States he is still short of breath. Denies any chest pain or dizziness. EXAMINATION Temperature 90.8F, pulse 60, respirations 19, blood pressure 138/65, oxygen saturation 95% on 2 L nasal cannula Patient seen and examined sitting up in bed, tachypnic, in no acute distress Lungs diminished with diffuse crackles Heart is regular, systolic murmur audible No elevated JVD appreciated Lower extremities are wrapped with a dressing and Zi wrap, Trace lower ext remity edema REVIEW OF LABS, ECG WBC 6.6, hemoglobin 7.1, platelets 221, potassium 4.7, BUN 81, creatinine 2.13, magnesium 1.9 Objective - Vital Signs Vital signs: Vital Signs Temp 98.1 F 01/12/19 12:00 Pulse 62 01/12/19 15:00 Resp 23 01/12/19 15:00 BP 134/63 01/12/19 15:00 Pulse Ox 95 01/12/19 15:00 Intake & Output 01/11/19 01/12/19 01/12/19 18:59 06:59 18:59 Intake Total 300 360 600 Output Total 1375 0 1125 Balance -1075 -1700 -525 Weight 104.7 kg Intake: IV 300 120 100 0.9 kvo 120 Magnesium Sulfate-D5w Pmx 300 100 1 gm In Dextrose/Water 1 100ml.bag @ 100 mls/hr IVPB Q1H [facility] Rx#: [id number] Oral 240 500 Output: Urine 1375 0 1125 Other: Voiding Method Indwelling Catheter Indwelling Catheter Indwelling Catheter # Bowel Movements 1 - Labs CBC & Chem 7: 01/12/19 05:09 01/12/19 05:09 Labs: Abnormal Lab Results - Last 24 Hours (Table) 01/11/19 01/11/19 01/11/19 Range/Units 10: 16:56 20:49 RBC (4.30-5.90) m/uL Hgb (13.0-17.5) gm/dL Hct (39.0-53.0) % RDW (11.5-15.5) % Lymphocytes # (1.0-4.8) k/uL Carbon Dioxide (22-30) mmol/L BUN (9-20) mg/dL Creatinine (0.66-1.25) mg/dL Glucose (74-99) mg/dL POC Glucose (mg/dL) 227 H 230 H (75-99) mg/dL Phosphorus (2.5-4.5) mg/dL Procalcitonin 1.05 H (0.02-0.09) ng/mL 01/12/19 01/12/19 01/12/19 Range/Units 05:09 05:09 12:04 RBC 2.24 L (4.30-5.90) m/uL Hgb 7.1 L (13.0-17.5) gm/dL Hct 22.1 L (39.0-53.0) % RDW 18.6 H (11.5-15.5) % Lymphocytes # 0.5 L (1.0-4.8) k/uL Carbon Dioxide 33 H (22-30) mmol/L BUN 81 H (9-20) mg/dL Creatinine 2.13 H (0.66-1.25) mg/dL Glucose 71 L (74-99) mg/dL POC Glucose (mg/dL) 217 H (75-99) mg/dL Phosphorus 5.1 H (2.5-4.5) mg/dL Procalcitonin (0.02-0.09) ng/mL Microbiology - Last 24 Hours (Table) 01/09/19 21:51 Blood Culture - Preliminary Blood No Growth after 48 hours
[2019-01-12 18:05] LABS: Glucose,Whole Blood 221 mg/dL (75-99)
[2019-01-12] MEDS: CHOLECALCIFEROL 1,000 UNIT TAB PO SCH (18:09)
[2019-01-12] MEDS: MULTIVITAMINS, THERA 1 EACH TAB PO SCH (18:10)
[2019-01-12] MEDS: ASPIRIN 81 MG PO SCH (18:10)
[2019-01-12] MEDS: LACTOBACILLUS ACIDOPH & BULGAR 1 EACH PACKET PO SCH (18:11)
[2019-01-12] MEDS: ZINC SULFATE 220 MG CAP PO SCH (18:11)
[2019-01-12 21:26] LABS: Glucose,Whole Blood 239 mg/dL (75-99)
[2019-01-12] MEDS: INSULIN DETEMIR (LEVEMIR) 100 UNIT/ML SYR SQ SCH (21:33)
[2019-01-12] MEDS: TAMSULOSIN 0.4 MG CAP.ER.24H PO SCH (21:40)
[2019-01-12] MEDS: ATORVASTATIN 40 MG TAB PO SCH (21:41)
--- NOTE | 2019-01-12 22:54 | P.PN ---
Subjective Progress Note Date: 01/12/19 This is a 73-year-old male well-known to ID service as he was recently seen following his extensive mitral valve repair for his mitral stenosis and also repair of ruptured chordae tendon a. Prior to the finding of severe mitral stenosis he did have coronary disease and a percutaneous intervention occurred with stenting of a drug-eluting type. Afterward the open heart procedure occurred. Due to his weakness has been recovering at the extended care facility. Patient was discharged from [facility] on Monday and is currently living at home with his . Patient has developed increasing fatigue along with shortness of breath increased somnolence decreased appetite. Temperature max 100.9, initial white count 11.4 with repeated 8.4. Lactic acid 1.2 Patient presented with acute kidney injury from [facility] with BUN of 91 and creatinine 2.86, potassium 5.4. ProBNP 16,800, urinalysis cloudy with nitrate and leukoesterase negative. Influenza testing negative. Blood culture currently showing no g rowth at 24 hours. Chest x-ray confirmed a heart failure. According to his nurse, he has had more confusion this morning but did not sleep last night. He is followed by nephrology for acute kidney injury and [facility] and in [facility] for acute systolic heart failure. He is currently on IV Lasix 40 mg every 8 hours. He states his lower extremity edema is improved but note patient continues to have edema. He states he was urinating every hour during the night. Patient knowledge is that he hasn't some confusion and possible hallucinations during the night as well. There is a consult in place for cardiology regarding mitral valve repair and heart failure. 01/12/2019 the patient has had significant improvement. He has had distinct urinary output now with greater than 2 L negative balance today. This allowed him to be less short of breath, he is much less confused and not hallucinating today. Other than being weak he relates he feels better and has eaten somewhat better today. Objective - Vital Signs Vital signs: Vital Signs Temp 98.2 F 01/12/19 21:00 Pulse 67 01/12/19 22:00 Resp 17 01/12/19 22:00 BP 149/74 01/12/19 22:00 Pulse Ox 97 01/12/19 22:00 Intake & Output 01/12/19 01/12/19 01/13/19 06:59 18:59 06:59 Intake Total 360 710 240 Output Total 0 1575 575 Balance -1700 -865 -310 Weight 104.7 kg Intake: IV 120 210 40 0.9 kvo 120 110 40 Magnesium Sulfate-D5w Pmx 100 1 gm In Dextrose/Water 1 100ml.bag @ 100 mls/hr IVPB Q1H [facility] Rx#: [id number] Oral 240 500 200 Output: Urine 2059 1575 575 Other: Voiding Method Indwelling Catheter Indwelling Catheter Indwelling Catheter - Exam HEENT: Anicteric conjunctiva are pink and moist nasal mucosa grossly intact and dry without significant lesions, there is no thrush. Poor dentition Neck: The neck is supple without significant lymphadenopathy or thyromegaly. Lungs: Bibasilar crackles are heard. No wheezing. No intercostal retractions. Heart: Irregular audible S1 and S2 2/6 systolic murmur left sternal border PMI nondisplaced Abdomen: Positive bowel sounds soft and nontender without palpable masses or organomegaly. There was no guarding or rebound. Extremities: The upper extremities have excellent pulses they are symmetric, no significant petechiae or telangiectasia. No splinter hemorrhages were noted. The lower extremities are wrapped with a large dressing,Kerlix and Zi wraps with reported evidence of blistering to the left leg, bilateral erythema. Neuro: Awake alert oriented to person place and time. With 2 nurse assistance he was able to stand and sit into the recliner chair - Labs CBC & Chem 7: 01/12/19 05:09 01/12/19 05:09 Labs: Abnormal Lab Results - Last 24 Hours (Table) 01/12/19 01/12/19 01/12/19 Range/Units 05:09 05:09 12:04 RBC 2.24 L (4.30-5.90) m/uL Hgb 7.1 L (13.0-17.5) gm/dL Hct 22.1 L (39.0-53.0) % RDW 18.6 H (11.5-15.5) % Lymphocytes # 0.5 L (1.0-4.8) k/uL Carbon Dioxide 33 H (22-30) mmol/L BUN 81 H (9-20) mg/dL Creatinine 2.13 H (0.66-1.25) mg/dL Glucose 71 L (74-99) mg/dL POC Glucose (mg/dL) 217 H (75-99) mg/dL Phosphorus 5.1 H (2.5-4.5) mg/dL 01/12/19 01/12/19 Range/Units 18:04 21:25 RBC (4.30-5.90) m/uL Hgb (13.0-17.5) gm/dL Hct (39.0-53.0) % RDW (11.5-15.5) % Lymphocytes # (1.0-4.8) k/uL Carbon Dioxide (22-30) mmol/L BUN (9-20) mg/dL Creatinine (0.66-1.25) mg/dL Glucose (74-99) mg/dL POC Glucose (mg/dL) 221 H 239 H (75-99) mg/dL Phosphorus (2.5-4.5) mg/dL Microbiology - Last 24 Hours (Table) 01/09/19 21:51 Blood Culture - Preliminary Blood No Growth after 48 hours Laboratory Results WBC 6.6 k/uL (3.8-10.6) 01/12/19 05:09 RBC 2.24 m/uL (4.30-5.90) L 01/12/19 05:09 Hgb 7.1 gm/dL (13.0-17.5) L 01/12/19 05:09 Hct 22.1 % (39.0-53.0) L 01/12/19 05:09 MCV 98.6 fL (80.0-100.0) D 01/12/19 05:09 MCH 31.5 pg (25.0-35.0) 01/12/19 05:09 MCHC 31.9 g/dL (31.0-37.0) 01/12/19 05:09 RDW 18.6 % (11.5-15.5) H 01/12/19 05:09 Plt Count 220 k/uL (150-450) 01/12/19 05:09 Neutrophils % 76 % 01/12/19 05:09 Lymphocytes % 8 % 01/12/19 05:09 Monocytes % 5 % 01/12/19 05:09 Eosinophils % 9 % 01/12/19 05:09 Basophils % 1 % 01/12/19 05:09 Neutrophils # 5.0 k/uL (1.3-7.7) 01/12/19 05:09 Lymphocytes # 0.5 k/uL (1.0-4.8) L 01/12/19 05:09 Monocytes # 0.4 k/uL (0-1.0) 01/12/19 05:09 Eosinophils # 0.6 k/uL (0-0.7) 01/12/19 05:09 Basophils # 0.1 k/uL (0-0.2) 01/12/19 05:09 Hypochromasia Moderate 01/12/19 05:09 Anisocytosis Slight 01/12/19 05:09 Macrocytosis Slight 01/12/19 05:09 PT 12.2 sec (9.0-12.0) H 01/09/19 21:51 INR 1.2 (<1.2) H 01/09/19 21:51 APTT 24.5 sec (22.0-30.0) 01/09/19 21:51 Sodium 140 mmol/L (137-145) 01/12/19 05:09 Potassium 4.7 mmol/L (3.5-5.1) 01/12/19 05:09 Chloride 101 mmol/L (98-107) 01/12/19 05:09 Carbon Dioxide 33 mmol/L (22-30) H 01/12/19 05:09 Anion Gap 6 mmol/L 01/12/19 05:09 BUN 81 mg/dL (9-20) H 01/12/19 05:09 Creatinine 2.13 mg/dL (0.66-1.25) H 01/12/19 05:09 Est GFR (CKD-EPI)AfAm 34 (>60 ml/min/1.73 sqM) 01/12/19 05:09 Est GFR (CKD-EPI)NonAf 30 (>60 ml/min/1.73 sqM) 01/12/19 05:09 Glucose 71 mg/dL (74-99) L 01/12/19 05:09 POC Glucose (mg/dL) 239 mg/dL (75-99) H 01/12/19 21:25 POC Glu Electrical Contacts Adjuster ID Ej Krishnamurthya 01/12/19 21:25 Plasma Lactic Acid Guy 1.2 mmol/L (0.7-2.0) 01/09/19 22:54 Calcium 8.9 mg/dL (8.4-10.2) 01/12/19 05:09 Phosphorus 5.1 mg/dL (2.5-4.5) H 01/12/19 05:09 Magnesium 1.9 mg/dL (1.6-2.3) 01/12/19 05:09 Total Bilirubin 0.7 mg/dL (0.2-1.3) 01/09/19 21:51 AST 39 U/L (17-59) 01/09/19 21:51 ALT 28 U/L (21-72) 01/09/19 21:51 Alkaline Phosphatase 132 U/L (38-126) H 01/09/19 21:51 NT-Pro-B Natriuret Pep 97634 pg/mL 01/10/19 10:15 Total Protein 7.2 g/dL (6.3-8.2) 01/09/19 21:51 Albumin 3.6 g/dL (3.5-5.0) 01/09/19 21:51 Procalcitonin 1.05 ng/mL (0.02-0.09) H 01/11/19 10:22 Urine Color Yellow 01/10/19 03:24 Urine Appearance Cloudy (Clear) 01/10/19 03:24 Urine pH 5.0 (5.0-8.0) 01/10/19 03:24 Ur Specific [place] 1.014 (1.001-1.035) 01/10/19 03:24 Urine Protein 1+ (Negative) H 01/10/19 03:24 Urine Glucose (UA) Negative (Negative) 01/10/19 03:24 Urine Ketones Negative (Negative) 01/10/19 03:24 Urine Blood Moderate (Negative) H 01/10/19 03:24 Urine Nitrite Negative (Negative) 01/10/19 03:24 Urine Bilirubin Negative (Negative) 01/10/19 03:24 Urine Urobilinogen <2.0 mg/dL (<2.0) 01/10/19 03:24 Ur Leukocyte Esterase Negative (Negative) 01/10/19 03:24 Urine RBC 5 /hpf (0-5) 01/10/19 03:24 Urine WBC <1 /hpf (0-5) 01/10/19 03:24 Ur Squamous Epith Cells 1 /hpf (0-4) 01/10/19 03:24 Amorphous Sediment Rare /hpf (None) H 01/10/19 03:24 Hyaline Casts 2 /lpf (0-2) 01/10/19 03:24 Urine Mucus Rare /hpf (None) H 01/10/19 03:24 Urine Eosinophils 0 % 01/11/19 09:35 Stool Occult Blood Negative (Negative) 01/11/19 10:00 Influenza Type A RNA Not Detected (Not Detectd) 01/09/19 21:40 Influenza Type B (PCR) Not Detected (Not Detectd) 01/09/19 21:40 Microbiology 01/09/19 21:51 Blood Blood Culture - Preliminary No Growth after 48 hours Assessment and Plan (1) Acute renal failure (ARF) Current Visit: Yes Status: Acute Code(s): N17.9 - ACUTE KIDNEY FAILURE, UNSPECIFIED SNOMED Code(s): 88006189 (2) Bilateral lower leg cellulitis Narrative/Plan: The patient was home from the extended care facility for relatively short period time before he had increasing illness with altered mental status increasing weakness and consequently EMS was called and the patient was brought back to [facility]. He was found evidence of acute renal failure, metabolic encephalopathy worsening congestive heart failure. The patient does have a history of the recent surgical intervention to repair his mitral valve. The case is discussed with 100 critical-care and we will ask cardiology if the FAUSTINO can be performed to further evaluate his cardiac function. His significant and worsening status is concerning. The renal failure appears to be part of a cardiorenal syndrome and maneuvers to improve his cardiac function will certainly be helpful. He is getting diuresed and watch carefully and then again he has acute renal failure. He doesn't have significant lactic acidosis and BNP was markedly elevated despite the acute renal failure. At this time no positive cultures are noted. Admission was concerns to pneumonia because of the changes on the chest x-ray and was given a dose of Levaquin. The patient's chronic bilateral lower from a ulcerations are looking well and do not appear to be grossly infected. The edema is under good control. The large open ulcerations almost completely heal ed. Local care with Silvadene wrap will continue. 01/12/2019 the patient is showing some improvement today. Strength has increased such that he was able to two-person assist to get up and get the c hair. His legs have improved. His breathing is to fully improve with the negative fluid balance. His mentation is also improved. Continue local wound care to the lower extremities no evidence of pneumonia or active infection to the legs today. Please continue use of barrier cream to the buttocks Current Visit: No Status: Acute Code(s): L03.116 - CELLULITIS OF LEFT LOWER LIMB; L03.115 - CELLULITIS OF RIGHT LOWER LIMB SNOMED Code(s): 090734894 (3) CAD (coronary artery disease) Current Visit: No Status: Acute Code(s): I25.10 - ATHSCL HEART DISEASE OF [place] CORONARY ARTERY W/O ANG PCTRS SNOMED Code(s): 23336991
[2019-01-13] MEDS: FUROSEMIDE 10 MG/ML 4 ML VIAL IV SCH ×4 (00:10→23:07)
[2019-01-13] MEDS: HEPARIN SODIUM,PORCINE 5,000 UNIT/ML 1 ML VIAL SQ SCH ×4 (00:10→23:07)
[2019-01-13 05:09] LABS: Anisocytosis Slight; HCT 23.1 % (39.0-53.0); HGB 7.1 gm/dL (13.0-17.5); Hypochromasia Marked; MCH 31.2 pg (25.0-35.0); MCHC 30.6 g/dL (31.0-37.0); MCV 101.9 fL (80.0-100.0); Macrocytosis Moderate; Mean Platelet Volume 6.6; Platelet Count 215 k/uL (150-450); RBC 2.26 m/uL (4.30-5.90); RDW 18.7 % (11.5-15.5); WBC 5.7 k/uL (3.8-10.6)
[2019-01-13 05:19] LABS: Calcium 8.6 mg/dL (8.4-10.2); Magnesium 1.9 mg/dL (1.6-2.3); Potassium 3.9 mmol/L (3.5-5.1)
--- NOTE | 2019-01-13 06:14 | XR ---
EXAMINATION TYPE: XR chest 1V DATE OF EXAM: 01/13/2019 HISTORY: Shortness of Breath. REFERENCE: Previous study dated 01/12/2019. FINDINGS: There has been a midline sternotomy. The heart is enlarged. There is mild vascular congestion and pulmonary edema. There continues to be s ome confluent opacity at the lung bases. There are small, bilateral effusions. IMPRESSION: WORSENING CHANGES OF CONGESTIVE HEART FAILURE.
[2019-01-13] MEDS: MAGNESIUM SULFATE-D5W PMX 1 GM in DEXTROSE/WATER 1 100ML.BAG IVPB SCH ×2 (06:42→09:01)
[2019-01-13 06:55] LABS: Glucose,Whole Blood 104 mg/dL (75-99)
[2019-01-13] MEDS: PANTOPRAZOLE 40 MG TABLET PO SCH (06:56)
[2019-01-13] MEDS: ACETAMINOPHEN TAB 325 MG TAB PO PRN ×3 (06:58→23:07)
[2019-01-13 07:10] LABS: Band Neutrophils % 2 %; Lymphocytes # (M) 0.34 k/uL (1.0-4.8); Neutrophils % (M) 71 %; Nucleated Red Blood Cells 0 /100 WBC (0-0); Total Cells Counted 100
[2019-01-13 07:11] LABS: Polychromasia Present
[2019-01-13 07:12] LABS: Poikilocytosis (M) Present
[2019-01-13] MEDS: INSULIN ASPART (NovoLOG) 100 UNIT/ML VIAL SQ SCH ×4 (07:53→20:19)
[2019-01-13] MEDS: GABAPENTIN 100 MG CAP PO SCH ×2 (09:02→20:18)
[2019-01-13] MEDS: METOPROLOL TARTRATE 50 MG TAB PO SCH ×2 (09:02→20:18)
[2019-01-13] MEDS: SENNOSIDES-DOCUSATE SODIUM 1 EACH TAB PO SCH ×2 (09:02→20:18)
[2019-01-13] MEDS: hydrALAZINE HCL 25 MG TAB PO SCH ×2 (09:02→20:18)
[2019-01-13] MEDS: CLOPIDOGREL 75 MG TAB PO SCH (09:02)
[2019-01-13] MEDS: AMIODARONE 100 MG TAB PO SCH (09:03)
--- NOTE | 2019-01-13 10:03 | P.PN ---
Subjective Progress Note Date: 01/13/19 Seen and examined for the follow-up of acute kidney injury. Good urine output. No nausea vomiting or diarrhea. Objective - Vital Signs Vital signs: Vital Signs Temp 98 F 01/13/19 04:00 Pulse 60 01/13/19 07:00 Resp 15 01/13/19 07:00 BP 124/60 01/13/19 07:00 Pulse Ox 97 01/13/19 07:00 Intake & Output 01/12/19 01/13/19 01/13/19 18:59 06:59 18:59 Intake Total 710 320 10 Output Total 1575 1500 150 Balance -865 -1180 -140 Weight 105.7 kg Intake: IV 210 120 10 0.9 kvo 110 120 10 Magnesium Sulfate-D5w Pmx 100 1 gm In Dextrose/Water 1 100ml.bag @ 100 mls/hr IVPB Q1H [facility] Rx#: [id number] Oral 500 200 Output: Urine 1575 1500 150 Other: Voiding Method Indwelling Catheter Indwelling Catheter # Bowel Movements 1 - Exam No acute distress. S1-S2 heard Decreased breath sounds Abdomen soft distended Edema. - Labs CBC & Chem 7: 01/13/19 04:53 01/13/19 04:59 Labs: Abnormal Lab Results - Last 24 Hours (Table) 01/12/19 01/12/19 01/12/19 Range/Units 12:04 18:04 21:25 RBC (4.30-5.90) m/uL Hgb (13.0-17.5) gm/dL Hct (39.0-53.0) % MCV (80.0-100.0) fL MCHC (31.0-37.0) g/dL RDW (11.5-15.5) % Lymphocytes # (Manual) (1.0-4.8) k/uL Eosinophils # (Manual) (0-0.7) k/uL Carbon Dioxide (22-30) mmol/L BUN (9-20) mg/dL Creatinine (0.66-1.25) mg/dL Glucose (74-99) mg/dL POC Glucose (mg/dL) 217 H 221 H 239 H (75-99) mg/dL 01/13/19 01/13/19 01/13/19 Range/Units 04:53 04:59 06:54 RBC 2.26 L (4.30-5.90) m/uL Hgb 7.1 L (13.0-17.5) gm/dL Hct 23.1 L (39.0-53.0) % MCV 101.9 H (80.0-100.0) fL MCHC 30.6 L (31.0-37.0) g/dL RDW 18.7 H (11.5-15.5) % Lymphocytes # (Manual) 0.34 L (1.0-4.8) k/uL Eosinophils # (Manual) 0.80 H (0-0.7) k/uL Carbon Dioxide 35 H (22-30) mmol/L BUN 77 H (9-20) mg/dL Creatinine 1.88 H (0.66-1.25) mg/dL Glucose 111 H (74-99) mg/dL POC Glucose (mg/dL) 104 H (75-99) mg/dL Microbiology - Last 24 Hours (Table) 01/09/19 21:51 Blood Culture - Preliminary Blood No Growth after 72 hours Assessment and Plan Assessment: #1 nonoliguric acute kidney injury secondary to type I cardiorenal syndrome. Baseline creatinine 0.9 MG per DL. #2 status post mitral valve repair in October 2018. #3 diastolic CHF. #4 anemia #5 essential hypertension currently controlled. #6 electrolyte abnormality secondary to diabetic use #7 diabetes on insulin. #8 COPD on home oxygen Plan: #1 renal function improving. Continue with Lasix 40 mg IV 3 times a day. #2 replace electrolytes. #3 daily weights. Goal net negative balance of 2 L daily. #4 avoid nephrotoxic agents and hypotensive episodes.
--- NOTE | 2019-01-13 10:41 | P.PN ---
Subjective Progress Note Date: 01/13/19 Today's evaluation, the patient is able to sit up on a chair. I'm seeing in follow-up on . Chest from today intensive care unit as the patient was in CHF/pulmonary edema/fluid overload. He was given Lasix 40 mg IV every 8 hours. His creatinine is improved and his creatinine is down to 1.8. He continues to produce excellent urine output and his net fluid balance over the past 24 hours has been -2.0 L and he lost another 2.7 L the day before. As mentioned, the creatinine is improving. Hemoglobin stable at 7.1. No signs of any GI bleed. His follow-up chest x-ray that was done today showed CHF and cardiomegaly. His cardiac rhythm is sinus with a first-degree AV block. Sternum stable clean and intact. He is tolerating his diet. A repeat echocardiogram was done.Echocardiogram was repeated and it showed evidence of severe pulmonary hypertension. PA pressures were as high as 69. LV function showed an ejection fraction of 50-55%. RV was severely dilated. RA was mild a dilated. There was mild aortic regurgitation. Mild to moderate mitral regurgitation. Moderate mitral stenosis. Evidence of mitral valve repair. Peak and mean mitral valve gradients were 17 and 6 mmHg by Doppler. Severe pulmonary hypertension was noted. Inferior vena cava was mildly dilated. His p roBNP was significantly elevated and he responded to diuretics. He was probably cardiorenal syndrome and his kidney function is also improving Objective - Vital Signs Vital signs: Vital Signs Temp 98 F 01/13/19 04:00 Pulse 60 01/13/19 07:00 Resp 15 01/13/19 07:00 BP 124/60 01/13/19 07:00 Pulse Ox 97 01/13/19 07:00 Intake & Output 01/12/19 01/13/19 01/13/19 18:59 06:59 18:59 Intake Total 710 320 10 Output Total 1575 1500 150 Balance -865 -1180 -140 Weight 105.7 kg Intake: IV 210 120 10 0.9 kvo 110 120 10 Magnesium Sulfate-D5w Pmx 100 1 gm In Dextrose/Water 1 100ml.bag @ 100 mls/hr IVPB Q1H [facility] Rx#: [id number] Oral 500 200 Output: Urine 1575 1500 150 Other: Voiding Method Indwelling Catheter Indwelling Catheter # Bowel Movements 1 - Exam GENERAL EXAM: Alert, pleasant, 73-year-old white male, on 2 L of oxygen with a pulse ox of 96%, comfortable in no apparent distress. HEAD: Normocephalic/atraumatic. EYES: Normal reaction of pupils, equal size. Conjunctiva pink, sclera white. NOSE: Clear with pink turbinates. THROAT: No erythema or exudates. NECK: No masses, no JVD, no thyroid enlargement, no adenopathy. CHEST: No chest wall deformity. Symmetrical expansion. LUNGS: Equal air entry with diffuse crackles, but no wheeze, rhonchi or dullness. CVS: Regular rate and rhythm, normal S1 and S2, no gallops, no murmurs, no rubs ABDOMEN: Soft, nontender. No hepatosplenomegaly, normal bowel sounds, no guarding or rigidity. EXTREMITIES: No clubbing, bilateral lower extremity edema, and small healing blisters on his anterior shins, and his bilateral feet with no significant surrounding erythema or warmth, no cyanosis, 2+ pulses and upper and lower extremities. Both lower extremities are Zi wrapped MUSCULOSKELETAL: Muscle strength and tone normal. SPINE: No scoliosis or deformity SKIN: No rashes CENTRAL NERVOUS SYSTEM: Alert and oriented -3. No focal deficits, tone is normal in all 4 extremities. PSYCHIATRIC: Alert and oriented -3. Appropriate affect. Intact judgment and insight. - Labs CBC & Chem 7: 01/13/19 04:53 01/13/19 04:59 Labs: Abnormal Lab Results - Last 24 Hours (Table) 01/12/19 01/12/19 01/12/19 Range/Units 12:04 18:04 21:25 RBC (4.30-5.90) m/uL Hgb (13.0-17.5) gm/dL Hct (39.0-53.0) % MCV (80.0-100.0) fL MCHC (31.0-37.0) g/dL RDW (11.5-15.5) % Lymphocytes # (Manual) (1.0-4.8) k/uL Eosinophils # (Manual) (0-0.7) k/uL Carbon Dioxide (22-30) mmol/L BUN (9-20) mg/dL Creatinine (0.66-1.25) mg/dL Glucose (74-99) mg/dL POC Glucose (mg/dL) 217 H 221 H 239 H (75-99) mg/dL 01/13/19 01/13/19 01/13/19 Range/Units 04:53 04:59 06:54 RBC 2.26 L (4.30-5.90) m/uL Hgb 7.1 L (13.0-17.5) gm/dL Hct 23.1 L (39.0-53.0) % MCV 101.9 H (80.0-100.0) fL MCHC 30.6 L (31.0-37.0) g/dL RDW 18.7 H (11.5-15.5) % Lymphocytes # (Manual) 0.34 L (1.0-4.8) k/uL Eosinophils # (Manual) 0.80 H (0-0.7) k/uL Carbon Dioxide 35 H (22-30) mmol/L BUN 77 H (9-20) mg/dL Creatinine 1.88 H (0.66-1.25) mg/dL Glucose 111 H (74-99) mg/dL POC Glucose (mg/dL) 104 H (75-99) mg/dL Microbiology - Last 24 Hours (Table) 01/09/19 21:51 Blood Culture - Preliminary Blood No Growth after 72 hours Assessment and Plan Plan: #1. Lethargy and weakness , improving #2. Acute exacerbation of systolic congestive heart failure, doubt possibility of pneumonia, chest x-ray showed pulmonary edema, proBNP was elevated at 16,800, no leukocytosis, no fever or chills, the echocardiogram showed evidence of severe pulmonary hypertension and moderate mitral stenosis and mild regurgitation of the mitral valve post repair. RV was dilated. This is secondary pulmonary hypertension secondary to his valvular heart disease. I still that the patient has ongoing valvular heart disease contributing to his pulmonary hypertension and heart failure. He responded nicely to diuretics. The patient is further improved. Cardiology is on the case. I discussed the case with them and they're opting medical treatment regarding his CHF and ongoing valvular disease. I'm pleased to report that his kidney function is improving and the creatinine is on the decline in the chest x-ray showing improved pulmonary edema. We'll continue diuretics for another 24 hours to keep him in a negative fluid balance. #3. Recent complex mitral valve repair in October 2018 for history of severe eccentric mitral valve regurgitation with severely calcified mitral valve annulus #4. Valvular heart disease, please refer to the most recent echocardiogram #5. Acute kidney injury, related to cardiorenal factors, improving creatinine and patient's producing excellent urine output. #6. Bilateral lower extremity cellulitis, and patient was recently hospitalized treated with IV antibiotics, and his lower extremities are improving, less swollen, and there is no redness or warmth, and the lack cellulitis in the 17 recovered #7. Severe chronic congestive heart failure with diastolic dysfunction, and his echocardiogram showed EF of 50-55% #8. 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 Obstructive sleep apnea not on home CPAP #10. Coronary artery disease with recent placement of a drug-eluting stent to the LAD in September 2018 #11. Hypertension #12. Hyperlipidemia #13. Diabetes mellitus type 2 with peripheral neuropathy #14. Previous history of smoking MARVIN Continued IV Lasix. Monitor urine output. Monitor creatinine. Chest x-ray is improving. His currently on oxygen at 2 L. no plans for FAUSTINO for now. Katie tments can be essentially medical. We'll continue to follow. No evidence of cellulitis. The wounds in the lower extremities is improved. Is the first day when he was able to stand up with assistance. We'll going to try to get him walking.
[2019-01-13 11:41] LABS: Glucose,Whole Blood 209 mg/dL (75-99)
[2019-01-13] MEDS: IPRATROPIUM-ALBUTEROL 3 ML NEB INHALATION PRN ×2 (11:46→15:36)
--- NOTE | 2019-01-13 13:51 | P.PN ---
Subjective This is Natalie Cummings PA-C dictating a progress note on this patient The patient was interviewed and examined by me as well as by Dr. Deng Case discussed with Dr. Deng and he agrees with the plan of care IMPRESSION / ASSESSMENT: Acute on chronic combined systolic and diastolic heart failure, most recent echo showing EF 50-55%, diuresing well, breathing History of valvular heart disease status post mitral valve replacement, echoca rdiogram showing mild to moderate MR and moderate MS following mitral valve repair CAD status post recent stent placement MIGUEL ANGEL on CKD, creatinine improving, nephrology following COPD Anemia Severe pulmonary hypertension Hypertension Dyslipidemia Diabetes Former smoker PLAN: Add spironolactone 25 mg daily Continue IV Lasix Will discuss stopping amiodarone for CT surgery consider right heart cath to assess PA pressures after adequate diuresis and he is able to lie supine Recommend workup for anemia, could be contributing to her shortness of breath HPI/interval history Patient is a 73-year-old male with a past medical history significant for CAD status post stenting, COPD, chronic diastolic heart failure, mitral valve disease status post mitral valve repair, COPD, HENRY, diabetes and CKD who presented with complaints of shortness of breath. He was admitted for treatment of CHF exacerbation and was started on IV Lasix. Yesterday he had to be transferred to the ICU secondary to confusion and lethargy. Echocardiogram shows EF low normal, 50-55%, mild to moderate MR, moderate MS, severe pulmonary hypertension RVSP 69.54. Patient has been diuresing well. Patient seen and examined sitting up in bed. States his breathing has improved. Says he has not is short of breath with laying flat. Appears to be breathing more comfortably. Denies any chest pain or palpitations. EXAMINATION Patient is afebrile, pulse 61, respirations 18, blood pressure 130/60, oxygen saturation 97% on 2 L nasal cannula Patient seen and examined sitting up in bed, in no acute distress Lungs diminished with few crackles Heart is regular, systolic murmur audible No elevated JVD appreciated Lower extremities are wrapped with a dressing and Zi wrap, Trace lower extremity edema REVIEW OF LABS, ECG WBC 5.7, hemoglobin 7.1, potassium 3.9, BUN 77, creatinine 1.88 Objective - Vital Signs Vital signs: Vital Signs Temp 98 F 01/13/19 04:00 Pulse 60 01/13/19 11:57 Resp 12 01/13/19 11:00 BP 129/61 01/13/19 11:00 Pulse Ox 99 01/13/19 11:00 Intake & Output 01/12/19 01/13/19 01/13/19 18:59 06:59 18:59 Intake Total 710 320 310 Output Total 1575 1500 875 Balance -865 -1180 -565 Weight 105.7 kg Intake: IV 210 120 10 0.9 kvo 110 120 10 Magnesium Sulfate-D5w Pmx 100 1 gm In Dextrose/Water 1 100ml.bag @ 100 mls/hr IVPB Q1H [facility] Rx#: [id number] Intake, IV Titration 100 Amount Magnesium Sulfate-D5w Pmx 100 1 gm In Dextrose/Water 1 100ml.bag @ 100 mls/hr IVPB Q1H [facility] Rx#: [id number] Oral 500 200 200 Output: Urine 1575 1500 875 Other: Voiding Method Indwelling Catheter Indwelling Catheter Indwelling Catheter # Bowel Movements 1 - Labs CBC & Chem 7: 01/13/19 04:53 01/13/19 04:59 Labs: Abnormal Lab Results - Last 24 Hours (Table) 01/12/19 01/12/19 01/13/19 Range/Units 18:04 21:25 04:53 RBC 2.26 L (4.30-5.90) m/uL Hgb 7.1 L (13.0-17.5) gm/dL Hct 23.1 L (39.0-53.0) % MCV 101.9 H (80.0-100.0) fL MCHC 30.6 L (31.0-37.0) g/dL RDW 18.7 H (11.5-15.5) % Lymphocytes # (Manual) 0.34 L (1.0-4.8) k/uL Eosinophils # (Manual) 0.80 H (0-0.7) k/uL Carbon Dioxide (22-30) mmol/L BUN (9-20) mg/dL Creatinine (0.66-1.25) mg/dL Glucose (74-99) mg/dL POC Glucose (mg/dL) 221 H 239 H (75-99) mg/dL 01/13/19 01/13/19 01/13/19 Range/Units 04:59 06:54 11:39 RBC (4.30-5.90) m/uL Hgb (13.0-17.5) gm/dL Hct (39.0-53.0) % MCV (80.0-100.0) fL MCHC (31.0-37.0) g/dL RDW (11.5-15.5) % Lymphocytes # (Manual) (1.0-4.8) k/uL Eosinophils # (Manual) (0-0.7) k/uL Carbon Dioxide 35 H (22-30) mmol/L BUN 77 H (9-20) mg/dL Creatinine 1.88 H (0.66-1.25) mg/dL Glucose 111 H (74-99) mg/dL POC Glucose (mg/dL) 104 H 209 H (75-99) mg/dL Microbiology - Last 24 Hours (Table) 01/09/19 21:51 Blood Culture - Preliminary Blood No Growth after 72 hours
[2019-01-13] MEDS: SPIRONOLACTONE 25 MG TAB PO SCH (13:55)
[2019-01-13] MEDS: ZINC SULFATE 220 MG CAP PO SCH (16:38)
[2019-01-13] MEDS: MULTIVITAMINS, THERA 1 EACH TAB PO SCH (16:38)
[2019-01-13] MEDS: LACTOBACILLUS ACIDOPH & BULGAR 1 EACH PACKET PO SCH (16:38)
[2019-01-13] MEDS: ASPIRIN 81 MG PO SCH (16:38)
[2019-01-13] MEDS: CHOLECALCIFEROL 1,000 UNIT TAB PO SCH (16:38)
[2019-01-13 16:49] LABS: Glucose,Whole Blood 249 mg/dL (75-99)
--- NOTE | 2019-01-13 16:52 | P.PN ---
Subjective Progress Note Date: 01/13/19 Principal diagnosis: Acute exacerbation systolic CHF Acute renal injury possibly cardiorenal Bilateral lower extremity cellulitis Encephalopathy 73-year-old white male patient of Dr. Patel, with recent history of mitral valve repair for history of severe mitral valve regurgitation with severely calcified mitral valve annulus, status post complex mitral valve repair on 10/31/2018. Other medical history includes coronary artery disease with recent drug-eluting stent placement in the LAD in September 2018, chronic diastolic heart failure, hypertension, hyperlipidemia, type 2 diabetes mellitus with peripheral neuropathy, chronic kidney disease, moderately severe COPD, obstructive sleep apnea without home CPAP use, hypertension, obesity, previous tobacco dependence and paroxysmal atrial fibrillation. Following his surgery patient went to subacute rehab at [facility] for further rehabilitation related to significant weakness, and prolonged recovery postoperative mitral valve repair. Patient also had recent hospitalization in November for bilateral lower extremity cellulitis. Patient was treated with Zosyn and vancomycin, the swelling and the blistering have improved. 01/11/2019 Patient is seen and evaluated in room at bedside; patient complaints of difficulty sleeping; no other complaints; per nursing staff patient has been complaining of hallucinating during the night; no such complaints anymore Vital signs are reviewed and remained stable with a temperature of 97.5, pulse 62, respiration 18 and blood pressure 120/61 and SpO2 of 97% on 2 L Laboratory review shows a white blood count of 7.4, hemoglobin 7 and platelet count of 04/14/1989; sodium 139 and potassium of 4.6; BUN/creatinine has been slowly trending down from 2.7 yesterday down to 2.4; magnesium of 1.4; patient is started on electrolyte protocol; patient remains on IV diuretics per cardiology for acute exacerbation CHF and hydralazine is admitted; pulmonary service recommending to stop antibiotics for pneumonia; ID to see patient for trace of antibiotics for cellulitis 01/12/2019 Patient transferred to ICU yesterday- found to be lethargic and somewhat confused; patient's is awake alert and oriented this morning. Patient remains on IV Lasix 40 mg every 8 hours. He made excellent urine output and his net fluid balance is been negative more than 2.5 L over the past 24 hours. Chest x-ray shows improvement in the aeration. There is underlying cardiomegaly. Echocardiogram was repeated and it showed evidence of severe pulmonary hypertension. PA pressures were as high as 69. LV function showed an ejection fraction of 50-55%. RV was severely dilated. RA was mild a dilated. There was mild aortic regurgitation. Mild to moderate mitral regurgitation. Moderate mitral stenosis. Evidence of mitral valve repair. Peak and mean mitral valve gradients were 17 and 6 mmHg by Doppler. Severe pulmonary hypertension was noted. Inferior vena cava was mildly dilated. His proBNP was significantly elevated and he responded to diuretics. He was probably cardiorenal syndrome and his kidney function is also improving and the creatinine is down to 2.1. 01/13/2019 Patient is seen and evaluated in ICU this follow-up sitting up in bedside chair Patient remains on Lasix 40 mg IV every 8 hours with fair urine output and a negative fluid balance over past 24 hours Labs show improvement in creatinine; hemoglobin remained stable at 7.1; no signs of overt bleeding; repeat chest x-ray shows CHF and cardiomegaly; repeat echocardiogram shows an ejection fraction of 50-55% with severe pulmonary hypertension Objective - Vital Signs Vital signs: Vital Signs Temp 98 F 01/13/19 04:00 Pulse 60 01/13/19 11:57 Resp 12 01/13/19 11:00 BP 129/61 01/13/19 11:00 Pulse Ox 99 01/13/19 11:00 Intake & Output 01/12/19 01/13/19 01/13/19 18:59 06:59 18:59 Intake Total 710 320 310 Output Total 1575 1500 875 Balance -865 -1180 -565 Weight 105.7 kg Intake: IV 210 120 10 0.9 kvo 110 120 10 Magnesium Sulfate-D5w Pmx 100 1 gm In Dextrose/Water 1 100ml.bag @ 100 mls/hr IVPB Q1H [facility] Rx#: [id number] Intake, IV Titration 100 Amount Magnesium Sulfate-D5w Pmx 100 1 gm In Dextrose/Water 1 100ml.bag @ 100 mls/hr IVPB Q1H [facility] Rx#: [id number] Oral 500 200 200 Output: Urine 1575 1500 875 Other: Voiding Method Indwelling Catheter Indwelling Catheter Indwelling Catheter # Bowel Movements 1 - Exam HEAD: Normocephalic/atraumatic. EYES: Normal reaction of pupils, equal size. Conjunctiva pink, sclera white. NOSE: Clear with pink turbinates. THROAT: No erythema or exudates. NECK: No masses, no JVD, no thyroid enlargement, no adenopathy. CHEST: No chest wall deformity. Symmetrical expansion. LUNGS: Equal air entry with diffuse crackles, but no wheeze, rhonchi or dullness. CVS: Regular rate and rhythm, normal S1 and S2, no gallops, no murmurs, no rubs ABDOMEN: Soft, nontender. No hepatosplenomegaly, normal bowel sounds, no guarding or rigidity. EXTREMITIES: No clubbing, bilateral lower extremity edema, and small healing blisters on his anterior shins, and his bilateral feet with no significant surrounding erythema or warmth, no cyanosis, 2+ pulses and upper and lower extremities. Both lower extremities are Zi wrapped - Labs CBC & Chem 7: 01/13/19 04:53 01/13/19 04:59 Labs: Abnormal Lab Results - Last 24 Hours (Table) 01/12/19 01/12/19 01/13/19 Range/Units 18:04 21:25 04:53 RBC 2.26 L (4.30-5.90) m/uL Hgb 7.1 L (13.0-17.5) gm/dL Hct 23.1 L (39.0-53.0) % MCV 101.9 H (80.0-100.0) fL MCHC 30.6 L (31.0-37.0) g/dL RDW 18.7 H (11.5-15.5) % Lymphocytes # (Manual) 0.34 L (1.0-4.8) k/uL Eosinophils # (Manual) 0.80 H (0-0.7) k/uL Carbon Dioxide (22-30) mmol/L BUN (9-20) mg/dL Creatinine (0.66-1.25) mg/dL Glucose (74-99) mg/dL POC Glucose (mg/dL) 221 H 239 H (75-99) mg/dL 01/13/19 01/13/19 01/13/19 Range/Units 04:59 06:54 11:39 RBC (4.30-5.90) m/uL Hgb (13.0-17.5) gm/dL Hct (39.0-53.0) % MCV (80.0-100.0) fL MCHC (31.0-37.0) g/dL RDW (11.5-15.5) % Lymphocytes # (Manual) (1.0-4.8) k/uL Eosinophils # (Manual) (0-0.7) k/uL Carbon Dioxide 35 H (22-30) mmol/L BUN 77 H (9-20) mg/dL Creatinine 1.88 H (0.66-1.25) mg/dL Glucose 111 H (74-99) mg/dL POC Glucose (mg/dL) 104 H 209 H (75-99) mg/dL Microbiology - Last 24 Hours (Table) 01/09/19 21:51 Blood Culture - Preliminary Blood No Growth after 72 hours Assessment and Plan Assessment: Generalized weakness, lethargy and altered mental status likely due to metabolic encephalopathy. Improving now Acute on chronic kidney disease stage III. Baseline creatinine around 1.1. Creatinine 2.86 on admission Acute on chronic CHF with diastolic dysfunction. gentle diuresis. Mild hyperkalemia due to acute kidney injury and also potassium supplementation at home Recent history of bilateral lower extremities cellulitis Status post antibiotic course at rehab Chronic Anemia/anemia of chronic disease Possible right lower lobe pneumonia. Low suspicion. Patient does have T-max 100.9 and no leukocytosis. Currently patient is afebrile. Severe mitral regurgitation with severely calcified mitral annulus. 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 Patient was continued on gentle hydration. Repeat CBC and BMP was ordered. Continue the home medications and avoid hypotension. Avoid nephrotoxic medications. Nephrology service will be consulted. ID is on board. Follow-up renal function and potassium level. PTOT will be consulted. Prognosis is guarded with multiple medical problems and comorbid conditions. Time with Patient: Greater than 30
[2019-01-13 20:08] LABS: Glucose,Whole Blood 343 mg/dL (75-99)
[2019-01-13] MEDS: ATORVASTATIN 40 MG TAB PO SCH (20:18)
[2019-01-13] MEDS: ESCITALOPRAM 10 MG TAB PO SCH (20:18)
[2019-01-13] MEDS: TAMSULOSIN 0.4 MG CAP.ER.24H PO SCH (20:18)
[2019-01-13] MEDS: INSULIN DETEMIR (LEVEMIR) 100 UNIT/ML SYR SQ SCH ×2 (20:19→22:50)
[2019-01-14] MEDS: PANTOPRAZOLE 40 MG TABLET PO SCH (06:00)
[2019-01-14 06:01] LABS: Glucose,Whole Blood 104 mg/dL (75-99)
[2019-01-14 06:34] LABS: Anisocytosis Slight; Basophils # (A) 0.1 k/uL (0-0.2); Basophils % (A) 1 %; Eosinophils # (A) 0.7 k/uL (0-0.7); Eosinophils % (A) 13 %; HCT 23.1 % (39.0-53.0); Hypochromasia Marked; Lymphocytes # (A) 0.6 k/uL (1.0-4.8); Lymphocytes % (A) 10 %; MCH 29.9 pg (25.0-35.0); MCHC 29.2 g/dL (31.0-37.0); MCV 102.3 fL (80.0-100.0); Macrocytosis Moderate; Mean Platelet Volume 6.6; Monocytes # (A) 0.4 k/uL (0-1.0); Monocytes % (A) 6 %; Neutrophils # (A) 3.9 k/uL (1.3-7.7); Neutrophils % (A) 69 %; Platelet Count 226 k/uL (150-450); RBC 2.26 m/uL (4.30-5.90); RDW 18.6 % (11.5-15.5); WBC 5.7 k/uL (3.8-10.6)
[2019-01-14 06:35] LABS: HGB 6.8 gm/dL (13.0-17.5)
[2019-01-14 06:38] LABS: Albumin 2.8 g/dL (3.5-5.0); Calcium 8.6 mg/dL (8.4-10.2); Magnesium 1.8 mg/dL (1.6-2.3); Potassium 3.8 mmol/L (3.5-5.1); Total Bilirubin 0.6 mg/dL (0.2-1.3)
[2019-01-14] MEDS: FUROSEMIDE 10 MG/ML 4 ML VIAL IV SCH (09:25)
[2019-01-14] MEDS: SPIRONOLACTONE 25 MG TAB PO SCH (09:25)
[2019-01-14] MEDS: SENNOSIDES-DOCUSATE SODIUM 1 EACH TAB PO SCH ×2 (09:25→20:19)
[2019-01-14] MEDS: hydrALAZINE HCL 25 MG TAB PO SCH ×2 (09:26→20:19)
[2019-01-14] MEDS: CLOPIDOGREL 75 MG TAB PO SCH (09:26)
[2019-01-14] MEDS: INSULIN ASPART (NovoLOG) 100 UNIT/ML VIAL SQ SCH ×4 (09:26→22:11)
[2019-01-14] MEDS: GABAPENTIN 100 MG CAP PO SCH ×2 (09:26→20:19)
[2019-01-14] MEDS: METOPROLOL TARTRATE 50 MG TAB PO SCH ×2 (09:26→20:19)
[2019-01-14] MEDS: HEPARIN SODIUM,PORCINE 5,000 UNIT/ML 1 ML VIAL SQ SCH ×3 (09:26→22:11)
[2019-01-14] MEDS: ACETAMINOPHEN TAB 325 MG TAB PO PRN ×3 (09:27→22:12)
--- NOTE | 2019-01-14 10:06 | P.PN ---
Subjective Patient is seen in follow-up for acute kidney injury. Renal function is improving. Creatinine 1.67 today. No vomiting or diarrhea. Currently guillermo moreirained on IV Lasix 40 mg 3 times daily. Urine output has been good. Denies active chest pain or shortness of breath. Edema improving. Hgb 6.8, receiving pRBC. Vital signs are stable. General: The patient appeared well nourished and normally developed. HEENT: Head exam is unremarkable. Neck is without jugular venous distension. LUNGS: Breath sounds decreased. HEART: Rate and Rhythm are regular. First and second heart sounds normal. No murmurs, rubs or gallops. ABDOMEN: Abdominal exam reveals normal bowel sounds. Non-tender and non- distended. EXTREMITITES: Trace edema. Objective - Vital Signs Vital signs: Vital Signs Temp 98.3 F 01/14/19 09:26 Pulse 68 01/14/19 09:26 Resp 19 01/14/19 09:26 BP 135/70 01/14/19 09:26 Pulse Ox 98 01/14/19 08:00 Intake & Output 01/13/19 01/14/19 01/14/19 18:59 06:59 18:59 Intake Total 510 240 Output Total 1475 Balance -965 240 Intake: IV 10 0.9 kvo 10 Intake, IV Titration 100 Amount Magnesium Sulfate-D5w Pmx 100 1 gm In Dextrose/Water 1 100ml.bag @ 100 mls/hr IVPB Q1H [facility] Rx#: [id number] Oral 400 240 Blood Product 0 Rc As-1 Unit 0 [id number] Output: Urine 1475 Other: Voiding Method Indwelling Catheter Indwelling Catheter # Voids 0 - Labs CBC & Chem 7: 01/14/19 06:09 01/14/19 06:09 Labs: Abnormal Lab Results - Last 24 Hours (Table) 01/13/19 01/13/19 01/13/19 Range/Units 11:39 16:37 20:07 RBC (4.30-5.90) m/uL Hgb (13.0-17.5) gm/dL Hct (39.0-53.0) % MCV (80.0-100.0) fL MCHC (31.0-37.0) g/dL RDW (11.5-15.5) % Lymphocytes # (1.0-4.8) k/uL Carbon Dioxide (22-30) mmol/L BUN (9-20) mg/dL Creatinine (0.66-1.25) mg/dL POC Glucose (mg/dL) 209 H 249 H 343 H (75-99) mg/dL Alkaline Phosphatase (38-126) U/L Total Protein (6.3-8.2) g/dL Albumin (3.5-5.0) g/dL Crossmatch 01/14/19 01/14/19 01/14/19 Range/Units 06:00 06:09 06:09 RBC 2.26 L (4.30-5.90) m/uL Hgb 6.8 L* (13.0-17.5) gm/dL Hct 23.1 L (39.0-53.0) % MCV 102.3 H (80.0-100.0) fL MCHC 29.2 L (31.0-37.0) g/dL RDW 18.6 H (11.5-15.5) % Lymphocytes # 0.6 L (1.0-4.8) k/uL Carbon Dioxide 38 H (22-30) mmol/L BUN 71 H (9-20) mg/dL Creatinine 1.67 H (0.66-1.25) mg/dL POC Glucose (mg/dL) 104 H (75-99) mg/dL Alkaline Phosphatase 134 H (38-126) U/L Total Protein 6.0 L (6.3-8.2) g/dL Albumin 2.8 L (3.5-5.0) g/dL Crossmatch 01/14/19 Range/Units 07:01 RBC (4.30-5.90) m/uL Hgb (13.0-17.5) gm/dL Hct (39.0-53.0) % MCV (80.0-100.0) fL MCHC (31.0-37.0) g/dL RDW (11.5-15.5) % Lymphocytes # (1.0-4.8) k/uL Carbon Dioxide (22-30) mmol/L BUN (9-20) mg/dL Creatinine (0.66-1.25) mg/dL POC Glucose (mg/dL) (75-99) mg/dL Alkaline Phosphatase (38-126) U/L Total Protein (6.3-8.2) g/dL Albumin (3.5-5.0) g/dL Crossmatch See Detail Microbiology - Last 24 Hours (Table) 01/09/19 21:51 Blood Culture - Preliminary Blood No Growth after 96 hours Assessment and Plan Plan: Assessment: 1. Acute kidney injury mostly prerenal secondary to cardiorenal syndrome. Renal function improving. Creatinine 1.67 today. 2. 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 3. Volume overload. Improving with diuresis. 4. Anemia. Stool for occult blood negative. Rule out iron deficiency. Receiving pRBC today. No active bleeding. Also on aranesp. 5. Acute on chronic diastolic CHF with mild to moderate mitral regurgitation, moderate tricuspid regurgitation and severe pulmonary hypertension. 6. Hypomagnesemia secondary to diuresis. Better. 7. Insulin-dependent diabetes mellitus. Plan: Maintain Lasix 40 mg IV 3 times daily. Check iron studies. Avoid nephrotoxins. Repeat electrolytes in the morning.
[2019-01-14] MEDS: AMIODARONE 100 MG TAB PO SCH (10:16)
--- NOTE | 2019-01-14 12:15 | P.PN ---
Subjective Progress Note Date: 01/14/19 Patient is a 73-year-old male with a past medical history significant for CAD status post stenting, COPD, chronic diastolic heart failure, mitral valve disease status post mitral valve repair, COPD, HENRY, diabetes and CKD who presented with complaints of shortness of breath. He was admitted for treatment of CHF exacerbation and was started on IV Lasix. Patient diuresed well through the night last night although his weight is not reflective of this. Creatinine improving, 1.6 today, BUN 71. Hemoglobin today down to 6.8. Blood pressure 165/74 with a heart rate in the 60s, normal LV function. Overall the patient feels significantly better. We will discontinue the IV Lasix and change to Lasix 80 mg 1 tablet by mouth twice a day. Consult Dr. Parish regarding anemia. Objective - Vital Signs Vital signs: Vital Signs Temp 98.3 F 01/14/19 09:26 Pulse 67 01/14/19 11:45 Resp 18 01/14/19 11:45 BP 165/74 01/14/19 09:56 Pulse Ox 98 01/14/19 08:00 Intake & Output 01/13/19 01/14/19 01/14/19 18:59 06:59 18:59 Intake Total 510 240 Output Total 1475 Balance -965 240 Intake: IV 10 0.9 kvo 10 Intake, IV Titration 100 Amount Magnesium Sulfate-D5w Pmx 100 1 gm In Dextrose/Water 1 100ml.bag @ 100 mls/hr IVPB Q1H [facility] Rx#: [id number] Oral 400 240 Blood Product 0 Rc As-1 Unit 0 [id number] Output: Urine 1475 Other: Voiding Method Indwelling Catheter Indwelling Catheter Indwelling Catheter # Voids 0 - Exam Patient seen and examined sitting up in bed, in no acute distress Lungs diminished with few crackles Heart is regular, systolic murmur audible No elevated JVD appreciated Lower extremities are wrapped with a dressing and Zi wrap, Trace lower extremity edema - Labs CBC & Chem 7: 01/14/19 06:09 01/14/19 06:09 Labs: Abnormal Lab Results - Last 24 Hours (Table) 01/13/19 01/13/19 01/14/19 Range/Units 16:37 20:07 06:00 RBC (4.30-5.90) m/uL Hgb (13.0-17.5) gm/dL Hct (39.0-53.0) % MCV (80.0-100.0) fL MCHC (31.0-37.0) g/dL RDW (11.5-15.5) % Lymphocytes # (1.0-4.8) k/uL Carbon Dioxide (22-30) mmol/L BUN (9-20) mg/dL Creatinine (0.66-1.25) mg/dL POC Glucose (mg/dL) 249 H 343 H 104 H (75-99) mg/dL Alkaline Phosphatase (38-126) U/L Total Protein (6.3-8.2) g/dL Albumin (3.5-5.0) g/dL Crossmatch 01/14/19 01/14/19 01/14/19 Range/Units 06:09 06:09 07:01 RBC 2.26 L (4.30-5.90) m/uL Hgb 6.8 L* (13.0-17.5) gm/dL Hct 23.1 L (39.0-53.0) % MCV 102.3 H (80.0-100.0) fL MCHC 29.2 L (31.0-37.0) g/dL RDW 18.6 H (11.5-15.5) % Lymphocytes # 0.6 L (1.0-4.8) k/uL Carbon Dioxide 38 H (22-30) mmol/L BUN 71 H (9-20) mg/dL Creatinine 1.67 H (0.66-1.25) mg/dL POC Glucose (mg/dL) (75-99) mg/dL Alkaline Phosphatase 134 H (38-126) U/L Total Protein 6.0 L (6.3-8.2) g/dL Albumin 2.8 L (3.5-5.0) g/dL Crossmatch See Detail Microbiology - Last 24 Hours (Table) 01/09/19 21:51 Blood Culture - Preliminary Blood No Growth after 96 hours Assessment and Plan Plan: Assessment and plan #1 Acute on chronic combined systolic and diastolic heart failure, most recent echo showing EF 50-55%, diuresing well. #2 History of valvular heart disease status post mitral valve replacement, echocardiogram showing mild to moderate MR and moderate MS following mitral valve repair, normal LV function #3 CAD status post recent stent placement #4 chronic kidney disease , creatinine improving, nephrology following #5 COPD #6 Anemia, hemoglobin 6.8 today #7 Severe pulmonary hypertension #8 Hypertension #9 Dyslipidemia #10 Diabetes #11 Former smoker Plan We will discontinue the IV Lasix today and start the patient on Lasix 80 mg 1 tablet by mouth twice a day. We also recommend consultation with Dr. Parish for anemia. Check lytes BUN and creatinine in the morning. DNP note has been reviewed, I agree with a documented findings and plan of care. Patient was seen and examined.
[2019-01-14 12:16] LABS: Glucose,Whole Blood 130 mg/dL (75-99)
--- NOTE | 2019-01-14 14:01 | P.PN ---
Subjective Progress Note Date: 01/14/19 Principal diagnosis: Fatigue, lethargy, shortness of breath This is a 73-year-old white male patient of Dr. Patel, with recent history of mitral valve repair for history of severe mitral valve regurgitation with severely calcified mitral valve annulus, status post complex mitral valve repair on 10/31/2018. Other medical history includes coronary artery disease with recent drug-eluting stent placement in the LAD in September 2018, chronic diastolic heart failure, hypertension, hyperlipidemia, type 2 diabetes mellitus with peripheral neuropathy, chronic kidney disease, moderately severe COPD, obstructive sleep apnea without home CPAP use, hypertension, obesity, previous tobacco dependence and paroxysmal atrial fibrillation. Following his surgery patient went to subacute rehab at [facility] for further rehabilitation related to significant weakness, and prolonged recovery postoperative mitral valve repair. Patient also had recent hospitalization in November for bila teral lower extremity cellulitis. Patient was treated with Zosyn and vancomycin, the swelling and the blistering have improved. On 01/09/2019 patient presents to the emergency department per EMS for evaluation of increasing lethargy and fatigue, patient states that she feels more drowsy than normal, he is sleeping more, he is not eating because he is too tired, mildly short of breath, no altered mentation, no fever or chills, no cough or congestion, no hemoptysis. Chest x-ray showed cardiomegaly and left pleural effusion, pulmonary edema. EKG showed sinus rhythm with first-degree AV block, anterior infarct of undetermined age. Labs showed a white blood cell count of 11.4, hemoglobin of 7.9, INR is 1.2, sodium is 138, potassium is 5.4, chloride was 98, CO2 was 31, BUN is 91, creatinine is 2.86, lactic acid is 1.2, proBNP was significantly elevated at 16,800, urinalysis showed 1+ protein, moderate blood, but no evidence of infection. Fluids a screen was negative. Did have low-grade fever of 100.9F on presentation, he has been afebrile since. He had 92% O2 saturation on 2 L of oxygen, hemodynamically stable. He was started on combination of Levaquin and Zosyn for possibility of pneumonia however clinical presentation is more consistent with acute congestive heart failure, patient's echocardiogram from 11/30/2018 showed EF of 50-55%, severe mitral annular calcification, moderate mitral regurgitation, mild to moderate tricuspid regurgitation, moderate to severe pulmonary hypertension with PA systolic of 52 mmHg. On 01/11/2019 patient seen in follow-up on medical surgical floor. Patient is lethargic, more drowsy. Vital signs appear to be normal, she is on 2 L of o xygen with pulse ox of 97%, lung sounds are diminished, with scattered crackles throughout the lung horan, no fever or chills. We started the patient on IV Lasix 40 mg every 8 hours, weight trend is unknown, and patient has been incontinent of large amounts of urine. Lower extremity edema is improving, lower extremity is covered with Zi wrapped dressings. We consulted cardiology for reevaluation of his persistent mitral regurgitation and patient may require transesophageal echocardiogram. Today's labs have been reviewed, showing white blood cell count of 7.4, hemoglobin 7.0, electrolytes are within normal limits, renal profile stable BUN of 87, creatinine of 2.4, urine eosinophils was 0 influenza was negative. Echocardiogram was completed showed EF of 50-55%, mild aortic regurgitation, no evidence of aortic stenosis, [id number] mitral regurgitation is present, the peak and mean and the ingredients of her 17.1 mmHg and 6.13 mmHg, moderate mitral stenosis, and moderate tricuspid regurgitation and severe pulmonary hypertension with PA systolics of 69 mmHg. No vomiting or diarrhea, patient does get short of breath with exertion, otherwise in no acute distress. On 01/14/2019 patient seen in follow-up on selective care unit. He is awake and alert, in no acute distress. He is on 2 L of oxygen with a pulse ox of 99%, hemodynamically stable, no complex of chest pain, afebrile, he has been transitioned to oral Lasix 80 mg twice daily, he is in negative 5 mL fluid b alance over the last 24 hours, lower extremity edema is improving, he is receiving a unit of blood for hemoglobin of 6.8, no obvious signs of bleeding. Renal profile is improving on today's labs. No specific complaints, other than weakness, patient was assisted up out of bed and apparently his knees have been buckling under him. Physical therapy is working with the patient, and there is a likelihood that patient will require post discharge subacute rehab placement Objective - Vital Signs Vital signs: Vital Signs Temp 98.3 F 01/14/19 09:26 Pulse 64 01/14/19 12:11 Resp 16 01/14/19 12:11 BP 158/68 01/14/19 12:11 Pulse Ox 99 01/14/19 12:00 Intake & Output 01/13/19 01/14/19 01/14/19 18:59 06:59 18:59 Intake Total 510 550 Output Total 1475 Balance -965 550 Intake: IV 10 0.9 kvo 10 Intake, IV Titration 100 Amount Magnesium Sulfate-D5w Pmx 100 1 gm In Dextrose/Water 1 100ml.bag @ 100 mls/hr IVPB Q1H [facility] Rx#: [id number] Oral 400 240 Blood Product 310 Rc As-1 Unit 310 [id number] Output: Urine 1475 Other: Voiding Method Indwelling Catheter Indwelling Catheter Indwelling Catheter # Voids 0 1 - Exam GENERAL EXAM: Alert, pleasant, 73-year-old white male, on 2 L of oxygen with a pulse ox of 96%, comfortable in no apparent distress. HEAD: Normocephalic/atraumatic. EYES: Normal reaction of pupils, equal size. Conjunctiva pink, sclera white. NOSE: Clear with pink turbinates. THROAT: No erythema or exudates. NECK: No masses, no JVD, no thyroid enlargement, no adenopathy. CHEST: No chest wall deformity. Symmetrical expansion. LUNGS: Equal air entry with diffuse crackles, but no wheeze, rhonchi or dullness. CVS: Regular rate and rhythm, normal S1 and S2, no gallops, no murmurs, no rubs ABDOMEN: Soft, nontender. No hepatosplenomegaly, normal bowel sounds, no guarding or rigidity. EXTREMITIES: No clubbing, bilateral lower extremity edema, and small healing blisters on his anterior shins, and his bilateral feet with no significant surrounding erythema or warmth, no cyanosis, 2+ pulses and upper and lower extr emities. Both lower extremities are Zi wrapped MUSCULOSKELETAL: Muscle strength and tone normal. SPINE: No scoliosis or deformity SKIN: No rashes CENTRAL NERVOUS SYSTEM: Alert and oriented -3. No focal deficits, tone is normal in all 4 extremities. PSYCHIATRIC: Alert and oriented -3. Appropriate affect. Intact judgment and insight. - Labs CBC & Chem 7: 01/14/19 06:09 01/14/19 06:09 Labs: Abnormal Lab Results - Last 24 Hours (Table) 01/13/19 01/13/19 01/14/19 Range/Units 16:37 20:07 06:00 RBC (4.30-5.90) m/uL Hgb (13.0-17.5) gm/dL Hct (39.0-53.0) % MCV (80.0-100.0) fL MCHC (31.0-37.0) g/dL RDW (11.5-15.5) % Lymphocytes # (1.0-4.8) k/uL Carbon Dioxide (22-30) mmol/L BUN (9-20) mg/dL Creatinine (0.66-1.25) mg/dL POC Glucose (mg/dL) 249 H 343 H 104 H (75-99) mg/dL Alkaline Phosphatase (38-126) U/L Total Protein (6.3-8.2) g/dL Albumin (3.5-5.0) g/dL Crossmatch 01/14/19 01/14/19 01/14/19 Range/Units 06:09 06:09 07:01 RBC 2.26 L (4.30-5.90) m/uL Hgb 6.8 L* (13.0-17.5) gm/dL Hct 23.1 L (39.0-53.0) % MCV 102.3 H (80.0-100.0) fL MCHC 29.2 L (31.0-37.0) g/dL RDW 18.6 H (11.5-15.5) % Lymphocytes # 0.6 L (1.0-4.8) k/uL Carbon Dioxide 38 H (22-30) mmol/L BUN 71 H (9-20) mg/dL Creatinine 1.67 H (0.66-1.25) mg/dL POC Glucose (mg/dL) (75-99) mg/dL Alkaline Phosphatase 134 H (38-126) U/L Total Protein 6.0 L (6.3-8.2) g/dL Albumin 2.8 L (3.5-5.0) g/dL Crossmatch See Detail 01/14/19 Range/Units 12:14 RBC (4.30-5.90) m/uL Hgb (13.0-17.5) gm/dL Hct (39.0-53.0) % MCV (80.0-100.0) fL MCHC (31.0-37.0) g/dL RDW (11.5-15.5) % Lymphocytes # (1.0-4.8) k/uL Carbon Dioxide (22-30) mmol/L BUN (9-20) mg/dL Creatinine (0.66-1.25) mg/dL POC Glucose (mg/dL) 130 H (75-99) mg/dL Alkaline Phosphatase (38-126) U/L Total Protein (6.3-8.2) g/dL Albumin (3.5-5.0) g/dL Crossmatch Microbiology - Last 24 Hours (Table) 01/09/19 21:51 Blood Culture - Preliminary Blood No Growth after 96 hours Assessment and Plan Plan: Assessment: #1. Lethargy and weakness improving #2. Acute exacerbation of systolic congestive heart failure, doubt possibility of pneumonia, chest x-ray showed pulmonary edema, proBNP was elevated at 16,800, no leukocytosis, no fever or chills,the echocardiogram showed evidence of severe pulmonary hypertension and moderate mitral stenosis and mild regurgitation of the mitral valve post repair. RV was dilated. This is secondary pulmonary hypertension secondary to his valvular heart disease. I still that the patient has ongoing valvular heart disease contributing to his pulmonary hypertension and heart failure. He responded nicely to diuretics. The patient is further improved. Cardiology is on the case. I discussed the case with them and they're opting medical treatment regarding his CHF and ongoing valvular disease. I'm pleased to report that his kidney function is improving and the creatinine is on the decline in the chest x-ray showing improved pulmonary edema. We'll continue diuretics for another 24 hours to keep him in a negative fluid balance. #3. Recent complex mitral valve repair in October 2018 for history of severe eccentric mitral valve regurgitation with severely calcified mitral valve annulus #4. Valvular heart disease, last echocardiogram showed systolic moderate mitral valve regurgitation, [id number] TR, and pulmonary hypertension with PA systolic of 52 mmHg #5. Acute kidney injury #6. Bilateral lower extremity cellulitis, and patient was recently hospitalized treated with IV antibiotics, and his lower extremities are improving, less swollen, and there is no redness or warmth #7. Severe chronic congestive heart failure with diastolic dysfunction, and his echocardiogram showed EF of 50-55% #8. 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 Obstructive sleep apnea not on home CPAP #10. Coronary artery disease with recent placement of a drug-eluting stent to the LAD in September 2018 #11. Hypertension #12. Hyperlipidemia #13. Diabetes mellitus type 2 with peripheral neuropathy #14. Previous history of smoking Plan: Continue with current medical treatment, patient has been transitioned to oral Lasix, he is maintaining negative fluid balance, we'll obtain follow-up chest x- ray tomorrow, renal profile is improving, patient is receiving a unit of blood today, however there is no obvious signs of bleeding. Remains very generally weak, as a possibility patient may require subacute rehab placement after discharge. I performed a history & physical examination of the patient and discussed their management with my nurse practitioner, Lashon Jaimes. I reviewed the nurse practitioner's note and agree with the documented findings and plan of care. Lung sounds are positive for diminished with a few scattered crackles. The findings and the impression was discussed with the patient. I attest to the documentation by the nurse practitioner. Time with Patient: Less than 30
[2019-01-14 15:05] LABS: Anisocytosis Slight; Basophils % (A) 1 %; Eosinophils # (A) 0.7 k/uL (0-0.7); Eosinophils % (A) 10 %; HCT 25.4 % (39.0-53.0); HGB 8.1 gm/dL (13.0-17.5); Hypochromasia Marked; Lymphocytes # (A) 0.6 k/uL (1.0-4.8); Lymphocytes % (A) 8 %; MCH 31.7 pg (25.0-35.0); MCV 99.1 fL (80.0-100.0); Macrocytosis Slight; Mean Platelet Volume 6.5; Monocytes # (A) 0.5 k/uL (0-1.0); Monocytes % (A) 6 %; Neutrophils # (A) 5.2 k/uL (1.3-7.7); Neutrophils % (A) 73 %; Platelet Count 230 k/uL (150-450); Poikilocytosis Slight; RBC 2.56 m/uL (4.30-5.90); RDW 18.1 % (11.5-15.5); WBC 7.1 k/uL (3.8-10.6)
[2019-01-14] MEDS: MULTIVITAMINS, THERA 1 EACH TAB PO SCH (16:11)
[2019-01-14] MEDS: ASPIRIN 81 MG PO SCH (16:11)
[2019-01-14] MEDS: FUROSEMIDE 80 MG TAB PO SCH (16:11)
[2019-01-14] MEDS: LACTOBACILLUS ACIDOPH & BULGAR 1 EACH PACKET PO SCH (16:11)
[2019-01-14] MEDS: CHOLECALCIFEROL 1,000 UNIT TAB PO SCH (16:11)
[2019-01-14 16:47] LABS: Glucose,Whole Blood 266 mg/dL (75-99)
[2019-01-14 17:42] LABS: Ferritin 728.8 ng/mL (22.0-322.0)
[2019-01-14 17:43] LABS: Iron Saturation 16.26 (15.00-50.00)
[2019-01-14] MEDS: ZINC SULFATE 220 MG CAP PO SCH (18:09)
[2019-01-14 18:44] LABS: Folate, Serum 14.1 ng/mL; Rheumatoid Factor <4 IU/mL (0-15)
[2019-01-14] MEDS: ESCITALOPRAM 10 MG TAB PO SCH (20:18)
[2019-01-14] MEDS: TAMSULOSIN 0.4 MG CAP.ER.24H PO SCH (20:19)
[2019-01-14] MEDS: ATORVASTATIN 40 MG TAB PO SCH (20:19)
[2019-01-14] MEDS: IPRATROPIUM-ALBUTEROL 3 ML NEB INHALATION PRN (20:37)
--- NOTE | 2019-01-14 20:38 | P.CONS ---
History of Present Illness - Reason for Consult Consult date: 01/14/19 Anemia Requesting physician: Wanda Lopez - Chief Complaint SOB - History of Present Illness Mr. Anderson is a 73 year old male patient with complicated medical history. He has known history of severe concentric mitral valve regurgitation with severely calcified mitral annulus, status post mitral valve repair on October 31, 2018. Complicated with postoperative transaminitis and paroxysmal atrial fibrillation, history of coronary artery disease with prior stenting of the LAD in September, chronic diastolic congestive heart failure, hypertension, hyperlipidemia, diabetes, peripheral neuropathy, chronic kidney disease, COPD, sleep apnea, pulmonary hypertension, prior nicotine dependence and recent history of bilateral lower extremities cellulitis status post antibiotic course at rehab, who is currently staying at home came with and help of his daughter. He presented to ER with complaints of generalized weakness fatigue and sleepiness. On admission Fever 100.9, Chest x-ray showed left pleural effusion. Probable area of pulmonary edema. Findings are suggestive of congestive heart failure and probable pneumonia, he was started on abx. P Patient was started on broad-spectrum antibiotics in the form of Levaquin and Zosyn in the ERHe is a poor historian, although family assisted. His hemoglobin today 6.8, therefore hematology has been asked to further evaluate. . Review of Systems Daughter assisted as she is at bedside during evaluation. Patient is a poor historian Past Medical History Past Medical History: Atrial Fibrillation, Coronary Artery Disease (CAD), Heart Failure, COPD, Diabetes Mellitus, Eye Disorder, Hyperlipidemia, Hypertension, Osteoarthritis (OA), Renal Disease, Sleep Apnea/CPAP/BIPAP Additional Past Medical History / Comment(s): SOB w/exertion,CATARACTS, sleep apnea without home CPAP use History of Any Multi-Drug Resistant Organisms: None Reported Past Surgical History: Adenoidectomy, Heart Catheterization, Heart Catheterization With Stent, Tonsillectomy Additional Past Surgical History / Comment(s): FAUSTINO,COLONOSCOPY, heart cath 09/11/18, heart catheterization 09/24/2018 with drug-eluting stent placed to the LAD mitral valve repair on 10/31/2018. Past Anesthesia/Blood Transfusion Reactions: No Reported Reaction Additional Past Anesthesia/Blood Transfusion Reaction / Comm: no hx blood transfusion Date of Last Stent Placement:: September 2018 Past Psychological History: No Psychological Hx Reported Additional Psychological History / Comment(s): Pt resides with his spouse. He uses no assistive device. He has not been driving d/t recent surgery, spouse can drive. Pt is receiving home care thru [facility]. Smoking Status: Former smoker Past Alcohol Use History: Rare Additional Past Alcohol Use History / Comment(s): Pt started smoking in 1958 and quit in 2007. He smoked pipe. Past Drug Use History: None Reported - Past Family History Father Family Medical History: Cancer, Diabetes Mellitus Additional Family Medical History / Comment(s): BLADDER CANCER Mother Family Medical History: Congestive Heart Failure (CHF) Additional Family Medical History / Comment(s): AT AGE 68 Medications and Allergies Home Medications Medication Instructions Recorded Confirmed Type Cholecalciferol [Vitamin D3 (25 2,000 unit PO DAILY@1700 01/04/16 01/09/19 History Mcg = 1000 Iu)] Ferrous Sulfate [Iron (65 MG 325 mg PO DAILY 01/04/16 01/09/19 History Elemental)] L.acidoph,Paracasei, B.lactis 1 cap PO DAILY@1700 01/04/16 01/09/19 History [Probiotic] Multivitamins, Thera [Multivitamin 1 tab PO DAILY@1700 01/09/17 01/09/19 History (formulary)] Zinc 50 mg PO DAILY@1700 07/17/18 01/09/19 History Albuterol Inhaler [Ventolin Hfa 1 - 2 puff INHALATION RT-Q6H PRN 11/11/18 01/09/19 Rx Inhaler] #1 inhaler Amiodarone [Cordarone] 200 mg PO DAILY #15 tab 11/11/18 01/09/19 Rx Insulin Detemir [Levemir Flextouch] 10 units SQ HS 30 Days #3 pen 11/11/18 01/09/19 Rx Aspirin 81 mg PO DAILY@1700 11/29/18 01/09/19 History Magnesium Hydroxide [Milk of 2,400 mg PO DAILY PRN 11/29/18 01/09/19 History Magnesia] Metoprolol Tartrate [Lopressor] 50 mg PO BID@0900,2100 11/29/18 01/09/19 History Na Phos,M-B/Na Phos,Di-Ba [Fleet 133 ml RECTAL DAILY PRN 11/29/18 01/09/19 History Adult] Acetaminophen-Codeine 300-30mg 1 - 2 tab PO Q6H PRN #6 tab 12/13/18 01/09/19 Rx [Tylenol w/codeine #3] Atorvastatin [Lipitor] 40 mg PO HS tab 12/13/18 01/09/19 Rx Escitalopram [Lexapro] 10 mg PO HS tab 12/13/18 01/09/19 Rx Pantoprazole [Protonix] 40 mg PO AC-BRKFST tablet. 12/13/18 01/09/19 Rx Acetaminophen Tab [Tylenol Tab] 650 mg PO Q4H PRN 12/23/18 01/09/19 History Clopidogrel [Plavix] 75 mg PO DAILY@00 12/23/18 01/09/19 History Darbepoetin Ruddy [Aranesp] 40 mcg SQ TU 12/23/18 01/09/19 History Furosemide [Lasix] 40 mg PO BID@0900,209912/23/18 01/09/19 History Gabapentin [Neurontin] 100 mg PO BID@00,209912/23/18 01/09/19 History INSULIN ASPART (NovoLOG) [NovoLOG See Protocol SQ ACHS 12/23/18 01/09/19 History (formulary)] Potassium Chloride [Klor-Con 20] 20 meq PO DAILY 12/23/18 01/09/19 History Sennosides-Docusate Sodium 2 tab PO BID 12/23/18 01/09/19 History [Senokot-S] Tamsulosin [Flomax] 0.4 mg PO HS 12/23/18 01/09/19 History traMADol HCL 50 mg PO Q6H PRN 12/23/18 01/09/19 History Cetirizine HCl [Zyrtec] 10 mg PO DAILY 01/09/19 01/09/19 History SILVER sulfADIAZINE Cream 1 applic TOPICAL HS 01/09/19 01/09/19 History [Silvadene 1% Cream] Allergies Allergy/AdvReac Type Severity Reaction Status Date / Time No Known Allergies Allergy Verified 01/09/19 21:16 Physical Exam Vitals: Vital Signs Temp Pulse Pulse Resp BP BP Pulse Ox 01/14/19 16:00 68 19 154/68 99 01/14/19 12:11 64 16 158/68 01/14/19 12:00 65 16 158/63 99 01/14/19 11:45 67 18 01/14/19 09:56 66 18 165/74 01/14/19 09:26 98.3 F 68 19 135/70 01/14/19 09:16 98.2 F 67 18 132/63 01/14/19 08:00 67 18 124/64 98 01/14/19 03:37 98.1 F 64 18 121/61 92 L 01/13/19 23:00 98.2 F 70 18 137/63 96 Intake and Output 01/14/19 01/14/19 01/14/19 06:59 14:59 22:59 Intake Total 550 120 Output Total 800 Balance 550 -680 Intake: Oral 240 120 Blood Product 310 Rc As-1 Unit 310 [id number] Output: Urine 800 Other: Voiding Method Indwelling Catheter Indwelling Catheter Indwelling Catheter # Voids 0 - Constitutional General appearance: average body habitus, no acute distress - EENT Eyes: poor dentition, normal appearance ENT: hard of hearing, NA/AT - Neck supple, no palpable adenopathy - Respiratory Respiratory: bilateral: diminished (lower lobes, no increased effort) - Cardiovascular Rhythm: regularly irregular - Gastrointestinal General gastrointestinal: normal bowel sounds, soft - Integumentary Integumentary: pale - Neurologic no noted focal defects Results CBC & Chem 7: 01/14/19 14:45 01/14/19 06:09 Labs: Abnormal Lab Results - Last 24 Hours (Table) 01/14/19 01/14/19 01/14/19 Range/Units 06:00 06:09 06:09 RBC 2.26 L (4.30-5.90) m/uL Hgb 6.8 L* (13.0-17.5) gm/dL Hct 23.1 L (39.0-53.0) % MCV 102.3 H (80.0-100.0) fL MCHC 29.2 L (31.0-37.0) g/dL RDW 18.6 H (11.5-15.5) % Lymphocytes # 0.6 L (1.0-4.8) k/uL Carbon Dioxide 38 H (22-30) mmol/L BUN 71 H (9-20) mg/dL Creatinine 1.67 H (0.66-1.25) mg/dL POC Glucose (mg/dL) 104 H (75-99) mg/dL Iron (65-175) ug/dL TIBC (228-460) ug/dL Ferritin (22.0-322.0) ng/mL Alkaline Phosphatase 134 H (38-126) U/L Lactate Dehydrogenase (313-618) U/L Total Protein 6.0 L (6.3-8.2) g/dL Albumin 2.8 L (3.5-5.0) g/dL Crossmatch 01/14/19 01/14/19 01/14/19 Range/Units 06:09 07:01 12:14 RBC (4.30-5.90) m/uL Hgb (13.0-17.5) gm/dL Hct (39.0-53.0) % MCV (80.0-100.0) fL MCHC (31.0-37.0) g/dL RDW (11.5-15.5) % Lymphocytes # (1.0-4.8) k/uL Carbon Dioxide (22-30) mmol/L BUN (9-20) mg/dL Creatinine (0.66-1.25) mg/dL POC Glucose (mg/dL) 130 H (75-99) mg/dL Iron 33 L (65-175) ug/dL TIBC 203 L (228-460) ug/dL Ferritin 728.8 H (22.0-322.0) ng/mL Alkaline Phosphatase (38-126) U/L Lactate Dehydrogenase (313-618) U/L Total Protein (6.3-8.2) g/dL Albumin (3.5-5.0) g/dL Crossmatch See Detail 01/14/19 01/14/19 01/14/19 Range/Units 14:45 14:45 16:35 RBC 2.56 L (4.30-5.90) m/uL Hgb 8.1 L (13.0-17.5) gm/dL Hct 25.4 L (39.0-53.0) % MCV (80.0-100.0) fL MCHC (31.0-37.0) g/dL RDW 18.1 H (11.5-15.5) % Lymphocytes # 0.6 L (1.0-4.8) k/uL Carbon Dioxide (22-30) mmol/L BUN (9-20) mg/dL Creatinine (0.66-1.25) mg/dL POC Glucose (mg/dL) 266 H (75-99) mg/dL Iron (65-175) ug/dL TIBC (228-460) ug/dL Ferritin (22.0-322.0) ng/mL Alkaline Phosphatase (38-126) U/L Lactate Dehydrogenase 1381 H (313-618) U/L Total Protein (6.3-8.2) g/dL Albumin (3.5-5.0) g/dL Crossmatch Microbiology - Last 24 Hours (Table) 01/09/19 21:51 Blood Culture - Preliminary Blood No Growth after 96 hours Assessment and Plan Plan: Macrocytic Anemia: Acute on Chronic: - Baseline hemoglobin since 2015 9-11g/dl - Likely multifactorial with component of Inflammation and chronic disease, CKD (per MR) - COmplete anemia work-up ordered - recent exposure to Mitral Valve Repair - recent Sepsis, Transiministis - CAD with Stent - Further recs to follow
[2019-01-14 21:05] LABS: Glucose,Whole Blood 247 mg/dL (75-99)
[2019-01-14] MEDS: INSULIN DETEMIR (LEVEMIR) 100 UNIT/ML SYR SQ SCH (22:11)
[2019-01-14 22:55] LABS: Protein, Total 5.9 g/dL (6.2-8.2)
--- NOTE | 2019-01-15 00:20 | P.PN ---
Subjective Progress Note Date: 01/14/19 Principal diagnosis: Acute exacerbation systolic CHF Acute renal injury possibly cardiorenal Bilateral lower extremity cellulitis Encephalopathy 73-year-old white male patient of Dr. Patel, with recent history of mitral valve repair for history of severe mitral valve regurgitation with severely calcified mitral valve annulus, status post complex mitral valve repair on 10/31/2018. Other medical history includes coronary artery disease with recent drug-eluting stent placement in the LAD in September 2018, chronic diastolic heart failure, hypertension, hyperlipidemia, type 2 diabetes mellitus with peripheral neuropathy, chronic kidney disease, moderately severe COPD, obstructive sleep apnea without home CPAP use, hypertension, obesity, previous tobacco dependence and paroxysmal atrial fibrillation. Following his surgery patient went to subacute rehab at [facility] for further rehabilitation related to significant weakness, and prolonged recovery postoperative mitral valve repair. Patient also had recent hospitalization in November for bilateral lower extremity cellulitis. Patient was treated with Zosyn and vancomycin, the swelling and the blistering have improved. 01/11/2019 Patient is seen and evaluated in room at bedside; patient complaints of difficulty sleeping; no other complaints; per nursing staff patient has been complaining of hallucinating during the night; no such complaints anymore Vital signs are reviewed and remained stable with a temperature of 97.5, pulse 62, respiration 18 and blood pressure 120/61 and SpO2 of 97% on 2 L Laboratory review shows a white blood count of 7.4, hemoglobin 7 and platelet count of 04/14/1989; sodium 139 and potassium of 4.6; BUN/creatinine has been slowly trending down from 2.7 yesterday down to 2.4; magnesium of 1.4; patient is started on electrolyte protocol; patient remains on IV diuretics per cardiology for acute exacerbation CHF and hydralazine is admitted; pulmonary service recommending to stop antibiotics for pneumonia; ID to see patient for trace of antibiotics for cellulitis 01/12/2019 Patient transferred to ICU yesterday- found to be lethargic and somewhat confused; patient's is awake alert and oriented this morning. Patient remains on IV Lasix 40 mg every 8 hours. He made excellent urine output and his net fluid balance is been negative more than 2.5 L over the past 24 hours. Chest x-ray shows improvement in the aeration. There is underlying cardiomegaly. Echocardiogram was repeated and it showed evidence of severe pulmonary hypertension. PA pressures were as high as 69. LV function showed an ejection fraction of 50-55%. RV was severely dilated. RA was mild a dilated. There was mild aortic regurgitation. Mild to moderate mitral regurgitation. Moderate mitral stenosis. Evidence of mitral valve repair. Peak and mean mitral valve gradients were 17 and 6 mmHg by Doppler. Severe pulmonary hypertension was noted. Inferior vena cava was mildly dilated. His proBNP was significantly elevated and he responded to diuretics. He was probably cardiorenal syndrome and his kidney function is also improving and the creatinine is down to 2.1. 01/13/2019 Patient is seen and evaluated in ICU this follow-up sitting up in bedside chair Patient remains on Lasix 40 mg IV every 8 hours with fair urine output and a negative fluid balance over past 24 hours Labs show improvement in creatinine; hemoglobin remained stable at 7.1; no signs of overt bleeding; repeat chest x-ray shows CHF and cardiomegaly; repeat echocardiogram shows an ejection fraction of 50-55% with severe pulmonary hypertension 01/14/2019 Patient is currently lying in the bed comfortably. No complaints of chest pain. Patient still having shortness of breath. Currently saturating well on 2 L nausea cannula oxygen. No complaints of chest pain. Leg swelling is improving. Currently on oral Lasix for 80 mg twice daily. Otherwise patient's hemoglobin came down to 6.8 today. Patient was given 1 unit PRBC and hematology was consulted due to chronic anemia Renal function is improving. Otherwise patient does have generalized weakness and PTOT was consulted. Patient will need rehab transfer Active Medications Acetaminophen (Tylenol Tab) 650 mg PO Q6H PRN PRN Reason: Mild Pain Last Admin: 01/14/19 22:12 Dose: 650 mg Documented by: Albuterol/Ipratropium (Duoneb 0.5 Mg-3 Mg/3 Ml Soln) 3 ml INHALATION RT-Q4H PRN PRN Reason: shortness of breath Last Admin: 01/14/19 20:37 Dose: 3 ml Documented by: Amiodarone HCl (Cordarone) 100 mg PO DAILY [facility] Last Admin: 01/14/19 10:16 Dose: 100 mg Documented by: Aspirin (Aspirin) 81 mg PO DAILY@1700 [facility] Last Admin: 01/14/19 16:11 Dose: 81 mg Documented by: Atorvastatin Calcium (Lipitor) 40 mg PO HS [facility] Last Admin: 01/14/19 20:19 Dose: 40 mg Documented by: Cholecalciferol (Vitamin D3 (25 Mcg = 1000 Iu)) 2,000 unit PO DAILY@1700 [facility] Last Admin: 01/14/19 16:11 Dose: 2,000 unit Documented by: Clopidogrel Bisulfate (Plavix) 75 mg PO DAILY@0900 [facility] Last Admin: 01/14/19 09:26 Dose: 75 mg Documented by: Darbepoetin Ruddy (Aranesp) 40 mcg SQ [facility]U [facility] Escitalopram Oxalate (Lexapro) 10 mg PO [facility] Last Admin: 01/14/19 20:18 Dose: 10 mg Documented by: Furosemide (Lasix) 80 mg PO BID@0900,1600 [facility] Last Admin: 01/14/19 16:11 Dose: 80 mg Documented by: Gabapentin (Neurontin) 100 mg PO BID@0900,2100 [facility] Last Admin: 01/14/19 20:19 Dose: 100 mg Documented by: Heparin Sodium (Porcine) (Heparin) 5,000 unit SQ Q8HR [facility] Last Admin: 01/14/19 22:11 Dose: 5,000 unit Documented by: Hydralazine HCl (Apresoline) 25 mg PO BID [facility] Last Admin: 01/14/19 20:19 Dose: 25 mg Documented by: Insulin Aspart (Novolog) 0 unit SQ [facility]; Protocol Last Admin: 01/14/19 22:11 Dose: 4 unit Documented by: Insulin Detemir (Levemir) 12 unit SQ [facility] Last Admin: 01/14/19 22:11 Dose: 12 unit Documented by: Lactobacillus Acidoph/Bulgaricus (Lactinex) 1 each PO DAILY@1700 [facility] Last Admin: 01/14/19 16:11 Dose: 1 each Documented by: Magnesium Hydroxide (Milk Of Magnesia) 2,400 mg PO DAILY PRN PRN Reason: Constipation Metoprolol Tartrate (Lopressor) 50 mg PO BID@0900,2100 [facility] Last Admin: 01/14/19 20:19 Dose: 50 mg Documented by: Miscellaneous Information (Pneumonia Protocol Utilized) 1 each PO ONCE PRN PRN Reason: Per Protocol Miscellaneous Information (Magnesium Per Protocol) 1 each MISCELLANE DAILY PRN; Protocol PRN Reason: Per Protocol Multivitamins (Theragran) 1 each PO DAILY@1700 [facility] Last Admin: 01/14/19 16:11 Dose: 1 each Documented by: Naloxone HCl (Narcan) 0.2 mg IV Q2M PRN PRN Reason: Opioid Reversal Pantoprazole Sodium (Protonix) 40 mg PO [facility] Last Admin: 01/14/19 06:00 Dose: 40 mg Documented by: Senna/Docusate Sodium (Senokot-S) 2 each PO BID [facility] Last Admin: 01/14/19 20:19 Dose: 2 each Documented by: Silver Sulfadiazine (Silvadene Cream) 1 applic TOPICAL [facility] Last Admin: 01/14/19 20:20 Dose: 1 applic Documented by: Spironolactone (Aldactone) 25 mg PO DAILY [facility] Last Admin: 01/14/19 09:25 Dose: 25 mg Documented by: Tamsulosin HCl (Flomax) 0.4 mg PO [facility] Last Admin: 01/14/19 20:19 Dose: 0.4 mg Documented by: Zinc Sulfate (Orazinc) 220 mg PO DAILY@1700 [facility] Last Admin: 01/14/19 18:09 Dose: Not Given Documented by: Objective - Vital Signs Vital signs: Vital Signs Temp 97.8 F 01/14/19 20:00 Pulse 72 01/14/19 20:45 Resp 16 01/14/19 20:45 BP 154/79 01/14/19 20:00 Pulse Ox 97 01/14/19 20:38 Intake & Output 01/14/19 01/14/19 01/15/19 06:59 18:59 06:59 Intake Total 670 Output Total 800 Balance -130 Intake: Oral 360 Blood Product 310 Rc As-1 Unit 310 [id number] Output: Urine 800 Other: Voiding Method Indwelling Catheter Indwelling Catheter Indwelling Catheter # Voids 0 - Exam HEAD: Normocephalic/atraumatic. EYES: Normal reaction of pupils, equal size. Conjunctiva pink, sclera white. NOSE: Clear with pink turbinates. THROAT: No erythema or exudates. NECK: No masses, no JVD, no thyroid enlargement, no adenopathy. CHEST: No chest wall deformity. Symmetrical expansion. LUNGS: Equal air entry with diffuse crackles, but no wheeze, rhonchi or dullness. CVS: Regular rate and rhythm, normal S1 and S2, no gallops, no murmurs, no rubs ABDOMEN: Soft, nontender. No hepatosplenomegaly, normal bowel sounds, no guarding or rigidity. EXTREMITIES: No clubbing, bilateral lower extremity edema, and small healing blisters on his anterior shins, and his bilateral feet with no significant surrounding erythema or warmth, no cyanosis, 2+ pulses and upper and lower extremities. Both lower extremities are Zi wrapped - Labs CBC & Chem 7: 01/14/19 14:45 01/14/19 06:09 Labs: Abnormal Lab Results - Last 24 Hours (Table) 01/14/19 01/14/19 01/14/19 Range/Units 06:00 06:09 06:09 RBC 2.26 L (4.30-5.90) m/uL Hgb 6.8 L* (13.0-17.5) gm/dL Hct 23.1 L (39.0-53.0) % MCV 102.3 H (80.0-100.0) fL MCHC 29.2 L (31.0-37.0) g/dL RDW 18.6 H (11.5-15.5) % Lymphocytes # 0.6 L (1.0-4.8) k/uL Carbon Dioxide 38 H (22-30) mmol/L BUN 71 H (9-20) mg/dL Creatinine 1.67 H (0.66-1.25) mg/dL POC Glucose (mg/dL) 104 H (75-99) mg/dL Iron (65-175) ug/dL TIBC (228-460) ug/dL Ferritin (22.0-322.0) ng/mL Alkaline Phosphatase 134 H (38-126) U/L Lactate Dehydrogenase (313-618) U/L Total Protein 6.0 L (6.3-8.2) g/dL Albumin 2.8 L (3.5-5.0) g/dL Crossmatch 01/14/19 01/14/19 01/14/19 Range/Units 06:09 07:01 12:14 RBC (4.30-5.90) m/uL Hgb (13.0-17.5) gm/dL Hct (39.0-53.0) % MCV (80.0-100.0) fL MCHC (31.0-37.0) g/dL RDW (11.5-15.5) % Lymphocytes # (1.0-4.8) k/uL Carbon Dioxide (22-30) mmol/L BUN (9-20) mg/dL Creatinine (0.66-1.25) mg/dL POC Glucose (mg/dL) 130 H (75-99) mg/dL Iron 33 L (65-175) ug/dL TIBC 203 L (228-460) ug/dL Ferritin 728.8 H (22.0-322.0) ng/mL Alkaline Phosphatase (38-126) U/L Lactate Dehydrogenase (313-618) U/L Total Protein (6.3-8.2) g/dL Albumin (3.5-5.0) g/dL Crossmatch See Detail 01/14/19 01/14/19 01/14/19 Range/Units 14:45 14:45 16:35 RBC 2.56 L (4.30-5.90) m/uL Hgb 8.1 L (13.0-17.5) gm/dL Hct 25.4 L (39.0-53.0) % MCV (80.0-100.0) fL MCHC (31.0-37.0) g/dL RDW 18.1 H (11.5-15.5) % Lymphocytes # 0.6 L (1.0-4.8) k/uL Carbon Dioxide (22-30) mmol/L BUN (9-20) mg/dL Creatinine (0.66-1.25) mg/dL POC Glucose (mg/dL) 266 H (75-99) mg/dL Iron (65-175) ug/dL TIBC (228-460) ug/dL Ferritin (22.0-322.0) ng/mL Alkaline Phosphatase (38-126) U/L Lactate Dehydrogenase 1381 H (313-618) U/L Total Protein (6.3-8.2) g/dL Albumin (3.5-5.0) g/dL Crossmatch 01/14/19 Range/Units 21:04 RBC (4.30-5.90) m/uL Hgb (13.0-17.5) gm/dL Hct (39.0-53.0) % MCV (80.0-100.0) fL MCHC (31.0-37.0) g/dL RDW (11.5-15.5) % Lymphocytes # (1.0-4.8) k/uL Carbon Dioxide (22-30) mmol/L BUN (9-20) mg/dL Creatinine (0.66-1.25) mg/dL POC Glucose (mg/dL) 247 H (75-99) mg/dL Iron (65-175) ug/dL TIBC (228-460) ug/dL Ferritin (22.0-322.0) ng/mL Alkaline Phosphatase (38-126) U/L Lactate Dehydrogenase (313-618) U/L Total Protein (6.3-8.2) g/dL Albumin (3.5-5.0) g/dL Crossmatch Microbiology - Last 24 Hours (Table) 01/09/19 21:51 Blood Culture - Preliminary Blood No Growth after 96 hours Assessment and Plan Assessment: Generalized weakness, lethargy and altered mental status likely due to metabolic encephalopathy. Improving now Acute on chronic kidney disease stage III. Baseline creatinine around 1.1. Creatinine 2.86 on admission. Improving Acute on chronic CHF with diastolic dysfunction. Currently on oral Lasix. Mild hyperkalemia due to acute kidney injury and also potassium supplementation at home Recent history of bilateral lower extremities cellulitis Status post antibiotic course at rehab Chronic Anemia/anemia of chronic disease Possible right lower lobe pneumonia. Low suspicion. Patient does have T-max 100.9 and no leukocytosis. Currently patient is afebrile. Severe mitral regurgitation with severely calcified mitral annulus. 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 Repeat CBC and BMP was ordered. Continue the home medications and avoid hypotension. Avoid nephrotoxic medications. Nephrology and pulmonary is following. Follow-up renal function PTOT will be consulted. Prognosis is guarded with multiple medical problems and comorbid conditions. Time with Patient: Greater than 30
[2019-01-15 06:24] LABS: Glucose,Whole Blood 151 mg/dL (75-99)
[2019-01-15] MEDS: INSULIN ASPART (NovoLOG) 100 UNIT/ML VIAL SQ SCH ×4 (06:33→21:37)
[2019-01-15] MEDS: PANTOPRAZOLE 40 MG TABLET PO SCH (06:37)
--- NOTE | 2019-01-15 08:34 | XR ---
EXAMINATION TYPE: XR chest 2V DATE OF EXAM: 01/15/2019 COMPARISON: 01/13/2019 HISTORY: 73-year-old male follow-up shortness of breath TECHNIQUE: AP and lateral views FINDINGS: Median sternotomy wires. Heart is mildly enlarged. Continued interstitial and vascular opacities now with suggestion of a small left pleural effusion. IMPRESSION: Continued mild cardiomegaly with diffuse interstitial changes and now with a small left pleural effus ion. Correlate for CHF with mild interstitial edema.
[2019-01-15 08:45] LABS: Anisocytosis Slight; Basophils % (A) 1 %; Eosinophils # (A) 0.7 k/uL (0-0.7); Eosinophils % (A) 9 %; HGB 8.1 gm/dL (13.0-17.5); Hypochromasia Marked; Lymphocytes # (A) 0.6 k/uL (1.0-4.8); Lymphocytes % (A) 7 %; MCH 30.8 pg (25.0-35.0); MCV 99.3 fL (80.0-100.0); Macrocytosis Slight; Monocytes # (A) 0.5 k/uL (0-1.0); Monocytes % (A) 6 %; Neutrophils # (A) 5.9 k/uL (1.3-7.7); Neutrophils % (A) 76 %; Platelet Count 212 k/uL (150-450); Poikilocytosis Slight; RBC 2.62 m/uL (4.30-5.90); RDW 17.8 % (11.5-15.5); WBC 7.7 k/uL (3.8-10.6)
[2019-01-15 09:10] LABS: Calcium 8.6 mg/dL (8.4-10.2); Magnesium 1.4 mg/dL (1.6-2.3); Potassium 3.9 mmol/L (3.5-5.1)
[2019-01-15] MEDS: ACETAMINOPHEN TAB 325 MG TAB PO PRN ×2 (09:55→21:39)
[2019-01-15] MEDS: hydrALAZINE HCL 25 MG TAB PO SCH ×2 (09:56→21:37)
[2019-01-15] MEDS: FUROSEMIDE 80 MG TAB PO SCH (09:56)
[2019-01-15] MEDS: CLOPIDOGREL 75 MG TAB PO SCH (09:56)
[2019-01-15] MEDS: GABAPENTIN 100 MG CAP PO SCH ×2 (09:56→21:37)
[2019-01-15] MEDS: HEPARIN SODIUM,PORCINE 5,000 UNIT/ML 1 ML VIAL SQ SCH ×3 (09:56→23:04)
[2019-01-15] MEDS: SPIRONOLACTONE 25 MG TAB PO SCH (09:56)
[2019-01-15] MEDS: METOPROLOL TARTRATE 50 MG TAB PO SCH ×2 (09:56→21:37)
[2019-01-15] MEDS: SENNOSIDES-DOCUSATE SODIUM 1 EACH TAB PO SCH ×2 (09:56→21:37)
[2019-01-15] MEDS: AMIODARONE 100 MG TAB PO SCH (09:57)
[2019-01-15] MEDS: DARBEPOETIN ALFA 40 MCG/0.4 ML SYRINGE SQ SCH (11:19)
--- NOTE | 2019-01-15 11:29 | P.PN ---
Subjective Progress Note Date: 01/15/19 Principal diagnosis: Anemia - SYmptomatic Hemoglobin 8.1 today. Stable Objective - Vital Signs Vital signs: Vital Signs Temp 97.8 F 01/14/19 20:00 Pulse 63 01/15/19 03:35 Resp 17 01/15/19 03:35 BP 156/78 01/15/19 03:35 Pulse Ox 97 01/15/19 03:35 Intake & Output 01/14/19 01/15/19 01/15/19 18:59 06:59 18:59 Intake Total 670 240 Output Total 800 1625 Balance -130 -1625 240 Weight 104 kg Intake: Oral 360 240 Blood Product 310 Rc As-1 Unit 310 [id number] Output: Urine 800 1625 Other: Voiding Method Indwelling Catheter Indwelling Catheter # Voids 0 1 # Bowel Movements 1 - Exam - Constitutional General appearance: average body habitus, no acute distress - EENT Eyes: poor dentition, normal appearance ENT: hard of hearing, NA/AT - Neck supple, no palpable adenopathy - Respiratory Respiratory: bilateral: diminished (lower lobes, no increased effort) - Cardiovascular Rhythm: regularly irregular - Gastrointestinal General gastrointestinal: normal bowel sounds, soft - Integumentary Integumentary: pale - Neurologic no noted focal defects - Labs CBC & Chem 7: 01/15/19 08:23 01/15/19 08:23 Labs: Abnormal Lab Results - Last 24 Hours (Table) 01/14/19 01/14/19 01/14/19 Range/Units 06:09 07:01 12:14 RBC (4.30-5.90) m/uL Hgb (13.0-17.5) gm/dL Hct (39.0-53.0) % RDW (11.5-15.5) % Lymphocytes # (1.0-4.8) k/uL Carbon Dioxide (22-30) mmol/L BUN (9-20) mg/dL Creatinine (0.66-1.25) mg/dL Glucose (74-99) mg/dL POC Glucose (mg/dL) 130 H (75-99) mg/dL Magnesium (1.6-2.3) mg/dL Iron 33 L (65-175) ug/dL TIBC 203 L (228-460) ug/dL Ferritin 728.8 H (22.0-322.0) ng/mL Lactate Dehydrogenase (313-618) U/L Total Protein (PEP) (6.2-8.2) g/dL Crossmatch See Detail 01/14/19 01/14/19 01/14/19 Range/Units 14:45 14:45 14:45 RBC 2.56 L (4.30-5.90) m/uL Hgb 8.1 L (13.0-17.5) gm/dL Hct 25.4 L (39.0-53.0) % RDW 18.1 H (11.5-15.5) % Lymphocytes # 0.6 L (1.0-4.8) k/uL Carbon Dioxide (22-30) mmol/L BUN (9-20) mg/dL Creatinine (0.66-1.25) mg/dL Glucose (74-99) mg/dL POC Glucose (mg/dL) (75-99) mg/dL Magnesium (1.6-2.3) mg/dL Iron (65-175) ug/dL TIBC (228-460) ug/dL Ferritin (22.0-322.0) ng/mL Lactate Dehydrogenase 1381 H (313-618) U/L Total Protein (PEP) 5.9 L (6.2-8.2) g/dL Crossmatch 01/14/19 01/14/19 01/15/19 Range/Units 16:35 21:04 06:23 RBC (4.30-5.90) m/uL Hgb (13.0-17.5) gm/dL Hct (39.0-53.0) % RDW (11.5-15.5) % Lymphocytes # (1.0-4.8) k/uL Carbon Dioxide (22-30) mmol/L BUN (9-20) mg/dL Creatinine (0.66-1.25) mg/dL Glucose (74-99) mg/dL POC Glucose (mg/dL) 266 H 247 H 151 H (75-99) mg/dL Magnesium (1.6-2.3) mg/dL Iron (65-175) ug/dL TIBC (228-460) ug/dL Ferritin (22.0-322.0) ng/mL Lactate Dehydrogenase (313-618) U/L Total Protein (PEP) (6.2-8.2) g/dL Crossmatch 01/15/19 01/15/19 Range/Units 08:23 08:23 RBC 2.62 L (4.30-5.90) m/uL Hgb 8.1 L (13.0-17.5) gm/dL Hct 26.0 L (39.0-53.0) % RDW 17.8 H (11.5-15.5) % Lymphocytes # 0.6 L (1.0-4.8) k/uL Carbon Dioxide 37 H (22-30) mmol/L BUN 65 H (9-20) mg/dL Creatinine 1.39 H (0.66-1.25) mg/dL Glucose 180 H (74-99) mg/dL POC Glucose (mg/dL) (75-99) mg/dL Magnesium 1.4 L (1.6-2.3) mg/dL Iron (65-175) ug/dL TIBC (228-460) ug/dL Ferritin (22.0-322.0) ng/mL Lactate Dehydrogenase (313-618) U/L Total Protein (PEP) (6.2-8.2) g/dL Crossmatch Microbiology - Last 24 Hours (Table) 01/09/19 21:51 Blood Culture - Preliminary Blood No Growth after 120 hours Assessment and Plan Plan: Macrocytic Anemia: Acute on Chronic: - Baseline hemoglobin since 2015 9-11g/dl - Likely multifactorial with component of Inflammation and chronic disease, CKD (per MR) - COmplete anemia work-up ordered: Reviewed Iron studies and B12, unsure if drawn after transfusion can repeat outputpatient - Still awaiting full work-up and Erythropoetin level. - recent exposure to Mitral Valve Repair - recent Sepsis, Transiministis - CAD with Stent - Further recs to follow Physician Attest; I have completed the full history and physical of this patient and agree with above dictation, dictated as a scribe
--- NOTE | 2019-01-15 12:22 | P.PN ---
Subjective Patient is seen in follow-up for acute kidney injury. Renal function is improving. Creatinine 1.39 today. No vomiting or diarrhea. Currently guillermo ntained on Lasix 80 mg orally twice daily. Urine output has been good. Denies active chest pain or shortness of breath. Edema improving. Status post blood transfusion on January 14. Hemoglobin 8.1 today. Vital signs are stable. General: The patient appeared well nourished and normally developed. HEENT: Head exam is unremarkable. Neck is without jugular venous distension. LUNGS: Breath sounds decreased. HEART: Rate and Rhythm are regular. First and second heart sounds normal. No murmurs, rubs or gallops. ABDOMEN: Abdominal exam reveals normal bowel sounds. Non-tender and non- distended. EXTREMITITES: Trace edema. Objective - Vital Signs Vital signs: Vital Signs Temp 97.8 F 01/14/19 20:00 Pulse 63 01/15/19 03:35 Resp 17 01/15/19 03:35 BP 156/78 01/15/19 03:35 Pulse Ox 97 01/15/19 03:35 Intake & Output 01/14/19 01/15/19 01/15/19 18:59 06:59 18:59 Intake Total 670 240 Output Total 800 1625 Balance -130 -1625 240 Weight 104 kg Intake: Oral 360 240 Blood Product 310 Rc As-1 Unit 310 [id number] Output: Urine 800 1625 Other: Voiding Method Indwelling Catheter Indwelling Catheter # Voids 0 1 # Bowel Movements 1 - Labs CBC & Chem 7: 01/15/19 08:23 01/15/19 08:23 Labs: Abnormal Lab Results - Last 24 Hours (Table) 01/14/19 01/14/19 01/14/19 Range/Units 06:09 12:14 14:45 RBC (4.30-5.90) m/uL Hgb (13.0-17.5) gm/dL Hct (39.0-53.0) % RDW (11.5-15.5) % Lymphocytes # (1.0-4.8) k/uL Carbon Dioxide (22-30) mmol/L BUN (9-20) mg/dL Creatinine (0.66-1.25) mg/dL Glucose (74-99) mg/dL POC Glucose (mg/dL) 130 H (75-99) mg/dL Magnesium (1.6-2.3) mg/dL Iron 33 L (65-175) ug/dL TIBC 203 L (228-460) ug/dL Erythropoietin (2.00-30.00) mIU/mL Ferritin 728.8 H (22.0-322.0) ng/mL Lactate Dehydrogenase 1381 H (313-618) U/L Total Protein (PEP) (6.2-8.2) g/dL 01/14/19 01/14/19 01/14/19 Range/Units 14:45 14:45 14:45 RBC 2.56 L (4.30-5.90) m/uL Hgb 8.1 L (13.0-17.5) gm/dL Hct 25.4 L (39.0-53.0) % RDW 18.1 H (11.5-15.5) % Lymphocytes # 0.6 L (1.0-4.8) k/uL Carbon Dioxide (22-30) mmol/L BUN (9-20) mg/dL Creatinine (0.66-1.25) mg/dL Glucose (74-99) mg/dL POC Glucose (mg/dL) (75-99) mg/dL Magnesium (1.6-2.3) mg/dL Iron (65-175) ug/dL TIBC (228-460) ug/dL Erythropoietin 57.84 H (2.00-30.00) mIU/mL Ferritin (22.0-322.0) ng/mL Lactate Dehydrogenase (313-618) U/L Total Protein (PEP) 5.9 L (6.2-8.2) g/dL 01/14/19 01/14/19 01/15/19 Range/Units 16:35 21:04 06:23 RBC (4.30-5.90) m/uL Hgb (13.0-17.5) gm/dL Hct (39.0-53.0) % RDW (11.5-15.5) % Lymphocytes # (1.0-4.8) k/uL Carbon Dioxide (22-30) mmol/L BUN (9-20) mg/dL Creatinine (0.66-1.25) mg/dL Glucose (74-99) mg/dL POC Glucose (mg/dL) 266 H 247 H 151 H (75-99) mg/dL Magnesium (1.6-2.3) mg/dL Iron (65-175) ug/dL TIBC (228-460) ug/dL Erythropoietin (2.00-30.00) mIU/mL Ferritin (22.0-322.0) ng/mL Lactate Dehydrogenase (313-618) U/L Total Protein (PEP) (6.2-8.2) g/dL 01/15/19 01/15/19 Range/Units 08:23 08:23 RBC 2.62 L (4.30-5.90) m/uL Hgb 8.1 L (13.0-17.5) gm/dL Hct 26.0 L (39.0-53.0) % RDW 17.8 H (11.5-15.5) % Lymphocytes # 0.6 L (1.0-4.8) k/uL Carbon Dioxide 37 H (22-30) mmol/L BUN 65 H (9-20) mg/dL Creatinine 1.39 H (0.66-1.25) mg/dL Glucose 180 H (74-99) mg/dL POC Glucose (mg/dL) (75-99) mg/dL Magnesium 1.4 L (1.6-2.3) mg/dL Iron (65-175) ug/dL TIBC (228-460) ug/dL Erythropoietin (2.00-30.00) mIU/mL Ferritin (22.0-322.0) ng/mL Lactate Dehydrogenase (313-618) U/L Total Protein (PEP) (6.2-8.2) g/dL Microbiology - Last 24 Hours (Table) 01/09/19 21:51 Blood Culture - Preliminary Blood No Growth after 120 hours Assessment and Plan Plan: Assessment: 1. Acute kidney injury mostly prerenal secondary to cardiorenal syndrome. Renal function improving. Creatinine 1.39 today. 2. 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 3. Volume overload. Improving with diuresis. 4. Anemia. Stool for occult blood negative. Iron deficiency noted. No active bleeding. Also on aranesp. Status post blood transfusion on January 14. 5. Acute on chronic diastolic CHF with mild to moderate mitral regurgitation, moderate tricuspid regurgitation and severe pulmonary hypertension. 6. Hypomagnesemia secondary to diuresis. 7. Insulin-dependent diabetes mellitus. Plan: Maintain Lasix 80 mg orally twice daily. Replace magnesium. 2 g IV today. IV iron 3 doses. First dose today. Avoid nephrotoxins. Repeat electrolytes in the morning.
[2019-01-15 12:23] LABS: Glucose,Whole Blood 133 mg/dL (75-99)
[2019-01-15] MEDS: IPRATROPIUM-ALBUTEROL 3 ML NEB INHALATION PRN (12:26)
[2019-01-15] MEDS: SODIUM FERRIC GLUCONAT-SUCROSE 125 MG in SODIUM CHLORIDE 0.9% 100 ML IVPB SCH (15:11)
[2019-01-15] MEDS: MAGNESIUM SULFATE-D5W PMX 1 GM in DEXTROSE/WATER 1 100ML.BAG IVPB SCH ×2 (15:12→17:06)
--- NOTE | 2019-01-15 15:32 | P.PN ---
Subjective Progress Note Date: 01/15/19 Patient is a 73-year-old male with a past medical history significant for CAD status post stenting, COPD, chronic diastolic heart failure, mitral valve disease status post mitral valve repair, COPD, HENRY, diabetes and CKD who presented with complaints of shortness of breath. He was admitted for treatment of CHF exacerbation and was started on IV Lasix. Patient diuresed well through the night last night although his weight is not reflective of this. Creatinine improving, 1.6 today, BUN 71. Hemoglobin today down to 6.8. Blood pressure 165/74 with a heart rate in the 60s, normal LV function. Overall the patient feels significantly better. We will discontinue the IV Lasix and change to Lasix 80 mg 1 tablet by mouth twice a day. Consult Dr. Parish regarding anemia. 01/15/2019 Patient was seen and examined today sitting up in the chair at bedside. Continues to feel short of breath but did state that he is feeling a little better. Repeat chest x-ray performed today showed continued mild cardiomegaly with persistent CHF and mild interstitial edema. Blood pressure 156/78 with a heart rate in the 60s, 97% on 2 L of oxygen. White blood cell count 7.7, hemoglobin 8.1, platelet count 212. Sodium 141, potassium 3.9, BUN 65 and creatinine 1.3. Magnesium 1.4 today. Objective - Vital Signs Vital signs: Vital Signs Temp 97.8 F 01/14/19 20:00 Pulse 72 01/15/19 12:35 Resp 17 01/15/19 03:35 BP 156/78 01/15/19 03:35 Pulse Ox 97 01/15/19 03:35 Intake & Output 01/14/19 01/15/19 01/15/19 18:59 06:59 18:59 Intake Total 670 480 Output Total 800 1625 Balance -130 -1625 480 Weight 104 kg Intake: Oral 360 480 Blood Product 310 Rc As-1 Unit 310 [id number] Output: Urine 800 1625 Other: Voiding Method Indwelling Catheter Indwelling Catheter # Voids 0 1 # Bowel Movements 1 - Exam Patient seen and examined sitting up in bed, in no acute distress Lungs diminished with few crackles Heart is regular, systolic murmur audible No elevated JVD appreciated Lower extremities are wrapped with a dressing and Zi wrap, Trace lower extremity edema - Labs CBC & Chem 7: 01/15/19 08:23 01/15/19 08:23 Labs: Abnormal Lab Results - Last 24 Hours (Table) 01/14/19 01/14/19 01/14/19 Range/Units 06:09 14:45 14:45 RBC (4.30-5.90) m/uL Hgb (13.0-17.5) gm/dL Hct (39.0-53.0) % RDW (11.5-15.5) % Lymphocytes # (1.0-4.8) k/uL Carbon Dioxide (22-30) mmol/L BUN (9-20) mg/dL Creatinine (0.66-1.25) mg/dL Glucose (74-99) mg/dL POC Glucose (mg/dL) (75-99) mg/dL Magnesium (1.6-2.3) mg/dL Iron 33 L (65-175) ug/dL TIBC 203 L (228-460) ug/dL Erythropoietin 57.84 H (2.00-30.00) mIU/mL Ferritin 728.8 H (22.0-322.0) ng/mL Total Protein (PEP) 5.9 L (6.2-8.2) g/dL Free [place] LC, Quant 18.80 H (0.33-1.94) mg/dL Free Lambda LC, Quant 6.59 H (0.57-2.63) mg/dL 01/14/19 01/14/19 01/15/19 Range/Units 16:35 21:04 06:23 RBC (4.30-5.90) m/uL Hgb (13.0-17.5) gm/dL Hct (39.0-53.0) % RDW (11.5-15.5) % Lymphocytes # (1.0-4.8) k/uL Carbon Dioxide (22-30) mmol/L BUN (9-20) mg/dL Creatinine (0.66-1.25) mg/dL Glucose (74-99) mg/dL POC Glucose (mg/dL) 266 H 247 H 151 H (75-99) mg/dL Magnesium (1.6-2.3) mg/dL Iron (65-175) ug/dL TIBC (228-460) ug/dL Erythropoietin (2.00-30.00) mIU/mL Ferritin (22.0-322.0) ng/mL Total Protein (PEP) (6.2-8.2) g/dL Free [place] LC, Quant (0.33-1.94) mg/dL Free Lambda LC, Quant (0.57-2.63) mg/dL 01/15/19 01/15/19 01/15/19 Range/Units 08:23 08:23 12:18 RBC 2.62 L (4.30-5.90) m/uL Hgb 8.1 L (13.0-17.5) gm/dL Hct 26.0 L (39.0-53.0) % RDW 17.8 H (11.5-15.5) % Lymphocytes # 0.6 L (1.0-4.8) k/uL Carbon Dioxide 37 H (22-30) mmol/L BUN 65 H (9-20) mg/dL Creatinine 1.39 H (0.66-1.25) mg/dL Glucose 180 H (74-99) mg/dL POC Glucose (mg/dL) 133 H (75-99) mg/dL Magnesium 1.4 L (1.6-2.3) mg/dL Iron (65-175) ug/dL TIBC (228-460) ug/dL Erythropoietin (2.00-30.00) mIU/mL Ferritin (22.0-322.0) ng/mL Total Protein (PEP) (6.2-8.2) g/dL Free [place] LC, Quant (0.33-1.94) mg/dL Free Lambda LC, Quant (0.57-2.63) mg/dL Microbiology - Last 24 Hours (Table) 01/09/19 21:51 Blood Culture - Preliminary Blood No Growth after 120 hours Assessment and Plan Plan: Assessment and plan #1 Acute on chronic combined systolic and diastolic heart failure, most recent echo showing EF 50-55%, diuresing well. #2 History of valvular heart disease status post mitral valve replacement, echocardiogram showing mild to moderate MR and moderate MS following mitral valve repair, normal LV function #3 CAD status post recent stent placement #4 chronic kidney disease , creatinine improving, nephrology following #5 COPD #6 Anemia, hemoglobin 6.8 today #7 Severe pulmonary hypertension #8 Hypertension #9 Dyslipidemia #10 Diabetes #11 Former smoker Plan We will continue the IV Lasix .We also recommend consultation with Dr. Parish for anemia. Check lytes BUN and creatinine in the morning. The patient was also seen in consultation by hematology who are doing a workup for anemia. DNP note has been reviewed, I agree with a documented findings and plan of care. Patient was seen and examined.
[2019-01-15 16:52] LABS: Glucose,Whole Blood 231 mg/dL (75-99)
[2019-01-15] MEDS: LACTOBACILLUS ACIDOPH & BULGAR 1 EACH PACKET PO SCH (17:05)
[2019-01-15] MEDS: ZINC SULFATE 220 MG CAP PO SCH (17:05)
[2019-01-15] MEDS: MULTIVITAMINS, THERA 1 EACH TAB PO SCH (17:06)
[2019-01-15] MEDS: CHOLECALCIFEROL 1,000 UNIT TAB PO SCH (17:06)
[2019-01-15] MEDS: ASPIRIN 81 MG PO SCH (17:06)
[2019-01-15 20:32] LABS: Glucose,Whole Blood 273 mg/dL (75-99)
[2019-01-15] MEDS: ATORVASTATIN 40 MG TAB PO SCH (21:36)
[2019-01-15] MEDS: FUROSEMIDE 10 MG/ML 4 ML VIAL IV SCH (21:36)
[2019-01-15] MEDS: TAMSULOSIN 0.4 MG CAP.ER.24H PO SCH (21:37)
[2019-01-15] MEDS: ESCITALOPRAM 10 MG TAB PO SCH (21:37)
[2019-01-15] MEDS: INSULIN DETEMIR (LEVEMIR) 100 UNIT/ML SYR SQ SCH (21:37)
--- NOTE | 2019-01-15 22:59 | P.PN ---
Subjective Progress Note Date: 01/15/19 This is a 73-year-old male well-known to ID service as he was recently seen following his extensive mitral valve repair for his mitral stenosis and also repair of ruptured chordae tendon a. Prior to the finding of severe mitral stenosis he did have coronary disease and a percutaneous intervention occurred with stenting of a drug-eluting type. Afterward the open heart procedure occurred. Due to his weakness has been recovering at the extended care facility. Patient was [facility] Monday and is currently living at home with his . Patient has developed increasing fatigue along with shortness of breath increased somnolence decreased appetite. Temperature max 100.9, initial white count 11.4 with repeated 8.4. Lactic acid 1.2 Patient presented with acute kidney injury from [facility] with BUN of 91 and creatinine 2.86, potassium 5.4. ProBNP 16,800, urinalysis cloudy with nitrate and leukoesterase negative. Influenza testing negative. Blood culture currently showing no g rowth at 24 hours. Chest x-ray confirmed a heart failure. According to his nurse, he has had more confusion this morning but did not sleep last night. He is followed by nephrology for acute kidney injury and [facility] and in [facility] for acute systolic heart failure. He is currently on IV Lasix 40 mg every 8 hours. He states his lower extremity edema is improved but note patient continues to have edema. He states he was urinating every hour during the night. Patient knowledge is that he hasn't some confusion and possible hallucinations during the night as well. There is a consult in place for cardiology regarding mitral valve repair and heart failure. 01/12/2019 the patient has had significant improvement. He has had distinct urinary output now with greater than 2 L negative balance today. This allowed him to be less short of breath, he is much less confused and not hallucinating today. Other than being weak he relates he feels better and has eaten somewhat better today. 01/15/2019 the patient is improved. His mentation is deathly improved. His affect is improved. He is able to converse, is less short of breath and is having no difficulty with eating. No fevers chills or rigors of been occurring. Objective - Vital Signs Vital signs: Vital Signs Temp 98.2 F 01/15/19 20:00 Pulse 76 10/22/19 20:00 Resp 19 01/15/19 20:00 BP 161/77 01/15/19 20:00 Pulse Ox 97 01/15/19 20:00 Intake & Output 01/15/19 01/15/19 01/16/19 06:59 18:59 06:59 Intake Total 720 120 Output Total 1625 700 Balance -1625 20 120 Weight 104 kg Intake: Oral 720 120 Output: Urine 1625 700 Other: Voiding Method Indwelling Catheter Indwelling Catheter Indwelling Catheter # Voids 1 # Bowel Movements 1 - Exam HEENT: Anicteric conjunctiva are pink and moist nasal mucosa grossly intact and dry without significant lesions, there is no thrush. Poor dentition Neck: The neck is supple without significant lymphadenopathy or thyromegaly. Lungs: Bibasilar crackles are heard. No wheezing. No intercostal retractions. Heart: Irregular audible S1 and S2 2/6 systolic murmur left sternal border PMI nondisplaced Abdomen: Positive bowel sounds soft and nontender without palpable masses or organomegaly. There was no guarding or rebound. Extremities: The upper extremities have excellent pulses they are symmetric, no significant petechiae or telangiectasia. No splinter hemorrhages were noted. The lower extremities are wrapped with a large dressing,Kerlix and Zi wraps with reported evidence of blistering to the left leg, bilateral erythema. Neuro: Awake alert oriented to person place and time. - Labs CBC & Chem 7: 01/15/19 08:23 01/15/19 08:23 Labs: Abnormal Lab Results - Last 24 Hours (Table) 01/14/19 01/14/19 01/14/19 Range/Units 14:45 14:45 14:45 RBC (4.30-5.90) m/uL Hgb (13.0-17.5) gm/dL Hct (39.0-53.0) % RDW (11.5-15.5) % Lymphocytes # (1.0-4.8) k/uL Carbon Dioxide (22-30) mmol/L BUN (9-20) mg/dL Creatinine (0.66-1.25) mg/dL Glucose (74-99) mg/dL POC Glucose (mg/dL) (75-99) mg/dL Magnesium (1.6-2.3) mg/dL Erythropoietin 57.84 H (2.00-30.00) mIU/mL IgA <25.5 L (60.0-350.0) mg/dL IgM 16.9 L (40.0-280.0) mg/dL Free [place] LC, Quant 18.80 H (0.33-1.94) mg/dL Free Lambda LC, Quant 6.59 H (0.57-2.63) mg/dL 01/15/19 01/15/19 01/15/19 Range/Units 06:23 08:23 08:23 RBC 2.62 L (4.30-5.90) m/uL Hgb 8.1 L (13.0-17.5) gm/dL Hct 26.0 L (39.0-53.0) % RDW 17.8 H (11.5-15.5) % Lymphocytes # 0.6 L (1.0-4.8) k/uL Carbon Dioxide 37 H (22-30) mmol/L BUN 65 H (9-20) mg/dL Creatinine 1.39 H (0.66-1.25) mg/dL Glucose 180 H (74-99) mg/dL POC Glucose (mg/dL) 151 H (75-99) mg/dL Magnesium 1.4 L (1.6-2.3) mg/dL Erythropoietin (2.00-30.00) mIU/mL IgA (60.0-350.0) mg/dL IgM (40.0-280.0) mg/dL Free [place] LC, Quant (0.33-1.94) mg/dL Free Lambda LC, Quant (0.57-2.63) mg/dL 01/15/19 01/15/19 01/15/19 Range/Units 12:18 16:50 20:30 RBC (4.30-5.90) m/uL Hgb (13.0-17.5) gm/dL Hct (39.0-53.0) % RDW (11.5-15.5) % Lymphocytes # (1.0-4.8) k/uL Carbon Dioxide (22-30) mmol/L BUN (9-20) mg/dL Creatinine (0.66-1.25) mg/dL Glucose (74-99) mg/dL POC Glucose (mg/dL) 133 H 231 H 273 H (75-99) mg/dL Magnesium (1.6-2.3) mg/dL Erythropoietin (2.00-30.00) mIU/mL IgA (60.0-350.0) mg/dL IgM (40.0-280.0) mg/dL Free [place] LC, Quant (0.33-1.94) mg/dL Free Lambda LC, Quant (0.57-2.63) mg/dL Microbiology - Last 24 Hours (Table) 01/09/19 21:51 Blood Culture - Preliminary Blood No Growth after 120 hours Laboratory Results WBC 7.7 k/uL (3.8-10.6) 01/15/19 08:23 RBC 2.62 m/uL (4.30-5.90) L 01/15/19 08:23 Hgb 8.1 gm/dL (13.0-17.5) L 01/15/19 08:23 Hct 26.0 % (39.0-53.0) L 01/15/19 08:23 MCV 99.3 fL (80.0-100.0) 01/15/19 08:23 MCH 30.8 pg (25.0-35.0) 01/15/19 08:23 MCHC 31.0 g/dL (31.0-37.0) 01/15/19 08:23 RDW 17.8 % (11.5-15.5) H 01/15/19 08:23 Plt Count 212 k/uL (150-450) 01/15/19 08:23 Neutrophils % 76 % 01/15/19 08:23 Neutrophils % (Manual) 71 % 01/13/19 04:53 Band Neutrophils % 2 % 01/13/19 04:53 Lymphocytes % 7 % 01/15/19 08:23 Lymphocytes % (Manual) 6 % 01/13/19 04:53 Monocytes % 6 % 01/15/19 08:23 Monocytes % (Manual) 7 % 01/13/19 04:53 Eosinophils % 9 % 01/15/19 08:23 Eosinophils % (Manual) 14 % 01/13/19 04:53 Basophils % 1 % 01/15/19 08:23 Neutrophils # 5.9 k/uL (1.3-7.7) 01/15/19 08:23 Neutrophils # (Manual) 4.10 k/uL (1.3-7.7) 01/13/19 04:53 Lymphocytes # 0.6 k/uL (1.0-4.8) L 01/15/19 08:23 Lymphocytes # (Manual) 0.34 k/uL (1.0-4.8) L 01/13/19 04:53 Monocytes # 0.5 k/uL (0-1.0) 01/15/19 08:23 Monocytes # (Manual) 0.40 k/uL (0-1.0) 01/13/19 04:53 Eosinophils # 0.7 k/uL (0-0.7) 01/15/19 08:23 Eosinophils # (Manual) 0.80 k/uL (0-0.7) H 01/13/19 04:53 Basophils # 0.0 k/uL (0-0.2) 01/15/19 08:23 Nucleated RBCs 0 /100 WBC (0-0) 01/13/19 04:53 Manual Slide Review Performed 01/13/19 04:53 Polychromasia Present 01/13/19 04:53 Hypochromasia Marked 01/15/19 08:23 Poikilocytosis Slight 01/15/19 08:23 Poikilocytosis (manual Present 01/13/19 04:53 Anisocytosis Slight 01/15/19 08:23 Macrocytosis Slight 01/15/19 08:23 PT 12.2 sec (9.0-12.0) H 01/09/19 21:51 INR 1.2 (<1.2) H 01/09/19 21:51 APTT 24.5 sec (22.0-30.0) 01/09/19 21:51 Sodium 141 mmol/L (137-145) 01/15/19 08:23 Potassium 3.9 mmol/L (3.5-5.1) 01/15/19 08:23 Chloride 99 mmol/L (98-107) 01/15/19 08:23 Carbon Dioxide 37 mmol/L (22-30) H 01/15/19 08:23 Anion Gap 5 mmol/L 01/15/19 08:23 BUN 65 mg/dL (9-20) H 01/15/19 08:23 Creatinine 1.39 mg/dL (0.66-1.25) H 01/15/19 08:23 Est GFR (CKD-EPI)AfAm 58 (>60 ml/min/1.73 sqM) 01/15/19 08:23 Est GFR (CKD-EPI)NonAf 50 (>60 ml/min/1.73 sqM) 01/15/19 08:23 Glucose 180 mg/dL (74-99) H 01/15/19 08:23 POC Glucose (mg/dL) 273 mg/dL (75-99) H 01/15/19 20:30 POC Glu Waste Recycler April Ghosh 01/15/19 20:30 Plasma Lactic Acid Guy 1.2 mmol/L (0.7-2.0) 01/09/19 22:54 Calcium 8.6 mg/dL (8.4-10.2) 01/15/19 08:23 Phosphorus 5.1 mg/dL (2.5-4.5) H 01/12/19 05:09 Magnesium 1.4 mg/dL (1.6-2.3) L 01/15/19 08:23 Iron 33 ug/dL (65-175) L 01/14/19 06:09 TIBC 203 ug/dL (228-460) L 01/14/19 06:09 Iron Saturation 16.26 (15.00-50.00) 01/14/19 06:09 Erythropoietin 57.84 mIU/mL (2.00-30.00) H 01/14/19 14:45 Ferritin 728.8 ng/mL (22.0-322.0) H 01/14/19 06:09 Total Bilirubin 0.6 mg/dL (0.2-1.3) 01/14/19 06:09 AST 38 U/L (17-59) 01/14/19 06:09 ALT 29 U/L (21-72) 01/14/19 06:09 Alkaline Phosphatase 134 U/L (38-126) H 01/14/19 06:09 Lactate Dehydrogenase 1381 U/L (313-618) H 01/14/19 14:45 NT-Pro-B Natriuret Pep 02535 pg/mL 01/10/19 10:15 Total Protein 6.0 g/dL (6.3-8.2) L 01/14/19 06:09 Total Protein (PEP) 5.9 g/dL (6.2-8.2) L 01/14/19 14:45 Albumin 2.8 g/dL (3.5-5.0) L 01/14/19 06:09 Vitamin B12 637.0 pg/mL (200.0-944.0) 01/14/19 14:45 Folate 14.1 ng/mL 01/14/19 14:45 Procalcitonin 1.05 ng/mL (0.02-0.09) H 01/11/19 10:22 Urine Color Yellow 01/10/19 03:24 Urine Appearance Cloudy (Clear) 01/10/19 03:24 Urine pH 5.0 (5.0-8.0) 01/10/19 03:24 Ur Specific [place] 1.014 (1.001-1.035) 01/10/19 03:24 Urine Protein 1+ (Negative) H 01/10/19 03:24 Urine Glucose (UA) Negative (Negative) 01/10/19 03:24 Urine Ketones Negative (Negative) 01/10/19 03:24 Urine Blood Moderate (Negative) H 01/10/19 03:24 Urine Nitrite Negative (Negative) 01/10/19 03:24 Urine Bilirubin Negative (Negative) 01/10/19 03:24 Urine Urobilinogen <2.0 mg/dL (<2.0) 01/10/19 03:24 Ur Leukocyte Esterase Negative (Negative) 01/10/19 03:24 Urine RBC 5 /hpf (0-5) 01/10/19 03:24 Urine WBC <1 /hpf (0-5) 01/10/19 03:24 Ur Squamous Epith Cells 1 /hpf (0-4) 01/10/19 03:24 Amorphous Sediment Rare /hpf (None) H 01/10/19 03:24 Hyaline Casts 2 /lpf (0-2) 01/10/19 03:24 Urine Mucus Rare /hpf (None) H 01/10/19 03:24 Urine Eosinophils 0 % 01/11/19 09:35 Stool Occult Blood Negative (Negative) 01/11/19 10:00 IgG 1590.0 mg/dL (700.0-1600.0) 01/14/19 14:45 IgA <25.5 mg/dL (60.0-350.0) L 01/14/19 14:45 IgM 16.9 mg/dL (40.0-280.0) L 01/14/19 14:45 Rheumatoid Factor <4 IU/mL (0-15) 01/14/19 14:45 [place] Screen NEGATIVE (NEGATIVE) 01/14/19 14:45 Free [place] LC, Quant 18.80 mg/dL (0.33-1.94) H 01/14/19 14:45 Free Lambda LC, Quant 6.59 mg/dL (0.57-2.63) H 01/14/19 14:45 Influenza Type A RNA Not Detected (Not Detectd) 01/09/19 21:40 Influenza Type B (PCR) Not Detected (Not Detectd) 01/09/19 21:40 Blood Type A Positive 01/14/19 07:01 Blood Type Recheck A Pos 01/14/19 07:01 Bld Type Recheck Status No 01/14/19 07:01 Antibody Screen NEGATIVE 01/14/19 07:01 Crossmatch See Detail 01/14/19 07:01 Spec Expiration Date 01/17/2019230001/14/19 07:01 Microbiology 01/09/19 21:51 Blood Blood Culture - Preliminary No Growth after 120 hours Assessment and Plan (1) Acute renal failure (ARF) Current Visit: Yes Status: Acute Code(s): N17.9 - SNOMED Code(s): 34294875 (2) Bilateral lower leg cellulitis Narrative/Plan: The patient was home from the extended care facility for relatively short period time before he had increasing illness with altered mental status increasing w eakness and consequently EMS was called and the patient was brought back to hospital. He was found evidence of acute renal failure, metabolic encephalopathy worsening congestive heart failure. The patient does have a history of the recent surgical intervention to repair his mitral valve. The case is discussed with 100 critical-care and we will ask cardiology if the FAUSTINO can be performed to further evaluate his cardiac function. His significant and worsening status is concerning. The renal failure appears to be part of a cardiorenal syndrome and maneuvers to improve his cardiac function will certainly be helpful. He is getting diuresed and watch carefully and then again he has acute renal failure. He doesn't have significant lactic acidosis and BNP was markedly elevated despite the acute renal failure. At this time no positive cultures are noted. Admission was concerns to pneumonia because of the changes on the chest x-ray and was given a dose of Levaquin. The patient's chronic bilateral lower from a ulcerations are looking well and do not appear to be grossly infected. The edema is under good control. The large open ulcerations almost completely healed. Local care with Silvadene wrap will continue. 01/12/2019 the patient is showing some improvement today. Strength has increased such that he was able to two-person assist to get up and get the chair. His legs have improved. His breathing is to fully improve with the negative fluid balance. His mentation is also improved. Continue local wound care to the lower extremities no evidence of pneumonia or active infection to the legs today. Please continue use of barrier cream to the buttocks 01/15/2019 with the active diuresis he is now considerably improved. Lower extremity edema is improved swelling is improved discomfort is improved. His strength seems to have improved. No ulcerations are noted. Does not appear to have any active ulcerations of the lower extremities. Continue the local treatment elevation and wraps for now. Patient relates he wants to be discharged home not to rehab. Current Visit: No Status: Acute Code(s): L03.116 - CELLULITIS OF LEFT LOWER LIMB; L03.115 - CELLULITIS OF RIGHT LOWER LIMB SNOMED Code(s): 641595813 (3) CAD (coronary artery disease) Current Visit: No Status: Acute Code(s): I25.10 - ATHSCL HEART DISEASE OF [place] CORONARY ARTERY W/O ANG PCTRS SNOMED Code(s): 58046053
[2019-01-16 06:16] LABS: Glucose,Whole Blood 150 mg/dL (75-99)
[2019-01-16] MEDS: INSULIN ASPART (NovoLOG) 100 UNIT/ML VIAL SQ SCH ×4 (06:34→21:10)
[2019-01-16] MEDS: PANTOPRAZOLE 40 MG TABLET PO SCH (06:35)
[2019-01-16 07:25] LABS: Calcium 8.6 mg/dL (8.4-10.2); Magnesium 1.6 mg/dL (1.6-2.3)
[2019-01-16] MEDS: SODIUM FERRIC GLUCONAT-SUCROSE 125 MG in SODIUM CHLORIDE 0.9% 100 ML IVPB SCH (08:21)
[2019-01-16] MEDS: FUROSEMIDE 10 MG/ML 4 ML VIAL IV SCH (08:26)
[2019-01-16] MEDS: CLOPIDOGREL 75 MG TAB PO SCH (08:26)
[2019-01-16] MEDS: SPIRONOLACTONE 25 MG TAB PO SCH (08:26)
[2019-01-16] MEDS: GABAPENTIN 100 MG CAP PO SCH ×2 (08:26→21:09)
[2019-01-16] MEDS: METOPROLOL TARTRATE 50 MG TAB PO SCH ×2 (08:27→21:09)
[2019-01-16] MEDS: SENNOSIDES-DOCUSATE SODIUM 1 EACH TAB PO SCH ×2 (08:27→21:10)
[2019-01-16] MEDS: hydrALAZINE HCL 25 MG TAB PO SCH ×2 (08:27→21:10)
[2019-01-16] MEDS: HEPARIN SODIUM,PORCINE 5,000 UNIT/ML 1 ML VIAL SQ SCH ×3 (08:27→23:57)
[2019-01-16 08:30] LABS: Immunoglobulin M 35.8 mg/dL (40.0-280.0)
[2019-01-16] MEDS: ACETAMINOPHEN TAB 325 MG TAB PO PRN ×2 (08:38→21:17)
[2019-01-16] MEDS: AMIODARONE 100 MG TAB PO SCH (08:39)
[2019-01-16] MEDS: INSULIN DETEMIR (LEVEMIR) 100 UNIT/ML SYR SQ SCH ×2 (10:56→21:10)
[2019-01-16 12:16] LABS: Glucose,Whole Blood 218 mg/dL (75-99)
--- NOTE | 2019-01-16 13:09 | P.PN ---
Subjective Patient is seen in follow-up for acute kidney injury. Renal function is improving. Creatinine 1.26 today. No vomiting or diarrhea. Patient was c hanged from IV Lasix to oral Lasix 120 mg twice daily this morning. Urine output has been good. Denies active chest pain or shortness of breath. Edema improving. Status post blood transfusion on January 14. Hemoglobin 8.1 as of yesterday. No active bleeding. Vital signs are stable. General: The patient appeared well nourished and normally developed. HEENT: Head exam is unremarkable. Neck is without jugular venous distension. LUNGS: Breath sounds decreased. HEART: Rate and Rhythm are regular. First and second heart sounds normal. No murmurs, rubs or gallops. ABDOMEN: Abdominal exam reveals normal bowel sounds. Non-tender and non- distended. EXTREMITITES: Trace edema. Objective - Vital Signs Vital signs: Vital Signs Temp 98.2 F 01/16/19 12:00 Pulse 63 01/16/19 12:00 Resp 18 01/16/19 12:00 BP 108/55 01/16/19 12:00 Pulse Ox 96 01/16/19 12:00 Intake & Output 01/15/19 01/16/19 01/16/19 18:59 06:59 18:59 Intake Total 720 120 120 Output Total 700 2520 Balance 20 -2400 120 Weight 97.2 kg Intake: Oral 720 120 120 Output: Urine 700 2520 Other: Voiding Method Indwelling Catheter Indwelling Catheter Indwelling Catheter - Labs CBC & Chem 7: 01/15/19 08:23 01/16/19 06:29 Labs: Abnormal Lab Results - Last 24 Hours (Table) 01/14/19 01/15/19 01/15/19 Range/Units 14:45 16:50 20:30 Carbon Dioxide (22-30) mmol/L BUN (9-20) mg/dL Creatinine (0.66-1.25) mg/dL Glucose (74-99) mg/dL POC Glucose (mg/dL) 231 H 273 H (75-99) mg/dL IgM 35.8 L (40.0-280.0) mg/dL 01/16/19 01/16/19 01/16/19 Range/Units 06:15 06:29 12:14 Carbon Dioxide 41 H* (22-30) mmol/L BUN 63 H (9-20) mg/dL Creatinine 1.26 H (0.66-1.25) mg/dL Glucose 133 H (74-99) mg/dL POC Glucose (mg/dL) 150 H 218 H (75-99) mg/dL IgM (40.0-280.0) mg/dL Microbiology - Last 24 Hours (Table) 01/09/19 21:51 Blood Culture - Final Blood No Growth after 144 hours Assessment and Plan Plan: Assessment: 1. Acute kidney injury mostly prerenal secondary to cardiorenal syndrome. Renal function improving. Creatinine 1.26 today. 2. 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 3. Volume overload. Improving with diuresis. 4. Anemia. Stool for occult blood negative. Iron deficiency noted. No active bleeding. Also on aranesp. Status post blood transfusion on January 14. 5. Acute on chronic diastolic CHF with mild to moderate mitral regurgitation, moderate tricuspid regurgitation and severe pulmonary hypertension. 6. Hypomagnesemia secondary to diuresis. Better post replacement. 7. Insulin-dependent diabetes mellitus. 8. Metabolic alkalosis secondary to diuresis. Plan: Decrease Lasix to 80 mg orally twice daily. Add Diamox 250 mg twice daily. Replace magnesium. 2 g IV today. IV iron 3 doses. Second dose today. Avoid nephrotoxins. Repeat electrolytes in the morning. Discussed with cardiology.
--- NOTE | 2019-01-16 14:26 | P.PN ---
Subjective Progress Note Date: 01/16/19 Patient is a 73-year-old male with a past medical history significant for CAD status post stenting, COPD, chronic diastolic heart failure, mitral valve disease status post mitral valve repair, COPD, HENRY, diabetes and CKD who presented with complaints of shortness of breath. He was admitted for treatment of CHF exacerbation and was started on IV Lasix. Patient diuresed well through the night last night although his weight is not reflective of this. Creatinine improving, 1.6 today, BUN 71. Hemoglobin today down to 6.8. Blood pressure 165/74 with a heart rate in the 60s, normal LV function. Overall the patient feels significantly better. We will discontinue the IV Lasix and change to Lasix 80 mg 1 tablet by mouth twice a day. Consult Dr. Parish regarding anemia. 01/15/2019 Patient was seen and examined today sitting up in the chair at bedside. Continues to feel short of breath but did state that he is feeling a little better. Repeat chest x-ray performed today showed continued mild cardiomegaly with persistent CHF and mild interstitial edema. Blood pressure 156/78 with a heart rate in the 60s, 97% on 2 L of oxygen. White blood cell count 7.7, hemoglobin 8.1, platelet count 212. Sodium 141, potassium 3.9, BUN 65 and creatinine 1.3. Magnesium 1.4 today. 01/16/2019 Patient was seen and examined this morning, overall his urine output has been good, breathing is improving overall. IV Lasix was discontinued and patient was initiated on 120 g of Lasix twice a day, after discussion with Dr. Teixeira, patient's dose of Lasix was decreased to 80 mg by mouth twice a day and Diamox was added. Let pressure 108/56 with a heart rate in the 60s, 96% on 2 L of oxygen. Sodium 141, potassium 4.0, BUN 63 and creatinine 1.2, magnesium 1.6. Objective - Vital Signs Vital signs: Vital Signs Temp 98.2 F 01/16/19 12:00 Pulse 63 01/16/19 12:00 Resp 18 01/16/19 12:00 BP 108/55 01/16/19 12:00 Pulse Ox 96 01/16/19 12:00 Intake & Output 01/15/19 01/16/19 01/16/19 18:59 06:59 18:59 Intake Total 720 120 120 Output Total 700 2520 Balance 20 -2400 120 Weight 97.2 kg Intake: Oral 720 120 120 Output: Urine 700 2520 Other: Voiding Method Indwelling Catheter Indwelling Catheter Indwelling Catheter - Exam Patient seen and examined sitting up in bed, in no acute distress Lungs diminished with few crackles Heart is regular, systolic murmur audible No elevated JVD appreciated Lower extremities are wrapped with a dressing and Zi wrap, Trace lower extremity edema - Labs CBC & Chem 7: 01/15/19 08:23 01/16/19 06:29 Labs: Abnormal Lab Results - Last 24 Hours (Table) 01/14/19 01/15/19 01/15/19 Range/Units 14:45 16:50 20:30 Carbon Dioxide (22-30) mmol/L BUN (9-20) mg/dL Creatinine (0.66-1.25) mg/dL Glucose (74-99) mg/dL POC Glucose (mg/dL) 231 H 273 H (75-99) mg/dL IgM 35.8 L (40.0-280.0) mg/dL 01/16/19 01/16/19 01/16/19 Range/Units 06:15 06:29 12:14 Carbon Dioxide 41 H* (22-30) mmol/L BUN 63 H (9-20) mg/dL Creatinine 1.26 H (0.66-1.25) mg/dL Glucose 133 H (74-99) mg/dL POC Glucose (mg/dL) 150 H 218 H (75-99) mg/dL IgM (40.0-280.0) mg/dL Microbiology - Last 24 Hours (Table) 01/09/19 21:51 Blood Culture - Final Blood No Growth after 144 hours Assessment and Plan Plan: Assessment and plan #1 Acute on chronic combined systolic and diastolic heart failure, most recent echo showing EF 50-55%, diuresing well. #2 History of valvular heart disease status post mitral valve replacement, echocardiogram showing mild to moderate MR and moderate MS following mitral valve repair, normal LV function #3 CAD status post recent stent placement #4 chronic kidney disease , creatinine improving, nephrology following #5 COPD #6 Anemia, hemoglobin 6.8 today #7 Severe pulmonary hypertension #8 Hypertension #9 Dyslipidemia #10 Diabetes #11 Former smoker Plan IV Lasix will be discontinued and patient will be initiated on 80 mg of Lasix by mouth twice a day, we will replace the patient's magnesium, check daily lytes BUN and creatinine. DNP note has been reviewed, I agree with a documented findings and plan of care. Patient was seen and examined.
[2019-01-16 14:49] LABS: Albumin 2.88 g/dL (3.80-4.90); Gamma Globulin 1.42 g/dL (0.70-1.50)
[2019-01-16] MEDS: MAGNESIUM SULFATE-D5W PMX 1 GM in DEXTROSE/WATER 1 100ML.BAG IVPB SCH ×2 (15:39→17:11)
[2019-01-16] MEDS: acetaZOLAMIDE 250 MG TAB PO SCH ×2 (15:40→21:17)
[2019-01-16] MEDS: LACTOBACILLUS ACIDOPH & BULGAR 1 EACH PACKET PO SCH (15:40)
[2019-01-16] MEDS: MULTIVITAMINS, THERA 1 EACH TAB PO SCH (15:40)
[2019-01-16] MEDS: CHOLECALCIFEROL 1,000 UNIT TAB PO SCH (15:40)
[2019-01-16] MEDS: ASPIRIN 81 MG PO SCH (15:41)
[2019-01-16] MEDS: FUROSEMIDE 80 MG TAB PO SCH (15:41)
[2019-01-16] MEDS ORDERED: FUROSEMIDE 80 MG TAB PO SCH (16:00)
[2019-01-16] MEDS: ZINC SULFATE 220 MG CAP PO SCH (17:10)
[2019-01-16 17:11] LABS: Glucose,Whole Blood 259 mg/dL (75-99)
[2019-01-16 20:49] LABS: Glucose,Whole Blood 197 mg/dL (75-99)
[2019-01-16] MEDS: TAMSULOSIN 0.4 MG CAP.ER.24H PO SCH (21:09)
[2019-01-16] MEDS: ATORVASTATIN 40 MG TAB PO SCH (21:10)
[2019-01-16] MEDS: ESCITALOPRAM 10 MG TAB PO SCH (21:10)
[2019-01-17 06:27] LABS: Glucose,Whole Blood 85 mg/dL (75-99)
[2019-01-17] MEDS: PANTOPRAZOLE 40 MG TABLET PO SCH (06:27)
[2019-01-17] MEDS: INSULIN ASPART (NovoLOG) 100 UNIT/ML VIAL SQ SCH ×4 (06:58→20:34)
[2019-01-17 07:17] LABS: Anisocytosis Slight; Basophils % (A) 0 %; Eosinophils # (A) 0.8 k/uL (0-0.7); Eosinophils % (A) 11 %; HCT 24.6 % (39.0-53.0); HGB 7.4 gm/dL (13.0-17.5); Hypochromasia Marked; Lymphocytes # (A) 0.7 k/uL (1.0-4.8); Lymphocytes % (A) 9 %; MCH 30.2 pg (25.0-35.0); MCHC 29.9 g/dL (31.0-37.0); MCV 101.1 fL (80.0-100.0); Macrocytosis Slight; Monocytes # (A) 0.4 k/uL (0-1.0); Monocytes % (A) 6 %; Neutrophils # (A) 5.4 k/uL (1.3-7.7); Neutrophils % (A) 72 %; Platelet Count 209 k/uL (150-450); RBC 2.43 m/uL (4.30-5.90); RDW 17.2 % (11.5-15.5); WBC 7.4 k/uL (3.8-10.6)
[2019-01-17 07:23] LABS: Calcium 8.5 mg/dL (8.4-10.2); Magnesium 1.9 mg/dL (1.6-2.3); Potassium 3.7 mmol/L (3.5-5.1)
[2019-01-17] MEDS: acetaZOLAMIDE 250 MG TAB PO SCH ×2 (09:38→20:33)
[2019-01-17] MEDS: CLOPIDOGREL 75 MG TAB PO SCH (09:38)
[2019-01-17] MEDS: hydrALAZINE HCL 25 MG TAB PO SCH ×2 (09:38→20:32)
[2019-01-17] MEDS: GABAPENTIN 100 MG CAP PO SCH ×2 (09:38→20:32)
[2019-01-17] MEDS: SPIRONOLACTONE 25 MG TAB PO SCH (09:39)
[2019-01-17] MEDS: MAGNESIUM OXIDE 400 MG TAB PO SCH (09:39)
[2019-01-17] MEDS: METOPROLOL TARTRATE 50 MG TAB PO SCH ×2 (09:39→20:33)
[2019-01-17] MEDS: HEPARIN SODIUM,PORCINE 5,000 UNIT/ML 1 ML VIAL SQ SCH ×2 (09:39→16:52)
[2019-01-17] MEDS: AMIODARONE 100 MG TAB PO SCH (09:39)
[2019-01-17] MEDS: SENNOSIDES-DOCUSATE SODIUM 1 EACH TAB PO SCH ×2 (09:39→20:32)
[2019-01-17] MEDS: FUROSEMIDE 80 MG TAB PO SCH ×2 (09:39→16:52)
[2019-01-17] MEDS: ACETAMINOPHEN TAB 325 MG TAB PO PRN ×2 (09:42→20:33)
[2019-01-17] MEDS: SODIUM FERRIC GLUCONAT-SUCROSE 125 MG in SODIUM CHLORIDE 0.9% 100 ML IVPB SCH (09:43)
--- NOTE | 2019-01-17 10:21 | P.PN ---
Subjective Patient is seen in follow-up for acute kidney injury. Renal function is fairly stable. Creatinine 1.33 today. No vomiting or diarrhea. Urine output has been good. Denies active chest pain or shortness of breath. Edema improving. Status post blood transfusion on January 14. Hemoglobin 7.4 today. No active bleeding. Currently maintained on Lasix 80 mg orally twice daily and Diamox 250 mg twice daily. Vital signs are stable. General: The patient appeared well nourished and normally developed. HEENT: Head exam is unremarkable. Neck is without jugular venous distension. LUNGS: Breath sounds decreased. HEART: Rate and Rhythm are regular. First and second heart sounds normal. No murmurs, rubs or gallops. ABDOMEN: Abdominal exam reveals normal bowel sounds. Non-tender and non- distended. EXTREMITITES: Trace edema. Objective - Vital Signs Vital signs: Vital Signs Temp 98.1 F 01/17/19 08:00 Pulse 77 01/17/19 08:00 Resp 18 01/17/19 08:00 BP 131/61 01/17/19 08:00 Pulse Ox 97 01/17/19 08:00 Intake & Output 01/16/19 01/17/19 01/17/19 18:59 06:59 18:59 Intake Total 360 120 240 Output Total 2425 Balance 360 -2305 240 Weight 96.6 kg Intake: Oral 360 120 240 Output: Urine 2425 Other: Voiding Method Indwelling Catheter Indwelling Catheter Indwelling Catheter # Bowel Movements 1 - Labs CBC & Chem 7: 01/17/19 06:27 01/17/19 06:27 Labs: Abnormal Lab Results - Last 24 Hours (Table) 01/14/19 01/16/19 01/16/19 Range/Units 14:45 12:14 17:09 RBC (4.30-5.90) m/uL Hgb (13.0-17.5) gm/dL Hct (39.0-53.0) % MCV (80.0-100.0) fL MCHC (31.0-37.0) g/dL RDW (11.5-15.5) % Lymphocytes # (1.0-4.8) k/uL Eosinophils # (0-0.7) k/uL Carbon Dioxide (22-30) mmol/L BUN (9-20) mg/dL Creatinine (0.66-1.25) mg/dL POC Glucose (mg/dL) 218 H 259 H (75-99) mg/dL Albumin (PEP) 2.88 L (3.80-4.90) g/dL Ymfyw-8-Csvkrynjx 0.42 H (0.10-0.40) g/dL Eiaxk-6-Lmwbdaglp 0.50 L (0.60-1.00) g/dL 01/16/19 01/17/19 01/17/19 Range/Units 20:48 06:27 06:27 RBC 2.43 L (4.30-5.90) m/uL Hgb 7.4 L (13.0-17.5) gm/dL Hct 24.6 L (39.0-53.0) % MCV 101.1 H (80.0-100.0) fL MCHC 29.9 L (31.0-37.0) g/dL RDW 17.2 H (11.5-15.5) % Lymphocytes # 0.7 L (1.0-4.8) k/uL Eosinophils # 0.8 H (0-0.7) k/uL Carbon Dioxide 40 H (22-30) mmol/L BUN 52 H (9-20) mg/dL Creatinine 1.33 H (0.66-1.25) mg/dL POC Glucose (mg/dL) 197 H (75-99) mg/dL Albumin (PEP) (3.80-4.90) g/dL Obspk-5-Utvvvyopt (0.10-0.40) g/dL Mvdst-0-Ggmyenfep (0.60-1.00) g/dL Assessment and Plan Plan: Assessment: 1. Acute kidney injury mostly prerenal secondary to cardiorenal syndrome. Renal function improved since admission. Creatinine 1.33 today. 2. 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 3. Volume overload. Improving with diuresis. 4. Anemia. Stool for occult blood negative. Iron deficiency noted. No active bleeding. Also on aranesp. Status post blood transfusion on January 14. 5. Acute on chronic diastolic CHF with mild to moderate mitral regurgitation, moderate tricuspid regurgitation and severe pulmonary hypertension. 6. Hypomagnesemia secondary to diuresis. Better post replacement. 7. Insulin-dependent diabetes mellitus. 8. Metabolic alkalosis secondary to diuresis. Better. Plan: Maintain Lasix 80 mg bid. Maintain Diamox 250 mg twice daily. IV iron 3 doses. Third dose today. Avoid nephrotoxins. Repeat electrolytes in the morning.
--- NOTE | 2019-01-17 11:53 | P.PN ---
Subjective This is Natalie Cummings PA-C dictating a progress note on this patient The patient was interviewed and examined by me as well as by Dr. Deng Case discussed with Dr. Deng and he agrees with the plan of care IMPRESSION / ASSESSMENT: Acute on chronic combined systolic and diastolic heart failure, most recent echo showing EF 50-55%, diuresing well History of valvular heart disease status post mitral valve replacement, echo showing mild to moderate MR, moderate MS following mitral valve repair CAD status post recent stenting CKD, creatinine stable, nephrology following COPD Anemia, hemoglobin 7.4 today Severe pulmonary hypertension Hypertension Dyslipidemia Diabetes Former smoker PLAN: Continue oral Lasix 80 mg twice a day, along with spironolactone and Diamox Continue amiodarone 100 mg daily Continue to monitor BMP HPI/interval history Patient is a 73-year-old male with a past medical history of CAD status post stenting, COPD, chronic diastolic heart failure, mitral valve disease status post mitral valve repair, HENRY, diabetes, and CO2 KD who presented with complaints of shortness of breath. He was admitted for treatment of CHF exacerbation and started on IV Lasix. He is off IV Lasix and has been started on oral Lasix 80 mg twice a day along with Diamox. Continues to diurese well. Patient seen and examined resting comfortably in bed. His breathing continues to improve but he is still short of breath when he gets up and walks to the bathroom. No chest pain, palpitations or dizziness. EXAMINATION Temperature 98.1F, pulse 77, respirations 18, blood pressure 131/61, oxygen saturation 97% on 2 L nasal cannula Patient seen and examined resting comfortably in bed, in no acute distress Lungs with few scattered crackles at the bases Heart is regular, systolic murmur noted Trace edema bilaterally Minimal JVD REVIEW OF LABS, ECG WBC 7.4, hemoglobin 7.4, platelets 209, potassium 3.7, BUN 52, creatinine 1.33, magnesium 1.9 Objective - Vital Signs Vital signs: Vital Signs Temp 98.1 F 01/17/19 08:00 Pulse 77 01/17/19 08:00 Resp 18 01/17/19 08:00 BP 131/61 01/17/19 08:00 Pulse Ox 97 01/17/19 08:00 Intake & Output 01/16/19 01/17/19 01/17/19 18:59 06:59 18:59 Intake Total 360 120 240 Output Total 2425 Balance 360 -2305 240 Weight 96.6 kg Intake: Oral 360 120 240 Output: Urine 2425 Other: Voiding Method Indwelling Catheter Indwelling Catheter Indwelling Catheter # Bowel Movements 1 - Labs CBC & Chem 7: 01/17/19 06:27 01/17/19 06:27 Labs: Abnormal Lab Results - Last 24 Hours (Table) 01/14/19 01/16/19 01/16/19 Range/Units 14:45 12:14 17:09 RBC (4.30-5.90) m/uL Hgb (13.0-17.5) gm/dL Hct (39.0-53.0) % MCV (80.0-100.0) fL MCHC (31.0-37.0) g/dL RDW (11.5-15.5) % Lymphocytes # (1.0-4.8) k/uL Eosinophils # (0-0.7) k/uL Carbon Dioxide (22-30) mmol/L BUN (9-20) mg/dL Creatinine (0.66-1.25) mg/dL POC Glucose (mg/dL) 218 H 259 H (75-99) mg/dL Albumin (PEP) 2.88 L (3.80-4.90) g/dL Ldeir-9-Gmanhmfax 0.42 H (0.10-0.40) g/dL Fwpnf-8-Uwfcelbxp 0.50 L (0.60-1.00) g/dL 01/16/19 01/17/19 01/17/19 Range/Units 20:48 06:27 06:27 RBC 2.43 L (4.30-5.90) m/uL Hgb 7.4 L (13.0-17.5) gm/dL Hct 24.6 L (39.0-53.0) % MCV 101.1 H (80.0-100.0) fL MCHC 29.9 L (31.0-37.0) g/dL RDW 17.2 H (11.5-15.5) % Lymphocytes # 0.7 L (1.0-4.8) k/uL Eosinophils # 0.8 H (0-0.7) k/uL Carbon Dioxide 40 H (22-30) mmol/L BUN 52 H (9-20) mg/dL Creatinine 1.33 H (0.66-1.25) mg/dL POC Glucose (mg/dL) 197 H (75-99) mg/dL Albumin (PEP) (3.80-4.90) g/dL Vvsvz-2-Etwcernxe (0.10-0.40) g/dL Rumhu-0-Bzzvvmyxg (0.60-1.00) g/dL
[2019-01-17 12:10] LABS: Glucose,Whole Blood 134 mg/dL (75-99)
[2019-01-17] MEDS: CHOLECALCIFEROL 1,000 UNIT TAB PO SCH (16:52)
[2019-01-17] MEDS: MULTIVITAMINS, THERA 1 EACH TAB PO SCH (16:52)
[2019-01-17] MEDS: ASPIRIN 81 MG PO SCH (16:52)
[2019-01-17] MEDS: ZINC SULFATE 220 MG CAP PO SCH (16:52)
[2019-01-17] MEDS: LACTOBACILLUS ACIDOPH & BULGAR 1 EACH PACKET PO SCH (16:52)
[2019-01-17 17:37] LABS: Glucose,Whole Blood 258 mg/dL (75-99)
[2019-01-17 20:26] LABS: Glucose,Whole Blood 180 mg/dL (75-99)
[2019-01-17] MEDS: TAMSULOSIN 0.4 MG CAP.ER.24H PO SCH (20:32)
[2019-01-17] MEDS: ATORVASTATIN 40 MG TAB PO SCH (20:33)
[2019-01-17] MEDS: ESCITALOPRAM 10 MG TAB PO SCH (20:33)
[2019-01-17] MEDS: INSULIN DETEMIR (LEVEMIR) 100 UNIT/ML SYR SQ SCH (20:34)
--- NOTE | 2019-01-17 23:09 | P.PN ---
Subjective Progress Note Date: 01/15/19 Principal diagnosis: Acute exacerbation systolic CHF Acute renal injury possibly cardiorenal Bilateral lower extremity cellulitis Encephalopathy 73-year-old white male patient of Dr. Patel, with recent history of mitral valve repair for history of severe mitral valve regurgitation with severely calcified mitral valve annulus, status post complex mitral valve repair on 10/31/2018. Other medical history includes coronary artery disease with recent drug-eluting stent placement in the LAD in September 2018, chronic diastolic heart failure, hypertension, hyperlipidemia, type 2 diabetes mellitus with peripheral neuropathy, chronic kidney disease, moderately severe COPD, obstructive sleep apnea without home CPAP use, hypertension, obesity, previous tobacco dependence and paroxysmal atrial fibrillation. Following his surgery patient went to subacute rehab at [facility] for further rehabilitation related to significant weakness, and prolonged recovery postoperative mitral valve repair. Patient also had recent hospitalization in November for bilateral lower extremity cellulitis. Patient was treated with Zosyn and vancomycin, the swelling and the blistering have improved. 01/11/2019 Patient is seen and evaluated in room at bedside; patient complaints of difficulty sleeping; no other complaints; per nursing staff patient has been complaining of hallucinating during the night; no such complaints anymore Vital signs are reviewed and remained stable with a temperature of 97.5, pulse 62, respiration 18 and blood pressure 120/61 and SpO2 of 97% on 2 L Laboratory review shows a white blood count of 7.4, hemoglobin 7 and platelet count of [birth year]14/1989; sodium 139 and potassium of 4.6; BUN/creatinine has been slowly trending down from 2.7 yesterday down to 2.4; magnesium of 1.4; patient is started on electrolyte protocol; patient remains on IV diuretics per cardiology for acute exacerbation CHF and hydralazine is admitted; pulmonary service recommending to stop antibiotics for pneumonia; ID to see patient for trace of antibiotics for cellulitis 01/12/2019 Patient transferred to ICU yesterday- found to be lethargic and somewhat confused; patient's is awake alert and oriented this morning. Patient remains on IV Lasix 40 mg every 8 hours. He made excellent urine output and his net fluid balance is been negative more than 2.5 L over the past 24 hours. Chest x-ray shows improvement in the aeration. There is underlying cardiomegaly. Echocardiogram was repeated and it showed evidence of severe pulmonary hypertension. PA pressures were as high as 69. LV function showed an ejection fraction of 50-55%. RV was severely dilated. RA was mild a dilated. There was mild aortic regurgitation. Mild to moderate mitral regurgitation. Moderate mitral stenosis. Evidence of mitral valve repair. Peak and mean mitral valve gradients were 17 and 6 mmHg by Doppler. Severe pulmonary hypertension was noted. Inferior vena cava was mildly dilated. His proBNP was significantly elevated and he responded to diuretics. He was probably cardiorenal syndrome and his kidney function is also improving and the creatinine is down to 2.1. 01/13/2019 Patient is seen and evaluated in ICU this follow-up sitting up in bedside chair Patient remains on Lasix 40 mg IV every 8 hours with fair urine output and a negative fluid balance over past 24 hours Labs show improvement in creatinine; hemoglobin remained stable at 7.1; no signs of overt bleeding; repeat chest x-ray shows CHF and cardiomegaly; repeat echocardiogram shows an ejection fraction of 50-55% with severe pulmonary hypertension 01/14/2019 Patient is currently lying in the bed comfortably. No complaints of chest pain. Patient still having shortness of breath. Currently saturating well on 2 L nausea cannula oxygen. No complaints of chest pain. Leg swelling is improving. Currently on oral Lasix for 80 mg twice daily. Otherwise patient's hemoglobin came down to 6.8 today. Patient was given 1 unit PRBC and hematology was consulted due to chronic anemia Renal function is improving. Otherwise patient does have generalized weakness and PTOT was consulted. Patient will need rehab transfer 01/15/2019 Patient says that his breathing is better. Still having significant leg swelling. Currently being continued on Lasix 80 mg twice daily. Renal function improving with creatinine level I.39 today. Hemoglobin level improved after blood transfusion. Hemoglobin is 8.1 today. No complaints of nausea vomiting or abdominal pain. Patient is able to sit in the chair comfortably. Still have very minimal activity. Current medications reviewed. Objective - Vital Signs Vital signs: Vital Signs Temp 98.4 F 01/15/19 08:00 Pulse 72 01/15/19 12:35 Resp 19 01/15/19 12:00 BP 136/65 01/15/19 12:00 Pulse Ox 98 01/15/19 12:00 Intake & Output 01/14/19 01/15/19 01/15/19 18:59 06:59 18:59 Intake Total 670 720 Output Total 800 1625 700 Balance -130 -1625 20 Weight 104 kg Intake: Oral 360 720 Blood Product 310 Rc As-1 Unit 310 [id number] Output: Urine 800 1625 700 Other: Voiding Method Indwelling Catheter Indwelling Catheter Indwelling Catheter # Voids 0 1 # Bowel Movements 1 - Exam HEAD: Normocephalic/atraumatic. EYES: Normal reaction of pupils, equal size. Conjunctiva pink, sclera white. NOSE: Clear with pink turbinates. THROAT: No erythema or exudates. NECK: No masses, no JVD, no thyroid enlargement, no adenopathy. CHEST: No chest wall deformity. Symmetrical expansion. LUNGS: Equal air entry with diffuse crackles, but no wheeze, rhonchi or dullness. CVS: Regular rate and rhythm, normal S1 and S2, no gallops, no murmurs, no rubs ABDOMEN: Soft, nontender. No hepatosplenomegaly, normal bowel sounds, no guarding or rigidity. EXTREMITIES: No clubbing, bilateral lower extremity edema, and small healing blisters on his anterior shins, and his bilateral feet with no significant surrounding erythema or warmth, no cyanosis, 2+ pulses and upper and lower extremities. Both lower extremities are Zi wrapped - Labs CBC & Chem 7: 01/17/19 06:27 01/17/19 06:27 Labs: Abnormal Lab Results - Last 24 Hours (Table) 01/14/19 01/14/19 01/14/19 Range/Units 14:45 14:45 14:45 RBC (4.30-5.90) m/uL Hgb (13.0-17.5) gm/dL Hct (39.0-53.0) % RDW (11.5-15.5) % Lymphocytes # (1.0-4.8) k/uL Carbon Dioxide (22-30) mmol/L BUN (9-20) mg/dL Creatinine (0.66-1.25) mg/dL Glucose (74-99) mg/dL POC Glucose (mg/dL) (75-99) mg/dL Magnesium (1.6-2.3) mg/dL Erythropoietin 57.84 H (2.00-30.00) mIU/mL Total Protein (PEP) 5.9 L (6.2-8.2) g/dL IgA <25.5 L (60.0-350.0) mg/dL IgM 16.9 L (40.0-280.0) mg/dL Free Congress LC, Quant 18.80 H (0.33-1.94) mg/dL Free Lambda LC, Quant 6.59 H (0.57-2.63) mg/dL 01/14/19 01/15/19 01/15/19 Range/Units 21:04 06:23 08:23 RBC (4.30-5.90) m/uL Hgb (13.0-17.5) gm/dL Hct (39.0-53.0) % RDW (11.5-15.5) % Lymphocytes # (1.0-4.8) k/uL Carbon Dioxide 37 H (22-30) mmol/L BUN 65 H (9-20) mg/dL Creatinine 1.39 H (0.66-1.25) mg/dL Glucose 180 H (74-99) mg/dL POC Glucose (mg/dL) 247 H 151 H (75-99) mg/dL Magnesium 1.4 L (1.6-2.3) mg/dL Erythropoietin (2.00-30.00) mIU/mL Total Protein (PEP) (6.2-8.2) g/dL IgA (60.0-350.0) mg/dL IgM (40.0-280.0) mg/dL Free Congress LC, Quant (0.33-1.94) mg/dL Free Lambda LC, Quant (0.57-2.63) mg/dL 01/15/19 01/15/19 01/15/19 Range/Units 08:23 12:18 16:50 RBC 2.62 L (4.30-5.90) m/uL Hgb 8.1 L (13.0-17.5) gm/dL Hct 26.0 L (39.0-53.0) % RDW 17.8 H (11.5-15.5) % Lymphocytes # 0.6 L (1.0-4.8) k/uL Carbon Dioxide (22-30) mmol/L BUN (9-20) mg/dL Creatinine (0.66-1.25) mg/dL Glucose (74-99) mg/dL POC Glucose (mg/dL) 133 H 231 H (75-99) mg/dL Magnesium (1.6-2.3) mg/dL Erythropoietin (2.00-30.00) mIU/mL Total Protein (PEP) (6.2-8.2) g/dL IgA (60.0-350.0) mg/dL IgM (40.0-280.0) mg/dL Free Congress LC, Quant (0.33-1.94) mg/dL Free Lambda LC, Quant (0.57-2.63) mg/dL Microbiology - Last 24 Hours (Table) 01/09/19 21:51 Blood Culture - Preliminary Blood No Growth after 120 hours Assessment and Plan Assessment: Generalized weakness, lethargy and altered mental status likely due to metabolic encephalopathy. Improving now Acute on chronic kidney disease stage III. Baseline creatinine around 1.1. C reatinine 2.86 on admission. Improving Acute on chronic CHF with diastolic dysfunction. Currently on oral Lasix. Mild hyperkalemia due to acute kidney injury and also potassium supplementation at home Recent history of bilateral lower extremities cellulitis Status post antibiotic course at rehab Chronic Anemia/anemia of chronic disease Possible right lower lobe pneumonia. Low suspicion. Patient does have T-max 100.9 and no leukocytosis. Currently patient is afebrile. Severe mitral regurgitation with severely calcified mitral annulus. 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 Repeat CBC and BMP was ordered. Continue the home medications and avoid hypotension. Avoid nephrotoxic medications. Nephrology and pulmonary is following. Follow-up renal function PTOT will be consulted. Prognosis is guarded with multiple medical problems and comorbid conditions. Time with Patient: Greater than 30
--- NOTE | 2019-01-17 23:11 | P.PN ---
Subjective Progress Note Date: 01/16/19 Principal diagnosis: Acute exacerbation systolic CHF Acute renal injury possibly cardiorenal Bilateral lower extremity cellulitis Encephalopathy 73-year-old white male patient of Dr. Patel, with recent history of mitral valve repair for history of severe mitral valve regurgitation with severely calcified mitral valve annulus, status post complex mitral valve repair on 10/31/2018. Other medical history includes coronary artery disease with recent drug-eluting stent placement in the LAD in September 2018, chronic diastolic heart failure, hypertension, hyperlipidemia, type 2 diabetes mellitus with peripheral neuropathy, chronic kidney disease, moderately severe COPD, obstructive sleep apnea without home CPAP use, hypertension, obesity, previous tobacco dependence and paroxysmal atrial fibrillation. Following his surgery patient went to subacute rehab at [facility] for further rehabilitation related to significant weakness, and prolonged recovery postoperative mitral valve repair. Patient also had recent hospitalization in November for bilateral lower extremity cellulitis. Patient was treated with Zosyn and vancomycin, the swelling and the blistering have improved. 01/11/2019 Patient is seen and evaluated in room at bedside; patient complaints of difficulty sleeping; no other complaints; per nursing staff patient has been complaining of hallucinating during the night; no such complaints anymore Vital signs are reviewed and remained stable with a temperature of 97.5, pulse 62, respiration 18 and blood pressure 120/61 and SpO2 of 97% on 2 L Laboratory review shows a white blood count of 7.4, hemoglobin 7 and platelet count of 04/14/1989; sodium 139 and potassium of 4.6; BUN/creatinine has been slowly trending down from 2.7 yesterday down to 2.4; magnesium of 1.4; patient is started on electrolyte protocol; patient remains on IV diuretics per cardiology for acute exacerbation CHF and hydralazine is admitted; pulmonary service recommending to stop antibiotics for pneumonia; ID to see patient for trace of antibiotics for cellulitis 01/12/2019 Patient transferred to ICU yesterday- found to be lethargic and somewhat confused; patient's is awake alert and oriented this morning. Patient remains on IV Lasix 40 mg every 8 hours. He made excellent urine output and his net fluid balance is been negative more than 2.5 L over the past 24 hours. Chest x-ray shows improvement in the aeration. There is underlying cardiomegaly. Echocardiogram was repeated and it showed evidence of severe pulmonary hypertension. PA pressures were as high as 69. LV function showed an ejection fraction of 50-55%. RV was severely dilated. RA was mild a dilated. There was mild aortic regurgitation. Mild to moderate mitral regurgitation. Moderate mitral stenosis. Evidence of mitral valve repair. Peak and mean mitral valve gradients were 17 and 6 mmHg by Doppler. Severe pulmonary hypertension was noted. Inferior vena cava was mildly dilated. His proBNP was significantly elevated and he responded to diuretics. He was probably cardiorenal syndrome and his kidney function is also improving and the creatinine is down to 2.1. 01/13/2019 Patient is seen and evaluated in ICU this follow-up sitting up in bedside chair Patient remains on Lasix 40 mg IV every 8 hours with fair urine output and a negative fluid balance over past 24 hours Labs show improvement in creatinine; hemoglobin remained stable at 7.1; no signs of overt bleeding; repeat chest x-ray shows CHF and cardiomegaly; repeat echocardiogram shows an ejection fraction of 50-55% with severe pulmonary hypertension 01/14/2019 Patient is currently lying in the bed comfortably. No complaints of chest pain. Patient still having shortness of breath. Currently saturating well on 2 L nausea cannula oxygen. No complaints of chest pain. Leg swelling is improving. Currently on oral Lasix for 80 mg twice daily. Otherwise patient's hemoglobin came down to 6.8 today. Patient was given 1 unit PRBC and hematology was consulted due to chronic anemia Renal function is improving. Otherwise patient does have generalized weakness and PTOT was consulted. Patient will need rehab transfer 01/15/2019 Patient says that his breathing is better. Still having significant leg swelling. Currently being continued on Lasix 80 mg twice daily. Renal function improving with creatinine level I.39 today. Hemoglobin level improved after blood transfusion. Hemoglobin is 8.1 today. No complaints of nausea vomiting or abdominal pain. Patient is able to sit in the chair comfortably. Still have very minimal activity. 01/16/2019 Patient seems to be more lethargic today. Currently being continued on oral Lasix 80 mg twice daily and Diamox was added. Blood pressure is stable. Patie nt does have good urine output. Creatinine level improved to 1.2. BUN 63 and magnesium level is 1.6. Patient is on magnesium replacement protocol. Currently saturating well on oxygen with another cannula at 2 L. Current medications reviewed. Objective - Vital Signs Vital signs: Vital Signs Temp 98.1 F 01/16/19 15:23 Pulse 68 10/23/19 16:00 Resp 18 01/16/19 16:00 BP 122/54 01/16/19 15:23 Pulse Ox 94 L 01/16/19 15:23 Intake & Output 01/16/19 01/16/19 01/17/19 06:59 18:59 06:59 Intake Total 120 360 Output Total 2520 Balance -2400 360 Weight 97.2 kg Intake: Oral 120 360 Output: Urine 2520 Other: Voiding Method Indwelling Catheter Indwelling Catheter - Exam HEAD: Normocephalic/atraumatic. EYES: Normal reaction of pupils, equal size. Conjunctiva pink, sclera white. NOSE: Clear with pink turbinates. THROAT: No erythema or exudates. NECK: No masses, no JVD, no thyroid enlargement, no adenopathy. CHEST: No chest wall deformity. Symmetrical expansion. LUNGS: Equal air entry with diffuse crackles, but no wheeze, rhonchi or dullness. CVS: Regular rate and rhythm, normal S1 and S2, no gallops, no murmurs, no rubs ABDOMEN: Soft, nontender. No hepatosplenomegaly, normal bowel sounds, no guarding or rigidity. EXTREMITIES: No clubbing, bilateral lower extremity edema, and small healing blisters on his anterior shins, and his bilateral feet with no significant surrounding erythema or warmth, no cyanosis, 2+ pulses and upper and lower extremities. Both lower extremities are Zi wrapped - Labs CBC & Chem 7: 01/17/19 06:27 01/17/19 06:27 Labs: Abnormal Lab Results - Last 24 Hours (Table) 01/14/19 01/14/19 01/15/19 Range/Units 14:45 14:45 20:30 Carbon Dioxide (22-30) mmol/L BUN (9-20) mg/dL Creatinine (0.66-1.25) mg/dL Glucose (74-99) mg/dL POC Glucose (mg/dL) 273 H (75-99) mg/dL Albumin (PEP) 2.88 L (3.80-4.90) g/dL Bqhwo-0-Yovuukska 0.42 H (0.10-0.40) g/dL Hfnuj-5-Zjwlxmggn 0.50 L (0.60-1.00) g/dL IgM 35.8 L (40.0-280.0) mg/dL 01/16/19 01/16/19 01/16/19 Range/Units 06:15 06:29 12:14 Carbon Dioxide 41 H* (22-30) mmol/L BUN 63 H (9-20) mg/dL Creatinine 1.26 H (0.66-1.25) mg/dL Glucose 133 H (74-99) mg/dL POC Glucose (mg/dL) 150 H 218 H (75-99) mg/dL Albumin (PEP) (3.80-4.90) g/dL Dtfxr-3-Inmkdbwdl (0.10-0.40) g/dL Oxqrz-8-Bwfsfnlls (0.60-1.00) g/dL IgM (40.0-280.0) mg/dL 01/16/19 Range/Units 17:09 Carbon Dioxide (22-30) mmol/L BUN (9-20) mg/dL Creatinine (0.66-1.25) mg/dL Glucose (74-99) mg/dL POC Glucose (mg/dL) 259 H (75-99) mg/dL Albumin (PEP) (3.80-4.90) g/dL Vlhdk-4-Vynbfzivk (0.10-0.40) g/dL Ilhzx-4-Bvfrclnqr (0.60-1.00) g/dL IgM (40.0-280.0) mg/dL Microbiology - Last 24 Hours (Table) 01/09/19 21:51 Blood Culture - Final Blood No Growth after 144 hours Assessment and Plan Assessment: Generalized weakness, lethargy and altered mental status likely due to metabolic encephalopathy. Improving now Acute on chronic kidney disease stage III. Baseline creatinine around 1.1. Creatinine 2.86 on admission. Improving Acute on chronic CHF with diastolic dysfunction. Currently on oral Lasix. Mild hyperkalemia due to acute kidney injury and also potassium supplementation at home Recent history of bilateral lower extremities cellulitis Status post antibiotic course at rehab Chronic Anemia/anemia of chronic disease Possible right lower lobe pneumonia. Low suspicion. Patient does have T-max 100.9 and no leukocytosis. Currently patient is afebrile. Severe mitral regurgitation with severely calcified mitral annulus. 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 Repeat CBC and BMP was ordered. Continue the home medications and avoid hypotension. Avoid nephrotoxic medications. Nephrology and pulmonary is following. Follow-up renal function PTOT will be consulted. Prognosis is guarded with multiple medical problems and comorbid conditions. Time with Patient: Greater than 30
--- NOTE | 2019-01-17 23:15 | P.PN ---
Subjective Progress Note Date: 01/17/19 Principal diagnosis: Acute exacerbation systolic CHF Acute renal injury possibly cardiorenal Bilateral lower extremity cellulitis Encephalopathy 73-year-old white male patient of Dr. Patel, with recent history of mitral valve repair for history of severe mitral valve regurgitation with severely calcified mitral valve annulus, status post complex mitral valve repair on 10/31/2018. Other medical history includes coronary artery disease with recent drug-eluting stent placement in the LAD in September 2018, chronic diastolic heart failure, hypertension, hyperlipidemia, type 2 diabetes mellitus with peripheral neuropathy, chronic kidney disease, moderately severe COPD, obstructive sleep apnea without home CPAP use, hypertension, obesity, previous tobacco dependence and paroxysmal atrial fibrillation. Following his surgery patient went to subacute rehab at [facility] for further rehabilitation related to significant weakness, and prolonged recovery postoperative mitral valve repair. Patient also had recent hospitalization in November for bilateral lower extremity cellulitis. Patient was treated with Zosyn and vancomycin, the swelling and the blistering have improved. 01/11/2019 Patient is seen and evaluated in room at bedside; patient complaints of difficulty sleeping; no other complaints; per nursing staff patient has been complaining of hallucinating during the night; no such complaints anymore Vital signs are reviewed and remained stable with a temperature of 97.5, pulse 62, respiration 18 and blood pressure 120/61 and SpO2 of 97% on 2 L Laboratory review shows a white blood count of 7.4, hemoglobin 7 and platelet count of 04/14/1989; sodium 139 and potassium of 4.6; BUN/creatinine has been slowly trending down from 2.7 yesterday down to 2.4; magnesium of 1.4; patient is started on electrolyte protocol; patient remains on IV diuretics per cardiology for acute exacerbation CHF and hydralazine is admitted; pulmonary service recommending to stop antibiotics for pneumonia; ID to see patient for trace of antibiotics for cellulitis 01/12/2019 Patient transferred to ICU yesterday- found to be lethargic and somewhat confused; patient's is awake alert and oriented this morning. Patient remains on IV Lasix 40 mg every 8 hours. He made excellent urine output and his net fluid balance is been negative more than 2.5 L over the past 24 hours. Chest x-ray shows improvement in the aeration. There is underlying cardiomegaly. Echocardiogram was repeated and it showed evidence of severe pulmonary hypertension. PA pressures were as high as 69. LV function showed an ejection fraction of 50-55%. RV was severely dilated. RA was mild a dilated. There was mild aortic regurgitation. Mild to moderate mitral regurgitation. Moderate mitral stenosis. Evidence of mitral valve repair. Peak and mean mitral valve gradients were 17 and 6 mmHg by Doppler. Severe pulmonary hypertension was noted. Inferior vena cava was mildly dilated. His proBNP was significantly elevated and he responded to diuretics. He was probably cardiorenal syndrome and his kidney function is also improving and the creatinine is down to 2.1. 01/13/2019 Patient is seen and evaluated in ICU this follow-up sitting up in bedside chair Patient remains on Lasix 40 mg IV every 8 hours with fair urine output and a negative fluid balance over past 24 hours Labs show improvement in creatinine; hemoglobin remained stable at 7.1; no signs of overt bleeding; repeat chest x-ray shows CHF and cardiomegaly; repeat echocardiogram shows an ejection fraction of 50-55% with severe pulmonary hypertension 01/14/2019 Patient is currently lying in the bed comfortably. No complaints of chest pain. Patient still having shortness of breath. Currently saturating well on 2 L nausea cannula oxygen. No complaints of chest pain. Leg swelling is improving. Currently on oral Lasix for 80 mg twice daily. Otherwise patient's hemoglobin came down to 6.8 today. Patient was given 1 unit PRBC and hematology was consulted due to chronic anemia Renal function is improving. Otherwise patient does have generalized weakness and PTOT was consulted. Patient will need rehab transfer 01/15/2019 Patient says that his breathing is better. Still having significant leg swelling. Currently being continued on Lasix 80 mg twice daily. Renal function improving with creatinine level I.39 today. Hemoglobin level improved after blood transfusion. Hemoglobin is 8.1 today. No complaints of nausea vomiting or abdominal pain. Patient is able to sit in the chair comfortably. Still have very minimal activity. 01/16/2019 Patient seems to be more lethargic today. Currently being continued on oral Lasix 80 mg twice daily and Diamox was added. Blood pressure is stable. Patie nt does have good urine output. Creatinine level improved to 1.2. BUN 63 and magnesium level is 1.6. Patient is on magnesium replacement protocol. Currently saturating well on oxygen with another cannula at 2 L. 01/17/2019 Patient is more awake and alert and oriented. Able to communicate approp riately. Breathing status is much improved. Leg swelling is improving as well. Creatinine level is 1.33 today. No complaints of nausea vomiting or abdominal pain. Tolerating oral diet. Urine noted has been good. Hemoglobin level again dropped down to 7.4 today. Denied any hematemesis or melena. Continued on diuresis with Lasix and Diamox. Cardiology and nephrology is on board. Possible transfer to rehab once the bed is available. Current medications reviewed. Active Medications Acetaminophen (Tylenol Tab) 650 mg PO Q6H PRN PRN Reason: Mild Pain Last Admin: 01/17/19 20:33 Dose: 650 mg Documented by: Acetazolamide (Diamox) 250 mg PO BID [facility] Last Admin: 01/17/19 20:33 Dose: 250 mg Documented by: Albuterol/Ipratropium (Duoneb 0.5 Mg-3 Mg/3 Ml Soln) 3 ml INHALATION RT-Q4H PRN PRN Reason: shortness of breath Last Admin: 01/15/19 12:26 Dose: 3 ml Documented by: Amiodarone HCl (Cordarone) 100 mg PO DAILY [facility] Last Admin: 01/17/19 09:39 Dose: 100 mg Documented by: Aspirin (Aspirin) 81 mg PO DAILY@1700 [facility] Last Admin: 01/17/19 16:52 Dose: 81 mg Documented by: Atorvastatin Calcium (Lipitor) 40 mg PO [facility] Last Admin: 01/17/19 20:33 Dose: 40 mg Documented by: Cholecalciferol (Vitamin D3 (25 Mcg = 1000 Iu)) 2,000 unit PO DAILY@1700 [facility] Last Admin: 01/17/19 16:52 Dose: 2,000 unit Documented by: Clopidogrel Bisulfate (Plavix) 75 mg PO DAILY@0900 [facility] Last Admin: 01/17/19 09:38 Dose: 75 mg Documented by: Darbepoetin Ruddy (Aranesp) 40 mcg SQ TU [facility] Last Admin: 01/15/19 11:19 Dose: 40 mcg Documented by: Escitalopram Oxalate (Lexapro) 10 mg PO [facility] Last Admin: 01/17/19 20:33 Dose: 10 mg Documented by: Furosemide (Lasix) 80 mg PO BID@0900,1600 [facility] Last Admin: 01/17/19 16:52 Dose: 80 mg Documented by: Gabapentin (Neurontin) 100 mg PO BID@0900,2100 [facility] Last Admin: 01/17/19 20:32 Dose: 100 mg Documented by: Heparin Sodium (Porcine) (Heparin) 5,000 unit SQ Q8HR [facility] Last Admin: 01/17/19 16:52 Dose: Not Given Documented by: Hydralazine HCl (Apresoline) 25 mg PO BID [facility] Last Admin: 01/17/19 20:32 Dose: 25 mg Documented by: Ferric Sodium Gluconate 125 mg (/ Sodium Chloride) 110 mls @ 100 mls/hr IVPB DAILY [facility] Stop: 01/18/19 12:31 Last Admin: 01/17/19 09:43 Dose: 100 mls/hr Documented by: Insulin Aspart (Novolog) 0 unit SQ ACHS [facility]; Protocol Last Admin: 01/17/19 20:34 Dose: 2 unit Documented by: Insulin Detemir (Levemir) 12 unit SQ HS [facility] Last Admin: 01/17/19 20:34 Dose: 12 unit Documented by: Lactobacillus Acidoph/Bulgaricus (Lactinex) 1 each PO DAILY@1700 [facility] Last Admin: 01/17/19 16:52 Dose: 1 each Documented by: Magnesium Hydroxide (Milk Of Magnesia) 2,400 mg PO DAILY PRN PRN Reason: Constipation Magnesium Oxide (Mag-Ox) 400 mg PO DAILY [facility] Last Admin: 01/17/19 09:39 Dose: 400 mg Documented by: Metoprolol Tartrate (Lopressor) 50 mg PO BID@0900,2100 [facility] Last Admin: 01/17/19 20:33 Dose: 50 mg Documented by: Miscellaneous Information (Pneumonia Protocol Utilized) 1 each PO ONCE PRN PRN Reason: Per Protocol Miscellaneous Information (Magnesium Per Protocol) 1 each MISCELLANE DAILY PRN; Protocol PRN Reason: Per Protocol Multivitamins (Theragran) 1 each PO DAILY@1700 [facility] Last Admin: 01/17/19 16:52 Dose: 1 each Documented by: Naloxone HCl (Narcan) 0.2 mg IV Q2M PRN PRN Reason: Opioid Reversal Pantoprazole Sodium (Protonix) 40 mg PO AC-BRKFST [facility] Last Admin: 01/17/19 06:27 Dose: 40 mg Documented by: Senna/Docusate Sodium (Senokot-S) 2 each PO BID [facility] Last Admin: 01/17/19 20:32 Dose: 2 each Documented by: Silver Sulfadiazine (Silvadene Cream) 1 applic TOPICAL [facility] Last Admin: 01/17/19 20:35 Dose: 1 applic Documented by: Spironolactone (Aldactone) 25 mg PO DAILY [facility] Last Admin: 01/17/19 09:39 Dose: 25 mg Documented by: Tamsulosin HCl (Flomax) 0.4 mg PO HS [facility] Last Admin: 01/17/19 20:32 Dose: 0.4 mg Documented by: Zinc Sulfate (Orazinc) 220 mg PO DAILY@1700 [facility] Last Admin: 01/17/19 16:52 Dose: 220 mg Documented by: Objective - Vital Signs Vital signs: Vital Signs Temp 98.3 F 01/17/19 16:00 Pulse 64 01/17/19 16:00 Resp 18 01/17/19 16:00 BP 115/66 01/17/19 16:00 Pulse Ox 95 01/17/19 16:00 Intake & Output 01/17/19 01/17/19 01/18/19 06:59 18:59 06:59 Intake Total 120 240 Output Total 2425 Balance -2305 240 Weight 96.6 kg Intake: Oral 120 240 Output: Urine 2425 Other: Voiding Method Indwelling Catheter Indwelling Catheter # Bowel Movements 1 - Exam HEAD: Normocephalic/atraumatic. EYES: Normal reaction of pupils, equal size. Conjunctiva pink, sclera white. NOSE: Clear with pink turbinates. THROAT: No erythema or exudates. NECK: No masses, no JVD, no thyroid enlargement, no adenopathy. CHEST: No chest wall deformity. Symmetrical expansion. LUNGS: Equal air entry with diffuse crackles, but no wheeze, rhonchi or dullness. CVS: Regular rate and rhythm, normal S1 and S2, no gallops, no murmurs, no rubs ABDOMEN: Soft, nontender. No hepatosplenomegaly, normal bowel sounds, no guarding or rigidity. EXTREMITIES: No clubbing, bilateral lower extremity edema, and small healing blisters on his anterior shins, and his bilateral feet with no significant surrounding erythema or warmth, no cyanosis, 2+ pulses and upper and lower extremities. Both lower extremities are Zi wrapped - Labs CBC & Chem 7: 01/17/19 06:27 01/17/19 06:27 Labs: Abnormal Lab Results - Last 24 Hours (Table) 01/17/19 01/17/19 01/17/19 Range/Units 06:27 06:27 12:00 RBC 2.43 L (4.30-5.90) m/uL Hgb 7.4 L (13.0-17.5) gm/dL Hct 24.6 L (39.0-53.0) % MCV 101.1 H (80.0-100.0) fL MCHC 29.9 L (31.0-37.0) g/dL RDW 17.2 H (11.5-15.5) % Lymphocytes # 0.7 L (1.0-4.8) k/uL Eosinophils # 0.8 H (0-0.7) k/uL Carbon Dioxide 40 H (22-30) mmol/L BUN 52 H (9-20) mg/dL Creatinine 1.33 H (0.66-1.25) mg/dL POC Glucose (mg/dL) 134 H (75-99) mg/dL 01/17/19 01/17/19 Range/Units 17:16 20:24 RBC (4.30-5.90) m/uL Hgb (13.0-17.5) gm/dL Hct (39.0-53.0) % MCV (80.0-100.0) fL MCHC (31.0-37.0) g/dL RDW (11.5-15.5) % Lymphocytes # (1.0-4.8) k/uL Eosinophils # (0-0.7) k/uL Carbon Dioxide (22-30) mmol/L BUN (9-20) mg/dL Creatinine (0.66-1.25) mg/dL POC Glucose (mg/dL) 258 H 180 H (75-99) mg/dL Assessment and Plan Assessment: Generalized weakness, lethargy and altered mental status likely due to metabolic encephalopathy. Improving now Acute on chronic kidney disease stage III. Baseline creatinine around 1.1. Cre atinine 2.86 on admission. Improving Acute on chronic CHF with diastolic dysfunction. Currently on oral Lasix. Metabolic alkalosis/contraction alkalosis secondary to diuresis. Started on acetazolamide. Mild hyperkalemia due to acute kidney injury and also potassium supplementation at home Recent history of bilateral lower extremities cellulitis Status post antibiotic course at rehab Chronic Anemia/anemia of chronic disease Possible right lower lobe pneumonia. Low suspicion. Patient does have T-max 100.9 and no leukocytosis. Currently patient is afebrile. Severe mitral regurgitation with severely calcified mitral annulus. 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 Repeat CBC and BMP was ordered. Continue the home medications and avoid hypotension. Avoid nephrotoxic medications. Nephrology and pulmonary is following. Follow-up renal function PTOT will be consulted. Prognosis is guarded with multiple medical problems and comorbid conditions. Time with Patient: Greater than 30
[2019-01-18] MEDS: HEPARIN SODIUM,PORCINE 5,000 UNIT/ML 1 ML VIAL SQ SCH ×3 (00:07→16:52)
[2019-01-18 06:20] LABS: Glucose,Whole Blood 141 mg/dL (75-99)
[2019-01-18] MEDS: PANTOPRAZOLE 40 MG TABLET PO SCH (07:03)
[2019-01-18] MEDS: INSULIN ASPART (NovoLOG) 100 UNIT/ML VIAL SQ SCH ×4 (07:03→21:56)
[2019-01-18 07:18] LABS: Anisocytosis Slight; Basophils % (A) 1 %; Eosinophils # (A) 0.7 k/uL (0-0.7); Eosinophils % (A) 11 %; HCT 23.9 % (39.0-53.0); HGB 7.2 gm/dL (13.0-17.5); Hypochromasia Marked; Lymphocytes # (A) 0.8 k/uL (1.0-4.8); Lymphocytes % (A) 12 %; MCH 30.9 pg (25.0-35.0); MCHC 30.2 g/dL (31.0-37.0); Macrocytosis Moderate; Mean Platelet Volume 6.2; Monocytes # (A) 0.3 k/uL (0-1.0); Monocytes % (A) 5 %; Neutrophils # (A) 4.4 k/uL (1.3-7.7); Neutrophils % (A) 70 %; Platelet Count 217 k/uL (150-450); RBC 2.35 m/uL (4.30-5.90); RDW 17.1 % (11.5-15.5); WBC 6.3 k/uL (3.8-10.6)
[2019-01-18 07:31] LABS: Calcium 8.5 mg/dL (8.4-10.2); Magnesium 1.7 mg/dL (1.6-2.3)
--- NOTE | 2019-01-18 08:29 | P.PN ---
Subjective Patient is seen in follow-up for acute kidney injury. Renal function is stable. Creatinine 1.27 today. No vomiting or diarrhea. Urine output has been good. Denies active chest pain or shortness of breath. Edema improving. Status post blood transfusion on January 14. Hemoglobin 7.2 today. No active bleeding. Currently maintained on Lasix 80 mg orally twice daily and Diamox 250 mg twice daily. Vital signs are stable. General: The patient appeared well nourished and normally developed. HEENT: Head exam is unremarkable. Neck is without jugular venous distension. LUNGS: Breath sounds decreased. HEART: Rate and Rhythm are regular. First and second heart sounds normal. No murmurs, rubs or gallops. ABDOMEN: Abdominal exam reveals normal bowel sounds. Non-tender and non- distended. EXTREMITITES: Trace edema. Objective - Vital Signs Vital signs: Vital Signs Temp 98.3 F 01/17/19 16:00 Pulse 63 01/18/19 04:00 Resp 18 01/18/19 04:00 BP 103/56 01/18/19 04:00 Pulse Ox 95 01/18/19 04:00 Intake & Output 01/17/19 01/18/19 01/18/19 18:59 06:59 18:59 Intake Total 240 Output Total 700 Balance 240 -700 Weight 96 kg Intake: Oral 240 Output: Urine 700 Other: Voiding Method Indwelling Catheter Indwelling Catheter - Labs CBC & Chem 7: 01/18/19 06:24 01/18/19 06:24 Labs: Abnormal Lab Results - Last 24 Hours (Table) 01/17/19 01/17/19 01/17/19 Range/Units 12:00 17:16 20:24 RBC (4.30-5.90) m/uL Hgb (13.0-17.5) gm/dL Hct (39.0-53.0) % MCV (80.0-100.0) fL MCHC (31.0-37.0) g/dL RDW (11.5-15.5) % Lymphocytes # (1.0-4.8) k/uL Carbon Dioxide (22-30) mmol/L BUN (9-20) mg/dL Creatinine (0.66-1.25) mg/dL Glucose (74-99) mg/dL POC Glucose (mg/dL) 134 H 258 H 180 H (75-99) mg/dL 01/18/19 01/18/19 01/18/19 Range/Units 06:19 06:24 06:24 RBC 2.35 L (4.30-5.90) m/uL Hgb 7.2 L (13.0-17.5) gm/dL Hct 23.9 L (39.0-53.0) % MCV 102.0 H (80.0-100.0) fL MCHC 30.2 L (31.0-37.0) g/dL RDW 17.1 H (11.5-15.5) % Lymphocytes # 0.8 L (1.0-4.8) k/uL Carbon Dioxide 39 H (22-30) mmol/L BUN 49 H (9-20) mg/dL Creatinine 1.27 H (0.66-1.25) mg/dL Glucose 119 H (74-99) mg/dL POC Glucose (mg/dL) 141 H (75-99) mg/dL Assessment and Plan Plan: Assessment: 1. Acute kidney injury mostly prerenal secondary to cardiorenal syndrome. Renal function improved since admission. Creatinine 1.27 today. 2. 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 3. Volume overload. Improving with diuresis. 4. Anemia. Stool for occult blood negative. Iron deficiency noted - status post 3 doses of IV iron. No active bleeding. Also on aranesp. Status post blood transfusion on January 14. 5. Acute on chronic diastolic CHF with mild to moderate mitral regurgitation, moderate tricuspid regurgitation and severe pulmonary hypertension. 6. Hypomagnesemia secondary to diuresis. Better post replacement. 7. Insulin-dependent diabetes mellitus. 8. Metabolic alkalosis secondary to diuresis. Better. Plan: Maintain Lasix 80 mg bid. Maintain Diamox 250 mg twice daily - can likely be discontinued in the next 24- 48 hours. Avoid nephrotoxins. Repeat electrolytes in the morning.
[2019-01-18] MEDS: SPIRONOLACTONE 25 MG TAB PO SCH (09:34)
[2019-01-18] MEDS: MAGNESIUM OXIDE 400 MG TAB PO SCH (09:34)
[2019-01-18] MEDS: METOPROLOL TARTRATE 50 MG TAB PO SCH ×2 (09:34→21:57)
[2019-01-18] MEDS: SENNOSIDES-DOCUSATE SODIUM 1 EACH TAB PO SCH ×2 (09:34→21:57)
[2019-01-18] MEDS: GABAPENTIN 100 MG CAP PO SCH ×2 (09:34→21:57)
[2019-01-18] MEDS: FUROSEMIDE 80 MG TAB PO SCH ×2 (09:34→16:52)
[2019-01-18] MEDS: hydrALAZINE HCL 25 MG TAB PO SCH ×2 (09:34→21:57)
[2019-01-18] MEDS: CLOPIDOGREL 75 MG TAB PO SCH (09:34)
[2019-01-18] MEDS: acetaZOLAMIDE 250 MG TAB PO SCH ×2 (09:34→21:56)
[2019-01-18] MEDS: ACETAMINOPHEN TAB 325 MG TAB PO PRN ×2 (09:35→22:08)
[2019-01-18] MEDS: AMIODARONE 100 MG TAB PO SCH (09:35)
[2019-01-18] MEDS: SODIUM FERRIC GLUCONAT-SUCROSE 125 MG in SODIUM CHLORIDE 0.9% 100 ML IVPB SCH (09:45)
[2019-01-18 12:09] LABS: Glucose,Whole Blood 187 mg/dL (75-99)
--- NOTE | 2019-01-18 13:03 | P.PN ---
Subjective Patient is resting comfortably in bed. Does not appear short of breath He still is edematous in the lower extremities No obvious JVD Breath sounds are reduced bilaterally with no rhonchi no crackles Heart sounds S1-S2 are soft soft systolic murmur Abdomen is soft nontender Impression Coronary artery disease status post stenting Severe mitral regurgitation with calcific mitral valve disease status post mitral valve repair Acute and chronic congestive heart failure, diastolic exacerbated by severe anemia Receiving iron therapy at this time Cardiorenal syndrome Hemoglobin 7.2 Sodium 142, potassium 4.0, BUN 49, creatinine 1.27 Continue by mouth Lasix 80 mg twice daily Continue Aldactone Continue aspirin and Plavix to Continue low-dose amiodarone 100 mg by mouth daily Continue atorvastatin 40 mg by mouth daily His main issue still remains severe anemia which is worsening his heart failure status Objective - Vital Signs Vital signs: Vital Signs Temp 98.1 F 01/18/19 08:20 Pulse 68 01/18/19 08:20 Resp 18 01/18/19 08:20 BP 127/59 01/18/19 08:20 Pulse Ox 98 01/18/19 08:20 Intake & Output 01/17/19 01/18/19 01/18/19 18:59 06:59 18:59 Intake Total 240 360 Output Total 700 Balance 240 -700 360 Weight 96 kg Intake: Oral 240 360 Output: Urine 700 Other: Voiding Method Indwelling Catheter Indwelling Catheter Indwelling Catheter - Labs CBC & Chem 7: 01/18/19 06:24 01/18/19 06:24 Labs: Abnormal Lab Results - Last 24 Hours (Table) 01/17/19 01/17/19 01/18/19 Range/Units 17:16 20:24 06:19 RBC (4.30-5.90) m/uL Hgb (13.0-17.5) gm/dL Hct (39.0-53.0) % MCV (80.0-100.0) fL MCHC (31.0-37.0) g/dL RDW (11.5-15.5) % Lymphocytes # (1.0-4.8) k/uL Carbon Dioxide (22-30) mmol/L BUN (9-20) mg/dL Creatinine (0.66-1.25) mg/dL Glucose (74-99) mg/dL POC Glucose (mg/dL) 258 H 180 H 141 H (75-99) mg/dL 01/18/19 01/18/19 01/18/19 Range/Units 06:24 06:24 12:06 RBC 2.35 L (4.30-5.90) m/uL Hgb 7.2 L (13.0-17.5) gm/dL Hct 23.9 L (39.0-53.0) % MCV 102.0 H (80.0-100.0) fL MCHC 30.2 L (31.0-37.0) g/dL RDW 17.1 H (11.5-15.5) % Lymphocytes # 0.8 L (1.0-4.8) k/uL Carbon Dioxide 39 H (22-30) mmol/L BUN 49 H (9-20) mg/dL Creatinine 1.27 H (0.66-1.25) mg/dL Glucose 119 H (74-99) mg/dL POC Glucose (mg/dL) 187 H (75-99) mg/dL
[2019-01-18 15:26] VITALS: BMI 34.1
[2019-01-18] MEDS: ASPIRIN 81 MG PO SCH (16:52)
[2019-01-18] MEDS: CHOLECALCIFEROL 1,000 UNIT TAB PO SCH (16:52)
[2019-01-18] MEDS: ZINC SULFATE 220 MG CAP PO SCH (16:52)
[2019-01-18] MEDS: MULTIVITAMINS, THERA 1 EACH TAB PO SCH (16:52)
[2019-01-18] MEDS: LACTOBACILLUS ACIDOPH & BULGAR 1 EACH PACKET PO SCH (16:52)
[2019-01-18 17:20] LABS: Glucose,Whole Blood 194 mg/dL (75-99)
[2019-01-18 20:48] LABS: Glucose,Whole Blood 231 mg/dL (75-99)
[2019-01-18] MEDS: INSULIN DETEMIR (LEVEMIR) 100 UNIT/ML SYR SQ SCH (21:56)
[2019-01-18] MEDS: TAMSULOSIN 0.4 MG CAP.ER.24H PO SCH (21:57)
[2019-01-18] MEDS: ESCITALOPRAM 10 MG TAB PO SCH (21:57)
[2019-01-18] MEDS: ATORVASTATIN 40 MG TAB PO SCH (21:57)
[2019-01-19] MEDS: HEPARIN SODIUM,PORCINE 5,000 UNIT/ML 1 ML VIAL SQ SCH ×3 (01:11→09:58)
[2019-01-19 06:13] LABS: Glucose,Whole Blood 116 mg/dL (75-99)
[2019-01-19 06:27] LABS: Calcium 8.6 mg/dL (8.4-10.2); Magnesium 1.7 mg/dL (1.6-2.3); Potassium 3.9 mmol/L (3.5-5.1)
[2019-01-19] MEDS: INSULIN ASPART (NovoLOG) 100 UNIT/ML VIAL SQ SCH ×4 (06:58→21:29)
[2019-01-19] MEDS: PANTOPRAZOLE 40 MG TABLET PO SCH (07:01)
[2019-01-19] MEDS: GABAPENTIN 100 MG CAP PO SCH ×2 (09:57→21:28)
[2019-01-19] MEDS: acetaZOLAMIDE 250 MG TAB PO SCH ×2 (09:57→21:28)
[2019-01-19] MEDS: hydrALAZINE HCL 25 MG TAB PO SCH ×2 (09:57→21:28)
[2019-01-19] MEDS: CLOPIDOGREL 75 MG TAB PO SCH (09:57)
[2019-01-19] MEDS: SPIRONOLACTONE 25 MG TAB PO SCH (09:58)
[2019-01-19] MEDS: MAGNESIUM OXIDE 400 MG TAB PO SCH (09:58)
[2019-01-19] MEDS: METOPROLOL TARTRATE 50 MG TAB PO SCH ×2 (09:58→21:28)
[2019-01-19] MEDS: ZINC SULFATE 220 MG CAP PO SCH (09:58)
[2019-01-19] MEDS: AMIODARONE 100 MG TAB PO SCH (09:58)
[2019-01-19] MEDS: FUROSEMIDE 80 MG TAB PO SCH ×2 (09:58→15:23)
[2019-01-19 10:56] LABS: Anisocytosis Slight; Basophils # (A) 0.1 k/uL (0-0.2); Basophils % (A) 1 %; Eosinophils # (A) 0.7 k/uL (0-0.7); Eosinophils % (A) 11 %; HCT 23.7 % (39.0-53.0); Hypochromasia Marked; Lymphocytes # (A) 0.7 k/uL (1.0-4.8); Lymphocytes % (A) 11 %; MCH 30.5 pg (25.0-35.0); MCHC 29.3 g/dL (31.0-37.0); MCV 103.8 fL (80.0-100.0); Macrocytosis Moderate; Mean Platelet Volume 7.2; Monocytes # (A) 0.4 k/uL (0-1.0); Monocytes % (A) 6 %; Neutrophils # (A) 4.3 k/uL (1.3-7.7); Neutrophils % (A) 69 %; Platelet Count 235 k/uL (150-450); RBC 2.28 m/uL (4.30-5.90); RDW 17.1 % (11.5-15.5); WBC 6.2 k/uL (3.8-10.6)
[2019-01-19 11:49] LABS: Glucose,Whole Blood 214 mg/dL (75-99)
[2019-01-19] MEDS: SENNOSIDES-DOCUSATE SODIUM 1 EACH TAB PO SCH ×2 (12:19→21:28)
--- NOTE | 2019-01-19 13:52 | PN ---
PROGRESS NOTE Patient is seen for followup for acute kidney injury and chronic kidney disease. His serum creatinine has been staying at 1.3-1.2 mg/dL. The creatinine has improved from initial reading of 2.86 on admission. No significant complaints today. The patient is maintained on oral Lasix. PHYSICAL EXAMINATION: On examination, blood pressure was 137/70, heart rate 67 per minute, he is afebrile. Examination of the heart S1, S2. Examination of the lungs, bilateral breath sounds are heard. Abdomen is soft, nontender. Examination of lower extremities shows no significant edema. Left lower extremity is wrapped. LABS: Show sodium 139, potassium 3.9, chloride 101, BUN 49, creatinine 1.35. ASSESSMENT: 1. Acute kidney injury, nonoliguric, prerenal from cardiorenal syndrome, currently improved. 2. Status post mitral valve repair October of 2018. 3. Volume overload, improved with diuresis. Continue with current dose of oral Lasix. 4. Anemia with iron deficiency status post IV iron and history of packed RBCs transfusion on January 14. 5. Metabolic alkalosis secondary to diuresis, now improved. 6. Hypomagnesemia secondary to diuretics status post replacement. PLAN: Continue with Diamox. Continue with current dose of Lasix. Repeat labs in a.m. Continue to encourage increased oral intake as well as increased activity. MMODL / IJN: [id number] /
--- NOTE | 2019-01-19 15:14 | P.PN ---
Subjective Progress Note Date: 01/19/19 TPatient is a 73-year-old male with a past medical history significant for CAD status post stenting, COPD, chronic diastolic heart failure, mitral valve disease status post mitral valve repair, COPD, HENRY, diabetes and CKD who presented with complaints of shortness of breath. He was admitted for treatment of CHF exacerbation and was started on IV Lasix. He has been transitioned to Lasix 80 mg orally twice daily as of January 16. teletypesetter monitor is a sinus rhythm. Echocardiogram revealed EF of 50-55% with moderate concentric left ventricular hypertrophy, moderate aortic valve sclerosis, mild aortic regurgitation, no aortic stenosis, mild to moderate mitral regurgitation, moderate tricuspid regurgitation, severe pulmonary hypertension. He is followed by nephrology, infectious disease as well. Patient states that he is breathing is a little bit better from yesterday. He denies any shortness of breath or cough. WBC 7.0, BUN 49 creatinine 1.35 Gen: This is a 73-year-old male. Patient is resting in bed and appears to be comfortable. HEENT: Head is atraumatic, normocephalic. Pupils equal, round. Sclerae is anicteric. NECK: Supple. No JVD. No lymphadenopathy. No thyromegaly. LUNGS: Crackles in the right base and diminished bilaterally. No intercostal retractions. HEART: Regular rate and rhythm. Systolic murmur. ABDOMEN: Soft. Bowel sounds are present. No masses. No tenderness. Burrell catheter in place EXTREMITIES: 1+ pedal edema. No calf tenderness. NEUROLOGICAL: Patient is awake, alert and oriented x3. Cranial nerves 2 through 12 are grossly intact. Assessment: Acute on chronic diastolic failure with mild to moderate mitral regurgitation, moderate tricuspid regurgitation and severe pulmonary hypertension Status post mitral valve repair in October 2018 Acute kidney injury Anemia of chronic disease Hypo-magnesium status post replacement Dyslipidemia Diabetes mellitus type 2 insulin requiring Plan: Repeat BMP in the morning Repeat chest x-ray tomorrow Continue Lasix 80 mg oral twice daily Continue aspirin 81 mg daily, Lipitor 40 mg daily, amiodarone 100 mg daily, Lopressor 50 mg twice daily, Aldactone 25 mg daily Further recommendations to follow based upon clinical course. Nurse practitioner note has been reviewed, I agree with documented findings and plan of care. Patient was seen and examined. Objective - Vital Signs Vital signs: Vital Signs Temp 98.2 F 01/19/19 08:00 Pulse 67 01/19/19 08:00 Resp 16 01/19/19 08:00 BP 137/70 01/19/19 08:00 Pulse Ox 99 01/19/19 09:54 Intake & Output 01/18/19 01/19/19 01/19/19 18:59 06:59 18:59 Intake Total 820 360 240 Output Total 1275 Balance 820 -915 240 Weight 96 kg 95.6 kg Intake: Intake, IV Titration 100 Amount Sodium Ferric Gluconat- 100 Sucrose 125 mg In Sodium Chloride 0.9% 100 ml @ 100 mls/hr IVPB DAILY FOR[facility]LY [facility], [facility]–1983 Rx#:[id number] Oral 720 360 240 Output: Urine 1275 Other: Voiding Method Indwelling Catheter Indwelling Catheter # Voids 2 - Labs CBC & Chem 7: 01/19/19 05:59 01/19/19 05:59 Labs: Abnormal Lab Results - Last 24 Hours (Table) 01/18/19 01/18/19 01/19/19 Range/Units 17:02 20:46 05:59 RBC (4.30-5.90) m/uL Hgb (13.0-17.5) gm/dL Hct (39.0-53.0) % MCV (80.0-100.0) fL MCHC (31.0-37.0) g/dL RDW (11.5-15.5) % Lymphocytes # (1.0-4.8) k/uL Carbon Dioxide 35 H (22-30) mmol/L BUN 49 H (9-20) mg/dL Creatinine 1.35 H (0.66-1.25) mg/dL Glucose 115 H (74-99) mg/dL POC Glucose (mg/dL) 194 H 231 H (75-99) mg/dL 01/19/19 01/19/19 01/19/19 Range/Units 05:59 06:12 11:45 RBC 2.28 L (4.30-5.90) m/uL Hgb 7.0 L (13.0-17.5) gm/dL Hct 23.7 L (39.0-53.0) % MCV 103.8 H (80.0-100.0) fL MCHC 29.3 L (31.0-37.0) g/dL RDW 17.1 H (11.5-15.5) % Lymphocytes # 0.7 L (1.0-4.8) k/uL Carbon Dioxide (22-30) mmol/L BUN (9-20) mg/dL Creatinine (0.66-1.25) mg/dL Glucose (74-99) mg/dL POC Glucose (mg/dL) 116 H 214 H (75-99) mg/dL
[2019-01-19] MEDS: ASPIRIN 81 MG PO SCH (15:23)
[2019-01-19] MEDS: MULTIVITAMINS, THERA 1 EACH TAB PO SCH (15:23)
[2019-01-19] MEDS: CHOLECALCIFEROL 1,000 UNIT TAB PO SCH (15:23)
[2019-01-19] MEDS: LACTOBACILLUS ACIDOPH & BULGAR 1 EACH PACKET PO SCH (15:24)
[2019-01-19 17:01] LABS: Glucose,Whole Blood 151 mg/dL (75-99)
[2019-01-19] MEDS: ESCITALOPRAM 10 MG TAB PO SCH (21:28)
[2019-01-19] MEDS: ATORVASTATIN 40 MG TAB PO SCH (21:28)
[2019-01-19] MEDS: TAMSULOSIN 0.4 MG CAP.ER.24H PO SCH (21:28)
[2019-01-19 21:29] LABS: Glucose,Whole Blood 229 mg/dL (75-99)
[2019-01-19] MEDS: INSULIN DETEMIR (LEVEMIR) 100 UNIT/ML SYR SQ SCH (21:29)
[2019-01-19] MEDS: ACETAMINOPHEN TAB 325 MG TAB PO PRN (21:35)
--- NOTE | 2019-01-19 23:50 | P.PN ---
Subjective Progress Note Date: 01/18/19 Principal diagnosis: Acute exacerbation systolic CHF Acute renal injury possibly cardiorenal Bilateral lower extremity cellulitis Encephalopathy 73-year-old white male patient of Dr. Patel, with recent history of mitral valve repair for history of severe mitral valve regurgitation with severely calcified mitral valve annulus, status post complex mitral valve repair on 10/31/2018. Other medical history includes coronary artery disease with recent drug-eluting stent placement in the LAD in September 2018, chronic diastolic heart failure, hypertension, hyperlipidemia, type 2 diabetes mellitus with peripheral neuropathy, chronic kidney disease, moderately severe COPD, obstructive sleep apnea without home CPAP use, hypertension, obesity, previous tobacco dependence and paroxysmal atrial fibrillation. Following his surgery patient went to subacute rehab at [facility] for further rehabilitation related to significant weakness, and prolonged recovery postoperative mitral valve repair. Patient also had recent hospitalization in November for bilateral lower extremity cellulitis. Patient was treated with Zosyn and vancomycin, the swelling and the blistering have improved. 01/11/2019 Patient is seen and evaluated in room at bedside; patient complaints of difficulty sleeping; no other complaints; per nursing staff patient has been complaining of hallucinating during the night; no such complaints anymore Vital signs are reviewed and remained stable with a temperature of 97.5, pulse 62, respiration 18 and blood pressure 120/61 and SpO2 of 97% on 2 L Laboratory review shows a white blood count of 7.4, hemoglobin 7 and platelet count of 04[birth year]14/1989; sodium 139 and potassium of 4.6; BUN/creatinine has been slowly trending down from 2.7 yesterday down to 2.4; magnesium of 1.4; patient is started on electrolyte protocol; patient remains on IV diuretics per cardiology for acute exacerbation CHF and hydralazine is admitted; pulmonary service recommending to stop antibiotics for pneumonia; ID to see patient for trace of antibiotics for cellulitis 01/12/2019 Patient transferred to ICU yesterday- found to be lethargic and somewhat confused; patient's is awake alert and oriented this morning. Patient remains on IV Lasix 40 mg every 8 hours. He made excellent urine output and his net fluid balance is been negative more than 2.5 L over the past 24 hours. Chest x-ray shows improvement in the aeration. There is underlying cardiomegaly. Echocardiogram was repeated and it showed evidence of severe pulmonary hypertension. PA pressures were as high as 69. LV function showed an ejection fraction of 50-55%. RV was severely dilated. RA was mild a dilated. There was mild aortic regurgitation. Mild to moderate mitral regurgitation. Moderate mitral stenosis. Evidence of mitral valve repair. Peak and mean mitral valve gradients were 17 and 6 mmHg by Doppler. Severe pulmonary hypertension was noted. Inferior vena cava was mildly dilated. His proBNP was significantly elevated and he responded to diuretics. He was probably cardiorenal syndrome and his kidney function is also improving and the creatinine is down to 2.1. 01/13/2019 Patient is seen and evaluated in ICU this follow-up sitting up in bedside chair Patient remains on Lasix 40 mg IV every 8 hours with fair urine output and a negative fluid balance over past 24 hours Labs show improvement in creatinine; hemoglobin remained stable at 7.1; no signs of overt bleeding; repeat chest x-ray shows CHF and cardiomegaly; repeat echocardiogram shows an ejection fraction of 50-55% with severe pulmonary hypertension 01/14/2019 Patient is currently lying in the bed comfortably. No complaints of chest pain. Patient still having shortness of breath. Currently saturating well on 2 L nausea cannula oxygen. No complaints of chest pain. Leg swelling is improving. Currently on oral Lasix for 80 mg twice daily. Otherwise patient's hemoglobin came down to 6.8 today. Patient was given 1 unit PRBC and hematology was consulted due to chronic anemia Renal function is improving. Otherwise patient does have generalized weakness and PTOT was consulted. Patient will need rehab transfer 01/15/2019 Patient says that his breathing is better. Still having significant leg swelling. Currently being continued on Lasix 80 mg twice daily. Renal function improving with creatinine level I.39 today. Hemoglobin level improved after blood transfusion. Hemoglobin is 8.1 today. No complaints of nausea vomiting or abdominal pain. Patient is able to sit in the chair comfortably. Still have very minimal activity. 01/16/2019 Patient seems to be more lethargic today. Currently being continued on oral Lasix 80 mg twice daily and Diamox was added. Blood pressure is stable. Patie nt does have good urine output. Creatinine level improved to 1.2. BUN 63 and magnesium level is 1.6. Patient is on magnesium replacement protocol. Currently saturating well on oxygen with another cannula at 2 L. 01/17/2019 Patient is more awake and alert and oriented. Able to communicate approp riately. Breathing status is much improved. Leg swelling is improving as well. Creatinine level is 1.33 today. No complaints of nausea vomiting or abdominal pain. Tolerating oral diet. Urine noted has been good. Hemoglobin level again dropped down to 7.4 today. Denied any hematemesis or melena. Continued on diuresis with Lasix and Diamox. Cardiology and nephrology is on board. Possible transfer to rehab once the bed is available. 01/18/2019 Patient is currently awake alert and oriented. Still having generalized weakness. Bilateral leg swelling probably minimal. Creatinine level is 1.27 today. Hemoglobin dropped to 7.2. Patient is currently being continued on Lasix 80 mg twice a day. Cardiology and nephrology is following. Patient's family is considering transfer to [facility] with palliative care. Denied any chest pain or short of breath. No fever no chills. No other acute overnight issues. Current medications reviewed. Active Medications Acetaminophen (Tylenol Tab) 650 mg PO Q6H PRN PRN Reason: Mild Pain Last Admin: 01/17/19 20:33 Dose: 650 mg Documented by: Acetazolamide (Diamox) 250 mg PO BID [facility] Last Admin: 01/17/19 20:33 Dose: 250 mg Documented by: Albuterol/Ipratropium (Duoneb 0.5 Mg-3 Mg/3 Ml Soln) 3 ml INHALATION RT-Q4H PRN PRN Reason: shortness of breath Last Admin: 01/15/19 12:26 Dose: 3 ml Documented by: Amiodarone HCl (Cordarone) 100 mg PO DAILY [facility] Last Admin: 01/17/19 09:39 Dose: 100 mg Documented by: Aspirin (Aspirin) 81 mg PO DAILY@1700 [facility] Last Admin: 01/17/19 16:52 Dose: 81 mg Documented by: Atorvastatin Calcium (Lipitor) 40 mg PO HS [facility] Last Admin: 01/17/19 20:33 Dose: 40 mg Documented by: Cholecalciferol (Vitamin D3 (25 Mcg = 1000 Iu)) 2,000 unit PO DAILY@1700 [facility] Last Admin: 01/17/19 16:52 Dose: 2,000 unit Documented by: Clopidogrel Bisulfate (Plavix) 75 mg PO DAILY@0900 [facility] Last Admin: 01/17/19 09:38 Dose: 75 mg Documented by: Darbepoetin Ruddy (Aranesp) 40 mcg SQ TU [facility] Last Admin: 01/15/19 11:19 Dose: 40 mcg Documented by: Escitalopram Oxalate (Lexapro) 10 mg PO [facility] Last Admin: 01/17/19 20:33 Dose: 10 mg Documented by: Furosemide (Lasix) 80 mg PO BID@0900,1600 [facility] Last Admin: 01/17/19 16:52 Dose: 80 mg Documented by: Gabapentin (Neurontin) 100 mg PO BID@0900,2100 [facility] Last Admin: 01/17/19 20:32 Dose: 100 mg Documented by: Heparin Sodium (Porcine) (Heparin) 5,000 unit SQ Q8HR [facility] Last Admin: 01/17/19 16:52 Dose: Not Given Documented by: Hydralazine HCl (Apresoline) 25 mg PO BID [facility] Last Admin: 01/17/19 20:32 Dose: 25 mg Documented by: Ferric Sodium Gluconate 125 mg (/ Sodium Chloride) 110 mls @ 100 mls/hr IVPB DAILY [facility] Stop: 01/18/19 12:31 Last Admin: 01/17/19 09:43 Dose: 100 mls/hr Documented by: Insulin Aspart (Novolog) 0 unit SQ [facility]; Protocol Last Admin: 01/17/19 20:34 Dose: 2 unit Documented by: Insulin Detemir (Levemir) 12 unit SQ [facility] Last Admin: 01/17/19 20:34 Dose: 12 unit Documented by: Lactobacillus Acidoph/Bulgaricus (Lactinex) 1 each PO DAILY@1700 [facility] Last Admin: 01/17/19 16:52 Dose: 1 each Documented by: Magnesium Hydroxide (Milk Of Magnesia) 2,400 mg PO DAILY PRN PRN Reason: Constipation Magnesium Oxide (Mag-Ox) 400 mg PO DAILY [facility] Last Admin: 01/17/19 09:39 Dose: 400 mg Documented by: Metoprolol Tartrate (Lopressor) 50 mg PO BID@0900,2100 [facility] Last Admin: 01/17/19 20:33 Dose: 50 mg Documented by: Miscellaneous Information (Pneumonia Protocol Utilized) 1 each PO ONCE PRN PRN Reason: Per Protocol Miscellaneous Information (Magnesium Per Protocol) 1 each MISCELLANE DAILY PRN; Protocol PRN Reason: Per Protocol Multivitamins (Theragran) 1 each PO DAILY@1700 [facility] Last Admin: 01/17/19 16:52 Dose: 1 each Documented by: Naloxone HCl (Narcan) 0.2 mg IV Q2M PRN PRN Reason: Opioid Reversal Pantoprazole Sodium (Protonix) 40 mg PO AC-BRKFST [facility] Last Admin: 01/17/19 06:27 Dose: 40 mg Documented by: Senna/Docusate Sodium (Senokot-S) 2 each PO BID [facility] Last Admin: 01/17/19 20:32 Dose: 2 each Documented by: Silver Sulfadiazine (Silvadene Cream) 1 applic TOPICAL [facility] Last Admin: 01/17/19 20:35 Dose: 1 applic Documented by: Spironolactone (Aldactone) 25 mg PO DAILY [facility] Last Admin: 01/17/19 09:39 Dose: 25 mg Documented by: Tamsulosin HCl (Flomax) 0.4 mg PO [facility] Last Admin: 01/17/19 20:32 Dose: 0.4 mg Documented by: Zinc Sulfate (Orazinc) 220 mg PO DAILY@1700 [facility] Last Admin: 01/17/19 16:52 Dose: 220 mg Documented by: Objective - Vital Signs Vital signs: Vital Signs Temp 98.7 F 01/18/19 16:15 Pulse 62 01/18/19 16:15 Resp 18 01/18/19 16:15 BP 120/58 01/18/19 16:15 Pulse Ox 97 01/18/19 17:42 Intake & Output 01/18/19 01/18/19 01/19/19 06:59 18:59 06:59 Intake Total 820 360 Output Total 700 325 Balance -700 820 35 Weight 96 kg 96 kg Intake: Intake, IV Titration 100 Amount Sodium Ferric Gluconat- 100 Sucrose 125 mg In Sodium Chloride 0.9% 100 ml @ 100 mls/hr IVPB DAILY [facility] Rx#:[id number] Oral 720 360 Output: Urine 700 325 Other: Voiding Method Indwelling Catheter Indwelling Catheter # Voids 2 - Exam HEAD: Normocephalic/atraumatic. EYES: Normal reaction of pupils, equal size. Conjunctiva pink, sclera white. NOSE: Clear with pink turbinates. THROAT: No erythema or exudates. NECK: No masses, no JVD, no thyroid enlargement, no adenopathy. CHEST: No chest wall deformity. Symmetrical expansion. LUNGS: Equal air entry with diffuse crackles, but no wheeze, rhonchi or du llness. CVS: Regular rate and rhythm, normal S1 and S2, no gallops, no murmurs, no rubs ABDOMEN: Soft, nontender. No hepatosplenomegaly, normal bowel sounds, no guarding or rigidity. EXTREMITIES: No clubbing, bilateral lower extremity edema, and small healing blisters on his anterior shins, and his bilateral feet with no significant surrounding erythema or warmth, no cyanosis, 2+ pulses and upper and lower extremities. Both lower extremities are Zi wrapped - Labs CBC & Chem 7: 01/19/19 05:59 01/19/19 05:59 Labs: Abnormal Lab Results - Last 24 Hours (Table) 01/18/19 01/18/19 01/18/19 Range/Units 06:19 06:24 06:24 RBC 2.35 L (4.30-5.90) m/uL Hgb 7.2 L (13.0-17.5) gm/dL Hct 23.9 L (39.0-53.0) % MCV 102.0 H (80.0-100.0) fL MCHC 30.2 L (31.0-37.0) g/dL RDW 17.1 H (11.5-15.5) % Lymphocytes # 0.8 L (1.0-4.8) k/uL Carbon Dioxide 39 H (22-30) mmol/L BUN 49 H (9-20) mg/dL Creatinine 1.27 H (0.66-1.25) mg/dL Glucose 119 H (74-99) mg/dL POC Glucose (mg/dL) 141 H (75-99) mg/dL 01/18/19 01/18/19 01/18/19 Range/Units 12:06 17:02 20:46 RBC (4.30-5.90) m/uL Hgb (13.0-17.5) gm/dL Hct (39.0-53.0) % MCV (80.0-100.0) fL MCHC (31.0-37.0) g/dL RDW (11.5-15.5) % Lymphocytes # (1.0-4.8) k/uL Carbon Dioxide (22-30) mmol/L BUN (9-20) mg/dL Creatinine (0.66-1.25) mg/dL Glucose (74-99) mg/dL POC Glucose (mg/dL) 187 H 194 H 231 H (75-99) mg/dL Assessment and Plan Assessment: Generalized weakness, lethargy and altered mental status likely due to metabolic encephalopathy. Improving now Acute on chronic kidney disease stage III. Baseline creatinine around 1.1. Creatinine 2.86 on admission. Improving Acute on chronic CHF with diastolic dysfunction. Currently on oral Lasix. Metabolic alkalosis/contraction alkalosis secondary to diuresis. Started on acetazolamide. Mild hyperkalemia due to acute kidney injury and also potassium supplementation at home Recent history of bilateral lower extremities cellulitis Status post antibiotic course at rehab Chronic Anemia/anemia of chronic disease Possible right lower lobe pneumonia. Low suspicion. Patient does have T-max 100.9 and no leukocytosis. Currently patient is afebrile. Severe mitral regurgitation with severely calcified mitral annulus. 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 Repeat CBC and BMP was ordered. Continue the home medications and avoid hypotension. Avoid nephrotoxic medications. Nephrology and pulmonary is following. Follow-up renal function PTOT will be consulted. Prognosis is guarded with multiple medical problems and comorbid conditions. Time with Patient: Greater than 30
--- NOTE | 2019-01-19 23:53 | P.PN ---
Subjective Progress Note Date: 01/19/19 Principal diagnosis: Acute exacerbation systolic CHF Acute renal injury possibly cardiorenal Bilateral lower extremity cellulitis Encephalopathy 73-year-old white male patient of Dr. Patel, with recent history of mitral valve repair for history of severe mitral valve regurgitation with severely calcified mitral valve annulus, status post complex mitral valve repair on 10/31/2018. Other medical history includes coronary artery disease with recent drug-eluting stent placement in the LAD in September 2018, chronic diastolic heart failure, hypertension, hyperlipidemia, type 2 diabetes mellitus with peripheral neuropathy, chronic kidney disease, moderately severe COPD, obstructive sleep apnea without home CPAP use, hypertension, obesity, previous tobacco dependence and paroxysmal atrial fibrillation. Following his surgery patient went to subacute rehab at [facility] for further rehabilitation related to significant weakness, and prolonged recovery postoperative mitral valve repair. Patient also had recent hospitalization in November for bilateral lower extremity cellulitis. Patient was treated with Zosyn and vancomycin, the swelling and the blistering have improved. 01/11/2019 Patient is seen and evaluated in room at bedside; patient complaints of difficulty sleeping; no other complaints; per nursing staff patient has been complaining of hallucinating during the night; no such complaints anymore Vital signs are reviewed and remained stable with a temperature of 97.5, pulse 62, respiration 18 and blood pressure 120/61 and SpO2 of 97% on 2 L Laboratory review shows a white blood count of 7.4, hemoglobin 7 and platelet count of 04[birth year]14/1989; sodium 139 and potassium of 4.6; BUN/creatinine has been slowly trending down from 2.7 yesterday down to 2.4; magnesium of 1.4; patient is started on electrolyte protocol; patient remains on IV diuretics per cardiology for acute exacerbation CHF and hydralazine is admitted; pulmonary service recommending to stop antibiotics for pneumonia; ID to see patient for trace of antibiotics for cellulitis 01/12/2019 Patient transferred to ICU yesterday- found to be lethargic and somewhat confused; patient's is awake alert and oriented this morning. Patient remains on IV Lasix 40 mg every 8 hours. He made excellent urine output and his net fluid balance is been negative more than 2.5 L over the past 24 hours. Chest x-ray shows improvement in the aeration. There is underlying cardiomegaly. Echocardiogram was repeated and it showed evidence of severe pulmonary hypertension. PA pressures were as high as 69. LV function showed an ejection fraction of 50-55%. RV was severely dilated. RA was mild a dilated. There was mild aortic regurgitation. Mild to moderate mitral regurgitation. Moderate mitral stenosis. Evidence of mitral valve repair. Peak and mean mitral valve gradients were 17 and 6 mmHg by Doppler. Severe pulmonary hypertension was noted. Inferior vena cava was mildly dilated. His proBNP was significantly elevated and he responded to diuretics. He was probably cardiorenal syndrome and his kidney function is also improving and the creatinine is down to 2.1. 01/13/2019 Patient is seen and evaluated in ICU this follow-up sitting up in bedside chair Patient remains on Lasix 40 mg IV every 8 hours with fair urine output and a negative fluid balance over past 24 hours Labs show improvement in creatinine; hemoglobin remained stable at 7.1; no signs of overt bleeding; repeat chest x-ray shows CHF and cardiomegaly; repeat echocardiogram shows an ejection fraction of 50-55% with severe pulmonary hypertension 01/14/2019 Patient is currently lying in the bed comfortably. No complaints of chest pain. Patient still having shortness of breath. Currently saturating well on 2 L nausea cannula oxygen. No complaints of chest pain. Leg swelling is improving. Currently on oral Lasix for 80 mg twice daily. Otherwise patient's hemoglobin came down to 6.8 today. Patient was given 1 unit PRBC and hematology was consulted due to chronic anemia Renal function is improving. Otherwise patient does have generalized weakness and PTOT was consulted. Patient will need rehab transfer 01/15/2019 Patient says that his breathing is better. Still having significant leg swelling. Currently being continued on Lasix 80 mg twice daily. Renal function improving with creatinine level I.39 today. Hemoglobin level improved after blood transfusion. Hemoglobin is 8.1 today. No complaints of nausea vomiting or abdominal pain. Patient is able to sit in the chair comfortably. Still have very minimal activity. 01/16/2019 Patient seems to be more lethargic today. Currently being continued on oral Lasix 80 mg twice daily and Diamox was added. Blood pressure is stable. Patie nt does have good urine output. Creatinine level improved to 1.2. BUN 63 and magnesium level is 1.6. Patient is on magnesium replacement protocol. Currently saturating well on oxygen with another cannula at 2 L. 01/17/2019 Patient is more awake and alert and oriented. Able to communicate approp riately. Breathing status is much improved. Leg swelling is improving as well. Creatinine level is 1.33 today. No complaints of nausea vomiting or abdominal pain. Tolerating oral diet. Urine noted has been good. Hemoglobin level again dropped down to 7.4 today. Denied any hematemesis or melena. Continued on diuresis with Lasix and Diamox. Cardiology and nephrology is on board. Possible transfer to rehab once the bed is available. 01/18/2019 Patient is currently awake alert and oriented. Still having generalized weakness. Bilateral leg swelling probably minimal. Creatinine level is 1.27 today. Hemoglobin dropped to 7.2. Patient is currently being continued on Lasix 80 mg twice a day. Cardiology and nephrology is following. Patient's family is considering transfer to [facility] with palliative care. Denied any chest pain or short of breath. No fever no chills. No other acute overnight issues. 01/19/2019 Patient is awake alert and oriented. Breathing is slightly improved. Otherwise hemoglobin dropped to 7.0 and creatinine 1.35. Patient is currently being continued on Lasix 80 mg twice daily. Cardiology and nephrology is following. Patient be given 1 unit of PRBC due to low hemoglobin. Patient is also getting IV iron and Neupogen subcu. Leg swelling is about the same. Patient does have generalized weakness. No fever no chills. No headache or dizziness or lightheadedness. No palpitations. Current medications reviewed. Active Medications Acetaminophen (Tylenol Tab) 650 mg PO Q6H PRN PRN Reason: Mild Pain Last Admin: 01/17/19 20:33 Dose: 650 mg Documented by: Acetazolamide (Diamox) 250 mg PO BID [facility] Last Admin: 01/17/19 20:33 Dose: 250 mg Documented by: Albuterol/Ipratropium (Duoneb 0.5 Mg-3 Mg/3 Ml Soln) 3 ml INHALATION RT-Q4H PRN PRN Reason: shortness of breath Last Admin: 01/15/19 12:26 Dose: 3 ml Documented by: Amiodarone HCl (Cordarone) 100 mg PO DAILY [facility] Last Admin: 01/17/19 09:39 Dose: 100 mg Documented by: Aspirin (Aspirin) 81 mg PO DAILY@1700 [facility] Last Admin: 01/17/19 16:52 Dose: 81 mg Documented by: Atorvastatin Calcium (Lipitor) 40 mg PO HS [facility] Last Admin: 01/17/19 20:33 Dose: 40 mg Documented by: Cholecalciferol (Vitamin D3 (25 Mcg = 1000 Iu)) 2,000 unit PO DAILY@1700 [facility] Last Admin: 01/17/19 16:52 Dose: 2,000 unit Documented by: Clopidogrel Bisulfate (Plavix) 75 mg PO DAILY@0900 [facility] Last Admin: 01/17/19 09:38 Dose: 75 mg Documented by: Darbepoetin Ruddy (Aranesp) 40 mcg SQ TU [facility] Last Admin: 01/15/19 11:19 Dose: 40 mcg Documented by: Escitalopram Oxalate (Lexapro) 10 mg PO [facility] Last Admin: 01/17/19 20:33 Dose: 10 mg Documented by: Furosemide (Lasix) 80 mg PO BID@0900,1600 [facility] Last Admin: 01/17/19 16:52 Dose: 80 mg Documented by: Gabapentin (Neurontin) 100 mg PO BID@0900,2100 [facility] Last Admin: 01/17/19 20:32 Dose: 100 mg Documented by: Heparin Sodium (Porcine) (Heparin) 5,000 unit SQ Q8HR [facility] Last Admin: 01/17/19 16:52 Dose: Not Given Documented by: Hydralazine HCl (Apresoline) 25 mg PO BID [facility] Last Admin: 01/17/19 20:32 Dose: 25 mg Documented by: Ferric Sodium Gluconate 125 mg (/ Sodium Chloride) 110 mls @ 100 mls/hr IVPB DAILY [facility] Stop: 01/18/19 12:31 Last Admin: 01/17/19 09:43 Dose: 100 mls/hr Documented by: Insulin Aspart (Novolog) 0 unit SQ ACHS [facility]; Protocol Last Admin: 01/17/19 20:34 Dose: 2 unit Documented by: Insulin Detemir (Levemir) 12 unit SQ HS [facility] Last Admin: 01/17/19 20:34 Dose: 12 unit Documented by: Lactobacillus Acidoph/Bulgaricus (Lactinex) 1 each PO DAILY@1700 [facility] Last Admin: 01/17/19 16:52 Dose: 1 each Documented by: Magnesium Hydroxide (Milk Of Magnesia) 2,400 mg PO DAILY PRN PRN Reason: Constipation Magnesium Oxide (Mag-Ox) 400 mg PO DAILY [facility] Last Admin: 01/17/19 09:39 Dose: 400 mg Documented by: Metoprolol Tartrate (Lopressor) 50 mg PO BID@0900,2100 [facility] Last Admin: 01/17/19 20:33 Dose: 50 mg Documented by: Miscellaneous Information (Pneumonia Protocol Utilized) 1 each PO ONCE PRN PRN Reason: Per Protocol Miscellaneous Information (Magnesium Per Protocol) 1 each MISCELLANE DAILY PRN; Protocol PRN Reason: Per Protocol Multivitamins (Theragran) 1 each PO DAILY@1700 [facility] Last Admin: 01/17/19 16:52 Dose: 1 each Documented by: Naloxone HCl (Narcan) 0.2 mg IV Q2M PRN PRN Reason: Opioid Reversal Pantoprazole Sodium (Protonix) 40 mg PO AC-BRKFST [facility] Last Admin: 01/17/19 06:27 Dose: 40 mg Documented by: Senna/Docusate Sodium (Senokot-S) 2 each PO BID [facility] Last Admin: 01/17/19 20:32 Dose: 2 each Documented by: Silver Sulfadiazine (Silvadene Cream) 1 applic [facility] Last Admin: 01/17/19 20:35 Dose: 1 applic Documented by: Spironolactone (Aldactone) 25 mg PO DAILY [facility] Last Admin: 01/17/19 09:39 Dose: 25 mg Documented by: Tamsulosin HCl (Flomax) 0.4 mg PO [facility] Last Admin: 01/17/19 20:32 Dose: 0.4 mg Documented by: Zinc Sulfate (Orazinc) 220 mg PO DAILY@1700 [facility] Last Admin: 01/17/19 16:52 Dose: 220 mg Documented by: Objective - Vital Signs Vital signs: Vital Signs Temp 98.3 F 01/19/19 15:18 Pulse 62 01/19/19 15:18 Resp 16 01/19/19 15:18 BP 165/62 01/19/19 15:18 Pulse Ox 98 01/19/19 15:18 Intake & Output 01/18/19 01/19/19 01/19/19 18:59 06:59 18:59 Intake Total 820 360 500 Output Total 1275 500 Balance 820 -915 0 Weight 96 kg 95.6 kg Intake: IV 20 Invasive Line 3 20 Intake, IV Titration 100 Amount Sodium Ferric Gluconat- 100 Sucrose 125 mg In Sodium Chloride 0.9% 100 ml @ 100 mls/hr IVPB DAILY [facility] Rx#:[id number] Oral 720 360 480 Blood Product 0 Rc As-1 Unit 0 [id number] Output: Urine 1275 500 Other: Voiding Method Indwelling Catheter Indwelling Catheter # Voids 2 - Exam HEAD: Normocephalic/atraumatic. EYES: Normal reaction of pupils, equal size. Conjunctiva pink, sclera white. NOSE: Clear with pink turbinates. THROAT: No erythema or exudates. NECK: No masses, no JVD, no thyroid enlargement, no adenopathy. CHEST: No chest wall deformity. Symmetrical expansion. LUNGS: Equal air entry with diffuse crackles, but no wheeze, rhonchi or dullness. CVS: Regular rate and rhythm, normal S1 and S2, no gallops, no murmurs, no rubs ABDOMEN: Soft, nontender. No hepatosplenomegaly, normal bowel sounds, no guarding or rigidity. EXTREMITIES: No clubbing, bilateral lower extremity edema, and small healing blisters on his anterior shins, and his bilateral feet with no significant surrounding erythema or warmth, no cyanosis, 2+ pulses and upper and lower extremities. Both lower extremities are Zi wrapped - Labs CBC & Chem 7: 01/19/19 05:59 01/19/19 05:59 Labs: Abnormal Lab Results - Last 24 Hours (Table) 01/18/19 01/18/19 01/19/19 Range/Units 17:02 20:46 05:59 RBC (4.30-5.90) m/uL Hgb (13.0-17.5) gm/dL Hct (39.0-53.0) % MCV (80.0-100.0) fL MCHC (31.0-37.0) g/dL RDW (11.5-15.5) % Lymphocytes # (1.0-4.8) k/uL Carbon Dioxide 35 H (22-30) mmol/L BUN 49 H (9-20) mg/dL Creatinine 1.35 H (0.66-1.25) mg/dL Glucose 115 H (74-99) mg/dL POC Glucose (mg/dL) 194 H 231 H (75-99) mg/dL Crossmatch 01/19/19 01/19/19 01/19/19 Range/Units 05:59 06:12 11:45 RBC 2.28 L (4.30-5.90) m/uL Hgb 7.0 L (13.0-17.5) gm/dL Hct 23.7 L (39.0-53.0) % MCV 103.8 H (80.0-100.0) fL MCHC 29.3 L (31.0-37.0) g/dL RDW 17.1 H (11.5-15.5) % Lymphocytes # 0.7 L (1.0-4.8) k/uL Carbon Dioxide (22-30) mmol/L BUN (9-20) mg/dL Creatinine (0.66-1.25) mg/dL Glucose (74-99) mg/dL POC Glucose (mg/dL) 116 H 214 H (75-99) mg/dL Crossmatch 01/19/19 Range/Units 12:18 RBC (4.30-5.90) m/uL Hgb (13.0-17.5) gm/dL Hct (39.0-53.0) % MCV (80.0-100.0) fL MCHC (31.0-37.0) g/dL RDW (11.5-15.5) % Lymphocytes # (1.0-4.8) k/uL Carbon Dioxide (22-30) mmol/L BUN (9-20) mg/dL Creatinine (0.66-1.25) mg/dL Glucose (74-99) mg/dL POC Glucose (mg/dL) (75-99) mg/dL Crossmatch See Detail Assessment and Plan Assessment: Generalized weakness, lethargy and altered mental status likely due to metabolic encephalopathy. Improving now Acute on chronic kidney disease stage III. Baseline creatinine around 1.1. Creatinine 2.86 on admission. Improving Acute on chronic CHF with diastolic dysfunction. Currently on oral Lasix. Metabolic alkalosis/contraction alkalosis secondary to diuresis. Started on acetazolamide. Mild hyperkalemia due to acute kidney injury and also potassium supplementation at home Recent history of bilateral lower extremities cellulitis Status post antibiotic course at rehab Chronic Anemia/anemia of chronic disease Possible right lower lobe pneumonia. Low suspicion. Patient does have T-max 100.9 and no leukocytosis. Currently patient is afebrile. Severe mitral regurgitation with severely calcified mitral annulus. 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 Repeat CBC and BMP was ordered. Continue the home medications and avoid hypotension. Avoid nephrotoxic medications. Nephrology, cardiology and pulmonary is following. Follow-up renal function PTOT is following. Possible transfer to rehab on Monday. Prognosis is guarded with multiple medical problems and comorbid conditions. Time with Patient: Greater than 30
[2019-01-20] MEDS: HEPARIN SODIUM,PORCINE 5,000 UNIT/ML 1 ML VIAL SQ SCH ×4 (00:01→23:12)
[2019-01-20 06:59] LABS: Glucose,Whole Blood 121 mg/dL (75-99)
[2019-01-20 07:02] LABS: Anisocytosis Slight; Basophils # (A) 0.1 k/uL (0-0.2); Basophils % (A) 1 %; Eosinophils # (A) 0.6 k/uL (0-0.7); Eosinophils % (A) 8 %; HCT 24.9 % (39.0-53.0); HGB 7.7 gm/dL (13.0-17.5); Hypochromasia Marked; Lymphocytes # (A) 0.8 k/uL (1.0-4.8); Lymphocytes % (A) 12 %; MCH 30.7 pg (25.0-35.0); MCHC 31.1 g/dL (31.0-37.0); Macrocytosis Slight; Mean Platelet Volume 6.4; Monocytes # (A) 0.4 k/uL (0-1.0); Monocytes % (A) 6 %; Neutrophils # (A) 4.9 k/uL (1.3-7.7); Neutrophils % (A) 72 %; Platelet Count 235 k/uL (150-450); Poikilocytosis Slight; RBC 2.52 m/uL (4.30-5.90); WBC 6.7 k/uL (3.8-10.6)
[2019-01-20 07:07] LABS: INR 1.1 (<1.2); Partial Thromboplastin Time 29.4 sec (22.0-30.0); Prothrombin Time 11.4 sec (9.0-12.0)
[2019-01-20 07:13] LABS: MCV 98.6 fL (80.0-100.0)
[2019-01-20] MEDS: INSULIN ASPART (NovoLOG) 100 UNIT/ML VIAL SQ SCH ×4 (07:13→21:06)
[2019-01-20 07:15] LABS: Calcium 8.5 mg/dL (8.4-10.2); Potassium 4.1 mmol/L (3.5-5.1)
--- NOTE | 2019-01-20 07:19 | XR ---
EXAMINATION TYPE: XR chest 2V DATE OF EXAM: 01/20/2019 HISTORY: chf followup. REFERENCE: Previous study dated 01/15/2019. FINDINGS: There has been a midline sternotomy and aortic valve repair. The heart is enlarged. There is vascular congestion. There are small effusions. There is bibasilar ai rspace disease. IMPRESSION: 1. CONTINUING CHANGES OF HEART FAILURE. 2. SMALL LEFT EFFUSION
[2019-01-20] MEDS: PANTOPRAZOLE 40 MG TABLET PO SCH (07:34)
[2019-01-20] MEDS: acetaZOLAMIDE 250 MG TAB PO SCH ×2 (09:03→21:04)
[2019-01-20] MEDS: CLOPIDOGREL 75 MG TAB PO SCH (09:03)
[2019-01-20] MEDS: FUROSEMIDE 80 MG TAB PO SCH ×2 (09:03→16:43)
[2019-01-20] MEDS: AMIODARONE 100 MG TAB PO SCH (09:03)
[2019-01-20] MEDS: GABAPENTIN 100 MG CAP PO SCH ×2 (09:03→21:04)
[2019-01-20] MEDS: ZINC SULFATE 220 MG CAP PO SCH (09:03)
[2019-01-20] MEDS: SPIRONOLACTONE 25 MG TAB PO SCH (09:03)
[2019-01-20] MEDS: hydrALAZINE HCL 25 MG TAB PO SCH ×2 (09:03→21:04)
[2019-01-20] MEDS: MAGNESIUM OXIDE 400 MG TAB PO SCH (09:03)
[2019-01-20] MEDS: METOPROLOL TARTRATE 50 MG TAB PO SCH ×2 (09:03→21:04)
[2019-01-20] MEDS: SENNOSIDES-DOCUSATE SODIUM 1 EACH TAB PO SCH ×2 (09:04→21:04)
--- NOTE | 2019-01-20 11:53 | PN ---
PROGRESS NOTE The patient is seen for followup for acute kidney injury and chronic kidney disease. The patient is maintained on oral diuretics. Renal function is fairly stable, creatinine staying at 1.2-1.3 mg/dL. EXAMINATION: Patient is comfortable. Blood pressure was 125/60, heart rate 58 per minute. He is afebrile. Examination of the heart S1, S2. Examination of the lungs, decreased breath sounds at the bases. Abdomen is soft, nontender. Examination of lower extremities shows lower extremities are wrapped. [employer] exam is grossly intact. LABS: Sodium of 142, potassium 4.1, CO2 35, BUN 48, creatinine 1.28, hemoglobin 7.7 g/dL. ASSESSMENT: 1. Chronic kidney disease secondary to nephrosclerosis. Serum creatinine staying 1.2- 1.3 mg/dL. 2. Acute kidney injury, prerenal from cardiorenal syndrome, now improved. 3. Status post mitral valve repair. 4. Volume overload improved with diuresis. 5. Anemia with iron deficiency status post IV iron and packed RBCs transfusion. 6. Metabolic alkalosis secondary to diuresis, now improved. PLAN: Continue with current dose of diuretics. Repeat labs in a.m. MMODL / IJN: [id number] /
[2019-01-20 12:18] LABS: Glucose,Whole Blood 187 mg/dL (75-99)
[2019-01-20] MEDS: ASPIRIN 81 MG PO SCH (16:42)
[2019-01-20] MEDS: MULTIVITAMINS, THERA 1 EACH TAB PO SCH (16:42)
[2019-01-20] MEDS: LACTOBACILLUS ACIDOPH & BULGAR 1 EACH PACKET PO SCH (16:43)
[2019-01-20] MEDS: CHOLECALCIFEROL 1,000 UNIT TAB PO SCH (16:43)
[2019-01-20 16:47] LABS: Glucose,Whole Blood 179 mg/dL (75-99)
[2019-01-20 20:54] LABS: Glucose,Whole Blood 218 mg/dL (75-99)
[2019-01-20] MEDS: ATORVASTATIN 40 MG TAB PO SCH (21:04)
[2019-01-20] MEDS: TAMSULOSIN 0.4 MG CAP.ER.24H PO SCH (21:04)
[2019-01-20] MEDS: ESCITALOPRAM 10 MG TAB PO SCH (21:04)
[2019-01-20] MEDS: INSULIN DETEMIR (LEVEMIR) 100 UNIT/ML SYR SQ SCH (21:06)
[2019-01-20] MEDS: ACETAMINOPHEN TAB 325 MG TAB PO PRN (21:11)
--- NOTE | 2019-01-20 23:40 | P.PN ---
Subjective Progress Note Date: 01/20/19 Principal diagnosis: Acute exacerbation systolic CHF Acute renal injury possibly cardiorenal Bilateral lower extremity cellulitis Encephalopathy 73-year-old white male patient of Dr. Patel, with recent history of mitral valve repair for history of severe mitral valve regurgitation with severely calcified mitral valve annulus, status post complex mitral valve repair on 10/31/2018. Other medical history includes coronary artery disease with recent drug-eluting stent placement in the LAD in September 2018, chronic diastolic heart failure, hypertension, hyperlipidemia, type 2 diabetes mellitus with peripheral neuropathy, chronic kidney disease, moderately severe COPD, obstructive sleep apnea without home CPAP use, hypertension, obesity, previous tobacco dependence and paroxysmal atrial fibrillation. Following his surgery patient went to subacute rehab at [facility] for further rehabilitation related to significant weakness, and prolonged recovery postoperative mitral valve repair. Patient also had recent hospitalization in November for bilateral lower extremity cellulitis. Patient was treated with Zosyn and vancomycin, the swelling and the blistering have improved. 01/11/2019 Patient is seen and evaluated in room at bedside; patient complaints of difficulty sleeping; no other complaints; per nursing staff patient has been complaining of hallucinating during the night; no such complaints anymore Vital signs are reviewed and remained stable with a temperature of 97.5, pulse 62, respiration 18 and blood pressure 120/61 and SpO2 of 97% on 2 L Laboratory review shows a white blood count of 7.4, hemoglobin 7 and platelet count of [birth year]14/1989; sodium 139 and potassium of 4.6; BUN/creatinine has been slowly trending down from 2.7 yesterday down to 2.4; magnesium of 1.4; patient is started on electrolyte protocol; patient remains on IV diuretics per cardiology for acute exacerbation CHF and hydralazine is admitted; pulmonary service recommending to stop antibiotics for pneumonia; ID to see patient for trace of antibiotics for cellulitis 01/12/2019 Patient transferred to ICU yesterday- found to be lethargic and somewhat confused; patient's is awake alert and oriented this morning. Patient remains on IV Lasix 40 mg every 8 hours. He made excellent urine output and his net fluid balance is been negative more than 2.5 L over the past 24 hours. Chest x-ray shows improvement in the aeration. There is underlying cardiomegaly. Echocardiogram was repeated and it showed evidence of severe pulmonary hypertension. PA pressures were as high as 69. LV function showed an ejection fraction of 50-55%. RV was severely dilated. RA was mild a dilated. There was mild aortic regurgitation. Mild to moderate mitral regurgitation. Moderate mitral stenosis. Evidence of mitral valve repair. Peak and mean mitral valve gradients were 17 and 6 mmHg by Doppler. Severe pulmonary hypertension was noted. Inferior vena cava was mildly dilated. His proBNP was significantly elevated and he responded to diuretics. He was probably cardiorenal syndrome and his kidney function is also improving and the creatinine is down to 2.1. 01/13/2019 Patient is seen and evaluated in ICU this follow-up sitting up in bedside chair Patient remains on Lasix 40 mg IV every 8 hours with fair urine output and a negative fluid balance over past 24 hours Labs show improvement in creatinine; hemoglobin remained stable at 7.1; no signs of overt bleeding; repeat chest x-ray shows CHF and cardiomegaly; repeat echocardiogram shows an ejection fraction of 50-55% with severe pulmonary hypertension 01/14/2019 Patient is currently lying in the bed comfortably. No complaints of chest pain. Patient still having shortness of breath. Currently saturating well on 2 L nausea cannula oxygen. No complaints of chest pain. Leg swelling is improving. Currently on oral Lasix for 80 mg twice daily. Otherwise patient's hemoglobin came down to 6.8 today. Patient was given 1 unit PRBC and hematology was consulted due to chronic anemia Renal function is improving. Otherwise patient does have generalized weakness and PTOT was consulted. Patient will need rehab transfer 01/15/2019 Patient says that his breathing is better. Still having significant leg swelling. Currently being continued on Lasix 80 mg twice daily. Renal function improving with creatinine level I.39 today. Hemoglobin level improved after blood transfusion. Hemoglobin is 8.1 today. No complaints of nausea vomiting or abdominal pain. Patient is able to sit in the chair comfortably. Still have very minimal activity. 01/16/2019 Patient seems to be more lethargic today. Currently being continued on oral Lasix 80 mg twice daily and Diamox was added. Blood pressure is stable. Patie nt does have good urine output. Creatinine level improved to 1.2. BUN 63 and magnesium level is 1.6. Patient is on magnesium replacement protocol. Currently saturating well on oxygen with another cannula at 2 L. 01/17/2019 Patient is more awake and alert and oriented. Able to communicate approp riately. Breathing status is much improved. Leg swelling is improving as well. Creatinine level is 1.33 today. No complaints of nausea vomiting or abdominal pain. Tolerating oral diet. Urine noted has been good. Hemoglobin level again dropped down to 7.4 today. Denied any hematemesis or melena. Continued on diuresis with Lasix and Diamox. Cardiology and nephrology is on board. Possible transfer to rehab once the bed is available. 01/18/2019 Patient is currently awake alert and oriented. Still having generalized weakness. Bilateral leg swelling probably minimal. Creatinine level is 1.27 today. Hemoglobin dropped to 7.2. Patient is currently being continued on Lasix 80 mg twice a day. Cardiology and nephrology is following. Patient's family is considering transfer to [facility] with palliative care. Denied any chest pain or short of breath. No fever no chills. No other acute overnight issues. 01/19/2019 Patient is awake alert and oriented. Breathing is slightly improved. Otherwise hemoglobin dropped to 7.0 and creatinine 1.35. Patient is currently being continued on Lasix 80 mg twice daily. Cardiology and nephrology is following. Patient be given 1 unit of PRBC due to low hemoglobin. Patient is also getting IV iron and Neupogen subcu. Leg swelling is about the same. Patient does have generalized weakness. No fever no chills. No headache or dizziness or lightheadedness. No palpitations. 01/20/2019 Patient is able to sit in the chair today. Hemoglobin went up to 7.7 after 1 unit of PRBC transfusion. Creatinine 1.28. Improving. History having significant leg swelling. Patient was encouraged with PTOT and increasing ambulation. Patient is being continued on Lasix 80 mg twice daily. Possible discharge to rehab in next 24 hours. medications reviewed. Active Medications Acetaminophen (Tylenol Tab) 650 mg PO Q6H PRN PRN Reason: Mild Pain Last Admin: 01/17/19 20:33 Dose: 650 mg Documented by: Acetazolamide (Diamox) 250 mg PO BID JAIME Last Admin: 01/17/19 20:33 Dose: 250 mg Documented by: Albuterol/Ipratropium (Duoneb 0.5 Mg-3 Mg/3 Ml Soln) 3 ml INHALATION RT-Q4H PRN PRN Reason: shortness of breath Last Admin: 01/15/19 12:26 Dose: 3 ml Documented by: Amiodarone HCl (Cordarone) 100 mg PO DAILY [facility] Last Admin: 01/17/19 09:39 Dose: 100 mg Documented by: Aspirin (Aspirin) 81 mg PO DAILY@1700 [facility] Last Admin: 01/17/19 16:52 Dose: 81 mg Documented by: Atorvastatin Calcium (Lipitor) 40 mg PO [facility] Last Admin: 01/17/19 20:33 Dose: 40 mg Documented by: Cholecalciferol (Vitamin D3 (25 Mcg = 1000 Iu)) 2,000 unit PO DAILY@1700 [facility] Last Admin: 01/17/19 16:52 Dose: 2,000 unit Documented by: Clopidogrel Bisulfate (Plavix) 75 mg PO DAILY@0900 [facility] Last Admin: 01/17/19 09:38 Dose: 75 mg Documented by: Darbepoetin Ruddy (Aranesp) 40 mcg SQ TU [facility] Last Admin: 01/15/19 11:19 Dose: 40 mcg Documented by: Escitalopram Oxalate (Lexapro) 10 mg PO [facility] Last Admin: 01/17/19 20:33 Dose: 10 mg Documented by: Furosemide (Lasix) 80 mg PO BID@0900,1600 [facility] Last Admin: 01/17/19 16:52 Dose: 80 mg Documented by: Gabapentin (Neurontin) 100 mg PO BID@0900,2100 [facility] Last Admin: 01/17/19 20:32 Dose: 100 mg Documented by: Heparin Sodium (Porcine) (Heparin) 5,000 unit SQ Q8HR [facility] Last Admin: 01/17/19 16:52 Dose: Not Given Documented by: Hydralazine HCl (Apresoline) 25 mg PO BID [facility] Last Admin: 01/17/19 20:32 Dose: 25 mg Documented by: Ferric Sodium Gluconate 125 mg (/ Sodium Chloride) 110 mls @ 100 mls/hr IVPB DAILY [facility] Stop: 01/18/19 12:31 Last Admin: 01/17/19 09:43 Dose: 100 mls/hr Documented by: Insulin Aspart (Novolog) 0 unit SQ [facility]; Protocol Last Admin: 01/17/19 20:34 Dose: 2 unit Documented by: Insulin Detemir (Levemir) 12 unit SQ [facility] Last Admin: 01/17/19 20:34 Dose: 12 unit Documented by: Lactobacillus Acidoph/Bulgaricus (Lactinex) 1 each PO DAILY@1700 [facility] Last Admin: 01/17/19 16:52 Dose: 1 each Documented by: Magnesium Hydroxide (Milk Of Magnesia) 2,400 mg PO DAILY PRN PRN Reason: Constipation Magnesium Oxide (Mag-Ox) 400 mg PO DAILY [facility] Last Admin: 01/17/19 09:39 Dose: 400 mg Documented by: Metoprolol Tartrate (Lopressor) 50 mg PO BID@0900,2100 [facility] Last Admin: 01/17/19 20:33 Dose: 50 mg Documented by: Miscellaneous Information (Pneumonia Protocol Utilized) 1 each PO ONCE PRN PRN Reason: Per Protocol Miscellaneous Information (Magnesium Per Protocol) 1 each MISCELLANE DAILY PRN; Protocol PRN Reason: Per Protocol Multivitamins (Theragran) 1 each PO DAILY@1700 [facility] Last Admin: 01/17/19 16:52 Dose: 1 each Documented by: Naloxone HCl (Narcan) 0.2 mg IV Q2M PRN PRN Reason: Opioid Reversal Pantoprazole Sodium (Protonix) 40 mg PO AC-BRKFST [facility] Last Admin: 01/17/19 06:27 Dose: 40 mg Documented by: Senna/Docusate Sodium (Senokot-S) 2 each PO BID [facility] Last Admin: 01/17/19 20:32 Dose: 2 each Documented by: Silver Sulfadiazine (Silvadene Cream) 1 applic TOPICAL [facility] Last Admin: 01/17/19 20:35 Dose: 1 applic Documented by: Spironolactone (Aldactone) 25 mg PO DAILY [facility] Last Admin: 01/17/19 09:39 Dose: 25 mg Documented by: Tamsulosin HCl (Flomax) 0.4 mg PO [facility] Last Admin: 01/17/19 20:32 Dose: 0.4 mg Documented by: Zinc Sulfate (Orazinc) 220 mg PO DAILY@1700 [facility] Last Admin: 01/17/19 16:52 Dose: 220 mg Documented by: Objective - Vital Signs Vital signs: Vital Signs Temp 98.4 F 01/20/19 16:00 Pulse 62 01/20/19 16:00 Resp 16 01/20/19 16:00 BP 125/60 01/20/19 16:00 Pulse Ox 98 01/20/19 16:00 Intake & Output 10/01/20/19 01/20/19 18:59 06:59 18:59 Intake Total 2380 929 5692 Output Total 3000 350 5650 Balance -8468 -326 -0246 Weight 95.2 kg Intake: IV 60 40 30 0.9 kvo 10 Invasive Line 3 60 30 30 Oral 573 097 2338 Blood Product 310 Rc As-1 Unit 310 [id number] Output: Urine 3000 350 5650 Uretheral (Burrell) 2500 Other: Voiding Method Indwelling Catheter Indwelling Catheter Indwelling Catheter - Exam HEAD: Normocephalic/atraumatic. EYES: Normal reaction of pupils, equal size. Conjunctiva pink, sclera white. NOSE: Clear with pink turbinates. THROAT: No erythema or exudates. NECK: No masses, no JVD, no thyroid enlargement, no adenopathy. CHEST: No chest wall deformity. Symmetrical expansion. LUNGS: Equal air entry with diffuse crackles, but no wheeze, rhonchi or dullness. CVS: Regular rate and rhythm, normal S1 and S2, no gallops, no murmurs, no rubs ABDOMEN: Soft, nontender. No hepatosplenomegaly, normal bowel sounds, no guarding or rigidity. EXTREMITIES: No clubbing, bilateral lower extremity edema, and small healing blisters on his anterior shins, and his bilateral feet with no significant surrounding erythema or warmth, no cyanosis, 2+ pulses and upper and lower extremities. Both lower extremities are Zi wrapped - Labs CBC & Chem 7: 01/20/19 06:21 01/20/19 06:21 Labs: Abnormal Lab Results - Last 24 Hours (Table) 01/19/19 01/19/19 01/20/19 Range/Units 12:18 21:27 06:21 RBC 2.52 L (4.30-5.90) m/uL Hgb 7.7 L (13.0-17.5) gm/dL Hct 24.9 L (39.0-53.0) % RDW 18.0 H (11.5-15.5) % Lymphocytes # 0.8 L (1.0-4.8) k/uL Fibrinogen (200-500) mg/dL Carbon Dioxide (22-30) mmol/L BUN (9-20) mg/dL Creatinine (0.66-1.25) mg/dL Glucose (74-99) mg/dL POC Glucose (mg/dL) 229 H (75-99) mg/dL Crossmatch See Detail 01/20/19 01/20/19 01/20/19 Range/Units 06:21 06:21 06:58 RBC (4.30-5.90) m/uL Hgb (13.0-17.5) gm/dL Hct (39.0-53.0) % RDW (11.5-15.5) % Lymphocytes # (1.0-4.8) k/uL Fibrinogen 501 H (200-500) mg/dL Carbon Dioxide 35 H (22-30) mmol/L BUN 48 H (9-20) mg/dL Creatinine 1.28 H (0.66-1.25) mg/dL Glucose 122 H (74-99) mg/dL POC Glucose (mg/dL) 121 H (75-99) mg/dL Crossmatch 01/20/19 01/20/19 Range/Units 12:16 16:37 RBC (4.30-5.90) m/uL Hgb (13.0-17.5) gm/dL Hct (39.0-53.0) % RDW (11.5-15.5) % Lymphocytes # (1.0-4.8) k/uL Fibrinogen (200-500) mg/dL Carbon Dioxide (22-30) mmol/L BUN (9-20) mg/dL Creatinine (0.66-1.25) mg/dL Glucose (74-99) mg/dL POC Glucose (mg/dL) 187 H 179 H (75-99) mg/dL Crossmatch Assessment and Plan Assessment: Generalized weakness, lethargy and altered mental status likely due to metabolic encephalopathy. Improving now Acute on chronic kidney disease stage III. Baseline creatinine around 1.1. Creatinine 2.86 on admission. Improving Acute on chronic CHF with diastolic dysfunction. Currently on oral Lasix. Metabolic alkalosis/contraction alkalosis secondary to diuresis. Started on acetazolamide. Mild hyperkalemia due to acute kidney injury and also potassium supplementation at home Recent history of bilateral lower extremities cellulitis Status post antibiotic course at rehab Chronic Anemia/anemia of chronic disease Possible right lower lobe pneumonia. Low suspicion. Patient does have T-max 100.9 and no leukocytosis. Currently patient is afebrile. Severe mitral regurgitation with severely calcified mitral annulus. 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 Repeat CBC and BMP was ordered. Continue the home medications and avoid hypotension. Avoid nephrotoxic medications. Nephrology, cardiology and pulmonary is following. Follow-up renal function PTOT is following. Possible transfer to rehab on Monday. Prognosis is guarded with multiple medical problems and comorbid conditions. Time with Patient: Greater than 30
[2019-01-21 06:16] LABS: Glucose,Whole Blood 101 mg/dL (75-99)
[2019-01-21] MEDS: INSULIN ASPART (NovoLOG) 100 UNIT/ML VIAL SQ SCH ×4 (06:37→21:34)
[2019-01-21] MEDS: PANTOPRAZOLE 40 MG TABLET PO SCH (06:37)
[2019-01-21] MEDS: AMIODARONE 100 MG TAB PO SCH (09:30)
[2019-01-21] MEDS: HEPARIN SODIUM,PORCINE 5,000 UNIT/ML 1 ML VIAL SQ SCH ×2 (09:30→16:33)
[2019-01-21] MEDS: MAGNESIUM OXIDE 400 MG TAB PO SCH (09:30)
[2019-01-21] MEDS: SPIRONOLACTONE 25 MG TAB PO SCH (09:31)
[2019-01-21] MEDS: SENNOSIDES-DOCUSATE SODIUM 1 EACH TAB PO SCH ×2 (09:31→21:31)
[2019-01-21] MEDS: acetaZOLAMIDE 250 MG TAB PO SCH (09:31)
[2019-01-21] MEDS: METOPROLOL TARTRATE 50 MG TAB PO SCH ×2 (09:31→21:32)
[2019-01-21] MEDS: GABAPENTIN 100 MG CAP PO SCH ×2 (09:31→21:32)
[2019-01-21] MEDS: CLOPIDOGREL 75 MG TAB PO SCH (09:31)
[2019-01-21] MEDS: FUROSEMIDE 80 MG TAB PO SCH ×2 (09:31→16:33)
[2019-01-21] MEDS: ACETAMINOPHEN TAB 325 MG TAB PO PRN (09:37)
[2019-01-21] MEDS: hydrALAZINE HCL 25 MG TAB PO SCH ×2 (09:54→21:32)
--- NOTE | 2019-01-21 11:10 | P.PN ---
Subjective Patient is seen in follow-up for acute kidney injury. Renal function is stable. No vomiting or diarrhea. Urine output has been good. Denies active chest pain or shortness of breath. Edema improved. Status post blood transfusion on January 14. Hemoglobin 7.2 today. No active bleeding. Currently maintained on Lasix 80 mg orally twice daily and Diamox 250 mg twice daily. Burrell catheter has been discontinued. Vital signs are stable. General: The patient appeared well nourished and normally developed. HEENT: Head exam is unremarkable. Neck is without jugular venous distension. LUNGS: Breath sounds decreased. HEART: Rate and Rhythm are regular. First and second heart sounds normal. No murmurs, rubs or gallops. ABDOMEN: Abdominal exam reveals normal bowel sounds. Non-tender and non- distended. EXTREMITITES: Trace edema. Objective - Vital Signs Vital signs: Vital Signs Temp 97.9 F 01/21/19 08:00 Pulse 70 01/21/19 09:29 Resp 20 01/21/19 08:00 BP 115/58 01/21/19 09:29 Pulse Ox 97 01/21/19 08:00 Intake & Output 01/20/19 01/21/19 01/21/19 18:59 06:59 18:59 Intake Total 1478 Output Total 5650 800 Balance -4172 -800 Weight 96.4 kg Intake: IV 30 Invasive Line 3 30 Oral 1448 Output: Urine 5650 800 Other: Voiding Method Indwelling Catheter Indwelling Catheter # Voids 1 - Labs CBC & Chem 7: 01/20/19 06:21 01/20/19 06:21 Labs: Abnormal Lab Results - Last 24 Hours (Table) 01/20/19 01/20/19 01/20/19 Range/Units 12:16 16:37 20:52 POC Glucose (mg/dL) 187 H 179 H 218 H (75-99) mg/dL 01/21/19 Range/Units 06:15 POC Glucose (mg/dL) 101 H (75-99) mg/dL Assessment and Plan Plan: Assessment: 1. Acute kidney injury mostly prerenal secondary to cardiorenal syndrome. Renal function improved since admission. Creatinine 1.28 as of yesterday. 2. 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 3. Volume overload. Improved with diuresis. 4. Anemia. Stool for occult blood negative. Iron deficiency noted - status post 3 doses of IV iron. No active bleeding. Also on aranesp. Status post blood transfusion on January 14. 5. Acute on chronic diastolic CHF with mild to moderate mitral regurgitation, moderate tricuspid regurgitation and severe pulmonary hypertension. 6. Hypomagnesemia secondary to diuresis. Better post replacement. 7. Insulin-dependent diabetes mellitus. 8. Metabolic alkalosis secondary to diuresis. Better. Plan: Maintain Lasix 80 mg bid. Discontinue Diamox. Avoid nephrotoxins. Repeat electrolytes in the morning.
[2019-01-21 12:12] LABS: Glucose,Whole Blood 163 mg/dL (75-99)
--- NOTE | 2019-01-21 16:04 | P.PN ---
Subjective Progress Note Date: 01/21/19 Principal diagnosis: Acute exacerbation systolic CHF Acute renal injury possibly cardiorenal Bilateral lower extremity cellulitis Encephalopathy 73-year-old white male patient of Dr. Patel, with recent history of mitral valve repair for history of severe mitral valve regurgitation with severely calcified mitral valve annulus, status post complex mitral valve repair on 10/31/2018. Other medical history includes coronary artery disease with recent drug-eluting stent placement in the LAD in September 2018, chronic diastolic heart failure, hypertension, hyperlipidemia, type 2 diabetes mellitus with peripheral neuropathy, chronic kidney disease, moderately severe COPD, obstructive sleep apnea without home CPAP use, hypertension, obesity, previous tobacco dependence and paroxysmal atrial fibrillation. Following his surgery patient went to subacute rehab at [facility] for further rehabilitation related to significant weakness, and prolonged recovery postoperative mitral valve repair. Patient also had recent hospitalization in November for bilateral lower extremity cellulitis. Patient was treated with Zosyn and vancomycin, the swelling and the blistering have improved. 01/11/2019 Patient is seen and evaluated in room at bedside; patient complaints of difficulty sleeping; no other complaints; per nursing staff patient has been complaining of hallucinating during the night; no such complaints anymore Vital signs are reviewed and remained stable with a temperature of 97.5, pulse 62, respiration 18 and blood pressure 120/61 and SpO2 of 97% on 2 L Laboratory review shows a white blood count of 7.4, hemoglobin 7 and platelet count of 04/14/1989; sodium 139 and potassium of 4.6; BUN/creatinine has been slowly trending down from 2.7 yesterday down to 2.4; magnesium of 1.4; patient is started on electrolyte protocol; patient remains on IV diuretics per cardiology for acute exacerbation CHF and hydralazine is admitted; pulmonary service recommending to stop antibiotics for pneumonia; ID to see patient for trace of antibiotics for cellulitis 01/12/2019 Patient transferred to ICU yesterday- found to be lethargic and somewhat confused; patient's is awake alert and oriented this morning. Patient remains on IV Lasix 40 mg every 8 hours. He made excellent urine output and his net fluid balance is been negative more than 2.5 L over the past 24 hours. Chest x-ray shows improvement in the aeration. There is underlying cardiomegaly. Echocardiogram was repeated and it showed evidence of severe pulmonary hypertension. PA pressures were as high as 69. LV function showed an ejection fraction of 50-55%. RV was severely dilated. RA was mild a dilated. There was mild aortic regurgitation. Mild to moderate mitral regurgitation. Moderate mitral stenosis. Evidence of mitral valve repair. Peak and mean mitral valve gradients were 17 and 6 mmHg by Doppler. Severe pulmonary hypertension was noted. Inferior vena cava was mildly dilated. His proBNP was significantly elevated and he responded to diuretics. He was probably cardiorenal syndrome and his kidney function is also improving and the creatinine is down to 2.1. 01/13/2019 Patient is seen and evaluated in ICU this follow-up sitting up in bedside chair Patient remains on Lasix 40 mg IV every 8 hours with fair urine output and a negative fluid balance over past 24 hours Labs show improvement in creatinine; hemoglobin remained stable at 7.1; no signs of overt bleeding; repeat chest x-ray shows CHF and cardiomegaly; repeat echocardiogram shows an ejection fraction of 50-55% with severe pulmonary hypert ension 01/14/2019 Patient is currently lying in the bed comfortably. No complaints of chest pain. Patient still having shortness of breath. Currently saturating well on 2 L nausea cannula oxygen. No complaints of chest pain. Leg swelling is improving. Currently on oral Lasix for 80 mg twice daily. Otherwise patient's hemoglobin came down to 6.8 today. Patient was given 1 unit PRBC and hematology was consulted due to chronic anemia Renal function is improving. Otherwise patient does have generalized weakness and PTOT was consulted. Patient will need rehab transfer 01/15/2019 Patient says that his breathing is better. Still having significant leg swelling. Currently being continued on Lasix 80 mg twice daily. Renal function improving with creatinine level I.39 today. Hemoglobin level improved after blood transfusion. Hemoglobin is 8.1 today. No complaints of nausea vomiting or abdominal pain. Patient is able to sit in the chair comfortably. Still have very minimal activity. 01/16/2019 Patient seems to be more lethargic today. Currently being continued on oral Lasix 80 mg twice daily and Diamox was added. Blood pressure is stable. Patient does have good urine output. Creatinine level improved to 1.2. BUN 63 and magnesium level is 1.6. Patient is on magnesium replacement protocol. Currently saturating well on oxygen with another cannula at 2 L. 01/17/2019 Patient is more awake and alert and oriented. Able to communicate appropriately. Breathing status is much improved. Leg swelling is improving as well. Creatinine level is 1.33 today. No complaints of nausea vomiting or abdominal pain. Tolerating oral diet. Urine noted has been good. Hemoglobin level again dropped down to 7.4 today. Denied any hematemesis or melena. Continued on diuresis with Lasix and Diamox. Cardiology and nephrology is on board. Possible transfer to rehab once the bed is available. 01/18/2019 Patient is currently awake alert and oriented. Still having generalized weakness. Bilateral leg swelling probably minimal. Creatinine level is 1.27 today. Hemoglobin dropped to 7.2. Patient is currently being continued on Lasix 80 mg twice a day. Cardiology and nephrology is following. Patient's family is considering transfer to [facility] with palliative care. Denied any chest pain or short of breath. No fever no chills. No other acute overnight issues. 01/19/2019 Patient is awake alert and oriented. Breathing is slightly improved. Otherwise hemoglobin dropped to 7.0 and creatinine 1.35. Patient is currently being continued on Lasix 80 mg twice daily. Cardiology and nephrology is following. Patient be given 1 unit of PRBC due to low hemoglobin. Patient is also getting IV iron and Neupogen subcu. Leg swelling is about the same. Patient does have generalized weakness. No fever no chills. No headache or dizziness or lightheadedness. No palpitations. 01/20/2019 Patient is able to sit in the chair today. Hemoglobin went up to 7.7 after 1 unit of PRBC transfusion. Creatinine 1.28. Improving. History having significant leg swelling. Patient was encouraged with PTOT and increasing ambulation. Patient is being continued on Lasix 80 mg twice daily. Possible discharge to rehab in next 24 hours. 01/21/2019 Patient is up sitting in the chair today no acute distress. No acute overnight issues. Family is at the bedside. Currently patient denies any chest pain, shortness of breath, or palpitations at this time. Patient is afebrile. Patient denies any nausea or vomiting and is tolerating diet. Discussed with the patient and family at length about possible discharge plans and the patient would like to return to [facility] for continued PT/OT therapy. Patient was much more awake and alert and having a full conversation today. is concerned about palliative versus hospice and states that her insurance does not cover palliative. Case management and social work are following closely and arranging for a meeting to discuss these options with family tomorrow in the afternoon. Will repeat a.m. labs. Hemoglobin today was 7.7. Will continue to monitor closely. REVIEW OF SYSTEMS: ENT: Reports diminished vision and hearing. CARDIOVASCULAR: No reports of chest pain or palpitations RESPIRATORY: No reports shortness of breath or cough. GI: No nausea, vomiting or diarrhea. : No dysuria or retention. NERVOUS SYSTEM: Reports generalized weakness. HEMATOLOGY/ONCOLOGY: Reports history of anemia. ENDOCRINE: reports diabetes CONSTITUTIONAL: Denies fever or fatigue DERMATOLOGY: Reports swelling and dryness of bilateral lower extremities PSYCHIATRY: Cooperative, non-suicidal Active Medications Acetaminophen (Tylenol Tab) 650 mg PO Q6H PRN PRN Reason: Mild Pain Last Admin: 01/21/19 09:37 Dose: 650 mg Documented by: Albuterol/Ipratropium (Duoneb 0.5 Mg-3 Mg/3 Ml Soln) 3 ml INHALATION RT-Q4H PRN PRN Reason: shortness of breath Last Admin: 01/15/19 12:26 Dose: 3 ml Documented by: Amiodarone HCl (Cordarone) 100 mg PO DAILY [facility] Last Admin: 01/21/19 09:30 Dose: 100 mg Documented by: Aspirin (Aspirin) 81 mg PO DAILY@1700 [facility] Last Admin: 01/20/19 16:42 Dose: 81 mg Documented by: Atorvastatin Calcium (Lipitor) [address] [facility] Last Admin: 01/20/19 21:04 Dose: 40 mg Documented by: Cholecalciferol (Vitamin D3 (25 Mcg = 1000 Iu)) 2,000 unit PO DAILY@1700 [facility] Last Admin: 01/20/19 16:43 Dose: 2,000 unit Documented by: Clopidogrel Bisulfate (Plavix) 75 mg PO DAILY@0900 [facility] Last Admin: 01/21/19 09:31 Dose: 75 mg Documented by: Darbepoetin Ruddy (Aranesp) 40 mcg SQ TU [facility] Last Admin: 01/15/19 11:19 Dose: 40 mcg Documented by: Escitalopram Oxalate (Lexapro) [address] [facility] Last Admin: 01/20/19 21:04 Dose: 10 mg Documented by: Furosemide (Lasix) 80 mg PO BID@0900,1600 [facility] Last Admin: 01/21/19 09:31 Dose: 80 mg Documented by: Gabapentin (Neurontin) 100 mg PO BID@0900,2100 [facility] Last Admin: 01/21/19 09:31 Dose: 100 mg Documented by: Heparin Sodium (Porcine) (Heparin) 5,000 unit SQ Q8HR [facility] Last Admin: 01/21/19 09:30 Dose: 5,000 unit Documented by: Hydralazine HCl (Apresoline) 25 mg PO BID [facility] Last Admin: 01/21/19 09:54 Dose: Not Given Documented by: Insulin Aspart (Novolog) 0 unit SQ [facility]; Protocol Last Admin: 01/21/19 12:57 Dose: 1 unit Documented by: Insulin Detemir (Levemir) [address] [facility] Last Admin: 01/20/19 21:06 Dose: 12 unit Documented by: Lactobacillus Acidoph/Bulgaricus (Lactinex) 1 each PO DAILY@1700 [facility] Last Admin: 01/20/19 16:43 Dose: 1 each Documented by: Magnesium Hydroxide (Milk Of Magnesia) 2,400 mg PO DAILY PRN PRN Reason: Constipation Magnesium Oxide (Mag-Ox) 400 mg PO DAILY [facility] Last Admin: 01/21/19 09:30 Dose: 400 mg Documented by: Metoprolol Tartrate (Lopressor) 50 mg PO BID@0900,2100 [facility] Last Admin: 01/21/19 09:31 Dose: 50 mg Documented by: Miscellaneous Information (Pneumonia Protocol Utilized) 1 each PO ONCE PRN PRN Reason: Per Protocol Miscellaneous Information (Magnesium Per Protocol) 1 each MISCELLANE DAILY PRN; Protocol PRN Reason: Per Protocol Multivitamins (Theragran) 1 each PO DAILY@1700 [facility] Last Admin: 01/20/19 16:42 Dose: 1 each Documented by: Naloxone HCl (Narcan) 0.2 mg IV Q2M PRN PRN Reason: Opioid Reversal Pantoprazole Sodium (Protonix) 40 mg PO -BRKFST [facility] Last Admin: 01/21/19 06:37 Dose: 40 mg Documented by: Senna/Docusate Sodium (Senokot-S) 2 each PO BID [facility] Last Admin: 01/21/19 09:31 Dose: 2 each Documented by: Silver Sulfadiazine (Silvadene Cream) [address] [facility] Last Admin: 01/20/19 21:06 Dose: Not Given Documented by: Spironolactone (Aldactone) 25 mg PO DAILY [facility] Last Admin: 01/21/19 09:31 Dose: 25 mg Documented by: Tamsulosin HCl (Flomax) 0.4 mg PO HS [facility] Last Admin: 01/20/19 21:04 Dose: 0.4 mg Documented by: Zinc Sulfate (Orazinc) 220 mg PO DAILY@1700 [facility] Last Admin: 01/20/19 09:03 Dose: 220 mg Documented by: Objective - Vital Signs Vital signs: Vital Signs Temp 98.1 F 01/21/19 12:00 Pulse 64 01/21/19 12:00 Resp 20 01/21/19 12:00 BP 123/62 01/21/19 12:00 Pulse Ox 98 01/21/19 12:00 Intake & Output 01/20/19 01/21/19 01/21/19 18:59 06:59 18:59 Intake Total 1478 444 Output Total 5650 800 Balance -4172 -800 444 Weight 96.4 kg Intake: IV 30 Invasive Line 3 30 Oral 1448 444 Output: Urine 5650 800 Other: Voiding Method Indwelling Catheter Indwelling Catheter # Voids 1 - Exam This is a 73-year-old male sitting up in the chair in no acute distress. Patient is awake, alert and oriented 3. Vital signs are stable. HEAD: Normocephalic/atraumatic. EYES: Normal reaction of pupils, equal size. Conjunctiva pink, sclera white. NOSE: Clear with pink turbinates. THROAT: No erythema or exudates. NECK: No masses, no JVD, no thyroid enlargement, no adenopathy. CHEST: No chest wall deformity. Symmetrical expansion. LUNGS: Diminished breath sounds at the bases with equal air entry with diffuse crackles, but no wheeze, rhonchi or dullness. CVS: Regular rate and rhythm, normal S1 and S2, no gallops, no murmurs, no rubs ABDOMEN: Soft, obese, nontender. No hepatosplenomegaly, normal bowel sounds, no guarding or rigidity. EXTREMITIES: No clubbing, bilateral lower extremity edema, and small healing blisters on his anterior shins, and his bilateral feet with no significant surrounding erythema or warmth, no cyanosis, 2+ pulses and upper and lower extremities. Both lower extremities are lizbeth wrapped. Edema has improved. - Labs CBC & Chem 7: 01/20/19 06:21 01/20/19 06:21 Labs: Abnormal Lab Results - Last 24 Hours (Table) 01/20/19 01/20/19 01/21/19 Range/Units 16:37 20:52 06:15 POC Glucose (mg/dL) 179 H 218 H 101 H (75-99) mg/dL 01/21/19 Range/Units 12:11 POC Glucose (mg/dL) 163 H (75-99) mg/dL Assessment and Plan Assessment: Generalized weakness, lethargy and altered mental status likely due to metabolic encephalopathy. Improved Acute on chronic kidney disease stage III. Baseline creatinine around 1.1. Creatinine 2.86 on admission. Improving, current creatinine as of yesterday was 1.28. Acute on chronic CHF with diastolic dysfunction. Currently on oral Lasix. Metabolic alkalosis/contraction alkalosis secondary to diuresis. Started on acetazolamide. Mild hyperkalemia due to acute kidney injury and also potassium supplementation at home Recent history of bilateral lower extremities cellulitis Status post antibiotic course at rehab Chronic Anemia/anemia of chronic disease Possible right lower lobe pneumonia. Low suspicion. Patient did have T-max 100.9 and no leukocytosis. Currently patient is afebrile. Severe mitral regurgitation with severely calcified mitral annulus. Status post repair in October 2018 Coronary artery disease with history of stent placement to the LAD on 09/24/2018 Hypertension Hyperlipidemia Diabetes type 2 Obstructive sleep apnea not on CPAP at home Paroxysmal atrial fibrillation currently maintaining sinus rhythm Secondary pulmonary hypertension due to valvular heart disease Osteoarthritis Diabetic peripheral neuropathy Previous history of pipe smoking DVT prophylaxis with heparin subcu Recommendations and discussion: Recommend to continue current medications, management, and symptomatic treatment. Will continue to monitor closely. Will repeat CBC and BMP in the morning. Current hemoglobin as of yesterday was 7.7. No active bleeding noted. PT/OT following. Multiple medical consultations are following. Case management and social work are following and family has requested a meeting to discuss discharge planning along with palliative and hospice care. The plan thus far is for possible return to [facility] for continued PT/OT therapy. Due to multiple complex medical issues prognosis is guarded. Further recommendations to follow. Possible discharge in 24-48 hours.
[2019-01-21 16:50] LABS: Glucose,Whole Blood 297 mg/dL (75-99)
[2019-01-21] MEDS: MULTIVITAMINS, THERA 1 EACH TAB PO SCH (17:50)
[2019-01-21] MEDS: CHOLECALCIFEROL 1,000 UNIT TAB PO SCH (17:50)
[2019-01-21] MEDS: ZINC SULFATE 220 MG CAP PO SCH (17:50)
[2019-01-21] MEDS: LACTOBACILLUS ACIDOPH & BULGAR 1 EACH PACKET PO SCH (17:50)
[2019-01-21] MEDS: ASPIRIN 81 MG PO SCH (17:50)
[2019-01-21 20:35] LABS: Glucose,Whole Blood 255 mg/dL (75-99)
[2019-01-21] MEDS: ATORVASTATIN 40 MG TAB PO SCH (21:31)
[2019-01-21] MEDS: ESCITALOPRAM 10 MG TAB PO SCH (21:31)
[2019-01-21] MEDS: TAMSULOSIN 0.4 MG CAP.ER.24H PO SCH (21:32)
[2019-01-21] MEDS: INSULIN DETEMIR (LEVEMIR) 100 UNIT/ML SYR SQ SCH (21:35)
[2019-01-22] MEDS: HEPARIN SODIUM,PORCINE 5,000 UNIT/ML 1 ML VIAL SQ SCH ×4 (02:11→23:16)
[2019-01-22] MEDS: PANTOPRAZOLE 40 MG TABLET PO SCH (06:09)
[2019-01-22] MEDS: INSULIN ASPART (NovoLOG) 100 UNIT/ML VIAL SQ SCH ×4 (06:09→21:31)
[2019-01-22 06:18] LABS: Glucose,Whole Blood 144 mg/dL (75-99)
[2019-01-22 06:26] LABS: Anisocytosis Slight; Basophils % (A) 1 %; Eosinophils # (A) 0.6 k/uL (0-0.7); Eosinophils % (A) 8 %; HCT 25.1 % (39.0-53.0); HGB 7.8 gm/dL (13.0-17.5); Hypochromasia Marked; Lymphocytes # (A) 0.7 k/uL (1.0-4.8); Lymphocytes % (A) 10 %; MCH 30.7 pg (25.0-35.0); Macrocytosis Slight; Mean Platelet Volume 6.1; Monocytes # (A) 0.3 k/uL (0-1.0); Monocytes % (A) 5 %; Neutrophils # (A) 5.7 k/uL (1.3-7.7); Neutrophils % (A) 76 %; Platelet Count 237 k/uL (150-450); RBC 2.54 m/uL (4.30-5.90); RDW 17.2 % (11.5-15.5); WBC 7.5 k/uL (3.8-10.6)
[2019-01-22 06:39] LABS: Calcium 8.7 mg/dL (8.4-10.2); Magnesium 1.6 mg/dL (1.6-2.3)
--- NOTE | 2019-01-22 09:28 | CDI ---
Documentation Clarification Form Date: 01/22/2019 9:16:27 AM From: Yesi Leon CCS, CCDS Admit Date: 01/09/2019 11:45:00 PM Patient Name: Deep Anderson Visit Number: [id number] Discharge Date: ATTENTION: The Clinical Documentation Specialists (CDI) and [facility] Coding Staff appreciate your assistance in clarifying documentation. Please respond to the clarification below the line at the bottom and electronically sign. The CDI & [facility] Coding staff will review the response and follow-up if needed. Please note: Queries are made part of the Legal Health Record. If you have any questions, please contact the author of this message via ITS. Dr. Reshma Merrill: There is conflicting documentation throughout the record regarding the type & acuity of congestive heart failure. History/Risk Factors: Chronic diastolic CHF, Paroxysmal atrial fibrillation, CAD status post stenting of LAD in September, Hypertension, Hyperlipidemia, DM II with peripheral neuropathy, CKD, COPD, Sleep apnea, pulmonary hypertension & former smoker. Clinical Indicators: Presented with altered mentation, recent admit with sepsis. Diagnosed with metabolic encephalopathy, Acute on CKD III, Acute on chronic CHF with diastolic dysfunction. VS: T 100.9^, P 71, R 24^, BP 138/66^, PO 93 2Lnc. BNP: 16,800 Echocardiogram Results 01/11: Moderate LVH, Systolic function low normal w/EF 50-55%, Right ventricle severely enlarged, left atrium moderately dilated, right atrium enlarged, Severe pulmonary hypertension. Chest X Ray: Left pleural effusion, probable pulmonary edema, suggestive of congestive heart failure. Repeat: RLL consolidation, correlate for pneumonia. Treatment: Broad spectrum antibiotics: Levaquin & Zosyn; INH Albuterol, IV fluid bolus on 01/09, IV Lasix started 01/10. In your professional opinion, can you please clarify the acuity and type of CHF if known? Systolic, Diastolic or combined Systolic & Diastolic Heart Failure Acute, Chronic or Acute on Chronic Unable to Determine Other, please specify (Last Revision: June 2017) Acute on Chronic diastolic dysfunction MTDD
[2019-01-22] MEDS: CLOPIDOGREL 75 MG TAB PO SCH (09:31)
[2019-01-22] MEDS: GABAPENTIN 100 MG CAP PO SCH ×2 (09:31→21:31)
[2019-01-22] MEDS: METOPROLOL TARTRATE 50 MG TAB PO SCH ×2 (09:31→21:31)
[2019-01-22] MEDS: SPIRONOLACTONE 25 MG TAB PO SCH (09:31)
[2019-01-22] MEDS: FUROSEMIDE 80 MG TAB PO SCH ×2 (09:31→16:46)
[2019-01-22] MEDS: hydrALAZINE HCL 25 MG TAB PO SCH ×2 (09:31→21:31)
[2019-01-22] MEDS: AMIODARONE 100 MG TAB PO SCH (09:31)
[2019-01-22] MEDS: SENNOSIDES-DOCUSATE SODIUM 1 EACH TAB PO SCH ×2 (09:31→21:31)
[2019-01-22] MEDS: MAGNESIUM OXIDE 400 MG TAB PO SCH ×2 (09:43→21:31)
[2019-01-22] MEDS: DARBEPOETIN ALFA 40 MCG/0.4 ML SYRINGE SQ SCH (09:43)
--- NOTE | 2019-01-22 11:50 | P.PN ---
Subjective Patient is seen in follow-up for acute kidney injury. Renal function is stable. No vomiting or diarrhea. Urine output has been good. Denies active chest pain or shortness of breath. Edema improved. Status post blood transfusion on January 14. Hemoglobin 7.8 today. No active bleeding. Currently maintained on Lasix 80 mg orally twice daily and Diamox 250 mg twice daily. Burrell catheter has been discontinued. Vital signs are stable. General: The patient appeared well nourished and normally developed. HEENT: Head exam is unremarkable. Neck is without jugular venous distension. LUNGS: Breath sounds decreased. HEART: Rate and Rhythm are regular. First and second heart sounds normal. No murmurs, rubs or gallops. ABDOMEN: Abdominal exam reveals normal bowel sounds. Non-tender and non- distended. EXTREMITITES: Trace edema. Wrapped. Objective - Vital Signs Vital signs: Vital Signs Temp 98 F 01/22/19 08:00 Pulse 72 01/22/19 08:00 Resp 20 01/22/19 08:00 BP 125/57 01/22/19 08:00 Pulse Ox 95 01/22/19 08:00 Intake & Output 01/21/19 01/22/19 01/22/19 18:59 06:59 18:59 Intake Total 444 120 240 Output Total 700 1300 400 Balance -256 -1180 -160 Weight 94.4 kg Intake: Oral 444 120 240 Output: Urine 700 1300 400 Other: Voiding Method Urinal Urinal Urinal - Labs CBC & Chem 7: 01/22/19 06:04 01/22/19 06:04 Labs: Abnormal Lab Results - Last 24 Hours (Table) 01/21/19 01/21/19 01/21/19 Range/Units 12:11 16:48 20:34 RBC (4.30-5.90) m/uL Hgb (13.0-17.5) gm/dL Hct (39.0-53.0) % RDW (11.5-15.5) % Lymphocytes # (1.0-4.8) k/uL Carbon Dioxide (22-30) mmol/L BUN (9-20) mg/dL Glucose (74-99) mg/dL POC Glucose (mg/dL) 163 H 297 H 255 H (75-99) mg/dL 01/22/19 01/22/19 01/22/19 Range/Units 06:04 06:04 06:07 RBC 2.54 L (4.30-5.90) m/uL Hgb 7.8 L (13.0-17.5) gm/dL Hct 25.1 L (39.0-53.0) % RDW 17.2 H (11.5-15.5) % Lymphocytes # 0.7 L (1.0-4.8) k/uL Carbon Dioxide 37 H (22-30) mmol/L BUN 45 H (9-20) mg/dL Glucose 127 H (74-99) mg/dL POC Glucose (mg/dL) 144 H (75-99) mg/dL Assessment and Plan Plan: Assessment: 1. Acute kidney injury mostly prerenal secondary to cardiorenal syndrome. Renal function improved since admission. Creatinine 1.24 today. 2. 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 3. Volume overload. Improved with diuresis. 4. Anemia. Stool for occult blood negative. Iron deficiency noted - status post 3 doses of IV iron. No active bleeding. Also on aranesp. Status post blood transfusion on January 14. 5. Acute on chronic diastolic CHF with mild to moderate mitral regurgitation, moderate tricuspid regurgitation and severe pulmonary hypertension. 6. Hypomagnesemia secondary to diuresis. Better post replacement. 7. Insulin-dependent diabetes mellitus. 8. Metabolic alkalosis secondary to diuresis. Improved. Plan: Maintain Lasix 80 mg bid. Increase magnesium oxide to twice a day. Avoid nephrotoxins. Repeat electrolytes in the morning.
[2019-01-22 12:25] LABS: Glucose,Whole Blood 165 mg/dL (75-99)
--- NOTE | 2019-01-22 15:05 | P.PN ---
Subjective Progress Note Date: 01/22/19 Principal diagnosis: Acute exacerbation systolic CHF Acute renal injury possibly cardiorenal Bilateral lower extremity cellulitis Encephalopathy 73-year-old white male patient of Dr. Patel, with recent history of mitral valve repair for history of severe mitral valve regurgitation with severely calcified mitral valve annulus, status post complex mitral valve repair on 10/31/2018. Other medical history includes coronary artery disease with recent drug-eluting stent placement in the LAD in September 2018, chronic diastolic heart failure, hypertension, hyperlipidemia, type 2 diabetes mellitus with peripheral neuropathy, chronic kidney disease, moderately severe COPD, obstructive sleep apnea without home CPAP use, hypertension, obesity, previous tobacco dependence and paroxysmal atrial fibrillation. Following his surgery patient went to subacute rehab at [facility] for further rehabilitation related to significant weakness, and prolonged recovery postoperative mitral valve repair. Patient also had recent hospitalization in November for bilateral lower extremity cellulitis. Patient was treated with Zosyn and vancomycin, the swelling and the blistering have improved. 01/11/2019 Patient is seen and evaluated in room at bedside; patient complaints of difficulty sleeping; no other complaints; per nursing staff patient has been complaining of hallucinating during the night; no such complaints anymore Vital signs are reviewed and remained stable with a temperature of 97.5, pulse 62, respiration 18 and blood pressure 120/61 and SpO2 of 97% on 2 L Laboratory review shows a white blood count of 7.4, hemoglobin 7 and platelet count of 04[birth year]14/1989; sodium 139 and potassium of 4.6; BUN/creatinine has been slowly trending down from 2.7 yesterday down to 2.4; magnesium of 1.4; patient is started on electrolyte protocol; patient remains on IV diuretics per cardiology for acute exacerbation CHF and hydralazine is admitted; pulmonary service recommending to stop antibiotics for pneumonia; ID to see patient for trace of antibiotics for cellulitis 01/12/2019 Patient transferred to ICU yesterday- found to be lethargic and somewhat confused; patient's is awake alert and oriented this morning. Patient remains on IV Lasix 40 mg every 8 hours. He made excellent urine output and his net fluid balance is been negative more than 2.5 L over the past 24 hours. Chest x-ray shows improvement in the aeration. There is underlying cardiomegaly. Echocardiogram was repeated and it showed evidence of severe pulmonary hypertension. PA pressures were as high as 69. LV function showed an ejection fraction of 50-55%. RV was severely dilated. RA was mild a dilated. There was mild aortic regurgitation. Mild to moderate mitral regurgitation. Moderate mitral stenosis. Evidence of mitral valve repair. Peak and mean mitral valve gradients were 17 and 6 mmHg by Doppler. Severe pulmonary hypertension was noted. Inferior vena cava was mildly dilated. His proBNP was significantly elevated and he responded to diuretics. He was probably cardiorenal syndrome and his kidney function is also improving and the creatinine is down to 2.1. 01/13/2019 Patient is seen and evaluated in ICU this follow-up sitting up in bedside chair Patient remains on Lasix 40 mg IV every 8 hours with fair urine output and a negative fluid balance over past 24 hours Labs show improvement in creatinine; hemoglobin remained stable at 7.1; no signs of overt bleeding; repeat chest x-ray shows CHF and cardiomegaly; repeat echocardiogram shows an ejection fraction of 50-55% with severe pulmonary hypert ension 01/14/2019 Patient is currently lying in the bed comfortably. No complaints of chest pain. Patient still having shortness of breath. Currently saturating well on 2 L nausea cannula oxygen. No complaints of chest pain. Leg swelling is improving. Currently on oral Lasix for 80 mg twice daily. Otherwise patient's hemoglobin came down to 6.8 today. Patient was given 1 unit PRBC and hematology was consulted due to chronic anemia Renal function is improving. Otherwise patient does have generalized weakness and PTOT was consulted. Patient will need rehab transfer 01/15/2019 Patient says that his breathing is better. Still having significant leg swelling. Currently being continued on Lasix 80 mg twice daily. Renal function improving with creatinine level I.39 today. Hemoglobin level improved after blood transfusion. Hemoglobin is 8.1 today. No complaints of nausea vomiting or abdominal pain. Patient is able to sit in the chair comfortably. Still have very minimal activity. 01/16/2019 Patient seems to be more lethargic today. Currently being continued on oral Lasix 80 mg twice daily and Diamox was added. Blood pressure is stable. Patient does have good urine output. Creatinine level improved to 1.2. BUN 63 and magnesium level is 1.6. Patient is on magnesium replacement protocol. Currently saturating well on oxygen with another cannula at 2 L. 01/17/2019 Patient is more awake and alert and oriented. Able to communicate appropriately. Breathing status is much improved. Leg swelling is improving as well. Creatinine level is 1.33 today. No complaints of nausea vomiting or abdominal pain. Tolerating oral diet. Urine noted has been good. Hemoglobin level again dropped down to 7.4 today. Denied any hematemesis or melena. Continued on diuresis with Lasix and Diamox. Cardiology and nephrology is on board. Possible transfer to rehab once the bed is available. 01/18/2019 Patient is currently awake alert and oriented. Still having generalized weakness. Bilateral leg swelling probably minimal. Creatinine level is 1.27 today. Hemoglobin dropped to 7.2. Patient is currently being continued on Lasix 80 mg twice a day. Cardiology and nephrology is following. Patient's family is considering transfer to [facility] with palliative care. Denied any chest pain or short of breath. No fever no chills. No other acute overnight issues. 01/19/2019 Patient is awake alert and oriented. Breathing is slightly improved. Otherwise hemoglobin dropped to 7.0 and creatinine 1.35. Patient is currently being continued on Lasix 80 mg twice daily. Cardiology and nephrology is following. Patient be given 1 unit of PRBC due to low hemoglobin. Patient is also getting IV iron and Neupogen subcu. Leg swelling is about the same. Patient does have generalized weakness. No fever no chills. No headache or dizziness or lightheadedness. No palpitations. 01/20/2019 Patient is able to sit in the chair today. Hemoglobin went up to 7.7 after 1 unit of PRBC transfusion. Creatinine 1.28. Improving. History having significant leg swelling. Patient was encouraged with PTOT and increasing ambulation. Patient is being continued on Lasix 80 mg twice daily. Possible discharge to rehab in next 24 hours. 01/21/2019 Patient is up sitting in the chair today no acute distress. No acute overnight issues. Family is at the bedside. Currently patient denies any chest pain, shortness of breath, or palpitations at this time. Patient is afebrile. Patient denies any nausea or vomiting and is tolerating diet. Discussed with the patient and family at length about possible discharge plans and the patient would like to return to [facility] for continued PT/OT therapy. Patient was much more awake and alert and having a full conversation today. is concerned about palliative versus hospice and states that her insurance does not cover palliative. Case management and social work are following closely and arranging for a meeting to discuss these options with family tomorrow in the afternoon. Will repeat a.m. labs. Hemoglobin today was 7.7. Will continue to monitor closely. REVIEW OF SYSTEMS: ENT: Reports diminished vision and hearing. CARDIOVASCULAR: No reports of chest pain or palpitations RESPIRATORY: No reports shortness of breath or cough. GI: No nausea, vomiting or diarrhea. : No dysuria or retention. NERVOUS SYSTEM: Reports generalized weakness. HEMATOLOGY/ONCOLOGY: Reports history of anemia. ENDOCRINE: reports diabetes CONSTITUTIONAL: Denies fever or fatigue DERMATOLOGY: Reports swelling and dryness of bilateral lower extremities PSYCHIATRY: Cooperative, non-suicidal Active Medications Acetaminophen (Tylenol Tab) 650 mg PO Q6H PRN PRN Reason: Mild Pain Last Admin: 01/21/19 09:37 Dose: 650 mg Documented by: Albuterol/Ipratropium (Duoneb 0.5 Mg-3 Mg/3 Ml Soln) 3 ml INHALATION RT-Q4H PRN PRN Reason: shortness of breath Last Admin: 01/15/19 12:26 Dose: 3 ml Documented by: Amiodarone HCl (Cordarone) 100 mg PO DAILY [facility] Last Admin: 01/21/19 09:30 Dose: 100 mg Documented by: Aspirin (Aspirin) 81 mg PO DAILY@1700 [facility] Last Admin: 01/20/19 16:42 Dose: 81 mg Documented by: Atorvastatin Calcium (Lipitor) 40 mg PO [facility] Last Admin: 01/20/19 21:04 Dose: 40 mg Documented by: Cholecalciferol (Vitamin D3 (25 Mcg = 1000 Iu)) 2,000 unit PO DAILY@1700 [facility] Last Admin: 01/20/19 16:43 Dose: 2,000 unit Documented by: Clopidogrel Bisulfate (Plavix) 75 mg PO DAILY@0900 [facility] Last Admin: 01/21/19 09:31 Dose: 75 mg Documented by: Darbepoetin Ruddy (Aranesp) 40 mcg SQ TU [facility] Last Admin: 01/15/19 11:19 Dose: 40 mcg Documented by: Escitalopram Oxalate (Lexapro) 10 mg PO [facility] Last Admin: 01/20/19 21:04 Dose: 10 mg Documented by: Furosemide (Lasix) 80 mg PO BID@0900,1600 [facility] Last Admin: 01/21/19 09:31 Dose: 80 mg Documented by: Gabapentin (Neurontin) 100 mg PO BID@0900,2100 [facility] Last Admin: 01/21/19 09:31 Dose: 100 mg Documented by: Heparin Sodium (Porcine) (Heparin) 5,000 unit SQ Q8HR [facility] Last Admin: 01/21/19 09:30 Dose: 5,000 unit Documented by: Hydralazine HCl (Apresoline) 25 mg PO BID [facility] Last Admin: 01/21/19 09:54 Dose: Not Given Documented by: Insulin Aspart (Novolog) 0 unit SQ [facility]; Protocol Last Admin: 01/21/19 12:57 Dose: 1 unit Documented by: Insulin Detemir (Levemir) 12 unit SQ [facility] Last Admin: 01/20/19 21:06 Dose: 12 unit Documented by: Lactobacillus Acidoph/Bulgaricus (Lactinex) 1 each PO DAILY@1700 [facility] Last Admin: 01/20/19 16:43 Dose: 1 each Documented by: Magnesium Hydroxide (Milk Of Magnesia) 2,400 mg PO DAILY PRN PRN Reason: Constipation Magnesium Oxide (Mag-Ox) 400 mg PO DAILY [facility] Last Admin: 01/21/19 09:30 Dose: 400 mg Documented by: Metoprolol Tartrate (Lopressor) 50 mg PO BID@0900,2100 [facility] Last Admin: 01/21/19 09:31 Dose: 50 mg Documented by: Miscellaneous Information (Pneumonia Protocol Utilized) 1 each PO ONCE PRN PRN Reason: Per Protocol Miscellaneous Information (Magnesium Per Protocol) 1 each MISCELLANE DAILY PRN; Protocol PRN Reason: Per Protocol Multivitamins (Theragran) 1 each PO DAILY@1700 [facility] Last Admin: 01/20/19 16:42 Dose: 1 each Documented by: Naloxone HCl (Narcan) 0.2 mg IV Q2M PRN PRN Reason: Opioid Reversal Pantoprazole Sodium (Protonix) 40 mg PO -BRKFST [facility] Last Admin: 01/21/19 06:37 Dose: 40 mg Documented by: Senna/Docusate Sodium (Senokot-S) 2 each PO BID [facility] Last Admin: 01/21/19 09:31 Dose: 2 each Documented by: Silver Sulfadiazine (Silvadene Cream) 1 applic [facility] Last Admin: 01/20/19 21:06 Dose: Not Given Documented by: Spironolactone (Aldactone) 25 mg PO DAILY [facility] Last Admin: 01/21/19 09:31 Dose: 25 mg Documented by: Tamsulosin HCl (Flomax) 0.4 mg PO HS [facility] Last Admin: 01/20/19 21:04 Dose: 0.4 mg Documented by: Zinc Sulfate (Orazinc) 220 mg PO DAILY@1700 [facility] Last Admin: 01/20/19 09:03 Dose: 220 mg Documented by: 01/22/2019 Patient is sitting up at the side of the bed in no acute distress. No acute overnight issues. Planning to meet with the family this afternoon to discuss options of palliative, hospice, and return to [facility] for continued PT/OT therapy. Multiple medical consultations are following. Patient's hemoglobin is 7.8 today and will continue to monitor closely. Patient worked with physical therapy today and was able to ambulate with assist and per their recommendations continuing to recommend subacute rehab for strength and mobility. Patient denies any chest pain, shortness of breath, or palpitations at this time. Patient is currently on 2 L of oxygen via nasal cannula and has been dependent on that. Patient is afebrile. Patient denies any nausea or vomiting and is tolerating diet. Patient continues to need encouragement on oral intake. Patient's blood sugars continue to be slightly elevated and will continue sliding scale and Levemir at bed at this time. Guarded prognosis. Objective - Vital Signs Vital signs: Vital Signs Temp 98.3 F 01/22/19 12:00 Pulse 64 01/22/19 12:00 Resp 20 01/22/19 12:00 BP 127/69 01/22/19 12:00 Pulse Ox 96 01/22/19 12:00 Intake & Output 01/21/19 01/22/19 01/22/19 18:59 06:59 18:59 Intake Total 444 120 462 Output Total 700 1300 900 Balance -256 -1180 -438 Weight 94.4 kg Intake: Oral 444 120 462 Output: Urine 700 1300 900 Other: Voiding Method Urinal Urinal Urinal - Exam This is a 73-year-old male sitting up in the chair in no acute distress. Patient is awake, alert and oriented 3. Vital signs are stable. HEAD: Normocephalic/atraumatic. EYES: Normal reaction of pupils, equal size. Conjunctiva pink, sclera white. NOSE: Clear with pink turbinates. THROAT: No erythema or exudates. NECK: No masses, no JVD, no thyroid enlargement, no adenopathy. CHEST: No chest wall deformity. Symmetrical expansion. LUNGS: Diminished breath sounds at the bases with equal air entry with diffuse crackles, but no wheeze, rhonchi or dullness. CVS: Regular rate and rhythm, normal S1 and S2, no gallops, no murmurs, no rubs ABDOMEN: Soft, obese, nontender. No hepatosplenomegaly, normal bowel sounds, no guarding or rigidity. EXTREMITIES: No clubbing, bilateral lower extremity edema, and small healing blisters on his anterior shins, and his bilateral feet with no significant surrounding erythema or warmth, no cyanosis, 2+ pulses and upper and lower extremities. Both lower extremities are lizbeth wrapped. Edema has improved. - Labs CBC & Chem 7: 01/22/19 06:04 01/22/19 06:04 Labs: Abnormal Lab Results - Last 24 Hours (Table) 01/21/19 01/21/19 01/22/19 Range/Units 16:48 20:34 06:04 RBC (4.30-5.90) m/uL Hgb (13.0-17.5) gm/dL Hct (39.0-53.0) % RDW (11.5-15.5) % Lymphocytes # (1.0-4.8) k/uL Carbon Dioxide 37 H (22-30) mmol/L BUN 45 H (9-20) mg/dL Glucose 127 H (74-99) mg/dL POC Glucose (mg/dL) 297 H 255 H (75-99) mg/dL 01/22/19 01/22/19 01/22/19 Range/Units 06:04 06:07 12:24 RBC 2.54 L (4.30-5.90) m/uL Hgb 7.8 L (13.0-17.5) gm/dL Hct 25.1 L (39.0-53.0) % RDW 17.2 H (11.5-15.5) % Lymphocytes # 0.7 L (1.0-4.8) k/uL Carbon Dioxide (22-30) mmol/L BUN (9-20) mg/dL Glucose (74-99) mg/dL POC Glucose (mg/dL) 144 H 165 H (75-99) mg/dL Assessment and Plan Assessment: Generalized weakness, lethargy and altered mental status likely due to metabolic encephalopathy. Improved Acute on chronic kidney disease stage III. Baseline creatinine around 1.1. Creatinine 2.86 on admission. Improving, current creatinine as of yesterday was 1.24. Congestive heart failure with acute on chronic CHF with diastolic dysfunction. Currently on oral Lasix. Metabolic alkalosis/contraction alkalosis secondary to diuresis. Started on acetazolamide. Mild hyperkalemia due to acute kidney injury and also potassium supplementation at home Recent history of bilateral lower extremities cellulitis Status post antibiotic course at rehab Chronic Anemia/anemia of chronic disease Possible right lower lobe pneumonia. Low suspicion. Patient did have T-max 100.9 and no leukocytosis. Currently patient is afebrile. Severe mitral regurgitation with severely calcified mitral annulus. 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 Will continue to monitor closely. Will repeat CBC and BMP in the morning. Current hemoglobin today is 7.8. No active bleeding noted. PT/OT following. Multiple medical consultations are following. Case management and social work are following and the plan is to meet with the family today to discuss discharge planning along with palliative and hospice care options. The plan thus far is for possible return to [facility] for continued PT/OT therapy. Due to multiple complex medical issues prognosis is guarded. Further recommendations to follow. Possible discharge in 24-48 hours.
[2019-01-22] MEDS: MULTIVITAMINS, THERA 1 EACH TAB PO SCH (16:46)
[2019-01-22] MEDS: ASPIRIN 81 MG PO SCH (16:46)
[2019-01-22] MEDS: LACTOBACILLUS ACIDOPH & BULGAR 1 EACH PACKET PO SCH (16:46)
[2019-01-22] MEDS: CHOLECALCIFEROL 1,000 UNIT TAB PO SCH (16:46)
[2019-01-22] MEDS: ZINC SULFATE 220 MG CAP PO SCH (16:47)
[2019-01-22 16:49] LABS: Glucose,Whole Blood 253 mg/dL (75-99)
[2019-01-22 20:36] LABS: Glucose,Whole Blood 249 mg/dL (75-99)
[2019-01-22] MEDS: ATORVASTATIN 40 MG TAB PO SCH (21:31)
[2019-01-22] MEDS: TAMSULOSIN 0.4 MG CAP.ER.24H PO SCH (21:31)
[2019-01-22] MEDS: INSULIN DETEMIR (LEVEMIR) 100 UNIT/ML SYR SQ SCH (21:31)
[2019-01-22] MEDS: ESCITALOPRAM 10 MG TAB PO SCH (21:31)
[2019-01-22] MEDS: ACETAMINOPHEN TAB 325 MG TAB PO PRN (21:33)
[2019-01-23] MEDS: INSULIN ASPART (NovoLOG) 100 UNIT/ML VIAL SQ SCH ×2 (06:14→12:33)
[2019-01-23] MEDS: PANTOPRAZOLE 40 MG TABLET PO SCH (06:15)
[2019-01-23 06:22] LABS: Glucose,Whole Blood 172 mg/dL (75-99)
[2019-01-23 06:30] LABS: Anisocytosis Slight; Basophils # (A) 0.1 k/uL (0-0.2); Basophils % (A) 1 %; Eosinophils # (A) 0.7 k/uL (0-0.7); Eosinophils % (A) 9 %; HCT 26.9 % (39.0-53.0); HGB 8.2 gm/dL (13.0-17.5); Hypochromasia Moderate; Lymphocytes # (A) 0.9 k/uL (1.0-4.8); Lymphocytes % (A) 11 %; MCHC 30.5 g/dL (31.0-37.0); MCV 98.1 fL (80.0-100.0); Macrocytosis Slight; Mean Platelet Volume 6.5; Monocytes # (A) 0.4 k/uL (0-1.0); Monocytes % (A) 5 %; Neutrophils # (A) 5.3 k/uL (1.3-7.7); Neutrophils % (A) 71 %; Platelet Count 251 k/uL (150-450); RBC 2.74 m/uL (4.30-5.90); RDW 17.7 % (11.5-15.5); WBC 7.4 k/uL (3.8-10.6)
[2019-01-23 06:50] LABS: Calcium 8.6 mg/dL (8.4-10.2); Potassium 3.8 mmol/L (3.5-5.1)
[2019-01-23] MEDS: hydrALAZINE HCL 25 MG TAB PO SCH (09:01)
[2019-01-23] MEDS: MAGNESIUM OXIDE 400 MG TAB PO SCH (09:01)
[2019-01-23] MEDS: AMIODARONE 100 MG TAB PO SCH (09:01)
[2019-01-23] MEDS: METOPROLOL TARTRATE 50 MG TAB PO SCH (09:01)
[2019-01-23] MEDS: FUROSEMIDE 80 MG TAB PO SCH (09:01)
[2019-01-23] MEDS: CLOPIDOGREL 75 MG TAB PO SCH (09:01)
[2019-01-23] MEDS: SENNOSIDES-DOCUSATE SODIUM 1 EACH TAB PO SCH (09:01)
[2019-01-23] MEDS: GABAPENTIN 100 MG CAP PO SCH (09:02)
[2019-01-23] MEDS: SPIRONOLACTONE 25 MG TAB PO SCH (09:02)
[2019-01-23] MEDS: HEPARIN SODIUM,PORCINE 5,000 UNIT/ML 1 ML VIAL SQ SCH (09:02)
[2019-01-23 11:32] VITALS: BP 134/63; PULSE 68; TEMP 97.6
[2019-01-23 12:00] VITALS: RESP 16
[2019-01-23 12:04] LABS: Glucose,Whole Blood 200 mg/dL (75-99)
--- NOTE | 2019-01-23 12:20 | P.PN ---
Subjective Patient is seen in follow-up for acute kidney injury. Renal function is stable. No vomiting or diarrhea. Urine output has been good. Denies active chest pain or shortness of breath. Edema improved. Status post blood transfusion on January 14. Hemoglobin 8.2 today. No active bleeding. Currently maintained on Lasix 80 mg orally twice daily and Aldactone. Burrell catheter has been discontinued. No active complaints at this time. Vital signs are stable. General: The patient appeared well nourished and normally developed. HEENT: Head exam is unremarkable. Neck is without jugular venous distension. LUNGS: Breath sounds decreased. HEART: Rate and Rhythm are regular. First and second heart sounds normal. No murmurs, rubs or gallops. ABDOMEN: Abdominal exam reveals normal bowel sounds. Non-tender and non- distended. EXTREMITITES: Trace edema. Wrapped. Objective - Vital Signs Vital signs: Vital Signs Temp 97.6 F 01/23/19 08:00 Pulse 68 01/23/19 11:36 Resp 16 01/23/19 11:36 BP 134/63 01/23/19 08:00 Pulse Ox 98 01/23/19 08:00 Intake & Output 01/22/19 01/23/19 01/23/19 18:59 06:59 18:59 Intake Total 684 240 Output Total 900 300 Balance -216 -300 240 Weight 93.168 kg Intake: Oral 684 240 Output: Urine 900 300 Other: Voiding Method Urinal Toilet Toilet Urinal Urinal # Voids 1 # Bowel Movements 1 - Labs CBC & Chem 7: 01/23/19 05:51 01/23/19 05:51 Labs: Abnormal Lab Results - Last 24 Hours (Table) 01/22/19 01/22/19 01/22/19 Range/Units 12:24 16:47 20:28 RBC (4.30-5.90) m/uL Hgb (13.0-17.5) gm/dL Hct (39.0-53.0) % MCHC (31.0-37.0) g/dL RDW (11.5-15.5) % Lymphocytes # (1.0-4.8) k/uL Carbon Dioxide (22-30) mmol/L BUN (9-20) mg/dL Creatinine (0.66-1.25) mg/dL Glucose (74-99) mg/dL POC Glucose (mg/dL) 165 H 253 H 249 H (75-99) mg/dL 01/23/19 01/23/19 01/23/19 Range/Units 05:51 05:51 06:10 RBC 2.74 L (4.30-5.90) m/uL Hgb 8.2 L (13.0-17.5) gm/dL Hct 26.9 L (39.0-53.0) % MCHC 30.5 L (31.0-37.0) g/dL RDW 17.7 H (11.5-15.5) % Lymphocytes # 0.9 L (1.0-4.8) k/uL Carbon Dioxide 36 H (22-30) mmol/L BUN 44 H (9-20) mg/dL Creatinine 1.30 H (0.66-1.25) mg/dL Glucose 159 H (74-99) mg/dL POC Glucose (mg/dL) 172 H (75-99) mg/dL 01/23/19 Range/Units 12:02 RBC (4.30-5.90) m/uL Hgb (13.0-17.5) gm/dL Hct (39.0-53.0) % MCHC (31.0-37.0) g/dL RDW (11.5-15.5) % Lymphocytes # (1.0-4.8) k/uL Carbon Dioxide (22-30) mmol/L BUN (9-20) mg/dL Creatinine (0.66-1.25) mg/dL Glucose (74-99) mg/dL POC Glucose (mg/dL) 200 H (75-99) mg/dL Assessment and Plan Plan: Assessment: 1. Acute kidney injury mostly prerenal secondary to cardiorenal syndrome. Renal function improved since admission. Creatinine 1.3 today. 2. 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 3. Volume overload. Improved with diuresis. 4. Anemia. Stool for occult blood negative. Iron deficiency noted - status post 3 doses of IV iron. No active bleeding. Also on aranesp. Status post blood transfusion on January 14. 5. Acute on chronic diastolic CHF with mild to moderate mitral regurgitation, moderate tricuspid regurgitation and severe pulmonary hypertension. 6. Hypomagnesemia secondary to diuresis. Better post replacement. Maintained on oral magnesium oxide. 7. Insulin-dependent diabetes mellitus. 8. Metabolic alkalosis secondary to diuresis. Improved. Plan: Maintain Lasix 80 mg bid. Avoid nephrotoxins. Stable to be discharged to rehab from nephrology standpoint. Repeat BMP and magnesium level 2-3 days postdischarge and follow up outpatient in the next 1-2 weeks.
--- NOTE | 2019-01-23 12:36 | P.DS ---
Providers Date of admission: 01/09/19 23:45 Expected date of discharge: 01/23/19 Attending physician: Meron Palma Consults: 01/09/19 23:43 Consult Physician Routine Consulting Provider: Cole Burrell Consult Reason/Comments: sepsis Do you want consulting provider notified?: Yes 01/09/19 23:44 Consult Physician Routine Consulting Provider: Robson Teixeira Consult Reason/Comments: arf Do you want consulting provider notified?: Yes 01/10/19 10:27 Consult Physician Routine Consulting Provider: Conrad Howard Consult Reason/Comments: Pleural effusion Do you want consulting provider notified?: Yes 01/10/19 14:21 Consult Physician Routine Consulting Provider: Adonis Austin Consult Reason/Comments: re-evaluate MV, CHF, pulm edema Do you want consulting provider notified?: Yes 01/14/19 11:06 Consult Physician Routine Consulting Provider: Tal Parish Consult Reason/Comments: anemia Do you want consulting provider notified?: Yes Primary care physician: Jordan Patel Hospital Course: Final diagnosis Generalized weakness, lethargy and altered mental status likely due to metabolic encephalopathy Acute on chronic kidney disease stage III Congestive heart failure with acute on chronic CHF with diastolic dysfunction Metabolic alkalosis/contraction alkalosis secondary to diuresis Mild hyperkalemia due to acute kidney injury Recent history of bilateral lower extremities cellulitis Chronic Anemia/anemia of chronic disease Possible right lower lobe pneumonia. Severe mitral regurgitation with severely calcified mitral annulus. 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 Patient will follow-up with primary care provider upon discharge as well as cardiology and nephrology in the outpatient setting. Total time taken is 35 minutes. History of present illness This is a 73-year-old male who is a patient of Dr. Patel in the outpatient setting and was recently admitted for generalized weakness, lethargy and altered mental status, acute renal failure along with acute exacerbation of his congestive heart failure and was being closely monitored. PT/OT were following along with multiple medical consultations during hospitalization. During hospitalization patient's hemoglobin was low and received 2 units of packed red blood cells and hemoglobin is currently 8.2 today. No active bleeding noted. Patient also started receiving Aranesp subcutaneous injections and will continue with 1 weekly in the outpatient setting. Patient may need repeat labs in 4-5 da ys. Currently patient denies any chest pain, shortness of breath, or palpitations at this time. Patient is afebrile. Patient denies any nausea or vomiting and is tolerating diet. Discussed with the patient's family as well as the patient at length about discharge plans and palliative versus hospice care. Case management and social work have been following closely. Patient's family was given information about palliative care from [facility] and currently at this time Nisha Darius does not allow for visitations through other providers with palliative at this time. This was discussed with the family again and family will coordinate and arrange for palliative in the outpatient setting once patient is discharged from the rehab facility. Patient will continue with PT/OT therapy for strength and mobility. Currently patient's condition is stable with much improvement and will be discharged to the F today. Guarded prognosis. On exam vital signs are stable. Temp is 97.6F, pulse is 68, respirations are 16, blood pressure is 134/63, oxygen saturation is 98% on 2 L via nasal cannula. Cardio S1 and S2 are muffled. Respiratory system shows diminished breath sounds at the bases with a few scattered rhonchi noted and no wheezing on exam. Abdomen is soft, obese, and nontender. Nervous system shows no focal deficits with moderate diffuse weakness. Please refer to medication reconciliation sheet for a list of medications. Patient Condition at Discharge: Fair Plan - Discharge Summary Discharge Rx Participant: No New Discharge Prescriptions: New Spironolactone [Aldactone] 25 mg PO DAILY #30 tab hydrALAZINE HCL [Apresoline] 25 mg PO BID #60 tab Amiodarone [Cordarone] 100 mg PO DAILY #30 tab Furosemide [Lasix] 80 mg PO BID@0900,1600 #60 tab Insulin Detemir (Levemir) [Levemir] 12 unit SQ HS syr Magnesium Oxide [Mag-Ox] 400 mg PO BID 30 Days #60 tab Continue L.acidoph,Paracasei, B.lactis [Probiotic] 1 cap PO DAILY@1700 Ferrous Sulfate [Iron (65 MG Elemental)] 325 mg PO DAILY Cholecalciferol [Vitamin D3 (25 Mcg = 1000 Iu)] 2,000 unit PO DAILY@1700 Multivitamins, Thera [Multivitamin (formulary)] 1 tab PO DAILY@1700 Zinc 50 mg PO DAILY@1700 Albuterol Inhaler [Ventolin Hfa Inhaler] 1 - 2 puff INHALATION RT-Q6H PRN #1 inhaler PRN Reason: Shortness Of Breath Or Wheezing Aspirin 81 mg PO DAILY@1700 Magnesium Hydroxide [Milk of Magnesia] 2,400 mg PO DAILY PRN PRN Reason: Constipation Metoprolol Tartrate [Lopressor] 50 mg PO BID@0900,2100 Escitalopram [Lexapro] 10 mg PO HS tab Atorvastatin [Lipitor] 40 mg PO HS tab Pantoprazole [Protonix] 40 mg PO AC-BRKFST tablet. Acetaminophen Tab [Tylenol] 650 mg PO Q4H PRN PRN Reason: Pain Clopidogrel [Plavix] 75 mg PO DAILY@0900 Darbepoetin Ruddy [Aranesp] 40 mcg SQ TU INSULIN ASPART (NovoLOG) [NovoLOG (formulary)] See Protocol SQ ACHS Sennosides-Docusate Sodium [Senokot-S] 2 tab PO BID Tamsulosin [Flomax] 0.4 mg PO HS SILVER sulfADIAZINE Cream [Silvadene 1% Cream] 1 applic TOPICAL HS Gabapentin [Neurontin] 100 mg PO BID@0900,2100 #6 cap Discontinued Amiodarone [Cordarone] 200 mg PO DAILY #15 tab Insulin Detemir [Levemir Flextouch] 10 units SQ HS 30 Days #3 pen Na Phos,M-B/Na Phos,Di-Ba [Fleet Adult] 133 ml RECTAL DAILY PRN PRN Reason: Constipation Acetaminophen-Codeine 300-30mg [Tylenol w/codeine #3] 1 - 2 tab PO Q6H PRN #6 tab PRN Reason: Pain Furosemide [Lasix] 40 mg PO BID@0900,2100 Potassium Chloride [Klor-Con 20] 20 meq PO DAILY traMADol HCL 50 mg PO Q6H PRN PRN Reason: Pain Cetirizine HCl [Zyrtec] 10 mg PO DAILY Discharge Medication List Cholecalciferol [Vitamin D3 (25 Mcg = 1000 Iu)] 2,000 unit PO DAILY@1700 01/04/16 [History] Ferrous Sulfate [Iron (65 MG Elemental)] 325 mg PO DAILY 01/04/16 [History] L.acidoph,Paracasei, B.lactis [Probiotic] 1 cap PO DAILY@17001/04/16 [History] Multivitamins, Thera [Multivitamin (formulary)] 1 tab PO DAILY@17001/09/17 [History] Zinc 50 mg PO DAILY@17007/17/18 [History] Albuterol Inhaler [Ventolin Hfa Inhaler] 1 - 2 puff INHALATION RT-Q6H PRN #1 inhaler 11/11/18 [Rx] Aspirin 81 mg PO DAILY@17011/29/18 [History] Magnesium Hydroxide [Milk of Magnesia] 2,400 mg PO DAILY PRN 11/29/18 [History] Metoprolol Tartrate [Lopressor] 50 mg PO BID@0900,2100 11/29/18 [History] Atorvastatin [Lipitor] 40 mg PO HS tab 12/13/18 [Rx] Escitalopram [Lexapro] 10 mg PO HS tab 12/13/18 [Rx] Pantoprazole [Protonix] 40 mg PO AC-BRKFST tablet. 12/13/18 [Rx] Acetaminophen Tab [Tylenol] 650 mg PO Q4H PRN 12/23/18 [History] Clopidogrel [Plavix] 75 mg PO DAILY@0900 12/23/18 [History] Darbepoetin Ruddy [Aranesp] 40 mcg SQ TU 12/23/18 [History] INSULIN ASPART (NovoLOG) [NovoLOG (formulary)] See Protocol SQ ACHS 12/23/18 [History] Sennosides-Docusate Sodium [Senokot-S] 2 tab PO BID 12/23/18 [History] Tamsulosin [Flomax] 0.4 mg PO HS 12/23/18 [History] SILVER sulfADIAZINE Cream [Silvadene 1% Cream] 1 applic TOPICAL HS 01/09/19 [History] Amiodarone [Cordarone] 100 mg PO DAILY #30 tab 01/18/19 [Rx] Furosemide [Lasix] 80 mg PO BID@0900,1600 #60 tab 01/18/19 [Rx] Insulin Detemir (Levemir) [Levemir] 12 unit SQ HS syr 01/18/19 [Rx] Spironolactone [Aldactone] 25 mg PO DAILY #30 tab 01/18/19 [Rx] hydrALAZINE HCL [Apresoline] 25 mg PO BID #60 tab 01/18/19 [Rx] Gabapentin [Neurontin] 100 mg PO BID@0900,2100 #6 cap 01/23/19 [Rx] Magnesium Oxide [Mag-Ox] 400 mg PO BID 30 Days #60 tab 01/23/19 [Rx] Follow up Appointment(s)/Referral(s): Maxi Deng MD [STAFF PHYSICIAN] - 2 Weeks Jordan Patel III, MD [Primary Care Provider] - 1-2 days [facility], [NON-STAFF] - Ambulatory/Diagnostic Orders: Basic Metabolic Panel [LAB.AMB] Time Frame: 5 Days, Location: None Selected Complete Blood Count w/diff [LAB.AMB] Time Frame: 5 Days, Location: None Selected Activity/Diet/Wound Care/Special Instructions: Patient is going to [facility] Activity as tolerated Continue current diet Follow-up with primary care provider upon discharge Follow-up with cardiology upon discharge Follow-up with [facility] upon discharge Repeat labs in the next 5 days Discharge Disposition: TRANSFER TO SNF/ECF
== END 2019-01-23 15:47 | DRG 291 ==
LOC: EC 20:53 → 4MS4W 23:45 → 2SICU 01-11 13:40 → 3SCARD 01-13 18:10
PROVIDERS: ADMIT Internal Medicine; ATTEND Internal Medicine
PROC: 30233N1 Transfusion of Nonautologous Red Blood Cells into Peripheral Vein, Percutaneous Approach (ICD-10-PCS; principal; 2019-01-14)
DX: I13.0 Hypertensive heart and chronic kidney disease with heart failure and stage 1 through stage 4 chronic kidney disease, or unspecified chronic kidney disease (principal); G93.41 Metabolic encephalopathy; I50.33 Acute on chronic diastolic (congestive) heart failure; J18.1 Lobar pneumonia, unspecified organism; N17.0 Acute kidney failure with tubular necrosis; E87.3 Alkalosis; J44.0 Chronic obstructive pulmonary disease with (acute) lower respiratory infection; L03.115 Cellulitis of right lower limb; L03.116 Cellulitis of left lower limb; E11.22 Type 2 diabetes mellitus with diabetic chronic kidney disease; E11.42 Type 2 diabetes mellitus with diabetic polyneuropathy; E87.5 Hyperkalemia; I27.29 Other secondary pulmonary hypertension; E83.42 Hypomagnesemia; I08.3 Combined rheumatic disorders of mitral, aortic and tricuspid valves; D63.1 Anemia in chronic kidney disease; I45.10 Unspecified right bundle-branch block; I48.0 Paroxysmal atrial fibrillation; N18.3 Chronic kidney disease, stage 3 (moderate); D50.9 Iron deficiency anemia, unspecified; E66.9 Obesity, unspecified; E78.5 Hyperlipidemia, unspecified; G47.33 Obstructive sleep apnea (adult) (pediatric); I25.10 Atherosclerotic heart disease of native coronary artery without angina pectoris; I44.0 Atrioventricular block, first degree; M19.90 Unspecified osteoarthritis, unspecified site; R32 Unspecified urinary incontinence; T50.2X5A Adverse effect of carbonic-anhydrase inhibitors, benzothiadiazides and other diuretics, initial encounter; H26.9 Unspecified cataract; Z79.02 Long term (current) use of antithrombotics/antiplatelets; Z79.4 Long term (current) use of insulin; Z79.82 Long term (current) use of aspirin; Z79.899 Other long term (current) drug therapy; Z95.5 Presence of coronary angioplasty implant and graft; Z99.81 Dependence on supplemental oxygen; Z95.2 Presence of prosthetic heart valve; Z87.891 Personal history of nicotine dependence; Z68.33 Body mass index [BMI] 33.0-33.9, adult; Z80.52 Family history of malignant neoplasm of bladder; Z82.49 Family history of ischemic heart disease and other diseases of the circulatory system; Z83.3 Family history of diabetes mellitus
CPT/HCPCS: 36415; 71045; 71046; 80048; 80053; 81001; 82272; 82607; 82668; 82728; 82746; 82784; 83540; 83550; 83605; 83615; 83735; 83880; 83883; 84100; 84145; 84165; 85025; 85384; 85610; 85730; 86038; 86334; 86431; 86850; 86900; 86901; 86920; 87040; 87205; 87502; 93005; 93306; 94640; 94760; 96360; 99291

== ENCOUNTER → 2019-04-03 | Outpatient (CLI) | payer MEDICARE ==
--- NOTE | 2019-04-10 13:13 | P.ARTDOP ---
Arterial Doppler LOWER EXTREMITY ARTERIAL DOPPLER: DATE OF SERVICE: 04/03/2019 Reason for study: Follow-up post vascular stents. Doppler waveforms: Multiphasic bilaterally throughout.. Pulse volume recording: Digital readings are monophasic. Pressure gradients: Below the knee on the right. Above the knee and across the knee on the left. Ankle-brachial indices: 0.88 on the right and 0.55 on the left. Toe pressures: 46 on the right, 19 on the left Impression: Suggests at least moderate bilateral fem-pop disease. Clinical correlation recommended..
== END | disposition home or self-care (01) ==
LOC: RADUSWWP 13:34
PROVIDERS: ATTEND Podiatrist
DX: L97.522 Non-pressure chronic ulcer of other part of left foot with fat layer exposed (principal); E11.42 Type 2 diabetes mellitus with diabetic polyneuropathy; I13.0 Hypertensive heart and chronic kidney disease with heart failure and stage 1 through stage 4 chronic kidney disease, or unspecified chronic kidney disease; J44.9 Chronic obstructive pulmonary disease, unspecified; L97.322 Non-pressure chronic ulcer of left ankle with fat layer exposed; L97.822 Non-pressure chronic ulcer of other part of left lower leg with fat layer exposed; N18.9 Chronic kidney disease, unspecified; E11.22 Type 2 diabetes mellitus with diabetic chronic kidney disease
CPT/HCPCS: 93923

== ENCOUNTER 2019-04-22 06:52 | Day surgery (SDC) | payer MEDICARE ==
[2019-04-17 09:03] VITALS: BMI 32.8
--- NOTE | 2019-04-21 15:26 | HP ---
HISTORY AND PHYSICAL This is a 73 gentleman who came to the Wound Clinic. He has been seeing Dr. Talavera for chronic wound left lower extremity involving the dorsal aspect of the foot and left lower extremity with severe peripheral vascular disease. I was consulted for further evaluation. The patient has been scheduled for left leg angiogram. MEDICAL HISTORY: History of congestive heart failure, hypertension, diabetes mellitus, peripheral neuropathy, chronic kidney disease, COPD with sleep apnea, pulmonary hypertension, status post mitral valve repair October 31. PHYSICAL EXAMINATION: Patient was seen. NECK: Supple. Chest has crackles, bilateral. ABDOMEN: Soft. Femorals are 2+. The patient has a chronic wound on the dorsal aspect of the left foot with superficial ulcer of the left lower extremity and under care of the [facility]. PLAN: Left leg angiogram. Risks and complications of bleeding, infection, thrombosis has been discussed. MMODL / IJN: [id number] /
[~2019-04-22 06:52] MED LIST changes: +ALPRAZolam 0.25 MG TAB PO PRN; +ALPRAZolam 0.5 MG TAB PO PRN; -HEPARIN SODIUM 1,000 UN/ML (10ML VL) ONE; -LIDOCAINE 1% INJ 10MG/ML (20 ML MDV) ONE; +SODIUM CHLORIDE 0.9% 1,000 ML in EMPTY BAG 1 BAG IV ONE; -VERAPAMIL 2.5 MG/ML 2 ML AMP ONE; +ZOLPIDEM 5 MG TAB PO PRN
[2019-04-22] MEDS ORDERED: ASPIRIN 325 MG TAB PO ONE (07:00)
[2019-04-22 07:35] LABS: Glucose,Whole Blood 255 mg/dL (75-99)
[2019-04-22] MEDS ORDERED: INSULIN ASPART (NovoLOG) 100 UNIT/ML VIAL SQ ONE ×2 (07:35→07:38)
[2019-04-22 07:38] VITALS: RESP 18
[2019-04-22] MEDS ORDERED: HYDROmorphone 1 MG/ML 1 ML SYRINGE IVP STA (08:58)
[2019-04-22] MEDS ORDERED: HYDROmorphone 1 MG/ML 1 ML SYRINGE ONE (09:00)
[2019-04-22] MEDS ORDERED: MIDAZOLAM 2 MG/2 ML VIAL IV ONE (11:15)
[2019-04-22] MEDS ORDERED: fentaNYL (PF) 50 MCG/ML 2 ML AMP IV ONE (11:15)
[2019-04-22] MEDS ORDERED: LIDOCAINE 1% INJ 10MG/ML (20 ML MDV) SQ ONE (11:17)
[2019-04-22] MEDS ORDERED: IOPAMIDOL-250 100ML BTL INTRAARTER ONE (11:33)
[2019-04-22 12:22] LABS: Glucose,Whole Blood 125 mg/dL (75-99)
--- NOTE | 2019-04-22 12:56 | IR ---
EXAMINATION TYPE: IR angio lower extremity LT DATE OF EXAM: 04/22/2019 CLINICAL HISTORY: Left leg pain. TECHNIQUE: Fluoroscopy. COMPARISON: None. FINDINGS: Fluoroscopic guidance was provided during left lower extremity angiogram procedure perform ed by Dr. Suazo. A total of 84 seconds of fluoroscopic time was utilized during the procedure and 5 cine runs are acquired. Images were acquired focus on left lower extremity after left groin vascula r access. Please refer to procedure note for further details as I was not present nor performed proc edure IMPRESSION: As Above.
--- NOTE | 2019-04-22 13:17 | AN ---
ANGIOGRAPHY REPORT PREOPERATIVE DIAGNOSIS: Nonhealing wound to the left lower leg. POSTOPERATIVE DIAGNOSIS: Nonhealing wound to the left lower leg. PROCEDURE: Left angiogram. PROCEDURE: This patient has a chronic wound left lower extremity and under the care of wound center. The patient was brought to the roofing laborer. The left groin was prepped and draped in usual sterile manner, ultrasound-guided with IV sedation. Left common femoral artery was punctured and micropuncture guidewire was passed and 4-[place] dilator advanced on top of the guidewire. After that, we did the left leg angiogram and found to have a left common iliac and external iliac was found to be patent. Left femoral vein and profunda vein was found to be patent. Superficial femoral artery, left superficial femoral artery was found to be patent. Popliteal artery, left popliteal was patent. vessel, there was a short segment of anterior tibial was noted then distally was not visualized. Posterior tibial is occluded. Peroneal is open all the way down to the ankle and the post tibial reconstituted at the ankle fills by some collaterals. IMPRESSION: Left anterior tibial short segment occluded distally and posterior reconstituted at the ankle and peroneal was patent. The catheter was removed. Pressure was held. PLAN: Patient going home today with followup in the wound clinic next week. Continue with home medication. The patient will be need some IV fluid hydration for 6 hours, bedrest for 6 hours, then patient can go home. Follow up in the wound clinic in one week. MMODL / IJN: [id number] /
[2019-04-22] MEDS ORDERED: ALBUTEROL NEBULIZED 2.5 MG/3 ML INHALATION PRN (13:33)
[2019-04-22] MEDS ORDERED: MAGNESIUM HYDROXIDE 2,400 MG/10 ML CUP PO PRN (13:33)
[2019-04-22] MEDS: ACETAMINOPHEN TAB 325 MG TAB PO PRN ×2 (14:06→17:08)
[2019-04-22] MEDS ORDERED: FUROSEMIDE 80 MG TAB PO SCH (16:00)
[2019-04-22 16:50] LABS: Glucose,Whole Blood 234 mg/dL (75-99)
[2019-04-22 16:58] VITALS: BP 138/76; PULSE 69; TEMP 98.3
[2019-04-22] MEDS ORDERED: MULTIVITAMINS, THERA 1 EACH TAB PO SCH (17:00)
[2019-04-22] MEDS ORDERED: CHOLECALCIFEROL 1,000 UNIT TAB PO SCH (17:00)
[2019-04-22] MEDS ORDERED: ZINC SULFATE 220 MG CAP PO SCH (17:00)
[2019-04-22] MEDS ORDERED: ASPIRIN 81 MG PO SCH (17:00)
[2019-04-22] MEDS ORDERED: INSULIN ASPART (NovoLOG) 100 UNIT/ML VIAL SQ SCH (17:30)
[2019-04-22] MEDS ORDERED: GABAPENTIN 100 MG CAP PO SCH (21:00)
[2019-04-22] MEDS ORDERED: ATORVASTATIN 40 MG TAB PO SCH (21:00)
[2019-04-22] MEDS ORDERED: SENNOSIDES-DOCUSATE SODIUM 1 EACH TAB PO SCH (21:00)
[2019-04-22] MEDS ORDERED: ESCITALOPRAM 10 MG TAB PO SCH (21:00)
[2019-04-22] MEDS ORDERED: hydrALAZINE HCL 25 MG TAB PO SCH (21:00)
[2019-04-22] MEDS ORDERED: TAMSULOSIN 0.4 MG CAP.ER.24H PO SCH (21:00)
[2019-04-22] MEDS ORDERED: MAGNESIUM OXIDE 400 MG TAB PO SCH (21:00)
[2019-04-22] MEDS ORDERED: INSULIN DETEMIR (LEVEMIR) 100 UNIT/ML SYR SQ SCH (21:00)
[2019-04-23] MEDS ORDERED: PANTOPRAZOLE 40 MG TABLET PO SCH (07:30)
[2019-04-23] MEDS ORDERED: METOPROLOL TARTRATE 50 MG TAB PO SCH (09:00)
[2019-04-23] MEDS ORDERED: FERROUS SULFATE 325 MG TAB PO SCH (09:00)
[2019-04-23] MEDS ORDERED: SPIRONOLACTONE 25 MG TAB PO SCH (09:00)
[2019-04-23] MEDS ORDERED: CLOPIDOGREL 75 MG TAB PO SCH (09:00)
== END 2019-04-22 18:11 | disposition home or self-care (01) ==
LOC: CATHCVL 06:52 → 1SOBS 11:43 → CATHCVL 18:11
PROVIDERS: ATTEND Surgery Vascular Surgery
DX: I70.248 Atherosclerosis of native arteries of left leg with ulceration of other part of lower leg (principal); L97.829 Non-pressure chronic ulcer of other part of left lower leg with unspecified severity; I70.245 Atherosclerosis of native arteries of left leg with ulceration of other part of foot; L97.529 Non-pressure chronic ulcer of other part of left foot with unspecified severity; I13.0 Hypertensive heart and chronic kidney disease with heart failure and stage 1 through stage 4 chronic kidney disease, or unspecified chronic kidney disease; E11.22 Type 2 diabetes mellitus with diabetic chronic kidney disease; I50.9 Heart failure, unspecified; N18.9 Chronic kidney disease, unspecified; E11.42 Type 2 diabetes mellitus with diabetic polyneuropathy; J44.9 Chronic obstructive pulmonary disease, unspecified; G47.30 Sleep apnea, unspecified; I27.20 Pulmonary hypertension, unspecified; Z98.890 Other specified postprocedural states
CPT/HCPCS: 75710; 76937; C1894; C1769 ×3; J2250; J2001; J3010; J1170; Q9966

== ENCOUNTER 2019-05-07 12:29 | Inpatient (IN) | payer MEDICARE ==
[2019-05-07] MEDS ORDERED: SODIUM CHLORIDE 0.9% 1,000 ML IV STA ×2 (13:15)
[2019-05-07] MEDS ORDERED: SODIUM BICARB 8.4% 50 ML SYR (1 MEQ/ML) IV STA (13:15)
[2019-05-07] MEDS ORDERED: ALBUTEROL NEB (CONC) 2.5 MG/0.5 ML INHALATION STA (13:18)
[2019-05-07] MEDS ORDERED: DEXTROSE 50% SYRINGE 50 ML IVP STA (13:18)
[2019-05-07] MEDS ORDERED: INSULIN REGULAR 100 UNIT/ML VIAL IV ONE (13:18)
[2019-05-07] MEDS ORDERED: CALCIUM GLUCONATE 1 GM in SODIUM CHLORIDE 0.9% 100 ML IVPB ONE (13:23)
[2019-05-07] MEDS ORDERED: SODIUM POLYSTYRENE SULFONATE 15 GM/60 ML BOTTLE PO ONE (13:25)
--- NOTE | 2019-05-07 13:29 | ED ---
General Adult HPI - General Chief complaint: Recheck/Abnormal Lab/Rx Stated complaint: High Potassium Time Seen by Provider: 05/07/19 12:57 Source: patient, RN notes reviewed Mode of arrival: ambulatory Limitations: no limitations - History of Present Illness Initial comments: Patient is a pleasant 74 male presenting to the emergency Department with justice luther for hyperkalemia. Patient has been having diarrhea for the past several days. Patient has had increased fatigue. Decreased oral intake, minimal vomiting. No abdominal pain. Patient does have history of some previous kidney problems. Patient came in for Procrit shot and had routine lab work done. Potassium was found to be 7.3 and patient was advised come to the emergency department. - Related Data Home Medications Medication Instructions Recorded Confirmed Cholecalciferol [Vitamin D3 (25 2,000 unit PO DAILY@1700 01/04/16 05/07/19 Mcg = 1000 Iu)] Ferrous Sulfate [Iron (65 MG 325 mg PO DAILY 01/04/16 05/07/19 Elemental)] L.acidoph,Paracasei, B.lactis 1 cap PO DAILY@1700 01/04/16 05/07/19 [Probiotic] Multivitamins, Thera [Multivitamin 1 tab PO DAILY@1700 01/09/17 05/07/19 (formulary)] Zinc 50 mg PO DAILY@1700 07/17/18 05/07/19 Aspirin 81 mg PO DAILY@0 11/29/18 05/07/19 Magnesium Hydroxide [Milk of 2,400 mg PO DAILY PRN 11/29/18 05/07/19 Magnesia] Metoprolol Tartrate [Lopressor] 50 mg PO DAILY 11/29/18 05/07/19 Acetaminophen Tab [Tylenol] 650 mg PO Q4H PRN 12/23/18 05/07/19 Clopidogrel [Plavix] 75 mg PO DAILY@0912/23/18 05/07/19 Darbepoetin Ruddy [Aranesp] 40 mcg SQ TU 12/23/18 05/07/19 Sennosides-Docusate Sodium 2 tab PO BID 12/23/18 05/07/19 [Senokot-S] Tamsulosin [Flomax] 0.4 mg PO HS 12/23/18 05/07/19 Collagenase [Santyl] 1 applic TOPICAL Q48H 04/17/19 05/07/19 INSULIN LISPRO (humaLOG) [humaLOG] 0 units SQ ACHS 04/17/19 05/07/19 Pantoprazole [Protonix] 40 mg PO DAILY 04/22/19 05/07/19 Previous Rx's Medication Instructions Recorded Albuterol Inhaler [Ventolin Hfa 1 - 2 puff INHALATION RT-Q6H PRN 11/11/18 Inhaler] #1 inhaler Atorvastatin [Lipitor] 40 mg PO HS tab 12/13/18 Escitalopram [Lexapro] 10 mg PO HS tab 12/13/18 Furosemide [Lasix] 80 mg PO BID@0900,1600 #60 tab 01/18/19 Insulin Detemir (Levemir) [Levemir] 12 unit SQ HS syr 01/18/19 Spironolactone [Aldactone] 25 mg PO DAILY #30 tab 01/18/19 hydrALAZINE HCL [Apresoline] 25 mg PO BID #60 tab 01/18/19 Gabapentin [Neurontin] 100 mg PO BID@0900,2100 #6 cap 01/23/19 Magnesium Oxide [Mag-Ox] 400 mg PO BID 30 Days #60 tab 01/23/19 Allergies Allergy/AdvReac Type Severity Reaction Status Date / Time No Known Allergies Allergy Verified 05/07/19 11:05 Review of Systems ROS Statement: Those systems with pertinent positive or pertinent negative responses have been documented in the HPI. ROS Other: All systems not noted in ROS Statement are negative. Constitutional: Denies: fever Eyes: Denies: eye pain ENT: Denies: ear pain Respiratory: Denies: cough Cardiovascular: Denies: chest pain Endocrine: Reports: fatigue Gastrointestinal: Reports: vomiting, diarrhea. Denies: abdominal pain Genitourinary: Denies: dysuria Musculoskeletal: Denies: back pain Skin: Denies: rash Neurological: Denies: headache Past Medical History Past Medical History: Atrial Fibrillation, Coronary Artery Disease (CAD), Heart Failure, COPD, Diabetes Mellitus, Eye Disorder, Hyperlipidemia, Hypertension, Osteoarthritis (OA), Renal Disease, Sleep Apnea/CPAP/BIPAP Additional Past Medical History / Comment(s): SOB w/exertion,CATARACTS, sleep apnea without home CPAP use, chronic wounds to feet, chronic anemia History of Any Multi-Drug Resistant Organisms: None Reported Past Surgical History: Adenoidectomy, Heart Catheterization, Heart Catheterization With Stent, Tonsillectomy Additional Past Surgical History / Comment(s): FAUSTINO,COLONOSCOPY, heart cath 09/11/18, heart catheterization 09/24/2018 with drug-eluting stent placed to the LAD mitral valve repair on 10/31/2018. Past Anesthesia/Blood Transfusion Reactions: No Reported Reaction Additional Past Anesthesia/Blood Transfusion Reaction / Comment(s): no hx blood transfusion Date of Last Stent Placement:: September 2018 Past Psychological History: No Psychological Hx Reported Smoking Status: Former smoker Past Alcohol Use History: Occasional Past Drug Use History: None Reported - Past Family History Father Family Medical History: Cancer, Diabetes Mellitus Additional Family Medical History / Comment(s): BLADDER CANCER Mother Family Medical History: Congestive Heart Failure (CHF) Additional Family Medical History / Comment(s): AT AGE 68 General Exam Limitations: no limitations General appearance: alert, in no apparent distress Head exam: Present: normocephalic Eye exam: Present: normal appearance, PERRL ENT exam: Present: mucous membranes dry Neck exam: Present: normal inspection Respiratory exam: Present: normal lung sounds bilaterally Cardiovascular Exam: Present: regular rate, normal rhythm GI/Abdominal exam: Present: soft. Absent: tenderness Extremities exam: Present: other (Lateral foot boots.) Neurological exam: Present: alert Psychiatric exam: Present: normal affect, normal mood Skin exam: Present: normal color Course Vital Signs 05/07/19 12:34 Temperature 97.5 F L Pulse Rate 60 Respiratory 18 Rate Blood Pressure 112/65 O2 Sat by Pulse 99 Oximetry EKG Findings - EKG Comments: EKG Findings:: Sinus rhythm at 64. For screening AV block with WI of 308. QRS 112. QT 452. QTC 466. Right axis. Normal QRS. Nonspecific ST-T. Medical Decision Making - Medical Decision Making Patient and family are aware of plan. Case was discussed in detail with Dr. Mace as well as Dr. Merrill, who will admit for Dr. Patel. Dr. Merrill did see the emergency department. Disposition Clinical Impression: MIGUEL ANGEL (acute kidney injury), Hyperkalemia Disposition: ADMITTED IP TO THIS HOSP Is patient prescribed a controlled substance at d/c from ED?: No Referrals: Jordan Patel III, MD [Primary Care Provider] - 1-2 days Decision Time: 13:29
[2019-05-07] MEDS ORDERED: NALOXONE 0.4 MG/ML 1 ML VIAL IV PRN (13:57)
[2019-05-07] MEDS ORDERED: ONDANSETRON 4 MG/2 ML VIAL IVP PRN (13:57)
[2019-05-07] MEDS ORDERED: ALBUTEROL NEBULIZED 2.5 MG/3 ML INHALATION STA (14:03)
[2019-05-07] MEDS ORDERED: ALBUTEROL NEBULIZED 2.5 MG/3 ML INHALATION PRN (15:28)
--- NOTE | 2019-05-07 15:50 | XR ---
EXAMINATION TYPE: XR chest 1V portable DATE OF EXAM: 05/07/2019 COMPARISON: 01/20/2019 HISTORY: Congestive heart failure. Shortness of breath. TECHNIQUE: Single frontal view of the chest is obtained. FINDINGS: There is no focal air space opacity, pleural effusion, or pneumothorax seen. The cardiac silhouette size is enlarged with post CABG change. Is stable calcified pleural plaque along the righ t upper lung. The osseous structures are intact. IMPRESSION: No acute process. Improved aeration the lungs in comparison to the prior. Stable cardiom egaly.
[2019-05-07] MEDS ORDERED: MORPHINE SULFATE 4 MG/ML SYRINGE IM STA (16:27)
[2019-05-07] MEDS: HYDROcodone/APAP 5-325MG 1 EACH TAB PO SCH (16:47)
[2019-05-07] MEDS ORDERED: NON FORMULARY DRUG (Zinc [Zinc] 50 MG) PO SCH (17:00)
--- NOTE | 2019-05-07 17:42 | HP ---
HISTORY AND PHYSICAL DATE OF SERVICE: 05/07/2019 CHIEF COMPLAINTS: Diarrhea and hyperkalemia. HISTORY OF PRESENT ILLNESS: This 74-year-old gentleman with a past medical history of multiple medical problems, including atrial fibrillation, CAD, history of CHF, COPD, diabetes mellitus, type 2, hypertension, DJD, being followed by Dr. Patel in the outpatient setting, also had bilateral weeping wounds also. The patient is slated to have a peripheral vascular procedure next week by Dr. Galindo. Currently the patient has also been having multiple episodes of diarrhea for the last 2 to 3 days. Family members were also affected previously. Patient is complaining of tiredness and weakness. Patient came to [facility] and was admitted for further evaluation and treatment. His sodium was found to be 129, potassium 7.3. Creatinine was 2.31. The baseline creatinine was fluctuating. Because of increasing difficulties and symptoms, the patient came to [facility] and the patient was admitted for further evaluation treatment. There is no history of any fever, rigor or chills. No history of headache, loss of consciousness, seizures. PAST MEDICAL HISTORY: History of atrial fibrillation, CAD, CHF, history of COPD, diabetes mellitus, type 2, hypertension, hyperlipidemia, history of DJD, history of sleep apnea, history of CAD, stent. HOME MEDICATIONS: Home medications prior to admission include: 1. Santyl 1 application daily. 2. Ventolin HFA 1-2 puffs q.6 p.r.n. 3. Zinc 50 mg p.o. daily. 4. Aldactone 25 mg p.o. daily. 5. [place] 1 tablet q.8 p.r.n. 6. Apresoline 25 mg p.o. b.i.d. 7. Multivitamins 1 p.o. daily. 8. Lopressor 50 mg p.o. b.i.d. 9. Magnesium oxide 400 mg p.o. b.i.d. 10.Milk of Magnesia 2.4 daily. 11.Probiotic 1 p.o. daily. 12.Levemir 12 units subcutaneously at bedtime. 13.Humalog before meals and at bedtime. 14.Neurontin 100 mg p.o. b.i.d. 15.Lasix 80 mg p.o. b.i.d. 16.Iron 325 mg p.o. daily. 17.Lexapro 10 mg at bedtime. 18.Plavix 75 mg p.o. daily. 19.Vitamin D3 2000 units. 20.Lipitor 40 mg at bedtime. 21.Aspirin 81 mg p.o. daily. ALLERGIES: NONE. FAMILY HISTORY: History of cancer, diabetes mellitus. Bladder cancer in the family. SOCIAL HISTORY: Previous history of smoking. No current smoking or alcohol intake. REVIEW OF SYSTEMS: ENT: Diminished hearing. Diminished vision. CARDIOVASCULAR SYSTEM: No angina, palpitations. RESPIRATORY SYSTEM: As mentioned earlier. GI: As mentioned earlier. : As mentioned earlier. NERVOUS SYSTEM: No numbness, weakness. ALLERGY/IMMUNOLOGY: No asthma, hayfever. MUSCULOSKELETAL: As mentioned earlier. HEMATOLOGY/ONCOLOGY: No history of anemia. ENDOCRINE: Diabetes mellitus. CONSTITUTIONAL: As mentioned earlier. DERMATOLOGY: As mentioned earlier. RHEUMATOLOGY: Negative. PSYCHIATRY: As mentioned earlier. PHYSICAL EXAMINATION: Patient alert and oriented x3. Pulse 60, blood pressure 112/65, respiration 18, temperature 97.5, pulse ox 99% on room air. HEENT: Conjunctivae pale. Oral mucosa moist. NECK: No jugular venous distention. No carotid bruit. No lymph node enlargement. CARDIOVASCULAR SYSTEM: S1, S2 muffled. No S3. No S4. RESPIRATORY SYSTEM: Breath sounds diminished at the bases. Scattered rhonchi and crackles. ABDOMEN: Soft, obese, non-tender. No mass palpable. LEGS: Bilateral leg edema and weeping present. NERVOUS SYSTEM: Higher functions as mentioned earlier. Moves all 4 limbs. No focal motor or sensory deficit. LYMPHATICS: No lymph node palpable in neck, axillae or groin. SKIN: As mentioned earlier. JOINTS: No active deforming arthropathy. LABS: WBC 11.7, hemoglobin 7.2. Sodium 129, potassium 7.3. Other labs are noted. ASSESSMENT: 1. Abdominal discomfort, diarrhea; possible acute infective gastroenteritis with severe dehydration. 2. Acute renal failure, possibly acute prerenal renal failure with acute tubular necrosis. 3. Severe hyperkalemia secondary to renal failure. 4. Chronic kidney disease, stage III baseline. 5. Hyponatremia. 6. Anemia, multifactorial. 7. Increased white count, possibly reactive. 8. History of atrial fibrillation, chronic. 9. History of coronary artery disease. 10.History of congestive heart failure with chronic diastolic dysfunction. 11.History of chronic obstructive pulmonary disease. 12.Diabetes mellitus, type 2. 13.Hypertension. 14.Hyperlipidemia. 15.History of degenerative joint disease. 16.History of sleep apnea. 17.History of CPAP. 18.History of coronary artery disease, stent. 19.Remote history of nicotine dependence. 20.Obesity with body mass index of 32.8. 21.Severe mitral regurgitation and severely calcified mitral anulus, status post repair in October 2018. 22.Bilateral lower extremity cellulitis with peripheral artery disease. 23.Diabetic peripheral neuropathy. RECOMMENDATIONS AND DISCUSSION: In this 74-year-old gentleman who presented with multiple complex medical issues, we will monitor the patient closely, continue the current medications, continue symptomatic treatment. We will gently hydrate the patient. Otherwise I would recommend insulin/glucose regimen. Nephrology consultation. Avoid nephrotoxic medications. Stop Aldactone. Medication reconciliation done. Otherwise, monitor blood pressure closely. Resume the rest of the medications. Prognosis is guarded because of multiple complex medical issues, which I discussed at length with the patient and multiple members of his family, including his and daughter at the bedside. Further recommendations to follow. Old charts were reviewed. A copy of this dictation is being forwarded to Dr. Patel, who is the primary physician. MMODL / IJN: [id number] /
[2019-05-07 20:14] LABS: Glucose,Whole Blood 240 mg/dL (75-99)
[2019-05-07] MEDS: INSULIN ASPART (NovoLOG) 100 UNIT/ML VIAL SQ SCH ×2 (20:16→21:55)
[2019-05-07] MEDS: CHOLECALCIFEROL 1,000 UNIT TAB PO SCH (20:27)
[2019-05-07] MEDS: MULTIVITAMINS, THERA 1 EACH TAB PO SCH (20:27)
[2019-05-07] MEDS: SODIUM CHLORIDE 0.9% 1,000 ML IV SCH (20:28)
[2019-05-07] MEDS: ESCITALOPRAM 10 MG TAB PO SCH (20:29)
[2019-05-07] MEDS: ATORVASTATIN 40 MG TAB PO SCH (20:30)
[2019-05-07] MEDS: INSULIN DETEMIR (LEVEMIR) 100 UNIT/ML SYR SQ SCH (21:57)
[2019-05-07] MEDS: hydrALAZINE HCL 25 MG TAB PO SCH (21:58)
[2019-05-07] MEDS: METOPROLOL TARTRATE 50 MG TAB PO SCH (21:59)
[2019-05-07 22:06] LABS: Glucose,Whole Blood 224 mg/dL (75-99)
[2019-05-07] MEDS: GABAPENTIN 100 MG CAP PO SCH (23:36)
[2019-05-07] MEDS: PANTOPRAZOLE 40 MG/10 ML VIAL IV SCH (23:36)
[2019-05-08] MEDS: HYDROcodone/APAP 5-325MG 1 EACH TAB PO SCH ×4 (00:01→23:02)
[2019-05-08] MEDS: SODIUM CHLORIDE 0.9% 1,000 ML IV SCH ×4 (06:26→21:33)
[2019-05-08 07:06] LABS: Albumin 3.3 g/dL (3.5-5.0); Calcium 8.7 mg/dL (8.4-10.2); Magnesium 3.2 mg/dL (1.6-2.3); Phosphorus 7.3 mg/dL (2.5-4.5); Potassium 5.9 mmol/L (3.5-5.1); Total Bilirubin 0.6 mg/dL (0.2-1.3)
[2019-05-08 08:08] LABS: Anisocytosis Slight; Basophils # (A) 0.1 k/uL (0-0.2); Basophils % (A) 1 %; Eosinophils # (A) 0.1 k/uL (0-0.7); Eosinophils % (A) 1 %; Lymphocytes # (A) 0.6 k/uL (1.0-4.8); Lymphocytes % (A) 6 %; MCH 30.9 pg (25.0-35.0); MCHC 32.3 g/dL (31.0-37.0); MCV 95.7 fL (80.0-100.0); Mean Platelet Volume 7.8; Monocytes # (A) 0.8 k/uL (0-1.0); Monocytes % (A) 8 %; Neutrophils # (A) 8.4 k/uL (1.3-7.7); Neutrophils % (A) 83 %; Platelet Count 268 k/uL (150-450); RBC 1.98 m/uL (4.30-5.90); RDW 17.1 % (11.5-15.5); WBC 10.1 k/uL (3.8-10.6)
[2019-05-08 08:10] LABS: HGB 6.1 gm/dL (13.0-17.5)
[2019-05-08] MEDS ORDERED: INSULIN REGULAR 100 UNIT/ML VIAL IV ONE ×2 (08:52→18:42)
[2019-05-08] MEDS ORDERED: DEXTROSE 50% SYRINGE 50 ML IVP STA (08:52)
[2019-05-08] MEDS ORDERED: PANTOPRAZOLE 40 MG/10 ML VIAL IV SCH (09:00)
[2019-05-08] MEDS: hydrALAZINE HCL 25 MG TAB PO SCH ×2 (09:07→21:43)
[2019-05-08] MEDS: METOPROLOL TARTRATE 50 MG TAB PO SCH ×2 (09:08→21:43)
[2019-05-08] MEDS: CLOPIDOGREL 75 MG TAB PO SCH (09:08)
[2019-05-08] MEDS: PANTOPRAZOLE 40 MG/10 ML VIAL IV SCH ×2 (09:08→21:30)
[2019-05-08 09:16] LABS: Anisocytosis Slight; Hypochromasia Slight; MCH 30.1 pg (25.0-35.0); MCHC 31.3 g/dL (31.0-37.0); Macrocytosis Slight; Mean Platelet Volume 8.1; Platelet Count 255 k/uL (150-450); RBC 1.93 m/uL (4.30-5.90); RDW 17.4 % (11.5-15.5); WBC 10.9 k/uL (3.8-10.6)
[2019-05-08 09:19] LABS: HGB 5.8 gm/dL (13.0-17.5)
[2019-05-08 09:20] LABS: HCT 18.5 % (39.0-53.0)
[2019-05-08] MEDS: GABAPENTIN 100 MG CAP PO SCH ×2 (09:31→21:43)
[2019-05-08] MEDS: INSULIN ASPART (NovoLOG) 100 UNIT/ML VIAL SQ SCH ×4 (10:43→21:43)
[2019-05-08 13:03] LABS: Glucose,Whole Blood 345 mg/dL (75-99)
[2019-05-08] MEDS: HYDROmorphone 0.5 MG/0.5 ML SYRINGE IVP PRN (16:59)
[2019-05-08 17:34] LABS: Glucose,Whole Blood 128 mg/dL (75-99)
[2019-05-08] MEDS: CHOLECALCIFEROL 1,000 UNIT TAB PO SCH (17:39)
[2019-05-08] MEDS: MULTIVITAMINS, THERA 1 EACH TAB PO SCH (17:39)
[2019-05-08] MEDS: COLLAGENASE 250 UNIT/GM OINTMENT 30 GM TUBE TOPICAL SCH (17:39)
[2019-05-08 17:42] LABS: Calcium 8.7 mg/dL (8.4-10.2)
[2019-05-08 17:52] LABS: Potassium 6.3 mmol/L (3.5-5.1)
--- NOTE | 2019-05-08 17:59 | PN ---
PROGRESS NOTE DATE OF SERVICE: 05/08/2019 This 74-year-old gentleman who was admitted with diarrhea and hyperkalemia also had renal failure. The patient was also found to have significant anemia today. The potassium improved to 5.9. Creatinine is still elevated at 2.06. Multiple consultants are following the patient closely. The hemoglobin has dropped to 5.8. One unit of transfusion is being arranged. No chest pain. No palpitations. No fever. Blood sugar is elevated. Patient is complaining of diffuse aches and pains. Past medical history reviewed. REVIEW OF SYSTEMS: CARDIOVASCULAR SYSTEM: No angina, palpitations. RESPIRATORY SYSTEM: As mentioned earlier. GI: As mentioned earlier. : No dysuria or retention. NERVOUS SYSTEM: No numbness, weakness. CURRENT MEDICATIONS: Reviewed. They include: 1. [place] 5 mg q.8 p.r.n. 2. Ventolin 2.5 q.6 p.r.n. 3. Lipitor 40 mg at bedtime. 4. Vitamin D3. 5. Plavix 75 mg p.o. daily. 6. Santyl 1 application daily p.r.n. 7. Lexapro 10 mg at bedtime. 8. Neurontin 100 mg p.o. b.i.d. 9. Hydralazine 25 mg p.o. b.i.d. 10.Dilaudid. 11.Levemir 12 units subcutaneously at bedtime. 12.Lopressor 50 mg p.o. b.i.d. 13.Multivitamin 1 p.o. daily. 14.Narcan 0.2 q.2 p.r.n. 15.Protonix 40 mg IV b.i.d. PHYSICAL EXAMINATION: Patient is alert and oriented x3. Pulse 71, blood pressure 116/56, respirations 16, temperature 98.2, pulse ox 98% on 2 L. HEENT: Conjunctivae pale. Oral mucosa pale. NECK: No jugular venous distention. No carotid bruit. No lymph node enlargement. CARDIOVASCULAR SYSTEM: S1, S2 muffled. RESPIRATORY SYSTEM: Breath sounds diminished at the bases. A few scattered rhonchi. ABDOMEN: Soft. Minimally obese. Mild diffuse discomfort. No mass palpable. LEGS: No edema. No swelling. NERVOUS SYSTEM: Higher functions as mentioned earlier. Moves all 4 limbs. No focal motor or sensory deficit. LYMPHATICS: No lymph node palpable in neck, axillae or groin. SKIN: No ulcer, rash, bleeding. JOINTS: No active deforming arthropathy. LABS: WBC 10.2, hemoglobin 6.1 and 5.8, sodium 131, potassium 5.9, creatinine 2.06, glucose 345, albumin 3.3. ASSESSMENT: 1. Abdominal discomfort and diarrhea with possible acute infective gastroenteritis with severe dehydration. 2. Anemia; rule out acute blood-loss anemia. 3. Acute renal failure with possibly acute prerenal factors, acute tubular necrosis. 4. Severe hyperkalemia secondary to renal failure. 5. Chronic kidney disease, stage III baseline. 6. Hyponatremia. 7. Increased white count, possibly reactive. 8. History of atrial fibrillation, chronic. 9. History of coronary artery disease. 10.History of congestive heart failure with chronic diastolic dysfunction. 11.History of chronic obstructive pulmonary disease. 12.Diabetes mellitus, type 2. 13.Hypertension. 14.Hyperlipidemia. 15.History of degenerative joint disease. 16.History of sleep apnea. 17.History of CPAP. 18.History of coronary artery disease, stent. 19.Remote history of nicotine dependence. 20.Obesity with body mass index of 32.8. 21.Severe mitral regurgitation and severely calcified mitral anulus, status post repair in October 2018. 22.Bilateral lower extremity cellulitis with peripheral artery disease. 23.Diabetic peripheral neuropathy. RECOMMENDATIONS AND DISCUSSION: I recommend to continue current medications, continue with the monitoring, symptomatic treatment. Otherwise at this time I recommend two units of transfusion and Lasix. Monitor creatinine closely. I have recommended gastroenterology, infectious disease and nephrology consultations, wound care. Guarded prognosis because of the multiple complex medical issues. Further recommendations to follow. MMODL / IJN: [id number] /
[2019-05-08] MEDS ORDERED: DEXTROSE 10 % IN WATER 250 ML IV STA (18:38)
[2019-05-08] MEDS ORDERED: FUROSEMIDE 10 MG/ML 2 ML VIAL IV ONE (18:43)
[2019-05-08 20:46] LABS: Glucose,Whole Blood 126 mg/dL (75-99)
[2019-05-08] MEDS: ESCITALOPRAM 10 MG TAB PO SCH (21:43)
[2019-05-08] MEDS: ATORVASTATIN 40 MG TAB PO SCH (21:43)
[2019-05-08 21:49] LABS: Anisocytosis Slight; Basophils % (A) 1 %; Eosinophils # (A) 0.1 k/uL (0-0.7); Eosinophils % (A) 1 %; Hypochromasia Slight; Lymphocytes # (A) 0.5 k/uL (1.0-4.8); Lymphocytes % (A) 6 %; MCHC 33.4 g/dL (31.0-37.0); Mean Platelet Volume 6.9; Monocytes # (A) 0.7 k/uL (0-1.0); Monocytes % (A) 8 %; Neutrophils # (A) 7.1 k/uL (1.3-7.7); Neutrophils % (A) 82 %; Platelet Count 233 k/uL (150-450); Poikilocytosis Slight; RBC 2.04 m/uL (4.30-5.90); RDW 17.6 % (11.5-15.5); WBC 8.6 k/uL (3.8-10.6)
[2019-05-08 21:51] LABS: HGB 6.3 gm/dL (13.0-17.5)
[2019-05-08] MEDS: INSULIN DETEMIR (LEVEMIR) 100 UNIT/ML SYR SQ SCH (22:07)
--- NOTE | 2019-05-08 22:49 | CONS ---
CONSULTATION REASON FOR CONSULT: Renal failure. HISTORY OF PRESENT ILLNESS: The patient is a 74-year-old male with history of chronic kidney disease NKF stage 3, with baseline creatinine about 1.6-1.7 mg/dL secondary to nephrosclerosis and diabetic kidney disease. The patient was sent into the hospital with a significantly elevated BUN and creatinine and severe hyperkalemia with a potassium of 7.3 as outpatient. The patient was noted to have a hemoglobin of 6.1 g/dL. He is currently being transfused packed RBCs. Serum creatinine was 2.0 this morning and yesterday it was 2.3 mg/dL. The patient denies any obvious blood in his stools. There is no history of fever or chills. He did have some nausea and decreased oral intake. PAST MEDICAL HISTORY: Significant for CKD stage III, type 2 diabetes, chronic atrial fibrillation, coronary artery disease, history of COPD, CHF, hyperlipidemia, obstructive sleep apnea, chronic wounds to feet, chronic anemia. PAST SURGICAL HISTORY: Adenoidectomy, cardiac catheterization, coronary stent placement, tonsillectomy colonoscopy, FAUSTINO, cardiac cath, mitral valve repair on 10/31/2018. SOCIAL HISTORY: Patient is a former smoker. No history of drug abuse or alcohol abuse. MEDICATIONS: Medications prior to admission included vitamin D3, iron, multivitamins, probiotics, milk of magnesia, Lopressor Tylenol, Plavix, Aranesp, Flomax, insulin, Protonix, Lipitor, Lasix, Aldactone, hydralazine, Neurontin, magnesium. ALLERGIES: None. REVIEW OF SYSTEMS: As per HPI. Other systems negative. EXAMINATION: Patient is currently comfortable. He was seen this morning, not in any acute distress. Blood pressure was 102/52, heart rate of 70 per minute. Patient is afebrile. Examination of the heart S1, S2. Examination of the lungs, bilateral breath sounds are heard. Decreased breath sounds at the bases. Abdomen is soft, nontender. Examination of lower extremities shows trace edema bilaterally. GEOPHYSICS PROFESSOR exam grossly intact. LABS: Sodium 132, potassium 6.3, chloride 101, BUN 142, creatinine 1.87. Hemoglobin was 5.8 g/dL. ASSESSMENT: 1. Acute kidney injury, mostly prerenal associated with severe anemia, currently improved with creatinine down to 1.8 from 2.3 mg/dL. 2. Disproportionately elevated BUN secondary to most likely underlying gastrointestinal bleed. 3. Hyperkalemia associated with acute kidney injury and underlying gastrointestinal bleed. 4. Severe anemia. Rule out ongoing gastrointestinal bleed. Check stool for occult blood. Consult GI for possible scope. 5. Chronic kidney disease stage 3 secondary to diabetic nephropathy and nephrosclerosis. Baseline creatinine about 1.6 mg/dL. PLAN: Treat hyperkalemia with IV medications. Maintain low-potassium diet. Avoid excessive use of Kayexalate due to possible ongoing GI bleed. Continue IV fluids. Control blood sugars. Avoid hyperglycemia and repeat labs in about 4 hours. Thank you for this consultation. We will continue to follow the patient with you during his hospitalization. MMODL / IJN: [id number] /
[2019-05-08 23:12] LABS: Appearance,Urine Clear (Clear); Bilirubin,Urine Negative (Negative); Blood,Urine Negative (Negative); Color,Urine Yellow; Glucose,Urine (UA) Negative (Negative); Ketones,Urine Negative (Negative); Leukocyte Esterase,Urine Negative (Negative); Nitrite,Urine Negative (Negative); Protein,Urine Negative (Negative); Specific Gravity,Urine 1.012 (1.001-1.035); Urobilinogen,Urine <2.0 mg/dL (<2.0)
[2019-05-09] MEDS: SODIUM CHLORIDE 0.9% 1,000 ML IV SCH ×3 (05:56→21:16)
[2019-05-09 06:26] LABS: Glucose,Whole Blood 137 mg/dL (75-99)
[2019-05-09] MEDS: INSULIN ASPART (NovoLOG) 100 UNIT/ML VIAL SQ SCH ×4 (06:32→21:14)
[2019-05-09] MEDS: HYDROcodone/APAP 5-325MG 1 EACH TAB PO SCH ×3 (06:32→23:41)
[2019-05-09 07:43] LABS: Anisocytosis Slight; Basophils % (A) 0 %; Eosinophils # (A) 0.2 k/uL (0-0.7); Eosinophils % (A) 2 %; HCT 22.5 % (39.0-53.0); HGB 7.5 gm/dL (13.0-17.5); Hypochromasia Slight; Lymphocytes # (A) 0.5 k/uL (1.0-4.8); Lymphocytes % (A) 6 %; MCH 30.7 pg (25.0-35.0); MCHC 33.2 g/dL (31.0-37.0); MCV 92.5 fL (80.0-100.0); Mean Platelet Volume 7.3; Monocytes # (A) 0.6 k/uL (0-1.0); Monocytes % (A) 6 %; Neutrophils % (A) 84 %; Platelet Count 237 k/uL (150-450); Poikilocytosis Slight; RBC 2.43 m/uL (4.30-5.90); RDW 17.4 % (11.5-15.5); WBC 9.5 k/uL (3.8-10.6)
[2019-05-09 07:52] LABS: Calcium 8.5 mg/dL (8.4-10.2); Potassium 5.8 mmol/L (3.5-5.1)
[2019-05-09] MEDS: COLLAGENASE 250 UNIT/GM OINTMENT 30 GM TUBE TOPICAL SCH (08:12)
[2019-05-09] MEDS: CLOPIDOGREL 75 MG TAB PO SCH (08:12)
[2019-05-09] MEDS: PANTOPRAZOLE 40 MG/10 ML VIAL IV SCH ×2 (08:13→21:14)
[2019-05-09] MEDS: GABAPENTIN 100 MG CAP PO SCH ×2 (08:13→21:15)
[2019-05-09] MEDS: METOPROLOL TARTRATE 50 MG TAB PO SCH ×2 (08:13→21:14)
[2019-05-09] MEDS: hydrALAZINE HCL 25 MG TAB PO SCH ×2 (08:13→21:15)
[2019-05-09] MEDS ORDERED: INSULIN REGULAR 100 UNIT/ML VIAL IV ONE (10:28)
[2019-05-09] MEDS ORDERED: DEXTROSE 10 % IN WATER 250 ML IV STA (10:28)
--- NOTE | 2019-05-09 11:15 | XR ---
EXAMINATION TYPE: XR chest 1V DATE OF EXAM: 05/09/2019 HISTORY: Shortness of breath. COMPARISON: 05/07/2019 TECHNIQUE: Single view of the chest is submitted. FINDINGS: Demonstrated are scattered senescent parenchymal change. There is no evidence for focal infiltrate. The heart is stable. Mitral annular calcifications noted. Granuloma right upper lung field noted. Hilar and mediastinal structures are within normal limits. Degenerative changes are seen of the dorsal spine. IMPRESSION: 1. Chronic changes without evidence for acute pulmonary disease.
[2019-05-09 12:27] LABS: Glucose,Whole Blood 77 mg/dL (75-99)
--- NOTE | 2019-05-09 13:37 | P.CONS ---
History of Present Illness - Reason for Consult Consult date: 05/09/19 Wound care - History of Present Illness This is a 74-year-old gentleman who is known to the wound care center being seen on for nonhealing ulcerations to bilateral lower extremities. Patient is scheduled to have revascularization done next Monday by Dr. Carpio. Patient utilizes Santyl for dressing changes. Patient states that the pain to his bilateral lower extremities has improved. Review of Systems Review Of Systems: Constitutional: No fever, no chills, no night sweats. No weight change. No weakness, fatigue or lethargy. No daytime sleepiness. Integumentary:reports wounds, no lesions. No rash or pruritus. No unusual bruising. No change in hair or nails. Past Medical History Past Medical History: Atrial Fibrillation, Coronary Artery Disease (CAD), Heart Failure, COPD, Diabetes Mellitus, Eye Disorder, Hyperlipidemia, Hypertension, Osteoarthritis (OA), Renal Disease, Respiratory Disorder, Sleep Apnea/CPAP/BIPAP Additional Past Medical History / Comment(s): Chronic anemia/procrit, CKD stage III, pulmonary HTN, home oxygen ATC, decreased vision bilaterally since CABG [place], bilateral starting of cataracts, IDDM type II, neuropathy bilateral legs/feet, chronic bilateral leg/foot pain, severe PVD, past bilateral lower leg/foot wounds and cellulitis, current bilateral lower leg wounds, sepsis d/t leg wounds, mild gastritis, diverticular disease. History of Any Multi-Drug Resistant Organisms: None Reported Past Surgical History: Adenoidectomy, Cardiac Valve Replacement, Heart Catheterization, Heart Catheterization With Stent, Tonsillectomy Additional Past Surgical History / Comment(s): 04/22/19 L leg angiogram, FAUSTINO, mitral valve repair 10/31/18, EGD, colonoscopies. Past Anesthesia/Blood Transfusion Reactions: No Reported Reaction Additional Past Anesthesia/Blood Transfusion Reaction / Comm: Pt has received blood in past without reaction. Date of Last Stent Placement:: September 2018 Smoking Status: Former smoker - Past Family History Father Family Medical History: Cancer, Diabetes Mellitus Additional Family Medical History / Comment(s): BLADDER CANCER Mother Family Medical History: Congestive Heart Failure (CHF) Additional Family Medical History / Comment(s): AT AGE 68 Medications and Allergies Home Medications Medication Instructions Recorded Confirmed Type Cholecalciferol [Vitamin D3 (25 2,000 unit PO DAILY@1700 01/04/16 05/07/19 History Mcg = 1000 Iu)] Ferrous Sulfate [Iron (65 MG 325 mg PO DAILY 01/04/16 05/07/19 History Elemental)] L.acidoph,Paracasei, B.lactis 1 cap PO DAILY@1700 01/04/16 05/07/19 History [Probiotic] Multivitamins, Thera [Multivitamin 1 tab PO DAILY@1700 01/09/17 05/07/19 History (formulary)] Zinc 50 mg PO DAILY@1700 07/17/18 05/07/19 History Albuterol Inhaler [Ventolin Hfa 1 - 2 puff INHALATION RT-Q6H PRN 11/11/18 05/07/19 Rx Inhaler] #1 inhaler Aspirin 81 mg PO DAILY@1700 11/29/18 05/07/19 History Magnesium Hydroxide [Milk of 2,400 mg PO DAILY PRN 11/29/18 05/07/19 History Magnesia] Metoprolol Tartrate [Lopressor] 50 mg PO BID 11/29/18 05/07/19 History Atorvastatin [Lipitor] 40 mg PO HS tab 12/13/18 05/07/19 Rx Escitalopram [Lexapro] 10 mg PO HS tab 12/13/18 05/07/19 Rx Clopidogrel [Plavix] 75 mg PO DAILY@0900 12/23/18 05/07/19 History Furosemide [Lasix] 80 mg PO BID@0900,1600 #60 tab 01/18/19 05/07/19 Rx Insulin Detemir (Levemir) [Levemir] 12 unit SQ HS syr 01/18/19 05/07/19 Rx Spironolactone [Aldactone] 25 mg PO DAILY #30 tab 01/18/19 05/07/19 Rx hydrALAZINE HCL [Apresoline] 25 mg PO BID #60 tab 01/18/19 05/07/19 Rx Gabapentin [Neurontin] 100 mg PO BID@0900,2100 #6 cap 01/23/19 05/07/19 Rx Magnesium Oxide [Mag-Ox] 400 mg PO BID 30 Days #60 tab 01/23/19 05/07/19 Rx Collagenase [Santyl] 1 applic TOPICAL DAILY 01/22/20 02/11/20 History INSULIN LISPRO (humaLOG) [humaLOG] See Protocol SQ ACHS 04/17/19 05/07/19 History Hydrocodone/Acetaminophen [[place] 1 tab PO Q8H 05/07/19 05/07/19 History 5-325] Allergies Allergy/AdvReac Type Severity Reaction Status Date / Time No Known Allergies Allergy Verified 05/07/19 11:05 Physical Exam Vitals: Vital Signs Temp Pulse Pulse Pulse Resp BP BP 05/09/19 11:22 98.5 F 61 18 101/57 05/09/19 08:50 18 05/09/19 08:00 96.9 F L 62 18 97/53 05/09/19 07:46 96.9 F L 62 18 97/53 05/09/19 04:05 18 05/09/19 04:00 98.1 F 66 18 102/58 05/09/19 02:42 98.1 F 66 18 102/58 05/09/19 00:05 99.0 F 63 18 90/53 05/09/19 00:00 97.7 F 68 18 95/54 05/08/19 23:35 99.2 F 63 16 86/53 05/08/19 23:25 99.3 F 59 L 16 100/58 05/08/19 20:00 98.5 F 68 18 110/55 05/08/19 16:22 98.3 F 64 16 148/60 05/08/19 16:00 98.3 F 64 16 148/60 05/08/19 13:41 98.1 F 71 16 116/56 05/08/19 13:11 98.2 F 70 16 106/53 05/08/19 13:01 98.3 F 70 16 121/57 Pulse Ox 05/09/19 11:22 99 05/09/19 08:50 05/09/19 08:00 96 05/09/19 07:46 96 05/09/19 04:05 97 05/09/19 04:00 83 L 05/09/19 02:42 97 05/09/19 00:05 95 05/09/19 00:00 94 L 05/08/19 23:35 96 05/08/19 23:25 96 05/08/19 20:00 97 05/08/19 16:22 98 05/08/19 16:00 98 05/08/19 13:41 98 05/08/19 13:11 99 05/08/19 13:01 97 Intake and Output 05/08/19 05/09/19 05/09/19 22:59 06:59 14:59 Intake Total 310 1660 Output Total 1400 150 Balance -1090 1660 -150 Intake: Intake, IV Titration 1040 Amount Sodium Chloride 0.9% 1, 1040 000 ml @ 130 mls/hr IV . [id number] [facility] Rx#:[id number] Blood Product 310 620 Rc As-1 Unit 310 [id number] Rc As-1 Unit 310 [id number] Output: Urine 1400 150 Uretheral ([place]rell) 700 Other: Voiding Method Urinal Incontinent Weight 67 kg Physical exam: General Appearance: Alert, cooperative, no distress, appears stated age. Skin: Grade 2 diabetic foot ulcer of the left dorsal foot: Measuring approximately 2.5 x 2.2 x 0.3 cm fat layer exposed. No tunneling or undermining serous drainage noted. Wound margin is indistinct . Grade 2 diabetic foot ulcer left dorsal toe measures approximately 1.4 x 1.6 x 0.1 cm Limited to skin breakdown noted tunneling or undermining. Grade 2 diabetic foot ulcer left medial calcaneus measuring approximately 2 x 4.3 x 0.2 cm Limited to skin breakdown noted tunneling or undermining noted. Grade 2 diabetic ulcer of lower extremity venous leg ulcer location left lateral lower leg. Measuring 9.2 x 4.6 x 0.1 cm fatty layer exposed. No tunneling or undermining. Venous leg ulcer diabetic ulcer of lower extremity right medial lower leg measuring approximately 18.6 x 6.4 x 0.1 cm failure exposed. No undermining or tunneling noted. all other Skin color pale, texture, tugor decrease no rashes or lesions. Neurologic: Alert oriented x3 Results CBC & Chem 7: 05/09/19 07:08 05/09/19 07:08 Labs: Abnormal Lab Results - Last 24 Hours (Table) 05/08/19 05/08/19 05/08/19 Range/Units 08:59 13:01 17:17 RBC (4.30-5.90) m/uL Hgb (13.0-17.5) gm/dL Hct (39.0-53.0) % RDW (11.5-15.5) % Neutrophils # (1.3-7.7) k/uL Lymphocytes # (1.0-4.8) k/uL Sodium 132 L (137-145) mmol/L Potassium 6.3 H* (3.5-5.1) mmol/L BUN 142 H* (9-20) mg/dL Creatinine 1.87 H (0.66-1.25) mg/dL Glucose 111 H (74-99) mg/dL POC Glucose (mg/dL) 345 H (75-99) mg/dL Crossmatch See Detail 05/08/19 05/08/19 05/08/19 Range/Units 17:32 20:26 20:57 RBC 2.04 L (4.30-5.90) m/uL Hgb 6.3 L* (13.0-17.5) gm/dL Hct 19.0 L* (39.0-53.0) % RDW 17.6 H (11.5-15.5) % Neutrophils # (1.3-7.7) k/uL Lymphocytes # 0.5 L (1.0-4.8) k/uL Sodium (137-145) mmol/L Potassium (3.5-5.1) mmol/L BUN (9-20) mg/dL Creatinine (0.66-1.25) mg/dL Glucose (74-99) mg/dL POC Glucose (mg/dL) 128 H 126 H (75-99) mg/dL Crossmatch 05/08/19 05/09/19 05/09/19 Range/Units 20:57 06:12 07:08 RBC 2.43 L (4.30-5.90) m/uL Hgb 7.5 L (13.0-17.5) gm/dL Hct 22.5 L (39.0-53.0) % RDW 17.4 H (11.5-15.5) % Neutrophils # 8.0 H (1.3-7.7) k/uL Lymphocytes # 0.5 L (1.0-4.8) k/uL Sodium (137-145) mmol/L Potassium 6.0 H (3.5-5.1) mmol/L BUN (9-20) mg/dL Creatinine (0.66-1.25) mg/dL Glucose (74-99) mg/dL POC Glucose (mg/dL) 137 H (75-99) mg/dL Crossmatch 05/09/19 Range/Units 07:08 RBC (4.30-5.90) m/uL Hgb (13.0-17.5) gm/dL Hct (39.0-53.0) % RDW (11.5-15.5) % Neutrophils # (1.3-7.7) k/uL Lymphocytes # (1.0-4.8) k/uL Sodium 134 L (137-145) mmol/L Potassium 5.8 H (3.5-5.1) mmol/L BUN 133 H* (9-20) mg/dL Creatinine 2.01 H (0.66-1.25) mg/dL Glucose 114 H (74-99) mg/dL POC Glucose (mg/dL) (75-99) mg/dL Crossmatch Microbiology - Last 24 Hours (Table) 05/07/19 23:44 Gram Stain - Preliminary Ankle - Left Wound Culture - Preliminary Gram Neg Bacilli Assessment and Plan (1) Diabetic foot ulcer associated with type 2 diabetes mellitus, with fat layer exposed Current Visit: Yes Status: Acute Code(s): E11.621 - TYPE 2 DIABETES MELLITUS WITH FOOT ULCER; L97.502 - NON-PRS CHRONIC ULCER OTH PRT UNSP FOOT W FAT LAYER EXPOSED SNOMED Code(s): 6148929982427 (2) Chronic venous hypertension (idiopathic) with ulcer of bilateral lower extremity Current Visit: Yes Status: Acute Code(s): I87.313 - CHRONIC VENOUS HYPERTENSION W ULCER OF BILATERAL LOW EXTRM; L97.919 - NON-PRS CHRONIC ULC UNSP PRT OF R LOW LEG W UNSP SEVERITY; L97.929 - NON-PRS CHRONIC ULC UNSP PRT OF L LOW LEG W UNSP SEVERITY SNOMED Code(s): 941980753246924 (3) 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 Continue with weekly wound care visits. Next wound care appointment 05/17/2019 at 10:30. Continue with scheduled revascularization. Minimal weightbearing. Thank you kindly for the consultation. Any questions please contact the wound care center DNP note has been reviewed and discussed with Dr. Saleem and the impression and plan of care has been directed as dictated.
[2019-05-09] MEDS: HYDROmorphone 0.5 MG/0.5 ML SYRINGE IVP PRN ×2 (14:41→22:53)
--- NOTE | 2019-05-09 15:36 | PN ---
PROGRESS NOTE Patient is seen for followup for acute kidney injury and chronic kidney disease. He was admitted with severe anemia and disproportionately elevated BUN suggesting underlying GI bleed. No active bleeding is noted. Patient was maintained on IV fluids initially. He has started to eat and is tolerating oral intake. Labs summary. PHYSICAL EXAMINATION: On examination today, blood pressure was 101/57, heart rate 61 per minute, patient is afebrile. Examination of the heart S1, S2. Examination of the lungs, bilateral breath sounds are heard. Abdomen is soft, non-tender. Examination of the lower extremities shows trace edema. [employer] exam grossly intact. LABS: Show sodium of 134, potassium 5.8, chloride 103, BUN 133, serum creatinine 2.01 hemoglobin 7.5 g/dL. UA was completely benign. ASSESSMENT: 1. Acute kidney injury, prerenal associated with severe anemia and volume depletion, currently improved. 2. Disproportionately elevated BUN. Rule out gastrointestinal bleed. 3. Chronic kidney disease, NKF stage III, secondary to diabetic nephropathy and nephrosclerosis. Baseline creatinine about 1.6 mg/dL. 4. Hyperkalemia associated with acute kidney injury and most likely underlying gastrointestinal bleed. 5. Volume depletion. currently improved. PLAN: 1. Add Aranesp. 2. No evidence of iron deficiency. 3. Decrease IV fluids. 4. Continue to avoid nephrotoxic agents and repeat labs in a.m. MMODL / IJN: [id number] /
[2019-05-09 17:28] LABS: Glucose,Whole Blood 126 mg/dL (75-99)
[2019-05-09] MEDS: MULTIVITAMINS, THERA 1 EACH TAB PO SCH (17:30)
[2019-05-09] MEDS: CHOLECALCIFEROL 1,000 UNIT TAB PO SCH (17:34)
--- NOTE | 2019-05-09 18:12 | PN ---
PROGRESS NOTE DATE OF SERVICE: 05/09/2019. REASON FOR FOLLOWUP: Left foot wound and bilateral lower extremity venostasis ulcers. INTERVAL HISTORY: The patient is currently afebrile. Still complaining of pain to the leg wound areas, but no worsening compared to yesterday. He is breathing comfortably. Denies having any chest pain or cough. No abdominal pain and no diarrhea has been reported by the nursing staff. PHYSICAL EXAMINATION: Blood pressure 142/61 with a pulse of 55, temperature 98.4. He is 99% on 2 L nasal cannula. General description is an elderly male lying in bed in no distress. RESPIRATORY SYSTEM: Unlabored breathing. Clear to auscultation anteriorly. HEART: S1, S2. Regular rate and rhythm. ABDOMEN: Soft. No tenderness. Leg wounds are currently dressed up. No obvious drainage on the dressing. LABS: Hemoglobin 7.5, white count 9.5. BUN of 133, creatinine 2.01. Wound culture from the left foot is currently showing Gram-negative. DIAGNOSTIC IMPRESSION AND PLAN: Patient admitted to hospital with hyperkalemia in this patient who did have a chronic nonhealing wound to the left foot dorsum as well as multiple superficial wounds to the bilateral lower extremities after his cardiac surgery. Wounds were examined yesterday and did not have any evidence of any cellulitis. Positive culture is more likely representing colonization. Recommend local wound care to the left foot. Continue with Santyl on the leg wounds with Aquacel Silver dressing and Zi wrap. Questions and concerns were answered. MMODL / IJN: [id number] /
[2019-05-09 20:36] LABS: Glucose,Whole Blood 208 mg/dL (75-99)
[2019-05-09] MEDS: ESCITALOPRAM 10 MG TAB PO SCH (21:14)
[2019-05-09] MEDS: ATORVASTATIN 40 MG TAB PO SCH (21:14)
[2019-05-09] MEDS: INSULIN DETEMIR (LEVEMIR) 100 UNIT/ML SYR SQ SCH (21:15)
--- NOTE | 2019-05-09 23:10 | PN ---
PROGRESS NOTE DATE OF SERVICE: 05/09/2019 This 74-year-old gentleman who was admitted with abdominal discomfort and diarrhea, possible acute infective gastritis. Patient also had renal failure also which is rather persistent at this time. The patient also has hyperkalemia. The patient being closely monitored. Patient also had leg wound also. Dr. Galindo is planning surgery next week. The patient has chronic nonhealing wound to the left foot dorsum and multiple superficial wounds of bilateral lower extremities. No chest pain. No palpitations. PAST MEDICAL HISTORY: Reviewed. REVIEW OF SYSTEMS: CARDIOVASCULAR SYSTEM: No angina or palpitations. RESPIRATION: As mentioned earlier. GI as mentioned earlier. no dysuria. NERVOUS SYSTEMS: No numbness or weakness. MEDICATIONS: 1. [place] 5 mg p.r.n. 2. Ventolin 2.5 q.6h. 3. Lipitor 40 mg. 4. Vitamin D3. 5. Plavix 75 mg p.o. daily. 6. Santyl. 7. Lexapro 10 mg q.h.s. 8. Neurontin 100 mg p.o. b.i.d. 9. Apresoline 25 mg p.o. b.i.d. 10.Dilaudid p.r.n. 11.NovoLog scale. 12.Levemir 12 units subcu q.h.s. 13.Lopressor 50 mg p.o. b.i.d. 14.Multivitamins. 15.Narcan 0.2 q.2 p.r.n. 16.Zofran. 17.Protonix 40 mg IV b.i.d. PHYSICAL EXAMINATION: Patient is alert and oriented times three. Pulse 63, blood pressure 163/60, respiration 18, temperature 98.2. Pulse ox 100 percent on 1 L. HEENT: Conjunctivae normal. NECK: No JVD. CARDIOVASCULAR: S1, S2 muffled. RESPIRATORY SYSTEM: Breath sounds diminished at the bases. Bilateral scattered rhonchi and crackles. Expiratory wheezing also present. ABDOMEN: Soft, nontender. LEGS bilateral leg edema. Wound also present. NERVOUS SYSTEM: No focal deficits. LABS: WBC 9.2, hemoglobin 7.5, sodium 134, potassium 5.2. Creatinine is 2.01. The hemoglobin improved from 6.3-7.5 after transfusion. ASSESSMENT: 1. Abdominal discomfort and diarrhea possible acute infective gastroenteritis with severe dehydration present on admission. 2. Anemia possibly acute on chronic blood-loss anemia and multifactorial status post transfusion. 3. Acute renal failure possibly acute prerenal factors acute tubular necrosis. 4. Severe hyperkalemia secondary to renal failure. 5. Chronic kidney stage 3 baseline. 6. Hyponatremia. 7. Increased WBC possibly reactive. 8. History of atrial fibrillation, chronic. 9. History of coronary artery disease. 10.History of congestive heart failure with chronic diastolic dysfunction. 11.History of chronic obstructive pulmonary disease. 12.Diabetes type 2. 13.Hypertension. 14.Hyperlipidemia. 15.Gait dysfunction. 16.Peripheral vascular disease. 17.History of degenerative joint disease. 18.History of sleep apnea. 19.History of CPAP. 20.History of coronary artery disease, stent. 21.History of nicotine dependence. 22.Obesity with body mass index of 32.8. 23.Severe mitral regurgitation and severely calcified mitral anulus status post repair October 2018. 24.Bilateral lower extremity cellulitis with peripheral artery disease. 25.Diabetic peripheral neuropathy. 26.FULL CODE. RECOMMENDATIONS AND DISCUSSION: In this 74-year-old gentleman who presented with multiple complex medical issues as detailed above, at this time, we will continue to monitor. We will monitor the renal function closely. Otherwise hemoglobin is improved to 7.5 after transfusion. Continue the antibiotics. Monitor potassium closely. Potassium still elevated 5.8. Closely follow with Nephrology. Guarded prognosis. As mentioned earlier, Dr. Galindo is planning surgery next week. We will continue to monitor and advance diet. Further recommendations to follow. MMODL / IJN: [id number] /
[2019-05-10] MEDS: HYDROcodone/APAP 5-325MG 1 EACH TAB PO SCH ×2 (04:18→16:02)
[2019-05-10 06:07] LABS: Glucose,Whole Blood 181 mg/dL (75-99)
[2019-05-10] MEDS: INSULIN ASPART (NovoLOG) 100 UNIT/ML VIAL SQ SCH ×4 (06:13→21:53)
--- NOTE | 2019-05-10 06:21 | P.CONS ---
History of Present Illness - Reason for Consult Consult date: 05/09/19 Anemia Requesting physician: Reshma Merrill - Chief Complaint Diarrhea - History of Present Illness 74-year-old male with multiple medical comorbidities including atrial fibrillation, coronary artery disease, congestive heart failure, COPD, diabetes mellitus, hypertension and chronic nonhealing ulcers of the lower extremities who presented to 2 concerns over 2-3 days of loose bowel movements. Of note patient is somnolent at bedside today after receiving pain medications and history has been taken in conversation with the nursing staff, the patient and on review of the electronic medical record. Per reports patient had been having 2-3 days of loose bowel movements prior to presentation and was found to have dehydration and worsening kidney function on presentation. Currently bowel movements have improved however patient was found to be somewhat anemic on presentation to the hospital. On review of the records he has been anemic in the past. Patient denies any signs or symptoms of GI bleeding. He denies any hematemesis, melena, coffee-ground emesis or bright red blood per rectum. He has not had a bowel movement in the past few days. Patient believes he has a remote history of colonoscopy but is unable to give specific someone this was performed. He denies any associated abdominal pain. He does report occasional use of NSAID medications with Aleve taken infrequently. Hemoglobin currently 7.5 with total bilirubin 0.6, alkaline phosphatase 75, AST 33 and ALT 21. Review of Systems ROS unobtainable: due to mental status (Patient able to provide minimal history is due to somnolence after receiving narcotic medications.) Past Medical History Past Medical History: Atrial Fibrillation, Coronary Artery Disease (CAD), Heart Failure, COPD, Diabetes Mellitus, Eye Disorder, Hyperlipidemia, Hypertension, Osteoarthritis (OA), Renal Disease, Respiratory Disorder, Sleep Apnea/CPAP/BIPAP Additional Past Medical History / Comment(s): Chronic anemia/procrit, CKD stage III, pulmonary HTN, home oxygen ATC, decreased vision bilaterally since CABG surgery, bilateral starting of cataracts, IDDM type II, neuropathy bilateral legs/feet, chronic bilateral leg/foot pain, severe PVD, past bilateral lower leg/foot wounds and cellulitis, current bilateral lower leg wounds, sepsis d/t leg wounds, mild gastritis, diverticular disease. History of Any Multi-Drug Resistant Organisms: None Reported Past Surgical History: Adenoidectomy, Cardiac Valve Replacement, Heart Catheterization, Heart Catheterization With Stent, Tonsillectomy Additional Past Surgical History / Comment(s): 04/22/19 L leg angiogram, FAUSTINO, mitral valve repair 10/31/18, EGD, colonoscopies. Past Anesthesia/Blood Transfusion Reactions: No Reported Reaction Additional Past Anesthesia/Blood Transfusion Reaction / Comm: Pt has received blood in past without reaction. Date of Last Stent Placement:: September 2018 Smoking Status: Former smoker - Past Family History Father Family Medical History: Cancer, Diabetes Mellitus Additional Family Medical History / Comment(s): BLADDER CANCER Mother Family Medical History: Congestive Heart Failure (CHF) Additional Family Medical History / Comment(s): AT AGE 68 Medications and Allergies Home Medications Medication Instructions Recorded Confirmed Type Cholecalciferol [Vitamin D3 (25 2,000 unit PO DAILY@1700 01/04/16 05/07/19 History Mcg = 1000 Iu)] Ferrous Sulfate [Iron (65 MG 325 mg PO DAILY 01/04/16 05/07/19 History Elemental)] L.acidoph,Paracasei, B.lactis 1 cap PO DAILY@1700 01/04/16 05/07/19 History [Probiotic] Multivitamins, Thera [Multivitamin 1 tab PO DAILY@1700 01/09/17 05/07/19 History (formulary)] Zinc 50 mg PO DAILY@1700 07/17/18 05/07/19 History Albuterol Inhaler [Ventolin Hfa 1 - 2 puff INHALATION RT-Q6H PRN 11/11/18 05/07/19 Rx Inhaler] #1 inhaler Aspirin 81 mg PO DAILY@1700 11/29/18 05/07/19 History Magnesium Hydroxide [Milk of 2,400 mg PO DAILY PRN 11/29/18 05/07/19 History Magnesia] Metoprolol Tartrate [Lopressor] 50 mg PO BID 11/29/18 05/07/19 History Atorvastatin [Lipitor] 40 mg PO HS tab 12/13/18 05/07/19 Rx Escitalopram [Lexapro] 10 mg PO HS tab 12/13/18 05/07/19 Rx Clopidogrel [Plavix] 75 mg PO DAILY@0900 12/23/18 05/07/19 History Furosemide [Lasix] 80 mg PO BID@0900,1600 #60 tab 01/18/19 05/07/19 Rx Insulin Detemir (Levemir) [Levemir] 12 unit SQ HS syr 01/18/19 05/07/19 Rx Spironolactone [Aldactone] 25 mg PO DAILY #30 tab 01/18/19 05/07/19 Rx hydrALAZINE HCL [Apresoline] 25 mg PO BID #60 tab 01/18/19 05/07/19 Rx Gabapentin [Neurontin] 100 mg PO BID@0900,2100 #6 cap 01/23/19 05/07/19 Rx Magnesium Oxide [Mag-Ox] 400 mg PO BID 30 Days #60 tab 01/23/19 05/07/19 Rx Collagenase [Santyl] 1 applic TOPICAL DAILY 04/17/19 05/07/19 History INSULIN LISPRO (humaLOG) [humaLOG] See Protocol SQ ACHS 04/17/19 05/07/19 History Hydrocodone/Acetaminophen [[place] 1 tab PO Q8H 05/07/19 05/07/19 History 5-325] Allergies Allergy/AdvReac Type Severity Reaction Status Date / Time No Known Allergies Allergy Verified 05/07/19 11:05 Physical Exam Vitals: Vital Signs Temp Pulse Pulse Pulse Resp BP BP 05/09/19 11:22 98.5 F 61 18 101/57 05/09/19 08:50 18 05/09/19 08:00 96.9 F L 62 18 97/53 05/09/19 07:46 96.9 F L 62 18 97/53 05/09/19 04:05 18 05/09/19 04:00 98.1 F 66 18 102/58 05/09/19 02:42 98.1 F 66 18 102/58 05/09/19 00:05 99.0 F 63 18 90/53 05/09/19 00:00 97.7 F 68 18 95/54 05/08/19 23:35 99.2 F 63 16 86/53 05/08/19 23:25 99.3 F 59 L 16 100/58 05/08/19 20:00 98.5 F 68 18 110/55 05/08/19 16:22 98.3 F 64 16 148/60 05/08/19 16:00 98.3 F 64 16 148/60 Pulse Ox 05/09/19 11:22 99 05/09/19 08:50 02/13/20 08:00 96 05/09/19 07:46 96 05/09/19 04:05 97 05/09/19 04:00 83 L 05/09/19 02:42 97 05/09/19 00:05 95 05/09/19 00:00 94 L 05/08/19 23:35 96 05/08/19 23:25 96 05/08/19 20:00 97 05/08/19 16:22 98 05/08/19 16:00 98 Intake and Output 05/09/19 05/09/19 05/09/19 06:59 14:59 22:59 Intake Total 1660 Output Total 150 Balance 1660 -150 Intake: Intake, IV Titration 1040 Amount Sodium Chloride 0.9% 1, 1040 000 ml @ 130 mls/hr IV . [id number] [facility] Rx#:[id number] Blood Product 620 Rc As-1 Unit 310 [id number] Output: Urine 150 Other: Voiding Method Urinal Incontinent Weight 67 kg 67 kg On physical examination, patient appears comfortable in no apparent distress. HEAD: Normocephalic, atraumatic. EYES: No scleral icterus. No conjunctival injection. MOUTH: No lesions, tongue midline. NECK: Trachea midline, no gross abnormalities. CHEST: Decreased air entry in all lung horan. HEART: S1-S2 appreciated. ABDOMEN: Soft, obese. Bowel sounds are positive. No organomegaly. No guarding or rigidity. EXTREMITIES: +1 pedal edema, chronic lower extremity ulcerations with lower extremities currently wrapped. SKIN: No rashes, no jaundice. NEUROLOGIC: Alert and oriented to person and interactive. Results CBC & Chem 7: 05/09/19 07:08 05/09/19 07:08 Labs: Abnormal Lab Results - Last 24 Hours (Table) 05/08/19 05/08/19 05/08/19 Range/Units 08:59 17:17 17:32 RBC (4.30-5.90) m/uL Hgb (13.0-17.5) gm/dL Hct (39.0-53.0) % RDW (11.5-15.5) % Neutrophils # (1.3-7.7) k/uL Lymphocytes # (1.0-4.8) k/uL Sodium 132 L (137-145) mmol/L Potassium 6.3 H* (3.5-5.1) mmol/L BUN 142 H* (9-20) mg/dL Creatinine 1.87 H (0.66-1.25) mg/dL Glucose 111 H (74-99) mg/dL POC Glucose (mg/dL) 128 H (75-99) mg/dL Crossmatch See Detail 05/08/19 05/08/19 05/08/19 Range/Units 20:26 20:57 20:57 RBC 2.04 L (4.30-5.90) m/uL Hgb 6.3 L* (13.0-17.5) gm/dL Hct 19.0 L* (39.0-53.0) % RDW 17.6 H (11.5-15.5) % Neutrophils # (1.3-7.7) k/uL Lymphocytes # 0.5 L (1.0-4.8) k/uL Sodium (137-145) mmol/L Potassium 6.0 H (3.5-5.1) mmol/L BUN (9-20) mg/dL Creatinine (0.66-1.25) mg/dL Glucose (74-99) mg/dL POC Glucose (mg/dL) 126 H (75-99) mg/dL Crossmatch 05/09/19 05/09/19 05/09/19 Range/Units 06:12 07:08 07:08 RBC 2.43 L (4.30-5.90) m/uL Hgb 7.5 L (13.0-17.5) gm/dL Hct 22.5 L (39.0-53.0) % RDW 17.4 H (11.5-15.5) % Neutrophils # 8.0 H (1.3-7.7) k/uL Lymphocytes # 0.5 L (1.0-4.8) k/uL Sodium 134 L (137-145) mmol/L Potassium 5.8 H (3.5-5.1) mmol/L BUN 133 H* (9-20) mg/dL Creatinine 2.01 H (0.66-1.25) mg/dL Glucose 114 H (74-99) mg/dL POC Glucose (mg/dL) 137 H (75-99) mg/dL Crossmatch Microbiology - Last 24 Hours (Table) 05/07/19 23:44 Gram Stain - Preliminary Ankle - Left Wound Culture - Preliminary Gram Neg Bacilli Chest x-ray: report reviewed (Chronic changes on chest x-ray without evidence of acute pulmonary disease.) Assessment and Plan (1) Normocytic normochromic anemia Narrative/Plan: 74-year-old male with multiple medical comorbidities including chronic nonhealing lower extremity ulcers who presented to the hospital with complaints of worsening of his diarrhea over 2-3 days prior to admission. Currently not having diarrhea. Patient was also found to have a normocytic normochromic anemia on presentation. No signs or symptoms of GI bleeding. Patient has been noted to be anemic on prior admissions. Anemia is likely multifactorial in the setting of chronic disease, weeping of blood from chronic lower extremity ulcers, underlying kidney dysfunction, cannot rule out a component of GI bleed worsening anemia in the setting of occasional NSAID use. Current Visit: Yes Status: Acute Code(s): D64.9 - ANEMIA, UNSPECIFIED SNOMED Code(s): 56669912 Plan: Supportive care Okay for diet Nothing by mouth after midnight for possible endoscopic evaluation Continue to monitor CBC and transfuse as needed Continue to monitor for signs or symptoms of GI bleed Laboratory evaluation ordered for evaluation of anemia Discussion with the patient regarding upper endoscopy for evaluation of GI source of bleeding and if patient is amenable will proceed with EGD tomorrow with all of the risks, benefits and side effects explained at length Continue Protonix therapy Thank you for allowing us to participate in the care of the patient
[2019-05-10 07:15] LABS: Anisocytosis Slight; Basophils % (A) 0 %; Eosinophils # (A) 0.2 k/uL (0-0.7); Eosinophils % (A) 2 %; HCT 25.7 % (39.0-53.0); HGB 8.1 gm/dL (13.0-17.5); Hypochromasia Slight; Lymphocytes # (A) 0.4 k/uL (1.0-4.8); Lymphocytes % (A) 5 %; MCHC 31.6 g/dL (31.0-37.0); MCV 94.9 fL (80.0-100.0); Macrocytosis Slight; Mean Platelet Volume 7.3; Monocytes # (A) 0.6 k/uL (0-1.0); Monocytes % (A) 7 %; Neutrophils # (A) 6.6 k/uL (1.3-7.7); Neutrophils % (A) 83 %; Platelet Count 258 k/uL (150-450); RBC 2.71 m/uL (4.30-5.90); RDW 17.9 % (11.5-15.5)
[2019-05-10 07:26] LABS: Calcium 8.4 mg/dL (8.4-10.2); Potassium 5.4 mmol/L (3.5-5.1)
--- NOTE | 2019-05-10 09:49 | P.PN ---
Subjective Patient is seen in follow-up for acute kidney injury on chronic kidney disease. Renal function continues to improve. He is currently working with physical therapy. She is tired today. He has been voiding. No vomiting or diarrhea. Vital signs are stable. General: The patient appeared well nourished and normally developed. HEENT: Head exam is unremarkable. Neck is without jugular venous distension. LUNGS: Lungs are clear to auscultation and percussion. Breath sounds decreased. HEART: Rate and Rhythm are regular. First and second heart sounds normal. No murmurs, rubs or gallops. ABDOMEN: Abdominal exam reveals normal bowel sounds. Non-tender and non- distended. EXTREMITITES: No clubbing, cyanosis, or edema. Resolved. No drainage noted. Objective - Vital Signs Vital signs: Vital Signs Temp 98.6 F 05/10/19 08:17 Pulse 60 05/10/19 08:17 Resp 16 05/10/19 08:17 BP 146/65 05/10/19 08:17 Pulse Ox 96 05/10/19 08:17 Intake & Output 05/09/19 05/10/19 05/10/19 18:59 06:59 18:59 Intake Total 478 Output Total 150 600 Balance -150 -122 Weight 67 kg 87.1 kg Intake: Oral 478 Output: Urine 150 600 Other: Voiding Method Urinal # Voids 2 - Labs CBC & Chem 7: 05/10/19 06:33 05/10/19 06:33 Labs: Abnormal Lab Results - Last 24 Hours (Table) 05/09/19 05/09/19 05/10/19 Range/Units 17:25 20:34 06:05 RBC (4.30-5.90) m/uL Hgb (13.0-17.5) gm/dL Hct (39.0-53.0) % RDW (11.5-15.5) % Lymphocytes # (1.0-4.8) k/uL Sodium (137-145) mmol/L Potassium (3.5-5.1) mmol/L BUN (9-20) mg/dL Creatinine (0.66-1.25) mg/dL Glucose (74-99) mg/dL POC Glucose (mg/dL) 126 H 208 H 181 H (75-99) mg/dL 05/10/19 05/10/19 Range/Units 06:33 06:33 RBC 2.71 L (4.30-5.90) m/uL Hgb 8.1 L (13.0-17.5) gm/dL Hct 25.7 L (39.0-53.0) % RDW 17.9 H (11.5-15.5) % Lymphocytes # 0.4 L (1.0-4.8) k/uL Sodium 134 L (137-145) mmol/L Potassium 5.4 H (3.5-5.1) mmol/L BUN 105 H* (9-20) mg/dL Creatinine 1.53 H (0.66-1.25) mg/dL Glucose 151 H (74-99) mg/dL POC Glucose (mg/dL) (75-99) mg/dL Microbiology - Last 24 Hours (Table) 05/07/19 23:44 Gram Stain - Preliminary Ankle - Left Wound Culture - Preliminary Gram Neg Bacilli Assessment and Plan Plan: Assessment: 1. Acute kidney injury mostly prerenal secondary to anemia and intravascular volume depletion, improving with IV hydration. Creatinine 1.53 today. 2. Chronic kidney disease stage III secondary to diabetic kidney disease and nephrosclerosis with baseline creatinine near 1.5-1.6. 3. Hyperkalemia secondary to acute kidney injury and GI bleed. Better. 4. Hypovolemia improved with IV hydration. 5. Insulin-dependent diabetes mellitus. 6. Hypertension with chronic kidney disease. Controlled. 7. Anemia of chronic kidney disease. Rule out iron deficiency. Maintained on Aranesp. Plan: Maintain normal saline at 60 mL an hour. Avoid nephrotoxins. Repeat electrolytes in the morning. Check iron studies.
[2019-05-10] MEDS: SODIUM CHLORIDE 0.9% 1,000 ML IV SCH (09:50)
[2019-05-10] MEDS: HYDROmorphone 0.5 MG/0.5 ML SYRINGE IVP PRN ×2 (09:54→14:57)
[2019-05-10] MEDS: PANTOPRAZOLE 40 MG/10 ML VIAL IV SCH ×2 (09:59→21:53)
[2019-05-10] MEDS: CLOPIDOGREL 75 MG TAB PO SCH (10:02)
[2019-05-10] MEDS: COLLAGENASE 250 UNIT/GM OINTMENT 30 GM TUBE TOPICAL SCH (10:03)
[2019-05-10] MEDS: GABAPENTIN 100 MG CAP PO SCH ×2 (10:03→13:25)
[2019-05-10] MEDS: METOPROLOL TARTRATE 50 MG TAB PO SCH ×3 (10:04→21:53)
[2019-05-10] MEDS: hydrALAZINE HCL 25 MG TAB PO SCH ×3 (10:04→21:53)
[2019-05-10 11:25] LABS: Reticulocyte % 5.89 % (0.10-1.80)
[2019-05-10 11:36] LABS: % Iron Saturation 6.54 (15.00-50.00); Ferritin 526.7 ng/mL (22.0-322.0); Folate, Serum 20.6 ng/mL
[2019-05-10] MEDS ORDERED: IV FLUID CONTINUATION 900 ML IV ONE (11:45)
[2019-05-10] MEDS ORDERED: ePHEDrine SULFATE/0.9% NACL/PF 50 MG/5 ML SYRINGE IV ONE (11:46)
[2019-05-10] MEDS ORDERED: PROPOFOL 10 MG/ML 20 ML VIAL IV ONE (11:46)
[2019-05-10] MEDS ORDERED: LIDOCAINE 1% INJ 10MG/ML (20 ML MDV) ONE (11:46)
--- NOTE | 2019-05-10 12:24 | P.PCN ---
Date of Procedure: 05/10/19 Description of Procedure: BRIEF HISTORY: 74-year-old male with multiple medical comorbidities including chronic nonhealing lower extremity ulcers who presented to the hospital with complaints of worsening of his diarrhea over 2-3 days prior to admission. Currently not having diarrhea. Patient was also found to have a normocytic normochromic anemia on presentation. No signs or symptoms of GI bleeding. Patient has been noted to be anemic on prior admissions. PROCEDURE PERFORMED: Esophagogastroduodenoscopy with biopsy. PREOPERATIVE DIAGNOSIS: Anemia. ESTIMATED BLOOD LOSS: Minimal. IV sedation per anesthesia. PROCEDURE: After informed consent was obtained, the patient was brought into the endoscopy unit. IV sedation was administered by Anesthesia under continuous monitoring. Initially the Olympus GIF-190 video endoscope was inserted into the mouth. Esophagus intubated without any difficulty. It was gradually advanced into the stomach and duodenum and carefully examined. The bulb and the second part of the duodenum appeared normal, with biopsies taken to rule out celiac sprue. The scope at this time was withdrawn to the stomach, adequately insufflated with air, and upon careful examination, mucosa of the antrum, body, cardia and the fundus appeared normal, except for some mild punctate erythema in the antrum and body suggestive of mild gastritis. The scope was then withdrawn into the esophagus. The GE junction was located at 38 cm from the incisors. 2 cm hiatal hernia noted. The esophagus appeared normal. There were no erosions or ulcerations seen and the patient tolerated the procedure well. IMPRESSION: 1. Mild gastritis, antrum and body biopsied. 2. Duodenal biopsies. 3. Small hiatal hernia. RECOMMENDATIONS: The findings of this examination were discussed with the patient. Okay to resume diet. Continue monitor hemoglobin and hematocrit and transfuse as needed. No plans for further endoscopic evaluation at this time.
[2019-05-10 12:51] LABS: Glucose,Whole Blood 145 mg/dL (75-99)
[2019-05-10 17:43] LABS: Glucose,Whole Blood 228 mg/dL (75-99)
[2019-05-10] MEDS: MULTIVITAMINS, THERA 1 EACH TAB PO SCH (17:43)
[2019-05-10] MEDS: CHOLECALCIFEROL 1,000 UNIT TAB PO SCH (17:43)
--- NOTE | 2019-05-10 19:05 | PN ---
PROGRESS NOTE DATE OF SERVICE: 05/10/2019 This 74-year-old gentleman who was admitted with abdominal discomfort, diarrhea, possible acute infective gastroenteritis with severe dehydration is being closely monitored at this time. The patient also had anemia. Blood loss anemia was suspected and Dr. Andrews performed an EGD which showed mild gastritis. Biopsies were taken. A small hiatal hernia was also noted. The hemoglobin is rather stable at 8.1 today compared to 7.5 yesterday. Creatinine is 1.53, slightly improved also. The patient is being closely monitored. Multiple consultants are following the patient closely. The patient has a peripheral vascular procedure scheduled next week by Dr. Galindo, per family. No chest pain. No palpitations. No fever. Past medical history reviewed. REVIEW OF SYSTEMS: CARDIOVASCULAR SYSTEM: No angina, palpitations. RESPIRATORY SYSTEM: As mentioned earlier. GI: As mentioned earlier. : No dysuria or retention. NERVOUS SYSTEM: No numbness, weakness. ALLERGY/IMMUNOLOGY: No asthma or hayfever. MUSCULOSKELETAL: As mentioned earlier. CURRENT MEDICATIONS: Reviewed. They include: 1. [place] 5 mg q.8 p.r.n. 2. Ventolin p.r.n. 3. Lipitor 40 mg at bedtime. 4. Vitamin D3. 5. Santyl. 6. Lexapro. 7. Neurontin. 8. Apresoline. 9. Dilaudid. 10.NovoLog. 11.Levemir. 12.Narcan. 13.Zofran. 14.Protonix. Doses and route reviewed. PHYSICAL EXAMINATION: Patient alert and oriented x2. Pulse 63, blood pressure 150/65, respiration 24, temperature 97.7, pulse ox 96% on 2 L. HEENT: Conjunctivae pale. Oral mucosa moist. Mild facial puffiness. CARDIOVASCULAR SYSTEM: S1, S2 muffled. Ejection systolic murmur. RESPIRATORY SYSTEM: Breath sounds diminished at the bases. A few scattered rhonchi. ABDOMEN: Soft, non-tender. LEGS: No edema. No swelling. NERVOUS SYSTEM: Diffusely weak. LABS: WBC 8, hemoglobin 8.1, sodium 134, potassium 5.5. Creatinine is 1.53. ASSESSMENT: 1. Abdominal discomfort as well as diarrhea, possibly acute infective gastroenteritis with severe dehydration, present on admission. 2. Anemia, possibly acute on chronic blood-loss anemia, multifactorial, status post transfusion. 3. Acute renal failure, possibly acute prerenal factors with acute tubular necrosis. 4. Severe hyperkalemia secondary to renal failure. 5. History of chronic kidney disease, stage III baseline. 6. Hyponatremia. 7. Increased white count, possibly reactive. 8. History of atrial fibrillation, chronic. 9. History of coronary artery disease. 10.History of congestive heart failure with chronic diastolic dysfunction. 11.History of chronic obstructive pulmonary disease. 12.Diabetes mellitus, type 2. 13.Hypertension. 14.Hyperlipidemia. 15.Gait dysfunction. 16.Peripheral vascular disease. 17.History of degenerative joint disease. 18.History of sleep apnea. 19.History of CPAP. 20.History of coronary artery disease, stent. 21.History of nicotine dependence. 22.Obesity with body mass index of 32.8. 23.Severe mitral regurgitation and severely calcified mitral stenosis, status post repair in October 2018. 24.Bilateral lower extremity cellulitis with peripheral vascular disease. 25.Diabetic peripheral neuropathy. 26.FULL CODE. RECOMMENDATIONS AND DISCUSSION: I recommend to continue current medications, continue with the monitoring, symptomatic treatment. Repeat labs and monitor renal functions closely. Monitor blood sugars closely. Please stop the IV will continue to monitor. Otherwise, I will repeat a chest x-ray tomorrow to assess the fluid/electrolyte balance and continue to monitor. Further recommendations to follow. Once again, the prognosis is guarded. Further recommendations to follow. MMKARLAL / IJN: [id number] / JOSÉ LUIS
[2019-05-10 20:10] LABS: Glucose,Whole Blood 204 mg/dL (75-99)
[2019-05-10 21:26] LABS: Glucose,Whole Blood 168 mg/dL (75-99)
[2019-05-10] MEDS: ATORVASTATIN 40 MG TAB PO SCH (21:53)
[2019-05-10] MEDS: ESCITALOPRAM 10 MG TAB PO SCH (22:11)
[2019-05-10] MEDS: INSULIN DETEMIR (LEVEMIR) 100 UNIT/ML SYR SQ SCH (22:11)
--- NOTE | 2019-05-10 22:11 | PN ---
PROGRESS NOTE DATE OF SERVICE: 05/10/2019 REASON FOR FOLLOWUP: Bilateral lower extremity wounds . INTERVAL HISTORY: The patient is currently afebrile, has been breathing comfortably. The patient denies having any chest pain, shortness of breath or cough. Still complains of significant pain in the leg wound at the time of dressing changes. No nausea, no vomiting. No abdominal pain or diarrhea. PHYSICAL EXAMINATION: Blood pressure 150/65 with a pulse of 63, temperature 97.7. He is 97% on 2 L nasal cannula. General description is an elderly male lying in bed in no distress. RESPIRATORY SYSTEM: Unlabored breathing. Clear to auscultation anteriorly. HEART: S1, S2. Regular rate and rhythm. ABDOMEN: Soft. No tenderness. Leg wounds have slightly dried except the wound in the left medial ankle area and the foot which did have some slough tissue. LABS: Hemoglobin is 8.1, white count 8.0. BUN 105, creatinine 1.53. Wound superficial culture from the left Klebsiella and Pseudomonas. DIAGNOSTIC IMPRESSION AND PLAN: Patient with multiple wounds to bilateral lower extremities without evidence of any significant cellulitis. The wound to the left medial ankle area did have some slough tissue but no redness. Patient with no fever and no white count. Positive culture likely representing colonization and not infection. Hence we will hold on any systemic antibiotic therapy. This was discussed in detail with the patient. Local care to continue with Santyl to the wound with the slough tissue and Aquacel Silver dressing to the wound with no slough. Family at the bedside. Their questions and concerns were answered. MMODL / IJN: [id number] / JOSÉ LUIS
[2019-05-11] MEDS: HYDROcodone/APAP 5-325MG 1 EACH TAB PO SCH ×4 (00:45→23:27)
[2019-05-11] MEDS: SODIUM CHLORIDE 0.9% 1,000 ML IV SCH (05:52)
[2019-05-11 06:52] LABS: Glucose,Whole Blood 173 mg/dL (75-99)
[2019-05-11 07:29] LABS: Calcium 8.6 mg/dL (8.4-10.2); Potassium 5.5 mmol/L (3.5-5.1)
--- NOTE | 2019-05-11 07:36 | XR ---
EXAMINATION TYPE: XR chest 1V portable DATE OF EXAM: 05/11/2019 HISTORY: chf. REFERENCE: Previous study dated 05/09/2019 FINDINGS: There has been a midline sternotomy. The heart is mildly enlarged. There is mild vascular c ongestion without ramon edema. Pleural spaces are clear. IMPRESSION: MILD CARDIOMEGALY WITH VASCULAR CONGESTION.
[2019-05-11] MEDS: METOPROLOL TARTRATE 50 MG TAB PO SCH ×2 (07:52→20:46)
[2019-05-11] MEDS: GABAPENTIN 100 MG CAP PO SCH ×2 (07:52→20:46)
[2019-05-11] MEDS: hydrALAZINE HCL 25 MG TAB PO SCH ×2 (07:52→20:46)
[2019-05-11] MEDS: INSULIN ASPART (NovoLOG) 100 UNIT/ML VIAL SQ SCH ×4 (07:53→20:46)
[2019-05-11] MEDS: PANTOPRAZOLE 40 MG/10 ML VIAL IV SCH (07:53)
--- NOTE | 2019-05-11 09:26 | P.PN ---
Subjective Patient is seen in follow-up for acute kidney injury on chronic kidney disease. Renal function continues to improve. He has been voiding. No vomiting or diarrhea. No changes overnight. Vital signs are stable. General: The patient appeared well nourished and normally developed. HEENT: Head exam is unremarkable. Neck is without jugular venous distension. LUNGS: Lungs are clear to auscultation and percussion. Breath sounds decreased. HEART: Rate and Rhythm are regular. First and second heart sounds normal. No murmurs, rubs or gallops. ABDOMEN: Abdominal exam reveals normal bowel sounds. Non-tender and non- distended. EXTREMITITES: No clubbing, cyanosis, or edema. Resolved. No drainage noted. Objective - Vital Signs Vital signs: Vital Signs Temp 98.0 F 05/11/19 07:00 Pulse 56 L 05/11/19 07:00 Resp 16 05/11/19 07:00 BP 156/70 05/11/19 07:00 Pulse Ox 100 05/11/19 07:00 Intake & Output 05/10/19 05/11/19 05/11/19 18:59 06:59 18:59 Intake Total 322 222 Output Total 400 300 Balance -78 -78 Intake: IV 100 Oral 222 222 Output: Urine 400 300 Other: Voiding Method Urinal # Voids 2 - Labs CBC & Chem 7: 05/10/19 06:33 05/11/19 06:32 Labs: Abnormal Lab Results - Last 24 Hours (Table) 05/10/19 05/10/19 05/10/19 Range/Units 06:33 06:33 06:33 Retic Count 5.89 H (0.10-1.80) % Sodium (137-145) mmol/L Potassium (3.5-5.1) mmol/L Chloride (98-107) mmol/L Carbon Dioxide (22-30) mmol/L BUN (9-20) mg/dL Glucose (74-99) mg/dL POC Glucose (mg/dL) (75-99) mg/dL Iron 17 L (65-175) ug/dL % Saturation 6.54 L (15.00-50.00) Transferrin 188.0 L (204.0-354.0) mg/dL Ferritin 526.7 H (22.0-322.0) ng/mL 05/10/19 05/10/1920 Range/Units 12:49 17:41 20:09 Retic Count (0.10-1.80) % Sodium (137-145) mmol/L Potassium (3.5-5.1) mmol/L Chloride (98-107) mmol/L Carbon Dioxide (22-30) mmol/L BUN (9-20) mg/dL Glucose (74-99) mg/dL POC Glucose (mg/dL) 145 H 228 H 204 H (75-99) mg/dL Iron (65-175) ug/dL % Saturation (15.00-50.00) Transferrin (204.0-354.0) mg/dL Ferritin (22.0-322.0) ng/mL 05/10/19 05/11/19 05/11/19 Range/Units 21:25 06:32 06:50 Retic Count (0.10-1.80) % Sodium 136 L (137-145) mmol/L Potassium 5.5 H (3.5-5.1) mmol/L Chloride 108 H (98-107) mmol/L Carbon Dioxide 21 L (22-30) mmol/L BUN 88 H (9-20) mg/dL Glucose 151 H (74-99) mg/dL POC Glucose (mg/dL) 168 H 173 H (75-99) mg/dL Iron (65-175) ug/dL % Saturation (15.00-50.00) Transferrin (204.0-354.0) mg/dL Ferritin (22.0-322.0) ng/mL Microbiology - Last 24 Hours (Table) 05/07/19 23:44 Gram Stain - Final Ankle - Left Wound Culture - Final Klebsiella oxytoca Pseudomonas aeruginosa Assessment and Plan Plan: Assessment: 1. Acute kidney injury mostly prerenal secondary to anemia and intravascular volume depletion, improving with IV hydration. Creatinine 1.19 today. 2. Chronic kidney disease stage III secondary to diabetic kidney disease and nephrosclerosis with baseline creatinine near 1.5-1.6. 3. Hyperkalemia secondary to acute kidney injury and GI bleed. Better. Today's sample was hemolyzed. 4. Hypovolemia improved with IV hydration. 5. Insulin-dependent diabetes mellitus. 6. Hypertension with chronic kidney disease. Controlled. 7. Anemia of chronic kidney disease. Iron deficiency noted. Maintained on Aranesp. Plan: Hep-Lock IV fluids. IV iron 3 doses. First dose today. Avoid nephrotoxins. Repeat electrolytes in the morning.
[2019-05-11 11:27] LABS: Glucose,Whole Blood 221 mg/dL (75-99)
[2019-05-11] MEDS: SODIUM FERRIC GLUCONAT-SUCROSE 125 MG in SODIUM CHLORIDE 0.9% 100 ML IVPB SCH (12:37)
[2019-05-11] MEDS: HYDROmorphone 0.5 MG/0.5 ML SYRINGE IVP PRN ×2 (14:30→20:47)
[2019-05-11] MEDS: COLLAGENASE 250 UNIT/GM OINTMENT 30 GM TUBE TOPICAL SCH (14:30)
[2019-05-11 16:26] LABS: Glucose,Whole Blood 190 mg/dL (75-99)
[2019-05-11] MEDS: MULTIVITAMINS, THERA 1 EACH TAB PO SCH (16:40)
[2019-05-11] MEDS: CHOLECALCIFEROL 1,000 UNIT TAB PO SCH (16:40)
--- NOTE | 2019-05-11 18:43 | P.PN ---
Subjective Progress Note Date: 05/11/19 Principal diagnosis: Anemia, gastritis Patient is seen sitting bedside. Tolerated diet. No signs or symptoms of GI bleeding. Objective - Vital Signs Vital signs: Vital Signs Temp 98.0 F 05/11/19 07:00 Pulse 56 L 05/11/19 07:00 Resp 16 05/11/19 07:00 BP 156/70 05/11/19 07:00 Pulse Ox 100 05/11/19 07:00 Intake & Output 05/10/19 05/11/19 05/11/19 18:59 06:59 18:59 Intake Total 322 222 Output Total 400 300 Balance - -78 Intake: IV 100 Oral 222 222 Output: Urine 400 300 Other: Voiding Method Urinal # Voids 2 - Exam On physical examination, patient appears comfortable in no apparent distress. HEAD: Normocephalic, atraumatic. EYES: No scleral icterus. No conjunctival injection. MOUTH: No lesions, tongue midline. NECK: Trachea midline, no gross abnormalities. ABDOMEN: Soft, obese. Bowel sounds are positive. No organomegaly. No guarding or rigidity. EXTREMITIES: Bilateral pedal edema and also a lower extremities. SKIN: No rashes, no jaundice. NEUROLOGIC: Alert and oriented x3. No focal deficits. - Labs CBC & Chem 7: 05/10/19 06:33 05/11/19 06:32 Labs: Abnormal Lab Results - Last 24 Hours (Table) 05/10/19 05/10/19 05/10/19 Range/Units 06:33 06:33 06:33 Retic Count 5.89 H (0.10-1.80) % Sodium (137-145) mmol/L Potassium (3.5-5.1) mmol/L Chloride (98-107) mmol/L Carbon Dioxide (22-30) mmol/L BUN (9-20) mg/dL Glucose (74-99) mg/dL POC Glucose (mg/dL) (75-99) mg/dL Iron 17 L (65-175) ug/dL % Saturation 6.54 L (15.00-50.00) Transferrin 188.0 L (204.0-354.0) mg/dL Ferritin 526.7 H (22.0-322.0) ng/mL 05/10/19 05/10/19 05/10/19 Range/Units 12:49 17:41 20:09 Retic Count (0.10-1.80) % Sodium (137-145) mmol/L Potassium (3.5-5.1) mmol/L Chloride (98-107) mmol/L Carbon Dioxide (22-30) mmol/L BUN (9-20) mg/dL Glucose (74-99) mg/dL POC Glucose (mg/dL) 145 H 228 H 204 H (75-99) mg/dL Iron (65-175) ug/dL % Saturation (15.00-50.00) Transferrin (204.0-354.0) mg/dL Ferritin (22.0-322.0) ng/mL 05/10/19 05/11/19 05/11/19 Range/Units 21:25 06:32 06:50 Retic Count (0.10-1.80) % Sodium 136 L (137-145) mmol/L Potassium 5.5 H (3.5-5.1) mmol/L Chloride 108 H (98-107) mmol/L Carbon Dioxide 21 L (22-30) mmol/L BUN 88 H (9-20) mg/dL Glucose 151 H (74-99) mg/dL POC Glucose (mg/dL) 168 H 173 H (75-99) mg/dL Iron (65-175) ug/dL % Saturation (15.00-50.00) Transferrin (204.0-354.0) mg/dL Ferritin (22.0-322.0) ng/mL Microbiology - Last 24 Hours (Table) 05/07/19 23:44 Gram Stain - Final Ankle - Left Wound Culture - Final Klebsiella oxytoca Pseudomonas aeruginosa Assessment and Plan (1) Normocytic normochromic anemia Narrative/Plan: 74-year-old male with multiple medical comorbidities including chronic nonhealing lower extremity ulcers who presented to the hospital with complaints of worsening of his diarrhea over 2-3 days prior to admission. Currently not having diarrhea. Patient was also found to have a normocytic normochromic anemia on presentation. No signs or symptoms of GI bleeding. Patient has been noted to be anemic on prior admissions. Anemia is likely multifactorial in the setting of chronic disease, weeping of blood from chronic lower extremity ulcers, underlying kidney dysfunction, with no evidence of GI bleeding on upper endoscopy with only mild gastritis and small hiatal hernia noted. Current Visit: Yes Status: Acute Code(s): D64.9 - ANEMIA, UNSPECIFIED SNOMED Code(s): 33487315 Plan: Supportive care Okay for diet Continue to monitor CBC and transfuse as needed Continue to monitor for signs or symptoms of GI bleed Laboratory evaluation ordered for evaluation of anemia Continue Protonix therapy daily Thank you for allowing us to participate in the care of the patient service will stand by, please call us back with any questions or concerns
--- NOTE | 2019-05-11 20:07 | PN ---
PROGRESS NOTE DATE OF SERVICE: 05/11/2019 This 74-year-old gentleman admitted with abdominal pain, diarrhea with possible acute gastroenteritis also had renal failure. The patient also has hyperkalemia, potassium was elevated. Today it is again, 5.5. Creatinine improved to 1.1. Multiple consultants are following the patient closely. The patient is complaining of generalized tiredness and weakness. Patient is slightly drowsy also. The patient also had upper endoscopy because of the low hemoglobin and the hemoglobin was 8.1 yesterday, today's hemoglobin is not available. PAST MEDICAL HISTORY: Reviewed. REVIEW OF SYSTEMS: CARDIOVASCULAR SYSTEM: No angina. RESPIRATORY: As mentioned earlier. GI: As mentioned earlier. : No dysuria. NERVOUS SYSTEM: No numbness or weakness. CURRENT MEDICATIONS: Reviewed and include: 1. [place] 5 mg q.8 p.r.n. 2. Ventolin p.r.n. 3. Lipitor 40 mg q.h.s. 4. Vitamin D3. 5. Santyl 1 application daily. 6. Lexapro 10 mg q.h.s. 7. Iron sulfate IV. 8. Neurontin. 9. Apresoline 25 mg p.o. 10.Dilaudid. 11.Levemir. 12.Lopressor 50 mg p.o. b.i.d. 13.Narcan. 14.Zofran. 15.Protonix. PHYSICAL EXAM: Patient is alert oriented x3. Pulse 62, blood pressure 140/77, respiration 18, temp 97.5, pulse ox 98% on 2 L. HEENT: Conjunctivae normal. Oral mucosa moist. NECK: No jugular venous distention. No lymph node enlargement. CARDIOVASCULAR: S1, S2. RESPIRATORY: Diminished breath sounds at the bases. A few scattered rhonchi and crackles. ABDOMEN: Soft, obese, nontender. LEGS: Bilateral leg edema. NERVOUS SYSTEM: Diffusely weak. LABS: At this time, WBC 8, hemoglobin is 8.1. Other labs are sodium 130, potassium 5.5, creatinine is 1.19. ASSESSMENT: 1. Abdominal discomfort as well as diarrhea, possible acute infective gastroenteritis with severe dehydration, present on admission. 2. Anemia, possibly acute on chronic blood-loss anemia, multifactorial status post transfusion. 3. Acute renal failure, possibly acute prerenal renal factors and acute tubular necrosis. 4. Severe hyperkalemia secondary to renal failure. 5. History of chronic kidney disease, stage 3 baseline. 6. Hyponatremia. 7. Increased WBC possibly reactive. 8. History of atrial fibrillation, chronic. 9. History of coronary artery disease, stent. 10.History of congestive heart failure with chronic diastolic dysfunction. 11.History of chronic obstructive pulmonary disease. 12.Diabetes mellitus type 2. 13.Hypertension. 14.Hyperlipidemia. 15.Gait dysfunction. 16.Peripheral vascular disease. 17.History of degenerative joint disease. 18.History of sleep apnea. 19.History of CPAP. 20.History of nicotine dependence. 21.Obesity with body mass index of 32.8. 22.Severe mitral regurgitation and severely calcified mitral stenosis, status post repair in October 2018. 23.Bilateral lower extremity cellulitis with peripheral vascular disease. 24.Diabetic peripheral neuropathy. 25.FULL CODE. RECOMMENDATIONS AND DISCUSSION: I recommend to continue current medications, continue to monitor, continue symptomatic treatment. The GI symptoms are slightly better. Potassium is still elevated. We will monitor the patient closely. Repeat lytes in the morning. Repeat CBC in the morning. The most recent chest x-ray which was personally reviewed by me showed persistent cardiomegaly. Otherwise, the most recent hemoglobin is not available. Dr. Andrews performed EGD yesterday which showed evidence of mild gastritis and duodenal biopsies were taken. Overall prognosis guarded because of above-mentioned multiple medical issues. Also, per the family, the patient had outpatient peripheral vascular procedure on Monday by Dr. Galindo. We will continue to monitor. Once the patient is stabilized we will try to send the patient home. Further recommendations to follow. MMODL / IJN: [id number] /
[2019-05-11 20:16] LABS: Glucose,Whole Blood 216 mg/dL (75-99)
[2019-05-11] MEDS: ATORVASTATIN 40 MG TAB PO SCH (20:46)
[2019-05-11] MEDS: INSULIN DETEMIR (LEVEMIR) 100 UNIT/ML SYR SQ SCH (20:46)
[2019-05-11] MEDS: ESCITALOPRAM 10 MG TAB PO SCH (20:54)
--- NOTE | 2019-05-12 04:40 | PN ---
PROGRESS NOTE DATE OF SERVICE: 05/11/2019 REASON FOR FOLLOWUP VISIT: 1. Bilateral lower extremity wounds. 2. Left ankle wound with a positive culture. INTERVAL HISTORY: The patient is currently afebrile, has been breathing comfortably. Continues to have significant pain at the time of dressing changes to both leg areas. No worsening pain to the left medial ankle wound. No chest pain, cough. No nausea, vomiting. No abdominal pain, no diarrhea. PHYSICAL EXAMINATION: Blood pressure 133/66 with a pulse of 66, temperature 98.1. He is 99% on 2 L nasal cannula. General description is an elderly male lying in bed in no distress. Respiratory system: Unlabored breathing, clear to auscultation anteriorly. Heart S1, S2. Regular rate and rhythm. Abdomen soft, no tenderness. Legs are covered in Zi wrap. Per the daughter who saw the wounds at the time of dressing change mentioned there was no significant redness. LABS: Creatinine is 1.1, white count is normal. DIAGNOSTIC IMPRESSION AND PLAN: Patient with bilateral lower extremity ulcer with no definite cellulitis. Local care to continue with Aquacel Silver dressing to the wounds and Santyl to the wound with slough tissue followed by moisturizing and Zi wrap. May benefit from low-dose diuretics to cut down on the swelling. Continue supportive care. MMODL / IJN: [id number] /
[2019-05-12] MEDS: HYDROmorphone 0.5 MG/0.5 ML SYRINGE IVP PRN ×2 (06:03→13:45)
[2019-05-12 06:45] LABS: Glucose,Whole Blood 103 mg/dL (75-99)
[2019-05-12] MEDS: INSULIN ASPART (NovoLOG) 100 UNIT/ML VIAL SQ SCH ×4 (06:54→20:13)
[2019-05-12 06:57] LABS: Anisocytosis Slight; Basophils # (A) 0.1 k/uL (0-0.2); Basophils % (A) 1 %; Eosinophils # (A) 0.4 k/uL (0-0.7); Eosinophils % (A) 3 %; HCT 26.2 % (39.0-53.0); HGB 8.2 gm/dL (13.0-17.5); Hypochromasia Moderate; Lymphocytes # (A) 0.6 k/uL (1.0-4.8); Lymphocytes % (A) 6 %; MCH 30.2 pg (25.0-35.0); MCHC 31.1 g/dL (31.0-37.0); MCV 97.2 fL (80.0-100.0); Macrocytosis Slight; Mean Platelet Volume 7.3; Monocytes # (A) 0.9 k/uL (0-1.0); Monocytes % (A) 8 %; Neutrophils # (A) 8.7 k/uL (1.3-7.7); Neutrophils % (A) 81 %; Platelet Count 323 k/uL (150-450); Poikilocytosis Slight; RDW 17.7 % (11.5-15.5); WBC 10.8 k/uL (3.8-10.6)
[2019-05-12 07:13] LABS: Calcium 8.7 mg/dL (8.4-10.2); Magnesium 2.4 mg/dL (1.6-2.3); Potassium 5.5 mmol/L (3.5-5.1)
[2019-05-12] MEDS: GABAPENTIN 100 MG CAP PO SCH ×2 (08:20→20:13)
[2019-05-12] MEDS: HYDROcodone/APAP 5-325MG 1 EACH TAB PO SCH ×3 (08:20→23:22)
[2019-05-12] MEDS: PANTOPRAZOLE 40 MG TABLET PO SCH (08:20)
[2019-05-12] MEDS: METOPROLOL TARTRATE 50 MG TAB PO SCH ×2 (08:20→20:13)
[2019-05-12] MEDS: hydrALAZINE HCL 25 MG TAB PO SCH ×2 (08:20→20:13)
[2019-05-12] MEDS ORDERED: FUROSEMIDE 10 MG/ML 2 ML VIAL IV ONE (09:50)
--- NOTE | 2019-05-12 09:51 | P.PN ---
Subjective Patient is seen in follow-up for acute kidney injury on chronic kidney disease. Renal function continues to improve. He has been voiding. No vomiting or diarrhea. No changes overnight. Hemodynamically stable. Vital signs are stable. General: The patient appeared well nourished and normally developed. HEENT: Head exam is unremarkable. Neck is without jugular venous distension. LUNGS: Lungs are clear to auscultation and percussion. Breath sounds decreased. HEART: Rate and Rhythm are regular. First and second heart sounds normal. No murmurs, rubs or gallops. ABDOMEN: Abdominal exam reveals normal bowel sounds. Non-tender and non-disten ded. EXTREMITITES: No clubbing, cyanosis, or edema. Resolved. No drainage noted. Objective - Vital Signs Vital signs: Vital Signs Temp 98.7 F 05/12/19 07:00 Pulse 64 05/12/19 07:00 Resp 20 05/12/19 07:00 BP 150/62 05/12/19 07:00 Pulse Ox 97 05/12/19 07:00 Intake & Output 05/11/19 05/12/19 05/12/19 18:59 06:59 18:59 Intake Total 600 Balance 600 Weight 68 kg Intake: Intake, IV Titration 600 Amount Sodium Chloride 0.9% 1, 600 000 ml @ 60 mls/hr IV . [id number] [facility] Rx#:[id number] Other: Voiding Method Urinal Urinal # Voids 1 3 - Labs CBC & Chem 7: 05/12/19 05:41 05/12/19 05:41 Labs: Abnormal Lab Results - Last 24 Hours (Table) 05/11/19 05/11/19 05/11/19 Range/Units 11:25 16:24 20:13 WBC (3.8-10.6) k/uL RBC (4.30-5.90) m/uL Hgb (13.0-17.5) gm/dL Hct (39.0-53.0) % RDW (11.5-15.5) % Neutrophils # (1.3-7.7) k/uL Lymphocytes # (1.0-4.8) k/uL Potassium (3.5-5.1) mmol/L Chloride (98-107) mmol/L Carbon Dioxide (22-30) mmol/L BUN (9-20) mg/dL POC Glucose (mg/dL) 221 H 190 H 216 H (75-99) mg/dL Magnesium (1.6-2.3) mg/dL 05/12/19 05/12/19 05/12/19 Range/Units 05:41 05:41 06:44 WBC 10.8 H (3.8-10.6) k/uL RBC 2.70 L (4.30-5.90) m/uL Hgb 8.2 L (13.0-17.5) gm/dL Hct 26.2 L (39.0-53.0) % RDW 17.7 H (11.5-15.5) % Neutrophils # 8.7 H (1.3-7.7) k/uL Lymphocytes # 0.6 L (1.0-4.8) k/uL Potassium 5.5 H (3.5-5.1) mmol/L Chloride 109 H (98-107) mmol/L Carbon Dioxide 20 L (22-30) mmol/L BUN 73 H (9-20) mg/dL POC Glucose (mg/dL) 103 H (75-99) mg/dL Magnesium 2.4 H (1.6-2.3) mg/dL Assessment and Plan Plan: Assessment: 1. Acute kidney injury mostly prerenal secondary to anemia and intravascular volume depletion, improving with IV hydration. Creatinine 1.13 today. 2. Chronic kidney disease stage III secondary to diabetic kidney disease and nephrosclerosis with baseline creatinine near 1.5-1.6. 3. Hyperkalemia secondary to acute kidney injury and GI bleed. Also component of acidosis. Stable. 4. Hypovolemia improved with IV hydration. 5. Insulin-dependent diabetes mellitus. 6. Hypertension with chronic kidney disease. Controlled. 7. Anemia of chronic kidney disease. Iron deficiency noted. Maintained on Aranesp. Plan: Remains off IV fluids. IV iron 3 doses. Second dose today. Avoid nephrotoxins. Repeat electrolytes in the morning. Maintain low potassium diet. Lasix 20 mg IV once today.
[2019-05-12] MEDS: SODIUM FERRIC GLUCONAT-SUCROSE 125 MG in SODIUM CHLORIDE 0.9% 100 ML IVPB SCH (10:39)
[2019-05-12 11:31] LABS: Glucose,Whole Blood 91 mg/dL (75-99)
[2019-05-12] MEDS: COLLAGENASE 250 UNIT/GM OINTMENT 30 GM TUBE TOPICAL SCH (13:46)
[2019-05-12] MEDS ORDERED: HYDROmorphone 0.5 MG/0.5 ML SYRINGE IVP STA (15:23)
--- NOTE | 2019-05-12 16:20 | PN ---
PROGRESS NOTE DATE OF SERVICE: 05/12/2019 This 74-year-old gentleman admitted with abdominal pain and acute gastritis also, renal failure. Patient has hyperkalemia. Patient has change in mental status. The patient also has significant vascular disease. Dr. Galindo is planning definitive procedure next week. The patient continues to have some hyperkalemia. Patient is complaining of severe pain also. The patient received Dilaudid 0.5 mg without any improvement. PAST MEDICAL HISTORY: Reviewed. REVIEW OF SYSTEMS: CARDIOVASCULAR: As mentioned earlier. RESPIRATORY: As mentioned earlier. GI: As mentioned earlier. : As mentioned earlier. NERVOUS SYSTEM: Diffusely weak. CURRENT MEDICATIONS: 1. Jefferson 5 mg q.8 p.r.n. 2. Lipitor 40 mg. 3. Vitamin D3. 4. Zantac. 5. Lexapro 10 mg. 6. Iron sulfate. 7. Gabapentin. 8. Hydralazine 25 mg p.o. b.i.d. 9. Dilaudid. 10.NovoLog. 11.Levemir 12 units subcu q.h.s. 12.Lopressor 50 mg p.o. b.i.d. 13.Multivitamin one p.o. daily. 14.Narcan 0.2 mg q.2 p.r.n. 15.Zofran 4 mg q.8 p.r.n. 16.Protonix 40 mg with breakfast. PHYSICAL EXAM: Patient is alert, oriented x2. Pulse 67, blood pressure 147/60, respiration 21, temperature 98.8, pulse ox 96% on room air. HEENT: Conjunctivae normal. Oral mucosa moist. NECK: No jugular venous distention. No lymph node enlargement. CARDIOVASCULAR: S1, S2. RESPIRATORY: Diminished breath sounds at the bases. Bilateral scattered rhonchi and crackles. Expiratory wheezing also present. ABDOMEN: Soft, nontender. No mass palpable. Obese. LEGS: Bilateral leg ulcers. NERVOUS SYSTEM: No focal deficits. Diffusely weak. LAB STUDIES: WBC 10.8, hemoglobin is 8.2, sodium 136, potassium 5.5, creatinine is 1.13, BUN is 73. ASSESSMENT: 1. Abdominal discomfort as well as diarrhea, possibly acute infective gastroenteritis with severe dehydration present on admission. 2. Anemia, possibly acute on chronic blood loss anemia multifactorial status post transfusion. 3. Acute renal failure, possibly acute prerenal factors, acute tubular necrosis. 4. Severe musculoskeletal pain, acute on chronic. 5. Severe hyperkalemia secondary to renal failure. 6. History of chronic kidney disease stage 3 baseline. 7. Hyponatremia. 8. Increased WBC, possibly reactive. 9. History of atrial fibrillation, chronic. 10.History of coronary artery disease, stent. 11.History of congestive heart failure with chronic diastolic dysfunction. 12.History of chronic obstructive pulmonary disease. 13.History of diabetes type 2. 14.Hypertension. 15.Hyperlipidemia. 16.Gait dysfunction. 17.Peripheral vascular disease. 18.History of degenerative joint disease. 19.History of sleep apnea. 20.History of CPAP. 21.History of nicotine dependence. 22.Obesity with body mass of 33.8. 23.Severe mitral regurgitation, severe calcified mitral stenosis, status post repair in October of 2018. 24.Bilateral lower extremity cellulitis with peripheral vascular disease. 25.Diabetic peripheral neuropathy. 26.FULL CODE. RECOMMENDATIONS AND DISCUSSION: In this 74-year-old gentleman who presented with multiple complex medical issues, we will monitor the patient closely, continue the current management and symptomatic treatment. I would provide an extra 0.5 mg of Dilaudid. Continue to monitor. Potassium is still elevated but the creatinine is improving at this time. Continue the rest of medications. Continue with bicarb drip and DVT prophylaxis. The overall prognosis is guarded because of multiple complex medical issues. Further recommendations to follow. MMKARLAL / GORDYN: [id number] /
[2019-05-12 16:44] LABS: Glucose,Whole Blood 144 mg/dL (75-99)
[2019-05-12] MEDS: MULTIVITAMINS, THERA 1 EACH TAB PO SCH (16:59)
[2019-05-12] MEDS: CHOLECALCIFEROL 1,000 UNIT TAB PO SCH (16:59)
[2019-05-12 20:04] LABS: Glucose,Whole Blood 225 mg/dL (75-99)
[2019-05-12] MEDS: ATORVASTATIN 40 MG TAB PO SCH (20:13)
[2019-05-12] MEDS: INSULIN DETEMIR (LEVEMIR) 100 UNIT/ML SYR SQ SCH (20:13)
[2019-05-12] MEDS: ESCITALOPRAM 10 MG TAB PO SCH (20:13)
[2019-05-12] MEDS: HEPARIN SODIUM,PORCINE 5,000 UNIT/ML 1 ML VIAL SQ SCH (20:14)
--- NOTE | 2019-05-12 22:24 | PN ---
PROGRESS NOTE DATE OF SERVICE: 05/12/2019 REASON FOR FOLLOWUP: Bilateral lower extremity wounds. INTERVAL HISTORY: The patient is currently afebrile, has been breathing comfortably. Denies any chest pain or cough. No nausea, vomiting, abdominal pain. He did have pain to the leg, but no worsening. PHYSICAL EXAMINATION: Blood pressure 150/70 with a pulse of 55, temperature 98.6. He is 100% on 2 L nasal cannula. General description is an elderly male lying in bed in no distress. Respiratory system: Unlabored breathing. Clear to auscultation anteriorly. Heart S1, S2. Regular rate and rhythm. Abdomen soft. No tenderness. Legs are currently wrapped up. No obvious drainage on the dressing. LABS: Hemoglobin 8.1, white count 10.8. BUN of 7 with a creatinine of 1.13. DIAGNOSTIC IMPRESSION AND PLAN: Patient with bilateral lower extremity wound, superficial with no evidence of any cellulitis. Culture from the ankle wound did not have any features of cellulitis, more likely colonization of the wound. Recommend local wound care to continue with Aquacel Silver dressing to wound with no slough and central wound and slough tissue. Continue with Zi wrap to keep the swelling down and continue supportive care. MMODL / IJN: [id number] /
[2019-05-13 06:53] LABS: Glucose,Whole Blood 183 mg/dL (75-99)
[2019-05-13 07:27] LABS: Anisocytosis Slight; Basophils % (A) 0 %; Eosinophils # (A) 0.3 k/uL (0-0.7); Eosinophils % (A) 3 %; HCT 27.9 % (39.0-53.0); HGB 8.7 gm/dL (13.0-17.5); Hypochromasia Moderate; Lymphocytes # (A) 0.7 k/uL (1.0-4.8); Lymphocytes % (A) 8 %; MCH 30.5 pg (25.0-35.0); MCHC 31.2 g/dL (31.0-37.0); MCV 97.7 fL (80.0-100.0); Macrocytosis Slight; Mean Platelet Volume 7.5; Monocytes # (A) 0.8 k/uL (0-1.0); Monocytes % (A) 9 %; Neutrophils # (A) 7.1 k/uL (1.3-7.7); Neutrophils % (A) 77 %; Platelet Count 317 k/uL (150-450); Poikilocytosis Slight; RBC 2.86 m/uL (4.30-5.90); RDW 17.5 % (11.5-15.5); WBC 9.2 k/uL (3.8-10.6)
[2019-05-13] MEDS: INSULIN ASPART (NovoLOG) 100 UNIT/ML VIAL SQ SCH ×4 (07:32→20:51)
[2019-05-13] MEDS: HYDROcodone/APAP 5-325MG 1 EACH TAB PO SCH ×3 (07:32→22:42)
[2019-05-13] MEDS: GABAPENTIN 100 MG CAP PO SCH ×2 (07:35→20:49)
[2019-05-13] MEDS: HEPARIN SODIUM,PORCINE 5,000 UNIT/ML 1 ML VIAL SQ SCH ×2 (07:35→20:50)
[2019-05-13] MEDS: PANTOPRAZOLE 40 MG TABLET PO SCH (07:35)
[2019-05-13] MEDS: hydrALAZINE HCL 25 MG TAB PO SCH ×2 (07:35→20:50)
[2019-05-13] MEDS: METOPROLOL TARTRATE 50 MG TAB PO SCH ×2 (07:35→20:49)
[2019-05-13] MEDS: COLLAGENASE 250 UNIT/GM OINTMENT 30 GM TUBE TOPICAL SCH (07:36)
[2019-05-13 07:39] LABS: Calcium 8.4 mg/dL (8.4-10.2); Potassium 5.4 mmol/L (3.5-5.1)
[2019-05-13] MEDS: SODIUM FERRIC GLUCONAT-SUCROSE 125 MG in SODIUM CHLORIDE 0.9% 100 ML IVPB SCH (08:37)
[2019-05-13] MEDS: HYDROmorphone 0.5 MG/0.5 ML SYRINGE IVP PRN ×2 (10:55→20:50)
[2019-05-13 11:58] LABS: Glucose,Whole Blood 167 mg/dL (75-99)
[2019-05-13] MEDS ORDERED: HYDROmorphone 0.5 MG/0.5 ML SYRINGE IVP STA (12:30)
--- NOTE | 2019-05-13 12:43 | P.PN ---
Subjective Patient is seen in follow-up for acute kidney injury on chronic kidney disease. Renal function continues to improve. He has been voiding. No vomiting or diarrhea. No changes overnight. Hemodynamically stable. Vital signs are stable. General: The patient appeared well nourished and normally developed. HEENT: Head exam is unremarkable. Neck is without jugular venous distension. LUNGS: Lungs are clear to auscultation and percussion. Breath sounds decreased. HEART: Rate and Rhythm are regular. First and second heart sounds normal. No murmurs, rubs or gallops. ABDOMEN: Abdominal exam reveals normal bowel sounds. Non-tender and non-disten ded. EXTREMITITES: No clubbing, cyanosis, or edema. Resolved. No drainage noted. Objective - Vital Signs Vital signs: Vital Signs Temp 98 F 05/13/19 07:09 Pulse 61 05/13/19 07:09 Resp 17 05/13/19 07:09 BP 145/68 05/13/19 07:09 Pulse Ox 100 05/13/19 07:09 Intake & Output 05/12/19 05/13/19 05/13/19 18:59 06:59 18:59 Intake Total 250 Balance 250 Weight 68 kg 93.8 kg Intake: Oral 250 Other: Voiding Method Urinal Urinal # Voids 3 2 1 # Bowel Movements 1 - Labs CBC & Chem 7: 05/13/19 06:57 05/13/19 06:57 Labs: Abnormal Lab Results - Last 24 Hours (Table) 05/12/19 05/12/19 05/13/19 Range/Units 16:31 20:02 06:51 RBC (4.30-5.90) m/uL Hgb (13.0-17.5) gm/dL Hct (39.0-53.0) % RDW (11.5-15.5) % Lymphocytes # (1.0-4.8) k/uL Potassium (3.5-5.1) mmol/L BUN (9-20) mg/dL Glucose (74-99) mg/dL POC Glucose (mg/dL) 144 H 225 H 183 H (75-99) mg/dL 05/13/19 05/13/19 05/13/19 Range/Units 06:57 06:57 11:56 RBC 2.86 L (4.30-5.90) m/uL Hgb 8.7 L (13.0-17.5) gm/dL Hct 27.9 L (39.0-53.0) % RDW 17.5 H (11.5-15.5) % Lymphocytes # 0.7 L (1.0-4.8) k/uL Potassium 5.4 H (3.5-5.1) mmol/L BUN 64 H (9-20) mg/dL Glucose 162 H (74-99) mg/dL POC Glucose (mg/dL) 167 H (75-99) mg/dL Assessment and Plan Plan: Assessment: 1. Acute kidney injury mostly prerenal secondary to anemia and intravascular volume depletion, improving with IV hydration. Creatinine 1.05 today. 2. Chronic kidney disease stage III secondary to diabetic kidney disease and nephrosclerosis with baseline creatinine near 1.5-1.6. 3. Hyperkalemia secondary to acute kidney injury and GI bleed. Also component of acidosis. Stable. 4. Hypovolemia improved with IV hydration. 5. Insulin-dependent diabetes mellitus. 6. Hypertension with chronic kidney disease. Controlled. 7. Anemia of chronic kidney disease. Iron deficiency noted. Maintained on Aranesp. Plan: Remains off IV fluids. IV iron 3 doses. Third dose today. Avoid nephrotoxins. Repeat electrolytes in the morning. Maintain low potassium diet.
--- NOTE | 2019-05-13 12:50 | PN ---
PROGRESS NOTE DATE OF SERVICE: 05/13/2019 REASON FOR FOLLOWUP VISIT: Bandaged lower extremity wound and left foot wound. INTERVAL HISTORY: The patient is currently afebrile, has been breathing comfortably. Denies having any chest pain, shortness of breath with cough or any worsening pain to the leg wound area. PHYSICAL EXAMINATION: Blood pressure 144/60 with a pulse of 51, temperature 98, he is 100% on 2 L. General description is an elderly male up in the chair, in no distress. Examination of the lower extremity, especially wound on the ankle area and more macerations, some sluff, but no redness. No foul smelling. LABS: Hemoglobin is 8.0, white count 9.2, BUN of 64, creatinine 1.05. Wound culture with Klebsiella and Pseudomonas. DIAGNOSTIC IMPRESSION AND PLAN: Patient with bilateral lower extremity wound. This patient has more maceration of the left medial ankle area, but no redness. Culture more likely representing possible colonization or contamination as the patient does not have any fever or elevated white count. Recommend local wound care to continue in the form of Santyl to the wound and Aquacel dressing to the wound with no slough followed by an Zi wrap. No need for systemic antibiotic therapy. Continue supportive care. MMODL / IJN: [id number] /
--- NOTE | 2019-05-13 16:27 | P.PN ---
Subjective Progress Note Date: 05/13/19 Principal diagnosis: This is a 74-year-old male who was recently admitted with abdominal pain and acute gastritis and also renal failure with some hyperkalemia and is being closely monitored. Patient was also experiencing a change in mental status. Multiple medical consultations are following. Patient is slated to have a procedure with Dr. Galindo this Monday. Patient continues to be on IV antibiotics and infectious disease is following. Wound care is following as well. Had a lengthy discussion with the family at the bedside and are working on possible placement at a rehab facility for continued PT/OT along with wound care. Authorization is pending at this time. No reports of chest pain or palpitations. Patient is afebrile. No reports of nausea or vomiting patient is tolerating diet. Objective - Vital Signs Vital signs: Vital Signs Temp 97.6 F 05/13/19 13:33 Pulse 59 L 05/13/19 13:33 Resp 16 05/13/19 13:33 BP 139/64 05/13/19 13:33 Pulse Ox 99 05/13/19 13:33 Intake & Output 05/12/19 05/13/19 05/13/19 18:59 06:59 18:59 Intake Total 250 Balance 250 Weight 68 kg 93.8 kg Intake: Oral 250 Other: Voiding Method Urinal Urinal # Voids 3 2 1 # Bowel Movements 1 - Exam Gen: This is a 74-year-old male sitting up in the chair, awake, alert and oriented 3, well-developed, well-nourished. Temp is 97.6F, pulse is 59, respirations are 16, blood pressure is 139/64, oxygen saturation is 99% on 2 L via nasal cannula. HEENT: Head is atraumatic, normocephalic. Pupils equal, round. Sclerae is anicteric. NECK: Supple. No JVD. No lymphadenopathy. No thyromegaly. LUNGS: Diminished breath sounds at the bases with some scattered rhonchi and expiratory wheezing noted on exam. No intercostal retractions. HEART: S1, S2 are muffled ABDOMEN: Soft. Bowel sounds are present. No masses. No tenderness. EXTREMITIES: No pedal edema. No calf tenderness. Bilateral leg ulcers noted with Kerlix dressing that is dry and intact NEUROLOGICAL: Patient is awake, alert and oriented x3. Cranial nerves 2 through 12 are grossly intact. Diffuse weakness noted - Labs CBC & Chem 7: 05/13/19 06:57 05/13/19 06:57 Labs: Abnormal Lab Results - Last 24 Hours (Table) 05/12/19 05/12/19 05/13/19 Range/Units 16:31 20:02 06:51 RBC (4.30-5.90) m/uL Hgb (13.0-17.5) gm/dL Hct (39.0-53.0) % RDW (11.5-15.5) % Lymphocytes # (1.0-4.8) k/uL Potassium (3.5-5.1) mmol/L BUN (9-20) mg/dL Glucose (74-99) mg/dL POC Glucose (mg/dL) 144 H 225 H 183 H (75-99) mg/dL 05/13/19 05/13/19 05/13/19 Range/Units 06:57 06:57 11:56 RBC 2.86 L (4.30-5.90) m/uL Hgb 8.7 L (13.0-17.5) gm/dL Hct 27.9 L (39.0-53.0) % RDW 17.5 H (11.5-15.5) % Lymphocytes # 0.7 L (1.0-4.8) k/uL Potassium 5.4 H (3.5-5.1) mmol/L BUN 64 H (9-20) mg/dL Glucose 162 H (74-99) mg/dL POC Glucose (mg/dL) 167 H (75-99) mg/dL Assessment and Plan Assessment: Abdominal discomfort as well as diarrhea, possible acute infective gastroenteritis with severe dehydration, present on admission , Possibly acute on chronic blood loss anemia multifactorial status post transfusion Acute renal failure, possibly acute prerenal factors, acute tubular necrosis Severe musculoskeletal pain, acute on chronic Severe hyperkalemia secondary to renal failure History of chronic kidney disease stage III baseline Hyponatremia Increased WBC, possibly reactive History of atrial fibrillation, chronic History of coronary artery disease, stent History of congestive heart failure with chronic diastolic dysfunction History of chronic obstructive pulmonary disease History of diabetes mellitus type 2 Hypertension Hyperlipidemia Gait dysfunction peripheral vascular disease History of degenerative joint disease history of sleep apnea History of CPAP History of nicotine dependence Obesity with body mass index of 33.8 Severe mitral regurgitation, severe calcified mitral stenosis, status post repair in October 2018 Bilateral lower extremity cellulitis with peripheral vascular disease Diabetic peripheral neuropathy Full code Recommendations and discussion: Recommend to continue current medications, management, and symptomatic treatment. Patient to continue with local wound care and IV antibiotics for the bilateral lower extremity ulcers. Will repeat a.m. labs. Potassium continues to be elevated and recommending low potassium diet. Due to multiple complex medical issues, prognosis is guarded. Social work following for possible rehab placement upon discharge for continued wound care along with PT/OT therapy for strength and mobility. Further recommendations to follow.
[2019-05-13] MEDS: CHOLECALCIFEROL 1,000 UNIT TAB PO SCH (16:47)
[2019-05-13] MEDS: MULTIVITAMINS, THERA 1 EACH TAB PO SCH (16:48)
[2019-05-13 17:03] LABS: Glucose,Whole Blood 213 mg/dL (75-99)
[2019-05-13 20:24] LABS: Glucose,Whole Blood 257 mg/dL (75-99)
[2019-05-13] MEDS: ESCITALOPRAM 10 MG TAB PO SCH (20:49)
[2019-05-13] MEDS: INSULIN DETEMIR (LEVEMIR) 100 UNIT/ML SYR SQ SCH (20:50)
[2019-05-13] MEDS: ATORVASTATIN 40 MG TAB PO SCH (20:50)
[2019-05-14] MEDS: HYDROmorphone 0.5 MG/0.5 ML SYRINGE IVP PRN ×2 (06:15→11:50)
[2019-05-14 07:04] LABS: Glucose,Whole Blood 120 mg/dL (75-99)
[2019-05-14] MEDS: INSULIN ASPART (NovoLOG) 100 UNIT/ML VIAL SQ SCH ×4 (07:23→21:29)
[2019-05-14 07:57] LABS: African American GFR (CKD) >90 (>60 ml/min/1.73 sqM); Anion Gap 4 mmol/L; Blood Urea Nitrogen 55 mg/dL (9-20); Calcium 8.7 mg/dL (8.4-10.2); Carbon Dioxide 24 mmol/L (22-30); Chloride 110 mmol/L (98-107); Glucose 119 mg/dL (74-99); Magnesium 2.2 mg/dL (1.6-2.3); Non-African American GFR(CKD) 80 (>60 ml/min/1.73 sqM); Potassium 5.2 mmol/L (3.5-5.1); Sodium 138 mmol/L (137-145)
[2019-05-14] MEDS: HYDROcodone/APAP 5-325MG 1 EACH TAB PO SCH ×3 (08:09→23:29)
[2019-05-14] MEDS: PANTOPRAZOLE 40 MG TABLET PO SCH (08:10)
[2019-05-14] MEDS: COLLAGENASE 250 UNIT/GM OINTMENT 30 GM TUBE TOPICAL SCH (08:10)
[2019-05-14] MEDS: HEPARIN SODIUM,PORCINE 5,000 UNIT/ML 1 ML VIAL SQ SCH ×2 (08:10→21:31)
[2019-05-14] MEDS: hydrALAZINE HCL 25 MG TAB PO SCH ×2 (08:10→21:27)
[2019-05-14] MEDS: METOPROLOL TARTRATE 50 MG TAB PO SCH ×2 (08:10→21:26)
[2019-05-14] MEDS: GABAPENTIN 100 MG CAP PO SCH ×2 (08:10→21:27)
[2019-05-14 08:15] LABS: Anisocytosis Slight; Basophils % (A) 0 %; Eosinophils # (A) 0.7 k/uL (0-0.7); Eosinophils % (A) 6 %; HGB 8.7 gm/dL (13.0-17.5); Hypochromasia Slight; Lymphocytes # (A) 1.1 k/uL (1.0-4.8); Lymphocytes % (A) 10 %; MCH 29.5 pg (25.0-35.0); MCHC 31.1 g/dL (31.0-37.0); MCV 94.6 fL (80.0-100.0); Macrocytosis Slight; Monocytes # (A) 0.8 k/uL (0-1.0); Monocytes % (A) 7 %; Neutrophils # (A) 8.2 k/uL (1.3-7.7); Neutrophils % (A) 74 %; Platelet Count 374 k/uL (150-450); Poikilocytosis Slight; RBC 2.96 m/uL (4.30-5.90); RDW 17.7 % (11.5-15.5); WBC 11.1 k/uL (3.8-10.6)
[2019-05-14] MEDS: SODIUM FERRIC GLUCONAT-SUCROSE 125 MG in SODIUM CHLORIDE 0.9% 100 ML IVPB SCH (09:21)
--- NOTE | 2019-05-14 11:05 | P.PN ---
Subjective Patient is seen in follow-up for acute kidney injury on chronic kidney disease. Renal function continues to improve. He has been voiding. No vomiting or diarrhea. No changes overnight. Hemodynamically stable. Potentially going to rehab tomorrow. Vital signs are stable. General: The patient appeared well nourished and normally developed. HEENT: Head exam is unremarkable. Neck is without jugular venous distension. LUNGS: Lungs are clear to auscultation and percussion. Breath sounds decreased. HEART: Rate and Rhythm are regular. First and second heart sounds normal. No murmurs, rubs or gallops. ABDOMEN: Abdominal exam reveals normal bowel sounds. Non-tender and non- distended. EXTREMITITES: No clubbing, cyanosis, or edema. Wrapped. No drainage noted. Objective - Vital Signs Vital signs: Vital Signs Temp 98 F 05/14/19 07:00 Pulse 65 05/14/19 07:00 Resp 18 05/14/19 07:00 BP 138/57 05/14/19 07:00 Pulse Ox 95 05/14/19 07:00 Intake & Output 05/13/19 05/14/19 05/14/19 18:59 06:59 18:59 Output Total 600 Balance -600 Weight 94.2 kg Output: Urine 600 Other: Voiding Method Urinal Urinal # Voids 1 2 # Bowel Movements 1 - Labs CBC & Chem 7: 05/14/19 06:39 05/14/19 06:39 Labs: Abnormal Lab Results - Last 24 Hours (Table) 05/13/19 05/13/19 05/13/19 Range/Units 11:56 17:00 20:22 WBC (3.8-10.6) k/uL RBC (4.30-5.90) m/uL Hgb (13.0-17.5) gm/dL Hct (39.0-53.0) % RDW (11.5-15.5) % Neutrophils # (1.3-7.7) k/uL Potassium (3.5-5.1) mmol/L Chloride (98-107) mmol/L BUN (9-20) mg/dL Glucose (74-99) mg/dL POC Glucose (mg/dL) 167 H 213 H 257 H (75-99) mg/dL 05/14/19 05/14/19 05/14/19 Range/Units 06:39 06:39 06:58 WBC 11.1 H (3.8-10.6) k/uL RBC 2.96 L (4.30-5.90) m/uL Hgb 8.7 L (13.0-17.5) gm/dL Hct 28.0 L (39.0-53.0) % RDW 17.7 H (11.5-15.5) % Neutrophils # 8.2 H (1.3-7.7) k/uL Potassium 5.2 H (3.5-5.1) mmol/L Chloride 110 H (98-107) mmol/L BUN 55 H (9-20) mg/dL Glucose 119 H (74-99) mg/dL POC Glucose (mg/dL) 120 H (75-99) mg/dL Assessment and Plan Plan: Assessment: 1. Acute kidney injury mostly prerenal secondary to anemia and intravascular volume depletion, improving with IV hydration. Creatinine 0.93 today. 2. Chronic kidney disease stage III secondary to diabetic kidney disease and ne phrosclerosis with baseline creatinine near 1.5-1.6. 3. Hyperkalemia secondary to acute kidney injury and GI bleed. Also component of acidosis. Stable. 4. Hypovolemia improved with IV hydration. 5. Insulin-dependent diabetes mellitus. 6. Hypertension with chronic kidney disease. Controlled. 7. Anemia of chronic kidney disease. Iron deficiency noted - s/p 3 doses of IV iron. Maintained on Aranesp. Plan: Remains off IV fluids. Avoid nephrotoxins. Repeat electrolytes in the morning. Maintain low potassium diet. Stable for discharge from nephrology standpoint.
[2019-05-14 12:00] LABS: Glucose,Whole Blood 258 mg/dL (75-99)
--- NOTE | 2019-05-14 15:30 | PN ---
PROGRESS NOTE DATE OF SERVICE: 05/14/2019 REASON FOR FOLLOWUP: Bilateral lower extremity wound and positive wound culture. INTERVAL HISTORY: The patient is currently afebrile. The patient seemed to be very upset that he is not getting enough pain medication though even he did get a lot before and after his dressing changes and wanted the pain medication to be up. Dressing was changed by the nurse earlier, mentioned no significant change from yesterday with no redness. The patient denies any chest pain. Nor any cough. No abdominal pain, no diarrhea. PHYSICAL EXAMINATION: Blood pressure 130/57 with a pulse of 65, temperature of 98, he is 95% on 2 L nasal cannula. General description is an elderly male, up in the chair in no distress. Both lower extremities currently wrapped up as mentioned. No significant redness or any foul-smelling drainage. LABS: Hemoglobin 8.1, white count of 11.1, BUN of 55, creatinine 0.93. DIAGNOSTIC IMPRESSION AND PLAN: Patient with bilateral lower extremity ulcers on the leg. Those wounds have drying out; however, has more resolution of the wound on the left medial ankle area with no redness. The patient's wound culture positive more likely representing a colonization of infection. The patient has no cellulitis clinically. No white count or fever, hence recommend local wound care as ordered. ID will signoff. Further wound care per the wound care nurse. Continue supportive care. MMODL / IJN: [id number] /
--- NOTE | 2019-05-14 15:49 | P.PN ---
Subjective Progress Note Date: 05/14/19 Principal diagnosis: This is a 74-year-old male who was recently admitted with abdominal pain and acute gastritis and also renal failure with some hyperkalemia and is being closely monitored. Patient was also experiencing a change in mental status. Multiple medical consultations are following. Patient is slated to have a procedure with Dr. Galindo this Monday. Patient continues to be on IV antibiotics and infectious disease is following. Wound care is following as well. Had a lengthy discussion with the family at the bedside and are working on possible placement at a rehab facility for continued PT/OT along with wound care. Authorization is pending at this time. No reports of chest pain or palpitations. Patient is afebrile. No reports of nausea or vomiting patient is tolerating diet. 05/14/2019 Patient is seen and evaluated in follow-up today and continues to have extensive pain of bilateral lower extremities. Patient is to continue with local wound care and daily dressing changes. Infectious disease is following. Pain medications have been adjusted. Will continue to monitor closely. Patient awaiting for procedure with Dr. Galindo in the morning. Will continue with PT/OT along with wound care. Once patient is stabilized and discharge patient will be going to [facility]. No reports of chest pain or palpitations. Patient has been afebrile. Patient denies any nausea or vomiting and is tolerating diet. Objective - Vital Signs Vital signs: Vital Signs Temp 98.3 F 05/14/19 15:00 Pulse 57 L 05/14/19 15:00 Resp 18 05/14/19 15:00 BP 145/60 05/14/19 15:00 Pulse Ox 98 05/14/19 15:00 Intake & Output 05/13/19 05/14/19 05/14/19 18:59 06:59 18:59 Output Total 600 Balance -600 Weight 94.2 kg Output: Urine 600 Other: Voiding Method Urinal Urinal # Voids 1 2 # Bowel Movements 1 - Exam Gen: This is a 74-year-old male sitting up in the chair, awake, alert and orien fabiano 3, well-developed, well-nourished. Temp is 98.3, pulse is 77, respirations are 18, blood pressure is 45/60, oxygen saturation is 98% on room air. HEENT: Head is atraumatic, normocephalic. Pupils equal, round. Sclerae is anicteric. NECK: Supple. No JVD. No lymphadenopathy. No thyromegaly. LUNGS: Diminished breath sounds at the bases with some scattered rhonchi and expiratory wheezing noted on exam. No intercostal retractions. HEART: S1, S2 are muffled ABDOMEN: Soft. Bowel sounds are present. No masses. No tenderness. EXTREMITIES: No pedal edema. No calf tenderness. Bilateral leg ulcers noted with Kerlix dressing that is dry and intact NEUROLOGICAL: Patient is awake, alert and oriented x3. Cranial nerves 2 through 12 are grossly intact. Diffuse weakness noted - Labs CBC & Chem 7: 05/14/19 06:39 05/14/19 06:39 Labs: Abnormal Lab Results - Last 24 Hours (Table) 05/13/19 05/13/19 05/14/19 Range/Units 17:00 20:22 06:39 WBC 11.1 H (3.8-10.6) k/uL RBC 2.96 L (4.30-5.90) m/uL Hgb 8.7 L (13.0-17.5) gm/dL Hct 28.0 L (39.0-53.0) % RDW 17.7 H (11.5-15.5) % Neutrophils # 8.2 H (1.3-7.7) k/uL Potassium (3.5-5.1) mmol/L Chloride (98-107) mmol/L BUN (9-20) mg/dL Glucose (74-99) mg/dL POC Glucose (mg/dL) 213 H 257 H (75-99) mg/dL 05/14/19 05/14/19 05/14/19 Range/Units 06:39 06:58 11:54 WBC (3.8-10.6) k/uL RBC (4.30-5.90) m/uL Hgb (13.0-17.5) gm/dL Hct (39.0-53.0) % RDW (11.5-15.5) % Neutrophils # (1.3-7.7) k/uL Potassium 5.2 H (3.5-5.1) mmol/L Chloride 110 H (98-107) mmol/L BUN 55 H (9-20) mg/dL Glucose 119 H (74-99) mg/dL POC Glucose (mg/dL) 120 H 258 H (75-99) mg/dL Assessment and Plan Assessment: Abdominal discomfort as well as diarrhea, possible acute infective gastroenteritis with severe dehydration, present on admission , Possibly acute on chronic blood loss anemia multifactorial status post transfusion Acute renal failure, possibly acute prerenal factors, acute tubular necrosis Severe musculoskeletal pain, acute on chronic Severe hyperkalemia secondary to renal failure History of chronic kidney disease stage III baseline Hyponatremia Increased WBC, possibly reactive History of atrial fibrillation, chronic History of coronary artery disease, stent History of congestive heart failure with chronic diastolic dysfunction History of chronic obstructive pulmonary disease History of diabetes mellitus type 2 Hypertension Hyperlipidemia Gait dysfunction peripheral vascular disease History of degenerative joint disease history of sleep apnea History of CPAP History of nicotine dependence Obesity with body mass index of 33.8 Severe mitral regurgitation, severe calcified mitral stenosis, status post repair in October 2018 Bilateral lower extremity cellulitis with peripheral vascular disease Diabetic peripheral neuropathy Full code Recommendations and discussion: Recommend to continue current medications, management, and symptomatic treatment. Patient to continue with local wound care for the bilateral lower extremity ulcers. Will repeat a.m. labs. Continue with low potassium diet. Pain medications have been adjusted. Patient is scheduled to undergo procedure with Dr. Galindo tomorrow afternoon. Due to multiple complex medical issues, prognosis is guarded. Social work following for possible rehab placement upon discharge for continued wound care along with PT/OT therapy for strength and mobility. Patient will be going to [facility] once stabilized and discharged. Further recommendations to follow. Possible discharge in 24-48 hours.
[2019-05-14] MEDS: CHOLECALCIFEROL 1,000 UNIT TAB PO SCH (16:44)
[2019-05-14] MEDS: MULTIVITAMINS, THERA 1 EACH TAB PO SCH (16:44)
[2019-05-14 17:13] LABS: Glucose,Whole Blood 218 mg/dL (75-99)
[2019-05-14 19:57] LABS: Glucose,Whole Blood 196 mg/dL (75-99)
[2019-05-14] MEDS: ATORVASTATIN 40 MG TAB PO SCH (21:26)
[2019-05-14] MEDS: ESCITALOPRAM 10 MG TAB PO SCH (21:28)
[2019-05-14] MEDS: INSULIN DETEMIR (LEVEMIR) 100 UNIT/ML SYR SQ SCH (21:30)
[2019-05-15] MEDS: HYDROmorphone 0.5 MG/0.5 ML SYRINGE IVP PRN ×4 (01:12→22:11)
[2019-05-15 07:00] LABS: Glucose,Whole Blood 95 mg/dL (75-99)
[2019-05-15] MEDS: INSULIN ASPART (NovoLOG) 100 UNIT/ML VIAL SQ SCH ×4 (07:18→21:17)
[2019-05-15] MEDS: METOPROLOL TARTRATE 50 MG TAB PO SCH ×2 (08:57→21:14)
[2019-05-15] MEDS: HEPARIN SODIUM,PORCINE 5,000 UNIT/ML 1 ML VIAL SQ SCH ×2 (08:57→21:14)
[2019-05-15] MEDS: hydrALAZINE HCL 25 MG TAB PO SCH ×2 (08:57→21:13)
[2019-05-15] MEDS: GABAPENTIN 100 MG CAP PO SCH ×2 (08:57→21:13)
[2019-05-15] MEDS: HYDROcodone/APAP 5-325MG 1 EACH TAB PO SCH ×3 (08:57→23:09)
[2019-05-15] MEDS: PANTOPRAZOLE 40 MG TABLET PO SCH (08:57)
[2019-05-15] MEDS: COLLAGENASE 250 UNIT/GM OINTMENT 30 GM TUBE TOPICAL SCH (10:53)
[2019-05-15] MEDS ORDERED: ASPIRIN 325 MG TAB PO STA (11:22)
--- NOTE | 2019-05-15 11:29 | P.CRDCN ---
History of Present Illness History of present illness: HISTORY OF PRESENTING ILLNESS This is a pleasant 74-year-old male past medical history significant for with her heart disease status post mitral valve repair, peripheral vascular disease, chronic kidney disease, COPD, diabetes mellitus, hypertension, coronary artery disease status post PCI of the LAD, venous insufficiency and chronic diastolic heart failure. He follows in the office with Dr. Deng. We have been asked to see in consultation for peripheral vascular disease. He initially presented to the hospital 05/07/2019 for persistent diarrhea, decreased oral intake and overall fatigue. During the course of his stay he has undergone EGD with Dr. Andrews revealing gastritis. He also was found to have acute kidney injury. Nephrology has been following. His renal function has improved. He was previously scheduled for a planned intervention with Dr. Galindo today of his lower extremities. He is seen and examined sitting up in the chair in no acute distress. He denies chest pain, dizziness, shortness of breath or n/v. He has bilateral lower extremity dressings in place. Laboratory data reviewed, WBC 11.1, hemoglobin 8.7, platelets 374, sodium 138, potassium 5.2, creatinine 0.93 with a GFR of 80. Currently maintained on atorvastatin 40 mg at bedtime, hydralazine 25 mg twice a day, metoprolol 50 mg twice a day. At home he was also on aspirin 81 mg daily, plavix 75 mg daily aldactone 25 mg daily and lasix 80 mg BID. REVIEW OF SYSTEMS At the time of my exam: CONSTITUTIONAL: Denies fever or chills. CARDIOVASCULAR: Denies chest pain, shortness of breath, orthopnea, PND or palpitations. RESPIRATORY: Denies cough. GASTROINTESTINAL: Denies abdominal pain, diarrhea, constipation, nausea or vomiting. MUSCULOSKELETAL: Denies myalgias. NEUROLOGIC: Denies numbness, tingling or weakness. ENDOCRINE: Denies fatigue, weight change, polydipsia or polyurina. GENITOURINARY: Denies burning, hematuria or urgency with micturation. HEMATOLOGIC: Denies history of anemia or bleeding. PHYSICAL EXAMINATION Blood pressure 152/80 heart rate 61 afebrile and maintaining oxygen saturation on room air. CONSTITUTIONAL: No apparent distress. HEENT: Head is normocephalic. Pupils are equal, round. Sclerae anicteric. Mucous membranes of the mouth are moist. No JVD. No carotid bruit. CHEST EXAMINATION: Lungs are clear to auscultation. No chest wall tenderness is noted on palpation or with deep breathing. Diminished bilaterally. HEART EXAMINATION: Regular rate and rhythm. S1, S2 heard. Systolic ejection murmur at the apex, no gallops or rub. ABDOMEN: Soft, nontender. Positive bowel sounds. EXTREMITIES: Bilateral lower extremity dressing in place. Faint pulse palpated. NEUROLOGIC EXAMINATION: Patient is awake, alert and oriented x3. ASSESSMENT Peripheral vascular disease Acute on chronic kidney injury secondary to intravascular volume depletion, improved Gastritis Hyperkalemia Anemia of chronic kidney disease s/p transfusion of 2 units of PRBC's Chronic bilateral lower extremity nonhealing ulcerations History of coronary artery disease status post PCI Valvular heart disease status post mitral valve repair COPD Diabetes mellitus Hypertension Chronic diastolic heart failure, currently euvolemic PLAN Kidney function has been stable for the previous 3 days. Stable to proceed with PTCA with Dr. Galindo. Resume aspirin at 81 mg daily, give 325 today prior to procedure. Thank you kindly for this consultation. Nurse Practitioner note has been reviewed, I agree with a documented findings and plan of care. Patient was seen and examined. Past Medical History Past Medical History: Atrial Fibrillation, Coronary Artery Disease (CAD), Heart Failure, COPD, Diabetes Mellitus, Eye Disorder, Hyperlipidemia, Hypertension, Os teoarthritis (OA), Renal Disease, Respiratory Disorder, Sleep Apnea/CPAP/BIPAP Additional Past Medical History / Comment(s): Chronic anemia/procrit, CKD stage III, pulmonary HTN, home oxygen ATC, decreased vision bilaterally since CABG surgery, bilateral starting of cataracts, IDDM type II, neuropathy bilateral legs/feet, chronic bilateral leg/foot pain, severe PVD, past bilateral lower leg/foot wounds and cellulitis, current bilateral lower leg wounds, sepsis d/t leg wounds, mild gastritis, diverticular disease. History of Any Multi-Drug Resistant Organisms: None Reported Past Surgical History: Adenoidectomy, Cardiac Valve Replacement, Heart Catheterization, Heart Catheterization With Stent, Tonsillectomy Additional Past Surgical History / Comment(s): 04/22/19 L leg angiogram, FAUSTINO, mitral valve repair 10/31/18, EGD, colonoscopies. Past Anesthesia/Blood Transfusion Reactions: No Reported Reaction Additional Past Anesthesia/Blood Transfusion Reaction / Comment(s): Pt has received blood in past without reaction. Date of Last Stent Placement:: September 2018 Smoking Status: Former smoker - Past Family History Father Family Medical History: Cancer, Diabetes Mellitus Additional Family Medical History / Comment(s): BLADDER CANCER Mother Family Medical History: Congestive Heart Failure (CHF) Additional Family Medical History / Comment(s): AT AGE 68 Medications and Allergies Home Medications Medication Instructions Recorded Confirmed Type Cholecalciferol [Vitamin D3 (25 2,000 unit PO DAILY@1700 01/04/16 05/07/19 History Mcg = 1000 Iu)] Ferrous Sulfate [Iron (65 MG 325 mg PO DAILY 01/04/16 05/07/19 History Elemental)] L.acidoph,Paracasei, B.lactis 1 cap PO DAILY@1700 01/04/16 05/07/19 History [Probiotic] Multivitamins, Thera [Multivitamin 1 tab PO DAILY@1700 01/09/17 05/07/19 History (formulary)] Zinc 50 mg PO DAILY@1700 07/17/18 05/07/19 History Albuterol Inhaler [Ventolin Hfa 1 - 2 puff INHALATION RT-Q6H PRN 11/11/18 05/07/19 Rx Inhaler] #1 inhaler Aspirin 81 mg PO DAILY@1700 11/29/18 05/07/19 History Magnesium Hydroxide [Milk of 2,400 mg PO DAILY PRN 11/29/18 05/07/19 History Magnesia] Metoprolol Tartrate [Lopressor] 50 mg PO BID 11/29/18 05/07/19 History Atorvastatin [Lipitor] 40 mg PO HS tab 12/13/18 05/07/19 Rx Escitalopram [Lexapro] 10 mg PO HS tab 12/13/18 05/07/19 Rx Clopidogrel [Plavix] 75 mg PO DAILY@0900 12/23/18 05/07/19 History Furosemide [Lasix] 80 mg PO BID@0900,1600 #60 tab 01/18/19 05/07/19 Rx Insulin Detemir (Levemir) [Levemir] 12 unit SQ HS syr 01/18/19 05/07/19 Rx Spironolactone [Aldactone] 25 mg PO DAILY #30 tab 01/18/19 05/07/19 Rx hydrALAZINE HCL [Apresoline] 25 mg PO BID #60 tab 01/18/19 05/07/19 Rx Gabapentin [Neurontin] 100 mg PO BID@0900,2100 #6 cap 01/23/19 05/07/19 Rx Magnesium Oxide [Mag-Ox] 400 mg PO BID 30 Days #60 tab 01/23/19 05/07/19 Rx Collagenase [Santyl] 1 applic TOPICAL DAILY 04/17/19 05/07/19 History INSULIN LISPRO (humaLOG) [humaLOG] See Protocol SQ ACHS 04/17/19 05/07/19 History Hydrocodone/Acetaminophen [Harrah 1 tab PO Q8H 05/07/19 05/07/19 History 5-325] Allergies Allergy/AdvReac Type Severity Reaction Status Date / Time No Known Allergies Allergy Verified 05/07/19 11:05 Physical Exam Vitals: Vital Signs Temp Pulse Resp BP Pulse Ox 05/15/19 07:00 97.6 F 61 14 152/80 97 05/15/19 03:58 18 05/15/19 02:00 98.0 F 54 L 17 130/61 98 05/15/19 00:46 18 05/14/19 21:25 97.9 F 66 18 165/70 100 05/14/19 20:45 18 05/14/19 15:00 98.3 F 57 L 18 145/60 98 Intake and Output 05/14/19 05/15/19 05/15/19 22:59 06:59 14:59 Output Total 200 300 Balance -200 -300 Output: Urine 200 300 Other: Voiding Method Urinal Urinal Weight 94 kg Results 05/14/19 06:39 05/14/19 06:39 Current Medications Generic Name Dose Route Start Last Admin Trade Name Freq PRN Reason Stop Dose Admin Hydrocodone Bitart/Acetaminophen 1 each 05/07/19 15:30 05/15/19 08:57 Harrah 5-325 PO 1 each Q8H JAIME Administration Albuterol Sulfate 2.5 mg 05/07/19 15:28 Ventolin Nebulized INHALATION RT-Q6H PRN Shortness Of Breath Or Wheezing Atorvastatin Calcium 40 mg 05/07/19 21:00 05/14/19 21:26 Lipitor PO 40 mg HS JAIME Administration Cholecalciferol 2,000 unit 05/07/19 17:00 05/14/19 16:44 Vitamin D3 (25 Mcg = 1000 Iu) PO 2,000 unit DAILY@1700 [facility] Administration Collagenase 1 applic 05/08/19 16:00 05/14/19 08:10 Santyl TOPICAL 1 applic DAILY JAIME Administration Escitalopram Oxalate 10 mg 05/07/19 21:00 05/14/19 21:28 Lexapro PO 10 mg HS JAIME Administration Gabapentin 100 mg 05/07/19 21:00 05/15/19 08:57 Neurontin PO 100 mg BID@0900,2100 [facility] Administration Heparin Sodium (Porcine) 5,000 unit 05/12/19 21:00 05/15/19 08:57 Heparin SQ 5,000 unit Q12HR JAIME Administration Hydralazine HCl 25 mg 05/07/19 21:00 05/15/19 08:57 Apresoline PO 25 mg BID JAIME Administration Hydromorphone HCl 0.5 mg 05/14/19 13:05 05/15/19 06:24 Dilaudid IVP 0.5 mg Q6HR PRN Administration Pain Insulin Aspart 0 unit 05/07/19 17:30 05/15/19 07:18 Novolog SQ [facility] Insulin Detemir 12 unit 05/07/19 21:00 05/14/19 21:30 Levemir SQ 12 unit HS [facility] Administration Metoprolol Tartrate 50 mg 05/07/19 21:00 05/15/19 08:57 Lopressor PO 50 mg BID JAIME Administration Multivitamins 1 each 05/07/19 17:00 05/14/19 16:44 Theragran PO 1 each DAILY@1700 [facility] Administration Naloxone HCl 0.2 mg 05/07/19 13:57 Narcan IV Q2M PRN Opioid Reversal Ondansetron HCl 4 mg 05/07/19 13:57 Zofran IVP Q8HR PRN Nausea And Vomiting Pantoprazole Sodium 40 mg 05/12/19 07:30 05/15/19 08:57 Protonix PO 40 mg [id number] [facility] Administration Intake and Output 05/14/19 05/15/19 05/15/19 22:59 06:59 14:59 Output Total 200 300 Balance -200 -300 Output: Urine 200 300 Other: Voiding Method Urinal Urinal Weight 94 kg 05/14/19 06:39 05/14/19 06:39
[2019-05-15 11:55] LABS: Glucose,Whole Blood 97 mg/dL (75-99)
--- NOTE | 2019-05-15 15:18 | PN ---
PROGRESS NOTE The patient is seen for follow up for acute kidney injury and chronic kidney disease. His creatinine is at 0.9. The patient is scheduled for intervention on his lower extremities. PHYSICAL EXAMINATION: On examination today, blood pressure was 154/73, heart rate 52 per minute, he is afebrile. Examination of the heart: S1 and S2. Examination of the lungs: Bilateral breath sounds are heard. Decreased breath sounds at the bases. Abdomen is soft, nontender. Examination of the lower extremities shows bilateral extremities to be wrapped. LABORATORY DATA: Laboratories show sodium 138, potassium 5.2, chloride 110, BUN 55, creatinine 0.93. ASSESSMENT: 1. Acute kidney injury, currently improved, stable. 2. Peripheral vascular disease, scheduled for percutaneous transluminal coronary angioplasty by Dr. Galindo. 3. Mild hyperkalemia, fairly stable. 4. Chronic obstructive pulmonary disease. 5. Type 2 diabetes. 6. Volume overload with significant lower extremity edema. PLAN: Discontinue normal saline. Consider adding diuretics in the next two to three days. MMODL / IJN: [id number] /
--- NOTE | 2019-05-15 15:47 | P.PN ---
Subjective Progress Note Date: 05/15/19 Principal diagnosis: This is a 74-year-old male who was recently admitted with abdominal pain and acute gastritis and also renal failure with some hyperkalemia and is being closely monitored. Patient was also experiencing a change in mental status. Multiple medical consultations are following. Patient is slated to have a procedure with Dr. Galindo this Monday. Patient continues to be on IV antibiotics and infectious disease is following. Wound care is following as well. Had a lengthy discussion with the family at the bedside and are working on possible placement at a rehab facility for continued PT/OT along with wound care. Authorization is pending at this time. No reports of chest pain or palpitations. Patient is afebrile. No reports of nausea or vomiting patient is tolerating diet. 05/14/2019 Patient is seen and evaluated in follow-up today and continues to have extensive pain of bilateral lower extremities. Patient is to continue with local wound care and daily dressing changes. Infectious disease is following. Pain medications have been adjusted. Will continue to monitor closely. Patient awaiting for procedure with Dr. Galindo in the morning. Will continue with PT/OT along with wound care. Once patient is stabilized and discharge patient will be going to [facility]. No reports of chest pain or palpitations. Patient has been afebrile. Patient denies any nausea or vomiting and is tolerating diet. 05/15/2019 Patient is seen in follow-up today awaiting to undergo balloon angioplasty of the left lower extremity with Dr. Galindo although has to reschedule due to emergencies and may not possibly be able to be done until Monday. Patient continues to have bilateral lower extremity pain and pain medication has been adjusted. To continue with local wound care. Patient is not currently on any antibiotics. Nephrology is following and current creatinine is 0.93. IV fluids have been discontinued and may possibly resume diuretics tomorrow. Patient was up and working with PT/OT today and will continue at this time. Objective - Vital Signs Vital signs: Vital Signs Temp 98.3 F 05/15/19 14:18 Pulse 52 L 05/15/19 14:18 Resp 18 05/15/19 14:18 BP 154/73 05/15/19 14:18 Pulse Ox 91 L 05/15/19 14:18 Intake & Output 05/14/19 05/15/1905/15/20 18:59 06:59 18:59 Output Total 600 500 Balance -600 -500 Weight 94 kg Output: Urine 600 500 Other: Voiding Method Urinal Urinal # Voids 2 - Exam Gen: This is a 74-year-old male sitting up in the chair, awake, alert and or iented 3, well-developed, well-nourished. HEENT: Head is atraumatic, normocephalic. Pupils equal, round. Sclerae is anicteric. NECK: Supple. No JVD. No lymphadenopathy. No thyromegaly. LUNGS: Diminished breath sounds at the bases with some scattered rhonchi and expiratory wheezing noted on exam. No intercostal retractions. HEART: S1, S2 are muffled ABDOMEN: Soft. Bowel sounds are present. No masses. No tenderness. EXTREMITIES: No pedal edema. No calf tenderness. Bilateral leg ulcers noted with Kerlix dressing that is dry and intact. Foul-smelling odor of bilateral lower extremities with no signs of redness or infection noted NEUROLOGICAL: Patient is awake, alert and oriented x3. Cranial nerves 2 through 12 are grossly intact. Diffuse weakness noted - Labs CBC & Chem 7: 05/14/19 06:39 05/14/19 06:39 Labs: Abnormal Lab Results - Last 24 Hours (Table) 05/14/19 05/14/19 Range/Units 17:05 19:54 POC Glucose (mg/dL) 218 H 196 H (75-99) mg/dL Assessment and Plan Assessment: Abdominal discomfort as well as diarrhea, possible acute infective gastroente ritis with severe dehydration, present on admission Possibly acute on chronic blood loss anemia multifactorial status post transfusion Acute renal failure, possibly acute prerenal factors, acute tubular necrosis Severe musculoskeletal pain, acute on chronic Severe hyperkalemia secondary to renal failure History of chronic kidney disease stage III baseline Hyponatremia Increased WBC, possibly reactive History of atrial fibrillation, chronic History of coronary artery disease, stent History of congestive heart failure with chronic diastolic dysfunction History of chronic obstructive pulmonary disease History of diabetes mellitus type 2 Hypertension Hyperlipidemia Gait dysfunction peripheral vascular disease History of degenerative joint disease history of sleep apnea History of CPAP History of nicotine dependence Obesity with body mass index of 33.8 Severe mitral regurgitation, severe calcified mitral stenosis, status post repair in October 2018 Bilateral lower extremity cellulitis with peripheral vascular disease Diabetic peripheral neuropathy Full code Recommendations and discussion: Recommend to continue current medications, management, and symptomatic treatment. Patient to continue with local wound care for the bilateral lower extremity ulcers. Will repeat a.m. labs. IV fluids have been discontinued. Continue with low potassium diet. Pain medications have been adjusted. Patient was scheduled to undergo procedure with Dr. Galindo but is being rescheduled for possibly Monday. Due to multiple complex medical issues, prognosis is guarded. Social work following for possible rehab placement upon discharge for continued wound care along with PT/OT therapy for strength and mobility. Patient will be going to [facility] once stabilized and discharged. Further re commendations to follow.
[2019-05-15 16:58] LABS: Glucose,Whole Blood 180 mg/dL (75-99)
[2019-05-15] MEDS: MULTIVITAMINS, THERA 1 EACH TAB PO SCH (17:30)
[2019-05-15] MEDS: CHOLECALCIFEROL 1,000 UNIT TAB PO SCH (17:30)
[2019-05-15 18:47] LABS: Hemoglobin A1C 5.6 % (4.0-6.0)
[2019-05-15] MEDS: ATORVASTATIN 40 MG TAB PO SCH (21:13)
[2019-05-15] MEDS: ESCITALOPRAM 10 MG TAB PO SCH (21:14)
[2019-05-15 21:17] LABS: Glucose,Whole Blood 230 mg/dL (75-99)
[2019-05-15] MEDS: INSULIN DETEMIR (LEVEMIR) 100 UNIT/ML SYR SQ SCH (21:19)
[2019-05-16 06:40] LABS: African American GFR (CKD) >90 (>60 ml/min/1.73 sqM); Anion Gap 5 mmol/L; Blood Urea Nitrogen 42 mg/dL (9-20); Calcium 8.6 mg/dL (8.4-10.2); Carbon Dioxide 21 mmol/L (22-30); Chloride 110 mmol/L (98-107); Glucose 136 mg/dL (74-99); Non-African American GFR(CKD) 84 (>60 ml/min/1.73 sqM); Potassium 4.8 mmol/L (3.5-5.1); Sodium 136 mmol/L (137-145)
[2019-05-16 06:49] LABS: Glucose,Whole Blood 138 mg/dL (75-99)
[2019-05-16] MEDS: HYDROcodone/APAP 5-325MG 1 EACH TAB PO SCH ×2 (07:46→14:54)
[2019-05-16] MEDS: METOPROLOL TARTRATE 50 MG TAB PO SCH (07:46)
[2019-05-16] MEDS: GABAPENTIN 100 MG CAP PO SCH (07:47)
[2019-05-16] MEDS: hydrALAZINE HCL 25 MG TAB PO SCH (07:47)
[2019-05-16] MEDS: INSULIN ASPART (NovoLOG) 100 UNIT/ML VIAL SQ SCH ×2 (07:47→12:13)
[2019-05-16] MEDS: PANTOPRAZOLE 40 MG TABLET PO SCH (07:47)
[2019-05-16] MEDS: COLLAGENASE 250 UNIT/GM OINTMENT 30 GM TUBE TOPICAL SCH (07:48)
[2019-05-16] MEDS: HEPARIN SODIUM,PORCINE 5,000 UNIT/ML 1 ML VIAL SQ SCH (07:48)
[2019-05-16 08:28] VITALS: BP 150/69; PULSE 68; RESP 18; TEMP 98.4
[2019-05-16] MEDS ORDERED: ASPIRIN 81 MG PO SCH (09:00)
[2019-05-16 10:43] VITALS: BMI 33.5
--- NOTE | 2019-05-16 11:37 | P.PN ---
Subjective HISTORY OF PRESENTING ILLNESS This is a pleasant 74-year-old male past medical history significant for with her heart disease status post mitral valve repair, peripheral vascular disease, chronic kidney disease, COPD, diabetes mellitus, hypertension, coronary artery disease status post PCI of the LAD, venous insufficiency and chronic di astolic heart failure. He follows in the office with Dr. Deng. We have been asked to see in consultation for peripheral vascular disease. He initially presented to the hospital 05/07/2019 for persistent diarrhea, decreased oral intake and overall fatigue. During the course of his stay he has undergone EGD with Dr. Andrews revealing gastritis. He also was found to have acute kidney injury. Nephrology has been following. His renal function has improved. He was previously scheduled for a planned intervention with Dr. Galindo today of his lower extremities. He is seen and examined sitting up in the chair in no acute distress. He denies chest pain, dizziness, shortness of breath or n/v. He has bilateral lower extremity dressings in place. Laboratory data reviewed, WBC 11.1, hemoglobin 8.7, platelets 374, sodium 138, potassium 5.2, creatinine 0.93 with a GFR of 80. Currently maintained on atorvastatin 40 mg at bedtime, hydralazine 25 mg twice a day, metoprolol 50 mg twice a day. At home he was also on aspirin 81 mg daily, plavix 75 mg daily aldactone 25 mg daily and lasix 80 mg BID. 05/16/2019 Patient is seen and examined sitting up in the chair. His procedure was canceled yesterday as the lab was down and required maintenance. Blood pressure 150/69 heart rate 68 afebrile maintaining oxygen saturation on nasal cannula. Laboratory data reviewed, sodium 136, potassium 4.8, creatinine 0.89 with a GFR of 84. Currently maintained on aspirin 81 mg daily, atorvastatin 40 mg daily, hydralazine 25 mg twice a day and metoprolol 50 mg twice a day. PHYSICAL EXAMINATION CONSTITUTIONAL: No apparent distress. HEENT: Head is normocephalic. Pupils are equal, round. Sclerae anicteric. Mucous membranes of the mouth are moist. No JVD. No carotid bruit. CHEST EXAMINATION: Lungs are clear to auscultation. No chest wall tenderness is noted on palpation or with deep breathing. Diminished bilaterally. HEART EXAMINATION: Regular rate and rhythm. S1, S2 heard. Systolic ejection murmur at the apex, no gallops or rub. EXTREMITIES: Bilateral lower extremity dressing in place. Faint pulse palpated. ASSESSMENT Peripheral vascular disease Acute on chronic kidney injury secondary to intravascular volume depletion, improved Gastritis Hyperkalemia Anemia of chronic kidney disease s/p transfusion of 2 units of PRBC's Chronic bilateral lower extremity nonhealing ulcerations History of coronary artery disease status post PCI Valvular heart disease status post mitral valve repair COPD Diabetes mellitus Hypertension Chronic diastolic heart failure, currently euvolemic PLAN Patient is stable for discharge, his procedure will be rescheduled. We will schedule this procedure for the end of next week. He will be notified of the date and the time. Nurse Practitioner note has been reviewed, I agree with a documented findings and plan of care. Patient was seen and examined. Objective - Vital Signs Vital signs: Vital Signs Temp 98.4 F 05/16/19 07:00 Pulse 68 05/16/19 07:51 Resp 18 05/16/19 07:51 BP 150/69 05/16/19 07:00 Pulse Ox 100 05/16/19 07:00 Intake & Output 05/15/19 05/16/19 05/16/19 18:59 06:59 18:59 Output Total 200 Balance -200 Weight 94.2 kg 94.2 kg Output: Urine 200 Other: Voiding Method Urinal Urinal Urinal # Voids 2 2 - Labs CBC & Chem 7: 05/14/19 06:39 05/16/19 06:06 Labs: Abnormal Lab Results - Last 24 Hours (Table) 05/15/19 05/15/19 05/16/19 Range/Units 16:57 21:15 06:06 Sodium 136 L (137-145) mmol/L Chloride 110 H (98-107) mmol/L Carbon Dioxide 21 L (22-30) mmol/L BUN 42 H (9-20) mg/dL Glucose 136 H (74-99) mg/dL POC Glucose (mg/dL) 180 H 230 H (75-99) mg/dL 05/16/19 Range/Units 06:47 Sodium (137-145) mmol/L Chloride (98-107) mmol/L Carbon Dioxide (22-30) mmol/L BUN (9-20) mg/dL Glucose (74-99) mg/dL POC Glucose (mg/dL) 138 H (75-99) mg/dL
[2019-05-16 11:51] LABS: Glucose,Whole Blood 183 mg/dL (75-99)
--- NOTE | 2019-05-16 13:17 | P.DS ---
Providers Date of admission: 05/07/19 13:57 Attending physician: Reshma Merrill Consults: 05/07/19 14:00 Consult Physician Urgent Consulting Provider: Rona Garcia Consult Reason/Comments: Acute kidney injury and hyperkalemia Do you want consulting provider notified?: Yes 05/08/19 13:11 Consult Physician Urgent Consulting Provider: Carol Rodrigues Consult Reason/Comments: wounds Do you want consulting provider notified?: Yes 05/15/19 07:43 Consult Physician Routine Consulting Provider: Zachariah Galindo Consult Reason/Comments: PVD Do you want consulting provider notified?: Already Contacted Primary care physician: [facility] Course: 74-year-old male who was recently admitted with abdominal pain and acute gastritis and also renal failure with some hyperkalemia and is being closely m onitored. Patient was also experiencing a change in mental status. Multiple medical consultations are following. Patient is slated to have a procedure with Dr. Galindo this Monday. Patient continues to be on IV antibiotics and infectious disease is following. Wound care is following as well. Had a lengthy discussion with the family at the bedside and are working on possible placement at a rehab facility for continued PT/OT along with wound care. Authorization is pending at this time. No reports of chest pain or palpitations. Patient is afebrile. No reports of nausea or vomiting patient is tolerating diet. 05/14/2019 Patient is seen and evaluated in follow-up today and continues to have extensive pain of bilateral lower extremities. Patient is to continue with local wound care and daily dressing changes. Infectious disease is following. Pain medications have been adjusted. Will continue to monitor closely. Patient awaiting for procedure with Dr. Galindo in the morning. Will continue with PT/OT along with wound care. Once patient is stabilized and discharge patient will be going to [facility]. No reports of chest pain or palpitations. Patient has been afebrile. Patient denies any nausea or vomiting and is tolerating diet. 05/15/2019 Patient is seen in follow-up today awaiting to undergo balloon angioplasty of the left lower extremity with Dr. Galindo although has to reschedule due to emergencies and may not possibly be able to be done until Monday. Patient continues to have bilateral lower extremity pain and pain medication has been adjusted. To continue with local wound care. Patient is not currently on any antibiotics. Nephrology is following and current creatinine is 0.93. IV fluids have been discontinued and may possibly resume diuretics tomorrow. Patient was up and working with PT/OT today and will continue at this time. 05/16/2019 No one the night events and patient will undergo balloon angioplasty for his peripheral vessels as an outpatient and patient will be discharged today local wound care. I discussed regarding dosing for Lasix with nephrology patient is being resumed on Lasix at 60 mg twice a day along with 2.5 mg of metolazone twice a week Gen: This is a 74-year-old male sitting up in the chair, awake, alert and oriented 3, well-developed, well-nourished. HEENT: Head is atraumatic, normocephalic. Pupils equal, round. Sclerae is anicteric. NECK: Supple. No JVD. No lymphadenopathy. No thyromegaly. LUNGS: Diminished breath sounds at the bases with some scattered rhonchi and expiratory wheezing noted on exam. No intercostal retractions. HEART: S1, S2 are muffled ABDOMEN: Soft. Bowel sounds are present. No masses. No tenderness. EXTREMITIES: No pedal edema. No calf tenderness. Bilateral leg ulcers noted with Kerlix dressing that is dry and intact. Foul-smelling odor of bilateral lower extremities with no signs of redness or infection noted NEUROLOGICAL: Patient is awake, alert and oriented x3. Cranial nerves 2 through 12 are grossly intact. Diffuse weakness noted Assessment and plan -Gastroenteritis viral resolved at this time -Acute renal failure secondary to excessive diuretic therapy changes and diuretic therapy as mentioned above -Bilateral lower extremity edema, chronic venous stasis and the arterial ulcers for which patient will need local wound care -Hyperkalemia on admission which resolved -Chronic kidney disease stage III -History of coronary disease and CABG in the past -COPD -Type 2 diabetes mellitus Hypertension -Hyperlipidemia -Sleep apnea -Obesity -Peripheral vascular disease -Congestive heart failure test on dysfunction presently not in acute exacerbation diabetic peripheral neuropathy -Mitral regurgitation Plan - Discharge Summary Discharge Rx Participant: No New Discharge Prescriptions: New Furosemide [Lasix] 60 mg PO BID #60 tab Metolazone [Zaroxolyn] 2.5 mg PO DAILY #30 tab Continue L.acidoph,Paracasei, B.lactis [Probiotic] 1 cap PO DAILY@1700 Ferrous Sulfate [Iron (65 MG Elemental)] 325 mg PO DAILY Cholecalciferol [Vitamin D3 (25 Mcg = 1000 Iu)] 2,000 unit PO DAILY@1700 Multivitamins, Thera [Multivitamin (formulary)] 1 tab PO DAILY@1700 Zinc 50 mg PO DAILY@1700 Albuterol Inhaler [Ventolin Hfa Inhaler] 1 - 2 puff INHALATION RT-Q6H PRN #1 inhaler PRN Reason: Shortness Of Breath Or Wheezing Aspirin 81 mg PO DAILY@1700 Magnesium Hydroxide [Milk of Magnesia] 2,400 mg PO DAILY PRN PRN Reason: Constipation Metoprolol Tartrate [Lopressor] 50 mg PO BID Escitalopram [Lexapro] 10 mg PO HS tab Atorvastatin [Lipitor] 40 mg PO HS tab Clopidogrel [Plavix] 75 mg PO DAILY@0900 Furosemide [Lasix] 80 mg PO BID@0900,1600 #60 tab Insulin Detemir (Levemir) [Levemir] 12 unit SQ HS syr Magnesium Oxide [Mag-Ox] 400 mg PO BID 30 Days #60 tab Gabapentin [Neurontin] 100 mg PO BID@0900,2100 #6 cap INSULIN LISPRO (humaLOG) [humaLOG] See Protocol SQ ACHS Collagenase [Santyl] 1 applic TOPICAL DAILY Hydrocodone/Acetaminophen [[place] 5-325] 1 tab PO Q8H Discontinued Spironolactone [Aldactone] 25 mg PO DAILY #30 tab hydrALAZINE HCL [Apresoline] 25 mg PO BID #60 tab Discharge Medication List Cholecalciferol [Vitamin D3 (25 Mcg = 1000 Iu)] 2,000 unit PO DAILY@1700 01/04/16 [History] Ferrous Sulfate [Iron (65 MG Elemental)] 325 mg PO DAILY 01/04/16 [History] L.acidoph,Paracasei, B.lactis [Probiotic] 1 cap PO DAILY@1700 01/04/16 [History] Multivitamins, Thera [Multivitamin (formulary)] 1 tab PO DAILY@1700 01/09/17 [History] Zinc 50 mg PO DAILY@1700 07/17/18 [History] Albuterol Inhaler [Ventolin Hfa Inhaler] 1 - 2 puff INHALATION RT-Q6H PRN #1 inhaler 11/11/18 [Rx] Aspirin 81 mg PO DAILY@1700 11/29/18 [History] Magnesium Hydroxide [Milk of Magnesia] 2,400 mg PO DAILY PRN 11/29/18 [History] Metoprolol Tartrate [Lopressor] 50 mg PO BID 11/29/18 [History] Atorvastatin [Lipitor] 40 mg PO HS tab 12/13/18 [Rx] Escitalopram [Lexapro] 10 mg PO HS tab 12/13/18 [Rx] Clopidogrel [Plavix] 75 mg PO DAILY@0900 12/23/18 [History] Furosemide [Lasix] 80 mg PO BID@0900,1600 #60 tab 01/18/19 [Rx] Insulin Detemir (Levemir) [Levemir] 12 unit SQ HS syr 01/18/19 [Rx] Gabapentin [Neurontin] 100 mg PO BID@0900,2100 #6 cap 01/23/19 [Rx] Magnesium Oxide [Mag-Ox] 400 mg PO BID 30 Days #60 tab 01/23/19 [Rx] Collagenase [Santyl] 1 applic TOPICAL DAILY 04/17/19 [History] INSULIN LISPRO (humaLOG) [humaLOG] See Protocol SQ ACHS 04/17/19 [History] Hydrocodone/Acetaminophen [[place] 5-325] 1 tab PO Q8H 05/07/19 [History] Furosemide [Lasix] 60 mg PO BID #60 tab 05/16/19 [Rx] Metolazone [Zaroxolyn] 2.5 mg PO DAILY #30 tab 05/16/19 [Rx] Follow up Appointment(s)/Referral(s): Jordan Patel III, MD [Primary Care Provider] - 1-2 days [facility] [NON-STAFF] - 05/17/19 10:30 am Discharge Disposition: TRANSFER TO SNF/ECF
[2019-05-16] MEDS: HYDROmorphone 0.5 MG/0.5 ML SYRINGE IVP PRN (14:53)
--- NOTE | 2019-05-16 16:58 | PN ---
PROGRESS NOTE Patient is seen for followup for severe volume overload and the acute kidney injury. His renal function has improved. Patient remains with significant edema in his lower extremities. He could not have the angiogram and PTCA of his lower extremities yesterday, and this will be done as outpatient. PHYSICAL EXAMINATION: On examination today, blood pressure is 150/69, heart rate 68 per minute. Patient is afebrile. EXAMINATION OF THE HEART: S1 and S2. EXAMINATION OF LUNGS: Decreased breath sounds at bases. ABDOMEN: Soft, obese, non-tender. Examination of lower extremities shows severe edema bilaterally with weeping noted. LABS: Sodium 136, potassium 4.8, chloride 110. CO2 is 21, BUN 42, creatinine 0.89. ASSESSMENT: 1. Acute kidney injury, now resolved, nonoliguric, mostly cardiorenal. 2. Volume overload with significant lower extremity edema. Resume loop diuretics. Patient can be discharged with Lasix at home and follow up in about one week's time as outpatient with repeat labs to be done. 3. Mild hyperkalemia. Expect further improvement with continued use of loop diuretics. 4. Chronic obstructive pulmonary disease. 5. Type 2 diabetes. 6. Peripheral vascular disease. PLAN: Resume loop diuretics. Add low-dose Zaroxolyn as well as outpatient. Repeat labs in about 3-4 days as outpatient to monitor the electrolytes. MMODL / IJN: [id number] /
== END 2019-05-16 16:20 | DRG 391 ==
LOC: EC 12:29 → 3SCARD 13:57 → 4SSUR 05-10 21:13
PROVIDERS: ADMIT Hospitalist; ATTEND Hospitalist
DX: A08.39 Other viral enteritis (principal); N17.0 Acute kidney failure with tubular necrosis; L97.421 Non-pressure chronic ulcer of left heel and midfoot limited to breakdown of skin; L97.822 Non-pressure chronic ulcer of other part of left lower leg with fat layer exposed; L97.819 Non-pressure chronic ulcer of other part of right lower leg with unspecified severity; D62 Acute posthemorrhagic anemia; E87.1 Hypo-osmolality and hyponatremia; E87.2 Acidosis; I13.0 Hypertensive heart and chronic kidney disease with heart failure and stage 1 through stage 4 chronic kidney disease, or unspecified chronic kidney disease; I48.20 Chronic atrial fibrillation, unspecified; I50.32 Chronic diastolic (congestive) heart failure; I87.313 Chronic venous hypertension (idiopathic) with ulcer of bilateral lower extremity; L97.302 Non-pressure chronic ulcer of unspecified ankle with fat layer exposed; I27.20 Pulmonary hypertension, unspecified; D63.1 Anemia in chronic kidney disease; L97.522 Non-pressure chronic ulcer of other part of left foot with fat layer exposed; L97.521 Non-pressure chronic ulcer of other part of left foot limited to breakdown of skin; E11.22 Type 2 diabetes mellitus with diabetic chronic kidney disease; E11.42 Type 2 diabetes mellitus with diabetic polyneuropathy; E11.51 Type 2 diabetes mellitus with diabetic peripheral angiopathy without gangrene; E11.621 Type 2 diabetes mellitus with foot ulcer; E11.622 Type 2 diabetes mellitus with other skin ulcer; E66.9 Obesity, unspecified; E78.5 Hyperlipidemia, unspecified; E86.0 Dehydration; E86.1 Hypovolemia; E87.5 Hyperkalemia; G89.29 Other chronic pain; H54.3 Unqualified visual loss, both eyes; I25.10 Atherosclerotic heart disease of native coronary artery without angina pectoris; I87.8 Other specified disorders of veins; J44.9 Chronic obstructive pulmonary disease, unspecified; K29.00 Acute gastritis without bleeding; K44.9 Diaphragmatic hernia without obstruction or gangrene; M19.90 Unspecified osteoarthritis, unspecified site; N18.3 Chronic kidney disease, stage 3 (moderate); G47.33 Obstructive sleep apnea (adult) (pediatric); H26.9 Unspecified cataract; K57.90 Diverticulosis of intestine, part unspecified, without perforation or abscess without bleeding; R26.9 Unspecified abnormalities of gait and mobility; H91.90 Unspecified hearing loss, unspecified ear; T50.2X5A Adverse effect of carbonic-anhydrase inhibitors, benzothiadiazides and other diuretics, initial encounter; D50.9 Iron deficiency anemia, unspecified; D72.829 Elevated white blood cell count, unspecified; B96.1 Klebsiella pneumoniae [K. pneumoniae] as the cause of diseases classified elsewhere; B96.5 Pseudomonas (aeruginosa) (mallei) (pseudomallei) as the cause of diseases classified elsewhere; Z53.9 Procedure and treatment not carried out, unspecified reason; Z68.33 Body mass index [BMI] 33.0-33.9, adult; Z79.02 Long term (current) use of antithrombotics/antiplatelets; Z79.4 Long term (current) use of insulin; Z79.82 Long term (current) use of aspirin; Z79.899 Other long term (current) drug therapy; Z95.5 Presence of coronary angioplasty implant and graft; Z95.2 Presence of prosthetic heart valve; Z95.1 Presence of aortocoronary bypass graft; Z87.891 Personal history of nicotine dependence; Z80.52 Family history of malignant neoplasm of bladder; Z82.49 Family history of ischemic heart disease and other diseases of the circulatory system; Z83.3 Family history of diabetes mellitus
CPT/HCPCS: 43239; 71045; 80048; 80053; 81003; 82607; 82728; 82746; 83036; 83540; 83550; 83735; 84100; 84132; 84466; 85025; 85027; 85045; 86850; 86900; 86901; 86920; 87070; 87077; 87186; 87205; 88305; 94640; 96361; 96365; 96366; 96372; 96375; 96376; 99285

== ENCOUNTER 2019-05-29 09:53 | Day surgery (SDC) | payer MEDICARE ==
[2019-05-24 13:36] VITALS: BMI 32.9
[~2019-05-29 09:53] MED LIST changes: +ASPIRIN 325 MG TAB PO STA; -SODIUM CHLORIDE 0.9% 1,000 ML IV SCH; -ZOLPIDEM 5 MG TAB PO PRN
[2019-05-29 10:28] LABS: Glucose,Whole Blood 150 mg/dL (75-99)
[2019-05-29] MEDS ORDERED: HYDROmorphone 0.5 MG/0.5 ML SYRINGE IVP STA (10:30)
[2019-05-29] MEDS ORDERED: HYDROmorphone 1 MG/ML 1 ML SYRINGE ONE ×2 (10:32→14:22)
[2019-05-29 11:02] LABS: Anisocytosis Slight; HCT 32.4 % (39.0-53.0); HGB 10.1 gm/dL (13.0-17.5); Hypochromasia Moderate; MCH 29.4 pg (25.0-35.0); MCHC 31.2 g/dL (31.0-37.0); MCV 94.4 fL (80.0-100.0); Mean Platelet Volume 6.6; Platelet Count 478 k/uL (150-450); RBC 3.43 m/uL (4.30-5.90); RDW 16.1 % (11.5-15.5); WBC 9.9 k/uL (3.8-10.6)
[2019-05-29 11:24] LABS: Calcium 8.7 mg/dL (8.4-10.2)
[2019-05-29 11:25] LABS: Potassium 4.5 mmol/L (3.5-5.1)
--- NOTE | 2019-05-29 12:45 | CT ---
EXAMINATION TYPE: CT brain wo con DATE OF EXAM: 05/29/2019 COMPARISON: None HISTORY: Recent fall and head laceration. CT DLP: 1233 mGycm Automated exposure control for dose reduction was used. TECHNIQUE: CT scan of the head is performed without contrast. FINDINGS: There is no acute intracranial hemorrhage or midline shift identified. There is diffuse v entricular and sulcal prominence consistent with diffuse age-related cerebral atrophy. There is low- attenuation in the periventricular white matter consistent with chronic small vessel ischemic change. The globes are intact and the visualized sinuses are clear. Atherosclerosis is seen of the intracr anial vasculature. IMPRESSION: No acute intracranial hemorrhage or midline shift. Left frontal scalp contusion and lace ration. There is diffuse age-related cerebral atrophy and chronic small vessel ischemic change noted .
[2019-05-29] MEDS ORDERED: ASPIRIN 81 MG ONE (13:34)
[2019-05-29] MEDS: HYDROmorphone 0.5 MG/0.5 ML SYRINGE IVP STA ×2 (14:27→14:28)
[2019-05-29] MEDS ORDERED: LIDOCAINE 1% INJ 10MG/ML (20 ML MDV) SQ ONE (16:30)
[2019-05-29] MEDS: MIDAZOLAM 2 MG/2 ML VIAL IV ONE ×2 (16:30→17:38)
[2019-05-29] MEDS ORDERED: HYDROmorphone 1 MG/ML 1 ML SYRINGE IVP ONE (16:30)
[2019-05-29] MEDS: fentaNYL (PF) 50 MCG/ML 2 ML AMP IV ONE ×2 (17:38→17:41)
[2019-05-29] MEDS ORDERED: CLOPIDOGREL 75 MG TAB PO ONE (17:45)
[2019-05-29] MEDS ORDERED: IOPAMIDOL-300 100ML BTL INJ ONE (17:45)
[2019-05-29] MEDS ORDERED: OXYMETAZOLINE 0.05% NASL SPRAY 1 SPRAY BOTTLE EA NOSTRIL PRN (18:19)
[2019-05-29] MEDS ORDERED: ALBUTEROL NEBULIZED 2.5 MG/3 ML INHALATION PRN (18:19)
[2019-05-29] MEDS ORDERED: SODIUM CHLORIDE 0.9% 1,000 ML in EMPTY BAG 1 BAG IV SCH (18:30)
--- NOTE | 2019-05-29 19:21 | AN ---
ANGIOGRAPHY REPORT DATE OF SERVICE: May 29, 2019 PERFORMING PHYSICIAN: Zachariah Galindo MD. PROCEDURE PERFORMED: 1. Left lower extremity angiogram. 2. An atherectomy of the left popliteal using the TurboHawk device. 3. Balloon angioplasty of the left popliteal. 4. Successful stenting of the left popliteal using 6 x 60 mm Zilver PTX drug-coated stent with an excellent angiographic results. INDICATION: This is a 74-year-old gentleman who sees Dr. Deng as well as sees Dr. Suazo as an outpatient who was diagnosed recently with critical limb ischemia of the left foot. An angiogram was performed by Dr. Suazo and that revealed critical disease involving the left popliteal as well as severe [id number] disease with occluded anterior tibial as well as posterior tibial on the left side. APPROACH: Left common femoral artery in ipsilateral antegrade technique. COMPLICATION: None. LEVEL OF SEDATION: Moderate with sedation length of 1 hour and 35 minutes. PROCEDURE DESCRIPTION: After obtaining an informed consent, the patient was brought to the cardiac irrigation laborer. Initially the right common femoral artery was cannulated using micropuncture technique and a micropuncture wire passed easily. Then I placed a 6-Nigerien sheath in the right common femoral artery. Going up and over was unsuccessful in view of the extremely tortuous aortoiliac segments. Because of that, I aborted the contralateral retrograde technique and decided to go with the ipsilateral antegrade technique. At that point, I accessed the left common femoral artery and I placed a 70 cm 6-Nigerien sheath at the left SFA going from the left common femoral artery. After that, anticoagulation was initiated using heparin with continuous ACT monitoring throughout the procedure. I attempted doing balloon angioplasty of the left posterior tibial artery, but the balloon angioplasty ended in subintimal space and the patient was moving all over the places. I could not do any fluoro fade pictures nor good angiogram. Because of that, I decided to fix the left popliteal. I did atherectomy of the left popliteal using the TurboHawk device with extraction of multiple segments of the plaque. After that I did balloon angioplasty using 6 mm balloon with the following angiogram showing inadequate angiographic results but subsequently I was able to deploy 6 x 60 mm Zilver PTX drug- coated stent where the stent was positioned under fluoroscopy guidance and deployed under fluoroscopy guidance. The stent was post dilated using 6 mm balloon. The following angiogram showed good angiographic results and the procedure was completed without any complication. POSTPROCEDURE MANAGEMENT: 1. Dual anti-platelet therapy. 2. Risk factor modifications. 3. Follow up with the patient. LAWRENCE / AMARA: [id number] /
[2019-05-29 19:32] LABS: Glucose,Whole Blood 121 mg/dL (75-99)
[2019-05-29 20:42] LABS: Glucose,Whole Blood 123 mg/dL (75-99)
[2019-05-29] MEDS ORDERED: COLLAGENASE 250 UNIT/GM OINTMENT 30 GM TUBE TOPICAL SCH (21:00)
[2019-05-29] MEDS ORDERED: ESCITALOPRAM 10 MG TAB PO SCH (21:00)
[2019-05-29] MEDS ORDERED: INSULIN DETEMIR (LEVEMIR) 100 UNIT/ML SYR SQ SCH (21:00)
[2019-05-29] MEDS ORDERED: ATORVASTATIN 40 MG TAB PO SCH (21:00)
[2019-05-29] MEDS: HYDROcodone/APAP 5-325MG 1 EACH TAB PO SCH (21:31)
[2019-05-29] MEDS: ACETAMINOPHEN TAB 325 MG TAB PO SCH (22:44)
[2019-05-29] MEDS: FUROSEMIDE 80 MG TAB PO SCH (22:44)
[2019-05-29] MEDS: MAGNESIUM OXIDE 400 MG TAB PO SCH (22:45)
[2019-05-29] MEDS: METOPROLOL TARTRATE 50 MG TAB PO SCH (22:45)
[2019-05-29] MEDS: GABAPENTIN 100 MG CAP PO SCH (22:46)
[2019-05-29] MEDS: INSULIN ASPART (NovoLOG) 100 UNIT/ML VIAL SQ SCH (22:46)
[2019-05-30] MEDS ORDERED: HYDROmorphone 0.5 MG/0.5 ML SYRINGE IVP STA ×2 (02:08→05:32)
[2019-05-30 05:35] LABS: Glucose,Whole Blood 107 mg/dL (75-99)
[2019-05-30] MEDS: INSULIN ASPART (NovoLOG) 100 UNIT/ML VIAL SQ SCH (05:38)
--- NOTE | 2019-05-30 08:26 | DS ---
DISCHARGE SUMMARY DATE OF ADMISSION: May 29, 2019 DATE OF DISCHARGE: May 30, 2019 BRIEF HISTORY: This is a 74-year-old gentleman who sees Dr. Deng in the office as an outpatient who underwent yesterday successful atherectomy and balloon angioplasty and stenting of the left popliteal with good angiographic results and without any complication. The procedure was performed from the right groin. The patient is going to be discharged to extended-care facility on dual antiplatelet therapy and he will be followed up with Dr. Suazo as well as continue following up with . RICKY / IJN: [id number] /
[2019-05-30 08:36] VITALS: BP 135/64; PULSE 65; RESP 20; TEMP 98.6
[2019-05-30] MEDS: HYDROcodone/APAP 5-325MG 1 EACH TAB PO SCH (08:45)
[2019-05-30] MEDS: GABAPENTIN 100 MG CAP PO SCH (08:45)
[2019-05-30] MEDS: MAGNESIUM OXIDE 400 MG TAB PO SCH (08:46)
[2019-05-30] MEDS: ACETAMINOPHEN TAB 325 MG TAB PO SCH (08:46)
[2019-05-30] MEDS: METOPROLOL TARTRATE 50 MG TAB PO SCH (08:47)
[2019-05-30] MEDS: FUROSEMIDE 80 MG TAB PO SCH (08:47)
[2019-05-30] MEDS ORDERED: MULTIVITAMINS, THERA 1 EACH TAB PO SCH (09:00)
[2019-05-30] MEDS ORDERED: CHOLECALCIFEROL 1,000 UNIT TAB PO SCH (09:00)
[2019-05-30] MEDS ORDERED: ASPIRIN 81 MG PO SCH (09:00)
[2019-05-30] MEDS ORDERED: CLOPIDOGREL 75 MG TAB PO SCH (09:00)
[2019-05-30] MEDS ORDERED: SENNOSIDES 8.6 MG TAB PO SCH (09:00)
[2019-05-30] MEDS ORDERED: DOCUSATE 100 MG CAP PO SCH (09:00)
[2019-05-30] MEDS ORDERED: FERROUS SULFATE 325 MG TAB PO SCH (09:00)
--- NOTE | 2019-05-30 09:06 | IR ---
EXAMINATION TYPE: IR stent intravas non coronary DATE OF EXAM: 05/29/2019 COMPARISON: NONE HISTORY: Fluoroscopy time. Fluoroscopy was provided to the referring clinician.
[2019-05-30] MEDS ORDERED: LACTOBACILLUS ACIDOPH & BULGAR 1 EACH PACKET PO SCH (17:30)
[2019-05-31] MEDS ORDERED: METOLAZONE 2.5 MG TAB PO SCH (09:00)
== END 2019-05-30 09:37 ==
LOC: CATHCVL 09:53 → 3SCARD 18:07 → CATHCVL 05-30 09:37
PROVIDERS: ATTEND Internal Medicine Interventional Cardiology
DX: E11.51 Type 2 diabetes mellitus with diabetic peripheral angiopathy without gangrene (principal); L97.929 Non-pressure chronic ulcer of unspecified part of left lower leg with unspecified severity; I70.249 Atherosclerosis of native arteries of left leg with ulceration of unspecified site; I25.10 Atherosclerotic heart disease of native coronary artery without angina pectoris; I13.0 Hypertensive heart and chronic kidney disease with heart failure and stage 1 through stage 4 chronic kidney disease, or unspecified chronic kidney disease; I50.32 Chronic diastolic (congestive) heart failure; N18.9 Chronic kidney disease, unspecified; E11.22 Type 2 diabetes mellitus with diabetic chronic kidney disease; I77.1 Stricture of artery; S00.03XA Contusion of scalp, initial encounter; W19.XXXA Unspecified fall, initial encounter; Z79.01 Long term (current) use of anticoagulants; Z79.82 Long term (current) use of aspirin; F17.290 Nicotine dependence, other tobacco product, uncomplicated; I35.0 Nonrheumatic aortic (valve) stenosis; Z79.4 Long term (current) use of insulin; Z79.899 Other long term (current) drug therapy
CPT/HCPCS: 37227; 80048; 85027; 70450; C1894 ×2; C1769 ×7; C1725 ×2; C1887; C1714; C1874; J2250; J2001; J3010; J1170 ×3; J1644; Q9967

== ENCOUNTER 2019-06-07 13:53 | Inpatient (IN) | payer MEDICARE ==
[2019-06-07] MEDS ORDERED: MORPHINE SULFATE 4 MG/ML SYRINGE IV STA (14:19)
--- NOTE | 2019-06-07 14:26 | ED ---
General Adult HPI - General Chief complaint: Extremity Problem,Nontraumatic Stated complaint: ischemia Time Seen by Provider: 06/07/19 14:08 Source: patient, family, RN notes reviewed Mode of arrival: wheelchair Limitations: no limitations - History of Present Illness Initial comments: Patient is a pleasant 74-year-old male presenting to the emergency Department with complaints of bilateral foot problems. Patient is a poor historian. is present who is also poor historian. They're unclear last time it provider evaluated patient's feet. Patient did go to see podiatry, Dr. Talavera recommended patient come to the emergency department for possible admission with consult with Dr. Galindo. - Related Data Home Medications Medication Instructions Recorded Confirmed Cholecalciferol [Vitamin D3 (25 2,000 unit PO DAILY 01/04/16 05/29/19 Mcg = 1000 Iu)] Ferrous Sulfate [Iron (65 MG 325 mg PO DAILY 01/04/16 05/29/19 Elemental)] L.acidoph,Paracasei, B.lactis 1 cap PO W/SUPPER 01/04/16 05/29/19 [Probiotic] Multivitamins, Thera [Multivitamin 1 tab PO DAILY 01/09/17 05/29/19 (formulary)] Aspirin 81 mg PO DAILY 11/29/18 05/29/19 Metoprolol Tartrate [Lopressor] 50 mg PO BID 11/29/18 05/29/19 INSULIN LISPRO (humaLOG) [humaLOG] See Protocol SQ AC-TID 04/17/19 05/29/19 Hydrocodone/Acetaminophen [[place] 1 tab PO Q8HR 05/07/19 05/29/19 5-325] Acetaminophen [Tylenol] 650 mg PO TID 05/24/19 05/29/19 Albuterol Inhaler [Ventolin Hfa 2 puff INHALATION RT-Q6H PRN 05/24/19 05/24/19 Inhaler] Clopidogrel Bisulfate [Plavix] 75 mg PO DAILY 05/24/19 05/29/19 Collagenase [Santyl] 1 applic TOPICAL HS 05/24/19 05/29/19 Darbepoetin Ruddy [Aranesp] 40 mcg IJ TU 05/24/19 05/29/19 Docusate [Colace] 100 mg PO DAILY 05/24/19 05/29/19 Escitalopram [Lexapro] 10 mg PO HS 05/24/19 05/29/19 Furosemide [Lasix] 80 mg PO BID 05/24/19 05/29/19 Gabapentin [Neurontin] 100 mg PO BID 05/24/19 05/29/19 Heparin Sodium,Porcine [Heparin 5,000 unit SQ Q12HR 05/24/19 05/29/19 Sodium] Metolazone [Zaroxolyn] 2.5 mg PO TUFR 05/24/19 05/29/19 Oxymetazoline 0.05% Nasl [place] 1 spray EA NOSTRIL Q4HR PRN 05/24/19 05/29/19 [Afrin 0.05% Nasal [place]] Sennosides [Senna] 8.6 mg PO DAILY 05/24/19 05/29/19 Sodium Chloride [Saline Nasal 1 spray EA NOSTRIL Q2HR PRN 05/24/19 05/29/19 [place]] Previous Rx's Medication Instructions Recorded Atorvastatin [Lipitor] 40 mg PO HS tab 12/13/18 Insulin Detemir (Levemir) [Levemir] 12 unit SQ HS syr 01/18/19 Magnesium Oxide [Mag-Ox] 400 mg PO BID 30 Days #60 tab 01/23/19 Allergies Allergy/AdvReac Type Severity Reaction Status Date / Time No Known Allergies Allergy Verified 06/07/19 13:59 Review of Systems ROS Statement: Those systems with pertinent positive or pertinent negative responses have been documented in the HPI. ROS Other: All systems not noted in ROS Statement are negative. Constitutional: Denies: fever Eyes: Denies: eye pain ENT: Denies: ear pain Respiratory: Denies: cough Cardiovascular: Denies: chest pain Endocrine: Denies: fatigue Gastrointestinal: Denies: abdominal pain Genitourinary: Denies: dysuria Musculoskeletal: Denies: back pain Skin: Reports: other (Lateral foot lesion) Neurological: Denies: headache Past Medical History Past Medical History: Atrial Fibrillation, Coronary Artery Disease (CAD), Heart Failure, COPD, Diabetes Mellitus, Eye Disorder, Hyperlipidemia, Hypertension, Osteoarthritis (OA), Pneumonia, Renal Disease, Sleep Apnea/CPAP/BIPAP, Vascular Disorder Additional Past Medical History / Comment(s): Chronic anemia/procrit, hx CKD stage III, pulmonary HTN, home oxygen continuous at 2L NC, decreased vision bilaterally since CABG surgery, neuropathy bilateral legs/feet, chronic bilateral leg/foot pain, severe PVD, past bilateral lower leg/foot wounds and cellulitis, current bilateral lower leg wounds, sepsis d/t leg wounds 2018, mild gastritis, diverticular disease. no cpap used History of Any Multi-Drug Resistant Organisms: None Reported Past Surgical History: Adenoidectomy, Cardiac Valve Replacement, Heart Catheterization, Heart Catheterization With Stent, Tonsillectomy Additional Past Surgical History / Comment(s): 04/22/19 L leg angiogram, FAUSTINO, mitral valve repair 10/31/18, EGD, colonoscopies. one cardiac stent, Vascular surgery May 28 left leg Past Anesthesia/Blood Transfusion Reactions: No Reported Reaction Additional Past Anesthesia/Blood Transfusion Reaction / Comment(s): DIFF IV STARTS Date of Last Stent Placement:: fall 2018 Past Psychological History: Depression Smoking Status: Former smoker Past Alcohol Use History: Occasional Past Drug Use History: None Reported - Past Family History Father Family Medical History: Cancer Additional Family Medical History / Comment(s): stomach Mother Family Medical History: Congestive Heart Failure (CHF) Additional Family Medical History / Comment(s): AT AGE 68 Brother(s) Family Medical History: Cancer General Exam Limitations: no limitations General appearance: alert, in no apparent distress Head exam: Present: other (Healing facial abrasion) Eye exam: Present: normal appearance, PERRL ENT exam: Present: normal oropharynx Neck exam: Present: normal inspection Respiratory exam: Present: normal lung sounds bilaterally Cardiovascular Exam: Present: regular rate, normal rhythm GI/Abdominal exam: Present: soft. Absent: tenderness Extremities exam: Present: other (Bilateral lower leg erythema and ulcers) Neurological exam: Present: alert Psychiatric exam: Present: normal affect, normal mood Skin exam: Present: erythema, other (Bilateral lower leg erythema and ulcers, stage II to 3) Course Vital Signs 06/07/19 13:55 Temperature 97.8 F Pulse Rate 66 Respiratory 16 Rate Blood Pressure 122/77 O2 Sat by Pulse 100 Oximetry EKG Findings - EKG Comments: EKG Findings:: Sinus rhythm at 66. For screening AV block AK of 222. QRS 94. QT 464. QTC 486. Normal axis. Normal QRS. No acute ST change. Medical Decision Making - Medical Decision Making Patient reevaluated. Patient and family updated. Case discussed in detail with Dr. Merrill who will admit covering for Dr. Patel. Per request of Dr. Talavera, Dr. Galindo will be placed on consult. Disposition Clinical Impression: Bilateral lower leg cellulitis Disposition: ADMITTED IP TO THIS HOSP Is patient prescribed a controlled substance at d/c from ED?: No Referrals: Jordan Patel III, MD [Primary Care Provider] - 1-2 days Decision Time: 16:59
[2019-06-07] MEDS ORDERED: MORPHINE SULFATE 4 MG/ML SYRINGE IVP STA (16:31)
[2019-06-07 16:58] LABS: Anisocytosis Slight; Basophils % (A) 0 %; Eosinophils # (A) 0.3 k/uL (0-0.7); Eosinophils % (A) 3 %; HCT 32.5 % (39.0-53.0); HGB 10.4 gm/dL (13.0-17.5); Lymphocytes # (A) 0.8 k/uL (1.0-4.8); Lymphocytes % (A) 8 %; MCH 29.6 pg (25.0-35.0); MCV 92.5 fL (80.0-100.0); Mean Platelet Volume 6.7; Monocytes # (A) 0.5 k/uL (0-1.0); Monocytes % (A) 5 %; Neutrophils # (A) 8.3 k/uL (1.3-7.7); Neutrophils % (A) 82 %; Platelet Count 353 k/uL (150-450); RBC 3.52 m/uL (4.30-5.90); RDW 16.7 % (11.5-15.5); WBC 10.1 k/uL (3.8-10.6)
[2019-06-07] MEDS ORDERED: NALOXONE 0.4 MG/ML 1 ML VIAL IV PRN (16:59)
[2019-06-07 17:19] LABS: Albumin 3.3 g/dL (3.5-5.0); Calcium 8.6 mg/dL (8.4-10.2); Total Bilirubin 0.5 mg/dL (0.2-1.3); Total Protein 6.6 g/dL (6.3-8.2)
[2019-06-07 17:21] LABS: INR 0.9 (<1.2); Partial Thromboplastin Time 26.6 sec (22.0-30.0); Prothrombin Time 9.9 sec (9.0-12.0)
[2019-06-07] MEDS: SODIUM CHLORIDE 0.9% 1,000 ML IV SCH (18:24)
[2019-06-07] MEDS: MORPHINE SULFATE 4 MG/ML SYRINGE IV PRN (19:43)
[2019-06-07] MEDS ORDERED: SODIUM CHLORIDE 0.65% NASAL SPRAY 44 ML BTL INTRANASAL PRN ×2 (20:52)
[2019-06-07] MEDS ORDERED: OXYMETAZOLINE 0.05% NASL SPRAY 1 SPRAY BOTTLE EA NOSTRIL PRN (20:52)
[2019-06-07] MEDS ORDERED: ACETAMINOPHEN TAB 325 MG TAB PO PRN (20:52)
[2019-06-07] MEDS ORDERED: traMADol 50 MG TAB PO PRN (20:52)
[2019-06-07] MEDS ORDERED: ALBUTEROL NEBULIZED 2.5 MG/3 ML INHALATION PRN (20:52)
[2019-06-07] MEDS ORDERED: GLUCAGON EMERGENCY 1 MG IM PRN (20:52)
[2019-06-07] MEDS ORDERED: GLYCERIN ADULT SUPPOSITORY 1 EACH RECTAL PRN (20:52)
[2019-06-07] MEDS ORDERED: COLLAGENASE 250 UNIT/GM OINTMENT 30 GM TUBE TOPICAL SCH (21:00)
[2019-06-07] MEDS: METOPROLOL TARTRATE 50 MG TAB PO SCH (21:21)
[2019-06-07] MEDS: GABAPENTIN 100 MG CAP PO SCH (21:21)
[2019-06-07] MEDS: ESCITALOPRAM 10 MG TAB PO SCH (21:22)
[2019-06-07] MEDS: FUROSEMIDE 80 MG TAB PO SCH (21:22)
[2019-06-07] MEDS: MAGNESIUM OXIDE 400 MG TAB PO SCH (21:22)
[2019-06-07] MEDS: ATORVASTATIN 40 MG TAB PO SCH (21:22)
[2019-06-07] MEDS: HEPARIN SODIUM,PORCINE 5,000 UNIT/ML 1 ML VIAL SQ SCH (21:22)
[2019-06-07] MEDS: METOLAZONE 2.5 MG TAB PO SCH (21:23)
[2019-06-07] MEDS: INSULIN DETEMIR (LEVEMIR) 100 UNIT/ML SYR SQ SCH (21:23)
[2019-06-07 21:39] LABS: Glucose,Whole Blood 160 mg/dL (75-99)
[2019-06-07] MEDS: INSULIN ASPART (NovoLOG) 100 UNIT/ML VIAL SQ SCH (21:39)
[2019-06-07] MEDS ORDERED: ZINC OXIDE TOPICAL SCH (22:00)
--- NOTE | 2019-06-07 22:46 | HP ---
HISTORY AND PHYSICAL DATE OF SERVICE: 06/07/2019 CHIEF COMPLAINTS: Bilateral foot ulcers, left more than the right, and severe pain. HISTORY OF PRESENT ILLNESS: This 74-year-old gentleman with a past medical history of multiple medical problems, including history of atrial fibrillation, history of CAD, CHF, COPD, diabetes mellitus, hypertension, hyperlipidemia, DJD, history of peripheral vascular disease, history of adenoidectomy, followed by Dr. Patel in the outpatient setting, has bilateral leg ulcers, left more than the right. Multiple consultants are following the patient closely. The patient underwent arthrectomy and balloon angioplasty and stenting of the left popliteal with good angiographic results recently by Dr. Galindo on May 28. The patient is followed by Vascular Surgery and Dr. Talavera at this time. Currently the patient went to Dr. Talavera's office and the patient was sent to [facility] for evaluation and treatment. The patient is complaining of severe pain. There is no history of any fever, rigor or chills. No history of headache, loss of consciousness, seizures. PAST MEDICAL HISTORY: History of atrial fibrillation, CAD, CHF, COPD, diabetes mellitus, type 2, hypertension, hyperlipidemia, history of DJD, history of chronic anemia. HOME MEDICATIONS: 1. Glycerin suppository. 2. Ultram 50 mg q.6 p.r.n. 3. Senna 8.6 daily. 4. Vitamin D3 2000 daily. 5. Ventolin HFA. 6. Saline spray. 7. Santyl 1 application daily. 8. Plavix 75 mg p.o. daily. 9. Oxymetazoline. 10.Multivitamins. 11.Metoprolol. 12.Hydrocodone 5 mg p.o. p.r.n. 13.Neurontin 100 mg p.o. b.i.d. 14.Zaroxolyn 2.5 mg q.6. 15.Magnesium oxide 400 units p.o. b.i.d. 16.Levemir 12 units subcutaneously at bedtime. 17.Lipitor 40 mg at bedtime. 18.Humalog before meals t.i.d. 19.Heparin 5000 units subcutaneously b.i.d. 20.Lasix 40 mg b.i.d. 21.Iron 320 mg p.o. daily. 22.Lexapro 10 mg at bedtime. 23.Colace 100 mg p.o. daily. 24.Aranesp 40 Monday. 25.Lactobacillus 1 tablet p.o. daily. 26.Aspirin 81 mg. 27.Tylenol p.r.n. 28.Zinc oxide 1 application t.i.d. 29.Glucagon. 30.Bisacodyl. ALLERGIES: NONE. FAMILY HISTORY: History of stomach cancer in the family. SOCIAL HISTORY: Remote history of nicotine dependence. No history of alcohol intake. REVIEW OF SYSTEMS: ENT: Diminished hearing. Diminished vision. CARDIOVASCULAR SYSTEM: No angina, palpitations. RESPIRATORY SYSTEM: As mentioned earlier. GI: As mentioned earlier. : No dysuria or retention. NERVOUS SYSTEM: No numbness, weakness. ALLERGY/IMMUNOLOGY: No asthma, hayfever. MUSCULOSKELETAL: As mentioned earlier. HEMATOLOGY/ONCOLOGY: No history of anemia. ENDOCRINE: No history of diabetes, hypothyroidism. CONSTITUTIONAL: As mentioned earlier. DERMATOLOGY: As mentioned earlier. RHEUMATOLOGY: Negative. PSYCHIATRY: As mentioned earlier. PHYSICAL EXAMINATION: Patient alert and oriented x3. Pulse 66, blood pressure 122/77, respirations 16, temperature 97.8, pulse ox 100% on 2 L. HEENT: Conjunctivae normal. Oral mucosa moist. NECK: No jugular venous distention. No carotid bruit. No lymph node enlargement. CARDIOVASCULAR SYSTEM: S1, S2 muffled. No S3. No S4. RESPIRATORY SYSTEM: Breath sounds diminished at the bases. A few rhonchi. No crackles. ABDOMEN: Soft, obese, non-tender. No mass palpable. LEGS: Bilateral leg swelling and ulcers as well as present. NERVOUS SYSTEM: Higher functions as mentioned earlier. Moves all 4 limbs. No focal motor or sensory deficit. LYMPHATICS: No lymph node palpable in neck, axillae or groin. SKIN: No ulcer, rash, bleeding. JOINTS: No active deforming arthropathy. LABS: WBC 10.1, hemoglobin 10.4. Sodium 133, creatinine 1.57. ASSESSMENT: 1. Bilateral leg ulcers, left more than the right. 2. History of recent left popliteal atherectomy by Dr. Galindo. 3. Peripheral vascular disease. 4. Hyponatremia. 5. Increased creatinine with chronic kidney disease, stage III. 6. Severe pain. 7. Anemia, normocytic; anemia of chronic disease. 8. History of atrial fibrillation, chronic. 9. Coronary artery disease. 10.History of congestive heart failure. 11.History of chronic obstructive pulmonary disease. 12.Diabetes mellitus, type 2. 13.Hypertension. 14.Hyperlipidemia. 15.History of degenerative joint disease. 16.Sleep apnea. 17.History of pulmonary hypertension. 18.Severe mitral regurgitation as well as severely calcified mitral anulus, status post repair in October 2018. 19.Diabetic peripheral neuropathy. 20.Chronic hypoxic respiratory failure, on 2 L nasal cannula. 21.History of coronary artery disease, coronary artery bypass grafting, stent. 22.History of adenoidectomy. 23.History of cardiac valve replacement. 24.History of depression. 25.Remote history of nicotine dependence. RECOMMENDATIONS AND DISCUSSION: I recommend to continue current medications, continue with the monitoring, symptomatic treatment. Continue with pain medications. I would also recommend antibiotics. Consult Infectious Disease and Vascular. See orders for further details. Resume the home medications. Cultures. Prognosis guarded because of multiple complex medical issues. Further recommendations to follow. HUANGL / GORDYN: [id number] / JOSÉ LUIS
[2019-06-08] MEDS: SODIUM CHLORIDE 0.9% 1,000 ML IV SCH ×4 (01:59→20:47)
[2019-06-08] MEDS: HYDROcodone/APAP 5-325MG 1 EACH TAB PO SCH ×4 (01:59→15:09)
[2019-06-08] MEDS: MORPHINE SULFATE 4 MG/ML SYRINGE IV PRN ×2 (04:50→20:03)
[2019-06-08 07:08] LABS: Glucose,Whole Blood 85 mg/dL (75-99)
[2019-06-08] MEDS: INSULIN ASPART (NovoLOG) 100 UNIT/ML VIAL SQ SCH ×5 (07:20→20:56)
[2019-06-08] MEDS: SENNOSIDES 8.6 MG TAB PO SCH (08:53)
[2019-06-08] MEDS: DOCUSATE 100 MG CAP PO SCH (08:53)
[2019-06-08] MEDS: ASPIRIN 81 MG PO SCH (08:53)
[2019-06-08] MEDS: CHOLECALCIFEROL 1,000 UNIT TAB PO SCH (08:53)
[2019-06-08] MEDS: MAGNESIUM OXIDE 400 MG TAB PO SCH ×2 (08:53→20:46)
[2019-06-08] MEDS: FUROSEMIDE 80 MG TAB PO SCH ×2 (08:53→20:46)
[2019-06-08] MEDS: FERROUS SULFATE 325 MG TAB PO SCH (08:53)
[2019-06-08] MEDS: HEPARIN SODIUM,PORCINE 5,000 UNIT/ML 1 ML VIAL SQ SCH ×2 (08:54→20:46)
[2019-06-08] MEDS: GABAPENTIN 100 MG CAP PO SCH ×2 (08:54→20:46)
[2019-06-08] MEDS: MULTIVITAMINS, THERA 1 EACH TAB PO SCH (08:54)
[2019-06-08] MEDS: METOPROLOL TARTRATE 50 MG TAB PO SCH ×2 (08:54→20:46)
[2019-06-08] MEDS: CLOPIDOGREL 75 MG TAB PO SCH (08:54)
[2019-06-08] MEDS: PANTOPRAZOLE 40 MG/10 ML VIAL IV SCH (08:55)
[2019-06-08] MEDS ORDERED: LACTOBACILLUS ACIDOPHILUS PO SCH (09:00)
[2019-06-08 09:12] LABS: Anisocytosis Slight; Basophils % (A) 0 %; Eosinophils # (A) 0.1 k/uL (0-0.7); Eosinophils % (A) 1 %; HCT 30.3 % (39.0-53.0); HGB 9.3 gm/dL (13.0-17.5); Hypochromasia Slight; Lymphocytes # (A) 0.6 k/uL (1.0-4.8); Lymphocytes % (A) 3 %; MCH 29.2 pg (25.0-35.0); MCHC 30.7 g/dL (31.0-37.0); MCV 95.1 fL (80.0-100.0); Mean Platelet Volume 7.2; Monocytes # (A) 0.5 k/uL (0-1.0); Monocytes % (A) 3 %; Neutrophils # (A) 15.2 k/uL (1.3-7.7); Neutrophils % (A) 92 %; Platelet Count 366 k/uL (150-450); RBC 3.19 m/uL (4.30-5.90); RDW 16.6 % (11.5-15.5); WBC 16.5 k/uL (3.8-10.6)
[2019-06-08 09:24] LABS: Calcium 8.3 mg/dL (8.4-10.2); Potassium 4.1 mmol/L (3.5-5.1)
[2019-06-08 11:54] LABS: Glucose,Whole Blood 165 mg/dL (75-99)
--- NOTE | 2019-06-08 13:00 | CONS ---
CONSULTATION This patient is a 74-year-old gentleman who was admitted to hospital with bilateral cellulitis, and we have been consulted because the patient is known to us and has peripheral arterial disease. He has extensive history, including hypertension, diabetes, dyslipidemia, and has recently undergone peripheral angiogram and stent placement. His history is also significant for atrial fibrillation, CAD, heart failure, COPD and diabetes. He underwent atherectomy with balloon angioplasty of the left popliteal artery. He sees Dr. Suazo, the vascular surgeon, and he is also being followed by a knuckler. He came in complaining of bilateral pain in the feet and cellulitis. He denies any chest pain, difficulty in breathing or palpitations. PAST MEDICAL HISTORY: Significant for coronary artery disease, atrial fibrillation, heart failure, COPD, diabetes, hypertension, dyslipidemia. MR s/p mitral valve repair MEDICATIONS: Medications include Ventolin, Plavix, oxymetazoline, metoprolol, Levemir, Lipitor, insulin, Lasix, iron and Colace. ALLERGIES: NO KNOWN DRUG ALLERGIES. FAMILY HISTORY: Significant for stomach cancer in the family. SOCIAL HISTORY: Negative for current smoking or EtOH abuse. REVIEW OF SYSTEMS: Review of systems is unremarkable other than what has been mentioned so far. PHYSICAL EXAMINATION: He is afebrile. Heart rate is 68 beats per minute. Blood pressure is 130/66, respiratory rate 18. Chest exam reveals diminished air entry at the bases. Heart exam reveals first and second heart sounds and a systolic murmur at the left lower sternal border. Abdomen is soft. Examination of the extremities reveals bilateral lower extremity cellulitis, diminished pulses and skin ulceration. LABS: Lab show that the white cell count is elevated, hemoglobin is 9.3, potassium is 4.1, creatinine is 1.1. ASSESSMENT: 1. Bilateral lower extremity cellulitis secondary to peripheral arterial disease. 2. History of atrial fibrillation. 3. History of coronary artery disease. 4. History of heart failure. 5. Mitral regurgitation s/p repiar PLAN: Continue patient on his current medications. His primary problem is peripheral arterial insufficiency, ulceration and cellulitis. I will leave the management to the primary care physician and the vascular surgeon. MMODL / IJN: [id number] / MTDD
[2019-06-08] MEDS: COLLAGENASE 250 UNIT/GM OINTMENT 30 GM TUBE TOPICAL SCH (15:10)
--- NOTE | 2019-06-08 15:10 | P.GSHP ---
History of Present Illness H&P Date: 06/08/19 Chief Complaint: Severe peripheral arterial disease bilateral lower extremity with necrosis Patient 74-year-old male seen in my office yesterday area with extreme ischemic pain of bilateral lower extremities. Patient has been seen by cardiology intervention as as well as surgery. Patient had attempt at step placement below the trifurcation of the popliteal artery of the leg. Apparently this was partially successful and that only a stent was placed and one of the trifu rcation without revascularization of the distal arteries. Patient continued to have pain and is being seen in my office for management of the ulcerations. Patient was in such discomfort that any treatment and the office was impossible to perform so patient was sent to the emergency room for evaluation and possible vascular management. He was to be consulted by Dr. Galindo who previously managed his condition surgically. Patient is seen resting at bedside with still extreme discomfort at rest increasing with palpation of the leg. He was seen by me with vascular surgery Dr. Suazo. - Cardiovascular Comment: Patient has nonpalpable pedal pulses with ischemic pain bilateral. Bedside Doppler was performed by Dr. Suazo and no audible arterial flow was present. Patient has decrease sub plexus arterial flow as well as multiple ischemic ulcers of bilateral lower extremities. There is rubor present as well as elevational Paylor. The extremities are cool to palpation - Musculoskeletal Comment: Patient is in extreme ischemic pain and is unable to perform range of motion or muscular testing due to the pain. Patient is splinting the ankles at neutral secondary to the pain. - Integumentary Comment: There are multiple ischemic ulcerations dry with dry gangrenous changes throughout both lower extremities extending from the area below the knee to the feet bilateral. The integument is thin and atrophic bilateral - Neurological Comment: Due to the ischemic issues patient has pain out of proportion to the stimuli at this time. Past Medical History Past Medical History: Atrial Fibrillation, Coronary Artery Disease (CAD), Heart Failure, COPD, Diabetes Mellitus, Eye Disorder, Hyperlipidemia, Hypertension, Osteoarthritis (OA), Pneumonia, Renal Disease, Sleep Apnea/CPAP/BIPAP, Vascular Disorder Additional Past Medical History / Comment(s): Chronic anemia/procrit, hx CKD stage III, pulmonary HTN, home oxygen continuous at 2L NC, decreased vision bilaterally since CABG surgery, neuropathy bilateral legs/feet, chronic bilateral leg/foot pain, severe PVD, past bilateral lower leg/foot wounds and cellulitis, current bilateral lower leg wounds, sepsis d/t leg wounds 2018, mild gastritis, diverticular disease. no cpap used History of Any Multi-Drug Resistant Organisms: None Reported Past Surgical History: Adenoidectomy, Cardiac Valve Replacement, Heart Catheterization, Heart Catheterization With Stent, Tonsillectomy Additional Past Surgical History / Comment(s): 04/22/19 L leg angiogram, FAUSTINO, mitral valve repair 10/31/18, EGD, colonoscopies. one cardiac stent, Vascular surgery May 28 left leg Past Anesthesia/Blood Transfusion Reactions: No Reported Reaction Additional Past Anesthesia/Blood Transfusion Reaction / Comment(s): DIFF IV STARTS Date of Last Stent Placement:: fall 2018 Past Psychological History: Depression Additional Psychological History / Comment(s): . Smoking Status: Former smoker Past Alcohol Use History: Occasional Additional Past Alcohol Use History / Comment(s): Pt started smoking in 1957 and quit in 2007. He smoked pipe. Past Drug Use History: None Reported - Past Family History Father Family Medical History: Cancer Additional Family Medical History / Comment(s): stomach Mother Family Medical History: Congestive Heart Failure (CHF) Additional Family Medical History / Comment(s): AT AGE 68 Brother(s) Family Medical History: Cancer Medications and Allergies Home Medications Medication Instructions Recorded Confirmed Type Cholecalciferol [Vitamin D3 (25 2,000 unit PO DAILY 01/04/16 06/07/19 History Mcg = 1000 Iu)] Ferrous Sulfate [Iron (65 MG 325 mg PO DAILY 01/04/16 06/07/19 History Elemental)] Multivitamins, Thera [Multivitamin 1 tab PO DAILY 01/09/17 06/07/19 History (formulary)] Aspirin 81 mg PO DAILY 11/29/18 06/07/19 History Metoprolol Tartrate [Lopressor] 50 mg PO BID 11/29/18 06/07/19 History Atorvastatin [Lipitor] 40 mg PO HS tab 12/13/18 06/07/19 Rx Insulin Detemir (Levemir) [Levemir] 12 unit SQ HS syr 01/18/19 06/07/19 Rx Magnesium Oxide [Mag-Ox] 400 mg PO BID 30 Days #60 tab 01/23/19 06/07/19 Rx INSULIN LISPRO (humaLOG) [humaLOG] See Protocol SQ AC-TID 04/17/19 06/07/19 History Hydrocodone/Acetaminophen [[place] 1 tab PO Q8HR 05/07/19 06/07/19 History 5-325] Acetaminophen [Tylenol] 650 mg PO TID 05/24/19 06/07/19 History Albuterol Inhaler [Ventolin Hfa 2 puff INHALATION RT-Q6H PRN 05/24/19 06/07/19 History Inhaler] Clopidogrel Bisulfate [Plavix] 75 mg PO DAILY 05/24/19 06/07/19 History Collagenase [Santyl] 1 applic TOPICAL HS 05/24/19 06/07/19 History Darbepoetin Ruddy [Aranesp] 40 mcg IJ TU 05/24/19 06/07/19 History Docusate [Colace] 100 mg PO DAILY 05/24/19 06/07/19 History Escitalopram [Lexapro] 10 mg PO HS 05/24/19 06/07/19 History Furosemide [Lasix] 80 mg PO BID 05/24/19 06/07/19 History Gabapentin [Neurontin] 100 mg PO BID 05/24/19 06/07/19 History Heparin Sodium,Porcine [Heparin 5,000 unit SQ Q12HR 05/24/19 06/07/19 History Sodium] Metolazone [Zaroxolyn] 2.5 mg PO TUFR 05/24/19 06/07/19 History Oxymetazoline 0.05% Nasl Lillian 1 spray EA NOSTRIL Q4HR PRN 05/24/19 06/07/19 History [Afrin 0.05% Nasal Lillian] Sennosides [Senna] 8.6 mg PO DAILY 05/24/19 06/07/19 History Sodium Chloride [Saline Nasal 1 spray EA NOSTRIL Q2HR PRN 05/24/19 06/07/19 History Lillian] Acetaminophen [Tylenol] 650 mg PO Q4H PRN 06/07/19 06/07/19 History Bisacodyl 5 mg PO Q24H PRN 06/07/19 06/07/19 History Glucagon Emergency Kit 1 mg IM ONCE PRN 06/07/19 06/07/19 History Glycerin Adult Suppository 1 supp RECTAL Q24H PRN 06/07/19 06/07/19 History Lactobacillus Acidophilus 1 tab PO DAILY 06/07/19 06/07/19 History [Acidophilus] Sodium Chloride [Saline Nasal 1 spray EA NOSTRIL QID PRN 06/07/19 06/07/19 History Lillian] Zinc Oxide Ointment 1 applic TOPICAL TID 06/07/19 06/07/19 History traMADol HCl [Ultram] 50 mg PO Q6H PRN 06/07/19 06/07/19 History Allergies Allergy/AdvReac Type Severity Reaction Status Date / Time No Known Allergies Allergy Verified 06/07/19 19:09 Surgical - Exam Vital Signs Temp Pulse Resp BP Pulse Ox 97.8 F 66 16 122/77 100 06/07/19 13:55 06/07/19 13:55 06/07/19 13:55 06/07/19 13:55 06/07/19 13:55 - Cardiovascular Patient has nonpalpable pedal pulses bilateral no digital hair extremities are cool the integument is thin and atrophic bilateral. There is no return the arterial flow on palpation the digits and a normal pattern. Dopplers performed at bedside are negative for audible flow bilateral. - Integumentary Multiple ischemic ulcerations from the area below the knees bilateral to the distal aspect of the foot. These are painful with dry gangrenous changes bi lateral. The integument is thin and atrophic with Rubor on dependency and pallor there is no digital hair - Neurologic Patient has ischemic pain out of proportion to the stimuli - Musculoskeletal Unable to assess musculoskeletal system due to the patient's pain however it resting patient is splinting the ankle at neutral. Results - Labs 06/08/19 08:01 06/08/19 08:01 Abnormal Lab Results - Last 24 Hours (Table) 06/07/19 06/07/19 06/07/19 Range/Units 16:35 16:35 21:38 WBC (3.8-10.6) k/uL RBC 3.52 L (4.30-5.90) m/uL Hgb 10.4 L (13.0-17.5) gm/dL Hct 32.5 L (39.0-53.0) % MCHC (31.0-37.0) g/dL RDW 16.7 H (11.5-15.5) % Neutrophils # 8.3 H (1.3-7.7) k/uL Lymphocytes # 0.8 L (1.0-4.8) k/uL Sodium 133 L (137-145) mmol/L Chloride 90 L (98-107) mmol/L Carbon Dioxide 37 H (22-30) mmol/L BUN 81 H (9-20) mg/dL Creatinine 1.57 H (0.66-1.25) mg/dL Glucose 147 H (74-99) mg/dL POC Glucose (mg/dL) 160 H (75-99) mg/dL Calcium (8.4-10.2) mg/dL Alkaline Phosphatase 132 H (38-126) U/L Albumin 3.3 L (3.5-5.0) g/dL 06/08/19 06/08/19 06/08/19 Range/Units 08:01 08:01 11:52 WBC 16.5 H (3.8-10.6) k/uL RBC 3.19 L (4.30-5.90) m/uL Hgb 9.3 L (13.0-17.5) gm/dL Hct 30.3 L (39.0-53.0) % MCHC 30.7 L (31.0-37.0) g/dL RDW 16.6 H (11.5-15.5) % Neutrophils # 15.2 H (1.3-7.7) k/uL Lymphocytes # 0.6 L (1.0-4.8) k/uL Sodium 133 L (137-145) mmol/L Chloride 93 L (98-107) mmol/L Carbon Dioxide 37 H (22-30) mmol/L BUN 71 H (9-20) mg/dL Creatinine (0.66-1.25) mg/dL Glucose 66 L (74-99) mg/dL POC Glucose (mg/dL) 165 H (75-99) mg/dL Calcium 8.3 L (8.4-10.2) mg/dL Alkaline Phosphatase (38-126) U/L Albumin (3.5-5.0) g/dL Diabetes panel 06/07/19 06/08/19 Range/Units 16:35 08:01 Sodium 133 L 133 L (137-145) mmol/L Potassium 4.1 (3.5-5.1) mmol/L Chloride 90 L 93 L (98-107) mmol/L Carbon Dioxide 37 H 37 H (22-30) mmol/L BUN 81 H 71 H (9-20) mg/dL Creatinine 1.57 H 1.10 (0.66-1.25) mg/dL Glucose 147 H 66 L (74-99) mg/dL Calcium 8.6 8.3 L (8.4-10.2) mg/dL AST 46 (17-59) U/L ALT 26 (4-49) U/L Alkaline Phosphatase 132 H (38-126) U/L Total Protein 6.6 (6.3-8.2) g/dL Albumin 3.3 L (3.5-5.0) g/dL Calcium panel 06/07/19 06/08/19 Range/Units 16:35 08:01 Calcium 8.6 8.3 L (8.4-10.2) mg/dL Albumin 3.3 L (3.5-5.0) g/dL Pituitary panel 06/07/19 06/08/19 Range/Units 16:35 08:01 Sodium 133 L 133 L (137-145) mmol/L Potassium 4.1 (3.5-5.1) mmol/L Chloride 90 L 93 L (98-107) mmol/L Carbon Dioxide 37 H 37 H (22-30) mmol/L BUN 81 H 71 H (9-20) mg/dL Creatinine 1.57 H 1.10 (0.66-1.25) mg/dL Glucose 147 H 66 L (74-99) mg/dL Calcium 8.6 8.3 L (8.4-10.2) mg/dL Adrenal panel 06/07/19 06/08/19 Range/Units 16:35 08:01 Sodium 133 L 133 L (137-145) mmol/L Potassium 4.1 (3.5-5.1) mmol/L Chloride 90 L 93 L (98-107) mmol/L Carbon Dioxide 37 H 37 H (22-30) mmol/L BUN 81 H 71 H (9-20) mg/dL Creatinine 1.57 H 1.10 (0.66-1.25) mg/dL Glucose 147 H 66 L (74-99) mg/dL Calcium 8.6 8.3 L (8.4-10.2) mg/dL Total Bilirubin 0.5 (0.2-1.3) mg/dL AST 46 (17-59) U/L ALT 26 (4-49) U/L Alkaline Phosphatase 132 H (38-126) U/L Total Protein 6.6 (6.3-8.2) g/dL Albumin 3.3 L (3.5-5.0) g/dL Assessment and Plan Assessment: Severe peripheral arterial disease bilateral with gangrenous changes Multiple systemic morbidities please refer to history and physical Plan: Exam. Patient was seen with Dr. Suazo and we both performed evaluation of these lower extremities. We are in agreement that if patient cannot be successfully revascularized by cardiology patient would need a AK amputation. No mechanical debridement can be performed on this patient at this time and patient cannot tolerate medical Honey as to a sensitivities to same. Therefore we'll start with Santyl ointment and cover loosely with a dry sterile dressing. Dr. Suazo will consult with Dr. Carpio as to surgical plan for this patient. Thank you for this consult
[2019-06-08] MEDS: CEFEPIME 2 GM in SODIUM CHLORIDE 0.9% 100 ML IVPB SCH (16:01)
--- NOTE | 2019-06-08 16:42 | CONS ---
CONSULTATION This is a 74-year-old gentleman who was seen on consultation for bilateral lower extremity chronic wounds. The patient had a atherectomy and balloon angioplasty by Dr. Galindo. Patient has been admitted with pain in both lower extremities, more on the left than on the right. MEDICAL HISTORY: The patient diabetes, hypertension, hyperlipidemia. PHYSICAL EXAMINATION: Patient was seen in his room. The patient was very agitated and in discomfort, complaining of pain in both lower extremities. NECK: Supple. CHEST: Crackles, bilateral. ABDOMEN: Soft. Femorals are 1+. PT and DP faint Doppler on the foot. The patient has multiple ulcers on the lower extremities, anterior aspect of the left lower extremity and also on the right lower extremity with some scab formation noted. The patient was seen, and we discussed management. Patient also was seen by Dr. Talavera for his opinion. At this point, patient was seen by Dr. Galindo. The patient most likely will need above-knee amputation. We will follow with you. MMODL / IJN: [id number] /
[2019-06-08 17:14] LABS: Glucose,Whole Blood 189 mg/dL (75-99)
--- NOTE | 2019-06-08 18:36 | PN ---
PROGRESS NOTE DATE OF SERVICE: 06/08/2019 This 73-year-old gentleman admitted with significant bilateral leg ulcers, left more than the right, recently had peripheral vascular procedure with arthrectomy of the popliteal artery lesion by Dr. Galindo. Currently the patient admitted with significant ulcerations and some foul-smelling discharge and also multiple consultants including Cardiology, vascular surgery and Infectious Disease evaluations are underway as well as Dr. Talavera. Per vascular surgeon notes, no mechanical debridement can be performed. The patient is on broad-spectrum IV antibiotics. Final cultures are pending at this time. PAST MEDICAL HISTORY: Reviewed. REVIEW OF SYSTEMS: Cardiovascular: No angina. Respiration as mentioned earlier. GI as mentioned earlier. no dysuria. Nervous system: No numbness or weakness. CURRENT MEDICATIONS: Reviewed and include: 1. Tylenol p.r.n. 2. [place] 5 mg q.8 p.r.n. 3. Ventolin. 4. Aspirin 81 mg daily. 5. Lipitor 40 mg daily. 6. Dulcolax 5 mg p.r.n. 7. Cefepime 2 grams IV b.i.d. 8. Vitamin D3. 9. Plavix 75 mg p.o. daily. 10.Santyl. 11.Colace. 12.Lexapro. 13.Iron sulfate. 14.Neurontin. 15.Glycerine. 16.NovoLog. 17.Levemir. 18.Zaroxolyn. 19.Multivitamin. 20.Oxymetazoline. 21.Ultram. 22.Doses reviewed. PHYSICAL EXAMINATION: Alert and oriented times three. Pulse 85, blood pressure 150/89, respiration 16, temperature 98 degrees, pulse ox 94% on room air. HEENT: Conjunctivae normal. NECK: No JVD. CARDIOVASCULAR: S1, S2 muffled. RESPIRATORY SYSTEM: Breath sounds diminished at the bases. Bilateral scattered rhonchi and crackles. ABDOMEN: Soft, nontender. LEGS: Bilateral significant ulceration lesions and significant foul-smelling also present. LABS: WBC 16.2, hemoglobin 9.2, sodium 133. ASSESSMENT: 1. Acute bilateral leg ulcers, acute on chronic left more than the right with sepsis, possible sepsis present on admission. 2. History of recent left popliteal artery atherectomy by Dr. Galindo. 3. Peripheral vascular disease. 4. Hyponatremia. 5. Increased creatinine with chronic kidney stage III. 6. Severe pain. 7. Anemia, normocytic anemia of chronic disease. 8. History of atrial fibrillation, chronic. 9. History of coronary artery disease. 10.History of congestive heart failure. 11.History of chronic obstructive pulmonary disease. 12.Diabetes mellitus type 2. 13.Hypertension. 14.Hyperlipidemia. 15.History of degenerative joint disease. 16.History of sleep apnea. 17.History of pulmonary hypertension. 18.Severe mitral regurgitation as well as severely calcified mitral anulus, status post repair in October 2018. 19.Diabetic peripheral neuropathy. 20.Chronic hypoxic respiratory failure on 2 L nasal cannula. 21.History of coronary artery disease, coronary artery bypass grafting, stent. 22.History of adenoidectomy. 23.History of cardiac valve replacement. 24.History of depression. 25.Remote history of nicotine dependence. RECOMMENDATIONS AND DISCUSSION: I recommend to continue current medications, symptomatic treatment. We will initiate broad-spectrum IV antibiotics. Obtain the cultures. Otherwise, vascular surgery input appreciated. The patient had extensive lesions of both lower legs. We will closely monitor and follow the patient closely with Dr. Galindo as well. The prognosis extremely guarded. Continue the rest of the medications. Guarded prognosis. Further recommendations to follow. MMODL / IJN: [id number] /
[2019-06-08] MEDS: ESCITALOPRAM 10 MG TAB PO SCH (20:46)
[2019-06-08] MEDS: ATORVASTATIN 40 MG TAB PO SCH (20:46)
[2019-06-08] MEDS: INSULIN DETEMIR (LEVEMIR) 100 UNIT/ML SYR SQ SCH (20:47)
[2019-06-08 21:04] LABS: Glucose,Whole Blood 187 mg/dL (75-99)
--- NOTE | 2019-06-08 23:50 | P.CONS ---
History of Present Illness - Reason for Consult Consult date: 06/08/19 bilateral leg wound and cellulitis Requesting physician: Wallace Marrero - Chief Complaint bilateral leg non healing wounds and pain x weeks - History of Present Illness Patient is a 74-year-old male with a past medical history significant for chronic nonhealing wound to his lower extremity that has been going on for the last few weeks to months and is under care of Dr. 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 and has been complaining of more pain and discomfort to his bilateral lower extremity wound patient describes the pain to be throbbing worse at the time of dressing changes with intensity almost 10 out of 10 when severe with associated swelling and redness patient denies any high-grade fever or chills on arrival to the ER the patient has been afebrile patient did have a white count of 16.5 kidney function has been normal local wound culture has been obtained which are currently growing gram-negative bacilli blood culture has been negative so far infectious disease has been consulted for further recommendation regarding antibiotic therapy. Review of Systems Positive point has been mentioned HPI rest of the systems are negative Past Medical History Past Medical History: Atrial Fibrillation, Coronary Artery Disease (CAD), Heart Failure, COPD, Diabetes Mellitus, Eye Disorder, Hyperlipidemia, Hypertension, Osteoarthritis (OA), Pneumonia, Renal Disease, Sleep Apnea/CPAP/BIPAP, Vascular Disorder Additional Past Medical History / Comment(s): Chronic anemia/procrit, hx CKD stage III, pulmonary HTN, home oxygen continuous at 2L NC, decreased vision bilaterally since CABG surgery, neuropathy bilateral legs/feet, chronic bilateral leg/foot pain, severe PVD, past bilateral lower leg/foot wounds and cellulitis, current bilateral lower leg wounds, sepsis d/t leg wounds 2019, mild gastritis, diverticular disease. no cpap used History of Any Multi-Drug Resistant Organisms: None Reported Past Surgical History: Adenoidectomy, Cardiac Valve Replacement, Heart Cathete rization, Heart Catheterization With Stent, Tonsillectomy Additional Past Surgical History / Comment(s): 04/22/19 L leg angiogram, FAUSTINO, mitral valve repair 10/31/18, EGD, colonoscopies. one cardiac stent, Vascular surgery May 28 left leg Past Anesthesia/Blood Transfusion Reactions: No Reported Reaction Additional Past Anesthesia/Blood Transfusion Reaction / Comm: DIFF IV STARTS Date of Last Stent Placement:: fall 2018 Past Psychological History: Depression Additional Psychological History / Comment(s): . Smoking Status: Former smoker Past Alcohol Use History: Occasional Additional Past Alcohol Use History / Comment(s): Pt started smoking in 1957 and quit in 2007. He smoked pipe. Past Drug Use History: None Reported - Past Family History Father Family Medical History: Cancer Additional Family Medical History / Comment(s): stomach Mother Family Medical History: Congestive Heart Failure (CHF) Additional Family Medical History / Comment(s): AT AGE 68 Brother(s) Family Medical History: Cancer Medications and Allergies Home Medications Medication Instructions Recorded Confirmed Type Cholecalciferol [Vitamin D3 (25 2,000 unit PO DAILY 01/04/16 06/07/19 History Mcg = 1000 Iu)] Ferrous Sulfate [Iron (65 MG 325 mg PO DAILY 01/04/16 06/07/19 History Elemental)] Multivitamins, Thera [Multivitamin 1 tab PO DAILY 01/09/17 06/07/19 History (formulary)] Aspirin 81 mg PO DAILY 11/29/18 06/07/19 History Metoprolol Tartrate [Lopressor] 50 mg PO BID 11/29/18 06/07/19 History Atorvastatin [Lipitor] 40 mg PO HS tab 12/13/18 06/07/19 Rx Insulin Detemir (Levemir) [Levemir] 12 unit SQ HS syr 01/18/19 06/07/19 Rx Magnesium Oxide [Mag-Ox] 400 mg PO BID 30 Days #60 tab 01/23/19 06/07/19 Rx INSULIN LISPRO (humaLOG) [humaLOG] See Protocol SQ AC-TID 04/17/19 06/07/19 History Hydrocodone/Acetaminophen [Gregory 1 tab PO Q8HR 05/07/19 06/07/19 History 5-325] Acetaminophen [Tylenol] 650 mg PO TID 05/24/19 06/07/19 History Albuterol Inhaler [Ventolin Hfa 2 puff INHALATION RT-Q6H PRN 05/24/19 06/07/19 History Inhaler] Clopidogrel Bisulfate [Plavix] 75 mg PO DAILY 05/24/19 06/07/19 History Collagenase [Santyl] 1 applic TOPICAL HS 05/24/19 06/07/19 History Darbepoetin Ruddy [Aranesp] 40 mcg IJ TU 05/24/19 06/07/19 History Docusate [Colace] 100 mg PO DAILY 05/24/19 06/07/19 History Escitalopram [Lexapro] 10 mg PO HS 05/24/19 06/07/19 History Furosemide [Lasix] 80 mg PO BID 05/24/19 06/07/19 History Gabapentin [Neurontin] 100 mg PO BID 05/24/19 06/07/19 History Heparin Sodium,Porcine [Heparin 5,000 unit SQ Q12HR 05/24/19 06/07/19 History Sodium] Metolazone [Zaroxolyn] 2.5 mg PO TUFR 05/24/19 06/07/19 History Oxymetazoline 0.05% Nasl [place] 1 spray EA NOSTRIL Q4HR PRN 05/24/19 06/07/19 History [Afrin 0.05% Nasal [place]] Sennosides [Senna] 8.6 mg PO DAILY 05/24/19 06/07/19 History Sodium Chloride [Saline Nasal 1 spray EA NOSTRIL Q2HR PRN 05/24/19 06/07/19 History [place]] Acetaminophen [Tylenol] 650 mg PO Q4H PRN 06/07/19 06/07/19 History Bisacodyl 5 mg PO Q24H PRN 06/07/19 06/07/19 History Glucagon Emergency Kit 1 mg IM ONCE PRN 06/07/19 06/07/19 History Glycerin Adult Suppository 1 supp RECTAL Q24H PRN 06/07/19 06/07/19 History Lactobacillus Acidophilus 1 tab PO DAILY 06/07/19 06/07/19 History [Acidophilus] Sodium Chloride [Saline Nasal 1 spray EA NOSTRIL QID PRN 06/07/19 06/07/19 History [place]] Zinc Oxide Ointment 1 applic TOPICAL TID 06/07/19 06/07/19 History traMADol HCl [Ultram] 50 mg PO Q6H PRN 06/07/19 06/07/19 History Allergies Allergy/AdvReac Type Severity Reaction Status Date / Time No Known Allergies Allergy Verified 06/07/19 19:09 Physical Exam Vitals: Vital Signs Temp Pulse Pulse Resp BP BP Pulse Ox 06/08/19 14:20 98.0 F 85 16 153/89 94 L 06/08/19 06:12 98.9 F 68 16 131/66 100 06/07/19 22:10 100 06/07/19 20:00 97.7 F 77 18 152/68 100 06/07/19 18:24 65 17 143/70 100 Intake and Output 06/08/19 06/08/19 06/08/19 06:59 14:59 22:59 Intake Total 700 Balance 700 Intake: Oral 700 Other: Voiding Method Urinal # Voids 3 2 GENERAL DESCRIPTION: Elderly male lying in bed, no distress. No tachypnea or accessory muscle of respiration use. HEENT: Shows Pallor , no scleral icterus. Oral mucous membrane is dry. No pharyngeal erythema or thrush NECK: Trachea central, no thyromegaly. LUNGS: Unlabored breathing. Clear to auscultation anteriorly. No wheeze or crackle. HEART: S1, S2, regular rate and rhythm. No loud murmur ABDOMEN: Soft, no tenderness , guarding or rigidity, no organomegaly EXTREMITIES: Patient did have multiple wounds to bilateral lower extremity with significant amount of slough tissue and some necrotic changes minimal surrounding redness no foul-smelling drainage. SKIN: No rash, no masses palpable. NEUROLOGICAL: The patient is awake, alert, oriented x3, mood and affect agitated. Results CBC & Chem 7: 06/08/19 08:01 06/08/19 08:01 Labs: Abnormal Lab Results - Last 24 Hours (Table) 06/07/19 06/07/19 06/07/19 Range/Units 16:35 16:35 21:38 WBC (3.8-10.6) k/uL RBC 3.52 L (4.30-5.90) m/uL Hgb 10.4 L (13.0-17.5) gm/dL Hct 32.5 L (39.0-53.0) % MCHC (31.0-37.0) g/dL RDW 16.7 H (11.5-15.5) % Neutrophils # 8.3 H (1.3-7.7) k/uL Lymphocytes # 0.8 L (1.0-4.8) k/uL Sodium 133 L (137-145) mmol/L Chloride 90 L (98-107) mmol/L Carbon Dioxide 37 H (22-30) mmol/L BUN 81 H (9-20) mg/dL Creatinine 1.57 H (0.66-1.25) mg/dL Glucose 147 H (74-99) mg/dL POC Glucose (mg/dL) 160 H (75-99) mg/dL Calcium (8.4-10.2) mg/dL Alkaline Phosphatase 132 H (38-126) U/L Albumin 3.3 L (3.5-5.0) g/dL 06/08/19 06/08/19 06/08/19 Range/Units 08:01 08:01 11:52 WBC 16.5 H (3.8-10.6) k/uL RBC 3.19 L (4.30-5.90) m/uL Hgb 9.3 L (13.0-17.5) gm/dL Hct 30.3 L (39.0-53.0) % MCHC 30.7 L (31.0-37.0) g/dL RDW 16.6 H (11.5-15.5) % Neutrophils # 15.2 H (1.3-7.7) k/uL Lymphocytes # 0.6 L (1.0-4.8) k/uL Sodium 133 L (137-145) mmol/L Chloride 93 L (98-107) mmol/L Carbon Dioxide 37 H (22-30) mmol/L BUN 71 H (9-20) mg/dL Creatinine (0.66-1.25) mg/dL Glucose 66 L (74-99) mg/dL POC Glucose (mg/dL) 165 H (75-99) mg/dL Calcium 8.3 L (8.4-10.2) mg/dL Alkaline Phosphatase (38-126) U/L Albumin (3.5-5.0) g/dL Assessment and Plan Assessment: -patient with bilateral lower extremity chronic nonhealing wound worse on the left leg than on the right leg in this patient who did have underlying peripheral arterial disease with concern for worsening of his wound more likely secondary to ischemia there is a component of possible cellulitis in view of elevated white count and minimal redness and wound culture currently showing gram-negative bacilli (1) Open wound of both legs with complication Current Visit: Yes Status: Acute Code(s): S81.801A - UNSPECIFIED OPEN WOUND, RIGHT LOWER LEG, INITIAL ENCOUNTER; S81.802A - UNSPECIFIED OPEN WOUND, LEFT LOWER LEG, INITIAL ENCOUNTER SNOMED Code(s): 86666660 (2) Bilateral lower leg cellulitis Current Visit: Yes Status: Acute Code(s): L03.116 - CELLULITIS OF LEFT LOWER LIMB; L03.115 - CELLULITIS OF RIGHT LOWER LIMB SNOMED Code(s): 707895212 Plan: 1-we will add cefepime 2 g every 12 for 2-local wound care with Santyl followed by moist dressing 3-both podiatry and vascular are on the case has been talking about possible amputation, need for further debridement and local wound care per podiatry and vascular surgery We will follow on clinical condition and cultures to further adjust medication if needed Thank you for this consultation will follow this patient along with you Time with Patient: Greater than 30
[2019-06-09] MEDS: HYDROcodone/APAP 5-325MG 1 EACH TAB PO SCH ×3 (00:26→16:20)
[2019-06-09] MEDS: CEFEPIME 2 GM in SODIUM CHLORIDE 0.9% 100 ML IVPB SCH ×2 (05:59→16:24)
[2019-06-09] MEDS: SODIUM CHLORIDE 0.9% 1,000 ML IV SCH ×2 (06:00→12:42)
[2019-06-09 06:37] LABS: Anisocytosis Slight; Basophils % (A) 0 %; Eosinophils # (A) 0.2 k/uL (0-0.7); Eosinophils % (A) 2 %; HCT 27.8 % (39.0-53.0); HGB 8.8 gm/dL (13.0-17.5); Hypochromasia Slight; Lymphocytes # (A) 0.6 k/uL (1.0-4.8); Lymphocytes % (A) 4 %; MCH 30.2 pg (25.0-35.0); MCHC 31.5 g/dL (31.0-37.0); MCV 95.7 fL (80.0-100.0); Macrocytosis Slight; Mean Platelet Volume 7.1; Monocytes # (A) 0.7 k/uL (0-1.0); Monocytes % (A) 5 %; Neutrophils # (A) 13.4 k/uL (1.3-7.7); Neutrophils % (A) 89 %; Platelet Count 285 k/uL (150-450); RDW 16.9 % (11.5-15.5); WBC 15.1 k/uL (3.8-10.6)
[2019-06-09 06:49] LABS: Calcium 7.9 mg/dL (8.4-10.2); Potassium 3.4 mmol/L (3.5-5.1)
[2019-06-09 07:19] LABS: Glucose,Whole Blood 73 mg/dL (75-99)
[2019-06-09] MEDS: INSULIN ASPART (NovoLOG) 100 UNIT/ML VIAL SQ SCH ×4 (08:25→21:39)
[2019-06-09] MEDS: MAGNESIUM OXIDE 400 MG TAB PO SCH ×2 (08:44→21:39)
[2019-06-09] MEDS: GABAPENTIN 100 MG CAP PO SCH ×2 (08:45→21:40)
[2019-06-09] MEDS: METOPROLOL TARTRATE 50 MG TAB PO SCH ×2 (08:45→21:40)
[2019-06-09] MEDS: CHOLECALCIFEROL 1,000 UNIT TAB PO SCH (08:46)
[2019-06-09] MEDS: PANTOPRAZOLE 40 MG/10 ML VIAL IV SCH (08:46)
[2019-06-09] MEDS: SENNOSIDES 8.6 MG TAB PO SCH (08:46)
[2019-06-09] MEDS: MULTIVITAMINS, THERA 1 EACH TAB PO SCH (08:46)
[2019-06-09] MEDS: FERROUS SULFATE 325 MG TAB PO SCH (08:46)
[2019-06-09] MEDS: DOCUSATE 100 MG CAP PO SCH (08:46)
[2019-06-09] MEDS: ASPIRIN 81 MG PO SCH (08:46)
[2019-06-09] MEDS: HEPARIN SODIUM,PORCINE 5,000 UNIT/ML 1 ML VIAL SQ SCH ×2 (08:46→21:39)
[2019-06-09] MEDS: FUROSEMIDE 80 MG TAB PO SCH ×2 (08:46→21:40)
[2019-06-09] MEDS: CLOPIDOGREL 75 MG TAB PO SCH (08:46)
--- NOTE | 2019-06-09 11:03 | PN ---
PROGRESS NOTE 74-year-old gentleman that was admitted to the hospital with bilateral lower extremity cellulitis with pain and ulceration. Cardiology has been consulted because of his cardiac history. At the time of my evaluation this morning, patient is still complaining of foot pain bilaterally, but is otherwise does not have chest pain or difficulty in breathing. He has known CAD and has had bypass surgery and also has atrial fibrillation, COPD, and diabetes. PHYSICAL EXAMINATION: On exam, heart rate is 78 beats per minute. Blood pressure is 132/60, respiratory rate is 18. Chest exam reveals good air entry bilaterally. Heart exam reveals first and second heart sounds. No gallop. Irregular rhythm. Systolic murmur at the left lower sternal border. Abdomen is soft. Exam of extremities reveals bilateral lower extremity foot ulceration, diminished pulses, chronic vascular changes with multiple ulcers. ASSESSMENT: 1. Coronary artery disease status post angioplasty, status post mitral valve repair. 2. History of atrial fibrillation. 3. History of left-sided peripheral vascular insufficiency. PLAN: I am going to continue the aspirin, Lipitor, Plavix, Lasix, Lopressor that he is currently on. The patient had an echocardiogram in December of 2018 that revealed normal LV systolic function with severe mitral regurgitation. EKG on this admission reveals sinus rhythm with nonspecific ST-T wave changes. MMODL / IJN: [id number] /
[2019-06-09 12:37] LABS: Glucose,Whole Blood 123 mg/dL (75-99)
[2019-06-09] MEDS ORDERED: Potassium Replacement Protocol 1 EACH MISC MISCELLANE PRN (12:52)
[2019-06-09] MEDS: POTASSIUM CHLORIDE ER 20 MEQ TAB.ER PO SCH (14:51)
[2019-06-09] MEDS: MORPHINE SULFATE 4 MG/ML SYRINGE IV PRN (15:38)
[2019-06-09] MEDS: COLLAGENASE 250 UNIT/GM OINTMENT 30 GM TUBE TOPICAL SCH (15:41)
[2019-06-09 17:03] LABS: Glucose,Whole Blood 120 mg/dL (75-99)
--- NOTE | 2019-06-09 18:30 | PN ---
PROGRESS NOTE DATE OF SERVICE: 06/09/2019 This 74-year-old gentleman who was admitted with significant leg ulcers, and also had recent peripheral vascular procedure by Dr. Talavera and Dr. Suazo are following the patient closely. The patient was also seen by Cardiology as well. The patient had significant skin lesion as mentioned earlier with possible Pseudomonas. The patient on broad spectrum IV antibiotics and being followed by multiple consultants. PAST MEDICAL HISTORY: Reviewed. REVIEW OF SYSTEMS: Cardiovascular: As mentioned earlier. Respiratory: As mentioned earlier. GI: As mentioned earlier. no dysuria. CENTRAL NERVOUS SYSTEM: No numbness or weakness. MEDICATIONS: Reviewed and include: 1. Tylenol 650 q.4 p.r.n. 2. [place] 5 mg q.8 p.r.n. 3. Aspirin. 4. Lipitor 40 mg q.h.s. 5. Dulcolax. 6. Cefepime 2 g p.o. b.i.d. 7. Plavix 75 mg. 8. Santyl. 9. Lexapro. 10.Iron sulfate. 11.Lasix. 12.Neurontin. 13.Heparin. 14.Levemir. 15.NovoLog. 16.Magnesium oxide. 17.Zaroxolyn. 18.Lopressor. 19.Multivitamins. 20.Narcan. 21.Protonix. 22.Senokot. 23.Ultram. 24.Doses reviewed. PHYSICAL EXAM: Patient is alert, oriented x2. Pulse 72. Blood pressure 148/70, respiration 18, temp 98.4, pulse ox 94% on 2 L. HEENT: Conjunctivae normal. Neck is no JVD. CARDIOVASCULAR: S1, S2 muffled. RESPIRATORY: Breath sounds diminished in the bases. A few scattered rhonchi and crackles. ABDOMEN: Soft, nontender. Legs: Significant swelling and infection of the left leg present. CENTRAL NERVOUS SYSTEM: No focal deficits. LAB STUDIES: WBC 15.2, hemoglobin 8.8, sodium 136, potassium is 3.4. ASSESSMENT: 1. Acute bilateral leg ulcers, acute on chronic, left more than the right with possible sepsis present on admission. 2. History of recent left popliteal artery atherectomy by Dr. Galindo. 3. Peripheral vascular disease. 4. Hyponatremia. 5. Increased creatinine with chronic kidney disease, Stage III. 6. Severe pain. 7. Anemia, normocytic anemia of chronic disease. 8. History of atrial fibrillation chronic. 9. History of coronary artery disease. 10.History of congestive heart failure. 11.History of chronic obstructive pulmonary disease. 12.Diabetes type 2. 13.Hypertension. 14.Hyperlipidemia. 15.History of degenerative joint disease. 16.History of sleep apnea. 17.History of pulmonary hypertension. 18.History of mitral regurgitation as well as severely calcified mitral anulus, status post repair in October 2018. 19.Diabetic peripheral neuropathy. 20.Chronic hypoxic respiratory failure on 2 L nasal cannula. 21.History of coronary artery disease, coronary artery bypass grafting, stent. 22.History of adenoidectomy. 23.History of cardiac valve replacement. 24.History of depression. 25.Remote history of nicotine dependence. RECOMMENDATIONS AND DISCUSSION: In this 74-year-old gentleman who presented with multiple complex medical issues, we will monitor the patient closely, continue the current medications, management and symptomatic treatment. Otherwise, at this time, I recommend continue with antibiotics. Follow the cultures. Wound cultures showed gram-negative bacilli. Otherwise, closely follow with vascular surgery and Cardiology. Further recommendations to follow. MMODL / IJN: [id number] /
[2019-06-09 20:37] LABS: Glucose,Whole Blood 229 mg/dL (75-99)
[2019-06-09] MEDS: INSULIN DETEMIR (LEVEMIR) 100 UNIT/ML SYR SQ SCH (21:39)
[2019-06-09] MEDS: ESCITALOPRAM 10 MG TAB PO SCH (21:39)
[2019-06-09] MEDS: ATORVASTATIN 40 MG TAB PO SCH (21:40)
[2019-06-10 01:49] LABS: Glucose,Whole Blood 162 mg/dL (75-99)
[2019-06-10] MEDS: CEFEPIME 2 GM in SODIUM CHLORIDE 0.9% 100 ML IVPB SCH ×2 (03:38→17:24)
[2019-06-10 07:16] LABS: Glucose,Whole Blood 130 mg/dL (75-99)
[2019-06-10] MEDS: INSULIN ASPART (NovoLOG) 100 UNIT/ML VIAL SQ SCH ×4 (08:07→23:02)
[2019-06-10] MEDS: PANTOPRAZOLE 40 MG/10 ML VIAL IV SCH (08:45)
[2019-06-10] MEDS: HEPARIN SODIUM,PORCINE 5,000 UNIT/ML 1 ML VIAL SQ SCH ×2 (08:45→23:00)
[2019-06-10] MEDS: CHOLECALCIFEROL 1,000 UNIT TAB PO SCH (08:46)
[2019-06-10] MEDS: SENNOSIDES 8.6 MG TAB PO SCH (08:46)
[2019-06-10] MEDS: HYDROcodone/APAP 5-325MG 1 EACH TAB PO SCH ×4 (08:46→23:05)
[2019-06-10] MEDS: MAGNESIUM OXIDE 400 MG TAB PO SCH ×2 (08:46→19:27)
[2019-06-10] MEDS: DOCUSATE 100 MG CAP PO SCH (08:46)
[2019-06-10] MEDS: METOPROLOL TARTRATE 50 MG TAB PO SCH ×2 (08:46→19:27)
[2019-06-10] MEDS: CLOPIDOGREL 75 MG TAB PO SCH (08:46)
[2019-06-10] MEDS: MULTIVITAMINS, THERA 1 EACH TAB PO SCH (08:47)
[2019-06-10] MEDS: GABAPENTIN 100 MG CAP PO SCH ×2 (08:47→19:27)
[2019-06-10] MEDS: COLLAGENASE 250 UNIT/GM OINTMENT 30 GM TUBE TOPICAL SCH (08:47)
[2019-06-10] MEDS: FERROUS SULFATE 325 MG TAB PO SCH (08:47)
[2019-06-10] MEDS: ASPIRIN 81 MG PO SCH (08:47)
[2019-06-10] MEDS: FUROSEMIDE 80 MG TAB PO SCH ×2 (08:47→19:27)
[2019-06-10 09:11] LABS: Anisocytosis Slight; Basophils % (A) 0 %; Eosinophils # (A) 0.4 k/uL (0-0.7); Eosinophils % (A) 4 %; HCT 27.4 % (39.0-53.0); HGB 8.6 gm/dL (13.0-17.5); Hypochromasia Slight; Lymphocytes # (A) 0.4 k/uL (1.0-4.8); Lymphocytes % (A) 3 %; MCH 30.2 pg (25.0-35.0); MCHC 31.3 g/dL (31.0-37.0); MCV 96.5 fL (80.0-100.0); Macrocytosis Slight; Mean Platelet Volume 7.4; Monocytes # (A) 0.6 k/uL (0-1.0); Monocytes % (A) 5 %; Neutrophils % (A) 88 %; Platelet Count 275 k/uL (150-450); RBC 2.84 m/uL (4.30-5.90); RDW 16.8 % (11.5-15.5); WBC 12.5 k/uL (3.8-10.6)
[2019-06-10] MEDS: MORPHINE SULFATE 4 MG/ML SYRINGE IV PRN ×2 (09:23→19:24)
[2019-06-10 09:39] LABS: African American GFR (CKD) >90 (>60 ml/min/1.73 sqM); Anion Gap 5 mmol/L; Blood Urea Nitrogen 46 mg/dL (9-20); Calcium 8.2 mg/dL (8.4-10.2); Carbon Dioxide 32 mmol/L (22-30); Chloride 98 mmol/L (98-107); Glucose 151 mg/dL (74-99); Non-African American GFR(CKD) 78 (>60 ml/min/1.73 sqM); Potassium 4.1 mmol/L (3.5-5.1); Sodium 135 mmol/L (137-145)
--- NOTE | 2019-06-10 10:16 | PN ---
PROGRESS NOTE DATE OF SERVICE: 06/09/2019. REASON FOR FOLLOWUP: Bilateral extremity wound cellulitis. INTERVAL HISTORY: The patient is currently afebrile, has been breathing comfortably. Denies having any chest pain or any cough. Complaining of pain to the left wound area, but no worsening. No diarrhea. PHYSICAL EXAMINATION: Blood pressure 144/69 with a pulse of 78, temperature 98.3, he is 98% on 2 L nasal cannula. General description is an elderly male, lying in bed in no distress. RESPIRATORY SYSTEM: Unlabored breathing, clear to auscultation anteriorly. HEART: S1, S2. Regular rate and rhythm. ABDOMEN: Soft, no tenderness. LEGS: Wound currently wrapped up, no obvious drainage on the dressing. LABS: Hemoglobin 8.8, white count 15.1, hematocrit 1.02. Leg wound cultures with gram- negative bacilli. DIAGNOSTIC IMPRESSION AND PLAN: Patient with bilateral lower extremity wound with secondary cellulitis on skin. Patient is currently covered with cefepime, will wait for the culture to finalize. Await for the surgical debridement or recommendation by Vascular Surgery. Continue supportive care. MMODL / IJN: [id number] /
[2019-06-10 12:24] LABS: Glucose,Whole Blood 172 mg/dL (75-99)
[2019-06-10 17:06] LABS: Glucose,Whole Blood 211 mg/dL (75-99)
--- NOTE | 2019-06-10 18:58 | PN ---
PROGRESS NOTE DATE OF SERVICE: 06/10/2019 This 74-year-old gentleman admitted with significant bilateral leg ulcers, left more than the right, had Pseudomonas grown from the cultures on multiple occasions. The patient also had peripheral artery procedure by Dr. Galindo. Dr. Suazo has also seen the patient as well as Dr. Talavera. Because of lack of improvement, Dr. Suazo, Dr. Talavera and Dr. Galindo is recommending amputation above the knee on the left side. Patient being closely monitored. Dr. Rodrigues has seen the patient also. PAST MEDICAL HISTORY: Reviewed. REVIEW OF SYSTEMS: Cardiovascular: No angina or palpitations. Respiratory: As mentioned earlier. GI as mentioned. : No dysuria. CENTRAL NERVOUS SYSTEM: No numbness or weakness. CURRENT MEDICATIONS: Reviewed and include: 1. Tylenol 650 q.4 p.r.n. 2. [place] q8. 3. Ventolin. 4. Aspirin 81 mg. 5. Lipitor. 6. Dulcolax. 7. Cefepime 2 grams IV b.i.d. 8. Plavix 75 mg p.o. daily. 9. Santyl 1 application daily. 10.Colace 100 mg p.o. daily. 11.Lexapro 10 mg q.h.s. 12.Iron sulfate. 13.Lasix. 14.Neurontin. 15.Heparin 5000 subcu b.i.d. 16.Levemir. 17.Magnesium oxide. 18.Zaroxolyn. 19.Lopressor. 20.Multivitamins. 21.Narcan. 22.Protonix. 23.Senokot. 24.Ultram. PHYSICAL EXAMINATION: Patient is alert, oriented x2. Pulse is 67. Blood pressure 120/77, respiration 18, temp 97.4, pulse ox 98% on 2 L. HEENT: Conjunctivae normal. NECK: No JVD. CARDIOVASCULAR: S1, S2 muffled. RESPIRATORY: Breath sounds diminished in the bases. A few scattered rhonchi. No crackles. ABDOMEN: Soft, nontender. LEGS: Significant ulcerations, swelling and foul-smelling left lower leg present with necrotic areas. Pulses diminished bilaterally. NERVOUS SYSTEM: Higher functions as mentioned earlier. Mild diffuse weakness. LABS: WBC 12.2, hemoglobin is 8.6, sodium 135. ASSESSMENT: 1. Acute bilateral leg ulcers, acute on chronic with necrotic areas with left more than the right with possible sepsis present on admission with Pseudomonas and presumptive Staph. 2. History of recent popliteal artery atherectomy by Dr. Galindo. 3. History of peripheral vascular disease. 4. Hyponatremia. 5. Increased creatinine with chronic kidney stage III. 6. Severe pain. 7. Anemia, normocytic anemia of chronic disease. 8. Change in mental status metabolic encephalopathy, acute, multifactorial. 9. History atrial fibrillation, chronic. 10.History coronary artery disease. 11.History of congestive heart failure, ejection fraction unknown. 12.History of chronic obstructive pulmonary disease. 13.Diabetes mellitus type 2. 14.Hypertension. 15.Hyperlipidemia. 16.History of degenerative joint disease. 17.History of sleep apnea. 18.History of pulmonary hypertension. 19.History of mitral regurgitation as well as severe calcified mitral annulus status post repair in October 2018. 20.Diabetic peripheral neuropathy. 21.Chronic hypoxic respiratory failure on 2 L nasal cannula. 22.History of coronary artery disease, coronary artery bypass grafting, stent. 23.History of adenoidectomy. 24.History of cardiac valve replacement. 25.History of depression. 26.Remote history of nicotine dependence. 27.FULL CODE. RECOMMENDATIONS AND DISCUSSION: This 74-year-old gentleman who presented with multiple complex medical issues, at this time, we will monitor the patient closely. As mentioned earlier, I have discussed the case at length with Dr. Suazo, who recommended above-knee amputation on the left side. I have discussed the case at length with Brissa Anderson, the patient's and the daughter Cheyanne over the phone. They will also talk with the family and then we will go from there. Dr. Suazo has also recommend a cardiology consultation preop. We will also obtain that. Otherwise, continue to monitor. Guarded prognosis. Further recommendations to follow. If the family agrees and the patient consents, I would recommend amputation. Once again the prognosis guarded because of multiple complex medical issues. MMODL / IJN: [id number] /
--- NOTE | 2019-06-10 19:22 | PN ---
PROGRESS NOTE This patient is a 74-year-old gentleman with history of peripheral vascular disease, diabetes, hypertension, hyperlipidemia. The patient had an angiogram and balloon angioplasty of the left lower extremity by Dr. Galindo. The patient has a left ATPT is totally occluded. Patient has multiple ulcers noted on the left lower extremity and right lower extremity. Discussed with Dr. Galindo and Dr. Talavera. The patient has no indication for further surgical intervention as far as anterior tibial, posterior tibial is occluded totally with large ulcer on both lower extremities. Discussed with the and the family. The patient will need a below-knee amputation if it is cleared by Cardiology and they also have been discussing with the family with possible hospice. If cleared from cardiology, we will proceed for amputation. MMODL / IJN: [id number] /
[2019-06-10] MEDS: ESCITALOPRAM 10 MG TAB PO SCH (19:27)
[2019-06-10] MEDS: ATORVASTATIN 40 MG TAB PO SCH (19:27)
--- NOTE | 2019-06-10 20:13 | PN ---
PROGRESS NOTE DATE OF SERVICE: 06/10/2019 REASON FOR FOLLOWUP: Bilateral lower extremity wound and a question of cellulitis. INTERVAL HISTORY: The patient is currently afebrile. Patient has been breathing comfortably. The patient denies having any chest pain, shortness of breath or cough. No abdominal pain. Main symptom remains to be pain in his lower extremity. The patient seemed to be upset why nothing has been done over the last few months and why his pain is not being addressed. PHYSICAL EXAMINATION: Blood pressure 127/72 with a pulse of 67, temperature 97.4, he is 99% on 2 L nasal cannula. General description is an elderly male lying in bed in no distress. RESPIRATORY SYSTEM: Unlabored breathing. Clear to auscultation anteriorly. HEART S1, S2. Regular rate and rhythm. ABDOMEN: Soft, no tenderness. LEGS: Currently wrapped up. No obvious drainage on the dressing. LABS: White count of 12.5, BUN of 46, creatinine 0.95. DIAGNOSTIC IMPRESSION AND PLAN: Patient with bilateral lower extremity wound with secondary cellulitis. Culture has been Pseudomonas and presumptive Staph Aureus. The patient is covered with cefepime. Local care to continue with her podiatry and vascular surgery. The patient did have significant peripheral arterial disease, more likely responsible for this pain, has been told multiple times, the pain medication will addressed by the admitting physician and not by ID. The patient seemed to be very upset and not happy with the care. May consider transferring to a tertiary care. Continue cefepime at this point. In view of overall improvement in his white count and no fever, the patient is on adequate antibiotic therapy at this point. MMODL / IJN: [id number] /
[2019-06-10 21:15] LABS: Glucose,Whole Blood 138 mg/dL (75-99)
[2019-06-10] MEDS: INSULIN DETEMIR (LEVEMIR) 100 UNIT/ML SYR SQ SCH (23:02)
[2019-06-11] MEDS: CEFEPIME 2 GM in SODIUM CHLORIDE 0.9% 100 ML IVPB SCH ×2 (04:35→17:15)
[2019-06-11 07:30] LABS: Glucose,Whole Blood 96 mg/dL (75-99)
[2019-06-11] MEDS: MULTIVITAMINS, THERA 1 EACH TAB PO SCH (08:08)
[2019-06-11] MEDS: METOPROLOL TARTRATE 50 MG TAB PO SCH ×2 (08:08→21:13)
[2019-06-11] MEDS: PANTOPRAZOLE 40 MG TABLET PO SCH (08:08)
[2019-06-11] MEDS: CHOLECALCIFEROL 1,000 UNIT TAB PO SCH (08:08)
[2019-06-11] MEDS: SENNOSIDES 8.6 MG TAB PO SCH (08:08)
[2019-06-11] MEDS: HYDROcodone/APAP 5-325MG 1 EACH TAB PO SCH ×2 (08:09→17:16)
[2019-06-11] MEDS: FUROSEMIDE 80 MG TAB PO SCH ×2 (08:09→21:12)
[2019-06-11] MEDS: GABAPENTIN 100 MG CAP PO SCH ×2 (08:09→21:18)
[2019-06-11] MEDS: FERROUS SULFATE 325 MG TAB PO SCH (08:09)
[2019-06-11] MEDS: DOCUSATE 100 MG CAP PO SCH (08:09)
[2019-06-11] MEDS: MAGNESIUM OXIDE 400 MG TAB PO SCH ×2 (08:10→21:13)
[2019-06-11] MEDS: INSULIN ASPART (NovoLOG) 100 UNIT/ML VIAL SQ SCH ×4 (08:10→21:14)
[2019-06-11] MEDS: CLOPIDOGREL 75 MG TAB PO SCH (08:11)
[2019-06-11] MEDS: ASPIRIN 81 MG PO SCH (08:11)
[2019-06-11] MEDS: HEPARIN SODIUM,PORCINE 5,000 UNIT/ML 1 ML VIAL SQ SCH ×2 (08:11→21:16)
[2019-06-11] MEDS: COLLAGENASE 250 UNIT/GM OINTMENT 30 GM TUBE TOPICAL SCH (08:12)
[2019-06-11] MEDS: MORPHINE SULFATE 4 MG/ML SYRINGE IV PRN ×4 (08:16→21:24)
[2019-06-11 09:03] LABS: Anisocytosis Slight; Basophils % (A) 0 %; Eosinophils # (A) 0.6 k/uL (0-0.7); Eosinophils % (A) 5 %; HCT 27.3 % (39.0-53.0); HGB 8.4 gm/dL (13.0-17.5); Hypochromasia Slight; Lymphocytes # (A) 0.3 k/uL (1.0-4.8); Lymphocytes % (A) 3 %; MCH 29.5 pg (25.0-35.0); MCHC 30.9 g/dL (31.0-37.0); MCV 95.4 fL (80.0-100.0); Mean Platelet Volume 6.9; Monocytes # (A) 0.4 k/uL (0-1.0); Monocytes % (A) 4 %; Neutrophils # (A) 10.2 k/uL (1.3-7.7); Neutrophils % (A) 87 %; Platelet Count 302 k/uL (150-450); RBC 2.86 m/uL (4.30-5.90); RDW 16.5 % (11.5-15.5); WBC 11.6 k/uL (3.8-10.6)
[2019-06-11 09:15] LABS: Calcium 8.1 mg/dL (8.4-10.2); Potassium 4.2 mmol/L (3.5-5.1)
--- NOTE | 2019-06-11 11:01 | P.PN ---
Subjective This is a 74-year-old male past medical history significant for coronary artery disease s/p PCI LAD 09/2018 maintained on dual anti-platelet therapy, chronic diastolic heart failure, COPD, diabetes mellitus, hypertension, dyslipidemia, peripheral vascular disease, chronic anemia and valvular heart disease status post mitral valve repair. He follows in the office with Dr. Deng. Dr. Suazo is following the patient closely and has recommended left BKA. Most recent echocardiogram obtained December 2018 reveals preserved LV systolic function with ejection fraction 50-55%, moderate concentric LVH, septal wall motion delay consistent with prior cardiac surgery, moderate aortic valve sclerosis, mild aortic regurgitation, mild to moderate mitral regurgitation with a mean gradient across the valve is 6 mmHg, moderate tricuspid regurgitation and severe pulmonary hypertension with an RVSP of 69 mmHg. He is seen and examined sitting up in bed. He is quite upset regarding the course of his care. He is frustrated about having gotten to this point to have to lose his leg. He denies chest pain, shortness of breath, dizziness or palpitations. He has no orthopnea or PND. Blood pressure 128/72 heart rate 77 afebrile and maintaining oxygen saturation on nasal cannula. Laboratory data reviewed, WBC 11.6, hgb 8.4, plt 302, sodium 134, potassium 4.2, creatinine 1.02 and GFR 72. Currently maintained on aspirin 81 mg daily, Plavix 75 mg daily, atorvastatin 40 mg daily, Lasix 80 mg by mouth twice a day, Zaroxolyn 2.5 mg Monday and Monday and Lopressor 50 mg twice a day. Last dose of plavix was 06/10/2019. GENERAL: Well-appearing, well-nourished and in no acute distress. NECK: Supple without JVD or thyromegaly. LUNGS: Breath sounds clear to auscultation bilaterally. Respiration equal and unlabored. No wheezes, rales or rhonchi. HEART: Regular rate and rhythm with systolic ejection murmur at the left sternal border, no rubs or gallops. S1 and S2 heard. EXTREMITIES: Normal range of motion, erythema and ulcerations with no edema. No clubbing or cyanosis. ASSESSMENT Bilateral lower extremity cellulitis secondary to peripheral arterial disease Peripheral vascular disease s/p revascularization Coronary artery disease s/p PCI LAD Valvular heart disease s/p mitral valve repair COPD Hypertension Dyslipidemia Chronic diastolic heart failure, clinically euvolemic Chronic anemia Leukocytosis PLAN He is free of symptoms of angina and clinically euvolemic. He is not in acute heart failure. There are no absolute contraindications to undergo amputation at this time. He is increased risk given his co-morbid conditions. Recommend cautious fluid administration and optimal blood pressure intraoperatively. Last dose of plavix was 06/10/2019. Optimal clearance is 5 days or will pose increased risk of bleeding. HOLD today and subsequently thereafter until after surgery. PCI was 8 months ago. Nurse Practitioner note has been reviewed, I agree with a documented findings and plan of care. Patient was seen and examined. Objective - Vital Signs Vital signs: Vital Signs Temp 98.1 F 06/11/19 05:15 Pulse 77 06/11/19 05:15 Resp 20 06/11/19 05:15 BP 128/72 06/11/19 05:15 Pulse Ox 95 06/11/19 05:15 Intake & Output 06/10/19 06/11/19 06/11/19 18:59 06:59 18:59 Intake Total 300 Balance 300 Weight 86 kg Intake: Oral 300 Other: Voiding Method Urinal Urinal # Voids 3 2 # Bowel Movements 0 0 - Labs CBC & Chem 7: 06/11/19 08:20 06/11/19 08:20 Labs: Abnormal Lab Results - Last 24 Hours (Table) 06/10/19 06/10/19 06/10/19 Range/Units 12:09 16:52 21:06 WBC (3.8-10.6) k/uL RBC (4.30-5.90) m/uL Hgb (13.0-17.5) gm/dL Hct (39.0-53.0) % MCHC (31.0-37.0) g/dL RDW (11.5-15.5) % Neutrophils # (1.3-7.7) k/uL Lymphocytes # (1.0-4.8) k/uL Sodium (137-145) mmol/L Chloride (98-107) mmol/L Carbon Dioxide (22-30) mmol/L BUN (9-20) mg/dL Glucose (74-99) mg/dL POC Glucose (mg/dL) 172 H 211 H 138 H (75-99) mg/dL Calcium (8.4-10.2) mg/dL 06/11/19 06/11/19 Range/Units 08:20 08:20 WBC 11.6 H (3.8-10.6) k/uL RBC 2.86 L (4.30-5.90) m/uL Hgb 8.4 L (13.0-17.5) gm/dL Hct 27.3 L (39.0-53.0) % MCHC 30.9 L (31.0-37.0) g/dL RDW 16.5 H (11.5-15.5) % Neutrophils # 10.2 H (1.3-7.7) k/uL Lymphocytes # 0.3 L (1.0-4.8) k/uL Sodium 134 L (137-145) mmol/L Chloride 97 L (98-107) mmol/L Carbon Dioxide 33 H (22-30) mmol/L BUN 44 H (9-20) mg/dL Glucose 111 H (74-99) mg/dL POC Glucose (mg/dL) (75-99) mg/dL Calcium 8.1 L (8.4-10.2) mg/dL Microbiology - Last 24 Hours (Table) 06/08/19 04:30 Gram Stain - Final Foot - Left Wound Culture - Final Pseudomonas aeruginosa Staphylococcus aureus 06/07/19 16:35 Blood Culture - Preliminary Blood No Growth after 72 hours
[2019-06-11 11:58] LABS: Glucose,Whole Blood 186 mg/dL (75-99)
[2019-06-11 16:49] LABS: Glucose,Whole Blood 132 mg/dL (75-99)
--- NOTE | 2019-06-11 17:58 | PN ---
PROGRESS NOTE DATE OF SERVICE: 06/11/2019 This 73-year-old gentleman was admitted with significant bilateral leg ulcerations, left more than the right. Pseudomonas was grown from the cultures. The patient had significant ulcerations, foul-smelling, and the patient also had recently a peripheral vascular procedure by Dr. Galindo. According to the vascular surgeon, Dr. Suazo, as well as Dr. Talavera and Dr. Galindo, the patient was recommend amputation; however, the family and the patient would like to obtain a second opinion. At this time multiple consultants are following the patient closely, including Infectious Disease, Dr. Rodrigues. The most recent wound culture is showing Pseudomonas aeruginosa and Staph aureus which is MSSA. Past medical history reviewed. REVIEW OF SYSTEMS: CARDIOVASCULAR SYSTEM: No angina, palpitations. RESPIRATORY SYSTEM: No cough, hemoptysis. GI: No nausea, vomiting. : No dysuria or retention. NERVOUS SYSTEM: The sensorium is improved. CURRENT MEDICATIONS: Noted. 1. Tylenol p.r.n. 2. [place] 5 mg q.8 p.r.n. 3. Aspirin 81 mg p.o. daily. 4. Lipitor 40 mg at bedtime. 5. Dulcolax p.r.n. 6. Cefepime 2 grams IV b.i.d. 7. Vitamin D3. 8. Santyl topically daily. 9. Colace 100 mg daily. 10.Lexapro. 11.Iron sulfate. 12.Lasix 80 mg p.o. b.i.d. 13.Neurontin 100 mg p.o. b.i.d. 14.Heparin 5000 units subcutaneously b.i.d. 15.NovoLog scale. 16.Levemir 12 units subcutaneously at bedtime. 17.Magnesium oxide 400 mg p.o. b.i.d. 18.Zaroxolyn 2.5 mg Monday, Monday. 19.Lopressor 50 mg p.o. b.i.d. 20.Morphine sulfate. 21.Multivitamins. 22.Narcan. 23.Afrin. 24.Protonix 40 mg p.o. b.i.d. 25.Senokot. 26.Ultram. PHYSICAL EXAMINATION: Patient is alert, oriented x3. Pulse 79, blood pressure 138/68, respiration 20, temperature 98.2, pulse ox 98% on room air. HEENT: Conjunctivae normal. NECK: No jugular venous distention. CARDIOVASCULAR SYSTEM: S1, S2 muffled. RESPIRATORY SYSTEM: Breath sounds diminished at the bases. A few scattered rhonchi and crackles. ABDOMEN: Soft, non-tender. No mass palpable. LEGS: No edema. No swelling. Significant ulcerations and necrotic changes on the left leg present. NERVOUS SYSTEM: No focal deficit. LABS: WBC 11.6, hemoglobin 8.4, sodium 134. ASSESSMENT: 1. Acute bilateral leg ulcers, acute on chronic, with necrotic areas on the left more than the right with possible sepsis, present on admission, with Pseudomonas and methicillin-susceptible Staphylococcus aeruginosa. 2. History of recent popliteal artery atherectomy by Dr. Galindo. 3. History of peripheral vascular disease. 4. Hyponatremia. 5. Increased creatinine with chronic kidney disease, stage III. 6. Severe pain. 7. Anemia, normocytic; anemia of chronic disease. 8. Change in mental status, metabolic encephalopathy, acute, multifactorial. 9. History of atrial fibrillation, chronic. 10.History of coronary artery disease. 11.History of congestive heart failure, ejection fraction unknown. 12.History of chronic obstructive pulmonary disease. 13.Diabetes mellitus, type 2. 14.Hypertension. 15.Hyperlipidemia. 16.History of degenerative joint disease. 17.Sleep apnea. 18.History of pulmonary hypertension. 19.History of mitral regurgitation as well as severe calcified mitral anulus, status post mitral valve repair in October 2018. 20.Diabetic peripheral neuropathy. 21.Chronic hypoxic respiratory failure, on 2 L nasal cannula. 22.History of coronary artery disease, coronary artery bypass grafting, stent. 23.History of adenoidectomy. 24.History of cardiac valve replacement. 25.History of depression. 26.Remote history of nicotine dependence. 27.FULL CODE. RECOMMENDATIONS AND DISCUSSION: In this 74-year-old gentleman who presented with multiple complex medical issues, we will monitor the patient closely, continue the current medications, continue with symptomatic treatment. Continue the broad-spectrum IV antibiotics. Discussed with the patient, the patient's Brissa and the patient's daughter Cheyanne over the phone. At this time the family and the patient would like to get a second opinion. Consultation for Dr. Heath has been placed and we will follow the patient closely. Prognosis extremely guarded because of multiple complex medical issues. Further recommendations to follow. MMODL / IJN: [id number] /
[2019-06-11 20:56] LABS: Glucose,Whole Blood 182 mg/dL (75-99)
[2019-06-11] MEDS: ATORVASTATIN 40 MG TAB PO SCH (21:11)
[2019-06-11] MEDS: ESCITALOPRAM 10 MG TAB PO SCH (21:12)
[2019-06-11] MEDS: METOLAZONE 2.5 MG TAB PO SCH (21:13)
[2019-06-11] MEDS: INSULIN DETEMIR (LEVEMIR) 100 UNIT/ML SYR SQ SCH (21:14)
--- NOTE | 2019-06-11 23:20 | PN ---
PROGRESS NOTE DATE OF SERVICE: 06/11/2019 REASON FOR FOLLOWUP: Bilateral lower extremity wounds and a question of cellulitis. INTERVAL HISTORY: The patient is currently afebrile. The patient has been breathing comfortably. Pain seems to be slightly controlled. He is not complaining of so much pain today. No chest pain. No abdominal pain. No diarrhea. PHYSICAL EXAMINATION: Blood pressure 138/68 with a pulse of 79, temperature 98.5. He is 98% on room air. General description is an elderly male lying in bed in no distress. RESPIRATORY SYSTEM: Unlabored breathing with decreased breath sounds at the base. No wheeze. HEART: S1, S2. Regular rate and rhythm. ABDOMEN: Soft. No tenderness. Leg wounds are multiple. Slough tissue, though redness has resolved. LABS: Hemoglobin 8.4, white count down to 11.6, BUN of 44, creatinine 1.02. DIAGNOSTIC IMPRESSION AND PLAN: Patient with lower extremity wounds with significant cellulitis. Cultures have been positive for pseudomonas and MSSA. Patient is covered with cefepime. White count has normalized. Vascular Surgery has recommended -[id number] amputation. Patient wants a second opinion, for which Dr. Heath has been consulted. Will follow the clinical course closely. MMODL / IJN: [id number] /
[2019-06-12] MEDS: HYDROcodone/APAP 5-325MG 1 EACH TAB PO SCH ×3 (00:28→15:23)
[2019-06-12] MEDS: CEFEPIME 2 GM in SODIUM CHLORIDE 0.9% 100 ML IVPB SCH ×2 (04:09→15:23)
[2019-06-12] MEDS: MORPHINE SULFATE 4 MG/ML SYRINGE IV PRN ×3 (05:31→21:37)
[2019-06-12 07:29] LABS: Glucose,Whole Blood 74 mg/dL (75-99)
[2019-06-12] MEDS: INSULIN ASPART (NovoLOG) 100 UNIT/ML VIAL SQ SCH ×4 (07:55→21:31)
[2019-06-12] MEDS: MAGNESIUM OXIDE 400 MG TAB PO SCH ×2 (08:00→21:31)
[2019-06-12] MEDS: FUROSEMIDE 80 MG TAB PO SCH ×2 (08:00→21:31)
[2019-06-12] MEDS: GABAPENTIN 100 MG CAP PO SCH ×2 (08:00→21:31)
[2019-06-12] MEDS: FERROUS SULFATE 325 MG TAB PO SCH (08:00)
[2019-06-12] MEDS: HEPARIN SODIUM,PORCINE 5,000 UNIT/ML 1 ML VIAL SQ SCH ×2 (08:00→21:31)
[2019-06-12] MEDS: CHOLECALCIFEROL 1,000 UNIT TAB PO SCH (08:00)
[2019-06-12] MEDS: DOCUSATE 100 MG CAP PO SCH (08:00)
[2019-06-12] MEDS: PANTOPRAZOLE 40 MG TABLET PO SCH (08:00)
[2019-06-12] MEDS: METOPROLOL TARTRATE 50 MG TAB PO SCH ×2 (08:00→21:31)
[2019-06-12] MEDS: ASPIRIN 81 MG PO SCH (08:01)
[2019-06-12] MEDS: COLLAGENASE 250 UNIT/GM OINTMENT 30 GM TUBE TOPICAL SCH (08:01)
[2019-06-12] MEDS: MULTIVITAMINS, THERA 1 EACH TAB PO SCH (08:01)
[2019-06-12] MEDS: SENNOSIDES 8.6 MG TAB PO SCH (08:01)
--- NOTE | 2019-06-12 08:19 | P.GSCN ---
History of Present Illness Consult date: 06/11/19 Reason for Consult: Second opinion on left below the knee amputation, Chronic peripheral arterial disease. Requesting physician: Reshma Merrill History of present illness: The patient 74-year-old male who we're being seen for consultation for a second opinion per request by the patient and Dr. Merrill regarding a recommended left [id number] amputation. Dr. Talavera and Dr. Suazo have recommended a left [id number] amputation. The patient has been following with Dr. Galindo since September who underwent a cardiac catheterization, and 05/29/2019 a left femoral arthrectomy and balloon angioplasty. On 04/03/2019 lower extremity arterial Doppler showed Doppler waveforms to have multiphasic bilaterally throughout, ankle brachial indices 0.88 on the right and 0.55 on the left. Toe pressures 46 on the right, 19 on the left impression suggests at least moderate bilateral femoral-popliteal disease The patient has chronic bilateral lower extremity wounds. He has been following with Dr. Talavera, Dr. Suazo, and the wound care clinic. The patient's medical history includes diabetes, hypertension, hyperlipidemia, urinary artery disease, cardiac valve replacement, history of cardiac catheterization with stent, chronic kidney disease stage III, chronic anemia, pulmonary hypertension, chronic peripheral ar terial disease, and chronic nonhealing wounds to his bilateral lower extremities left greater than right. 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 He denies any fever or chills. He states he has significant pain in bilateral lower extremities rates it up to a 10 at rest. Infectious disease has been consulted for recommendations on antibiotic therapy for his local wound culture which was positive for pseudomonas and MSSA. Review of Systems Systems completed and all pertinent positives and negatives as stated in the HPI. Past Medical History Past Medical History: Atrial Fibrillation, Coronary Artery Disease (CAD), Heart Failure, COPD, Diabetes Mellitus, Eye Disorder, Hyperlipidemia, Hypertension, Osteoarthritis (OA), Pneumonia, Renal Disease, Sleep Apnea/CPAP/BIPAP, Vascular Disorder Additional Past Medical History / Comment(s): Chronic anemia/procrit, hx CKD stage III, pulmonary HTN, home oxygen continuous at 2L NC, decreased vision bilaterally since CABG surgery, neuropathy bilateral legs/feet, chronic bilateral leg/foot pain, severe PVD, past bilateral lower leg/foot wounds and cellulitis, current bilateral lower leg wounds, sepsis d/t leg wounds 2018, mild gastritis, diverticular disease. no cpap used History of Any Multi-Drug Resistant Organisms: None Reported Past Surgical History: Adenoidectomy, Cardiac Valve Replacement, Heart Cath eterization, Heart Catheterization With Stent, Tonsillectomy Additional Past Surgical History / Comment(s): 04/22/19 L leg angiogram, FAUSTINO, mitral valve repair 10/31/18, EGD, colonoscopies. one cardiac stent, Vascular surgery May 28 left leg Past Anesthesia/Blood Transfusion Reactions: No Reported Reaction Additional Past Anesthesia/Blood Transfusion Reaction / Comm: DIFF IV STARTS Date of Last Stent Placement:: fall 2018 Past Psychological History: Depression Additional Psychological History / Comment(s): . Smoking Status: Former smoker Past Alcohol Use History: Occasional Additional Past Alcohol Use History / Comment(s): Pt started smoking in 1957 and quit in 2007. He smoked pipe. Past Drug Use History: None Reported - Past Family History Father Family Medical History: Cancer Additional Family Medical History / Comment(s): stomach Mother Family Medical History: Congestive Heart Failure (CHF) Additional Family Medical History / Comment(s): AT AGE 68 Brother(s) Family Medical History: Cancer Medications and Allergies Home Medications Medication Instructions Recorded Confirmed Type Cholecalciferol [Vitamin D3 (25 2,000 unit PO DAILY 01/04/16 06/07/19 History Mcg = 1000 Iu)] Ferrous Sulfate [Iron (65 MG 325 mg PO DAILY 01/04/16 06/07/19 History Elemental)] Multivitamins, Thera [Multivitamin 1 tab PO DAILY 01/09/17 06/07/19 History (formulary)] Aspirin 81 mg PO DAILY 11/29/18 06/07/19 History Metoprolol Tartrate [Lopressor] 50 mg PO BID 11/29/18 06/07/19 History Atorvastatin [Lipitor] 40 mg PO HS tab 12/13/18 06/07/19 Rx Insulin Detemir (Levemir) [Levemir] 12 unit SQ HS syr 01/18/19 06/07/19 Rx Magnesium Oxide [Mag-Ox] 400 mg PO BID 30 Days #60 tab 01/23/19 06/07/19 Rx INSULIN LISPRO (humaLOG) [humaLOG] See Protocol SQ AC-TID 04/17/19 06/07/19 History Hydrocodone/Acetaminophen [Sims 1 tab PO Q8HR 05/07/19 06/07/19 History 5-325] Acetaminophen [Tylenol] 650 mg PO TID 05/24/19 06/07/19 History Albuterol Inhaler [Ventolin Hfa 2 puff INHALATION RT-Q6H PRN 05/24/19 06/07/19 History Inhaler] Clopidogrel Bisulfate [Plavix] 75 mg PO DAILY 05/24/19 06/07/19 History Collagenase [Santyl] 1 applic TOPICAL HS 05/24/19 06/07/19 History Darbepoetin Ruddy [Aranesp] 40 mcg IJ TU 05/24/19 06/07/19 History Docusate [Colace] 100 mg PO DAILY 05/24/19 06/07/19 History Escitalopram [Lexapro] 10 mg PO HS 05/24/19 06/07/19 History Furosemide [Lasix] 80 mg PO BID 05/24/19 06/07/19 History Gabapentin [Neurontin] 100 mg PO BID 05/24/19 06/07/19 History Heparin Sodium,Porcine [Heparin 5,000 unit SQ Q12HR 05/24/19 06/07/19 History Sodium] Metolazone [Zaroxolyn] 2.5 mg PO TUFR 05/24/19 06/07/19 History Oxymetazoline 0.05% Nasl [place] 1 spray EA NOSTRIL Q4HR PRN 05/24/19 06/07/19 History [Afrin 0.05% Nasal [place]] Sennosides [Senna] 8.6 mg PO DAILY 05/24/19 06/07/19 History Sodium Chloride [Saline Nasal 1 spray EA NOSTRIL Q2HR PRN 05/24/19 06/07/19 History [place]] Acetaminophen [Tylenol] 650 mg PO Q4H PRN 06/07/19 06/07/19 History Bisacodyl 5 mg PO Q24H PRN 06/07/19 06/07/19 History Glucagon Emergency Kit 1 mg IM ONCE PRN 06/07/19 06/07/19 History Glycerin Adult Suppository 1 supp RECTAL Q24H PRN 06/07/19 06/07/19 History Lactobacillus Acidophilus 1 tab PO DAILY 06/07/19 06/07/19 History [Acidophilus] Sodium Chloride [Saline Nasal 1 spray EA NOSTRIL QID PRN 06/07/19 06/07/19 History [place]] Zinc Oxide Ointment 1 applic TOPICAL TID 06/07/19 06/07/19 History traMADol HCl [Ultram] 50 mg PO Q6H PRN 06/07/19 06/07/19 History Allergies Allergy/AdvReac Type Severity Reaction Status Date / Time No Known Allergies Allergy Verified 06/07/19 19:09 Surgical - Exam Vital Signs Temp Pulse Resp BP Pulse Ox 97.8 F 66 16 122/77 100 06/07/19 13:55 06/07/19 13:55 06/07/19 13:55 06/07/19 13:55 06/07/19 13:55 General appearance: The patient is alert, oriented, in no acute distress. HET: Head is normocephalic and atraumatic. Neck: Supple without lymphadenopathy. Trachea midline. Heart: S1 S2. Regular rate and rhythm. Lungs: No crackles or wheezes are heard. Abdomen: Soft, nontender, nondistended with bowel sounds. No peritoneal signs. No palpable organomegaly or masses. Extremities: Bilateral palpable femoral pulses, bilateral monophasic popliteal, PT, and DP Doppler signals. The patient has multiple ulcerations with dry gangrenous changes on bilateral lower extremities extending from the knee down to toes. The patient has extreme tenderness to palpation on bilateral lower extremities right greater than left. Left dorsal side of the foot with large nonhealing ulcer with significant amount of soft tissue and some necrotic changes, with foul odor. Patient is able to move bilateral lower extremities and toes with pain. Neurological: No focal deficits. Strength and sensation are grossly intact. Results - Labs 06/11/19 08:20 06/11/19 08:20 Abnormal Lab Results - Last 24 Hours (Table) 06/10/19 06/10/19 06/11/19 Range/Units 16:52 21:06 08:20 WBC 11.6 H (3.8-10.6) k/uL RBC 2.86 L (4.30-5.90) m/uL Hgb 8.4 L (13.0-17.5) gm/dL Hct 27.3 L (39.0-53.0) % MCHC 30.9 L (31.0-37.0) g/dL RDW 16.5 H (11.5-15.5) % Neutrophils # 10.2 H (1.3-7.7) k/uL Lymphocytes # 0.3 L (1.0-4.8) k/uL Sodium (137-145) mmol/L Chloride (98-107) mmol/L Carbon Dioxide (22-30) mmol/L BUN (9-20) mg/dL Glucose (74-99) mg/dL POC Glucose (mg/dL) 211 H 138 H (75-99) mg/dL Calcium (8.4-10.2) mg/dL 06/11/19 06/11/19 Range/Units 08:20 11:54 WBC (3.8-10.6) k/uL RBC (4.30-5.90) m/uL Hgb (13.0-17.5) gm/dL Hct (39.0-53.0) % MCHC (31.0-37.0) g/dL RDW (11.5-15.5) % Neutrophils # (1.3-7.7) k/uL Lymphocytes # (1.0-4.8) k/uL Sodium 134 L (137-145) mmol/L Chloride 97 L (98-107) mmol/L Carbon Dioxide 33 H (22-30) mmol/L BUN 44 H (9-20) mg/dL Glucose 111 H (74-99) mg/dL POC Glucose (mg/dL) 186 H (75-99) mg/dL Calcium 8.1 L (8.4-10.2) mg/dL Microbiology - Last 24 Hours (Table) 06/08/19 04:30 Gram Stain - Final Foot - Left Wound Culture - Final Pseudomonas aeruginosa Staphylococcus aureus 06/07/19 16:35 Blood Culture - Preliminary Blood No Growth after 72 hours Diabetes panel 06/11/19 Range/Units 08:20 Sodium 134 L (137-145) mmol/L Potassium 4.2 (3.5-5.1) mmol/L Chloride 97 L (98-107) mmol/L Carbon Dioxide 33 H (22-30) mmol/L BUN 44 H (9-20) mg/dL Creatinine 1.02 (0.66-1.25) mg/dL Glucose 111 H (74-99) mg/dL Calcium 8.1 L (8.4-10.2) mg/dL Calcium panel 06/11/19 Range/Units 08:20 Calcium 8.1 L (8.4-10.2) mg/dL Pituitary panel 06/11/19 Range/Units 08:20 Sodium 134 L (137-145) mmol/L Potassium 4.2 (3.5-5.1) mmol/L Chloride 97 L (98-107) mmol/L Carbon Dioxide 33 H (22-30) mmol/L BUN 44 H (9-20) mg/dL Creatinine 1.02 (0.66-1.25) mg/dL Glucose 111 H (74-99) mg/dL Calcium 8.1 L (8.4-10.2) mg/dL Adrenal panel 06/11/19 Range/Units 08:20 Sodium 134 L (137-145) mmol/L Potassium 4.2 (3.5-5.1) mmol/L Chloride 97 L (98-107) mmol/L Carbon Dioxide 33 H (22-30) mmol/L BUN 44 H (9-20) mg/dL Creatinine 1.02 (0.66-1.25) mg/dL Glucose 111 H (74-99) mg/dL Calcium 8.1 L (8.4-10.2) mg/dL Assessment and Plan Assessment: 1. Chronic peripheral arterial disease status post left lower extremity balloon angioplasty and stenting 2. Bilateral lower extremity nonhealing wounds with dry gangrene 3. Bilateral lower leg cellulitis 4. Diabetes mellitus 5. Hypertension 6. Hyperlipidemia 7. Coronary artery disease Plan: Patient stated he would like a second opinion from vascular surgery if his only option left is a left [id number] amputation. His chart and prior testing will be reviewed. Further recommendations to follow. Continue with recommended antibiotic therapy per infectious disease, and wound care per Dr. Suazo and Dr. Talavera. Thank you for this consultation and allowing us to take part in the plan of care of this patient during his hospital stay. The above dictated assessment and findings were discussed with Dr. Burrell. The impression and plan of care have been directed as dictated.
[2019-06-12 08:57] LABS: Anisocytosis Slight; Basophils % (A) 0 %; Eosinophils # (A) 0.6 k/uL (0-0.7); Eosinophils % (A) 6 %; HCT 26.1 % (39.0-53.0); HGB 8.1 gm/dL (13.0-17.5); Hypochromasia Slight; Lymphocytes # (A) 0.4 k/uL (1.0-4.8); Lymphocytes % (A) 4 %; MCHC 31.1 g/dL (31.0-37.0); MCV 96.3 fL (80.0-100.0); Mean Platelet Volume 7.5; Monocytes # (A) 0.4 k/uL (0-1.0); Monocytes % (A) 4 %; Neutrophils # (A) 8.5 k/uL (1.3-7.7); Neutrophils % (A) 85 %; Platelet Count 280 k/uL (150-450); RBC 2.71 m/uL (4.30-5.90); RDW 16.2 % (11.5-15.5)
[2019-06-12 09:19] LABS: Calcium 8.3 mg/dL (8.4-10.2)
[2019-06-12 11:27] LABS: Glucose,Whole Blood 167 mg/dL (75-99)
--- NOTE | 2019-06-12 13:56 | P.PN ---
Subjective This is a pleasant 74 years old male with past medical history of atrial fibrillation, coronary artery disease, heart failure, COPD, diabetes mellitus, hypertension, hyperlipidemia, osteoarthritis, sleep apnea on CPAP/BiPAP, chronic kidney disease stage III, pulmonary hypertension, chronic hypoxic respiratory failure on home oxygen 2 L via nasal cannula, status post CABG, diabetic neuropathy. Presents with bilateral lower leg cellulitis and wounds, with culture growing Pseudomonas and MSSA, as patient is been followed by ID team and currently on cefepime, also vascular surgeon Dr. Suazo evaluated the patient and recommended amputation and also other consultants, however the patient and requested a second opinion and for this reason Dr. Maria he has been consulted. Manager Photography evaluated the patient and evaluated patient at some risk during the procedure. He is hemodynamically stable. A left showing WBC of 10.0 K, hemoglobin 8.1, platelet 280 K, sodium 134, creatinine 1.09, sugar is 167 this morning Objective - Vital Signs Vital signs: Vital Signs Temp 98.7 F 06/12/19 05:20 Pulse 70 06/12/19 05:20 Resp 20 06/12/19 05:20 BP 125/73 06/12/19 05:20 Pulse Ox 93 L 06/12/19 05:36 Intake & Output 06/11/19 06/12/19 06/12/19 18:59 06:59 18:59 Intake Total 300 Output Total 550 Balance -250 Weight 85 kg Intake: Intake, IV Titration 100 Amount Cefepime 2 gm In Sodium 100 Chloride 0.9% 100 ml @ 200 mls/hr IVPB Q12H [facility] Rx#:[id number] Oral 200 Output: Urine 550 Other: Voiding Method Urinal Urinal Urinal # Voids 5 # Bowel Movements 0 - Exam GENERAL: The patient is alert and oriented x3, not in any acute distress. Well developed, well nourished. HEENT: Pupils are round and equally reacting to light. EOMI. No scleral icterus. No conjunctival pallor. Normocephalic, atraumatic. No pharyngeal erythema. No thyromegaly. CARDIOVASCULAR: S1 and S2 present. No murmurs, rubs, or gallops. PULMONARY: Chest is clear to auscultation, no wheezing or crackles. ABDOMEN: Soft, nontender, nondistended, normoactive bowel sounds. No palpable organomegaly. MUSCULOSKELETAL: No joint swelling or deformity. -EXTREMITIES: No cyanosis, clubbing, or pedal edema. Bilateral cellulitis with ulceration with necrotic changes on the left leg NEUROLOGICAL: Gross neurological examination did not reveal any focal deficits. SKIN: No rashes. no petechiae. - Labs CBC & Chem 7: 06/12/19 07:57 06/12/19 07:57 Labs: Abnormal Lab Results - Last 24 Hours (Table) 06/11/19 06/11/19 06/12/19 Range/Units 16:46 20:36 07:25 RBC (4.30-5.90) m/uL Hgb (13.0-17.5) gm/dL Hct (39.0-53.0) % RDW (11.5-15.5) % Neutrophils # (1.3-7.7) k/uL Lymphocytes # (1.0-4.8) k/uL Sodium (137-145) mmol/L Chloride (98-107) mmol/L Carbon Dioxide (22-30) mmol/L BUN (9-20) mg/dL Glucose (74-99) mg/dL POC Glucose (mg/dL) 132 H 182 H 74 L (75-99) mg/dL Calcium (8.4-10.2) mg/dL 06/12/19 06/12/19 06/12/19 Range/Units 07:57 07:57 11:26 RBC 2.71 L (4.30-5.90) m/uL Hgb 8.1 L (13.0-17.5) gm/dL Hct 26.1 L (39.0-53.0) % RDW 16.2 H (11.5-15.5) % Neutrophils # 8.5 H (1.3-7.7) k/uL Lymphocytes # 0.4 L (1.0-4.8) k/uL Sodium 134 L (137-145) mmol/L Chloride 97 L (98-107) mmol/L Carbon Dioxide 33 H (22-30) mmol/L BUN 44 H (9-20) mg/dL Glucose 63 L (74-99) mg/dL POC Glucose (mg/dL) 167 H (75-99) mg/dL Calcium 8.3 L (8.4-10.2) mg/dL Microbiology - Last 24 Hours (Table) 06/07/19 16:35 Blood Culture - Preliminary Blood No Growth after 96 hours Assessment and Plan Assessment: Bilateral lower extremity ulceration and cellulitis peripheral vascular disease status post revascularization surgery in the past Hypernatremia, mild Chronic kidney disease, stage III Change in mental status, possible metabolic encephalopathy, improved currently Chronic atrial fibrillation History of coronary artery disease Chronic congestive heart failure with unknown ejection fraction Chronic obstructive pulmonary disease, not in acute exacerbation Type 2 diabetes mellitus Diabetic neuropathy Hypertension Hyperlipidemia Osteoarthritis Sleep apnea Pulmonary hypertension Mitral regurgitation Chronic hypoxic respiratory failure and 2 L oxygen via nasal cannula History of depression, not in activation Plan: This is a pleasant 74 years old male who presents with bilateral lower extremity cellulitis and ulceration, he has history of peripheral vascular disease, patient recommended by other consultants to amputation of lower extremity, however patient and asked a second opinion Patient is followed by several consultants including cardiology, muscular surgery, infectious disease Continue with antibiotics as per ID team Labs and medication were reviewed.. Continue same treatment. Continue with symptomatic treatment. Resume home medication. Monitor lytes and vitals. DVT and GI prophylaxis. Further recommendations of the clinical course of the patient DVT prophylaxis: Subcutaneous heparin GI Prophylaxis: Ppi Prognosis is guarded
[2019-06-12 17:00] LABS: Glucose,Whole Blood 103 mg/dL (75-99)
[2019-06-12 20:30] LABS: Glucose,Whole Blood 146 mg/dL (75-99)
[2019-06-12] MEDS: ATORVASTATIN 40 MG TAB PO SCH (21:31)
[2019-06-12] MEDS: ESCITALOPRAM 10 MG TAB PO SCH (21:31)
[2019-06-12] MEDS: INSULIN DETEMIR (LEVEMIR) 100 UNIT/ML SYR SQ SCH (21:32)
--- NOTE | 2019-06-12 23:03 | PN ---
PROGRESS NOTE DATE OF SERVICE: 06/12/2019 REASON FOR FOLLOWUP: Bilateral lower extremity wounds and cellulitis. INTERVAL HISTORY: The patient is currently afebrile. He has been breathing comfortably. Pain to the legs has slightly decreased in intensity. Denies any chest pain, shortness of breath or cough. No abdominal pain and no diarrhea. PHYSICAL EXAMINATION: Blood pressure 119/61 with a pulse of 54, temperature 98.4. He is 97% on 2 L nasal cannula. General description is an elderly male lying in bed in no distress. RESPIRATORY SYSTEM: Unlabored breathing. Clear to auscultation anteriorly. HEART: S1, S2. Regular rate and rhythm. ABDOMEN: Soft. No tenderness. Legs with multiple wounds, slough tissue. No significant redness or drainage. LABS: Hemoglobin 8.1, white count 10.0. BUN of 44, creatinine 1.09. DIAGNOSTIC IMPRESSION AND PLAN: Patient with bilateral lower extremity wounds, likely ischemic, with concern for possible secondary cellulitis. Cultures positive for Pseudomonas and MSSA. The patient is covered with cefepime and his white count has normalized. Continue with supportive care. MMODL / IJN: [id number] /
[2019-06-13] MEDS: HYDROcodone/APAP 5-325MG 1 EACH TAB PO SCH ×3 (00:23→16:44)
[2019-06-13] MEDS: CEFEPIME 2 GM in SODIUM CHLORIDE 0.9% 100 ML IVPB SCH ×2 (05:27→16:45)
[2019-06-13 07:43] LABS: Glucose,Whole Blood 126 mg/dL (75-99)
[2019-06-13 08:00] LABS: Anisocytosis Slight; Basophils % (A) 0 %; Eosinophils # (A) 0.7 k/uL (0-0.7); Eosinophils % (A) 7 %; HCT 27.5 % (39.0-53.0); HGB 8.9 gm/dL (13.0-17.5); Lymphocytes # (A) 0.6 k/uL (1.0-4.8); Lymphocytes % (A) 7 %; MCH 30.2 pg (25.0-35.0); MCHC 32.4 g/dL (31.0-37.0); Mean Platelet Volume 8.1; Monocytes # (A) 0.9 k/uL (0-1.0); Monocytes % (A) 9 %; Neutrophils # (A) 7.2 k/uL (1.3-7.7); Neutrophils % (A) 75 %; Platelet Count 256 k/uL (150-450); RBC 2.96 m/uL (4.30-5.90); RDW 16.6 % (11.5-15.5); WBC 9.6 k/uL (3.8-10.6)
[2019-06-13] MEDS: METOPROLOL TARTRATE 50 MG TAB PO SCH ×2 (08:29→20:33)
[2019-06-13] MEDS: ASPIRIN 81 MG PO SCH (08:29)
[2019-06-13] MEDS: MULTIVITAMINS, THERA 1 EACH TAB PO SCH (08:29)
[2019-06-13] MEDS: CHOLECALCIFEROL 1,000 UNIT TAB PO SCH (08:29)
[2019-06-13] MEDS: SENNOSIDES 8.6 MG TAB PO SCH (08:29)
[2019-06-13] MEDS: GABAPENTIN 100 MG CAP PO SCH ×2 (08:29→20:32)
[2019-06-13] MEDS: MAGNESIUM OXIDE 400 MG TAB PO SCH ×2 (08:30→20:32)
[2019-06-13] MEDS: FERROUS SULFATE 325 MG TAB PO SCH (08:30)
[2019-06-13] MEDS: FUROSEMIDE 80 MG TAB PO SCH ×2 (08:30→20:33)
[2019-06-13] MEDS: DOCUSATE 100 MG CAP PO SCH (08:30)
[2019-06-13] MEDS: COLLAGENASE 250 UNIT/GM OINTMENT 30 GM TUBE TOPICAL SCH (08:30)
[2019-06-13] MEDS: PANTOPRAZOLE 40 MG TABLET PO SCH (08:30)
[2019-06-13] MEDS: INSULIN ASPART (NovoLOG) 100 UNIT/ML VIAL SQ SCH ×4 (08:33→20:30)
[2019-06-13] MEDS: HEPARIN SODIUM,PORCINE 5,000 UNIT/ML 1 ML VIAL SQ SCH ×2 (08:33→20:33)
[2019-06-13 08:35] LABS: Calcium 8.1 mg/dL (8.4-10.2); Potassium 3.8 mmol/L (3.5-5.1)
--- NOTE | 2019-06-13 11:18 | P.PN ---
Subjective This is a pleasant 74 years old male with past medical history of atrial fibrillation, coronary artery disease, heart failure, COPD, diabetes mellitus, hypertension, hyperlipidemia, osteoarthritis, sleep apnea on CPAP/BiPAP, chronic kidney disease stage III, pulmonary hypertension, chronic hypoxic respiratory failure on home oxygen 2 L via nasal cannula, status post CABG, diabetic neuropathy. Presents with bilateral lower leg cellulitis and wounds, with culture growing Pseudomonas and MSSA, as patient is been followed by ID team and currently on cefepime, also vascular surgeon Dr. Suazo evaluated the patient and recommended amputation and also other consultants, however the patient and requested a second opinion and for this reason Dr. Maria he has been consulted. Photo Retoucher evaluated the patient and evaluated patient at some risk during the procedure. He is hemodynamically stable. A left showing WBC of 10.0 K, hemoglobin 8.1, platelet 280 K, sodium 134, creatinine 1.09, sugar is 167 this morning 06/13/2019 Patient awake and alert, he was still complaining from pain in his leg, patient still getting IV morphine, I explained for him the risks and benefits of this medication including but not limiting to the risk of cardiopulmonary arrest, he agrees to continue with same pain medication for now, I explained to the patient that his goal for pain could not be 0 which can cause a lot of side effects but rather should be level he can tolerate and he agrees again. Also I discussed again with the patient today the plan for him is to wait for a second surgical opinion for his lower extremity infection and disease. Objective - Vital Signs Vital signs: Vital Signs Temp 98.1 F 06/13/19 05:30 Pulse 69 06/13/19 05:30 Resp 16 06/13/19 08:00 BP 136/71 06/13/19 05:30 Pulse Ox 100 06/13/19 05:30 Intake & Output 06/12/19 06/13/19 06/13/19 18:59 06:59 18:59 Output Total 301 Balance -301 Weight 86 kg Output: Urine 301 Other: Voiding Method Urinal Urinal # Voids 150 # Bowel Movements 0 - Exam GENERAL: The patient is alert and oriented x3, not in any acute distress. Well developed, well nourished. HEENT: Pupils are round and equally reacting to light. EOMI. No scleral icterus. No conjunctival pallor. Normocephalic, atraumatic. No pharyngeal erythema. No thyromegaly. CARDIOVASCULAR: S1 and S2 present. No murmurs, rubs, or gallops. PULMONARY: Chest is clear to auscultation, no wheezing or crackles. ABDOMEN: Soft, nontender, nondistended, normoactive bowel sounds. No palpable organomegaly. MUSCULOSKELETAL: No joint swelling or deformity. -EXTREMITIES: No cyanosis, clubbing, or pedal edema. Bilateral cellulitis with ulceration with necrotic changes on the left leg (patient refers and palpation examination only inspection) NEUROLOGICAL: Gross neurological examination did not reveal any focal deficits. SKIN: No rashes. no petechiae. - Labs CBC & Chem 7: 06/13/19 07:23 06/13/19 07:23 Labs: Abnormal Lab Results - Last 24 Hours (Table) 06/12/19 06/12/19 06/12/19 Range/Units 11:26 16:58 20:29 RBC (4.30-5.90) m/uL Hgb (13.0-17.5) gm/dL Hct (39.0-53.0) % RDW (11.5-15.5) % Lymphocytes # (1.0-4.8) k/uL Sodium (137-145) mmol/L Chloride (98-107) mmol/L Carbon Dioxide (22-30) mmol/L BUN (9-20) mg/dL Glucose (74-99) mg/dL POC Glucose (mg/dL) 167 H 103 H 146 H (75-99) mg/dL Calcium (8.4-10.2) mg/dL 06/13/19 06/13/19 06/13/19 Range/Units 07:03 07:23 07:23 RBC 2.96 L (4.30-5.90) m/uL Hgb 8.9 L (13.0-17.5) gm/dL Hct 27.5 L (39.0-53.0) % RDW 16.6 H (11.5-15.5) % Lymphocytes # 0.6 L (1.0-4.8) k/uL Sodium 133 L (137-145) mmol/L Chloride 96 L (98-107) mmol/L Carbon Dioxide 36 H (22-30) mmol/L BUN 45 H (9-20) mg/dL Glucose 112 H (74-99) mg/dL POC Glucose (mg/dL) 126 H (75-99) mg/dL Calcium 8.1 L (8.4-10.2) mg/dL Microbiology - Last 24 Hours (Table) 06/07/19 16:35 Blood Culture - Preliminary Blood No Growth after 120 hours Assessment and Plan Assessment: Bilateral lower extremity ulceration and cellulitis peripheral vascular disease status post revascularization surgery in the past Hyponatremia, mild Chronic kidney disease, stage II-III Change in mental status, possible metabolic encephalopathy, improved currently Chronic atrial fibrillation History of coronary artery disease Chronic congestive heart failure with unknown ejection fraction Chronic obstructive pulmonary disease, not in acute exacerbation Type 2 diabetes mellitus Diabetic neuropathy Hypertension Hyperlipidemia Osteoarthritis Sleep apnea Pulmonary hypertension Mitral regurgitation Chronic hypoxic respiratory failure and 2 L oxygen via nasal cannula History of depression, not in activation Plan: This is a pleasant 74 years old male who presents with bilateral lower extremity cellulitis and ulceration, he has history of peripheral vascular disease, patient is asking for a second surgical opinion regarding the management of his neck infection and vascular disease Patient is on antibiotic of cefepime as per ID team. Pain control Labs and medication were reviewed.. Continue same treatment. Continue with symptomatic treatment. Resume home medication. Monitor lytes and vitals. DVT and GI prophylaxis. Further recommendations of the clinical course of the patient DVT prophylaxis: Subcutaneous heparin GI Prophylaxis: Ppi Prognosis is guarded
[2019-06-13 11:39] LABS: Glucose,Whole Blood 209 mg/dL (75-99)
[2019-06-13] MEDS: MORPHINE SULFATE 4 MG/ML SYRINGE IV PRN ×2 (11:53→23:57)
--- NOTE | 2019-06-13 13:01 | P.PN ---
Subjective Progress Note Date: 06/13/19 Patient is evaluated in follow-up care in reference to left lower extremity occlusive disease with associated arterial ulcerations of the left foot. I had the opportunity to review the patient's current medication list as well as his angiograms performed earlier this year. A long discussion with the patient in reference to his current situation. Prior to any revascularization I believe debridement of all left lower externally wounds P performed prior to any attempt at revascularization. This will allow for evaluation of the soft tissues in reference to degree of arterial perfusion. Should arterial perfusion be considered insufficient I believe a left popliteal to posterior tibial bypass graft would be appropriate as limb salvage. Short of this the patient would benefit by a left below the knee amputation. Additionally have taken the liberty of adding Flagyl to the patient's medical regimen to cover for anaerobic bacteria as considered appropriate for diabetic foot wounds. All questions were answered to patient's satisfaction. I did discuss this with Dr. Burrell. The patient has been tentatively scheduled for surgical debridement of the left lower extremity in the morning tomorrow. Objective - Vital Signs Vital signs: Vital Signs Temp 98.1 F 06/13/19 05:30 Pulse 69 06/13/19 05:30 Resp 16 06/13/19 08:00 BP 136/71 06/13/19 05:30 Pulse Ox 100 06/13/19 05:30 Intake & Output 06/12/19 06/13/19 06/13/19 18:59 06:59 18:59 Output Total 301 Balance -301 Weight 86 kg Output: Urine 301 Other: Voiding Method Urinal Urinal # Voids 150 # Bowel Movements 0 - Labs CBC & Chem 7: 06/13/19 07:23 06/13/19 07:23 Labs: Abnormal Lab Results - Last 24 Hours (Table) 06/12/19 06/12/19 06/13/19 Range/Units 16:58 20:29 07:03 RBC (4.30-5.90) m/uL Hgb (13.0-17.5) gm/dL Hct (39.0-53.0) % RDW (11.5-15.5) % Lymphocytes # (1.0-4.8) k/uL Sodium (137-145) mmol/L Chloride (98-107) mmol/L Carbon Dioxide (22-30) mmol/L BUN (9-20) mg/dL Glucose (74-99) mg/dL POC Glucose (mg/dL) 103 H 146 H 126 H (75-99) mg/dL Calcium (8.4-10.2) mg/dL 06/13/19 06/13/19 06/13/19 Range/Units 07:23 07:23 11:38 RBC 2.96 L (4.30-5.90) m/uL Hgb 8.9 L (13.0-17.5) gm/dL Hct 27.5 L (39.0-53.0) % RDW 16.6 H (11.5-15.5) % Lymphocytes # 0.6 L (1.0-4.8) k/uL Sodium 133 L (137-145) mmol/L Chloride 96 L (98-107) mmol/L Carbon Dioxide 36 H (22-30) mmol/L BUN 45 H (9-20) mg/dL Glucose 112 H (74-99) mg/dL POC Glucose (mg/dL) 209 H (75-99) mg/dL Calcium 8.1 L (8.4-10.2) mg/dL Microbiology - Last 24 Hours (Table) 06/07/19 16:35 Blood Culture - Preliminary Blood No Growth after 120 hours
[2019-06-13 17:15] LABS: Glucose,Whole Blood 209 mg/dL (75-99)
[2019-06-13] MEDS: metroNIDAZOLE-NS PMX 500 MG in SALINE 1 100ML.BAG IVPB SCH ×2 (17:27→23:59)
[2019-06-13 20:20] LABS: Glucose,Whole Blood 117 mg/dL (75-99)
[2019-06-13] MEDS: ESCITALOPRAM 10 MG TAB PO SCH (20:32)
[2019-06-13] MEDS: INSULIN DETEMIR (LEVEMIR) 100 UNIT/ML SYR SQ SCH (20:33)
[2019-06-13] MEDS: ATORVASTATIN 40 MG TAB PO SCH (20:33)
--- NOTE | 2019-06-13 23:17 | PN ---
PROGRESS NOTE DATE OF SERVICE: 06/13/2019 REASON FOR FOLLOWUP: Bilateral lower extremity wounds and cellulitis. INTERVAL HISTORY: The patient is currently afebrile, has been breathing comfortably. Pain to the legs is currently controlled. Denies any chest pain. No cough. No abdominal pain. No diarrhea. PHYSICAL EXAMINATION: Blood pressure 148/70 with a pulse of 77, temperature 98.1. He is 96% on 2 liters nasal cannula. General description is an elderly male lying in bed in no distress. RESPIRATORY SYSTEM: Unlabored breathing. Clear to auscultation anteriorly. HEART: S1, S2. Regular rate and rhythm. ABDOMEN: Soft. No tenderness. Leg wounds with necrotic and slough tissue. Surrounding redness has resolved. LABS: Hemoglobin is 8.9, white count of 9.6. Creatinine is 1.13. DIAGNOSTIC IMPRESSION AND PLAN: Patient with bilateral lower extremity multiple wounds with secondary cellulitis. Culture with MSSA and Pseudomonas. Patient is covered with cefepime 2 grams q.12, to continue. Awaiting surgical intervention. Continue with supportive care. MMODL / IJN: [id number] /
[2019-06-14] MEDS: HYDROcodone/APAP 5-325MG 1 EACH TAB PO SCH ×3 (01:00→16:50)
[2019-06-14] MEDS: CEFEPIME 2 GM in SODIUM CHLORIDE 0.9% 100 ML IVPB SCH (04:13)
[2019-06-14 07:19] LABS: Glucose,Whole Blood 98 mg/dL (75-99)
[2019-06-14] MEDS: INSULIN ASPART (NovoLOG) 100 UNIT/ML VIAL SQ SCH ×4 (07:48→21:33)
[2019-06-14] MEDS: ASPIRIN 81 MG PO SCH (08:50)
[2019-06-14] MEDS: HEPARIN SODIUM,PORCINE 5,000 UNIT/ML 1 ML VIAL SQ SCH ×2 (08:51→20:23)
[2019-06-14] MEDS: METOPROLOL TARTRATE 50 MG TAB PO SCH ×2 (09:00→20:23)
[2019-06-14] MEDS: metroNIDAZOLE-NS PMX 500 MG in SALINE 1 100ML.BAG IVPB SCH ×3 (09:00→23:40)
[2019-06-14] MEDS: PANTOPRAZOLE 40 MG TABLET PO SCH (09:17)
[2019-06-14 09:23] LABS: Anisocytosis Slight; Basophils % (A) 0 %; Eosinophils # (A) 0.8 k/uL (0-0.7); Eosinophils % (A) 6 %; HCT 28.1 % (39.0-53.0); HGB 9.3 gm/dL (13.0-17.5); Lymphocytes % (A) 8 %; MCH 30.4 pg (25.0-35.0); MCHC 32.9 g/dL (31.0-37.0); MCV 92.4 fL (80.0-100.0); Mean Platelet Volume 8.4; Monocytes # (A) 0.9 k/uL (0-1.0); Monocytes % (A) 7 %; Neutrophils # (A) 9.4 k/uL (1.3-7.7); Neutrophils % (A) 77 %; Platelet Count 300 k/uL (150-450); Poikilocytosis Slight; RBC 3.04 m/uL (4.30-5.90); RDW 16.6 % (11.5-15.5); WBC 12.2 k/uL (3.8-10.6)
[2019-06-14] MEDS ORDERED: LACTATED RINGERS 1,000 ML IV ONE (09:26)
[2019-06-14 10:11] LABS: Potassium 4.1 mmol/L (3.5-5.1)
--- NOTE | 2019-06-14 10:27 | P.ANPRN ---
Procedure Note - Anesthesia - Nerve Block Performed Left Other (see comment) Single Time Out Performed: Yes (Femoral nerve block) Date of Procedure: 06/14/19 Procedure Start Time: 10:06 Procedure Stop Time: 10:16 Location of Patient: PreOp Indication: Acute Post-Operative Pain, Requested by Surgeon Sedation Type: Sedate with meaningful contact maintained Preparation: Sterile Prep, Sterile Dressing Position: Supine Needle Types: Pajunk Needle Gauge: 20 Ultrasound used to visualize needle placement: Yes Ultrasound used to observe medication spread: Yes Injectate: 0.5% Ropivacaine (see comment for volume) (15 ml) Blood Aspirated: No Pain Paresthesia on Injection Noted: No Resistance on Injection: Normal Image Stored and Saved: Yes Events: Uneventful and Well Tolerated Left Popliteal Single Time Out Performed: Yes Date of Procedure: 06/14/19 Procedure Start Time: 10:17 Procedure Stop Time: 10:27 Location of Patient: PreOp Indication: Acute Post-Operative Pain, Requested by Surgeon Sedation Type: Sedate with meaningful contact maintained Preparation: Sterile Prep, Sterile Dressing Position: Supine Catheter: None Needle Types: Pajunk Needle Gauge: 20 Ultrasound used to visualize needle placement: Yes Ultrasound used to observe medication spread: Yes Injectate: 0.5% Ropivacaine (see comment for volume) (15 ml) Blood Aspirated: No Pain Paresthesia on Injection Noted: No Resistance on Injection: Normal Image Stored and Saved: Yes Events: Uneventful and Well Tolerated
[2019-06-14] MEDS ORDERED: KETAMINE 10 MG/ML 20 ML VIAL ONE (10:48)
[2019-06-14] MEDS ORDERED: MIDAZOLAM 2 MG/2 ML VIAL ONE (10:48)
[2019-06-14] MEDS ORDERED: LIDOCAINE 1% INJ 10MG/ML (20 ML MDV) SQ ONE (11:00)
[2019-06-14] MEDS ORDERED: SODIUM HYPOCHLORITE 0.25% 480 ML BOT MISCELLANE ONE (11:35)
--- NOTE | 2019-06-14 12:14 | P.OP ---
Date of Procedure: 06/14/19 Description of Procedure: Preoperative diagnosis: [Left lower extremity [place] 5 peripheral arterial disease, gangrene] Postoperative diagnosis: Same Procedure: [Sharp excisional debridement of left lower extremity with scalpel and curet. Final wound measurements dorsal foot 6.8 x 4.3 x 0.3 cm to tendon Great toe 1.5 x 1.8 x 0.2 to subcutaneous tissues Distal medial ankle 4.0 x 2.6 x 0.3 to tendon Posterior leg 12 x 8.6 x 0.2 to subcutaneous tissues Multiple anterior velasquez 11 x 6 x 0.2 to subcutaneous tissues] Surgeon: Cherelle Burrell D.O. Anesthesia: Regional block with monitored anesthesia care EBL: [15 mL] IV fluids: [See anesthesia records] Urine output: [Not measured] Drains: [None] Complications: [None immediately apparent] Condition: [Stable to PACU] Operative indication and findings: [The patient is a 74-year-old male with significant peripheral arterial disease and wounds to his bilateral lower extremities worse on the left. He previously underwent an atherectomy and angioplasty with stent of his popliteal artery. He will be recommended to undergo a below-knee amputation in the past for a second opinion. He does have the possibility of a popliteal to posterior tibial bypass although did discuss with him the significant chance of this not improving his wounds and still r equiring amputation. He would like to do everything he possibly can in order to save his life including a bypass and more aggressive wound care therefore at this time he was brought to the operative suite for surgical debridement of the left lower extremity and tissue evaluation for suitability of bypass, and timing. Risks and benefits were discussed. He seemingly understood and was willing to proceed.] Procedure in detail: [The patient was taken to the operative suite and placed in supine position. The left lower extremity was prepped and draped in usual sterile fashion. A preprocedure timeout was performed, all parties are in agreement. A Betadine sponge was used to cleanse the leg. All sites with eschar a 15 blade scalpel was used to remove the overlying eschar with the measurements and depths as above. There was decent granulation tissue and bleeding at these sites. At the dorsum of the foot as well as the medial ankle there were areas of purulent pockets which were drained along with the necrotic tissues. These both went to the depth of tendon the areas were then all cleanse. Dakin solution was placed at these 2 areas. Adaptic dressing, 4 x 4's and Kerlix was placed. The patient was allowed awaken from anesthesia and transported to PACU in stable condition having tolerated his procedure well.]
[2019-06-14 12:19] LABS: Glucose,Whole Blood 88 mg/dL (75-99)
[2019-06-14] MEDS: DOCUSATE 100 MG CAP PO SCH (13:03)
[2019-06-14] MEDS: FERROUS SULFATE 325 MG TAB PO SCH (13:03)
[2019-06-14] MEDS: CHOLECALCIFEROL 1,000 UNIT TAB PO SCH (13:03)
[2019-06-14] MEDS: MAGNESIUM OXIDE 400 MG TAB PO SCH ×2 (13:03→20:23)
[2019-06-14] MEDS: MULTIVITAMINS, THERA 1 EACH TAB PO SCH (13:03)
[2019-06-14] MEDS: GABAPENTIN 100 MG CAP PO SCH (13:03)
[2019-06-14] MEDS: FUROSEMIDE 80 MG TAB PO SCH ×2 (13:03→21:32)
--- NOTE | 2019-06-14 14:24 | P.PN ---
Subjective Progress Note Date: 06/14/19 Principal diagnosis: This is a pleasant 74 years old male with past medical history of atrial fibrillation, coronary artery disease, heart failure, COPD, diabetes mellitus, hypertension, hyperlipidemia, osteoarthritis, sleep apnea on CPAP/BiPAP, chronic kidney disease stage III, pulmonary hypertension, chronic hypoxic respiratory failure on home oxygen 2 L via nasal cannula, status post CABG, diabetic neuropathy. Presents with bilateral lower leg cellulitis and wounds, with culture growing Pseudomonas and MSSA, as patient is been followed by ID team and currently on cefepime, also vascular surgeon Dr. Suazo evaluated the patient and recommended amputation and also other consultants, however the patient and requested a second opinion and for this reason Dr. Maria he has been consulted. Manager Program Management evaluated the patient and evaluated patient at some risk during the procedure. He is hemodynamically stable. A left showing WBC of 10.0 K, hemoglobin 8.1, platelet 280 K, sodium 134, creatinine 1.09, sugar is 167 this morning 06/13/2019 Patient awake and alert, he was still complaining from pain in his leg, patient still getting IV morphine, I explained for him the risks and benefits of this medication including but not limiting to the risk of cardiopulmonary arrest, he agrees to continue with same pain medication for now, I explained to the patient that his goal for pain could not be 0 which can cause a lot of side effects but rather should be level he can tolerate and he agrees again. Also I discussed again with the patient today the plan for him is to wait for a second surgical opinion for his lower extremity infection and disease. 06/14/2019 Patient is seen and evaluated in follow-up today awaiting to undergo debridement of the left lower extremity with Dr. Dover today. Preop is here to pick patient up at this time. Currently no reports of chest pain, shortness of breath, or palpitations. Patient is afebrile. No reports of nausea or vomiting and patient has been nothing by mouth this morning. Patient requesting sedation for the procedure as he states he does not want to feel this. Discussed with the patient that this will all be discussed in preop with the physician and the nurses there. Patient verbalized understanding. Will await report. Patient will be going to 4 S. status post procedure. Patient will continue on IV antibiotics form of cefepime along with Flagyl at this time. Infectious disease is following. Will continue to monitor closely. Objective - Vital Signs Vital signs: Vital Signs Temp 98.4 F 06/14/19 09:40 Pulse 70 06/14/19 09:40 Resp 16 06/14/19 09:40 BP 132/61 06/14/19 09:40 Pulse Ox 91 L 06/14/19 09:40 Intake & Output 06/13/19 06/14/19 06/14/19 18:59 06:59 18:59 Intake Total 1080 Output Total 300 Balance 1080 -300 Weight 84 kg 84 kg Intake: Oral 1080 Output: Urine 300 Other: Voiding Method Urinal Urinal Urinal # Voids 5 4 3 - Exam GENERAL: The patient is alert and oriented x3, not in any acute distress. Well developed, well nourished. HEENT: Pupils are round and equally reacting to light. EOMI. No scleral icterus. No conjunctival pallor. Normocephalic, atraumatic. No pharyngeal erythema. No thyromegaly. CARDIOVASCULAR: S1 and S2 present. No murmurs, rubs, or gallops. PULMONARY: Chest is clear to auscultation, no wheezing or crackles. ABDOMEN: Soft, nontender, nondistended, normoactive bowel sounds. No palpable organomegaly. MUSCULOSKELETAL: No joint swelling or deformity. -EXTREMITIES: No cyanosis, clubbing, or pedal edema. Bilateral cellulitis with ulceration with necrotic changes on the left leg noted. Tender upon palpation. (Patient prefers visual inspection only) NEUROLOGICAL: Gross neurological examination did not reveal any focal deficits. SKIN: No rashes. no petechiae. - Labs CBC & Chem 7: 06/14/19 07:59 06/14/19 07:59 Labs: Abnormal Lab Results - Last 24 Hours (Table) 06/13/19 06/13/19 06/13/19 Range/Units 11:38 17:10 20:19 WBC (3.8-10.6) k/uL RBC (4.30-5.90) m/uL Hgb (13.0-17.5) gm/dL Hct (39.0-53.0) % RDW (11.5-15.5) % Neutrophils # (1.3-7.7) k/uL Eosinophils # (0-0.7) k/uL Sodium (137-145) mmol/L Chloride (98-107) mmol/L Carbon Dioxide (22-30) mmol/L BUN (9-20) mg/dL POC Glucose (mg/dL) 209 H 209 H 117 H (75-99) mg/dL Calcium (8.4-10.2) mg/dL 06/14/19 06/14/19 Range/Units 07:59 07:59 WBC 12.2 H (3.8-10.6) k/uL RBC 3.04 L (4.30-5.90) m/uL Hgb 9.3 L (13.0-17.5) gm/dL Hct 28.1 L (39.0-53.0) % RDW 16.6 H (11.5-15.5) % Neutrophils # 9.4 H (1.3-7.7) k/uL Eosinophils # 0.8 H (0-0.7) k/uL Sodium 135 L (137-145) mmol/L Chloride 96 L (98-107) mmol/L Carbon Dioxide 37 H (22-30) mmol/L BUN 47 H (9-20) mg/dL POC Glucose (mg/dL) (75-99) mg/dL Calcium 8.0 L (8.4-10.2) mg/dL Microbiology - Last 24 Hours (Table) 06/07/19 16:35 Blood Culture - Final Blood No Growth after 144 hours Assessment and Plan Assessment: Bilateral lower extremity ulceration and cellulitis peripheral vascular disease status post revascularization surgery in the past Hyponatremia, mild Chronic kidney disease, stage II-III Change in mental status, possible metabolic encephalopathy, improved currently Chronic atrial fibrillation History of coronary artery disease Chronic congestive heart failure with unknown ejection fraction Chronic obstructive pulmonary disease, not in acute exacerbation Type 2 diabetes mellitus Diabetic neuropathy Hypertension Hyperlipidemia Osteoarthritis Sleep apnea Pulmonary hypertension Mitral regurgitation Chronic hypoxic respiratory failure and 2 L oxygen via nasal cannula History of depression, not in activation Plan: This is a pleasant 74 years old male who presents with bilateral lower extremity cellulitis and ulceration, he has history of peripheral vascular disease. Patient undergoing debridement with Dr. Dover today of the left lower extremity. Will await report. Patient is on antibiotic of cefepime and Flagyl as per ID team. Pain control Labs and medication were reviewed.. Continue same treatment. Continue with symptomatic treatment. Resume home medication. Monitor lytes and vitals. DVT and GI prophylaxis. Further recommendations of the clinical course of the patient DVT prophylaxis: Subcutaneous heparin GI Prophylaxis: Ppi Prognosis is guarded
[2019-06-14] MEDS: SENNOSIDES 8.6 MG TAB PO SCH (15:51)
[2019-06-14] MEDS: COLLAGENASE 250 UNIT/GM OINTMENT 30 GM TUBE TOPICAL SCH (16:21)
[2019-06-14 16:59] LABS: Glucose,Whole Blood 103 mg/dL (75-99)
[2019-06-14] MEDS: MORPHINE SULFATE 4 MG/ML SYRINGE IV PRN ×2 (17:22→21:32)
[2019-06-14] MEDS: ATORVASTATIN 40 MG TAB PO SCH (20:23)
[2019-06-14] MEDS: GABAPENTIN 300 MG CAP PO SCH (20:24)
[2019-06-14] MEDS: HYDROcodone/APAP 5-325MG 1 EACH TAB PO PRN (20:24)
[2019-06-14 20:30] LABS: Glucose,Whole Blood 168 mg/dL (75-99)
--- NOTE | 2019-06-14 20:38 | PN ---
PROGRESS NOTE DATE OF SERVICE: 06/14/2019 REASON FOR FOLLOWUP: Bilateral lower extremity wound cellulitis. INTERVAL HISTORY: The patient was taken to the OR today. The patient is status post debridement of the wound. He was noticed to have some pus postop that has been cultured. The patient denies any chest pain, cough, no abdominal pain or any diarrhea. PHYSICAL EXAMINATION: Blood pressure 120/54 with a pulse of 74. Temperature 98.7. General description is an elderly male lying in bed in no distress. Respiratory system: Unlabored breathing. Clear to auscultation anteriorly. Heart S1, S2. Regular rate and rhythm. Abdomen soft, no tenderness. Leg wounds are currently dressed up. No obvious drainage on the dressing. LABS: Hemoglobin 9.1, white count 5.2. BUN of 47, creatinine 1.15. DIAGNOSTIC IMPRESSION/PLAN: Patient with bilateral lower extremity wounds. cellulitis status post debridement in this patient who did have significant underlying peripheral arterial disease status post surgical debridement. Those cultures will be followed. The patient continues to be on Cefepime, adjusting antibiotic further, with clinical response. MMODL / IJN: [id number] /
[2019-06-14] MEDS: METOLAZONE 2.5 MG TAB PO SCH (21:32)
[2019-06-14] MEDS: ESCITALOPRAM 10 MG TAB PO SCH (21:32)
[2019-06-14] MEDS: INSULIN DETEMIR (LEVEMIR) 100 UNIT/ML SYR SQ SCH (21:33)
[2019-06-15] MEDS: MORPHINE SULFATE 4 MG/ML SYRINGE IV PRN ×4 (03:40→23:31)
[2019-06-15] MEDS: CEFEPIME 2 GM in SODIUM CHLORIDE 0.9% 100 ML IVPB SCH (05:55)
[2019-06-15 07:12] LABS: Anisocytosis Slight; Basophils % (A) 0 %; Eosinophils # (A) 0.7 k/uL (0-0.7); Eosinophils % (A) 6 %; HCT 26.4 % (39.0-53.0); HGB 8.8 gm/dL (13.0-17.5); Hypochromasia Slight; Lymphocytes # (A) 1.2 k/uL (1.0-4.8); Lymphocytes % (A) 9 %; MCHC 33.1 g/dL (31.0-37.0); MCV 90.6 fL (80.0-100.0); Mean Platelet Volume 8.3; Monocytes # (A) 0.9 k/uL (0-1.0); Monocytes % (A) 7 %; Neutrophils # (A) 9.8 k/uL (1.3-7.7); Neutrophils % (A) 76 %; Platelet Count 315 k/uL (150-450); Poikilocytosis Slight; RBC 2.92 m/uL (4.30-5.90); RDW 16.9 % (11.5-15.5); WBC 12.9 k/uL (3.8-10.6)
[2019-06-15 07:13] LABS: Glucose,Whole Blood 90 mg/dL (75-99)
[2019-06-15 07:21] LABS: Calcium 8.3 mg/dL (8.4-10.2); Potassium 4.4 mmol/L (3.5-5.1)
[2019-06-15] MEDS: INSULIN ASPART (NovoLOG) 100 UNIT/ML VIAL SQ SCH ×4 (08:32→20:48)
[2019-06-15] MEDS: metroNIDAZOLE-NS PMX 500 MG in SALINE 1 100ML.BAG IVPB SCH ×3 (09:12→23:32)
[2019-06-15] MEDS: METOPROLOL TARTRATE 50 MG TAB PO SCH ×2 (09:14→20:46)
[2019-06-15] MEDS: CHOLECALCIFEROL 1,000 UNIT TAB PO SCH (09:14)
[2019-06-15] MEDS: MAGNESIUM OXIDE 400 MG TAB PO SCH ×2 (09:14→20:46)
[2019-06-15] MEDS: PANTOPRAZOLE 40 MG TABLET PO SCH (09:15)
[2019-06-15] MEDS: MULTIVITAMINS, THERA 1 EACH TAB PO SCH (09:15)
[2019-06-15] MEDS: FUROSEMIDE 80 MG TAB PO SCH ×2 (09:15→20:46)
[2019-06-15] MEDS: FERROUS SULFATE 325 MG TAB PO SCH (09:15)
[2019-06-15] MEDS: ASPIRIN 81 MG PO SCH (09:15)
[2019-06-15] MEDS: GABAPENTIN 300 MG CAP PO SCH ×2 (09:15→20:46)
[2019-06-15] MEDS: HEPARIN SODIUM,PORCINE 5,000 UNIT/ML 1 ML VIAL SQ SCH ×2 (09:15→20:46)
[2019-06-15] MEDS: DOCUSATE 100 MG CAP PO SCH (09:15)
[2019-06-15] MEDS: SENNOSIDES 8.6 MG TAB PO SCH (09:19)
[2019-06-15 11:46] LABS: Glucose,Whole Blood 230 mg/dL (75-99)
--- NOTE | 2019-06-15 15:06 | P.PN ---
Subjective This is a pleasant 74 years old male with past medical history of atrial fibrillation, coronary artery disease, heart failure, COPD, diabetes mellitus, hypertension, hyperlipidemia, osteoarthritis, sleep apnea on CPAP/BiPAP, chronic kidney disease stage III, pulmonary hypertension, chronic hypoxic respiratory failure on home oxygen 2 L via nasal cannula, status post CABG, diabetic neuropathy. Presents with bilateral lower leg cellulitis and wounds, with culture growing Pseudomonas and MSSA, as patient is been followed by ID team and currently on cefepime, also vascular surgeon Dr. Suazo evaluated the patient and recommended amputation and also other consultants, however the patient and requested a second opinion and for this reason Dr. Maria he has been consulted. Watch And Clock Repair Clerk evaluated the patient and evaluated patient at some risk during the procedure. He is hemodynamically stable. A left showing WBC of 10.0 K, hemoglobin 8.1, platelet 280 K, sodium 134, creatinine 1.09, sugar is 167 this morning 06/13/2019 Patient awake and alert, he was still complaining from pain in his leg, patient still getting IV morphine, I explained for him the risks and benefits of this medication including but not limiting to the risk of cardiopulmonary arrest, he agrees to continue with same pain medication for now, I explained to the patient that his goal for pain could not be 0 which can cause a lot of side effects but rather should be level he can tolerate and he agrees again. Also I discussed again with the patient today the plan for him is to wait for a second surgical opinion for his lower extremity infection and disease. 06/14/2019 Patient is seen and evaluated in follow-up today awaiting to undergo debridement of the left lower extremity with Dr. Dover today. Preop is here to pick patient up at this time. Currently no reports of chest pain, shortness of breath, or palpitations. Patient is afebrile. No reports of nausea or vomiting and patient has been nothing by mouth this morning. Patient requesting sedation for the procedure as he states he does not want to feel this. Discussed with the patient that this will all be discussed in preop with the physician and the nurses there. Patient verbalized understanding. Will await report. Patient will be going to 4 S. status post procedure. Patient will continue on IV antibiotics form of cefepime along with Flagyl at this time. Infectious disease is following. Will continue to monitor closely. 06/15/2019 Patient is a status post left lower extremity debridement yesterday. Today is postoperative day #1. His lying in bed comfortable he denies chest pain or dyspnea, is fully awake and oriented. His states that his pain is controlled for now. No nausea vomiting and tolerated diet well. WBC still slightly elevated at 12.9 K, hemoglobin stable at 8.8. Creatinine 1.1. Wound culture has been sent Objective - Vital Signs Vital signs: Vital Signs Temp 98.2 F 06/15/19 07:00 Pulse 65 06/15/19 07:00 Resp 18 06/15/19 07:00 BP 131/74 06/15/19 07:00 Pulse Ox 99 06/15/19 07:00 Intake & Output 06/14/19 06/15/19 06/15/19 18:59 06:59 18:59 Intake Total 200 300 Output Total 15 200 950 Balance 185 -200 -650 Weight 84 kg 85.8 kg Intake: IV 200 Oral 300 Output: Urine 200 950 Estimated Blood Loss 15 Other: Voiding Method Urinal Urinal # Voids 3 1 # Bowel Movements 0 - Exam GENERAL: The patient is alert and oriented x3, not in any acute distress. Well developed, well nourished. HEENT: Pupils are round and equally reacting to light. EOMI. No scleral icterus. No conjunctival pallor. Normocephalic, atraumatic. No pharyngeal erythema. No thyromegaly. CARDIOVASCULAR: S1 and S2 present. No murmurs, rubs, or gallops. PULMONARY: Chest is clear to auscultation, no wheezing or crackles. ABDOMEN: Soft, nontender, nondistended, normoactive bowel sounds. No palpable organomegaly. MUSCULOSKELETAL: No joint swelling or deformity. -EXTREMITIES: No cyanosis, clubbing, or pedal edema. Bilateral cellulitis with ulceration with necrotic changes on the left leg (patient refers and palpation examination only inspection) NEUROLOGICAL: Gross neurological examination did not reveal any focal deficits. SKIN: No rashes. no petechiae. - Labs CBC & Chem 7: 06/15/19 06:27 06/15/19 06:27 Labs: Abnormal Lab Results - Last 24 Hours (Table) 06/14/19 06/14/19 06/15/19 Range/Units 16:58 20:28 06:27 WBC 12.9 H (3.8-10.6) k/uL RBC 2.92 L (4.30-5.90) m/uL Hgb 8.8 L (13.0-17.5) gm/dL Hct 26.4 L (39.0-53.0) % RDW 16.9 H (11.5-15.5) % Neutrophils # 9.8 H (1.3-7.7) k/uL Sodium (137-145) mmol/L Chloride (98-107) mmol/L Carbon Dioxide (22-30) mmol/L BUN (9-20) mg/dL POC Glucose (mg/dL) 103 H 168 H (75-99) mg/dL Calcium (8.4-10.2) mg/dL 06/15/19 06/15/19 Range/Units 06:27 11:45 WBC (3.8-10.6) k/uL RBC (4.30-5.90) m/uL Hgb (13.0-17.5) gm/dL Hct (39.0-53.0) % RDW (11.5-15.5) % Neutrophils # (1.3-7.7) k/uL Sodium 135 L (137-145) mmol/L Chloride 97 L (98-107) mmol/L Carbon Dioxide 36 H (22-30) mmol/L BUN 49 H (9-20) mg/dL POC Glucose (mg/dL) 230 H (75-99) mg/dL Calcium 8.3 L (8.4-10.2) mg/dL Microbiology - Last 24 Hours (Table) 06/14/19 11:42 Gram Stain - Preliminary Leg - Left Wound Culture - Preliminary 06/14/19 11:42 Anaerobic Culture - Preliminary Leg - Left Assessment and Plan Assessment: Bilateral lower extremity ulceration and cellulitis peripheral vascular disease status post revascularization surgery in the past Hyponatremia, mild Chronic kidney disease, stage II-III Change in mental status, possible metabolic encephalopathy, improved currently Chronic atrial fibrillation History of coronary artery disease Chronic congestive heart failure with unknown ejection fraction Chronic obstructive pulmonary disease, not in acute exacerbation Type 2 diabetes mellitus Diabetic neuropathy Hypertension Hyperlipidemia Osteoarthritis Sleep apnea Pulmonary hypertension Mitral regurgitation Chronic hypoxic respiratory failure and 2 L oxygen via nasal cannula History of depression, not in activation Plan: This is a pleasant 74 years old male who presents with bilateral lower extremity cellulitis and ulceration, he has history of peripheral vascular disease, robert nue with antibiotics as per ID team and follow-up wound culture sent from his debridement procedure Patient is on antibiotic of cefepime as per ID team. Pain control Labs and medication were reviewed.. Continue same treatment. Continue with symptomatic treatment. Resume home medication. Monitor lytes and vitals. DVT and GI prophylaxis. Further recommendations of the clinical course of the p atient DVT prophylaxis: Subcutaneous heparin GI Prophylaxis: Ppi Prognosis is guarded
[2019-06-15 17:03] LABS: Glucose,Whole Blood 133 mg/dL (75-99)
--- NOTE | 2019-06-15 19:00 | PN ---
PROGRESS NOTE DATE OF SERVICE: 06/15/2019 REASON FOR FOLLOWUP: Bilateral lower extremity wound and cellulitis. INTERVAL HISTORY: Patient is currently afebrile. He seems to be breathing comfortably, resting and no change in clinical condition reported. However, no vomiting or diarrhea. PHYSICAL EXAMINATION: Blood pressure 126/72 with a pulse of 77. Temperature 98.2, he is 100% on 2 L nasal cannula. General description is an elderly male lying in bed in no distress. RESPIRATORY system: Unlabored breathing. Clear to auscultation anteriorly. HEART S1, S2. Regular rate and rhythm. ABDOMEN: Soft, no tenderness. LEGS: Right leg currently wrapped up. No obvious drainage on the dressing. LABS: White count 12.9. BUN 49, creatinine . DIAGNOSTIC IMPRESSION AND PLAN: Patient with bilateral lower extremity wound with wound culture positive for MSSA and Pseudomonas. The patient is covered with Cefepime status post drainage of the abscess. Flagyl has been added with concerns to Indra. Cultures will be followed and antibiotic to be adjusted further based on culture results. Local care to continue. MMODL / IJN: [id number] /
[2019-06-15] MEDS: HYDROcodone/APAP 5-325MG 1 EACH TAB PO PRN (19:24)
[2019-06-15 20:23] LABS: Glucose,Whole Blood 220 mg/dL (75-99)
[2019-06-15] MEDS: ESCITALOPRAM 10 MG TAB PO SCH (20:46)
[2019-06-15] MEDS: ATORVASTATIN 40 MG TAB PO SCH (20:46)
[2019-06-15] MEDS: INSULIN DETEMIR (LEVEMIR) 100 UNIT/ML SYR SQ SCH (20:51)
[2019-06-16] MEDS: MORPHINE SULFATE 4 MG/ML SYRINGE IV PRN ×3 (05:19→19:57)
[2019-06-16] MEDS: CEFEPIME 2 GM in SODIUM CHLORIDE 0.9% 100 ML IVPB SCH (05:20)
[2019-06-16 07:05] LABS: Glucose,Whole Blood 88 mg/dL (75-99)
[2019-06-16] MEDS: INSULIN ASPART (NovoLOG) 100 UNIT/ML VIAL SQ SCH ×4 (07:07→22:01)
[2019-06-16 07:24] LABS: Anisocytosis Slight; Basophils % (A) 0 %; Eosinophils # (A) 1.2 k/uL (0-0.7); Eosinophils % (A) 10 %; HCT 26.2 % (39.0-53.0); HGB 8.4 gm/dL (13.0-17.5); Hypochromasia Slight; Lymphocytes # (A) 0.9 k/uL (1.0-4.8); Lymphocytes % (A) 8 %; MCH 29.8 pg (25.0-35.0); MCHC 32.3 g/dL (31.0-37.0); MCV 92.3 fL (80.0-100.0); Mean Platelet Volume 8.3; Monocytes # (A) 0.6 k/uL (0-1.0); Monocytes % (A) 6 %; Neutrophils # (A) 8.8 k/uL (1.3-7.7); Neutrophils % (A) 74 %; Platelet Count 336 k/uL (150-450); Poikilocytosis Slight; RBC 2.83 m/uL (4.30-5.90); RDW 16.7 % (11.5-15.5); WBC 11.8 k/uL (3.8-10.6)
[2019-06-16 07:43] LABS: Calcium 8.2 mg/dL (8.4-10.2); Potassium 3.5 mmol/L (3.5-5.1)
[2019-06-16] MEDS: GABAPENTIN 300 MG CAP PO SCH ×2 (08:16→22:00)
[2019-06-16] MEDS: MULTIVITAMINS, THERA 1 EACH TAB PO SCH (08:16)
[2019-06-16] MEDS: ASPIRIN 81 MG PO SCH (08:17)
[2019-06-16] MEDS: SENNOSIDES 8.6 MG TAB PO SCH (08:17)
[2019-06-16] MEDS: PANTOPRAZOLE 40 MG TABLET PO SCH (08:17)
[2019-06-16] MEDS: FERROUS SULFATE 325 MG TAB PO SCH (08:17)
[2019-06-16] MEDS: CHOLECALCIFEROL 1,000 UNIT TAB PO SCH (08:17)
[2019-06-16] MEDS: MAGNESIUM OXIDE 400 MG TAB PO SCH ×2 (08:17→22:00)
[2019-06-16] MEDS: FUROSEMIDE 80 MG TAB PO SCH ×2 (08:17→22:00)
[2019-06-16] MEDS: METOPROLOL TARTRATE 50 MG TAB PO SCH ×2 (08:17→22:00)
[2019-06-16] MEDS: HEPARIN SODIUM,PORCINE 5,000 UNIT/ML 1 ML VIAL SQ SCH ×2 (08:17→22:00)
[2019-06-16] MEDS: metroNIDAZOLE-NS PMX 500 MG in SALINE 1 100ML.BAG IVPB SCH (08:17)
[2019-06-16] MEDS: DOCUSATE 100 MG CAP PO SCH (08:17)
--- NOTE | 2019-06-16 11:13 | P.PN ---
Subjective This is a pleasant 74 years old male with past medical history of atrial fibrillation, coronary artery disease, heart failure, COPD, diabetes mellitus, hypertension, hyperlipidemia, osteoarthritis, sleep apnea on CPAP/BiPAP, chronic kidney disease stage III, pulmonary hypertension, chronic hypoxic respiratory failure on home oxygen 2 L via nasal cannula, status post CABG, diabetic neuropathy. Presents with bilateral lower leg cellulitis and wounds, with culture growing Pseudomonas and MSSA, as patient is been followed by ID team and currently on cefepime, also vascular surgeon Dr. Suazo evaluated the patient and recommended amputation and also other consultants, however the patient and requested a second opinion and for this reason Dr. Maria he has been consulted. Cardiac Rehabilitation Program Director evaluated the patient and evaluated patient at some risk during the procedure. He is hemodynamically stable. A left showing WBC of 10.0 K, hemoglobin 8.1, platelet 280 K, sodium 134, creatinine 1.09, sugar is 167 this morning 06/13/2019 Patient awake and alert, he was still complaining from pain in his leg, patient still getting IV morphine, I explained for him the risks and benefits of this medication including but not limiting to the risk of cardiopulmonary arrest, he agrees to continue with same pain medication for now, I explained to the patient that his goal for pain could not be 0 which can cause a lot of side effects but rather should be level he can tolerate and he agrees again. Also I discussed again with the patient today the plan for him is to wait for a second surgical opinion for his lower extremity infection and disease. 06/14/2019 Patient is seen and evaluated in follow-up today awaiting to undergo debridement of the left lower extremity with Dr. Dover today. Preop is here to pick patient up at this time. Currently no reports of chest pain, shortness of breath, or palpitations. Patient is afebrile. No reports of nausea or vomiting and patient has been nothing by mouth this morning. Patient requesting sedation for the procedure as he states he does not want to feel this. Discussed with the patient that this will all be discussed in preop with the physician and the nurses there. Patient verbalized understanding. Will await report. Patient will be going to 4 S. status post procedure. Patient will continue on IV antibiotics form of cefepime along with Flagyl at this time. Infectious disease is following. Will continue to monitor closely. 06/15/2019 Patient is a status post left lower extremity debridement yesterday. Today is postoperative day #1. His lying in bed comfortable he denies chest pain or dyspnea, is fully awake and oriented. His states that his pain is controlled for now. No nausea vomiting and tolerated diet well. WBC still slightly elevated at 12.9 K, hemoglobin stable at 8.8. Creatinine 1.1. Wound culture has been sent 06/16/2019 Patient is comfortable, no acute issue, his pain is controlled. No chest pain or dyspnea. Today is postoperative day #2, vitals are stable. WBC is trending down to 11.835 and creatinine is 1.1. Sugar is controlled I offered today to his daughter's or his family to update him about his situation however he preferred to talk to them by himself and if he changes his mind and wants me to talk to them he will let me know tomorrow Objective - Vital Signs Vital signs: Vital Signs Temp 98.8 F 06/16/19 07:15 Pulse 65 06/16/19 07:15 Resp 18 06/16/19 07:15 BP 113/58 06/16/19 07:15 Pulse Ox 97 06/16/19 07:15 Intake & Output 06/15/19 06/16/19 06/16/19 18:59 06:59 18:59 Intake Total 600 680 Output Total 1450 200 275 Balance -850 -200 405 Weight 90 kg Intake: Intake, IV Titration 100 Amount metroNIDAZOLE-NS PMX 500 100 mg In Saline 1 100ml.bag @ 100 mls/hr IVPB Q8HR [facility] Rx#:[id number] Oral 600 580 Output: Urine 1450 200 275 Other: Voiding Method Urinal Urinal Urinal # Voids 1 1 # Bowel Movements 0 - Exam GENERAL: The patient is alert and oriented x3, not in any acute distress. Well developed, well nourished. HEENT: Pupils are round and equally reacting to light. EOMI. No scleral icterus. No conjunctival pallor. Normocephalic, atraumatic. No pharyngeal erythema. No thyromegaly. CARDIOVASCULAR: S1 and S2 present. No murmurs, rubs, or gallops. PULMONARY: Chest is clear to auscultation, no wheezing or crackles. ABDOMEN: Soft, nontender, nondistended, normoactive bowel sounds. No palpable organomegaly. MUSCULOSKELETAL: No joint swelling or deformity. -EXTREMITIES: No cyanosis, clubbing, or pedal edema. Bilateral cellulitis with ulceration with necrotic changes on the left leg (patient refers and palpation examination only inspection) NEUROLOGICAL: Gross neurological examination did not reveal any focal deficits. SKIN: No rashes. no petechiae. - Labs CBC & Chem 7: 06/16/19 06:22 06/16/19 06:22 Labs: Abnormal Lab Results - Last 24 Hours (Table) 06/15/19 06/15/19 06/15/19 Range/Units 11:45 17:03 20:21 WBC (3.8-10.6) k/uL RBC (4.30-5.90) m/uL Hgb (13.0-17.5) gm/dL Hct (39.0-53.0) % RDW (11.5-15.5) % Neutrophils # (1.3-7.7) k/uL Lymphocytes # (1.0-4.8) k/uL Eosinophils # (0-0.7) k/uL Sodium (137-145) mmol/L Chloride (98-107) mmol/L Carbon Dioxide (22-30) mmol/L BUN (9-20) mg/dL POC Glucose (mg/dL) 230 H 133 H 220 H (75-99) mg/dL Calcium (8.4-10.2) mg/dL 06/16/19 06/16/19 Range/Units 06:22 06:22 WBC 11.8 H (3.8-10.6) k/uL RBC 2.83 L (4.30-5.90) m/uL Hgb 8.4 L (13.0-17.5) gm/dL Hct 26.2 L (39.0-53.0) % RDW 16.7 H (11.5-15.5) % Neutrophils # 8.8 H (1.3-7.7) k/uL Lymphocytes # 0.9 L (1.0-4.8) k/uL Eosinophils # 1.2 H (0-0.7) k/uL Sodium 135 L (137-145) mmol/L Chloride 93 L (98-107) mmol/L Carbon Dioxide 40 H (22-30) mmol/L BUN 45 H (9-20) mg/dL POC Glucose (mg/dL) (75-99) mg/dL Calcium 8.2 L (8.4-10.2) mg/dL Microbiology - Last 24 Hours (Table) 06/14/19 11:42 Gram Stain - Preliminary Leg - Left Wound Culture - Preliminary Gram Neg Bacilli Group D Enterococcus Assessment and Plan Assessment: Bilateral lower extremity ulceration and cellulitis peripheral vascular disease status post revascularization surgery in the past Hyponatremia, mild Chronic kidney disease, stage II-III Change in mental status, possible metabolic encephalopathy, improved currently Chronic atrial fibrillation History of coronary artery disease Chronic congestive heart failure with unknown ejection fraction Chronic obstructive pulmonary disease, not in acute exacerbation Type 2 diabetes mellitus Diabetic neuropathy Hypertension Hyperlipidemia Osteoarthritis Sleep apnea Pulmonary hypertension Mitral regurgitation Chronic hypoxic respiratory failure and 2 L oxygen via nasal cannula History of depression, not in activation Plan: This is a pleasant 74 years old male who presents with bilateral lower extremity cellulitis and ulceration, he has history of peripheral vascular disease, continue with antibiotics as per ID team and follow-up wound culture sent from his debridement procedure Patient is on antibiotic of cefepime as per ID team. Pain control Labs and medication were reviewed.. Continue same treatment. Continue with symptomatic treatment. Resume home medication. Monitor lytes and vitals. DVT and GI prophylaxis. Further recommendations of the clinical course of the patient DVT prophylaxis: Subcutaneous heparin GI Prophylaxis: Ppi Prognosis is guarded
[2019-06-16 11:40] LABS: Glucose,Whole Blood 163 mg/dL (75-99)
[2019-06-16] MEDS: HYDROcodone/APAP 5-325MG 1 EACH TAB PO PRN ×2 (12:26→16:46)
--- NOTE | 2019-06-16 14:10 | P.PN ---
Subjective Progress Note Date: 06/16/19 Principal diagnosis: Status post debridement left lower extremity. Patient is evaluated today 2 days status post debridement of the left lower extremity. Overall the patient indicates she feels improved although continues to have some pain associated with his wound. He denies any foot pain. Laboratory Results - Last 24 Hours 06/15/19 06/15/19 06/16/19 17:03 20:21 06:22 WBC 11.8 H RBC 2.83 L Hgb 8.4 L Hct 26.2 L MCV 92.3 MCH 29.8 MCHC 32.3 RDW 16.7 H Plt Count 336 Neutrophils % 74 Lymphocytes % 8 Monocytes % 6 Eosinophils % 10 Basophils % 0 Neutrophils # 8.8 H Lymphocytes # 0.9 L Monocytes # 0.6 Eosinophils # 1.2 H Basophils # 0.0 Hypochromasia Slight Poikilocytosis Slight Anisocytosis Slight Sodium Potassium Chloride Carbon Dioxide Anion Gap BUN Creatinine Est GFR (CKD-EPI)AfAm Est GFR (CKD-EPI)NonAf Glucose POC Glucose (mg/dL) 133 H 220 H POC Glu Bank Analyst ID Leo Galeas Whitney Gile Calcium 06/16/19 06/16/19 06/16/19 06:22 07:04 11:39 WBC RBC Hgb Hct MCV MCH MCHC RDW Plt Count Neutrophils % Lymphocytes % Monocytes % Eosinophils % Basophils % Neutrophils # Lymphocytes # Monocytes # Eosinophils # Basophils # Hypochromasia Poikilocytosis Anisocytosis Sodium 135 L Potassium 3.5 Chloride 93 L Carbon Dioxide 40 H Anion Gap 2 BUN 45 H Creatinine 1.16 Est GFR (CKD-EPI)AfAm 71 Est GFR (CKD-EPI)NonAf 62 Glucose 79 POC Glucose (mg/dL) 88 163 H POC Glu Bank Analyst ID Leo Galeas Kyle Calcium 8.2 L Physical examination revealed the leg to be free of edema. The wounds are in various stages of healing. The wounds are redressed. Impression: #1: Postop day #2 status post debridement left lower extremity multiple wounds. #2: Multiple medical problems. Plan: #1: Continue with current antibiotic regimen and local wound care. #2: Consult wound care service. #3: Patient may require additional surgical debridement in the relatively near future. Further recommendations will be made in this regard based on patient's progress. Objective - Vital Signs Vital signs: Vital Signs Temp 98.8 F 06/16/19 07:15 Pulse 65 06/16/19 07:15 Resp 18 06/16/19 07:15 BP 113/58 06/16/19 07:15 Pulse Ox 97 06/16/19 07:15 Intake & Output 06/15/19 06/16/19 06/16/19 18:59 06:59 18:59 Intake Total 600 680 Output Total 1450 200 425 Balance -850 -200 255 Weight 90 kg Intake: Intake, IV Titration 100 Amount metroNIDAZOLE-NS PMX 500 100 mg In Saline 1 100ml.bag @ 100 mls/hr IVPB Q8HR [facility] Rx#:[id number] Oral 600 580 Output: Urine 1450 200 425 Other: Voiding Method Urinal Urinal Urinal # Voids 1 1 # Bowel Movements 0 - Labs CBC & Chem 7: 06/16/19 06:22 06/16/19 06:22 Labs: Abnormal Lab Results - Last 24 Hours (Table) 06/15/19 06/15/19 06/16/19 Range/Units 17:03 20:21 06:22 WBC 11.8 H (3.8-10.6) k/uL RBC 2.83 L (4.30-5.90) m/uL Hgb 8.4 L (13.0-17.5) gm/dL Hct 26.2 L (39.0-53.0) % RDW 16.7 H (11.5-15.5) % Neutrophils # 8.8 H (1.3-7.7) k/uL Lymphocytes # 0.9 L (1.0-4.8) k/uL Eosinophils # 1.2 H (0-0.7) k/uL Sodium (137-145) mmol/L Chloride (98-107) mmol/L Carbon Dioxide (22-30) mmol/L BUN (9-20) mg/dL POC Glucose (mg/dL) 133 H 220 H (75-99) mg/dL Calcium (8.4-10.2) mg/dL 06/16/19 06/16/19 Range/Units 06:22 11:39 WBC (3.8-10.6) k/uL RBC (4.30-5.90) m/uL Hgb (13.0-17.5) gm/dL Hct (39.0-53.0) % RDW (11.5-15.5) % Neutrophils # (1.3-7.7) k/uL Lymphocytes # (1.0-4.8) k/uL Eosinophils # (0-0.7) k/uL Sodium 135 L (137-145) mmol/L Chloride 93 L (98-107) mmol/L Carbon Dioxide 40 H (22-30) mmol/L BUN 45 H (9-20) mg/dL POC Glucose (mg/dL) 163 H (75-99) mg/dL Calcium 8.2 L (8.4-10.2) mg/dL Microbiology - Last 24 Hours (Table) 06/14/19 11:42 Gram Stain - Preliminary Leg - Left Wound Culture - Preliminary Gram Neg Bacilli Group D Enterococcus
[2019-06-16 16:26] LABS: Glucose,Whole Blood 154 mg/dL (75-99)
[2019-06-16] MEDS: metroNIDAZOLE 500 MG TAB PO SCH (16:46)
[2019-06-16 20:32] LABS: Glucose,Whole Blood 212 mg/dL (75-99)
--- NOTE | 2019-06-16 20:32 | PN ---
PROGRESS NOTE DATE OF SERVICE: 06/16/2019. REASON FOR FOLLOWUP: Bilateral lower extremity wound and cellulitis. INTERIM HISTORY: The patient is currently afebrile. Patient mentioned feeling slightly better today. The pain is currently controlled. Denies any chest pain, shortness of breath, cough, no abdominal pain and no diarrhea. PHYSICAL EXAMINATION: Blood pressure 120/68 with a pulse of 60, temperature 98.4. He is 93% on room air. General description is an elderly male lying in bed in no distress. Respiratory system: Unlabored breathing. Clear to auscultation anteriorly. Heart S1, S2. Regular rate and rhythm. Abdomen soft, no tenderness. Legs currently dressed up. No obvious drainage on the dressing. LABS: Hemoglobin 8.4 with white count 11.8, wound culture now showing Enterococcus and Pseudomonas aeruginosa. DIAGNOSTIC IMPRESSION AND PLAN: Patient with right leg wound. Previous culture was Pseudomonas MSSA, now the culture showing Pseudomonas and enterococcus. Antibiotic will be switched to Zosyn 3.375 q8 hours via the Midline. Plan to continue with antibiotic for at least 2 weeks. Local care to continue per vascular surgery. MMODL / IJN: [id number] /
[2019-06-16] MEDS: ESCITALOPRAM 10 MG TAB PO SCH (21:59)
[2019-06-16] MEDS: ATORVASTATIN 40 MG TAB PO SCH (22:00)
[2019-06-16] MEDS: INSULIN DETEMIR (LEVEMIR) 100 UNIT/ML SYR SQ SCH (22:00)
[2019-06-17] MEDS: metroNIDAZOLE 500 MG TAB PO SCH ×4 (00:24→23:24)
[2019-06-17 06:53] LABS: Glucose,Whole Blood 148 mg/dL (75-99)
[2019-06-17] MEDS: PIPERACILLIN-TAZOBACTAM 3.375 GM in SODIUM CHLORIDE 0.9% 100 ML IVPB SCH ×4 (07:31→23:56)
[2019-06-17 07:34] LABS: Anisocytosis Slight; Basophils % (A) 0 %; Eosinophils # (A) 0.9 k/uL (0-0.7); Eosinophils % (A) 7 %; HGB 8.8 gm/dL (13.0-17.5); Hypochromasia Slight; Lymphocytes # (A) 0.8 k/uL (1.0-4.8); Lymphocytes % (A) 7 %; MCH 29.8 pg (25.0-35.0); MCHC 32.5 g/dL (31.0-37.0); MCV 91.6 fL (80.0-100.0); Monocytes # (A) 0.5 k/uL (0-1.0); Monocytes % (A) 4 %; Neutrophils # (A) 9.5 k/uL (1.3-7.7); Neutrophils % (A) 79 %; Platelet Count 375 k/uL (150-450); Poikilocytosis Slight; RBC 2.94 m/uL (4.30-5.90); RDW 17.1 % (11.5-15.5)
[2019-06-17] MEDS: CHOLECALCIFEROL 1,000 UNIT TAB PO SCH (07:59)
[2019-06-17] MEDS: MAGNESIUM OXIDE 400 MG TAB PO SCH ×2 (07:59→20:26)
[2019-06-17] MEDS: ASPIRIN 81 MG PO SCH (07:59)
[2019-06-17] MEDS: DOCUSATE 100 MG CAP PO SCH (07:59)
[2019-06-17] MEDS: FUROSEMIDE 80 MG TAB PO SCH ×2 (07:59→20:26)
[2019-06-17] MEDS: SENNOSIDES 8.6 MG TAB PO SCH (07:59)
[2019-06-17] MEDS: FERROUS SULFATE 325 MG TAB PO SCH (07:59)
[2019-06-17] MEDS: GABAPENTIN 300 MG CAP PO SCH ×2 (07:59→20:26)
[2019-06-17] MEDS: INSULIN ASPART (NovoLOG) 100 UNIT/ML VIAL SQ SCH ×4 (07:59→20:26)
[2019-06-17] MEDS: MULTIVITAMINS, THERA 1 EACH TAB PO SCH (08:00)
[2019-06-17] MEDS: PANTOPRAZOLE 40 MG TABLET PO SCH (08:00)
[2019-06-17] MEDS: METOPROLOL TARTRATE 50 MG TAB PO SCH ×2 (08:00→20:26)
[2019-06-17] MEDS: HEPARIN SODIUM,PORCINE 5,000 UNIT/ML 1 ML VIAL SQ SCH ×2 (08:01→20:26)
[2019-06-17] MEDS: MORPHINE SULFATE 4 MG/ML SYRINGE IV PRN ×3 (08:27→17:08)
[2019-06-17 11:35] LABS: Glucose,Whole Blood 196 mg/dL (75-99)
--- NOTE | 2019-06-17 12:03 | P.PN ---
Subjective Progress Note Date: 06/17/19 Patient seen and examined at the bedside. He is status post debridement of the left lower extremity. The patient states his pain has improved at least 50%. He denies any fevers or chills. He does still have quite a bit of pain in the left lower extremity with dressing changes. Infectious disease continues to follow patient, antibiotics have been changed to Zosyn. The patient is argumentative and states is frustrated with his care. He states he only wants Dr. Burrell to touch his lower extremities. Objective - Vital Signs Vital signs: Vital Signs Temp 98.8 F 06/17/19 07:00 Pulse 63 06/17/19 07:00 Resp 18 06/17/19 07:00 BP 137/69 06/17/19 07:00 Pulse Ox 100 06/17/19 07:00 Intake & Output 06/16/19 06/17/19 06/17/19 18:59 06:59 18:59 Intake Total 680 100 Output Total 425 100 Balance 255 0 Weight 91.5 kg Intake: Intake, IV Titration 100 100 Amount Cefepime 2 gm In Sodium 100 Chloride 0.9% 100 ml @ 200 mls/hr IVPB Q24H [facility] Rx#:[id number] metroNIDAZOLE-NS PMX 500 100 mg In Saline 1 100ml.bag @ 100 mls/hr IVPB Q8HR [facility] Rx#:[id number] Oral 580 Output: Urine 425 100 Other: Voiding Method Urinal Urinal # Voids 1 - Labs CBC & Chem 7: 06/17/19 06:39 06/16/19 06:22 Labs: Abnormal Lab Results - Last 24 Hours (Table) 06/16/19 06/16/19 06/16/19 Range/Units 11:39 16:24 20:19 WBC (3.8-10.6) k/uL RBC (4.30-5.90) m/uL Hgb (13.0-17.5) gm/dL Hct (39.0-53.0) % RDW (11.5-15.5) % Neutrophils # (1.3-7.7) k/uL Lymphocytes # (1.0-4.8) k/uL Eosinophils # (0-0.7) k/uL POC Glucose (mg/dL) 163 H 154 H 212 H (75-99) mg/dL 06/17/19 06/17/19 Range/Units 06:39 06:51 WBC 12.0 H (3.8-10.6) k/uL RBC 2.94 L (4.30-5.90) m/uL Hgb 8.8 L (13.0-17.5) gm/dL Hct 27.0 L (39.0-53.0) % RDW 17.1 H (11.5-15.5) % Neutrophils # 9.5 H (1.3-7.7) k/uL Lymphocytes # 0.8 L (1.0-4.8) k/uL Eosinophils # 0.9 H (0-0.7) k/uL POC Glucose (mg/dL) 148 H (75-99) mg/dL Microbiology - Last 24 Hours (Table) 06/14/19 11:42 Gram Stain - Final Leg - Left Wound Culture - Final Pseudomonas aeruginosa Enterococcus faecalis Assessment and Plan Assessment: 1. Chronic peripheral arterial disease status post left lower extremity balloon angioplasty and stenting 2. Bilateral lower extremity nonhealing wounds with dry gangrene, status post debridement 3. Bilateral lower leg cellulitis 4. Diabetes mellitus 5. Hypertension 6. Hyperlipidemia 7. Coronary artery disease Plan: Consult to wound care for local wound care. Continue with recommendations per infectious disease. May require further debridement in the near future, can be done outpatient. Further recommendations to follow. The above dictated assessment and findings were discussed with Dr. Heath. The impression and plan of care have been directed as dictated.
--- NOTE | 2019-06-17 13:07 | P.PN ---
Subjective This is a pleasant 74 years old male with past medical history of atrial fibrillation, coronary artery disease, heart failure, COPD, diabetes mellitus, hypertension, hyperlipidemia, osteoarthritis, sleep apnea on CPAP/BiPAP, chronic kidney disease stage III, pulmonary hypertension, chronic hypoxic respiratory failure on home oxygen 2 L via nasal cannula, status post CABG, diabetic neuropathy. Presents with bilateral lower leg cellulitis and wounds, with culture growing Pseudomonas and MSSA, as patient is been followed by ID team and currently on cefepime, also vascular surgeon Dr. Suazo evaluated the patient and recommended amputation and also other consultants, however the patient and requested a second opinion and for this reason Dr. Maria he has been consulted. Plant Changer evaluated the patient and evaluated patient at some risk during the procedure. He is hemodynamically stable. A left showing WBC of 10.0 K, hemoglobin 8.1, platelet 280 K, sodium 134, creatinine 1.09, sugar is 167 this morning 06/13/2019 Patient awake and alert, he was still complaining from pain in his leg, patient still getting IV morphine, I explained for him the risks and benefits of this medication including but not limiting to the risk of cardiopulmonary arrest, he agrees to continue with same pain medication for now, I explained to the patient that his goal for pain could not be 0 which can cause a lot of side effects but rather should be level he can tolerate and he agrees again. Also I discussed again with the patient today the plan for him is to wait for a second surgical opinion for his lower extremity infection and disease. 06/14/2019 Patient is seen and evaluated in follow-up today awaiting to undergo debridement of the left lower extremity with Dr. Dover today. Preop is here to pick patient up at this time. Currently no reports of chest pain, shortness of breath, or palpitations. Patient is afebrile. No reports of nausea or vomiting and patient has been nothing by mouth this morning. Patient requesting sedation for the procedure as he states he does not want to feel this. Discussed with the patient that this will all be discussed in preop with the physician and the nurses there. Patient verbalized understanding. Will await report. Patient will be going to 4 S. status post procedure. Patient will continue on IV antibiotics form of cefepime along with Flagyl at this time. Infectious disease is following. Will continue to monitor closely. 06/15/2019 Patient is a status post left lower extremity debridement yesterday. Today is postoperative day #1. His lying in bed comfortable he denies chest pain or dyspnea, is fully awake and oriented. His states that his pain is controlled for now. No nausea vomiting and tolerated diet well. WBC still slightly elevated at 12.9 K, hemoglobin stable at 8.8. Creatinine 1.1. Wound culture has been sent 06/16/2019 Patient is comfortable, no acute issue, his pain is controlled. No chest pain or dyspnea. Today is postoperative day #2, vitals are stable. WBC is trending down to 11.835 and creatinine is 1.1. Sugar is controlled I offered today to his daughter's or his family to update him about his situation however he preferred to talk to them by himself and if he changes his mind and wants me to talk to them he will let me know tomorrow 06/17/2019 patient lying comfortable in bed, no new complaint no chest pain or dyspnea, no abdominal complaints is tolerating diet well, no urinary issues. No fever Yesterday his wound culture was showing enterococcus on the top of pseudomonas so cefepime has changed to Zosyn by ID team. I discussed with the patient the recommendation by surgical team for the need for some reevaluation for possible further debridement, he verbalized understanding ,also he wants to follow up also with Dr. Burrell upon discharge.still has mild leukocytosis of 12.0 K, sugar controlled. A still on 3 L oxygenwith saturating 94-100% Objective - Vital Signs Vital signs: Vital Signs Temp 98.8 F 06/17/19 07:00 Pulse 63 06/17/19 07:00 Resp 18 06/17/19 07:00 BP 137/69 06/17/19 07:00 Pulse Ox 100 06/17/19 07:00 Intake & Output 06/16/19 06/17/19 06/17/19 18:59 06:59 18:59 Intake Total 680 100 Output Total 425 100 Balance 255 0 Weight 91.5 kg Intake: Intake, IV Titration 100 100 Amount Cefepime 2 gm In Sodium 100 Chloride 0.9% 100 ml @ 200 mls/hr IVPB Q24H [facility] Rx#:[id number] metroNIDAZOLE-NS PMX 500 100 mg In Saline 1 100ml.bag @ 100 mls/hr IVPB Q8HR [facility] Rx#:[id number] Oral 580 Output: Urine 425 100 Other: Voiding Method Urinal Urinal # Voids 1 - Labs CBC & Chem 7: 06/17/19 06:39 06/16/19 06:22 Labs: Abnormal Lab Results - Last 24 Hours (Table) 06/16/19 06/16/19 06/17/19 Range/Units 16:24 20:19 06:39 WBC 12.0 H (3.8-10.6) k/uL RBC 2.94 L (4.30-5.90) m/uL Hgb 8.8 L (13.0-17.5) gm/dL Hct 27.0 L (39.0-53.0) % RDW 17.1 H (11.5-15.5) % Neutrophils # 9.5 H (1.3-7.7) k/uL Lymphocytes # 0.8 L (1.0-4.8) k/uL Eosinophils # 0.9 H (0-0.7) k/uL POC Glucose (mg/dL) 154 H 212 H (75-99) mg/dL 06/17/19 06/17/19 Range/Units 06:51 11:32 WBC (3.8-10.6) k/uL RBC (4.30-5.90) m/uL Hgb (13.0-17.5) gm/dL Hct (39.0-53.0) % RDW (11.5-15.5) % Neutrophils # (1.3-7.7) k/uL Lymphocytes # (1.0-4.8) k/uL Eosinophils # (0-0.7) k/uL POC Glucose (mg/dL) 148 H 196 H (75-99) mg/dL Microbiology - Last 24 Hours (Table) 06/14/19 11:42 Gram Stain - Final Leg - Left Wound Culture - Final Pseudomonas aeruginosa Enterococcus faecalis Assessment and Plan Assessment: Bilateral lower extremity ulceration and cellulitis peripheral vascular disease status post revascularization surgery in the past Hyponatremia, mild Chronic kidney disease, stage II-III Change in mental status, possible metabolic encephalopathy, improved currently Chronic atrial fibrillation History of coronary artery disease Chronic congestive heart failure with unknown ejection fraction Chronic obstructive pulmonary disease, not in acute exacerbation Type 2 diabetes mellitus Diabetic neuropathy Hypertension Hyperlipidemia Osteoarthritis Sleep apnea Pulmonary hypertension Mitral regurgitation Chronic hypoxic respiratory failure and 2 L oxygen via nasal cannula History of depression, not in activation Plan: This is a pleasant 74 years old male who presents with bilateral lower extremity cellulitis and ulceration, he has history of peripheral vascular disease, continue with antibiotics as per ID team and follow-up wound culture sent from his debridement procedure. Follow-up with vascular surgery was seen the patient regularly Pain control Labs and medication were reviewed.. Continue same treatment. Continue with symptomatic treatment. Resume home medication. Monitor lytes and vitals. DVT and GI prophylaxis. Further recommendations of the clinical course of the patient DVT prophylaxis: Subcutaneous heparin GI Prophylaxis: Ppi Prognosis is guarded
--- NOTE | 2019-06-17 13:09 | P.CONS ---
History of Present Illness - Reason for Consult Consult date: 06/17/19 Wound care - History of Present Illness This is a 74-year-old male who is known to the wound care center being seen on 4 S. for nonhealing ulcerations to bilateral lower extremities. Patient underwent a wound debridement and is currently receiving Dakin's wet-to-dry to the dorsal foot and medial ankle. Adaptic to all other wounds 4 x 4's and Kerlix. At this time patient is refusing any treatment from the wound care center. He would like to speak with Dr. Burrell prior to continuing with wound care. Review of Systems Review Of Systems: Constitutional: No fever, no chills, no night sweats. No weight change. No weakness, fatigue or lethargy. No daytime sleepiness. Integumentary:reports wounds, no lesions. No rash or pruritus. No unusual bruising. No change in hair or nails. Past Medical History Past Medical History: Atrial Fibrillation, Coronary Artery Disease (CAD), Heart Failure, COPD, Diabetes Mellitus, Eye Disorder, Hyperlipidemia, Hypertension, Osteoarthritis (OA), Pneumonia, Renal Disease, Sleep Apnea/CPAP/BIPAP, Vascular Disorder Additional Past Medical History / Comment(s): Chronic anemia/procrit, hx CKD stage III, pulmonary HTN, home oxygen continuous at 2L NC, decreased vision bilaterally since CABG surgery, neuropathy bilateral legs/feet, chronic bilateral leg/foot pain, severe PVD, past bilateral lower leg/foot wounds and cellulitis, current bilateral lower leg wounds, sepsis d/t leg wounds 2018, mild gastritis, diverticular disease. no cpap used History of Any Multi-Drug Resistant Organisms: None Reported Past Surgical History: Adenoidectomy, Cardiac Valve Replacement, Heart Catheterization, Heart Catheterization With Stent, Tonsillectomy Additional Past Surgical History / Comment(s): 04/22/19 L leg angiogram, FAUSTINO, mitral valve repair 10/31/18, EGD, colonoscopies. one cardiac stent, Vascular surgery May 28 left leg Past Anesthesia/Blood Transfusion Reactions: No Reported Reaction Additional Past Anesthesia/Blood Transfusion Reaction / Comm: DIFF IV STARTS Date of Last Stent Placement:: fall 2018 Past Psychological History: Depression Additional Psychological History / Comment(s): . Smoking Status: Former smoker Past Alcohol Use History: Occasional Additional Past Alcohol Use History / Comment(s): Pt started smoking in 7 and quit in 2007. He smoked pipe. Past Drug Use History: None Reported - Past Family History Father Family Medical History: Cancer Additional Family Medical History / Comment(s): stomach Mother Family Medical History: Congestive Heart Failure (CHF) Additional Family Medical History / Comment(s): AT AGE 68 Brother(s) Family Medical History: Cancer Medications and Allergies Home Medications Medication Instructions Recorded Confirmed Type Cholecalciferol [Vitamin D3 (25 2,000 unit PO DAILY 01/04/16 06/07/19 History Mcg = 1000 Iu)] Ferrous Sulfate [Iron (65 MG 325 mg PO DAILY 01/04/16 06/07/19 History Elemental)] Multivitamins, Thera [Multivitamin 1 tab PO DAILY 01/09/17 06/07/19 History (formulary)] Aspirin 81 mg PO DAILY 11/29/18 06/07/19 History Metoprolol Tartrate [Lopressor] 50 mg PO BID 11/29/18 06/07/19 History Atorvastatin [Lipitor] 40 mg PO HS tab 12/13/18 06/07/19 Rx Insulin Detemir (Levemir) [Levemir] 12 unit SQ HS syr 01/18/19 06/07/19 Rx Magnesium Oxide [Mag-Ox] 400 mg PO BID 30 Days #60 tab 01/23/19 06/07/19 Rx INSULIN LISPRO (humaLOG) [humaLOG] See Protocol SQ AC-TID 04/17/19 06/07/19 History Hydrocodone/Acetaminophen [Cutler 1 tab PO Q8HR 05/07/19 06/07/19 History 5-325] Acetaminophen [Tylenol] 650 mg PO TID 05/24/19 06/07/19 History Albuterol Inhaler [Ventolin Hfa 2 puff INHALATION RT-Q6H PRN 05/24/19 06/07/19 History Inhaler] Clopidogrel Bisulfate [Plavix] 75 mg PO DAILY 05/24/19 06/07/19 History Collagenase [Santyl] 1 applic TOPICAL HS 05/24/19 06/07/19 History Darbepoetin Ruddy [Aranesp] 40 mcg IJ TU 05/24/19 06/07/19 History Docusate [Colace] 100 mg PO DAILY 05/24/19 06/07/19 History Escitalopram [Lexapro] 10 mg PO HS 05/24/19 06/07/19 History Furosemide [Lasix] 80 mg PO BID 05/24/19 06/07/19 History Gabapentin [Neurontin] 100 mg PO BID 05/24/19 06/07/19 History Heparin Sodium,Porcine [Heparin 5,000 unit SQ Q12HR 05/24/19 06/07/19 History Sodium] Metolazone [Zaroxolyn] 2.5 mg PO TUFR 05/24/19 06/07/19 History Oxymetazoline 0.05% Nasl [place] 1 spray EA NOSTRIL Q4HR PRN 05/24/19 06/07/19 History [Afrin 0.05% Nasal [place]] Sennosides [Senna] 8.6 mg PO DAILY 05/24/19 06/07/19 History Sodium Chloride [Saline Nasal 1 spray EA NOSTRIL Q2HR PRN 05/24/19 06/07/19 History [place]] Acetaminophen [Tylenol] 650 mg PO Q4H PRN 06/07/19 06/07/19 History Bisacodyl 5 mg PO Q24H PRN 06/07/19 06/07/19 History Glucagon Emergency Kit 1 mg IM ONCE PRN 06/07/19 06/07/19 History Glycerin Adult Suppository 1 supp RECTAL Q24H PRN 06/07/19 06/07/19 History Lactobacillus Acidophilus 1 tab PO DAILY 06/07/19 06/07/19 History [Acidophilus] Sodium Chloride [Saline Nasal 1 spray EA NOSTRIL QID PRN 06/07/19 06/07/19 History [place]] Zinc Oxide Ointment 1 applic TOPICAL TID 06/07/19 06/07/19 History traMADol HCl [Ultram] 50 mg PO Q6H PRN 06/07/19 06/07/19 History Allergies Allergy/AdvReac Type Severity Reaction Status Date / Time No Known Allergies Allergy Verified 06/07/19 19:09 Physical Exam Vitals: Vital Signs Temp Pulse Pulse Resp BP Pulse Ox 06/17/19 07:00 98.8 F 63 18 137/69 100 06/17/19 04:00 63 70 15 06/17/19 00:55 98.3 F 70 15 124/70 94 L 06/16/19 23:22 63 68 20 06/16/19 19:46 63 68 20 06/16/19 19:07 98.6 F 65 14 114/63 98 06/16/19 15:00 98.4 F 68 18 120/68 93 L Intake and Output 06/16/19 06/17/19 06/17/19 22:59 06:59 14:59 Intake Total 100 Output Total 100 Balance 100 -100 Intake: Intake, IV Titration 100 Amount Cefepime 2 gm In Sodium 100 Chloride 0.9% 100 ml @ 200 mls/hr IVPB Q24H [facility] Rx#:[id number] Output: Urine 100 Other: Voiding Method Urinal Urinal Weight 91.5 kg Physical exam: General Appearance: Alert, uncooperative, no distress, appears stated age. Skin: Patient refused Neurologic: Alert oriented x3 Results CBC & Chem 7: 06/17/19 06:39 06/16/19 06:22 Labs: Abnormal Lab Results - Last 24 Hours (Table) 06/16/19 06/16/19 06/17/19 Range/Units 16:24 20:19 06:39 WBC 12.0 H (3.8-10.6) k/uL RBC 2.94 L (4.30-5.90) m/uL Hgb 8.8 L (13.0-17.5) gm/dL Hct 27.0 L (39.0-53.0) % RDW 17.1 H (11.5-15.5) % Neutrophils # 9.5 H (1.3-7.7) k/uL Lymphocytes # 0.8 L (1.0-4.8) k/uL Eosinophils # 0.9 H (0-0.7) k/uL POC Glucose (mg/dL) 154 H 212 H (75-99) mg/dL 06/17/19 06/17/19 Range/Units 06:51 11:32 WBC (3.8-10.6) k/uL RBC (4.30-5.90) m/uL Hgb (13.0-17.5) gm/dL Hct (39.0-53.0) % RDW (11.5-15.5) % Neutrophils # (1.3-7.7) k/uL Lymphocytes # (1.0-4.8) k/uL Eosinophils # (0-0.7) k/uL POC Glucose (mg/dL) 148 H 196 H (75-99) mg/dL Microbiology - Last 24 Hours (Table) 06/14/19 11:42 Gram Stain - Final Leg - Left Wound Culture - Final Pseudomonas aeruginosa Enterococcus faecalis Assessment and Plan (1) Type 2 diabetes mellitus with diabetic polyneuropathy Current Visit: Yes Status: Acute Code(s): E11.42 - TYPE 2 DIABETES MELLITUS WITH DIABETIC POLYNEUROPATHY SNOMED Code(s): 862165186 (2) Non-pressure chronic ulcer of other part of left foot with fat layer exposed Current Visit: Yes Status: Acute Code(s): L97.522 - NON-PRS CHRONIC ULCER OTH PRT LEFT FOOT W FAT LAYER EXPOSED SNOMED Code(s): 110597929 (3) 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 layer exposed Current Visit: Yes Status: Acute Code(s): L97.322 - NON-PRESSURE CHRONIC ULCER OF LEFT ANKLE W FAT LAYER EXPOSED SNOMED Code(s): 71772358441166366 (4) Non-pressure chronic ulcer of other part of left lower leg with fat layer exposed Current Visit: Yes Status: Acute Code(s): L97.822 - NON-PRS CHRONIC ULCER OTH PRT L LOW LEG W FAT LAYER EXPOSED SNOMED Code(s): 92792964 Plan: Patient refused wound care intervention at this time. Patient is receiving daily wound care per vascular surgeon that consistent with Dakin's wet-to-dry daily. Explained to the patient we may continue with this dressing until he has opportunity to speak with Dr. Burrell for recommendations. Patient verbalized understanding. Patient is an active patient was in the wound care center he may return to the service upon discharge. Thank you kindly for the consultation. Any questions please contact the wound care center DNP note has been reviewed and discussed with Dr. Saleem and the impression and plan of care has been directed as dictated.
[2019-06-17 13:39] VITALS: BMI 32.5
--- NOTE | 2019-06-17 14:02 | CDI ---
Documentation Clarification Form Date: 06/17/2019 01:16:47 PM From: Ute Gabriel Admit Date: 06/07/2019 05:03:00 PM Patient Name: Deep Anderson Visit Number: [id number] Discharge Date: ATTENTION: The Clinical Documentation Specialists (CDI) and [facility] Coding Staff appreciate your assistance in clarifying documentation. Please respond to the clarification below the line at the bottom and electronically sign. The CDI & [facility] Coding staff will review the response and follow-up if needed. Please note: Queries are made part of the Legal Health Record. If you have any questions, please contact the author of this message via ITS. Dr. Bakari Murphy MD The diagnosis possible sepsis present on admission was documented in Internal Medicine Progress Note 06/07, 06/08, 06/09 & 06/10 but is not noted in subsequent documentation. History/Risk Factors: 74-year-old male presents to the ED with bilateral foot ulcers left more than right with severe pain. Medical history DM2, CKD 3, Chronic PAD, chronic non healing wounds. Clinical Indicators: Vss 06/06 122/77 66 97.8 16 100% 2L nasal cannula Labs 06/06 - Wbc 10.1, Neutrophils 8.3 Labs 06/07 - Wbc 16.5, Neutrophils 15.2 Per the Vascular surgery consult 06/10 Bilateral lower extremity non healing wounds with dry gangrene and cellulitis 06/13 Sharp excisional debridement of the left lower extremity multiple wounds debrided Dorsal foot to the tendon, Great Toe subcutaneous tissue, Distal medial ankle to the tendon, Posterior leg, multiple anterior velasquez to subcutaneous tissue. Treatment: 05/09 0.9ns 130cc/hr d/c 06/08, 06/07 Cefepime Ivpb Q 12 hrs, 06/12 Flagyl Ivpb Q8hrs d/c 06/15, 06/15 Flagyl 500mg po, Zosyn Ivpb Q8hrs. Please clarify if the diagnosis of Sepsis was Present/active this admission Treated and resolved this admission Ruled out Other, please specify Clinically unable to determine (Last Query Form Revision: November 2018) unlikely pt had sepsis on admission no SIRS , only leukocytosis MTDD
[2019-06-17 17:20] LABS: Glucose,Whole Blood 164 mg/dL (75-99)
[2019-06-17 20:18] LABS: Glucose,Whole Blood 187 mg/dL (75-99)
[2019-06-17] MEDS: ESCITALOPRAM 10 MG TAB PO SCH (20:26)
[2019-06-17] MEDS: ATORVASTATIN 40 MG TAB PO SCH (20:26)
[2019-06-17] MEDS: BISACODYL 5 MG TABLET.DR PO PRN (20:26)
[2019-06-17] MEDS: INSULIN DETEMIR (LEVEMIR) 100 UNIT/ML SYR SQ SCH (20:27)
--- NOTE | 2019-06-18 05:37 | PN ---
PROGRESS NOTE DATE OF SERVICE: 06/17/2019 REASON FOR FOLLOWUP: Bilateral lower extremity wound and cellulitis. INTERVAL HISTORY: The patient is currently afebrile. Pain to the right leg wound is currently decreased in intensity. Denies having any chest pain, shortness of breath or cough. No abdominal pain or diarrhea. PHYSICAL EXAMINATION: Blood pressure 132/68 with a pulse of 71, temperature 98.7. He is 96% on 2 L nasal cannula. General description is an elderly male lying in bed in no distress. RESPIRATORY SYSTEM: Unlabored breathing, clear to auscultation anteriorly. HEART: S1, S2. Regular rate and rhythm. ABDOMEN: Soft, no tenderness. Legs are currently wrapped up. No obvious drainage on the dressing. LABS: White count of 12,000. Wound culture with anaerobic Gram-negative bacilli, Pseudomonas and Enterococcus faecalis. DIAGNOSTIC IMPRESSION AND PLAN: Patient with bilateral lower extremity wound with secondary cellulitis in this patient who did have surgical debridement by Vascular Surgery that have consulted wound care for the local wound care. We will continue wound care per them. As far as antibiotic therapy, patient is currently with Zosyn and Flagyl, to continue. Will get a Midline to continue with antibiotic for 2 weeks and a close outpatient followup. MMODL / IJN: [id number] /
[2019-06-18 07:03] LABS: Glucose,Whole Blood 107 mg/dL (75-99)
[2019-06-18 07:04] LABS: Anisocytosis Slight; Basophils % (A) 0 %; Eosinophils # (A) 0.7 k/uL (0-0.7); Eosinophils % (A) 6 %; HCT 27.3 % (39.0-53.0); HGB 8.7 gm/dL (13.0-17.5); Hypochromasia Slight; Lymphocytes % (A) 9 %; MCH 29.4 pg (25.0-35.0); MCV 91.8 fL (80.0-100.0); Mean Platelet Volume 8.2; Monocytes # (A) 0.6 k/uL (0-1.0); Monocytes % (A) 5 %; Neutrophils # (A) 9.6 k/uL (1.3-7.7); Neutrophils % (A) 78 %; Platelet Count 396 k/uL (150-450); Poikilocytosis Slight; RBC 2.97 m/uL (4.30-5.90); RDW 16.9 % (11.5-15.5); WBC 12.3 k/uL (3.8-10.6)
[2019-06-18] MEDS: INSULIN ASPART (NovoLOG) 100 UNIT/ML VIAL SQ SCH ×4 (07:19→20:06)
[2019-06-18] MEDS: CHOLECALCIFEROL 1,000 UNIT TAB PO SCH (07:31)
[2019-06-18] MEDS: metroNIDAZOLE 500 MG TAB PO SCH ×2 (07:31→17:40)
[2019-06-18] MEDS: METOPROLOL TARTRATE 50 MG TAB PO SCH ×2 (07:31→20:07)
[2019-06-18] MEDS: FUROSEMIDE 80 MG TAB PO SCH ×2 (07:31→20:06)
[2019-06-18] MEDS: PANTOPRAZOLE 40 MG TABLET PO SCH (07:31)
[2019-06-18] MEDS: ASPIRIN 81 MG PO SCH (07:31)
[2019-06-18] MEDS: HYDROcodone/APAP 5-325MG 1 EACH TAB PO PRN ×2 (07:32→14:18)
[2019-06-18] MEDS: GABAPENTIN 300 MG CAP PO SCH ×2 (07:32→20:06)
[2019-06-18] MEDS: FERROUS SULFATE 325 MG TAB PO SCH (07:32)
[2019-06-18] MEDS: MAGNESIUM OXIDE 400 MG TAB PO SCH ×2 (07:32→20:07)
[2019-06-18] MEDS: SENNOSIDES 8.6 MG TAB PO SCH (07:32)
[2019-06-18] MEDS: HEPARIN SODIUM,PORCINE 5,000 UNIT/ML 1 ML VIAL SQ SCH ×2 (07:33→20:06)
[2019-06-18] MEDS: MULTIVITAMINS, THERA 1 EACH TAB PO SCH (07:33)
[2019-06-18] MEDS: DOCUSATE 100 MG CAP PO SCH (07:33)
--- NOTE | 2019-06-18 08:13 | P.PN ---
Subjective Progress Note Date: 06/18/19 Patient seen and examined. No acute events overnight. Pain is controlled. No acute distress, getting midline IV insertion now Heart is regular, decreased breath sounds but clear Abdomen soft Bilateral lower trauma is warm and dry. Dressings in place. No obvious discharge or purulent drainage #1 bilateral lower extremity wounds #2 Maria Luisa 5 peripheral arterial disease #3 infrapopliteal arterial occlusive disease At this time would favor going forward with aggressive local wound care, discuss ed with Dr. Saleem. Continue IV abiox per infectious disease. From my standpoint okay with discharge at this time, monitor for the next few weeks for any changes or improvement of the wounds given her relatively recent endovascular intervention and popliteal artery. If no significant changes, co nsider popliteal to PT bypass with vein. Patient seemingly understands. Left message with patient's . Follow up with me in office, wound care weekly on discharge Objective - Vital Signs Vital signs: Vital Signs Temp 98.3 F 06/18/19 07:38 Pulse 72 06/18/19 07:38 Resp 16 06/18/19 07:38 BP 150/76 06/18/19 07:38 Pulse Ox 97 06/18/19 07:38 Intake & Output 06/17/19 06/18/19 06/18/19 18:59 06:59 18:59 Output Total 775 Balance -775 Weight 91.5 kg 91 kg Output: Urine 775 Other: Voiding Method Urinal # Voids 3 1 - Labs CBC & Chem 7: 06/18/19 05:59 06/16/19 06:22 Labs: Abnormal Lab Results - Last 24 Hours (Table) 06/17/19 06/17/19 06/17/19 Range/Units 11:32 17:18 20:17 WBC (3.8-10.6) k/uL RBC (4.30-5.90) m/uL Hgb (13.0-17.5) gm/dL Hct (39.0-53.0) % RDW (11.5-15.5) % Neutrophils # (1.3-7.7) k/uL POC Glucose (mg/dL) 196 H 164 H 187 H (75-99) mg/dL 06/18/19 06/18/19 Range/Units 05:59 07:02 WBC 12.3 H (3.8-10.6) k/uL RBC 2.97 L (4.30-5.90) m/uL Hgb 8.7 L (13.0-17.5) gm/dL Hct 27.3 L (39.0-53.0) % RDW 16.9 H (11.5-15.5) % Neutrophils # 9.6 H (1.3-7.7) k/uL POC Glucose (mg/dL) 107 H (75-99) mg/dL Microbiology - Last 24 Hours (Table) 06/14/19 11:42 Anaerobic Culture - Final Leg - Left Anaerobic Gm Negative Bacilli Anaerobic Gram Positive Cocci
[2019-06-18] MEDS: PIPERACILLIN-TAZOBACTAM 3.375 GM in SODIUM CHLORIDE 0.9% 100 ML IVPB SCH ×2 (09:12→17:39)
[2019-06-18] MEDS: MAGNESIUM HYDROXIDE 2,400 MG/10 ML CUP PO PRN (10:02)
[2019-06-18 11:48] LABS: Glucose,Whole Blood 127 mg/dL (75-99)
--- NOTE | 2019-06-18 11:57 | P.PN ---
Subjective patient with evidence acidosis is admitted for abdominal distention right-sided pleural effusion both of which are secondary to cirrhosis patient was started on Levaquin although there is no significant evidence of any infection patient also is complaining of abdominal pain and there is no evidence of spontaneous bacterial peritonitis patient has pleural effusion on the right side significant as well as significant abdominal distention will order ultrasound-guided paracentesis and thoracentesis. Patient is receiving IV Lasix at this time but hyponatremic multiple consultants including pulmonology, nephrology, gastroenterology or following the patient. Constitutional: Denied any fatigue denied any fever. Cardio vascular: denied any chest pain, palpitations Gastrointestinal denied any nausea vomiting Pulmonary: Denied any shortness of breath cough Neurologic denied any new focal deficits All inpatient medications were reviewed and appropriate changes in these medications as dictated in the interval history and assessment and plan. Objective - Vital Signs Vital signs: Vital Signs Temp 98.3 F 06/18/19 07:38 Pulse 72 06/18/19 07:38 Resp 16 06/18/19 07:38 BP 150/76 06/18/19 07:38 Pulse Ox 97 06/18/19 07:38 Intake & Output 06/17/19 06/18/19 06/18/19 18:59 06:59 18:59 Output Total 775 Balance -775 Weight 91.5 kg 91 kg Output: Urine 775 Other: Voiding Method Urinal # Voids 3 1 - Exam PHYSICAL EXAMINATION: GENERAL: The patient is alert and oriented x3, not in any acute distress. Well developed, well nourished. HEENT: Pupils are round and equally reacting to light. EOMI. No scleral icterus. No conjunctival pallor. Normocephalic, atraumatic. No pharyngeal erythema. No thyromegaly. CARDIOVASCULAR: S1 and S2 present. No murmurs, rubs, or gallops. PULMONARY: Chest is clear to auscultation, no wheezing or crackles. right inferior posterior lung horan absent breath sounds ABDOMEN: distended no significant tenderness does have shifting dullness. MUSCULOSKELETAL: No joint swelling or deformity. EXTREMITIES: No cyanosis, clubbing, or pedal edema. NEUROLOGICAL: Gross neurological examination did not reveal any focal deficits. SKIN: No rashes. - Labs CBC & Chem 7: 06/18/19 05:59 06/16/19 06:22 Labs: Abnormal Lab Results - Last 24 Hours (Table) 06/17/19 06/17/19 06/18/19 Range/Units 17:18 20:17 05:59 WBC 12.3 H (3.8-10.6) k/uL RBC 2.97 L (4.30-5.90) m/uL Hgb 8.7 L (13.0-17.5) gm/dL Hct 27.3 L (39.0-53.0) % RDW 16.9 H (11.5-15.5) % Neutrophils # 9.6 H (1.3-7.7) k/uL POC Glucose (mg/dL) 164 H 187 H (75-99) mg/dL 06/18/19 06/18/19 Range/Units 07:02 11:46 WBC (3.8-10.6) k/uL RBC (4.30-5.90) m/uL Hgb (13.0-17.5) gm/dL Hct (39.0-53.0) % RDW (11.5-15.5) % Neutrophils # (1.3-7.7) k/uL POC Glucose (mg/dL) 107 H 127 H (75-99) mg/dL Microbiology - Last 24 Hours (Table) 06/14/19 11:42 Anaerobic Culture - Final Leg - Left Anaerobic Gm Negative Bacilli Anaerobic Gram Positive Cocci Assessment and Plan Plan: Assessment and Plan Assessment: -Alcoholic liver cirrhosis, CAT scan of the abdomen and pelvis showing hepatocellular disease, patient does have a significant ascites and pleural effusion both of which are from cirrhosis continue Lasix and Aldactone ultrasound guided paracentesis and thoracentesis were ordered. -no evidence of pneumonia -abdominal pain: Secondary to abdominal distention otherwise CAT scan not show any significant abnormality -Acute hyponatremia, multifactorial secondary to cirrhosis patient is receiving Lasix and Aldactone -Left lower back pain and tenderness, mostly most likely musculoskeletal
--- NOTE | 2019-06-18 12:16 | P.PN ---
Subjective 74 years old male with past medical history of atrial fibrillation, coronary artery disease, heart failure, COPD, diabetes mellitus, hypertension, h yperlipidemia, osteoarthritis, sleep apnea on CPAP/BiPAP, chronic kidney disease stage III, pulmonary hypertension, chronic hypoxic respiratory failure on home oxygen 2 L via nasal cannula, status post CABG, diabetic neuropathy. Presents with bilateral lower leg cellulitis and wounds, with culture growing Pseudomonas and MSSA, as patient is been followed by ID team and currently on cefepime, also vascular surgeon Dr. Suazo evaluated the patient and recommended amputation and also other consultants, however the patient and requested a second opinion and for this reason Dr. Maria he has been consulted. [facility]keeper evaluated the patient and evaluated patient at some risk during the procedure. He is hemodynamically stable. A left showing WBC of 10.0 K, hemoglobin 8.1, platelet 280 K, sodium 134, creatinine 1.09, sugar is 167 this morning 06/13/2019 Patient awake and alert, he was still complaining from pain in his leg, patient still getting IV morphine, I explained for him the risks and benefits of this medication including but not limiting to the risk of cardiopulmonary arrest, he agrees to continue with same pain medication for now, I explained to the patient that his goal for pain could not be 0 which can cause a lot of side effects but rather should be level he can tolerate and he agrees again. Also I discussed again with the patient today the plan for him is to wait for a second surgical opinion for his lower extremity infection and disease. 06/14/2019 Patient is seen and evaluated in follow-up today awaiting to undergo debridement of the left lower extremity with Dr. Dover today. Preop is here to pick patient up at this time. Currently no reports of chest pain, shortness of breath, or palpitations. Patient is afebrile. No reports of nausea or vomiting and patient has been nothing by mouth this morning. Patient requesting sedation for the procedure as he states he does not want to feel this. Discussed with the patient that this will all be discussed in preop with the physician and the nurses there. Patient verbalized understanding. Will await report. Patient will be going to 4 S. status post procedure. Patient will continue on IV ant ibiotics form of cefepime along with Flagyl at this time. Infectious disease is following. Will continue to monitor closely. 06/15/2019 Patient is a status post left lower extremity debridement yesterday. Today is postoperative day #1. His lying in bed comfortable he denies chest pain or dyspnea, is fully awake and oriented. His states that his pain is controlled for now. No nausea vomiting and tolerated diet well. WBC still slightly elevated at 12.9 K, hemoglobin stable at 8.8. Creatinine 1.1. Wound culture has been sent 06/16/2019 Patient is comfortable, no acute issue, his pain is controlled. No chest pain or dyspnea. Today is postoperative day #2, vitals are stable. WBC is trending down to 11.835 and creatinine is 1.1. Sugar is controlled I offered today to his daughter's or his family to update him about his situation however he preferred to talk to them by himself and if he changes his mind and wants me to talk to them he will let me know tomorrow 06/17/2019 patient lying comfortable in bed, no new complaint no chest pain or dyspnea, no abdominal complaints is tolerating diet well, no urinary issues. No fever Yesterday his wound culture was showing enterococcus on the top of pseudomonas so cefepime has changed to Zosyn by ID team. I discussed with the patient the recommendation by surgical team for the need for some reevaluation for possible further debridement, he verbalized understanding ,also he wants to follow up also with Dr. Burrell upon discharge.tracey zazueta has mild leukocytosis of 12.0 K, sugar controlled. A still on 3 L oxygenwith saturating 94-100% 06/18/2019 Patient was cleared to be discharged by vascular surgery patient will need outpatient wound care patient was cleared by infectious disease as well and they're recommending Zosyn for couple more weeks Constitutional: Denied any fatigue denied any fever. Cardio vascular: denied any chest pain, palpitations Gastrointestinal denied any nausea vomiting Pulmonary: Denied any shortness of breath cough Neurologic denied any new focal deficits All inpatient medications were reviewed and appropriate changes in these medications as dictated in the interval history and assessment and plan. Objective - Vital Signs Vital signs: Vital Signs Temp 98.3 F 06/18/19 07:38 Pulse 72 06/18/19 07:38 Resp 16 06/18/19 07:38 BP 150/76 06/18/19 07:38 Pulse Ox 97 06/18/19 07:38 Intake & Output 06/17/19 06/18/19 06/18/19 18:59 06:59 18:59 Output Total 775 Balance -775 Weight 91.5 kg 91 kg Output: Urine 775 Other: Voiding Method Urinal # Voids 3 1 - Exam PHYSICAL EXAMINATION: GENERAL: The patient is alert and oriented x3, not in any acute distress. Well developed, well nourished. HEENT: Pupils are round and equally reacting to light. EOMI. No scleral icterus. No conjunctival pallor. Normocephalic, atraumatic. No pharyngeal erythema. No thyromegaly. CARDIOVASCULAR: S1 and S2 present. No murmurs, rubs, or gallops. PULMONARY: Chest is clear to auscultation, no wheezing or crackles. ABDOMEN: Soft, nontender, nondistended, normoactive bowel sounds. No palpable organomegaly. MUSCULOSKELETAL: No joint swelling or deformity. EXTREMITIES: No cyanosis, clubbing, have pedal edema and multiple lower leg ulcers with cellulitis NEUROLOGICAL: Gross neurological examination did not reveal any focal deficits. SKIN: No rashes. - Labs CBC & Chem 7: 06/18/19 05:59 06/16/19 06:22 Labs: Abnormal Lab Results - Last 24 Hours (Table) 06/17/19 06/17/19 06/18/19 Range/Units 17:18 20:17 05:59 WBC 12.3 H (3.8-10.6) k/uL RBC 2.97 L (4.30-5.90) m/uL Hgb 8.7 L (13.0-17.5) gm/dL Hct 27.3 L (39.0-53.0) % RDW 16.9 H (11.5-15.5) % Neutrophils # 9.6 H (1.3-7.7) k/uL POC Glucose (mg/dL) 164 H 187 H (75-99) mg/dL 06/18/19 06/18/19 Range/Units 07:02 11:46 WBC (3.8-10.6) k/uL RBC (4.30-5.90) m/uL Hgb (13.0-17.5) gm/dL Hct (39.0-53.0) % RDW (11.5-15.5) % Neutrophils # (1.3-7.7) k/uL POC Glucose (mg/dL) 107 H 127 H (75-99) mg/dL Microbiology - Last 24 Hours (Table) 06/14/19 11:42 Anaerobic Culture - Final Leg - Left Anaerobic Gm Negative Bacilli Anaerobic Gram Positive Cocci Assessment and Plan Plan: Bilateral lower extremity ulceration and cellulitis patient has Pseudomonas in the wounds and infectious disease is recommending 2 more weeks of IV antibiotics patient is awaiting placement. peripheral vascular disease status post revascularization surgery in the past Chronic kidney disease, stage II-III Change in mental status, possible metabolic encephalopathy, improved currently Chronic atrial fibrillationpresently sinus rhythm and rate controlled History of coronary artery disease Chronic congestive heart failure with unknown ejection fraction Chronic obstructive pulmonary disease, not in acute exacerbation Type 2 diabetes mellitus Diabetic neuropathy Hypertension Hyperlipidemia Osteoarthritis Sleep apnea Pulmonary hypertension Mitral regurgitation Chronic hypoxic respiratory failure and 2 L oxygen via nasal cannula depression
--- NOTE | 2019-06-18 13:03 | PN ---
PROGRESS NOTE DATE OF SERVICE: 06/18/2019 REASON FOR FOLLOWUP: Bilateral lower extremity wound infection and cellulitis. INTERVAL HISTORY: The patient is currently afebrile. The patient . Denies having any chest pain or cough. No abdominal pain or pain to the lower extremities. PHYSICAL EXAMINATION: Blood pressure 150/76 with a pulse 72, temperature 98.3. He is 97% on 2 L nasal cannula. General description is an elderly male lying in the bed in no distress. RESPIRATORY SYSTEM: Unlabored breathing, clear to auscultation anteriorly. HEART: S1, S2. Regular rate and rhythm. ABDOMEN: Soft, no tenderness. Legs are currently dressed up with no obvious drainage on the dressing. LABS: White count . DIAGNOSTIC IMPRESSION AND PLAN: Patient with bilateral lower extremity wound with secondary cellulitis. Culture showing Enterococcus, anaerobic Gram negative . The patient is currently on Zosyn continue for 2 to 3 weeks depending upon clinical response. Wound care to continue per Vascular Surgery. Continue with supportive care. MMODL / IJN: [id number] /
[2019-06-18 16:43] LABS: Glucose,Whole Blood 192 mg/dL (75-99)
[2019-06-18 19:58] LABS: Glucose,Whole Blood 258 mg/dL (75-99)
[2019-06-18] MEDS: MORPHINE SULFATE 4 MG/ML SYRINGE IV PRN (20:05)
[2019-06-18] MEDS: ATORVASTATIN 40 MG TAB PO SCH (20:05)
[2019-06-18] MEDS: INSULIN DETEMIR (LEVEMIR) 100 UNIT/ML SYR SQ SCH (20:06)
[2019-06-18] MEDS: ESCITALOPRAM 10 MG TAB PO SCH (20:06)
[2019-06-18] MEDS: METOLAZONE 2.5 MG TAB PO SCH (20:07)
[2019-06-19] MEDS: PIPERACILLIN-TAZOBACTAM 3.375 GM in SODIUM CHLORIDE 0.9% 100 ML IVPB SCH ×3 (00:21→17:22)
[2019-06-19] MEDS: metroNIDAZOLE 500 MG TAB PO SCH ×3 (00:22→17:23)
[2019-06-19] MEDS: BISACODYL 5 MG TABLET.DR PO PRN (05:12)
[2019-06-19 06:59] LABS: Anisocytosis Slight; Basophils % (A) 0 %; Eosinophils # (A) 0.6 k/uL (0-0.7); Eosinophils % (A) 5 %; HCT 28.3 % (39.0-53.0); Hypochromasia Slight; Lymphocytes # (A) 1.1 k/uL (1.0-4.8); Lymphocytes % (A) 9 %; MCH 29.8 pg (25.0-35.0); MCHC 31.7 g/dL (31.0-37.0); MCV 93.9 fL (80.0-100.0); Monocytes # (A) 0.5 k/uL (0-1.0); Monocytes % (A) 4 %; Neutrophils # (A) 9.6 k/uL (1.3-7.7); Neutrophils % (A) 80 %; Platelet Count 360 k/uL (150-450); Poikilocytosis Slight; RBC 3.02 m/uL (4.30-5.90); RDW 16.7 % (11.5-15.5); WBC 12.1 k/uL (3.8-10.6)
[2019-06-19 07:03] LABS: Glucose,Whole Blood 118 mg/dL (75-99)
[2019-06-19] MEDS: DOCUSATE 100 MG CAP PO SCH (09:18)
[2019-06-19] MEDS: CHOLECALCIFEROL 1,000 UNIT TAB PO SCH (09:18)
[2019-06-19] MEDS: GABAPENTIN 300 MG CAP PO SCH ×3 (09:19→21:43)
[2019-06-19] MEDS: FERROUS SULFATE 325 MG TAB PO SCH (09:19)
[2019-06-19] MEDS: SENNOSIDES 8.6 MG TAB PO SCH (09:19)
[2019-06-19] MEDS: MAGNESIUM OXIDE 400 MG TAB PO SCH ×2 (09:19→21:43)
[2019-06-19] MEDS: PANTOPRAZOLE 40 MG TABLET PO SCH (09:20)
[2019-06-19] MEDS: ASPIRIN 81 MG PO SCH (09:20)
[2019-06-19] MEDS: MULTIVITAMINS, THERA 1 EACH TAB PO SCH (09:20)
[2019-06-19] MEDS: INSULIN ASPART (NovoLOG) 100 UNIT/ML VIAL SQ SCH ×4 (09:20→21:43)
[2019-06-19] MEDS: METOPROLOL TARTRATE 50 MG TAB PO SCH ×2 (09:21→21:42)
[2019-06-19] MEDS: HEPARIN SODIUM,PORCINE 5,000 UNIT/ML 1 ML VIAL SQ SCH ×2 (09:21→21:43)
[2019-06-19] MEDS: FUROSEMIDE 80 MG TAB PO SCH (09:22)
[2019-06-19] MEDS: MORPHINE SULFATE 4 MG/ML SYRINGE IV PRN ×2 (09:56→21:59)
--- NOTE | 2019-06-19 10:25 | P.VSCSTY ---
Greater Saphenous Vein Mapping This is bilateral lower extremity greater saphenous vein mapping. Unilateral left leg. Date of service: 06/13/2019 Vein quality and ultrasound appearance: We see no intraluminal thrombus or wall changes. Vein size groin right :[ ] groin left: 8.3 x 6.5 High thigh right: [ ] high thigh left: 6.0 x 3.9 Mid thigh right: [ ] mid thigh left: 5.1 x 3.7 Above-knee right: [ ] above-knee left: 5.4 x 2.9 Below knee right: [] below- knee left: 3.5 x 3.2 Mid calf right: [] mid calf left: 4.1 x 3.2 Ankle right: [] ankle left: 2.5 x 1.7 Impression: Usable greater saphenous vein left leg throughout. A bit small at the ankle..
[2019-06-19 11:47] LABS: Glucose,Whole Blood 212 mg/dL (75-99)
--- NOTE | 2019-06-19 14:33 | P.PN ---
Subjective Progress Note Date: 06/19/19 Principal diagnosis: This is a pleasant 74 years old male with past medical history of atrial fibrillation, coronary artery disease, heart failure, COPD, diabetes mellitus, hypertension, hyperlipidemia, osteoarthritis, sleep apnea on CPAP/BiPAP, chronic kidney disease stage III, pulmonary hypertension, chronic hypoxic respiratory failure on home oxygen 2 L via nasal cannula, status post CABG, diabetic neuropathy. Presents with bilateral lower leg cellulitis and wounds, with culture growing Pseudomonas and MSSA, as patient is been followed by ID team and currently on cefepime, also vascular surgeon Dr. Suazo evaluated the patient and recommended amputation and also other consultants, however the patient and requested a second opinion and for this reason Dr. Maria he has been consulted. Counter Supervisor evaluated the patient and evaluated patient at some risk during the procedure. He is hemodynamically stable. A left showing WBC of 10.0 K, hemoglobin 8.1, platelet 280 K, sodium 134, creatinine 1.09, sugar is 167 this morning 06/13/2019 Patient awake and alert, he was still complaining from pain in his leg, patient still getting IV morphine, I explained for him the risks and benefits of this medication including but not limiting to the risk of cardiopulmonary arrest, he agrees to continue with same pain medication for now, I explained to the patient that his goal for pain could not be 0 which can cause a lot of side effects but rather should be level he can tolerate and he agrees again. Also I discussed again with the patient today the plan for him is to wait for a second surgical opinion for his lower extremity infection and disease. 06/14/2019 Patient is seen and evaluated in follow-up today awaiting to undergo debridement of the left lower extremity with Dr. Dover today. Preop is here to pick patient up at this time. Currently no reports of chest pain, shortness of breath, or palpitations. Patient is afebrile. No reports of nausea or vomiting and patient has been nothing by mouth this morning. Patient requesting sedation for the procedure as he states he does not want to feel this. Discussed with the patient that this will all be discussed in preop with the physician and the nurses there. Patient verbalized understanding. Will await report. Patient will be going to 4 S. status post procedure. Patient will continue on IV antibiotics form of cefepime along with Flagyl at this time. Infectious disease is following. Will continue to monitor closely. 06/15/2019 Patient is a status post left lower extremity debridement yesterday. Today is postoperative day #1. His lying in bed comfortable he denies chest pain or dyspnea, is fully awake and oriented. His states that his pain is controlled for now. No nausea vomiting and tolerated diet well. WBC still slightly elevated at 12.9 K, hemoglobin stable at 8.8. Creatinine 1.1. Wound culture has been sent 06/16/2019 Patient is comfortable, no acute issue, his pain is controlled. No chest pain or dyspnea. Today is postoperative day #2, vitals are stable. WBC is trending down to 11.835 and creatinine is 1.1. Sugar is controlled I offered today to his daughter's or his family to update him about his situation however he preferred to talk to them by himself and if he changes his mind and wants me to talk to them he will let me know tomorrow 06/17/2019 patient lying comfortable in bed, no new complaint no chest pain or dyspnea, no abdominal complaints is tolerating diet well, no urinary issues. No fever Yesterday his wound culture was showing enterococcus on the top of pseudomonas so cefepime has changed to Zosyn by ID team. I discussed with the patient the recommendation by surgical team for the need for some reevaluation for possible further debridement, he verbalized understanding ,also he wants to follow up also with Dr. Burrell upon disc harge.still has mild leukocytosis of 12.0 K, sugar controlled. A still on 3 L oxygenwith saturating 94-100% 06/18/2019 Patient was cleared to be discharged by vascular surgery patient will need outp atient wound care patient was cleared by infectious disease as well and they're recommending Zosyn for couple more weeks 06/19/2019 Patient is seen and evaluated in follow-up stating he will work with physical therapy today and currently awaiting authorization to [facility] for continued IV antibiotic therapy along with PT/OT. Cardiothoracic surgery following an recommending close outpatient follow-up. Patient remains on IV Zosyn and will continue at this time. Currently no reports of chest pain, shortness of breath, or palpitations. Patient is afebrile. No reports of nausea or vomiting and patient is tolerating diet. Patient did receive midline for continued IV antibiotic therapy in the outpatient setting. Objective - Vital Signs Vital signs: Vital Signs Temp 97.6 F 06/19/19 07:00 Pulse 65 06/19/19 07:00 Resp 16 06/19/19 07:00 BP 104/54 06/19/19 07:00 Pulse Ox 90 L 06/19/19 07:00 Intake & Output 06/18/19 06/19/19 06/19/19 18:59 06:59 18:59 Intake Total 296 Output Total 901 Balance -901 296 Weight 84.8 kg Intake: Oral 296 Output: Urine 901 Other: Voiding Method Urinal # Voids 3 300 # Bowel Movements 1 1 - Exam GENERAL: The patient is alert and oriented x3, not in any acute distress. Well developed, well nourished. HEENT: Pupils are round and equally reacting to light. EOMI. No scleral icterus. No conjunctival pallor. Normocephalic, atraumatic. No pharyngeal erythema. No thyromegaly. CARDIOVASCULAR: S1 and S2 present. No murmurs, rubs, or gallops. PULMONARY: Diminished breath sounds at the bases otherwise Chest is clear to auscultation, no wheezing or crackles. ABDOMEN: Soft, nontender, nondistended, normoactive bowel sounds. No palpable organomegaly. MUSCULOSKELETAL: No joint swelling or deformity. EXTREMITIES: No cyanosis, clubbing, have pedal edema and multiple lower leg ulcers with cellulitis. Surgical dressing removed and reapplied today and is dry and intact. NEUROLOGICAL: Gross neurological examination did not reveal any focal deficits. SKIN: No rashes. - Labs CBC & Chem 7: 06/19/19 06:36 06/16/19 06:22 Labs: Abnormal Lab Results - Last 24 Hours (Table) 06/18/19 06/18/19 06/19/19 Range/Units 16:40 19:57 06:36 WBC 12.1 H (3.8-10.6) k/uL RBC 3.02 L (4.30-5.90) m/uL Hgb 9.0 L (13.0-17.5) gm/dL Hct 28.3 L (39.0-53.0) % RDW 16.7 H (11.5-15.5) % Neutrophils # 9.6 H (1.3-7.7) k/uL POC Glucose (mg/dL) 192 H 258 H (75-99) mg/dL 06/19/19 06/19/19 Range/Units 07:02 11:45 WBC (3.8-10.6) k/uL RBC (4.30-5.90) m/uL Hgb (13.0-17.5) gm/dL Hct (39.0-53.0) % RDW (11.5-15.5) % Neutrophils # (1.3-7.7) k/uL POC Glucose (mg/dL) 118 H 212 H (75-99) mg/dL Assessment and Plan Assessment: Bilateral lower extremity ulceration and cellulitis with Pseudomonas from the wound cultures. Infectious disease is following. Continue with IV Zosyn at this time. peripheral vascular disease status post revascularization surgery in the past Hyponatremia, mild Chronic kidney disease, stage II-III Change in mental status, possible metabolic encephalopathy, improved currently Chronic atrial fibrillation History of coronary artery disease Chronic congestive heart failure with unknown ejection fraction Chronic obstructive pulmonary disease, not in acute exacerbation Type 2 diabetes mellitus Diabetic neuropathy Hypertension Hyperlipidemia Osteoarthritis Sleep apnea Pulmonary hypertension Mitral regurgitation Chronic hypoxic respiratory failure and 2 L oxygen via nasal cannula History of depression Plan: Patient agreeable to working with physical therapy today and awaiting authorization from [facility] for continued IV antibiotic therapy in the outpatient setting along with PT/OT therapy. Vascular surgery following an patient will need follow-up in the outpatient setting. Social work following. Will continue to monitor closely. Possible discharge in 24-48 hours.
--- NOTE | 2019-06-19 14:39 | P.PN ---
Subjective Progress Note Date: 06/19/19 Patient seen and examined at the bedside with Dr. Burrell. The patient reports pain has improved to the left lower extremity. However still very painful to touch with dressing changes. No acute changes through the night. Patient has been afebrile, continues with IV antibiotic therapy. Bilateral lower e xtremities with clean dry and intact dressings. Patient has been refusing to get out of bed due to pain for toileting. Objective - Vital Signs Vital signs: Vital Signs Temp 97.6 F 06/19/19 07:00 Pulse 65 06/19/19 07:00 Resp 16 06/19/19 07:00 BP 104/54 06/19/19 07:00 Pulse Ox 90 L 06/19/19 07:00 Intake & Output 06/18/19 06/19/19 06/19/19 18:59 06:59 18:59 Intake Total 296 Output Total 901 Balance -901 296 Weight 84.8 kg Intake: Oral 296 Output: Urine 901 Other: Voiding Method Urinal # Voids 3 300 # Bowel Movements 1 1 - Exam General appearance: The patient is alert, oriented, in no acute distress. HET: Head is normocephalic and atraumatic. Neck: Supple without lymphadenopathy. Trachea midline. Heart: S1 S2. Regular rate and rhythm. Lungs: No crackles or wheezes are heard. Extremities: Left lower extremity dressing changed, small to scant amount of purulent drainage on dorsal side foot, debridement to tendon, scant amount of serosanguineous drainage from left medial ankle debridement site to tendon, multiple anterior velasquez to subcutaeous tissue, Adaptic and sterile 4x4 gauze applied to all sites, with Kerlix dressing. Right lower extremity dressing changed with small amount of serosanguineous drainage. Again Adaptic and sterile gauze applied with Kerlix dressing. Neurological: No focal deficits. Strength and sensation are grossly intact. - Labs CBC & Chem 7: 06/19/19 06:36 06/16/19 06:22 Labs: Abnormal Lab Results - Last 24 Hours (Table) 06/18/19 06/18/19 06/18/19 Range/Units 11:46 16:40 19:57 WBC (3.8-10.6) k/uL RBC (4.30-5.90) m/uL Hgb (13.0-17.5) gm/dL Hct (39.0-53.0) % RDW (11.5-15.5) % Neutrophils # (1.3-7.7) k/uL POC Glucose (mg/dL) 127 H 192 H 258 H (75-99) mg/dL 06/19/19 06/19/19 Range/Units 06:36 07:02 WBC 12.1 H (3.8-10.6) k/uL RBC 3.02 L (4.30-5.90) m/uL Hgb 9.0 L (13.0-17.5) gm/dL Hct 28.3 L (39.0-53.0) % RDW 16.7 H (11.5-15.5) % Neutrophils # 9.6 H (1.3-7.7) k/uL POC Glucose (mg/dL) 118 H (75-99) mg/dL Assessment and Plan Assessment: 1. Chronic peripheral arterial disease status post left lower extremity balloon angioplasty and stenting 2. Bilateral lower extremity nonhealing wounds with dry gangrene, status post debridement 3. Bilateral lower leg cellulitis 4. Diabetes mellitus 5. Hypertension 6. Hyperlipidemia 7. Coronary artery disease Plan: Continue with antibiotic therapy per infectious disease. Continue aggressive wound care. Patient to follow-up in the wound care clinic weekly. May require further debridement in the near future, can be done outpatient. May be discharged when medically cleared. Follow-up with Dr. Burrell one week after discharge. The above dictated assessment and findings were discussed with Dr. Burrell. The impression and plan of care have been directed as dictated.
[2019-06-19 16:48] LABS: Glucose,Whole Blood 144 mg/dL (75-99)
--- NOTE | 2019-06-19 17:14 | PN ---
PROGRESS NOTE DATE OF SERVICE: 06/19/2019 REASON FOR FOLLOWUP: Bilateral lower extremity cellulitis. INTERVAL HISTORY: The patient is currently afebrile, has been breathing comfortably. Pain is currently controlled. Denies having any chest pain or cough. No abdominal pain or worsening pain to the legs. PHYSICAL EXAMINATION: Blood pressure 135/71 with a pulse of 55, temperature is 98.3, he is 100% on 3 liters nasal cannula. General description is an elderly male lying in bed in no distress. RESPIRATORY SYSTEM: Unlabored breathing. Clear to auscultation anteriorly. HEART: S1, S2. Regular rate and rhythm. ABDOMEN: Soft. No tenderness. Legs are currently wrapped up with no obvious drainage on the dressing. LABS: White count 12,000. DIAGNOSTIC IMPRESSION AND PLAN: Patient with bilateral lower extremity chronic wounds with secondary cellulitis in this patient who has significant peripheral arterial disease. Culture at this time is showing Enterococcus, Pseudomonas, and anaerobes. The patient is currently on zosyn, to continue for two weeks. Local wound care per Vascular Surgery and Wound care. Continue with supportive care. MMODL / IJN: [id number] /
[2019-06-19 21:02] LABS: Glucose,Whole Blood 183 mg/dL (75-99)
[2019-06-19] MEDS ORDERED: FUROSEMIDE 40 MG TAB PO SCH (21:38)
[2019-06-19] MEDS: INSULIN DETEMIR (LEVEMIR) 100 UNIT/ML SYR SQ SCH (21:42)
[2019-06-19] MEDS: ATORVASTATIN 40 MG TAB PO SCH (21:42)
[2019-06-19] MEDS: ESCITALOPRAM 10 MG TAB PO SCH (21:43)
[2019-06-19] MEDS ORDERED: FUROSEMIDE 40 MG TAB PO ONE (22:00)
[2019-06-20] MEDS: metroNIDAZOLE 500 MG TAB PO SCH ×2 (00:47→08:26)
[2019-06-20] MEDS: PIPERACILLIN-TAZOBACTAM 3.375 GM in SODIUM CHLORIDE 0.9% 100 ML IVPB SCH ×2 (00:47→10:42)
[2019-06-20] MEDS: FUROSEMIDE 80 MG TAB PO SCH (04:07)
[2019-06-20 07:12] LABS: Glucose,Whole Blood 72 mg/dL (75-99)
[2019-06-20] MEDS: INSULIN ASPART (NovoLOG) 100 UNIT/ML VIAL SQ SCH ×2 (07:13→12:14)
[2019-06-20 07:58] VITALS: BP 118/67; PULSE 60; RESP 20; TEMP 98.2
[2019-06-20] MEDS: MAGNESIUM OXIDE 400 MG TAB PO SCH (08:24)
[2019-06-20] MEDS: PANTOPRAZOLE 40 MG TABLET PO SCH (08:25)
[2019-06-20] MEDS: ASPIRIN 81 MG PO SCH (08:25)
[2019-06-20] MEDS: DOCUSATE 100 MG CAP PO SCH (08:25)
[2019-06-20] MEDS: CHOLECALCIFEROL 1,000 UNIT TAB PO SCH (08:25)
[2019-06-20] MEDS: GABAPENTIN 300 MG CAP PO SCH (08:26)
[2019-06-20] MEDS: METOPROLOL TARTRATE 50 MG TAB PO SCH (08:26)
[2019-06-20] MEDS: FERROUS SULFATE 325 MG TAB PO SCH (08:27)
[2019-06-20] MEDS: HEPARIN SODIUM,PORCINE 5,000 UNIT/ML 1 ML VIAL SQ SCH (08:27)
[2019-06-20] MEDS ORDERED: SODIUM HYPOCHLORITE 0.25% 480 ML BOT MISCELLANE SCH (08:45)
--- NOTE | 2019-06-20 08:49 | P.DS ---
Providers Date of admission: 06/07/19 17:03 Expected date of discharge: 06/20/19 Attending physician: Reshma Merrill Consults: 06/07/19 17:02 Consult Physician Urgent Consulting Provider: Zachariah Galindo Consult Reason/Comments: Vascular disease Do you want consulting provider notified?: Yes Consult Physician Urgent Consulting Provider: Nicolas Talavera Consult Reason/Comments: cellulitis Do you want consulting provider notified?: Yes 06/07/19 20:51 Consult Physician Routine Consulting Provider: Carol Rodrigues Consult Reason/Comments: wound infection Do you want consulting provider notified?: Yes 06/08/19 13:28 Consult Physician Routine Consulting Provider: Zeferino Suazo Consult Reason/Comments: wound debridement Do you want consulting provider notified?: Yes 06/10/19 16:13 Consult Physician Routine Consulting Provider: Adonis Austin Consult Reason/Comments: pre op clearance Do you want consulting provider notified?: Yes 06/11/19 14:35 Consult Physician Urgent Consulting Provider: Greg Heath Consult Reason/Comments: second opinion for vascular disease Do you want consulting provider notified?: Already Contacted Primary care physician: [facility] Course: Final diagnosis Bilateral lower extremity ulceration and cellulitis with Pseudomonas from the wound cultures. peripheral vascular disease status post revascularization surgery in the past Hyponatremia, mild Chronic kidney disease, stage II-III Change in mental status, possible metabolic encephalopathy, improved currently Chronic atrial fibrillation History of coronary artery disease Chronic congestive heart failure with unknown ejection fraction Chronic obstructive pulmonary disease, not in acute exacerbation Type 2 diabetes mellitus Diabetic neuropathy Hypertension Hyperlipidemia Osteoarthritis Sleep apnea Pulmonary hypertension Mitral regurgitation Chronic hypoxic respiratory failure and 2 L oxygen via nasal cannula History of depression Discharge disposition Patient is being discharged in a stable condition with guarded prognosis to [facility] for continued PT/OT therapy. Patient will also be continue with IV antibiotic therapy in the form of Zosyn for the next 2 weeks and will need to follow-up with vascular surgery along with infectious disease. Total time taken is 35 minutes. History of present illness This is a 74-year-old male who was recently admitted with bilateral lower leg cellulitis and wounds with cultures growing Pseudomonas and MSSA and was being closely monitored. Patient was seen and evaluated by Dr. Suazo recommending amputation and family and patient requesting second opinion. Patient was seen and evaluated by Dr. Shrestha and underwent debridement of the left lower extremity. Patient will continue with local wound care along with IV antibiotic therapy in the form of Zosyn for the next 2 weeks and will need to follow-up with vascular surgery Dr. Burrell along with infectious disease. Currently no rep orts of chest pain, shortness of breath, or palpitations. Patient is afebrile. No reports of nausea or vomiting and patient is tolerating diet. Patient is ready for discharge today to [facility] On exam vital signs are stable. Temp is 98.2F, pulse is 60, respirations are 20, blood pressure is 1/67, oxygen saturation is 95% on 3 L via nasal cannula. Patient is O2 dependent at 2-3 L normally. Cardio S1, S2 are muffled. Respiratory system shows diminished breath sounds at the bases with no wheezing or rhonchi noted. Abdomen is soft, obese, nontender. Nervous system shows mild diffuse weakness. Please refer to medication reconciliation sheet for a list of medications. Patient Condition at Discharge: Stable Plan - Discharge Summary Discharge Rx Participant: No New Discharge Prescriptions: New Piperacillin-Tazobactam [Zosyn] 3.375 gm IVPB Q8H #42 vial Magnesium Hydroxide [Milk of Magnesia Concentrate] 2,400 mg PO ONCE PRN ml PRN Reason: Constipation Gabapentin [Neurontin] 300 mg PO BID #4 cap Pantoprazole [Protonix] 40 mg PO AC-BRKFST tablet.dr Tom Ferrous Sulfate [Iron (65 MG Elemental)] 325 mg PO DAILY Cholecalciferol [Vitamin D3 (25 Mcg = 1000 Iu)] 2,000 unit PO DAILY Multivitamins, Thera [Multivitamin (formulary)] 1 tab PO DAILY Aspirin 81 mg PO DAILY Metoprolol Tartrate [Lopressor] 50 mg PO BID Atorvastatin [Lipitor] 40 mg PO HS tab Insulin Detemir (Levemir) [Levemir] 12 unit SQ HS syr Magnesium Oxide [Mag-Ox] 400 mg PO BID 30 Days #60 tab INSULIN LISPRO (humaLOG) [humaLOG] See Protocol SQ AC-TID Darbepoetin Ruddy [Aranesp] 40 mcg IJ TU Acetaminophen [Tylenol] 650 mg PO TID Escitalopram [Lexapro] 10 mg PO HS Albuterol Inhaler [Ventolin Hfa Inhaler] 2 puff INHALATION RT-Q6H PRN PRN Reason: Shortness Of Breath Or Wheezing Clopidogrel Bisulfate [Plavix] 75 mg PO DAILY Collagenase [Santyl] 1 applic TOPICAL HS Docusate [Colace] 100 mg PO DAILY Furosemide [Lasix] 80 mg PO BID Heparin Sodium,Porcine [Heparin Sodium] 5,000 unit SQ Q12HR Metolazone [Zaroxolyn] 2.5 mg PO TUFR Oxymetazoline 0.05% Nasl [place] [Afrin 0.05% Nasal [place]] 1 spray EA NOSTRIL Q4HR PRN PRN Reason: Dry Nasal Passages Sennosides [Senna] 8.6 mg PO DAILY Sodium Chloride [Saline Nasal [place]] 1 spray EA NOSTRIL Q2HR PRN PRN Reason: Dry Nasal Passages Glycerin Adult Suppository 1 supp RECTAL Q24H PRN PRN Reason: Constipation Sodium Chloride [Saline Nasal [place]] 1 spray EA NOSTRIL QID PRN PRN Reason: DRY NOSE Lactobacillus Acidophilus [Acidophilus] 1 tab PO DAILY Acetaminophen [Tylenol] 650 mg PO Q4H PRN PRN Reason: Pain Zinc Oxide Ointment 1 applic TOPICAL TID Glucagon Emergency Kit 1 mg IM ONCE PRN PRN Reason: Blood Pressure - Low Bisacodyl 5 mg PO Q24H PRN PRN Reason: Constipation Hydrocodone/Acetaminophen [[place] 5-325] 1 tab PO Q8HR #4 tab traMADol HCl [Ultram] 50 mg PO Q6H PRN #4 tab PRN Reason: Pain Discontinued Gabapentin [Neurontin] 100 mg PO BID Discharge Medication List Cholecalciferol [Vitamin D3 (25 Mcg = 1000 Iu)] 2,000 unit PO DAILY 01/04/16 [History] Ferrous Sulfate [Iron (65 MG Elemental)] 325 mg PO DAILY 01/04/16 [History] Multivitamins, Thera [Multivitamin (formulary)] 1 tab PO DAILY 01/09/17 [History] Aspirin 81 mg PO DAILY 11/29/18 [History] Metoprolol Tartrate [Lopressor] 50 mg PO BID 11/29/18 [History] Atorvastatin [Lipitor] 40 mg PO HS tab 12/13/18 [Rx] Insulin Detemir (Levemir) [Levemir] 12 unit SQ HS syr 01/18/19 [Rx] Magnesium Oxide [Mag-Ox] 400 mg PO BID 30 Days #60 tab 01/23/19 [Rx] INSULIN LISPRO (humaLOG) [humaLOG] See Protocol SQ AC-TID 04/17/19 [History] Acetaminophen [Tylenol] 650 mg PO TID 05/24/19 [History] Albuterol Inhaler [Ventolin Hfa Inhaler] 2 puff INHALATION RT-Q6H PRN 05/24/19 [History] Clopidogrel Bisulfate [Plavix] 75 mg PO DAILY 05/24/19 [History] Collagenase [Santyl] 1 applic TOPICAL HS 05/24/19 [History] Darbepoetin Ruddy [Aranesp] 40 mcg IJ TU 05/24/19 [History] Docusate [Colace] 100 mg PO DAILY 05/24/19 [History] Escitalopram [Lexapro] 10 mg PO HS 05/24/19 [History] Furosemide [Lasix] 80 mg PO BID 05/24/19 [History] Heparin Sodium,Porcine [Heparin Sodium] 5,000 unit SQ Q12HR 05/24/19 [History] Metolazone [Zaroxolyn] 2.5 mg PO TUFR 05/24/19 [History] Oxymetazoline 0.05% Nasl [place] [Afrin 0.05% Nasal [place]] 1 spray EA NOSTRIL Q4HR PRN 05/24/19 [History] Sennosides [Senna] 8.6 mg PO DAILY 05/24/19 [History] Sodium Chloride [Saline Nasal [place]] 1 spray EA NOSTRIL Q2HR PRN 05/24/19 [History] Acetaminophen [Tylenol] 650 mg PO Q4H PRN 06/07/19 [History] Bisacodyl 5 mg PO Q24H PRN 06/07/19 [History] Glucagon Emergency Kit 1 mg IM ONCE PRN 06/07/19 [History] Glycerin Adult Suppository 1 supp RECTAL Q24H PRN 06/07/19 [History] Lactobacillus Acidophilus [Acidophilus] 1 tab PO DAILY 06/07/19 [History] Sodium Chloride [Saline Nasal [place]] 1 spray EA NOSTRIL QID PRN 06/07/19 [History] Zinc Oxide Ointment 1 applic TOPICAL TID 06/07/19 [History] Piperacillin-Tazobactam [Zosyn] 3.375 gm IVPB Q8H #42 vial 06/18/19 [Rx] Gabapentin [Neurontin] 300 mg PO BID #4 cap 06/19/19 [Rx] Hydrocodone/Acetaminophen [[place] 5-325] 1 tab PO Q8HR #4 tab 06/19/19 [Rx] Magnesium Hydroxide [Milk of Magnesia Concentrate] 2,400 mg PO ONCE PRN ml 06/19/19 [Rx] Pantoprazole [Protonix] 40 mg PO AC-BRKFST tablet. 06/19/19 [Rx] traMADol HCl [Ultram] 50 mg PO Q6H PRN #4 tab 06/19/19 [Rx] Follow up Appointment(s)/Referral(s): Jordan Patel III, MD [Primary Care Provider] - 06/20/19 11:30 am Cherelle Burrell DO [STAFF PHYSICIAN] - 07/17/19 9:30 am ([facility] office) Ambulatory/Diagnostic Orders: Basic Metabolic Panel [LAB.AMB] Time Frame: 3 Days, Location: None Selected Complete Blood Count w/diff [LAB.AMB] Time Frame: 3 Days, Location: None S elected Activity/Diet/Wound Care/Special Instructions: Patient is going to [facility] Activity as tolerated Continue with PT/OT therapy Continue with wound care: Cleanse with normal saline of the left lower extremity and apply wet-to-dry dressing at the dorsal foot and medial ankle wound and then Adaptic to all other wounds, 4 x 4, and Kerlix Continue with IV antibiotic therapy Follow-up appointment with Dr. Burrell Follow-up with infectious disease Repeat labs in 2-3 days Continue with consistent carb diet Continue to monitor blood sugars before meals at bedtime and treat accordingly with sliding scale Discharge Disposition: TRANSFER TO SNF/ECF
[2019-06-20] MEDS: MAGNESIUM HYDROXIDE 2,400 MG/10 ML CUP PO PRN (08:54)
[2019-06-20] MEDS: MORPHINE SULFATE 4 MG/ML SYRINGE IV PRN (09:57)
[2019-06-20] MEDS: HYDROcodone/APAP 5-325MG 1 EACH TAB PO PRN (10:35)
[2019-06-20] MEDS: SENNOSIDES 8.6 MG TAB PO SCH (10:42)
[2019-06-20] MEDS: MULTIVITAMINS, THERA 1 EACH TAB PO SCH (10:42)
--- OUTSIDE RECORDS SUMMARY | 2019-06-20 11:17 | XMS REPORT | Referral Summary ---
:1945 Author Name Huong Cosme Address [address] [facility] [address] Care Team Providers Name Role Phone Sadaf, Nicolas Unavailable Unavailable Josefina Dumont Unavailable Unavailable Eileen Mejia Unavailable Unavailable Naldo Fofana Unavailable Unavailable Eileen Jones Unavailable Unavailable Allergies, Adverse Reactions and Alerts Substance Reaction Reaction Severity Status No Known Allergies Unspecified Active Medications Medication Directions Start Date Status acetaminophen 325 mg tablet tablet oral Unspecified acti ve Maalox Maximum Strength 400 mg-400 suspension oral Unspecified active mg-40 mg/5 mL oral suspension amiodarone 100 mg tablet tablet oral Unspecified active gabapentin 100 mg capsule capsule oral Unspecified active Acidophilus Probiotic 100 million capsule oral Unspecified active cell-10 mg capsule atorvastatin 40 mg tablet tablet oral Unspecified active hydralazine 25 mg tablet tablet oral Unspecified active tamsulosin 0.4 mg capsule capsule,extended release 24hr Unspecif ied active oral albuterol sulfate HFA 90 HFA aerosol inhaler inhalation Unspecif ied active mcg/actuation aerosol inhaler metoprolol succinate ER 50 mg tablet extended release 24 hr Unsp ecified active tablet,extended release 24 hr oral calcium carbonate 333 mg-magnesium tablet oral Unspecified active oxide 133 mg-zinc gluc 5 mg tablet Calcium Magnesium 500 mg tablet oral Unspecified active calcium-250 mg tablet Levemir U-100 Insulin 100 unit/mL solution subcutaneous Unspecif ied active subcutaneous solution Feosol 325 mg (65 mg iron) tablet tablet oral Unspecified active Senokot 8.6 mg tablet tablet oral Unspecified active furosemide 80 mg tablet tablet oral Unspecified active Adults Multivitamin 18 mg iron-400 tablet oral Unspecified active mcg-25 mcg tablet Aspir-81 81 mg tablet,delayed tablet,delayed release (DR/EC) Uns pecified active release oral clopidogrel 75 mg tablet tablet oral Unspecified active spironolactone 25 mg tablet tablet oral Unspecified acti ve pantoprazole 40 mg tablet,delayed tablet,delayed release (DR/EC) Unspecified active release oral escitalopram 10 mg tablet tablet oral Unspecified active Vitamin D3 1,000 unit tablet tablet oral Unspecified act enmanuel Aranesp 40 mcg/mL (in polysorbate) solution injection subq on ev marcel 03/29/2019 active Injection Monday Humalog Mix 50-50 (U-100) Insulin suspension subcutaneous per 03/29/2019 active 100 unit/mL subcutaneous sliding scale BID suspension Problems Problem Onset Date Status 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 03/29/2019 active 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 03/29/2019 active failure and stage 1 through stage 4 chronic kidney disease, or unspecified chronic kidney disease J44.9 - Chronic obstructive pulmonary disease, unspecified active L97.522 - Non-pressure chronic ulcer of other part of left f oot 03/29/2019 active with fat layer exposed L97.322 - 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 layer 03/29/2019 active exposed L97.822 - Non-pressure chronic ulcer of other part of left l ower 03/29/2019 active leg with fat layer exposed I87.2 - Venous insufficiency (chronic) (peripheral) 03/29/2019 active Encounters Date Location 03/29/2019 12:00:00 AM [facility] Encounter Diagnosis: E11.42 - Type 2 diabetes mellitus with diabetic polyneuropathy Encounter Diagnosis: I13.0 - Hypertensive heart and chronic kidney disease with heart failure and stage 1 through stage 4 chronic kidney disease, or unspecified chronic kidney disease Encounter Diagnosis: J44.9 - Chronic obstructive pulmonary disease, unspecified Encounter Diagnosis: L97.522 - Non-pressure chronic ulcer of other part of left foot with fat layer exposed Encounter Diagnosis: L97.322 - 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 layer exposed Encounter Diagnosis: L97.822 - Non-pressure chronic ulcer of other part of left lower leg with fat layer exposed Encounter Diagnosis: I87.2 - Venous insufficiency (chronic) (peripheral) Vital signs Vital Value Unit Height 66 [in_i] Weight Measured 207 [lb_av] BP Systolic 133 mm[Hg] BP Diastolic 62 mm[Hg] BMI (Body Mass Index) 33.4 Unspecified Weight Measured 94.09 kg Body Temperature 97.5 [degF] Body Temperature 36.39 Yasmin O2 % BldC Oximetry Unspecified Unspecified Heart Rate 69 /min Respiratory Rate 20 /min Inhaled O2 concentration Unspecified Unspecified Immunizations Name Date Status Immunization information has not been included or does not e xist. Procedures Procedure Date Status Procedure information has not been included or does not exis t. Social History Smoking Status: Former smoker. Notes: pipe Stopped: 03/29/2007 Goals Description Goal: Patient will not experience any in jury related to falls Goal: Patient/caregiver will verbalize u nderstanding of skin care regimen Goal: Patient/caregiver will verbalize/d emonstrate measure taken to improve self care Goal: Patient/caregiver agrees to and ve rbalizes understanding of need to obtain nutritional consultation Goal: Patient/caregiver verbalizes under standing of need to maintain therapeutic glucose control per primary care physici an Goal: Patient/caregiver will maintain th erapeutic glucose control Goal: Patient will verbalize adequate pa in control and receive pain control interventions during procedures as neede d Goal: Patient/caregiver will verbalize a dequate pain control between visits Goal: Patient/caregiver will verbalize c omfort level met Goal: Invasive arterial studies complete d as ordered Goal: Non-invasive arterial studies are completed as ordered Goal: Patient/caregiver will verbalize u nderstanding of disease process and disease management Goal: Revascularization procedures compl eted as ordered Goal: Patient/caregiver will verbalize u nderstanding of skin care regimen Goal: Ulcer/skin breakdown will have a v olume reduction of 30% by week 4 Goal: Ulcer/skin breakdown will have a v olume reduction of 50% by week 8 Goal: Ulcer/skin breakdown will have a v olume reduction of 80% by week 12 Goal: Ulcer/skin breakdown will heal wit hin 14 weeks Health Concerns Description Problem: Abuse / Safety / Falls / Self C are Management Problem: Nutrition Problem: Pain, Acute or Chronic Problem: Tissue Oxygenation Problem: Wound/Skin Impairment Functional Status Description Date Ambulatory Status - Wheel Chair (Active) 04/26/2019 Assessment and Plan Description Laboratory: Hb A1c -Method not specified . Laboratory: Prealbumin. Services and Therapies: Dietitian. Services and Therapies: Segmental Pressu res with Toe. Services and Therapies: Toe pressures (T BI). Plan of Treatment: Patient referred to [facility] Plan of Treatment: Nutrition-profile lab s obtained as ordered Plan of Treatment: Obtain HgA1c Plan of Treatment: Administer pain contr ol measures as ordered Plan of Treatment: Invasive vascular agapito dies Plan of Treatment: Non-invasive vascular studies Plan of Treatment: Revascularization pro cedures Plan of Treatment: Skin care regimen ini tiated Plan of Treatment: Topical wound managem ent initiated Assessment: 03/29/2019 patient has venou s insufficiency wounds since November of the left lower leg and has been treated as a n outpatient with Silvadene and Tubigrip. Also sustained's injury to the left foot in his hospital walking around without shoes. This resulted abrasions that hav e not healed and ulcerated.04/05/2009 after review of patient's arterial assessment appears patient has significant peripheral arterial disease be referred to the clin ic of Dr. Suazo for assessment and treatment of the peripheral arterial dis ease venous insufficiency as well as these wounds that appear to be caused from bot h etiologies. 04/08/2019 CONSULT TO DAY FOR POSSIBLE INTERVENTION RELATED TO PERIPHE RAL VASCULAR DISEASE. WILL SCHEDULE FOR ANGIOGRAM 04/22/2019. AND DISCUSS RESULT S AND PLAN AT THAT TIME04/26/2019 the patient was seen at bedside is waiting for defin itive care to try to reestablish blood flow to the lower extremities continue with c urrent care treatment was done as to concern for arterial supply Results Name Specimen Value Unit Ref. Range Date Result information has not been included or does not exist. Medical Equipment Implanted Area JANETT Assigning Author oscar Medical Equipment information has not been included or does not exist. Reason for Referral transition of care
[2019-06-20 11:45] LABS: Glucose,Whole Blood 150 mg/dL (75-99)
--- NOTE | 2019-06-20 13:55 | PN ---
PROGRESS NOTE DATE OF SERVICE: 06/20/2019 REASON FOR FOLLOWUP: Bilateral lower extremity wound and cellulitis. INTERVAL HISTORY: The patient is currently afebrile, has been breathing comfortably. Pain to the leg is currently controlled. No vomiting. No diarrhea. The nurse changed the dressing this morning; did show overall improvement. Wound looks beefy red; the wound on the foot did have some slough tissue. PHYSICAL EXAMINATION: Blood pressure is 118/67 with a pulse of 68, temperature 98.2, he is 95% on 3 L nasal cannula. General description is an elderly male, lying in bed in no distress. RESPIRATORY SYSTEM: Unlabored breathing, clear to auscultation anteriorly. HEART: S1, S2. Regular rate and rhythm. ABDOMEN: Soft, no tenderness. LABS: No new labs have been obtained today. Wound culture with anaerobic gram-positive and negative bacilli along with Pseudomonas, Enterococcus faecalis. DIAGNOSTIC IMPRESSION AND PLAN: Patient with bilateral lower extremity wound with secondary cellulitis, culture with Pseudomonas, Enterococcus anaerobes. Cover with Zosyn, continue for 2 weeks. Local wound care to continue per Vascular Surgery. Continue supportive care. MMODL / IJN: [id number] /
== END 2019-06-20 13:12 | DRG 264 ==
LOC: EC 13:53 → 6NMEDSUR 17:03 → 4SSUR 06-14 10:40
PROVIDERS: ADMIT Hospitalist; ATTEND Hospitalist
PROC: B54DZZZ Ultrasonography of Bilateral Lower Extremity Veins (ICD-10-PCS; 2019-06-13)
PROC: 0LBT0ZZ Excision of Left Ankle Tendon, Open Approach (ICD-10-PCS; principal; 2019-06-14 10:00)
PROC: 0JBR0ZZ Excision of Left Foot Subcutaneous Tissue and Fascia, Open Approach (ICD-10-PCS; principal; 2019-06-14 10:00)
PROC: 0JBP0ZZ Excision of Left Lower Leg Subcutaneous Tissue and Fascia, Open Approach (ICD-10-PCS; principal; 2019-06-14 10:00)
PROC: 05HY33Z Insertion of Infusion Device into Upper Vein, Percutaneous Approach (ICD-10-PCS; 2019-06-18)
PROC: 05HB33Z Insertion of Infusion Device into Right Basilic Vein, Percutaneous Approach (ICD-10-PCS; 2019-06-20)
DX: E11.52 Type 2 diabetes mellitus with diabetic peripheral angiopathy with gangrene (principal); G93.41 Metabolic encephalopathy; E87.1 Hypo-osmolality and hyponatremia; E87.2 Acidosis; I13.0 Hypertensive heart and chronic kidney disease with heart failure and stage 1 through stage 4 chronic kidney disease, or unspecified chronic kidney disease; I48.20 Chronic atrial fibrillation, unspecified; I50.32 Chronic diastolic (congestive) heart failure; J96.11 Chronic respiratory failure with hypoxia; L03.115 Cellulitis of right lower limb; L03.116 Cellulitis of left lower limb; L97.322 Non-pressure chronic ulcer of left ankle with fat layer exposed; L97.822 Non-pressure chronic ulcer of other part of left lower leg with fat layer exposed; B95.61 Methicillin susceptible Staphylococcus aureus infection as the cause of diseases classified elsewhere; B96.5 Pseudomonas (aeruginosa) (mallei) (pseudomallei) as the cause of diseases classified elsewhere; D63.8 Anemia in other chronic diseases classified elsewhere; E11.22 Type 2 diabetes mellitus with diabetic chronic kidney disease; E11.42 Type 2 diabetes mellitus with diabetic polyneuropathy; E11.621 Type 2 diabetes mellitus with foot ulcer; E66.9 Obesity, unspecified; E78.5 Hyperlipidemia, unspecified; Z68.31 Body mass index [BMI] 31.0-31.9, adult; F32.9 Major depressive disorder, single episode, unspecified; G47.30 Sleep apnea, unspecified; H54.7 Unspecified visual loss; I08.3 Combined rheumatic disorders of mitral, aortic and tricuspid valves; I25.10 Atherosclerotic heart disease of native coronary artery without angina pectoris; I27.20 Pulmonary hypertension, unspecified; J44.9 Chronic obstructive pulmonary disease, unspecified; K70.30 Alcoholic cirrhosis of liver without ascites; L97.519 Non-pressure chronic ulcer of other part of right foot with unspecified severity; L97.522 Non-pressure chronic ulcer of other part of left foot with fat layer exposed; M19.90 Unspecified osteoarthritis, unspecified site; N18.3 Chronic kidney disease, stage 3 (moderate); Z79.02 Long term (current) use of antithrombotics/antiplatelets; Z79.4 Long term (current) use of insulin; Z79.82 Long term (current) use of aspirin; Z79.899 Other long term (current) drug therapy; Z80.0 Family history of malignant neoplasm of digestive organs; Z82.49 Family history of ischemic heart disease and other diseases of the circulatory system; Z87.891 Personal history of nicotine dependence; Z89.512 Acquired absence of left leg below knee; Z95.1 Presence of aortocoronary bypass graft; Z95.2 Presence of prosthetic heart valve; Z95.5 Presence of coronary angioplasty implant and graft; Z99.81 Dependence on supplemental oxygen
CPT/HCPCS: 36410; 36415; 64445; 64447; 76937; 76942; 80048; 80053; 83605; 85025; 85610; 85730; 87040; 87070; 87075; 87077; 87186; 87205; 93005; 96374; 96376; 99285

== ENCOUNTER 2020-01-02 11:58 | Emergency (ER) | payer MEDICARE ==
--- NOTE | 2020-01-02 12:31 | ED ---
General Adult HPI - General Chief complaint: Recheck/Abnormal Lab/Rx Stated complaint: abnormal labs Time Seen by Provider: 01/02/20 12:00 Source: patient, EMS, RN notes reviewed, old records reviewed Mode of arrival: EMS - History of Present Illness Initial comments: This is a 74-year-old male who has chronic renal disease as well as diabetes and high blood pressure. Patient was sent in today by his primary medical care doctor because lab work came back and indicated that the patient's kidney function was much worse. Patient states he has been feeling overall weak but no focal deficit. Patient denies any chest pain or palpitations. Patient denies any shortness of breath or difficulty breathing. Patient denies any recent fever chills or cough. Patient denies any lightheadedness or dizziness. Patient denies any injury or trauma. - Related Data Home Medications Medication Instructions Recorded Confirmed Cholecalciferol [Vitamin D3 (25 2,000 unit PO DAILY 01/04/16 06/07/19 Mcg = 1000 Iu)] Ferrous Sulfate [Iron (65 MG 325 mg PO DAILY 01/04/16 06/07/19 Elemental)] Multivitamins, Thera [Multivitamin 1 tab PO DAILY 01/09/17 06/07/19 (formulary)] Aspirin 81 mg PO DAILY 11/29/18 06/07/19 Metoprolol Tartrate [Lopressor] 50 mg PO BID 11/29/18 06/07/19 INSULIN LISPRO (humaLOG) [humaLOG] See Protocol SQ AC-TID 04/17/19 06/07/19 Acetaminophen [Tylenol] 650 mg PO TID 05/24/19 06/07/19 Albuterol Inhaler (Mhu) [Ventolin 2 puff INHALATION RT-Q6H PRN 05/24/19 06/07/19 Hfa Inhaler (Mhu)] Clopidogrel Bisulfate [Plavix] 75 mg PO DAILY 05/24/19 06/07/19 Collagenase [Santyl] 1 applic TOPICAL HS 05/24/19 06/07/19 Darbepoetin Ruddy [Aranesp] 40 mcg IJ TU 05/24/19 06/07/19 Docusate [Colace] 100 mg PO DAILY 05/24/19 06/07/19 Escitalopram [Lexapro] 10 mg PO HS 05/24/19 06/07/19 Furosemide [Lasix] 80 mg PO BID 05/24/19 06/07/19 Heparin Sodium,Porcine [Heparin 5,000 unit SQ Q12HR 05/24/19 06/07/19 Sodium] Oxymetazoline 0.05% Nasl [place] 1 spray EA NOSTRIL Q4HR PRN 05/24/19 06/07/19 [Afrin 0.05% Nasal [place]] Sennosides [Senna] 8.6 mg PO DAILY 05/24/19 06/07/19 Sodium Chloride [Saline Nasal 1 spray EA NOSTRIL Q2HR PRN 05/24/19 06/07/19 [place]] metOLazone [Zaroxolyn] 2.5 mg PO TUFR 05/24/19 06/07/19 Acetaminophen [Tylenol] 650 mg PO Q4H PRN 06/07/19 06/07/19 Bisacodyl 5 mg PO Q24H PRN 06/07/19 06/07/19 Glucagon Emergency Kit 1 mg IM ONCE PRN 06/07/19 06/07/19 Glycerin Adult Suppository 1 supp RECTAL Q24H PRN 06/07/19 06/07/19 Lactobacillus Acidophilus 1 tab PO DAILY 06/07/19 06/07/19 [Acidophilus] Sodium Chloride [Saline Nasal 1 spray EA NOSTRIL QID PRN 06/07/19 06/07/19 [place]] Zinc Oxide Ointment 1 applic TOPICAL TID 06/07/19 06/07/19 Previous Rx's Medication Instructions Recorded Atorvastatin [Lipitor] 40 mg PO HS tab 12/13/18 Insulin Detemir (Levemir) [Levemir] 12 unit SQ HS syr 01/18/19 Magnesium Oxide [Mag-Ox] 400 mg PO BID 30 Days #60 tab 01/23/19 Piperacillin-Tazobactam [Zosyn] 3.375 gm IVPB Q8H #42 vial 06/18/19 Gabapentin [Neurontin] 300 mg PO BID #4 cap 06/19/19 Hydrocodone/Acetaminophen [[place] 1 tab PO Q8HR #4 tab 06/19/19 5-325] Magnesium Hydroxide [Milk of 2,400 mg PO ONCE PRN ml 06/19/19 Magnesia Concentrate] Pantoprazole [Protonix] 40 mg PO AC-BRKFST tablet. 06/19/19 traMADol HCl [Ultram] 50 mg PO Q6H PRN #4 tab 06/19/19 Allergies Allergy/AdvReac Type Severity Reaction Status Date / Time No Known Allergies Allergy Verified 01/02/20 12:05 Review of Systems ROS Statement: Those systems with pertinent positive or pertinent negative responses have been documented in the HPI. ROS Other: All systems not noted in ROS Statement are negative. Past Medical History Past Medical History: Atrial Fibrillation, Coronary Artery Disease (CAD), Heart Failure, COPD, Diabetes Mellitus, Eye Disorder, Hyperlipidemia, Hypertension, Osteoarthritis (OA), Pneumonia, Renal Disease, Sleep Apnea/CPAP/BIPAP, Vascular Disorder Additional Past Medical History / Comment(s): Chronic anemia/procrit, hx CKD stage III, pulmonary HTN, home oxygen continuous at 2L NC, decreased vision bilaterally since CABG surgery, neuropathy bilateral legs/feet, chronic bilateral leg/foot pain, severe PVD, past bilateral lower leg/foot wounds and cellulitis, current bilateral lower leg wounds, sepsis d/t leg wounds 2018, mild gastritis, diverticular disease. no cpap used History of Any Multi-Drug Resistant Organisms: None Reported Past Surgical History: Adenoidectomy, Cardiac Valve Replacement, Heart Catheterization, Heart Catheterization With Stent, Tonsillectomy Additional Past Surgical History / Comment(s): 04/22/19 L leg angiogram, FAUSTINO, mitral valve repair 10/31/18, EGD, colonoscopies. one cardiac stent, Vascular surgery May 28 left leg Past Anesthesia/Blood Transfusion Reactions: No Reported Reaction Additional Past Anesthesia/Blood Transfusion Reaction / Comment(s): DIFF IV STARTS Date of Last Stent Placement:: fall 2018 Past Psychological History: Depression Smoking Status: Former smoker Past Alcohol Use History: Occasional Past Drug Use History: None Reported - Past Family History Father Family Medical History: Cancer Additional Family Medical History / Comment(s): stomach Mother Family Medical History: Congestive Heart Failure (CHF) Additional Family Medical History / Comment(s): AT AGE 68 Brother(s) Family Medical History: Cancer General Exam - General Exam Comments Initial Comments: GENERAL: Patient is well-developed and well-nourished. Patient is nontoxic and well- hydrated and is in no acute distress. ENT: Neck is soft and supple. No significant lymphadenopathy is noted. Oropharynx is clear. Moist mucous membranes. Neck has full range of motion without eliciting any pain. EYES: The sclera were anicteric and conjunctiva were pink and moist. Extraocular movements were intact and pupils were equal round and reactive to light. Eyelids were unremarkable. PULMONARY: Unlabored respirations. Good breath sounds bilaterally. No audible rales rhonchi or wheezing was noted. CARDIOVASCULAR: There is a regular rate and rhythm without any murmurs gallops or rubs. ABDOMEN: Soft and nontender with normal bowel sounds. SKIN: Skin is clear with no lesions or rashes and otherwise unremarkable. NEUROLOGIC: Patient is alert and oriented x3. Cranial nerves II through XII are grossly intact. Motor and sensory are also intact. Normal speech, volume and content. Symmetrical smile. MUSCULOSKELETAL: Normal extremities with adequate strength and full range of motion. 2+ edema LYMPHATICS: No significant lymphadenopathy is noted PSYCHIATRIC: Normal psychiatric evaluation. Course Vital Signs 01/02/20 01/02/20 12:05 14:29 Temperature 98 F Pulse Rate 78 77 Respiratory 18 18 Rate Blood Pressure 123/67 123/86 O2 Sat by Pulse 97 95 Oximetry Medical Decision Making - Medical Decision Making EKG shows normal sinus rhythm at 74 bpm WA interval is 206 QRS is 88 QT interval 434 QTC is 41 per patient's EKG shows no ST segment elevation or depression. Chest x-ray shows no acute abnormality. I offered the patient admission but he did not want to be admitted to the hospital he did not want to do a rehabilitation he did not want to the half-way. I spoke with the as well as the daughter and they were in agreement and understood - Lab Data Result diagrams: 01/02/20 13:04 01/02/20 13:04 Lab Results 01/02/20 01/02/20 01/02/20 Range/Units 13:04 13:04 13:04 WBC 8.8 (3.8-10.6) k/uL RBC 3.57 L (4.30-5.90) m/uL Hgb 11.0 L (13.0-17.5) gm/dL Hct 35.4 L (39.0-53.0) % MCV 99.1 (80.0-100.0) fL MCH 30.9 (25.0-35.0) pg MCHC 31.2 (31.0-37.0) g/dL RDW 17.3 H (11.5-15.5) % Plt Count 232 (150-450) k/uL Neutrophils % 75 % Lymphocytes % 9 % Monocytes % 7 % Eosinophils % 6 % Basophils % 1 % Neutrophils # 6.6 (1.3-7.7) k/uL Lymphocytes # 0.8 L (1.0-4.8) k/uL Monocytes # 0.7 (0-1.0) k/uL Eosinophils # 0.6 (0-0.7) k/uL Basophils # 0.1 (0-0.2) k/uL Hypochromasia Moderate Anisocytosis Slight Macrocytosis Slight Sodium 138 (137-145) mmol/L Potassium 4.3 (3.5-5.1) mmol/L Chloride 95 L (98-107) mmol/L Carbon Dioxide 36 H (22-30) mmol/L Anion Gap 7 mmol/L BUN 58 H (9-20) mg/dL Creatinine 1.28 H (0.66-1.25) mg/dL Est GFR (CKD-EPI)AfAm 63 (>60 ml/min/1.73 sqM) Est GFR (CKD-EPI)NonAf 54 (>60 ml/min/1.73 sqM) Glucose 76 (74-99) mg/dL Plasma Lactic Acid Guy (0.7-2.0) mmol/L Calcium 9.2 (8.4-10.2) mg/dL Magnesium 2.6 H (1.6-2.3) mg/dL Total Bilirubin 0.6 (0.2-1.3) mg/dL AST 42 (17-59) U/L ALT 17 (4-49) U/L Alkaline Phosphatase 89 (38-126) U/L Troponin I (0.000-0.034) ng/mL NT-Pro-B Natriuret Pep pg/mL Total Protein 7.2 (6.3-8.2) g/dL Albumin 3.7 (3.5-5.0) g/dL Urine Color Yellow Urine Appearance Clear (Clear) Urine pH 5.5 (5.0-8.0) Ur Specific [place] 1.020 (1.001-1.035) Urine Protein Negative (Negative) Urine Glucose (UA) Negative (Negative) Urine Ketones Negative (Negative) Urine Blood Negative (Negative) Urine Nitrite Negative (Negative) Urine Bilirubin Negative (Negative) Urine Urobilinogen <2.0 (<2.0) mg/dL Ur Leukocyte Esterase Negative (Negative) 01/02/20 01/02/20 01/02/20 Range/Units 13:04 13:04 13:04 WBC (3.8-10.6) k/uL RBC (4.30-5.90) m/uL Hgb (13.0-17.5) gm/dL Hct (39.0-53.0) % MCV (80.0-100.0) fL MCH (25.0-35.0) pg MCHC (31.0-37.0) g/dL RDW (11.5-15.5) % Plt Count (150-450) k/uL Neutrophils % % Lymphocytes % % Monocytes % % Eosinophils % % Basophils % % Neutrophils # (1.3-7.7) k/uL Lymphocytes # (1.0-4.8) k/uL Monocytes # (0-1.0) k/uL Eosinophils # (0-0.7) k/uL Basophils # (0-0.2) k/uL Hypochromasia Anisocytosis Macrocytosis Sodium (137-145) mmol/L Potassium (3.5-5.1) mmol/L Chloride (98-107) mmol/L Carbon Dioxide (22-30) mmol/L Anion Gap mmol/L BUN (9-20) mg/dL Creatinine (0.66-1.25) mg/dL Est GFR (CKD-EPI)AfAm (>60 ml/min/1.73 sqM) Est GFR (CKD-EPI)NonAf (>60 ml/min/1.73 sqM) Glucose (74-99) mg/dL Plasma Lactic Acid Guy 1.9 (0.7-2.0) mmol/L Calcium (8.4-10.2) mg/dL Magnesium (1.6-2.3) mg/dL Total Bilirubin (0.2-1.3) mg/dL AST (17-59) U/L ALT (4-49) U/L Alkaline Phosphatase (38-126) U/L Troponin I <0.012 (0.000-0.034) ng/mL NT-Pro-B Natriuret Pep 2610 pg/mL Total Protein (6.3-8.2) g/dL Albumin (3.5-5.0) g/dL Urine Color Urine Appearance (Clear) Urine pH (5.0-8.0) Ur Specific [place] (1.001-1.035) Urine Protein (Negative) Urine Glucose (UA) (Negative) Urine Ketones (Negative) Urine Blood (Negative) Urine Nitrite (Negative) Urine Bilirubin (Negative) Urine Urobilinogen (<2.0) mg/dL Ur Leukocyte Esterase (Negative) Disposition Clinical Impression: Weakness, Renal insufficiency Disposition: HOME SELF-CARE Instructions (If sedation given, give patient instructions): Weakness (ED) Is patient prescribed a controlled substance at d/c from ED?: No Referrals: Lary Martin MD [Primary Care Provider] - 1-2 days Time of Disposition: 15:13
[2020-01-02 13:33] LABS: Anisocytosis Slight; Basophils # (A) 0.1 k/uL (0-0.2); Basophils % (A) 1 %; Eosinophils # (A) 0.6 k/uL (0-0.7); Eosinophils % (A) 6 %; HCT 35.4 % (39.0-53.0); Hypochromasia Moderate; Lymphocytes # (A) 0.8 k/uL (1.0-4.8); Lymphocytes % (A) 9 %; MCH 30.9 pg (25.0-35.0); MCHC 31.2 g/dL (31.0-37.0); MCV 99.1 fL (80.0-100.0); Macrocytosis Slight; Mean Platelet Volume 7.3; Monocytes # (A) 0.7 k/uL (0-1.0); Monocytes % (A) 7 %; Neutrophils # (A) 6.6 k/uL (1.3-7.7); Neutrophils % (A) 75 %; Platelet Count 232 k/uL (150-450); RBC 3.57 m/uL (4.30-5.90); RDW 17.3 % (11.5-15.5); WBC 8.8 k/uL (3.8-10.6)
[2020-01-02 13:36] LABS: Appearance,Urine Clear (Clear); Bilirubin,Urine Negative (Negative); Blood,Urine Negative (Negative); Color,Urine Yellow; Glucose,Urine (UA) Negative (Negative); Ketones,Urine Negative (Negative); Leukocyte Esterase,Urine Negative (Negative); Nitrite,Urine Negative (Negative); PH, Urine 5.5 (5.0-8.0); Protein,Urine Negative (Negative); Urobilinogen,Urine <2.0 mg/dL (<2.0)
[2020-01-02 13:43] LABS: Albumin 3.7 g/dL (3.5-5.0); Calcium 9.2 mg/dL (8.4-10.2); Magnesium 2.6 mg/dL (1.6-2.3); Potassium 4.3 mmol/L (3.5-5.1); Total Bilirubin 0.6 mg/dL (0.2-1.3); Total Protein 7.2 g/dL (6.3-8.2)
--- NOTE | 2020-01-02 14:00 | XR ---
EXAMINATION TYPE: XR chest 2V DATE OF EXAM: 01/02/2020 COMPARISON: Chest CT December 23, 2018. Most recent x-ray May 11, 2019 HISTORY: Abnormal labs. Weakness. TECHNIQUE: Frontal and lateral views of the chest are obtained. FINDINGS: There is chronic parenchymal changes bilaterally with patchy left basilar opacity probably less well seen on lateral view. Overlying sternal wires redemonstrated. Left atrial appendage clip again seen. Dense mitral annular calcifications redemonstrated. Persistent cardiomegaly. The osseou s structures are demineralized. Degenerative change right shoulder. Nodularity lateral right upper mi d lung corresponds to calcified pleural plaque on CT. IMPRESSION: Chronic changes and cardiomegaly with possible patchy left basilar acute infiltrate and/ or atelectasis. Progress study advised.
[2020-01-02] MEDS ORDERED: ACETAMINOPHEN TAB 325 MG TAB PO STA (15:20)
[2020-01-02 15:37] VITALS: BP 121/61; PULSE 78; RESP 16; TEMP 98.3
== END 2020-01-02 15:38 | disposition home or self-care (01) ==
LOC: EC 11:58
DX: N28.9 Disorder of kidney and ureter, unspecified (principal); R53.1 Weakness; I48.91 Unspecified atrial fibrillation; I25.10 Atherosclerotic heart disease of native coronary artery without angina pectoris; I13.0 Hypertensive heart and chronic kidney disease with heart failure and stage 1 through stage 4 chronic kidney disease, or unspecified chronic kidney disease; I50.9 Heart failure, unspecified; N18.30 Chronic kidney disease, stage 3 unspecified; J44.9 Chronic obstructive pulmonary disease, unspecified; E78.5 Hyperlipidemia, unspecified; G47.30 Sleep apnea, unspecified; E11.22 Type 2 diabetes mellitus with diabetic chronic kidney disease; E11.40 Type 2 diabetes mellitus with diabetic neuropathy, unspecified; E11.51 Type 2 diabetes mellitus with diabetic peripheral angiopathy without gangrene; F32.9 Major depressive disorder, single episode, unspecified; Z95.5 Presence of coronary angioplasty implant and graft; Z87.891 Personal history of nicotine dependence; Z79.82 Long term (current) use of aspirin; Z79.4 Long term (current) use of insulin; Z79.02 Long term (current) use of antithrombotics/antiplatelets; Z79.899 Other long term (current) drug therapy; Z95.4 Presence of other heart-valve replacement; Z99.89 Dependence on other enabling machines and devices; Z95.1 Presence of aortocoronary bypass graft
CPT/HCPCS: 36415; 71046; 80053; 81003; 83605; 83735; 83880; 84484; 85025; 93005; 99284

== ENCOUNTER 2020-01-03 15:32 | Inpatient (IN) | payer MEDICARE ==
[2020-01-03 16:28] LABS: Anisocytosis Slight; Basophils % (A) 0 %; Eosinophils # (A) 0.7 k/uL (0-0.7); Eosinophils % (A) 7 %; HCT 35.9 % (39.0-53.0); HGB 11.1 gm/dL (13.0-17.5); Hypochromasia Slight; Lymphocytes # (A) 0.9 k/uL (1.0-4.8); Lymphocytes % (A) 8 %; MCH 29.7 pg (25.0-35.0); MCHC 30.8 g/dL (31.0-37.0); MCV 96.4 fL (80.0-100.0); Macrocytosis Slight; Mean Platelet Volume 6.6; Monocytes # (A) 0.5 k/uL (0-1.0); Monocytes % (A) 5 %; Neutrophils # (A) 8.4 k/uL (1.3-7.7); Neutrophils % (A) 78 %; Platelet Count 271 k/uL (150-450); RBC 3.72 m/uL (4.30-5.90); RDW 17.6 % (11.5-15.5); WBC 10.7 k/uL (3.8-10.6)
[2020-01-03] MEDS ORDERED: VANCOMYCIN IV PER PHARMACY 1 EACH MISC MISCELLANE PRN (16:37)
[2020-01-03] MEDS ORDERED: MORPHINE SULFATE 4 MG/ML SYRINGE IVP STA (16:37)
[2020-01-03] MEDS ORDERED: MORPHINE SULFATE 4 MG/ML SYRINGE IVP PRN (16:37)
--- NOTE | 2020-01-03 16:37 | ED ---
Recheck HPI - General Chief Complaint: Recheck/Abnormal Lab/Rx Stated Complaint: Foot infection Time Seen by Provider: 01/03/20 15:45 Source: patient, RN notes reviewed, old records reviewed Mode of arrival: ambulatory Limitations: no limitations - History of Present Illness Initial Comments: This is a patient sent in for worsening infection of wound. Patient is in chronic will care having maybe some fevers not feeling well patient presents medication changes upper transfer record patient has green malodorous discharge from his wounds. Patient will be admitted for IV antibiotics and wound care MD Complaint: wound re-check -: days(s) Returns Today for: Called Because of Abnormal Lab/Test, persistent/worsening pain related to initial visit Symptoms Since Prior Visit: no new symptoms Context: planned re-check Associated Symptoms: none - Related Data Home Medications Medication Instructions Recorded Confirmed Cholecalciferol [Vitamin D3 (25 2,000 unit PO DAILY 01/04/16 06/07/19 Mcg = 1000 Iu)] Ferrous Sulfate [Iron (65 MG 325 mg PO DAILY 01/04/16 06/07/19 Elemental)] Multivitamins, Thera [Multivitamin 1 tab PO DAILY 01/09/17 06/07/19 (formulary)] Aspirin 81 mg PO DAILY 11/29/18 06/07/19 Metoprolol Tartrate [Lopressor] 50 mg PO BID 11/29/18 06/07/19 INSULIN LISPRO (humaLOG) [humaLOG] See Protocol SQ AC-TID 04/17/19 06/07/19 Acetaminophen [Tylenol] 650 mg PO TID 05/24/19 06/07/19 Albuterol Inhaler (Mhu) [Ventolin 2 puff INHALATION RT-Q6H PRN 05/24/19 06/07/19 Hfa Inhaler (Mhu)] Clopidogrel Bisulfate [Plavix] 75 mg PO DAILY 05/24/19 06/07/19 Collagenase [Santyl] 1 applic TOPICAL HS 05/24/19 06/07/19 Darbepoetin Ruddy [Aranesp] 40 mcg IJ TU 05/24/19 06/07/19 Docusate [Colace] 100 mg PO DAILY 05/24/19 06/07/19 Escitalopram [Lexapro] 10 mg PO HS 05/24/19 06/07/19 Furosemide [Lasix] 80 mg PO BID 05/24/19 06/07/19 Heparin Sodium,Porcine [Heparin 5,000 unit SQ Q12HR 05/24/19 06/07/19 Sodium] Oxymetazoline 0.05% Nasl [place] 1 spray EA NOSTRIL Q4HR PRN 05/24/19 06/07/19 [Afrin 0.05% Nasal [place]] Sennosides [Senna] 8.6 mg PO DAILY 05/24/19 06/07/19 Sodium Chloride [Saline Nasal 1 spray EA NOSTRIL Q2HR PRN 05/24/19 06/07/19 [place]] metOLazone [Zaroxolyn] 2.5 mg PO TUFR 05/24/19 06/07/19 Acetaminophen [Tylenol] 650 mg PO Q4H PRN 06/07/19 06/07/19 Bisacodyl 5 mg PO Q24H PRN 06/07/19 06/07/19 Glucagon Emergency Kit 1 mg IM ONCE PRN 06/07/19 06/07/19 Glycerin Adult Suppository 1 supp RECTAL Q24H PRN 06/07/19 06/07/19 Lactobacillus Acidophilus 1 tab PO DAILY 06/07/19 06/07/19 [Acidophilus] Sodium Chloride [Saline Nasal 1 spray EA NOSTRIL QID PRN 06/07/19 06/07/19 [place]] Zinc Oxide Ointment 1 applic TOPICAL TID 06/07/19 06/07/19 Previous Rx's Medication Instructions Recorded Atorvastatin [Lipitor] 40 mg PO HS tab 12/13/18 Insulin Detemir (Levemir) [Levemir] 12 unit SQ HS syr 01/18/19 Magnesium Oxide [Mag-Ox] 400 mg PO BID 30 Days #60 tab 01/23/19 Piperacillin-Tazobactam [Zosyn] 3.375 gm IVPB Q8H #42 vial 06/18/19 Gabapentin [Neurontin] 300 mg PO BID #4 cap 06/19/19 Hydrocodone/Acetaminophen [[place] 1 tab PO Q8HR #4 tab 06/19/19 5-325] Magnesium Hydroxide [Milk of 2,400 mg PO ONCE PRN ml 06/19/19 Magnesia Concentrate] Pantoprazole [Protonix] 40 mg PO AC-[id number] tablet. 06/19/19 traMADol HCl [Ultram] 50 mg PO Q6H PRN #4 tab 06/19/19 Allergies Allergy/AdvReac Type Severity Reaction Status Date / Time No Known Allergies Allergy Verified 01/02/20 12:05 Review of Systems ROS Statement: Those systems with pertinent positive or pertinent negative responses have been documented in the HPI. ROS Other: All systems not noted in ROS Statement are negative. Past Medical History Past Medical History: Atrial Fibrillation, Coronary Artery Disease (CAD), Heart Failure, COPD, Diabetes Mellitus, Eye Disorder, Hyperlipidemia, Hypertension, Osteoarthritis (OA), Pneumonia, Renal Disease, Sleep Apnea/CPAP/BIPAP, Vascular Disorder Additional Past Medical History / Comment(s): Chronic anemia/procrit, hx CKD stage III, pulmonary HTN, home oxygen continuous at 2L NC, decreased vision bilaterally since CABG surgery, neuropathy bilateral legs/feet, chronic bilateral leg/foot pain, severe PVD, past bilateral lower leg/foot wounds and cellulitis, current bilateral lower leg wounds, sepsis d/t leg wounds 2018, mild gastritis, diverticular disease. no cpap used History of Any Multi-Drug Resistant Organisms: None Reported Past Surgical History: Adenoidectomy, Cardiac Valve Replacement, Heart Catheterization, Heart Catheterization With Stent, Tonsillectomy Additional Past Surgical History / Comment(s): 04/22/19 L leg angiogram, FAUSTINO, mitral valve repair 10/31/18, EGD, colonoscopies. one cardiac stent, Vascular surgery May 28 left leg Past Anesthesia/Blood Transfusion Reactions: No Reported Reaction Additional Past Anesthesia/Blood Transfusion Reaction / Comment(s): DIFF IV STARTS Date of Last Stent Placement:: fall 2018 Past Psychological History: No Psychological Hx Reported, Depression Smoking Status: Former smoker Past Alcohol Use History: Occasional Past Drug Use History: None Reported - Past Family History Father Family Medical History: Cancer Additional Family Medical History / Comment(s): stomach Mother Family Medical History: Congestive Heart Failure (CHF) Additional Family Medical History / Comment(s): AT AGE 68 Brother(s) Family Medical History: Cancer General Exam - General Exam Comments Initial Comments: Patient's wounds are bandaged Limitations: no limitations General appearance: alert, in no apparent distress Head exam: Present: atraumatic, normocephalic, normal inspection Eye exam: Present: normal appearance, PERRL, EOMI. Absent: scleral icterus, conjunctival injection, periorbital swelling ENT exam: Present: normal exam, mucous membranes moist Neck exam: Present: normal inspection. Absent: tenderness, meningismus, lymphadenopathy Respiratory exam: Present: normal lung sounds bilaterally. Absent: respiratory distress, wheezes, rales, rhonchi, stridor Cardiovascular Exam: Present: regular rate, normal rhythm, normal heart sounds. Absent: systolic murmur, diastolic murmur, rubs, gallop, clicks GI/Abdominal exam: Present: soft, normal bowel sounds. Absent: distended, tenderness, guarding, rebound, rigid Extremities exam: Present: normal inspection, full ROM, normal capillary refill. Absent: tenderness, pedal edema, joint swelling, calf tenderness Back exam: Present: normal inspection Neurological exam: Present: alert, oriented X3, CN II-XII intact Psychiatric exam: Present: normal affect, normal mood Skin exam: Present: warm, dry, intact, normal color. Absent: rash Course Vital Signs 01/03/20 01/03/20 01/03/20 15:37 15:40 16:00 Temperature 100.0 F H Pulse Rate 80 78 Respiratory 18 17 Rate Blood Pressure 137/84 133/70 O2 Sat by Pulse 95 98 99 Oximetry 01/03/20 01/03/20 16:30 17:00 Temperature Pulse Rate 80 81 Respiratory 16 18 Rate Blood Pressure 137/84 129/66 O2 Sat by Pulse 98 97 Oximetry - Reevaluation(s) Reevaluation #1: 01/03/20 17:21 Medical record is reviewed Reevaluation #2: 01/03/20 17:22 Patient has pain pain is well-controlled currently Reevaluation #3: 01/03/20 17:22 Spoke patient regarding findings, questions answered Medical Decision Making - Medical Decision Making 34 male to the ER for evaluation presents today for evaluation of chronic bilateral lower extremity and foot wounds. Patient will be admitted for IV antibiotics worsening of infection - Lab Data Result diagrams: 01/03/20 16:18 01/03/20 16:18 Lab Results 01/03/20 01/03/20 01/03/20 Range/Units 16:18 16:18 16:18 WBC 10.7 H (3.8-10.6) k/uL RBC 3.72 L (4.30-5.90) m/uL Hgb 11.1 L (13.0-17.5) gm/dL Hct 35.9 L (39.0-53.0) % MCV 96.4 (80.0-100.0) fL MCH 29.7 (25.0-35.0) pg MCHC 30.8 L (31.0-37.0) g/dL RDW 17.6 H (11.5-15.5) % Plt Count 271 (150-450) k/uL Neutrophils % 78 % Lymphocytes % 8 % Monocytes % 5 % Eosinophils % 7 % Basophils % 0 % Neutrophils # 8.4 H (1.3-7.7) k/uL Lymphocytes # 0.9 L (1.0-4.8) k/uL Monocytes # 0.5 (0-1.0) k/uL Eosinophils # 0.7 (0-0.7) k/uL Basophils # 0.0 (0-0.2) k/uL Hypochromasia Slight Anisocytosis Slight Macrocytosis Slight PT 9.6 (9.0-12.0) sec INR 0.9 (<1.2) APTT 24.6 (22.0-30.0) sec Sodium (137-145) mmol/L Potassium (3.5-5.1) mmol/L Chloride (98-107) mmol/L Carbon Dioxide (22-30) mmol/L Anion Gap mmol/L BUN (9-20) mg/dL Creatinine (0.66-1.25) mg/dL Est GFR (CKD-EPI)AfAm (>60 ml/min/1.73 sqM) Est GFR (CKD-EPI)NonAf (>60 ml/min/1.73 sqM) Glucose (74-99) mg/dL Plasma Lactic Acid Guy (0.7-2.0) mmol/L Calcium (8.4-10.2) mg/dL Phosphorus (2.5-4.5) mg/dL Magnesium (1.6-2.3) mg/dL Total Bilirubin (0.2-1.3) mg/dL AST (17-59) U/L ALT (4-49) U/L Alkaline Phosphatase (38-126) U/L Creatine Kinase (55-170) U/L Troponin I (0.000-0.034) ng/mL Total Protein (6.3-8.2) g/dL Albumin (3.5-5.0) g/dL Urine Color Light Yellow Urine Appearance Clear (Clear) Urine pH 5.0 (5.0-8.0) Ur Specific [place] 1.012 (1.001-1.035) Urine Protein Negative (Negative) Urine Glucose (UA) Trace H (Negative) Urine Ketones Negative (Negative) Urine Blood Negative (Negative) Urine Nitrite Negative (Negative) Urine Bilirubin Negative (Negative) Urine Urobilinogen <2.0 (<2.0) mg/dL Ur Leukocyte Esterase Negative (Negative) 01/03/20 01/03/20 01/03/20 Range/Units 16:18 16:18 16:24 WBC (3.8-10.6) k/uL RBC (4.30-5.90) m/uL Hgb (13.0-17.5) gm/dL Hct (39.0-53.0) % MCV (80.0-100.0) fL MCH (25.0-35.0) pg MCHC (31.0-37.0) g/dL RDW (11.5-15.5) % Plt Count (150-450) k/uL Neutrophils % % Lymphocytes % % Monocytes % % Eosinophils % % Basophils % % Neutrophils # (1.3-7.7) k/uL Lymphocytes # (1.0-4.8) k/uL Monocytes # (0-1.0) k/uL Eosinophils # (0-0.7) k/uL Basophils # (0-0.2) k/uL Hypochromasia Anisocytosis Macrocytosis PT (9.0-12.0) sec INR (<1.2) APTT (22.0-30.0) sec Sodium 137 (137-145) mmol/L Potassium 4.2 (3.5-5.1) mmol/L Chloride 93 L (98-107) mmol/L Carbon Dioxide 37 H (22-30) mmol/L Anion Gap 7 mmol/L BUN 55 H (9-20) mg/dL Creatinine 1.25 (0.66-1.25) mg/dL Est GFR (CKD-EPI)AfAm 65 (>60 ml/min/1.73 sqM) Est GFR (CKD-EPI)NonAf 56 (>60 ml/min/1.73 sqM) Glucose 191 H (74-99) mg/dL Plasma Lactic Acid Guy 1.9 (0.7-2.0) mmol/L Calcium 9.2 (8.4-10.2) mg/dL Phosphorus 4.8 H (2.5-4.5) mg/dL Magnesium 2.7 H (1.6-2.3) mg/dL Total Bilirubin 0.5 (0.2-1.3) mg/dL AST 45 (17-59) U/L ALT 18 (4-49) U/L Alkaline Phosphatase 97 (38-126) U/L Creatine Kinase 48 L (55-170) U/L Troponin I <0.012 (0.000-0.034) ng/mL Total Protein 7.6 (6.3-8.2) g/dL Albumin 4.0 (3.5-5.0) g/dL Urine Color Urine Appearance (Clear) Urine pH (5.0-8.0) Ur Specific [place] (1.001-1.035) Urine Protein (Negative) Urine Glucose (UA) (Negative) Urine Ketones (Negative) Urine Blood (Negative) Urine Nitrite (Negative) Urine Bilirubin (Negative) Urine Urobilinogen (<2.0) mg/dL Ur Leukocyte Esterase (Negative) - EKG Data -: EKG Interpreted by Me (EKG is sinus rhythm 80 ID [id number] QRS 92 QTC 4) Disposition Clinical Impression: Non-pressure chronic ulcer of other part of left lower leg with fat layer exposed, 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 layer exposed, Non- pressure chronic ulcer of other part of left foot with fat layer exposed, Weakness, Cellulitis of both lower extremities, Bilateral lower leg cellulitis Disposition: ADMITTED IP TO THIS HOSP Condition: Fair Is patient prescribed a controlled substance at d/c from ED?: No Referrals: Lary Martin MD [Primary Care Provider] - 1-2 days
[2020-01-03 16:38] LABS: Calcium 9.2 mg/dL (8.4-10.2); INR 0.9 (<1.2); Magnesium 2.7 mg/dL (1.6-2.3); Partial Thromboplastin Time 24.6 sec (22.0-30.0); Phosphorus 4.8 mg/dL (2.5-4.5); Potassium 4.2 mmol/L (3.5-5.1); Prothrombin Time 9.6 sec (9.0-12.0); Total Bilirubin 0.5 mg/dL (0.2-1.3); Total Protein 7.6 g/dL (6.3-8.2)
[2020-01-03 16:56] LABS: Appearance,Urine Clear (Clear); Bilirubin,Urine Negative (Negative); Blood,Urine Negative (Negative); Color,Urine Light Yellow; Glucose,Urine (UA) Trace (Negative); Ketones,Urine Negative (Negative); Leukocyte Esterase,Urine Negative (Negative); Nitrite,Urine Negative (Negative); Protein,Urine Negative (Negative); Specific Gravity,Urine 1.012 (1.001-1.035); Urobilinogen,Urine <2.0 mg/dL (<2.0)
[2020-01-03] MEDS ORDERED: VANCOMYCIN 1,500 MG in SODIUM CHLORIDE 0.9% 250 ML IVPB ONE (17:00)
[2020-01-03] MEDS ORDERED: SODIUM CHLORIDE 0.9% 1,000 ML IV ONE (17:23)
--- NOTE | 2020-01-03 17:29 | XR ---
EXAMINATION TYPE: XR chest 2V DATE OF EXAM: 01/03/2020 COMPARISON: 01/02/2020 HISTORY: Leg infection. Weakness. TECHNIQUE: FINDINGS: There is no heart failure nor confluent pneumonic infiltrate. There are sternal wires. Cost ophrenic angles are clear. There is calcified granuloma or plaque on the right lateral lung field. Th e bony thorax is intact. IMPRESSION: No active cardiopulmonary disease. No change.
[2020-01-03] MEDS ORDERED: HYDROmorphone 1 MG/ML 1 ML SYRINGE IVP STA (17:49)
[2020-01-03] MEDS: HYDROmorphone 0.5 MG/0.5 ML SYRINGE IVP PRN (20:02)
[2020-01-03] MEDS: ACETAMINOPHEN TAB 325 MG TAB PO PRN (20:02)
[2020-01-03 20:45] LABS: Glucose,Whole Blood 128 mg/dL (75-99)
[2020-01-03] MEDS: INSULIN ASPART (NovoLOG) 100 UNIT/ML VIAL SQ SCH (22:02)
[2020-01-03] MEDS: INSULIN DETEMIR (LEVEMIR) 100 UNIT/ML SYR SQ SCH (22:10)
[2020-01-03] MEDS: GABAPENTIN 300 MG CAP PO SCH (22:10)
[2020-01-03] MEDS: MAGNESIUM OXIDE 400 MG TAB PO SCH (22:11)
[2020-01-03] MEDS: ATORVASTATIN 40 MG TAB PO SCH (22:11)
[2020-01-04] MEDS: HYDROmorphone 0.5 MG/0.5 ML SYRINGE IVP PRN ×5 (00:10→19:13)
[2020-01-04 04:32] LABS: Anisocytosis Slight; HCT 30.9 % (39.0-53.0); HGB 9.7 gm/dL (13.0-17.5); Hypochromasia Moderate; MCH 30.9 pg (25.0-35.0); MCHC 31.3 g/dL (31.0-37.0); MCV 98.8 fL (80.0-100.0); Macrocytosis Slight; Platelet Count 220 k/uL (150-450); RBC 3.13 m/uL (4.30-5.90); RDW 17.5 % (11.5-15.5); WBC 13.9 k/uL (3.8-10.6)
[2020-01-04 07:12] LABS: Glucose,Whole Blood 174 mg/dL (75-99)
[2020-01-04] MEDS: INSULIN ASPART (NovoLOG) 100 UNIT/ML VIAL SQ SCH ×4 (07:59→20:24)
[2020-01-04] MEDS: LACTOBACILLUS ACIDOPH & BULGAR 1 EACH PACKET PO SCH (08:00)
[2020-01-04] MEDS: ASCORBIC ACID 500 MG TAB PO SCH (08:00)
[2020-01-04] MEDS: ESCITALOPRAM 10 MG TAB PO SCH (08:00)
[2020-01-04] MEDS: GABAPENTIN 300 MG CAP PO SCH ×3 (08:00→20:25)
[2020-01-04] MEDS: MULTIVITAMINS, THERA 1 EACH TAB PO SCH (08:00)
[2020-01-04] MEDS: MAGNESIUM OXIDE 400 MG TAB PO SCH ×2 (08:00→20:25)
[2020-01-04] MEDS: CLOPIDOGREL 75 MG TAB PO SCH (08:00)
[2020-01-04] MEDS: PANTOPRAZOLE 40 MG TABLET PO SCH (08:00)
[2020-01-04] MEDS: FERROUS SULFATE 325 MG TAB PO SCH (08:00)
[2020-01-04] MEDS: CHOLECALCIFEROL 1,000 UNIT TAB PO SCH (08:00)
[2020-01-04] MEDS: ASPIRIN 81 MG PO SCH (08:00)
[2020-01-04] MEDS ORDERED: METOPROLOL SUCCINATE (ER) 25 MG TAB.ER.24H PO SCH (09:00)
[2020-01-04 09:27] LABS: Anion Gap 8.2 mmol/L (4.00-12.00); BUN/Creat Ratio 32.67 Ratio (12.00-20.00); Calcium 8.9 mg/dL (8.7-10.3); Carbon Dioxide 31.8 mmol/L (21.6-31.8); Non-African American GFR(CKD) 44.9 (60.0-200.0); Potassium 4.4 mmol/L (3.5-5.5)
--- NOTE | 2020-01-04 10:52 | P.HPIM ---
History of Present Illness this is a pleasant 74 years old male with past medical history of bilateral lower extremity ulceration and cellulitis with pseudomonas about 6 or 7 months ago, peripheral vascular disease status post revascularization surgery, chronic kidney disease stage II to 3, chronic atrial fibrillation, history of coronary artery disease, history of heart failure and COPD, type 2 diabetes mellitus, diabetic neuropathy, hypertension, hyperlipidemia, as her arthritis, sleep apnea, pulmonary hypertension, mitral regurgitation, chronic hypoxic respiratory failure on 2 L oxygen via nasal cannula, history of depression patient had fever of 100.6 upon admission with leukocytosis of 13.9 K, Restoril vitals and CBC is unremarkable, INR 0.9, BMP is unremarkable, creatinine 1.5 with GFR of 44.9. Liver enzymes , urine analysis on chest x-ray showing no signs of infection. EKG showing normal sinus rhythm with no significant ST-T changes On admission patient was started on Rocephin 1 g daily.and IV vancomycin. Also he was started on normal sinus 100 mL/h which was stopped. vascular surgery team were consulted from emergency room she states that he lives at home for the last 3 months after he came from [facility]. He came to the hospital because of infection and also recommended from his left leg wound, both legs are wrapped in a bandage and patient refused me examine his legs. patient denies chest pain or dyspnea, no abdominal pain, no vomiting, no back pain. No headache. Patient feels generally weak patient denies smoking, alcohol or illicit drugs Chest x-ray: No acute process.EKG showing in the emergency room patient was started on Rocephin and vancomycin Review of Systems CONSTITUTIONAL: No fever, no malaise, no fatigue. HEENT: No recent visual problems or hearing problems. Denied any sore throat. CARDIOVASCULAR: No orthopnea, PND, no palpitations, no syncope. PULMONARY: No shortness of breath, no cough, no hemoptysis. GASTROINTESTINAL: No diarrhea, no nausea, no vomiting, no abdominal pain. Normoactive bowel sounds. NEUROLOGICAL: No headaches, no weakness, no numbness. HEMATOLOGICAL: Denies any bleeding or petechiae. GENITOURINARY: Denies any burning micturition, frequency, or urgency. MUSCULOSKELETAL/RHEUMATOLOGICAL: Denies any joint pain, swelling, or any muscle pain. ENDOCRINE: Denies any polyuria or polydipsia. Past Medical History Past Medical History: Atrial Fibrillation, Coronary Artery Disease (CAD), Heart Failure, COPD, Diabetes Mellitus, Eye Disorder, Hyperlipidemia, Hypertension, Osteoarthritis (OA), Pneumonia, Renal Disease, Sleep Apnea/CPAP/BIPAP, Vascular Disorder Additional Past Medical History / Comment(s): Chronic anemia/procrit, hx CKD stage III, pulmonary HTN, home oxygen continuous at 2L [place], decreased vision bilaterally since CABG surgery, neuropathy bilateral legs/feet, chronic bilateral leg/foot pain, severe PVD, past bilateral lower leg/foot wounds and cellulitis, current bilateral lower leg wounds, sepsis d/t leg wounds 2018, mild gastritis, diverticular disease. no cpap used History of Any Multi-Drug Resistant Organisms: None Reported Past Surgical History: Adenoidectomy, Cardiac Valve Replacement, Heart Mayra terization, Heart Catheterization With Stent, Tonsillectomy Additional Past Surgical History / Comment(s): 04/22/19 L leg angiogram, FAUSTINO, mitral valve repair 10/31/18, EGD, colonoscopies. one cardiac stent, Vascular surgery May 28 left leg Past Anesthesia/Blood Transfusion Reactions: No Reported Reaction Additional Past Anesthesia/Blood Transfusion Reaction / Comment(s): DIFF IV STARTS Date of Last Stent Placement:: fall 2018 Past Psychological History: No Psychological Hx Reported, Depression Additional Psychological History / Comment(s): . Smoking Status: Former smoker Past Alcohol Use History: Occasional Additional Past Alcohol Use History / Comment(s): Pt started smoking in 1958 and quit in 2007. He smoked pipe. Past Drug Use History: None Reported - Past Family History Father Family Medical History: Cancer Additional Family Medical History / Comment(s): stomach Mother Family Medical History: Congestive Heart Failure (CHF) Additional Family Medical History / Comment(s): AT AGE 68 Brother(s) Family Medical History: Cancer Medications and Allergies Home Medications Medication Instructions Recorded Confirmed Type Cholecalciferol [Vitamin D3 (25 1,000 unit PO DAILY 01/04/16 01/03/20 History Mcg = 1000 Iu)] Ferrous Sulfate [Iron (65 MG 650 mg PO DAILY 01/04/16 01/03/20 History Elemental)] Multivitamins, Thera [Multivitamin 1 tab PO DAILY 01/09/17 01/03/20 History (formulary)] Aspirin 81 mg PO DAILY 11/29/18 01/03/20 History Atorvastatin [Lipitor] 40 mg PO HS tab 12/13/18 01/03/20 Rx Clopidogrel Bisulfate [Plavix] 75 mg PO DAILY 05/24/19 01/03/20 History Escitalopram [Lexapro] 10 mg PO DAILY 05/24/19 01/03/20 History metOLazone [Zaroxolyn] 2.5 mg PO TUFR 05/24/19 01/03/20 History Glucagon Emergency Kit 1 mg IM ONCE PRN 06/07/19 01/03/20 History Lactobacillus Acidophilus 1 tab PO DAILY 06/07/19 01/03/20 History [Acidophilus] traMADol HCl [Ultram] 50 mg PO Q6H PRN #4 tab 06/19/19 01/03/20 Rx Acetaminophen Tab [Tylenol Tab] 1,000 mg PO Q6HR 01/03/20 01/03/20 History Albuterol Sulfate [Ventolin HFA] 1 - 2 puff INHALATION RT-Q4H PRN 01/03/20 01/03/20 History Gabapentin [Neurontin] 600 mg PO TID 01/03/20 01/03/20 History Insulin Detemir [Levemir Flextouch] 12 units SQ HS 01/03/20 01/03/20 History Insulin Lispro [humaLOG Kwikpen] 10 unit SQ BID 01/03/20 01/03/20 History Insulin Lispro [humaLOG Kwikpen] See Protocol SQ BID PRN 01/03/20 01/03/20 History Magnesium Oxide [Mag-Ox] 400 mg PO BID 01/03/20 01/03/20 History Metoprolol Succinate (ER) [Toprol 25 mg PO DAILY 01/03/20 01/03/20 History Xl] Omeprazole 20 mg PO DAILY 01/03/20 01/03/20 History Vitamin C Gummies 2 cap PO DAILY 01/03/20 01/03/20 History Allergies Allergy/AdvReac Type Severity Reaction Status Date / Time No Known Allergies Allergy Verified 01/03/20 17:53 Physical Exam Vitals: Vital Signs Temp Pulse Pulse Resp BP BP Pulse Ox 01/04/20 07:15 98.8 F 78 18 148/78 95 01/03/20 19:39 98.4 F 86 19 155/73 95 01/03/20 18:52 100.4 F H 78 20 137/77 97 01/03/20 18:07 100.6 F H 82 20 140/72 96 01/03/20 17:30 82 20 141/72 98 01/03/20 17:00 81 18 129/66 97 01/03/20 16:30 80 16 137/84 98 01/03/20 16:00 78 17 133/70 99 01/03/20 15:40 100.0 F H 80 18 137/84 98 01/03/20 15:37 95 Intake and Output 01/03/20 01/04/20 01/04/20 22:59 06:59 14:59 Other: Voiding Method Urinal Urinal Diaper Diaper Incontinent Incontinent # Voids 1 2 Weight 90.718 kg -GENERAL: The patient is alert and oriented x3, not in any acute distress. obese HEENT: Pupils are round and equally reacting to light. EOMI. No scleral icterus. No conjunctival pallor. Normocephalic, atraumatic. No pharyngeal erythema. No thyromegaly. CARDIOVASCULAR: S1 and S2 present. No murmurs, rubs, or gallops. PULMONARY: Chest is clear to auscultation, no wheezing or crackles. ABDOMEN: Soft, nontender, nondistended, normoactive bowel sounds. No palpable organomegaly. MUSCULOSKELETAL: No joint swelling or deformity. -EXTREMITIES: patient refused examination of the lower extremities. Both legs are wrapped in Zi bandage -NEUROLOGICAL: patient refused examination Results CBC & Chem 7: 01/04/20 03:59 01/04/20 03:59 Labs: Abnormal Lab Results - Last 24 Hours (Table) 01/03/20 01/03/20 01/03/20 Range/Units 16:18 16:18 16:18 WBC 10.7 H (3.8-10.6) k/uL RBC 3.72 L (4.30-5.90) m/uL Hgb 11.1 L (13.0-17.5) gm/dL Hct 35.9 L (39.0-53.0) % MCHC 30.8 L (31.0-37.0) g/dL RDW 17.6 H (11.5-15.5) % Neutrophils # 8.4 H (1.3-7.7) k/uL Lymphocytes # 0.9 L (1.0-4.8) k/uL Chloride 93 L (98-107) mmol/L Carbon Dioxide 37 H (22-30) mmol/L BUN 55 H (9-20) mg/dL Est GFR (CKD-EPI)AfAm (60.0-200.0) Est GFR (CKD-EPI)NonAf (60.0-200.0) BUN/Creatinine Ratio (12.00-20.00) Ratio Glucose 191 H (74-99) mg/dL POC Glucose (mg/dL) (75-99) mg/dL Phosphorus 4.8 H (2.5-4.5) mg/dL Magnesium 2.7 H (1.6-2.3) mg/dL Creatine Kinase 48 L (55-170) U/L Urine Glucose (UA) Trace H (Negative) 01/03/20 01/04/20 01/04/20 Range/Units 20:44 03:59 03:59 WBC 13.9 H (3.8-10.6) k/uL RBC 3.13 L (4.30-5.90) m/uL Hgb 9.7 L (13.0-17.5) gm/dL Hct 30.9 L (39.0-53.0) % MCHC (31.0-37.0) g/dL RDW 17.5 H (11.5-15.5) % Neutrophils # (1.3-7.7) k/uL Lymphocytes # (1.0-4.8) k/uL Chloride (98-107) mmol/L Carbon Dioxide (22-30) mmol/L BUN 49.0 H (9-20) mg/dL Est GFR (CKD-EPI)AfAm 52.0 L (60.0-200.0) Est GFR (CKD-EPI)NonAf 44.9 L (60.0-200.0) BUN/Creatinine Ratio 32.67 H (12.00-20.00) Ratio Glucose 150 H (74-99) mg/dL POC Glucose (mg/dL) 128 H (75-99) mg/dL Phosphorus (2.5-4.5) mg/dL Magnesium (1.6-2.3) mg/dL Creatine Kinase (55-170) U/L Urine Glucose (UA) (Negative) 01/04/20 Range/Units 07:10 WBC (3.8-10.6) k/uL RBC (4.30-5.90) m/uL Hgb (13.0-17.5) gm/dL Hct (39.0-53.0) % MCHC (31.0-37.0) g/dL RDW (11.5-15.5) % Neutrophils # (1.3-7.7) k/uL Lymphocytes # (1.0-4.8) k/uL Chloride (98-107) mmol/L Carbon Dioxide (22-30) mmol/L BUN (9-20) mg/dL Est GFR (CKD-EPI)AfAm (60.0-200.0) Est GFR (CKD-EPI)NonAf (60.0-200.0) BUN/Creatinine Ratio (12.00-20.00) Ratio Glucose (74-99) mg/dL POC Glucose (mg/dL) 174 H (75-99) mg/dL Phosphorus (2.5-4.5) mg/dL Magnesium (1.6-2.3) mg/dL Creatine Kinase (55-170) U/L Urine Glucose (UA) (Negative) Thrombosis Risk Factor Assmnt - Choose All That Apply Any of the Below Risk Factors Present?: Yes Each Factor Represents 1 point: Medical pt on bed rest, Obesity (BMI >25) Each Risk Factor Represents 3 Points: Age 75 years or older Thrombosis Risk Factor Assessment Total Risk Factor Score: 5 Thrombosis Risk Factor Assessment Level: High Risk Assessment and Plan Assessment: Bilateral lower extremity ulceration and cellulitis with Pseudomonas from the wound cultures. peripheral vascular disease status post revascularization surgery in the past Chronic kidney disease, stage II-III Chronic atrial fibrillation History of coronary artery disease Chronic congestive heart failure with unknown ejection fraction Chronic obstructive pulmonary disease, not in acute exacerbation Type 2 diabetes mellitus Diabetic neuropathy Hypertension Hyperlipidemia Osteoarthritis Sleep apnea Pulmonary hypertension Mitral regurgitation Chronic hypoxic respiratory failure and 2 L oxygen via nasal cannula History of depression obesity Plan: this is a pleasant 74 years old male who presents with bilateral lower extremity cellulitis.follow-up with vascular surgery. patient will need antibiotics but consult infectious disease and follow-up with their recommendation.continue with aspirin and Plavix Labs and medication were reviewed.. Continue same treatment. Continue with symptomatic treatment. Resume home medication. Monitor lytes and vitals. DVT and GI prophylaxis. Further recommendations depends on the clinical course of the patient DVT prophylaxis: Subcutaneous heparin GI Prophylaxis: Ppi PT/OT: Pending
[2020-01-04 11:38] LABS: Glucose,Whole Blood 244 mg/dL (75-99)
[2020-01-04] MEDS: HEPARIN SODIUM,PORCINE 5,000 UNIT/ML 1 ML VIAL SQ SCH ×2 (12:05→20:24)
[2020-01-04] MEDS: THIAMINE 100 MG TAB PO SCH (12:06)
[2020-01-04 14:57] VITALS: BMI 32.3
--- NOTE | 2020-01-04 15:23 | P.GSCN ---
History of Present Illness Consult date: 01/04/20 History of present illness: The patient is a 74-year-old male who is well known to me from previous admissions as well as wound care down at [facility]. Apparently yesterday after evaluation at home healthcare, there was some visualized green drainage in his left lower extremity which they were concerned with therefore he presented to the hospital for further evaluation and workup. He states that he's had a low-grade fever, but otherwise denies any issues with chest pains, problems breathing or issues otherwise. Past Medical History Past Medical History: Atrial Fibrillation, Coronary Artery Disease (CAD), Heart Failure, COPD, Diabetes Mellitus, Eye Disorder, Hyperlipidemia, Hypertension, Osteoarthritis (OA), Pneumonia, Renal Disease, Sleep Apnea/CPAP/BIPAP, Vascular Disorder Additional Past Medical History / Comment(s): Chronic anemia/procrit, hx CKD stage III, pulmonary HTN, home oxygen continuous at 2L NC, decreased vision bilaterally since CABG surgery, neuropathy bilateral legs/feet, chronic bilateral leg/foot pain, severe PVD, past bilateral lower leg/foot wounds and cellulitis, current bilateral lower leg wounds, sepsis d/t leg wounds 2018, mild gastritis, diverticular disease. no cpap used History of Any Multi-Drug Resistant Organisms: None Reported Past Surgical History: Adenoidectomy, Cardiac Valve Replacement, Heart Catheterization, Heart Catheterization With Stent, Tonsillectomy Additional Past Surgical History / Comment(s): 04/22/19 L leg angiogram, FAUSTINO, mitral valve repair 10/31/18, EGD, colonoscopies. one cardiac stent, Vascular surgery May 28 left leg Past Anesthesia/Blood Transfusion Reactions: No Reported Reaction Additional Past Anesthesia/Blood Transfusion Reaction / Comm: DIFF IV STARTS Date of Last Stent Placement:: fall 2018 Past Psychological History: No Psychological Hx Reported, Depression Additional Psychological History / Comment(s): . Smoking Status: Former smoker Past Alcohol Use History: Occasional Additional Past Alcohol Use History / Comment(s): Pt started smoking in 1958 and quit in 2007. He smoked pipe. Past Drug Use History: None Reported - Past Family History Father Family Medical History: Cancer Additional Family Medical History / Comment(s): stomach Mother Family Medical History: Congestive Heart Failure (CHF) Additional Family Medical History / Comment(s): AT AGE 68 Brother(s) Family Medical History: Cancer Medications and Allergies Home Medications Medication Instructions Recorded Confirmed Type Cholecalciferol [Vitamin D3 (25 1,000 unit PO DAILY 01/04/16 01/03/20 History Mcg = 1000 Iu)] Ferrous Sulfate [Iron (65 MG 650 mg PO DAILY 01/04/16 01/03/20 History Elemental)] Multivitamins, Thera [Multivitamin 1 tab PO DAILY 01/09/17 01/03/20 History (formulary)] Aspirin 81 mg PO DAILY 11/29/18 01/03/20 History Atorvastatin [Lipitor] 40 mg PO HS tab 12/13/18 01/03/20 Rx Clopidogrel Bisulfate [Plavix] 75 mg PO DAILY 05/24/19 01/03/20 History Escitalopram [Lexapro] 10 mg PO DAILY 05/24/19 01/03/20 History metOLazone [Zaroxolyn] 2.5 mg PO TUFR 05/24/19 01/03/20 History Glucagon Emergency Kit 1 mg IM ONCE PRN 06/07/19 01/03/20 History Lactobacillus Acidophilus 1 tab PO DAILY 06/07/19 01/03/20 History [Acidophilus] traMADol HCl [Ultram] 50 mg PO Q6H PRN #4 tab 06/19/19 01/03/20 Rx Acetaminophen Tab [Tylenol Tab] 1,000 mg PO Q6HR 01/03/20 01/03/20 History Albuterol Sulfate [Ventolin HFA] 1 - 2 puff INHALATION RT-Q4H PRN 01/03/20 01/03/20 History Gabapentin [Neurontin] 600 mg PO TID 01/03/20 01/03/20 History Insulin Detemir [Levemir Flextouch] 12 units SQ HS 01/03/20 01/03/20 History Insulin Lispro [humaLOG Kwikpen] 10 unit SQ BID 01/03/20 01/03/20 History Insulin Lispro [humaLOG Kwikpen] See Protocol SQ BID PRN 01/03/20 01/03/20 History Magnesium Oxide [Mag-Ox] 400 mg PO BID 01/03/20 01/03/20 History Metoprolol Succinate (ER) [Toprol 25 mg PO DAILY 01/03/20 01/03/20 History Xl] Omeprazole 20 mg PO DAILY 01/03/20 01/03/20 History Vitamin C Gummies 2 cap PO DAILY 01/03/20 01/03/20 History Allergies Allergy/AdvReac Type Severity Reaction Status Date / Time No Known Allergies Allergy Verified 01/03/20 17:53 Surgical - Exam Vital Signs Pulse Ox 95 01/03/20 15:37 General is a pleasant cooperative male in no acute distress, chronically ill- appearing.Wearing O2 per NC. Heart irreg irreg at this time. Lungs decreased breath sounds but clear. Abd soft, Nt/Nd. The dressings were removed from his lower extremity status significantly improved swelling and excoriations of the skin from previous. The right lower extremity is nearly all dry. Dried wounds. No significant drainage. No areas of fluctuation. Left lower extremity is relatively dry. There is some small wounds to the posterior leg as well as the anterior dorsum of the foot. The toes remain excoriated as previous. no significant drainage or discharge noted, no foul odor. some fibrinous exudate. They are redressed with Adaptic, Kerlix and Coban Results - Labs 01/04/20 03:59 01/04/20 03:59 Abnormal Lab Results - Last 24 Hours (Table) 01/03/20 01/03/20 01/03/20 Range/Units 16:18 16:18 16:18 WBC 10.7 H (3.8-10.6) k/uL RBC 3.72 L (4.30-5.90) m/uL Hgb 11.1 L (13.0-17.5) gm/dL Hct 35.9 L (39.0-53.0) % MCHC 30.8 L (31.0-37.0) g/dL RDW 17.6 H (11.5-15.5) % Neutrophils # 8.4 H (1.3-7.7) k/uL Lymphocytes # 0.9 L (1.0-4.8) k/uL Chloride 93 L (98-107) mmol/L Carbon Dioxide 37 H (22-30) mmol/L BUN 55 H (9-20) mg/dL Est GFR (CKD-EPI)AfAm (60.0-200.0) Est GFR (CKD-EPI)NonAf (60.0-200.0) BUN/Creatinine Ratio (12.00-20.00) Ratio Glucose 191 H (74-99) mg/dL POC Glucose (mg/dL) (75-99) mg/dL Phosphorus 4.8 H (2.5-4.5) mg/dL Magnesium 2.7 H (1.6-2.3) mg/dL Creatine Kinase 48 L (55-170) U/L Urine Glucose (UA) Trace H (Negative) 01/03/20 01/04/20 01/04/20 Range/Units 20:44 03:59 03:59 WBC 13.9 H (3.8-10.6) k/uL RBC 3.13 L (4.30-5.90) m/uL Hgb 9.7 L (13.0-17.5) gm/dL Hct 30.9 L (39.0-53.0) % MCHC (31.0-37.0) g/dL RDW 17.5 H (11.5-15.5) % Neutrophils # (1.3-7.7) k/uL Lymphocytes # (1.0-4.8) k/uL Chloride (98-107) mmol/L Carbon Dioxide (22-30) mmol/L BUN 49.0 H (9-20) mg/dL Est GFR (CKD-EPI)AfAm 52.0 L (60.0-200.0) Est GFR (CKD-EPI)NonAf 44.9 L (60.0-200.0) BUN/Creatinine Ratio 32.67 H (12.00-20.00) Ratio Glucose 150 H (74-99) mg/dL POC Glucose (mg/dL) 128 H (75-99) mg/dL Phosphorus (2.5-4.5) mg/dL Magnesium (1.6-2.3) mg/dL Creatine Kinase (55-170) U/L Urine Glucose (UA) (Negative) 01/04/20 01/04/20 Range/Units 07:10 11:37 WBC (3.8-10.6) k/uL RBC (4.30-5.90) m/uL Hgb (13.0-17.5) gm/dL Hct (39.0-53.0) % MCHC (31.0-37.0) g/dL RDW (11.5-15.5) % Neutrophils # (1.3-7.7) k/uL Lymphocytes # (1.0-4.8) k/uL Chloride (98-107) mmol/L Carbon Dioxide (22-30) mmol/L BUN (9-20) mg/dL Est GFR (CKD-EPI)AfAm (60.0-200.0) Est GFR (CKD-EPI)NonAf (60.0-200.0) BUN/Creatinine Ratio (12.00-20.00) Ratio Glucose (74-99) mg/dL POC Glucose (mg/dL) 174 H 244 H (75-99) mg/dL Phosphorus (2.5-4.5) mg/dL Magnesium (1.6-2.3) mg/dL Creatine Kinase (55-170) U/L Urine Glucose (UA) (Negative) Diabetes panel 01/03/20 01/04/20 Range/Units 16:18 03:59 Sodium 137 138 (137-145) mmol/L Potassium 4.2 4.4 (3.5-5.1) mmol/L Chloride 93 L 98 (98-107) mmol/L Carbon Dioxide 37 H 31.8 (22-30) mmol/L BUN 55 H 49.0 H (9-20) mg/dL Creatinine 1.25 1.5 (0.66-1.25) mg/dL Glucose 191 H 150 H (74-99) mg/dL Calcium 9.2 8.9 (8.4-10.2) mg/dL AST 45 (17-59) U/L ALT 18 (4-49) U/L Alkaline Phosphatase 97 (38-126) U/L Total Protein 7.6 (6.3-8.2) g/dL Albumin 4.0 (3.5-5.0) g/dL Calcium panel 01/03/20 01/04/20 Range/Units 16:18 03:59 Calcium 9.2 8.9 (8.4-10.2) mg/dL Phosphorus 4.8 H (2.5-4.5) mg/dL Albumin 4.0 (3.5-5.0) g/dL Pituitary panel 01/03/20 01/04/20 Range/Units 16:18 03:59 Sodium 137 138 (137-145) mmol/L Potassium 4.2 4.4 (3.5-5.1) mmol/L Chloride 93 L 98 (98-107) mmol/L Carbon Dioxide 37 H 31.8 (22-30) mmol/L BUN 55 H 49.0 H (9-20) mg/dL Creatinine 1.25 1.5 (0.66-1.25) mg/dL Glucose 191 H 150 H (74-99) mg/dL Calcium 9.2 8.9 (8.4-10.2) mg/dL Adrenal panel 01/03/20 01/04/20 Range/Units 16:18 03:59 Sodium 137 138 (137-145) mmol/L Potassium 4.2 4.4 (3.5-5.1) mmol/L Chloride 93 L 98 (98-107) mmol/L Carbon Dioxide 37 H 31.8 (22-30) mmol/L BUN 55 H 49.0 H (9-20) mg/dL Creatinine 1.25 1.5 (0.66-1.25) mg/dL Glucose 191 H 150 H (74-99) mg/dL Calcium 9.2 8.9 (8.4-10.2) mg/dL Total Bilirubin 0.5 (0.2-1.3) mg/dL AST 45 (17-59) U/L ALT 18 (4-49) U/L Alkaline Phosphatase 97 (38-126) U/L Total Protein 7.6 (6.3-8.2) g/dL Albumin 4.0 (3.5-5.0) g/dL Assessment and Plan Assessment: #1 bilateral lower extremity wounds #2 bilateral lower extremity edema #3 peripheral arterial disease #4 COPD #5 chronic atrial fibrillation #6 chronic kidney disease Plan: At this point I do not believe the patient has any significant abscess or wound issue. He may have some topical cellulitis on the left lower extremity. I do agree with some sort of antibiotic at this time, but overall these areas look much improved from our initial visit and improved from my previous visit with him. Continue bilateral lower extremity wraps and supportive care otherwise. Hopeful for discharge soon. A culture was taken on the left lower extremity to help infectious disease regarding antibiotic selection
[2020-01-04] MEDS: traMADol 50 MG TAB PO PRN (16:37)
[2020-01-04 18:00] LABS: Glucose,Whole Blood 241 mg/dL (75-99)
[2020-01-04] MEDS: VANCOMYCIN 1,500 MG in SODIUM CHLORIDE 0.9% 250 ML IVPB SCH (18:13)
[2020-01-04 19:41] LABS: Hemoglobin A1C 7.2 % (4.0-6.0)
[2020-01-04 19:46] LABS: Glucose,Whole Blood 225 mg/dL (75-99)
[2020-01-04] MEDS: INSULIN DETEMIR (LEVEMIR) 100 UNIT/ML SYR SQ SCH (20:22)
[2020-01-04] MEDS: ATORVASTATIN 40 MG TAB PO SCH (20:25)
[2020-01-05] MEDS: HYDROmorphone 0.5 MG/0.5 ML SYRINGE IVP PRN ×4 (03:31→17:32)
[2020-01-05 05:52] LABS: Anisocytosis Slight; Basophils % (A) 0 %; Eosinophils # (A) 0.7 k/uL (0-0.7); Eosinophils % (A) 7 %; HGB 9.2 gm/dL (13.0-17.5); Hypochromasia Moderate; Lymphocytes # (A) 0.5 k/uL (1.0-4.8); Lymphocytes % (A) 5 %; MCH 29.7 pg (25.0-35.0); MCHC 30.8 g/dL (31.0-37.0); MCV 96.4 fL (80.0-100.0); Macrocytosis Slight; Mean Platelet Volume 6.7; Monocytes # (A) 0.4 k/uL (0-1.0); Monocytes % (A) 4 %; Neutrophils # (A) 8.5 k/uL (1.3-7.7); Neutrophils % (A) 83 %; Platelet Count 199 k/uL (150-450); RBC 3.11 m/uL (4.30-5.90); RDW 17.3 % (11.5-15.5); WBC 10.3 k/uL (3.8-10.6)
--- NOTE | 2020-01-05 06:32 | P.CONS ---
History of Present Illness - Reason for Consult Consult date: 01/04/20 Fever and leg wound infection Requesting physician: Bakari E Sheet - Chief Complaint Left leg redness and drainage x few days - History of Present Illness Patient is 74-year-old male with a past medical history significant for chronic bilateral lower extremity venous stasis ulcers and history of recurrent cellulitis patient to follow with Dr. Burrell at [facility] wound care iaeger with local wound care has been unaboots, patient was evaluated by his home care nurse yesterday and mentioned there was mild distress during his drainage from his left leg with concern for cellulitis to the left leg the patient was sent to [facility] ER, patient had been complaining of pain to the legs slightly more to the left leg for the last 1 week more of a dull aching pain intensity can be 5-6 out of 10 and no radiation the patient denies having any headache no chest pain or shortness of breath or cough no nausea no vomiting no abdominal pain and no diarrhea with these symptoms the patient was evaluated by the physician on arrival to the ER patient did have low-grade fever 100.6F, initial white count was 10.7 repeat this morning is 13.9 the patient did have a negative UA, chest x-ray was negative for any acute infiltrate patient has been started on Rocephin and vancomycin pharmacy to dose infectious disease was consulted for further management of antibiotic therapy, patient has refused change of his dressing as he is waiting for Dr. Burrell to come change the dressing and look at the wounds Review of Systems Positive point has been mentioned in the HPI rest of the systems are negative Past Medical History Past Medical History: Atrial Fibrillation, Coronary Artery Disease (CAD), Heart Failure, COPD, Diabetes Mellitus, Eye Disorder, Hyperlipidemia, Hypertension, Osteoarthritis (OA), Pneumonia, Renal Disease, Sleep Apnea/CPAP/BIPAP, Vascular Disorder Additional Past Medical History / Comment(s): Chronic anemia/procrit, hx CKD stage III, pulmonary HTN, home oxygen continuous at 2L NC, decreased vision bilaterally since CABG surgery, neuropathy bilateral legs/feet, chronic bilateral leg/foot pain, severe PVD, past bilateral lower leg/foot wounds and cellulitis, current bilateral lower leg wounds, sepsis d/t leg wounds 2018, mild gastritis, diverticular disease. no cpap used History of Any Multi-Drug Resistant Organisms: None Reported Past Surgical History: Adenoidectomy, Cardiac Valve Replacement, Heart Catheterization, Heart Catheterization With Stent, Tonsillectomy Additional Past Surgical History / Comment(s): 04/22/19 L leg angiogram, FAUSTINO, mitral valve repair 10/31/18, EGD, colonoscopies. one cardiac stent, Vascular surgery May 28 left leg Past Anesthesia/Blood Transfusion Reactions: No Reported Reaction Additional Past Anesthesia/Blood Transfusion Reaction / Comm: DIFF IV STARTS Date of Last Stent Placement:: fall 2018 Past Psychological History: No Psychological Hx Reported, Depression Additional Psychological History / Comment(s): . Smoking Status: Former smoker Past Alcohol Use History: Occasional Additional Past Alcohol Use History / Comment(s): Pt started smoking in 1957 and quit in 2007. He smoked pipe. Past Drug Use History: None Reported - Past Family History Father Family Medical History: Cancer Additional Family Medical History / Comment(s): stomach Mother Family Medical History: Congestive Heart Failure (CHF) Additional Family Medical History / Comment(s): AT AGE 68 Brother(s) Family Medical History: Cancer Medications and Allergies Home Medications Medication Instructions Recorded Confirmed Type Cholecalciferol [Vitamin D3 (25 1,000 unit PO DAILY 01/04/16 01/03/20 History Mcg = 1000 Iu)] Ferrous Sulfate [Iron (65 MG 650 mg PO DAILY 01/04/16 01/03/20 History Elemental)] Multivitamins, Thera [Multivitamin 1 tab PO DAILY 01/09/17 01/03/20 History (formulary)] Aspirin 81 mg PO DAILY 11/29/18 01/03/20 History Atorvastatin [Lipitor] 40 mg PO HS tab 12/13/18 01/03/20 Rx Clopidogrel Bisulfate [Plavix] 75 mg PO DAILY 05/24/19 01/03/20 History Escitalopram [Lexapro] 10 mg PO DAILY 05/24/19 01/03/20 History metOLazone [Zaroxolyn] 2.5 mg PO TUFR 05/24/19 01/03/20 History Glucagon Emergency Kit 1 mg IM ONCE PRN 06/07/19 01/03/20 History Lactobacillus Acidophilus 1 tab PO DAILY 06/07/19 01/03/20 History [Acidophilus] traMADol HCl [Ultram] 50 mg PO Q6H PRN #4 tab 06/19/19 01/03/20 Rx Acetaminophen Tab [Tylenol Tab] 1,000 mg PO Q6HR 01/03/20 01/03/20 History Albuterol Sulfate [Ventolin HFA] 1 - 2 puff INHALATION RT-Q4H PRN 01/03/20 01/03/20 History Gabapentin [Neurontin] 600 mg PO TID 01/03/20 01/03/20 History Insulin Detemir [Levemir Flextouch] 12 units SQ HS 01/03/20 01/03/20 History Insulin Lispro [humaLOG Kwikpen] 10 unit SQ BID 01/03/20 01/03/20 History Insulin Lispro [humaLOG Kwikpen] See Protocol SQ BID PRN 01/03/20 01/03/20 History Magnesium Oxide [Mag-Ox] 400 mg PO BID 01/03/20 01/03/20 History Metoprolol Succinate (ER) [Toprol 25 mg PO DAILY 01/03/20 01/03/20 History Xl] Omeprazole 20 mg PO DAILY 01/03/20 01/03/20 History Vitamin C Gummies 2 cap PO DAILY 01/03/20 01/03/20 History Allergies Allergy/AdvReac Type Severity Reaction Status Date / Time No Known Allergies Allergy Verified 01/03/20 17:53 Physical Exam Vitals: Vital Signs Temp Pulse Resp BP Pulse Ox 01/05/20 04:38 97.7 F 69 18 131/74 91 L 01/05/20 00:00 18 01/04/20 19:41 98.6 F 76 18 134/64 92 L 01/04/20 11:49 98.8 F 75 22 126/69 94 L 01/04/20 07:15 98.8 F 78 18 148/78 95 Intake and Output 01/04/20 01/04/20 01/05/20 14:59 22:59 06:59 Intake Total 850 250 250 Balance 850 250 250 Intake: Intake, IV Titration 850 250 Amount Sodium Chloride 0.9% 1, 800 000 ml @ 100 mls/hr IV . Q10H ONE Rx#:[id number] Vancomycin 1,500 mg In 250 Sodium Chloride 0.9% 250 ml @ 125 mls/hr IVPB Q24H JAIME Rx#:[id number] cefTRIAXone 1 gm In 50 Sodium Chloride 0.9% 50 ml @ 100 mls/hr IVPB Q24H JAIME Rx#:[id number] Oral 250 Other: Voiding Method Urinal Urinal Urinal Diaper Diaper Diaper Incontinent Incontinent Incontinent # Voids 2 1 0 # Bowel Movements 1 0 0 Weight 90.718 kg GENERAL DESCRIPTION: An elderly male lying in bed, no distress. No tachypnea or accessory muscle of respiration use. HEENT: Shows Pallor , no scleral icterus. Oral mucous membrane is dry. No pharyngeal erythema or thrush NECK: Trachea central, no thyromegaly. LUNGS: Unlabored breathing. Clear to auscultation anteriorly. No wheeze or crackle. HEART: S1, S2, regular rate and rhythm. No loud murmur ABDOMEN: Soft, no tenderness , guarding or rigidity, no organomegaly EXTREMITIES: Bilateral lower extremity wounds are currently wrapped, there is no drainage of the dressing SKIN: No rash, no masses palpable. NEUROLOGICAL: The patient is awake, alert, oriented x3, mood and affect normal. Results CBC & Chem 7: 01/05/20 05:30 01/04/20 03:59 Labs: Abnormal Lab Results - Last 24 Hours (Table) 01/04/20 01/04/20 01/04/20 Range/Units 03:59 03:59 07:10 RBC (4.30-5.90) m/uL Hgb (13.0-17.5) gm/dL Hct (39.0-53.0) % MCHC (31.0-37.0) g/dL RDW (11.5-15.5) % Neutrophils # (1.3-7.7) k/uL Lymphocytes # (1.0-4.8) k/uL BUN 49.0 H (9.0-27.0) mg/dL Est GFR (CKD-EPI)AfAm 52.0 L (60.0-200.0) Est GFR (CKD-EPI)NonAf 44.9 L (60.0-200.0) BUN/Creatinine Ratio 32.67 H (12.00-20.00) Ratio Glucose 150 H (70-110) mg/dL POC Glucose (mg/dL) 174 H (75-99) mg/dL Hemoglobin A1c 7.2 H (4.0-6.0) % 01/04/20 01/04/20 01/04/20 Range/Units 11:37 17:33 19:45 RBC (4.30-5.90) m/uL Hgb (13.0-17.5) gm/dL Hct (39.0-53.0) % MCHC (31.0-37.0) g/dL RDW (11.5-15.5) % Neutrophils # (1.3-7.7) k/uL Lymphocytes # (1.0-4.8) k/uL BUN (9.0-27.0) mg/dL Est GFR (CKD-EPI)AfAm (60.0-200.0) Est GFR (CKD-EPI)NonAf (60.0-200.0) BUN/Creatinine Ratio (12.00-20.00) Ratio Glucose (70-110) mg/dL POC Glucose (mg/dL) 244 H 241 H 225 H (75-99) mg/dL Hemoglobin A1c (4.0-6.0) % 01/05/20 Range/Units 05:30 RBC 3.11 L (4.30-5.90) m/uL Hgb 9.2 L (13.0-17.5) gm/dL Hct 30.0 L (39.0-53.0) % MCHC 30.8 L (31.0-37.0) g/dL RDW 17.3 H (11.5-15.5) % Neutrophils # 8.5 H (1.3-7.7) k/uL Lymphocytes # 0.5 L (1.0-4.8) k/uL BUN (9.0-27.0) mg/dL Est GFR (CKD-EPI)AfAm (60.0-200.0) Est GFR (CKD-EPI)NonAf (60.0-200.0) BUN/Creatinine Ratio (12.00-20.00) Ratio Glucose (70-110) mg/dL POC Glucose (mg/dL) (75-99) mg/dL Hemoglobin A1c (4.0-6.0) % Microbiology - Last 24 Hours (Table) 01/04/20 15:06 Wound Culture - Preliminary Foot - Left 01/03/20 16:25 Blood Culture - Preliminary Blood No Growth after 24 hours Assessment and Plan Assessment: 1- patient presented to the hospital with low-grade fever did have elevated white count at this patient did have a history of chronic bilateral lower extremity wound under care of Dr. Burrell at [facility], p atient presented to the hospital with swelling and redness to the leg wound especially the left leg with concern for possible cellulitis is currently patient do not have any other obvious focus of infection patient did have a normal chest x-ray UA has been negative abdominal soft with clinical exami nation, patient has previously grown Pseudomonas and enterococcus from his wound and will need to cover for them, patient care was discussed with Dr. Burrell who will obtain cultures at the time of wound evaluation (1) Cellulitis of both lower extremities Current Visit: Yes Status: Acute Code(s): L03.115 - CELLULITIS OF RIGHT LOWER LIMB; L03.116 - CELLULITIS OF LEFT LOWER LIMB SNOMED Code(s): 761888814 Plan: 1- Vancomycin pharmacy to dose target trough of 15 while watching kidney function and Vanco trough closely 2-discontinue Rocephin and add cefepime 2 g every 12 hours 3-local wound care per vascular surgery We will follow on clinical condition and cultures to further adjust medication if needed Thank you for this consultation will follow this patient with you Time with Patient: Greater than 30
[2020-01-05 07:01] LABS: Glucose,Whole Blood 178 mg/dL (75-99)
[2020-01-05] MEDS: CEFEPIME 2 GM in SODIUM CHLORIDE 0.9% 100 ML IVPB SCH ×2 (07:56→23:27)
[2020-01-05] MEDS: INSULIN ASPART (NovoLOG) 100 UNIT/ML VIAL SQ SCH ×4 (07:59→20:53)
[2020-01-05] MEDS: PANTOPRAZOLE 40 MG TABLET PO SCH (08:00)
[2020-01-05] MEDS: MAGNESIUM OXIDE 400 MG TAB PO SCH ×2 (08:00→20:53)
[2020-01-05] MEDS: GABAPENTIN 300 MG CAP PO SCH ×3 (08:00→22:35)
[2020-01-05] MEDS: CLOPIDOGREL 75 MG TAB PO SCH (08:00)
[2020-01-05] MEDS: ASCORBIC ACID 500 MG TAB PO SCH (08:00)
[2020-01-05] MEDS: METOPROLOL SUCCINATE (ER) 25 MG TAB.ER.24H PO SCH (08:00)
[2020-01-05] MEDS: THIAMINE 100 MG TAB PO SCH (08:00)
[2020-01-05] MEDS: ASPIRIN 81 MG PO SCH (08:00)
[2020-01-05] MEDS: LACTOBACILLUS ACIDOPH & BULGAR 1 EACH PACKET PO SCH (08:00)
[2020-01-05] MEDS: HEPARIN SODIUM,PORCINE 5,000 UNIT/ML 1 ML VIAL SQ SCH ×2 (08:01→20:53)
[2020-01-05] MEDS: CHOLECALCIFEROL 1,000 UNIT TAB PO SCH (08:01)
[2020-01-05] MEDS: FERROUS SULFATE 325 MG TAB PO SCH (08:01)
[2020-01-05] MEDS: ESCITALOPRAM 10 MG TAB PO SCH (08:01)
[2020-01-05] MEDS: MULTIVITAMINS, THERA 1 EACH TAB PO SCH (08:01)
[2020-01-05 09:26] LABS: African American GFR (CKD) 56.6 (60.0-200.0); Anion Gap 6.1 mmol/L (4.00-12.00); BUN/Creat Ratio 36.43 Ratio (12.00-20.00); Calcium 8.6 mg/dL (8.7-10.3); Carbon Dioxide 32.9 mmol/L (21.6-31.8); Non-African American GFR(CKD) 48.8 (60.0-200.0); Potassium 4.3 mmol/L (3.5-5.5)
--- NOTE | 2020-01-05 09:52 | P.PN ---
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 Liver enzymes , urine analysis on chest x-ray showing no si gns of infection. EKG showing normal sinus rhythm with no significant ST-T changes On admission patient was started on Rocephin 1 g daily.and IV vancomycin. Also he was started on normal sinus 100 mL/h which was stopped. vascular surgery team were consulted from emergency room she states that he lives at home for the last 3 months after he came from [facility]. He came to the hospital because of infection and also recommended from his left leg wound, both legs are wrapped in a bandage and patient refused me examine his legs. patient denies chest pain or dyspnea, no abdominal pain, no vomiting, no back pain. No headache. Patient feels generally weak patient denies smoking, alcohol or illicit drugs Chest x-ray: No acute process.EKG showing in the emergency room patient was started on Rocephin and vancomycin 01/05/2020 Patient lying comfortable in bed, he still complaining from pain in his feet, patient states that he was unable to walk for 2 weeks because of pain in his feet, I offered to do physical therapy for the patient but he is hesitant because of his pain. Patient is able to move his knees and lower extremity symmetric currently and with no significant weakness. Both lower extremity are wrapped in Zi bandage, patient refused to be unwrapped. As per Dr. Dill noticed yesterday that looks better than before. No more fever. No leukocytosis. Patient remains on broad-spectrum antibiotics. Creatinine is a stable and 1.4 and he remains on ceftriaxone on IV vancomycin. WBC came down from 13 down to normal at 10.3k.. Glucose is controlled Review of Systems CONSTITUTIONAL: No fever, no malaise, no fatigue. HEENT: No recent visual problems or hearing problems. Denied any sore throat. CARDIOVASCULAR: No orthopnea, PND, no palpitations, no syncope. PULMONARY: No shortness of breath, no cough, no hemoptysis. GASTROINTESTINAL: No diarrhea, no nausea, no vomiting, no abdominal pain. Normoactive bowel sounds. NEUROLOGICAL: No headaches, no weakness, no numbness. Active Medications Generic Name Dose Route Start Last Admin Trade Name Freq PRN Reason Stop Dose Admin Acetaminophen 650 mg 01/03/20 19:57 01/03/20 20:02 Acetaminophen Tab 325 Mg Tab PO 650 mg Q4HR PRN Administration Fever and/ or Pain Ascorbic Acid 500 mg 01/04/20 09:00 01/05/20 08:00 Ascorbic Acid 500 Mg Tab PO 500 mg DAILY JAIME Administration Aspirin 81 mg 01/04/20 09:00 01/05/20 08:00 Aspirin 81 Mg PO 81 mg DAILY JAIME Administration Atorvastatin Calcium 40 mg 01/03/20 21:00 01/04/20 20:25 Atorvastatin 40 Mg Tab PO 40 mg HS JAIME Administration Cholecalciferol 1,000 unit 01/04/20 09:00 01/05/20 08:01 Cholecalciferol 1,000 Unit Tab PO 1,000 unit DAILY JAIME Administration Clopidogrel Bisulfate 75 mg 01/04/20 09:00 01/05/20 08:00 Clopidogrel 75 Mg Tab PO 75 mg DAILY JAIME Administration Escitalopram Oxalate 10 mg 01/04/20 09:00 01/05/20 08:01 Escitalopram 10 Mg Tab PO 10 mg DAILY JAIME Administration Ferrous Sulfate 650 mg 01/04/20 09:00 01/05/20 08:01 Ferrous Sulfate 325 Mg Tab PO 650 mg DAILY JAIME Administration Gabapentin 600 mg 01/03/20 22:00 01/05/20 08:00 Gabapentin 300 Mg Cap PO 600 mg TID JAIME Administration Heparin Sodium (Porcine) 5,000 unit 01/04/20 10:45 01/05/20 08:01 Heparin Sodium,Porcine 5,000 Unit/Ml 1 Ml Vial SQ 5,000 unit Q12HR JAIME Administration Hydromorphone HCl 0.5 mg 01/03/20 19:57 01/05/20 07:57 Hydromorphone 0.5 Mg/0.5 Ml Syringe IVP 0.5 mg Q4HR PRN Administration Pain Vancomycin HCl 1,500 mg/ 250 mls @ 125 mls/hr 01/04/20 18:00 01/04/20 18:13 Sodium Chloride IVPB 125 mls/hr Q24H JAIME Administration Cefepime HCl 2 gm/ Sodium 100 mls @ 25 mls/hr 01/05/20 09:00 01/05/20 07:56 Chloride IVPB 25 mls/hr Q12HR JAIME Administration Insulin Aspart 0 unit 01/03/20 21:00 01/05/20 07:59 Insulin Aspart (Novolog) 100 Unit/Ml Vial SQ 2 unit ACHS JAIME Administration Protocol Insulin Detemir 12 unit 01/03/20 21:00 01/04/20 20:22 Insulin Detemir (Levemir) 100 Unit/Ml Syr SQ 12 unit HS JAIME Administration Lactobacillus Acidoph/Bulgaricus 1 each 01/04/20 09:00 01/05/20 08:00 Lactobacillus Acidoph & Bulgar 1 Each Packet PO 1 each DAILY JAIME Administration Magnesium Oxide 400 mg 01/03/20 21:00 01/05/20 08:00 Magnesium Oxide 400 Mg Tab PO 400 mg BID JAIME Administration Metoprolol Succinate 12.5 mg 01/05/20 09:00 01/05/20 08:00 Metoprolol Succinate (Er) 25 Mg Tab.Er.24h PO 12.5 mg DAILY JAIME Administration Multivitamins 1 each 01/04/20 09:00 01/05/20 08:01 Multivitamins, Thera 1 Each Tab PO 1 each DAILY JAIME Administration Pantoprazole Sodium 40 mg 01/04/20 07:30 01/05/20 08:00 Pantoprazole 40 Mg Tablet PO 40 mg AC-[id number] JAIME Administration Thiamine HCl 100 mg 01/04/20 11:45 01/05/20 08:00 Thiamine 100 Mg Tab PO 100 mg DAILY JAIME Administration Tramadol HCl 50 mg 01/03/20 19:51 01/04/20 16:37 Tramadol 50 Mg Tab PO 50 mg Q6H PRN Administration Pain Objective - Vital Signs Vital signs: Vital Signs Temp 97.7 F 01/05/20 04:38 Pulse 69 01/05/20 04:38 Resp 18 01/05/20 04:38 BP 131/74 01/05/20 04:38 Pulse Ox 91 L 01/05/20 04:38 Intake & Output 01/04/20 01/05/20 01/05/20 18:59 06:59 18:59 Intake Total 850 500 Balance 850 500 Weight 90.718 kg Intake: Intake, IV Titration 850 250 Amount Sodium Chloride 0.9% 1, 800 000 ml @ 100 mls/hr IV . Q10H [facility] Rx#:[id number] Vancomycin 1,500 mg In 250 Sodium Chloride 0.9% 250 ml @ 125 mls/hr IVPB Q24H [facility] Rx#:[id number] cefTRIAXone 1 gm In 50 Sodium Chloride 0.9% 50 ml @ 100 mls/hr IVPB Q24H [facility] Rx#:[id number] Oral 250 Other: Voiding Method Urinal Urinal Diaper Diaper Incontinent Incontinent # Voids 1 0 # Bowel Movements 1 0 - Exam -GENERAL: The patient is alert and oriented x3, not in any acute distress. obese HEENT: Pupils are round and equally reacting to light. EOMI. No scleral icterus. No conjunctival pallor. Normocephalic, atraumatic. No pharyngeal erythema. No thyromegaly. CARDIOVASCULAR: S1 and S2 present. No murmurs, rubs, or gallops. PULMONARY: Chest is clear to auscultation, no wheezing or crackles. ABDOMEN: Soft, nontender, nondistended, normoactive bowel sounds. No palpable organomegaly. MUSCULOSKELETAL: No joint swelling or deformity. -EXTREMITIES: patient refused examination of the lower extremities. Both legs are wrapped in Zi bandage NEUROLOGICAL: Patient is awake and alert 3, cranial nerves are grossly intact, motor is 5/5 in the lower and upper extremity. Sensation is intact - Labs CBC & Chem 7: 01/05/20 05:30 01/05/20 05:30 Labs: Abnormal Lab Results - Last 24 Hours (Table) 01/04/20 01/04/20 01/04/20 Range/Units 03:59 11:37 17:33 RBC (4.30-5.90) m/uL Hgb (13.0-17.5) gm/dL Hct (39.0-53.0) % MCHC (31.0-37.0) g/dL RDW (11.5-15.5) % Neutrophils # (1.3-7.7) k/uL Lymphocytes # (1.0-4.8) k/uL Carbon Dioxide (21.6-31.8) mmol/L BUN (9.0-27.0) mg/dL Est GFR (CKD-EPI)AfAm (60.0-200.0) Est GFR (CKD-EPI)NonAf (60.0-200.0) BUN/Creatinine Ratio (12.00-20.00) Ratio Glucose (70-110) mg/dL POC Glucose (mg/dL) 244 H 241 H (75-99) mg/dL Hemoglobin A1c 7.2 H (4.0-6.0) % Calcium (8.7-10.3) mg/dL 01/04/20 01/05/20 01/05/20 Range/Units 19:45 05:30 05:30 RBC 3.11 L (4.30-5.90) m/uL Hgb 9.2 L (13.0-17.5) gm/dL Hct 30.0 L (39.0-53.0) % MCHC 30.8 L (31.0-37.0) g/dL RDW 17.3 H (11.5-15.5) % Neutrophils # 8.5 H (1.3-7.7) k/uL Lymphocytes # 0.5 L (1.0-4.8) k/uL Carbon Dioxide 32.9 H (21.6-31.8) mmol/L BUN 51.0 H (9.0-27.0) mg/dL Est GFR (CKD-EPI)AfAm 56.6 L (60.0-200.0) Est GFR (CKD-EPI)NonAf 48.8 L (60.0-200.0) BUN/Creatinine Ratio 36.43 H (12.00-20.00) Ratio Glucose 182 H (70-110) mg/dL POC Glucose (mg/dL) 225 H (75-99) mg/dL Hemoglobin A1c (4.0-6.0) % Calcium 8.6 L (8.7-10.3) mg/dL 01/05/20 Range/Units 06:57 RBC (4.30-5.90) m/uL Hgb (13.0-17.5) gm/dL Hct (39.0-53.0) % MCHC (31.0-37.0) g/dL RDW (11.5-15.5) % Neutrophils # (1.3-7.7) k/uL Lymphocytes # (1.0-4.8) k/uL Carbon Dioxide (21.6-31.8) mmol/L BUN (9.0-27.0) mg/dL Est GFR (CKD-EPI)AfAm (60.0-200.0) Est GFR (CKD-EPI)NonAf (60.0-200.0) BUN/Creatinine Ratio (12.00-20.00) Ratio Glucose (70-110) mg/dL POC Glucose (mg/dL) 178 H (75-99) mg/dL Hemoglobin A1c (4.0-6.0) % Calcium (8.7-10.3) mg/dL Microbiology - Last 24 Hours (Table) 01/04/20 15:06 Wound Culture - Preliminary Foot - Left 01/03/20 16:25 Blood Culture - Preliminary Blood No Growth after 24 hours Assessment and Plan Assessment: Bilateral lower extremity ulceration and cellulitis with Pseudomonas from the wound cultures. peripheral vascular disease status post revascularization surgery in the past Chronic kidney disease, stage II-III Chronic atrial fibrillation History of coronary artery disease Chronic congestive heart failure with unknown ejection fraction Chronic obstructive pulmonary disease, not in acute exacerbation Type 2 diabetes mellitus Diabetic neuropathy Hypertension Hyperlipidemia Osteoarthritis Sleep apnea Pulmonary hypertension Mitral regurgitation Chronic hypoxic respiratory failure and 2 L oxygen via nasal cannula History of depression obesity Plan: this is a pleasant 74 years old male who presents with bilateral lower extremity cellulitis.follow-up with vascular surgery. patient will need antibiotics but consult infectious disease and follow-up with their recommendation.continue with aspirin and Plavix Labs and medication were reviewed.. Continue same treatment. Continue with symptomatic treatment. Resume home medication. Monitor lytes and vitals. DVT and GI prophylaxis. Further recommendations depends on the clinical course of the patient DVT prophylaxis: Subcutaneous heparin GI Prophylaxis: Ppi PT/OT: Pending
[2020-01-05] MEDS: traMADol 50 MG TAB PO PRN ×2 (11:47→19:21)
[2020-01-05 12:29] LABS: Glucose,Whole Blood 218 mg/dL (75-99)
[2020-01-05 17:20] LABS: Glucose,Whole Blood 256 mg/dL (75-99)
[2020-01-05] MEDS: VANCOMYCIN 1,500 MG in SODIUM CHLORIDE 0.9% 250 ML IVPB SCH (17:27)
[2020-01-05 20:22] LABS: Glucose,Whole Blood 201 mg/dL (75-99)
[2020-01-05] MEDS ORDERED: HYDROmorphone 0.5 MG/0.5 ML SYRINGE IVP STA (20:39)
[2020-01-05] MEDS: INSULIN DETEMIR (LEVEMIR) 100 UNIT/ML SYR SQ SCH (20:53)
[2020-01-05] MEDS: ATORVASTATIN 40 MG TAB PO SCH (20:53)
--- NOTE | 2020-01-05 23:29 | US ---
EXAMINATION TYPE: US venous doppler duplex LE DATE OF EXAM: 01/05/2020 10:35 PM COMPARISON: NONE CLINICAL HISTORY: Rule out DVT. wounds bilateral lower legs SIDE PERFORMED: Bilateral TECHNIQUE: The lower extremity deep venous system is examined utilizing real time linear array sonog maurilio with graded compression, doppler sonography and color-flow sonography. VESSELS IMAGED: External Iliac Vein (EIV) Common Femoral Vein Deep Femoral Vein Greater Saphenous Vein * Femoral Vein Popliteal Vein Small Saphenous Vein * Proximal Calf Veins (* superficial vessels) *Technical limitations due to patient's body habitus and patient position Right Leg: no evidence of DVT as visualized Left Leg: no evidence of DVT as visualized IMPRESSION: No sign of deep vein thrombosis in both legs.
--- NOTE | 2020-01-06 01:36 | PN ---
PROGRESS NOTE DATE OF SERVICE: 01/05/2020 REASON FOR FOLLOWUP: Bilateral lower extremity wound, concern for left lower extremity cellulitis. INTERVAL HISTORY: The patient is currently afebrile. The patient is breathing comfortably. Overall pain and discomfort to the left leg, slightly decreased. No chest pain or shortness of breath or cough. No abdominal pain or diarrhea. PHYSICAL EXAMINATION: Blood pressure 154/62 with a pulse of 80, temperature 98.4. He is 93% on 4 L nasal cannula. General description is an elderly male lying in bed in no distress. RESPIRATORY SYSTEM: Unlabored breathing, clear to auscultation anteriorly. HEART: S1, S2. Regular rate and rhythm. ABDOMEN: Soft, no tenderness. Legs are currently wrapped up, no . LABS: Hemoglobin is 9.2, white count 10.3, creatinine is 1.4. Blood culture negative. Local wound culture pending. DIAGNOSTIC IMPRESSION AND PLAN: Patient with bilateral lower extremity wounds with concern for cellulitis of left extremity. Culture has been obtained, wait for them to finalize. White count and fever responded to cefepime and vancomycin, to continue. at the bedside. Multiple questions, those were answered. Time spent has been greater than 25 minutes. MMODL / IJN: [id number] /
[2020-01-06 04:45] LABS: Anisocytosis Slight; Basophils % (A) 0 %; Eosinophils # (A) 0.9 k/uL (0-0.7); Eosinophils % (A) 8 %; HCT 30.6 % (39.0-53.0); HGB 9.4 gm/dL (13.0-17.5); Hypochromasia Moderate; Lymphocytes # (A) 0.5 k/uL (1.0-4.8); Lymphocytes % (A) 4 %; MCH 29.6 pg (25.0-35.0); MCHC 30.7 g/dL (31.0-37.0); MCV 96.4 fL (80.0-100.0); Macrocytosis Slight; Mean Platelet Volume 7.2; Monocytes # (A) 0.4 k/uL (0-1.0); Monocytes % (A) 4 %; Neutrophils # (A) 9.7 k/uL (1.3-7.7); Neutrophils % (A) 84 %; Platelet Count 205 k/uL (150-450); RBC 3.17 m/uL (4.30-5.90); RDW 17.3 % (11.5-15.5); WBC 11.6 k/uL (3.8-10.6)
[2020-01-06] MEDS: HYDROmorphone 0.5 MG/0.5 ML SYRINGE IVP PRN ×3 (05:48→15:36)
[2020-01-06 07:09] LABS: Glucose,Whole Blood 173 mg/dL (75-99)
--- NOTE | 2020-01-06 07:41 | XR ---
EXAMINATION TYPE: XR chest 1V DATE OF EXAM: 01/06/2020 COMPARISON: 01/03/2020 HISTORY: Shortness of breath TECHNIQUE: Single frontal view of the chest is obtained. FINDINGS: There is a diffuse interstitial pattern with basilar consolidation on the left. Postoperat enmanuel change and cardiomegaly noted. No pneumothorax. No sizable pleural effusion. IMPRESSION: 1. Correlate for venous congestion or interstitial pneumonitis. 2. Left basilar and upper lobe infiltrate.
[2020-01-06] MEDS: LACTOBACILLUS ACIDOPH & BULGAR 1 EACH PACKET PO SCH (07:43)
[2020-01-06] MEDS: PANTOPRAZOLE 40 MG TABLET PO SCH (07:43)
[2020-01-06] MEDS: ASPIRIN 81 MG PO SCH (07:43)
[2020-01-06] MEDS: MULTIVITAMINS, THERA 1 EACH TAB PO SCH (07:44)
[2020-01-06] MEDS: CLOPIDOGREL 75 MG TAB PO SCH (07:44)
[2020-01-06] MEDS: GABAPENTIN 300 MG CAP PO SCH ×3 (07:44→20:43)
[2020-01-06] MEDS: INSULIN ASPART (NovoLOG) 100 UNIT/ML VIAL SQ SCH ×4 (07:44→21:00)
[2020-01-06] MEDS: METOPROLOL SUCCINATE (ER) 25 MG TAB.ER.24H PO SCH (07:44)
[2020-01-06] MEDS: FERROUS SULFATE 325 MG TAB PO SCH (07:44)
[2020-01-06] MEDS: THIAMINE 100 MG TAB PO SCH (07:45)
[2020-01-06] MEDS: ASCORBIC ACID 500 MG TAB PO SCH (07:45)
[2020-01-06] MEDS: ESCITALOPRAM 10 MG TAB PO SCH (07:45)
[2020-01-06] MEDS: HEPARIN SODIUM,PORCINE 5,000 UNIT/ML 1 ML VIAL SQ SCH ×2 (07:46→20:43)
[2020-01-06] MEDS: CEFEPIME 2 GM in SODIUM CHLORIDE 0.9% 100 ML IVPB SCH ×2 (07:46→21:00)
[2020-01-06] MEDS: MAGNESIUM OXIDE 400 MG TAB PO SCH ×2 (07:46→20:43)
[2020-01-06] MEDS: CHOLECALCIFEROL 1,000 UNIT TAB PO SCH (07:46)
[2020-01-06] MEDS: traMADol 50 MG TAB PO PRN ×2 (07:46→17:51)
[2020-01-06 10:22] LABS: African American GFR (CKD) 68.1 (60.0-200.0); Anion Gap 7.6 mmol/L (4.00-12.00); BUN/Creat Ratio 37.5 Ratio (12.00-20.00); Calcium 8.4 mg/dL (8.7-10.3); Carbon Dioxide 29.4 mmol/L (21.6-31.8); Non-African American GFR(CKD) 58.8 (60.0-200.0); Potassium 4.5 mmol/L (3.5-5.5)
[2020-01-06 12:46] LABS: Glucose,Whole Blood 223 mg/dL (75-99)
--- NOTE | 2020-01-06 12:54 | P.PN ---
Subjective Progress Note Date: 01/06/20 The patient was seen and examined at the bedside. He states he has bilateral lower extremity pain. No acute changes through the night. Bilateral lower extremities are wrapped with dressing. He had a low-grade fever yesterday evening. He is currently afebrile. Objective - Vital Signs Vital signs: Vital Signs Temp 99.6 F 01/06/20 05:00 Pulse 81 01/06/20 05:00 Resp 20 01/06/20 05:00 BP 142/65 01/06/20 05:00 Pulse Ox 95 01/06/20 05:00 Intake & Output 01/05/20 01/06/20 01/06/20 18:59 06:59 18:59 Intake Total 100 Output Total 125 Balance 100 -125 Intake: Intake, IV Titration 100 Amount Cefepime 2 gm In Sodium 100 Chloride 0.9% 100 ml @ 25 mls/hr IVPB Q12HR [facility] Rx #:[id number] Output: Urine 125 Other: Voiding Method Urinal Urinal Diaper Diaper Incontinent Incontinent # Voids 1 1 1 - Exam General appearance: The patient is alert, oriented, in no acute distress. HET: Head is normocephalic and atraumatic. Neck: Supple without lymphadenopathy. Trachea midline. Extremities: Bilateral lower extremities with dressings in place. Patient is able to move bilateral lower extremities and wiggle toes. His skin color is pink, with good capillary refill. Neurological: No focal deficits. Strength and sensation are grossly intact. - Labs CBC & Chem 7: 01/06/20 04:12 01/06/20 04:12 Labs: Abnormal Lab Results - Last 24 Hours (Table) 01/05/20 01/05/20 01/06/20 Range/Units 17:06 20:19 04:12 WBC (3.8-10.6) k/uL RBC (4.30-5.90) m/uL Hgb (13.0-17.5) gm/dL Hct (39.0-53.0) % MCHC (31.0-37.0) g/dL RDW (11.5-15.5) % Neutrophils # (1.3-7.7) k/uL Lymphocytes # (1.0-4.8) k/uL Eosinophils # (0-0.7) k/uL BUN 45.0 H (9.0-27.0) mg/dL Est GFR (CKD-EPI)NonAf 58.8 L (60.0-200.0) BUN/Creatinine Ratio 37.50 H (12.00-20.00) Ratio Glucose 159 H (70-110) mg/dL POC Glucose (mg/dL) 256 H 201 H (75-99) mg/dL Calcium 8.4 L (8.7-10.3) mg/dL 01/06/20 01/06/20 Range/Units 04:12 07:08 WBC 11.6 H (3.8-10.6) k/uL RBC 3.17 L (4.30-5.90) m/uL Hgb 9.4 L (13.0-17.5) gm/dL Hct 30.6 L (39.0-53.0) % MCHC 30.7 L (31.0-37.0) g/dL RDW 17.3 H (11.5-15.5) % Neutrophils # 9.7 H (1.3-7.7) k/uL Lymphocytes # 0.5 L (1.0-4.8) k/uL Eosinophils # 0.9 H (0-0.7) k/uL BUN (9.0-27.0) mg/dL Est GFR (CKD-EPI)NonAf (60.0-200.0) BUN/Creatinine Ratio (12.00-20.00) Ratio Glucose (70-110) mg/dL POC Glucose (mg/dL) 173 H (75-99) mg/dL Calcium (8.7-10.3) mg/dL Microbiology - Last 24 Hours (Table) 01/03/20 16:25 Blood Culture - Preliminary Blood No Growth after 48 hours 01/04/20 15:06 Gram Stain - Preliminary Foot - Left Wound Culture - Preliminary Assessment and Plan Assessment: 1. Bilateral lower extremity wounds 2. Bilateral lower extremity edema 3. Peripheral arterial disease 4. COPD 5. Chronic atrial fibrillation 6. Chronic kidney disease Plan: There is no vascular surgical intervention indicated at this time. Continue bilateral lower extremity dressing changes. Antibiotics per recommendation from infectious disease. Await culture results. We will sign off at this time, patient can follow-up with Dr. Burrell in the office in the next 1-2 weeks. The impression and plan of care has been dictated as directed. Dr. Dover I performed a history and examination of this patient, discussed the same with the dictator. I agree with the dictator's note ,documented as a scribe. Any additional findings or plans will be noted.
--- NOTE | 2020-01-06 14:06 | P.PN ---
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 Liver enzymes , urine analysis on chest x-ray showing no si gns of infection. EKG showing normal sinus rhythm with no significant ST-T changes On admission patient was started on Rocephin 1 g daily.and IV vancomycin. Also he was started on normal sinus 100 mL/h which was stopped. vascular surgery team were consulted from emergency room she states that he lives at home for the last 3 months after he came from [facility]. He came to the hospital because of infection and also recommended from his left leg wound, both legs are wrapped in a bandage and patient refused me examine his legs. patient denies chest pain or dyspnea, no abdominal pain, no vomiting, no back pain. No headache. Patient feels generally weak patient denies smoking, alcohol or illicit drugs Chest x-ray: No acute process.EKG showing in the emergency room patient was started on Rocephin and vancomycin 01/05/2020 Patient lying comfortable in bed, he still complaining from pain in his feet, patient states that he was unable to walk for 2 weeks because of pain in his feet, I offered to do physical therapy for the patient but he is hesitant because of his pain. Patient is able to move his knees and lower extremity symmetric currently and with no significant weakness. Both lower extremity are wrapped in Zi bandage, patient refused to be unwrapped. As per Dr. Dill noticed yesterday that looks better than before. No more fever. No leukocytosis. Patient remains on broad-spectrum antibiotics. Creatinine is a stable and 1.4 and he remains on ceftriaxone on IV vancomycin. WBC came down from 13 down to normal at 10.3k.. Glucose is controlled 01/06/2020 Still complaining of from significant pain in his both feet. His infection looks improving gradually and slowly, however he still spiked fever yesterday and infectious disease adjusted his antibiotic from Rocephin to cefepime, continue with IV vancomycin. Vital signs stable. Hemoglobin A1c is 7.2%. Still has leukocytosis at 11.6 K. Wound culture is pending Venous Doppler of the lower extremity negative for DVT. Chest x-ray showing left basilar and upper lobe infiltrate correlate for venous congestion or in testinal pneumonitis. Patient remains on broad-spectrum antibiotics. Discussed with the staff, called and stated that she cannot take care of the patient anymore. However due to multiple medical problems and advancement complex disease family are discussing with the patient palliative consult on possible hospice care. Objective - Vital Signs Vital signs: Vital Signs Temp 99.6 F 01/06/20 13:00 Pulse 80 01/06/20 13:00 Resp 20 01/06/20 13:00 BP 138/60 01/06/20 13:00 Pulse Ox 97 01/06/20 13:00 Intake & Output 01/05/20 01/06/20 01/06/20 18:59 06:59 18:59 Intake Total 100 Output Total 125 Balance 100 -125 Intake: Intake, IV Titration 100 Amount Cefepime 2 gm In Sodium 100 Chloride 0.9% 100 ml @ 25 mls/hr IVPB Q12HR [facility] Rx #:[id number] Output: Urine 125 Other: Voiding Method Urinal Urinal Diaper Diaper Incontinent Incontinent # Voids 1 1 1 - Exam -GENERAL: The patient is alert and oriented x3, not in any acute distress. obese HEENT: Pupils are round and equally reacting to light. EOMI. No scleral icterus. No conjunctival pallor. Normocephalic, atraumatic. No pharyngeal erythema. No thyromegaly. CARDIOVASCULAR: S1 and S2 present. No murmurs, rubs, or gallops. PULMONARY: Chest is clear to auscultation, no wheezing or crackles. ABDOMEN: Soft, nontender, nondistended, normoactive bowel sounds. No palpable organomegaly. MUSCULOSKELETAL: No joint swelling or deformity. -EXTREMITIES: patient refused examination of the lower extremities. Both legs are wrapped in Zi bandage NEUROLOGICAL: Patient is awake and alert 3, cranial nerves are grossly intact, motor is 5/5 in the lower and upper extremity. Sensation is intact - Labs CBC & Chem 7: 01/06/20 04:12 01/06/20 04:12 Labs: Abnormal Lab Results - Last 24 Hours (Table) 01/05/20 01/05/20 01/06/20 Range/Units 17:06 20:19 04:12 WBC (3.8-10.6) k/uL RBC (4.30-5.90) m/uL Hgb (13.0-17.5) gm/dL Hct (39.0-53.0) % MCHC (31.0-37.0) g/dL RDW (11.5-15.5) % Neutrophils # (1.3-7.7) k/uL Lymphocytes # (1.0-4.8) k/uL Eosinophils # (0-0.7) k/uL BUN 45.0 H (9.0-27.0) mg/dL Est GFR (CKD-EPI)NonAf 58.8 L (60.0-200.0) BUN/Creatinine Ratio 37.50 H (12.00-20.00) Ratio Glucose 159 H (70-110) mg/dL POC Glucose (mg/dL) 256 H 201 H (75-99) mg/dL Calcium 8.4 L (8.7-10.3) mg/dL 01/06/20 01/06/20 01/06/20 Range/Units 04:12 07:08 12:43 WBC 11.6 H (3.8-10.6) k/uL RBC 3.17 L (4.30-5.90) m/uL Hgb 9.4 L (13.0-17.5) gm/dL Hct 30.6 L (39.0-53.0) % MCHC 30.7 L (31.0-37.0) g/dL RDW 17.3 H (11.5-15.5) % Neutrophils # 9.7 H (1.3-7.7) k/uL Lymphocytes # 0.5 L (1.0-4.8) k/uL Eosinophils # 0.9 H (0-0.7) k/uL BUN (9.0-27.0) mg/dL Est GFR (CKD-EPI)NonAf (60.0-200.0) BUN/Creatinine Ratio (12.00-20.00) Ratio Glucose (70-110) mg/dL POC Glucose (mg/dL) 173 H 223 H (75-99) mg/dL Calcium (8.7-10.3) mg/dL Microbiology - Last 24 Hours (Table) 01/03/20 16:25 Blood Culture - Preliminary Blood No Growth after 48 hours 01/04/20 15:06 Gram Stain - Preliminary Foot - Left Wound Culture - Preliminary Assessment and Plan Assessment: Bilateral lower extremity ulceration and cellulitis with Pseudomonas from the wound cultures. Left upper and lower lobe pneumonia peripheral vascular disease status post revascularization surgery in the past Chronic kidney disease, stage II-III Chronic atrial fibrillation History of coronary artery disease Chronic congestive heart failure with unknown ejection fraction Chronic obstructive pulmonary disease, not in acute exacerbation Type 2 diabetes mellitus Diabetic neuropathy Hypertension Hyperlipidemia Osteoarthritis Sleep apnea Pulmonary hypertension Mitral regurgitation Chronic hypoxic respiratory failure and 2 L oxygen via nasal cannula History of depression obesity Plan: this is a pleasant 74 years old male who presents with bilateral lower extremity cellulitis.follow-up with vascular surgery. patient will need antibiotics but consult infectious disease and follow-up with their recommendation.continue with aspirin and Plavix. Family are discussing with patient palliative care consult and possible hospice care Labs and medication were reviewed.. Continue same treatment. Continue with symptomatic treatment. Resume home medication. Monitor lytes and vitals. DVT and GI prophylaxis. Further recommendations depends on the clinical course of the patient DVT prophylaxis: Subcutaneous heparin GI Prophylaxis: Ppi PT/OT: Pending
[2020-01-06 17:29] LABS: Glucose,Whole Blood 152 mg/dL (75-99)
[2020-01-06] MEDS: VANCOMYCIN 1,500 MG in SODIUM CHLORIDE 0.9% 250 ML IVPB SCH (17:51)
[2020-01-06 20:34] LABS: Glucose,Whole Blood 163 mg/dL (75-99)
[2020-01-06] MEDS: ACETAMINOPHEN TAB 325 MG TAB PO PRN (20:41)
[2020-01-06] MEDS: ATORVASTATIN 40 MG TAB PO SCH (20:43)
[2020-01-06] MEDS: FUROSEMIDE 10 MG/ML 4 ML VIAL IV SCH (20:58)
[2020-01-06] MEDS: INSULIN DETEMIR (LEVEMIR) 100 UNIT/ML SYR SQ SCH (20:59)
[2020-01-06] MEDS ORDERED: AZITHROMYCIN 500 MG in SODIUM CHLORIDE 0.9% 250 ML IVPB ONE (23:00)
[2020-01-06 23:11] LABS: C Reactive Protein 86.8 mg/L (<10.0)
--- NOTE | 2020-01-07 01:23 | PN ---
PROGRESS NOTE DATE OF SERVICE: 01/06/2020 REASON FOR FOLLOWUP: Left leg wound and cellulitis. INTERVAL HISTORY: The patient is currently afebrile. The patient is breathing comfortably. Denies having any chest pain or shortness of breath or cough. Feeling slightly better and no worsening pain to the left foot area. No abdominal pain or diarrhea. PHYSICAL EXAMINATION: Blood pressure 138/60 with a pulse of 80, temperature 99.6. He is 97% on 5 L nasal cannula. General description is an elderly male lying in bed in no distress. RESPIRATORY SYSTEM: Unlabored breathing, clear to auscultation anteriorly. HEART: S1, S2. Regular rate and rhythm. ABDOMEN: Soft, no tenderness. Legs are currently wrapped up, no obvious drainage on the dressing. LABS: Hemoglobin 9.4, white count 11.6, creatinine is 1.2. Wound culture so far negative. Blood culture negative. DIAGNOSTIC IMPRESSION AND PLAN: Patient with low-grade fever, elevated white count with concern for possible left lower extremity wound and cellulitis in this patient previously has infection with Pseudomonas and MRSA, covered with vancomycin and cefepime to continue and monitor clinical course closely. MMODL / IJN: [id number] /
[2020-01-07 05:35] LABS: Anisocytosis Slight; Basophils # (A) 0.1 k/uL (0-0.2); Basophils % (A) 1 %; Eosinophils % (A) 10 %; HCT 30.5 % (39.0-53.0); HGB 9.3 gm/dL (13.0-17.5); Hypochromasia Marked; Lymphocytes # (A) 0.3 k/uL (1.0-4.8); Lymphocytes % (A) 3 %; MCH 30.3 pg (25.0-35.0); MCHC 30.5 g/dL (31.0-37.0); MCV 99.4 fL (80.0-100.0); Macrocytosis Slight; Mean Platelet Volume 8.5; Monocytes # (A) 0.6 k/uL (0-1.0); Monocytes % (A) 6 %; Neutrophils # (A) 8.1 k/uL (1.3-7.7); Neutrophils % (A) 80 %; Platelet Count 193 k/uL (150-450); RBC 3.07 m/uL (4.30-5.90); RDW 17.3 % (11.5-15.5)
[2020-01-07 07:40] LABS: Glucose,Whole Blood 111 mg/dL (75-99)
[2020-01-07] MEDS: INSULIN ASPART (NovoLOG) 100 UNIT/ML VIAL SQ SCH ×4 (08:02→21:33)
[2020-01-07] MEDS: MAGNESIUM OXIDE 400 MG TAB PO SCH ×2 (08:17→21:19)
[2020-01-07] MEDS: GABAPENTIN 300 MG CAP PO SCH ×3 (08:17→21:19)
[2020-01-07] MEDS: ASCORBIC ACID 500 MG TAB PO SCH (08:17)
[2020-01-07] MEDS: HEPARIN SODIUM,PORCINE 5,000 UNIT/ML 1 ML VIAL SQ SCH ×2 (08:17→21:19)
[2020-01-07] MEDS: FERROUS SULFATE 325 MG TAB PO SCH (08:18)
[2020-01-07] MEDS: CLOPIDOGREL 75 MG TAB PO SCH (08:18)
[2020-01-07] MEDS: ASPIRIN 81 MG PO SCH (08:18)
[2020-01-07] MEDS: FUROSEMIDE 10 MG/ML 4 ML VIAL IV SCH ×2 (08:18→21:20)
[2020-01-07] MEDS: ESCITALOPRAM 10 MG TAB PO SCH (08:18)
[2020-01-07] MEDS: CEFEPIME 2 GM in SODIUM CHLORIDE 0.9% 100 ML IVPB SCH ×2 (08:18→21:20)
[2020-01-07] MEDS: THIAMINE 100 MG TAB PO SCH (08:18)
[2020-01-07] MEDS: PANTOPRAZOLE 40 MG TABLET PO SCH (08:18)
[2020-01-07] MEDS: LACTOBACILLUS ACIDOPH & BULGAR 1 EACH PACKET PO SCH (08:19)
[2020-01-07] MEDS: MULTIVITAMINS, THERA 1 EACH TAB PO SCH (08:19)
[2020-01-07] MEDS: METOPROLOL SUCCINATE (ER) 25 MG TAB.ER.24H PO SCH (08:19)
[2020-01-07] MEDS: CHOLECALCIFEROL 1,000 UNIT TAB PO SCH (08:21)
[2020-01-07 09:17] LABS: African American GFR (CKD) 68.1 (60.0-200.0); Albumin/Globulin Ratio 1.15 (1.60-3.17); Anion Gap 8.4 mmol/L (4.00-12.00); BUN/Creat Ratio 31.67 Ratio (12.00-20.00); Calcium 8.4 mg/dL (8.7-10.3); Carbon Dioxide 28.6 mmol/L (21.6-31.8); Globulin 2.6 g/dL (1.6-3.3); Non-African American GFR(CKD) 58.8 (60.0-200.0); Potassium 4.3 mmol/L (3.5-5.5); Total Bilirubin 0.4 mg/dL (0.2-1.2); Total Protein 5.6 g/dL (6.2-8.2)
[2020-01-07] MEDS: HYDROmorphone 0.5 MG/0.5 ML SYRINGE IVP PRN (10:46)
[2020-01-07 11:41] LABS: Glucose,Whole Blood 183 mg/dL (75-99)
--- NOTE | 2020-01-07 13:10 | P.PN ---
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 Liver enzymes , urine analysis on chest x-ray showing no si gns of infection. EKG showing normal sinus rhythm with no significant ST-T changes On admission patient was started on Rocephin 1 g daily.and IV vancomycin. Also he was started on normal sinus 100 mL/h which was stopped. vascular surgery team were consulted from emergency room she states that he lives at home for the last 3 months after he came from [facility]. He came to the hospital because of infection and also recommended from his left leg wound, both legs are wrapped in a bandage and patient refused me examine his legs. patient denies chest pain or dyspnea, no abdominal pain, no vomiting, no back pain. No headache. Patient feels generally weak patient denies smoking, alcohol or illicit drugs Chest x-ray: No acute process.EKG showing in the emergency room patient was started on Rocephin and vancomycin 01/05/2020 Patient lying comfortable in bed, he still complaining from pain in his feet, patient states that he was unable to walk for 2 weeks because of pain in his feet, I offered to do physical therapy for the patient but he is hesitant because of his pain. Patient is able to move his knees and lower extremity symmetric currently and with no significant weakness. Both lower extremity are wrapped in Zi bandage, patient refused to be unwrapped. As per Dr. Dill noticed yesterday that looks better than before. No more fever. No leukocytosis. Patient remains on broad-spectrum antibiotics. Creatinine is a stable and 1.4 and he remains on ceftriaxone on IV vancomycin. WBC came down from 13 down to normal at 10.3k.. Glucose is controlled 01/06/2020 Still complaining of from significant pain in his both feet. His infection looks improving gradually and slowly, however he still spiked fever yesterday and infectious disease adjusted his antibiotic from Rocephin to cefepime, continue with IV vancomycin. Vital signs stable. Hemoglobin A1c is 7.2%. Still has leukocytosis at 11.6 K. Wound culture is pending Venous Doppler of the lower extremity negative for DVT. Chest x-ray showing left basilar and upper lobe infiltrate correlate for venous congestion or in testinal pneumonitis. Patient remains on broad-spectrum antibiotics. Discussed with the staff, called and stated that she cannot take care of the patient anymore. However due to multiple medical problems and advancement complex disease family are discussing with the patient palliative consult on possible hospice care. 01/07/2020 Patient still being treated for infection in his lower extremity,is still on cefepime and IV vancomycin. He spiked fever of 101.7 yesterday. also he is still on 5 L oxygen via nasal cannula and saturating 92%. Chest x- ray from yesterday showing venous congestion with left basilar and upper lobe infiltrate. Repeat chest x-ray today. No leukocytosis. And BMP is unremarkable. His creatinine is 1.2.pro calcitonin is improving I called the Mrs. Brissa Anderson at [phone] and left a message to call me back. Discussed with staff including nursing and social services coordinator. Objective - Vital Signs Vital signs: Vital Signs Temp 99.0 F 01/07/20 12:37 Pulse 81 01/07/20 12:37 Resp 19 01/07/20 12:37 BP 139/70 01/07/20 12:37 Pulse Ox 92 L 01/07/20 12:37 Intake & Output 01/06/20 01/07/20 01/07/20 18:59 06:59 18:59 Intake Total 100 950 Output Total 125 100 Balance -25 850 Intake: Intake, IV Titration 100 600 Amount Azithromycin 500 mg In 250 Sodium Chloride 0.9% 250 ml @ 250 mls/hr IVPB ONCE ONE Rx#:[id number] Cefepime 2 gm In Sodium 100 100 Chloride 0.9% 100 ml @ 25 mls/hr IVPB Q12HR [facility] Rx #:[id number] Vancomycin 1,500 mg In 250 Sodium Chloride 0.9% 250 ml @ 125 mls/hr IVPB Q24H [facility] Rx#:[id number] Oral 350 Output: Urine 125 100 Other: Voiding Method Urinal Urinal Urinal Diaper Diaper Diaper Incontinent Incontinent Incontinent # Voids 1 1 # Bowel Movements 0 - Exam -GENERAL: The patient is alert and oriented x3, not in any acute distress. obese HEENT: Pupils are round and equally reacting to light. EOMI. No scleral icterus. No conjunctival pallor. Normocephalic, atraumatic. No pharyngeal erythema. No thyromegaly. CARDIOVASCULAR: S1 and S2 present. No murmurs, rubs, or gallops. PULMONARY: Chest is clear to auscultation, no wheezing or crackles. ABDOMEN: Soft, nontender, nondistended, normoactive bowel sounds. No palpable organomegaly. MUSCULOSKELETAL: No joint swelling or deformity. -EXTREMITIES: patient refused examination of the lower extremities. Both legs are wrapped in Zi bandage NEUROLOGICAL: Patient is awake and alert 3, cranial nerves are grossly intact, motor is 5/5 in the lower and upper extremity. Sensation is intact - Labs CBC & Chem 7: 01/07/20 04:07 01/07/20 04:07 Labs: Abnormal Lab Results - Last 24 Hours (Table) 01/06/20 01/06/20 01/06/20 Range/Units 17:25 20:32 22:44 RBC (4.30-5.90) m/uL Hgb (13.0-17.5) gm/dL Hct (39.0-53.0) % MCHC (31.0-37.0) g/dL RDW (11.5-15.5) % Neutrophils # (1.3-7.7) k/uL Lymphocytes # (1.0-4.8) k/uL Eosinophils # (0-0.7) k/uL BUN (9.0-27.0) mg/dL Est GFR (CKD-EPI)NonAf (60.0-200.0) BUN/Creatinine Ratio (12.00-20.00) Ratio POC Glucose (mg/dL) 152 H 163 H (75-99) mg/dL Calcium (8.7-10.3) mg/dL Lactate Dehydrogenase 867 H (313-618) U/L C-Reactive Protein 86.8 H (<10.0) mg/L Total Protein (6.2-8.2) g/dL Albumin (3.80-4.90) g/dL Albumin/Globulin Ratio (1.60-3.17) g/dL Procalcitonin (0.02-0.09) ng/mL 01/06/20 01/07/20 01/07/20 Range/Units 22:44 04:07 04:07 RBC 3.07 L (4.30-5.90) m/uL Hgb 9.3 L (13.0-17.5) gm/dL Hct 30.5 L (39.0-53.0) % MCHC 30.5 L (31.0-37.0) g/dL RDW 17.3 H (11.5-15.5) % Neutrophils # 8.1 H (1.3-7.7) k/uL Lymphocytes # 0.3 L (1.0-4.8) k/uL Eosinophils # 1.0 H (0-0.7) k/uL BUN 38.0 H (9.0-27.0) mg/dL Est GFR (CKD-EPI)NonAf 58.8 L (60.0-200.0) BUN/Creatinine Ratio 31.67 H (12.00-20.00) Ratio POC Glucose (mg/dL) (75-99) mg/dL Calcium 8.4 L (8.7-10.3) mg/dL Lactate Dehydrogenase (313-618) U/L C-Reactive Protein (<10.0) mg/L Total Protein 5.6 L (6.2-8.2) g/dL Albumin 3.00 L (3.80-4.90) g/dL Albumin/Globulin Ratio 1.15 L (1.60-3.17) g/dL Procalcitonin 0.27 H (0.02-0.09) ng/mL 01/07/20 01/07/20 Range/Units 07:37 11:38 RBC (4.30-5.90) m/uL Hgb (13.0-17.5) gm/dL Hct (39.0-53.0) % MCHC (31.0-37.0) g/dL RDW (11.5-15.5) % Neutrophils # (1.3-7.7) k/uL Lymphocytes # (1.0-4.8) k/uL Eosinophils # (0-0.7) k/uL BUN (9.0-27.0) mg/dL Est GFR (CKD-EPI)NonAf (60.0-200.0) BUN/Creatinine Ratio (12.00-20.00) Ratio POC Glucose (mg/dL) 111 H 183 H (75-99) mg/dL Calcium (8.7-10.3) mg/dL Lactate Dehydrogenase (313-618) U/L C-Reactive Protein (<10.0) mg/L Total Protein (6.2-8.2) g/dL Albumin (3.80-4.90) g/dL Albumin/Globulin Ratio (1.60-3.17) g/dL Procalcitonin (0.02-0.09) ng/mL Microbiology - Last 24 Hours (Table) 01/04/20 15:06 Gram Stain - Final Foot - Left Wound Culture - Final 01/03/20 16:25 Blood Culture - Preliminary Blood No Growth after 72 hours Assessment and Plan Assessment: Bilateral lower extremity ulceration and cellulitis with Pseudomonas from the wound cultures. Left upper and lower lobe pneumonia peripheral vascular disease status post revascularization surgery in the past Chronic kidney disease, stage II-III Chronic atrial fibrillation History of coronary artery disease Chronic congestive heart failure with unknown ejection fraction Chronic obstructive pulmonary disease, not in acute exacerbation Type 2 diabetes mellitus Diabetic neuropathy Hypertension Hyperlipidemia Osteoarthritis Sleep apnea Pulmonary hypertension Mitral regurgitation Chronic hypoxic respiratory failure and 2 L oxygen via nasal cannula History of depression obesity Plan: this is a pleasant 74 years old male who presents with bilateral lower extremity cellulitis.follow-up with vascular surgery. patient will need antibiotics but consult infectious disease and follow-up with their recommendation.continue with aspirin and Plavix. Family are discussing with patient palliative care consult and possible hospice care Labs and medication were reviewed.. Continue same treatment. Continue with symptomatic treatment. Resume home medication. Monitor lytes and vitals. DVT and GI prophylaxis. Further recommendations depends on the clinical course of the patient DVT prophylaxis: Subcutaneous heparin GI Prophylaxis: Ppi PT/OT: Pending
--- NOTE | 2020-01-07 14:42 | XR ---
EXAMINATION TYPE: XR chest 1V DATE OF EXAM: 01/07/2020 COMPARISON: 01/06/2020 INDICATION: Follow-up hypoxia TECHNIQUE: Single frontal view of the chest is obtained. FINDINGS: The heart size is enlarged. The pulmonary vasculature is normal. Some mild peripheral infiltrate is developed along the left midlung. Sternotomy wires from prior CABG is evident IMPRESSION: 1. Mild infiltrate left peripheral lung may be some atelectasis.
[2020-01-07] MEDS: traMADol 50 MG TAB PO PRN ×2 (15:58→21:38)
[2020-01-07] MEDS ORDERED: VANCOMYCIN TROUGH DUE 1 EACH MISC MISCELLANE ONE (17:00)
[2020-01-07 17:08] LABS: Glucose,Whole Blood 236 mg/dL (75-99)
[2020-01-07 20:41] LABS: Glucose,Whole Blood 178 mg/dL (75-99)
[2020-01-07] MEDS: ATORVASTATIN 40 MG TAB PO SCH (21:19)
[2020-01-07] MEDS: INSULIN DETEMIR (LEVEMIR) 100 UNIT/ML SYR SQ SCH (21:19)
--- NOTE | 2020-01-08 01:07 | PN ---
PROGRESS NOTE DATE OF SERVICE: 01/07/2020 REASON FOR FOLLOWUP: Fever, possible pneumonia. INTERVAL HISTORY: The patient did spike a fever last night at 101.7, however, the patient is afebrile since then. The patient is breathing comfortably, though requiring supplemental oxygen though nonspecific. Denies having any chest pain or cough. No abdominal pain, no diarrhea or any worsening pain to the lower extremity wound. PHYSICAL EXAMINATION: Blood pressure 124/55 with a pulse of 77, temperature 99. He is 97% on 4 L nasal cannula. General description is an elderly male lying in bed in no distress. RESPIRATORY SYSTEM: Unlabored breathing, decreased breath sounds at the bases. No wheeze. HEART: S1, S2. Regular rate and rhythm. ABDOMEN: Soft, no tenderness. LABS: Hemoglobin 9.3, white count 10.0, BUN of 38, creatinine 1.2. Influenza PCR negative. COVID testing is pending. Left leg cultures so far negative. Chest x-ray, left peripheral lung infiltrate and some atelectasis. DIAGNOSTIC IMPRESSION AND PLAN: Patient with fever, concern for possible left-sided pneumonia. The patient is currently covered with the cefepime and doxycycline as we cannot add Zithromax or the Levaquin because of Lexapro. He was given one dose yesterday. Fever seemed to have improved. Continue supportive care. MMODL / IJN: [id number] /
[2020-01-08 05:14] LABS: Anisocytosis Slight; Basophils % (A) 0 %; Eosinophils % (A) 12 %; HCT 28.1 % (39.0-53.0); Hypochromasia Moderate; Lymphocytes # (A) 0.4 k/uL (1.0-4.8); Lymphocytes % (A) 5 %; MCH 31.3 pg (25.0-35.0); MCHC 31.9 g/dL (31.0-37.0); MCV 98.2 fL (80.0-100.0); Macrocytosis Slight; Mean Platelet Volume 7.8; Monocytes # (A) 0.5 k/uL (0-1.0); Monocytes % (A) 6 %; Neutrophils # (A) 6.5 k/uL (1.3-7.7); Neutrophils % (A) 76 %; Platelet Count 199 k/uL (150-450); RBC 2.86 m/uL (4.30-5.90); RDW 17.1 % (11.5-15.5); WBC 8.6 k/uL (3.8-10.6)
[2020-01-08 07:15] LABS: Glucose,Whole Blood 137 mg/dL (75-99)
[2020-01-08 09:43] LABS: African American GFR (CKD) 68.1 (60.0-200.0); Anion Gap 8.4 mmol/L (4.00-12.00); BUN/Creat Ratio 31.67 Ratio (12.00-20.00); Calcium 8.5 mg/dL (8.7-10.3); Carbon Dioxide 30.6 mmol/L (21.6-31.8); Non-African American GFR(CKD) 58.8 (60.0-200.0); Potassium 4.1 mmol/L (3.5-5.5)
[2020-01-08] MEDS: MAGNESIUM OXIDE 400 MG TAB PO SCH ×2 (09:58→22:30)
[2020-01-08] MEDS: MULTIVITAMINS, THERA 1 EACH TAB PO SCH (09:58)
[2020-01-08] MEDS: CHOLECALCIFEROL 1,000 UNIT TAB PO SCH (09:58)
[2020-01-08] MEDS: THIAMINE 100 MG TAB PO SCH (09:58)
[2020-01-08] MEDS: CLOPIDOGREL 75 MG TAB PO SCH (09:58)
[2020-01-08] MEDS: GABAPENTIN 300 MG CAP PO SCH ×3 (09:58→22:30)
[2020-01-08] MEDS: traMADol 50 MG TAB PO PRN ×3 (09:58→22:29)
[2020-01-08] MEDS: FERROUS SULFATE 325 MG TAB PO SCH (09:58)
[2020-01-08] MEDS: ASPIRIN 81 MG PO SCH (09:59)
[2020-01-08] MEDS: PANTOPRAZOLE 40 MG TABLET PO SCH (09:59)
[2020-01-08] MEDS: METOPROLOL SUCCINATE (ER) 25 MG TAB.ER.24H PO SCH (09:59)
[2020-01-08] MEDS: HEPARIN SODIUM,PORCINE 5,000 UNIT/ML 1 ML VIAL SQ SCH ×2 (10:00→22:29)
[2020-01-08] MEDS: FUROSEMIDE 10 MG/ML 4 ML VIAL IV SCH ×2 (10:00→22:50)
[2020-01-08] MEDS: LACTOBACILLUS ACIDOPH & BULGAR 1 EACH PACKET PO SCH (10:00)
[2020-01-08] MEDS: INSULIN ASPART (NovoLOG) 100 UNIT/ML VIAL SQ SCH ×4 (10:02→22:28)
[2020-01-08] MEDS: ASCORBIC ACID 500 MG TAB PO SCH (10:04)
[2020-01-08] MEDS: CEFEPIME 2 GM in SODIUM CHLORIDE 0.9% 100 ML IVPB SCH ×2 (10:04→22:31)
[2020-01-08] MEDS: DOXYCYCLINE 100 MG CAP PO SCH ×2 (10:06→22:30)
[2020-01-08] MEDS: ESCITALOPRAM 10 MG TAB PO SCH (10:06)
[2020-01-08 12:19] LABS: Glucose,Whole Blood 172 mg/dL (75-99)
--- NOTE | 2020-01-08 13:40 | P.PN ---
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 Liver enzymes , urine analysis on chest x-ray showing no si gns of infection. EKG showing normal sinus rhythm with no significant ST-T changes On admission patient was started on Rocephin 1 g daily.and IV vancomycin. Also he was started on normal sinus 100 mL/h which was stopped. vascular surgery team were consulted from emergency room she states that he lives at home for the last 3 months after he came from [facility]. He came to the hospital because of infection and also recommended from his left leg wound, both legs are wrapped in a bandage and patient refused me examine his legs. patient denies chest pain or dyspnea, no abdominal pain, no vomiting, no back pain. No headache. Patient feels generally weak patient denies smoking, alcohol or illicit drugs Chest x-ray: No acute process.EKG showing in the emergency room patient was started on Rocephin and vancomycin 01/05/2020 Patient lying comfortable in bed, he still complaining from pain in his feet, patient states that he was unable to walk for 2 weeks because of pain in his feet, I offered to do physical therapy for the patient but he is hesitant because of his pain. Patient is able to move his knees and lower extremity symmetric currently and with no significant weakness. Both lower extremity are wrapped in Zi bandage, patient refused to be unwrapped. As per Dr. Dill noticed yesterday that looks better than before. No more fever. No leukocytosis. Patient remains on broad-spectrum antibiotics. Creatinine is a stable and 1.4 and he remains on ceftriaxone on IV vancomycin. WBC came down from 13 down to normal at 10.3k.. Glucose is controlled 01/06/2020 Still complaining of from significant pain in his both feet. His infection looks improving gradually and slowly, however he still spiked fever yesterday and infectious disease adjusted his antibiotic from Rocephin to cefepime, continue with IV vancomycin. Vital signs stable. Hemoglobin A1c is 7.2%. Still has leukocytosis at 11.6 K. Wound culture is pending Venous Doppler of the lower extremity negative for DVT. Chest x-ray showing left basilar and upper lobe infiltrate correlate for venous congestion or in testinal pneumonitis. Patient remains on broad-spectrum antibiotics. Discussed with the staff, called and stated that she cannot take care of the patient anymore. However due to multiple medical problems and advancement complex disease family are discussing with the patient palliative consult on possible hospice care. 01/07/2020 Patient still being treated for infection in his lower extremity,is still on cefepime and IV vancomycin. He spiked fever of 101.7 yesterday. also he is still on 5 L oxygen via nasal cannula and saturating 92%. Chest x- ray from yesterday showing venous congestion with left basilar and upper lobe infiltrate. Repeat chest x-ray today. No leukocytosis. And BMP is unremarkable. His creatinine is 1.2.pro calcitonin is improving I called the Mrs. Brissa Anderson at [phone] and left a message to call me back. Discussed with staff including nursing and social media coordinator. 01/08/2020 patient is awake and alert, he looks tired. Still complaining of from some pain in his both legs. No chest pain or dyspnea while his stent in bed. His oxygen requirement came down today to 4 L. CBC and BMP look stable and creatinine normal at 1.2, sugar control. rest of vitals are stable. he is a stillon broad-spectrum antibiotics with cefepime and doxycycline. for pneumonia as chest x-ray showing an infiltrate in the left peripheral lung. Also for his bilateral leg cellulitis speech evaluation is requested and is pending. ECF is recommended for the patient by physical therapy however patient does not want to discuss it with me today, we will try later Objective - Vital Signs Vital signs: Vital Signs Temp 98.5 F 01/08/20 12:39 Pulse 75 01/08/20 12:39 Resp 20 01/08/20 12:39 BP 156/69 01/08/20 12:39 Pulse Ox 98 01/08/20 12:39 Intake & Output 01/07/20 01/08/20 01/08/20 18:59 06:59 18:59 Intake Total 960 100 Output Total 100 Balance 960 0 Weight 90.718 kg Intake: Intake, IV Titration 100 Amount Cefepime 2 gm In Sodium 100 Chloride 0.9% 100 ml @ 25 mls/hr IVPB Q12HR [facility] Rx #:[id number] Oral 960 0 Output: Urine 100 Other: Voiding Method Urinal Urinal Urinal Diaper Diaper Diaper Incontinent Incontinent Incontinent # Voids 3 0 # Bowel Movements 0 - Exam -GENERAL: The patient is alert and oriented x3, not in any acute distress. obese HEENT: Pupils are round and equally reacting to light. EOMI. No scleral icterus. No conjunctival pallor. Normocephalic, atraumatic. No pharyngeal erythema. No thyromegaly. CARDIOVASCULAR: S1 and S2 present. No murmurs, rubs, or gallops. PULMONARY: Chest is clear to auscultation, no wheezing or crackles. ABDOMEN: Soft, nontender, nondistended, normoactive bowel sounds. No palpable organomegaly. MUSCULOSKELETAL: No joint swelling or deformity. -EXTREMITIES: patient refused examination of the lower extremities. Both legs are wrapped in Zi bandage NEUROLOGICAL: Patient is awake and alert 3, cranial nerves are grossly intact, motor is 5/5 in the lower and upper extremity. Sensation is intact - Labs CBC & Chem 7: 01/08/20 04:14 01/08/20 04:14 Labs: Abnormal Lab Results - Last 24 Hours (Table) 01/07/20 01/07/20 01/08/20 Range/Units 17:04 20:39 04:14 RBC 2.86 L (4.30-5.90) m/uL Hgb 9.0 L (13.0-17.5) gm/dL Hct 28.1 L (39.0-53.0) % RDW 17.1 H (11.5-15.5) % Lymphocytes # 0.4 L (1.0-4.8) k/uL Eosinophils # 1.0 H (0-0.7) k/uL BUN (9.0-27.0) mg/dL Est GFR (CKD-EPI)NonAf (60.0-200.0) BUN/Creatinine Ratio (12.00-20.00) Ratio POC Glucose (mg/dL) 236 H 178 H (75-99) mg/dL Calcium (8.7-10.3) mg/dL 01/08/20 01/08/20 01/08/20 Range/Units 04:14 07:07 12:15 RBC (4.30-5.90) m/uL Hgb (13.0-17.5) gm/dL Hct (39.0-53.0) % RDW (11.5-15.5) % Lymphocytes # (1.0-4.8) k/uL Eosinophils # (0-0.7) k/uL BUN 38.0 H (9.0-27.0) mg/dL Est GFR (CKD-EPI)NonAf 58.8 L (60.0-200.0) BUN/Creatinine Ratio 31.67 H (12.00-20.00) Ratio POC Glucose (mg/dL) 137 H 172 H (75-99) mg/dL Calcium 8.5 L (8.7-10.3) mg/dL Microbiology - Last 24 Hours (Table) 01/06/20 22:44 Blood Culture - Preliminary Blood No Growth after 24 hours 01/03/20 16:25 Blood Culture - Preliminary Blood No Growth after 96 hours Assessment and Plan Assessment: Bilateral lower extremity ulceration and cellulitis with Pseudomonas from the wound cultures. Left upper and lower lobe pneumonia peripheral vascular disease status post revascularization surgery in the past Chronic kidney disease, stage II-III Chronic atrial fibrillation History of coronary artery disease Chronic congestive heart failure with unknown ejection fraction Chronic obstructive pulmonary disease, not in acute exacerbation Type 2 diabetes mellitus Diabetic neuropathy Hypertension Hyperlipidemia Osteoarthritis Sleep apnea Pulmonary hypertension Mitral regurgitation Chronic hypoxic respiratory failure and 2 L oxygen via nasal cannula History of depression obesity Plan: this is a pleasant 74 years old male who presents with bilateral lower extremity cellulitis.follow-up with vascular surgery. patient will need antibiotics but consult infectious disease and follow-up with their recommendation.continue with aspirin and Plavix. Family are discussing with patient palliative care consult and possible hospice care Labs and medication were reviewed.. Continue same treatment. Continue with symptomatic treatment. Resume home medication. Monitor lytes and vitals. DVT and GI prophylaxis. Further recommendations depends on the clinical course of the patient DVT prophylaxis: Subcutaneous heparin GI Prophylaxis: Ppi PT/OT: Pending
[2020-01-08 16:52] LABS: Glucose,Whole Blood 261 mg/dL (75-99)
[2020-01-08 19:54] LABS: Glucose,Whole Blood 260 mg/dL (75-99)
[2020-01-08] MEDS: ATORVASTATIN 40 MG TAB PO SCH (22:29)
[2020-01-08] MEDS: INSULIN DETEMIR (LEVEMIR) 100 UNIT/ML SYR SQ SCH (22:34)
[2020-01-09] MEDS: INSULIN ASPART (NovoLOG) 100 UNIT/ML VIAL SQ SCH ×4 (01:30→21:42)
--- NOTE | 2020-01-09 02:48 | PN ---
PROGRESS NOTE DATE OF SERVICE: 01/08/2020 REASON FOR FOLLOWUP: Fever, possible pneumonia. INTERVAL HISTORY: The patient is currently afebrile. The patient is breathing comfortably though denies having chest pain. Minimal cough. No nausea, no vomiting. No abdominal pain, no diarrhea. PHYSICAL EXAMINATION: Blood pressure 139/70 with a pulse of 80, temperature 98.6. He is 95% on 2 L nasal cannula. General description is an elderly male lying in bed in no distress. RESPIRATORY SYSTEM: Unlabored breathing, decreased breath sounds in the bases. No wheeze. HEART: S1, S2. Regular rate and rhythm. ABDOMEN: Soft, no tenderness. LABS: Hemoglobin is 9.0, hemoglobin 8.6, BUN of 38, creatinine 1.2. Blood culture has been negative. DIAGNOSTIC IMPRESSION AND PLAN: Patient admitted to the hospital with fever. Concern is for possible pneumonia. Initial concern for left lower extremity wound and cellulitis, though culture has been negative. Patient clinically responded to cefepime and the doxycycline to continue. Hopefully finish therapy with oral antibiotics. Local care to the leg wound continue per Surgery and continue supportive care. MMODL / IJN: [id number] /
[2020-01-09] MEDS: traMADol 50 MG TAB PO PRN ×2 (04:14→10:41)
[2020-01-09 06:19] LABS: Anisocytosis Slight; Basophils # (A) 0.1 k/uL (0-0.2); Basophils % (A) 1 %; Eosinophils # (A) 1.1 k/uL (0-0.7); Eosinophils % (A) 11 %; HCT 28.3 % (39.0-53.0); Hypochromasia Moderate; Lymphocytes # (A) 0.5 k/uL (1.0-4.8); Lymphocytes % (A) 5 %; MCHC 31.8 g/dL (31.0-37.0); MCV 97.4 fL (80.0-100.0); Macrocytosis Slight; Mean Platelet Volume 6.9; Monocytes # (A) 0.5 k/uL (0-1.0); Monocytes % (A) 6 %; Neutrophils # (A) 7.2 k/uL (1.3-7.7); Neutrophils % (A) 77 %; Platelet Count 201 k/uL (150-450); WBC 9.4 k/uL (3.8-10.6)
[2020-01-09 07:02] LABS: Glucose,Whole Blood 114 mg/dL (75-99)
[2020-01-09] MEDS: MAGNESIUM OXIDE 400 MG TAB PO SCH ×2 (08:59→21:42)
[2020-01-09] MEDS: ASPIRIN 81 MG PO SCH (08:59)
[2020-01-09] MEDS: MULTIVITAMINS, THERA 1 EACH TAB PO SCH (08:59)
[2020-01-09] MEDS: CHOLECALCIFEROL 1,000 UNIT TAB PO SCH (08:59)
[2020-01-09] MEDS: ASCORBIC ACID 500 MG TAB PO SCH (08:59)
[2020-01-09] MEDS: LACTOBACILLUS ACIDOPH & BULGAR 1 EACH PACKET PO SCH (08:59)
[2020-01-09] MEDS: CLOPIDOGREL 75 MG TAB PO SCH (08:59)
[2020-01-09] MEDS: METOPROLOL SUCCINATE (ER) 25 MG TAB.ER.24H PO SCH (08:59)
[2020-01-09] MEDS: CEFEPIME 2 GM in SODIUM CHLORIDE 0.9% 100 ML IVPB SCH ×2 (09:00→21:45)
[2020-01-09] MEDS: THIAMINE 100 MG TAB PO SCH (09:00)
[2020-01-09] MEDS: PANTOPRAZOLE 40 MG TABLET PO SCH (09:00)
[2020-01-09] MEDS: HEPARIN SODIUM,PORCINE 5,000 UNIT/ML 1 ML VIAL SQ SCH ×2 (09:00→21:41)
[2020-01-09] MEDS: FERROUS SULFATE 325 MG TAB PO SCH (09:00)
[2020-01-09] MEDS: GABAPENTIN 300 MG CAP PO SCH ×3 (09:00→21:42)
[2020-01-09] MEDS: ESCITALOPRAM 10 MG TAB PO SCH (09:02)
[2020-01-09] MEDS: DOXYCYCLINE 100 MG CAP PO SCH ×2 (09:02→22:34)
[2020-01-09 09:52] LABS: African American GFR (CKD) 75.7 (60.0-200.0); BUN/Creat Ratio 33.64 Ratio (12.00-20.00); Calcium 8.3 mg/dL (8.7-10.3); Non-African American GFR(CKD) 65.3 (60.0-200.0); Potassium 4.3 mmol/L (3.5-5.5)
--- NOTE | 2020-01-09 10:20 | XR ---
EXAMINATION TYPE: XR chest 2V DATE OF EXAM: 01/09/2020 COMPARISON: 01/07/2020 HISTORY: 74-year-old male pneumonia TECHNIQUE: Frontal and lateral views FINDINGS: Median sternotomy wires are present with post-CABG changes. Heart mildly enlarged. Diffuse interstiti al opacity persists with more focal patchy peripheral left mid and lower lung opacity. Opacity slight ly more confluent as compared to prior exam. No sizable effusion on the lateral view. IMPRESSION: Continued diffuse interstitial opacity. Opacity at the periphery of the left mid and lower lung is be coming more confluent. Correlate for multifocal pneumonia including the possibility of atypical pneum onias.
[2020-01-09 11:32] LABS: Glucose,Whole Blood 193 mg/dL (75-99)
--- NOTE | 2020-01-09 12:09 | CDI ---
Documentation Clarification Form Date: 01/09/2020 11:52:35 AM From: Ute Gabriel RN CCDS Admit Date: 01/03/2020 05:23:00 PM Patient Name: Deep Anderson Visit Number: [id number] Discharge Date: ATTENTION: The Clinical Documentation Specialists (CDI) and [facility] Coding Staff appreciate your assistance in clarifying documentation. Please respond to the clarification below the line at the bottom and electronically sign. The CDI & [facility] Coding staff will review the response and follow-up if needed. Please note: Queries are made part of the Legal Health Record. If you have any questions, please contact the author of this message via ITS. Dr. Murphy, Chronic congestive heart failure with unknown ejection fraction. Is documented in the H&P 01/02 History/Risk Factors: 74-year-old male presents to the ED with worsening infection of wound came in for abnormal labs and persistent pain. Medical History: COPD, chronic resp failure with home oxygen, HTN, DM2, DM neuropathy, CKD stage 2/3 and Heart Failure Clinical Indicators: 01/02 VS/Pulse OX: B/P: 137/84; HR: 80; Temp: 100.0 F Oral; RR: 18; SpO2 98% room air 01/11/19 Echocardiogram Results: Left ventricular size is normal. There is moderate concentric left ventricular hypertrophy. Overall let ventricular systolic function is low normal with, an EF between 50-55%. 01/06/20 Chest X Ray: No active cardiopulmonary disease Treatment: 01/03 Toprol XL 25mg Daily d/c 01/03; 01/04 Toprol Xl 12.5mg po daily 01/05 Lasix 40mg IV q 12hr d/c 01/07 In your professional opinion, can you please clarify the acuity and type of CHF if known? Acute on Chronic Diastolic Heart Failure Chronic Diastolic Heart Failure Acute on Chronic Systolic & Diastolic Heart Failure Chronic Systolic & Diastolic Heart Failure Unable to Determine Other, please specify (Last Revision: June 2017) Unable to Determine MTDD
--- NOTE | 2020-01-09 12:33 | CDI ---
Documentation Clarification Form Date: 01/09/2020 12:10:14 PM From: Ute Gabriel RN CCDS Admit Date: 01/03/2020 05:23:00 PM Patient Name: Deep Anderson Visit Number: [id number] Discharge Date: ATTENTION: The Clinical Documentation Specialists (CDI) and [facility] Coding Staff appreciate your assistance in clarifying documentation. Please respond to the clarification below the line at the bottom and electronically sign. The CDI & [facility] Coding staff will review the response and follow-up if needed. Please note: Queries are made part of the Legal Health Record. If you have any questions, please contact the author of this message via ITS. Dr. Villegas E Sheet The patient has diabetes, as indicated on progress note in the H&P 01/03: History/Risk Factors: 74-year-old male presents to the ED with worsening infection of wound came in for abnormal labs and persistent pain. Medical History: COPD, chronic resp failure with home oxygen, HTN, DM2, DM neuropathy, CKD stage 2/3 and Heart Failure Clinical Indicators: 01/03 H&P: Bilateral lower extremity ulceration and cellulitis with Pseudomonas from the wound cultures. 01/02 Labs Wbc 10.7, Neutrophils 8.4, Treatment: 01/02 Rocephin Ivpb Daily d/c 01/03; 01/02 Vancomycin Ivpb d/c 01/03; 01/04 Cefepime Ivpb Q 12 Hr; 01/05 Azithromycin Ivpb x1; Zi Dressings Please document any body system complications or specific manifestations related to the diabetes: Bilateral lower extremity cellulitis Associated with Diabetes No Association with Diabetes Other, please specify Unable to Determine (Last Revision: December 2016) Associated with Diabetes MTDD
--- NOTE | 2020-01-09 14:16 | P.CON ---
Consult Note - . Consult date: 01/09/20 Assessment/Plan:: his is a 74 years old male with past medical history of bilateral lower extremity ulceration and cellulitis with pseudomonas about 6 or 7 months ago, peripheral vascular disease status post revascularization surgery, chronic kidney disease stage 3, chronic atrial fibrillation, history of coronary artery disease, history of heart failure and COPD, type 2 diabetes mellitus, diabetic neuropathy, hypertension, hyperlipidemia, osteoarthritis, sleep apnea, pulmonary hypertension, mitral regurgitation, chronic hypoxic respiratory failure on 2 L oxygen via nasal cannula, history of depression. the patient complains of bilateral foot pain due to left peripheral neuropathy and previous debridement on the left foot. The patient has been using tramadol 50 mg and Tylenol plus Neurontin 800 mg a day for this pain. He also was placed on Neurontin 0.5 mg every 4 hours when necessary pain however his pain is not well controlled the above-mentioned regimen. by physical exam he is alert oriented 3 in no apparent distress. Both feet are wrapped with compression dressing.he has normal muscle strength for foot flexion-extension with some tenderness bilaterally. he patient is going to a rehabilitation center probably tomorrow. Recommendations: discontinue tramadol discontinue Tylenol 650 mg start [place] 10 mg every 4 hours when necessary pain. continue Dilaudid 0.5 mg every 4 hours when necessary severe pain. The patient may need to be placed on a bowel stimulant ( Senokot or Cate- Colace.) I thank you for the consultation
[2020-01-09] MEDS: HYDROcodone/APAP 10-325MG 1 EACH TAB PO PRN ×2 (15:19→19:20)
[2020-01-09 16:55] LABS: Glucose,Whole Blood 171 mg/dL (75-99)
--- NOTE | 2020-01-09 19:57 | P.PN ---
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 Liver enzymes , urine analysis on chest x-ray showing no si gns of infection. EKG showing normal sinus rhythm with no significant ST-T changes On admission patient was started on Rocephin 1 g daily.and IV vancomycin. Also he was started on normal sinus 100 mL/h which was stopped. vascular surgery team were consulted from emergency room she states that he lives at home for the last 3 months after he came from [facility]. He came to the hospital because of infection and also recommended from his left leg wound, both legs are wrapped in a bandage and patient refused me examine his legs. patient denies chest pain or dyspnea, no abdominal pain, no vomiting, no back pain. No headache. Patient feels generally weak patient denies smoking, alcohol or illicit drugs Chest x-ray: No acute process.EKG showing in the emergency room patient was started on Rocephin and vancomycin 01/05/2020 Patient lying comfortable in bed, he still complaining from pain in his feet, patient states that he was unable to walk for 2 weeks because of pain in his feet, I offered to do physical therapy for the patient but he is hesitant because of his pain. Patient is able to move his knees and lower extremity symmetric currently and with no significant weakness. Both lower extremity are wrapped in Zi bandage, patient refused to be unwrapped. As per Dr. Dill noticed yesterday that looks better than before. No more fever. No leukocytosis. Patient remains on broad-spectrum antibiotics. Creatinine is a stable and 1.4 and he remains on ceftriaxone on IV vancomycin. WBC came down from 13 down to normal at 10.3k.. Glucose is controlled 01/06/2020 Still complaining of from significant pain in his both feet. His infection looks improving gradually and slowly, however he still spiked fever yesterday and infectious disease adjusted his antibiotic from Rocephin to cefepime, continue with IV vancomycin. Vital signs stable. Hemoglobin A1c is 7.2%. Still has leukocytosis at 11.6 K. Wound culture is pending Venous Doppler of the lower extremity negative for DVT. Chest x-ray showing left basilar and upper lobe infiltrate correlate for venous congestion or in testinal pneumonitis. Patient remains on broad-spectrum antibiotics. Discussed with the staff, called and stated that she cannot take care of the patient anymore. However due to multiple medical problems and advancement complex disease family are discussing with the patient palliative consult on possible hospice care. 01/07/2020 Patient still being treated for infection in his lower extremity,is still on cefepime and IV vancomycin. He spiked fever of 101.7 yesterday. also he is still on 5 L oxygen via nasal cannula and saturating 92%. Chest x- ray from yesterday showing venous congestion with left basilar and upper lobe infiltrate. Repeat chest x-ray today. No leukocytosis. And BMP is unremarkable. His creatinine is 1.2.pro calcitonin is improving I called the Mrs. Brissa Anderson at [phone] and left a message to call me back. Discussed with staff including nursing and social media assistant. 01/08/2020 patient is awake and alert, he looks tired. Still complaining of from some pain in his both legs. No chest pain or dyspnea while his stent in bed. His oxygen requirement came down today to 4 L. CBC and BMP look stable and creatinine normal at 1.2, sugar control. rest of vitals are stable. he is a stillon broad-spectrum antibiotics with cefepime and doxycycline. for pneumonia as chest x-ray showing an infiltrate in the left peripheral lung. Also for his bilateral leg cellulitis speech evaluation is requested and is pending. ECF is recommended for the patient by physical therapy however patient does not want to discuss it with me today, we will try later 01/09/20 pt was sitting in chair , awake and alert, he is still complaining from pain in his feet but states this pain is chronic for more than one year however pt and wanted to see a pain specialist inhouse . his pneumonia is improving as his oxygen requirement were down to 2 l/m this morning i had a lengthy discussion with pt and at bed side and all their questions were answered to their satisfaction and plan of care with problems pt has are explained to them Objective - Vital Signs Vital signs: Vital Signs Temp 98.4 F 01/09/20 19:45 Pulse 80 01/09/20 19:45 Resp 16 01/09/20 19:45 BP 131/72 01/09/20 19:45 Pulse Ox 95 01/09/20 19:45 Intake & Output 01/09/20 01/09/20 01/10/20 06:59 18:59 06:59 Intake Total 1090 480 Output Total 400 Balance 690 480 Weight 93 kg Intake: Oral 1090 480 Output: Urine 400 Other: Voiding Method Urinal Urinal Diaper Diaper Incontinent Incontinent # Voids 2 1 - Exam -GENERAL: The patient is alert and oriented x3, not in any acute distress. obese HEENT: Pupils are round and equally reacting to light. EOMI. No scleral icterus. No conjunctival pallor. Normocephalic, atraumatic. No pharyngeal erythema. No thyromegaly. CARDIOVASCULAR: S1 and S2 present. No murmurs, rubs, or gallops. PULMONARY: Chest is clear to auscultation, no wheezing or crackles. ABDOMEN: Soft, nontender, nondistended, normoactive bowel sounds. No palpable organomegaly. MUSCULOSKELETAL: No joint swelling or deformity. -EXTREMITIES: patient refused examination of the lower extremities. Both legs are wrapped in Zi bandage NEUROLOGICAL: Patient is awake and alert 3, cranial nerves are grossly intact, motor is 5/5 in the lower and upper extremity. Sensation is intact - Labs CBC & Chem 7: 01/09/20 05:38 01/09/20 05:38 Labs: Abnormal Lab Results - Last 24 Hours (Table) 01/08/20 01/09/20 01/09/20 Range/Units 19:53 05:38 05:38 RBC 2.90 L (4.30-5.90) m/uL Hgb 9.0 L (13.0-17.5) gm/dL Hct 28.3 L (39.0-53.0) % RDW 17.0 H (11.5-15.5) % Lymphocytes # 0.5 L (1.0-4.8) k/uL Eosinophils # 1.1 H (0-0.7) k/uL BUN 37.0 H (9.0-27.0) mg/dL BUN/Creatinine Ratio 33.64 H (12.00-20.00) Ratio POC Glucose (mg/dL) 260 H (75-99) mg/dL Calcium 8.3 L (8.7-10.3) mg/dL 01/09/20 01/09/20 01/09/20 Range/Units 07:01 11:28 16:52 RBC (4.30-5.90) m/uL Hgb (13.0-17.5) gm/dL Hct (39.0-53.0) % RDW (11.5-15.5) % Lymphocytes # (1.0-4.8) k/uL Eosinophils # (0-0.7) k/uL BUN (9.0-27.0) mg/dL BUN/Creatinine Ratio (12.00-20.00) Ratio POC Glucose (mg/dL) 114 H 193 H 171 H (75-99) mg/dL Calcium (8.7-10.3) mg/dL Microbiology - Last 24 Hours (Table) 01/03/20 16:25 Blood Culture - Final Blood No Growth after 144 hours 01/06/20 22:44 Blood Culture - Preliminary Blood No Growth after 48 hours Assessment and Plan Assessment: Bilateral lower extremity ulceration and cellulitis with Pseudomonas from the wound cultures. Left upper and lower lobe pneumonia peripheral vascular disease status post revascularization surgery in the past Chronic kidney disease, stage II-III Chronic atrial fibrillation History of coronary artery disease Chronic congestive heart failure with unknown ejection fraction Chronic obstructive pulmonary disease, not in acute exacerbation Type 2 diabetes mellitus Diabetic neuropathy Hypertension Hyperlipidemia Osteoarthritis Sleep apnea Pulmonary hypertension Mitral regurgitation Chronic hypoxic respiratory failure and 2 L oxygen via nasal cannula History of depression obesity Plan: this is a pleasant 74 years old male who presents with bilateral lower extremity cellulitis.follow-up with vascular surgery. patient will need antibiotics but consult infectious disease and follow-up with their recommendation.continue with aspirin and Plavix. Family are discussing with patient palliative care consult and possible hospice care Labs and medication were reviewed.. Continue same treatment. Continue with symptomatic treatment. Resume home medication. Monitor lytes and vitals. DVT and GI prophylaxis. Further recommendations depends on the clinical course of the patient DVT prophylaxis: Subcutaneous heparin GI Prophylaxis: Ppi PT/OT: Pending
[2020-01-09 20:43] LABS: Glucose,Whole Blood 199 mg/dL (75-99)
[2020-01-09] MEDS: ATORVASTATIN 40 MG TAB PO SCH (21:42)
[2020-01-09] MEDS: INSULIN DETEMIR (LEVEMIR) 100 UNIT/ML SYR SQ SCH (22:34)
--- NOTE | 2020-01-10 00:07 | PN ---
PROGRESS NOTE DATE OF SERVICE: 01/09/2020 REASON FOR FOLLOWUP: Fever, likely pneumonia. INTERVAL HISTORY: The patient is currently afebrile. The patient is breathing comfortably. The patient denies having any chest pain. Minimal cough. No nausea, no vomiting. No abdominal pain, no diarrhea. PHYSICAL EXAMINATION: Blood pressure 131/72 with a pulse of 80, temperature 98.4. He is 95% on 2 L nasal cannula. General description is an elderly male lying in bed in no distress. RESPIRATORY SYSTEM: Unlabored breathing, decreased breath sounds at the bases. No wheeze. HEART: S1, S2. Regular rate and rhythm. ABDOMEN: Soft, no tenderness. LABS: BUN of , creatinine is 1.1, hemoglobin is 9, white count 9.4. DIAGNOSTIC IMPRESSION AND PLAN: Patient with a fever concern likely for pneumonia as no other obvious focus of infection. Patient clinically responded to the cefepime, doxycycline, finish therapy with oral Ceftin. Local care to the leg to continue per Vascular Surgery. His care was discussed in detail with the on the phone. MMODL / IJN: [id number] /
[2020-01-10 04:40] VITALS: PULSE 72; RESP 18
[2020-01-10 06:14] LABS: Anisocytosis Slight; Basophils % (A) 0 %; Eosinophils % (A) 11 %; HGB 9.2 gm/dL (13.0-17.5); Hypochromasia Marked; Lymphocytes # (A) 0.6 k/uL (1.0-4.8); Lymphocytes % (A) 7 %; MCH 29.4 pg (25.0-35.0); MCHC 29.7 g/dL (31.0-37.0); MCV 98.9 fL (80.0-100.0); Macrocytosis Slight; Mean Platelet Volume 7.1; Monocytes # (A) 0.5 k/uL (0-1.0); Monocytes % (A) 5 %; Neutrophils # (A) 6.7 k/uL (1.3-7.7); Neutrophils % (A) 76 %; Platelet Count 218 k/uL (150-450); RBC 3.13 m/uL (4.30-5.90); RDW 17.1 % (11.5-15.5); WBC 8.9 k/uL (3.8-10.6)
[2020-01-10 07:14] LABS: Glucose,Whole Blood 125 mg/dL (75-99)
[2020-01-10] MEDS: INSULIN ASPART (NovoLOG) 100 UNIT/ML VIAL SQ SCH ×2 (08:02→12:45)
[2020-01-10] MEDS: FERROUS SULFATE 325 MG TAB PO SCH (08:08)
[2020-01-10] MEDS: ASCORBIC ACID 500 MG TAB PO SCH (08:08)
[2020-01-10] MEDS: CLOPIDOGREL 75 MG TAB PO SCH (08:08)
[2020-01-10] MEDS: CHOLECALCIFEROL 1,000 UNIT TAB PO SCH (08:08)
[2020-01-10] MEDS: MULTIVITAMINS, THERA 1 EACH TAB PO SCH (08:08)
[2020-01-10] MEDS: THIAMINE 100 MG TAB PO SCH (08:08)
[2020-01-10] MEDS: METOPROLOL SUCCINATE (ER) 25 MG TAB.ER.24H PO SCH (08:08)
[2020-01-10] MEDS: PANTOPRAZOLE 40 MG TABLET PO SCH (08:08)
[2020-01-10] MEDS: GABAPENTIN 300 MG CAP PO SCH (08:08)
[2020-01-10] MEDS: ASPIRIN 81 MG PO SCH (08:08)
[2020-01-10] MEDS: MAGNESIUM OXIDE 400 MG TAB PO SCH (08:08)
[2020-01-10] MEDS: LACTOBACILLUS ACIDOPH & BULGAR 1 EACH PACKET PO SCH (08:09)
[2020-01-10] MEDS: HEPARIN SODIUM,PORCINE 5,000 UNIT/ML 1 ML VIAL SQ SCH (08:09)
[2020-01-10] MEDS: HYDROcodone/APAP 10-325MG 1 EACH TAB PO PRN (08:09)
[2020-01-10] MEDS: CEFEPIME 2 GM in SODIUM CHLORIDE 0.9% 100 ML IVPB SCH (08:10)
[2020-01-10] MEDS: DOXYCYCLINE 100 MG CAP PO SCH (08:10)
[2020-01-10] MEDS: ESCITALOPRAM 10 MG TAB PO SCH (08:11)
[2020-01-10 09:55] LABS: Anion Gap 5.5 mmol/L (4.00-12.00); Calcium 8.5 mg/dL (8.7-10.3); Carbon Dioxide 30.5 mmol/L (21.6-31.8); Non-African American GFR(CKD) 73.3 (60.0-200.0); Potassium 4.5 mmol/L (3.5-5.5)
[2020-01-10 11:54] LABS: Glucose,Whole Blood 175 mg/dL (75-99)
[2020-01-10 11:57] VITALS: BP 130/62; TEMP 98
[2020-01-10] MEDS: traMADol 50 MG TAB PO PRN (12:38)
--- NOTE | 2020-01-10 13:20 | P.DS ---
Providers Date of admission: 01/03/20 17:23 Attending physician: Reshma Merrill Consults: 01/03/20 17:23 Consult Physician Routine Consulting Provider: Cherelle Romo Consult Reason/Comments: known Do you want consulting provider notified?: Yes 01/04/20 10:19 Consult Physician Routine Consulting Provider: Carol Rodrigues Consult Reason/Comments: cellulitis Do you want consulting provider notified?: Yes [facility]: Diagnoses Bilateral lower extremity ulceration and cellulitis with Pseudomonas from the wound cultures. Left upper and lower lobe pneumonia peripheral vascular disease status post revascularization surgery in the past Chronic lower extremity pain for 5-6 months Acute on chronic hypoxic respiratory failure, resolved. Currently patient at baseline oxygen demand Chronic kidney disease, stage II-III Chronic atrial fibrillation History of coronary artery disease Chronic congestive heart failure with unknown ejection fraction Chronic obstructive pulmonary disease, not in acute exacerbation Type 2 diabetes mellitus Diabetic neuropathy Hypertension Hyperlipidemia Osteoarthritis Sleep apnea Pulmonary hypertension Mitral regurgitation Chronic hypoxic respiratory failure and 2 L oxygen via nasal cannula History of depression obesity Hospital course: this is a pleasant 74 years old male with past medical history of bilateral lower extremity ulceration and cellulitis with pseudomonas about 6 or 7 months ago, peripheral vascular disease status post revascularization surgery, chronic kidney disease stage II to 3, chronic atrial fibrillation, history of coronary artery disease, history of heart failure and COPD, type 2 diabetes mellitus, diabetic neuropathy, hypertension, hyperlipidemia, as her arthritis, sleep apnea, pulmonary hypertension, mitral regurgitation, chronic hypoxic respiratory failure on 2 L oxygen via nasal cannula, history of depression patient had fever of 100.6 upon admission with leukocytosis of 13.9 K, found to have sepsis secondary to bilateral lower extremity cellulitis and left upper and lower lobe pneumonia. Patient passed a swallow evaluation and they recommended continuation of regular textured diet and thin liquids. Patient has been evaluated by infectious disease and vascular surgery with Dr. Romo and recommended to continue with conservative management. Patient needed her oxygen at 5 L. Patient was treated with broad-spectrum antibiotics with ceftriaxone, cefepime, IV vancomycin and doxycycline at various times, patient showed interval improvement and there was improvement in his lower extremities infection as well as in his pneumonia, his oxygen requirement came back to baseline, currently saturating 97% with her oxygen and his breathing at 18 bpm . Leukocytosis back to normal and has been been afebrile for more than 3 days now. Also I service evaluated the patient. Because of his ongoing pain patient wanted to see a specialist who recommended [place] 10 mg every 4 hours and IV Dilaudid as needed. However narcotic.control the patient for the patient and [facility] and he agrees to be discharged and follow-up as an outpatient with pain specialist pt instructed extensively the side effects of the pain medication including but not limited to the risk of respiratory depression and/or . We advised patient that his goal should be pain that he Tolerates and He Agrees. Patient has been evaluated by PT/OT and the recommended ECF for subacute rehab, patient and agree. As physical therapy with help for general health and his pain management Eventually patient was cleared for discharge by all consultants including infectious disease, vascular surgery, pending specialist and wants specialist Problems and management plan were discussed with the patient and he verbalized understanding and acceptance. Also it was discussed with his MRS. Rosen over the phone upon his request at [phone] and discussed the case with her twice today and she also agrees with the management plan Patient was found stable and can be discharged to [facility] and guarded prognosis however he needs follow-up as an outpatient. Patient was instructed to follow up with PCP Dr. balta lucero within one week and patient agrees. Also patient was started to follow-up with Dr. Dill in 2-3 weeks, to name several pain management specialty are provided for the patient on discharge with Dr. Maria and Dr. Martinez to Make appointment within 1-2 weeks. Patient agrees Gen: patient is a AAOx3, no distress CVS: S1-S2, RRR, no murmur Lungs: B/L CTA, no wheezing Abdomen: soft, no distention, no tenderness, positive bowel sounds Extremity: no leg edema or induration. Bilateral lower extremity cellulitis and wound, improving Time spent more than 35 minutes Patient Condition at Discharge: Fair Plan - Discharge Summary New Discharge Prescriptions: New Amoxicillin/Potassium Clav [Augmentin 875-125 Tablet] 1 tab PO Q12HR 10 Days #20 tab No Action Ferrous Sulfate [Iron (65 MG Elemental)] 650 mg PO DAILY Cholecalciferol [Vitamin D3 (25 Mcg = 1000 Iu)] 1,000 unit PO DAILY Multivitamins, Thera [Multivitamin (formulary)] 1 tab PO DAILY Aspirin 81 mg PO DAILY Atorvastatin [Lipitor] 40 mg PO HS tab Escitalopram [Lexapro] 10 mg PO DAILY Clopidogrel Bisulfate [Plavix] 75 mg PO DAILY metOLazone [Zaroxolyn] 2.5 mg PO TUFR Lactobacillus Acidophilus [Acidophilus] 1 tab PO DAILY Glucagon Emergency Kit 1 mg IM ONCE PRN PRN Reason: LOW BLOOD SUGAR traMADol HCl [Ultram] 50 mg PO Q6H PRN #4 tab PRN Reason: Pain Gabapentin [Neurontin] 600 mg PO TID Insulin Detemir [Levemir Flextouch] 12 units SQ HS Magnesium Oxide [Mag-Ox] 400 mg PO BID Insulin Lispro [humaLOG Kwikpen] 10 unit SQ BID Albuterol Sulfate [Ventolin HFA] 1 - 2 puff INHALATION RT-Q4H PRN PRN Reason: Shortness Of Breath Insulin Lispro [humaLOG Kwikpen] See Protocol SQ BID PRN PRN Reason: HIGH BLOOD SUGAR Omeprazole 20 mg PO DAILY Metoprolol Succinate (ER) [Toprol Xl] 25 mg PO DAILY Vitamin C Gummies 2 cap PO DAILY Acetaminophen Tab [Tylenol Tab] 1,000 mg PO Q6HR Discharge Medication List Cholecalciferol [Vitamin D3 (25 Mcg = 1000 Iu)] 1,000 unit PO DAILY 01/04/16 [History] Ferrous Sulfate [Iron (65 MG Elemental)] 650 mg PO DAILY 01/04/16 [History] Multivitamins, Thera [Multivitamin (formulary)] 1 tab PO DAILY 01/09/17 [History] Aspirin 81 mg PO DAILY 11/29/18 [History] Atorvastatin [Lipitor] 40 mg PO HS tab 12/13/18 [Rx] Clopidogrel Bisulfate [Plavix] 75 mg PO DAILY 05/24/19 [History] Escitalopram [Lexapro] 10 mg PO DAILY 05/24/19 [History] metOLazone [Zaroxolyn] 2.5 mg PO TUFR 05/24/19 [History] Glucagon Emergency Kit 1 mg IM ONCE PRN 06/07/19 [History] Lactobacillus Acidophilus [Acidophilus] 1 tab PO DAILY 06/07/19 [History] traMADol HCl [Ultram] 50 mg PO Q6H PRN #4 tab 06/19/19 [Rx] Acetaminophen Tab [Tylenol Tab] 1,000 mg PO Q6HR 01/03/20 [History] Albuterol Sulfate [Ventolin HFA] 1 - 2 puff INHALATION RT-Q4H PRN 01/03/20 [History] Gabapentin [Neurontin] 600 mg PO TID 01/03/20 [History] Insulin Detemir [Levemir Flextouch] 12 units SQ HS 01/03/20 [History] Insulin Lispro [humaLOG Kwikpen] 10 unit SQ BID 01/03/20 [History] Insulin Lispro [humaLOG Kwikpen] See Protocol SQ BID PRN 01/03/20 [History] Magnesium Oxide [Mag-Ox] 400 mg PO BID 01/03/20 [History] Metoprolol Succinate (ER) [Toprol Xl] 25 mg PO DAILY 01/03/20 [History] Omeprazole 20 mg PO DAILY 01/03/20 [History] Vitamin C Gummies 2 cap PO DAILY 01/03/20 [History] Amoxicillin/Potassium Clav [Augmentin 875-125 Tablet] 1 tab PO Q12HR 10 Days #20 tab 01/10/20 [Rx] Follow up Appointment(s)/Referral(s): Balta Martin MD [Primary Care Provider] - 1-2 days (The office is closed please call and make your follow up appointment.) Cherelle Romo DO [STAFF PHYSICIAN] - 1 Week (No answer from the bowling or skating front desk clerk please call and make follow up appointment the number is [phone]. ) Activity/Diet/Wound Care/Special Instructions: f/u with wound care as prior to admission and privious orders from Dr. romo. wound center closed at time of discharge to verify wound care orders.
--- NOTE | 2020-01-10 16:53 | PN ---
PROGRESS NOTE DATE OF SERVICE: 01/10/2020 REASON FOR FOLLOWUP: Pneumonia. INTERVAL HISTORY: The patient is currently afebrile. The patient is breathing comfortably, currently on 2 L. That is his baseline. Denies having any chest pain or cough. No abdominal pain or any worsening pain to the lower extremity. PHYSICAL EXAMINATION: Blood pressure 130/62 with a pulse of 72, temperature 98. He is 97% on 2 L nasal cannula. General description is an elderly male up in the chair in no distress. RESPIRATORY SYSTEM: Unlabored breathing with decreased breath sounds at the base. No wheeze. HEART: S1, S2. Regular rate and rhythm. ABDOMEN: Soft. No tenderness. LABS: Hemoglobin 9.2, white count 8.9. BUN of 33, creatinine 1.0. Blood culture has been negative. DIAGNOSTIC IMPRESSION AND PLAN: Patient presented to hospital with fever. Initial concern was for lower extremity wound and cellulitis, as there was more drainage from the leg wound. However, those cultures were negative. Subsequently he did have respiratory symptoms and also required change in oxygen with concern for pneumonia. Patient clinically responded to cefepime and doxycycline. We tried to send the patient home on Avelox, but that could not be done because of the Lexapro. We will switch more to Augmentin 875 b.i.d. for about a week and close outpatient followup. Questions and concerns were answered. MMODL / IJN: [id number] /
== END 2020-01-10 16:16 | DRG 637 ==
LOC: EC 15:32 → 6NMEDSUR 17:23
PROVIDERS: ADMIT Hospitalist; ATTEND Hospitalist
DX: E11.628 Type 2 diabetes mellitus with other skin complications (principal); J18.9 Pneumonia, unspecified organism; J96.21 Acute and chronic respiratory failure with hypoxia; L03.116 Cellulitis of left lower limb; L03.115 Cellulitis of right lower limb; I13.0 Hypertensive heart and chronic kidney disease with heart failure and stage 1 through stage 4 chronic kidney disease, or unspecified chronic kidney disease; I48.20 Chronic atrial fibrillation, unspecified; J44.0 Chronic obstructive pulmonary disease with (acute) lower respiratory infection; L97.322 Non-pressure chronic ulcer of left ankle with fat layer exposed; L97.822 Non-pressure chronic ulcer of other part of left lower leg with fat layer exposed; B96.5 Pseudomonas (aeruginosa) (mallei) (pseudomallei) as the cause of diseases classified elsewhere; Z79.4 Long term (current) use of insulin; E11.22 Type 2 diabetes mellitus with diabetic chronic kidney disease; E11.40 Type 2 diabetes mellitus with diabetic neuropathy, unspecified; E11.51 Type 2 diabetes mellitus with diabetic peripheral angiopathy without gangrene; E11.621 Type 2 diabetes mellitus with foot ulcer; E66.9 Obesity, unspecified; E78.5 Hyperlipidemia, unspecified; Z20.828 Contact with and (suspected) exposure to other viral communicable diseases; G47.30 Sleep apnea, unspecified; Z99.89 Dependence on other enabling machines and devices; H54.7 Unspecified visual loss; I25.10 Atherosclerotic heart disease of native coronary artery without angina pectoris; I27.20 Pulmonary hypertension, unspecified; I34.0 Nonrheumatic mitral (valve) insufficiency; I50.9 Heart failure, unspecified; L97.522 Non-pressure chronic ulcer of other part of left foot with fat layer exposed; M19.90 Unspecified osteoarthritis, unspecified site; N18.3 Chronic kidney disease, stage 3 (moderate); Z79.02 Long term (current) use of antithrombotics/antiplatelets; Z79.82 Long term (current) use of aspirin; Z79.899 Other long term (current) drug therapy; Z82.49 Family history of ischemic heart disease and other diseases of the circulatory system; Z87.891 Personal history of nicotine dependence; Z95.1 Presence of aortocoronary bypass graft; Z95.2 Presence of prosthetic heart valve; Z95.5 Presence of coronary angioplasty implant and graft; I87.8 Other specified disorders of veins; Z87.01 Personal history of pneumonia (recurrent); F32.9 Major depressive disorder, single episode, unspecified
CPT/HCPCS: 36415; 71045; 71046; 80048; 80053; 81003; 82550; 83036; 83605; 83615; 83735; 84100; 84145; 84484; 85025; 85027; 85610; 85730; 86140; 87040; 87070; 87205; 87502; 93005; 93970; 94760; 96365; 96367; 96375; 96376; 99285

== ENCOUNTER 2020-02-04 14:56 | Inpatient (IN) | payer MEDICARE ==
[2020-02-04] MEDS ORDERED: MORPHINE SULFATE 4 MG/ML SYRINGE IV STA ×2 (15:33→16:52)
[2020-02-04] MEDS ORDERED: SODIUM CHLORIDE 0.9% 500 ML 500 ML IV STA (15:33)
--- NOTE | 2020-02-04 15:38 | ED ---
General Adult HPI - General Chief complaint: Recheck/Abnormal Lab/Rx Stated complaint: cellulitis Time Seen by Provider: 02/04/20 14:59 Source: EMS Mode of arrival: EMS Limitations: no limitations - History of Present Illness Initial comments: Dictation was produced using [employer] dictation software. please excuse any grammatical, word or spelling errors. This patient was cared for during a federal and state declared state of emergency secondary to Covid 19 Chief Complaint: 74-year-old male transferred for worsening lower extremity c ellulitis bilaterally History of Present Illness: 4-year-old male has multiple comorbidities. Patient was recently admitted to the hospital approximately one month ago for bilateral Jania cellulitis with associated sepsis. Stated in the hospital for several days and was evaluated by multiple specialists. Patient was then discharged to [facility]. He is maintained on oral antibiotics. Patient reports that he is here today because his symptoms of lower extremity cellulitis are returning. Patient states that he feels as though his symptoms progressively worsened overnight. Patient has any constitutional symptoms. He denies any worsening chest pain or shortness of breath. All pain. No pain with urination. The ROS documented in this emergency department record has been reviewed and confirmed by me. Those systems with pertinent positive or negative responses have been documented in the HPI. All other systems are other negative and/or noncontributory. PHYSICAL EXAM: General Impression: Alert and oriented x3, not in acute distress HEENT: Normocephalic atraumatic, extra-ocular movements intact, pupils equal and reactive to light bilaterally, mucous membranes moist. Cardiovascular: Heart regular rate and rhythm Chest: Able to complete full sentences, no retractions, no tachypnea Abdomen: abdomen soft, non-tender, non-distended, no organomegaly Musculoskeletal: Pulses present and equal in all extremities Motor: no focal deficits noted Neurological: CN II-XII grossly intact, no focal motor or sensory deficits noted Skin: Erythematous bilateral lower extremities with multiple skin lesions. Skin is not warm to touch, he does report tenderness to palpation. Nonindurated. There is 2+ pitting edema Psych: Normal affect and mood ED course: 74-year-old male with worsening bilateral lower extremity cellulitis. Patient recently admitted for cellulitis and sepsis. He is currently on oral antibiotics. Patient reports that symptoms are worsening headache or overnight. As upon arrival are within acceptable limits. Patient does not complain of any constitutional symptoms. Review of systems is otherwise negative. Chart review was performed. Patient was admitted January 02 and discharge January 09. Was evaluated by vascular surgery, pain specialist, and infectious disease. Laboratory evaluation obtained. No leukocytosis. Hemoglobin 10.1. CBC is within patient's baseline. Coag panel unremarkable. Metabolic panel shows dehydration with a BUN of 48. Potassium 5.2. Glucose 165. CRP is 70.6. Click or presentation concerning for worsening lower extremity cellulitis failed outpatient treatment. Patient will be started on IV vancomycin. Case is discussed with Teresa Muller who is willing to accept patients care on behalf of [facility] hospitalist group. EKG interpretation: Ventricular rate 81, sinus rhythm,. Interval to 20, QRS 84, QTC 485. No VT prolongation, no QTC prolongation, no ST or T-wave changes noted. EKG compared to 01/03/2020 showing no changes. Overall, this EKG is unremarkable - Related Data Home Medications Medication Instructions Recorded Confirmed Cholecalciferol [Vitamin D3 (25 1,000 unit PO DAILY 01/04/16 02/04/20 Mcg = 1000 Iu)] Ferrous Sulfate [Iron (65 MG 650 mg PO DAILY 01/04/16 02/04/20 Elemental)] Multivitamins, Thera [Multivitamin 1 tab PO DAILY 01/09/17 02/04/20 (formulary)] Aspirin 81 mg PO DAILY 11/29/18 02/04/20 Clopidogrel Bisulfate [Plavix] 75 mg PO DAILY 05/24/19 02/04/20 Escitalopram [Lexapro] 10 mg PO DAILY 05/24/19 02/04/20 Glucagon Emergency Kit 1 mg IM ONCE PRN 06/07/19 02/04/20 Lactobacillus Acidophilus 1 tab PO DAILY 06/07/19 02/04/20 [Acidophilus] Acetaminophen Tab [Tylenol] 1,000 mg PO Q6HR PRN 01/03/20 02/04/20 Albuterol Sulfate [Ventolin HFA] 1 - 2 puff INHALATION RT-Q4H PRN 01/03/20 02/04/20 Gabapentin [Neurontin] 600 mg PO TID 01/03/20 02/04/20 Insulin Detemir [Levemir Flextouch] 12 units SQ HS 01/03/20 02/04/20 Magnesium Oxide [Mag-Ox] 400 mg PO BID 01/03/20 02/04/20 Metoprolol Succinate (ER) [Toprol 25 mg PO DAILY 01/03/20 02/04/20 XL] Omeprazole 20 mg PO DAILY 01/03/20 02/04/20 Vitamin C Gummies 2 cap PO DAILY 01/03/20 02/04/20 Insulin Lispro [humaLOG Kwikpen] See Protocol SQ ACHS 02/04/20 02/04/20 Previous Rx's Medication Instructions Recorded Atorvastatin [Lipitor] 40 mg PO HS tab 12/13/18 traMADol HCl [Ultram] 50 mg PO Q6H PRN #12 tab 01/10/20 Allergies Allergy/AdvReac Type Severity Reaction Status Date / Time No Known Allergies Allergy Verified 02/04/20 16:23 Review of Systems ROS Statement: Those systems with pertinent positive or pertinent negative responses have been documented in the HPI. ROS Other: All systems not noted in ROS Statement are negative. Past Medical History Past Medical History: Atrial Fibrillation, Coronary Artery Disease (CAD), Heart Failure, COPD, Diabetes Mellitus, Eye Disorder, Hyperlipidemia, Hypertension, Osteoarthritis (OA), Pneumonia, Renal Disease, Sleep Apnea/CPAP/BIPAP, Vascular Disorder Additional Past Medical History / Comment(s): Chronic anemia/procrit, hx CKD stage III, pulmonary HTN, home oxygen continuous at 2L NC, decreased vision bilaterally since CABG surgery, neuropathy bilateral legs/feet, chronic bilateral leg/foot pain, severe PVD, past bilateral lower leg/foot wounds and cellulitis, current bilateral lower leg wounds, sepsis d/t leg wounds 2018, mild gastritis, diverticular disease. no cpap used History of Any Multi-Drug Resistant Organisms: None Reported Past Surgical History: Adenoidectomy, Cardiac Valve Replacement, Heart Ca theterization, Heart Catheterization With Stent, Tonsillectomy Additional Past Surgical History / Comment(s): 04/22/19 L leg angiogram, FAUSTINO, mitral valve repair 10/31/18, EGD, colonoscopies. one cardiac stent, Vascular surgery May 28 left leg Past Anesthesia/Blood Transfusion Reactions: No Reported Reaction Additional Past Anesthesia/Blood Transfusion Reaction / Comment(s): DIFF IV STARTS Date of Last Stent Placement:: fall 2018 Past Psychological History: No Psychological Hx Reported Smoking Status: Former smoker Past Alcohol Use History: Occasional Past Drug Use History: None Reported - Past Family History Father Family Medical History: Cancer Additional Family Medical History / Comment(s): stomach Mother Family Medical History: Congestive Heart Failure (CHF) Additional Family Medical History / Comment(s): AT AGE 68 Brother(s) Family Medical History: Cancer General Exam Limitations: no limitations Course Vital Signs 02/04/20 02/04/20 15:01 16:50 Temperature 97.8 F Pulse Rate 79 86 Respiratory 18 18 Rate Blood Pressure 140/67 145/82 O2 Sat by Pulse 97 98 Oximetry Medical Decision Making - Lab Data Result diagrams: 02/04/20 15:52 02/04/20 15:52 Lab Results 02/04/20 02/04/20 02/04/20 Range/Units 15:52 15:52 15:52 WBC 9.0 (3.8-10.6) k/uL RBC 3.38 L (4.30-5.90) m/uL Hgb 10.1 L (13.0-17.5) gm/dL Hct 32.8 L (39.0-53.0) % MCV 97.0 (80.0-100.0) fL MCH 30.0 (25.0-35.0) pg MCHC 30.9 L (31.0-37.0) g/dL RDW 16.8 H (11.5-15.5) % Plt Count 276 (150-450) k/uL MPV 7.0 Neutrophils % 75 % Lymphocytes % 8 % Monocytes % 5 % Eosinophils % 10 % Basophils % 1 % Neutrophils # 6.8 (1.3-7.7) k/uL Lymphocytes # 0.7 L (1.0-4.8) k/uL Monocytes # 0.5 (0-1.0) k/uL Eosinophils # 0.9 H (0-0.7) k/uL Basophils # 0.1 (0-0.2) k/uL Hypochromasia Moderate Anisocytosis Slight Macrocytosis Slight PT 9.9 (9.0-12.0) sec INR 0.9 (<1.2) APTT 26.4 (22.0-30.0) sec Sodium 137 (137-145) mmol/L Potassium 5.2 H (3.5-5.1) mmol/L Chloride 103 (98-107) mmol/L Carbon Dioxide 32 H (22-30) mmol/L Anion Gap 2 mmol/L BUN 48 H (9-20) mg/dL Creatinine 1.13 (0.66-1.25) mg/dL Est GFR (CKD-EPI)AfAm 73 (>60 ml/min/1.73 sqM) Est GFR (CKD-EPI)NonAf 64 (>60 ml/min/1.73 sqM) Glucose 165 H (74-99) mg/dL Plasma Lactic Acid Guy (0.7-2.0) mmol/L Calcium 8.9 (8.4-10.2) mg/dL Magnesium 2.1 (1.6-2.3) mg/dL Total Bilirubin 0.5 (0.2-1.3) mg/dL AST 33 (17-59) U/L ALT 21 (4-49) U/L Alkaline Phosphatase 130 H (38-126) U/L C-Reactive Protein 70.6 H (<10.0) mg/L Total Protein 6.8 (6.3-8.2) g/dL Albumin 3.3 L (3.5-5.0) g/dL 02/04/20 Range/Units 15:52 WBC (3.8-10.6) k/uL RBC (4.30-5.90) m/uL Hgb (13.0-17.5) gm/dL Hct (39.0-53.0) % MCV (80.0-100.0) fL MCH (25.0-35.0) pg MCHC (31.0-37.0) g/dL RDW (11.5-15.5) % Plt Count (150-450) k/uL MPV Neutrophils % % Lymphocytes % % Monocytes % % Eosinophils % % Basophils % % Neutrophils # (1.3-7.7) k/uL Lymphocytes # (1.0-4.8) k/uL Monocytes # (0-1.0) k/uL Eosinophils # (0-0.7) k/uL Basophils # (0-0.2) k/uL Hypochromasia Anisocytosis Macrocytosis PT (9.0-12.0) sec INR (<1.2) APTT (22.0-30.0) sec Sodium (137-145) mmol/L Potassium (3.5-5.1) mmol/L Chloride (98-107) mmol/L Carbon Dioxide (22-30) mmol/L Anion Gap mmol/L BUN (9-20) mg/dL Creatinine (0.66-1.25) mg/dL Est GFR (CKD-EPI)AfAm (>60 ml/min/1.73 sqM) Est GFR (CKD-EPI)NonAf (>60 ml/min/1.73 sqM) Glucose (74-99) mg/dL Plasma Lactic Acid Guy 1.3 (0.7-2.0) mmol/L Calcium (8.4-10.2) mg/dL Magnesium (1.6-2.3) mg/dL Total Bilirubin (0.2-1.3) mg/dL AST (17-59) U/L ALT (4-49) U/L Alkaline Phosphatase (38-126) U/L C-Reactive Protein (<10.0) mg/L Total Protein (6.3-8.2) g/dL Albumin (3.5-5.0) g/dL Disposition Clinical Impression: Cellulitis Disposition: ADMITTED IP TO THIS HOSP Condition: Fair Referrals: Lary Martin MD [Primary Care Provider] - 1-2 days Decision Time: 17:00
[2020-02-04 16:10] LABS: Anisocytosis Slight; Basophils # (A) 0.1 k/uL (0-0.2); Basophils % (A) 1 %; Eosinophils # (A) 0.9 k/uL (0-0.7); Eosinophils % (A) 10 %; HCT 32.8 % (39.0-53.0); HGB 10.1 gm/dL (13.0-17.5); Hypochromasia Moderate; Lymphocytes # (A) 0.7 k/uL (1.0-4.8); Lymphocytes % (A) 8 %; MCHC 30.9 g/dL (31.0-37.0); Macrocytosis Slight; Monocytes # (A) 0.5 k/uL (0-1.0); Monocytes % (A) 5 %; Neutrophils # (A) 6.8 k/uL (1.3-7.7); Neutrophils % (A) 75 %; Platelet Count 276 k/uL (150-450); RBC 3.38 m/uL (4.30-5.90); RDW 16.8 % (11.5-15.5)
[2020-02-04 16:15] LABS: INR 0.9 (<1.2); Partial Thromboplastin Time 26.4 sec (22.0-30.0); Prothrombin Time 9.9 sec (9.0-12.0)
[2020-02-04 16:18] LABS: Albumin 3.3 g/dL (3.5-5.0); C Reactive Protein 70.6 mg/L (<10.0); Calcium 8.9 mg/dL (8.4-10.2); Magnesium 2.1 mg/dL (1.6-2.3); Potassium 5.2 mmol/L (3.5-5.1); Total Bilirubin 0.5 mg/dL (0.2-1.3); Total Protein 6.8 g/dL (6.3-8.2)
--- NOTE | 2020-02-04 16:34 | XR ---
EXAMINATION TYPE: XR chest 2V DATE OF EXAM: 02/04/2020 COMPARISON: Prior chest x-ray January 09, 2020 HISTORY: COPD. Bilateral leg pain and cellulitis. TECHNIQUE: Frontal and lateral views of the chest are obtained. FINDINGS: Overlying sternal wires along with atrial appendage clip are redemonstrated. There are low lung volumes and cardiomegaly redemonstrated. Persistent alveolar and interstitial opacities bilater ally. No pleural effusion or pneumothorax seen. Osseous structures are intact. IMPRESSION: Low lung volumes and cardiomegaly with suggestion of mild/moderate bilateral alveolar an d interstitial edema and/or infiltrates. Correlate for CHF exacerbation. No significant change from p rior x-ray.
[2020-02-04] MEDS ORDERED: VANCOMYCIN IV PER PHARMACY 1 EACH MISC MISCELLANE PRN (16:47)
--- NOTE | 2020-02-04 16:55 | XR ---
EXAMINATION TYPE: XR tibia fibula bilateral DATE OF EXAM: 02/04/2020 COMPARISON: NONE HISTORY: Pain. Cellulitis. TECHNIQUE: 4 views FINDINGS: There is subcutaneous edema around the lower leg. There is vascular calcification. There is moderate osteoarthritis in the medial joint space of the knee with joint space narrowing. The ankle mortise is anatomic. IMPRESSION: Subcutaneous edema. No fracture. No sign of osteomyelitis.
[2020-02-04] MEDS ORDERED: ACETAMINOPHEN TAB 325 MG TAB PO PRN (16:57)
[2020-02-04] MEDS ORDERED: NALOXONE 0.4 MG/ML 1 ML VIAL IV PRN (16:57)
[2020-02-04] MEDS ORDERED: ONDANSETRON 4 MG/2 ML VIAL IVP PRN (16:57)
[2020-02-04] MEDS ORDERED: VANCOMYCIN 1,500 MG in SODIUM CHLORIDE 0.9% 250 ML IVPB ONE (17:00)
[2020-02-04] MEDS: SODIUM CHLORIDE 0.9% 1,000 ML IV SCH (17:30)
[2020-02-04] MEDS: GABAPENTIN 300 MG CAP PO SCH (19:36)
[2020-02-04] MEDS: MORPHINE SULFATE 4 MG/ML SYRINGE IV PRN (21:11)
[2020-02-05] MEDS ORDERED: FUROSEMIDE 10 MG/ML 4 ML VIAL IV STA (05:38)
[2020-02-05] MEDS ORDERED: IPRATROPIUM-ALBUTEROL 3 ML NEB INHALATION PRN (07:32)
[2020-02-05] MEDS: PANTOPRAZOLE 40 MG/10 ML VIAL IV SCH (07:45)
[2020-02-05] MEDS: MORPHINE SULFATE 4 MG/ML SYRINGE IV PRN (07:46)
[2020-02-05] MEDS: GABAPENTIN 300 MG CAP PO SCH ×3 (07:46→22:07)
[2020-02-05] MEDS: VANCOMYCIN 1,500 MG in SODIUM CHLORIDE 0.9% 250 ML IVPB SCH (07:47)
[2020-02-05] MEDS: IPRATROPIUM-ALBUTEROL 3 ML NEB INHALATION SCH ×3 (08:02→16:29)
--- NOTE | 2020-02-05 13:27 | P.HPIM ---
History of Present Illness this is a pleasant 74 years old male with past medical history of bilateral lower extremity ulceration and cellulitis with pseudomonas about 6 or 7 months ago, peripheral vascular disease status post revascularization surgery, chronic kidney disease stage II to 3, chronic atrial fibrillation, history of coronary artery disease, history of heart failure and COPD, type 2 diabetes mellitus, diabetic neuropathy, hypertension, hyperlipidemia, as her arthritis, sleep apnea, pulmonary hypertension, mitral regurgitation, chronic hypoxic respiratory failure on 2 L oxygen via nasal cannula, history of depression. Patient was discharge on 01/09 for lower extremity cellulitis, he was sent to [facility] at that time. This time presents because of recurrent cellulitis of the lower extremities. Patient states that he has worsening cellulitis of the lower extremity for 1 week. Also he has been complaining of from dyspnea for more than one week with no associated chest pain. No significant coughing. Patient has chronic respiratory failure on a 3 L oxygen via nasal cannula, currently he is on 15 L/m. He was able to talk is only, not much of accessory muscles while he was sitting up in bed. Patient also states that recently he fell from his we'll with some head abrasions but no loss of consciousness as per patient, this was several days ago. Vitals reviewed and he is afebrile, his saturating 90s on 15 L oxygen via nasal cannula. Mildly tachypneic with respiratory rate 18-20 Chest x-ray: Low lung volume and cardiomegaly with suggestion of mild to moderate bilateral alveolar and interstitial edema and/or infiltrate, relates for CHF. No significant change from prior x-ray x-ray of the both tibia and fibula he wants subcutaneous edema, no fracture, no signs of osteomyelitis EKG showing normal sinus rhythm at 81 BPM with no significant ST-T changes. In the emergency room he received vancomycin, also 1 dose of IV Lasix 40 mg. Infectious disease team was consulted from ED Review of Systems CONSTITUTIONAL: No fever, no malaise, no fatigue. HEENT: No recent visual problems or hearing problems. Denied any sore throat. CARDIOVASCULAR: No orthopnea, PND, no palpitations, no syncope. PULMONARY: no cough, no hemoptysis. GASTROINTESTINAL: No diarrhea, no nausea, no vomiting, no abdominal pain. Normoactive bowel sounds. NEUROLOGICAL: No headaches, no weakness, no numbness. HEMATOLOGICAL: Denies any bleeding or petechiae. GENITOURINARY: Denies any burning micturition, frequency, or urgency. MUSCULOSKELETAL/RHEUMATOLOGICAL: Denies any joint pain, swelling, or any muscle pain. ENDOCRINE: Denies any polyuria or polydipsia. Past Medical History Past Medical History: Atrial Fibrillation, Coronary Artery Disease (CAD), Heart Failure, COPD, Diabetes Mellitus, Eye Disorder, Hyperlipidemia, Hypertension, Osteoarthritis (OA), Pneumonia, Renal Disease, Sleep Apnea/CPAP/BIPAP, Vascular Disorder Additional Past Medical History / Comment(s): Chronic anemia/procrit, hx CKD stage III, pulmonary HTN, home oxygen continuous at 2L NC, decreased vision bilaterally since CABG surgery, neuropathy bilateral legs/feet, chronic bilateral leg/foot pain, severe PVD, past bilateral lower leg/foot wounds and cellulitis, current bilateral lower leg wounds, sepsis d/t leg wounds 2018, mild gastritis, diverticular disease. no cpap used History of Any Multi-Drug Resistant Organisms: None Reported Past Surgical History: Adenoidectomy, Cardiac Valve Replacement, Heart Catheter ization, Heart Catheterization With Stent, Tonsillectomy Additional Past Surgical History / Comment(s): 04/22/19 L leg angiogram, FAUSTINO, mitral valve repair 10/31/18, EGD, colonoscopies. one cardiac stent, Vascular surgery May 28 left leg Past Anesthesia/Blood Transfusion Reactions: No Reported Reaction Additional Past Anesthesia/Blood Transfusion Reaction / Comment(s): DIFF IV STARTS Date of Last Stent Placement:: fall 2018 Past Psychological History: No Psychological Hx Reported Smoking Status: Former smoker Past Alcohol Use History: Occasional Past Drug Use History: None Reported - Past Family History Father Family Medical History: Cancer Additional Family Medical History / Comment(s): stomach Mother Family Medical History: Congestive Heart Failure (CHF) Additional Family Medical History / Comment(s): AT AGE 68 Brother(s) Family Medical History: Cancer Medications and Allergies Home Medications Medication Instructions Recorded Confirmed Type Cholecalciferol [Vitamin D3 (25 1,000 unit PO DAILY 01/04/16 02/04/20 History Mcg = 1000 Iu)] Ferrous Sulfate [Iron (65 MG 650 mg PO DAILY 01/04/16 02/04/20 History Elemental)] Multivitamins, Thera [Multivitamin 1 tab PO DAILY 01/09/17 02/04/20 History (formulary)] Aspirin 81 mg PO DAILY 11/29/18 02/04/20 History Atorvastatin [Lipitor] 40 mg PO HS tab 12/13/18 02/04/20 Rx Clopidogrel Bisulfate [Plavix] 75 mg PO DAILY 05/24/19 02/04/20 History Escitalopram [Lexapro] 10 mg PO DAILY 05/24/19 02/04/20 History Glucagon Emergency Kit 1 mg IM ONCE PRN 06/07/19 02/04/20 History Lactobacillus Acidophilus 1 tab PO DAILY 06/07/19 02/04/20 History [Acidophilus] Acetaminophen Tab [Tylenol] 1,000 mg PO Q6HR PRN 01/03/20 02/04/20 History Albuterol Sulfate [Ventolin HFA] 1 - 2 puff INHALATION RT-Q4H PRN 01/03/20 02/04/20 History Gabapentin [Neurontin] 600 mg PO TID 01/03/20 02/04/20 History Insulin Detemir [Levemir Flextouch] 12 units SQ HS 01/03/20 02/04/20 History Magnesium Oxide [Mag-Ox] 400 mg PO BID 01/03/20 02/04/20 History Metoprolol Succinate (ER) [Toprol 25 mg PO DAILY 01/03/20 02/04/20 History XL] Omeprazole 20 mg PO DAILY 01/03/20 02/04/20 History Vitamin C Gummies 2 cap PO DAILY 01/03/20 02/04/20 History traMADol HCl [Ultram] 50 mg PO Q6H PRN #12 tab 01/10/20 02/04/20 Rx Insulin Lispro [humaLOG Kwikpen] See Protocol SQ ACHS 02/04/20 02/04/20 History Allergies Allergy/AdvReac Type Severity Reaction Status Date / Time No Known Allergies Allergy Verified 02/04/20 16:23 Physical Exam Vitals: Vital Signs Temp Pulse Resp BP Pulse Ox 02/05/20 12:20 85 02/05/20 12:11 83 02/05/20 12:00 84 18 130/82 90 L 02/05/20 10:50 88 L 02/05/20 08:12 85 02/05/20 08:03 87 02/05/20 07:34 90 26 H 147/65 88 L 02/05/20 06:00 87 20 146/80 89 L 02/05/20 05:00 87 20 135/75 90 L 02/05/20 03:00 92 20 120/64 95 02/05/20 01:00 93 20 139/66 90 L 02/05/20 00:00 84 16 129/64 02/04/20 22:54 98.0 F 90 21 141/56 90 L 02/04/20 21:12 98.1 F 92 22 139/80 90 L 02/04/20 20:12 90 18 154/78 90 L 02/04/20 17:40 86 18 144/75 91 L 02/04/20 16:50 86 18 145/82 90 L 02/04/20 15:01 97.8 F 79 18 140/67 97 Intake and Output 02/04/20 02/05/20 02/05/20 22:59 06:59 14:59 Other: Weight 97.522 kg GENERAL: The patient is alert and oriented x3, not in any acute distress. Well developed, well nourished. Some abrasions on the nasal branch and the left forehead HEENT: Pupils are round and equally reacting to light. EOMI. No scleral icterus. No conjunctival pallor. Normocephalic, atraumatic. No pharyngeal erythema. No thyromegaly. CARDIOVASCULAR: S1 and S2 present. No murmurs, rubs, or gallops. -PULMONARY: Chest is clear to auscultation, bilateral crepitation ABDOMEN: Soft, nontender, nondistended, normoactive bowel sounds. No palpable organomegaly. MUSCULOSKELETAL: No joint swelling or deformity. EXTREMITIES: No cyanosis, clubbing, or pedal edema. Both legs are pink patient with different areas of superficial ulceration with some pustular bases, no significant oozing NEUROLOGICAL: Gross neurological examination did not reveal any focal deficits. SKIN: No rashes. No petechiae Results CBC & Chem 7: 02/04/20 15:52 02/04/20 15:52 Labs: Abnormal Lab Results - Last 24 Hours (Table) 02/04/20 02/04/20 Range/Units 15:52 15:52 RBC 3.38 L (4.30-5.90) m/uL Hgb 10.1 L (13.0-17.5) gm/dL Hct 32.8 L (39.0-53.0) % MCHC 30.9 L (31.0-37.0) g/dL RDW 16.8 H (11.5-15.5) % Lymphocytes # 0.7 L (1.0-4.8) k/uL Eosinophils # 0.9 H (0-0.7) k/uL Potassium 5.2 H (3.5-5.1) mmol/L Carbon Dioxide 32 H (22-30) mmol/L BUN 48 H (9-20) mg/dL Glucose 165 H (74-99) mg/dL Alkaline Phosphatase 130 H (38-126) U/L C-Reactive Protein 70.6 H (<10.0) mg/L Albumin 3.3 L (3.5-5.0) g/dL Assessment and Plan Assessment: Recurrent bilateral lower extremity cellulitis. Acute hypoxic respiratory failure Possible acute heart failure, pneumonia is in the differential diagnosis. Recent fall several days ago with no loss of consciousness as per patient Recent history of Bilateral lower extremity ulceration and cellulitis with Pseudomonas from the wound cultures. Recent history of Left upper and lower lobe pneumonia peripheral vascular disease status post revascularization surgery in the past Chronic lower extremity pain for 5-6 months Acute on chronic hypoxic respiratory failure, resolved. Currently patient at baseline oxygen demand Chronic kidney disease, stage II-III Chronic atrial fibrillation History of coronary artery disease Chronic congestive heart failure with unknown ejection fraction Chronic obstructive pulmonary disease, not in acute exacerbation Type 2 diabetes mellitus Diabetic neuropathy Hypertension Hyperlipidemia Osteoarthritis Sleep apnea Pulmonary hypertension Mitral regurgitation Chronic hypoxic respiratory failure and 2 L oxygen via nasal cannula History of depression obesity Plan: This is a pleasant 74 years old male who presents because of bilateral lower extremity cellulitis. with respiratory failure. Continue with IV vancomycin, c efepime. We'll follow-up recommendation by infectious disease team and the regarding antibiotics. Consult pulmonary team. Continue with Lasix. Check sputum culture and sensitivity. We will check for influenza and covid. Labs and medication were reviewed.. Continue same treatment. Continue with symptomatic treatment. Resume home medication. Monitor lytes and vitals. DVT and GI prophylaxis. Further recommendations depends on the clinical course of the patient DVT prophylaxis: Subcutaneous heparin GI Prophylaxis: Pepcid PT/OT: Pending Prognosis is guarded
[2020-02-05] MEDS: CEFEPIME 2 GM in SODIUM CHLORIDE 0.9% 100 ML IVPB SCH ×2 (15:10→22:07)
[2020-02-05] MEDS: SODIUM CHLORIDE 0.9% 1,000 ML IV SCH (15:21)
[2020-02-05 16:31] LABS: Glucose,Whole Blood 266 mg/dL (75-99)
[2020-02-05] MEDS ORDERED: ALBUTEROL HFA INHALER INHALATION PRN (16:44)
[2020-02-05 20:27] LABS: Glucose,Whole Blood 207 mg/dL (75-99)
[2020-02-05] MEDS: ALBUTEROL HFA INHALER INHALATION SCH (20:33)
[2020-02-05 20:44] LABS: ABG Base Excess 3.6 mmol/L; ABG HCO3 28 mmol/L (21-25); ABG Oxygen Saturation 95.1 % (94-97); ABG PCO2 46 mmHg (35-45); ABG PO2 73 mmHg (83-108); ABG TCO2 30 mmol/L (19-24); Allen Test Performed? Yes
[2020-02-05] MEDS: FUROSEMIDE 10 MG/ML 4 ML VIAL IV SCH (22:07)
[2020-02-06] MEDS: VANCOMYCIN 1,500 MG in SODIUM CHLORIDE 0.9% 250 ML IVPB SCH (00:31)
[2020-02-06] MEDS: MORPHINE SULFATE 4 MG/ML SYRINGE IV PRN (00:33)
--- NOTE | 2020-02-06 02:24 | CONS ---
CONSULTATION DATE OF SERVICE: 02/05/2020 REASON FOR CONSULTATION: Bilateral lower extremity cellulitis. HISTORY OF PRESENT ILLNESS: The patient is a 74-year-old male with a past medical history significant for bilateral lower extremity venous stasis ulcer and recurrent cellulitis, who was recently admitted at this facility and treated for lower extremity cellulitis and pneumonia. Subsequently, the [facility] to the [facility]. The patient has now been brought back to the hospital with concern for increasing swelling and redness of bilateral lower extremity that has been progressively getting worse over the last one week. On arrival to the ER, the patient was afebrile. Patient noticed to be hypoxic requiring high-flow oxygen. No clear history of any vomiting or diarrhea reported. The patient did have a normal white count with a left shift. Kidney function was normal. Liver enzymes were normal. CRP was 70.6. Influenza PCR negative. Torres PCR is currently pending. Patient has been diagnosed with bilateral lower extremity wound and cellulitis. The patient is currently being treated with vancomycin and cefepime. Infectious Disease was consulted for further management of antibiotic therapy. The patient did have a chest x-ray with evidence of bilateral infiltrate and low lung volumes. Most of the information has been obtained from review of the chart, talking to nursing staff as the patient was noticed to be lethargic and unable to provide any history. At the time of evaluation, most information has been extracted from review of the chart. REVIEW OF SYSTEMS: Positive points has been mentioned in HPI. Complete review of systems could not be obtained because of underlying mental status. PAST MEDICAL HISTORY: Atrial fibrillation, coronary artery disease, COPD, heart failure, diabetes mellitus, hyperlipidemia, hypertension, osteoarthritis. PAST SURGICAL HISTORY: Adenoidectomy, heart catheterization, tonsillectomy, lower extremity wound debridement. SOCIAL HISTORY: Remote history of smoking. Occasionally drinks. No drug use. FAMILY HISTORY: Father history of stomach cancer. ALLERGIES: No known drug allergies. MEDICATIONS: Medications include the patient is currently on Tylenol, Ventolin, DuoNeb, cefepime 2 grams q.12, Lasix, Neurontin, morphine sulfate, Narcan, Zofran, Protonix and vancomycin. PHYSICAL EXAMINATION: Blood pressure is 143/67, pulse of 85, temperature 98.2. He is 98% on high-flow oxygen. General description is an elderly male lying in bed in no distress. No tachypnea or accessory muscle of respiration use. HEENT: Examination shows pallor, no scleral icterus. Oral mucous membranes dry. NECK: LUNGS: Unlabored breathing, decreased breath sounds at bases. No wheeze. HEART: S1, S2. Regular rate and rhythm. ABDOMEN: Soft, no tenderness. EXTREMITIES: Bilateral lower extremity with multiple ulceration, slough tissue, redness, and minimal drainage. NEUROLOGICAL: The patient remains to be lethargic. Orientation could not be determined. LABS: Hemoglobin is 10.1, white count of 9.0, BUN of 48, creatinine is 1.13. Potassium 5.2. Liver enzymes are normal. CRP 70.6. Chest x-ray report mentioned above. DIAGNOSTIC IMPRESSION: Patient admitted to the hospital with bilateral lower extremity venous stasis ulcer and secondary cellulitis in this patient with previous culture positive for Pseudomonas. Will need to cover for the resistant gram-positive as well as gram-negative pathogen, both MRSA and Pseudomonas aeruginosa. PLAN: 1. Vancomycin, pharmacy to dose, target of 15 while watching his kidney function closely. 2. Cefepime 2 grams q.12 hours. 3. Recommend consultation with Dr. Burrell, the patient's local wound care physician with whom the patient's follow at [facility] as the patient refused his wound dressing to be changed by anybody except Dr. Burrell. 4. We will follow on his clinical condition and culture to further adjust medication if needed. Thank you for this consultation. Will follow this patient along with you. MMODL / IJN: [id number] /
[2020-02-06 05:57] LABS: Glucose,Whole Blood 263 mg/dL (75-99)
[2020-02-06] MEDS ORDERED: VANCOMYCIN IV PER PHARMACY 1 EACH MISC MISCELLANE PRN (07:49)
[2020-02-06 08:00] LABS: Anisocytosis Slight; Basophils % (A) 0 %; Eosinophils # (A) 0.4 k/uL (0-0.7); Eosinophils % (A) 4 %; HCT 31.8 % (39.0-53.0); HGB 9.6 gm/dL (13.0-17.5); Hypochromasia Marked; Lymphocytes # (A) 0.2 k/uL (1.0-4.8); Lymphocytes % (A) 1 %; MCH 29.6 pg (25.0-35.0); MCHC 30.1 g/dL (31.0-37.0); MCV 98.6 fL (80.0-100.0); Macrocytosis Slight; Mean Platelet Volume 6.8; Monocytes # (A) 0.2 k/uL (0-1.0); Monocytes % (A) 2 %; Neutrophils # (A) 9.7 k/uL (1.3-7.7); Neutrophils % (A) 92 %; Platelet Count 254 k/uL (150-450); RBC 3.22 m/uL (4.30-5.90); RDW 16.8 % (11.5-15.5); WBC 10.6 k/uL (3.8-10.6)
[2020-02-06] MEDS ORDERED: TIOTROPIUM 18 MCG/PUFF INHALER INHALATION SCH (08:00)
[2020-02-06 08:32] LABS: Calcium 8.9 mg/dL (8.4-10.2); Potassium 5.2 mmol/L (3.5-5.1)
[2020-02-06] MEDS: CEFEPIME 2 GM in SODIUM CHLORIDE 0.9% 100 ML IVPB SCH ×2 (08:33→20:56)
[2020-02-06] MEDS: FUROSEMIDE 10 MG/ML 4 ML VIAL IV SCH ×2 (08:33→20:55)
[2020-02-06] MEDS: GABAPENTIN 300 MG CAP PO SCH ×3 (08:33→20:55)
[2020-02-06] MEDS: PANTOPRAZOLE 40 MG/10 ML VIAL IV SCH (08:33)
[2020-02-06] MEDS: ALBUTEROL HFA INHALER INHALATION SCH ×2 (09:06→12:25)
--- NOTE | 2020-02-06 11:20 | P.PN ---
Subjective this is a pleasant 74 years old male with past medical history of bilateral lower extremity ulceration and cellulitis with pseudomonas about 6 or 7 months ago, peripheral vascular disease status post revascularization surgery, chronic kidney disease stage II to 3, chronic atrial fibrillation, history of coronary artery disease, history of heart failure and COPD, type 2 diabetes mellitus, diabetic neuropathy, hypertension, hyperlipidemia, as her arthritis, sleep apnea, pulmonary hypertension, mitral regurgitation, chronic hypoxic respiratory failure on 2 L oxygen via nasal cannula, history of depression. Patient was discharge on 01/09 for lower extremity cellulitis, he was sent to [facility] at that time. This time presents because of recurrent cellulitis of the lower extremities. Patient states that he has worsening cellulitis of the lower extremity for 1 week. Also he has been complaining of from dyspnea for more than one week with no associated chest pain. No significant coughing. Patient has chronic respiratory failure on a 3 L oxygen via nasal cannula, currently he is on 15 L/m. He was able to talk is only, not much of accessory muscles while he was sitting up in bed. Patient also states that recently he fell from his we'll with some head abrasions but no loss of consciousness as per patient, this was several days ago. Vitals reviewed and he is afebrile, his saturating 90s on 15 L oxygen via nasal cannula. Mildly tachypneic with respiratory rate 18-20 Chest x-ray: Low lung volume and cardiomegaly with suggestion of mild to moderate bilateral alveolar and interstitial edema and/or infiltrate, relates for CHF. No significant change from prior x-ray x-ray of the both tibia and fibula he wants subcutaneous edema, no fracture, no signs of osteomyelitis EKG showing normal sinus rhythm at [address]PM with no significant ST-T changes. In the emergency room he received vancomycin, also 1 dose of IV Lasix 40 mg. Infectious disease team was consulted from ED 02/06/2020 Today patient is more lethargic and drowsy, however he answers questions appropriately. He doesn't have any new complaint. Distal tachypneic with hypo phyllis, he needed high flow cannula with 50 L per minute flow rate and saturating 94%, and he still has cellulitis of both lower extremities. His CBC and BMP are stable. Influenza is negative. Comorbid test is pending although there is low suspicion for Covid pneumonia Her metastases on cefepime and IV vancomycin. Infectious disease input is appreciated and they recommended consult with . Pulmonary and cardiology team are also going to see the patient, for his acute hypoxia and possible right heart failure with valvular heart disease Review of Systems CONSTITUTIONAL: No fever, no malaise, no fatigue. HEENT: No recent visual problems or hearing problems. Denied any sore throat. CARDIOVASCULAR: No orthopnea, PND, no palpitations, no syncope. PULMONARY: no cough, no hemoptysis. GASTROINTESTINAL: No diarrhea, no nausea, no vomiting, no abdominal pain. Normoactive bowel sounds. NEUROLOGICAL: No headaches, no weakness, no numbness. HEMATOLOGICAL: Denies any bleeding or petechiae. GENITOURINARY: Denies any burning micturition, frequency, or urgency. Active Medications Generic Name Dose Route Start Last Admin Trade Name Freq PRN Reason Stop Dose Admin Acetaminophen 650 mg 02/04/20 16:57 Acetaminophen Tab 325 Mg Tab PO Q6HR PRN Mild Pain or Fever > 100.5 Albuterol Sulfate 2 puff 02/05/20 20:00 02/06/20 09:06 Albuterol Hfa Inhaler INHALATION 2 puff RT-QID JAIME Administration Albuterol Sulfate 2 puff 02/05/20 16:44 Albuterol Hfa Inhaler INHALATION RT-QID PRN Shortness Of Breath Albuterol/Ipratropium 3 ml 02/05/20 20:49 Ipratropium-Albuterol 3 Ml Neb INHALATION RT-Q2H PRN Shortness Of Breath Or Wheezing Furosemide 40 mg 02/05/20 21:00 02/06/20 08:33 Furosemide 10 Mg/Ml 4 Ml Vial IV 40 mg Q12HR JAIME Administration Gabapentin 600 mg 02/04/20 22:00 02/06/20 08:33 Gabapentin 300 Mg Cap PO 600 mg TID JAIME Administration Vancomycin HCl 1,500 mg/ 250 mls @ 125 mls/hr 02/05/20 09:00 02/06/20 00:31 Sodium Chloride IVPB 125 mls/hr Q16H JAIME Administration Sodium Chloride 1,000 mls @ 20 mls/hr 02/04/20 17:00 02/05/20 15:21 Saline 0.9% IV Not Given .Q24H JAIME Cefepime HCl 2 gm/ Sodium 100 mls @ 25 mls/hr 02/05/20 13:30 02/06/20 08:33 Chloride IVPB 25 mls/hr Q12HR JAIME Administration Morphine Sulfate 4 mg 02/04/20 16:57 02/06/20 00:33 Morphine Sulfate 4 Mg/Ml Syringe IV 4 mg Q4HR PRN Administration Severe Pain Naloxone HCl 0.2 mg 02/04/20 16:57 Naloxone 0.4 Mg/Ml 1 Ml Vial IV Q2M PRN Opioid Reversal Ondansetron HCl 4 mg 02/04/20 16:57 Ondansetron 4 Mg/2 Ml Vial IVP Q8HR PRN Nausea And Vomiting Pantoprazole Sodium 40 mg 02/05/20 09:00 02/06/20 08:33 Pantoprazole 40 Mg/10 Ml Vial IV 40 mg DAILY JAIME Administration Tiotropium [place] 1 puff 02/06/20 08:00 Tiotropium 18 Mcg/Puff Inhaler INHALATION RT-DAILY [facility] Objective - Vital Signs Vital signs: Vital Signs Temp 97.9 F 02/06/20 08:30 Pulse 84 02/06/20 08:30 Resp 22 02/06/20 08:30 BP 140/65 02/06/20 08:30 Pulse Ox 94 L 02/06/20 08:30 Intake & Output 02/05/20 02/06/20 02/06/20 18:59 06:59 18:59 Intake Total 480 0 Output Total 600 500 Balance -600 -20 0 Weight 40.5 kg Intake: Intake, IV Titration 240 Amount Cefepime 2 gm In Sodium 100 Chloride 0.9% 100 ml @ 25 mls/hr IVPB Q12HR [facility] Rx #:[id number] Sodium Chloride 0.9% 1, 140 000 ml @ 20 mls/hr IV . Q24H [facility] Rx#:[id number] Oral 240 0 Output: Urine 600 500 Uretheral (Burrell) 600 Other: Voiding Method Diaper Indwelling Catheter Indwelling Catheter Incontinent # Voids 1 - Exam -GENERAL: The patient is alert and oriented x3, more drowsy today, in [id number] respiratory distress. Some abrasions on the nasal branch and the left forehead HEENT: Pupils are round and equally reacting to light. EOMI. No scleral icterus. No conjunctival pallor. Normocephalic, atraumatic. No pharyngeal erythema. No thyromegaly. CARDIOVASCULAR: S1 and S2 present. No murmurs, rubs, or gallops. -PULMONARY: Chest is clear to auscultation, bilateral crepitation ABDOMEN: Soft, nontender, nondistended, normoactive bowel sounds. No palpable organomegaly. MUSCULOSKELETAL: No joint swelling or deformity. EXTREMITIES: No cyanosis, clubbing, or pedal edema. Both legs are pink patient with different areas of superficial ulceration with some pustular bases, no significant oozing NEUROLOGICAL: Gross neurological examination did not reveal any focal deficits. SKIN: No rashes. No petechiae - Labs CBC & Chem 7: 02/06/20 07:29 02/06/20 07:29 Labs: Abnormal Lab Results - Last 24 Hours (Table) 02/05/20 02/05/20 02/05/20 Range/Units 16:30 20:25 20:40 RBC (4.30-5.90) m/uL Hgb (13.0-17.5) gm/dL Hct (39.0-53.0) % MCHC (31.0-37.0) g/dL RDW (11.5-15.5) % Neutrophils # (1.3-7.7) k/uL Lymphocytes # (1.0-4.8) k/uL ABG pCO2 46 H (35-45) mmHg ABG pO2 73 L (83-108) mmHg ABG HCO3 28 H (21-25) mmol/L ABG Total CO2 30 H (19-24) mmol/L Sodium (137-145) mmol/L Potassium (3.5-5.1) mmol/L BUN (9-20) mg/dL Glucose (74-99) mg/dL POC Glucose (mg/dL) 266 H 207 H (75-99) mg/dL 02/06/20 02/06/20 02/06/20 Range/Units 05:56 07:29 07:29 RBC 3.22 L (4.30-5.90) m/uL Hgb 9.6 L (13.0-17.5) gm/dL Hct 31.8 L (39.0-53.0) % MCHC 30.1 L (31.0-37.0) g/dL RDW 16.8 H (11.5-15.5) % Neutrophils # 9.7 H (1.3-7.7) k/uL Lymphocytes # 0.2 L (1.0-4.8) k/uL ABG pCO2 (35-45) mmHg ABG pO2 (83-108) mmHg ABG HCO3 (21-25) mmol/L ABG Total CO2 (19-24) mmol/L Sodium 136 L (137-145) mmol/L Potassium 5.2 H (3.5-5.1) mmol/L BUN 53 H (9-20) mg/dL Glucose 194 H (74-99) mg/dL POC Glucose (mg/dL) 263 H (75-99) mg/dL Microbiology - Last 24 Hours (Table) 02/04/20 15:52 Blood Culture - Preliminary Blood No Growth after 24 hours Assessment and Plan Assessment: Recurrent bilateral lower extremity cellulitis. Acute hypoxic respiratory failure Possible acute heart failure, pneumonia is in the differential diagnosis. Recent fall several days ago with no loss of consciousness as per patient. Patient has abrasions on the face Recent history of Bilateral lower extremity ulceration and cellulitis with Pseudomonas from the wound cultures. Recent history of Left upper and lower lobe pneumonia peripheral vascular disease status post revascularization surgery in the past Chronic lower extremity pain for 5-6 months Acute on chronic hypoxic respiratory failure, resolved. Chronic kidney disease, stage II-III Chronic atrial fibrillation History of coronary artery disease Chronic congestive heart failure with unknown ejection fraction Chronic obstructive pulmonary disease, not in acute exacerbation Type 2 diabetes mellitus Diabetic neuropathy Hypertension Hyperlipidemia Osteoarthritis Sleep apnea Pulmonary hypertension Mitral regurgitation Chronic hypoxic respiratory failure and 2 L oxygen via nasal cannula History of depression obesity Plan: This is a pleasant 74 years old male who presents because of bilateral lower extremity cellulitis. with respiratory failure. Continue with IV vancomycin, cefepime. We'll follow-up recommendation by infectious disease team and the regarding antibiotics. Consult pulmonary team. Continue with Lasix. Check sputum culture and sensitivity. We will check covid. Labs and medication were reviewed.. Continue same treatment. Continue with symptomatic treatment. Resume home medication. Monitor lytes and vitals. DVT and GI prophylaxis. Further recommendations depends on the clinical course of the patient DVT prophylaxis: Subcutaneous heparin GI Prophylaxis: Pepcid PT/OT: Pending Prognosis is guarded
--- NOTE | 2020-02-06 12:26 | P.GSCN ---
History of Present Illness Consult date: 02/06/20 History of present illness: Deep is a 74-year-old male with multiple comorbidities who presented to the hospital again due to lethargy and lower extremity possible sinusitis. He is currently being treated. He has been in rehab center and did fall he denies a fevers, chills, nausea, vomiting or pain Past Medical History Past Medical History: Atrial Fibrillation, Coronary Artery Disease (CAD), Heart Failure, COPD, Diabetes Mellitus, Eye Disorder, Hyperlipidemia, Hypertension, Osteoarthritis (OA), Pneumonia, Renal Disease, Sleep Apnea/CPAP/BIPAP, Vascular Disorder Additional Past Medical History / Comment(s): Chronic anemia/procrit, hx CKD stage III, pulmonary HTN, home oxygen continuous at 2L NC, decreased vision bilaterally since CABG surgery, neuropathy bilateral legs/feet, chronic bilateral leg/foot pain, severe PVD, past bilateral lower leg/foot wounds and cellulitis, current bilateral lower leg wounds, sepsis d/t leg wounds 2018, mild gastritis, diverticular disease. no cpap used History of Any Multi-Drug Resistant Organisms: None Reported Past Surgical History: Adenoidectomy, Cardiac Valve Replacement, Heart Catheterization, Heart Catheterization With Stent, Tonsillectomy Additional Past Surgical History / Comment(s): 04/22/19 L leg angiogram, FAUSTINO, mitral valve repair 10/31/18, EGD, colonoscopies. one cardiac stent, Vascular surgery May 28 left leg Past Anesthesia/Blood Transfusion Reactions: No Reported Reaction Additional Past Anesthesia/Blood Transfusion Reaction / Comm: DIFF IV STARTS Date of Last Stent Placement:: fall 2018 Past Psychological History: No Psychological Hx Reported Smoking Status: Former smoker Past Alcohol Use History: Occasional Past Drug Use History: None Reported - Past Family History Father Family Medical History: Cancer Additional Family Medical History / Comment(s): stomach Mother Family Medical History: Congestive Heart Failure (CHF) Additional Family Medical History / Comment(s): AT AGE 68 Brother(s) Family Medical History: Cancer Medications and Allergies Home Medications Medication Instructions Recorded Confirmed Type Cholecalciferol [Vitamin D3 (25 1,000 unit PO DAILY 01/04/16 02/04/20 History Mcg = 1000 Iu)] Ferrous Sulfate [Iron (65 MG 650 mg PO DAILY 01/04/16 02/04/20 History Elemental)] Multivitamins, Thera [Multivitamin 1 tab PO DAILY 01/09/17 02/04/20 History (formulary)] Aspirin 81 mg PO DAILY 11/29/18 02/04/20 History Atorvastatin [Lipitor] 40 mg PO HS tab 12/13/18 02/04/20 Rx Clopidogrel Bisulfate [Plavix] 75 mg PO DAILY 05/24/19 02/04/20 History Escitalopram [Lexapro] 10 mg PO DAILY 05/24/19 02/04/20 History Glucagon Emergency Kit 1 mg IM ONCE PRN 06/07/19 02/04/20 History Lactobacillus Acidophilus 1 tab PO DAILY 06/07/19 02/04/20 History [Acidophilus] Acetaminophen Tab [Tylenol] 1,000 mg PO Q6HR PRN 01/03/20 02/04/20 History Albuterol Sulfate [Ventolin HFA] 1 - 2 puff INHALATION RT-Q4H PRN 01/03/20 02/04/20 History Gabapentin [Neurontin] 600 mg PO TID 01/03/20 02/04/20 History Insulin Detemir [Levemir Flextouch] 12 units SQ HS 01/03/20 02/04/20 History Magnesium Oxide [Mag-Ox] 400 mg PO BID 01/03/20 02/04/20 History Metoprolol Succinate (ER) [Toprol 25 mg PO DAILY 01/03/20 02/04/20 History XL] Omeprazole 20 mg PO DAILY 01/03/20 02/04/20 History Vitamin C Gummies 2 cap PO DAILY 01/03/20 02/04/20 History traMADol HCl [Ultram] 50 mg PO Q6H PRN #12 tab 01/10/20 02/04/20 Rx Insulin Lispro [humaLOG Kwikpen] See Protocol SQ ACHS 02/04/20 02/04/20 History Allergies Allergy/AdvReac Type Severity Reaction Status Date / Time No Known Allergies Allergy Verified 02/04/20 16:23 Surgical - Exam Vital Signs Temp Pulse Resp BP Pulse Ox 97.8 F 79 18 140/67 97 02/04/20 15:01 02/04/20 15:01 02/04/20 15:01 02/04/20 15:01 02/04/20 15:01 Gen. is a chronically ill-appearing male in no acute distress although on high flow nasal cannula. Heart is regular at this time lungs with decreased breath sounds. Abdomen is soft, nontender nondistended. Extremity show no clubbing, or cyanosis. He has relatively low edema for him. There is minimal erythema. No drainage or discharge. He has patchy areas of old wounds none of which appear to be infected. There is no foul odor. Lethargic. Normal mood, flattened affect Results - Labs 02/06/20 07:29 02/06/20 07:29 Abnormal Lab Results - Last 24 Hours (Table) 02/05/20 02/05/20 02/05/20 Range/Units 16:30 20:25 20:40 RBC (4.30-5.90) m/uL Hgb (13.0-17.5) gm/dL Hct (39.0-53.0) % MCHC (31.0-37.0) g/dL RDW (11.5-15.5) % Neutrophils # (1.3-7.7) k/uL Lymphocytes # (1.0-4.8) k/uL ABG pCO2 46 H (35-45) mmHg ABG pO2 73 L (83-108) mmHg ABG HCO3 28 H (21-25) mmol/L ABG Total CO2 30 H (19-24) mmol/L Sodium (137-145) mmol/L Potassium (3.5-5.1) mmol/L BUN (9-20) mg/dL Glucose (74-99) mg/dL POC Glucose (mg/dL) 266 H 207 H (75-99) mg/dL 02/06/20 02/06/20 02/06/20 Range/Units 05:56 07:29 07:29 RBC 3.22 L (4.30-5.90) m/uL Hgb 9.6 L (13.0-17.5) gm/dL Hct 31.8 L (39.0-53.0) % MCHC 30.1 L (31.0-37.0) g/dL RDW 16.8 H (11.5-15.5) % Neutrophils # 9.7 H (1.3-7.7) k/uL Lymphocytes # 0.2 L (1.0-4.8) k/uL ABG pCO2 (35-45) mmHg ABG pO2 (83-108) mmHg ABG HCO3 (21-25) mmol/L ABG Total CO2 (19-24) mmol/L Sodium 136 L (137-145) mmol/L Potassium 5.2 H (3.5-5.1) mmol/L BUN 53 H (9-20) mg/dL Glucose 194 H (74-99) mg/dL POC Glucose (mg/dL) 263 H (75-99) mg/dL Microbiology - Last 24 Hours (Table) 02/04/20 15:52 Blood Culture - Preliminary Blood No Growth after 24 hours Diabetes panel 02/06/20 Range/Units 07:29 Sodium 136 L (137-145) mmol/L Potassium 5.2 H (3.5-5.1) mmol/L Chloride 104 (98-107) mmol/L Carbon Dioxide 28 (22-30) mmol/L BUN 53 H (9-20) mg/dL Creatinine 1.22 (0.66-1.25) mg/dL Glucose 194 H (74-99) mg/dL Calcium 8.9 (8.4-10.2) mg/dL Calcium panel 02/06/20 Range/Units 07:29 Calcium 8.9 (8.4-10.2) mg/dL Pituitary panel 02/06/20 Range/Units 07:29 Sodium 136 L (137-145) mmol/L Potassium 5.2 H (3.5-5.1) mmol/L Chloride 104 (98-107) mmol/L Carbon Dioxide 28 (22-30) mmol/L BUN 53 H (9-20) mg/dL Creatinine 1.22 (0.66-1.25) mg/dL Glucose 194 H (74-99) mg/dL Calcium 8.9 (8.4-10.2) mg/dL Adrenal panel 02/06/20 Range/Units 07:29 Sodium 136 L (137-145) mmol/L Potassium 5.2 H (3.5-5.1) mmol/L Chloride 104 (98-107) mmol/L Carbon Dioxide 28 (22-30) mmol/L BUN 53 H (9-20) mg/dL Creatinine 1.22 (0.66-1.25) mg/dL Glucose 194 H (74-99) mg/dL Calcium 8.9 (8.4-10.2) mg/dL Assessment and Plan Assessment: #1 bilateral lower extremity wounds #2 bilateral lower extremity edema #3 chronic kidney disease #4 CHF #5 COPD Plan: At this time I do not believe the majority the patient's issues are due to his lower extremities. He appears the resume volume overload having cardiac respiratory issue more so than issues with cellulitis of his legs. For wound care we will just continue with Adaptic, Kerlix and Zi wraps at this time until we can re-apply Unna boots. As an outpatient and had multiple discussions regarding quality of life and hospice care, he does have a hospice nurse who has seen him. Multiple conversations have been had regarding his general decline and actively there is somewhat unattainable expectations by the patient and his family in regards to his severe multiple medical comorbidities. I do think it would be of benefit again to have palliative care hospice speak with the patient.
[2020-02-06 12:43] LABS: Glucose,Whole Blood 187 mg/dL (75-99)
--- NOTE | 2020-02-06 14:47 | P.CRDCN ---
History of Present Illness Consult date: 02/06/20 Reason for Consult (text): shortness of breath Chief complaint: Worsening cellulitis History of present illness: This is a 74-year-old gentleman with past medical history significant for coronary artery disease status post PCI of the LAD in September 2018, chronic diastolic congestive heart failure, hypertension, hyperlipidemia, diabetes, COPD, anemia, valvular heart disease status post mitral valve repair, peripheral vascular disease, underwent arthrectomy of the left popliteal with balloon angioplasty and successful stenting in May of this year by Dr. Carpio, bilateral lower extremity ulceration and cellulitis with Pseudomonas, the patient follows with Dr. Deng in the office. Patient was in the hospital in December, he returns at this time because of recurrent cellulitis of the lower extremities. Over the past one week or so the patient states he's noticed increase in redness and swelling, he's also had worsening shortness of breath, he denies any chest discomfort, no cough, also experienced a recent fall at home. A cardiology consultation was requested on this admission for congestive cardiac failure. His EKG on presentation here showed normal sinus rhythm with a first-degree AV block, PACs, nonspecific ST-T wave changes. Chest x-ray showed low lung volumes and cardiomegaly with suggestion of mild to moderate bilateral alveolar or stiff show edema and or infiltrates. Blood pressure 142/60, heart rate in the 80s. Afebrile. White blood cell count 10.6, hemoglobin 9.6, platelet count 254. Edema 136, potassium 5.2, BUN 53, creatinine 1.2, magnesium 2.0, BNP level 15,200. Influenza A and B-. Patient was initiated on IV Lasix, he is also currently on IV antibiotics. We will reinitiate the patient's baby aspirin, Lipitor, Plavix, and Lopressor. Continue to monitor the patient's intake and output along with daily weights and daily lytes BUN and creatinine. Past Medical History Past Medical History: Atrial Fibrillation, Coronary Artery Disease (CAD), Heart Failure, COPD, Diabetes Mellitus, Eye Disorder, Hyperlipidemia, Hypertension, Osteoarthritis (OA), Pneumonia, Renal Disease, Sleep Apnea/CPAP/BIPAP, Vascular Disorder Additional Past Medical History / Comment(s): Chronic anemia/procrit, hx CKD st age III, pulmonary HTN, home oxygen continuous at 2L NC, decreased vision bilaterally since CABG surgery, neuropathy bilateral legs/feet, chronic bilateral leg/foot pain, severe PVD, past bilateral lower leg/foot wounds and cellulitis, current bilateral lower leg wounds, sepsis d/t leg wounds 2018, mild gastritis, diverticular disease. no cpap used History of Any Multi-Drug Resistant Organisms: None Reported Past Surgical History: Adenoidectomy, Cardiac Valve Replacement, Heart Catheterization, Heart Catheterization With Stent, Tonsillectomy Additional Past Surgical History / Comment(s): 04/22/19 L leg angiogram, FAUSTINO, mitral valve repair 10/31/18, EGD, colonoscopies. one cardiac stent, Vascular surgery May 28 left leg Past Anesthesia/Blood Transfusion Reactions: No Reported Reaction Additional Past Anesthesia/Blood Transfusion Reaction / Comment(s): DIFF IV STARTS Date of Last Stent Placement:: fall 2018 Past Psychological History: No Psychological Hx Reported Smoking Status: Former smoker Past Alcohol Use History: Occasional Past Drug Use History: None Reported - Past Family History Father Family Medical History: Cancer Additional Family Medical History / Comment(s): stomach Mother Family Medical History: Congestive Heart Failure (CHF) Additional Family Medical History / Comment(s): AT AGE 68 Brother(s) Family Medical History: Cancer Medications and Allergies Home Medications Medication Instructions Recorded Confirmed Type Cholecalciferol [Vitamin D3 (25 1,000 unit PO DAILY 01/04/16 02/04/20 History Mcg = 1000 Iu)] Ferrous Sulfate [Iron (65 MG 650 mg PO DAILY 01/04/16 02/04/20 History Elemental)] Multivitamins, Thera [Multivitamin 1 tab PO DAILY 01/09/17 02/04/20 History (formulary)] Aspirin 81 mg PO DAILY 11/29/18 02/04/20 History Atorvastatin [Lipitor] 40 mg PO HS tab 12/13/18 02/04/20 Rx Clopidogrel Bisulfate [Plavix] 75 mg PO DAILY 05/24/19 02/04/20 History Escitalopram [Lexapro] 10 mg PO DAILY 05/24/19 02/04/20 History Glucagon Emergency Kit 1 mg IM ONCE PRN 06/07/19 02/04/20 History Lactobacillus Acidophilus 1 tab PO DAILY 06/07/19 02/04/20 History [Acidophilus] Acetaminophen Tab [Tylenol] 1,000 mg PO Q6HR PRN 01/03/20 02/04/20 History Albuterol Sulfate [Ventolin HFA] 1 - 2 puff INHALATION RT-Q4H PRN 01/03/20 02/04/20 History Gabapentin [Neurontin] 600 mg PO TID 01/03/20 02/04/20 History Insulin Detemir [Levemir Flextouch] 12 units SQ HS 01/03/20 02/04/20 History Magnesium Oxide [Mag-Ox] 400 mg PO BID 01/03/20 02/04/20 History Metoprolol Succinate (ER) [Toprol 25 mg PO DAILY 01/03/20 02/04/20 History XL] Omeprazole 20 mg PO DAILY 01/03/20 02/04/20 History Vitamin C Gummies 2 cap PO DAILY 01/03/20 02/04/20 History traMADol HCl [Ultram] 50 mg PO Q6H PRN #12 tab 01/10/20 02/04/20 Rx Insulin Lispro [humaLOG Kwikpen] See Protocol SQ ACHS 02/04/20 02/04/20 History Allergies Allergy/AdvReac Type Severity Reaction Status Date / Time No Known Allergies Allergy Verified 02/04/20 16:23 Physical Exam Vitals: Vital Signs Temp Pulse Pulse Resp BP BP Pulse Ox 02/06/20 11:41 98.0 F 84 20 143/65 90 L 02/06/20 11:40 91 L 02/06/20 08:30 97.9 F 84 22 140/65 94 L 02/06/20 08:00 84 22 02/06/20 03:59 98.1 F 67 22 93 L 02/06/20 03:19 96 02/06/20 00:46 95 02/06/20 00:00 97.9 F 91 20 122/78 92 L 02/05/20 20:48 95 02/05/20 20:31 92 L 02/05/20 20:00 98.0 F 97 22 115/67 92 L 02/05/20 16:59 94 L 02/05/20 16:42 86 02/05/20 16:41 92 L 02/05/20 16:39 81 02/05/20 16:00 85 18 02/05/20 15:14 98.2 F 85 18 143/67 98 02/05/20 14:51 98.2 F 80 22 133/72 96 Intake and Output 02/05/20 02/06/20 02/06/20 22:59 06:59 14:59 Intake Total 480 0 Output Total 600 500 Balance -600 -20 0 Intake: Intake, IV Titration 240 Amount Cefepime 2 gm In Sodium 100 Chloride 0.9% 100 ml @ 25 mls/hr IVPB Q12HR JAIME Rx #:[id number] Sodium Chloride 0.9% 1, 140 000 ml @ 20 mls/hr IV . Q24H JAIME Rx#:[id number] Oral 240 0 Output: Urine 600 500 Uretheral (Burrell) 600 Other: Voiding Method Diaper Indwelling Catheter Indwelling Catheter Incontinent # Voids 1 Weight 40.5 kg 40.5 kg PHYSICAL EXAMINATION: GENERAL: 74-year-old gentleman in no acute distress at the time of my examination HEENT: Head is atraumatic, normocephalic. Pupils equal, round. Sclera anicteric. Conjunctiva are clear. Mucous membranes of the mouth are moist. Neck is supple. There is no elevated jugular venous pressure. No carotid bruit is heard. HEART EXAMINATION: S1 and S2 with systolic murmur is heard CHEST EXAMINATION: Lungs are clear to auscultation and precussion. No chest wall tenderness is noted on palpation or with deep breathing. ABDOMEN: Soft, nontender. Bowel sounds are heard. No organomegaly noted. EXTREMITIES: 2+ peripheral pulses with 1+ evidence of peripheral edema , bilateral ear erythema, patchy areas of old wounds. and no calf tenderness noted. NEUROLOGIC [patient is sleepy, arousable Results 02/06/20 07:29 02/06/20 07:29 CBC 02/06/20 Range/Units 07:29 WBC 10.6 (3.8-10.6) k/uL RBC 3.22 L (4.30-5.90) m/uL Hgb 9.6 L (13.0-17.5) gm/dL Hct 31.8 L (39.0-53.0) % Plt Count 254 (150-450) k/uL Comprehensive Metabolic Panel 02/06/20 Range/Units 07:29 Sodium 136 L (137-145) mmol/L Potassium 5.2 H (3.5-5.1) mmol/L Chloride 104 (98-107) mmol/L Carbon Dioxide 28 (22-30) mmol/L BUN 53 H (9-20) mg/dL Creatinine 1.22 (0.66-1.25) mg/dL Glucose 194 H (74-99) mg/dL Calcium 8.9 (8.4-10.2) mg/dL Current Medications Generic Name Dose Route Start Last Admin Trade Name Freq PRN Reason Stop Dose Admin Acetaminophen 650 mg 02/04/20 16:57 Acetaminophen Tab 325 Mg Tab PO Q6HR PRN Mild Pain or Fever > 100.5 Albuterol/Ipratropium 3 ml 02/05/20 20:49 Ipratropium-Albuterol 3 Ml Neb INHALATION RT-Q2H PRN Shortness Of Breath Or Wheezing Budesonide/Formoterol Fumarate 2 puff 02/06/20 20:00 Symbicort 160-4.5 Mcg Inhaler INHALATION RT-BID JAIME Furosemide 40 mg 02/05/20 21:00 02/06/20 08:33 Furosemide 10 Mg/Ml 4 Ml Vial IV 40 mg Q12HR JAIME Administration Gabapentin 600 mg 02/04/20 22:00 02/06/20 08:33 Gabapentin 300 Mg Cap PO 600 mg TID JAIME Administration Sodium Chloride 1,000 mls @ 20 mls/hr 02/04/20 17:00 02/05/20 15:21 Saline 0.9% IV Not Given .Q24H JAIME Cefepime HCl 2 gm/ Sodium 100 mls @ 25 mls/hr 02/05/20 13:30 02/06/20 08:33 Chloride IVPB 25 mls/hr Q12HR JAIME Administration Vancomycin HCl 1,500 mg/ 250 mls @ 125 mls/hr 02/07/20 00:00 Sodium Chloride IVPB Q24H JAIME Morphine Sulfate 4 mg 02/04/20 16:57 02/06/20 00:33 Morphine Sulfate 4 Mg/Ml Syringe IV 4 mg Q4HR PRN Administration Severe Pain Naloxone HCl 0.2 mg 02/04/20 16:57 Naloxone 0.4 Mg/Ml 1 Ml Vial IV Q2M PRN Opioid Reversal Ondansetron HCl 4 mg 02/04/20 16:57 Ondansetron 4 Mg/2 Ml Vial IVP Q8HR PRN Nausea And Vomiting Pantoprazole Sodium 40 mg 02/05/20 09:00 02/06/20 08:33 Pantoprazole 40 Mg/10 Ml Vial IV 40 mg DAILY JAIME Administration Intake and Output 02/05/20 02/06/20 02/06/20 22:59 06:59 14:59 Intake Total 480 0 Output Total 600 500 Balance -600 -20 0 Intake: Intake, IV Titration 240 Amount Cefepime 2 gm In Sodium 100 Chloride 0.9% 100 ml @ 25 mls/hr IVPB Q12HR JAIME Rx #:[id number] Sodium Chloride 0.9% 1, 140 000 ml @ 20 mls/hr IV . Q24H JAIME Rx#:[id number] Oral 240 0 Output: Urine 600 500 Uretheral (Burrell) 600 Other: Voiding Method Diaper Indwelling Catheter Indwelling Catheter Incontinent # Voids 1 Weight 40.5 kg 40.5 kg Patient Weight 02/07/20 06:59 Weight 40.5 kg 02/06/20 07:29 02/06/20 07:29 EKG Interpretations (text) EKG shows a normal sinus rhythm with a first-degree AV block, nonspecific ST-T wave changes Assessment and Plan Plan: Assessment and plan #1 recurrent bilateral lower extremity cellulitis #2 diastolic congestive heart failure acute on chronic #3 possible pneumonia #4 recent history of bilateral lower extremity ulceration and cellulitis with Pseudomonas from the wound cultures #5 peripheral vascular disease status post revascularization #6 acute on chronic respiratory failure #7 chronic kidney disease stage II #8 paroxysmal atrial fibrillation, currently in normal sinus rhythm #9 hypertension #10 diabetes #11 hyperlipidemia #12 sleep apnea #13 history of mitral valve #14 history of depression Plan We'll repeat an echocardiogram with Doppler study. Continue current dose of IV Lasix. Resume the patient's aspirin, Plavix, beta sun and statin. Continue to monitor the patient's intake and output along with daily weights and daily lytes BUN and creatinine. DNP note has been reviewed, I agree with a documented findings and plan of care. Patient was seen and examined.
--- NOTE | 2020-02-06 14:49 | CONS ---
CONSULTATION PULMONARY/CRITICAL CARE CONSULTATION: DATE OF SERVICE: 02/06/2020. REASON FOR CONSULTATION: Hypoxemia. This is a 74-year-old male, well known to our service. He has a history of multiple medical problems including atrial fibrillation, CAD, CHF, COPD, diabetes, hyperlipidemia, hypertension, pneumonia, and sleep apnea syndrome. Anyway, the patient presented to the emergency room via EMS on 02/04/2020 at 1456. He apparently came in with cellulitis and possible sepsis. He also apparently was falling at the retirement. The patient apparently sustained some trauma and some abrasions to his facial and head area. Currently doing reasonably well. He is on AIRVO. Currently his AIRVO settings include a 50 L/minute and 75% FiO2. The patient appears to be relatively comfortable, though. He is a bit short of breath. He also has significant lower extremity edema and cellulitis. Denies any chest pain or chest discomfort. He is not coughing. Not producing any phlegm. Denies any nausea, vomiting, diarrhea, or abdominal pain. MEDICATIONS: Reviewed. They include vitamin D3, iron, aspirin, Plavix, Lexapro, glucagon, lactobacillus, Tylenol albuterol inhaler, gabapentin, insulin, magnesium oxide, metoprolol, omeprazole, vitamin C, gummy, insulin lispro, Lipitor and Tramadol. ALLERGIES: Denied. MEDICAL HISTORY: Reviewed. Includes atrial fibrillation, CAD, CHF, COPD, diabetes, hyperlipidemia, hypertension, osteoarthritis, pneumonia, and sleep apnea syndrome. In addition, the patient has a history of anemia of chronic disease, stage 3 chronic kidney disease, pulmonary hypertension, chronic hypoxemic respiratory failure, diabetic neuropathy, peripheral vascular disease, and chronic lower extremity cellulitis. SURGICAL HISTORY: Includes adenoidectomy, heart catheterization, stent placement, tonsillectomy, left angiogram, transesophageal echocardiogram, mitral valve repair, EGD, colonoscopy, and multiple vascular procedures. SOCIAL HISTORY: Positive for previous heavy tobacco use. Does not smoke currently. He drinks alcohol occasionally. No illicit drug use. FAMILY HISTORY: Positive for father with stomach cancer. Mother with congestive heart failure and a brother with cancer. REVIEW OF SYSTEMS: CONSTITUTIONAL; Negative. NEUROLOGIC: Negative. HEENT: Negative. CARDIOVASCULAR: Negative. PULMONARY: Shortness of breath GI negative negative. RHEUMATOLOGIC negative. IMMUNOLOGIC negative endocrinologic negative. DERMATOLOGIC negative. PHYSICAL EXAMINATION: VITAL SIGNS: Current vital signs are reviewed temperature is heart rate 84, respiratory rate 20, blood pressure 143/65 mean 91, and saturations are 90 90% on 50 L/minutes and 75% FiO2. AIRVO. Appears in no acute distress. HEENT: Examination is grossly unremarkable. AIRVO cannula in place. NECK: Supple full range of motion. No adenopathy. Neck veins are flat. CARDIOVASCULAR: Examination reveals distant heart sounds. Heart rate mid 80s. S1, S2 normal. There is no murmur. LUNGS: Reveal bibasilar crackles. A few scattered rhonchi. No wheezes. ABDOMEN: Soft. EXTREMITIES: Reveal edema, pitting. There is some lower extremity cellulitis. SKIN: Without rash, other than cellulitic changes and multiple areas of ecchymoses. NEUROLOGIC: Examination is brief but nonfocal. LABS: Reviewed. White count 10.6, hemoglobin 9.6, hematocrit 31.8, platelet count 254,000, blood gases show pO2 of 73, pCO2 46 and a pH of 7.40. This is yesterday. Sodium 136, potassium 5.2, chloride 104, CO2 is 28, anion gap is 4. BUN and creatinine were 53 and 1.32[place] [address]. Influenza A and B studies were negative. Microbiologic studies including blood cultures were negative. Chest x-ray is consistent with fluid overload/congestive heart failure. Medications are reviewed. Currently, the patient is on Tylenol, albuterol inhaler, cefepime, Lasix, gabapentin, DuoNeb, morphine sulfate, Narcan, Zofran, Protonix, and vancomycin. ASSESSMENT: 1. Hypoxemia, secondary to fluid overload/congestive heart failure. 2. History of atrial fibrillation. 3. Coronary artery disease. 4. History of heart failure. 5. COPD. 6. Diabetes mellitus. 7. Hyperlipidemia. 8. History of essential hypertension. 9. Degenerative joint disease. 10.Prior history of pneumonia. 11.Stage 3 chronic kidney disease. 12.History of sleep apnea syndrome, maintained on CPAP. 13.Anemia of chronic disease. 14.Pulmonary hypertension. 15.Chronic hypoxemic respiratory failure. 16.Status post mitral valve replacement. 17.Multiple other medical problems and comorbidities including lower extremity cellulitis. PLAN: Currently, the patient is on oxygen and updrafts. I believe his primary process is that of CHF. No additional recommendations are made. Will continue to follow. I will add some Symbicort 2 puffs twice a day. MMODL / IJN: [id number] /
[2020-02-06] MEDS: ASPIRIN 81 MG PO SCH (16:13)
[2020-02-06 17:06] LABS: Glucose,Whole Blood 260 mg/dL (75-99)
[2020-02-06] MEDS: SODIUM CHLORIDE 0.9% 1,000 ML IV SCH (18:44)
[2020-02-06] MEDS: SYMBICORT 160-4.5 MCG INHALER INHALATION SCH (20:18)
[2020-02-06] MEDS: ATORVASTATIN 40 MG TAB PO SCH (20:56)
[2020-02-06 22:07] LABS: Glucose,Whole Blood 266 mg/dL (75-99)
--- NOTE | 2020-02-06 22:21 | PN ---
PROGRESS NOTE DATE OF SERVICE: 02/06/2020 REASON FOR FOLLOWUP: 1. Bilateral lower extremity venostasis ulcer and cellulitis. 2. Question of pneumonia. INTERVAL HISTORY: Patient is currently afebrile. The patient is hemodynamically stable. The patient was sleepy and lethargic and unable to provide any history. Still requiring high-flow nasal cannula oxygen. No vomiting or diarrhea. No other changes reported by nursing staff. PHYSICAL EXAMINATION: Blood pressure 132/71 with a pulse of 91, temperature 97.6. He is on 94% on 15 L oxygen. General description is an elderly male lying in bed in no distress. Respiratory system: Unlabored breathing. EXTREMITIES: Bilateral lower extremities with swelling and redness and some superficial ulceration, minimal drainage. LABS: Hemoglobin 9.8, white count 10.6, BUN of 23, creatinine 1.22. Covid testing is pending. Blood culture so far negative. DIAGNOSTIC IMPRESSION AND PLAN: Patient with bilateral lower extremity venostasis ulcer with secondary cellulitis and a question of possible pneumonia. The patient is currently covered with cefepime and vancomycin to continue. Local wound care per Vascular Surgery and monitor clinical course closely. MMODL / IJN: [id number] /
[2020-02-06] MEDS: INSULIN ASPART (NovoLOG) 100 UNIT/ML VIAL SQ SCH (22:45)
[2020-02-07] MEDS ORDERED: VANCOMYCIN 1,500 MG in SODIUM CHLORIDE 0.9% 250 ML IVPB SCH ×2
[2020-02-07] MEDS: IPRATROPIUM-ALBUTEROL 3 ML NEB INHALATION PRN ×2 (02:35→09:12)
--- NOTE | 2020-02-07 02:57 | XR ---
EXAM: XR Chest, 1 View CLINICAL HISTORY: ITS.REASON XR Reason: Resp distress TECHNIQUE: Frontal view of the chest. COMPARISON: 02/04/20 FINDINGS: Persistent patchy lung opacities, increased at the left mid-lower lung. Probable left pleural effusion. Stable cardiomediastinal silhouette. Additional findings similar to prior. IMPRESSION: Interval increase in left lung opacities. Correlate clinically regarding infection or edema.
[2020-02-07 06:38] LABS: Glucose,Whole Blood 173 mg/dL (75-99)
[2020-02-07] MEDS: INSULIN ASPART (NovoLOG) 100 UNIT/ML VIAL SQ SCH ×4 (07:00→22:25)
[2020-02-07] MEDS: SYMBICORT 160-4.5 MCG INHALER INHALATION SCH ×2 (09:12→20:04)
[2020-02-07] MEDS: GABAPENTIN 300 MG CAP PO SCH ×3 (09:56→22:24)
[2020-02-07] MEDS: ASPIRIN 81 MG PO SCH (09:56)
[2020-02-07] MEDS: PANTOPRAZOLE 40 MG TABLET PO SCH (09:56)
[2020-02-07] MEDS: MORPHINE SULFATE 4 MG/ML SYRINGE IV PRN ×2 (09:56→22:28)
[2020-02-07] MEDS: METOPROLOL SUCCINATE (ER) 25 MG TAB.ER.24H PO SCH (09:56)
[2020-02-07] MEDS: CHOLECALCIFEROL 1,000 UNIT TAB PO SCH (09:56)
[2020-02-07] MEDS: FUROSEMIDE 10 MG/ML 4 ML VIAL IV SCH ×2 (09:56→22:24)
[2020-02-07] MEDS: CEFEPIME 2 GM in SODIUM CHLORIDE 0.9% 100 ML IVPB SCH ×2 (09:56→22:24)
[2020-02-07 11:48] LABS: Glucose,Whole Blood 219 mg/dL (75-99)
[2020-02-07 12:45] LABS: African American GFR (CKD) >90 (>60 ml/min/1.73 sqM); Anion Gap 4 mmol/L; Blood Urea Nitrogen 52 mg/dL (9-20); Calcium 8.7 mg/dL (8.4-10.2); Carbon Dioxide 30 mmol/L (22-30); Chloride 105 mmol/L (98-107); Glucose 219 mg/dL (74-99); Non-African American GFR(CKD) 82 (>60 ml/min/1.73 sqM); Potassium 4.8 mmol/L (3.5-5.1); Sodium 139 mmol/L (137-145)
[2020-02-07 13:02] LABS: Anisocytosis Slight; Basophils % (A) 0 %; Eosinophils # (A) 0.9 k/uL (0-0.7); Eosinophils % (A) 10 %; HGB 10.2 gm/dL (13.0-17.5); Hypochromasia Slight; Lymphocytes # (A) 0.2 k/uL (1.0-4.8); Lymphocytes % (A) 2 %; MCH 30.5 pg (25.0-35.0); MCHC 31.9 g/dL (31.0-37.0); MCV 95.7 fL (80.0-100.0); Mean Platelet Volume 8.1; Monocytes # (A) 0.4 k/uL (0-1.0); Monocytes % (A) 5 %; Neutrophils # (A) 7.4 k/uL (1.3-7.7); Neutrophils % (A) 82 %; Platelet Count 209 k/uL (150-450); RBC 3.34 m/uL (4.30-5.90); RDW 16.5 % (11.5-15.5)
--- NOTE | 2020-02-07 15:06 | P.PN ---
Subjective Progress Note Date: 02/07/20 Principal diagnosis: This is a very pleasant 74-year-old gentleman with a known history of atrial fibrillation, coronary artery disease, congestive heart failure, COPD, diabetes, hyperlipidemia, hypertension, obstructive sleep apnea. He presented to the emergency room on 02/04/2020 with suspected sepsis sepsis secondary to cellulitis. He was transferred from an extended care facility. He had sustained some trauma and had abrasions to head and face.Chest x-ray revealed evidence of fluid volume overload/congestive heart failure. He remains on the airflow high flow oxygen device at 60 L and 65% FiO2. He was working with therapy earlier today and his O2 saturations dropped into the 70s. He is slow to recover but is back in the 90s now. Chest x-ray shows left lung opacities. Blood culture reveals no growth to date. White count 9.0. Hemoglobin 10.2. Sodium 139. Potassium 4.8. Creatinine 0.91. He is continued on DuoNeb inhalations, Symbicort, cefepime and vancomycin. He is also on IV diuretics. Objective - Vital Signs Vital signs: Vital Signs Temp 96.4 F L 02/07/20 08:00 Pulse 100 02/07/20 09:26 Resp 24 02/07/20 03:17 BP 131/72 02/07/20 08:00 Pulse Ox 92 L 02/07/20 11:18 Intake & Output 02/06/20 02/07/20 02/07/20 18:59 06:59 18:59 Intake Total 640 180 Output Total 775 1300 1000 Balance -135 1300 -820 Weight 40.5 kg 84.3 kg Intake: Oral 640 180 Output: Urine 775 1300 1000 Other: Voiding Method Indwelling Catheter Indwelling Catheter Indwelling Catheter # Voids 0 # Bowel Movements 0 - Exam GENERAL EXAM: Alert, pleasant 74-year-old gentleman, on AirVo at 60 L and 65% to maintain O2 saturations in the low 90s, comfortable in no apparent distress. HEAD: Normocephalic. EYES: Normal reaction of pupils, equal size. NOSE: Clear with pink turbinates. THROAT: No erythema or exudates. NECK: No masses, no JVD. CHEST: No chest wall deformity. LUNGS: Equal air entry with bilateral scattered rhonchi, crackles. CVS: S1 and S2 normal with no audible murmur, regular rhythm. ABDOMEN: No hepatosplenomegaly, normal bowel sounds, no guarding or rigidity. SPINE: No scoliosis or deformity SKIN: No rashes CENTRAL NERVOUS SYSTEM: No focal deficits, tone is normal in all 4 extremities. EXTREMITIES: There is no peripheral edema. No clubbing, no cyanosis. Peripheral pulses are intact. - Labs CBC & Chem 7: 02/07/20 11:56 02/07/20 11:56 Labs: Abnormal Lab Results - Last 24 Hours (Table) 02/06/20 02/06/20 02/07/20 Range/Units 17:03 21:55 06:34 RBC (4.30-5.90) m/uL Hgb (13.0-17.5) gm/dL Hct (39.0-53.0) % RDW (11.5-15.5) % Lymphocytes # (1.0-4.8) k/uL Eosinophils # (0-0.7) k/uL BUN (9-20) mg/dL Glucose (74-99) mg/dL POC Glucose (mg/dL) 260 H 266 H 173 H (75-99) mg/dL 02/07/20 02/07/20 02/07/20 Range/Units 11:45 11:56 11:56 RBC 3.34 L (4.30-5.90) m/uL Hgb 10.2 L (13.0-17.5) gm/dL Hct 32.0 L (39.0-53.0) % RDW 16.5 H (11.5-15.5) % Lymphocytes # 0.2 L (1.0-4.8) k/uL Eosinophils # 0.9 H (0-0.7) k/uL BUN 52 H (9-20) mg/dL Glucose 219 H (74-99) mg/dL POC Glucose (mg/dL) 219 H (75-99) mg/dL Microbiology - Last 24 Hours (Table) 02/04/20 15:52 Blood Culture - Preliminary Blood No Growth after 48 hours Assessment and Plan Assessment: 1 Acute hypoxic respiratory failure secondary to acute exacerbation of chronic diastolic congestive heart failure 2 Recurrent bilateral lower extremity cellulitis 3 coronary artery disease 4 History of congestive heart failure 5 Chronic obstructive pulmonary disease and 6 Diabetes mellitus 7 Hyperlipidemia 8 Hypertension 9 Degenerative joint disease 10 Chronic kidney disease, stage III 11 History of obstructive sleep apnea, maintained on CPAP 12 Anemia of chronic disease 13 Pulmonary hypertension 14 Chronic hypoxemic respiratory failure 15 Status post mitral valve replacement. 16 Poor overall functional performance based on the above-mentioned multiple comorbidities. Plan: The patient was seen and evaluated by Dr. Lalita Suazo 19 screen still pending. Chest x-ray reviewed Continue vancomycin and cefepime. Continue bronchodilators Continue IV diuretics We'll continue to follow I, the cosigning physician, performed a history & physical examination of the patient. Lungs sounds bilateral scattered rhonchi, crackles in the bases. Maintaining O2 saturations in the 90s on AirVo at 60 L and 65% FiO2.. I discussed the assessment and plan of care with my nurse practitioner, Valerie Kaur. I attest to the above note as dictated by her.
--- NOTE | 2020-02-07 15:37 | P.PN ---
Subjective Progress Note Date: 02/07/20 This is a 74-year-old gentleman with past medical history significant for coronary artery disease status post PCI of the LAD in September 2018, chronic diastolic congestive heart failure, hypertension, hyperlipidemia, diabetes, COPD, anemia, valvular heart disease status post mitral valve repair, peripheral vascular disease, underwent arthrectomy of the left popliteal with balloon angioplasty and successful stenting in May of this year by Dr. Carpio, bilateral lower extremity ulceration and cellulitis with Pseudomonas, the patient follows with Dr. Deng in the office. Patient was in the hospital in December, he returns at this time because of recurrent cellulitis of the lower extremities. Over the past one week or so the patient states he's noticed increase in redness and swelling, he's also had worsening shortness of breath, he denies any chest discomfort, no cough, also experienced a recent fall at home. A cardiology consultation was requested on this admission for congestive cardiac failure. His EKG on presentation here showed normal sinus rhythm with a first-degree AV block, PACs, nonspecific ST-T wave changes. Chest x-ray showed low lung volumes and cardiomegaly with suggestion of mild to moderate bilateral alveolar or stiff show edema and or infiltrates. Blood pressure 142/60, heart rate in the 80s. Afebrile. White blood cell count 10.6, hemoglobin 9.6, platelet count 254. Edema 136, potassium 5.2, BUN 53, creatinine 1.2, magnesium 2.0, BNP level 15,200. Influenza A and B-. Patient was initiated on IV Lasix, he is also currently on IV antibiotics. We will reinitiate the patient's baby aspirin, Lipitor, Plavix, and Lopressor. Continue to monitor the patient's intake and output along with daily weights and daily lytes BUN and creatinine. 02/07/2020 Patient was seen and examined this morning, blood pressure 132/60, heart rate in the 70s, 95% on high flow cannula. Blood cell count 9.0, hemoglobin 10.2, platelet count 209. Sodium 139, potassium 4.8, BUN 52, creatinine 0.9. Objective - Vital Signs Vital signs: Vital Signs Temp 97.7 F 02/07/20 12:00 Pulse 74 02/07/20 12:00 Resp 24 02/07/20 03:17 BP 132/63 02/07/20 12:00 Pulse Ox 95 02/07/20 12:00 Intake & Output 02/06/20 02/07/20 02/07/20 18:59 06:59 18:59 Intake Total 640 180 Output Total 775 1300 1000 Balance -135 -1300 -820 Weight 40.5 kg 84.3 kg Intake: Oral 640 180 Output: Urine 775 1300 1000 Other: Voiding Method Indwelling Catheter Indwelling Catheter Indwelling Catheter # Voids 0 # Bowel Movements 0 - Exam PHYSICAL EXAMINATION: GENERAL: 74-year-old gentleman in no acute distress at the time of my examination HEENT: Head is atraumatic, normocephalic. Pupils equal, round. Sclera anicteric. Conjunctiva are clear. Mucous membranes of the mouth are moist. Neck is supple. There is no elevated jugular venous pressure. No carotid bruit is heard. HEART EXAMINATION: S1 and S2 with systolic murmur is heard CHEST EXAMINATION: Lungs are clear to auscultation and precussion. No chest wall tenderness is noted on palpation or with deep breathing. ABDOMEN: Soft, nontender. Bowel sounds are heard. No organomegaly noted. EXTREMITIES: 2+ peripheral pulses with 1+ evidence of peripheral edema , bilateral ear erythema, patchy areas of old wounds. and no calf tenderness note d. NEUROLOGIC [patient is alert and oriented - Labs CBC & Chem 7: 02/07/20 11:56 02/07/20 11:56 Labs: Abnormal Lab Results - Last 24 Hours (Table) 02/06/20 02/06/20 02/07/20 Range/Units 17:03 21:55 06:34 RBC (4.30-5.90) m/uL Hgb (13.0-17.5) gm/dL Hct (39.0-53.0) % RDW (11.5-15.5) % Lymphocytes # (1.0-4.8) k/uL Eosinophils # (0-0.7) k/uL BUN (9-20) mg/dL Glucose (74-99) mg/dL POC Glucose (mg/dL) 260 H 266 H 173 H (75-99) mg/dL 02/07/20 02/07/20 02/07/20 Range/Units 11:45 11:56 11:56 RBC 3.34 L (4.30-5.90) m/uL Hgb 10.2 L (13.0-17.5) gm/dL Hct 32.0 L (39.0-53.0) % RDW 16.5 H (11.5-15.5) % Lymphocytes # 0.2 L (1.0-4.8) k/uL Eosinophils # 0.9 H (0-0.7) k/uL BUN 52 H (9-20) mg/dL Glucose 219 H (74-99) mg/dL POC Glucose (mg/dL) 219 H (75-99) mg/dL Microbiology - Last 24 Hours (Table) 02/04/20 15:52 Blood Culture - Preliminary Blood No Growth after 48 hours Assessment and Plan Plan: Assessment and plan #1 recurrent bilateral lower extremity cellulitis #2 diastolic congestive heart failure acute on chronic #3 possible pneumonia #4 recent history of bilateral lower extremity ulceration and cellulitis with Pseudomonas from the wound cultures #5 peripheral vascular disease status post revascularization #6 acute on chronic respiratory failure #7 chronic kidney disease stage II #8 paroxysmal atrial fibrillation, currently in normal sinus rhythm #9 hypertension #10 diabetes #11 hyperlipidemia #12 sleep apnea #13 history of mitral valve #14 history of depression Plan We'll repeat an echocardiogram with Doppler study. Continue current dose of IV Lasix. DNP note has been reviewed, I agree with a documented findings and plan of care. Patient was seen and examined.
[2020-02-07 16:49] LABS: Glucose,Whole Blood 266 mg/dL (75-99)
--- NOTE | 2020-02-07 17:23 | P.PN ---
Subjective Progress Note Date: 02/07/20 74-year-old gentleman with a known history of atrial fibrillation, coronary artery disease, congestive heart failure, COPD, diabetes, hyperlipidemia, hypertension, obstructive sleep apnea. He presented to the emergency room on 02/04/2020 with suspected sepsis sepsis secondary to cellulitis. He was trans ferred from an extended care facility. He had sustained some trauma and had abrasions to head and face.Chest x-ray revealed evidence of fluid volume overload/congestive heart failure. He remains on the airflow high flow oxygen device at 60 L and 65% FiO2. He was working with therapy earlier today and his O2 saturations dropped into the 70s. He is slow to recover but is back in the 90s now. Chest x-ray shows left lung opacities. Blood culture reveals no growth to date. White count 9.0. Hemoglobin 10.2. Sodium 139. Potassium 4.8. Creatinine 0.91. He is continued on DuoNeb inhalations, Symbicort, cefepime and vancomycin. He is also on IV diuretics. Objective - Vital Signs Vital signs: Vital Signs Temp 97.6 F 02/07/20 02:29 Pulse 100 02/07/20 09:26 Resp 24 02/07/20 03:17 BP 161/91 02/07/20 03:17 Pulse Ox 98 02/07/20 03:17 Intake & Output 02/06/20 02/07/20 02/07/20 18:59 06:59 18:59 Intake Total 640 Output Total 775 1300 Balance -135 -1300 Weight 40.5 kg 84.3 kg Intake: Oral 640 Output: Urine 775 1300 Other: Voiding Method Indwelling Catheter Indwelling Catheter - Exam GENERAL EXAM: Alert, pleasant 74-year-old gentleman, on AirVo at 60 L and 65% to maintain O2 saturations in the low 90s, comfortable in no apparent distress. HEAD: Normocephalic. EYES: Normal reaction of pupils, equal size. NOSE: Clear with pink turbinates. THROAT: No erythema or exudates. NECK: No masses, no JVD. CHEST: No chest wall deformity. LUNGS: Equal air entry with bilateral scattered rhonchi, crackles. CVS: S1 and S2 normal with no audible murmur, regular rhythm. ABDOMEN: No hepatosplenomegaly, normal bowel sounds, no guarding or rigidity. EXTREMITIES: There is no peripheral edema. No clubbing, no cyanosis. Pe ripheral pulses are intact. - Labs CBC & Chem 7: 02/07/20 11:56 02/07/20 11:56 Labs: Abnormal Lab Results - Last 24 Hours (Table) 02/06/20 02/06/20 02/06/20 Range/Units 07:29 12:21 17:03 POC Glucose (mg/dL) 187 H 260 H (75-99) mg/dL Procalcitonin 0.51 H (0.02-0.09) ng/mL 02/06/20 02/07/20 Range/Units 21:55 06:34 POC Glucose (mg/dL) 266 H 173 H (75-99) mg/dL Procalcitonin (0.02-0.09) ng/mL Microbiology - Last 24 Hours (Table) 02/04/20 15:52 Blood Culture - Preliminary Blood No Growth after 48 hours Assessment and Plan Assessment: 1. Acute hypoxic respiratory failure secondary to acute exacerbation diastolic CHF - Continue with bronchodilators and O2 per nasal cannula and venous tolerated; Symbicort inhaler at twice a day dosing 2. Acute exacerbation diastolic CHF; remains on IV diuretic therapy; repeat chest x-ray as indicated above 3. Recurrent bilateral lower extremity cellulitis; continue with IV cefepime and vancomycin 4. Diabetes mellitus; Accu-Cheks every before meals and at bedtime with insulin sliding scale 5. Hypertension; metoprolol 25 mg daily 6. Hyperlipidemia; Lipitor 40 mg by mouth daily at bedtime DVT prophylaxis; SCDs CODE STATUS; full code
[2020-02-07] MEDS: VANCOMYCIN 1,500 MG in SODIUM CHLORIDE 0.9% 250 ML IVPB SCH (17:55)
[2020-02-07] MEDS: SODIUM CHLORIDE 0.9% 1,000 ML IV SCH (17:55)
[2020-02-07 22:08] LABS: Glucose,Whole Blood 146 mg/dL (75-99)
[2020-02-07] MEDS: ATORVASTATIN 40 MG TAB PO SCH (22:24)
--- NOTE | 2020-02-07 22:34 | PN ---
PROGRESS NOTE DATE OF SERVICE: 02/07/2020 REASON FOR FOLLOWUP: Bilateral lower extremity cellulitis ulcer and question of pneumonia. INTERVAL HISTORY: Patient is currently afebrile. The patient is more awake and alert today. He is breathing comfortably. Denies having any chest pain. Occasional cough. No vomiting. No abdominal pain. Denies any pain to the lower extremity. PHYSICAL EXAMINATION: Blood pressure 124/76, pulse of 73, temperature 96.8. He is 96% on high-flow oxygen. General description is an elderly male lying in bed in no distress. Respiratory system: Unlabored breathing, decreased breath sounds in the base. No wheeze. HEART: S1, S2. Regular rate and rhythm. Abdomen soft. No tenderness. Legs are currently wrapped up. No obvious drainage on the dressing. DIAGNOSTIC IMPRESSION AND PLAN: Patient admitted to the hospital with weakness, lethargy, patient did have bilateral lower extremity venostasis ulcer and cellulitis and a question of possible pneumonia. The patient is currently covered with vancomycin and cefepime, to continue while monitoring clinical course closely. Prognosis remains to be guarded. MMODL / IJN: [id number] /
[2020-02-08 06:41] LABS: Glucose,Whole Blood 161 mg/dL (75-99)
[2020-02-08] MEDS: INSULIN ASPART (NovoLOG) 100 UNIT/ML VIAL SQ SCH ×4 (06:43→22:27)
[2020-02-08 08:13] LABS: Anisocytosis Slight; Basophils % (A) 0 %; Eosinophils # (A) 0.8 k/uL (0-0.7); Eosinophils % (A) 12 %; HCT 32.9 % (39.0-53.0); HGB 10.2 gm/dL (13.0-17.5); Hypochromasia Marked; Lymphocytes # (A) 0.2 k/uL (1.0-4.8); Lymphocytes % (A) 3 %; MCH 30.8 pg (25.0-35.0); MCHC 30.9 g/dL (31.0-37.0); MCV 99.9 fL (80.0-100.0); Macrocytosis Slight; Monocytes # (A) 0.2 k/uL (0-1.0); Monocytes % (A) 3 %; Neutrophils # (A) 5.6 k/uL (1.3-7.7); Neutrophils % (A) 81 %; Platelet Count 223 k/uL (150-450); RDW 16.3 % (11.5-15.5); WBC 6.9 k/uL (3.8-10.6)
[2020-02-08 08:37] LABS: African American GFR (CKD) >90 (>60 ml/min/1.73 sqM); Anion Gap 5 mmol/L; Blood Urea Nitrogen 51 mg/dL (9-20); Calcium 8.8 mg/dL (8.4-10.2); Carbon Dioxide 28 mmol/L (22-30); Chloride 106 mmol/L (98-107); Glucose 182 mg/dL (74-99); Non-African American GFR(CKD) 81 (>60 ml/min/1.73 sqM); Sodium 139 mmol/L (137-145)
[2020-02-08 08:40] LABS: Potassium 5.1 mmol/L (3.5-5.1)
[2020-02-08] MEDS: FUROSEMIDE 10 MG/ML 4 ML VIAL IV SCH ×3 (09:34→22:27)
[2020-02-08] MEDS: CEFEPIME 2 GM in SODIUM CHLORIDE 0.9% 100 ML IVPB SCH ×2 (09:34→13:53)
[2020-02-08] MEDS: PANTOPRAZOLE 40 MG TABLET PO SCH (09:35)
[2020-02-08] MEDS: CHOLECALCIFEROL 1,000 UNIT TAB PO SCH (09:35)
[2020-02-08] MEDS: ASPIRIN 81 MG PO SCH (09:35)
[2020-02-08] MEDS: GABAPENTIN 300 MG CAP PO SCH ×3 (09:35→22:28)
[2020-02-08] MEDS: METOPROLOL SUCCINATE (ER) 25 MG TAB.ER.24H PO SCH (09:35)
[2020-02-08] MEDS: VANCOMYCIN 1,500 MG in SODIUM CHLORIDE 0.9% 250 ML IVPB SCH (09:37)
[2020-02-08] MEDS: SYMBICORT 160-4.5 MCG INHALER INHALATION SCH ×2 (09:57→20:27)
[2020-02-08 13:19] LABS: Glucose,Whole Blood 251 mg/dL (75-99)
[2020-02-08] MEDS: SODIUM CHLORIDE 0.9% 1,000 ML IV SCH (13:51)
--- NOTE | 2020-02-08 15:49 | P.PN ---
Subjective Progress Note Date: 02/08/20 Principal diagnosis: This is a very pleasant 74-year-old gentleman with a known history of atrial fibrillation, coronary artery disease, congestive heart failure, COPD, diabetes, hyperlipidemia, hypertension, obstructive sleep apnea. He presented to the emergency room on 02/04/2020 with suspected sepsis sepsis secondary to cellulitis. He was transferred from an extended care facility. He had sustained some trauma and had abrasions to head and face.Chest x-ray revealed evidence of fluid volume overload/congestive heart failure. He remains on the airflow high flow oxygen device at 60 L and 65% FiO2. He was working with therapy earlier today and his O2 saturations dropped into the 70s. He is slow to recover but is back in the 90s now. Chest x-ray shows left lung opacities. Blood culture reveals no growth to date. White count 9.0. Hemoglobin 10.2. Sodium 139. Potassium 4.8. Creatinine 0.91. He is continued on DuoNeb inhalations, Symbicort, cefepime and vancomycin. He is also on IV diuretics. The patient is seen today 02/08/2020 in follow-up on the selective care unit. He is currently awake and alert resting comfortably in bed. He is on the AirVo high flow oxygen device at 60 L and 65% FiO2. Maintaining O2 saturations in the mid 90s. He's been afebrile. Hemodynamically stable. Blood cultures reveal no growth. White count 6.9. Hemoglobin 10.2. Sodium 139. Potassium 5.1. Creatinine 0.92. CoVID 19 screen still pending. He remains on DuoNeb inhalations, Symbicort, cefepime and vancomycin. He is also on IV diuretics. Objective - Vital Signs Vital signs: Vital Signs Temp 97.7 F 02/08/20 08:00 Pulse 77 02/08/20 08:00 Resp 24 02/08/20 04:00 BP 135/65 02/08/20 08:00 Pulse Ox 94 L 02/08/20 08:00 Intake & Output 02/07/20 02/08/20 02/08/20 18:59 06:59 18:59 Intake Total 300 290 Output Total 1000 3000 600 Balance -700 -3000 -310 Weight 84.3 kg Intake: Oral 300 290 Output: Urine 1000 3000 600 Other: Voiding Method Indwelling Catheter Indwelling Catheter # Voids 0 0 0 # Bowel Movements 0 0 - Exam GENERAL EXAM: Alert, pleasant 74-year-old gentleman, on AirVo at 60 L and 65% to maintain O2 saturations in the low 90s, comfortable in no apparent distress. HEAD: Normocephalic. EYES: Normal reaction of pupils, equal size. NOSE: Clear with pink turbinates. THROAT: No erythema or exudates. NECK: No masses, no JVD. CHEST: No chest wall deformity. LUNGS: Equal air entry with bilateral scattered rhonchi, crackles. CVS: S1 and S2 normal with no audible murmur, regular rhythm. ABDOMEN: No hepatosplenomegaly, normal bowel sounds, no guarding or rigidity. SPINE: No scoliosis or deformity SKIN: No rashes CENTRAL NERVOUS SYSTEM: No focal deficits, tone is normal in all 4 extremities. EXTREMITIES: There is no peripheral edema. No clubbing, no cyanosis. Per ipheral pulses are intact. - Labs CBC & Chem 7: 02/08/20 07:54 02/08/20 07:54 Labs: Abnormal Lab Results - Last 24 Hours (Table) 02/07/20 02/07/20 02/08/20 Range/Units 16:45 22:03 06:28 RBC (4.30-5.90) m/uL Hgb (13.0-17.5) gm/dL Hct (39.0-53.0) % MCHC (31.0-37.0) g/dL RDW (11.5-15.5) % Lymphocytes # (1.0-4.8) k/uL Eosinophils # (0-0.7) k/uL BUN (9-20) mg/dL Glucose (74-99) mg/dL POC Glucose (mg/dL) 266 H 146 H 161 H (75-99) mg/dL 02/08/20 02/08/20 02/08/20 Range/Units 07:54 07:54 13:15 RBC 3.30 L (4.30-5.90) m/uL Hgb 10.2 L (13.0-17.5) gm/dL Hct 32.9 L (39.0-53.0) % MCHC 30.9 L (31.0-37.0) g/dL RDW 16.3 H (11.5-15.5) % Lymphocytes # 0.2 L (1.0-4.8) k/uL Eosinophils # 0.8 H (0-0.7) k/uL BUN 51 H (9-20) mg/dL Glucose 182 H (74-99) mg/dL POC Glucose (mg/dL) 251 H (75-99) mg/dL Microbiology - Last 24 Hours (Table) 02/04/20 15:52 Blood Culture - Preliminary Blood No Growth after 72 hours Assessment and Plan Assessment: 1 Acute hypoxic respiratory failure secondary to acute exacerbation of chronic diastolic congestive heart failure 2 Recurrent bilateral lower extremity cellulitis 3 coronary artery disease 4 History of congestive heart failure 5 Chronic obstructive pulmonary disease and 6 Diabetes mellitus 7 Hyperlipidemia 8 Hypertension 9 Degenerative joint disease 10 Chronic kidney disease, stage III 11 History of obstructive sleep apnea, maintained on CPAP 12 Anemia of chronic disease 13 Pulmonary hypertension 14 Chronic hypoxemic respiratory failure 15 Status post mitral valve replacement. 16 Poor overall functional performance based on the above-mentioned multiple comorbidities. Plan: The patient was seen and evaluated by Dr. Lalita Suazo 19 screen still pending. He is currently on Cipro now. On oral diuretics. Continue bronchodilators. Titrate down the FiO2 as tolerated. We'll continue to follow I, the cosigning physician, performed a history & physical examination of the patient. Lungs sounds bilateral scattered rhonchi, crackles in the bases. Maintaining O2 saturations in the 90s on AirVo at 60 L and 65% FiO2.. I discussed the assessment and plan of care with my nurse practitioner, Valerie Kaur. I attest to the above note as dictated by her.
[2020-02-08 16:37] LABS: Glucose,Whole Blood 236 mg/dL (75-99)
[2020-02-08] MEDS: CEPHALEXIN 500 MG CAP PO SCH ×2 (17:26→22:28)
--- NOTE | 2020-02-08 17:44 | XR ---
EXAMINATION TYPE: XR chest 1V DATE OF EXAM: 02/08/2020 COMPARISON: 02/07/2020 HISTORY: Short of breath TECHNIQUE: FINDINGS: Heart is enlarged. There is pulmonary interstitial and airspace edema. There are sternal wi res. There are chest leads. Trachea is midline. Bony thorax is intact. There is slight blunting of th e costophrenic angles. IMPRESSION: There is some pulmonary edema that is not significantly different than yesterday and coul d relate to heart failure or RDS.
--- NOTE | 2020-02-08 18:01 | P.PN ---
Subjective Progress Note Date: 02/08/20 74-year-old gentleman with a known history of atrial fibrillation, coronary artery disease, congestive heart failure, COPD, diabetes, hyperlipidemia, hypertension, obstructive sleep apnea. He presented to the emergency room on 02/04/2020 with suspected sepsis sepsis secondary to cellulitis. He was trans ferred from an extended care facility. He had sustained some trauma and had abrasions to head and face.Chest x-ray revealed evidence of fluid volume overload/congestive heart failure. He remains on the airflow high flow oxygen device at 60 L and 65% FiO2. He was working with therapy earlier today and his O2 saturations dropped into the 70s. He is slow to recover but is back in the 90s now. Chest x-ray shows left lung opacities. Blood culture reveals no growth to date. White count 9.0. Hemoglobin 10.2. Sodium 139. Potassium 4.8. Creatinine 0.91. He is continued on DuoNeb inhalations, Symbicort, cefepime and vancomycin. He is also on IV diuretics. 02/08/2020 Patient is seen and evaluated in follow-up on the selective care unit. He is currently awake and alert resting comfortably in bed. He is on the AirVo high flow oxygen device at 60 L and 65% FiO2. Maintaining O2 saturations in the mid 90s. He's been afebrile. Hemodynamically stable. Blood cultures reveal no growth. White count 6.9. Hemoglobin 10.2. Sodium 139. Potassium 5.1. Creatinine 0.92. CoVID 19 screen still pending. He remains on DuoNeb inhalations, Symbicort, cefepime and vancomycin. He is also on IV diuretics. Pulmonary and infectious disease service on board and antibiotics were switched to oral Keflex and Cipro Objective - Vital Signs Vital signs: Vital Signs Temp 97.8 F 02/08/20 04:00 Pulse 104 H 02/08/20 04:00 Resp 24 02/08/20 04:00 BP 146/78 02/08/20 04:00 Pulse Ox 93 L 02/08/20 04:00 Intake & Output 02/07/20 02/08/20 02/08/20 18:59 06:59 18:59 Intake Total 300 Output Total 1000 3000 Balance -700 -3000 Weight 84.3 kg Intake: Oral 300 Output: Urine 1000 3000 Other: Voiding Method Indwelling Catheter Indwelling Catheter # Voids 0 0 # Bowel Movements 0 0 - Exam GENERAL EXAM: Alert, pleasant 74-year-old gentleman, on AirVo at 60 L and 65% to maintain O2 saturations in the low 90s, comfortable in no apparent distress. HEAD: Normocephalic. EYES: Normal reaction of pupils, equal size. NOSE: Clear with pink turbinates. THROAT: No erythema or exudates. NECK: No masses, no JVD. CHEST: No chest wall deformity. LUNGS: Equal air entry with bilateral scattered rhonchi, crackles. CVS: S1 and S2 normal with no audible murmur, regular rhythm. ABDOMEN: No hepatosplenomegaly, normal bowel sounds, no guarding or rigidity. EXTREMITIES: There is no peripheral edema. No clubbing, no cyanosis. Peripheral pulses are intact. - Labs CBC & Chem 7: 02/08/20 07:54 02/08/20 07:54 Labs: Abnormal Lab Results - Last 24 Hours (Table) 02/07/20 02/07/20 02/07/20 Range/Units 11:45 11:56 11:56 RBC 3.34 L (4.30-5.90) m/uL Hgb 10.2 L (13.0-17.5) gm/dL Hct 32.0 L (39.0-53.0) % MCHC (31.0-37.0) g/dL RDW 16.5 H (11.5-15.5) % Lymphocytes # 0.2 L (1.0-4.8) k/uL Eosinophils # 0.9 H (0-0.7) k/uL BUN 52 H (9-20) mg/dL Glucose 219 H (74-99) mg/dL POC Glucose (mg/dL) 219 H (75-99) mg/dL 02/07/20 02/07/20 02/08/20 Range/Units 16:45 22:03 06:28 RBC (4.30-5.90) m/uL Hgb (13.0-17.5) gm/dL Hct (39.0-53.0) % MCHC (31.0-37.0) g/dL RDW (11.5-15.5) % Lymphocytes # (1.0-4.8) k/uL Eosinophils # (0-0.7) k/uL BUN (9-20) mg/dL Glucose (74-99) mg/dL POC Glucose (mg/dL) 266 H 146 H 161 H (75-99) mg/dL 02/08/20 02/08/20 Range/Units 07:54 07:54 RBC 3.30 L (4.30-5.90) m/uL Hgb 10.2 L (13.0-17.5) gm/dL Hct 32.9 L (39.0-53.0) % MCHC 30.9 L (31.0-37.0) g/dL RDW 16.3 H (11.5-15.5) % Lymphocytes # 0.2 L (1.0-4.8) k/uL Eosinophils # 0.8 H (0-0.7) k/uL BUN 51 H (9-20) mg/dL Glucose 182 H (74-99) mg/dL POC Glucose (mg/dL) (75-99) mg/dL Microbiology - Last 24 Hours (Table) 02/04/20 15:52 Blood Culture - Preliminary Blood No Growth after 72 hours Assessment and Plan Assessment: 1. Acute hypoxic respiratory failure secondary to acute exacerbation diastolic CHF - Continue with bronchodilators and O2 per nasal cannula and venous tolerated; Symbicort inhaler at twice a day dosing 2. Acute exacerbation diastolic CHF; remains on IV diuretic therapy; repeat chest x-ray as indicated above 3. Recurrent bilateral lower extremity cellulitis; continue with IV cefepime and vancomycin 4. Diabetes mellitus; Accu-Cheks every before meals and at bedtime with insulin sliding scale 5. Hypertension; metoprolol 25 mg daily 6. Hyperlipidemia; Lipitor 40 mg by mouth daily at bedtime DVT prophylaxis; SCDs CODE STATUS; full code
[2020-02-08] MEDS: LORazepam 2 MG/ML INJ IV PRN (18:08)
[2020-02-08 20:46] LABS: Glucose,Whole Blood 218 mg/dL (75-99)
--- NOTE | 2020-02-08 22:20 | PN ---
PROGRESS NOTE DATE OF SERVICE: 02/08/2020 REASON FOR FOLLOWUP: Bilateral lower extremity cellulitis. INTERVAL HISTORY: Patient is currently afebrile. The patient is hemodynamically stable. The patient denies having any chest pain. Complaining of . Denies cough. No sputum. No abdominal pain or worsening pain to the lower extremity. Patient has lost IV site and did not get antibiotics today. PHYSICAL EXAMINATION: Blood pressure 133/74 with a pulse of 72, temperature 97.7. He is 94% on room air. GENERAL DESCRIPTION: An elderly male lying in bed in no distress. RESPIRATORY SYSTEM: Unlabored breathing, decreased breath sounds at the bases. HEART: S1, S2. Regular rate and rhythm. ABDOMEN: No tenderness. EXTREMITIES: Legs are currently wrapped up. No obvious drainage on the dressing. LABS: Hemoglobin is 10.2, white count 6.9, BUN of 55, creatinine 0.92. Blood culture has been negative so far. DIAGNOSTIC IMPRESSION AND PLAN: Patient with bilateral lower extremity venostasis ulcer with secondary cellulitis. Chest x-ray mostly pulmonary edema and not consolidative changes. The patient has lost IV access and no one could place the IV. We will switch the wound to oral Cipro and Keflex and will monitor clinical course closely. Local care to continue per Vascular Surgery. MMODL / IJN: [id number] /
[2020-02-08] MEDS: ATORVASTATIN 40 MG TAB PO SCH (22:28)
[2020-02-08] MEDS: CIPROFLOXACIN HCL 500 MG TAB PO SCH (22:28)
[2020-02-09 06:46] LABS: Glucose,Whole Blood 130 mg/dL (75-99)
[2020-02-09] MEDS: PANTOPRAZOLE 40 MG TABLET PO SCH (08:57)
[2020-02-09] MEDS: ASPIRIN 81 MG PO SCH (08:57)
[2020-02-09] MEDS: LORazepam 2 MG/ML INJ IV PRN (08:57)
[2020-02-09] MEDS: FUROSEMIDE 10 MG/ML 4 ML VIAL IV SCH ×2 (08:57→21:03)
[2020-02-09] MEDS: CIPROFLOXACIN HCL 500 MG TAB PO SCH (08:57)
[2020-02-09] MEDS: METOPROLOL SUCCINATE (ER) 25 MG TAB.ER.24H PO SCH (08:57)
[2020-02-09] MEDS: GABAPENTIN 300 MG CAP PO SCH ×3 (08:57→21:03)
[2020-02-09] MEDS: CHOLECALCIFEROL 1,000 UNIT TAB PO SCH (08:57)
[2020-02-09] MEDS: CEPHALEXIN 500 MG CAP PO SCH (08:57)
[2020-02-09] MEDS: INSULIN ASPART (NovoLOG) 100 UNIT/ML VIAL SQ SCH ×4 (08:58→23:43)
[2020-02-09] MEDS: SYMBICORT 160-4.5 MCG INHALER INHALATION SCH (09:45)
[2020-02-09] MEDS: IPRATROPIUM-ALBUTEROL 3 ML NEB INHALATION PRN (09:45)
[2020-02-09] MEDS ORDERED: VANCOMYCIN 1,250 MG in SODIUM CHLORIDE 0.9% 250 ML IVPB SCH (12:00)
[2020-02-09 12:15] LABS: Glucose,Whole Blood 235 mg/dL (75-99)
[2020-02-09] MEDS ORDERED: propofoL 100 ML IV ONE ×2 (12:44→17:17)
[2020-02-09] MEDS ORDERED: ATROPINE SULFATE 0.1 MG/ML 10ML SYRINGE ONE (13:05)
[2020-02-09] MEDS ORDERED: AMIODARONE 50 MG/ML 3 ML VIAL IV ONE (13:05)
[2020-02-09] MEDS ORDERED: DEXTROSE 5% IN WATER 250 ML BAG IV ONE (13:05)
[2020-02-09] MEDS ORDERED: EPINEPHrine 10 ML SYRINGE (0.1 MG/ML) ONE (13:05)
[2020-02-09] MEDS ORDERED: NOREPINEPHRINE 1 MG/ML 4 ML VIAL IV ONE (13:05)
[2020-02-09] MEDS ORDERED: SODIUM BICARB 8.4% 50 ML SYR (1 MEQ/ML) ONE ×4 (13:05→13:54)
[2020-02-09] MEDS ORDERED: DEXTROSE 5% IN WATER 50 ML BAG ONE (13:05)
[2020-02-09 13:50] LABS: Glucose,Whole Blood 251 mg/dL (75-99)
[2020-02-09 14:14] LABS: Anisocytosis Slight; HCT 33.8 % (39.0-53.0); Hypochromasia Marked; MCH 30.5 pg (25.0-35.0); MCHC 29.6 g/dL (31.0-37.0); MCV 103.1 fL (80.0-100.0); Macrocytosis Moderate; Mean Platelet Volume 7.1; Platelet Count 361 k/uL (150-450); RBC 3.27 m/uL (4.30-5.90); RDW 16.2 % (11.5-15.5); WBC 15.7 k/uL (3.8-10.6)
--- NOTE | 2020-02-09 14:20 | P.EN ---
CODE BLUE note: Background: Patient was admitted in respiratory distress. Initially an A-team had been called and the POINTER MACHINE OPERATOR had intubated the patient. He became bradycardic during this process and received 0.5 of atropine 2. Patient then was noted have continued bradycardia. Arrived to the room and asystole was noted on the monitor. Chest compression started epi given followed by bicarb. IV infiltrated and not functioning properly. He developed V fib without pulse and underwent defib. ROSC X 1. He lost pulses again and CPR resume. Duration of code 25 minutes with 2 epsiodes of loss of pulse. Patient recieved multiple doses of epi and bicarb. He was also given a bolus of amio for V fib on the monitor. For further details please see code blue record. He was hypotensive after ROSC and was started on levophed. Dr. Celis placed a right groin TLC during the code. Patient transferred to the ICU. Report given to Dr. Matias who will be calling the family. On arrival to the ICU he was initially normotensive but was hypoxic. His vent settings were adjust to a peep of 8 with 100% FiO2 which improved oxygenation. He again became hypotensive and levo was increased and he received one additional amp of bicarb. CXR, Labs, and ABG ordered. 1. cardiac arrest- Asystole, V fib, and PEA during code - levophed - 2 complete amio bolus. - recevied 2L IVF
[2020-02-09 14:21] LABS: ABG Base Excess -3.8 mmol/L; ABG HCO3 25 mmol/L (21-25); ABG Oxygen Saturation 97.4 % (94-97); ABG PO2 102 mmHg (83-108); ABG TCO2 27 mmol/L (19-24); Allen Test Performed? Yes
[2020-02-09 14:25] LABS: Albumin 2.4 g/dL (3.5-5.0); Calcium 8.1 mg/dL (8.4-10.2); Magnesium 2.4 mg/dL (1.6-2.3); Potassium 5.1 mmol/L (3.5-5.1); Total Bilirubin 0.7 mg/dL (0.2-1.3); Total Protein 5.3 g/dL (6.3-8.2)
--- NOTE | 2020-02-09 14:31 | XR ---
EXAMINATION TYPE: XR chest 1V portable DATE OF EXAM: 02/09/2020 COMPARISON: 02/08/2020 HISTORY: Short of breath TECHNIQUE: FINDINGS: Heart is enlarged. There is pulmonary vascular congestion. There are sternal wires. There i s nasogastric tube in the stomach. Endotracheal tube is 3.4 cm from the tommy. There is blunting of the costophrenic angles bilaterally. IMPRESSION: Congestive heart failure with pleural effusions. Pleural fluid and pulmonary congestion s lightly worse than yesterday.
[2020-02-09 14:35] LABS: Phosphorus 9.7 mg/dL (2.5-4.5)
[2020-02-09 14:36] LABS: ABG PCO2 71 mmHg (35-45); ABG PH 7.16 (7.35-7.45)
[2020-02-09] MEDS ORDERED: AMIODARONE 360 MG in DEXTROSE 5% IN WATER 200 ML IV ONE ×2 (14:45)
[2020-02-09] MEDS ORDERED: VANCOMYCIN IV PER PHARMACY 1 EACH MISC MISCELLANE PRN (14:52)
[2020-02-09] MEDS: NOREPINEPHRINE 32 MG in SODIUM CHLORIDE 0.9% 218 ML IV SCH (15:05)
[2020-02-09] MEDS: IPRATROPIUM-ALBUTEROL 3 ML NEB INHALATION SCH ×2 (15:33→22:12)
[2020-02-09 15:51] LABS: ABG Base Excess -0.6 mmol/L; ABG HCO3 26 mmol/L (21-25); ABG Oxygen Saturation 96.8 % (94-97); ABG PCO2 51 mmHg (35-45); ABG PH 7.31 (7.35-7.45); ABG PO2 79 mmHg (83-108); ABG TCO2 27 mmol/L (19-24); Allen Test Performed? Yes
--- NOTE | 2020-02-09 15:58 | PN ---
PROGRESS NOTE PULMONARY/CRITICAL CARE PROGRESS NOTE: This is a 74-year-old gentleman who who we saw in consultation. He has a history of acute hypoxemic respiratory failure secondary to CHF. Apparently sometime today, the patient was found to be bradycardic. The patient became asystolic and he was intubated by the [employer]. The patient also developed pulseless electrical activity (PEA) and was resuscitated primarily by Dr. Benjamin from [facility]. When I arrived to the scene, the patient was intubated. Cardiopulmonary resuscitation was underway. I placed a right groin right femoral vein triple-lumen catheter. The patient was then transferred to the ICU. Currently, he is in the ICU on the ventilator. Currently, the patient is on the volume assist-control mode rate of 24, tidal volume 400, 100%, 5 of PEEP increased to 8, and blood gases show PO2 102, pCO2 71, and pH is 7.15. An art line will be placed. In addition, he has a history of bilateral lower extremity cellulitis, CAD, congestive heart failure, COPD, diabetes, hypertension, hyperlipidemia, DJD, stage 3 chronic kidney disease, sleep apnea syndrome, anemia of chronic disease, pulmonary hypertension, chronic hypoxemic respiratory failure, status post mitral valve replacement, and general medical debility. The primary service I believe Dr. Merrill's service apparently called the family about code status, but they wish the patient to be a FULL CODE. PHYSICAL EXAMINATION: VITAL SIGNS: Current vital signs are reviewed. Currently, temperature 98.3, heart rate 100, respiratory rate 24, blood pressure 90/60, saturations are 95%. Currently sedated. HEENT: Examination is grossly unremarkable. There is an orally placed endotracheal tube and NG tube. NECK: Supple, full range of motion. No adenopathy. Neck veins are flat. CARDIOVASCULAR: Examination reveals regular rhythm and rate. Heart rate 98. LUNGS: Reveal diffuse coarse rhonchi. Breath sounds are diminished. ABDOMEN: Soft. No bowel sounds. EXTREMITIES: Intact. There is severe cellulitis in bilateral lower extremities. There is significant edema and anasarca. SKIN: Skin is very thin. Skin also reveals multiple areas of ecchymoses. NEUROLOGIC: Examination cannot be assessed at this time. Prior to this, and prior to the code, the patient was awake and alert. CURRENT LAB DATA: Reviewed. White count 15.7, hemoglobin 10, hematocrit 33.8, platelet count 361,000. Blood gases as mentioned show a pO2 of 102, pCO2 71, and a pH of 7.16. The rate on the ventilator was increased from 24 to 32 breaths per minute. The PEEP was increased from 5 to 8. Sodium 145, potassium 5.1, chloride 108. CO2 29, anion gap is 8. BUN and creatinine were 52 and 1.6. Phosphorus is 9.7, calcium 8.1. His COVID status is currently still pending. Microbiology is currently negative. IMAGING: Chest x-ray shows changes of congestive heart failure. Endotracheal tube is 3.4 cm above the tracheal tommy. CURRENT MEDICATIONS: Reviewed. They will be adjusted accordingly. ASSESSMENT: 1. Status post cardiopulmonary arrest with bradycardia, asystole, and pulseless electrical activity, status post resuscitation. 2. Intubation and mechanical ventilation on February 08 for hypoxemic respiratory failure and cardiopulmonary arrest. 3. History of chronic diastolic congestive heart failure with an acute exacerbation. 4. Recurrent bilateral lower extremity cellulitis. 5. Coronary artery disease. 6. History of chronic obstructive pulmonary disease. 7. Diabetes mellitus. 8. Hyperlipidemia. 9. Essential hypertension. 10.Degenerative joint disease. 11.Stage 3 chronic kidney disease. 12.Sleep apnea, maintained on CPAP. 13.Anemia of chronic disease. 14.Pulmonary hypertension. 15.Status post mitral valve replacement. 16.General medical debility. PLAN: COVID-19 testing is pending. The patient had a right femoral vein triple-lumen catheter placed. We will place an art line. The patient was transferred to the ICU. The patient was intubated during the code by Anesthesia. No additional recommendations are made. Prognosis is guarded. Medications are reviewed. Unnecessary medications are discontinued. MMODL / IJN: [id number] /
--- NOTE | 2020-02-09 16:04 | PN ---
PROGRESS NOTE DATE OF SERVICE: 02/09/2020 REASON FOR FOLLOW UP: Lower extremity venous stasis ulcer and cellulitis and question of pneumonia. INTERVAL HISTORY: Patient did have a cardiac arrest this afternoon. The patient has been resuscitated, intubated and subsequently has been admitted to the ICU. Patient did require right groin femoral catheter for central access. He was slightly hypothermic this morning though and did have ventricle fibrillation as per discussion with physician running the code. Currently on a pressor support per the nursing staff. No history could be obtained from the patient. PHYSICAL EXAMINATION: Blood pressure 150/77, pulse of 80, temperature 98.3. He is 92% on 100% FiO2. General description is an elderly male, intubated on the vent. Respiratory system: Unlabored breathing, decreased breath sounds in the bases. Heart S1, S2. Regular rate and rhythm. Abdomen soft, no tenderness. EXTREMITIES: Currently wrapped up. No obvious drainage on the dressing. LABS: Hemoglobin is 10.3, white count 15.7, BUN of 52, creatinine 1.60. DIAGNOSTIC IMPRESSION AND PLAN: Patient with bilateral lower extremity venous stasis ulcers and cellulitis and concern for possible pneumonia now with acute respiratory failure on possible aspiration. Sputum culture will be requested. Antibiotic adjusted to vancomycin, cefepime. Kidney function will be monitored closely. Questions and concerns were answered. MMODL / IJN: [id number] /
--- NOTE | 2020-02-09 16:23 | P.PN ---
Subjective Progress Note Date: 02/09/20 74-year-old gentleman with a known history of atrial fibrillation, coronary artery disease, congestive heart failure, COPD, diabetes, hyperlipidemia, hypertension, obstructive sleep apnea. He presented to the emergency room on 02/04/2020 with suspected sepsis sepsis secondary to cellulitis. He was trans ferred from an extended care facility. He had sustained some trauma and had abrasions to head and face.Chest x-ray revealed evidence of fluid volume overload/congestive heart failure. He remains on the airflow high flow oxygen device at 60 L and 65% FiO2. He was working with therapy earlier today and his O2 saturations dropped into the 70s. He is slow to recover but is back in the 90s now. Chest x-ray shows left lung opacities. Blood culture reveals no growth to date. White count 9.0. Hemoglobin 10.2. Sodium 139. Potassium 4.8. Creatinine 0.91. He is continued on DuoNeb inhalations, Symbicort, cefepime and vancomycin. He is also on IV diuretics. 02/08/2020 Patient is seen and evaluated in follow-up on the selective care unit. He is currently awake and alert resting comfortably in bed. He is on the AirVo high flow oxygen device at 60 L and 65% FiO2. Maintaining O2 saturations in the mid 90s. He's been afebrile. Hemodynamically stable. Blood cultures reveal no growth. White count 6.9. Hemoglobin 10.2. Sodium 139. Potassium 5.1. Creatinine 0.92. CoVID 19 screen still pending. He remains on DuoNeb inhalations, Symbicort, cefepime and vancomycin. He is also on IV diuretics. Pulmonary and infectious disease service on board and antibiotics were switched to oral Keflex and Cipro 02/09/2020 CODE BLUE was called; patient was found to be in asystole; patient underwent cardiac resuscitation and intubation for 25 minutes; patient is placed on Levophed and is transferred to ICU; called patient's daughter Princess in detail of events was discussed; family will try to come and visit patient Objective - Vital Signs Vital signs: Vital Signs Temp 95.6 F L 02/09/20 04:00 Pulse 73 02/09/20 04:00 Resp 24 02/09/20 04:00 BP 143/72 02/09/20 04:00 Pulse Ox 99 02/09/20 04:00 Intake & Output 02/08/20 02/09/20 02/09/20 18:59 06:59 18:59 Intake Total 290 Output Total 600 2800 Balance -310 -2800 Weight 88.4 kg Intake: Oral 290 Output: Urine 600 2800 Other: Voiding Method Indwelling Catheter Indwelling Catheter # Voids 0 1 # Bowel Movements 0 - Exam GENERAL EXAM: Patient is intubated and mechanically ventilated HEAD: Normocephalic. NECK: No masses, no JVD. CHEST: No chest wall deformity. LUNGS: Equal air entry with bilateral scattered rhonchi, crackles. CVS: S1 and S2 normal with no audible murmur, regular rhythm. ABDOMEN: No hepatosplenomegaly, normal bowel sounds, no guarding or rigidity. EXTREMITIES: There is no peripheral edema. No clubbing, no cyanosis. Peripheral pulses are intact. - Labs CBC & Chem 7: 02/09/20 14:00 02/09/20 14:00 Labs: Abnormal Lab Results - Last 24 Hours (Table) 02/08/20 02/08/20 02/08/20 Range/Units 13:15 16:35 20:39 POC Glucose (mg/dL) 251 H 236 H 218 H (75-99) mg/dL 02/09/20 Range/Units 06:37 POC Glucose (mg/dL) 130 H (75-99) mg/dL Microbiology - Last 24 Hours (Table) 02/04/20 15:52 Blood Culture - Preliminary Blood No Growth after 96 hours Assessment and Plan Assessment: 1. Acute hypoxic respiratory failure secondary to acute exacerbation diastolic CHF - Continue with bronchodilators and O2 per nasal cannula and venous tolerated; Symbicort inhaler at twice a day dosing 2. Acute exacerbation diastolic CHF; remains on IV diuretic therapy; repeat chest x-ray as indicated above 3. Recurrent bilateral lower extremity cellulitis; continue with IV cefepime and vancomycin 4. Diabetes mellitus; Accu-Cheks every before meals and at bedtime with insulin sliding scale 5. Hypertension; metoprolol 25 mg daily 6. Hyperlipidemia; Lipitor 40 mg by mouth daily at bedtime DVT prophylaxis; SCDs CODE STATUS; full code
--- NOTE | 2020-02-09 16:25 | PCN ---
PROCEDURE NOTE PROCEDURE: Right femoral triple-lumen catheter. PREOP DIAGNOSIS: No IV access. POSTOP DIAGNOSIS: No IV access. OPERATORS: Dr. Celis and Dr. Kaur. The patient's procedure was done under emergency code situation. It was done in the patient's room. We used a right femoral site. There were no immediate complications. There was good blood return from all 3 ports. The catheter was sutured in place. Sterile dressing was applied by the nurse. No chest x-ray needed at this is a fem catheter. MMODL / IJN: [id number] /
--- NOTE | 2020-02-09 16:34 | PCN ---
PROCEDURE NOTE PREOPERATIVE DIAGNOSIS: 1. Hypotension. 2. Hemodynamic monitoring. POSTOPERATIVE DIAGNOSIS: 1. Hypotension. 2. Hemodynamic monitoring. RIGHT ARTERIAL LINE PLACEMENT: Indications: Hemodynamic monitoring. A time-out was completed verifying correct patient, procedure, site, positioning, and implant(s) or special equipment if applicable. Shayan's test was performed to ensure adequate perfusion. The patient right wrist was prepped and draped in sterile fashion. 1% Lidocaine was used to anesthetize the area. An 18G Arrow arterial line was introduced into the radial artery. The catheter was threaded over the guide wire and the needle was removed with appropriate pulsatile blood return. Blood loss was minimal. The catheter was then sutured in place to the skin and a sterile dressing applied. Perfusion to the extremity distal to the point of catheter insertion was checked and found to be adequate. The patient tolerated the procedure well and there were no complications. MMODL / IJN: [id number] /
[2020-02-09 17:47] LABS: Glucose,Whole Blood 224 mg/dL (75-99)
[2020-02-09] MEDS ORDERED: VANCOMYCIN 1,250 MG in SODIUM CHLORIDE 0.9% 250 ML IVPB ONE (18:00)
[2020-02-09] MEDS: SODIUM CHLORIDE 0.9% 1,000 ML IV SCH (19:04)
[2020-02-09] MEDS: CEFEPIME 2 GM in SODIUM CHLORIDE 0.9% 100 ML IVPB SCH (21:03)
[2020-02-09] MEDS: ATORVASTATIN 40 MG TAB PO SCH (21:03)
[2020-02-09] MEDS: CHLORHEXIDINE GLUCONATE 15 ML CUP MUCOUS MEM SCH (21:03)
[2020-02-09] MEDS: AMIODARONE 300 MG in DEXTROSE 5% IN WATER 250 ML IV SCH ×2 (21:04)
[2020-02-09 23:35] LABS: Glucose,Whole Blood 284 mg/dL (75-99)
[2020-02-10] MEDS: IPRATROPIUM-ALBUTEROL 3 ML NEB INHALATION SCH ×7 (01:36→23:43)
[2020-02-10 05:00] LABS: ABG HCO3 28 mmol/L (21-25); ABG PCO2 37 mmHg (35-45); ABG PH 7.49 (7.35-7.45); ABG PO2 157 mmHg (83-108); ABG TCO2 30 mmol/L (19-24); Allen Test Performed? Yes
[2020-02-10 05:05] LABS: Anisocytosis Slight; Basophils # (A) 0.1 k/uL (0-0.2); Basophils % (A) 0 %; Eosinophils # (A) 0.1 k/uL (0-0.7); Eosinophils % (A) 1 %; HCT 31.3 % (39.0-53.0); HGB 9.6 gm/dL (13.0-17.5); Hypochromasia Moderate; Lymphocytes # (A) 0.8 k/uL (1.0-4.8); Lymphocytes % (A) 5 %; MCH 29.1 pg (25.0-35.0); MCHC 30.5 g/dL (31.0-37.0); Mean Platelet Volume 7.4; Monocytes # (A) 0.8 k/uL (0-1.0); Monocytes % (A) 6 %; Neutrophils % (A) 87 %; Platelet Count 303 k/uL (150-450); RBC 3.28 m/uL (4.30-5.90); RDW 17.1 % (11.5-15.5); WBC 14.9 k/uL (3.8-10.6)
[2020-02-10 05:12] LABS: MCV 95.4 fL (80.0-100.0)
[2020-02-10 05:22] LABS: D-Dimer 8.76 mg/L FEU (<0.60)
[2020-02-10 05:32] LABS: Albumin 2.3 g/dL (3.5-5.0); C Reactive Protein 83.1 mg/L (<10.0); Calcium 8.1 mg/dL (8.4-10.2); Potassium 4.7 mmol/L (3.5-5.1); Total Bilirubin 0.6 mg/dL (0.2-1.3); Total Protein 5.2 g/dL (6.3-8.2)
[2020-02-10 06:01] LABS: Glucose,Whole Blood 249 mg/dL (75-99)
[2020-02-10] MEDS: AMIODARONE 300 MG in DEXTROSE 5% IN WATER 250 ML IV SCH ×4 (06:42→18:14)
[2020-02-10] MEDS: INSULIN ASPART (NovoLOG) 100 UNIT/ML VIAL SQ SCH ×5 (06:42→20:26)
[2020-02-10] MEDS: NOREPINEPHRINE 32 MG in SODIUM CHLORIDE 0.9% 218 ML IV SCH (06:48)
[2020-02-10] MEDS ORDERED: SODIUM CHLORIDE 0.9% 1,000 ML IV ONE (08:06)
--- NOTE | 2020-02-10 08:10 | XR ---
EXAMINATION TYPE: XR chest 1V portable DATE OF EXAM: 02/10/2020 COMPARISON: 02/09/2020 HISTORY: SOB, Follow Up FINDINGS: Indwelling tubes and catheters are unchanged. Pattern infiltrates persist without significant change. Suspect small right effusion. No evidence for pneumothorax. Stable appearance of the cardio-mediastinal structures at this time. IMPRESSION: 1. Stable portable chest. Clinical correlation and follow up until resolution is recommended.
[2020-02-10] MEDS ORDERED: PANTOPRAZOLE 40 MG/10 ML VIAL IVP SCH (09:00)
[2020-02-10] MEDS: CEFEPIME 2 GM in SODIUM CHLORIDE 0.9% 100 ML IVPB SCH (09:15)
[2020-02-10] MEDS: CHOLECALCIFEROL 1,000 UNIT TAB PO SCH (09:16)
[2020-02-10] MEDS: CHLORHEXIDINE GLUCONATE 15 ML CUP MUCOUS MEM SCH ×2 (09:16→20:25)
[2020-02-10] MEDS: ASPIRIN 81 MG PO SCH (09:16)
[2020-02-10] MEDS: GABAPENTIN 300 MG CAP PO SCH ×3 (09:17→20:25)
[2020-02-10] MEDS: SODIUM CHLORIDE 0.9% 1,000 ML IV SCH ×2 (09:23→20:27)
[2020-02-10 09:27] LABS: Glucose,Whole Blood 175 mg/dL (75-99)
[2020-02-10 09:49] LABS: Ferritin 658.7 ng/mL (22.0-322.0)
[2020-02-10 12:08] LABS: Glucose,Whole Blood 164 mg/dL (75-99)
--- NOTE | 2020-02-10 12:50 | P.CNNES ---
History of Present Illness Consult date: 02/10/20 Requesting physician: Conrad Howard Reason for Consult: Anoxic encephalopathy History of Present Illness: Patient is a 74-year-old male brought to the hospital by ambulance on 02/04/2020 for recurrence of cellulitis. Patient was being treated with antibiotics. Patient had a bradycardic episode yesterday at around 12:45 PM followed by cardiac arrest with asystole followed by V. fib arrest. Patient was intubated a nd placed on mechanical ventilation. CPR was continued for 25 minutes as per documentation from Dr Putnam, although nursing report was 31 minutes. Patient's blood test shows WBC 14.9 hemoglobin 9.6 and platelets are 303. PH 7.49, pO2 is 157 and pCO2 37. Sodium 140 potassium 4.7, BUN 67 creatinine 2.50, AST is 218, ALT 131. CK 156. Torres virus PCR negative on 01/07/2020. Patient's last computed tomography scan of head from 05/29/2019 showed no acute intracranial hemorrhage or midline shift. Left frontal scalp contusion and laceration. There is diffuse age-related cerebral atrophy and chronic small vessel ischemic change noted. Patient's last carotid Doppler from 10/29/2018 showed [id number] atherosclerotic changes without hemodynamically significant stenosis in either ICA. Antegrade flow in both vertebral arteries. Review of Systems ROS unobtainable: due to endotracheal tube, due to mental status Past Medical History Past Medical History: Atrial Fibrillation, Coronary Artery Disease (CAD), Heart Failure, COPD, Diabetes Mellitus, Eye Disorder, Hyperlipidemia, Hypertension, Osteoarthritis (OA), Pneumonia, Renal Disease, Sleep Apnea/CPAP/BIPAP, Vascular Disorder Additional Past Medical History / Comment(s): Chronic anemia/procrit, hx CKD stage III, pulmonary HTN, home oxygen continuous at 2L NC, decreased vision bilaterally since CABG surgery, neuropathy bilateral legs/feet, chronic bilateral leg/foot pain, severe PVD, past bilateral lower leg/foot wounds and cellulitis, current bilateral lower leg wounds, sepsis d/t leg wounds 2018, mild gastritis, diverticular disease. no cpap used History of Any Multi-Drug Resistant Organisms: None Reported Past Surgical History: Adenoidectomy, Cardiac Valve Replacement, Heart Catheterization, Heart Catheterization With Stent, Tonsillectomy Additional Past Surgical History / Comment(s): 04/22/19 L leg angiogram, FAUSTINO, mitral valve repair 10/31/18, EGD, colonoscopies. one cardiac stent, Vascular surgery May 28 left leg Past Anesthesia/Blood Transfusion Reactions: No Reported Reaction Additional Past Anesthesia/Blood Transfusion Reaction / Comment(s): DIFF IV STARTS Date of Last Stent Placement:: fall 2018 Past Psychological History: No Psychological Hx Reported Smoking Status: Former smoker Past Alcohol Use History: Occasional Past Drug Use History: None Reported - Past Family History Father Family Medical History: Cancer Additional Family Medical History / Comment(s): stomach Mother Family Medical History: Congestive Heart Failure (CHF) Additional Family Medical History / Comment(s): AT AGE 68 Brother(s) Family Medical History: Cancer Medications and Allergies Home Medications Medication Instructions Recorded Confirmed Type Cholecalciferol [Vitamin D3 (25 1,000 unit PO DAILY 01/04/16 02/04/20 History Mcg = 1000 Iu)] Ferrous Sulfate [Iron (65 MG 650 mg PO DAILY 01/04/16 02/04/20 History Elemental)] Multivitamins, Thera [Multivitamin 1 tab PO DAILY 01/09/17 02/04/20 History (formulary)] Aspirin 81 mg PO DAILY 11/29/18 02/04/20 History Atorvastatin [Lipitor] 40 mg PO HS tab 12/13/18 02/04/20 Rx Clopidogrel Bisulfate [Plavix] 75 mg PO DAILY 05/24/19 02/04/20 History Escitalopram [Lexapro] 10 mg PO DAILY 05/24/19 02/04/20 History Glucagon Emergency Kit 1 mg IM ONCE PRN 06/07/19 02/04/20 History Lactobacillus Acidophilus 1 tab PO DAILY 06/07/19 02/04/20 History [Acidophilus] Acetaminophen Tab [Tylenol] 1,000 mg PO Q6HR PRN 01/03/20 02/04/20 History Albuterol Sulfate [Ventolin HFA] 1 - 2 puff INHALATION RT-Q4H PRN 01/03/20 02/04/20 History Gabapentin [Neurontin] 600 mg PO TID 01/03/20 02/04/20 History Insulin Detemir [Levemir Flextouch] 12 units SQ HS 01/03/20 02/04/20 History Magnesium Oxide [Mag-Ox] 400 mg PO BID 01/03/20 02/04/20 History Metoprolol Succinate (ER) [Toprol 25 mg PO DAILY 01/03/20 02/04/20 History XL] Omeprazole 20 mg PO DAILY 01/03/20 02/04/20 History Vitamin C Gummies 2 cap PO DAILY 01/03/20 02/04/20 History traMADol HCl [Ultram] 50 mg PO Q6H PRN #12 tab 01/10/20 02/04/20 Rx Insulin Lispro [humaLOG Kwikpen] See Protocol SQ ACHS 02/04/20 02/04/20 History Allergies Allergy/AdvReac Type Severity Reaction Status Date / Time No Known Allergies Allergy Verified 02/04/20 16:23 Physical Examination - Vital Signs Vital Signs: Vital Signs Temp Pulse Pulse Resp BP BP Pulse Ox 02/10/20 07:55 92 02/10/20 07:35 92 02/10/20 07:00 90 30 H 98 02/10/20 06:45 93 30 H 98 02/10/20 06:30 92 30 H 98 02/10/20 06:15 91 30 H 98 02/10/20 06:00 93 30 H 97 02/10/20 05:45 91 30 H 97 02/10/20 05:30 92 30 H 97 02/10/20 05:15 92 30 H 97 02/10/20 05:00 92 30 H 100 02/10/20 04:45 93 29 H 100 02/10/20 04:30 93 30 H 100 02/10/20 04:15 93 30 H 100 02/10/20 04:00 99.6 F 95 30 H 100 02/10/20 03:45 93 30 H 100 02/10/20 03:30 93 30 H 100 02/10/20 03:15 94 30 H 100 02/10/20 03:00 95 30 H 100 02/10/20 02:45 91 30 H 100 02/10/20 02:30 92 30 H 100 02/10/20 02:15 90 30 H 100 02/10/20 02:00 92 30 H 156/131 99 02/10/20 01:45 93 30 H 156/131 100 02/10/20 01:35 92 02/10/20 01:30 95 30 H 156/131 100 02/10/20 01:15 96 30 H 156/131 100 11/16/20 01:00 91 30 H 100 11/16/20 00:45 92 30 H 100 11/16/20 00:30 96 30 H 100 11/16/20 00:15 96 30 H 100 11/16/20 00:06 96 30 H 100 11/16/20 00:00 98.8 F 93 30 H 100 11/15/20 23:45 93 30 H 100 11/15/20 23:30 94 29 H 100 11/15/20 23:15 95 30 H 100 11/15/20 23:00 98 30 H 100 11/15/20 22:45 95 30 H 100 11/15/20 22:30 97 30 H 100 11/15/20 22:15 96 30 H 100 11/15/20 22:00 95 30 H 100 11/15/20 21:45 99 30 H 100 11/15/20 21:30 96 30 H 100 11/15/20 21:15 97 30 H 100 11/15/20 21:00 102 H 30 H 100 11/15/20 20:45 102 H 30 H 100 11/15/20 20:30 97 30 H 100 11/15/20 20:15 101 H 30 H 100 11/15/20 20:00 98.8 F 98 30 H 100 11/15/20 19:45 96 30 H 100 11/15/20 19:30 99 30 H 100 11/15/20 19:15 98 30 H 100 11/15/20 19:00 96 30 H 100 11/15/20 18:45 97 30 H 98 11/15/20 18:30 97 30 H 99 11/15/20 18:15 96 30 H 99 11/15/20 18:00 95 30 H 99 11/15/20 17:50 96 30 H 99 11/15/20 17:40 96 30 H 99 11/15/20 17:30 96 30 H 99 11/15/20 17:20 95 30 H 98 11/15/20 17:10 97 30 H 98 11/15/20 17:00 96 30 H 98 11/15/20 16:50 97 30 H 97 11/15/20 16:40 98 30 H 96 11/15/20 16:30 95 30 H 96 11/15/20 16:20 94 30 H 95 11/15/20 16:10 94 30 H 95 11/15/20 16:00 98.2 F 93 30 H 94 L 02/09/20 15:50 96 30 H 92 L 02/09/20 15:40 96 30 H 99 02/09/20 15:33 95 02/09/20 15:30 93 30 H 99 02/09/20 15:20 98 30 H 100 02/09/20 15:10 101 H 30 H 100 02/09/20 15:00 98 30 H 156/131 100 02/09/20 14:50 101 H 30 H 115/71 97 02/09/20 14:40 138 H 30 H 129/69 100 02/09/20 14:30 130 H 30 H 119/73 92 L 02/09/20 14:20 135 H 24 160/98 96 02/09/20 14:10 126 H 124/74 100 02/09/20 14:00 130 H 159/98 96 02/09/20 13:50 126 H 105/66 02/09/20 13:40 134 H 154/97 80 L 02/09/20 13:30 76 76 L 02/09/20 13:20 67 80 L 02/09/20 13:10 122/80 68 L 02/09/20 13:00 42 L 91/53 02/09/20 12:53 61 02/09/20 12:20 97.6 F 87 106/54 77 L 02/09/20 09:45 98 Intake and Output 02/09/20 02/10/20 02/10/20 22:59 06:59 14:59 Intake Total 2426.121 689.712 43.758 Output Total 0 0 0 Balance 2426.121 689.712 43.758 Intake: Intake, IV Titration 2426.121 689.712 43.758 Amount Amiodarone 300 mg In 240.833 Dextrose 5% in Water 250 ml @ 0.5 MG/MIN 25 mls/hr IV .Q10H [facility] Rx#: [id number] Cefepime 2 gm In Sodium 100 Chloride 0.9% 100 ml @ 25 mls/hr IVPB Q12HR [facility] Rx #:[id number] Norepinephrine 32 mg In 61.121 188.879 23.758 Sodium Chloride 0.9% 218 ml @ 0.05 MCG/KG/MIN 2. 072 mls/hr IV .Q24H [facility] Rx#:[id number] Sodium Chloride 0.9% 1, 2140 160 20 000 ml @ 20 mls/hr IV . Q24H [facility] Rx#:[id number] Vancomycin 1,250 mg In 125 Sodium Chloride 0.9% 250 ml @ 125 mls/hr IVPB Q24H [facility] Rx#:[id number] propofoL 1,000 mg In 100.0 Empty Bag 1 bag @ Titrate IV .Q0M [facility] Rx#: [id number] Output: Urine 0 0 0 Other: Voiding Method Indwelling Catheter Indwelling Catheter Weight 95.1 kg ABP, PAP, CO, CI - Last 8 Hours Arterial Blood Pressure 108/42 Arterial Blood Pressure 123/45 Arterial Blood Pressure 122/47 Arterial Blood Pressure 126/47 Arterial Blood Pressure 126/54 Arterial Blood Pressure 118/52 Arterial Blood Pressure 123/52 Arterial Blood Pressure 120/55 Arterial Blood Pressure 121/54 Arterial Blood Pressure 119/53 Arterial Blood Pressure 132/57 Arterial Blood Pressure 134/58 Arterial Blood Pressure 125/59 Arterial Blood Pressure 127/58 Arterial Blood Pressure 141/60 Arterial Blood Pressure 143/60 Arterial Blood Pressure 145/62 Arterial Blood Pressure 145/62 Arterial Blood Pressure 151/64 Arterial Blood Pressure 106/54 Arterial Blood Pressure 132/56 Arterial Blood Pressure 133/60 Patient is an elderly male, who is intubated, on a mechanical ventilator. Patient is on propofol 40 g. Per nursing report, when the sedation is decreased, he slightly opened his eyes with deep sternal rub, but there was no tracking or eye contact, only had a blank stare. Patient's pupils are small, about 3 mm, minimally reacting bilaterally. Oculocephalics are absent. Corneals are mildly present. Patient does breathe over the ventilator about 17 on a set rate of 12. Patient's tone is equal bilaterally. Patient has significant evidence of cellulitis bilateral lower extremities. Peripheral edema present. Reflexes are diminished and plantars are flat. Tone is equal bilaterally. No obvious seizure activity noted. Rest of the examination could not be performed because of mental status. Results - Laboratory Findings CBC and BMP: 02/10/20 04:40 02/10/20 04:40 Abnormal Lab Findings: Abnormal Labs 02/04/20 02/04/20 02/05/20 15:52 15:52 16:30 WBC RBC 3.38 L Hgb 10.1 L Hct 32.8 L MCV MCHC 30.9 L RDW 16.8 H Neutrophils # Lymphocytes # 0.7 L Eosinophils # 0.9 H D-Dimer ABG pH ABG pCO2 ABG pO2 ABG HCO3 ABG Total CO2 ABG O2 Saturation Sodium Potassium 5.2 H Chloride Carbon Dioxide 32 H BUN 48 H Creatinine Glucose 165 H POC Glucose (mg/dL) 266 H Calcium Phosphorus Magnesium AST ALT Alkaline Phosphatase 130 H Lactate Dehydrogenase C-Reactive Protein 70.6 H Total Protein Albumin 3.3 L Procalcitonin 02/05/20 02/05/20 02/06/20 20:25 20:40 05:56 WBC RBC Hgb Hct MCV MCHC RDW Neutrophils # Lymphocytes # Eosinophils # D-Dimer ABG pH ABG pCO2 46 H ABG pO2 73 L ABG HCO3 28 H ABG Total CO2 30 H ABG O2 Saturation Sodium Potassium Chloride Carbon Dioxide BUN Creatinine Glucose POC Glucose (mg/dL) 207 H 263 H Calcium Phosphorus Magnesium AST ALT Alkaline Phosphatase Lactate Dehydrogenase C-Reactive Protein Total Protein Albumin Procalcitonin 02/06/20 02/06/20 02/06/20 07:29 07:29 07:29 WBC RBC 3.22 L Hgb 9.6 L Hct 31.8 L MCV MCHC 30.1 L RDW 16.8 H Neutrophils # 9.7 H Lymphocytes # 0.2 L Eosinophils # D-Dimer ABG pH ABG pCO2 ABG pO2 ABG HCO3 ABG Total CO2 ABG O2 Saturation Sodium 136 L Potassium 5.2 H Chloride Carbon Dioxide BUN 53 H Creatinine Glucose 194 H POC Glucose (mg/dL) Calcium Phosphorus Magnesium AST ALT Alkaline Phosphatase Lactate Dehydrogenase C-Reactive Protein Total Protein Albumin Procalcitonin 0.51 H 02/06/20 02/06/20 02/06/20 12:21 17:03 21:55 WBC RBC Hgb Hct MCV MCHC RDW Neutrophils # Lymphocytes # Eosinophils # D-Dimer ABG pH ABG pCO2 ABG pO2 ABG HCO3 ABG Total CO2 ABG O2 Saturation Sodium Potassium Chloride Carbon Dioxide BUN Creatinine Glucose POC Glucose (mg/dL) 187 H 260 H 266 H Calcium Phosphorus Magnesium AST ALT Alkaline Phosphatase Lactate Dehydrogenase C-Reactive Protein Total Protein Albumin Procalcitonin 02/07/20 02/07/20 02/07/20 06:34 11:45 11:56 WBC RBC Hgb Hct MCV MCHC RDW Neutrophils # Lymphocytes # Eosinophils # D-Dimer ABG pH ABG pCO2 ABG pO2 ABG HCO3 ABG Total CO2 ABG O2 Saturation Sodium Potassium Chloride Carbon Dioxide BUN 52 H Creatinine Glucose 219 H POC Glucose (mg/dL) 173 H 219 H Calcium Phosphorus Magnesium AST ALT Alkaline Phosphatase Lactate Dehydrogenase C-Reactive Protein Total Protein Albumin Procalcitonin 02/07/20 02/07/20 02/07/20 11:56 16:45 22:03 WBC RBC 3.34 L Hgb 10.2 L Hct 32.0 L MCV MCHC RDW 16.5 H Neutrophils # Lymphocytes # 0.2 L Eosinophils # 0.9 H D-Dimer ABG pH ABG pCO2 ABG pO2 ABG HCO3 ABG Total CO2 ABG O2 Saturation Sodium Potassium Chloride Carbon Dioxide BUN Creatinine Glucose POC Glucose (mg/dL) 266 H 146 H Calcium Phosphorus Magnesium AST ALT Alkaline Phosphatase Lactate Dehydrogenase C-Reactive Protein Total Protein Albumin Procalcitonin 02/08/20 02/08/20 02/08/20 06:28 07:54 07:54 WBC RBC 3.30 L Hgb 10.2 L Hct 32.9 L MCV MCHC 30.9 L RDW 16.3 H Neutrophils # Lymphocytes # 0.2 L Eosinophils # 0.8 H D-Dimer ABG pH ABG pCO2 ABG pO2 ABG HCO3 ABG Total CO2 ABG O2 Saturation Sodium Potassium Chloride Carbon Dioxide BUN 51 H Creatinine Glucose 182 H POC Glucose (mg/dL) 161 H Calcium Phosphorus Magnesium AST ALT Alkaline Phosphatase Lactate Dehydrogenase C-Reactive Protein Total Protein Albumin Procalcitonin 02/08/20 02/08/20 02/08/20 13:15 16:35 20:39 WBC RBC Hgb Hct MCV MCHC RDW Neutrophils # Lymphocytes # Eosinophils # D-Dimer ABG pH ABG pCO2 ABG pO2 ABG HCO3 ABG Total CO2 ABG O2 Saturation Sodium Potassium Chloride Carbon Dioxide BUN Creatinine Glucose POC Glucose (mg/dL) 251 H 236 H 218 H Calcium Phosphorus Magnesium AST ALT Alkaline Phosphatase Lactate Dehydrogenase C-Reactive Protein Total Protein Albumin Procalcitonin 02/09/20 02/09/20 02/09/20 06:37 12:06 13:48 WBC RBC Hgb Hct MCV MCHC RDW Neutrophils # Lymphocytes # Eosinophils # D-Dimer ABG pH ABG pCO2 ABG pO2 ABG HCO3 ABG Total CO2 ABG O2 Saturation Sodium Potassium Chloride Carbon Dioxide BUN Creatinine Glucose POC Glucose (mg/dL) 130 H 235 H 251 H Calcium Phosphorus Magnesium AST ALT Alkaline Phosphatase Lactate Dehydrogenase C-Reactive Protein Total Protein Albumin Procalcitonin 02/09/20 02/09/20 02/09/20 14:00 14:00 14:17 WBC 15.7 H RBC 3.27 L Hgb 10.0 L Hct 33.8 L MCV 103.1 H MCHC 29.6 L RDW 16.2 H Neutrophils # Lymphocytes # Eosinophils # D-Dimer ABG pH 7.16 L* ABG pCO2 71 H* ABG pO2 ABG HCO3 ABG Total CO2 27 H ABG O2 Saturation 97.4 H Sodium Potassium Chloride 108 H Carbon Dioxide BUN 52 H Creatinine 1.60 H Glucose 186 H POC Glucose (mg/dL) Calcium 8.1 L Phosphorus 9.7 H* Magnesium 2.4 H AST 185 H ALT 91 H Alkaline Phosphatase Lactate Dehydrogenase C-Reactive Protein Total Protein 5.3 L Albumin 2.4 L Procalcitonin 02/09/20 02/09/20 02/09/20 15:45 17:46 23:34 WBC RBC Hgb Hct MCV MCHC RDW Neutrophils # Lymphocytes # Eosinophils # D-Dimer ABG pH 7.31 L ABG pCO2 51 H ABG pO2 79 L ABG HCO3 26 H ABG Total CO2 27 H ABG O2 Saturation Sodium Potassium Chloride Carbon Dioxide BUN Creatinine Glucose POC Glucose (mg/dL) 224 H 284 H Calcium Phosphorus Magnesium AST ALT Alkaline Phosphatase Lactate Dehydrogenase C-Reactive Protein Total Protein Albumin Procalcitonin 02/10/20 02/10/20 02/10/20 04:40 04:40 04:40 WBC 14.9 H RBC 3.28 L Hgb 9.6 L Hct 31.3 L MCV MCHC 30.5 L RDW 17.1 H Neutrophils # 13.0 H Lymphocytes # 0.8 L Eosinophils # D-Dimer 8.76 H ABG pH ABG pCO2 ABG pO2 ABG HCO3 ABG Total CO2 ABG O2 Saturation Sodium Potassium Chloride 108 H Carbon Dioxide BUN 67 H Creatinine 2.50 H Glucose 213 H POC Glucose (mg/dL) Calcium 8.1 L Phosphorus Magnesium AST 218 H ALT 131 H Alkaline Phosphatase Lactate Dehydrogenase 1295 H C-Reactive Protein 83.1 H Total Protein 5.2 L Albumin 2.3 L Procalcitonin 02/10/20 02/10/20 02/10/20 04:55 05:58 09:25 WBC RBC Hgb Hct MCV MCHC RDW Neutrophils # Lymphocytes # Eosinophils # D-Dimer ABG pH 7.49 H ABG pCO2 ABG pO2 157 H ABG HCO3 28 H ABG Total CO2 30 H ABG O2 Saturation 100.0 H Sodium Potassium Chloride Carbon Dioxide BUN Creatinine Glucose POC Glucose (mg/dL) 249 H 175 H Calcium Phosphorus Magnesium AST ALT Alkaline Phosphatase Lactate Dehydrogenase C-Reactive Protein Total Protein Albumin Procalcitonin Assessment and Plan Assessment: * Status post Cardiac arrest with prolonged downtime of about 25-30 minutes. * Probable anoxic encephalopathy. * Bilateral cellulitis * Ventilator-dependent respiratory failure due to above. * CAD * COPD diabetes * Hyperlipidemia hypertension * Anemia Plan: * Per nurse report, patient's family is considering comfort care with terminal weaning. If the family wishes to continue treatment, then would recommend EEG, which can be done in the morning. At present there is no obvious seizure activity. * We will follow with serial neurological examination. * Prognosis does not appear good, based upon the duration of cardiac arrest, c urrent neurological examination and other comorbidities.
[2020-02-10 13:17] VITALS: BMI 33.8
--- NOTE | 2020-02-10 14:15 | P.NPCON ---
History of Present Illness - Reason for Consult acute renal failure, chronic renal failure - History of Present Illness Reason for consultation: Acute kidney injury on chronic kidney disease History of present illness: Patient is a 74-year-old male seen in consultation for acute kidney injury on chronic kidney disease. Patient has chronic kidney disease stage III with baseline creatinine in the range of 1-1.3 secondary to nephrosclerosis. Patient presented to the hospital on February 03 with lower extremity cellulitis. Per the records it was treated as an outpatient but his symptoms of cellulitis were returning and he came back to the hospital.he has been seen by infectious disease as well as vascular surgery and is maintained on antibiotics. Patient was noted to be bradycardic yesterday and subsequently had a cardiopulmonary arrest. Per the records asystole was noted on the monitor. He did develop V. fib as well. Duration of the code was 25 minutes. Patient did receive fluid boluses and is currently maintained on amiodarone drip. He is also requiring Levophed. Creatinine is up to 2.5 today. Urine output is 0-10 mL an hour. He is currently intubated and sedated. He is on 50% FiO2. Vital signs: Temperature 99.6F. Pulse 90. Respirations 30 per minute. Requiring Levophed support. General: The patient appeared well nourished and normally developed. HEENT: Intubated. LUNGS: Breath sounds decreased. HEART: Irregular rate and rhythm. ABDOMEN: Soft, obese. EXTREMITITES: 1+ edema. Chronic changes noted. Past Medical History Past Medical History: Atrial Fibrillation, Coronary Artery Disease (CAD), Heart Failure, COPD, Diabetes Mellitus, Eye Disorder, Hyperlipidemia, Hypertension, Osteoarthritis (OA), Pneumonia, Renal Disease, Sleep Apnea/CPAP/BIPAP, Vascular Disorder Additional Past Medical History / Comment(s): Chronic anemia/procrit, hx CKD stage III, pulmonary HTN, home oxygen continuous at 2L NC, decreased vision bilaterally since CABG surgery, neuropathy bilateral legs/feet, chronic bilatera l leg/foot pain, severe PVD, past bilateral lower leg/foot wounds and cellulitis, current bilateral lower leg wounds, sepsis d/t leg wounds 2018, mild gastritis, diverticular disease. no cpap used History of Any Multi-Drug Resistant Organisms: None Reported Past Surgical History: Adenoidectomy, Cardiac Valve Replacement, Heart Catheterization, Heart Catheterization With Stent, Tonsillectomy Additional Past Surgical History / Comment(s): 04/22/19 L leg angiogram, FAUSTINO, mitral valve repair 10/31/18, EGD, colonoscopies. one cardiac stent, Vascular surgery May 28 left leg Past Anesthesia/Blood Transfusion Reactions: No Reported Reaction Additional Past Anesthesia/Blood Transfusion Reaction / Comment(s): DIFF IV STARTS Date of Last Stent Placement:: fall 2018 Past Psychological History: No Psychological Hx Reported Smoking Status: Former smoker Past Alcohol Use History: Occasional Past Drug Use History: None Reported - Past Family History Father Family Medical History: Cancer Additional Family Medical History / Comment(s): stomach Mother Family Medical History: Congestive Heart Failure (CHF) Additional Family Medical History / Comment(s): AT AGE 68 Brother(s) Family Medical History: Cancer Medications and Allergies Home Medications Medication Instructions Recorded Confirmed Type Cholecalciferol [Vitamin D3 (25 1,000 unit PO DAILY 01/04/16 02/04/20 History Mcg = 1000 Iu)] Ferrous Sulfate [Iron (65 MG 650 mg PO DAILY 01/04/16 02/04/20 History Elemental)] Multivitamins, Thera [Multivitamin 1 tab PO DAILY 01/09/17 02/04/20 History (formulary)] Aspirin 81 mg PO DAILY 11/29/18 02/04/20 History Atorvastatin [Lipitor] 40 mg PO HS tab 12/13/18 02/04/20 Rx Clopidogrel Bisulfate [Plavix] 75 mg PO DAILY 05/24/19 02/04/20 History Escitalopram [Lexapro] 10 mg PO DAILY 05/24/19 02/04/20 History Glucagon Emergency Kit 1 mg IM ONCE PRN 06/07/19 02/04/20 History Lactobacillus Acidophilus 1 tab PO DAILY 06/07/19 02/04/20 History [Acidophilus] Acetaminophen Tab [Tylenol] 1,000 mg PO Q6HR PRN 01/03/20 02/04/20 History Albuterol Sulfate [Ventolin HFA] 1 - 2 puff INHALATION RT-Q4H PRN 01/03/20 02/04/20 History Gabapentin [Neurontin] 600 mg PO TID 01/03/20 02/04/20 History Insulin Detemir [Levemir Flextouch] 12 units SQ HS 01/03/20 02/04/20 History Magnesium Oxide [Mag-Ox] 400 mg PO BID 01/03/20 02/04/20 History Metoprolol Succinate (ER) [Toprol 25 mg PO DAILY 01/03/20 02/04/20 History XL] Omeprazole 20 mg PO DAILY 01/03/20 02/04/20 History Vitamin C Gummies 2 cap PO DAILY 01/03/20 02/04/20 History traMADol HCl [Ultram] 50 mg PO Q6H PRN #12 tab 01/10/20 02/04/20 Rx Insulin Lispro [humaLOG Kwikpen] See Protocol SQ ACHS 02/04/20 02/04/20 History Allergies Allergy/AdvReac Type Severity Reaction Status Date / Time No Known Allergies Allergy Verified 02/04/20 16:23 Physical Exam Vitals: Vital Signs Temp Pulse Resp BP Pulse Ox 02/10/20 11:29 91 02/10/20 11:17 90 02/10/20 07:55 92 02/10/20 07:35 92 02/10/20 07:00 90 30 H 98 02/10/20 06:45 93 30 H 98 02/10/20 06:30 92 30 H 98 02/10/20 06:15 91 30 H 98 02/10/20 06:00 93 30 H 97 02/10/20 05:45 91 30 H 97 02/10/20 05:30 92 30 H 97 02/10/20 05:15 92 30 H 97 02/10/20 05:00 92 30 H 100 02/10/20 04:45 93 29 H 100 02/10/20 04:30 93 30 H 100 02/10/20 04:15 93 30 H 100 02/10/20 04:00 99.6 F 95 30 H 100 02/10/20 03:45 93 30 H 100 02/10/20 03:30 93 30 H 100 02/10/20 03:15 94 30 H 100 02/10/20 03:00 95 30 H 100 02/10/20 02:45 91 30 H 100 02/10/20 02:30 92 30 H 100 02/10/20 02:15 90 30 H 100 02/10/20 02:00 92 30 H 156/131 99 02/10/20 01:45 93 30 H 156/131 100 11/16/20 01:35 92 11/16/20 01:30 95 30 H 156/131 100 11/16/20 01:15 96 30 H 156/131 100 11/16/20 01:00 91 30 H 100 11/16/20 00:45 92 30 H 100 11/16/20 00:30 96 30 H 100 11/16/20 00:15 96 30 H 100 11/16/20 00:06 96 30 H 100 11/16/20 00:00 98.8 F 93 30 H 100 11/15/20 23:45 93 30 H 100 11/15/20 23:30 94 29 H 100 11/15/20 23:15 95 30 H 100 11/15/20 23:00 98 30 H 100 11/15/20 22:45 95 30 H 100 11/15/20 22:30 97 30 H 100 11/15/20 22:15 96 30 H 100 11/15/20 22:00 95 30 H 100 11/15/20 21:45 99 30 H 100 11/15/20 21:30 96 30 H 100 11/15/20 21:15 97 30 H 100 11/15/20 21:00 102 H 30 H 100 11/15/20 20:45 102 H 30 H 100 11/15/20 20:30 97 30 H 100 11/15/20 20:15 101 H 30 H 100 11/15/20 20:00 98.8 F 98 30 H 100 11/15/20 19:45 96 30 H 100 11/15/20 19:30 99 30 H 100 11/15/20 19:15 98 30 H 100 11/15/20 19:00 96 30 H 100 11/15/20 18:45 97 30 H 98 11/15/20 18:30 97 30 H 99 11/15/20 18:15 96 30 H 99 11/15/20 18:00 95 30 H 99 11/15/20 17:50 96 30 H 99 11/15/20 17:40 96 30 H 99 11/15/20 17:30 96 30 H 99 11/15/20 17:20 95 30 H 98 11/15/20 17:10 97 30 H 98 11/15/20 17:00 96 30 H 98 11/15/20 16:50 97 30 H 97 11/15/20 16:40 98 30 H 96 11/15/20 16:30 95 30 H 96 02/09/20 16:20 94 30 H 95 02/09/20 16:10 94 30 H 95 02/09/20 16:00 98.2 F 93 30 H 94 L 02/09/20 15:50 96 30 H 92 L 02/09/20 15:40 96 30 H 99 02/09/20 15:33 95 02/09/20 15:30 93 30 H 99 02/09/20 15:20 98 30 H 100 02/09/20 15:10 101 H 30 H 100 02/09/20 15:00 98 30 H 156/131 100 02/09/20 14:50 101 H 30 H 115/71 97 02/09/20 14:40 138 H 30 H 129/69 100 02/09/20 14:30 130 H 30 H 119/73 92 L 02/09/20 14:20 135 H 24 160/98 96 02/09/20 14:10 126 H 124/74 100 02/09/20 14:00 130 H 159/98 96 Intake and Output 02/09/20 02/10/20 02/10/20 22:59 06:59 14:59 Intake Total 2426.121 147.120 3863.045 Output Total 0 0 15 Balance 2426.121 557.953 8702.045 Intake: IV 1175 Cefepime 2 gm In Sodium 100 Chloride 0.9% 100 ml @ 25 mls/hr IVPB Q12HR [facility] Rx #:[id number] Sodium Chloride 0.9% 1, 75 000 ml @ 75 mls/hr IV . [id number] [facility] Rx#:[id number] Sodium Chloride 0.9% 1, 1000 000 ml @ 999 mls/hr IV . Q1H1M [facility] Rx#:[id number] Intake, IV Titration 2426.121 689.712 137.045 Amount Amiodarone 300 mg In 240.833 Dextrose 5% in Water 250 ml @ 0.5 MG/MIN 25 mls/hr IV .Q10H [facility] Rx#: [id number] Cefepime 2 gm In Sodium 100 Chloride 0.9% 100 ml @ 25 mls/hr IVPB Q12HR [facility] Rx #:[id number] Norepinephrine 32 mg In 61.121 188.879 23.758 Sodium Chloride 0.9% 218 ml @ 0.05 MCG/KG/MIN 2. 072 mls/hr IV .Q24H [facility] Rx#:[id number] Sodium Chloride 0.9% 1, 2140 160 20 000 ml @ 20 mls/hr IV . Q24H [facility] Rx#:[id number] Vancomycin 1,250 mg In 125 Sodium Chloride 0.9% 250 ml @ 125 mls/hr IVPB Q24H [facility] Rx#:[id number] propofoL 1,000 mg In 100.0 93.287 Empty Bag 1 bag @ Titrate IV .Q0M [facility] Rx#: [id number] Oral 100 Output: Urine 0 0 15 Other: Voiding Method Indwelling Catheter Indwelling Catheter Weight 95.1 kg 95.1 kg ABP, PAP, CO, CI - Last 8 Hours Arterial Blood Pressure 108/42 Arterial Blood Pressure 123/45 Arterial Blood Pressure 122/47 Arterial Blood Pressure 126/47 Arterial Blood Pressure 126/54 Results - Lab Results Most recent lab results ABG pH 7.49 (7.35-7.45) H 02/10/20 04:55 ABG pCO2 37 mmHg (35-45) 02/10/20 04:55 ABG pO2 157 mmHg (83-108) H 02/10/20 04:55 ABG HCO3 28 mmol/L (21-25) H 02/10/20 04:55 ABG O2 Saturation 100.0 % (94-97) H 02/10/20 04:55 Calcium 8.1 mg/dL (8.4-10.2) L 02/10/20 04:40 Phosphorus 9.7 mg/dL (2.5-4.5) H* 02/09/20 14:00 Magnesium 2.4 mg/dL (1.6-2.3) H 02/09/20 14:00 02/10/20 04:40 02/10/20 04:40 Assessment and Plan Plan: Assessment: 1. Acute kidney injury secondary to ATN secondary to cardio pulmonary arrest. Creatinine 2.5 today. Oliguric. 2. Chronic kidney disease stage III with baseline creatinine 1-1.3 secondary to nephrosclerosis. 3. Status post cardiopulmonary arrest to 25 minute downtime on February 08. Currently on amiodarone drip. 4. Lower extremity cellulitis maintained on antibiotics. 5. Shock maintained on Levophed. 6. Hyperphosphatemia secondary to acute kidney injury. Plan: Currently on IV fluids. Lasix was discontinued. Repeat labs this evening. Continue to monitor renal function and urine output closely. Wean vasopressors and FiO2. Overall prognosis guarded. Continue to assess daily for need for renal replacement therapy. Comfort measures being considered. Overall prognosis guarded. Monitor vancomycin levels. Dose to be adjusted for renal function. Thank you for the consultation. I will continue to follow the patient with you during his hospital stay.
--- NOTE | 2020-02-10 15:31 | P.PN ---
Subjective Progress Note Date: 02/10/20 74-year-old male patient, known history of CAD, CHF,valvular heart disease with previous history of mitral valve repair, peripheral vascular disease and previous atherectomy of the left lower extremity popliteal artery with balloon angioplasty and stenting COPD, diabetes mellitus, hypertension and hyperl ipidemia and obstructive sleep apnea in addition to coronary artery disease and chronic atrial fibrillation. The patient was in the emergency department on 02/04/2024 sepsis and cellulitis of the lower extremities. The patient states he's noticed increase in redness and swelling, he's also had worsening shortness of breath, he denies any chest discomfort, no cough, also experienced a recent fall at home. His EKG on presentation here showed normal sinus rhythm with a first-degree AV block, PACs, nonspecific ST-T wave changes. Chest x-ray showed low lung volumes and cardiomegaly with suggestion of mild to moderate bilateral alveolar or stiff show edema and or infiltrates. Blood pressure 142/60, heart rate in the 80s. Afebrile. BNP level 15,200. Influenza A and B-. The patient was also in CHF and fluid overload Patient was initiated on IV Lasix, he is also currently on IV antibiotics. The patient was in acute hypoxic respiratory failure requiring high flow oxygen at 50 L with an FiO2 of 65%. The patient currently is in the intensive care unit. Still on high flow oxygen. Blood cultures are negative negative for any growth. Yesterday afternoon, the patient became progressively more hypoxic and an A-team was called and the JTAC had intubated the patient. He became bradycardic during this process and received 0.5 of atropine 2. Patient then was noted have continued bradycardia. Later on patient developed asystole on the monitor. Chest compression started epi given followed by bicarb. IV infiltrated and not functioning properly. He developed V fib without pulse and underwent defib. ROSC X 1. He lost pulses again and CPR resume. Duration of code 25 minutes with 2 epsiodes of loss of pulse. Patient recieved multiple doses of epi and bicarb. He was also given a bolus of amio for V fib on the monitor. For further details please see code blue record. He was hypotensive after ROSC and was started on levophed. A right groin TLC during the code. Patient transferred to the ICU. Upon arrival to the ICU he was initially normotensive but was hypoxic. His vent settings were adjust. He again became hypotensive and levo was increased and he received one additional amp of bicarb. On today's evaluation of 02/10/2020, the patient is unresponsive, currently operable for at 40 g per KG per minute. The patient's is on mechanical ventilator on assist control mode at the rate of 30 with a tidal volume of 400 and FiO2 of 60% with a PEEP of 8. PH is at 7.4 with a pCO2 of 37 and pO2 157. The patient is on normal saline at the rate of 10 mL an hour. His cardiac rh ythm is sinus and the patient is on amiodarone drip at 0.5 mg/m. The patient is also on norepinephrine infusion for blood pressure support which is running at 19 g per minute. Antibiotic coverage includes a combination of cefepime and vancomycin. The chest x-ray showing persistent infiltrates with a small right- sided pleural effusion. No evidence of any pneumothorax. We have consulted neurology to assess the patient's mental status post cardiac arrest. Objective - Vital Signs Vital signs: Vital Signs Temp 99.6 F 02/10/20 04:00 Pulse 96 02/10/20 15:15 Resp 30 H 02/10/20 07:00 BP 156/131 02/10/20 02:00 Pulse Ox 98 02/10/20 07:00 Intake & Output 02/09/20 02/10/20 02/10/20 18:59 06:59 18:59 Intake Total 2268.221 920.350 8968.045 Output Total 0 0 15 Balance 2268.221 047.489 7462.045 Weight 95.1 kg 95.1 kg Intake: IV 1175 Cefepime 2 gm In Sodium 100 Chloride 0.9% 100 ml @ 25 mls/hr IVPB Q12HR [facility] Rx #:[id number] Sodium Chloride 0.9% 1, 75 000 ml @ 75 mls/hr IV . [id number] [facility] Rx#:[id number] Sodium Chloride 0.9% 1, 1000 000 ml @ 999 mls/hr IV . Q1H1M [facility] Rx#:[id number] Intake, IV Titration 2268.221 847.612 137.045 Amount Amiodarone 300 mg In 240.833 Dextrose 5% in Water 250 ml @ 0.5 MG/MIN 25 mls/hr IV .Q10H [facility] Rx#: [id number] Cefepime 2 gm In Sodium 100 Chloride 0.9% 100 ml @ 25 mls/hr IVPB Q12HR [facility] Rx #:[id number] Norepinephrine 32 mg In 61.121 188.879 23.758 Sodium Chloride 0.9% 218 ml @ 0.05 MCG/KG/MIN 2. 072 mls/hr IV .Q24H [facility] Rx#:[id number] Sodium Chloride 0.9% 1, 2060 240 20 000 ml @ 20 mls/hr IV . Q24H [facility] Rx#:[id number] Vancomycin 1,250 mg In 125 Sodium Chloride 0.9% 250 ml @ 125 mls/hr IVPB Q24H [facility] Rx#:[id number] propofoL 1,000 mg In 22.1 77.9 93.287 Empty Bag 1 bag @ Titrate IV .Q0M [facility] Rx#: [id number] Oral 100 Output: Urine 0 0 15 Other: Voiding Method Indwelling Catheter Indwelling Catheter ABP, PAP, CO, CI - Last Documented Arterial Blood Pressure 108/42 - Exam GENERAL EXAM: Alert, pleasant 74-year-old gentleman, currently intubated on a mechanical ventilator. Orogastric and orotracheal tube are both in place. The patient is well sedated this point in time. The patient has a right femoral triple-lumen catheter in place. HEAD: Normocephalic. EYES: Normal reaction of pupils, equal size. NOSE: Clear with pink turbinates. THROAT: No erythema or exudates. NECK: No masses, no JVD. CHEST: No chest wall deformity. LUNGS: Equal air entry with bilateral scattered rhonchi, crackles. CVS: S1 and S2 normal with no audible murmur, regular rhythm. ABDOMEN: No hepatosplenomegaly, normal bowel sounds, no guarding or rigidity. SPINE: No scoliosis or deformity SKIN: No rashes CENTRAL NERVOUS SYSTEM: No focal deficits, tone is normal in all 4 extremities. EXTREMITIES: There is no peripheral edema. No clubbing, no cyanosis. Peripheral pulses are intact. - Labs CBC & Chem 7: 02/10/20 04:40 02/10/20 04:40 Labs: Abnormal Lab Results - Last 24 Hours (Table) 02/09/20 02/09/20 02/09/20 Range/Units 15:45 17:46 23:34 WBC (3.8-10.6) k/uL RBC (4.30-5.90) m/uL Hgb (13.0-17.5) gm/dL Hct (39.0-53.0) % MCHC (31.0-37.0) g/dL RDW (11.5-15.5) % Neutrophils # (1.3-7.7) k/uL Lymphocytes # (1.0-4.8) k/uL D-Dimer (<0.60) mg/L FEU ABG pH 7.31 L (7.35-7.45) ABG pCO2 51 H (35-45) mmHg ABG pO2 79 L (83-108) mmHg ABG HCO3 26 H (21-25) mmol/L ABG Total CO2 27 H (19-24) mmol/L ABG O2 Saturation (94-97) % Chloride (98-107) mmol/L BUN (9-20) mg/dL Creatinine (0.66-1.25) mg/dL Glucose (74-99) mg/dL POC Glucose (mg/dL) 224 H 284 H (75-99) mg/dL Calcium (8.4-10.2) mg/dL Ferritin (22.0-322.0) ng/mL AST (17-59) U/L ALT (4-49) U/L Lactate Dehydrogenase (313-618) U/L C-Reactive Protein (<10.0) mg/L Total Protein (6.3-8.2) g/dL Albumin (3.5-5.0) g/dL 02/10/20 02/10/20 02/10/20 Range/Units 04:40 04:40 04:40 WBC 14.9 H (3.8-10.6) k/uL RBC 3.28 L (4.30-5.90) m/uL Hgb 9.6 L (13.0-17.5) gm/dL Hct 31.3 L (39.0-53.0) % MCHC 30.5 L (31.0-37.0) g/dL RDW 17.1 H (11.5-15.5) % Neutrophils # 13.0 H (1.3-7.7) k/uL Lymphocytes # 0.8 L (1.0-4.8) k/uL D-Dimer 8.76 H (<0.60) mg/L FEU ABG pH (7.35-7.45) ABG pCO2 (35-45) mmHg ABG pO2 (83-108) mmHg ABG HCO3 (21-25) mmol/L ABG Total CO2 (19-24) mmol/L ABG O2 Saturation (94-97) % Chloride 108 H (98-107) mmol/L BUN 67 H (9-20) mg/dL Creatinine 2.50 H (0.66-1.25) mg/dL Glucose 213 H (74-99) mg/dL POC Glucose (mg/dL) (75-99) mg/dL Calcium 8.1 L (8.4-10.2) mg/dL Ferritin 658.7 H (22.0-322.0) ng/mL AST 218 H (17-59) U/L ALT 131 H (4-49) U/L Lactate Dehydrogenase 1295 H (313-618) U/L C-Reactive Protein 83.1 H (<10.0) mg/L Total Protein 5.2 L (6.3-8.2) g/dL Albumin 2.3 L (3.5-5.0) g/dL 02/10/20 02/10/20 02/10/20 Range/Units 04:55 05:58 09:25 WBC (3.8-10.6) k/uL RBC (4.30-5.90) m/uL Hgb (13.0-17.5) gm/dL Hct (39.0-53.0) % MCHC (31.0-37.0) g/dL RDW (11.5-15.5) % Neutrophils # (1.3-7.7) k/uL Lymphocytes # (1.0-4.8) k/uL D-Dimer (<0.60) mg/L FEU ABG pH 7.49 H (7.35-7.45) ABG pCO2 (35-45) mmHg ABG pO2 157 H (83-108) mmHg ABG HCO3 28 H (21-25) mmol/L ABG Total CO2 30 H (19-24) mmol/L ABG O2 Saturation 100.0 H (94-97) % Chloride (98-107) mmol/L BUN (9-20) mg/dL Creatinine (0.66-1.25) mg/dL Glucose (74-99) mg/dL POC Glucose (mg/dL) 249 H 175 H (75-99) mg/dL Calcium (8.4-10.2) mg/dL Ferritin (22.0-322.0) ng/mL AST (17-59) U/L ALT (4-49) U/L Lactate Dehydrogenase (313-618) U/L C-Reactive Protein (<10.0) mg/L Total Protein (6.3-8.2) g/dL Albumin (3.5-5.0) g/dL 02/10/20 Range/Units 12:07 WBC (3.8-10.6) k/uL RBC (4.30-5.90) m/uL Hgb (13.0-17.5) gm/dL Hct (39.0-53.0) % MCHC (31.0-37.0) g/dL RDW (11.5-15.5) % Neutrophils # (1.3-7.7) k/uL Lymphocytes # (1.0-4.8) k/uL D-Dimer (<0.60) mg/L FEU ABG pH (7.35-7.45) ABG pCO2 (35-45) mmHg ABG pO2 (83-108) mmHg ABG HCO3 (21-25) mmol/L ABG Total CO2 (19-24) mmol/L ABG O2 Saturation (94-97) % Chloride (98-107) mmol/L BUN (9-20) mg/dL Creatinine (0.66-1.25) mg/dL Glucose (74-99) mg/dL POC Glucose (mg/dL) 164 H (75-99) mg/dL Calcium (8.4-10.2) mg/dL Ferritin (22.0-322.0) ng/mL AST (17-59) U/L ALT (4-49) U/L Lactate Dehydrogenase (313-618) U/L C-Reactive Protein (<10.0) mg/L Total Protein (6.3-8.2) g/dL Albumin (3.5-5.0) g/dL Microbiology - Last 24 Hours (Table) 02/09/20 22:32 Sputum Culture - Preliminary Sputum 02/04/20 15:52 Blood Culture - Preliminary Blood No Growth after 120 hours Assessment and Plan Plan: 1 cardiac arrest- Asystole, V fib, and PEA during code, down time 31 min , received defib, epi x 6 and atropine x1 2 Acute hypoxic respiratory failure secondary to acute exacerbation of chronic diastolic congestive heart failure complicated further a cardiac arrest and the patient is currently intubated on a mechanical ventilator , currently on IV amiodarone, and the patient is currently hypotensive, likely component of cardiogenic shock and the patient is currently on pressors. Norepinephrine is being utilized for hemodynamic support. 2 Recurrent bilateral lower extremity cellulitis, the blood cultures are negative and the patient is currently on IV cefepime and vancomycin 3 coronary artery disease 4 Congestive heart failure , based on echocardiogram from 2019, the patient has a moderate concentric LVH with ejection fraction of 50-55% and RV severely enlarged. The patient has mild to moderate mitral regurgitation, moderate degree of mitral stenosis, evidence of previous mitral valve repair, moderate tricuspid regurgitation, PA pressures are estimated to be around 59 mmHg. 5 Chronic obstructive pulmonary disease (COPD) 6 Diabetes mellitus 7 Hyperlipidemia 8 Hypertension 9 Degenerative joint disease (OA) 10 MIGUEL ANGEL post cardiac arrest in the creatinine is on the rise in the patient's creatinine is up to 2.5. The patient has been a positive fluid balance of 3.1 L yesterday and 1.3 L for today. 11 Obstructive sleep apnea, maintained on CPAP 12 Anemia of chronic disease 13 Valvular heart disease and a secondary pulmonary hypertension 14 Chronic hypoxemic respiratory failure 15 Status post mitral valve replacement. 16 peripheral vascular disease and previous atherectomy of the left lower extremity popliteal artery with balloon angioplasty and stenting 16 chronic atrial fibrillation, current rhythm is sinus 17 Poor overall functional performance based on the above-mentioned multiple comorbidities. Plan Condition is extremely critical. We'll give the patient a bolus of 1 L of IV fluid Stop the Lasix Put the patient on normal saline at the rate of 75 mL an hour Drop the FiO2 to maintain a saturation above 90%. We'll also Doppler respiratory rate down to 22. Obtain echocardiogram, the endocardium to evaluate LV function Continue antibiotic coverage Nephrology and neurology will be consulted on the case We will have a discussion with the family regarding his goals of care. His condition is extremely critical. The patient's chances for recovery is extremely low and this patient. We'll continue to follow. There may be a component of anoxic encephalopathy. We'll discuss CODE STATUS. Comfort care measures is quite reasonable option for this patient if the family is agreeable. This is a critically care evaluation that was done and more than 30 minutes Time with Patient: Greater than 30
[2020-02-10 16:53] LABS: Glucose,Whole Blood 169 mg/dL (75-99)
[2020-02-10] MEDS ORDERED: SODIUM BICARB 8.4% 50 ML SYR (1 MEQ/ML) ONE (17:15)
[2020-02-10 17:33] LABS: ABG Base Excess -0.2 mmol/L; ABG HCO3 24 mmol/L (21-25); ABG Oxygen Saturation 86.2 % (94-97); ABG PCO2 39 mmHg (35-45); ABG PH 7.41 (7.35-7.45); ABG TCO2 26 mmol/L (19-24)
[2020-02-10 17:37] LABS: ABG PO2 52 mmHg (83-108); Allen Test Performed? no
[2020-02-10 18:29] VITALS: BP 69/37
--- NOTE | 2020-02-10 19:01 | PN ---
PROGRESS NOTE DATE OF SERVICE: 02/10/2020 REASON FOR FOLLOWUP: Bilateral lower extremity wounds and cellulitis and question of pneumonia. INTERVAL HISTORY: Patient is currently afebrile. The patient is requiring pressor support. The patient's FiO2 is currently 50%. has been reported or any diarrhea or any change in clinical condition. PHYSICAL EXAMINATION: Blood pressure 133/45, pulse 92, temperature is 99.7. He is 92% on 50% FIO2. General description is an elderly male intubated on the vent. Respiratory system: Unlabored breathing. Decreased breath sounds in the bases. No wheeze. HEART: S1, S2. Regular rate and rhythm. Abdomen soft, no tenderness. Legs are currently swelling and some superficial ulceration. No significant redness. LABS: Hemoglobin 9.1, white count 14.9, BUN of 27, creatinine is 2.50. DIAGNOSTIC IMPRESSION AND PLAN: Patient with acute respiratory failure, possible cardiac arrest which is multifactorial in this patient with lower extremity cellulitis and question of pneumonia. Now with worsening of his kidney function. We will discontinue the vancomycin. Keep the patient cefepime. Follow up on his culture and adjust medication further if needed. Overall prognosis remains to be guarded and possible comfort care per the nursing staff in the next 24 to 48 hours once his Covid test is back. MMODL / IJN: [id number] /
[2020-02-10 19:43] LABS: Calcium 7.9 mg/dL (8.4-10.2); Potassium 4.7 mmol/L (3.5-5.1)
[2020-02-10 20:05] VITALS: TEMP 99.1
[2020-02-10 20:15] LABS: Glucose,Whole Blood 232 mg/dL (75-99)
[2020-02-10] MEDS: ATORVASTATIN 40 MG TAB PO SCH (20:25)
[2020-02-10] MEDS ORDERED: CEFEPIME 1 GM in SODIUM CHLORIDE 0.9% 50 ML IVPB SCH (21:00)
[2020-02-10] MEDS ORDERED: MORPHINE SULFATE 2 MG/ML SYRINGE IV PRN (21:10)
[2020-02-10] MEDS ORDERED: DRY MOUTH SPRAY 44.3 SPRAY/44.3 ML SPRAY MUCOUS MEM PRN (21:10)
[2020-02-10] MEDS ORDERED: ATROPINE OPHTH SOLN 1% 5ML BTL SUBLINGUAL PRN (21:10)
[2020-02-10] MEDS ORDERED: ARTIFICIAL TEARS-HYPROMELLOSE DROPS 15 ML BTL BOTH EYES PRN (21:10)
[2020-02-10] MEDS ORDERED: SCOPOLAMINE 1.5MG/72HR PATCH TRANSDERM SCH (21:30)
[2020-02-10] MEDS ORDERED: MORPHINE SULFATE (100 MG/2 ML) 100 MG in SODIUM CHLORIDE 0.9% 100 ML IV SCH (22:00)
[2020-02-11 00:31] VITALS: PULSE 0; RESP 27
[2020-02-11] MEDS: INSULIN ASPART (NovoLOG) 100 UNIT/ML VIAL SQ SCH (00:32)
--- NOTE | 2020-02-12 02:43 | CDI ---
Documentation Clarification Form Date: 02/12/2020 From: Simon Veras Phone: If you have a question about this query, please contact [employer] at [phone] between 8am and 5pm. Admit Date: 02/04/2020 Discharge Date: 02/10/2020 Patient Name: Deep Anderson Visit Number: [id number] ATTENTION: The Clinical Documentation Specialists (CDI) and [facility] Coding Staff appreciate your assistance in clarifying documentation. Please respond to the clarification below the line at the bottom and electronically sign. The CDI & [facility] Coding staff will review the response and follow-up if needed. Please note: Queries are made part of the Legal Health Record. If you have any questions, please contact the author of this message via ITS. Dear Dr Garfield Justice MD., The patient presented with the following bilateral cellulitis and venous stasis ulcer. History/Risk Factors: COPD, Cellulitis, Hyperlipidemia Clinical Indicators: Acute hypoxic respiratory failure secondary to acute exacerbation diastolic CHF, questionable pneumonia WBC : 9.0 Vitals signs on admission: 02/05/20 12:00 84 18 130/82 90 L Treatment: Antibiotic adjusted to vancomycin, cefepime. Antibiotics:oral Keflex and Cipro, Vancomycin Per Dr.Khan lazaro progress notes "He presented to the emergency room on 02/04/2020 with suspected sepsis sepsis secondary to cellulitis". 02/05 Dr. Lalita Rincon stated "He apparently came in with cellulitis and possible sepsis". 02/09 Dr.Saeed Carol MORSE stated Bilateral lower extremity wounds and cellulitis and question of pneumonia. In your professional opinion, please clarify if these findings signify one of the following conditions, Condition Sepsis secondary to cellulitis Sepsis secondary to Pneumonia Sepsis secondary to both (Cellulitis and pneumonia) Other, please specify Unable to determine not my documentation MTDD
--- NOTE | 2020-02-19 10:01 | CDI ---
Documentation Clarification Form Date: 02/19/2020 09:36:08 AM From: Yesi Leon CCS, CCDS Admit Date: 02/04/2020 04:57:00 PM Patient Name: Deep Anderson Visit Number: [id number] Discharge Date: 02/10/2020 11:45:00 PM ATTENTION: The Clinical Documentation Specialists (CDI) and [facility] Coding Staff appreciate your assistance in clarifying documentation. Please respond to the clarification below the line at the bottom and electronically sign. The CDI & [facility] Coding staff will review the response and follow-up if needed. Please note: Queries are made part of the Legal Health Record. If you have any questions, please contact the author of this message via ITS. Dr. Lara Genao: [facility] with recurrent bilateral lower extremity cellulitis, Acute hypoxic respiratory failure and possible Acute heart failure, pneumonia documented as in the differential. Per the 02/05 Pulmonary Consult: "He apparently came in with cellulitis and possible sepsis." Per the 02/06 Attending Progress Note & subsequent Progress Notes: "He presented to the emergency room on 02/04/2020 with suspected sepsis, sepsis secondary to cellulitis." History/Risk Factors: Diastolic heart failure, CKD stage III, Chronic hypoxic respiratory failure on Home O2, Chronic Atrial Fibrillation, CAD status post CABG, Stent & AICD, COPD, DM II with neuropathy, Hypertension, Hyperlipidemia, Sleep Apnea, Obesity with BMI 33.8, Pulmonary Hypertension, Mitral & Tricuspid Regurgitation and former smoker. Clinical Indicators: 74 yo male, presented to the ED via EMS from an ECF with bilateral lower extremity cellulitis, recently admitted a month ago with bilateral lower extremity cellulitis & Sepsis, discharged on po antibiotics. Had multiple skin lesions on lower extremities & 2+ pitting edema. Also dehydrated. Patent went into cardiac arrest with prolonged CPR, intubated on 02/08, made comfort care & on 02/09. VS 02/03: T 97.8, P 79, R 18 - 22, BP 140/67, PO 97 RA - 89 4Lnc. VS 02/08: T 95.6*, P 73, R 24 (sob, cough), BP 143/72, PO 92 on BiPAP LAB 02/03: WBC (9.0), Hgb 10.1*, Hct 32.8*, Lymph 0.7*, K 5.2^, CO2 32^, BUN 48^, Gluc 165^, Alk Phos 130^, CRP 70.6^, Alb 3.3*. COVID: Negative. INFLUENZA A/B: Negative. RAD 02/03 CXR: Low lung volumes & cardiomegaly with suggestion of mild/moderate bilateral alveolar & interstitial edema and/or infiltrates. Correlate for CHF exacerbation. 02/06 CXR: Correlate clinically regarding infection or edema. 02/07 CXR: Pulmonary edema, could relate to heart failure or RDS. Treatment 02/03: O2 4Lnc, advanced to 15L nrb on 02/04. 02/07: BiPAP, 02/08: Intubated. IV Morphine, IV fluid 500 mls @ 999 mls/hr, IV Vancomycin, IV Lasix, INH Albuterol/Ipratropium Duoneb, IV Protonix, INH Ventolin, INH Spiriva, IH Symbicort, IV Diprivan, IV Norepinephrine, IV Amiodarone, IV Propofol In your professional opinion, please clarify if these findings signify one of the following conditions, whether the condition is POA, and cause, if known: Sepsis ruled out Sepsis ruled in Please clarify source of sepsis, if known: Severe Sepsis Other, please specify Unable to determine Present on Admission: Yes or No Identify the (suspected) organism Link or clarify if there is associated (due to/with): Organ failure (Last Revision: June 2017) severe sepsis sec to cellulitis, present on admission MTDD
--- NOTE | 2020-02-19 10:14 | CDI ---
Documentation Clarification Form Date: 02/19/2020 10:02:00 AM From: Yesi ShawLeonABI cosby, CCDS Admit Date: 02/04/2020 04:57:00 PM Patient Name: Deep Anderson Visit Number: [id number] Discharge Date: 02/10/2020 11:45:00 PM ATTENTION: The Clinical Documentation Specialists (CDI) and [facility] Coding Staff appreciate your assistance in clarifying documentation. Please respond to the clarification below the line at the bottom and electronically sign. The CDI & [facility] Coding staff will review the response and follow-up if needed. Please note: Queries are made part of the Legal Health Record. If you have any questions, please contact the author of this message via ITS. Dr. Lara Matias: COVID is documented in the following documents: 02/04 History & Physical: "We will check for Influenza and COVID." 02/05 Infectious Disease Progress Note: "COVID testing is pending." 02/07 - Progress Notes: COVID-19 screen still pending." Clinical Indicators: Patient presented to the ED on 02/03 from an ECF with recurrent bilateral lower extremity cellulitis, also acute hypoxic respiratory failure & acute on chronic Diastolic CHF. The patient went into cardiac arrest on 02/08 and on 02/09. 02/03: LAB: WBC (9.0), Lymph 0.7*, Lactic Acid 1.3, Alk Phos 130^, CRP 70.6^. 02/03 COVID: Not detected 02/03: INFLUENZA A/B: Not detected In order to capture the severity of condition, please clarify the COVID-19 status: False negative, treating for COVID-19 infection COVID-19 ruled out Other, please specify (Last Form Revision: May 2019) COVID-19 ruled out MTDD
--- NOTE | 2020-02-19 10:21 | CDI ---
Documentation Clarification Form Date: 02/19/2020 10:15:03 AM From: Yesi Leon CCS, CCDS Admit Date: 02/04/2020 04:57:00 PM Patient Name: Deep Anderson Visit Number: [id number] Discharge Date: 02/10/2020 11:45:00 PM ATTENTION: The Clinical Documentation Specialists (CDI) and [facility] Coding Staff appreciate your assistance in clarifying documentation. Please respond to the clarification below the line at the bottom and electronically sign. The CDI & [facility] Coding staff will review the response and follow-up if needed. Please note: Queries are made part of the Legal Health Record. If you have any questions, please contact the author of this message via ITS. Dr. Lara Matias: The patient was admitted on 02/18 from a retirement with recurrent bilateral lower extremity cellulitis, Acute hypoxic respiratory failure and possible Acute heart failure, pneumonia documented as in the differential. Per the 02/05 Pulmonary Consult: "He apparently came in with cellulitis and possible sepsis." Per the 02/06 Attending Progress Note & subsequent Progress Notes: "He presented to the emergency room on 02/04/2020 with suspected sepsis, sepsis secondary to cellulitis." History/Risk Factors: Diastolic heart failure, CKD stage III, Chronic hypoxic respiratory failure on Home O2, Chronic Atrial Fibrillation, CAD status post CABG, Stent & AICD, COPD, DM II with neuropathy, Hypertension, Hyperlipidemia, Sleep Apnea, Obesity with BMI 33.8, Pulmonary Hypertension, Mitral & Tricuspid Regurgitation and former smoker. Clinical Indicators: 74 yo male, presented to the ED via EMS from an ECF with bilateral lower extremity cellulitis, recently admitted a month ago with bilateral lower extremity cellulitis & Sepsis, discharged on po antibiotics. Had multiple skin lesions on lower extremities & 2+ pitting edema. Also dehydrated. Patent went into cardiac arrest with prolonged CPR, intubated on 02/08, made comfort care & on 02/09. VS 02/03: T 97.8, P 79, R 18 - 22, BP 140/67, PO 97 RA - 89 4Lnc. VS 02/08: T 95.6*, P 73, R 24 (sob, cough), BP 143/72, PO 92 on BiPAP LAB 02/03: WBC (9.0), Hgb 10.1*, Hct 32.8*, Lymph 0.7*, K 5.2^, CO2 32^, BUN 48^, Gluc 165^, Alk Phos 130^, CRP 70.6^, Alb 3.3*. COVID: Negative. INFLUENZA A/B: Negative. 02/03 Blood cultures: Final: Negative 02/08 Sputum Culture: Final: Carrie Albicans RAD 02/03 CXR: Low lung volumes & cardiomegaly with suggestion of mild/moderate bilateral alveolar & interstitial edema and/or infiltrates. Correlate for CHF exacerbation. 02/06 CXR: Correlate clinically regarding infection or edema. 02/07 CXR: Pulmonary edema, could relate to heart failure or RDS. Treatment 02/03: O2 4Lnc, advanced to 15L nrb on 02/04. 02/07: BiPAP, 02/08: Intubated. IV Morphine, IV fluid 500 mls @ 999 mls/hr, IV Vancomycin, IV Lasix, INH Albuterol/Ipratropium Duoneb, IV Protonix, INH Ventolin, INH Spiriva, IH Symbicort, IV Diprivan, IV Norepinephrine, IV Amiodarone, IV Propofol In order to capture the severity of condition, please clarify if the condition signifies and you are treating for: Pneumonia is ruled out Pneumonia is ruled in, please specify: o Aspiration Pneumonia o Bacterial Pneumonia, specify causal organism (if known) o Viral Pneumonia, specify casual organism (if known) o Healthcare Acquired Pneumonia/Pneumonia, unspecified o Other, please specify o Unable to determine Please specify if pneumonia was Present on Admission: Yes or No (Last Revision: June 2017) Pneumonia is ruled out MTDD
--- NOTE | 2020-02-19 10:35 | CDI ---
Documentation Clarification Form Date: 02/19/2020 10:24:00 AM From: Yesi LeonABI cosby, CCDS Admit Date: 02/04/2020 04:57:00 PM Patient Name: Deep Anderson Visit Number: [id number] Discharge Date: 02/10/2020 11:45:00 PM ATTENTION: The Clinical Documentation Specialists (CDI) and [facility] Coding Staff appreciate your assistance in clarifying documentation. Please respond to the clarification below the line at the bottom and electronically sign. The CDI & [facility] Coding staff will review the response and follow-up if needed. Please note: Queries are made part of the Legal Health Record. If you have any questions, please contact the author of this message via ITS. Dr. Lara Matias: Per the 02/05 History & Physical, the patient has Diabetes Mellitus and Diabetic Neuropathy, the patient was admitted with bilateral lower extremity cellulitis. History/Risk Factors: Bilateral lower extremity ulceration and cellulitis with Pseudomonas about 6 or 7 months ago, PVD status post revascularization surgery, CKD III, Chronic Atrial Fibrillation, CAD, CHF, COPD, Type 2 DM, Diabetic Neuropathy, Hypertension, Hyperlipidemia, Arthritis, Sleep Apnea, Pulmonary Hypertension, Mitral regurgitation, Chronic Hypoxic Respiratory Failure on 2 L oxygen via nasal cannula, Depression, Former smoker. Clinical Indicators: 74 yo male, presented to the ED via EMS from an ECF with bilateral lower extremity cellulitis, recently admitted a month ago with bilateral lower extremity cellulitis & Sepsis, discharged on po antibiotics. Had multiple skin lesions on lower extremities & 2+ pitting edema. Also dehydrated. Patent went into cardiac arrest with prolonged CPR, intubated on 02/08, made comfort care & on 02/09. VS 02/03: T 97.8, P 79, R 18 - 22, BP 140/67, PO 97 RA - 89 4Lnc. VS 02/08: T 95.6*, P 73, R 24 (sob, cough), BP 143/72, PO 92 on BiPAP LAB 02/03: WBC (9.0), Hgb 10.1*, Hct 32.8*, Lymph 0.7*, K 5.2^, CO2 32^, BUN 48^, Gluc 165^, Alk Phos 130^, CRP 70.6^, Alb 3.3*. COVID: Negative. INFLUENZA A/B: Negative. RAD 02/03 CXR: Low lung volumes & cardiomegaly with suggestion of mild/moderate bilateral alveolar & interstitial edema and/or infiltrates. Correlate for CHF exacerbation. 02/06 CXR: Correlate clinically regarding infection or edema. 02/07 CXR: Pulmonary edema, could relate to heart failure or RDS. Treatment 02/03: O2 4Lnc, advanced to 15L nrb on 02/04. 02/07: BiPAP, 02/08: Intubated. IV Morphine, IV fluid 500 mls @ 999 mls/hr, IV Vancomycin, IV Lasix, INH Albuterol/Ipratropium Duoneb, IV Protonix, INH Ventolin, INH Spiriva, IH Symbicort, IV Diprivan, IV Norepinephrine, IV Amiodarone, IV Propofol In order to capture the severity of Illness and necessary documentation specificity, please clarify: Cellulitis related to Diabetes Mellitus Type 2 Cellulitis not related to Diabetes Mellitus Type 2 Other, please specify: Unable to Determine (Last Revision: December 2016) MTDD
--- NOTE | 2020-02-19 10:41 | CDI ---
Documentation Clarification Form Date: 02/19/2020 10:36:09 AM From: Yesi LeonABI cosby, CCDS Admit Date: 02/04/2020 04:57:00 PM Patient Name: Deep Anderson Visit Number: [id number] Discharge Date: 02/10/2020 11:45:00 PM ATTENTION: The Clinical Documentation Specialists (CDI) and [facility] Coding Staff appreciate your assistance in clarifying documentation. Please respond to the clarification below the line at the bottom and electronically sign. The CDI & [facility] Coding staff will review the response and follow-up if needed. Please note: Queries are made part of the Legal Health Record. If you have any questions, please contact the author of this message via ITS. Dr. Sergey Celis: Per the 02/05 Pulmonary Consult: "sleep apnea syndrome" is documented without further specificity. History/Risk Factors: Bilateral lower extremity ulceration and cellulitis with Pseudomonas about 6 or 7 months ago, PVD status post revascularization surgery, CKD III, Chronic Atrial Fibrillation, CAD, CHF, COPD, Type 2 DM, Diabetic Neuropathy, Hypertension, Hyperlipidemia, Arthritis, Sleep Apnea, Pulmonary Hypertension, Mitral regurgitation, Chronic Hypoxic Respiratory Failure on 2 L oxygen via nasal cannula, Depression, Former smoker. Clinical Indicators: 74 yo male, presented to the ED via EMS from an ECF with bilateral lower extremity cellulitis, recently admitted a month ago with bilateral lower extremity cellulitis & Sepsis, discharged on po antibiotics. Had multiple skin lesions on lower extremities & 2+ pitting edema. Also dehydrated. Patent went into cardiac arrest with prolonged CPR, intubated on 02/08, made comfort care & on 02/09. VS 02/03: T 97.8, P 79, R 18 - 22, BP 140/67, PO 97 RA - 89 4Lnc. VS 02/08: T 95.6*, P 73, R 24 (sob, cough), BP 143/72, PO 92 on BiPAP LAB 02/03: WBC (9.0), Hgb 10.1*, Hct 32.8*, Lymph 0.7*, K 5.2^, CO2 32^, BUN 48^, Gluc 165^, Alk Phos 130^, CRP 70.6^, Alb 3.3*. COVID: Negative. INFLUENZA A/B: Negative. RAD 11/10 CXR: Low lung volumes & cardiomegaly with suggestion of mild/moderate bilateral alveolar & interstitial edema and/or infiltrates. Correlate for CHF exacerbation. 02/06 CXR: Correlate clinically regarding infection or edema. 02/07 CXR: Pulmonary edema, could relate to heart failure or RDS. Treatment 02/03: O2 4Lnc, advanced to 15L nrb on 02/04. 02/07: BiPAP, 02/08: Intubated. IV Morphine, IV fluid 500 mls @ 999 mls/hr, IV Vancomycin, IV Lasix, INH Albuterol/Ipratropium Duoneb, IV Protonix, INH Ventolin, INH Spiriva, IH Symbicort, IV Diprivan, IV Norepinephrine, IV Amiodarone, IV Propofol In order to capture the severity of Illness and necessary documentation specificity, please clarify: Sleep Apnea Obstructive Sleep Apnea Obesity Hypoventilation Syndrome Other, please specify: Unable to determine (Last Revision: December 2016) unable to determine_ MTDD
--- NOTE | 2020-02-21 09:47 | CDI ---
Documentation Clarification Form Date: 02/19/2020 10:24:00 AM From: Yesi Leon CCS, CCDS Admit Date: 02/04/2020 04:57:00 PM Patient Name: Deep Anderson Visit Number: [id number] Discharge Date: 02/10/2020 11:45:00 PM ATTENTION: The Clinical Documentation Specialists (CDI) and [facility] Coding Staff appreciate your assistance in clarifying documentation. Please respond to the clarification below the line at the bottom and electronically sign. The CDI & [facility] Coding staff will review the response and follow-up if needed. Please note: Queries are made part of the Legal Health Record. If you have any questions, please contact the author of this message via ITS. Dr. Lara Matias: Per the 02/05 History & Physical, the patient has Diabetes Mellitus and Diabetic Neuropathy, History/Risk Factors: Bilateral lower extremity ulceration and cellulitis with Pseudomonas about 6 or 7 months ago, PVD status post revascularization surgery, CKD III, Chronic Atrial Fibrillation, CAD, CHF, COPD, Type 2 DM, Diabetic Neuropathy, Hypertension, Hyperlipidemia, Arthritis, Sleep Apnea, Pulmonary Hypertension, Mitral regurgitation, Chronic Hypoxic Respiratory Failure on 2 L oxygen via nasal cannula, Depression, Former smoker. Clinical Indicators: 74 yo male, presented to the ED via EMS from an ECF with bilateral lower extremity cellulitis, recently admitted a month ago with bilateral lower extremity cellulitis & Sepsis, discharged on po antibiotics. Had multiple skin lesions on lower extremities & 2+ pitting edema. Also dehydrated. Patent went into cardiac arrest with prolonged CPR, intubated on 02/08, made comfort care & on 02/09. VS 02/03: T 97.8, P 79, R 18 - 22, BP 140/67, PO 97 RA - 89 4Lnc. VS 02/08: T 95.6*, P 73, R 24 (sob, cough), BP 143/72, PO 92 on BiPAP LAB 02/03: WBC (9.0), Hgb 10.1*, Hct 32.8*, Lymph 0.7*, K 5.2^, CO2 32^, BUN 48^, Gluc 165^, Alk Phos 130^, CRP 70.6^, Alb 3.3*. COVID: Negative. INFLUENZA A/B: Negative. RAD 11/10 CXR: Low lung volumes & cardiomegaly with suggestion of mild/moderate bilateral alveolar & interstitial edema and/or infiltrates. Correlate for CHF exacerbation. 02/06 CXR: Correlate clinically regarding infection or edema. 02/07 CXR: Pulmonary edema, could relate to heart failure or RDS. Treatment 02/03: O2 4Lnc, advanced to 15L nrb on 02/04. 02/07: BiPAP, 02/08: Intubated. IV Morphine, IV fluid 500 mls @ 999 mls/hr, IV Vancomycin, IV Lasix, INH Albuterol/Ipratropium Duoneb, IV Protonix, INH Ventolin, INH Spiriva, IH Symbicort, IV Diprivan, IV Norepinephrine, IV Amiodarone, IV Propofol In order to capture the severity of Illness and necessary documentation specificity, please clarify: Cellulitis related to Diabetes Mellitus Type 2 Cellulitis not related to Diabetes Mellitus Type 2 Other, please specify: Unable to Determine (Last Revision: December 2016) Unable to Determine MTDD
--- NOTE | 2020-02-26 08:36 | ECHOF ---
Referral Reason:sob MEASUREMENTS -------- HEIGHT: 167.6 cm WEIGHT: 83.9 kg BP: 132/63 RVIDd: 3.6 cm (< 3.3) IVSd: 1.5 cm (0.6 - 1.1) LVIDd: 4.6 cm (3.9 - 5.3) LVPWd: 1.4 cm (0.6 - 1.1) IVSs: 1.9 cm LVIDs: 3.1 cm LVPWs: 1.7 cm LA Diam: 4.1 cm (2.7 - 3.8) Ao Diam: 2.8 cm (2.0 - 3.7) AV Cusp: 2.1 cm (1.5 - 2.6) MV E Hunter: 1.79 m/s MV DecT: 330 ms MV A Hunter: 1.66 m/s MV E/A Ratio: 1.08 AV maxP.87 mmHg AV meanP.33 mmHg RAP: 15.00 mmHg RVSP: 58.91 mmHg FINDINGS -------- This was a technically difficult study with suboptimal views. The left ventricular size is normal. There is moderate concentric left ventricular hypertrophy. O verall left ventricular systolic function is normal with, an EF between 60 - 65 %. The right ventricle is mildly enlarged. The left atrium is mildly dilated. The right atrium was not well visualized. Lumason used Interatrial and interventricular septum intact. There is mild aortic valve sclerosis. There is mild aortic regurgitation. The mitral valve leaflets are moderately thickened. Moderate mitral annular calcification present. [id number] mitral regurgitation is present. The peak and mean MV gradients are 25.70mmHg 11 .16mmHg as measured by doppler, mitral stenosis. MV Repair. Moderate to severe tricuspid regurgitation present. There is severe pulmonary hypertension. The r ight ventricular systolic pressure, as measured by Doppler, is 58.91mmHg. Trace/mild (physiologic) pulmonic regurgitation. The aortic root size is normal. Normal inferior vena cava with less than 50% inspiratory collapse consistent with estimated right atr ial pressure of 15 mmHg. There is no pericardial effusion. CONCLUSIONS -------- 1. The left ventricular size is normal. 2. There is moderate concentric left ventricular hypertrophy. 3. Overall left ventricular systolic function is normal with, an EF between 60 - 65 %. 4. The right ventricle is mildly enlarged. 5. The left atrium is mildly dilated. 6. Lumason used 7. There is mild aortic valve sclerosis. 8. There is mild aortic regurgitation. 9. The mitral valve leaflets are moderately thickened. 10. Moderate mitral annular calcification present. 11. [id number] mitral regurgitation is present. 12. The peak and mean MV gradients are 25.70mmHg 11.16mmHg as measured by doppler. 13. mitral stenosis. 14. MV Repair. 15. Moderate to severe tricuspid regurgitation present. 16. There is severe pulmonary hypertension. 17. The right ventricular systolic pressure, as measured by Doppler, is 58.91mmHg. 18. Trace/mild (physiologic) pulmonic regurgitation. 19. Normal inferior vena cava with less than 50% inspiratory collapse consistent with estimated right atrial pressure of 15 mmHg. 20. There is no pericardial effusion. DELIVERY MANAGER: Vivian Sims RDCS
== END 2020-02-10 23:45 | disposition expired | DRG 871 ==
LOC: EC 14:56 → 6NMEDSUR 16:57 → 3SCARD 02-05 09:03 → 2SICU 02-09 13:42
PROVIDERS: ADMIT Hospitalist; ATTEND Hospitalist
DX: A41.9 Sepsis, unspecified organism (principal); N17.0 Acute kidney failure with tubular necrosis; I50.33 Acute on chronic diastolic (congestive) heart failure; J96.21 Acute and chronic respiratory failure with hypoxia; L03.115 Cellulitis of right lower limb; I13.0 Hypertensive heart and chronic kidney disease with heart failure and stage 1 through stage 4 chronic kidney disease, or unspecified chronic kidney disease; L03.116 Cellulitis of left lower limb; G93.1 Anoxic brain damage, not elsewhere classified; E11.51 Type 2 diabetes mellitus with diabetic peripheral angiopathy without gangrene; R65.20 Severe sepsis without septic shock; Z20.828 Contact with and (suspected) exposure to other viral communicable diseases; I46.9 Cardiac arrest, cause unspecified; R57.0 Cardiogenic shock; I49.01 Ventricular fibrillation; Z51.5 Encounter for palliative care; I95.89 Other hypotension; E78.5 Hyperlipidemia, unspecified; N18.30 Chronic kidney disease, stage 3 unspecified; M19.90 Unspecified osteoarthritis, unspecified site; I27.20 Pulmonary hypertension, unspecified; I25.10 Atherosclerotic heart disease of native coronary artery without angina pectoris; I48.0 Paroxysmal atrial fibrillation; E11.22 Type 2 diabetes mellitus with diabetic chronic kidney disease; E11.41 Type 2 diabetes mellitus with diabetic mononeuropathy; E83.39 Other disorders of phosphorus metabolism; S00.03XA Contusion of scalp, initial encounter; E66.9 Obesity, unspecified; E86.0 Dehydration; D63.1 Anemia in chronic kidney disease; I08.1 Rheumatic disorders of both mitral and tricuspid valves; I44.0 Atrioventricular block, first degree; J44.9 Chronic obstructive pulmonary disease, unspecified; I87.2 Venous insufficiency (chronic) (peripheral); F32.9 Major depressive disorder, single episode, unspecified; H54.7 Unspecified visual loss; R53.81 Other malaise; G47.33 Obstructive sleep apnea (adult) (pediatric); S00.81XA Abrasion of other part of head, initial encounter; W19.XXXA Unspecified fall, initial encounter; Z79.4 Long term (current) use of insulin; Z79.02 Long term (current) use of antithrombotics/antiplatelets; Z79.82 Long term (current) use of aspirin; Z79.899 Other long term (current) drug therapy; Z95.5 Presence of coronary angioplasty implant and graft; Z95.2 Presence of prosthetic heart valve; Z95.1 Presence of aortocoronary bypass graft; Z87.891 Personal history of nicotine dependence; Z87.01 Personal history of pneumonia (recurrent); Z82.49 Family history of ischemic heart disease and other diseases of the circulatory system; Z80.0 Family history of malignant neoplasm of digestive organs; Z90.89 Acquired absence of other organs; Z98.890 Other specified postprocedural states; Y92.129 Unspecified place in nursing home as the place of occurrence of the external cause; Z99.81 Dependence on supplemental oxygen
CPT/HCPCS: 36415; 36600; 71045; 71046; 80048; 80053; 80202; 82550; 82728; 82805; 83605; 83615; 83735; 83880; 84100; 84145; 85025; 85027; 85379; 85384; 85610; 85730; 86140; 87040; 87070; 87205; 87502; 92950; 93005; 93306; 94002; 94003; 94640; 94660; 96361; 96365; 96366; 96375; 96376; 99285